=== PATIENT | male | born 1950 | race Caucasian/White ===

== ENCOUNTER → 2017-05-19 | Outpatient (CLI) | payer MEDICARE ==
[~2017-05-19] MED LIST: HYDR-3533 PO; METO50TA PO; TAMS0.4C4 PO; VIIB40TA PO
[2017-05-19 11:06] LABS: AUTOMATED NEUTROPHIL # 7.2 TH/MM3 (1.8-7.7); BASOPHIL # 0.1 TH/MM3 (0-0.2); BASOPHIL % 1.2 % (0.0-2.0); EOSINOPHIL # 0.1 TH/MM3 (0-0.4); EOSINOPHIL % 1.5 % (0.0-4.0); HEMATOCRIT 40.1 % (39.0-51.0); HEMO FLAGS DIFF FINAL; LYMPH % 8.4 % (9.0-44.0); LYMPHOCYTE # 0.8 TH/MM3 (1.0-4.8); MEAN CELL VOLUME 88.1 FL (80.0-100.0); MEAN CORPUSCULAR HEMOGLOBIN 28.8 PG (27.0-34.0); MEAN CORPUSCULAR HGB CONC 32.7 % (32.0-36.0); NEUT % 78.9 % (16.0-70.0); PLATELET COUNT 331 TH/MM3 (150-450); RED BLOOD COUNT 4.55 MIL/MM3 (4.50-5.90); RED CELL DISTRIBUTION WIDTH 15.9 % (11.6-17.2); WHITE BLOOD COUNT 9.1 TH/MM3 (4.0-11.0)
--- NOTE | 2017-05-19 11:16 | RADRPT ---
EXAM DATE/TIME: 05/19/2017 10:57 [place] COMPARISON: No previous studies available for comparison. INDICATIONS : Evaluate for peneumonia, pneumothorax, or communicable disease. Pre op for colectomy. MEDICAL HISTORY : None. SURGICAL HISTORY : None. ENCOUNTER: Initial ACUITY: 1 day PAIN SCORE: 0/10 LOCATION: chest FINDINGS: PA and lateral views of the chest demonstrate the lungs to be symmetrically aerated without evidence of mass, infiltrate or effusion. The cardiomediastinal contours are unremarkable. Osseous structure s demonstrate degenerative changes in thoracic spine but are otherwise intact. CONCLUSION: 1. No acute cardiopulmonary findings. Bao Lora MD on May 19, 2017 at 11:13 Board Certified Radiologist. This report was verified electronically.
[2017-05-19 11:21] LABS: APTT (PATIENT) 28.9 SEC (24.3-30.1); PROTHROMBIN TIME - PATIENT 11.2 SEC (9.8-11.6)
[2017-05-19 11:23] LABS: ANION GAP 6 MEQ/L (5-15); AST (GOT) 6 U/L (15-37); BICARBONATE 25.9 MEQ/L (21.0-32.0); BLOOD UREA NITROGEN 22 MG/DL (7-18); CHLORIDE 107 MEQ/L (98-107); GLOMERULAR FILTRATION RATE 88 ML/MIN (>89); GLUCOSE,FASTING 94 MG/DL (74-99); POTASSIUM 4.1 MEQ/L (3.5-5.1); SODIUM (NA) 139 MEQ/L (136-145)
[2017-05-19 11:24] LABS: ALT (GPT) 10 U/L (12-78)
[2017-05-19 11:26] LABS: ALKALINE PHOSPHATASE 106 U/L (45-117); TOTAL BILIRUBIN ADULT 0.3 MG/DL (0.2-1.0)
[2017-05-19 12:04] LABS: BLOOD, URINE NEG (NEG); COMMENT (UR) CULT NOT INDICATED; CULTURE IF INDICATED CULT NOT INDICATED; GLUCOSE,URINE NEG (NEG); HYALINE CAST, URINE 3 /lpf (RARE); KETONE, URINE NEG (NEG); MUCUS URINE MOD /lpf (OCC); NITRITE,URINE NEG (NEG); PH, URINE 5.5 (5.0-8.5); SQUAMOUS EPITHELIAL CELL URINE <1 /hpf (0-5); URINE COLOR YELLOW (YELLW/STRAW)
--- NOTE | 2017-05-19 20:10 | EKG ---
Date Performed: 05/19/2017 Time Performed: 10:23:30 PTAGE: 67 years EKG: Sinus rhythm INDETERMINATE AXIS POSSIBLE RIGHT VENTRICULAR CONDUCTION DELAY ABNORMAL ECG NO PREVIOUS TRACING DOCTOR: Harpreet Amos Interpretating Date/Time 05/19/2017 20:09:30
== END ==
LOC: CPRE 09:58
PROVIDERS: ATTEND Colon & Rectal Surgery
DX: Z01.812 Encounter for preprocedural laboratory examination (principal); Z01.810 Encounter for preprocedural cardiovascular examination; Z01.811 Encounter for preprocedural respiratory examination; C20 Malignant neoplasm of rectum; Z79.01 Long term (current) use of anticoagulants
CPT/HCPCS: 36415; 71020; 80053; 81001; 82378; 85025; 85610; 85730; 93005

== ENCOUNTER 2017-05-26 10:03 | Inpatient (IN) | payer MEDICARE ==
[~2017-05-26] VITALS: Ht 170.2 cm; Wt 60.0 kg
[~2017-05-26 10:03] MED LIST changes: -HYDR-3533 PO
--- NOTE | 2017-05-26 10:09 | MH ---
cc: MICHAEL MARTINEZ MD, AJAY K. M.D. RIVERA, MARI DR. TOLLAND, JOHN T. M.D. NAIR, SANTOSH DATE OF ADMISSION: 05/26/2017 CHIEF COMPLAINT: Rectal cancer. HISTORY OF PRESENT ILLNESS: This patient was first referred to me on January 25, 2017, the patient was a 66 year old male at that time, referred for a rectal cancer, they had just started radiation therapy and chemotherapy with Dr. Michael Martinez and Dr. Tobias Noel. His colonoscopy was done on December 03, 2016. Showing rectal adenocarcinoma. The patient completed his radiation therapy and chemotherapy on March 02, 2017. The patient has been very consciousness with his follow up with me. At his initial examination he had a bulky circumferential carcinoma of the rectum that went fairly low anteriorly. On my recent examination about six weeks ago I could still palpate the lesion, upper extent of my finger on digital examination it was circumferential, it was quite fixed posteriorly, anteriorly and laterally. It was still narrow and I could not put my finger through the lesion. It did feel as though the lesion was just above his prostate gland anteriorly which was small in size as well. Sigmoidoscopy was done, it was limited due to a lot of stool. As I mentioned the completion dates on his radiation therapy, chemotherapy was starting with January 12, 2017 and completed including the reduced field rectal boost on March 02, 2017. PAST MEDICAL HISTORY/FAMILY HISTORY/SOCIAL HISTORY/REVIEW OF SYSTEMS: All negative except that he smokes a pack per day for 40 years. MEDICATIONS: 1. Metoprolol 2. Tamsulosin 3. Vilazodone PHYSICAL EXAMINATION: IN GENERAL: A well-developed thin male, no acute distress. SKIN: The skin is warm and dry. HEAD, EARS, EYES, NOSE, AND THROAT: Extraocular muscles intact. NECK: The neck is supple. CHEST: The abdomen is flat, soft, nontender, no masses. RECTAL EXAMINATION: Revealed a circumferential rectal carcinoma with fixation, circumferentially, deletion is topically anterior above the prostate. EXTREMITIES: Range of motion are grossly normal. ASSESSMENT: Rectal carcinoma. PLAN: Recommend low anterior resection with possible colon anastomosis and diverting ileostomy. I told the patient I felt there was a 50% chance that this could be achieved, depending on the level of fixation and ability to resect the lesion. Otherwise I told him that a possible abdominal perineal resection with permanent colostomy could be possible. He understands all the risks, benefits and alternatives and wishes to proceed. MD ALAN Khan/breonna /9:27 AM /9:35 AM
[2017-05-26] MEDS ORDERED: MORPHINE SULFATE 4 MG/ML INJ IV ONE (12:00)
[2017-05-26] MEDS ORDERED: NORMOSOL R INJ 1,000 ML IV ONE (12:00)
[2017-05-26] MEDS ORDERED: LACTATED RINGER'S 1000 ML INJ 2,000 ML IV ONE (12:00)
[2017-05-26] MEDS ORDERED: DEXAMETHASONE SOD PHOS 4 MG/ML VIAL IV ONE (12:00)
[2017-05-26] MEDS ORDERED: DEXT 5%-NACL 0.9% 1000 ML INJ 1,000 ML IV SCH (12:00)
[2017-05-26] MEDS ORDERED: ONDANSETRON HCL 4 MG/2 ML VIAL IV PUSH ONE (12:00)
[2017-05-26] MEDS ORDERED: POVIDONE IODINE 5% (ANTISEPSIS KIT) 4 APPLICATIONS EACH NARE PRN (12:15)
[2017-05-26] MEDS ORDERED: CHLORHEXIDINE GLUCONATE 2 % 1 PACK (2 CLOTHS) TOPICAL PRN (12:15)
[2017-05-26] MEDS ORDERED: METOPROLOL TARTRATE 25 MG TAB PO PRN (12:15)
[2017-05-26] MEDS ORDERED: SODIUM CHLORID 0.9% 500 ML IV PRN (12:15)
[2017-05-26] MEDS ORDERED: METRONIDAZOLE 500 MG/100 ML ISONTONIC SOLN IV SCH (12:15)
[2017-05-26] MEDS ORDERED: LACTATED RINGER'S 1000 ML IV PRN (12:15)
[2017-05-26] MEDS ORDERED: INSULIN HUMAN REGULAR 1,000 UNITS/10 ML VIAL SQ PRN (12:15)
[2017-05-26] MEDS ORDERED: ALVIMOPAN 12 MG CAPSULE - On Call PO SCH (12:15)
[2017-05-26] MEDS ORDERED: ceFAZolin 1,000 MG/NS 100 ML IV SCH ×2 (12:15)
[2017-05-26] MEDS ORDERED: ACETAMINOPHEN 1000 MG/100 ML 100 ML IV ONE (13:07)
[2017-05-26] MEDS ORDERED: FAMOTIDINE 20 MG/2 ML VIAL ONE (13:07)
--- NOTE | 2017-05-26 13:12 | PD.HP.UP ---
H&P Update Note The Pre-Admit History and Physical Examination regarding the above named patient was reviewed (including, but not limited to, vital signs, heart, lungs, co-morbid conditions), and upon re-examination it is noted that: the patient's condition has not significantly changed since the last examination. Luca Geiger MD May 26, 2017 13:12
--- NOTE | 2017-05-26 14:20 | PD.OP ---
Operative Report Date of Surgery: May 26, 2017 Preoperative Diagnosis: Colon cancer Postoperative Diagnosis: Same Procedure: Cystoscopy with bilateral ureteral catheter placement Anesthesia: YUDY Surgeon: Augustine Pelayo Wafer Mounter(s): None Resident Surgeon: None Operation and Findings: 67-year-old male with findings of large colon mass consistent with colon cancer. Request for made for bilateral ureteral catheter placement preoperatively. Patient is brought to the operating room and identified by myself as Luca Lack[place]axen. His placement dorsal lithotomy position, prepped and draped in usual sterile fashion, received preprocedure antibiotics and general endotracheal tube anesthesia was administered. 22 Niuean cystoscope was inserted in the bladder and coaptation lobes the prostate were identified and some trabeculations were identified within the bladder. No other abnormalities were identified. Left ureteral orifice was cannulated with 5 Niuean open-ended catheter and a 0.35 sensor wire was used to assist its passage up into the left kidney. The right ureteral orifice was identified and a 5 Niuean catheter was inserted on the right side without any difficulty. 16 Niuean Han was inserted and the catheters were attached a Han. He tolerated the procedure well. Augustine Pelayo DO May 26, 2017 14:20
--- NOTE | 2017-05-26 15:43 | PD.OP ---
Operative Report Date of Surgery: May 26, 2017 Preoperative Diagnosis: Transected left ureter Postoperative Diagnosis: Same Procedure: Repair of left ureter with 3 anastomosis and left double-J stent insertion Surgeon: Augustine Pelayo Health Care Facilities Inspector(s): Dr. Collins and Dr. May Resident Surgeon: None Operation and Findings: 67-year-old male who was undergoing a left colon resection for a large sigmoid colon tumor which was abutting the left ureter. During the dissection the left ureter was inadvertently opened on its most medial aspect. The ureter was not entirely transected throughout. Urology was consult for placement of a left ureteral stent with repair and reanastomosis of the left ureter. The left ureter had been dissected out nicely by both Dr. Diana and Dr. May and the ureteral catheter was in place. This was removed in an antegrade fashion and then a 6 Georgian 22 cm left double-J stent was passed up to the proximal ureter over a wire and left in position. The wire was then removed and passed through the middle aspect of the stent through a small hole and then was fed down into the distal ureter. The wire was then removed leaving the stent in place. The defect was approximately 4 cm in length and both the proximal and distal end of the ureter was freed up to provide adequate length. 4-0 interrupted Chromic sutures were then used to close the ureter in an interrupted fashion. The closure appeared to be watertight. Adjacent mesenteric tissue was laid over the ureter and sewn down to reinforce the closure. The patient will maintain Han catheter for the next few days and then it indwelling left double-J stent warming in for 6 weeks. The patient will undergo a cystoscopy with left retrograde pullout study in 6 weeks. Augustine Pelayo DO May 26, 2017 15:43
[2017-05-26] MEDS ORDERED: SUGAMMADEX SODIUM 200 MG/2 ML VIAL IV PUSH ONE ×2 (16:26)
[2017-05-26] MEDS ORDERED: POTASSIUM CHLOR 20 MEQ PREMIX 100 ML IV PRN (17:00)
[2017-05-26] MEDS ORDERED: SODIUM CHLORIDE 0.9% FLUSH 10 ML FLUSH IV FLUSH PRN (17:00)
[2017-05-26] MEDS ORDERED: ENALAPRILAT 1.25 MG/ML VIAL IV PRN (17:00)
[2017-05-26] MEDS ORDERED: Post-op Orders (for Pharmacy) MISC XX ONE (17:00)
[2017-05-26] MEDS ORDERED: POTASSIUM CHLOR 40 MEQ PREMIX 100 ML IV PRN (17:00)
[2017-05-26] MEDS ORDERED: ONDANSETRON HCL 4 MG/2 ML VIAL IV PRN (17:00)
[2017-05-26] MEDS ORDERED: ZOLPIDEM TARTRATE 5 MG TAB PO PRN (17:00)
[2017-05-26] MEDS ORDERED: ACETAMINOPHEN/HYDROcodone 325 MG/5 MG TAB PO PRN (17:00)
[2017-05-26] MEDS ORDERED: NALOXONE HCL 0.4 MG/ML AMP IV PUSH PRN (17:00)
[2017-05-26] MEDS ORDERED: BENZOCAINE 6 MG/MENTHOL 10 MG LOZENGE BUCCAL PRN (17:00)
[2017-05-26] MEDS: D5-LR + KCL 20 MEQ INJ 1,000 ML IV SCH ×2 (17:24→21:12)
[2017-05-26] MEDS: MORPHINE SULFATE 30 MG/30 ML PCA IV SCH (17:24)
[2017-05-26] MEDS ORDERED: *morphine SULFATE 8 MG/ML PERIprocedure ONLY ONE ×2 (17:55→18:03)
[2017-05-26] MEDS: METOCLOPRAMIDE HCL 10 MG/2 ML VIAL IVS SCH ×2 (18:00→23:57)
[2017-05-26 18:21] LABS: AUTOMATED NEUTROPHIL # 11.3 TH/MM3 (1.8-7.7); BASOPHIL # 0.1 TH/MM3 (0-0.2); BASOPHIL % 0.7 % (0.0-2.0); EOSINOPHIL % 0.1 % (0.0-4.0); HEMATOCRIT 32.3 % (39.0-51.0); HEMO FLAGS DIFF FINAL; LYMPH % 2.2 % (9.0-44.0); LYMPHOCYTE # 0.3 TH/MM3 (1.0-4.8); MEAN CELL VOLUME 88.1 FL (80.0-100.0); MEAN CORPUSCULAR HEMOGLOBIN 29.8 PG (27.0-34.0); MEAN CORPUSCULAR HGB CONC 33.8 % (32.0-36.0); MONO % 3.9 % (0.0-8.0); NEUT % 93.1 % (16.0-70.0); PLATELET COUNT 278 TH/MM3 (150-450); RED BLOOD COUNT 3.67 MIL/MM3 (4.50-5.90); RED CELL DISTRIBUTION WIDTH 15.7 % (11.6-17.2); WHITE BLOOD COUNT 12.1 TH/MM3 (4.0-11.0)
[2017-05-26 18:46] LABS: BICARBONATE 24.1 MEQ/L (21.0-32.0); POTASSIUM 3.8 MEQ/L (3.5-5.1)
[2017-05-26 19:00] VITALS: BP 111/66; PULSE 81; PULSE 89; TEMP 97.5; O2SAT 95
[2017-05-26 19:02] LABS: CALCIUM-PROTEIN CORRECTED 8.2 MG/DL (8.5-10.1)
[2017-05-26] MEDS ORDERED: DO NOT ADM ANY ANTICOAGULANT DRUGS PRN (19:30)
[2017-05-26 20:00] VITALS: PULSE 88
[2017-05-26 21:00] VITALS: PULSE 80
[2017-05-26] MEDS ORDERED: [UNRECOGNIZED DRUG - OTHER] PO SCH (21:00)
[2017-05-26] MEDS ORDERED: NON-FORMULARY DRUG (Vilazodone (Viibryd) 40 MG) PO SCH (21:00)
[2017-05-26] MEDS: FUROSEMIDE 20 MG/2 ML VIAL IV SCH (21:13)
[2017-05-26] MEDS: TAMSULOSIN HCL 0.4 MG CAP PO SCH (21:13)
[2017-05-26] MEDS: METOPROLOL TARTRATE 50 MG TAB PO SCH (21:13)
[2017-05-26] MEDS: SODIUM CHLORIDE 0.9% FLUSH 10 ML FLUSH IV FLUSH SCH (21:13)
[2017-05-26] MEDS: metroNIDAZOLE 500 MG INJ 100 ML IV SCH (21:13)
[2017-05-26] MEDS: PCA - TOTAL MG MORPHINE DELIVERED PER SHIFT SCH (21:53)
[2017-05-26 22:00] VITALS: PULSE 74
[2017-05-26 23:00] VITALS: BP 103/56; PULSE 68; PULSE 74; TEMP 97.3; O2SAT 97
[2017-05-26] MEDS: [UNRECOGNIZED DRUG - OTHER] PO SCH (23:56)
[2017-05-27] VITALS (26 sets, daily range): BP systolic 99–126; BP diastolic 56–80; PULSE 56–92; RESP 16–18; TEMP 98.1–98.7; O2SAT 93–96
--- NOTE | 2017-05-27 00:09 | MP ---
cc: CORNELL LUQUE,KEREN CASH M.D., MD DATE OF SURGERY 05/26/2017 PREOPERATIVE DIAGNOSIS Rectal carcinoma. POSTOPERATIVE DIAGNOSIS 1. Rectal carcinoma. 2. hepatic metastasis. PROCEDURE 1. Rectosigmoidectomy with low anterior resection/coloanal anastomosis. 2. Resection and reanastomosis of the left ureter. 3. Wedge resection of hepatic metastasis. 4. Mobilization of the splenic flexure. 5. Diverting closed loop ileostomy. ANESTHESIA General endotracheal. SURGEON Dr. Geiger CARGO STATION WORKER Dr. Romero ESTIMATED BLOOD LOSS 500 cc. OPERATIVE FINDINGS This patient was initially seen with a diagnosis of a large rectal cancer and had preoperative radiation therapy and chemotherapy completed about 11 weeks ago. The patient initially had very small stools but then his stools started enlarging during the treatment but on preoperative examination by me in the office he still had a bulky fixed lesion posteriorly, laterally and anteriorly just above the prostate and the lumen was quite small. Initially, it was a long lesion, approximately 10 cm when the patient underwent endoscopy. Preoperative studies including PET scan and MRI and CT scan did not show any evidence of metastatic disease. At surgery exploration of the abdominal cavity revealed that the colon was palpably normal other than the rectal cancer and the small bowel was palpably normal as well. He did have a palpably normal gallbladder and just above the gallbladder really in the gallbladder fossa was a 1 cm hepatic metastasis. The fundus of the gallbladder was dissected free of the underside of the liver and a wedge resection of this hepatic metastasis was done. A full rectosigmoidectomy was done with a double stapled coloanal anastomosis and a fully diverting loop ileostomy was done. Dr. Augustine Pelayo placed bilateral ureteral catheters to start the case and then came back in and placed a double-J stent in the left ureter and reanastomosed the left ureter which was partially resected. OPERATIVE TECHNIQUE The patient was placed on the OR table in the supine position after adequate general endotracheal anesthesia. The legs were placed in the perineal lithotomy position. The abdomen and perineum were prepped and draped in usual manner. Midline incision was made from the pubis to the xiphoid taken down to the linea alba and the peritoneal cavity was entered with the above-mentioned findings. The lesion was in the midportion of the rectum. It was quite fixed to all the pelvic sidewall and posteriorly. Dr. Augustine Pelayo came in and placed bilateral ureteral catheters and had some difficulty placing the left one due to the lesion although there was no hydronephrosis. Once the catheters were placed we could palpate both ureters above the lesion but when we were dissecting down to the lesion we no longer could palpate the ureters or the stents. Our attention was turned to the sigmoid colon, the descending colon was mobilized along its peritoneal reflection and the splenic flexure was fully mobilized as well. Once this was done the superior hemorrhoidal vessels were doubly clamped, cut and doubly ligated with 0 Vicryl ligature and the inferior mesenteric vein was clamped, cut and ligated as well. The lateral pelvic peritoneum was incised bilaterally at the pelvic outlet and then the retrorectal space was entered with electrocautery and the dissection was taken down posteriorly in the avascular plane. The lesion was quite fixed with desmoplastic reaction posteriorly to the sacrum and laterally in the pelvis. We are able to slowly dissect down posteriorly and laterally mobilizing the lesion posteriorly. Laterally on the right side we are able to scythe along the right side of the pelvis palpating the ureteral catheter on the right side up to the tumor and then cutting through fibrotic, presumably desmoplastic tissue and dissecting the lesion off of the right ureter without any injury to the ureter. On the left side of we were again able to palpate the ureter and the ureteral catheter above the lesion and in entering the pelvis scything along the pelvis. We thought that we were able to get the lesion off of the ureter, in doing so the ureter was scythed on one wall and the stent was visible. It seemed to be tumor around this portion of the ureter and the dissection was carried out fully mobilizing the rectum down to the pelvic floor and a total mesenteric excision of the rectal mesentery was done. Once the posterior and lateral dissection was done the anterior dissection was taken and the right vas deferens was identified, after first dissecting anterior to the vas we could find the plane between the vas deferens and the rectum and the plane between the prostate and the rectum and was dissected with electrocautery to the pelvic floor. Once this was done the contour stapling device was used to staple close and divide the rectum just above the pelvic floor. The specimen was brought up out of the pelvis en bloc with a total mesenteric excision as mentioned. Next, Dr. Augustine Pelayo was called back into the room to inspect the ureter which had a portion of one wall excised and the proximal part of the ureter seemed to have tumor encasing it and the distal end of the proximal part was excised for about a centimeter. Also portion of the inferior portion of the ureter was excised up. The ureter was mobilized superiorly and inferiorly and then Dr. Augustine Pelayo placed a double-J stent up into the renal pelvis and then down into the bladder and then reanastomosed the ureter with interrupted 4-0 chromic sutures. He will dictate his portion of the procedure. Once this was completed, we went ahead and plan on the anastomosis using an Ethicon 29 EEA stapling device and the trocar was brought out through the central portion of the low rectal staple line and the anvil was placed in the sigmoid after the sigmoid mesentery was clamped, cut and ligated and the sigmoid was divided after placing a pursestring stapling device. Once that anvil was placed and the pursestring was tied the anvil was connected to the stapling instrument and the instrument was connected, closed and fired creating the circular anastomosis. There was no tension on the anastomosis. The blood supply was excellent. Dr. Romero then did proctosigmoidoscopy examination insufflating air into the rectum with saline solution in the pelvis and no air leaks were identified. Hemostasis was maintained throughout with electrocautery and ligature. A place for ileostomy was created in the right lower quadrant creating a stoma site in the lateral portion of the rectus muscle and the mesentery of the small bowel chosen for the stoma was cleared from the bowel for approximately 2 cm. Next, our attention was turned to the liver and the fundus of the gallbladder was dissected free of the superior liver bed and then the 1 cm liver metastases was excised in a wedge shape with electrocautery. The gallbladder was left intact and hemostasis was maintained with electrocautery once again. A piece of fibrillar was placed on the fundus of the gallbladder to stop the oozing. Next, a drain was placed through a separate stab wound in the left lower quadrant and placed on the retroactive space. The ileostomy was brought out through the stoma site and the abdominal cavity was irrigated thoroughly with approximately 3-4 liters of saline solution and aspirated dry. Hemostasis was again inspected and the bowels were replaced in abdominal cavity in an arrt technologist manner and then the abdominal cavity was closed in a single layer using a double-stranded #1 PDS in the midline. The subcutaneous tissue was irrigated with a liter and half of saline solution and the skin was closed with skin alethea. The ileostomy was matured with interrupted 3-0 Vicryl sutures creating an end loop ileostomy and the distal end was stapled closed with a TX 60 Green staple height stapler since it had been previously opened. A 57-mm appliance was placed. Sponge, needle and instrument counts were poor as correct. Dressings were applied. The patient tolerated the procedure well and left the operating room in good condition. MD ALAN Khan/PARAM /5:21 PM /11:32 PM
[2017-05-27] MEDS: D5-LR + KCL 20 MEQ INJ 1,000 ML IV SCH ×4 (03:00→15:56)
[2017-05-27] MEDS: metroNIDAZOLE 500 MG INJ 100 ML IV SCH ×2 (04:59→11:50)
[2017-05-27] MEDS: METOCLOPRAMIDE HCL 10 MG/2 ML VIAL IVS SCH ×3 (04:59→17:42)
[2017-05-27] MEDS: PCA - TOTAL MG MORPHINE DELIVERED PER SHIFT SCH ×3 (06:00→21:20)
[2017-05-27 06:25] LABS: AUTOMATED NEUTROPHIL # 13.2 TH/MM3 (1.8-7.7); BASOPHIL % 0.1 % (0.0-2.0); HEMATOCRIT 31.1 % (39.0-51.0); HEMO FLAGS DIFF FINAL; LYMPH % 1.9 % (9.0-44.0); LYMPHOCYTE # 0.3 TH/MM3 (1.0-4.8); MEAN CELL VOLUME 88.5 FL (80.0-100.0); MEAN CORPUSCULAR HEMOGLOBIN 28.6 PG (27.0-34.0); MEAN CORPUSCULAR HGB CONC 32.3 % (32.0-36.0); MONO % 6.6 % (0.0-8.0); NEUT % 91.4 % (16.0-70.0); PLATELET COUNT 289 TH/MM3 (150-450); RED BLOOD COUNT 3.51 MIL/MM3 (4.50-5.90); RED CELL DISTRIBUTION WIDTH 15.6 % (11.6-17.2); WHITE BLOOD COUNT 14.5 TH/MM3 (4.0-11.0)
[2017-05-27 06:50] LABS: POTASSIUM 4.7 MEQ/L (3.5-5.1)
[2017-05-27] MEDS: FUROSEMIDE 20 MG/2 ML VIAL IV SCH ×2 (08:51→21:00)
[2017-05-27] MEDS: METOPROLOL TARTRATE 50 MG TAB PO SCH ×2 (08:51→21:01)
[2017-05-27] MEDS: ALVIMOPAN 12 MG CAPSULE - Post-op dosing PO SCH ×2 (08:51→21:00)
[2017-05-27] MEDS: PANTOPRAZOLE SODIUM 40 MG VIAL IVP SCH (08:51)
[2017-05-27] MEDS: SODIUM CHLORIDE 0.9% FLUSH 10 ML FLUSH IV FLUSH SCH ×2 (08:52→21:00)
[2017-05-27] MEDS ORDERED: D5-LR + KCL 20 MEQ INJ 1,000 ML IV SCH (11:58)
--- NOTE | 2017-05-27 12:09 | HHI.PR ---
Subjective Patient symptoms today Pt seen and examined. Feels well. Urine blood tinged. Objective Vital Signs Vital Signs Date Time Temp Pulse Resp B/P (MAP) Pulse Ox O2 Delivery O2 Flow Rate FiO2 05/27/17 11:44 98.2 63 18 99/56 (70) 93 05/27/17 11:03 62 05/27/17 10:00 62 05/27/17 09:00 63 05/27/17 08:00 62 05/27/17 07:30 98.3 60 18 106/80 (89) 96 05/27/17 07:30 58 05/27/17 06:28 56 05/27/17 06:00 20 05/27/17 05:35 56 05/27/17 04:00 58 05/27/17 03:00 98.4 64 109/57 (74) 94 05/27/17 03:00 61 05/27/17 02:00 60 05/27/17 01:00 60 05/27/17 00:00 66 05/26/17 23:00 68 05/26/17 23:00 97.3 74 103/56 (72) 97 05/26/17 22:00 74 05/26/17 21:53 16 05/26/17 21:00 80 05/26/17 20:44 Nasal Cannula 3.00 05/26/17 20:00 88 05/26/17 19:00 97.5 81 111/66 (81) 95 05/26/17 19:00 89 05/26/17 18:30 97.6 87 22 118/57 (77) 94 Nasal Cannula 3 05/26/17 18:15 82 13 120/57 (78) 94 Nasal Cannula 3 05/26/17 18:00 78 15 124/58 (80) 96 Nasal Cannula 3 05/26/17 17:45 80 17 130/61 (84) 94 Nasal Cannula 3 05/26/17 17:30 80 15 128/60 (82) 97 Nasal Cannula 3 05/26/17 17:24 16 05/26/17 17:15 78 15 134/63 (86) 98 Nasal Cannula 3 05/26/17 17:00 81 18 122/63 (82) 98 Nasal Cannula 3 05/26/17 16:53 97.5 82 18 122/62 (82) 98 Nasal Cannula 3 Intake & Output 05/27/17 05/27/17 07:00 19:00 Intake Total 3840 ml Output Total 1280 ml Balance 2560 ml Intake Oral 240 ml IV Total 3600 ml Output Urine Total 1200 ml Drainage Total 80 ml Result Diagram: 05/27/1760705/27/17607 Objective Remarks Abd:soft,incisional tenderness Han: blood tinged urine. Medications and IVs Current Medications Medications (Trade) Dose Ordered Sig/[place] Route Start Time Stop Time Status Last Admin Lactated Ringer's 1,000 ml @ 30 mls/hr Q24H PRN IV 05/26/17 12:15 05/29/17 12:14 05/26/17 11:45 Sodium Chloride 500 ml @ 30 mls/hr [id number] PRN IV 05/26/17 12:15 05/29/17 12:14 (Lopressor) 25 mg FILLER SHREDDER MACHINE PRN PO 05/26/17 12:15 05/29/17 12:14 (Betadine 5% Antisepsis Kit) 1 applic FILLER SHREDDER MACHINE PRN EACH NARE 05/26/17 12:15 05/29/17 12:14 05/26/17 11:55 (Chlorhexidine 2% Cloth) 3 pack FILLER SHREDDER MACHINE PRN TOPICAL 05/26/17 12:15 05/29/17 12:14 05/26/17 11:25 (NovoLIN R INJ) See Protocol Table ... FILLER SHREDDER MACHINE PRN SQ 05/26/17 12:15 05/29/17 12:14 (Entereg) 12 mg FILLER SHREDDER MACHINE PO 05/26/17 12:15 05/29/17 12:14 05/26/17 12:13 (Entereg) 12 mg BID PO 05/27/17 09:00 06/02/17 21:01 05/27/17 08:51 Cefazolin Sodium 1000 mg/Sodium Chloride 100 ml @ 200 mls/hr FILLER SHREDDER MACHINE IV 05/26/17 12:15 05/29/17 12:14 05/26/17 12:23 Metronidazole 100 ml @ 100 mls/hr FILLER SHREDDER MACHINE IV 05/26/17 12:15 05/27/17 12:14 05/26/17 12:30 Potassium Cl/ Dextrose/Lact Ringer's 1,000 ml @ 0 mls/hr Q0M IV 05/26/17 16:59 05/27/17 08:51 (NS Flush) 2 ml UNSCH PRN IV FLUSH 05/26/17 17:00 (NS Flush) 2 ml BID IV FLUSH 05/26/17 21:00 05/27/17 08:52 Metronidazole 100 ml @ 200 mls/hr Q8H IV 05/26/17 20:00 05/27/17 12:29 05/27/17 11:50 ([place]ora 5-325 Mg) 1 tab Q4H PRN PO 05/26/17 17:00 ([place]ora 5-325 Mg) 2 tab Q4H PRN PO 05/26/17 17:00 (Protonix Inj) 40 mg DAILY IVP 05/27/17 09:00 05/27/17 08:51 (Reglan Inj) 10 mg Q6HR IVS 05/26/17 18:00 05/27/17 04:59 (Zofran Inj) 4 mg Q6H PRN IV 05/26/17 17:00 (Vasotec Inj) 1.25 mg Q4H PRN IV 05/26/17 17:00 (Ambien) 5 mg HS PRN PO 05/26/17 17:00 (Chloraseptic [place]ota) 1 lozenge UNSCH PRN BUCCAL 05/26/17 17:00 (Lasix Inj) 20 mg Q12HR IV 05/26/17 21:00 05/29/17 09:01 05/27/17 08:51 Potassium Chloride 100 ml @ 50 mls/hr UNSCH PRN IV 05/26/17 17:00 Potassium Chloride 100 ml @ 25 mls/hr UNSCH PRN IV 05/26/17 17:00 (Narcan Inj) 0.4 mg UNSCH PRN IV PUSH 05/26/17 17:00 (Morphine 1 Mg/ ml HEEL COVER SPLITTER) 30 mg UNSCH IV 05/26/17 17:00 05/26/17 17:24 HEEL COVER SPLITTER Dosage Infused (Pha) 1 Q8HR .XX 05/26/17 17:00 05/27/17 06:00 (Lopressor) 50 mg BID PO 05/26/17 21:00 05/27/17 08:51 (Flomax) 0.4 mg HS PO 05/26/17 21:00 05/26/17 21:13 Miscellaneous Information ALL NURSING DEPARTME... UNSCH PRN .XX 05/26/17 19:30 05/27/17 19:29 Patient Own Medication PT OWN MED: [id number]... HS PO 05/26/17 22:00 05/26/17 23:56 Assessment and Plan Assessment and Plan Stable s/p Ex-lap with colon resection and repair of right transected ureter Void trial in the next few days Will need cysto with left RPG and stent removal in 6 weeks. Augustine Pelayo DO May 27, 2017 12:09
--- NOTE | 2017-05-27 16:13 | PD.WCN.NOT ---
Wound Consult Description: New Ostomy Teaching for temporary ileostomy and supplies per Dr Geiger Communicated with: Patient Patient at bedside MARII Morton RN Recommendation: Observe staff open pouch, empty pouch, close pouch. Read information in ileostomy kit provided regarding diet, food, supplies, support groups, clothing and ostomy appliances available. Write down any questions you may have regarding ileostomy or supplies etc. Additional Information: Patient seen on [facility] for ostomy assessment and teaching. Ostomy Type: Ileostomy Surgeon: Luca Geiger MD Date of Surgery: May 26, 2017 Complete: Education materials Educated patient on: Observe staff open pouch, empty pouch, close pouch. Read information in ileostomy kit provided regarding diet, food, supplies, support groups, clothing and ostomy appliances available. Write down any questions you may have regarding ileostomy or supplies etc. Additional information Ileostomy noted to right abdomen is pale pink, moist, round, long protruding, lumen noted in center and towards 7 o'clock, functioning with mucus and sanguinous/clear liquid noted in pouch. Stoma was measured using stoma guide 1 /8" indicating the patient will need supplies ordered in size 1 3/4" with open ended pouch for emptying which will be ordered today from [facility]. Patients had a few questions that were answered regarding the binder and diet that were answered. Patient will be followed up on Tuesday05/30/17. Kerry Thomas [facility] May 27, 2017 16:13
[2017-05-27] MEDS ORDERED: ALVIMOPAN 12 MG CAPSULE PO SCH (21:00)
[2017-05-27] MEDS: TAMSULOSIN HCL 0.4 MG CAP PO SCH (21:00)
[2017-05-27] MEDS: MORPHINE SULFATE 30 MG/30 ML PCA IV SCH (21:01)
[2017-05-27] MEDS: [UNRECOGNIZED DRUG - OTHER] PO SCH (21:01)
--- NOTE | 2017-05-27 21:55 | HHI.PR ---
Subjective Remarks C/R Surg POD #1 afebrile, VSS UO good ROXANN serous Objective - Vital Signs Date Time Temp Pulse Resp B/P (MAP) Pulse Ox O2 Delivery O2 Flow Rate FiO2 05/27/17 21:20 18 05/27/17 18:00 75 05/27/17 15:02 98.1 112/63 (79) 94 05/26/17 20:44 Nasal Cannula 3.00 Result Diagram: 05/27/17 0608 05/27/17 0608 Other Results PE alert Abd - soft, min tympany, wound dry A/P Assessment and Plan Imp: stable post-op OOB decr IVF stoma teaching Delfino Jerome MD May 27, 2017 21:55
[2017-05-28] VITALS (12 sets, daily range): BP systolic 113–140; BP diastolic 60–75; PULSE 70–94; RESP 14–22; TEMP 96.7–99.2; O2SAT 90–96
[2017-05-28] MEDS: METOCLOPRAMIDE HCL 10 MG/2 ML VIAL IVS SCH ×5 (00:11→23:30)
[2017-05-28] MEDS: PCA - TOTAL MG MORPHINE DELIVERED PER SHIFT SCH ×3 (06:00→21:58)
[2017-05-28 06:07] LABS: AUTOMATED NEUTROPHIL # 11.6 TH/MM3 (1.8-7.7); BASOPHIL % 0.4 % (0.0-2.0); EOSINOPHIL % 0.2 % (0.0-4.0); HEMATOCRIT 32.1 % (39.0-51.0); HEMO FLAGS DIFF FINAL; LYMPH % 3.5 % (9.0-44.0); LYMPHOCYTE # 0.5 TH/MM3 (1.0-4.8); MEAN CELL VOLUME 88.3 FL (80.0-100.0); MEAN CORPUSCULAR HEMOGLOBIN 28.6 PG (27.0-34.0); MEAN CORPUSCULAR HGB CONC 32.4 % (32.0-36.0); MONO % 8.3 % (0.0-8.0); NEUT % 87.6 % (16.0-70.0); PLATELET COUNT 259 TH/MM3 (150-450); RED BLOOD COUNT 3.64 MIL/MM3 (4.50-5.90); RED CELL DISTRIBUTION WIDTH 15.6 % (11.6-17.2); WHITE BLOOD COUNT 13.3 TH/MM3 (4.0-11.0)
[2017-05-28 07:13] LABS: BICARBONATE 26.7 MEQ/L (21.0-32.0); POTASSIUM 4.1 MEQ/L (3.5-5.1)
[2017-05-28] MEDS: SODIUM CHLORIDE 0.9% FLUSH 10 ML FLUSH IV FLUSH SCH ×2 (09:00→21:00)
[2017-05-28] MEDS: ALVIMOPAN 12 MG CAPSULE - Post-op dosing PO SCH ×2 (11:03→21:58)
[2017-05-28] MEDS: FUROSEMIDE 20 MG/2 ML VIAL IV SCH ×2 (11:03→21:58)
[2017-05-28] MEDS: METOPROLOL TARTRATE 50 MG TAB PO SCH ×2 (11:03→21:58)
[2017-05-28] MEDS: PANTOPRAZOLE SODIUM 40 MG VIAL IVP SCH (11:04)
--- NOTE | 2017-05-28 11:49 | HHI.PR ---
Subjective Patient symptoms today Pt seen and examined. at bedside. No complaints. Mild incisional pain but controlled. Objective Vital Signs Vital Signs Date Time Temp Pulse Resp B/P (MAP) Pulse Ox O2 Delivery O2 Flow Rate FiO2 05/28/17 08:00 98.6 87 18 126/66 (86) 95 05/28/17 06:00 96.7 83 20 123/60 (81) 90 05/28/17 06:00 19 05/28/17 04:29 70 05/28/17 03:49 98.3 81 131/75 (93) 96 05/28/17 03:00 74 05/28/17 02:00 84 05/28/17 01:18 98.5 82 129/67 (87) 94 05/28/17 01:00 74 05/28/17 00:00 86 05/27/17 23:00 73 05/27/17 22:00 78 05/27/17 21:20 18 05/27/17 21:20 18 05/27/17 21:01 18 05/27/17 21:00 80 05/27/17 20:00 98.7 90 126/66 (86) 93 05/27/17 20:00 92 05/27/17 19:00 79 05/27/17 18:00 75 05/27/17 17:00 69 05/27/17 16:07 67 05/27/17 15:02 98.1 63 16 112/63 (79) 94 05/27/17 15:01 63 05/27/17 14:29 87 05/27/17 14:00 18 05/27/17 13:24 63 05/27/17 12:14 83 Intake & Output 05/28/17 05/28/17 07:00 19:00 Intake Total 240 ml Output Total 2180 ml Balance -1940 ml Intake Oral 240 ml Output Urine Total 2150 ml Drainage Total 30 ml Result Diagram: 05/28/1752405/28/17524 Objective Remarks Abd:soft,incisional tenderness Han: blood tinged urine. 05/28 Abd:soft,binder in place, incisional tenderness ROXANN with serous fluid Han: blood tinged urine Medications and IVs Current Medications Medications (Trade) Dose Ordered Sig/[place] Route Start Time Stop Time Status Last Admin (Entereg) 12 mg BID PO 05/27/17 09:00 06/02/17 21:01 05/28/17 11:03 (NS Flush) 2 ml UNSCH PRN IV FLUSH 05/26/17 17:00 (NS Flush) 2 ml BID IV FLUSH 05/26/17 21:00 05/27/17 08:52 ([place] 5-325 Mg) 1 tab Q4H PRN PO 05/26/17 17:00 ([place] 5-325 Mg) 2 tab Q4H PRN PO 05/26/17 17:00 (Protonix Inj) 40 mg DAILY IVP 05/27/17 09:00 05/28/17 11:04 (Reglan Inj) 10 mg Q6HR IVS 05/26/17 18:00 05/28/17 05:19 (Zofran Inj) 4 mg Q6H PRN IV 05/26/17 17:00 (Vasotec Inj) 1.25 mg Q4H PRN IV 05/26/17 17:00 (Ambien) 5 mg HS PRN PO 05/26/17 17:00 (Chloraseptic [place]) 1 lozenge UNSCH PRN BUCCAL 05/26/17 17:00 (Lasix Inj) 20 mg Q12HR IV 05/26/17 21:00 05/29/17 09:01 05/28/17 11:03 Potassium Chloride 100 ml @ 50 mls/hr UNSCH PRN IV 05/26/17 17:00 Potassium Chloride 100 ml @ 25 mls/hr UNSCH PRN IV 05/26/17 17:00 (Narcan Inj) 0.4 mg UNSCH PRN IV PUSH 05/26/17 17:00 (Morphine 1 Mg/ ml MARINE ELECTRICIAN APPRENTICE) 30 mg UNSCH IV 05/26/17 17:00 05/27/17 21:01 MARINE ELECTRICIAN APPRENTICE Dosage Infused (Pha) 1 Q8HR .XX 05/26/17 17:00 05/28/17 06:00 (Lopressor) 50 mg BID PO 05/26/17 21:00 05/28/17 11:03 (Flomax) 0.4 mg HS PO 05/26/17 21:00 05/27/17 21:00 Patient Own Medication PT OWN MED: VIIBRYD... HS PO 05/26/17 22:00 05/27/17 21:01 Potassium Cl/ Dextrose/Lact Ringer's 1,000 ml @ 83 mls/hr Q12H3M IV 05/28/17 16:59 Assessment and Plan Assessment and Plan Stable s/p Ex-lap with colon resection and repair of right transected ureter Void trial in the next few days Will need cysto with left RPG and stent removal in 6 weeks. 05/28 Stable s/p Ex-lap with colon resection and repair of right transected ureter Continue Han drainage for now and monitor ROXANN output Creatinine stable at 0.82. Augustine Pelayo DO May 28, 2017 11:49
[2017-05-28] MEDS ORDERED: D5-LR + KCL 20 MEQ INJ 1,000 ML IV SCH ×2 (16:59)
[2017-05-28] MEDS: D5-LR + KCL 20 MEQ INJ 1,000 ML IV SCH (17:03)
[2017-05-28] MEDS: TAMSULOSIN HCL 0.4 MG CAP PO SCH (21:58)
[2017-05-28] MEDS: MORPHINE SULFATE 30 MG/30 ML PCA IV SCH (23:26)
[2017-05-28] MEDS: [UNRECOGNIZED DRUG - OTHER] PO SCH (23:28)
[2017-05-29] VITALS (8 sets, daily range): BP systolic 100–130; BP diastolic 52–70; PULSE 79–88; RESP 14–22; TEMP 96.9–99.9; O2SAT 91–94
[2017-05-29] MEDS: D5-LR + KCL 20 MEQ INJ 1,000 ML IV SCH ×3 (05:13→17:35)
[2017-05-29] MEDS: PCA - TOTAL MG MORPHINE DELIVERED PER SHIFT SCH ×3 (05:14→22:00)
[2017-05-29] MEDS: METOCLOPRAMIDE HCL 10 MG/2 ML VIAL IVS SCH ×4 (05:16→23:48)
--- NOTE | 2017-05-29 08:19 | HHI.PR ---
Subjective Patient symptoms today Pt seen and examined. Feels well. Han with blood tinged urine. Objective Vital Signs Vital Signs Date Time Temp Pulse Resp B/P (MAP) Pulse Ox O2 Delivery O2 Flow Rate FiO2 05/29/17 05:19 Nasal Cannula 05/29/17 05:14 18 05/29/17 04:00 96.9 80 14 129/63 (85) 91 05/29/17 00:00 97.3 88 14 121/70 (87) 91 05/28/17 23:31 18 05/28/17 23:26 18 05/28/17 21:58 18 05/28/17 20:00 98.8 94 14 140/74 (96) 92 05/28/17 16:00 98.9 86 20 120/66 (84) 95 05/28/17 14:00 20 05/28/17 12:00 99.2 90 22 113/66 (82) 91 Intake & Output 05/29/17 05/29/17 07:00 19:00 Intake Total 2623 ml Output Total 1540 ml Balance 1083 ml Intake Oral 740 ml IV Total 1883 ml Output Urine Total 1400 ml Drainage Total 140 ml # Voids 1 # Bowel Movements 0 Result Diagram: 05/28/1752405/28/17524 Objective Remarks Abd:soft,incisional tenderness Han: blood tinged urine. 05/28 Abd:soft,binder in place, incisional tenderness ROXANN with serous fluid Han: blood tinged urine 05/29 Abd:soft,binder in place, incisional tenderness ROXANN with serous fluid: 130cc Han: blood tinged urine Medications and IVs Current Medications Medications (Trade) Dose Ordered Sig/[place] Route Start Time Stop Time Status Last Admin (Entereg) 12 mg BID PO 05/27/17 09:00 06/02/17 21:01 05/28/17 21:58 (NS Flush) 2 ml UNSCH PRN IV FLUSH 05/26/17 17:00 (NS Flush) 2 ml BID IV FLUSH 05/26/17 21:00 05/27/17 08:52 ([place] 5-325 Mg) 1 tab Q4H PRN PO 05/26/17 17:00 ([place] 5-325 Mg) 2 tab Q4H PRN PO 05/26/17 17:00 (Protonix Inj) 40 mg DAILY IVP 05/27/17 09:00 05/28/17 11:04 (Reglan Inj) 10 mg Q6HR IVS 05/26/17 18:00 05/29/17 05:16 (Zofran Inj) 4 mg Q6H PRN IV 05/26/17 17:00 (Vasotec Inj) 1.25 mg Q4H PRN IV 05/26/17 17:00 (Ambien) 5 mg HS PRN PO 05/26/17 17:00 (Chloraseptic [place]) 1 lozenge UNSCH PRN BUCCAL 05/26/17 17:00 (Lasix Inj) 20 mg Q12HR IV 05/26/17 21:00 05/29/17 09:01 05/28/17 21:58 Potassium Chloride 100 ml @ 50 mls/hr UNSCH PRN IV 05/26/17 17:00 Potassium Chloride 100 ml @ 25 mls/hr UNSCH PRN IV 05/26/17 17:00 (Narcan Inj) 0.4 mg UNSCH PRN IV PUSH 05/26/17 17:00 (Morphine 1 Mg/ ml BOOKMOBILE CLERK) 30 mg UNSCH IV 05/26/17 17:00 05/28/17 23:26 BOOKMOBILE CLERK Dosage Infused (Pha) 1 Q8HR .XX 05/26/17 17:00 05/29/17 05:14 (Lopressor) 50 mg BID PO 05/26/17 21:00 05/28/17 21:58 (Flomax) 0.4 mg HS PO 05/26/17 21:00 05/28/17 21:58 Patient Own Medication PT OWN MED: VIIBRYD... HS PO 05/26/17 22:00 05/28/17 23:28 Potassium Cl/ Dextrose/Lact Ringer's 1,000 ml @ 83 mls/hr Q12H3M IV 05/28/17 12:00 05/29/17 05:13 Assessment and Plan Assessment and Plan Stable s/p Ex-lap with colon resection and repair of right transected ureter Void trial in the next few days Will need cysto with left RPG and stent removal in 6 weeks. 05/28 Stable s/p Ex-lap with colon resection and repair of right transected ureter Continue Han drainage for now and monitor ROXANN output Creatinine stable at 0.82. 05/29 Stable s/p Ex-lap with colon resection and repair of right transected ureter Continue Han drainage for now and monitor ROXANN output Will send ROXANN for creatinine; if normal will plan for void trial in AM. Augustine Pelayo DO May 29, 2017 08:19
[2017-05-29] MEDS: ALVIMOPAN 12 MG CAPSULE - Post-op dosing PO SCH ×2 (08:59→20:41)
[2017-05-29] MEDS: FUROSEMIDE 20 MG/2 ML VIAL IV SCH (09:00)
[2017-05-29] MEDS: METOPROLOL TARTRATE 50 MG TAB PO SCH ×2 (09:00→20:41)
[2017-05-29] MEDS: PANTOPRAZOLE SODIUM 40 MG VIAL IVP SCH (09:01)
[2017-05-29] MEDS: SODIUM CHLORIDE 0.9% FLUSH 10 ML FLUSH IV FLUSH SCH ×2 (09:01→20:41)
[2017-05-29] MEDS: MORPHINE SULFATE 30 MG/30 ML PCA IV SCH (13:23)
[2017-05-29] MEDS: RESP: ALBUTEROL 2.5 MG/3 ML NEB (SCH) INH ×2 (16:02→19:17)
[2017-05-29] MEDS: TAMSULOSIN HCL 0.4 MG CAP PO SCH (20:40)
[2017-05-29] MEDS: [UNRECOGNIZED DRUG - OTHER] PO SCH (20:46)
[2017-05-30] VITALS (10 sets, daily range): BP systolic 109–128; BP diastolic 54–63; PULSE 73–94; RESP 16–18; TEMP 98.7–99.6; O2SAT 87–95
[2017-05-30] MEDS: METOCLOPRAMIDE HCL 10 MG/2 ML VIAL IVS SCH ×4 (05:22→22:15)
[2017-05-30] MEDS: D5-LR + KCL 20 MEQ INJ 1,000 ML IV SCH ×2 (05:22→16:33)
[2017-05-30] MEDS: PCA - TOTAL MG MORPHINE DELIVERED PER SHIFT SCH ×3 (06:00→22:00)
[2017-05-30] MEDS: RESP: ALBUTEROL 2.5 MG/3 ML NEB (SCH) INH ×4 (07:14→19:42)
--- NOTE | 2017-05-30 08:53 | HHI.PR ---
Subjective Patient symptoms today Pt feels better. Urine clearing. Han removed this AM. Objective Vital Signs Vital Signs Date Time Temp Pulse Resp B/P (MAP) Pulse Ox O2 Delivery O2 Flow Rate FiO2 05/30/17 07:17 93 Nasal Cannula 3.00 05/30/17 06:00 18 05/30/17 06:00 18 05/30/17 00:00 99.6 83 18 117/63 (81) 94 05/29/17 22:00 18 05/29/17 20:36 18 05/29/17 20:36 94 Nasal Cannula 2.00 05/29/17 20:00 99.9 82 18 117/59 (78) 94 05/29/17 19:18 91 Nasal Cannula 3.00 05/29/17 16:00 99.9 82 22 112/62 (79) 91 05/29/17 13:40 14 05/29/17 13:23 14 05/29/17 12:00 98.8 79 16 130/64 (86) 93 05/29/17 09:40 Nasal Cannula 2.50 Intake & Output 05/30/17 05/30/17 07:00 19:00 Intake Total 933 ml Output Total 1210 ml Balance -277 ml Intake Oral 240 ml IV Total 693 ml Output Urine Total 450 ml Stool Total 700 ml Drainage Total 60 ml Result Diagram: 05/28/1752405/28/17524 Objective Remarks Abd:soft,incisional tenderness Han: blood tinged urine. 05/28 Abd:soft,binder in place, incisional tenderness ROXANN with serous fluid Han: blood tinged urine 05/29 Abd:soft,binder in place, incisional tenderness ROXANN with serous fluid: 130cc Han: blood tinged urine 05/30 Abd:soft,nt,nd Han clearing; removed at bedside Medications and IVs Current Medications Medications (Trade) Dose Ordered Sig/[place] Route Start Time Stop Time Status Last Admin (Entereg) 12 mg BID PO 05/27/17 09:00 06/02/17 21:01 05/29/17 20:41 (NS Flush) 2 ml UNSCH PRN IV FLUSH 05/26/17 17:00 (NS Flush) 2 ml BID IV FLUSH 05/26/17 21:00 05/29/17 20:41 ([place] 5-325 Mg) 1 tab Q4H PRN PO 05/26/17 17:00 ([place] 5-325 Mg) 2 tab Q4H PRN PO 05/26/17 17:00 (Protonix Inj) 40 mg DAILY IVP 05/27/17 09:00 05/29/17 09:01 (Reglan Inj) 10 mg Q6HR IVS 05/26/17 18:00 05/30/17 05:22 (Zofran Inj) 4 mg Q6H PRN IV 05/26/17 17:00 (Vasotec Inj) 1.25 mg Q4H PRN IV 05/26/17 17:00 (Ambien) 5 mg HS PRN PO 05/26/17 17:00 (Chloraseptic [place]) 1 lozenge UNSCH PRN BUCCAL 05/26/17 17:00 Potassium Chloride 100 ml @ 50 mls/hr UNSCH PRN IV 05/26/17 17:00 Potassium Chloride 100 ml @ 25 mls/hr UNSCH PRN IV 05/26/17 17:00 (Narcan Inj) 0.4 mg UNSCH PRN IV PUSH 05/26/17 17:00 (Morphine 1 Mg/ ml MOTOR VEHICLE PARTS INTERPRETER) 30 mg UNSCH IV 05/26/17 17:00 05/29/17 13:23 MOTOR VEHICLE PARTS INTERPRETER Dosage Infused (Pha) 1 Q8HR .XX 05/26/17 17:00 05/30/17 06:00 (Lopressor) 50 mg BID PO 05/26/17 21:00 05/29/17 20:41 (Flomax) 0.4 mg HS PO 05/26/17 21:00 05/29/17 20:40 Patient Own Medication PT OWN MED: VIIBRYD... HS PO 05/26/17 22:00 05/29/17 20:46 Potassium Cl/ Dextrose/Lact Ringer's 1,000 ml @ 83 mls/hr Q12H3M IV 05/28/17 12:00 05/30/17 05:22 (Albuterol Neb) 2.5 mg QID NEB INH 05/29/17 13:00 05/30/17 07:14 Assessment and Plan Assessment and Plan Stable s/p Ex-lap with colon resection and repair of right transected ureter Void trial in the next few days Will need cysto with left RPG and stent removal in 6 weeks. 05/28 Stable s/p Ex-lap with colon resection and repair of right transected ureter Continue Han drainage for now and monitor ROXANN output Creatinine stable at 0.82. 05/29 Stable s/p Ex-lap with colon resection and repair of right transected ureter Continue Han drainage for now and monitor ROXANN output Will send ROXANN for creatinine; if normal will plan for void trial in AM. 05/30 Stable s/p Ex-lap with colon resection and repair of right transected ureter Han removed. ROXANN fluid creatinine 0.7 Void trial today Augustine Pelayo DO May 30, 2017 08:53
[2017-05-30] MEDS: SODIUM CHLORIDE 0.9% FLUSH 10 ML FLUSH IV FLUSH SCH ×2 (09:00→21:00)
[2017-05-30] MEDS: METOPROLOL TARTRATE 50 MG TAB PO SCH ×2 (09:00→22:14)
[2017-05-30] MEDS: PANTOPRAZOLE SODIUM 40 MG VIAL IVP SCH (10:08)
[2017-05-30] MEDS: ALVIMOPAN 12 MG CAPSULE - Post-op dosing PO SCH ×2 (10:09→22:15)
[2017-05-30] MEDS: PSYLLIUM FIBER SF/GF 6 GM POWD PKT PO SCH ×2 (13:27→18:00)
--- NOTE | 2017-05-30 13:56 | PD.WCN.NOT ---
Wound Consult Description: New Ostomy Teaching for temporary ileostomy and supplies per Dr Geiger Communicated with: Patient Patient Recommendation: Observe staff open pouch, empty pouch, close pouch. Read information in ileostomy kit provided regarding diet, food, supplies, support groups, clothing and ostomy appliances available. Practice attaching the barrier to the pouch, opening and closing the pouch, and removing the pouch from the barrier in the kit provided. Write down any questions you may have regarding ileostomy or supplies etc. Call insurance company to inform them of the ileostomy and obtain name of supplier for appliances prior to discharge. Additional Information: Patient seen on for ileostomy assessment. Ostomy Type: Ileostomy Surgeon: Luca Geiger MD Date of Surgery: May 26, 2017 Complete: Education materials, Rx (On chart ), Other (4 appliances at bedside in size 1 3/4" for patient to take home at discharge.) Educated patient on: Patient shown how to open and close pouch from bottom, and how to separate pouch from flange (low pressure adaptor) at top to release air from pouch. We discussed how to remove barrier from skin using adhesive removal wipes, how to cleanse the peristomal skin with water only, and how to thoroughly dry the skin and prepare the barrier for application to abdomen. Patient demonstrated how he can open pouch at bottom and close pouch as well as attach pouch to barrier. Plans made to change out appliance with patient and at bedside on Tuesday05/31/17. Additional information Stoma is noted to right lower abdomen measuring 1 1/8" round, pink, moist, lumen noted at 5 o'clock with long protrusion, functioning with dark green effluent (~350ml emptied), sutures noted to mucocutaneous junction other alves unremarkable. Barrier and pouch are intact without leaks noted. Pouch removed from barrier for full visualization and assessment of stoma and mucocutaneous junction today. [facility] May 30, 2017 13:56
[2017-05-30] MEDS: MORPHINE SULFATE 30 MG/30 ML PCA IV SCH (16:34)
[2017-05-30] MEDS: TAMSULOSIN HCL 0.4 MG CAP PO SCH (22:14)
[2017-05-30] MEDS: [UNRECOGNIZED DRUG - OTHER] PO SCH (22:15)
[2017-05-31] VITALS (7 sets, daily range): BP systolic 110–128; BP diastolic 56–84; PULSE 75–94; RESP 16–17; TEMP 97.8–99.3; O2SAT 92–94
[2017-05-31] MEDS: D5-LR + KCL 20 MEQ INJ 1,000 ML IV SCH ×2 (04:30→16:30)
[2017-05-31] MEDS: METOCLOPRAMIDE HCL 10 MG/2 ML VIAL IVS SCH ×3 (06:28→16:30)
[2017-05-31] MEDS: PCA - TOTAL MG MORPHINE DELIVERED PER SHIFT SCH (06:30)
[2017-05-31 06:51] LABS: AUTOMATED NEUTROPHIL # 6.6 TH/MM3 (1.8-7.7); BASOPHIL # 0.1 TH/MM3 (0-0.2); BASOPHIL % 0.7 % (0.0-2.0); EOSINOPHIL # 0.2 TH/MM3 (0-0.4); EOSINOPHIL % 2.9 % (0.0-4.0); HEMATOCRIT 29.1 % (39.0-51.0); HEMO FLAGS DIFF FINAL; LYMPH % 4.3 % (9.0-44.0); LYMPHOCYTE # 0.3 TH/MM3 (1.0-4.8); MEAN CELL VOLUME 87.2 FL (80.0-100.0); MEAN CORPUSCULAR HEMOGLOBIN 29.3 PG (27.0-34.0); MEAN CORPUSCULAR HGB CONC 33.6 % (32.0-36.0); MONO % 11.1 % (0.0-8.0); PLATELET COUNT 245 TH/MM3 (150-450); RED BLOOD COUNT 3.33 MIL/MM3 (4.50-5.90); RED CELL DISTRIBUTION WIDTH 15.7 % (11.6-17.2); WHITE BLOOD COUNT 8.1 TH/MM3 (4.0-11.0)
[2017-05-31 07:20] LABS: BICARBONATE 24.8 MEQ/L (21.0-32.0); POTASSIUM 4.3 MEQ/L (3.5-5.1)
[2017-05-31] MEDS: RESP: ALBUTEROL 2.5 MG/3 ML NEB (SCH) INH ×4 (08:27→19:58)
[2017-05-31] MEDS: SODIUM CHLORIDE 0.9% FLUSH 10 ML FLUSH IV FLUSH SCH ×2 (09:00→21:00)
[2017-05-31] MEDS: PSYLLIUM FIBER SF/GF 6 GM POWD PKT PO SCH ×3 (09:34→16:30)
[2017-05-31] MEDS: METOPROLOL TARTRATE 50 MG TAB PO SCH ×2 (09:34→21:00)
[2017-05-31] MEDS: PANTOPRAZOLE SODIUM 40 MG VIAL IVP SCH (09:34)
[2017-05-31] MEDS: ALVIMOPAN 12 MG CAPSULE - Post-op dosing PO SCH ×2 (09:34→21:51)
--- NOTE | 2017-05-31 13:05 | HHI.PR ---
Subjective Patient symptoms today Pt seen and examined. Han out and voiding. Pain controlled. Objective Vital Signs Vital Signs Date Time Temp Pulse Resp B/P (MAP) Pulse Ox O2 Delivery O2 Flow Rate FiO2 05/31/17 09:30 92 3.00 05/31/17 08:30 92 Nasal Cannula 3.00 05/31/17 08:00 97.8 78 16 128/84 (99) 92 05/31/17 06:30 16 05/31/17 00:40 98.4 76 16 116/59 (78) 92 05/31/17 00:00 Nasal Cannula 3.00 05/30/17 22:05 16 05/30/17 22:05 Nasal Cannula 3.00 05/30/17 22:00 16 05/30/17 20:00 98.8 94 16 126/60 (82) 92 05/30/17 20:00 Nasal Cannula 3.00 05/30/17 19:55 87 Room Air 3.00 05/30/17 16:34 18 05/30/17 16:15 92 Nasal Cannula 3.00 05/30/17 16:00 99.4 88 18 128/60 (82) 95 05/30/17 14:00 18 Intake & Output 05/31/17 05/31/17 07:00 19:00 Intake Total 993 ml Output Total 1000 ml 30 ml Balance -7 ml -30 ml IV Total 993 ml Output Urine Total 400 ml Stool Total 600 ml Drainage Total 30 ml Result Diagram: 05/31/1744705/31/17447 Objective Remarks Abd:soft,incisional tenderness Han: blood tinged urine. 05/28 Abd:soft,binder in place, incisional tenderness ROXANN with serous fluid Han: blood tinged urine 05/29 Abd:soft,binder in place, incisional tenderness ROXANN with serous fluid: 130cc Han: blood tinged urine 05/30 Abd:soft,nt,nd Han clearing; removed at bedside 05/31 Abd:soft,nt,nd ROXANN with 30cc Medications and IVs Current Medications Medications (Trade) Dose Ordered Sig/[place] Route Start Time Stop Time Status Last Admin (Entereg) 12 mg BID PO 05/27/17 09:00 06/02/17 21:01 05/31/17 09:34 (NS Flush) 2 ml UNSCH PRN IV FLUSH 05/26/17 17:00 (NS Flush) 2 ml BID IV FLUSH 05/26/17 21:00 05/29/17 20:41 ([place] 5-325 Mg) 1 tab Q4H PRN PO 05/26/17 17:00 ([place] 5-325 Mg) 2 tab Q4H PRN PO 05/26/17 17:00 (Protonix Inj) 40 mg DAILY IVP 05/27/17 09:00 05/31/17 09:34 (Reglan Inj) 10 mg Q6HR IVS 05/26/17 18:00 05/31/17 06:28 (Zofran Inj) 4 mg Q6H PRN IV 05/26/17 17:00 (Vasotec Inj) 1.25 mg Q4H PRN IV 05/26/17 17:00 (Ambien) 5 mg HS PRN PO 05/26/17 17:00 (Chloraseptic [place]) 1 lozenge UNSCH PRN BUCCAL 05/26/17 17:00 Potassium Chloride 100 ml @ 50 mls/hr UNSCH PRN IV 05/26/17 17:00 Potassium Chloride 100 ml @ 25 mls/hr UNSCH PRN IV 05/26/17 17:00 (Narcan Inj) 0.4 mg UNSCH PRN IV PUSH 05/26/17 17:00 (Morphine 1 Mg/ ml ENCODING MACHINE OPERATOR) 30 mg UNSCH IV 05/26/17 17:00 05/30/17 16:34 ENCODING MACHINE OPERATOR Dosage Infused (Pha) 1 Q8HR .XX 05/26/17 17:00 05/31/17 06:30 (Lopressor) 50 mg BID PO 05/26/17 21:00 05/31/17 09:34 (Flomax) 0.4 mg HS PO 05/26/17 21:00 05/30/17 22:14 Patient Own Medication PT OWN MED: VIIBRYD... HS PO 05/26/17 22:00 05/30/17 22:15 Potassium Cl/ Dextrose/Lact Ringer's 1,000 ml @ 83 mls/hr Q12H3M IV 05/28/17 12:00 05/31/17 04:30 (Albuterol Neb) 2.5 mg QID NEB INH 05/29/17 13:00 05/31/17 12:27 (Metamucil Smooth Texture Sf/ Gf Pkt) 1 pkt TID PO 05/30/17 13:00 05/31/17 09:34 Assessment and Plan Assessment and Plan Stable s/p Ex-lap with colon resection and repair of right transected ureter Void trial in the next few days Will need cysto with left RPG and stent removal in 6 weeks. 05/28 Stable s/p Ex-lap with colon resection and repair of right transected ureter Continue Han drainage for now and monitor ROXANN output Creatinine stable at 0.82. 05/29 Stable s/p Ex-lap with colon resection and repair of right transected ureter Continue Han drainage for now and monitor ROXANN output Will send ROXANN for creatinine; if normal will plan for void trial in AM. 05/30 Stable s/p Ex-lap with colon resection and repair of right transected ureter Han removed. ROXANN fluid creatinine 0.7 Void trial today 926 Stable s/p Ex-lap with colon resection and repair of right transected ureter Han removed yesterday and voiding well. Pt to f/u as outpt for cysto/stent removal with retrograde study in 6 weeks Augustine Pelayo DO May 31, 2017 13:05
--- NOTE | 2017-05-31 14:53 | PD.WCN.NOT ---
Wound Consult Description: New Ostomy Teaching for temporary ileostomy and supplies per Dr Geiger Communicated with: Patient Recommendation: Observe staff open pouch, empty pouch, close pouch. Participate in the emptying of the pouch of effluent. Ensure the pouch is closed after emptying. Additional Information: Patient seen earlier today for ostomy teaching, assessment of ostomy, and appliance change. Ostomy Type: Ileostomy Surgeon: Luca Geiger MD Date of Surgery: May 26, 2017 Complete: Education materials, Rx (On chart ), Other (4 appliances at bedside in size 1 3/4" for patient to take home at discharge.) Educated patient on: When to empty pouch of effluent. How to assess barrier for leaks. Knowing when to change barrier. Removing barrier with adhesive removal wipes. Inspecting barrier after removal for breakdown and possible leak areas. Cleanse peristomal skin with water and soft cloths. Measuring stoma for proper barrier selection. Warming barrier prior to application. How to apply the low pressure adaptor if needed. Applying pouch to the flange on the barrier. Closing the pouch. Additional information Patient was seen today from [id number] on [address] Patient was assisted in the removal and application of new barrier and pouch using appliance in size 1 3/4" . Stoma visualized is red, round, moist, has a long protrusion towards 10 o'clock , with lumen noted @ 4 o'clock and functioning with green soft effluent noted in pouch that was changed today 05/31/17. Kerry [facility] May 31, 2017 14:53
--- NOTE | 2017-05-31 17:28 | HHI.PR ---
Subjective Remarks No N or V. Stooling thru Ileostomy Objective Vital Signs Date Time Temp Pulse Resp B/P (MAP) Pulse Ox O2 Delivery O2 Flow Rate FiO2 05/31/17 16:00 99.3 94 17 119/58 (78) 92 05/31/17 12:00 99.1 75 16 126/62 (83) 94 05/31/17 09:30 92 3.00 05/31/17 08:30 92 Nasal Cannula 3.00 05/31/17 08:00 97.8 78 16 128/84 (99) 92 05/31/17 06:30 16 05/31/17 00:40 98.4 76 16 116/59 (78) 92 05/31/17 00:00 Nasal Cannula 3.00 05/30/17 22:05 16 05/30/17 22:05 Nasal Cannula 3.00 05/30/17 22:00 16 05/30/17 20:00 98.8 94 16 126/60 (82) 92 05/30/17 20:00 Nasal Cannula 3.00 05/30/17 19:55 87 Room Air 3.00 I/O 05/30/17 05/30/17 05/30/17 05/31/17 05/31/17 05/31/17 07:00 15:00 23:00 07:00 15:00 23:00 Intake Total 933 ml 1379 ml 993 ml 818 ml Output Total 1180 ml 590 ml 1000 ml 30 ml Balance -247 ml 789 ml -7 ml -30 ml 818 ml Intake Oral 240 ml 1200 ml IV Total 693 ml 179 ml 993 ml 818 ml Output Urine Total 450 ml 400 ml Stool Total 700 ml 500 ml 600 ml Drainage Total 30 ml 90 ml 30 ml # Voids 3 Result Diagram: 05/31/1744705/31/178 Objective Remarks VS-S Abd: flat,soft,stoma pink. Assessment and Plan Assessment and Plan Stable POD#5 Continue present tx. Luca Geiger MD May 31, 2017 17:28
[2017-05-31] MEDS: ACETAMINOPHEN/HYDROcodone 325 MG/5 MG TAB PO PRN (17:59)
[2017-05-31] MEDS: [UNRECOGNIZED DRUG - OTHER] PO SCH (21:00)
[2017-05-31] MEDS: TAMSULOSIN HCL 0.4 MG CAP PO SCH (21:51)
[2017-06-01] VITALS: BP 120/56; PULSE 70; RESP 22; TEMP 97.6; O2SAT 94
[2017-06-01] MEDS: ACETAMINOPHEN/HYDROcodone 325 MG/5 MG TAB PO PRN ×2 (00:41→09:08)
[2017-06-01] MEDS: METOCLOPRAMIDE HCL 10 MG/2 ML VIAL IVS SCH ×2 (05:25)
[2017-06-01 08:00] VITALS: BP 136/62; PULSE 83; RESP 17; TEMP 97.8; O2SAT 92
[2017-06-01] MEDS: RESP: ALBUTEROL 2.5 MG/3 ML NEB (SCH) INH (08:35)
[2017-06-01 08:46] VITALS: O2SAT 98
[2017-06-01] MEDS: SODIUM CHLORIDE 0.9% FLUSH 10 ML FLUSH IV FLUSH SCH (09:00)
[2017-06-01] MEDS: PANTOPRAZOLE SODIUM 40 MG VIAL IVP SCH (09:03)
[2017-06-01] MEDS: ALVIMOPAN 12 MG CAPSULE - Post-op dosing PO SCH (09:03)
[2017-06-01] MEDS: METOPROLOL TARTRATE 50 MG TAB PO SCH (09:03)
[2017-06-01] MEDS: PSYLLIUM FIBER SF/GF 6 GM POWD PKT PO SCH (09:09)
--- NOTE | 2017-06-01 10:47 | HHI.FF ---
Face to Face Verification Diagnosis: (1) Ileostomy in place (2) Cancer of rectum Home Health Nursing Order: Medical education Wound care and dressing changes Nursing assessment with vital signs Instructions: Ileostomy supplies and teaching I have seen patient Luca Armendariz on 06/01/17. My clinical findings support the need for the requested home health care services because: Ltd mobility - disease progression Deconditioned w/ increased weakness Limited ability to care for self Need for psychosocial assistance High risk of falls I certify that my clinical findings support that this patient is homebound because: Post-op weakness Hx COPD- exertion dyspnea/weakness Unsteady gait/balance Unsafe to leave home unassisted Luca Geiger MD Jun 01, 2017 10:47
[2017-06-01] MEDS ORDERED: HYDR-3533 PO (11:09)
== END 2017-06-01 11:47 | disposition home health service (06) | DRG 330 ==
LOC: HSDI 11:07 → EDUNIT# 13:30 → HCIN 18:40 → N07A 05-28 05:58
PROVIDERS: ADMIT Colon & Rectal Surgery; ATTEND Colon & Rectal Surgery
PROC: 0TQ70ZZ Repair Left Ureter, Open Approach (ICD-10-PCS; 2017-05-26)
PROC: 0TU Urinary System, Supplement (ICD-10-PCS; 2017-05-26)
PROC: 0FB00ZZ Excision of Liver, Open Approach (ICD-10-PCS; 2017-05-26)
PROC: 0DTP0ZZ Resection of Rectum, Open Approach (ICD-10-PCS; 2017-05-26)
PROC: 0T788DZ Dilation of Bilateral Ureters with Intraluminal Device, Via Natural or Artificial Opening Endoscopic (ICD-10-PCS; 2017-05-26)
PROC: 0TP98DZ Removal of Intraluminal Device from Ureter, Via Natural or Artificial Opening Endoscopic (ICD-10-PCS; 2017-05-26)
PROC: 0T9780Z Drainage of Left Ureter with Drainage Device, Via Natural or Artificial Opening Endoscopic (ICD-10-PCS; 2017-05-26)
PROC: 0DJD8ZZ Inspection of Lower Intestinal Tract, Via Natural or Artificial Opening Endoscopic (ICD-10-PCS; 2017-05-26)
PROC: 0DTN0ZZ Resection of Sigmoid Colon, Open Approach (ICD-10-PCS; principal; 2017-05-26 13:35)
PROC: 0D1B0Z4 Bypass Ileum to Cutaneous, Open Approach (ICD-10-PCS; 2017-05-26 13:35)
DX: C20 Malignant neoplasm of rectum (principal); N99.72 Accidental puncture and laceration of a genitourinary system organ or structure during other procedure; C78.7 Secondary malignant neoplasm of liver and intrahepatic bile duct; F17.210 Nicotine dependence, cigarettes, uncomplicated; Z92.3 Personal history of irradiation; Z92.21 Personal history of antineoplastic chemotherapy; Y83.3 Surgical operation with formation of external stoma as the cause of abnormal reaction of the patient, or of later complication, without mention of misadventure at the time of the procedure; Y92.234 Operating room of hospital as the place of occurrence of the external cause
CPT/HCPCS: 80048; 82570; 84155; 85025; 86850; 86900; 86901; 88305; 88307; 88309; 94640; 94664; C1769; C9113; J0131; J0690; J1100; J1940; J2270; J2405; J2765; J3010; J3480; J7120; J7613

== ENCOUNTER 2017-06-17 08:49 | Inpatient (IN) | payer MEDICARE ==
[~2017-06-17] VITALS: Ht 170.2 cm; Wt 51.4 kg
[~2017-06-17 08:49] MED LIST changes: +HYDR-3533 PO
[2017-06-17] MEDS ORDERED: DIATRIZOATE MEGLUM/DIATRIZOATE SOD 9 ML CUP PO ONE (10:30)
[2017-06-17 11:01] LABS: AUTOMATED NEUTROPHIL # 14.8 TH/MM3 (1.8-7.7); BASOPHIL % 0.3 % (0.0-2.0); HEMATOCRIT 41.7 % (39.0-51.0); LYMPH % 2.3 % (9.0-44.0); LYMPHOCYTE # 0.4 TH/MM3 (1.0-4.8); MEAN CELL VOLUME 82.7 FL (80.0-100.0); MEAN CORPUSCULAR HEMOGLOBIN 27.2 PG (27.0-34.0); MEAN CORPUSCULAR HGB CONC 32.9 % (32.0-36.0); MONO % 7.8 % (0.0-8.0); NEUT % 89.6 % (16.0-70.0); PLATELET COUNT 562 TH/MM3 (150-450); RED BLOOD COUNT 5.05 MIL/MM3 (4.50-5.90); RED CELL DISTRIBUTION WIDTH 15.6 % (11.6-17.2); WHITE BLOOD COUNT 16.5 TH/MM3 (4.0-11.0)
[2017-06-17 11:05] LABS: HEMO FLAGS AUTO DIFF
[2017-06-17 11:08] LABS: BICARBONATE 18.6 MEQ/L (21.0-32.0)
[2017-06-17 11:09] LABS: POTASSIUM 5.1 MEQ/L (3.5-5.1)
[2017-06-17 11:24] VITALS: BP 163/91; PULSE 107; RESP 18; TEMP 96.2; O2SAT 98
[2017-06-17 12:00] LABS: BANDS 8 % (0-6); METAMYELOCYTES 1 % (0-1); MYELOCYTES 1 % (0-0); NEUTROPHIL # MANUAL DIFF 14.7 TH/MM3 (1.8-7.7); POLYS (SEG NEUTROPHILS) 79 % (16-70); TOXIC GRANULATION 1+ (NORMAL); TOXIC VACUOLATION PRESENT (NONE SEEN); WBC DIFF SAMPLE 100
[2017-06-17] MEDS ORDERED: CIPROFLOXACIN/DEXT 400 MG/200 ML IV ONE (12:00)
[2017-06-17] MEDS: DEXTROSE 5%-LACTATED RING INJ 1,000 ML IV SCH ×3 (12:00→18:45)
[2017-06-17 12:01] LABS: PLATELET ESTIMATE SMEAR HIGH (NORMAL); PLATELET MORPHOLOGY ENLARGED (NORMAL); SCAN/DIFF FINAL DIFF MANUAL
[2017-06-17 13:06] LABS: BACTERIA, URINE FEW /hpf; BLOOD, URINE LARGE (NEG); COMMENT (UR) CULTURE INDICATED; CULTURE IF INDICATED CULTURE INDICATED; GLUCOSE,URINE NEG (NEG); HYALINE CAST, URINE 9 /lpf (RARE); KETONE, URINE NEG (NEG); MUCUS URINE FEW /lpf (OCC); NITRITE,URINE NEG (NEG); PH, URINE 5.5 (5.0-8.5); SQUAMOUS EPITHELIAL CELL URINE 3 /hpf (0-5)
[2017-06-17 13:10] LABS: URINE COLOR LIGHT-RED (YELLW/STRAW)
[2017-06-17] MEDS ORDERED: IOHEXOL 350 MG/ML 10 ML VIAL (for RAD DIAG) IVCONTRAST ONE (13:41)
[2017-06-17 14:27] VITALS: BP 147/72; PULSE 85; RESP 18; TEMP 96.7; O2SAT 98
--- NOTE | 2017-06-17 15:11 | RADRPT ---
EXAM DATE/TIME: 06/17/2017 13:35 [place] COMPARISON: No previous studies available for comparison. INDICATIONS : Abdominal pain 3 weeks status post low anterior resection, ureteral resection, left ureteral stent. IV CONTRAST: 90 cc Omnipaque 350 (iohexol) IV ORAL CONTRAST: No oral contrast ingested. RADIATION DOSE: 4.86 CTDIvol (mGy) MEDICAL HISTORY : Carcinoma, rectal. Hernia, inguinal. Hypertension. SURGICAL HISTORY : Appendectomy. LAR ENCOUNTER: Initial ACUITY: 3 weeks PAIN SCALE: 4/10 LOCATION: Bilateral lower quadrant TECHNIQUE: Volumetric scanning of the abdomen and pelvis was performed. Using automated exposure control and ad justment of the mA and/or kV according to patient size, radiation dose was kept as low as reasonably achievable to obtain optimal diagnostic quality images. DICOM format image data is available electro nically for review and comparison. FINDINGS: Minimal bibasilar parenchymal changes are evident. The liver, spleen and pancreas are unremarkable There is dilatation of the distal small bowel and compared to proximal. The distal small bowel is di lated to 3 cm. There is no ascites. There is no free air. Stent is present in the left ureter. Right kidney is unremarkable There is no hydronephrosis. Moderate vascular calcifications are evident. Colostomy is seen in the right lower quadrant. Pelvic contents show some mild induration consistent with the surgical history. CONCLUSION: Dilatation of distal small bowel when compared to proximal. Minimal colonic gas is e vident.. Zone of transition appears to be in the right lower quadrant. I can see the transition but not etiology for such. Alfredo Lora MD FACR on June 17, 2017 at 14:56 Board Certified Radiologist. This report was verified electronically.
[2017-06-17] MEDS ORDERED: LACTATED RINGER'S 1000 ML INJ 1,000 ML IV ONE (15:15)
--- NOTE | 2017-06-17 16:04 | MH ---
cc: CURRY JURADO M.D. DATE OF ADMISSION: 06/17/2017 CHIEF COMPLAINT: Weakness, abdominal pain, nausea HISTORY OF PRESENT ILLNESS: This patient is approximately 3 weeks status post low anterior resection with low colorectal anastomosis, diverting ileostomy and resection of a segment of the left ureter with ureteral anastomosis and double-J stent placement by Dr. Augustine Pelayo. The patient has done well postoperatively and about ten to twelve days postop I saw him in the office and removed his skin alethea. He was doing well at that time. He was trying to get his energy back, eating, moving his bowels and was not having any problems. He said over the last five or six days, he began feeling abdominal discomfort and more weak and he has been spending more time in bed. He says the pain medication that he took causes him to be tired so he does not move around as much. His appetite is decreased. He has not had high output from his ileostomy. He says that he has been eating less and drinking less however. 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 At the time of his surgery, it was a difficult dissection resecting this because of the pelvic sidewall adherence and the adherence to the left ureter. In dissecting it from the left ureter, a portion of the ureter was entered even with the ureteral stents present. We resected the ureter thinking that there could be some tumor associated with the ureter as well and a short segment and it was resected and then Dr. Augustine Pelayo re- anastomosed the ureter and placed left-sided double-J stent. Of note, he did have one small 1 cm hepatic metastasis in his liver that was excised as well. PHYSICAL EXAMINATION: GENERAL: Well-developed and well-nourished male in some distress with mild abdominal discomfort and weakness. SKIN: Warm and dry. HEAD, EYES, EARS, NOSE, THROAT: Extraocular muscles intact. NECK: The neck is supple. CHEST: Clear. ABDOMEN: Abdomen is flat, soft, essentially nontender. No masses. The ileostomy is functioning well. His wound is healing well. RECTAL EXAM: Inspection within normal limits. The digital exam is normal. I can feel the low coloanal anastomosis. Flexible sigmoidoscopy in the office was normal. EXTREMITIES: Range of motion within normal limits. NEUROLOGIC: Grossly normal. IMPRESSION: 1. Three weeks status post left colectomy with coloanal anastomosis and diverting ileostomy. 2. Wedge resection of the liver metastasis. 3. Partial resection of the left ureter with anastomosis and placement of double-J stent. 4. Probable urinary tract infection postop with mild dehydration. PLAN: I admitted the patient to the hospital for IV hydration. His BUN was slightly elevated at 40 and his creatinine was slightly elevated 1.2. A CT scan of the abdomen and pelvis was obtained and was basically normal other than the postop changes. He did have a mild ileus or obstructive pattern in the distal ileum; however, the patient is having ileostomy output. I have started him on Cipro empirically for probable urinary tract infection since he has a double-J stent present and an elevated white count of 16,000. I will follow him up but Dr. Romero will follow him over the weekend in the hospital avionics manager. MD ALAN Khan/DEMETRICE /3:32 PM /3:45 PM
[2017-06-17 17:00] LABS: AUTOMATED NEUTROPHIL # 11.6 TH/MM3 (1.8-7.7); BASOPHIL % 0.3 % (0.0-2.0); HEMO FLAGS DIFF FINAL; LYMPH % 2.5 % (9.0-44.0); LYMPHOCYTE # 0.3 TH/MM3 (1.0-4.8); MEAN CELL VOLUME 83.2 FL (80.0-100.0); MEAN CORPUSCULAR HEMOGLOBIN 27.2 PG (27.0-34.0); MEAN CORPUSCULAR HGB CONC 32.7 % (32.0-36.0); MONO % 9.6 % (0.0-8.0); NEUT % 87.6 % (16.0-70.0); PLATELET COUNT 495 TH/MM3 (150-450); RED BLOOD COUNT 4.57 MIL/MM3 (4.50-5.90); RED CELL DISTRIBUTION WIDTH 15.4 % (11.6-17.2); WHITE BLOOD COUNT 13.2 TH/MM3 (4.0-11.0)
[2017-06-17 17:05] LABS: APTT (PATIENT) 28.7 SEC (24.3-30.1); INTERNATIONAL NORMALIZED RATIO 1.1 RATIO; PROTHROMBIN TIME - PATIENT 12.3 SEC (9.8-11.6)
[2017-06-17 17:13] LABS: TOTAL BILIRUBIN ADULT 0.6 MG/DL (0.2-1.0)
[2017-06-17 18:43] LABS: LACTIC ACID GHOST NOT REPORTABLE
[2017-06-17 20:05] VITALS: BP 160/88; PULSE 100; RESP 18; TEMP 98.9; O2SAT 98
[2017-06-17] MEDS ORDERED: METOPROLOL TARTRATE 50 MG TAB PO ONE (22:00)
[2017-06-17] MEDS ORDERED: cloNIDine HCL 0.1 MG TAB PO PRN (22:00)
[2017-06-17] MEDS: ACETAMINOPHEN/HYDROcodone 325 MG/5 MG TAB PO PRN (22:02)
[2017-06-17] MEDS: ONDANSETRON HCL 4 MG/2 ML VIAL IV PUSH PRN (22:02)
[2017-06-18] VITALS (50 sets, daily range): BP systolic 75–158; BP diastolic 44–100; PULSE 104–146; RESP 18–42; TEMP 98.5–99.9; O2SAT 38–100
[2017-06-18] MEDS: DEXTROSE 5%-LACTATED RING INJ 1,000 ML IV SCH ×2 (03:17→09:57)
[2017-06-18] MEDS ORDERED: METOPROLOL TARTRATE 25 MG TAB PO SCH (03:45)
[2017-06-18] MEDS ORDERED: DILTIAZEM 125 MG/NS 100 ML IV PRN ×2 (03:45)
[2017-06-18] MEDS: METOPROLOL TARTRATE 5 MG/5 ML VIAL IV PUSH PRN ×2 (05:04→07:15)
[2017-06-18] MEDS ORDERED: CHLORHEXIDINE GLUCONATE 2 % 1 PACK (2 CLOTHS)(extra cloths) TOPICAL PRN (05:45)
[2017-06-18 06:24] LABS: AUTOMATED NEUTROPHIL # 12.4 TH/MM3 (1.8-7.7); BASOPHIL # 0.1 TH/MM3 (0-0.2); BASOPHIL % 0.4 % (0.0-2.0); HEMATOCRIT 39.6 % (39.0-51.0); LYMPH % 2.2 % (9.0-44.0); LYMPHOCYTE # 0.3 TH/MM3 (1.0-4.8); MEAN CELL VOLUME 83.2 FL (80.0-100.0); MEAN CORPUSCULAR HEMOGLOBIN 27.2 PG (27.0-34.0); MEAN CORPUSCULAR HGB CONC 32.7 % (32.0-36.0); MONO % 9.7 % (0.0-8.0); NEUT % 87.7 % (16.0-70.0); PLATELET COUNT 601 TH/MM3 (150-450); RED BLOOD COUNT 4.76 MIL/MM3 (4.50-5.90); RED CELL DISTRIBUTION WIDTH 15.5 % (11.6-17.2); WHITE BLOOD COUNT 14.1 TH/MM3 (4.0-11.0)
[2017-06-18 06:32] LABS: BICARBONATE 18.1 MEQ/L (21.0-32.0); HEMO FLAGS AUTO DIFF; POTASSIUM 4.3 MEQ/L (3.5-5.1)
[2017-06-18] MEDS ORDERED: METOPROLOL TARTRATE 50 MG TAB PO SCH (09:00)
--- NOTE | 2017-06-18 09:20 | PD.CONS ---
HPI Service [facility] Hospitalists Consult Requested By Dr. Geiger Reason for Consult Tachycardia, medical management Primary Care Physician Non-Staff Diagnoses: (1) Tachycardia (2) Hypertension (3) Leukocytosis (4) UTI (urinary tract infection) (5) Acute kidney injury (6) Cancer of rectum (7) Ileostomy in place (8) Sepsis History of Present Illness The patient is a 67-year-old male who is approximately 3 weeks status post low anterior resection with low colorectal anastomosis, diverting ileostomy, and resection of a segment of the left ureter with ureteral anastomosis and double- J stent placement. He is currently admitted to the ICU on the colorectal surgery service. Hospitalist consultation was requested for medical management and evaluation of tachycardia. The patient has been having increased weakness and poor oral intake. He had been improving postoperatively, but over the last 5 -6 days felt that he was not doing as well. He spent more time in bed due to weakness and fatigue. He has had nausea and vomiting. He reports cough productive of white phlegm. Denies fever, chills, night sweats. Review of Systems Constitutional: DENIES: Fever, Chills, Night Sweats Eyes: DENIES: Blurred vision, Vision loss Ears, nose, mouth, throat: DENIES: Hearing loss Respiratory: COMPLAINS OF: Cough, Sputum production, DENIES: Wheezing, Shortness of breath Cardiovascular: DENIES: Chest pain, Palpitations, Dyspnea on Exertion, Lower Extremity Edema Gastrointestinal: COMPLAINS OF: Abdominal pain, Nausea, Vomiting, DENIES: Constipation, Diarrhea Genitourinary: DENIES: Urinary frequency, Urinary incontinence, Urgency, Hematuria, Dysuria, Nocturia Musculoskeletal: DENIES: Joint pain, Muscle aches Integumentary: DENIES: Pruritus, Rash Hematologic/lymphatic: DENIES: Bruising Neurologic: DENIES: Headache Past Family Social History Allergies: Coded Allergies: codeine (Verified Adverse Reaction, Severe, Nausea/Vomiting, 05/26/17) Past Medical History Hypertension Colon cancer Past Surgical History Left knee surgery Left colectomy with coloanal anastomosis and diverting ileostomy Wedge resection of liver metastasis Partial resection of the left ureter with anastomosis and placement of double-J stent Reported Medications See list Family History Patient denies significant family history Social History Smokes one pack per day and has done so for 40 years. Denies alcohol or illicit drug use. Physical Exam Vital Signs Vital Signs Date Time Temp Pulse Resp B/P (MAP) Pulse Ox O2 Delivery O2 Flow Rate FiO2 06/18/17 08:00 98.5 129 28 111/76 (88) 99 06/18/17 07:00 126 06/18/17 04:46 98.5 138 28 140/82 (101) 99 06/18/17 04:05 99.9 145 18 141/80 (100) 97 06/18/17 03:45 146 06/18/17 03:30 142 06/18/17 00:05 99.5 110 18 151/80 (103) 98 06/17/17 20:05 98.9 100 18 160/88 (112) 98 06/17/17 14:27 96.7 85 18 147/72 (97) 98 06/17/17 11:24 96.2 107 18 163/91 (115) 98 Physical Exam GENERAL: Well-nourished, well-developed male in no acute distress. HEENT: Normocephalic, atraumatic. Pupils equal, round and reactive. Extraocular movements intact. No scleral icterus. No injection or drainage. Oropharynx is clear. Mucous membranes are somewhat dry. CARDIOVASCULAR: Tachycardic. RESPIRATORY: Clear to auscultation. No wheezes, rales, or rhonchi. Breathing is non-labored. GASTROINTESTINAL: Abdomen soft, mild diffuse tenderness to palpation, nondistended. Midline surgical wound healing well. Ileostomy present. EXTREMITIES: No lower extremity edema. No calf tenderness. PSYCH: Alert and oriented x 3. Laboratory Laboratory Tests Test 06/17/17 10:33 06/17/17 12:20 06/17/17 16:30 06/17/17 20:23 White Blood Count 16.5 13.2 Red Blood Count 5.05 4.57 Hemoglobin 13.7 12.5 Hematocrit 41.7 38.0 Mean Corpuscular Volume 82.7 83.2 Mean Corpuscular Hemoglobin 27.2 27.2 Mean Corpuscular Hemoglobin Concent 32.9 32.7 Red Cell Distribution Width 15.6 15.4 Platelet Count 562 495 Mean Platelet Volume 7.6 7.1 Neutrophils (%) (Auto) 89.6 87.6 Lymphocytes (%) (Auto) 2.3 2.5 Monocytes (%) (Auto) 7.8 9.6 Eosinophils (%) (Auto) 0.0 0.0 Basophils (%) (Auto) 0.3 0.3 Neutrophils # (Auto) 14.8 11.6 Lymphocytes # (Auto) 0.4 0.3 Monocytes # (Auto) 1.3 1.3 Eosinophils # (Auto) 0.0 0.0 Basophils # (Auto) 0.0 0.0 CBC Comment AUTO DIFF DIFF FINAL Differential Total Cells Counted 100 Neutrophils % (Manual) 79 Band Neutrophils % 8 Lymphocytes % 5 Monocytes % 6 Neutrophils # (Manual) 14.7 Metamyelocytes 1 Myelocytes 1 Differential Comment FINAL DIFF MANUAL Toxic Granulation 1+ Toxic Vacuolation PRESENT Platelet Estimate HIGH Platelet Morphology Comment ENLARGED Blood Urea Nitrogen 40 Creatinine 1.20 0.97 Random Glucose 146 Calcium Level 9.6 Sodium Level 130 Potassium Level 5.1 Chloride Level 99 Carbon Dioxide Level 18.6 Anion Gap 12 Estimat Glomerular Filtration Rate 60 77 Urine Color LIGHT-RED Urine Turbidity HAZY Urine pH 5.5 Urine Specific [place] 1.022 Urine Protein 30 Urine Glucose (UA) NEG Urine Ketones NEG Urine Occult Blood LARGE Urine Nitrite NEG Urine Bilirubin NEG Urine Urobilinogen LESS THAN 2.0 Urine Leukocyte Esterase MOD Urine RBC Urine WBC 24 Urine Squamous Epithelial Cells 3 Urine Bacteria FEW Urine Hyaline Casts 9 Urine Mucus FEW Microscopic Urinalysis Comment CULTURE INDICATED Prothrombin Time 12.3 Prothromb Time International Ratio 1.1 Activated Partial Thromboplast Time 28.7 Lactic Acid Level 2.6 2.6 Total Bilirubin 0.6 Test 06/18/17 04:50 06/18/17 05:37 White Blood Count 14.1 Red Blood Count 4.76 Hemoglobin 13.0 Hematocrit 39.6 Mean Corpuscular Volume 83.2 Mean Corpuscular Hemoglobin 27.2 Mean Corpuscular Hemoglobin Concent 32.7 Red Cell Distribution Width 15.5 Platelet Count 601 Mean Platelet Volume 7.7 Neutrophils (%) (Auto) 87.7 Lymphocytes (%) (Auto) 2.2 Monocytes (%) (Auto) 9.7 Eosinophils (%) (Auto) 0.0 Basophils (%) (Auto) 0.4 Neutrophils # (Auto) 12.4 Lymphocytes # (Auto) 0.3 Monocytes # (Auto) 1.4 Eosinophils # (Auto) 0.0 Basophils # (Auto) 0.1 CBC Comment AUTO DIFF Blood Urea Nitrogen 37 Creatinine 1.39 Random Glucose 193 Calcium Level 8.3 Sodium Level 132 Potassium Level 4.3 Chloride Level 100 Carbon Dioxide Level 18.1 Anion Gap 14 Estimat Glomerular Filtration Rate 51 Date/Time Source Procedure Growth Status 06/17/17 16:30 Blood Peripheral Aerobic Blood Culture Pending Received 06/17/17 16:30 Blood Peripheral Anaerobic Blood Culture Pending Received 06/17/17 12:20 Urine Random Urine Urine Culture Pending Received Result Diagram: 06/18/17 0537 06/18/17 0537 Imaging Last Impressions Abdomen/Pelvis CT 06/17/17 0000 Signed Impressions: Service Date/Time: Saturday, June 17, 2017 13:35 - CONCLUSION: Dilatation of distal small bowel when compared to proximal. Minimal colonic gas is evident.. Zone of transition appears to be in the right lower quadrant. I can see the transition but not etiology for such. Alfredo Lora MD FACR Assessment and Plan Assessment and Plan 1. Abdominal pain, nausea, vomiting: Status post colectomy and diverting ileostomy 3 weeks ago. Management per colorectal surgery. Continue antiemetics, pain control. Clear liquid diet. 2. UTI: Continue antibiotics. Urine culture is pending. 3. Tachycardia: Appears on telemetry monitoring to be sinus tachycardia. Responded briefly to metoprolol, but rate increased again. Patient denies history of arrhythmia. Cardizem drip ordered. 4. Acute kidney injury: Continue IV fluids. Monitor BUN and creatinine. 5. Sepsis: Source is UTI. Patient presented with leukocytosis, tachycardia. Serum lactic acid elevated. Continue antibiotics. Blood and urine cultures are pending. 6. Hypertension: Continue metoprolol. 7. DVT prophylaxis: Cora, OVIDIO galvez. Adrian Jay MD Jun 18, 2017 09:20
--- NOTE | 2017-06-18 09:26 | EKG ---
Date Performed: 06/18/2017 Time Performed: 03:49:14 PTAGE: 67 years EKG: Sinus tachycardia with PAC(s) Left axis deviation Septal ST-T changes are nonspecific Abnor mal ECG Compared to prior electrocardiogram, rate has increased PREVIOUS TRACING : 05/19/2017 10.23 DOCTOR: Esdras Candelaria Interpretating Date/Time 06/18/2017 09:24:55
[2017-06-18] MEDS: ONDANSETRON HCL 4 MG/2 ML VIAL IV PUSH PRN (09:45)
[2017-06-18 10:52] LABS: BANDS 44 % (0-6); DOHLE BODIES PRESENT (NONE SEEN); EOSINOPHILS 1 % (0-4); METAMYELOCYTES 10 % (0-1); NEUTROPHIL # MANUAL DIFF 12.1 TH/MM3 (1.8-7.7); PLATELET ESTIMATE SMEAR HIGH (NORMAL); POLYS (SEG NEUTROPHILS) 32 % (16-70); TOXIC GRANULATION 2+ (NORMAL); WBC DIFF SAMPLE 100
[2017-06-18 11:03] LABS: PLATELET MORPHOLOGY NORMAL (NORMAL)
[2017-06-18 11:04] LABS: SCAN/DIFF FINAL DIFF MANUAL
[2017-06-18] MEDS ORDERED: SODIUM CHLOR 0.9% 1000 ML INJ 1,000 ML IV ONE ×3 (13:00→13:30)
[2017-06-18] MEDS ORDERED: VANCOMYCIN INJ 1,000 MG in SODIUM CHLOR 0.9% 250 ML INJ 250 ML IV ONE (13:00)
[2017-06-18 13:18] LABS: BLOOD GAS BASE EXCESS -10.8 mmol/L (-2-2); BLOOD GAS CARBOXYHEMOGLOBIN 1.7 % (0-4); BLOOD GAS HCO3 12 mmol/L (22-26); BLOOD GAS O2 HGB SATURATION 94 % (90-100); BLOOD GAS PCO2 17 mmHg (38-42); BLOOD GAS PO2 84 mmHg (61-120); CRITICAL VALUE YES; DRAW SITE RT BRACHIAL; LITER FLOW 1 L/M; NUMBER OF ARTERIAL PUNCTURES 1; OXYGEN DEVICE NASAL CANNULA; STAT YES; TEMP CORR TO 98.6; ULNAR PULSE PRESENT
[2017-06-18] MEDS ORDERED: SODIUM BICARBONATE 8.4% INJ 50 ML ONE (13:39)
--- NOTE | 2017-06-18 14:00 | RADRPT ---
EXAM DATE/TIME: 06/18/2017 13:21 [place] COMPARISON: No previous studies available for comparison. INDICATIONS : Shortness of breath. MEDICAL HISTORY : Carcinoma, rectal. Hernia, inguinal. Hypertension. SURGICAL HISTORY : Colectomy. Appendectomy. ENCOUNTER: Initial ACUITY: 1 day PAIN SCORE: 4/10 LOCATION: Bilateral chest FINDINGS: The cardiac silhouette is normal in transverse diameter. The lungs are free of acute parenchymal opac ity. No effusions are identified. A nasogastric tube is in place with its tip in the stomach. CONCLUSION: 1. No acute cardiopulmonary disease. Eddie Saucedo MD on June 18, 2017 at 13:59 Board Certified Radiologist. This report was verified electronically.
[2017-06-18 14:04] LABS: LACTIC ACID GHOST NOT REPORTABLE
--- NOTE | 2017-06-18 14:10 | RADRPT ---
EXAM DATE/TIME: 06/18/2017 13:26 [facility] COMPARISON: No previous studies available for comparison. INDICATIONS : Abdominal pain. MEDICAL HISTORY : Carcinoma, rectal. Hernia, inguinal. Hypertension. SURGICAL HISTORY : Colectomy. Appendectomy. Ureteral stent. ENCOUNTER: Initial ACUITY: 1 day PAIN SCORE: 7/10 LOCATION: Bilateral abdomen. FINDINGS: Examination of the abdomen demonstrates gaseous distention of the small bowel with air fluid levels m ost consistent with ileus .There are no findings of small bowel obstruction. No free air is identifie d. No organomegaly is evident. A double-J stent is present on the left in the expected position. A n asogastric tube is in place with its tip in the stomach. An ostomy is present in the right lower quad rant. CONCLUSION: 1. Findings of small bowel ileus. Eddie Saucedo MD on June 18, 2017 at 14:07 Board Certified Radiologist. This report was verified electronically.
--- NOTE | 2017-06-18 14:30 | EKG ---
Date Performed: 06/18/2017 Time Performed: 13:46:57 PTAGE: 67 years EKG: SINUS TACHYCARDIA POSSIBLE RIGHT VENTRICULAR CONDUCTION DELAY ABNORMAL RHYTHM ECG No signif icant change from prior electrocardiogram. PREVIOUS TRACING : 06/18/2017 03.49 DOCTOR: Esdras Candelaria Interpretating Date/Time 06/18/2017 14:29:00
[2017-06-18] MEDS: SODIUM BICARBONATE 8.4% INJ 100 MEQ in DEXTROSE 5% IN WATE 1000ML INJ 1,000 ML IV SCH ×4 (14:40→21:35)
[2017-06-18] MEDS: PIPERACIL-TAZO 3.375 GM PREMIX 50 ML IV SCH ×2 (14:43→20:51)
--- NOTE | 2017-06-18 14:56 | PD.CONS ---
[facility] Service Critical Care Medicine Consult Requested By Dr. Jay Reason for Consult Septic shock Acute kidney injury Ileus Lactic acidemia UTI Primary Care Physician Non-Staff History of Present Illness The patient is a 67-year-old male with past medical history of hypertension, metastatic colon cancer, tobacco abuse, who, about 3 weeks ago underwent low anterior resection with low colorectal anastomosis, diverting ileostomy, and resection of a segment of the left ureter with ureteral anastomosis and double- J stent placement. He presented yesterday with 5 day history of abdominal discomfort and increasing weakness. No history of high output from ileostomy. He was admitted to the colorectal surgery for dehydration and probable UTI. He was placed on ciprofloxacin and IV hydration. According to Dr. Geiger's note it was difficult dissection/resection colon mass because of the pelvic sidewall adherence and the adherence to the left ureter. A portion of ureter was resected due to possibility of tumor infiltration, and Dr. Augustine Pelayo re- anastomosed the ureter and placed left-sided double-J stent. Also 1 cm hepatic metastasis in his liver that was excised. Hospitalist consultation was requested for medical management and evaluation of tachycardia today. He was seen by Dr. Jay and was placed on infusion of Cardizem for heart rate 140s. Patient became hypotensive with systolic blood pressure early 90s. Lab work showed WBC 14.5 with 44% bands, creat increase from 1.2 to 1.4 and severely increased lactate at 8 from admission lactate of 2.6. CT of the abdomen pelvis done yesterday showed probable small bowel ileus. I evaluated the patient in the ICU. He is tachycardic in 140s, hypotensive and systolic blood pressure in mid 80s. Clinically appears very dehydrated, an NG tube was placed with approximately 3 L of some coffee-ground output. ABG shows a base excess of -10 and bicarbonate 12. I have ordered 4 liter normal saline boluses start 1 amp of bicarbonate, discontinued the LR infusion, and started bicarb gtt. Discontinue ciprofloxacin, started Zosyn every 6 hours, vancomycin 1 g 1. His elevated lactic acid and bandemia most likely secondary to severe sepsis, ileus, and severe dehydration. Serial lactate is ordered Review of Systems ROS Limitations: Clinical Condition, Other (as per [facility]) Past Family Social History Allergies: Coded Allergies: codeine (Verified Adverse Reaction, Severe, Nausea/Vomiting, 05/26/17) Past Medical History Hypertension Metastatic colon cancer Tobacco abuse Past Surgical History About 3 weeks ago underwent: Left colectomy with coloanal anastomosis and diverting ileostomy Wedge resection of liver metastasis Partial resection of the left ureter with anastomosis and placement of double -J stent Left knee surgery Reported Medications Tamsulosin 0.4 mg daily Metoprolol 50 mg twice a day Lortab 5/325 by mouth every 4-6 hours when necessary Viibryd 40 mg daily at bedtime Active Ordered Medications Reviewed Family History Denies any history of colon cancer Social History [id number] history of smoking. Denies alcohol or drug abuse Physical Exam Vital Signs Vital Signs Date Time Temp Pulse Resp B/P (MAP) Pulse Ox O2 Delivery O2 Flow Rate FiO2 06/18/17 13:19 98 Nasal Cannula 1.00 06/18/17 11:00 98.5 134 28 91/45 (60) 99 06/18/17 10:19 131 104/64 06/18/17 08:00 98.5 129 28 111/76 (88) 99 06/18/17 07:00 126 06/18/17 04:46 98.5 138 28 140/82 (101) 99 06/18/17 04:05 99.9 145 18 141/80 (100) 97 06/18/17 03:45 146 06/18/17 03:30 142 06/18/17 00:05 99.5 110 18 151/80 (103) 98 06/17/17 20:05 98.9 100 18 160/88 (112) 98 Physical Exam GENERAL: Well-developed and well-nourished male in moderate distress, tachypneic SKIN: Warm and dry. HEENT: Extraocular muscles intact. NECK: The neck is supple. No JVD CHEST: Clear. Equal bilaterally ABDOMEN: Abdomen is flat, soft, diffuse mild tenderness. Incision appears healing well. Ileostomy is functioning well. EXTREMITIES: No pedal edema or cyanosis NEURO: Awake alert oriented. No focal deficits Laboratory Laboratory Tests Test 06/17/17 16:30 06/17/17 20:23 06/18/17 04:50 06/18/17 05:37 White Blood Count 13.2 14.1 Red Blood Count 4.57 4.76 Hemoglobin 12.5 13.0 Hematocrit 38.0 39.6 Mean Corpuscular Volume 83.2 83.2 Mean Corpuscular Hemoglobin 27.2 27.2 Mean Corpuscular Hemoglobin Concent 32.7 32.7 Red Cell Distribution Width 15.4 15.5 Platelet Count 495 601 Mean Platelet Volume 7.1 7.7 Neutrophils (%) (Auto) 87.6 87.7 Lymphocytes (%) (Auto) 2.5 2.2 Monocytes (%) (Auto) 9.6 9.7 Eosinophils (%) (Auto) 0.0 0.0 Basophils (%) (Auto) 0.3 0.4 Neutrophils # (Auto) 11.6 12.4 Lymphocytes # (Auto) 0.3 0.3 Monocytes # (Auto) 1.3 1.4 Eosinophils # (Auto) 0.0 0.0 Basophils # (Auto) 0.0 0.1 CBC Comment DIFF FINAL AUTO DIFF Differential Comment FINAL DIFF MANUAL Prothrombin Time 12.3 Prothromb Time International Ratio 1.1 Activated Partial Thromboplast Time 28.7 Creatinine 0.97 1.39 Estimat Glomerular Filtration Rate 77 51 Lactic Acid Level 2.6 2.6 Total Bilirubin 0.6 Nasal Screen MRSA (PCR) MRSA NOT DETECTED Differential Total Cells Counted 100 Neutrophils % (Manual) 32 Band Neutrophils % 44 Lymphocytes % 2 Monocytes % 11 Eosinophils % 1 Neutrophils # (Manual) 12.1 Metamyelocytes 10 Toxic Granulation 2+ Dohle Bodies PRESENT Platelet Estimate HIGH Platelet Morphology Comment NORMAL Blood Urea Nitrogen 37 Random Glucose 193 Calcium Level 8.3 Sodium Level 132 Potassium Level 4.3 Chloride Level 100 Carbon Dioxide Level 18.1 Anion Gap 14 Test 06/18/17 11:59 06/18/17 13:10 Lactic Acid Level 8.0 Blood Gas Puncture Site RT BRACHIAL Blood Gas Patient Temperature 98.6 Blood Gas HCO3 12 Blood Gas Base Excess -10.8 Blood Gas Oxygen Saturation 94 Arterial Blood pH 7.47 Arterial Blood Partial Pressure CO2 17 Arterial Blood Partial Pressure O2 84 Arterial Blood Oxygen Content 16.0 Arterial Blood Carboxyhemoglobin 1.7 Arterial Blood Methemoglobin 1.0 Blood Gas Hemoglobin 12.0 Oxygen Delivery Device NASAL CANNULA Blood Gas Liter Flow 1 Date/Time Source Procedure Growth Status 06/17/17 16:30 Blood Peripheral Aerobic Blood Culture - Preliminary NO GROWTH IN 1 DAY Resulted 06/17/17 16:30 Blood Peripheral Anaerobic Blood Culture - Preliminary NO GROWTH IN 1 DAY Resulted 06/17/17 12:20 Urine Random Urine Urine Culture - Final 50-100,000 CFU/ML MIXED ONAH... Complete Result Diagram: 06/18/1753606/18/[address] abdomen pelvis shows distal small bowel dilatation Chest x-ray no acute findings KUB shows ileus Septic Shock Reassessment Heart: Irregular (tachycardic) Lungs: Clear, Diminished Skin: Warm, Dry Peripheral Pulses: Weak Right Radial Weak Left Radial Capillary Refill: >2 seconds Assessment and Plan Assessment and Plan ASSESSMENT Septic shock Acute kidney injury Ileus Lactic acidemia UTI s/p Left colectomy with colorectal anastomosis, diverting ileostomy, wedge resection of liver metastasis s/p Partial resection of the left ureter with anastomosis and placement of double-J stent Hypertension Tobacco abuse PLAN: NEURO: - Use when necessary morphine for pain. Use minimal dose due to ileus RESP: - Nasal cannula oxygen. DuoNeb every 6 hours when necessary CV: - Normal saline IV fluids 4L bolus and D5 with bicarb at 150 ml per hour - Check CVP, central venous gas, trend tactic acid - Continue aggressive fluid resuscitation - Start vasopressin 0.04 units, add Levophed if needed to keep MAP>65 GI: - NPO, Protonix gtt - IV Reglan 5 mg q8hr - CT abdomen pelvis and KUB shows small bowel ileus : - Monitor renal function closely. Place Han catheter. - IVF resuscitation as above ID: - IV vancomycin and Zosyn. DC Cipro - F/u blood and urine culture HEME: - Monitor CBC, CMP ENDO: - Electrolyte replacement per protocol PROPH: -Bilateral lower extremity SCDs. Heparin 5000 units subcutaneous every 12 LINES: - Left IJ central line placed CC time 85 min discontinuously and excluding procedures Code Status Full Discussed Condition With Dr. Nick Dr, Shiva Gleason MD Jun 18, 2017 14:56
[2017-06-18] MEDS: VASOPRESSIN INJ 40 UNITS in DEXTROSE 5% IN WATER 100ML INJ 98 ML IV SCH ×2 (15:29)
[2017-06-18] MEDS ORDERED: VASOPRESSIN 20 UNITS/ML VIAL (IVTITR) ONE (15:35)
[2017-06-18] MEDS ORDERED: SODIUM BICARBONATE 8.4% INJ 50 MEQ/50 ML SYR ONE ×2 (15:56→15:57)
[2017-06-18 16:02] LABS: BLOOD, URINE LARGE (NEG); GLUCOSE,URINE TRACE mg/dL (NEG); GRANULAR CAST, URINE 6 /lpf; HYALINE CAST, URINE 13 /lpf (RARE); KETONE, URINE NEG (NEG); NITRITE,URINE NEG (NEG); PH, URINE 5.5 (5.0-8.5)
[2017-06-18 16:08] LABS: URINE COLOR LIGHT-RED (YELLW/STRAW)
[2017-06-18 16:09] LABS: COMMENT (UR) CATH-CULT NOT IND; CULTURE IF INDICATED CATH CULTURE NOT IND
--- NOTE | 2017-06-18 16:24 | PD.PROCEDR ---
Central Line Procedure REASON FOR PROCEDURE Central venous access PROCEDURE PERFORMED Central line placement: LIJ central line CONSENT Informed consent for procedure was obtained and time out performed. The risks and benefits of the procedure were discussed to include but limited to bleeding , clot formation, infection, and even . ANESTHESIA Local injection of 1% Lidocaine DESCRIPTION OF THE PROCEDURE The patient was placed in supine, mild Trendelenburg position. The area was exposed and cleansed with ChloraPrep, times two. Large sterile drape was used to cover the patient, with the site exposed, under sterile conditions including cap, face mask, sterile gown, and sterile gloves. On single attempt, the introducer needle was inserted with negative pressure in syringe and venous flash was obtained. The guide wire was then advanced without any restriction and the needle was removed. The dilator was used without any complications. Using Seldinger technique the 20 cm triple lumen 7F catheter was advanced over the guide wire to a depth of 18 centimeters. The guide wire was removed. All ports were aspirated with dark venous blood return and flushed easily with sterile saline. All ports were capped. Antibiotic disc was placed around central line at puncture site. The central line was secured to the skin with two interrupted 2.0 silk sutures. The area was bandaged with sterile see- through central line bandage. RADIOLOGICAL DATA Ultrasound guidance was used to locate LIJ. Doppler/color flow was used to confirm venous flow. COMPLICATIONS: No apparent complications ESTIMATED BLOOD LOSS: Less than 1 cc. Shiva Segovia MD Jun 18, 2017 16:24
--- NOTE | 2017-06-18 16:35 | RADRPT ---
EXAM DATE/TIME: 06/18/2017 16:15 [facility] COMPARISON: CHEST SINGLE AP, June 18, 2017, 13:21. INDICATIONS : Central line placement. MEDICAL HISTORY : Carcinoma, rectal. Hernia, inguinal. Hypertension. SURGICAL HISTORY : Colectomy. Appendectomy. ENCOUNTER: Initial ACUITY: 1 day PAIN SCORE: 3/10 LOCATION: Bilateral chest FINDINGS: The cardiac silhouette is normal in transverse diameter. A left sided internal jugular vein catheter is in place without pneumothorax with its tip in the superior vena cava. The lungs are free of acute parenchymal opacity. No effusions are identified. The lungs are hypoinflated. CONCLUSION: 1. Uncomplicated line placement. No evidence of pneumothorax. Eddie Saucedo MD on June 18, 2017 at 16:33 Board Certified Radiologist. This report was verified electronically.
[2017-06-18 16:47] LABS: BLOOD GAS VENOUS BASE EXCESS -1.2 mmol/L (-2-2); BLOOD GAS VENOUS HCO3 22 mmol/L (22-26); BLOOD GAS VENOUS O2 CONTENT 6.4 Vol % (9.0-17.0); BLOOD GAS VENOUS O2 HGB SAT 45 % (70-76); BLOOD GAS VENOUS PCO2 34 mmHg (44-48); BLOOD GAS VENOUS PO2 28 mmHg (35-40); BLOOD GAS VENOUS pH 7.44 (7.360-7.400); CRITICAL VALUE YES; DRAW SITE CENTRAL LINE; LITER FLOW 2 L/M; OXYGEN DEVICE NASAL CANNULA; STAT YES; TEMP CORR TO 98.6
[2017-06-18] MEDS: METOCLOPRAMIDE HCL 10 MG/2 ML VIAL IV PUSH SCH (17:00)
[2017-06-18 17:13] LABS: BICARBONATE 23.3 MEQ/L (21.0-32.0); CALCIUM-PROTEIN CORRECTED 8.1 MG/DL (8.5-10.1); POTASSIUM 3.8 MEQ/L (3.5-5.1); TOTAL BILIRUBIN ADULT 1.3 MG/DL (0.2-1.0)
[2017-06-18] MEDS ORDERED: TERBUTALINE INJ 1 MG/ML AMP SQ PRN (17:15)
[2017-06-18] MEDS ORDERED: Vancomycin Consult Pharmacy 1 EA OTHER SCH (17:15)
[2017-06-18] MEDS ORDERED: NOREPINEPHRINE INJ 4 MG in SODIUM CHLOR 0.9% 250 ML INJ 246 ML IV PRN (17:15)
[2017-06-18 17:51] LABS: BASOPHIL % 0.1 % (0.0-2.0); EOSINOPHIL % 0.1 % (0.0-4.0); HEMATOCRIT 23.9 % (39.0-51.0); LYMPH % 5.1 % (9.0-44.0); LYMPHOCYTE # 0.3 TH/MM3 (1.0-4.8); MEAN CELL VOLUME 82.4 FL (80.0-100.0); MEAN CORPUSCULAR HEMOGLOBIN 27.6 PG (27.0-34.0); MEAN CORPUSCULAR HGB CONC 33.4 % (32.0-36.0); MONO % 13.4 % (0.0-8.0); NEUT % 81.3 % (16.0-70.0); PLATELET COUNT 291 TH/MM3 (150-450); RED BLOOD COUNT 2.89 MIL/MM3 (4.50-5.90); RED CELL DISTRIBUTION WIDTH 15.4 % (11.6-17.2)
[2017-06-18 17:53] LABS: HEMO FLAGS AUTO DIFF
[2017-06-18 18:49] LABS: BANDS 59 % (0-6); METAMYELOCYTES 6 % (0-1); MYELOCYTES 3 % (0-0); NEUTROPHIL # MANUAL DIFF 4.8 TH/MM3 (1.8-7.7); POLYS (SEG NEUTROPHILS) 27 % (16-70); WBC DIFF SAMPLE 100
[2017-06-18 18:51] LABS: PLATELET ESTIMATE SMEAR NORMAL (NORMAL); PLATELET MORPHOLOGY NORMAL (NORMAL); TOXIC GRANULATION 2+ (NORMAL); TOXIC VACUOLATION PRESENT (NONE SEEN)
[2017-06-18 18:52] LABS: SCAN/DIFF FINAL DIFF MANUAL
[2017-06-18] MEDS ORDERED: CALCIUM CHLORIDE INJ 1 GM in SODIUM CHLORIDE 0.9% INJ 100 ML IV ONE (20:00)
[2017-06-18] MEDS: ALBUMIN 25% INJ 100 ML IV SCH (20:42)
[2017-06-18] MEDS: PANTOPRAZOLE 80 MG/100 ML NS IV SCH ×2 (21:35)
[2017-06-19] VITALS (38 sets, daily range): BP systolic 90–155; BP diastolic 45–84; PULSE 88–171; RESP 0–35; TEMP 98.5–99; O2SAT 87–100
[2017-06-19] MEDS: PANTOPRAZOLE 80 MG/100 ML NS IV SCH ×6 (02:00→22:45)
[2017-06-19] MEDS: PIPERACIL-TAZO 3.375 GM PREMIX 50 ML IV SCH ×4 (02:52→22:56)
[2017-06-19] MEDS: ACETAMINOPHEN/HYDROcodone 325 MG/5 MG TAB PO PRN (02:53)
[2017-06-19] MEDS: METOCLOPRAMIDE HCL 10 MG/2 ML VIAL IV PUSH SCH ×4 (02:54→23:49)
[2017-06-19] MEDS: CHLORHEXIDINE GLUCONATE 2 % 1 PACK (2 CLOTHS)(taper/protocol) TOPICAL SCH (04:00)
[2017-06-19] MEDS: SODIUM BICARBONATE 8.4% INJ 100 MEQ in DEXTROSE 5% IN WATE 1000ML INJ 1,000 ML IV SCH ×4 (04:57→13:17)
[2017-06-19] MEDS: ALBUMIN 25% INJ 100 ML IV SCH ×2 (05:32→18:42)
[2017-06-19 06:18] LABS: AUTOMATED NEUTROPHIL # 7.4 TH/MM3 (1.8-7.7); BASOPHIL % 0.2 % (0.0-2.0); EOSINOPHIL % 0.4 % (0.0-4.0); HEMATOCRIT 31.5 % (39.0-51.0); LYMPH % 3.9 % (9.0-44.0); LYMPHOCYTE # 0.3 TH/MM3 (1.0-4.8); MEAN CORPUSCULAR HGB CONC 34.2 % (32.0-36.0); MONO % 5.4 % (0.0-8.0); NEUT % 90.1 % (16.0-70.0); PLATELET COUNT 284 TH/MM3 (150-450); RED BLOOD COUNT 3.84 MIL/MM3 (4.50-5.90); RED CELL DISTRIBUTION WIDTH 15.5 % (11.6-17.2); WHITE BLOOD COUNT 8.2 TH/MM3 (4.0-11.0)
[2017-06-19 06:20] LABS: HEMO FLAGS AUTO DIFF
[2017-06-19 06:58] LABS: BICARBONATE 25.5 MEQ/L (21.0-32.0); CALCIUM-PROTEIN CORRECTED 8.6 MG/DL (8.5-10.1); MAGNESIUM 1.5 MG/DL (1.5-2.5); POTASSIUM 3.3 MEQ/L (3.5-5.1)
[2017-06-19 07:26] LABS: BANDS 38 % (0-6); EOSINOPHILS 1 % (0-4); NEUTROPHIL # MANUAL DIFF 7.5 TH/MM3 (1.8-7.7); POLYS (SEG NEUTROPHILS) 53 % (16-70); WBC DIFF SAMPLE 100
[2017-06-19 07:28] LABS: DOHLE BODIES PRESENT (NONE SEEN); PLATELET ESTIMATE SMEAR NORMAL (NORMAL); PLATELET MORPHOLOGY NORMAL (NORMAL); SCAN/DIFF FINAL DIFF MANUAL; TOXIC VACUOLATION PRESENT (NONE SEEN)
--- NOTE | 2017-06-19 07:32 | HHI.CCPN ---
Subjective Remarks/Hospital Course The patient is a 67-year-old male with past medical history of hypertension, metastatic colon cancer, tobacco abuse, who, about 3 weeks ago underwent low anterior resection with low colorectal anastomosis, diverting ileostomy, and resection of a segment of the left ureter with ureteral anastomosis and double- J stent placement. He presented yesterday with 5 day history of abdominal discomfort and increasing weakness. No history of high output from ileostomy. He was admitted to the colorectal surgery for dehydration and probable UTI. He was placed on ciprofloxacin and IV hydration. According to Dr. Geiger's note it was difficult dissection/resection colon mass because of the pelvic sidewall adherence and the adherence to the left ureter. A portion of ureter was resected due to possibility of tumor infiltration, and Dr. Augustine Pelayo re- anastomosed the ureter and placed left-sided double-J stent. Also 1 cm hepatic metastasis in his liver that was excised. Hospitalist consultation was requested for medical management and evaluation of tachycardia today. He was seen by Dr. Jay and was placed on infusion of Cardizem for heart rate 140s. Patient became hypotensive with systolic blood pressure early 90s. Lab work showed WBC 14.5 with 44% bands, creat increase from 1.2 to 1.4 and severely increased lactate at 8 from admission lactate of 2.6. CT of the abdomen pelvis done yesterday showed probable small bowel ileus. I evaluated the patient in the ICU. He is tachycardic in 140s, hypotensive and systolic blood pressure in mid 80s. Clinically appears very dehydrated, an NG tube was placed with approximately 3 L of some coffee-ground output. ABG shows a base excess of -10 and bicarbonate 12. I have ordered 4 liter normal saline boluses start 1 amp of bicarbonate, discontinued the LR infusion, and started bicarb gtt. Discontinue ciprofloxacin, started Zosyn every 6 hours, vancomycin 1 g 1. His elevated lactic acid and bandemia most likely secondary to severe sepsis, ileus, and severe dehydration. Serial lactate is ordered SUBJ 06/19: Lactic acid remains elevated at 6.6 despite getting 9 L of crystalloid boluses in last 24 hours. Tachycardia has improved heart rate in 110s. Remains on vasopressin at 0.04 units/min. Urine output almost 1200 mL overnight, OGT initial output was almost 3 L when placed yesterday a.m. Overnight had 550 mL of greenish brown fluid output. EGD pending today rule out gastric ischemia per Dr. Romero. Apparently Flex sig was negative post op in Dr. Geiger's office Objective Vital Signs Date Time Temp Pulse Resp B/P (MAP) Pulse Ox O2 Delivery O2 Flow Rate FiO2 06/19/17 06:00 102 06/19/17 04:00 98.8 18 104/58 (73) 95 06/18/17 22:00 Nasal Cannula 2.00 Intake and Output 06/19/17 06/19/17 06/20/17 08:00 16:00 00:00 Intake Total 4167 ml Output Total 2001 ml Balance 2166 ml Result Diagram: 06/19/17 0550 06/19/17 0550 Other Results Microbiology Date/Time Source Procedure Growth Status 06/17/17 12:20 Urine Random Urine Urine Culture - Final 50-100,000 CFU/ML MIXED NOAH... Complete Laboratory Tests Test 06/18/17 13:10 06/18/17 16:40 Blood Gas Puncture Site RT BRACHIAL CENTRAL LINE Blood Gas Patient Temperature 98.6 98.6 Blood Gas HCO3 12 mmol/L (22-26) Blood Gas Base Excess -10.8 mmol/L (-2-2) Blood Gas Oxygen Saturation 94 % (90-100) Arterial Blood pH 7.47 (7.380-7.420) Arterial Blood Partial Pressure CO2 17 mmHg (38-42) Arterial Blood Partial Pressure O2 84 mmHg (61-120) Arterial Blood Oxygen Content 16.0 Vol % (12.0-20.0) Arterial Blood Carboxyhemoglobin 1.7 % (0-4) Arterial Blood Methemoglobin 1.0 % (0-2) Blood Gas Hemoglobin 12.0 G/DL (12.0-16.0) Oxygen Delivery Device NASAL CANNULA NASAL CANNULA Blood Gas Liter Flow 1 L/M 2 L/M Venous Blood pH 7.44 (7.360-7.400) Venous Blood Partial Pressure CO2 34 mmHg (44-48) Venous Blood Partial Pressure O2 28 mmHg (35-40) Venous Blood HCO3 22 mmol/L (22-26) Venous Blood Oxygen Saturation 45 % (70-76) Venous Blood Oxygen Content 6.4 Vol % (9.0-17.0) Venous Blood Base Excess -1.2 mmol/L (-2-2) Imaging CT abdomen pelvis shows distal small bowel dilatation Chest x-ray no acute findings KUB shows ileus Objective Remarks GENERAL: Well-developed and well-nourished male in moderate distress, mildly tachypneic SKIN: Warm and dry. HEENT: Extraocular muscles intact. NECK: The neck is supple. CVP 6-8 CHEST:Few coarse rhonchi Equal bilaterally ABDOMEN: Abdomen is flat, soft, diffuse mild tenderness. Incision appears healing well. Ileostomy is functioning well. EXTREMITIES: No pedal edema or cyanosis NEURO: Awake alert oriented. No focal deficits A/P Assessment and Plan ASSESSMENT Septic shock Acute kidney injury Ileus Lactic acidemia UTI s/p Left colectomy with colorectal anastomosis, diverting ileostomy, wedge resection of liver metastasis s/p Partial resection of the left ureter with anastomosis and placement of double-J stent Hypertension Tobacco abuse PLAN: NEURO: - Use when necessary morphine for pain. Use minimal dose due to ileus RESP: - Nasal cannula oxygen. DuoNeb every 6 hours when necessary CV: - Normal saline IV fluids 8L boluses in last 24 hours and D5 with bicarb at 150 ml per hour-reduce to 100 ml per hour - CVP was 6 yesterday, central venous gas venous oxygen saturation was only 45, trend tactic acid - Check bedside echo and 2-D echo. May need inotropes - Continue fluid resuscitation - On vasopressin 0.04 units, attempt to wean GI: - NPO, Protonix gtt - Gastroenterology consulted for EGD today. Discussed multiple times with Dr. Clinton yesterday - IV Reglan 5 mg q8hr - CT abdomen pelvis and KUB shows small bowel ileus : - Monitor renal function closely. Han catheter. UO adequate - IVF resuscitation as above ID: - IV vancomycin and Zosyn started 06/18/17. DCd Cipro 06/18. - Start Diflucan 200 mg IV daily starting 06/19/17. ID consulted - F/u blood and urine culture HEME: - Monitor CBC, CMP ENDO: - Electrolyte replacement per protocol PROPH: -Bilateral lower extremity SCDs. Heparin 5000 units subcutaneous every 12 LINES: - Left IJ central line placed CC time 45 min discontinuously and excluding procedures Shiva Segovia MD Jun 19, 2017 07:31
--- NOTE | 2017-06-19 07:43 | RADRPT ---
EXAM DATE/TIME: 06/19/2017 07:17 [facility] COMPARISON: CHEST SINGLE AP, June 18, 2017, 16:15. INDICATIONS : Short of breath. MEDICAL HISTORY : Carcinoma, rectal. Hernia, inguinal. Hypertension. SURGICAL HISTORY : Colectomy. Appendectomy ENCOUNTER: Subsequent ACUITY: 2 days PAIN SCORE: 0/10 LOCATION: Bilateral chest FINDINGS: The left central line and NG tube remain in place. There is no pneumothorax. There continues to be pl atelike areas of atelectasis in both lower lungs. Otherwise, the rest of the lungs are grossly clear. No definite pleural effusions. Heart size is within normal limits and stable. The bony structures ar e stable. CONCLUSION: Bibasilar atelectasis. Otherwise, no significant changes. Krzysztof Cruz MD on June 19, 2017 at 7:40 Board Certified Radiologist. This report was verified electronically.
[2017-06-19] MEDS ORDERED: POTASSIUM CHLORIDE 25 MEQ EFFERVESCENT TAB PO PRN (07:45)
[2017-06-19] MEDS ORDERED: POTASSIUM PHOSPHATE INJ 30 MMOL in SODIUM CHLOR 0.9% 250 ML INJ 250 ML IV PRN (07:45)
[2017-06-19] MEDS ORDERED: MAGNESIUM SULFATE INJ 2 GM in SODIUM CHLORIDE 0.9% INJ 96 ML IV PRN (07:45)
[2017-06-19] MEDS ORDERED: POTASSIUM PHOSPHATE MONOBASIC 500 MG TAB PO/TUBE PRN (07:45)
[2017-06-19] MEDS ORDERED: POTASSIUM PHOSPHATE MONOBASIC 500 MG TAB PO PRN (07:45)
[2017-06-19] MEDS ORDERED: POTASSIUM CHLOR 40 MEQ PREMIX 100 ML IV PRN (07:45)
[2017-06-19] MEDS ORDERED: MAGNESIUM OXIDE 400 MG TAB PO PRN (07:45)
[2017-06-19] MEDS ORDERED: MAGNESIUM SULFATE INJ 4 GM in SODIUM CHLORIDE 0.9% INJ 92 ML IV PRN (07:45)
[2017-06-19] MEDS ORDERED: POTASSIUM CHLOR 20 MEQ PREMIX 100 ML IV PRN (07:45)
--- NOTE | 2017-06-19 07:45 | RADRPT ---
EXAM DATE/TIME: 06/19/2017 07:22 [facility] COMPARISON: ABDOMEN KUB ONLY, June 18, 2017, 13:26. INDICATIONS : Ileus. MEDICAL HISTORY : Carcinoma, rectal. Hernia, inguinal. Hypertension. SURGICAL HISTORY : Colectomy. Appendectomy. Ureteral stent. ENCOUNTER: Subsequent ACUITY: 2 days PAIN SCORE: 0/10 LOCATION: Bilateral chest FINDINGS: Supine view of the abdomen was performed. The abdominal bowel gas pattern again demonstrates multipl e dilated loops of small bowel. The dilatation appears to be mildly increased compared to the prior s tudy.. There does appear to be an NG tube in the stomach. There is a left sided double-J stent in harsh ce. The colon does not appear to be dilated. These findings continue to suggest a small bowel obstruc tion versus ileus. CONCLUSION: There continues to be multiple dilated loops of small bowel throughout the abdomen. The dilatation ap pears to be mildly increased compared to the prior examination. Finding suggest a distal small bowel obstruction versus ileus. Krzysztof Cruz MD on June 19, 2017 at 7:41 Board Certified Radiologist. This report was verified electronically.
[2017-06-19] MEDS: FLUCONAZOLE 200 MG PREMIX BAG 100 ML IV SCH (08:00)
[2017-06-19 08:05] LABS: BLOOD GAS VENOUS BASE EXCESS 3.1 mmol/L (-2-2); BLOOD GAS VENOUS HCO3 27 mmol/L (22-26); BLOOD GAS VENOUS O2 CONTENT 8.2 Vol % (9.0-17.0); BLOOD GAS VENOUS O2 HGB SAT 58 % (70-76); BLOOD GAS VENOUS PCO2 38 mmHg (44-48); BLOOD GAS VENOUS PO2 33 mmHg (35-40); BLOOD GAS VENOUS pH 7.46 (7.360-7.400); CRITICAL VALUE NO; LITER FLOW 1.5 L/M; OXYGEN DEVICE NASAL CANNULA; TEMP CORR TO 98.6
[2017-06-19 08:06] LABS: DRAW SITE CENTRAL LINE; STAT NO
[2017-06-19] MEDS: VASOPRESSIN INJ 40 UNITS in DEXTROSE 5% IN WATER 100ML INJ 98 ML IV SCH ×2 (08:09)
--- NOTE | 2017-06-19 08:37 | PD.CONS ---
HPI History of Present Illness This is a 67 year old with a history of metastatic colon cancer, who recently underwent low anterior resection with rectosigmoidectomy with lower anterior resection/coloanal anastomosis, resection and reanastomosis of the left ureter with ureteral anastomosis and double-J stent placement, wedge resection of hepatic metastasis, mobilization of the splenic flexure, and diverting closed loop ileostomy with Dr. Geiger and Dr. Pelayo on 05/26/17. The patients oncologist is Dr. Noel, but he has not been seen since his surgery. He presented to the emergency room with a five day history of abdominal pain and generalized weakness. The patient reports that he has been having mid abdominal pain that radiates throughout his entire abdomen, described as a severe cramping, x 5 days. He has associated nausea and vomiting with bilious material, no hematemesis. He reports that he has had a small amount of stool output from his ileostomy, but states that he has not been eating much by mouth. CT scan abdomen and pelvis with IV contrast (06/17/17)---> Dilatation of the distal small bowel when compared to proximal. Minimal colonic gas is evidence. Zone of transition appears to be in the right lower quadrant. I can see the transition but not etiology for such. KUB (06/19/17)---> There continues to be multiple dilated loops of small bowel throughout the abdomen. The dilatation appears to be mildly increased compared to the prior examination. Finding suggest a distal small bowel obstruction versus and ileus. He was admitted for septic shock, acute kidney injury, ileus, and UTI. The nurse reports that he has put out 5L of bilious material overnight. Dr. Romero is following and has ordered TPN. His lactic acid is elevated and there is some concern for bowel ischemia and therefore GI has been consulted for EGD/ Ileoscopy to r/o ischemia. (Tami Sadnerson) PFSH Past Medical History Hypertension Metastatic colon cancer Past Surgical History Left knee surgery Recent low anterior resection with rectosigmoidectomy with lower anterior resection/coloanal anastomosis, resection and reanastomosis of the left ureter with ureteral anastomosis and double-J stent placement, wedge resection of hepatic metastasis, mobilization of the splenic flexure, and diverting closed loop ileostomy with Dr. Geiger and Dr. Pelayo on 05/26/17 (Tami Sanderson) Coded Allergies: codeine (Verified Adverse Reaction, Severe, Nausea/Vomiting, 05/26/17) Medications Allergies Coded Allergies Type Severity Reaction Last Updated Verified codeine Adverse Reaction Severe Nausea/Vomiting 05/26/17 Yes Active Scripts Medications Dose Route/Sig Max Daily Dose Days Date Category Lortab (Hydrocodone-Acetaminophen) 5-325 Mg Tab 1 Tab PO Q4-6H PRN 06/01/17 Reported Viibryd (Vilazodone) 40 Mg Tab 40 Mg PO HS 05/19/17 Reported Tamsulosin (Tamsulosin HCl) 0.4 Mg Cap 0.4 Mg PO HS 05/19/17 Reported Metoprolol Tartrate 50 Mg Tab 50 Mg PO BID 05/19/17 Reported Family History No family hx of esophageal, gastric, colorectal cancer Social History 40 pack year smoking history No ETOH or illicit drug use (Tami Sanderson) Review of Systems Constitutional: COMPLAINS OF: Fatigue, Weight loss, Change in appetite, DENIES : Fever, Chills Respiratory: COMPLAINS OF: Shortness of breath, DENIES: Cough Cardiovascular: DENIES: Chest pain Gastrointestinal: COMPLAINS OF: Abdominal pain, Nausea, Vomiting, Swelling of Abdomen Integumentary: DENIES: Abnormal pigmentation Neurologic: DENIES: Headache Psychiatric: DENIES: Confusion (Tami Sanderson) GI Exam Vitals I&O Vital Signs Date Time Temp Pulse Resp B/P (MAP) Pulse Ox O2 Delivery O2 Flow Rate FiO2 06/19/17 07:00 Nasal Cannula 2.00 06/19/17 06:00 102 06/19/17 04:00 98.8 102 18 104/58 (73) 95 06/19/17 04:00 102 06/19/17 02:45 98.8 110 31 108/61 06/19/17 02:00 111 06/19/17 00:00 107 06/19/17 00:00 99.0 107 20 113/64 (80) 94 06/18/17 23:56 99.0 20 114/66 94 06/18/17 22:00 104 06/18/17 22:00 98 Nasal Cannula 2.00 06/18/17 20:26 96 Nasal Cannula 2.00 06/18/17 20:00 107 06/18/17 20:00 99.0 107 22 90/53 (65) 96 06/18/17 16:46 120 70/58 06/18/17 15:29 125 78/56 06/18/17 15:17 122 36 77/44 (55) 97 06/18/17 15:15 125 34 78/44 (55) 88 06/18/17 15:01 125 37 158/100 (119) 38 06/18/17 15:00 120 06/18/17 15:00 125 37 67 06/18/17 14:45 130 35 109/51 (70) 06/18/17 14:38 130 38 105/55 (72) 06/18/17 14:31 133 36 75/51 (59) 06/18/17 14:30 133 36 06/18/17 14:18 130 35 131/77 (95) 06/18/17 14:15 127 35 06/18/17 14:00 99.5 120 26 98 06/18/17 14:00 125 32 105/58 (74) 06/18/17 13:51 122 31 124/56 (78) 06/18/17 13:45 119 24 06/18/17 13:30 123 29 06/18/17 13:19 98 Nasal Cannula 1.00 06/18/17 13:15 127 33 55 06/18/17 13:00 129 40 83/51 (62) 98 06/18/17 12:45 134 31 85/51 (62) 99 06/18/17 12:40 137 42 80/55 (63) 95 06/18/17 12:35 129 40 75/48 (57) 98 06/18/17 12:30 130 40 78/49 (59) 97 06/18/17 12:00 135 35 83/60 (68) 96 06/18/17 12:00 135 06/18/17 11:45 130 06/18/17 11:45 130 39 95 06/18/17 11:30 133 06/18/17 11:30 133 38 81/57 (65) 94 06/18/17 11:15 132 06/18/17 11:15 132 41 95 06/18/17 11:00 98.5 134 28 91/45 (60) 99 06/18/17 11:00 134 36 94/61 (72) 97 06/18/17 11:00 134 10/14/17 10:45 130 06/18/17 10:45 130 37 96 06/18/17 10:30 131 38 101/61 (74) 93 06/18/17 10:30 131 06/18/17 10:19 131 104/64 06/18/17 10:15 127 06/18/17 10:15 127 38 96 06/18/17 10:12 126 28 104/64 (77) 100 06/18/17 10:12 126 06/18/17 10:00 125 06/18/17 10:00 125 30 98 06/18/17 09:45 124 06/18/17 09:45 124 34 99 06/18/17 09:30 126 22 125/71 (89) 98 06/18/17 09:30 126 06/18/17 09:15 126 32 100 06/18/17 09:15 126 06/18/17 09:00 126 32 122/82 (95) 96 06/18/17 09:00 126 06/18/17 08:45 132 39 100 06/18/17 08:45 132 06/18/17 08:30 128 25 98/73 (81) 100 06/18/17 08:30 128 I/O 06/18/17 06/18/17 06/18/17 06/19/17 06/19/17 06/19/17 07:00 15:00 23:00 07:00 15:00 23:00 Intake Total 310 ml 4360 ml 4267 ml Output Total 2001 ml Balance 310 ml 4360 ml 2266 ml IV Total 310 ml 4360 ml 3667 ml Packed Cells 400 ml Blood Product IV Normal Saline Flush 200 ml Output Urine Total 1450 ml Stool Total 1 ml Gastric Drainage Total 550 ml # Voids 1 # Bowel Movements 50 Imaging Last Impressions Chest X-Ray 06/18/17 0000 Signed Impressions: Service Date/Time: Sunday, June 18, 2017 16:15 - CONCLUSION: 1. Uncomplicated line placement. No evidence of pneumothorax. Eddie Saucedo MD Abdomen X-Ray 06/18/17 0000 Signed Impressions: Service Date/Time: Sunday, June 18, 2017 13:26 - CONCLUSION: 1. Findings of small bowel ileus. Eddie Saucedo MD Abdomen/Pelvis CT 06/17/17 0000 Signed Impressions: Service Date/Time: Saturday, June 17, 2017 13:35 - CONCLUSION: Dilatation of distal small bowel when compared to proximal. Minimal colonic gas is evident.. Zone of transition appears to be in the right lower quadrant. I can see the transition but not etiology for such. Alfredo Lora MD FACR Laboratory Test 06/18/17 11:59 06/18/17 13:10 06/18/17 13:15 06/18/17 16:20 Lactic Acid Level 8.0 mmol/L 6.6 mmol/L Blood Gas Puncture Site RT BRACHIAL Blood Gas Patient Temperature 98.6 Blood Gas HCO3 12 mmol/L Blood Gas Base Excess -10.8 mmol/L Blood Gas Oxygen Saturation 94 % Arterial Blood pH 7.47 Arterial Blood Partial Pressure CO2 17 mmHg Arterial Blood Partial Pressure O2 84 mmHg Arterial Blood Oxygen Content 16.0 Vol % Arterial Blood Carboxyhemoglobin 1.7 % Arterial Blood Methemoglobin 1.0 % Blood Gas Hemoglobin 12.0 G/DL Oxygen Delivery Device NASAL CANNULA Blood Gas Liter Flow 1 L/M Urine Color LIGHT-RED Urine Turbidity HAZY Urine pH 5.5 Urine Specific [place] 1.040 Urine Protein 30 mg/dL Urine Glucose (UA) TRACE mg/dL Urine Ketones NEG mg/dL Urine Occult Blood LARGE Urine Nitrite NEG Urine Bilirubin NEG Urine Urobilinogen LESS THAN 2.0 MG/DL Urine Leukocyte Esterase NEG Urine RBC /hpf Urine WBC 1 /hpf Urine Hyaline Casts 13 /lpf Urine Granular Casts 6 /lpf Microscopic Urinalysis Comment CATH-CULT NOT IND Blood Urea Nitrogen 39 MG/DL Creatinine 1.80 MG/DL Random Glucose 124 MG/DL Total Protein 3.8 GM/DL Albumin 1.1 GM/DL Calcium Level 6.4 MG/DL Alkaline Phosphatase 66 U/L Aspartate Amino Transf (AST/SGOT) 16 U/L Alanine Aminotransferase (ALT/SGPT) 13 U/L Total Bilirubin 1.3 MG/DL Sodium Level 142 MEQ/L Potassium Level 3.8 MEQ/L Chloride Level 106 MEQ/L Carbon Dioxide Level 23.3 MEQ/L Anion Gap 13 MEQ/L Estimat Glomerular Filtration Rate 38 ML/MIN Protein Corrected Calcium 8.1 MG/DL Random Cortisol 129.1 MCG/DL Test 06/18/17 16:40 06/18/17 17:15 06/19/17 05:50 06/19/17 07:55 Blood Gas Puncture Site CENTRAL LINE CENTRAL LINE Blood Gas Patient Temperature 98.6 98.6 Venous Blood pH 7.44 7.46 Venous Blood Partial Pressure CO2 34 mmHg 38 mmHg Venous Blood Partial Pressure O2 28 mmHg 33 mmHg Venous Blood HCO3 22 mmol/L 27 mmol/L Venous Blood Oxygen Saturation 45 % 58 % Venous Blood Oxygen Content 6.4 Vol % 8.2 Vol % Venous Blood Base Excess -1.2 mmol/L 3.1 mmol/L Oxygen Delivery Device NASAL CANNULA NASAL CANNULA Blood Gas Liter Flow 2 L/M 1.5 L/M White Blood Count 5.0 TH/MM3 8.2 TH/MM3 Red Blood Count 2.89 MIL/MM3 3.84 MIL/MM3 Hemoglobin 8.0 GM/DL 10.8 GM/DL Hematocrit 23.9 % 31.5 % Mean Corpuscular Volume 82.4 FL 82.0 FL Mean Corpuscular Hemoglobin 27.6 PG 28.0 PG Mean Corpuscular Hemoglobin Concent 33.4 % 34.2 % Red Cell Distribution Width 15.4 % 15.5 % Platelet Count 291 TH/MM3 284 TH/MM3 Mean Platelet Volume 7.7 FL 8.0 FL Neutrophils (%) (Auto) 81.3 % 90.1 % Lymphocytes (%) (Auto) 5.1 % 3.9 % Monocytes (%) (Auto) 13.4 % 5.4 % Eosinophils (%) (Auto) 0.1 % 0.4 % Basophils (%) (Auto) 0.1 % 0.2 % Neutrophils # (Auto) 4.0 TH/MM3 7.4 TH/MM3 Lymphocytes # (Auto) 0.3 TH/MM3 0.3 TH/MM3 Monocytes # (Auto) 0.7 TH/MM3 0.4 TH/MM3 Eosinophils # (Auto) 0.0 TH/MM3 0.0 TH/MM3 Basophils # (Auto) 0.0 TH/MM3 0.0 TH/MM3 CBC Comment AUTO DIFF AUTO DIFF Differential Total Cells Counted 100 100 Neutrophils % (Manual) 27 % 53 % Band Neutrophils % 59 % 38 % Lymphocytes % 4 % 3 % Monocytes % 1 % 5 % Neutrophils # (Manual) 4.8 TH/MM3 7.5 TH/MM3 Metamyelocytes 6 % Myelocytes 3 % Differential Comment FINAL DIFF MANUAL FINAL DIFF MANUAL Atypical Lymphocytes % Toxic Granulation 2+ Toxic Vacuolation PRESENT PRESENT Platelet Estimate NORMAL NORMAL Platelet Morphology Comment NORMAL NORMAL Red Cell Morphology Comment NORMAL NORMAL Eosinophils % 1 % Dohle Bodies PRESENT Blood Urea Nitrogen 37 MG/DL Creatinine 1.46 MG/DL Random Glucose 180 MG/DL Total Protein 4.4 GM/DL Albumin 1.6 GM/DL Calcium Level 7.1 MG/DL Magnesium Level 1.5 MG/DL Alkaline Phosphatase 60 U/L Aspartate Amino Transf (AST/SGOT) 26 U/L Alanine Aminotransferase (ALT/SGPT) 21 U/L Total Bilirubin 1.0 MG/DL Sodium Level 141 MEQ/L Potassium Level 3.3 MEQ/L Chloride Level 101 MEQ/L Carbon Dioxide Level 25.5 MEQ/L Anion Gap 15 MEQ/L Estimat Glomerular Filtration Rate 48 ML/MIN Lactic Acid Level 6.6 mmol/L Protein Corrected Calcium 8.6 MG/DL Date/Time Source Procedure Growth Status 06/17/17 16:30 Blood Peripheral Aerobic Blood Culture - Preliminary NO GROWTH IN 1 DAY Resulted 06/17/17 16:30 Blood Peripheral Anaerobic Blood Culture - Preliminary NO GROWTH IN 1 DAY Resulted 06/17/17 12:20 Urine Random Urine Urine Culture - Final 50-100,000 CFU/ML MIXED MARK... Complete Physical Examination HEENT: Normocephalic; atraumatic; no jaundice. CHEST: Resp. even/unlabored. Diminished throughout CARDIAC: ST ABDOMEN: Soft, mildly distended, mild diffuse tenderness; no hepatosplenomegaly ; bowel sounds Stool in ileostomy. NGT with large amount bilious material EXTREMITIES: No clubbing, cyanosis, or edema. SKIN: Normal; no rash; no jaundice. GUT DROPPER: No focal deficits; Lethargic and oriented times three. (Tami SandersonP) Assessment and Plan Plan ASSESSMENT: - Severe sepsis with lactic acidosis with concern for possible bowel ischemia. Pt presented to ER with abdominal pain, n/v, generalized weakness. CT scan abdomen and pelvis with IV contrast (06/17/17)---> Dilatation of the distal small bowel when compared to proximal. Minimal colonic gas is evidence. Zone of transition appears to be in the right lower quadrant. I can see the transition but not etiology for such. BCx no growth 1 day, Urine cx 50-100,000 CFU/mL mixed mark. GI consulted for egd/ileoscopy to evaluate for bowel ischemia. NPO. NGT to LIWS. ID consulted. Diflucan, Zosyn. Plan for EGD/Ileoscopy today. - PSBO. KUB (06/19/17)---> There continues to be multiple dilated loops of small bowel throughout the abdomen. The dilatation appears to be mildly increased compared to the prior examination. Finding suggest a distal small bowel obstruction versus and ileus. NGT to LIWS- 5L bilious material overnight. + stool in ileostomy bag. NPO. Keep NGT to LIWS. TPN ordered by Dr. Romero. - NEIL. Creat. 1.46. - Anemia. S/P 1 unit prbc. 31.5. - Metastatic colon cancer. S/P lower anterior resection/coloanal anastomosis, resection and reanastomosis of the left ureter with ureteral anastomosis and double-J stent placement, wedge resection of hepatic metastasis, mobilization of the splenic flexure, and diverting closed loop ileostomy with Dr. Geiger and Dr. Pelayo on 05/26/17. Dr. Noel is his oncologist, but he has not seen him since his surgery PLAN: - Plan for EGD/Ileoscopy today - Obtain consents - NPO - NGT to LIWS - TPN per Dr. Romero's orders - Abx per ID recommendations, Zosyn, Diflucan - Await blood cx - Cont. PPI for now - Monitor labs - Supportive care - Further recommendations to follow based on results of above - Pt seen and examined by Dr. Trevino and myself and this note is written on his behalf (Tami Sanderson) Physician Comments Seen and examined with AMMON, discussed with Drs. reynaga and Nick. EGD/Illeoscopy today. Further recs to follow. Thank you (Dwight Trevino MD) Tami Sanderson Jun 19, 2017 08:37 Dwight Trevino MD Jun 19, 2017 14:25
[2017-06-19] MEDS: FUROSEMIDE 20 MG/2 ML VIAL IV PUSH SCH ×2 (09:00→22:08)
--- NOTE | 2017-06-19 10:16 | ECHRPT ---
Indication: shortness of breath CONCLUSIONS BP: 104 / 58 HR: 73 Rhythm: Other MEASUREMENTS (Male / Female) Normal Values Technical Quality:Fair 2D ECHO LV Diastolic Diameter PLAX 2.7 cm 4.2 - 5.9 / 3.9 - 5.3 cm LV Systolic Diameter PLAX 2.0 cm IVS Diastolic Thickness 1.0 cm 0.6 - 1.0 / 0.6 - 0.9 cm LVPW Diastolic Thickness 1.0 cm 0.6 - 1.0 / 0.6 - 0.9 cm LV Relative Wall Thickness 0.8 RV Internal Dim ED PLAX 1.9 cm LVOT Diameter 1.9 cm LV Ejection Fraction MOD 4C 54.7 % LV Cardiac Index MOD 4C 2014.8 cm/minm LV Ejection Fraction 4C AL 55.1 % LV Cardiac Index 4C AL 2109.5 cm/minm M-MODE Aortic Root Diameter MM 3.5 cm LA Systolic Diameter MM 3.3 cm LA Ao Ratio MM 0.9 AV Cusp Separation MM 1.8 cm DOPPLER AV Peak Velocity 133.0 cm/s AV Peak Gradient 7.1 mmHg LVOT Peak Velocity 94.8 cm/s LVOT Peak Gradient 3.6 mmHg AV Area Cont Eq pk 2.0 cm MV Area PHT 3.8 cm Mitral E Point Velocity 92.8 cm/s Mitral A Point Velocity 91.8 cm/s Mitral E to A Ratio 1.0 LV E' Lateral Velocity 8.2 cm/s Mitral E to LV E' Lateral Ratio 11.3 LV E' Septal Velocity 6.2 cm/s Mitral E to LV E' Septal Ratio 14.9 PV Peak Velocity 71.9 cm/s PV Peak Gradient 2.1 mmHg FINDINGS LEFT VENTRICLE The left ventricular systolic function is low normal with an estimated ejection fraction in the rang e of 50- 55%. Normal left ventricular size. No regional wall motion abnormalities are present. Wall thickness is normal. RIGHT VENTRICLE The right ventricle was not well visualized. Normal right ventricular size and systolic function. LEFT ATRIUM The left atrial size is normal. RIGHT ATRIUM The right atrial size is normal. ATRIAL SEPTUM The interatrial septum not well visualized. AORTA The aortic root and proximal ascending aorta are normal in size on limited imaging. MITRAL VALVE The mitral valve is not well visualized. Mild thickening of the mitral valve leaflets. No mitral valve stenosis or regurgitation. AORTIC VALVE Trileaflet aortic valve. Aortic valve sclerosis is present. No aortic valve regurgitation. No aortic valve stenosis. TRICUSPID VALVE Structurally normal tricuspid valve. No tricuspid valve stenosis or regurgitation. Pulmonary arterial systolic pressure could not be estimated due to an insufficient tricuspid valve regurgitation doppler jet for measurement. . PULMONARY VALVE The pulmonary valve is not well visualized. VESSELS The inferior vena cava was not well visualized. PERICARDIUM No pericardial effusion. Esdras Candelaria MD (Electronically Signed) Final Date:19 June 2017 10:15
[2017-06-19] MEDS ORDERED: MIDAZOLAM HCL 2 MG/2 ML VIAL IV ONE (12:00)
[2017-06-19] MEDS ORDERED: LIDOCAINE HCL 1% PF 5 ML AMPULE OTHER ONE (12:00)
[2017-06-19] MEDS ORDERED: PROPOFOL 200 MG/20 ML AMP IV ONE (12:00)
[2017-06-19] MEDS: INSULIN ASPART SUPPLEMENTAL SCALE SQ SCH ×3 (12:00→20:00)
[2017-06-19] MEDS ORDERED: NORMOSOL R INJ 1,000 ML IV ONE (12:00)
[2017-06-19] MEDS ORDERED: ESMOLOL HCL 100 MG/10 ML VIAL IV ONE (12:00)
[2017-06-19] MEDS ORDERED: MAGNESIUM CITRATE SOLN 300 ML BTL PO SCH ×2 (12:00→18:00)
[2017-06-19] MEDS ORDERED: SUCCINYLCHOLINE CHLORIDE 100 MG/5 ML SYRINGE IV PUSH ONE (12:00)
[2017-06-19] MEDS ORDERED: KETAMINE HCL 500 MG/5 ML VIAL ONE (12:14)
[2017-06-19] MEDS ORDERED: SUGAMMADEX SODIUM 200 MG/2 ML VIAL IV PUSH ONE ×2 (12:14)
--- NOTE | 2017-06-19 13:06 | MB ---
cc: YANG CANTU MD DATE OF CONSULTATION: 06/19/2017. REASON FOR CONSULTATION: Severe sepsis. REQUESTING PHYSICIAN: Dr. Segovia. HISTORY OF PRESENT ILLNESS: This is a 67-year-old white male who was admitted to the hospital with weakness, abdominal pain and nausea. The patient is status post anterior resection of colon and rectal areas and anastomosis along with a diverting ileostomy and also resection of a segment of left ureter with ureteral anastomosis and double-J stent placement three weeks prior. He started feeling weak and was having abdominal pain and nausea and he was sent to the hospital for admission. The patient was noted to have an hepatic metastasis which was also excised. He was recently given Ciprofloxacin for probable urinary tract infection also. The patient has had tachycardia and also became hypotensive with systolic blood pressure in the 90s and his white blood cell count was elevated at 14.5 with 44% bands and also lactic acid elevations. A CT scan of the abdomen showed probable small bowel ileus. The patient was felt to probably be dehydrated as well. He was started on Zosyn and also given a Vancomycin dose. Blood cultures were taken on 06/17 and have no growth in two days. Urine culture came back with mixed mark. The urinalysis had revealed a large amount of occult blood and one white cell. The patient is currently awake and alert. He states that he feels dry. He has a nasogastric tube in place, which is connected to wall suction. His white blood cell count was elevated at 16.5 on 06/17 and today it is 8.2, but he continues to have bandemia. Abdominal x-ray today shows multiple dilated loops of small bowel which appear to be mildly increased. The patient feels that he has mild abdominal pain and has been feeling nauseated. PAST MEDICAL HISTORY: 1. Hypertension. 2. Left knee surgery. 3. Metastatic colon cancer status post resection and coloanal anastomosis and also resection and re-anastomosis of the left ureter with double-J stent placement. ALLERGIES: 1. CODEINE. MEDICATIONS: 1. Piperacillin / tazobactam. 2. Fluconazole. 3. Reglan. 4. Pantoprazole. 5. Vasopressin. 6. Milmine 5 PRN. 7. Zofran PRN. SOCIAL HISTORY: . Positive tobacco use. No alcohol. No illicit drug use. FAMILY HISTORY: Noncontributory. REVIEW OF SYSTEMS: Pertinents mentioned above in the history of present illness. PHYSICAL EXAMINATION: GENERAL: This is a slender male who is awake and alert. He is in no acute distress. He looks somewhat chronically ill. VITAL SIGNS: The vital signs include temperature 99 degrees, blood pressure 111/60, heart rate 95, respirations 20. HEAD, EYES, EARS, NOSE, THROAT: Extraocular movements grossly intact. Pupils reactive to light. No icterus. Oropharynx with dry mucosa. No visible lesions. NECK: The neck is supple without adenopathy. No jugular venous distention. LUNGS: Decreased clear breath sounds. HEART: Regular S1-S2 without murmurs, rubs or gallops. ABDOMEN: Diminished bowel sounds. Soft. Mild tenderness on palpation of the mid-abdomen. The patient has a colostomy tube in the right abdomen. GENITOURINARY: Normal genitalia. RECTAL: Not performed. EXTREMITIES: No clubbing or cyanosis or edema. The distal extremities are warm. SKIN: No rash. NEUROLOGIC: Nonfocal. PSYCHIATRIC: The patient is calm and cooperative. LABORATORY DATA WBCs 8.2, platelets 284,000, 90% neutrophils including 38% bands. Creatinine 1.46, BUN 37, estimated GFR 40, sodium 144, AST 26, ALT 21, total bilirubin 1.0. Lactic acid 6.6. IMPRESSION: 1. Bandemia in a patient with lactic acidosis. The patient is status post recent surgery for rectal cancer and recent ureteral resection and double J ureteral stent. Probable severe sepsis based on parameters including hypotension. 2. Probable ischemic bowel. 3. Decreased renal function probably secondary to dehydration. 4. Negative cultures to-date. RECOMMENDATIONS: 1. Continue Fluconazole. 2. Continue piperacillin / tazobactam. 3. Follow the blood cultures. 4. Agree with the investigation for possible ischemic bowel. 5. Monitor the white blood cell count and temperature. It is not clear that this presentation is purely due to sepsis. However, the patient's cultures will be monitored closely and medical status will be monitored as well from an infection standpoint. Thank you this consultation. His progress will be monitored and further recommendations will be given upon followup. Discussed the impression with the patient's and I have also discussed the impression with the RN. Yang F. Dontfraid, MD FD/DEMETRICE /11:52 AM /12:44 PM MTDD
--- NOTE | 2017-06-19 13:25 | GIPROC ---
[facility] [address] [facility]. [facility], [address] EGD PROCEDURE REPORT EXAM DATE: 06/19/2017 PATIENT NAME: Luca Armendariz MR #: [id number] BIRTHDATE: 1950 ATTENDING: Dwight Trevino MD ORDER #: [id number] CHILD LIFE THERAPIST: Cindi Bermudez and Irena Kinney STATUS: inpatient INDICATIONS: The patient is a 67 yr old male here for an EGD due to abdominal pain, bloating, and vomiting PROCEDURE PERFORMED: EGD w/ biopsy MEDICATIONS: None and Per Anesthesia. TOPICAL ANESTHETIC: CONSENT: The patient understands the risks and benefits of the procedure and understands that these risks include, but are not limited to: sedation, allergic reaction, infection, perforation and/or bleeding. Alternative means of evaluation and treatment include, among others: physical exam, x-rays, and/or surgical intervention. The patient elects to proceed with this endoscopic procedure. medical equipment was checked for proper function. Hand hygiene and appropriate measures for infection prevention was taken. After the risks, benefits and alternatives of the procedure were thoroughly explained, Informed consent was verified, confirmed and timeout was successfully executed by the treatment team. The patient was anesthetized with topical anesthesia and the Pentax EG-[id number] endoscope was introduced through the mouth and advanced to the second portion of the duodenum. Retroflexed views revealed no abnormalities The gastroscope was then slowly withdrawn and removed. ESOPHAGUS: There was LA Class B esophagitis noted. STOMACH: There was erythematous severe gastritis in the gastric body and gastric antrum. 2400cc of fluid suctioned from the stomach. ? gastric volvulous. ADVERSE EVENTS: There were no complications. IMPRESSIONS: 1. There was LA Class B esophagitis noted 2. There was erythematous gastritis in the gastric body and gastric antrum; 2400cc of fluid suctioned from the stomach. ? gastric volvulous 3. Retroflexed views revealed no abnormalities RECOMMENDATIONS: 1. Await biopsy results. Biopsy results will not be ready for 7-10 days. If you don't hear from us in two weeks, call our office for biopsy results. 2. Xray: UGI SERIES 3. Xray: Small bowel follow through PATIENT CONDITION: stable DISPOSITION: Inpatient REPEAT EXAM: Return as needed for EGD Dwight Trevino MD eSigned: Dwight Trevino MD 06/19/2017 1:25 PM cc: Eddie Romero M.D. PATIENT NAME: Luca Armendariz MR#: [id number]
--- NOTE | 2017-06-19 13:29 | GIPROC ---
[facility] [address] [facility]. [facility], [address] COLONOSCOPY PROCEDURE REPORT EXAM DATE: 06/19/2017 PATIENT NAME: Luca Armendariz MR #: [id number] BIRTHDATE: 1950 ENDOSCOPIST: Dwight Trevino MD ORDER #: [id number] TEENAGE PROGRAM DIRECTOR: Cindi Bermudez and Irena Kinney STATUS: inpatient INDICATIONS: The patient is a 67 yr old male here for a colonoscopy due to abdominal pain and vomiting PROCEDURE PERFORMED: Colonoscopy via stoma and biopsy MEDICATIONS: None and Per Anesthesia. PREP QUALITY: good ESTIMATED BLOOD LOSS: None CONSENT: The patient understands the risks and benefits of the procedure and understands that these risks include, but are not limited to: sedation, allergic reaction, infection, perforation and/or bleeding. Alternative means of evaluation and treatment include, among others: physical exam, x-rays, and/or surgical intervention. The patient elects to proceed with this endoscopic procedure. medical equipment was checked for proper function. Hand hygiene and appropriate measures for infection prevention was taken. After the risks, benefits and alternatives of the procedure were thoroughly explained, Informed consent was verified, confirmed and timeout was successfully executed by the treatment team. A digital exam The New ItemEG-[id number] (Std Gastro) endoscope was introduced through the anus and advanced to the cecum, which was identified by both the appendix and ileocecal valve. The instrument was then slowly withdrawn as the colon was fully examined. COLON FINDINGS: Abnormal small bowel mucosa to 15cm. Pseudomembranous illeitis. ? ischemia. The scope was then completely withdrawn from the patient and the procedure terminated. ADVERSE EVENTS: There were no complications. IMPRESSIONS: Abnormal small bowel mucosa to 15cm. Pseudomembranous illeitis. ? ischemia RECOMMENDATIONS: 1. Await biopsy results. Biopsy results will not be ready for 7-10 days. If you don't hear from us in two weeks, call our office for results. 2. Xray for Small bowel follow through RECALL: Colonoscopy as needed Dwight Trevino MD eSigned: Dwight Trevino MD 06/19/2017 1:28 PM cc: Eddie Romero M.D.
[2017-06-19] MEDS ORDERED: DO NOT ADM ANY ANTICOAGULANT DRUGS PRN (13:38)
[2017-06-19] MEDS ORDERED: *morphine SULFATE 8 MG/ML PERIprocedure ONLY ONE (13:43)
[2017-06-19] MEDS ORDERED: VANCOMYCIN 1,000 MG/NS 250 ML IV ONE ×2 (15:00)
[2017-06-19] MEDS ORDERED: DIATRIZOATE MEGLUM/DIATRIZOATE SOD 9 ML CUP PO ONE (15:00)
[2017-06-19] MEDS ORDERED: BISACODYL EC 5 MG TABEC PO SCH ×2 (18:00→21:00)
[2017-06-19] MEDS: VANCOMYCIN 500 MG VIAL (FOR ORAL USE ONLY) NG SCH ×2 (18:00→22:08)
[2017-06-19] MEDS ORDERED: MIDAZOLAM HCL 5 MG/ML VIAL (1 ML) ONE (19:02)
[2017-06-19] MEDS ORDERED: AMIODARONE INJ 900 MG in DEXTROSE 5% IN WATE 500 ML INJ 482 ML IV PRN ×2 (19:13)
[2017-06-19] MEDS: MAGNESIUM SULFATE 1 GM PREMIX 100 ML IV SCH ×3 (19:15→21:15)
[2017-06-19] MEDS ORDERED: TERBUTALINE INJ 1 MG/ML AMP SQ PRN (19:15)
[2017-06-19] MEDS: POTASSIUM CHLOR 40 MEQ PREMIX 100 ML IV SCH ×2 (19:15→23:28)
[2017-06-19] MEDS ORDERED: MIDAZOLAM HCL 2 MG/2 ML VIAL IV PUSH ONE (19:15)
--- NOTE | 2017-06-19 19:15 | PD.PROCEDR ---
Procedure Note Procedure DATE: 06/19/2017 Synchronized cardioversion INDICATION: Unstable A. fib with RVR CONSENT Informed consent for procedure was obtained from patient. DESCRIPTION OF THE PROCEDURE The patient was placed in supine position. Patient was given 2 mg Versed 1. Significant as cardioversion unsuccessful 100 200 J. Potassium is 3.3 and magnesium 1.5.. Started on amiodarone drip after 300 mg bolus and Giorgio- Synephrine for vasopressor support. ESTIMATED BLOOD LOSS: Minimal COMPLICATIONS: No apparent complications. Leroy Musa MD Jun 19, 2017 19:14
[2017-06-19] MEDS ORDERED: DIGOXIN 0.5 MG/2 ML VIAL IV PUSH ONE (19:30)
[2017-06-19] MEDS ORDERED: AMIODARONE INJ 150 MG in DEXTROSE 5% IN WATER 100ML INJ 100 ML IV ONE ×2 (19:42)
[2017-06-19] MEDS ORDERED: AMIODARONE INJ 300 MG in DEXTROSE 5% IN WATER 100ML INJ 94 ML IV ONE ×2 (19:45)
[2017-06-19] MEDS: PHENYLEPHRINE INJ 160 MG in DEXTROSE 5% IN WATE 500 ML INJ 484 ML IV PRN ×2 (19:46)
[2017-06-19] MEDS: AMIODARONE INJ 450 MG in D5W (EXCEL BAG) INJ 241 ML IV SCH (20:46)
[2017-06-19 21:12] LABS: C. DIFF EPI 027 PRESUMPTIVE NEGATIVE (NEGATIVE)
[2017-06-19] MEDS: SODIUM CHLORIDE IV-CENTRAL SCH ×10 (22:04)
[2017-06-19] MEDS: [UNRECOGNIZED DRUG - OTHER] IV-CENTRAL SCH ×10 (22:04)
[2017-06-19] MEDS: SODIUM ACETATE IV-CENTRAL SCH ×10 (22:04)
[2017-06-19] MEDS: FAT EMULSION 20% INJ 250 ML (@10 mls/hr) IV-CENTRAL SCH (22:06)
[2017-06-19] MEDS ORDERED: DILTIAZEM HCL 25 MG/5 ML VIAL IV ONE ×2 (22:45→23:15)
[2017-06-19] MEDS ORDERED: METOPROLOL TARTRATE 5 MG/5 ML VIAL IV PUSH ONE (23:15)
[2017-06-20] VITALS (17 sets, daily range): BP systolic 103–125; BP diastolic 51–82; PULSE 77–139; RESP 16–35; TEMP 99.1–102.1; O2SAT 99–100
[2017-06-20] MEDS: VASOPRESSIN INJ 40 UNITS in DEXTROSE 5% IN WATER 100ML INJ 98 ML IV SCH ×4 (00:49→16:04)
[2017-06-20] MEDS: PIPERACIL-TAZO 3.375 GM PREMIX 50 ML IV SCH ×4 (01:18→20:04)
[2017-06-20] MEDS ORDERED: DIATRIZOATE MEGLUM/DIATRIZOATE SOD 9 ML CUP PO SCH (03:15)
[2017-06-20] MEDS: CHLORHEXIDINE GLUCONATE 2 % 1 PACK (2 CLOTHS)(taper/protocol) TOPICAL SCH (04:00)
[2017-06-20] MEDS: INSULIN ASPART SUPPLEMENTAL SCALE SQ SCH ×6 (04:00→20:00)
[2017-06-20] MEDS ORDERED: ROCURONIUM INJ 100 MG/10 ML VIAL IV ONE (04:45)
[2017-06-20] MEDS ORDERED: SODIUM CHLOR 0.9% 1000 ML INJ 1,000 ML IV ONE (04:45)
[2017-06-20] MEDS ORDERED: METOPROLOL TARTRATE 5 MG/5 ML VIAL IV PUSH ONE (04:45)
[2017-06-20] MEDS ORDERED: ETOMIDATE 40 MG/20 ML VIAL IV PUSH ONE (04:45)
[2017-06-20] MEDS ORDERED: PROPOFOL 500 MG/50 ML INJ 50 ML ONE (04:48)
--- NOTE | 2017-06-20 04:59 | PD.PROCEDR ---
Procedure Note Procedure Procedure DATE: 06/20/2017 PROCEDURE: Orotracheal intubation INDICATION: Acute respiratory failure DETAILS OF PROCEDURE The patient was placed in optimal position and preoxygenated with 100% FiO2 via bag valve mask. At the start oxygen saturation was 100%. The patient was administered 20 mg etomidate IV and 50 mg etomidate IV. I entered the oropharynx with a size 4 GVL Glidescope blade and obtained a grade 2 view of the airway. On single attempt a size 8.0 cuffed endotracheal tube was passed through the vocal cords. Correct tube location was confirmed with end tidal CO2 detector and by auscultating over bilateral lung pacheco. The endotracheal tube was secured with adhesive tape at a depth of 24 cm at the lips. The patient was connected to the ventilator. The patient tolerated the procedure well without any apparent complications. Oxygen saturations were maintained greater than 95% all times. STAT chest x-ray pending at time of dictation. Leroy Musa MD Jun 20, 2017 04:59
[2017-06-20] MEDS: AMIODARONE INJ 450 MG in D5W (EXCEL BAG) INJ 241 ML IV SCH ×3 (05:15→22:43)
[2017-06-20] MEDS: SODIUM BICARBONATE 8.4% INJ 100 MEQ in DEXTROSE 5% IN WATE 1000ML INJ 1,000 ML IV SCH ×2 (05:15)
--- NOTE | 2017-06-20 05:40 | RADRPT ---
EXAM DATE/TIME: 06/20/2017 04:14 [facility] COMPARISON: CHEST SINGLE AP, June 19, 2017, 7:17. INDICATIONS : Shortness of breath, possible pulmonary disease. MEDICAL HISTORY : Carcinoma, rectal. Hypertension Inguinal hernia SURGICAL HISTORY : Colostomy. Appendectomy. Uretheral stent ENCOUNTER: Subsequent ACUITY: 3 days PAIN SCORE: Non-responsive. LOCATION: Bilateral chest FINDINGS: The cardiac silhouette is enlarged in transverse diameter. There are findings of congestive heart elijah lure with interstitial and alveolar opacity bilaterally. The findings have worsened when compared wit h the prior examination. Support lines and tubes are in satisfactory position. Moderate size bilatera l pleural effusions are identified. CONCLUSION: 1. Cardiomegaly and findings of congestive heart failure. The findings have worsened when compared wi th the prior examination. Eddie Saucedo MD on June 20, 2017 at 5:38 Board Certified Radiologist. This report was verified electronically.
--- NOTE | 2017-06-20 05:44 | RADRPT ---
EXAM DATE/TIME: 06/20/2017 05:05 [facility] COMPARISON: CHEST SINGLE AP, June 20, 2017, 4:14. INDICATIONS : ET tube placement. MEDICAL HISTORY : Carcinoma, rectal. Hypertension SURGICAL HISTORY : Colostomy. Appendectomy. ENCOUNTER: Subsequent ACUITY: 4 - 6 days PAIN SCORE: Non-responsive. LOCATION: Bilateral chest FINDINGS: The cardiac silhouette is normal in transverse diameter. There is patchy alveolar disease bilaterally compatible with edema or pneumonia. Moderate size bilateral pleural effusions are identified. Endotr acheal T-tube is below the antolin and can be retracted 3 cm. CONCLUSION: 1. Endotracheal tube below the antolin. It should be retracted 3 cm Eddie Saucedo MD on June 20, 2017 at 5:42 Board Certified Radiologist. This report was verified electronically.
[2017-06-20 05:57] LABS: BLOOD GAS BASE EXCESS 4.1 mmol/L (-2-2); BLOOD GAS CARBOXYHEMOGLOBIN 1.3 % (0-4); BLOOD GAS HCO3 28 mmol/L (22-26); BLOOD GAS METHEMOGLOBIN 1.1 % (0-2); BLOOD GAS O2 HGB SATURATION 97 % (90-100); BLOOD GAS OXYGEN CONTENT 14.7 Vol % (12.0-20.0); BLOOD GAS PCO2 41 mmHg (38-42); BLOOD GAS PO2 211 mmHg (61-120); BLOOD GAS TOTAL HGB 10.4 G/DL (12.0-16.0); CRITICAL VALUE NO; OXYGEN DEVICE VENTILATOR; TEMP CORR TO 98.6
[2017-06-20 05:58] LABS: DRAW SITE ALINE; FIO2 80 %; STAT NO
[2017-06-20] MEDS ORDERED: DIATRIZOATE MEGLUM/DIATRIZOATE SOD 9 ML CUP PO ONE (06:45)
[2017-06-20] MEDS: ALBUMIN 25% INJ 100 ML IV SCH (06:46)
[2017-06-20 07:18] LABS: BLOOD GAS BASE EXCESS 3.9 mmol/L (-2-2); BLOOD GAS CARBOXYHEMOGLOBIN 1.5 % (0-4); BLOOD GAS HCO3 27 mmol/L (22-26); BLOOD GAS METHEMOGLOBIN 1.2 % (0-2); BLOOD GAS O2 HGB SATURATION 89 % (90-100); BLOOD GAS OXYGEN CONTENT 13.2 Vol % (12.0-20.0); BLOOD GAS PCO2 37 mmHg (38-42); BLOOD GAS PO2 60 mmHg (61-120); BLOOD GAS TOTAL HGB 10.6 G/DL (12.0-16.0); TEMP CORR TO 98.6
[2017-06-20 07:19] LABS: CRITICAL VALUE YES; DRAW SITE ART LINE; FIO2 50 %; LITER FLOW 6 L/M; OXYGEN DEVICE VENTURI MASK; STAT YES
[2017-06-20] MEDS: CHLORHEXIDINE 0.12% (ORAL KIT) 15 ML CUP MT SCH ×2 (08:00→20:06)
[2017-06-20] MEDS: FLUCONAZOLE 200 MG PREMIX BAG 100 ML IV SCH (08:00)
[2017-06-20 08:01] LABS: AUTOMATED NEUTROPHIL # 7.4 TH/MM3 (1.8-7.7); BASOPHIL % 0.4 % (0.0-2.0); EOSINOPHIL # 0.3 TH/MM3 (0-0.4); EOSINOPHIL % 3.3 % (0.0-4.0); LYMPH % 4.7 % (9.0-44.0); LYMPHOCYTE # 0.4 TH/MM3 (1.0-4.8); MEAN CELL VOLUME 83.5 FL (80.0-100.0); MEAN CORPUSCULAR HEMOGLOBIN 27.9 PG (27.0-34.0); MEAN CORPUSCULAR HGB CONC 33.4 % (32.0-36.0); MONO % 3.3 % (0.0-8.0); NEUT % 88.3 % (16.0-70.0); PLATELET COUNT 226 TH/MM3 (150-450); RED BLOOD COUNT 3.72 MIL/MM3 (4.50-5.90); RED CELL DISTRIBUTION WIDTH 15.7 % (11.6-17.2); WHITE BLOOD COUNT 8.4 TH/MM3 (4.0-11.0)
--- NOTE | 2017-06-20 08:01 | RADRPT ---
EXAM DATE/TIME: 06/20/2017 07:42 [facility] COMPARISON: CT ABDOMEN & PELVIS W/O CONTRAST, June 20, 2017, 7:39. INDICATIONS : Ileus, evaluate for gastric vovulus. RADIATION DOSE: 5.1 CTDIvol (mGy) ; Combined studies - Thorax/Abdomen/Pelvis MEDICAL HISTORY : Hypertension. SURGICAL HISTORY : Non-responsive. ENCOUNTER: Subsequent ACUITY: 3 days PAIN SCALE: Non-responsive LOCATION: Bilateral chest TECHNIQUE: Volumetric scanning of the chest was performed. Using automated exposure control and adjustment of t he mA and/or kV according to patient size, radiation dose was kept as low as reasonably achievable to obtain optimal diagnostic quality images. DICOM format image data is available electronically for r eview and comparison. Follow-up recommendations for detected pulmonary nodules are based at a minimum on nodule size and pa tient risk factors according to Fleischner Society Guidelines. FINDINGS: The heart is normal in size. There is no significant pericardial effusion. There is atherosclerotic p laquing in the coronary arteries. No hilar or mediastinal adenopathy is seen. There is a central veno us catheter in satisfactory position. The examination demonstrates bilateral pleural effusions and consolidative changes in both lower lobe s. There is diffuse interstitial prominence suggesting interstitial edema. No suspicious mass lesions are seen within the pulmonary parenchyma. There are COPD changes. The limited portions of upper abdomen visualized are unremarkable. The visualized bony structures demonstrate degenerative changes but are otherwise intact. CONCLUSION: 1. Bilateral effusions and consolidative changes in both lung bases. Bao Lora MD on June 20, 2017 at 7:57 Board Certified Radiologist. This report was verified electronically.
--- NOTE | 2017-06-20 08:02 | RADRPT ---
EXAM DATE/TIME: 06/20/2017 07:39 [facility] COMPARISON: No previous studies available for comparison. INDICATIONS : Evaluate for gastric vovulus ORAL CONTRAST: Prescribed oral contrast ingested. RADIATION DOSE: 5.1 CTDIvol (mGy) ; Combined studies - Thorax/Abdomen/Pelvis MEDICAL HISTORY : Hypertension. SURGICAL HISTORY : None. ENCOUNTER: Initial ACUITY: 3 days PAIN SCALE: Non-responsive LOCATION: Bilateral abdomen. TECHNIQUE: Volumetric scanning of the abdomen and pelvis was performed. Using automated exposure control and ad justment of the mA and/or kV according to patient size, radiation dose was kept as low as reasonably achievable to obtain optimal diagnostic quality images. DICOM format image data is available electro nically for review and comparison. FINDINGS: LOWER LUNGS: Small bilateral pleural effusions. Bibasilar densities/consolidation LIVER: Homogeneous density without lesion. There is no dilation of the biliary tree. No calcified gallston es. SPLEEN: Normal size without lesion. PANCREAS: Within normal limits. KIDNEYS: Normal in size and shape. There is no mass, stone, or hydronephrosis. Left-sided nephroureteral sten t in good position. No hydronephrosis on the left. ADRENAL GLANDS: Within normal limits. VASCULAR: Extensive atherosclerotic changes. There is no aortic aneurysm. BOWEL/MESENTERY: Stomach is mildly dilated. No definite volvulus. Multiple dilated loops of small bowel. Minimal site he's adjacent to the liver and right paracolic gutter. Right-sided ostomy. There is no free intraper itoneal air. ABDOMINAL WALL: Within normal limits. RETROPERITONEUM: There is no lymphadenopathy. BLADDER: No wall thickening or mass. REPRODUCTIVE: Within normal limits. INGUINAL: There is no lymphadenopathy or hernia on the left. Fat containing right-sided inguinal hernia which a lso contains portion of the urinary bladder and some minimal fluid. MUSCULOSKELETAL: Within normal limits for patient age. CONCLUSION: 1. Dilated stomach and multiple dilated loops of small bowel, likely ileus. 2. No definite gastric volvulus. 3. Fat containing right inguinal hernia which also contains small portion of the urinary bladder and minimal fluid. 4. Left-sided nephroureteral stent in good position. 5. Bibasilar consolidation and small pleural effusions. Sarwat Suarez MD on June 20, 2017 at 7:55 Board Certified Radiologist. This report was verified electronically.
[2017-06-20 08:05] LABS: HEMO FLAGS AUTO DIFF
[2017-06-20 08:10] LABS: APTT (PATIENT) 52.3 SEC (24.3-30.1); INTERNATIONAL NORMALIZED RATIO 1.8 RATIO; PROTHROMBIN TIME - PATIENT 20.4 SEC (9.8-11.6)
[2017-06-20] MEDS ORDERED: HEPARIN-D5W 25,000 U/250 ML 250 ML IV PRN (08:45)
[2017-06-20 08:47] LABS: BICARBONATE 29.3 MEQ/L (21.0-32.0); CALCIUM-PROTEIN CORRECTED 8.5 MG/DL (8.5-10.1); DIGOXIN 0.7 NG/ML (0.8-2.0); TOTAL BILIRUBIN ADULT 0.6 MG/DL (0.2-1.0)
[2017-06-20 08:48] LABS: BANDS 16 % (0-6); EOSINOPHILS 3 % (0-4); METAMYELOCYTES 4 % (0-1); MYELOCYTES 4 % (0-0); POLYS (SEG NEUTROPHILS) 47 % (16-70); SCAN/DIFF FINAL DIFF MANUAL; TOXIC GRANULATION 2+ (NORMAL); TOXIC VACUOLATION PRESENT (NONE SEEN); WBC DIFF SAMPLE 100
[2017-06-20 08:55] LABS: POTASSIUM 2.9 MEQ/L (3.5-5.1)
[2017-06-20] MEDS ORDERED: RESP: ALBUTEROL 2.5 MG/IPRATROPIUM 0.5 MG NEB (PRN) NEB (09:15)
--- NOTE | 2017-06-20 09:19 | HHI.CCPN ---
Subjective Remarks/Hospital Course The patient is a 67-year-old male with past medical history of hypertension, metastatic colon cancer, tobacco abuse, who, about 3 weeks ago underwent low anterior resection with low colorectal anastomosis, diverting ileostomy, and resection of a segment of the left ureter with ureteral anastomosis and double- J stent placement. He presented yesterday with 5 day history of abdominal discomfort and increasing weakness. No history of high output from ileostomy. He was admitted to the colorectal surgery for dehydration and probable UTI. He was placed on ciprofloxacin and IV hydration. According to Dr. Geiger's note it was difficult dissection/resection colon mass because of the pelvic sidewall adherence and the adherence to the left ureter. A portion of ureter was resected due to possibility of tumor infiltration, and Dr. Augustine Pelayo re- anastomosed the ureter and placed left-sided double-J stent. Also 1 cm hepatic metastasis in his liver that was excised. Hospitalist consultation was requested for medical management and evaluation of tachycardia today. He was seen by Dr. Jay and was placed on infusion of Cardizem for heart rate 140s. Patient became hypotensive with systolic blood pressure early 90s. Lab work showed WBC 14.5 with 44% bands, creat increase from 1.2 to 1.4 and severely increased lactate at 8 from admission lactate of 2.6. CT of the abdomen pelvis done yesterday showed probable small bowel ileus. I evaluated the patient in the ICU. He is tachycardic in 140s, hypotensive and systolic blood pressure in mid 80s. Clinically appears very dehydrated, an NG tube was placed with approximately 3 L of some coffee-ground output. ABG shows a base excess of -10 and bicarbonate 12. I have ordered 4 liter normal saline boluses start 1 amp of bicarbonate, discontinued the LR infusion, and started bicarb gtt. Discontinue ciprofloxacin, started Zosyn every 6 hours, vancomycin 1 g 1. His elevated lactic acid and bandemia most likely secondary to severe sepsis, ileus, and severe dehydration. Serial lactate is ordered SUBJ 06/19: Lactic acid remains elevated at 6.6 despite getting 9 L of crystalloid boluses in last 24 hours. Tachycardia has improved heart rate in 110s. Remains on vasopressin at 0.04 units/min. Urine output almost 1200 mL overnight, OGT initial output was almost 3 L when placed yesterday a.m. Overnight had 550 mL of greenish brown fluid output. EGD pending today rule out gastric ischemia per Dr. Romero. Apparently Flex sig was negative post op in Dr. Geiger's office 06/20: Developed A. fib with RVR. Heart rate 200. Hemodynamically unstable, synchronized cardioversion attempted by Dr. Morales 100 200 J. Given 3 g mag sulfate and 80 mEq KCl 1, 0.5 digoxin 1 and started on amiodarone and Giorgio- Synephrine. Intubated due to hemodynamic instability. Currently remains sedated. Currently on Giorgio-Synephrine 80 mcg/m, and amiodarone. CT chest abdomen pelvis again confirms gastric and small bowel distention/ileus. UO 1800 ml in 24 hours Objective Vital Signs Date Time Temp Pulse Resp B/P (MAP) Pulse Ox O2 Delivery O2 Flow Rate FiO2 06/20/17 06:00 114 06/20/17 05:15 100/45 06/20/17 04:45 100 80 06/19/17 20:00 Nasal Cannula 4.00 06/19/17 16:00 98.5 18 Intake and Output 06/20/17 06/20/17 06/21/17 08:00 16:00 00:00 Intake Total 1400 ml Output Total 1325 ml Balance 75 ml Result Diagram: 06/20/17 0710 06/19/17 0550 Other Results Microbiology Date/Time Source Procedure Growth Status 06/17/17 12:20 Urine Random Urine Urine Culture - Final 50-100,000 CFU/ML MIXED NOAH... Complete Laboratory Tests Test 06/20/17 04:23 06/20/17 05:38 Blood Gas Puncture Site ART LINE JOSEMANUEL Blood Gas Patient Temperature 98.6 98.6 Blood Gas HCO3 27 mmol/L (22-26) 28 mmol/L (22-26) Blood Gas Base Excess 3.9 mmol/L (-2-2) 4.1 mmol/L (-2-2) Blood Gas Oxygen Saturation 89 % (90-100) 97 % (90-100) Arterial Blood pH 7.48 (7.380-7.420) 7.45 (7.380-7.420) Arterial Blood Partial Pressure CO2 37 mmHg (38-42) 41 mmHg (38-42) Arterial Blood Partial Pressure O2 60 mmHg (61-120) 211 mmHg (61-120) Arterial Blood Oxygen Content 13.2 Vol % (12.0-20.0) 14.7 Vol % (12.0-20.0) Arterial Blood Carboxyhemoglobin 1.5 % (0-4) 1.3 % (0-4) Arterial Blood Methemoglobin 1.2 % (0-2) 1.1 % (0-2) Blood Gas Hemoglobin 10.6 G/DL (12.0-16.0) 10.4 G/DL (12.0-16.0) Oxygen Delivery Device VENTURI MASK VENTILATOR Blood Gas Liter Flow 6 L/M Blood Gas Inspired Oxygen 50 % 80 % Blood Gas Ventilator Setting SEE COMMENT Imaging CT abdomen pelvis shows distal small bowel dilatation Chest x-ray no acute findings KUB shows ileus Objective Remarks Infusions: Amiodarone Giorgio-Synephrine IV heparin being started Propofol TPN GENERAL: Well-developed and well-nourished male intubated heavily sedated SKIN: Warm and dry. HEENT: Extraocular muscles intact. NECK: The neck is supple. LIJ central line in place CHEST:Few coarse rhonchi Equal bilaterally. Hypoxemic CVS: Tachycardic atrial fibrillation. Currently on Giorgio-Synephrine at 80 mcg/m. No murmurs ABDOMEN: Abdomen is flat, soft, diffuse mild tenderness. Incision appears healing well. Ileostomy is functioning well. EXTREMITIES: No pedal edema or cyanosis NEURO: Intubated heavily sedated. Moves all extremities A/P Assessment and Plan ASSESSMENT Septic shock Acute kidney injury Acute hypoxemic respiratory failure Ileus Lactic acidemia A. fib with RVR UTI s/p Left colectomy with colorectal anastomosis, diverting ileostomy, wedge resection of liver metastasis s/p Partial resection of the left ureter with anastomosis and placement of double-J stent Hypertension Tobacco abuse Hypokalemia, hypomagnesemia PLAN: NEURO: - Propofol for sedation and ventilator synchrony RESP: - ACV PEEP 5. FiO2 80%. Wean as tolerated - No weaning trials and that'll FiO2 less than 50% CV: - Giorgio-Synephrine to keep map above 65 - Cardioverted 2 without success and amiodarone started for A. fib with RVR with hemodynamic compromise - Start IV Heparin - s/p Normal saline IV fluids 8L boluses on 06/18/17 - CVP was 6 yesterday, trend lactic acid currently trending down - 2D Echo normal LV function - Continue fluid resuscitation GI: - NPO, Protonix gtt, TPN - Gastroenterology Dr. Saldana. EGD 06/19. Evidence of esophagitis, and erythematous gastritis in the gastric body and gastric antrum - Concern of gastric volvulous on EGD, but CT today did not show gastric volvulus. Positive gastric and SB dilatation/Ileus - D/W Dr. Tran - IV Reglan 5 mg q8hr - Prev CT abdomen pelvis and KUB shows small bowel ileus : - Monitor renal function closely. Han catheter. UO adequate - IVF resuscitation as above ID: - Continue IV Zosyn and Diflcuan until cultures are back. ID consulted Dr. Espinoza - PO Vancomycin started by CRS, I have added IV Flagyl and DCd vancomycin - F/u blood and urine culture HEME: - Monitor CBC, CMP ENDO: - Electrolyte replacement per protocol - Aggressive K and Mag replacement PROPH: -Bilateral lower extremity SCDs. IV Heparin, IV Protonix gtt LINES: - Left IJ central line placed CC time 78 min discontinuously and excluding procedures Critically ill and hemodynamically unstable currently on amiodarone for A. fib and Giorgio-Synephrine to maintain blood pressure. Remains hypoxemic. Discussed extensively with Dr. Tran. updated several times Shiva Segovia MD Jun 20, 2017 09:19
--- NOTE | 2017-06-20 09:27 | HHI.PR ---
Subjective Remarks Events of weekend D/W Dr Romero on Tuesday and Tuesday in my absence. Pt had CT and intubated this AM. Resting comfortably. CT reviewed. D/W Dr Segovia this AM Objective Vital Signs Date Time Temp Pulse Resp B/P (MAP) Pulse Ox O2 Delivery O2 Flow Rate FiO2 06/20/17 06:00 114 06/20/17 05:15 130 100/45 06/20/17 04:45 100 80 06/20/17 04:00 139 06/20/17 02:00 96 06/20/17 00:00 88 06/19/17 22:00 130 06/19/17 20:46 146 98/53 06/19/17 20:00 171 06/19/17 20:00 94 Nasal Cannula 4.00 06/19/17 19:52 154 88/53 06/19/17 19:46 170 88/51 06/19/17 18:00 102 06/19/17 16:00 102 06/19/17 16:00 98.5 88 18 102/45 (64) 94 06/19/17 15:30 102 9 102/58 (73) 92 93/45 (61) 06/19/17 15:15 106 22 102/47 (65) 93 06/19/17 15:00 107 24 105/57 (73) 91 91/46 (61) 06/19/17 14:45 101 23 110/49 (69) 93 06/19/17 14:30 105 24 92/58 (69) 93 06/19/17 14:25 107 27 108/60 (76) 06/19/17 14:15 92 24 112/59 (76) 95 Nasal Cannula 4 06/19/17 14:15 102 24 94 06/19/17 14:00 102 06/19/17 14:00 89 24 120/61 (80) 97 Nasal Cannula 4 06/19/17 14:00 100 25 112/60 (77) 95 06/19/17 13:50 98.0 100 24 99/48 (65) 91 Nasal Cannula 4 06/19/17 13:45 103 20 06/19/17 13:41 105 30 112/59 (76) 06/19/17 13:30 104 120/61 (80) 99 118/55 (76) 06/19/17 13:15 103 99/49 (66) 100 06/19/17 13:00 120 155/84 (107) 100 06/19/17 12:45 95 06/19/17 12:30 101 101/56 (71) 87 06/19/17 12:24 106 27 113/58 (76) 94 06/19/17 12:22 96 32 109/55 (73) 06/19/17 12:15 100 06/19/17 12:00 102 06/19/17 12:00 95 35 113/60 (77) 91 06/19/17 12:00 98 28 113/60 (77) 92 06/19/17 10:00 97 06/19/17 09:45 102 30 93 06/19/17 09:30 98 25 99/58 (72) 92 I/O 06/19/17 06/19/17 06/19/17 06/20/17 06/20/17 06/20/17 07:00 15:00 23:00 07:00 15:00 23:00 Intake Total 4267 ml 1100 ml 4712.5 ml 2456.1 ml 100 ml Output Total 2001 ml 4200 ml 841 ml 1325 ml Balance 2266 ml -3100 ml 3871.5 ml 1131.1 ml 100 ml IV Total 3667 ml 100 ml 4712.5 ml 2456.1 ml 100 ml Packed Cells 400 ml Blood Product IV Normal Saline Flush 200 ml Other 1000 ml Output Urine Total 1450 ml 840 ml 960 ml Stool Total 1 ml 200 ml 1 ml 15 ml Gastric Drainage Total 550 ml 3200 ml 350 ml Other 800 ml # Bowel Movements 50 Result Diagram: 06/20/17 0710 06/20/17 0710 Objective Remarks VS-S Rate now controlled. Abd: moderate distention, Ileostomy pink Labs; much improved. CT gastric distention. Assessment and Plan Assessment and Plan Stable at present but critical D/W . Will check KUB for N/G placement. Cannot see on CT Luca Geiger MD Jun 20, 2017 09:27
[2017-06-20] MEDS ORDERED: FUROSEMIDE 20 MG/2 ML VIAL IV PUSH ONE (10:00)
[2017-06-20] MEDS: VANCOMYCIN 500 MG VIAL (FOR ORAL USE ONLY) NG SCH ×4 (10:20→20:05)
[2017-06-20] MEDS: METOCLOPRAMIDE HCL 10 MG/2 ML VIAL IV PUSH SCH ×2 (10:21→17:04)
[2017-06-20] MEDS: POTASSIUM CHLOR 40 MEQ PREMIX 100 ML IV SCH ×2 (10:27→14:10)
[2017-06-20] MEDS: metroNIDAZOLE 500 MG INJ 100 ML IV SCH ×2 (10:28→17:05)
[2017-06-20] MEDS ORDERED: POTASSIUM CHLORIDE INJ 40 MEQ in SODIUM CHLORID 0.9% 500 ML INJ 500 ML IV-CENTRAL ONE (10:30)
[2017-06-20] MEDS: PROPOFOL 1000 MG/100 ML INJ 100 ML IV PRN ×2 (10:42→18:41)
[2017-06-20] MEDS: RESP: ALBUTEROL 2.5 MG/IPRATROPIUM 0.5 MG NEB (SCH) NEB ×4 (10:46→23:12)
--- NOTE | 2017-06-20 10:50 | RADRPT ---
EXAM DATE/TIME: 06/20/2017 10:46 [facility] COMPARISON: ABDOMEN KUB ONLY, June 20, 2017, 9:35. INDICATIONS : N/G tube placement. MEDICAL HISTORY : Carcinoma, rectal. Hypertension SURGICAL HISTORY : Colostomy. Appendectomy. ENCOUNTER: Subsequent ACUITY: 4 - 6 days PAIN SCORE: Non-responsive. LOCATION: Abdomen FINDINGS: Portable supine AP view of the abdomen demonstrates abnormally dilated small bowel, unchanged from th e earlier examination. Partially visualized left ureteral stent is present. Nasogastric tube is prese nt with distal tip in the gastric cardia region. However, sentinel hole is in the distal esophagus. N o organomegaly is present. There is a small left basilar pleural parenchymal opacity. CONCLUSION: 1. Nasogastric tube distal tip is in the gastric cardia region likely just beyond the GE junction. Ho wever, sentinel hole is in the distal esophagus. Suggest advancement. 2. Abnormally dilated small bowel, unchanged from the earlier study and suspicious for small bowel ob struction. Luca Torres MD on June 20, 2017 at 11:22 Board Certified Radiologist. This report was verified electronically.
[2017-06-20] MEDS: PANTOPRAZOLE 80 MG/100 ML NS IV SCH ×4 (12:24→20:06)
--- NOTE | 2017-06-20 13:01 | HHI.IDPN ---
Note Infectious Disease Note Patient on vent. intubated last night. Sedated. Large amount of bilious gastric suction. Afebrile. On Neosynephrine. C. dif positive. Discussed with RN. Admitted to the hospital with weakness, abdominal pain and nausea. The patient is status post anterior resection of colon and rectal areas and anastomosis along with a diverting ileostomy and also resection of a segment of left ureter with ureteral anastomosis and double-J stent placement three weeks prior. He was recently given Ciprofloxacin for probable urinary tract infection also. PAST MEDICAL HISTORY: 1. Hypertension. 2. Left knee surgery. 3. Metastatic colon cancer status post resection and coloanal anastomosis and also resection and re-anastomosis of the left ureter with double-J stent placement. ALLERGIES: 1. CODEINE. MEDICATIONS: 1. Piperacillin / tazobactam. 2. Fluconazole. 3. Metronidazole. 4. PO Vancomycin. SOCIAL HISTORY: . Positive tobacco use. No alcohol. No illicit drug use. OBJECTIVE: Vital Signs Date Time Temp Pulse Resp B/P (MAP) Pulse Ox O2 Delivery O2 Flow Rate FiO2 06/20/17 09:33 100 55 06/20/17 06:00 114 06/20/17 05:15 130 100/45 06/20/17 04:45 100 80 06/20/17 04:00 139 06/20/17 02:00 96 06/20/17 00:00 88 06/19/17 22:00 130 06/19/17 20:46 146 98/53 06/19/17 20:00 171 06/19/17 20:00 94 Nasal Cannula 4.00 06/19/17 19:52 154 88/53 06/19/17 19:46 170 88/51 06/19/17 18:00 102 06/19/17 16:00 102 06/19/17 16:00 98.5 88 18 102/45 (64) 94 06/19/17 15:30 102 9 102/58 (73) 92 93/45 (61) 06/19/17 15:15 106 22 102/47 (65) 93 06/19/17 15:00 107 24 105/57 (73) 91 91/46 (61) 06/19/17 14:45 101 23 110/49 (69) 93 06/19/17 14:30 105 24 92/58 (69) 93 06/19/17 14:25 107 27 108/60 (76) 06/19/17 14:15 92 24 112/59 (76) 95 Nasal Cannula 4 06/19/17 14:15 102 24 94 06/19/17 14:00 102 06/19/17 14:00 89 24 120/61 (80) 97 Nasal Cannula 4 06/19/17 14:00 100 25 112/60 (77) 95 06/19/17 13:50 98.0 100 24 99/48 (65) 91 Nasal Cannula 4 06/19/17 13:45 103 20 06/19/17 13:41 105 30 112/59 (76) 06/19/17 13:30 104 120/61 (80) 99 118/55 (76) 06/19/17 13:15 103 99/49 (66) 100 06/19/17 13:00 120 155/84 (107) 100 Laboratory Tests Test 06/19/17 18:18 06/19/17 20:55 06/20/17 01:21 06/20/17 04:23 Stool C. difficile Toxin (PCR) POSITIVE Stl C. difficile Toxin Epiderm 027 PRESUMPTIVE NEGATIVE Lactic Acid Level 5.4 mmol/L 4.7 mmol/L Phosphorus Level 2.6 MG/DL Troponin I 0.07 NG/ML Blood Gas Puncture Site ART LINE Blood Gas Patient Temperature 98.6 Blood Gas HCO3 27 mmol/L Blood Gas Base Excess 3.9 mmol/L Blood Gas Oxygen Saturation 89 % Arterial Blood pH 7.48 Arterial Blood Partial Pressure CO2 37 mmHg Arterial Blood Partial Pressure O2 60 mmHg Arterial Blood Oxygen Content 13.2 Vol % Arterial Blood Carboxyhemoglobin 1.5 % Arterial Blood Methemoglobin 1.2 % Blood Gas Hemoglobin 10.6 G/DL Oxygen Delivery Device VENTURI MASK Blood Gas Liter Flow 6 L/M Blood Gas Inspired Oxygen 50 % Test 06/20/17 05:38 06/20/17 07:10 06/20/17 08:40 Blood Gas Puncture Site JOSEMANUEL Blood Gas Patient Temperature 98.6 Blood Gas HCO3 28 mmol/L Blood Gas Base Excess 4.1 mmol/L Blood Gas Oxygen Saturation 97 % Arterial Blood pH 7.45 Arterial Blood Partial Pressure CO2 41 mmHg Arterial Blood Partial Pressure O2 211 mmHg Arterial Blood Oxygen Content 14.7 Vol % Arterial Blood Carboxyhemoglobin 1.3 % Arterial Blood Methemoglobin 1.1 % Blood Gas Hemoglobin 10.4 G/DL Oxygen Delivery Device VENTILATOR Blood Gas Ventilator Setting SEE COMMENT Blood Gas Inspired Oxygen 80 % White Blood Count 8.4 TH/MM3 Red Blood Count 3.72 MIL/MM3 Hemoglobin 10.4 GM/DL Hematocrit 31.0 % Mean Corpuscular Volume 83.5 FL Mean Corpuscular Hemoglobin 27.9 PG Mean Corpuscular Hemoglobin Concent 33.4 % Red Cell Distribution Width 15.7 % Platelet Count 226 TH/MM3 Mean Platelet Volume 8.2 FL Neutrophils (%) (Auto) 88.3 % Lymphocytes (%) (Auto) 4.7 % Monocytes (%) (Auto) 3.3 % Eosinophils (%) (Auto) 3.3 % Basophils (%) (Auto) 0.4 % Neutrophils # (Auto) 7.4 TH/MM3 Lymphocytes # (Auto) 0.4 TH/MM3 Monocytes # (Auto) 0.3 TH/MM3 Eosinophils # (Auto) 0.3 TH/MM3 Basophils # (Auto) 0.0 TH/MM3 CBC Comment AUTO DIFF Differential Total Cells Counted 100 Neutrophils % (Manual) 47 % Band Neutrophils % 16 % Lymphocytes % 11 % Monocytes % 15 % Eosinophils % 3 % Neutrophils # (Manual) 6.0 TH/MM3 Metamyelocytes 4 % Myelocytes 4 % Differential Comment FINAL DIFF MANUAL Toxic Granulation 2+ Toxic Vacuolation PRESENT Prothrombin Time 20.4 SEC Prothromb Time International Ratio 1.8 RATIO Activated Partial Thromboplast Time 52.3 SEC Blood Urea Nitrogen 27 MG/DL Creatinine 1.00 MG/DL Random Glucose 276 MG/DL Total Protein 5.0 GM/DL Albumin 2.6 GM/DL Calcium Level 7.3 MG/DL Alkaline Phosphatase 43 U/L Aspartate Amino Transf (AST/SGOT) 26 U/L Alanine Aminotransferase (ALT/SGPT) 21 U/L Total Bilirubin 0.6 MG/DL Sodium Level 134 MEQ/L Potassium Level 2.9 MEQ/L Chloride Level 95 MEQ/L Carbon Dioxide Level 29.3 MEQ/L Anion Gap 10 MEQ/L Estimat Glomerular Filtration Rate 74 ML/MIN Protein Corrected Calcium 8.5 MG/DL Digoxin Level 0.7 NG/ML Lactic Acid Level 2.9 mmol/L IMAGING: Abdomen X-Ray 06/20/17 1023 Signed Impressions: Service Date/Time: Tuesday, June 20, 2017 10:46 - CONCLUSION: 1. Nasogastric tube distal tip is in the gastric cardia region likely just beyond the GE junction. However, sentinel hole is in the distal esophagus. Suggest advancement. 2. Abnormally dilated small bowel, unchanged from the earlier study and suspicious for small bowel obstruction. Luca Torres MD Chest X-Ray 06/20/17 0600 Signed Impressions: Service Date/Time: Tuesday, June 20, 2017 04:14 - CONCLUSION: 1. Cardiomegaly and findings of congestive heart failure. The findings have worsened when compared with the prior examination. Eddie Saucedo MD Chest CT 06/20/17 0000 Signed Impressions: Service Date/Time: Tuesday, June 20, 2017 07:42 - CONCLUSION: 1. Bilateral effusions and consolidative changes in both lung bases. Bao Lora MD Abdomen/Pelvis CT 06/20/17 0000 Signed Impressions: Service Date/Time: Tuesday, June 20, 2017 07:39 - CONCLUSION: 1. Dilated stomach and multiple dilated loops of small bowel, likely ileus. 2. No definite gastric volvulus. 3. Fat containing right inguinal hernia which also contains small portion of the urinary bladder and minimal fluid. 4. Left-sided nephroureteral stent in good position. 5. Bibasilar consolidation and small pleural effusions. Sawrat Suarez MD PHYSICAL EXAMINATION: GENERAL: No acute distress. HEAD, EYES, EARS, NOSE, THROAT: No icterus. Oropharynx with dry mucosa. NECK: The neck is supple without adenopathy. No jugular venous distention. LUNGS: Decreased clear breath sounds. HEART: Regular S1-S2 without murmurs, rubs or gallops. ABDOMEN: Diminished bowel sounds. Soft. Mild distension. Colostomy tube in the right abdomen. GENITOURINARY: Normal genitalia. EXTREMITIES: No clubbing or cyanosis or edema. The distal extremities are warm. SKIN: No rash. NEUROLOGIC: Nonfocal. IMPRESSION: 1. Bandemia in a patient with lactic acidosis. The patient is status post recent surgery for rectal cancer and recent ureteral resection and double J ureteral stent. Probable severe sepsis based on parameters including hypotension. 2. Probable ischemic bowel. 3. hypotension probably secondary to dehydration. 4. C difficile colitis. 5. Acute respiratory failure. RECOMMENDATIONS: 1. Continue Fluconazole. 2. Continue piperacillin / tazobactam. 3. Continue Flagyl and Vancomycin. 4. Follow the blood cultures. 5. Monitor the white blood cell count and temperature. El Espinoza MD Jun 20, 2017 13:01
[2017-06-20 13:16] LABS: HEMATOCRIT 31.2 % (39.0-51.0); MEAN CELL VOLUME 81.6 FL (80.0-100.0); MEAN CORPUSCULAR HEMOGLOBIN 27.6 PG (27.0-34.0); MEAN CORPUSCULAR HGB CONC 33.8 % (32.0-36.0); PLATELET COUNT 190 TH/MM3 (150-450); RED BLOOD COUNT 3.82 MIL/MM3 (4.50-5.90); RED CELL DISTRIBUTION WIDTH 15.7 % (11.6-17.2); REVIEW FLAG FINAL; WHITE BLOOD COUNT 8.1 TH/MM3 (4.0-11.0)
[2017-06-20 15:02] LABS: APTT (PATIENT) 44.2 SEC (24.3-30.1)
[2017-06-20 15:32] LABS: MAGNESIUM 2.1 MG/DL (1.5-2.5); POTASSIUM 3.7 MEQ/L (3.5-5.1)
--- NOTE | 2017-06-20 15:41 | HHI.GIFU ---
Subjective Remarks Nurse reports that patient developed respiratory distress this am and required emergent intubation and mechanical ventilation. Sedated on vent. NGT to LIWS- large amount of bilious material. Abdomen distended, diffuse tenderness. Ileostomy bag with small amount of stool. (Tami Sanderson) Objective Vitals I&O Vital Signs Date Time Temp Pulse Resp B/P (MAP) Pulse Ox O2 Delivery O2 Flow Rate FiO2 06/20/17 14:00 96 06/20/17 12:00 100 45 06/20/17 12:00 99.7 107 27 125/59 (81) 100 06/20/17 12:00 107 06/20/17 10:00 110 06/20/17 09:33 100 55 06/20/17 08:00 99.1 100 16 124/82 (96) 100 06/20/17 08:00 100 06/20/17 07:10 100 100 06/20/17 07:00 100 Mechanical Ventilator 45 Nasal Cannula Simple Mask 06/20/17 06:00 114 06/20/17 05:15 130 100/45 06/20/17 04:45 100 80 06/20/17 04:00 139 06/20/17 02:00 96 06/20/17 00:00 88 06/19/17 22:00 130 06/19/17 20:46 146 98/53 06/19/17 20:00 171 06/19/17 20:00 94 Nasal Cannula 4.00 06/19/17 19:52 154 88/53 06/19/17 19:46 170 88/51 06/19/17 18:00 102 06/19/17 16:00 102 06/19/17 16:00 98.5 88 18 102/45 (64) 94 06/19/17 15:30 102 9 102/58 (73) 92 93/45 (61) I/O 06/19/17 06/19/17 06/19/17 06/20/17 06/20/17 06/20/17 07:00 15:00 23:00 07:00 15:00 23:00 Intake Total 4267 ml 1100 ml 4712.5 ml 2456.1 ml 795 ml Output Total 2001 ml 4200 ml 841 ml 1325 ml Balance 2266 ml -3100 ml 3871.5 ml 1131.1 ml 795 ml IV Total 3667 ml 100 ml 4712.5 ml 2456.1 ml 795 ml Packed Cells 400 ml Blood Product IV Normal Saline Flush 200 ml Other 1000 ml Output Urine Total 1450 ml 840 ml 960 ml Stool Total 1 ml 200 ml 1 ml 15 ml Gastric Drainage Total 550 ml 3200 ml 350 ml Other 800 ml # Bowel Movements 50 Laboratory Laboratory Tests Test 06/19/17 18:18 06/19/17 20:55 06/20/17 01:21 06/20/17 04:23 Stool C. difficile Toxin (PCR) POSITIVE Stl C. difficile Toxin Epiderm 027 PRESUMPTIVE NEGATIVE Lactic Acid Level 5.4 4.7 Phosphorus Level 2.6 Troponin I 0.07 Blood Gas Puncture Site ART LINE Blood Gas Patient Temperature 98.6 Blood Gas HCO3 27 Blood Gas Base Excess 3.9 Blood Gas Oxygen Saturation 89 Arterial Blood pH 7.48 Arterial Blood Partial Pressure CO2 37 Arterial Blood Partial Pressure O2 60 Arterial Blood Oxygen Content 13.2 Arterial Blood Carboxyhemoglobin 1.5 Arterial Blood Methemoglobin 1.2 Blood Gas Hemoglobin 10.6 Oxygen Delivery Device VENTURI MASK Blood Gas Liter Flow 6 Blood Gas Inspired Oxygen 50 Test 06/20/17 05:38 06/20/17 07:10 06/20/17 08:40 06/20/17 12:45 Blood Gas Puncture Site JOSEMANUEL Blood Gas Patient Temperature 98.6 Blood Gas HCO3 28 Blood Gas Base Excess 4.1 Blood Gas Oxygen Saturation 97 Arterial Blood pH 7.45 Arterial Blood Partial Pressure CO2 41 Arterial Blood Partial Pressure O2 211 Arterial Blood Oxygen Content 14.7 Arterial Blood Carboxyhemoglobin 1.3 Arterial Blood Methemoglobin 1.1 Blood Gas Hemoglobin 10.4 Oxygen Delivery Device VENTILATOR Blood Gas Ventilator Setting SEE COMMENT Blood Gas Inspired Oxygen 80 White Blood Count 8.4 8.1 Red Blood Count 3.72 3.82 Hemoglobin 10.4 10.5 Hematocrit 31.0 31.2 Mean Corpuscular Volume 83.5 81.6 Mean Corpuscular Hemoglobin 27.9 27.6 Mean Corpuscular Hemoglobin Concent 33.4 33.8 Red Cell Distribution Width 15.7 15.7 Platelet Count 226 190 Mean Platelet Volume 8.2 8.2 Neutrophils (%) (Auto) 88.3 Lymphocytes (%) (Auto) 4.7 Monocytes (%) (Auto) 3.3 Eosinophils (%) (Auto) 3.3 Basophils (%) (Auto) 0.4 Neutrophils # (Auto) 7.4 Lymphocytes # (Auto) 0.4 Monocytes # (Auto) 0.3 Eosinophils # (Auto) 0.3 Basophils # (Auto) 0.0 CBC Comment AUTO DIFF Differential Total Cells Counted 100 Neutrophils % (Manual) 47 Band Neutrophils % 16 Lymphocytes % 11 Monocytes % 15 Eosinophils % 3 Neutrophils # (Manual) 6.0 Metamyelocytes 4 Myelocytes 4 Differential Comment FINAL DIFF MANUAL Toxic Granulation 2+ Toxic Vacuolation PRESENT Prothrombin Time 20.4 Prothromb Time International Ratio 1.8 Activated Partial Thromboplast Time 52.3 Blood Urea Nitrogen 27 Creatinine 1.00 Random Glucose 276 Total Protein 5.0 Albumin 2.6 Calcium Level 7.3 Alkaline Phosphatase 43 Aspartate Amino Transf (AST/SGOT) 26 Alanine Aminotransferase (ALT/SGPT) 21 Total Bilirubin 0.6 Sodium Level 134 Potassium Level 2.9 Chloride Level 95 Carbon Dioxide Level 29.3 Anion Gap 10 Estimat Glomerular Filtration Rate 74 Protein Corrected Calcium 8.5 Digoxin Level 0.7 Lactic Acid Level 2.9 3.2 Magnesium Level 2.1 Test 06/20/17 14:15 Activated Partial Thromboplast Time 44.2 Lactic Acid Level 3.2 Date/Time Source Procedure Growth Status 06/17/17 16:30 Blood Peripheral Aerobic Blood Culture - Preliminary NO GROWTH IN 3 DAYS Resulted 06/17/17 16:30 Blood Peripheral Anaerobic Blood Culture - Preliminary NO GROWTH IN 3 DAYS Resulted 06/17/17 12:20 Urine Random Urine Urine Culture - Final 50-100,000 CFU/ML MIXED MARK... Complete Imaging Last Impressions Abdomen X-Ray 06/20/17 1023 Signed Impressions: Service Date/Time: Tuesday, June 20, 2017 10:46 - CONCLUSION: 1. Nasogastric tube distal tip is in the gastric cardia region likely just beyond the GE junction. However, sentinel hole is in the distal esophagus. Suggest advancement. 2. Abnormally dilated small bowel, unchanged from the earlier study and suspicious for small bowel obstruction. Luca Torres MD Chest X-Ray 06/20/17 0600 Signed Impressions: Service Date/Time: Tuesday, June 20, 2017 04:14 - CONCLUSION: 1. Cardiomegaly and findings of congestive heart failure. The findings have worsened when compared with the prior examination. Eddie Saucedo MD Chest CT 06/20/17 0000 Signed Impressions: Service Date/Time: Tuesday, June 20, 2017 07:42 - CONCLUSION: 1. Bilateral effusions and consolidative changes in both lung bases. Bao Lora MD Abdomen/Pelvis CT 06/20/17 0000 Signed Impressions: Service Date/Time: Tuesday, June 20, 2017 07:39 - CONCLUSION: 1. Dilated stomach and multiple dilated loops of small bowel, likely ileus. 2. No definite gastric volvulus. 3. Fat containing right inguinal hernia which also contains small portion of the urinary bladder and minimal fluid. 4. Left-sided nephroureteral stent in good position. 5. Bibasilar consolidation and small pleural effusions. Sarwat Suarez MD Physical Exam HEENT: Normocephalic; atraumatic; no jaundice. CHEST: OETT to vent. Course breath sounds. CARDIAC: ST ABDOMEN: Semifirm, distended, diffuse tenderness, ileostomy with small amount of stool. EXTREMITIES: No clubbing, cyanosis, or edema. SKIN: Normal; no rash; no jaundice. 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 Pt presented to ER with abdominal pain, n/v, generalized weakness. CT scan abdomen and pelvis with IV contrast (06/17/17)---> Dilatation of the distal small bowel when compared to proximal. Minimal colonic gas is evidence. Zone of transition appears to be in the right lower quadrant. I can see the transition but not etiology for such. BCx no growth 1 day, Urine cx 50-100,000 CFU/mL mixed mark. GI consulted for egd/ileoscopy to evaluate for bowel ischemia. S/P EGD/Colonoscopy (06/19/17)----> 1. There was LA Class B esophagitis noted 2. There was erythematous gastritis in the gastric body and gastric antrum; 2. 400cc of fluid suctioned from the stomach. ? gastric volvulus 3. Retroflexed views revealed no abnormalities Abnormal small bowel mucosa to 15cm. Pseudomembranous illeitis. ? ischemia. Pathology pending. CDiff PCR (+) Epid 027 (-). ID following. CT scan abdomen and pelvis without contrast (06/20/17)---> dilated stomach and multiple dilated loops of small bowel, likely ileus. No definite gastric volvulus. Fat containing right ingional hernia which also contains small portion of the urinary bladder and minimal fluid. Left sided nephroureteral stent in good position. bibasilar consolidation and small pleural effusions. KUB (06/20/17)--> Nasogastric tube distal tip is in the gastric cardia region likely just beyond the GE junction. However , sentinel hole is in the distal esophagus, suggest advancement. Abnormally dilated small bowel obstruction. ID consulted. Flagyl, Oral Vanco, Diflucan , Zosyn. - CDiff. Oral vanco/Flagyl. ID following - PSBO/?Gastric volvulus. ? Volvulus on egd. Upper gi series ordered, d/c'd by CRS. CT scan abdomen and pelvis without contrast (06/20/17)---> dilated stomach and multiple dilated loops of small bowel, likely ileus. No definite gastric volvulus. Fat containing right ingional hernia which also contains small portion of the urinary bladder and minimal fluid. Left sided nephroureteral stent in good position. bibasilar consolidation and small pleural effusions. KUB (06/20/17)--> Nasogastric tube distal tip is in the gastric cardia region likely just beyond the GE junction. However, sentinel hole is in the distal esophagus, suggest advancement. Abnormally dilated small bowel obstruction. NGT to LIWS. TPN - NEIL. Creat. 1.00 - Anemia. S/P 1 unit prbc. .2. - Metastatic colon cancer. S/P lower anterior resection/coloanal anastomosis, resection and reanastomosis of the left ureter with ureteral anastomosis and double-J stent placement, wedge resection of hepatic metastasis, mobilization of the splenic flexure, and diverting closed loop ileostomy with Dr. Geiger and Dr. Pelayo on 05/26/17. Dr. Noel is his oncologist, but he has not seen him since his surgery PLAN: - NPO - NGT to LIWS - Cont. TPN - Await pathology - Abx per ID recommendations, Zosyn, Diflucan, Oral Vanco, Flagyl - Cont. PPI - Monitor labs - Supportive care - Further recommendations to follow based on results of above - Pt seen and examined by Dr. Guaman and myself and this note is written on his behalf (Tami Sanderson) Physician Comments Patient seen and examined Agree with above Continue with current supportive care Monitor labs Not much to add from a GI perspective, we will sign off (Brijesh Guaman MD) Tami Sanderson Jun 20, 2017 15:41 Brijesh Guaman MD Jun 20, 2017 20:21
[2017-06-20] MEDS: ACETAMINOPHEN 650 MG/20.3 ML UDC PO PRN (17:04)
[2017-06-20] MEDS: SODIUM PHOSPHATE INJ 30 MMOL in SODIUM CHLOR 0.9% 250 ML INJ 240 ML IV PRN (17:06)
[2017-06-20] MEDS: FAT EMULSION 20% INJ 250 ML (@10 mls/hr) IV-CENTRAL SCH (20:05)
[2017-06-20 21:04] LABS: APTT (PATIENT) 77.9 SEC (24.3-30.1); INTERNATIONAL NORMALIZED RATIO 1.2 RATIO; PROTHROMBIN TIME - PATIENT 13.8 SEC (9.8-11.6)
[2017-06-20] MEDS: PHENYLEPHRINE INJ 160 MG in DEXTROSE 5% IN WATE 500 ML INJ 484 ML IV PRN ×2 (23:16)
[2017-06-21] VITALS (18 sets, daily range): BP systolic 93–129; BP diastolic 48–81; PULSE 72–121; RESP 16–33; TEMP 98.7–100.6; O2SAT 94–100
[2017-06-21] MEDS: metroNIDAZOLE 500 MG INJ 100 ML IV SCH ×3 (00:07→16:31)
[2017-06-21 00:08] LABS: APTT (PATIENT) 122.1 SEC (24.3-30.1)
[2017-06-21] MEDS: METOCLOPRAMIDE HCL 10 MG/2 ML VIAL IV PUSH SCH ×3 (00:08→16:32)
[2017-06-21] MEDS: PIPERACIL-TAZO 3.375 GM PREMIX 50 ML IV SCH ×4 (01:03→20:35)
[2017-06-21] MEDS: POTASSIUM CHLOR 40 MEQ PREMIX 100 ML IV PRN ×2 (01:03→03:31)
[2017-06-21] MEDS: AMIODARONE INJ 450 MG in D5W (EXCEL BAG) INJ 241 ML IV SCH ×3 (01:19→15:01)
[2017-06-21] MEDS: PROPOFOL 1000 MG/100 ML INJ 100 ML IV PRN ×3 (03:30→23:37)
[2017-06-21] MEDS: RESP: ALBUTEROL 2.5 MG/IPRATROPIUM 0.5 MG NEB (SCH) NEB ×4 (03:34→20:40)
[2017-06-21 03:59] LABS: APTT (PATIENT) 73.1 SEC (24.3-30.1)
[2017-06-21] MEDS: INSULIN ASPART SUPPLEMENTAL SCALE SQ SCH ×6 (04:00→20:34)
[2017-06-21] MEDS: CHLORHEXIDINE GLUCONATE 2 % 1 PACK (2 CLOTHS)(taper/protocol) TOPICAL SCH (04:00)
--- NOTE | 2017-06-21 06:07 | RADRPT ---
EXAM DATE/TIME: 06/21/2017 04:13 [facility] COMPARISON: CHEST SINGLE AP, June 20, 2017, 5:05. INDICATIONS : Short of breath. MEDICAL HISTORY : Hypertension. SURGICAL HISTORY : Appendectomy. ENCOUNTER: Subsequent ACUITY: 4 - 6 days PAIN SCORE: 0/10 LOCATION: Bilateral chest FINDINGS: The cardiac silhouette is normal in transverse diameter. There is left lower lobe atelectasis versus pneumonia. A small left sided effusion is present. Endotracheal tube is in good position above the ca maricano. There is prominence of the central pulmonary vasculature with indistinct vascular margins mere tible with vascular congestion but no evidence of overt failure. CONCLUSION: 1. Cardiomegaly and findings of vascular congestion without overt failure. 2. Left lower lobe atelectasis versus pneumonia. Small left effusion Eddie Saucedo MD on June 21, 2017 at 6:04 Board Certified Radiologist. This report was verified electronically.
[2017-06-21] MEDS ORDERED: BUMETANIDE INJ 1 MG/4 ML VIAL IV PUSH ONE ×2 (06:45→14:00)
[2017-06-21] MEDS ORDERED: POTASSIUM CHLOR 40 MEQ PREMIX 100 ML IV ONE (06:45)
[2017-06-21] MEDS: PANTOPRAZOLE 80 MG/100 ML NS IV SCH ×2 (06:45)
--- NOTE | 2017-06-21 06:53 | HHI.CCPN ---
Subjective Remarks/Hospital Course The patient is a 67-year-old male with past medical history of hypertension, metastatic colon cancer, tobacco abuse, who, about 3 weeks ago underwent low anterior resection with low colorectal anastomosis, diverting ileostomy, and resection of a segment of the left ureter with ureteral anastomosis and double- J stent placement. He presented yesterday with 5 day history of abdominal discomfort and increasing weakness. No history of high output from ileostomy. He was admitted to the colorectal surgery for dehydration and probable UTI. He was placed on ciprofloxacin and IV hydration. According to Dr. Geiger's note it was difficult dissection/resection colon mass because of the pelvic sidewall adherence and the adherence to the left ureter. A portion of ureter was resected due to possibility of tumor infiltration, and Dr. Augustine Pelayo re- anastomosed the ureter and placed left-sided double-J stent. Also 1 cm hepatic metastasis in his liver that was excised. Hospitalist consultation was requested for medical management and evaluation of tachycardia today. He was seen by Dr. Jya and was placed on infusion of Cardizem for heart rate 140s. Patient became hypotensive with systolic blood pressure early 90s. Lab work showed WBC 14.5 with 44% bands, creat increase from 1.2 to 1.4 and severely increased lactate at 8 from admission lactate of 2.6. CT of the abdomen pelvis done yesterday showed probable small bowel ileus. I evaluated the patient in the ICU. He is tachycardic in 140s, hypotensive and systolic blood pressure in mid 80s. Clinically appears very dehydrated, an NG tube was placed with approximately 3 L of some coffee-ground output. ABG shows a base excess of -10 and bicarbonate 12. I have ordered 4 liter normal saline boluses start 1 amp of bicarbonate, discontinued the LR infusion, and started bicarb gtt. Discontinue ciprofloxacin, started Zosyn every 6 hours, vancomycin 1 g 1. His elevated lactic acid and bandemia most likely secondary to severe sepsis, ileus, and severe dehydration. Serial lactate is ordered SUBJ 06/19: Lactic acid remains elevated at 6.6 despite getting 9 L of crystalloid boluses in last 24 hours. Tachycardia has improved heart rate in 110s. Remains on vasopressin at 0.04 units/min. Urine output almost 1200 mL overnight, OGT initial output was almost 3 L when placed yesterday a.m. Overnight had 550 mL of greenish brown fluid output. EGD pending today rule out gastric ischemia per Dr. Romero. Apparently Flex sig was negative post op in Dr. Geiger's office 06/20: Developed A. fib with RVR. Heart rate 200. Hemodynamically unstable, synchronized cardioversion attempted by Dr. Morales 100 200 J. Given 3 g mag sulfate and 80 mEq KCl 1, 0.5 digoxin 1 and started on amiodarone and Giorgio- Synephrine. Intubated due to hemodynamic instability. Currently remains sedated. Currently on Giorgio-Synephrine 80 mcg/m, and amiodarone. CT chest abdomen pelvis again confirms gastric and small bowel distention/ileus. UO 1800 ml in 24 hours 06/21: Remains critically ill, intubated sedated, on 100 mcg/min neosynpehrine. HR better controlled. NG output 1500, UO >1.4L. Am labs pending. Ileostomy sample positive for C Diff on PO vanc IV Flagyl. Objective Vital Signs Date Time Temp Pulse Resp B/P (MAP) Pulse Ox O2 Delivery O2 Flow Rate FiO2 06/21/17 06:00 92 06/21/17 04:28 100 45 06/21/17 04:00 98.9 22 115/59 (77) 93/52 (66) 06/20/17 20:00 Mechanical Ventilator Nasal Cannula Simple Mask 06/19/17 20:00 4.00 Intake and Output 06/21/17 06/21/17 06/22/17 08:00 16:00 00:00 Intake Total 578 ml Balance 578 ml Result Diagram: 06/20/17 1245 06/20/[address] abdomen pelvis shows distal small bowel dilatation Chest x-ray no acute findings KUB shows ileus Objective Remarks Infusions: Amiodarone Giorgio-Synephrine IV heparin Propofol TPN GENERAL: Well-developed and well-nourished male intubated heavily sedated SKIN: Warm and dry. HEENT: Extraocular muscles intact. NECK: The neck is supple. LIJ central line in place CHEST:Few coarse rhonchi Equal bilaterally. CVS: Afib rate controlled. Currently on Giorgio-Synephrine at 100 mcg/m. No murmurs ABDOMEN: Abdomen is flat, soft, diffuse mild tenderness. Incision appears healing well. Ileostomy is functioning well. NGT with 1500 biliary output EXTREMITIES: No pedal edema or cyanosis NEURO: Intubated heavily sedated. Moves all extremities, follows commands x4 A/P Assessment and Plan ASSESSMENT Septic shock C Diff small bowel enteritis Acute hypoxemic respiratory failure Acute kidney injury Ileus Lactic acidemia A. fib with RVR UTI s/p Left colectomy with colorectal anastomosis, diverting ileostomy, wedge resection of liver metastasis s/p Partial resection of the left ureter with anastomosis and placement of double-J stent Hypertension Tobacco abuse Hypokalemia, hypomagnesemia PLAN: NEURO: - Propofol for sedation and ventilator synchrony - Start Daily sedation vacation RESP: - ACV PEEP 5. FiO2 40%. - DuoNeb q6hr and PRN, vent bundle - Became tachypneic on attempted SBT CV: - Giorgio-Synephrine to keep map above 65 - Cardioverted 2 without success and amiodarone started for A. fib with RVR - IV Heparin - s/p Normal saline IV fluids 8L boluses on 06/18/17, No IVF now except TPN - Bumex 2 ng IV today in divided doses - Lactic acid currently trending down, 3.2 today - 2D Echo normal LV function GI: - NPO, Protonix gtt, TPN - Gastroenterology Dr. Saldana. EGD 06/19. Evidence of esophagitis, and erythematous gastritis in the gastric body and gastric antrum - C Diff positive from ileostomy sample- indicating C Diff enteritis. On PO vanc and IV Flagyl - D/W Dr. Tran - IV Reglan 5 mg q8hr - Prev CT abdomen pelvis and KUB shows small bowel ileus : - Monitor renal function closely. Han catheter. UO adequate - IV Bumex as above ID: - Continue IV Zosyn for possible UTI. DC if repeat cx negative. ID consulted Dr. Espinoza - PO Vancomycin and IV Flagyl for C diff enteritis - F/u blood and urine culture HEME: - Monitor CBC, CMP ENDO: - Electrolyte replacement per protocol - Aggressive K and Mag replacement PROPH: -Bilateral lower extremity SCDs. IV Heparin, IV Protonix 40 q12 LINES: - Left IJ central line placed CC time 40 min discontinuously and excluding procedures Critically ill and hemodynamically unstable currently on amiodarone for A. fib and Giorgio-Synephrine to maintain blood pressure. Discussed extensively with Dr. Tran. updated several times Shiva Segovia MD Jun 21, 2017 06:53
[2017-06-21 06:58] LABS: AUTOMATED NEUTROPHIL # 0.1 TH/MM3 (1.8-7.7); EOSINOPHIL # 1.1 TH/MM3 (0-0.4); EOSINOPHIL % 6.2 % (0.0-4.0); HEMATOCRIT 31.7 % (39.0-51.0); LYMPH % 4.4 % (9.0-44.0); LYMPHOCYTE # 0.7 TH/MM3 (1.0-4.8); MEAN CELL VOLUME 81.6 FL (80.0-100.0); MEAN CORPUSCULAR HEMOGLOBIN 27.2 PG (27.0-34.0); MEAN CORPUSCULAR HGB CONC 33.3 % (32.0-36.0); MONO % 88.9 % (0.0-8.0); NEUT % 0.5 % (16.0-70.0); PLATELET COUNT 121 TH/MM3 (150-450); RED BLOOD COUNT 3.89 MIL/MM3 (4.50-5.90); RED CELL DISTRIBUTION WIDTH 15.8 % (11.6-17.2)
[2017-06-21 07:37] LABS: ALT (GPT) 18 U/L (12-78); ANION GAP 9 MEQ/L (5-15); AST (GOT) 38 U/L (15-37); BICARBONATE 28.5 MEQ/L (21.0-32.0); BLOOD UREA NITROGEN 19 MG/DL (7-18); CHLORIDE 99 MEQ/L (98-107); GLOMERULAR FILTRATION RATE 79 ML/MIN (>89); POTASSIUM 4.1 MEQ/L (3.5-5.1); SODIUM (NA) 136 MEQ/L (136-145)
[2017-06-21 07:39] LABS: ALKALINE PHOSPHATASE 70 U/L (45-117); TOTAL BILIRUBIN ADULT 0.6 MG/DL (0.2-1.0)
[2017-06-21 07:51] LABS: HEMO FLAGS AUTO DIFF
[2017-06-21 07:52] LABS: BANDS 13 % (0-6); EOSINOPHILS 11 % (0-4); METAMYELOCYTES 4 % (0-1); MYELOCYTES 11 % (0-0); NEUTROPHIL # MANUAL DIFF 11.9 TH/MM3 (1.8-7.7); POLYS (SEG NEUTROPHILS) 34 % (16-70); PROMYELOCYTES 8 % (0-0); WBC DIFF SAMPLE 100
[2017-06-21 07:53] LABS: PLATELET ESTIMATE SMEAR LOW (NORMAL); PLATELET MORPHOLOGY NORMAL (NORMAL); SCAN/DIFF FINAL DIFF MANUAL
[2017-06-21] MEDS: CHLORHEXIDINE 0.12% (ORAL KIT) 15 ML CUP MT SCH ×2 (08:00→20:36)
[2017-06-21] MEDS: PANTOPRAZOLE SODIUM 40 MG VIAL IV PUSH SCH ×2 (08:21→17:37)
[2017-06-21] MEDS: VANCOMYCIN 500 MG VIAL (FOR ORAL USE ONLY) NG SCH ×4 (08:21→20:35)
[2017-06-21] MEDS: VASOPRESSIN INJ 40 UNITS in DEXTROSE 5% IN WATER 100ML INJ 98 ML IV SCH ×2 (08:25)
--- NOTE | 2017-06-21 09:37 | RADRPT ---
EXAM DATE/TIME: 06/21/2017 09:12 [facility] COMPARISON: ABDOMEN KUB ONLY, June 20, 2017, 10:46. INDICATIONS : Ileus MEDICAL HISTORY : Hypertension. SURGICAL HISTORY : None. ENCOUNTER: Subsequent ACUITY: 4 - 6 days PAIN SCORE: Non-responsive. LOCATION: Bilateral Abdomen FINDINGS: 2 portable frontal views of the abdomen in the supine position showed the tip of the nasogastric tube in the fundus of the stomach. Dilated gas-filled loops of small bowel are again observed. Maximum di mension is 5.5 cm. The degree of distention has progressed from the prior study. An ostomy overlies t he right lower quadrant. Double-J stent is seen on the left. No organomegaly observed. Colon is decom pressed. CONCLUSION: Worsening dilatation of the small bowel. Tip of the NG tube in the fundus of the stomach. Pierce Ospina Jr., MD on June 21, 2017 at 9:34 Board Certified Radiologist. This report was verified electronically.
[2017-06-21 10:47] LABS: APTT (PATIENT) 60.4 SEC (24.3-30.1)
[2017-06-21 11:42] LABS: HEMATOCRIT 33.5 % (39.0-51.0); MEAN CORPUSCULAR HEMOGLOBIN 26.9 PG (27.0-34.0); MEAN CORPUSCULAR HGB CONC 32.8 % (32.0-36.0); PLATELET COUNT 110 TH/MM3 (150-450); RED BLOOD COUNT 4.09 MIL/MM3 (4.50-5.90); RED CELL DISTRIBUTION WIDTH 15.5 % (11.6-17.2)
[2017-06-21 11:54] LABS: HEMO FLAGS AUTO DIFF
[2017-06-21 12:39] LABS: BANDS 23 % (0-6); BLASTS 1 % (0-0); CORRECTED NUCLEATED RBC 1 /100 WBC (0-0); EOSINOPHILS 3 % (0-4); METAMYELOCYTES 12 % (0-1); MYELOCYTES 14 % (0-0); NEUTROPHIL # MANUAL DIFF 15.2 TH/MM3 (1.8-7.7); PLATELET ESTIMATE SMEAR LOW (NORMAL); PLATELET MORPHOLOGY NORMAL (NORMAL); POLYS (SEG NEUTROPHILS) 26 % (16-70); PROMYELOCYTES 5 % (0-0); SCAN/DIFF FINAL DIFF MANUAL; WBC DIFF SAMPLE 100
--- NOTE | 2017-06-21 13:18 | HHI.IDPN ---
Note Infectious Disease Note Patient on vent. Sedated. awake and alert. Afebrile. temp of 102 last night. On Neosynephrine. C. dif positive. Blood cultures - no growth. Admitted to the hospital with weakness, abdominal pain and nausea. The patient is status post anterior resection of colon and rectal areas and anastomosis along with a diverting ileostomy and also resection of a segment of left ureter with ureteral anastomosis and double-J stent placement three weeks prior. He was recently given Ciprofloxacin for probable urinary tract infection also. PAST MEDICAL HISTORY: 1. Hypertension. 2. Left knee surgery. 3. Metastatic colon cancer status post resection and coloanal anastomosis and also resection and re-anastomosis of the left ureter with double-J stent placement. ALLERGIES: 1. CODEINE. MEDICATIONS: 1. Piperacillin / tazobactam. 2. Fluconazole. 3. Metronidazole. 4. PO Vancomycin. SOCIAL HISTORY: . Positive tobacco use. No alcohol. No illicit drug use. OBJECTIVE: Vital Signs Date Time Temp Pulse Resp B/P (MAP) Pulse Ox O2 Delivery O2 Flow Rate FiO2 06/21/17 11:41 100 40 06/21/17 10:00 106 06/21/17 08:10 40 06/21/17 08:07 100 40 06/21/17 08:00 85 06/21/17 08:00 100 40 06/21/17 08:00 98.7 85 24 108/62 (77) 100 105/51 (69) 06/21/17 07:00 100 Mechanical Ventilator 40 Nasal Cannula Simple Mask 06/21/17 06:00 92 06/21/17 04:28 100 45 06/21/17 04:00 79 06/21/17 04:00 98.9 79 22 115/59 (77) 100 93/52 (66) 06/21/17 02:00 74 06/21/17 01:19 91 108/50 06/21/17 01:15 99 45 06/21/17 00:00 72 06/21/17 00:00 99.1 72 33 106/55 (72) 100 96/48 (64) 06/20/17 23:16 80 105/54 06/20/17 22:43 75 101/52 06/20/17 22:12 100 45 06/20/17 22:00 77 06/20/17 20:00 99 45 06/20/17 20:00 100.1 96 35 111/66 (81) 99 108/54 (72) 06/20/17 20:00 99 06/20/17 20:00 99 Mechanical Ventilator 45 Nasal Cannula Simple Mask 06/20/17 20:00 96 06/20/17 18:00 93 06/20/17 16:00 97 06/20/17 16:00 102.1 97 103/58 (73) 100 110/51 (70) 06/20/17 15:51 100 45 06/20/17 14:00 96 Laboratory Tests Test 06/20/17 07:10 06/20/17 12:45 06/21/17 06:30 06/21/17 11:14 White Blood Count 8.4 TH/MM3 8.1 TH/MM3 17.0 TH/MM3 19.0 TH/MM3 Red Blood Count 3.72 MIL/MM3 3.82 MIL/MM3 3.89 MIL/MM3 4.09 MIL/MM3 Hemoglobin 10.4 GM/DL 10.5 GM/DL 10.6 GM/DL 11.0 GM/DL Hematocrit 31.0 % 31.2 % 31.7 % 33.5 % Mean Corpuscular Volume 83.5 FL 81.6 FL 81.6 FL 82.0 FL Mean Corpuscular Hemoglobin 27.9 PG 27.6 PG 27.2 PG 26.9 PG Mean Corpuscular Hemoglobin Concent 33.4 % 33.8 % 33.3 % 32.8 % Red Cell Distribution Width 15.7 % 15.7 % 15.8 % 15.5 % Platelet Count 226 TH/MM3 190 TH/MM3 121 TH/MM3 110 TH/MM3 Mean Platelet Volume 8.2 FL 8.2 FL 8.1 FL 8.1 FL Neutrophils (%) (Auto) 88.3 % 0.5 % Lymphocytes (%) (Auto) 4.7 % 4.4 % Monocytes (%) (Auto) 3.3 % 88.9 % Eosinophils (%) (Auto) 3.3 % 6.2 % Basophils (%) (Auto) 0.4 % 0.0 % Neutrophils # (Auto) 7.4 TH/MM3 0.1 TH/MM3 Lymphocytes # (Auto) 0.4 TH/MM3 0.7 TH/MM3 Monocytes # (Auto) 0.3 TH/MM3 15.1 TH/MM3 Eosinophils # (Auto) 0.3 TH/MM3 1.1 TH/MM3 Basophils # (Auto) 0.0 TH/MM3 0.0 TH/MM3 CBC Comment AUTO DIFF AUTO DIFF AUTO DIFF Differential Total Cells Counted 100 100 100 Neutrophils % (Manual) 47 % 34 % 26 % Band Neutrophils % 16 % 13 % 23 % Lymphocytes % 11 % 12 % 9 % Monocytes % 15 % 7 % 7 % Eosinophils % 3 % 11 % 3 % Neutrophils # (Manual) 6.0 TH/MM3 11.9 TH/MM3 15.2 TH/MM3 Metamyelocytes 4 % 4 % 12 % Myelocytes 4 % 11 % 14 % Differential Comment FINAL DIFF MANUAL FINAL DIFF MANUAL FINAL DIFF MANUAL Toxic Granulation 2+ Toxic Vacuolation PRESENT Promyelocytes 8 % 5 % Platelet Estimate LOW LOW Platelet Morphology Comment NORMAL NORMAL Nucleated Red Blood Cells 1 /100 WBC Blastocytes 1 % Laboratory Tests Test 06/19/17 20:55 06/20/17 01:21 06/20/17 07:10 06/20/17 08:40 Lactic Acid Level 5.4 mmol/L 4.7 mmol/L 2.9 mmol/L Phosphorus Level 2.6 MG/DL Troponin I 0.07 NG/ML Blood Urea Nitrogen 27 MG/DL Creatinine 1.00 MG/DL Random Glucose 276 MG/DL Total Protein 5.0 GM/DL Albumin 2.6 GM/DL Calcium Level 7.3 MG/DL Alkaline Phosphatase 43 U/L Aspartate Amino Transf (AST/SGOT) 26 U/L Alanine Aminotransferase (ALT/SGPT) 21 U/L Total Bilirubin 0.6 MG/DL Sodium Level 134 MEQ/L Potassium Level 2.9 MEQ/L Chloride Level 95 MEQ/L Carbon Dioxide Level 29.3 MEQ/L Anion Gap 10 MEQ/L Estimat Glomerular Filtration Rate 74 ML/MIN Protein Corrected Calcium 8.5 MG/DL Test 06/20/17 12:45 06/20/17 14:15 06/20/17 23:30 06/21/17 02:50 Lactic Acid Level 3.2 mmol/L 3.2 mmol/L mmol/L 3.2 mmol/L Magnesium Level 2.1 MG/DL 2.1 MG/DL Potassium Level 3.7 MEQ/L 3.1 MEQ/L Phosphorus Level 0.9 MG/DL Troponin I 0.11 NG/ML Thyroid Stimulating Hormone 3rd Gen 1.860 uIU/ML Test 06/21/17 06:30 Blood Urea Nitrogen 19 MG/DL Creatinine 0.95 MG/DL Random Glucose 118 MG/DL Total Protein 4.2 GM/DL Albumin 1.6 GM/DL Calcium Level 7.6 MG/DL Magnesium Level 2.0 MG/DL Alkaline Phosphatase 70 U/L Aspartate Amino Transf (AST/SGOT) 38 U/L Alanine Aminotransferase (ALT/SGPT) 18 U/L Total Bilirubin 0.6 MG/DL Sodium Level 136 MEQ/L Potassium Level 4.1 MEQ/L Chloride Level 99 MEQ/L Carbon Dioxide Level 28.5 MEQ/L Anion Gap 9 MEQ/L Estimat Glomerular Filtration Rate 79 ML/MIN Microbiology Date/Time Source Procedure Growth Status 06/20/17 17:11 Blood Peripheral Aerobic Blood Culture - Preliminary NO GROWTH IN 1 DAY Resulted 06/20/17 17:11 Blood Peripheral Anaerobic Blood Culture - Preliminary NO GROWTH IN 1 DAY Resulted 06/20/17 17:02 Blood Peripheral Aerobic Blood Culture - Preliminary NO GROWTH IN 1 DAY Resulted 06/20/17 17:02 Blood Peripheral Anaerobic Blood Culture - Preliminary NO GROWTH IN 1 DAY Resulted 06/20/17 15:50 Urine Catheterized Urine Urine Culture - Preliminary NO GROWTH IN 24 HOURS. Resulted IMAGING: Chest X-Ray 06/21/17 0600 Signed Impressions: Service Date/Time: Wednesday, June 21, 2017 04:13 - CONCLUSION: 1. Cardiomegaly and findings of vascular congestion without overt failure. 2. Left lower lobe atelectasis versus pneumonia. Small left effusion Eddie Saucedo MD Abdomen X-Ray 06/21/17 0000 Signed Impressions: Service Date/Time: Wednesday, June 21, 2017 09:12 - CONCLUSION: Worsening dilatation of the small bowel. Tip of the NG tube in the fundus of the stomach. Pierce Ospina Jr., MD Abdomen X-Ray 06/20/17 1023 Signed Impressions: Service Date/Time: Tuesday, June 20, 2017 10:46 - CONCLUSION: 1. Nasogastric tube distal tip is in the gastric cardia region likely just beyond the GE junction. However, sentinel hole is in the distal esophagus. Suggest advancement. 2. Abnormally dilated small bowel, unchanged from the earlier study and suspicious for small bowel obstruction. Luca Torres MD Chest X-Ray 06/20/17 0600 Signed Impressions: Service Date/Time: Tuesday, June 20, 2017 04:14 - CONCLUSION: 1. Cardiomegaly and findings of congestive heart failure. The findings have worsened when compared with the prior examination. Eddie Saucedo MD Chest X-Ray 06/20/17 0000 Signed Impressions: Service Date/Time: Tuesday, June 20, 2017 05:05 - CONCLUSION: 1. Endotracheal tube below the antolin. It should be retracted 3 cm Eddie Saucedo MD Chest CT 06/20/17 0000 Signed Impressions: Service Date/Time: Tuesday, June 20, 2017 07:42 - CONCLUSION: 1. Bilateral effusions and consolidative changes in both lung bases. Bao Lora MD Abdomen/Pelvis CT 06/20/17 0000 Signed Impressions: Service Date/Time: Tuesday, June 20, 2017 07:39 - CONCLUSION: 1. Dilated stomach and multiple dilated loops of small bowel, likely ileus. 2. No definite gastric volvulus. 3. Fat containing right inguinal hernia which also contains small portion of the urinary bladder and minimal fluid. 4. Left-sided nephroureteral stent in good position. 5. Bibasilar consolidation and small pleural effusions. Sarwat Suarez MD Chest X-Ray 06/19/17 0000 Signed Impressions: Service Date/Time: Monday, June 19, 2017 07:17 - CONCLUSION: Bibasilar atelectasis. Otherwise, no significant changes. Krzysztof Cruz MD Abdomen X-Ray 06/19/17 0000 Signed Impressions: Service Date/Time: Monday, June 19, 2017 07:22 - CONCLUSION: There continues to be multiple dilated loops of small bowel throughout the abdomen. The dilatation appears to be mildly increased compared to the prior examination. Finding suggest a distal small bowel obstruction versus ileus. Krzysztof Crzu MD PHYSICAL EXAMINATION: GENERAL: No acute distress. HEAD, EYES, EARS, NOSE, THROAT: No icterus. Oropharynx with dry mucosa. NECK: The neck is supple without adenopathy. No jugular venous distention. LUNGS: Slight rhonchi. HEART: Regular S1-S2 without murmurs, rubs or gallops. ABDOMEN: Diminished bowel sounds. Soft. Mild distension. Colostomy tube in the right abdomen. GENITOURINARY: Normal genitalia. EXTREMITIES: No clubbing or cyanosis or edema. The distal extremities are warm. SKIN: No rash. NEUROLOGIC: Nonfocal. IMPRESSION: 1. Bandemia in a patient with lactic acidosis. The patient is status post recent surgery for rectal cancer and recent ureteral resection and double J ureteral stent. Probable severe sepsis based on parameters including hypotension. 2. Probable ischemic bowel. 3. hypotension probably secondary to dehydration. 4. C difficile colitis. Pseudomembraneous enteritis. 5. Acute respiratory failure. RECOMMENDATIONS: 1. Continue Fluconazole. 2. Stop piperacillin / tazobactam. 3. Continue Flagyl and Vancomycin. 4. Follow the blood cultures. 5. Monitor the white blood cell count and temperature. El Espinoza MD Jun 21, 2017 13:18
--- NOTE | 2017-06-21 13:45 | HHI.PR ---
Subjective Remarks Spiked temp yesterday. Down since. WBC up today. Awake,alert,oriented this AM. Remains intubated but comfortable. C Diff enteritis. Good stool output. SB air distention,less fluid on AxR this AM. No free air on CxR or flat AxR. Objective Vital Signs Date Time Temp Pulse Resp B/P (MAP) Pulse Ox O2 Delivery O2 Flow Rate FiO2 06/21/17 11:41 100 40 06/21/17 10:00 106 06/21/17 08:10 40 06/21/17 08:07 100 40 06/21/17 08:00 85 06/21/17 08:00 100 40 06/21/17 08:00 98.7 85 24 108/62 (77) 100 105/51 (69) 06/21/17 07:00 100 Mechanical Ventilator 40 Nasal Cannula Simple Mask 06/21/17 06:00 92 06/21/17 04:28 100 45 06/21/17 04:00 79 06/21/17 04:00 98.9 79 22 115/59 (77) 100 93/52 (66) 06/21/17 02:00 74 06/21/17 01:19 91 108/50 06/21/17 01:15 99 45 06/21/17 00:00 72 06/21/17 00:00 99.1 72 33 106/55 (72) 100 96/48 (64) 06/20/17 23:16 80 105/54 06/20/17 22:43 75 101/52 06/20/17 22:12 100 45 06/20/17 22:00 77 06/20/17 20:00 99 45 06/20/17 20:00 100.1 96 35 111/66 (81) 99 108/54 (72) 06/20/17 20:00 99 06/20/17 20:00 99 Mechanical Ventilator 45 Nasal Cannula Simple Mask 06/20/17 20:00 96 06/20/17 18:00 93 06/20/17 16:00 97 06/20/17 16:00 102.1 97 103/58 (73) 100 110/51 (70) 06/20/17 15:51 100 45 06/20/17 14:00 96 I/O 06/20/17 06/20/17 06/20/17 06/21/17 06/21/17 10/17/17 07:00 15:00 23:00 07:00 15:00 23:00 Intake Total 2456.1 ml 1045 ml 1257 ml 2914 ml 250 ml Output Total 1325 ml 2775 ml 1900 ml Balance 1131.1 ml 1045 ml -1518 ml 1014 ml 250 ml IV Total 2456.1 ml 1045 ml 1207 ml 2914 ml 250 ml Tube Irrigant 50 ml Output Urine Total 960 ml 1475 ml 600 ml Stool Total 15 ml Gastric Drainage Total 350 ml 1300 ml 1300 ml Result Diagram: 06/21/17 1114 06/21/17 0630 Objective Remarks VS-S Rate controlled. Abd: Less distention, Stooling liquid stool. No blood Labs: WBC and Lactate up today, Better BUN/Cr I&Os: OK Assessment and Plan Assessment and Plan Stable at present,looks better. Alert D/W . Consider colonoscopy at bedside to look for C.Diff in colon. I will attempt in AM if stable. Luca Geiger MD Jun 21, 2017 13:45
[2017-06-21] MEDS: SODIUM ACETATE IV-CENTRAL SCH ×10 (16:31)
[2017-06-21] MEDS: SODIUM CHLORIDE IV-CENTRAL SCH ×10 (16:31)
[2017-06-21] MEDS: [UNRECOGNIZED DRUG - OTHER] IV-CENTRAL SCH ×10 (16:31)
[2017-06-21] MEDS: FAT EMULSION 20% INJ 250 ML (@10 mls/hr) IV-CENTRAL SCH (20:35)
[2017-06-21] MEDS: ACETAMINOPHEN/HYDROcodone 325 MG/5 MG TAB PO PRN (20:40)
[2017-06-21] MEDS: PHENYLEPHRINE INJ 160 MG in DEXTROSE 5% IN WATE 500 ML INJ 484 ML IV PRN ×2 (23:37)
[2017-06-22] VITALS (52 sets, daily range): BP systolic 73–142; BP diastolic 56–115; PULSE 81–144; RESP 13–49; TEMP 99.5–100.8; O2SAT 92–100
[2017-06-22] MEDS: metroNIDAZOLE 500 MG INJ 100 ML IV SCH ×3 (00:50→16:05)
[2017-06-22] MEDS: METOCLOPRAMIDE HCL 10 MG/2 ML VIAL IV PUSH SCH ×3 (00:50→17:21)
[2017-06-22] MEDS: PIPERACIL-TAZO 3.375 GM PREMIX 50 ML IV SCH ×2 (02:29→11:44)
[2017-06-22] MEDS: RESP: ALBUTEROL 2.5 MG/IPRATROPIUM 0.5 MG NEB (SCH) NEB ×4 (03:57→20:36)
[2017-06-22] MEDS: INSULIN ASPART SUPPLEMENTAL SCALE SQ SCH ×6 (04:00→20:00)
[2017-06-22] MEDS: CHLORHEXIDINE GLUCONATE 2 % 1 PACK (2 CLOTHS)(taper/protocol) TOPICAL SCH (04:00)
--- NOTE | 2017-06-22 05:25 | RADRPT ---
EXAM DATE/TIME: 06/22/2017 04:29 [facility] COMPARISON: CHEST SINGLE AP, June 21, 2017, 4:13. INDICATIONS : Shortness of breath. MEDICAL HISTORY : Hypertension. SURGICAL HISTORY : Appendectomy. ENCOUNTER: Subsequent ACUITY: 1 week PAIN SCORE: Non-responsive. LOCATION: Bilateral chest FINDINGS: The cardiac silhouette is enlarged in transverse diameter. Support lines and tubes are in satisfactor y position. There are findings of congestive heart failure with interstitial and alveolar opacity darren aterally. Moderate size bilateral pleural effusions are identified. CONCLUSION: 1. Cardiomegaly and findings of congestive heart failure. The findings have worsened when compared wi th the prior examination.8 Eddie Saucedo MD on June 22, 2017 at 5:23 Board Certified Radiologist. This report was verified electronically.
[2017-06-22 05:45] LABS: MEAN CELL VOLUME 82.5 FL (80.0-100.0); MEAN CORPUSCULAR HEMOGLOBIN 26.8 PG (27.0-34.0); MEAN CORPUSCULAR HGB CONC 32.5 % (32.0-36.0); PLATELET COUNT 79 TH/MM3 (150-450); RED CELL DISTRIBUTION WIDTH 15.8 % (11.6-17.2); WHITE BLOOD COUNT 17.6 TH/MM3 (4.0-11.0)
[2017-06-22 05:51] LABS: HEMO FLAGS AUTO DIFF
[2017-06-22 06:01] LABS: APTT (PATIENT) 112.6 SEC (24.3-30.1)
[2017-06-22 06:20] LABS: BICARBONATE 28.3 MEQ/L (21.0-32.0); CALCIUM-PROTEIN CORRECTED 8.5 MG/DL (8.5-10.1); MAGNESIUM 1.7 MG/DL (1.5-2.5); POTASSIUM 3.3 MEQ/L (3.5-5.1); TOTAL BILIRUBIN ADULT 0.6 MG/DL (0.2-1.0)
[2017-06-22] MEDS: PROPOFOL 1000 MG/100 ML INJ 100 ML IV PRN ×3 (06:54→22:58)
[2017-06-22] MEDS: AMIODARONE INJ 450 MG in D5W (EXCEL BAG) INJ 241 ML IV SCH ×4 (06:54→23:10)
[2017-06-22] MEDS: PANTOPRAZOLE SODIUM 40 MG VIAL IV PUSH SCH ×2 (06:54→18:17)
[2017-06-22 07:58] LABS: BANDS 11 % (0-6); BLASTS 1 % (0-0); CORRECTED NUCLEATED RBC 1 /100 WBC (0-0); EOSINOPHILS 7 % (0-4); METAMYELOCYTES 2 % (0-1); MYELOCYTES 15 % (0-0); NEUTROPHIL # MANUAL DIFF 9.2 TH/MM3 (1.8-7.7); PLATELET ESTIMATE SMEAR LOW (NORMAL); PLATELET MORPHOLOGY NORMAL (NORMAL); POLYS (SEG NEUTROPHILS) 22 % (16-70); PROMYELOCYTES 2 % (0-0); SCAN/DIFF FINAL DIFF MANUAL; WBC DIFF SAMPLE 100
[2017-06-22 07:59] LABS: TOXIC GRANULATION 2+ (NORMAL)
[2017-06-22] MEDS ORDERED: VANCOMYCIN INJ 500 MG in SODIUM CHLOR 0.9% 250 ML INJ 250 ML RECTAL ONE (09:15)
--- NOTE | 2017-06-22 09:41 | HHI.PR ---
Subjective Remarks Spiked temp yesterday. Down since. No free air on CxR Good diuresis with Bumex. Objective Vital Signs Date Time Temp Pulse Resp B/P (MAP) Pulse Ox O2 Delivery O2 Flow Rate FiO2 06/22/17 06:54 100 107/60 06/22/17 06:00 92 06/22/17 04:00 86 06/22/17 04:00 100.8 86 19 105/62 (76) 100 97/61 (73) 06/22/17 03:58 100 40 06/22/17 02:00 89 06/22/17 01:17 100 40 06/22/17 00:00 100.8 99 33 114/59 (77) 100 96/61 (73) 06/22/17 00:00 99 06/21/17 23:37 101 90/58 06/21/17 22:00 107 06/21/17 21:40 28 06/21/17 20:40 97 40 06/21/17 20:00 100.6 121 28 126/66 (86) 94 94/66 (75) 06/21/17 20:00 121 06/21/17 19:00 94 Mechanical Ventilator 40 Nasal Cannula Simple Mask 06/21/17 18:00 110 06/21/17 16:11 98 40 06/21/17 16:00 99.9 103 25 128/81 (97) 100 106/61 (76) 06/21/17 16:00 103 06/21/17 15:01 91 109/59 06/21/17 14:00 88 06/21/17 12:00 91 06/21/17 12:00 100.3 91 16 129/73 (91) 100 110/69 (83) 06/21/17 11:41 100 40 06/21/17 10:00 106 I/O 06/21/17 06/21/17 06/21/17 06/22/17 06/22/17 06/22/17 06:59 14:59 22:59 06:59 14:59 22:59 Intake Total 2914 ml 250 ml 1061 ml 2040 ml 50 ml Output Total 1900 ml 2800 ml 1100 ml Balance 1014 ml 250 ml -1739 ml 940 ml 50 ml IV Total 2914 ml 250 ml 1011 ml 2040 ml Tube Irrigant 50 ml Other 50 ml Output Urine Total 600 ml 2400 ml 600 ml Stool Total 400 ml Gastric Drainage Total 1300 ml 400 ml 100 ml Result Diagram: 06/22/1742406/22/17424 Objective Remarks VS-S Rate controlled. Abd: Less distention, Stooling liquid stool. No blood Labs: WBC remains up with left shift I&Os: OK Assessment and Plan Assessment and Plan Stable at present. Colonoscopy normal 500mg/250 cc of Vancomycin instilled. Ileoscopy to 40 cm with diffuse Pseudomembranous Ileitis D/W . Continue to diurese. No C. Diff in colon. Continue oral Vanco and Flagyl. Start Marianaeg Luca Geiger MD Jun 22, 2017 09:41
--- NOTE | 2017-06-22 10:41 | MR ---
cc: JASPER ZAPIEN,ASHLEY CANTU,YANG Hernandez MD DATE: 06/22/2017 PREOPERATIVE DIAGNOSIS Clostridium difficile enteritis. POSTOPERATIVE DIAGNOSIS Normal colonoscopy with ileal pseudomembranous colitis. PROCEDURE Total colonoscopy and ileoscopy. ANESTHESIA Monitored anesthesia care. SURGEON Dr. Geiger OPERATIVE FINDINGS This patient has had a normal postop course up until about 5 days ago. The patient underwent preoperative radiation therapy, chemotherapy for a large fixed rectal cancer about 12 weeks ago. Postoperatively the carcinoma shrunk some but he had a bulky fixed cancer in his pelvis and a small hepatic metastasis right above the gallbladder and the liver about a centimeter in diameter that was removed with wedge resection. The patient also had invasion into his left pelvic sidewall and his ureter and a segment of the ureter was removed with the specimen. The ureter was re-anastomosed and a double-J stent was placed in the ureter. Postoperatively I saw him in the office 10 days postop and he was doing quite well on a regular diet, ileostomy functioning well and was doing fine until I saw him about 5 days ago in the office 3 weeks postop and he said he was feeling weak, had some abdominal bloating and just did not feel well. He looked a little bit dehydrated and he was brought into the hospital. His creatinine was 1.2, his BUN was elevated to 40 and he was given intravenous fluids. Through the night he developed acute gastric dilatation and ended up having an NG tube placed the next morning with 3000 ccs of gastric contents. He then deteriorated and was transferred to the Intensive Care Unit and nothing has cultured positive except for Clostridium difficile pseudomembranous ileitis. He has had upper GI endoscopy with a large amount of fluid present in his stomach. He has had ileoscopy showing ileitis and today I am doing a colonoscopy since his colon is fully diverted and we are concerned about C. Difficile in the colon. At colonoscopy the colonoscopy was normal to the cecum. I could not enter the terminal ileum from the cecum. There was no evidence of pseudomembranes throughout the colon, no evidence of colitis and even his diversion colitis was minimal. The anastomosis in the very lower rectum was normal, both palpably and visually. OPERATIVE TECHNIQUE The patient was in the intensive care unit in supine position and ventilated and was on propofol drip. Anesthesia was standing by and the colonoscope was introduced through the anal canal to the rectum, sigmoid colon, descending colon, transverse colon, ascending colon to the cecum. The ileocecal valve was seen as was the base of the appendix. The terminal ileum was attempted to be intubated but I could not intubate it. The scope was sequentially withdrawn, circumferentially, look at the mucosa, getting good look at the mucosa, no evidence of pseudomembranes at all. There was small amount of liquid stool over in the ascending colon but his colon as mentioned is fully diverted and this was left over from surgery 3 weeks ago. The stool was aspirated and the patient had 250 ccs of 500 mg of vancomycin instilled throughout the colon while removing the scope. This was done empirically anticipating that there would be pseudomembranous colitis present, however, there was not as mentioned. Scope was eventually withdrawn. The patient tolerated the procedure well and the procedure was terminated and the patient was in stable condition. MD ALAN Khan/ASHVIN /9:32 AM /10:12 AM
[2017-06-22] MEDS: VANCOMYCIN 500 MG VIAL (FOR ORAL USE ONLY) NG SCH ×3 (11:46→21:03)
[2017-06-22] MEDS: ALVIMOPAN 12 MG CAPSULE NG SCH ×2 (12:00→21:03)
--- NOTE | 2017-06-22 13:10 | HHI.CCPN ---
Subjective Remarks/Hospital Course The patient is a 67-year-old male with past medical history of hypertension, metastatic colon cancer, tobacco abuse, who, about 3 weeks ago underwent low anterior resection with low colorectal anastomosis, diverting ileostomy, and resection of a segment of the left ureter with ureteral anastomosis and double- J stent placement. He presented yesterday with 5 day history of abdominal discomfort and increasing weakness. No history of high output from ileostomy. He was admitted to the colorectal surgery for dehydration and probable UTI. He was placed on ciprofloxacin and IV hydration. According to Dr. Geiger's note it was difficult dissection/resection colon mass because of the pelvic sidewall adherence and the adherence to the left ureter. A portion of ureter was resected due to possibility of tumor infiltration, and Dr. Augustine Pelayo re- anastomosed the ureter and placed left-sided double-J stent. Also 1 cm hepatic metastasis in his liver that was excised. Hospitalist consultation was requested for medical management and evaluation of tachycardia today. He was seen by Dr. Jay and was placed on infusion of Cardizem for heart rate 140s. Patient became hypotensive with systolic blood pressure early 90s. Lab work showed WBC 14.5 with 44% bands, creat increase from 1.2 to 1.4 and severely increased lactate at 8 from admission lactate of 2.6. CT of the abdomen pelvis done yesterday showed probable small bowel ileus. I evaluated the patient in the ICU. He is tachycardic in 140s, hypotensive and systolic blood pressure in mid 80s. Clinically appears very dehydrated, an NG tube was placed with approximately 3 L of some coffee-ground output. ABG shows a base excess of -10 and bicarbonate 12. I have ordered 4 liter normal saline boluses start 1 amp of bicarbonate, discontinued the LR infusion, and started bicarb gtt. Discontinue ciprofloxacin, started Zosyn every 6 hours, vancomycin 1 g 1. His elevated lactic acid and bandemia most likely secondary to severe sepsis, ileus, and severe dehydration. Serial lactate is ordered SUBJ 06/19: Lactic acid remains elevated at 6.6 despite getting 9 L of crystalloid boluses in last 24 hours. Tachycardia has improved heart rate in 110s. Remains on vasopressin at 0.04 units/min. Urine output almost 1200 mL overnight, OGT initial output was almost 3 L when placed yesterday a.m. Overnight had 550 mL of greenish brown fluid output. EGD pending today rule out gastric ischemia per Dr. Romero. Apparently Flex sig was negative post op in Dr. Geiger's office 06/20: Developed A. fib with RVR. Heart rate 200. Hemodynamically unstable, synchronized cardioversion attempted by Dr. Morales 100 200 J. Given 3 g mag sulfate and 80 mEq KCl 1, 0.5 digoxin 1 and started on amiodarone and Giorgio- Synephrine. Intubated due to hemodynamic instability. Currently remains sedated. Currently on Giorgio-Synephrine 80 mcg/m, and amiodarone. CT chest abdomen pelvis again confirms gastric and small bowel distention/ileus. UO 1800 ml in 24 hours 06/21: Remains critically ill, intubated sedated, on 100 mcg/min neosynpehrine. HR better controlled. NG output 1500, UO >1.4L. Am labs pending. Ileostomy sample positive for C Diff on PO vanc IV Flagyl. 06/22: Remains intubated sedated. Urine output 3000 mL with Bumex. NGT [address] Geiger did colonoscopy which was normal. Ileoscopy showed pseudomembranous colitis. Currently on 200 mcg/min of neosynephrine. Afib with RVR HR in 140's Objective Vital Signs Date Time Temp Pulse Resp B/P (MAP) Pulse Ox O2 Delivery O2 Flow Rate FiO2 06/22/17 12:16 100 40 06/22/17 06:54 100 107/60 06/22/17 04:00 100.8 19 06/21/17 19:00 Mechanical Ventilator Nasal Cannula Simple Mask 06/19/17 20:00 4.00 Intake and Output 06/22/17 06/22/17 06/22/17 07:59 15:59 23:59 Intake Total 1527 ml 50 ml Output Total 1100 ml Balance 427 ml 50 ml Result Diagram: 06/22/17 0425 06/22/17 0425 Other Results Microbiology Date/Time Source Procedure Growth Status 06/20/17 15:50 Urine Catheterized Urine Urine Culture - Final NO GROWTH IN [address] abdomen pelvis shows distal small bowel dilatation Chest x-ray no acute findings KUB shows ileus Objective Remarks Infusions: Amiodarone Giorgio-Synephrine IV heparin-hold Propofol TPN GENERAL: Well-developed and well-nourished male intubated sedated SKIN: Warm and dry. HEENT: Extraocular muscles intact. NECK: The neck is supple. LIJ central line in place CHEST:Few coarse rhonchi Equal bilaterally. CVS: Afib rate controlled. On Giorgio-Synephrine MAP>65. No murmurs ABDOMEN: Abdomen is flat, soft, diffuse mild tenderness. Incision appears healing well. Ileostomy is functioning well. NGT with 500 biliary output last 24 hours EXTREMITIES: No pedal edema or cyanosis NEURO: Intubated heavily sedated. Moves all extremities, follows commands x4 A/P Assessment and Plan ASSESSMENT Septic shock C Diff small bowel enteritis Acute hypoxemic respiratory failure Acute kidney injury Ileus Lactic acidemia A. fib with RVR UTI s/p Left colectomy with colorectal anastomosis, diverting ileostomy, wedge resection of liver metastasis s/p Partial resection of the left ureter with anastomosis and placement of double-J stent Hypertension Tobacco abuse Hypokalemia, hypomagnesemia PLAN: NEURO: - Propofol for sedation and ventilator synchrony - Start Daily sedation vacation RESP: - ACV PEEP 5. FiO2 40%. - DuoNeb q6hr and PRN, vent bundle - Daily SBT but failed yesterday CV: - Giorgio-Synephrine to keep map above 65, currently at 200 mcg/min - Cardioverted 2 without success and amiodarone started for A. fib with RVR - Currently in Afib with RVR. Give metoprolol 2.5 mg IVP. If not rate controlled will attempt DCCV - IV Heparin - s/p Normal saline IV fluids 8L boluses on 06/18/17, No IVF now except TPN - Bumex 1mg IV today and scheduled q12 - Lactic acid currently trending down, 3.0 yesterday evening - 2D Echo normal LV function GI: - NPO, Protonix gtt, TPN - Gastroenterology Dr. Saldana. EGD 06/19. Evidence of esophagitis, and erythematous gastritis in the gastric body and gastric antrum - C Diff positive from ileostomy sample- indicating C Diff enteritis. On PO vanc and IV Flagyl - D/W Dr. Tran 06/22. Colonoscopy normal. Ileoscopy severe pseudomembranous ileitis - IV Reglan 5 mg q8hr - Prev CT abdomen pelvis and KUB shows small bowel ileus : - Monitor renal function closely. Han catheter. UO adequate - IV Bumex as above ID: - DC IV Zosyn, repeat urine cx negative. ID Dr. Espinoza - PO Vancomycin and IV Flagyl for C diff enteritis - F/u blood and urine culture HEME: - Monitor CBC, CMP ENDO: - Electrolyte replacement per protocol - Aggressive K and Mag replacement PROPH: -Bilateral lower extremity SCDs. IV Heparin, IV Protonix 40 q12 LINES: - Left IJ central line placed CC time 32 min discontinuously and excluding procedures Critically ill and hemodynamically unstable currently on amiodarone for A. fib and Giorgio-Synephrine to maintain blood pressure. Discussed extensively with Dr. Tran. updated Shiva Segovia MD Jun 22, 2017 13:10
--- NOTE | 2017-06-22 13:21 | HHI.IDPN ---
Note Infectious Disease Note Patient on vent. Sedated. awake and alert. Low grade fever. On Neosynephrine. C. dif positive. Blood cultures - no growth. Admitted to the hospital with weakness, abdominal pain and nausea. The patient is status post anterior resection of colon and rectal areas and anastomosis along with a diverting ileostomy and also resection of a segment of left ureter with ureteral anastomosis and double-J stent placement three weeks prior. He was recently given Ciprofloxacin for probable urinary tract infection also. PAST MEDICAL HISTORY: 1. Hypertension. 2. Left knee surgery. 3. Metastatic colon cancer status post resection and coloanal anastomosis and also resection and re-anastomosis of the left ureter with double-J stent placement. ALLERGIES: 1. CODEINE. MEDICATIONS: 1. PO Vancomycin. 2. Fluconazole. 3. Metronidazole. SOCIAL HISTORY: . Positive tobacco use. No alcohol. No illicit drug use. OBJECTIVE: Vital Signs Date Time Temp Pulse Resp B/P (MAP) Pulse Ox O2 Delivery O2 Flow Rate FiO2 06/22/17 12:16 100 40 06/22/17 06:54 100 107/60 06/22/17 06:00 92 06/22/17 04:00 86 06/22/17 04:00 100.8 86 19 105/62 (76) 100 97/61 (73) 06/22/17 03:58 100 40 06/22/17 02:00 89 06/22/17 01:17 100 40 06/22/17 00:00 100.8 99 33 114/59 (77) 100 96/61 (73) 06/22/17 00:00 99 06/21/17 23:37 101 90/58 06/21/17 22:00 107 06/21/17 21:40 28 06/21/17 20:40 97 40 06/21/17 20:00 100.6 121 28 126/66 (86) 94 94/66 (75) 06/21/17 20:00 121 06/21/17 19:00 94 Mechanical Ventilator 40 Nasal Cannula Simple Mask 06/21/17 18:00 110 06/21/17 16:11 98 40 06/21/17 16:00 99.9 103 25 128/81 (97) 100 106/61 (76) 06/21/17 16:00 103 06/21/17 15:01 91 109/59 06/21/17 14:00 88 Laboratory Tests Test 06/21/17 06:30 06/21/17 11:14 06/22/17 04:25 White Blood Count 17.0 TH/MM3 19.0 TH/MM3 17.6 TH/MM3 Red Blood Count 3.89 MIL/MM3 4.09 MIL/MM3 4.00 MIL/MM3 Hemoglobin 10.6 GM/DL 11.0 GM/DL 10.7 GM/DL Hematocrit 31.7 % 33.5 % 33.0 % Mean Corpuscular Volume 81.6 FL 82.0 FL 82.5 FL Mean Corpuscular Hemoglobin 27.2 PG 26.9 PG 26.8 PG Mean Corpuscular Hemoglobin Concent 33.3 % 32.8 % 32.5 % Red Cell Distribution Width 15.8 % 15.5 % 15.8 % Platelet Count 121 TH/MM3 110 TH/MM3 79 TH/MM3 Mean Platelet Volume 8.1 FL 8.1 FL 8.0 FL Neutrophils (%) (Auto) 0.5 % Lymphocytes (%) (Auto) 4.4 % Monocytes (%) (Auto) 88.9 % Eosinophils (%) (Auto) 6.2 % Basophils (%) (Auto) 0.0 % Neutrophils # (Auto) 0.1 TH/MM3 Lymphocytes # (Auto) 0.7 TH/MM3 Monocytes # (Auto) 15.1 TH/MM3 Eosinophils # (Auto) 1.1 TH/MM3 Basophils # (Auto) 0.0 TH/MM3 CBC Comment AUTO DIFF AUTO DIFF AUTO DIFF Differential Total Cells Counted 100 100 100 Neutrophils % (Manual) 34 % 26 % 22 % Band Neutrophils % 13 % 23 % 11 % Lymphocytes % 12 % 9 % 9 % Monocytes % 7 % 7 % 31 % Eosinophils % 11 % 3 % 7 % Neutrophils # (Manual) 11.9 TH/MM3 15.2 TH/MM3 9.2 TH/MM3 Metamyelocytes 4 % 12 % 2 % Myelocytes 11 % 14 % 15 % Promyelocytes 8 % 5 % 2 % Differential Comment FINAL DIFF MANUAL FINAL DIFF MANUAL FINAL DIFF MANUAL Platelet Estimate LOW LOW LOW Platelet Morphology Comment NORMAL NORMAL NORMAL Nucleated Red Blood Cells 1 /100 WBC 1 /100 WBC Blastocytes 1 % 1 % Toxic Granulation 2+ Laboratory Tests Test 06/20/17 14:15 06/20/17 23:30 06/21/17 02:50 06/21/17 06:30 Potassium Level 3.7 MEQ/L 3.1 MEQ/L 4.1 MEQ/L Lactic Acid Level 3.2 mmol/L mmol/L 3.2 mmol/L Phosphorus Level 0.9 MG/DL Magnesium Level 2.1 MG/DL 2.0 MG/DL Troponin I 0.11 NG/ML Thyroid Stimulating Hormone 3rd Gen 1.860 uIU/ML Blood Urea Nitrogen 19 MG/DL Creatinine 0.95 MG/DL Random Glucose 118 MG/DL Total Protein 4.2 GM/DL Albumin 1.6 GM/DL Calcium Level 7.6 MG/DL Alkaline Phosphatase 70 U/L Aspartate Amino Transf (AST/SGOT) 38 U/L Alanine Aminotransferase (ALT/SGPT) 18 U/L Total Bilirubin 0.6 MG/DL Sodium Level 136 MEQ/L Chloride Level 99 MEQ/L Carbon Dioxide Level 28.5 MEQ/L Anion Gap 9 MEQ/L Estimat Glomerular Filtration Rate 79 ML/MIN Test 06/21/17 21:39 06/22/17 04:25 Lactic Acid Level 3.0 mmol/L Blood Urea Nitrogen 21 MG/DL Creatinine 1.10 MG/DL Random Glucose 104 MG/DL Total Protein 4.4 GM/DL Albumin 1.3 GM/DL Calcium Level 7.0 MG/DL Magnesium Level 1.7 MG/DL Alkaline Phosphatase 91 U/L Aspartate Amino Transf (AST/SGOT) 42 U/L Alanine Aminotransferase (ALT/SGPT) 19 U/L Total Bilirubin 0.6 MG/DL Sodium Level 134 MEQ/L Potassium Level 3.3 MEQ/L Chloride Level 97 MEQ/L Carbon Dioxide Level 28.3 MEQ/L Anion Gap 9 MEQ/L Estimat Glomerular Filtration Rate 67 ML/MIN Protein Corrected Calcium 8.5 MG/DL Microbiology Date/Time Source Procedure Growth Status 06/20/17 17:11 Blood Peripheral Aerobic Blood Culture - Preliminary NO GROWTH IN 2 DAYS Resulted 06/20/17 17:11 Blood Peripheral Anaerobic Blood Culture - Preliminary NO GROWTH IN 2 DAYS Resulted 06/20/17 17:02 Blood Peripheral Aerobic Blood Culture - Preliminary NO GROWTH IN 2 DAYS Resulted 06/20/17 17:02 Blood Peripheral Anaerobic Blood Culture - Preliminary NO GROWTH IN 2 DAYS Resulted 06/20/17 15:50 Urine Catheterized Urine Urine Culture - Final NO GROWTH IN 48 HOURS. Complete IMAGING: Chest X-Ray 06/22/17 0600 Signed Impressions: Service Date/Time: Thursday, June 22, 2017 04:29 - CONCLUSION: 1. Cardiomegaly and findings of congestive heart failure. The findings have worsened when compared with the prior examination.8 Eddie Saucedo MD Chest X-Ray 06/21/17 0600 Signed Impressions: Service Date/Time: Wednesday, June 21, 2017 04:13 - CONCLUSION: 1. Cardiomegaly and findings of vascular congestion without overt failure. 2. Left lower lobe atelectasis versus pneumonia. Small left effusion Eddie Saucedo MD Abdomen X-Ray 06/21/17 0000 Signed Impressions: Service Date/Time: Wednesday, June 21, 2017 09:12 - CONCLUSION: Worsening dilatation of the small bowel. Tip of the NG tube in the fundus of the stomach. Pierce Ospina Jr., MD Abdomen X-Ray 06/20/17 1023 Signed Impressions: Service Date/Time: Tuesday, June 20, 2017 10:46 - CONCLUSION: 1. Nasogastric tube distal tip is in the gastric cardia region likely just beyond the GE junction. However, sentinel hole is in the distal esophagus. Suggest advancement. 2. Abnormally dilated small bowel, unchanged from the earlier study and suspicious for small bowel obstruction. Luca Torres MD Chest X-Ray 06/20/17 0600 Signed Impressions: Service Date/Time: Tuesday, June 20, 2017 04:14 - CONCLUSION: 1. Cardiomegaly and findings of congestive heart failure. The findings have worsened when compared with the prior examination. Eddie Saucedo MD Chest X-Ray 06/20/17 0000 Signed Impressions: Service Date/Time: Tuesday, June 20, 2017 05:05 - CONCLUSION: 1. Endotracheal tube below the antolin. It should be retracted 3 cm Eddie Saucedo MD Chest CT 06/20/17 0000 Signed Impressions: Service Date/Time: Tuesday, June 20, 2017 07:42 - CONCLUSION: 1. Bilateral effusions and consolidative changes in both lung bases. Bao Lora MD Abdomen/Pelvis CT 06/20/17 0000 Signed Impressions: Service Date/Time: Tuesday, June 20, 2017 07:39 - CONCLUSION: 1. Dilated stomach and multiple dilated loops of small bowel, likely ileus. 2. No definite gastric volvulus. 3. Fat containing right inguinal hernia which also contains small portion of the urinary bladder and minimal fluid. 4. Left-sided nephroureteral stent in good position. 5. Bibasilar consolidation and small pleural effusions. Sarwat Suarez MD PHYSICAL EXAMINATION: GENERAL: No acute distress. HEENT: No icterus. Oropharynx mucosa moist. NECK: The neck is supple without adenopathy. No jugular venous distention. LUNGS: Slight rhonchi. HEART: Regular S1-S2 without murmurs, rubs or gallops. ABDOMEN: Diminished bowel sounds. Soft. Mild distension. Colostomy at the right abdomen. EXTREMITIES: No clubbing or cyanosis or edema. The distal extremities are warm. SKIN: No rash. NEUROLOGIC: Nonfocal. IMPRESSION: 1. Bandemia in a patient with lactic acidosis. The patient is status post recent surgery for rectal cancer and recent ureteral resection and double J ureteral stent. Probable severe sepsis based on parameters including hypotension. 2. Probable ischemic bowel. 3. hypotension probably secondary to dehydration. 4. C difficile colitis. Pseudomembraneous enteritis. 5. Acute respiratory failure. RECOMMENDATIONS: 1. Continue Fluconazole. 2. Continue piperacillin / tazobactam. 3. Continue Flagyl and Vancomycin. 4. Follow the blood cultures. 5. Monitor the white blood cell count and temperature. El Espnioza MD Jun 22, 2017 13:21
[2017-06-22] MEDS ORDERED: ALBUMIN 25% INJ 100 ML IV ONE (14:05)
[2017-06-22] MEDS: CHLORHEXIDINE 0.12% (ORAL KIT) 15 ML CUP MT SCH ×2 (14:18→21:04)
[2017-06-22] MEDS ORDERED: MAGNESIUM SULFATE 1 GM PREMIX 100 ML IV ONE (14:30)
[2017-06-22] MEDS ORDERED: BUMETANIDE INJ 1 MG/4 ML VIAL IV PUSH ONE (14:30)
[2017-06-22] MEDS ORDERED: METOPROLOL TARTRATE 5 MG/5 ML VIAL IV PUSH ONE (14:30)
[2017-06-22] MEDS: ALBUMIN 25% INJ 50 ML IV SCH (15:00)
[2017-06-22] MEDS: PHENYLEPHRINE INJ 160 MG in DEXTROSE 5% IN WATE 500 ML INJ 484 ML IV PRN ×2 (17:21)
[2017-06-22] MEDS: BUMETANIDE INJ 1 MG/4 ML VIAL IV PUSH SCH (17:22)
[2017-06-22] MEDS: POTASSIUM CHLOR 20 MEQ PREMIX 100 ML IV PRN (17:22)
[2017-06-22 18:24] LABS: APTT (PATIENT) 50.2 SEC (24.3-30.1)
[2017-06-22] MEDS: [UNRECOGNIZED DRUG - OTHER] IV-CENTRAL SCH ×10 (20:55)
[2017-06-22] MEDS: SODIUM CHLORIDE IV-CENTRAL SCH ×10 (20:55)
[2017-06-22] MEDS: SODIUM ACETATE IV-CENTRAL SCH ×10 (20:55)
[2017-06-22] MEDS: FAT EMULSION 20% INJ 250 ML (@10 mls/hr) IV-CENTRAL SCH (20:55)
[2017-06-22] MEDS ORDERED: VANCOMYCIN OTHER SCH (21:00)
[2017-06-22] MEDS ORDERED: IRR OTHER SCH (21:00)
[2017-06-22] MEDS ORDERED: SODIUM CHLORIDE 0.9% OTHER SCH (21:00)
[2017-06-22] MEDS: ACETAMINOPHEN 650 MG/20.3 ML UDC PO PRN (21:03)
[2017-06-23] VITALS (25 sets, daily range): BP systolic 75–153; BP diastolic 54–89; PULSE 109–159; RESP 19–65; TEMP 98.9–101.2; O2SAT 94–100
[2017-06-23] MEDS: metroNIDAZOLE 500 MG INJ 100 ML IV SCH ×3 (00:57→15:52)
[2017-06-23] MEDS: METOCLOPRAMIDE HCL 10 MG/2 ML VIAL IV PUSH SCH ×3 (00:58→15:51)
[2017-06-23] MEDS: INSULIN ASPART SUPPLEMENTAL SCALE SQ SCH ×6 (03:28→20:00)
[2017-06-23] MEDS: ALBUMIN 25% INJ 50 ML IV SCH ×2 (03:31→15:07)
[2017-06-23] MEDS: ACETAMINOPHEN 650 MG/20.3 ML UDC PO PRN (03:57)
[2017-06-23] MEDS: RESP: ALBUTEROL 2.5 MG/IPRATROPIUM 0.5 MG NEB (SCH) NEB ×4 (04:03→21:07)
[2017-06-23] MEDS: PANTOPRAZOLE SODIUM 40 MG VIAL IV PUSH SCH ×2 (05:23→17:38)
[2017-06-23] MEDS: PROPOFOL 1000 MG/100 ML INJ 100 ML IV PRN ×2 (06:05→12:57)
--- NOTE | 2017-06-23 07:25 | HHI.PR ---
Subjective Remarks Pt still critical. BP stable on Giorgio. Platelets decreased yesterday. Remains sedated. Urine increased diuresis. More liquid stool. Vanco irrigations of Ileum started yesterday. Decreased N/G output. Objective Vital Signs Date Time Temp Pulse Resp B/P (MAP) Pulse Ox O2 Delivery O2 Flow Rate FiO2 06/23/17 06:00 109 06/23/17 04:05 100 40 06/23/17 04:00 120 06/23/17 04:00 100.1 120 19 122/77 (92) 98 91/82 (85) 06/23/17 02:00 124 06/23/17 00:54 101.2 06/23/17 00:45 99 45 06/23/17 00:00 133 06/22/17 23:11 116 80/73 06/22/17 23:10 139 72/60 06/22/17 22:00 132 06/22/17 20:40 100 45 06/22/17 20:00 100.1 130 99/70 (80) 100 06/22/17 20:00 132 06/22/17 18:00 129 06/22/17 17:21 124 78/64 06/22/17 16:30 122 44 107/73 (84) 99 82/65 (71) 06/22/17 16:26 99 40 06/22/17 16:15 116 45 108/68 (81) 100 79/65 (70) 06/22/17 16:00 99.7 136 46 96/68 (77) 100 77/67 (70) 06/22/17 16:00 136 06/22/17 15:45 138 47 86/65 (72) 99 79/64 (69) 06/22/17 15:30 139 48 87/58 (68) 100 76/61 (66) 06/22/17 15:15 132 47 102/57 (72) 100 78/62 (67) 06/22/17 15:00 131 49 120/66 (84) 100 82/65 (71) 06/22/17 14:45 134 29 121/75 (90) 100 89/71 (77) 06/22/17 14:30 135 46 95/63 (74) 100 80/65 (70) 06/22/17 14:15 140 33 105/59 (74) 98 74/63 (67) 06/22/17 14:00 139 40 83/56 (65) 100 73/63 (66) 06/22/17 14:00 139 06/22/17 13:55 140 43 109/61 (77) 99 81/65 (70) 06/22/17 13:31 144 47 110/63 (79) 99 74/62 (66) 06/22/17 13:15 141 42 83/63 (70) 100 77/63 (68) 06/22/17 13:00 136 44 93/69 (77) 100 83/65 (71) 06/22/17 12:45 139 41 97/75 (82) 100 89/68 (75) 06/22/17 12:30 133 42 84/62 (69) 99 87/66 (73) 06/22/17 12:16 100 40 06/22/17 12:15 133 41 93/68 (76) 100 81/64 (70) 06/22/17 12:06 130 28 93/68 (76) 100 85/67 (73) 06/22/17 12:00 128 06/22/17 12:00 99.5 128 39 100/67 (78) 100 82/61 (68) 06/22/17 11:30 130 26 119/80 (93) 98 103/97 (99) 06/22/17 11:15 115 19 125/66 (85) 100 106/97 (100) 06/22/17 11:00 101 22 142/88 (106) 100 107/98 (101) 06/22/17 10:45 89 14 137/61 (86) 100 103/97 (99) 06/22/17 10:30 89 13 121/64 (83) 100 98/98 (98) 06/22/17 10:00 116 22 128/62 (84) 100 100/95 (97) 06/22/17 10:00 116 06/22/17 09:45 87 21 139/71 (93) 100 98/93 (95) 06/22/17 09:30 89 23 129/68 (88) 100 97/92 (94) 06/22/17 09:22 84 31 127/67 (87) 100 97/93 (94) 06/22/17 09:19 83 21 108/71 (83) 100 94/89 (91) 06/22/17 09:15 81 24 126/66 (86) 93 109/100 (103) 06/22/17 09:00 91 23 104/60 (75) 100 125/114 (118) 06/22/17 08:45 89 24 115/70 (85) 99 123/115 (118) 06/22/17 08:30 88 30 117/60 (79) 98 125/115 (118) 06/22/17 08:15 89 21 114/68 (83) 100 119/111 (114) 06/22/17 08:00 89 06/22/17 08:00 99.6 89 19 109/70 (83) 100 118/111 (113) 06/22/17 07:45 92 32 103/62 (76) 100 115/110 (112) 06/22/17 07:30 89 27 125/62 (83) 100 115/109 (111) I/O 06/22/17 06/22/17 06/22/17 06/23/17 06/23/17 06/23/17 07:00 15:00 23:00 07:00 15:00 23:00 Intake Total 2040 ml 500 ml 213 ml 1502 ml Output Total 1100 ml 1625 ml 2260 ml Balance 940 ml 500 ml -1412 ml -758 ml IV Total 2040 ml 450 ml 153 ml 1502 ml Tube Irrigant 60 ml Other 50 ml Output Urine Total 600 ml 1000 ml 1640 ml Stool Total 400 ml 525 ml 620 ml Gastric Drainage Total 100 ml 100 ml Result Diagram: 06/22/1742406/22/17424 Objective Remarks VS-S Rate controlled. Gen: Pt quite cold,room temp is cold. Abd: Softly distended. Wound healed. Ileostomy with clear greenish outputs. Ext: legs elevated. Arms edematous Labs: Lactic acid still in 3.5 range I&Os: Better U/O,better stool output, decreased N/G Assessment and Plan Assessment and Plan Stable at present. Colonoscopy normal 500mg/250 cc of Vancomycin instilled. Ileoscopy to 40 cm with diffuse Pseudomembranous Ileitis yesterday D/W . Continue to diurese. No C. Diff in colon. Continue oral Vanco and Flagyl. Started Entereg. Started Vancomycin 250mg/100cc irrigated TID thru Ileostomy. Recommend warming room some and remove restraints while Sedated. Await labs and platelet counts. Luca Geiger MD Jun 23, 2017 07:25
[2017-06-23] MEDS: PHENYLEPHRINE INJ 160 MG in DEXTROSE 5% IN WATE 500 ML INJ 484 ML IV PRN ×2 (07:49)
[2017-06-23] MEDS: AMIODARONE INJ 450 MG in D5W (EXCEL BAG) INJ 241 ML IV SCH ×2 (08:39→21:49)
[2017-06-23 08:40] LABS: HEMATOCRIT 38.4 % (39.0-51.0); MEAN CELL VOLUME 84.1 FL (80.0-100.0); MEAN CORPUSCULAR HEMOGLOBIN 27.6 PG (27.0-34.0); MEAN CORPUSCULAR HGB CONC 32.9 % (32.0-36.0); PLATELET COUNT 67 TH/MM3 (150-450); RED BLOOD COUNT 4.56 MIL/MM3 (4.50-5.90); WHITE BLOOD COUNT 16.4 TH/MM3 (4.0-11.0)
[2017-06-23] MEDS: CHLORHEXIDINE 0.12% (ORAL KIT) 15 ML CUP MT SCH ×2 (08:40→20:00)
[2017-06-23] MEDS: VANCOMYCIN 500 MG VIAL (FOR ORAL USE ONLY) NG SCH ×4 (08:41→20:21)
[2017-06-23] MEDS: ALVIMOPAN 12 MG CAPSULE NG SCH ×2 (08:41→20:22)
[2017-06-23] MEDS: BUMETANIDE INJ 1 MG/4 ML VIAL IV PUSH SCH (08:41)
[2017-06-23 09:14] LABS: REVIEW FLAG FINAL
--- NOTE | 2017-06-23 09:49 | RADRPT ---
EXAM DATE/TIME: 06/23/2017 08:08 [facility] COMPARISON: ABDOMEN KUB ONLY, June 21, 2017, 9:12. INDICATIONS : Confirm nasogastric tube placement. MEDICAL HISTORY : None. SURGICAL HISTORY : Appendectomy. ENCOUNTER: Initial ACUITY: 1 week PAIN SCORE: Non-responsive. LOCATION: Abdomen. FINDINGS: The NG tube is in the stomach and in good position. There continues to be some dilatation of multiple small bowel loops in the midabdomen. However, the dilatation appears to be improved compared to the prior examination. There is a double-J left ureteral stent in place. There is some atelectasis in the lung bases. CONCLUSION: Improving bowel gas pattern compared to the prior study. The NG tube is in good position in the stoma ch. Krzysztof Cruz MD on June 23, 2017 at 9:46 Board Certified Radiologist. This report was verified electronically.
--- NOTE | 2017-06-23 09:49 | RADRPT ---
EXAM DATE/TIME: 06/23/2017 08:47 [facility] COMPARISON: CHEST SINGLE AP, June 22, 2017, 4:29. INDICATIONS : Respiratory disease. MEDICAL HISTORY : None. SURGICAL HISTORY : Appendectomy. ENCOUNTER: Subsequent ACUITY: 1 week PAIN SCORE: Non-responsive. LOCATION: chest FINDINGS: Portable AP view of the chest demonstrates a normal-sized cardiac silhouette. Endotracheal tube tip i s at the aortic knob level measuring 4.4 cm from the antolin. Left IJ line distal tip is in the superi or vena cava and nasogastric tube distal tip is in the stomach. There is a left basilar pleural-paren chymal opacity, stable from the prior study and small right basilar opacity. No pneumothorax is visua lized. CONCLUSION: 1. Stable chest x-ray with moderate side left pleural effusion with associated volume loss and/or con solidation. 2. Stable right basilar opacity representing either atelectasis, consolidation, or small effusion. Luca Torres MD on June 23, 2017 at 9:46 Board Certified Radiologist. This report was verified electronically.
--- NOTE | 2017-06-23 12:18 | HHI.IDPN ---
Note Infectious Disease Note Patient on vent. Sedated. awakens. Low grade fever. remains on Neosynephrine. No significant sputum suctioned. Blood cultures - no growth. D/C with RN and . Admitted to the hospital with weakness, abdominal pain and nausea. The patient is status post anterior resection of colon and rectal areas and anastomosis along with a diverting ileostomy and also resection of a segment of left ureter with ureteral anastomosis and double-J stent placement three weeks prior. PAST MEDICAL HISTORY: 1. Hypertension. 2. Left knee surgery. 3. Metastatic colon cancer status post resection and coloanal anastomosis and also resection and re-anastomosis of the left ureter with double-J stent placement. ALLERGIES: 1. CODEINE. MEDICATIONS: 1. Metronidazole. 2. PO Vancomycin. SOCIAL HISTORY: . Positive tobacco use. No alcohol. No illicit drug use. OBJECTIVE: Vital Signs Date Time Temp Pulse Resp B/P (MAP) Pulse Ox O2 Delivery O2 Flow Rate FiO2 06/23/17 11:00 121 51 103/68 (80) 100 89/83 (85) 06/23/17 10:00 128 06/23/17 10:00 128 55 133/72 (92) 99 94/88 (90) 06/23/17 09:18 100 40 06/23/17 09:00 119 51 134/76 (95) 100 78/75 (76) 06/23/17 08:39 125 119/79 06/23/17 08:00 98.9 119 42 108/63 (78) 100 75/72 (73) 06/23/17 08:00 119 06/23/17 07:49 123 138/90 06/23/17 07:00 115 49 123/86 (98) 98 80/72 (75) 06/23/17 06:00 109 06/23/17 04:05 100 40 06/23/17 04:00 120 06/23/17 04:00 100.1 120 19 122/77 (92) 98 91/82 (85) 06/23/17 02:00 124 06/23/17 00:54 101.2 06/23/17 00:45 99 45 06/23/17 00:00 133 06/22/17 23:11 116 80/73 06/22/17 23:10 139 72/60 06/22/17 22:00 132 06/22/17 20:40 100 45 06/22/17 20:00 100.1 130 99/70 (80) 100 06/22/17 20:00 132 06/22/17 18:00 129 06/22/17 17:21 124 78/64 06/22/17 16:30 122 44 107/73 (84) 99 82/65 (71) 06/22/17 16:26 99 40 06/22/17 16:15 116 45 108/68 (81) 100 79/65 (70) 06/22/17 16:00 99.7 136 46 96/68 (77) 100 77/67 (70) 06/22/17 16:00 136 06/22/17 15:45 138 47 86/65 (72) 99 79/64 (69) 06/22/17 15:30 139 48 87/58 (68) 100 76/61 (66) 06/22/17 15:15 132 47 102/57 (72) 100 78/62 (67) 06/22/17 15:00 131 49 120/66 (84) 100 82/65 (71) 06/22/17 14:45 134 29 121/75 (90) 100 89/71 (77) 06/22/17 14:30 135 46 95/63 (74) 100 80/65 (70) 06/22/17 14:15 140 33 105/59 (74) 98 74/63 (67) 06/22/17 14:00 139 40 83/56 (65) 100 73/63 (66) 06/22/17 14:00 139 06/22/17 13:55 140 43 109/61 (77) 99 81/65 (70) 06/22/17 13:31 144 47 110/63 (79) 99 74/62 (66) 06/22/17 13:15 141 42 83/63 (70) 100 77/63 (68) 06/22/17 13:00 136 44 93/69 (77) 100 83/65 (71) 06/22/17 12:45 139 41 97/75 (82) 100 89/68 (75) 06/22/17 12:30 133 42 84/62 (69) 99 87/66 (73) 06/22/17 12:16 100 40 06/22/17 12:15 133 41 93/68 (76) 100 81/64 (70) Laboratory Tests Test 06/22/17 04:25 06/23/17 06:59 White Blood Count 17.6 TH/MM3 16.4 TH/MM3 Red Blood Count 4.00 MIL/MM3 4.56 MIL/MM3 Hemoglobin 10.7 GM/DL 12.6 GM/DL Hematocrit 33.0 % 38.4 % Mean Corpuscular Volume 82.5 FL 84.1 FL Mean Corpuscular Hemoglobin 26.8 PG 27.6 PG Mean Corpuscular Hemoglobin Concent 32.5 % 32.9 % Red Cell Distribution Width 15.8 % 16.0 % Platelet Count 79 TH/MM3 67 TH/MM3 Mean Platelet Volume 8.0 FL 9.1 FL CBC Comment AUTO DIFF Differential Total Cells Counted 100 Neutrophils % (Manual) 22 % Band Neutrophils % 11 % Lymphocytes % 9 % Monocytes % 31 % Eosinophils % 7 % Neutrophils # (Manual) 9.2 TH/MM3 Metamyelocytes 2 % Myelocytes 15 % Promyelocytes 2 % Nucleated Red Blood Cells 1 /100 WBC Differential Comment FINAL DIFF MANUAL Blastocytes 1 % Toxic Granulation 2+ Platelet Estimate LOW Platelet Morphology Comment NORMAL Laboratory Tests Test 06/21/17 21:39 06/22/17 04:25 06/22/17 17:55 Lactic Acid Level 3.0 mmol/L 3.4 mmol/L Blood Urea Nitrogen 21 MG/DL Creatinine 1.10 MG/DL Random Glucose 104 MG/DL Total Protein 4.4 GM/DL Albumin 1.3 GM/DL Calcium Level 7.0 MG/DL Magnesium Level 1.7 MG/DL Alkaline Phosphatase 91 U/L Aspartate Amino Transf (AST/SGOT) 42 U/L Alanine Aminotransferase (ALT/SGPT) 19 U/L Total Bilirubin 0.6 MG/DL Sodium Level 134 MEQ/L Potassium Level 3.3 MEQ/L Chloride Level 97 MEQ/L Carbon Dioxide Level 28.3 MEQ/L Anion Gap 9 MEQ/L Estimat Glomerular Filtration Rate 67 ML/MIN Protein Corrected Calcium 8.5 MG/DL Microbiology Date/Time Source Procedure Growth Status 06/20/17 17:11 Blood Peripheral Aerobic Blood Culture - Preliminary NO GROWTH IN 3 DAYS Resulted 06/20/17 17:11 Blood Peripheral Anaerobic Blood Culture - Preliminary NO GROWTH IN 3 DAYS Resulted 06/20/17 17:02 Blood Peripheral Aerobic Blood Culture - Preliminary NO GROWTH IN 3 DAYS Resulted 06/20/17 17:02 Blood Peripheral Anaerobic Blood Culture - Preliminary NO GROWTH IN 3 DAYS Resulted 06/20/17 15:50 Urine Catheterized Urine Urine Culture - Final NO GROWTH IN 48 HOURS. Complete IMAGING: Chest X-Ray 06/23/17 0000 Signed Impressions: Service Date/Time: June 08:47 - CONCLUSION: 1. Stable chest x-ray with moderate side left pleural effusion with associated volume loss and/or consolidation. 2. Stable right basilar opacity representing either atelectasis, consolidation, or small effusion. Luca Torres MD Abdomen X-Ray 06/23/17 0000 Signed Impressions: Service Date/Time: June 08:08 - CONCLUSION: Improving bowel gas pattern compared to the prior study. The NG tube is in good position in the stomach. Krzysztof Cruz MD Chest X-Ray 06/21/17 0600 Signed Impressions: Service Date/Time: Wednesday, June 21, 2017 04:13 - CONCLUSION: 1. Cardiomegaly and findings of vascular congestion without overt failure. 2. Left lower lobe atelectasis versus pneumonia. Small left effusion Eddie Saucedo MD Abdomen X-Ray 06/21/17 0000 Signed Impressions: Service Date/Time: Wednesday, June 21, 2017 09:12 - CONCLUSION: Worsening dilatation of the small bowel. Tip of the NG tube in the fundus of the stomach. Pierce Ospina Jr., MD Abdomen X-Ray 06/20/17 1023 Signed Impressions: Service Date/Time: Tuesday, June 20, 2017 10:46 - CONCLUSION: 1. Nasogastric tube distal tip is in the gastric cardia region likely just beyond the GE junction. However, sentinel hole is in the distal esophagus. Suggest advancement. 2. Abnormally dilated small bowel, unchanged from the earlier study and suspicious for small bowel obstruction. Luca Torres MD Chest X-Ray 06/20/17 0600 Signed Impressions: Service Date/Time: Tuesday, June 20, 2017 04:14 - CONCLUSION: 1. Cardiomegaly and findings of congestive heart failure. The findings have worsened when compared with the prior examination. Eddie Suacedo MD Chest X-Ray 06/20/17 0000 Signed Impressions: Service Date/Time: Tuesday, June 20, 2017 05:05 - CONCLUSION: 1. Endotracheal tube below the antolin. It should be retracted 3 cm Eddie Saucedo MD Chest CT 06/20/17 0000 Signed Impressions: Service Date/Time: Tuesday, June 20, 2017 07:42 - CONCLUSION: 1. Bilateral effusions and consolidative changes in both lung bases. Bao Lora MD Abdomen/Pelvis CT 06/20/17 0000 Signed Impressions: Service Date/Time: Tuesday, June 20, 2017 07:39 - CONCLUSION: 1. Dilated stomach and multiple dilated loops of small bowel, likely ileus. 2. No definite gastric volvulus. 3. Fat containing right inguinal hernia which also contains small portion of the urinary bladder and minimal fluid. 4. Left-sided nephroureteral stent in good position. 5. Bibasilar consolidation and small pleural effusions. Sarwat Suarez MD Chest X-Ray 06/19/17 0000 Signed Impressions: Service Date/Time: Monday, June 19, 2017 07:17 - CONCLUSION: Bibasilar atelectasis. Otherwise, no significant changes. Krzysztof Cruz MD Abdomen X-Ray 06/19/17 0000 Signed Impressions: Service Date/Time: Monday, June 19, 2017 07:22 - CONCLUSION: There continues to be multiple dilated loops of small bowel throughout the abdomen. The dilatation appears to be mildly increased compared to the prior examination. Finding suggest a distal small bowel obstruction versus ileus. Krzysztof Cruz MD PHYSICAL EXAMINATION: GENERAL: No acute distress. HEAD, EYES, EARS, NOSE, THROAT: No icterus. Oropharynx with dry mucosa. NECK: The neck is supple without adenopathy. No jugular venous distention. LUNGS: decreased BS. Slight rhonchi at the bases. HEART: Regular S1-S2 without murmurs, rubs or gallops. ABDOMEN: Diminished bowel sounds. Soft. Mild distension. Colostomy tube in the right abdomen. EXTREMITIES: No clubbing or cyanosis or edema. The distal extremities are warm. SKIN: No rash. NEUROLOGIC: Nonfocal. IMPRESSION: 1. Bandemia in a patient with lactic acidosis. The patient is status post recent surgery for rectal cancer and recent ureteral resection and double J ureteral stent. Probable severe sepsis based on parameters including hypotension. 2. C difficile colitis. Pseudomembraneous enteritis. 3. Acute respiratory failure. 4. Abnormal CXR - probable atelectasis. RECOMMENDATIONS: 1. Continue Flagyl. 2. Continue PO Vancomycin. 3. Follow the blood cultures. 4. Monitor the white blood cell count and temperature. Want to avoid unnecessary additional antibiotics if possible. El Espinoza MD Jun 23, 2017 12:18
[2017-06-23 13:10] LABS: ALKALINE PHOSPHATASE 130 U/L (45-117); ALT (GPT) 38 U/L (12-78); ANION GAP 8 MEQ/L (5-15); AST (GOT) 129 U/L (15-37); BICARBONATE 27.9 MEQ/L (21.0-32.0); BLOOD UREA NITROGEN 23 MG/DL (7-18); CHLORIDE 97 MEQ/L (98-107); GLOMERULAR FILTRATION RATE 61 ML/MIN (>89); POTASSIUM 3.6 MEQ/L (3.5-5.1); SODIUM (NA) 133 MEQ/L (136-145); TOTAL BILIRUBIN ADULT 0.9 MG/DL (0.2-1.0)
[2017-06-23] MEDS: IRR IRRIGATION SCH ×2 (13:29→17:38)
[2017-06-23] MEDS: VANCOMYCIN IRRIGATION SCH ×2 (13:29→17:38)
[2017-06-23] MEDS: SODIUM CHLORIDE 0.9% IRRIGATION SCH ×2 (13:29→17:38)
[2017-06-23 15:09] LABS: HEPARIN AB OD 0.504 O.D. (0.000-0.300); HEPARIN INDUCED PLATELET AB POSITIVE (NEGATIVE)
[2017-06-23] MEDS ORDERED: AMIODARONE 150 MG/D5W 97 ML BOLUS 10 MINUTES IV ONE ×2 (15:15)
--- NOTE | 2017-06-23 16:12 | HHI.CCPN ---
Subjective Remarks/Hospital Course The patient is a 67-year-old male with past medical history of hypertension, metastatic colon cancer, tobacco abuse, who, about 3 weeks ago underwent low anterior resection with low colorectal anastomosis, diverting ileostomy, and resection of a segment of the left ureter with ureteral anastomosis and double- J stent placement. He presented yesterday with 5 day history of abdominal discomfort and increasing weakness. No history of high output from ileostomy. He was admitted to the colorectal surgery for dehydration and probable UTI. He was placed on ciprofloxacin and IV hydration. According to Dr. Geiger's note it was difficult dissection/resection colon mass because of the pelvic sidewall adherence and the adherence to the left ureter. A portion of ureter was resected due to possibility of tumor infiltration, and Dr. Augustine Pelayo re- anastomosed the ureter and placed left-sided double-J stent. Also 1 cm hepatic metastasis in his liver that was excised. Hospitalist consultation was requested for medical management and evaluation of tachycardia today. He was seen by Dr. Jay and was placed on infusion of Cardizem for heart rate 140s. Patient became hypotensive with systolic blood pressure early 90s. Lab work showed WBC 14.5 with 44% bands, creat increase from 1.2 to 1.4 and severely increased lactate at 8 from admission lactate of 2.6. CT of the abdomen pelvis done yesterday showed probable small bowel ileus. I evaluated the patient in the ICU. He is tachycardic in 140s, hypotensive and systolic blood pressure in mid 80s. Clinically appears very dehydrated, an NG tube was placed with approximately 3 L of some coffee-ground output. ABG shows a base excess of -10 and bicarbonate 12. I have ordered 4 liter normal saline boluses start 1 amp of bicarbonate, discontinued the LR infusion, and started bicarb gtt. Discontinue ciprofloxacin, started Zosyn every 6 hours, vancomycin 1 g 1. His elevated lactic acid and bandemia most likely secondary to severe sepsis, ileus, and severe dehydration. Serial lactate is ordered SUBJ 06/19: Lactic acid remains elevated at 6.6 despite getting 9 L of crystalloid boluses in last 24 hours. Tachycardia has improved heart rate in 110s. Remains on vasopressin at 0.04 units/min. Urine output almost 1200 mL overnight, OGT initial output was almost 3 L when placed yesterday a.m. Overnight had 550 mL of greenish brown fluid output. EGD pending today rule out gastric ischemia per Dr. Romero. Apparently Flex sig was negative post op in Dr. Geiger's office 06/20: Developed A. fib with RVR. Heart rate 200. Hemodynamically unstable, synchronized cardioversion attempted by Dr. Morales 100 200 J. Given 3 g mag sulfate and 80 mEq KCl 1, 0.5 digoxin 1 and started on amiodarone and Giorgio- Synephrine. Intubated due to hemodynamic instability. Currently remains sedated. Currently on Giorgio-Synephrine 80 mcg/m, and amiodarone. CT chest abdomen pelvis again confirms gastric and small bowel distention/ileus. UO 1800 ml in 24 hours 06/21: Remains critically ill, intubated sedated, on 100 mcg/min neosynpehrine. HR better controlled. NG output 1500, UO >1.4L. Am labs pending. Ileostomy sample positive for C Diff on PO vanc IV Flagyl. 06/22: Remains intubated sedated. Urine output 3000 mL with Bumex. NGT [address] Geiger did colonoscopy which was normal. Ileoscopy showed pseudomembranous colitis. Currently on 200 mcg/min of neosynephrine. Afib with RVR HR in 140's 06/23: Remains intubated sedated, remains in atrial fibrillation with RVR. Still requiring high doses of Giorgio-Synephrine at 190 mcg/min. UO 2.5L. chest x- ray showed bilateral large effusions. KUB shows improving small bowel distention. WBC count is slightly improved Objective Vital Signs Date Time Temp Pulse Resp B/P (MAP) Pulse Ox O2 Delivery O2 Flow Rate FiO2 06/23/17 15:51 144 113/67 06/23/17 13:00 52 99 06/23/17 12:22 40 06/23/17 12:00 98.9 06/22/17 07:00 Mechanical Ventilator Nasal Cannula Simple Mask 06/19/17 20:00 4.00 Intake and Output 06/23/17 06/23/17 06/24/17 08:00 16:00 00:00 Intake Total 1567 ml 507 ml Output Total 2260 ml Balance -693 ml 507 ml Result Diagram: 06/23/17 0659 06/23/[address] abdomen pelvis shows distal small bowel dilatation Chest x-ray no acute findings KUB shows ileus Objective Remarks Infusions: Amiodarone Giorgio-Synephrine IV heparin-hold Propofol TPN GENERAL: Well-developed and well-nourished male intubated sedated SKIN: Warm and dry. HEENT: Extraocular muscles intact. NECK: The neck is supple. LIJ central line in place CHEST:Few coarse rhonchi Equal bilaterally. CVS: Afib RVR. On Giorgio-Synephrine MAP>65. No murmurs ABDOMEN: Abdomen is distended, soft, diffuse mild tenderness. Incision appears healing well. Ileostomy is functioning well. NGT output decreasing EXTREMITIES: No pedal edema or cyanosis NEURO: Intubated heavily sedated. Moves all extremities, not following commands today. Urinary Catheter: Yes Assessment to: Continue A/P Assessment and Plan ASSESSMENT Septic shock C Diff enteritis/ileitis Acute hypoxemic respiratory failure Atrial fibrillation with RVR Acute kidney injury Ileus Lactic acidemia Probable UTI s/p Left colectomy with colorectal anastomosis, diverting ileostomy, wedge resection of liver metastasis s/p Partial resection of the left ureter with anastomosis and placement of double-J stent Hypertension Tobacco abuse Hypokalemia, hypomagnesemia PLAN: NEURO: - Propofol for sedation and ventilator synchrony. Change to Versed due to hypotension - Start Daily sedation vacation RESP: - ACV PEEP 5. FiO2 40%. - DuoNeb q6hr and PRN, vent bundle - Not stable for SBT CV: - Giorgio-Synephrine to keep map above 65, currently at 200 mcg/min - Cardioverted 2 without success and amiodarone started for A. fib with RVR - Currently in Afib with RVR. Attempt DCCV again - IV Heparin held due to thrombocytopenia. Hit screen positive hematology consulted - s/p Normal saline IV fluids 8L boluses on 06/18/17, No IVF now except TPN - DC Bumex 1mg IV q12. Start Lasix infusion at 0.25 mg per hour 06/23/17 - 2D Echo normal LV function GI: - NPO, Protonix gtt, TPN - Gastroenterology Dr. Saldana. EGD 06/19. Evidence of esophagitis, and erythematous gastritis in the gastric body and gastric antrum - C Diff positive from ileostomy sample indicating C Diff enteritis. On PO vanc and IV Flagyl - D/W Dr. Tran 06/22. Colonoscopy normal. Ileoscopy severe pseudomembranous ileitis - IV Reglan [address] Prev CT abdomen pelvis and KUB shows small bowel ileus - Continue Entereg : - Monitor renal function closely. Han catheter. UO adequate - IV Bumex as above ID: - DCd IV Zosyn, repeat urine cx negative. ID Dr. 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 IV Heparin DCd, HIT screen positive, IV Protonix 40 q12 LINES: - Left IJ central line placed CC time 40 min discontinuously and excluding procedures Critically ill and hemodynamically unstable currently on amiodarone for A. fib and Giorgio-Synephrine to maintain blood pressure. Discussed with Dr. Tran. updated Shiva Segovia MD Jun 23, 2017 16:12
[2017-06-23] MEDS: MIDAZOLAM 100 MG/100 ML INJ 100 ML IV PRN (16:25)
[2017-06-23] MEDS ORDERED: METOPROLOL TARTRATE 5 MG/5 ML VIAL IV PUSH ONE (16:30)
[2017-06-23] MEDS ORDERED: MAGNESIUM SULFATE 1 GM PREMIX 100 ML IV ONE (16:30)
[2017-06-23] MEDS ORDERED: BUMETANIDE INJ 100 ML IV SCH (17:00)
[2017-06-23] MEDS ORDERED: POTASSIUM CHLOR 40 MEQ PREMIX 100 ML IV ONE (17:30)
--- NOTE | 2017-06-23 17:43 | RADRPT ---
EXAM DATE/TIME: 06/23/2017 16:19 [facility] COMPARISON: CHEST SINGLE AP, June 23, 2017, 8:47. INDICATIONS : Respiratory disease. MEDICAL HISTORY : None. SURGICAL HISTORY : Appendectomy. ENCOUNTER: Subsequent ACUITY: 1 day PAIN SCORE: Non-responsive. LOCATION: Bilateral chest FINDINGS: Portable AP view of the chest demonstrates a normal-sized cardiac silhouette. ETT, left IJ line, and nasogastric tube remain present. Multiple EKG lines overlie the patient. There is a small left basila r pleural-parenchymal opacity and there is linear atelectasis at the right base. No pneumothorax is v isualized. CONCLUSION: 1. Persistent left basilar opacity representing pleural effusion with associated volume loss and/or c onsolidation. The effusion is slightly smaller. 2. Persistent atelectasis at the right lung base. Luca Torres MD on June 23, 2017 at 17:35 Board Certified Radiologist. This report was verified electronically.
[2017-06-23] MEDS ORDERED: FONDAPARINUX SODIUM 2.5 MG/0.5 ML SYRINGE SQ SCH (20:00)
[2017-06-23] MEDS: FAT EMULSION 20% INJ 250 ML (@10 mls/hr) IV-CENTRAL SCH (20:22)
[2017-06-23] MEDS: [UNRECOGNIZED DRUG - OTHER] IV-CENTRAL SCH ×10 (20:40)
[2017-06-23] MEDS: SODIUM ACETATE IV-CENTRAL SCH ×10 (20:40)
[2017-06-23] MEDS: SODIUM CHLORIDE IV-CENTRAL SCH ×10 (20:40)
--- NOTE | 2017-06-23 20:49 | MB ---
cc: BURTON HALLMAN DATE OF CONSULTATION 06/23/2017. REASON FOR CONSULTATION Suspected heparin-induced thrombocytopenia. CHIEF COMPLAINT The patient is intubated, sedated. The entirety of this history has been obtained from the nursing staff at bedside and from the electronic health record. HISTORY OF PRESENT ILLNESS Mr. Armendariz is a 67-year-old male with a complicated recent past medical history. He presented to [facility] on 06/17/2017 with complaints of weakness, abdominal pain and nausea. He at that time was about 3 weeks post low anterior resection with a low colorectal anastomosis and diverting ileostomy. 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 The disease had metastasized to his liver. A wedge resection of the liver was also performed intraoperatively and pathologic findings confirmed the presence of metastatic disease within the liver. The patient has developed C diff colitis with pseudomembranous colitis. He was readmitted to the hospital for supportive care and antibiotic therapy. Over the course of the past few days, he became increasingly septic. He developed A. Fib with RVR requiring rate control as well as anticoagulation. He subsequently developed respiratory failure and was intubated. The patient is now frankly septic requiring multiple pressor support. He is on broad-spectrum antibiotic coverage as well; with vancomycin orally and is also on Metronidazole intravenously. Over the course of this hospitalization, this individual has had a significant drop in his platelet counts; from the date of admission on 06/17/2017 his platelet counts have dropped from 495 down to 67 today. He has been on heparin infusion for therapeutic anticoagulation for his history of atrial fibrillation. 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 PAST MEDICAL HISTORY 1. Recently diagnosed adenocarcinoma of the rectosigmoid colon. 2. Metastatic disease to the liver. 3. Hypertension. PAST SURGICAL HISTORY 1. Status post left colectomy with coloanal anastomosis and diverting ileostomy. 2. Wedge resection of liver metastasis. 3. Partial resection of left ureter with anastomosis and placement of double-J stent. 4. Colonoscopies and EGDs. FAMILY HISTORY No known oncologic diagnoses. SOCIAL HISTORY Tobaccoism with a 40 pack-year history of smoking. No history of alcoholism or illicit drug use. ALLERGIES CODEINE MEDICATIONS Current inpatient 1. TPN 2. Amiodarone infusion. 3. Bumetanide per protocol. 4. Magnesium replacement protocol. 5. Metronidazole 500 mg IV q.6 h 6. Midazolam infusion. 7. Phenylephrine infusion 8. Potassium replacement protocol. 9. Vancomycin 250 mg irrigation to be administered via the patient's ileostomy t.i.d. 10. Tylenol 650 mg as needed for fever. 11. DuoNebs q.2 h as needed for wheezing. 12. Entereg 12 mg by NG tube q.12 h. 13. Metoclopramide 5 mg IV q.8 h. 14. Zofran 4 mg IV q.4 h as needed for nausea and vomiting. 15. Pantoprazole 40 mg IV q.12 h. 16. Vancomycin 500 mg via NG tube q.i.d.. REVIEW OF SYSTEMS Could not obtain. PHYSICAL EXAMINATION VITAL SIGNS: Temperature 99.4 degrees Fahrenheit, heart rate ranging between 128 and 159 beats per minute. Blood pressure ranging between 89 systolic and 150 systolic and 81 diastolic and 89 diastolic. O2 sats 98% on FIO2 40%. GENERAL APPEARANCE: Mr. Armendariz is a middle-aged/elderly male. He is laying in bed. He is non-responsive. He is intubated, ventilated and sedated. An A-line is being placed in his right radial artery by respiratory therapist. HEENT: Head atraumatic, normocephalic. Conjunctivae are pale. Sclerae are anicteric, EOMI, PERRLA, oral exam no pharyngeal erythema. NECK: No palpable cervical or supraclavicular lymphadenopathy. RESPIRATORY: Good air movement bilaterally. No added breath sounds. He has prolonged expiratory phase. He is initiating multiple spontaneous breaths. CARDIOVASCULAR: Irregular, tachycardiac, S1 S2, no obvious murmurs, rubs or gallops. ABDOMEN: The belly is soft. An ileostomy bag is noted containing liquid stools. A well-healing laparotomy incision in the midline is appreciated. LOWER EXTREMITIES: No pretibial edema, no calf tenderness. MUSCULOSKELETAL: Adequate muscle mass, tone and strength. 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 LABORATORY FINDINGS Blood work dated 06/23/2017: WBC count 16.4, hemoglobin 12.6 gm/dl, hematocrit 38.4%, platelet count 67,000. Absolute neutrophil count is 9.2, myelocytes, metamyelocytes, and promyelocytes her elevated. Toxic granulation is appreciated. Chemistries: Sodium 133, potassium 3.6, chloride 97, bicarb 28, BUN 23, creatinine 1.2, EGFR 61, glucose 105, calcium 7.6, total bilirubin 0.9, AST 129, ALT 38, alkaline phosphatase 130, albumin 1.8. Coags: PTT is 50 seconds. Body fluid microbiology: C diff colitis toxin is positive. Immunology: Heparin/platelet factor for antibody jeramie is positive dated 06/22/2017. IMAGING STUDIES CT scan of the abdomen and pelvis dated 06/20/2017 indicates dilated stomach and multiple dilated loops of small bowel likely representing ileus. No definite gastric volvulus. Fat containing right inguinal hernia which also contains portions of small bowel and of the urinary bladder with minimal fluid. Left-sided Nephroureteral stent in good position. Bibasilar consolidation and small pleural effusions are also noted. ASSESSMENT Mr. Armendariz is a 67-year-old male who was recently diagnosed with metastatic adenocarcinoma of the rectosigmoid colon. He is status post primary surgical resection as well as wedge resection of a metastatic deposit to the liver. He was assessed to have T3 N0 M1b stage IV disease. He was discharged postop and had been recovering well. Approximately three weeks postoperative, he presented to the emergency department with abdominal pain, distension and nausea and vomiting. The patient was found to have C diff colitis. He underwent colonoscopy which revealed pseudomembranous colitis. He shortly thereafter developed sepsis. He developed A. Fib with RVR and respiratory failure. He was intubated. He is requiring pressor support and had been on IV Amiodarone as well as IV heparin for anticoagulation. Over the course of this hospitalization, his platelet counts have dropped down from a level of approximately 490,000 at the time of admission down to approximately 65,000 as of today. A heparin/platelet factor IV antibody was found to be positive. Confirmatory SMILEY has been ordered and is pending at this time. The hematology service has been asked to see this individual for additional management for suspected HIT. He has no known thromboses at this time. Additionally, he does have a diagnosis of metastatic adenocarcinoma of the colon. RECOMMENDATIONS 1. Thrombocytopenia: Given the context of the thrombocytopenia, i.e. severe sepsis with respiratory failure requiring multiple antibiotics, I would estimate the likelihood of him having a true HIT to be somewhere in the low to intermediate range. It would be reasonable, however, to continue anticoagulation at this point given his history of atrial fibrillation and given the high risk of venous thrombosis associated with sepsis. I would therefore recommend he be initiated on Arixtra, but I would dose him at a prophylactic dose as opposed to a therapeutic dose given his thrombocytopenia. The SMILEY study can take up to five to seven working days to be resulted. I would recommend continuation of Arixtra until then. 3. Metastatic adenocarcinoma of the colorectum: At this point, he needs to recover fully from his severe sepsis and organ failure. At some point, should he recover and regain his performance status he may be a candidate for palliative systemic therapy, but this can be addressed at a later time in the appropriate setting. The hematology service will follow along with you. MD SPARKLE Raymond/ /6:13 PM /8:20 PM AI
--- NOTE | 2017-06-23 20:59 | RADRPT ---
EXAM DATE/TIME: 06/23/2017 20:16 [facility] COMPARISON: No previous studies available for comparison. INDICATIONS : Bilateral leg swelling. MEDICAL HISTORY : Hypertension. Hypercholesterolemia. Carcinoma, unspecified. Chemotherapy. Radiation therapy. SURGICAL HISTORY : Abdominal surgery, unspecified. Left knee surgery. ENCOUNTER: Initial ACUITY: 1 day PAIN SCORE: Non-responsive LOCATION: Bilateral legs. TECHNIQUE: Venous ultrasound of the left and right leg was performed from the inguinal ligament to the proximal calf. Real-time, color Doppler and spectral tracing, compression and augmentation techniques were us ed. FINDINGS: RIGHT LEG: There is normal compressibility of the deep venous system from the inguinal region to the proximal ca lf. No echogenic clot is seen in the lumen of the common femoral, femoral, popliteal, and posterior tibial veins. There is a normal response of the venous system to proximal and distal augmentation an d respiration. Iliac vein patent LEFT LEG: There is normal compressibility of the deep venous system from the inguinal region to the proximal ca lf. No echogenic clot is seen in the lumen of the common femoral, femoral, popliteal, and posterior tibial veins. There is a normal response of the venous system to proximal and distal augmentation an d respiration. Iliac vein open patent CONCLUSION: Normal examination. No evidence DVT Trav Hsieh MD on June 23, 2017 at 20:57 Board Certified Radiologist. This report was verified electronically.
--- NOTE | 2017-06-23 21:19 | RADRPT ---
EXAM DATE/TIME: 06/23/2017 20:03 [facility] COMPARISON: No previous studies available for comparison. INDICATIONS : Bilateral arm swelling. MEDICAL HISTORY : Hypertension. Hypercholesterolemia. Carcinoma, unspecified. Chemotherapy. Radiation therapy. SURGICAL HISTORY : Abdominal surgery, unspecified. Left knee surgery. ENCOUNTER: Initial ACUITY: 1 day PAIN SCORE: Non-responsive LOCATION: Bilateral arms. FINDINGS: A right cephalic vein proximal to distal is noncompressible and left basilic vein is not compressible at the distal portion suggesting DVT. Remainder of the structures are open and patent occlusive of p atent jugular veins CONCLUSION: Noncompressibility right cephalic vein and left basilic vein consistent with venous thrombosis Trav Hsieh MD on June 23, 2017 at 21:15 Board Certified Radiologist. This report was verified electronically.
[2017-06-24] VITALS (39 sets, daily range): BP systolic 77–188; BP diastolic 53–104; PULSE 109–177; RESP 24–77; TEMP 98.8–100.8; O2SAT 95–100
[2017-06-24] MEDS: METOCLOPRAMIDE HCL 10 MG/2 ML VIAL IV PUSH SCH ×3 (00:32→16:25)
[2017-06-24] MEDS: metroNIDAZOLE 500 MG INJ 100 ML IV SCH ×3 (00:32→17:00)
[2017-06-24] MEDS: PHENYLEPHRINE INJ 160 MG in DEXTROSE 5% IN WATE 500 ML INJ 484 ML IV PRN ×2 (00:32)
[2017-06-24] MEDS: ALBUMIN 25% INJ 50 ML IV SCH ×2 (02:45→14:15)
[2017-06-24] MEDS: MAGNESIUM SULFATE 1 GM PREMIX 100 ML IV SCH ×2 (03:06→03:07)
[2017-06-24] MEDS: MIDAZOLAM 100 MG/100 ML INJ 100 ML IV PRN ×3 (03:20→23:12)
--- NOTE | 2017-06-24 03:57 | PD.PROCEDR ---
Procedure Note Procedure Procedure: Synchronized DC Cardioversion Diagnosis: Hemodynamically unstable Atrial fibrillation with rapid ventricular response Indications: Patient has he mechanically unstable atrial fibrillation with rapid ventricular response, not able to be controlled with conservative measures Consent: Written consent was obtained Sedation: Versed IV Pre-procedure Rhythm: Atrial fibrillation with rapid ventricular response Post-procedure Rhythm: Atrial fibrillation with rapid ventricular response Description of the Procedure: The patient was placed on telemetry. Zoll pads were connected to the patient. A time-out procedure was performed. The patient was sedated until they were unresponsive. Using 150, 200, 200 J of electricity, the patient underwent synchronized cardioversion. The cardioversion was not successful. At the conclusion of the third attempt, the procedure was aborted because of this point the risks of further cardioversion outweighs the benefits. There were no immediate complications noted. Michi Child MD Jun 24, 2017 03:57
[2017-06-24] MEDS: INSULIN ASPART SUPPLEMENTAL SCALE SQ SCH ×7 (04:00→23:39)
[2017-06-24] MEDS: RESP: ALBUTEROL 2.5 MG/IPRATROPIUM 0.5 MG NEB (SCH) NEB ×4 (04:00→20:38)
[2017-06-24 05:55] LABS: BLOOD GAS BASE EXCESS 0.6 mmol/L (-2-2); BLOOD GAS HCO3 24 mmol/L (22-26); BLOOD GAS METHEMOGLOBIN 1.1 % (0-2); BLOOD GAS O2 HGB SATURATION 98 % (90-100); BLOOD GAS OXYGEN CONTENT 17.6 Vol % (12.0-20.0); BLOOD GAS PCO2 33 mmHg (38-42); BLOOD GAS PO2 303 mmHg (61-120); BLOOD GAS TOTAL HGB 12.3 G/DL (12.0-16.0); CRITICAL VALUE NO; OXYGEN DEVICE VENTILATOR; TEMP CORR TO 98.6; VENT SETTINGS AC16/600/5PEEP
[2017-06-24 05:56] LABS: DRAW SITE ART LINE; FIO2 100 %; STAT NO
[2017-06-24] MEDS: PANTOPRAZOLE SODIUM 40 MG VIAL IV PUSH SCH ×2 (06:19→17:39)
[2017-06-24 07:39] LABS: AUTOMATED NEUTROPHIL # 11.4 TH/MM3 (1.8-7.7); BASOPHIL # 0.2 TH/MM3 (0-0.2); BASOPHIL % 1.1 % (0.0-2.0); EOSINOPHIL # 0.1 TH/MM3 (0-0.4); EOSINOPHIL % 0.5 % (0.0-4.0); HEMATOCRIT 37.4 % (39.0-51.0); LYMPH % 7.1 % (9.0-44.0); LYMPHOCYTE # 0.9 TH/MM3 (1.0-4.8); MEAN CELL VOLUME 83.1 FL (80.0-100.0); MEAN CORPUSCULAR HEMOGLOBIN 28.2 PG (27.0-34.0); MEAN CORPUSCULAR HGB CONC 33.9 % (32.0-36.0); MONO % 5.7 % (0.0-8.0); NEUT % 85.6 % (16.0-70.0); PLATELET COUNT 45 TH/MM3 (150-450); RED CELL DISTRIBUTION WIDTH 15.6 % (11.6-17.2); WHITE BLOOD COUNT 13.3 TH/MM3 (4.0-11.0)
[2017-06-24 07:44] LABS: HEMO FLAGS AUTO DIFF
[2017-06-24] MEDS: IRR IRRIGATION SCH ×3 (07:52→17:39)
[2017-06-24] MEDS: CHLORHEXIDINE 0.12% (ORAL KIT) 15 ML CUP MT SCH ×2 (07:52→20:53)
[2017-06-24] MEDS: VANCOMYCIN IRRIGATION SCH ×3 (07:52→17:39)
[2017-06-24] MEDS: SODIUM CHLORIDE 0.9% IRRIGATION SCH ×3 (07:52→17:39)
[2017-06-24] MEDS: ALVIMOPAN 12 MG CAPSULE NG SCH ×2 (07:53→20:53)
[2017-06-24] MEDS: VANCOMYCIN 500 MG VIAL (FOR ORAL USE ONLY) NG SCH ×4 (07:53→20:53)
[2017-06-24 08:20] LABS: BICARBONATE 26.4 MEQ/L (21.0-32.0); CALCIUM-PROTEIN CORRECTED 8.4 MG/DL (8.5-10.1); MAGNESIUM 2.4 MG/DL (1.5-2.5); POTASSIUM 3.7 MEQ/L (3.5-5.1); TOTAL BILIRUBIN ADULT 1.3 MG/DL (0.2-1.0)
[2017-06-24 08:39] LABS: BANDS 8 % (0-6); CORRECTED NUCLEATED RBC 2 /100 WBC (0-0); METAMYELOCYTES 8 % (0-1); MYELOCYTES 6 % (0-0); POLYS (SEG NEUTROPHILS) 58 % (16-70); PROMYELOCYTES 3 % (0-0); SCAN/DIFF FINAL DIFF MANUAL; WBC DIFF SAMPLE 100
[2017-06-24 08:40] LABS: PLATELET ESTIMATE SMEAR LOW (NORMAL); PLATELET MORPHOLOGY NORMAL (NORMAL); TOXIC GRANULATION 1+ (NORMAL); TOXIC VACUOLATION PRESENT (NONE SEEN)
--- NOTE | 2017-06-24 10:04 | PD.ONC.PN ---
Subjective Subjective Remarks Patient seen and examined this morning, he remains intubated and ventilated. Overnight he required cardioversion for A. fib with rapid ventricular response, his FiO2 delivery via ventilator was increased to 100%. He remains tachycardic with his heart rate ranging between 145 and 155 beats per minute minute as observed by myself at bedside during this encounter. Looking at the rhythm strip on the monitor worker at bedside it is difficult to determine with the current rate elevation whether he is in sinus or whether he remains in atrial fibrillation. I did speak with the glass presser, for the glass presser the patient is ventilated due to bilateral lateral pleural effusions which have resulted in respiratory failure. Therapeutic thoracentesis is planned for later today. His platelets have declined from 67,000 down to 45,000 over the past 24 hours. There is no sign of overt bleeding. Objective Data Date Time Temp Pulse Resp B/P (MAP) Pulse Ox O2 Delivery O2 Flow Rate FiO2 06/24/17 09:00 165 68 142/60 (87) 99 86/59 (68) 06/24/17 08:00 50 06/24/17 08:00 146 06/24/17 08:00 99.2 146 65 115/74 (88) 100 95/65 (75) 06/24/17 07:58 100 100 06/24/17 07:50 149 119/72 06/24/17 07:00 146 63 135/78 (97) 100 106/67 (80) 06/24/17 06:00 161 65 122/86 (98) 100 110/70 (83) 06/24/17 06:00 161 06/24/17 05:30 154 06/24/17 05:30 154 62 142/101 (115) 100 112/71 (85) 06/24/17 05:00 155 66 133/104 (114) 100 90/62 (71) 06/24/17 05:00 155 06/24/17 04:32 100 100 06/24/17 04:00 99.9 171 66 141/78 (99) 100 95/60 (72) 06/24/17 04:00 171 06/24/17 03:30 158 66 133/75 (94) 100 98/59 (72) 06/24/17 03:30 158 06/24/17 03:00 162 67 112/91 (98) 99 78/63 (68) 06/24/17 03:00 162 06/24/17 02:30 177 68 135/87 (103) 96 119/77 (91) 06/24/17 02:30 177 06/24/17 02:00 168 72 114/80 (91) 98 113/69 (84) 06/24/17 02:00 168 06/24/17 01:30 169 64 120/72 (88) 99 111/68 (82) 06/24/17 01:30 169 06/24/17 01:04 168 06/24/17 01:04 168 67 121/90 (100) 98 79/60 (66) 06/24/17 01:00 171 72 188/85 (119) 98 88/60 (69) 06/24/17 01:00 171 06/24/17 00:52 99 40 06/24/17 00:32 164 112/71 06/24/17 00:30 164 06/24/17 00:30 164 77 172/96 (121) 97 77/59 (65) 06/24/17 00:00 158 06/24/17 00:00 158 67 135/80 (98) 100 112/71 (85) 06/23/17 22:00 147 06/23/17 21:49 151 115/65 06/23/17 21:07 100 40 06/23/17 20:00 100.8 133 65 114/60 (78) 100 88/54 (65) 06/23/17 20:00 133 06/23/17 18:00 158 06/23/17 18:00 158 61 122/75 (91) 98 119/64 (82) 06/23/17 17:26 98 40 06/23/17 17:00 116 58 105/68 (80) 99 87/82 (84) 06/23/17 16:00 151 06/23/17 16:00 99.4 151 57 111/68 (82) 98 94/89 (91) 06/23/17 15:51 144 113/67 06/23/17 15:00 159 58 153/86 (108) 98 91/87 (88) 06/23/17 15:00 159 06/23/17 14:00 128 54 106/62 (77) 100 89/85 (86) 06/23/17 14:00 128 06/23/17 13:00 135 52 101/68 (79) 99 90/81 (84) 06/23/17 12:22 100 40 06/23/17 12:00 98.9 133 54 105/67 (80) 94 90/84 (86) 06/23/17 12:00 129 06/23/17 11:00 121 51 103/68 (80) 100 89/83 (85) 06/24/17 06/24/17 06/24/17 07:00 15:00 23:00 Intake Total 950 ml 176 ml Output Total 1250 ml Balance -300 ml 176 ml Result Diagram: 06/24/17 0618 06/24/1718 Laboratory Results Laboratory Tests Test 06/23/17 11:50 06/23/17 18:50 06/24/17 05:37 06/24/17 06:18 Blood Urea Nitrogen 23 MG/DL 29 MG/DL Creatinine 1.19 MG/DL 1.32 MG/DL Random Glucose 105 MG/DL 126 MG/DL Total Protein 5.1 GM/DL 5.1 GM/DL Albumin 1.8 GM/DL 1.9 GM/DL Calcium Level 7.6 MG/DL 7.3 MG/DL Alkaline Phosphatase 130 U/L 197 U/L Aspartate Amino Transf (AST/SGOT) 129 U/L 546 U/L Alanine Aminotransferase (ALT/SGPT) 38 U/L 158 U/L Total Bilirubin 0.9 MG/DL 1.3 MG/DL Sodium Level 133 MEQ/L 131 MEQ/L Potassium Level 3.6 MEQ/L 3.7 MEQ/L Chloride Level 97 MEQ/L 96 MEQ/L Carbon Dioxide Level 27.9 MEQ/L 26.4 MEQ/L Anion Gap 8 MEQ/L 9 MEQ/L Estimat Glomerular Filtration Rate 61 ML/MIN 54 ML/MIN Fibrinogen 514 mg/dL Blood Gas Puncture Site ART LINE Blood Gas Patient Temperature 98.6 Blood Gas HCO3 24 mmol/L Blood Gas Base Excess 0.6 mmol/L Blood Gas Oxygen Saturation 98 % Arterial Blood pH 7.47 Arterial Blood Partial Pressure CO2 33 mmHg Arterial Blood Partial Pressure O2 303 mmHg Arterial Blood Oxygen Content 17.6 Vol % Arterial Blood Carboxyhemoglobin 1.0 % Arterial Blood Methemoglobin 1.1 % Blood Gas Hemoglobin 12.3 G/DL Oxygen Delivery Device VENTILATOR Blood Gas Ventilator Setting AC16/600/5PEEP Blood Gas Inspired Oxygen 100 % White Blood Count 13.3 TH/MM3 Red Blood Count 4.50 MIL/MM3 Hemoglobin 12.7 GM/DL Hematocrit 37.4 % Mean Corpuscular Volume 83.1 FL Mean Corpuscular Hemoglobin 28.2 PG Mean Corpuscular Hemoglobin Concent 33.9 % Red Cell Distribution Width 15.6 % Platelet Count 45 TH/MM3 Mean Platelet Volume 9.4 FL Neutrophils (%) (Auto) 85.6 % Lymphocytes (%) (Auto) 7.1 % Monocytes (%) (Auto) 5.7 % Eosinophils (%) (Auto) 0.5 % Basophils (%) (Auto) 1.1 % Neutrophils # (Auto) 11.4 TH/MM3 Lymphocytes # (Auto) 0.9 TH/MM3 Monocytes # (Auto) 0.8 TH/MM3 Eosinophils # (Auto) 0.1 TH/MM3 Basophils # (Auto) 0.2 TH/MM3 CBC Comment AUTO DIFF Differential Total Cells Counted 100 Neutrophils % (Manual) 58 % Band Neutrophils % 8 % Lymphocytes % 15 % Monocytes % 2 % Neutrophils # (Manual) 11.0 TH/MM3 Metamyelocytes 8 % Myelocytes 6 % Promyelocytes 3 % Nucleated Red Blood Cells 2 /100 WBC Differential Comment FINAL DIFF MANUAL Toxic Granulation 1+ Toxic Vacuolation PRESENT Platelet Estimate LOW Platelet Morphology Comment NORMAL Magnesium Level 2.4 MG/DL Protein Corrected Calcium 8.4 MG/DL Administered Medications Medications (Trade) Dose Ordered Sig/[place] Route PRN Reason Start Time Stop Time Status Last Admin Dose Admin Acetaminophen/ Hydrocodone Bitart ([place] 5-325 Mg) 1 tab Q4H PRN PO PAIN SCALE 1 TO 5 06/17/17 22:00 06/17/17 22:02 Acetaminophen/ Hydrocodone Bitart ([place] 5-325 Mg) 2 tab Q4H PRN PO PAIN SCALE 6 TO 10 06/17/17 22:00 06/21/17 20:40 Ondansetron HCl (Zofran Inj) 4 mg Q4H PRN IV PUSH NAUSEA/VOMITING 06/17/17 22:00 06/18/17 09:45 Miscellaneous Information Patient in critical care unit? Ass... [id number] 06/18/17 05:45 06/18/17 05:45 Vasopressin 40 units/Dextrose 100 ml @ 6 mls/hr [id number] IV 06/18/17 15:29 06/19/17 08:09 Metoclopramide HCl (Reglan Inj) 5 mg Q8H IV PUSH 06/18/17 17:00 06/24/17 07:53 Potassium Chloride 100 ml @ 50 mls/hr Q2H PRN IV For Potassium 2.8 - 3.2 mEq/L 06/19/17 07:45 06/21/17 03:31 Potassium Chloride 100 ml @ 50 mls/hr Q2H PRN IV For Potassium 3.3 - 3.5 mEq/L 06/19/17 07:45 06/22/17 17:22 Sodium Phosphate 30 mmol/Sodium Chloride 250 ml @ 42 mls/hr UNSCH PRN IV For Phosphorus < 2.5 mg/dL 06/19/17 07:45 06/20/17 17:06 Fat Emulsion Intravenous 250 ml @ 10 mls/hr Q24H IV-CENTRAL 06/19/17 20:00 06/23/17 20:22 Insulin Aspart (NovoLOG SUPPLEMENTAL SCALE) 1 Q4HR SQ 06/19/17 12:00 06/21/17 20:34 Sodium Chloride 40 meq/Sodium Acetate 59 meq/ Potassium Chloride 40 meq/ Sodium Phosphate 40 meq/Magnesium Chloride 10 meq/ Calcium Chloride 9 meq/ Multivitamins 10 ml/Folic Acid 1 mg/Insulin Human Regular 40 units/ Amino Acids/ Dextrose 2,091.7937 ml @ 50 mls/hr Q24H IV-CENTRAL 06/19/17 20:00 06/23/17 20:40 Vancomycin HCl (VANCOMYCIN for oral use only) 500 mg QID NG 06/19/17 18:00 06/24/17 07:53 Phenylephrine HCl 160 mg/Dextrose 500 ml @ 7.5 mls/hr TITRATE PRN IV Blood pressure management 06/19/17 19:15 06/24/17 00:32 Amiodarone HCl 450 mg/Dextrose 250 ml @ 33.33 mls/ hr Q7H31M IV 06/19/17 19:15 06/23/17 21:49 Chlorhexidine Gluconate (Peridex 0.12% Liq) 15 ml BID@08,20 MT 06/20/17 08:00 06/24/17 07:52 Metronidazole 100 ml @ 100 mls/hr Q8H IV 06/20/17 09:00 06/24/17 07:52 Acetaminophen (Tylenol 650 Mg/ 20 ml Liq) 650 mg Q6H PRN PO fever>100.5 06/20/17 16:30 06/23/17 03:57 Albuterol/ Ipratropium (Duoneb Neb) 1 ampule Q6HR NEB NEB 06/21/17 10:00 06/23/17 09:17 Pantoprazole Sodium (Protonix Inj) 40 mg Q12H IV PUSH 06/21/17 07:00 06/24/17 06:19 Alvimopan (Entereg) 12 mg Q12HR NG 06/22/17 12:00 06/24/17 07:53 Albumin Human 50 ml @ 60 mls/hr Q12H IV 06/22/17 15:00 06/24/17 02:45 Vancomycin HCl 250 mg/Sodium Chloride 102.5 ml @ 0 mls/hr TID IRRIGATION 06/23/17 13:00 06/24/17 07:52 Bumetanide 100 ml @ 1 mls/hr Q24H IV 06/23/17 17:00 06/23/17 16:39 Midazolam HCl 100 ml @ 2 mls/hr TITRATE PRN IV SEDATION 06/23/17 16:15 06/24/17 03:20 Fondaparinux (Arixtra Inj) 2.5 mg Q24H SQ 06/23/17 20:00 06/23/17 20:21 Objective Remarks GENERAL APPEARANCE: Mr. Armendariz is a middle-aged/elderly male. He is laying in bed. He is non-responsive. He is intubated, ventilated and sedated. An A-line is being placed in his right radial artery by respiratory therapist. HEENT: Head atraumatic, normocephalic. Conjunctivae are pale. Sclerae are anicteric, EOMI, PERRLA, oral exam no pharyngeal erythema. NECK: No palpable cervical or supraclavicular lymphadenopathy. RESPIRATORY: Good air movement bilaterally. No added breath sounds. He has prolonged expiratory phase. He is initiating multiple spontaneous breaths. CARDIOVASCULAR: Irregular, tachycardiac, S1 S2, no obvious murmurs, rubs or gallops. ABDOMEN: The belly is soft. An ileostomy bag is noted containing liquid stools. A well-healing laparotomy incision in the midline is appreciated. LOWER EXTREMITIES: No pretibial edema, no calf tenderness. MUSCULOSKELETAL: Adequate muscle mass, tone and strength. 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 Assessment/Plan Assessment Mr. Armendariz is a 67-year-old male who was recently diagnosed with metastatic adenocarcinoma of the rectosigmoid colon. He is status post primary surgical resection as well as wedge resection of a metastatic deposit to the liver. He was assessed to have T3 N0 M1b stage IV disease. He was discharged postop and had been recovering well. Approximately three weeks postoperative, he presented to the emergency department with abdominal pain, distension and nausea and vomiting. The patient was found to have C diff colitis. He underwent colonoscopy which revealed pseudomembranous colitis. He shortly thereafter developed sepsis. He developed A. Fib with RVR and respiratory failure. He was intubated. He is requiring pressor support and had been on IV Amiodarone as well as IV heparin for anticoagulation. Over the course of this hospitalization, his platelet counts have dropped down from a level of approximately 490,000 at the time of admission down to approximately 65,000 as of 06/23/2017. A heparin-platelet factor 4 antibody was found to be positive. Confirmatory SMILEY has been ordered and is pending and was ordered On 06/23/2017. The hematology service has been asked to see this individual for additional management for suspected HIT. He has no known thromboses at this time. Additionally, he does have a diagnosis of metastatic adenocarcinoma of the colon. Plan 1. Thrombosis identified in the cephalic and brachial veins in the upper extremity: There is no doubt he is hypercoagulable, this may be related solely to his underlying malignancy and his sepsis, it is not yet known whether he has heparin-induced thrombocytopenia. The diagnosis of heparin-induced thrombocytopenia is confirmed on SMILEY, he would then by definition have heparin- induced thrombocytopenia with thrombosis (MEMO). At this point I would recommend transitioning him from prophylactic anticoagulation with Arixtra 2.5 mg daily subcutaneous to therapeutic anticoagulation with Argatroban. This is been ordered. Await SMILEY results. 2. Thrombocytopenia: Continue monitoring, in the event of overt bleeding or precipitous drop in his hemoglobin and hematocrit please transfuse 1 unit platelets. 3. Metastatic adenocarcinoma of the colorectum: Status post resection of the primary tumor and wedge resection of a metastatic deposit involving the liver. Await recovery from acute sepsis and multiorgan failure before initiation of any cancer directed therapy. 4. Respiratory failure: Thoracentesis is planned for later today to help drain pleural fluid. Faraz Ryan MD Jun 24, 2017 10:04
[2017-06-24] MEDS ORDERED: MISCELLANEOUS PHARMACY INFORMATION OTHER ONE (11:00)
[2017-06-24] MEDS ORDERED: ARGATROBAN INJ 250 MG in SODIUM CHLOR 0.9% 250 ML INJ 250 ML IV PRN (12:00)
[2017-06-24 12:08] LABS: APTT (PATIENT) 56.2 SEC (24.3-30.1)
--- NOTE | 2017-06-24 13:52 | HHI.CCPN ---
Subjective Remarks/Hospital Course The patient is a 67-year-old male with past medical history of hypertension, metastatic colon cancer, tobacco abuse, who, about 3 weeks ago underwent low anterior resection with low colorectal anastomosis, diverting ileostomy, and resection of a segment of the left ureter with ureteral anastomosis and double- J stent placement. He presented yesterday with 5 day history of abdominal discomfort and increasing weakness. No history of high output from ileostomy. He was admitted to the colorectal surgery for dehydration and probable UTI. He was placed on ciprofloxacin and IV hydration. According to Dr. Geiger's note it was difficult dissection/resection colon mass because of the pelvic sidewall adherence and the adherence to the left ureter. A portion of ureter was resected due to possibility of tumor infiltration, and Dr. Augustine Pelayo re- anastomosed the ureter and placed left-sided double-J stent. Also 1 cm hepatic metastasis in his liver that was excised. Hospitalist consultation was requested for medical management and evaluation of tachycardia today. He was seen by Dr. Jay and was placed on infusion of Cardizem for heart rate 140s. Patient became hypotensive with systolic blood pressure early 90s. Lab work showed WBC 14.5 with 44% bands, creat increase from 1.2 to 1.4 and severely increased lactate at 8 from admission lactate of 2.6. CT of the abdomen pelvis done yesterday showed probable small bowel ileus. I evaluated the patient in the ICU. He is tachycardic in 140s, hypotensive and systolic blood pressure in mid 80s. Clinically appears very dehydrated, an NG tube was placed with approximately 3 L of some coffee-ground output. ABG shows a base excess of -10 and bicarbonate 12. I have ordered 4 liter normal saline boluses start 1 amp of bicarbonate, discontinued the LR infusion, and started bicarb gtt. Discontinue ciprofloxacin, started Zosyn every 6 hours, vancomycin 1 g 1. His elevated lactic acid and bandemia most likely secondary to severe sepsis, ileus, and severe dehydration. Serial lactate is ordered SUBJ 06/19: Lactic acid remains elevated at 6.6 despite getting 9 L of crystalloid boluses in last 24 hours. Tachycardia has improved heart rate in 110s. Remains on vasopressin at 0.04 units/min. Urine output almost 1200 mL overnight, OGT initial output was almost 3 L when placed yesterday a.m. Overnight had 550 mL of greenish brown fluid output. EGD pending today rule out gastric ischemia per Dr. Romero. Apparently Flex sig was negative post op in Dr. Geiger's office 06/20: Developed A. fib with RVR. Heart rate 200. Hemodynamically unstable, synchronized cardioversion attempted by Dr. Morales 100 200 J. Given 3 g mag sulfate and 80 mEq KCl 1, 0.5 digoxin 1 and started on amiodarone and Giorgio- Synephrine. Intubated due to hemodynamic instability. Currently remains sedated. Currently on Giorgio-Synephrine 80 mcg/m, and amiodarone. CT chest abdomen pelvis again confirms gastric and small bowel distention/ileus. UO 1800 ml in 24 hours 06/21: Remains critically ill, intubated sedated, on 100 mcg/min neosynpehrine. HR better controlled. NG output 1500, UO >1.4L. Am labs pending. Ileostomy sample positive for C Diff on PO vanc IV Flagyl. 06/22: Remains intubated sedated. Urine output 3000 mL with Bumex. NGT [address] Geiger did colonoscopy which was normal. Ileoscopy showed pseudomembranous colitis. Currently on 200 mcg/min of neosynephrine. Afib with RVR HR in 140's 06/23: Remains intubated sedated, remains in atrial fibrillation with RVR. Still requiring high doses of Giorgio-Synephrine at 190 mcg/min. UO 2.5L. chest x- ray showed bilateral large effusions. KUB shows improving small bowel distention. WBC count is slightly improved 06/24: Unable to control HR. Repeat shock x3 today. remains in atrial fibrillation with RVR rates 160-170 intermittently. Remains on amiodarone but will discontinued due to elevation of liver enzymes AST 546 ALT 158. (GI notified). Start Cardizem infusion and also give Surjit 0.5 mg 1. Platelet count continues to drop from 67 to today 45. Hematology following will start of Argatroban today. Creatinine has slightly increased to 1.3 to will DC Bumex infusion Objective Vital Signs Date Time Temp Pulse Resp B/P (MAP) Pulse Ox O2 Delivery O2 Flow Rate FiO2 06/24/17 13:00 169 70 104/75 (85) 99 87/56 (66) 06/24/17 12:03 60 06/24/17 12:00 98.8 06/22/17 07:00 Mechanical Ventilator Nasal Cannula Simple Mask Intake and Output 06/24/17 06/24/17 06/25/17 08:00 16:00 00:00 Intake Total 1126 ml 176 ml Output Total 1250 ml Balance -124 ml 176 ml Result Diagram: 06/24/17 0618 06/24/17 0618 Other Results Laboratory Tests Test 06/24/17 05:37 Blood Gas Puncture Site ART LINE Blood Gas Patient Temperature 98.6 Blood Gas HCO3 24 mmol/L (22-26) Blood Gas Base Excess 0.6 mmol/L (-2-2) Blood Gas Oxygen Saturation 98 % (90-100) Arterial Blood pH 7.47 (7.380-7.420) Arterial Blood Partial Pressure CO2 33 mmHg (38-42) Arterial Blood Partial Pressure O2 303 mmHg (61-120) Arterial Blood Oxygen Content 17.6 Vol % (12.0-20.0) Arterial Blood Carboxyhemoglobin 1.0 % (0-4) Arterial Blood Methemoglobin 1.1 % (0-2) Blood Gas Hemoglobin 12.3 G/DL (12.0-16.0) Oxygen Delivery Device VENTILATOR Blood Gas Ventilator Setting AC16/600/5PEEP Blood Gas Inspired Oxygen 100 % Imaging CT abdomen pelvis shows distal small bowel dilatation Chest x-ray no acute findings KUB shows ileus Objective Remarks Infusions: Amiodarone Giorgio-Synephrine IV heparin-DCd Starting Argatroban today Propofol TPN GENERAL: Well-developed and well-nourished male intubated sedated SKIN: Warm and dry. HEENT: Extraocular muscles intact. NECK: The neck is supple. LIJ central line in place CHEST:Few coarse rhonchi Equal bilaterally. CVS: Afib RVR. HR 140-160. No murmurs ABDOMEN: Abdomen is distended, soft. Incision appears healing well. Ileostomy is functioning well. NGT output decreasing EXTREMITIES: No pedal edema or cyanosis NEURO: Intubated heavily sedated. Moves all extremities, not following commands today. A/P Assessment and Plan ASSESSMENT Septic shock C Diff enteritis/ileitis Acute hypoxemic respiratory failure Atrial fibrillation with RVR Acute kidney injury Transaminitis Ileus Lactic acidemia Probable UTI s/p Left colectomy with colorectal anastomosis, diverting ileostomy, wedge resection of liver metastasis s/p Partial resection of the left ureter with anastomosis and placement of double-J stent Hypertension Tobacco abuse Hypokalemia, hypomagnesemia PLAN: NEURO: - Versed for sedation and vent synchrony - No sedation vacation due to hemodynamic instability RESP: - ACV PEEP 5. FiO2 40%. - DuoNeb q6hr and PRN, vent bundle - Not stable for SBT CV: - Giorgio-Synephrine to keep map above 65, currently turned off - Cardioverted 2 without success and amiodarone started for A. fib with RVR - Cardioversion attempted again times 3 on 06/23/17 without success - Discontinue amiodarone secondary to transaminitis, Cardizem infusion started. Digoxin 0.5 mg IV 1 - IV Heparin held due to thrombocytopenia. Hit screen positive hematology consulted. Starting of Ativan today - s/p Normal saline IV fluids 8L boluses on 06/18/17, No IVF now except TPN - Bumex infusion at 0.25 mg per hour 06/23/17-DC due to increase in creat - 2D Echo normal LV function GI: - NPO, Protonix gtt, TPN - Transaminitis today most likely secondary to amiodarone and TPN - Gastroenterology Dr. Saldana. EGD 06/19. Evidence of esophagitis, and erythematous gastritis in the gastric body and gastric antrum - C Diff positive from ileostomy sample indicating C Diff enteritis. On PO vanc and IV Flagyl - D/W Dr. Tran 06/22. Colonoscopy normal. Ileoscopy severe pseudomembranous ileitis - IV Reglan [address] Prev CT abdomen pelvis and KUB shows small bowel ileus., KUB 06/23 improving ileus - Continue Entereg : - Monitor renal function closely. Han catheter. UO adequate - IV Bumex discontinued due to creatinine elevation ID: - DCd IV Zosyn, repeat urine cx negative. ID Dr. Espinoza - PO Vancomycin and IV Flagyl for C diff enteritis - F/u blood and urine culture HEME: Thrombocytopenia, hit screen positive - Monitor CBC, CMP - HIT positive- consulted hematology - Started Ativan today ENDO: - Electrolyte replacement per protocol - Aggressive K and Mag replacement PROPH: -Bilateral lower extremity SCDs. IV Argatroban, IV Protonix 40 q12 LINES: - Left IJ central line placed CC time 40 min discontinuously and excluding procedures Critically ill and hemodynamically unstable currently on amiodarone for A. fib and Giorgio-Synephrine to maintain blood pressure. updated Shiva Segovia MD Jun 24, 2017 13:52
[2017-06-24] MEDS ORDERED: DIGOXIN 0.5 MG/2 ML VIAL IV PUSH ONE (14:00)
[2017-06-24] MEDS ORDERED: DILTIAZEM HCL 25 MG/5 ML VIAL IV PUSH ONE (14:00)
--- NOTE | 2017-06-24 14:22 | HHI.GIFU ---
Subjective Remarks Reconsulted for elevated liver enzymes. Pt is sedated on ventilator. He is NPO receiving TPN (started 06/19), started on amiodarone (started 06/19). LFTs were normal on 06/19. The AST went to 42 on 06/22 and 129 on 06/23. Today, these spiked T. Bili 1.3, AST 546, ALT 158, Alk Phosph 197. Of note he has atrial fibrillation with RVR, HR 160's. Not on vasopressors. No significant hypotensive episodes. (Tami Sanderson) Objective Vitals I&O Vital Signs Date Time Temp Pulse Resp B/P (MAP) Pulse Ox O2 Delivery O2 Flow Rate FiO2 06/24/17 13:00 169 70 104/75 (85) 99 87/56 (66) 06/24/17 12:03 98 60 06/24/17 12:00 50 06/24/17 12:00 154 06/24/17 12:00 98.8 154 69 111/72 (85) 100 86/56 (66) 06/24/17 11:00 170 65 115/57 (76) 99 86/56 (66) 06/24/17 10:00 166 06/24/17 10:00 166 44 114/66 (82) 100 102/66 (78) 06/24/17 09:00 165 68 142/60 (87) 99 86/59 (68) 06/24/17 08:00 50 06/24/17 08:00 146 06/24/17 08:00 99.2 146 65 115/74 (88) 100 95/65 (75) 06/24/17 07:58 100 100 06/24/17 07:50 149 119/72 06/24/17 07:00 146 63 135/78 (97) 100 106/67 (80) 06/24/17 06:00 161 65 122/86 (98) 100 110/70 (83) 06/24/17 06:00 161 06/24/17 05:30 154 06/24/17 05:30 154 62 142/101 (115) 100 112/71 (85) 06/24/17 05:00 155 66 133/104 (114) 100 90/62 (71) 06/24/17 05:00 155 06/24/17 04:32 100 100 06/24/17 04:00 99.9 171 66 141/78 (99) 100 95/60 (72) 06/24/17 04:00 171 06/24/17 03:30 158 66 133/75 (94) 100 98/59 (72) 06/24/17 03:30 158 06/24/17 03:00 162 67 112/91 (98) 99 78/63 (68) 06/24/17 03:00 162 06/24/17 02:30 177 68 135/87 (103) 96 119/77 (91) 06/24/17 02:30 177 06/24/17 02:00 168 72 114/80 (91) 98 113/69 (84) 06/24/17 02:00 168 06/24/17 01:30 169 64 120/72 (88) 99 111/68 (82) 06/24/17 01:30 169 06/24/17 01:04 168 06/24/17 01:04 168 67 121/90 (100) 98 79/60 (66) 06/24/17 01:00 171 72 188/85 (119) 98 88/60 (69) 06/24/17 01:00 171 06/24/17 00:52 99 40 06/24/17 00:32 164 112/71 06/24/17 00:30 164 06/24/17 00:30 164 77 172/96 (121) 97 77/59 (65) 06/24/17 00:00 158 06/24/17 00:00 158 67 135/80 (98) 100 112/71 (85) 06/23/17 22:00 147 06/23/17 21:49 151 115/65 06/23/17 21:07 100 40 06/23/17 20:00 100.8 133 65 114/60 (78) 100 88/54 (65) 06/23/17 20:00 133 06/23/17 18:00 158 06/23/17 18:00 158 61 122/75 (91) 98 119/64 (82) 06/23/17 17:26 98 40 06/23/17 17:00 116 58 105/68 (80) 99 87/82 (84) 06/23/17 16:00 151 06/23/17 16:00 99.4 151 57 111/68 (82) 98 94/89 (91) 06/23/17 15:51 144 113/67 06/23/17 15:00 159 58 153/86 (108) 98 91/87 (88) 06/23/17 15:00 159 I/O 06/23/17 06/23/17 06/23/17 06/24/17 06/24/17 06/24/17 07:00 15:00 23:00 07:00 15:00 23:00 Intake Total 1502 ml 572 ml 2088 ml 950 ml 352 ml Output Total 2260 ml 1800 ml 1250 ml Balance -758 ml 572 ml 288 ml -300 ml 352 ml IV Total 1502 ml 572 ml 1354 ml 950 ml 352 ml TPN/PPN 612 ml Lipid 122 ml Output Urine Total 1640 ml 1000 ml 1250 ml Stool Total 620 ml 800 ml Laboratory Laboratory Tests Test 06/23/17 18:50 06/24/17 05:37 06/24/17 06:18 06/24/17 10:15 Fibrinogen 514 Blood Gas Puncture Site ART LINE Blood Gas Patient Temperature 98.6 Blood Gas HCO3 24 Blood Gas Base Excess 0.6 Blood Gas Oxygen Saturation 98 Arterial Blood pH 7.47 Arterial Blood Partial Pressure CO2 33 Arterial Blood Partial Pressure O2 303 Arterial Blood Oxygen Content 17.6 Arterial Blood Carboxyhemoglobin 1.0 Arterial Blood Methemoglobin 1.1 Blood Gas Hemoglobin 12.3 Oxygen Delivery Device VENTILATOR Blood Gas Ventilator Setting AC16/600/5PEEP Blood Gas Inspired Oxygen 100 White Blood Count 13.3 Red Blood Count 4.50 Hemoglobin 12.7 Hematocrit 37.4 Mean Corpuscular Volume 83.1 Mean Corpuscular Hemoglobin 28.2 Mean Corpuscular Hemoglobin Concent 33.9 Red Cell Distribution Width 15.6 Platelet Count 45 Mean Platelet Volume 9.4 Neutrophils (%) (Auto) 85.6 Lymphocytes (%) (Auto) 7.1 Monocytes (%) (Auto) 5.7 Eosinophils (%) (Auto) 0.5 Basophils (%) (Auto) 1.1 Neutrophils # (Auto) 11.4 Lymphocytes # (Auto) 0.9 Monocytes # (Auto) 0.8 Eosinophils # (Auto) 0.1 Basophils # (Auto) 0.2 CBC Comment AUTO DIFF Differential Total Cells Counted 100 Neutrophils % (Manual) 58 Band Neutrophils % 8 Lymphocytes % 15 Monocytes % 2 Neutrophils # (Manual) 11.0 Metamyelocytes 8 Myelocytes 6 Promyelocytes 3 Nucleated Red Blood Cells 2 Differential Comment FINAL DIFF MANUAL Toxic Granulation 1+ Toxic Vacuolation PRESENT Platelet Estimate LOW Platelet Morphology Comment NORMAL Blood Urea Nitrogen 29 Creatinine 1.32 Random Glucose 126 Total Protein 5.1 Albumin 1.9 Calcium Level 7.3 Magnesium Level 2.4 Alkaline Phosphatase 197 Aspartate Amino Transf (AST/SGOT) 546 Alanine Aminotransferase (ALT/SGPT) 158 Total Bilirubin 1.3 Sodium Level 131 Potassium Level 3.7 Chloride Level 96 Carbon Dioxide Level 26.4 Anion Gap 9 Estimat Glomerular Filtration Rate 54 Protein Corrected Calcium 8.4 Activated Partial Thromboplast Time 56.2 Date/Time Source Procedure Growth Status 06/20/17 17:11 Blood Peripheral Aerobic Blood Culture - Preliminary NO GROWTH IN 4 DAYS Resulted 06/20/17 17:11 Blood Peripheral Anaerobic Blood Culture - Preliminary NO GROWTH IN 4 DAYS Resulted 06/20/17 15:50 Urine Catheterized Urine Urine Culture - Final NO GROWTH IN 48 HOURS. Complete Imaging Last Impressions Upper Extremity Ultrasound 06/23/17 Signed Impressions: Service Date/Time: June 20:03 - CONCLUSION: Noncompressibility right cephalic vein and left basilic vein consistent with venous thrombosis Trav Hsieh MD Lower Extremity Ultrasound 06/23/17 Signed Impressions: Service Date/Time: June 20:16 - CONCLUSION: Normal examination. No evidence DVT Trav Hsieh MD Chest X-Ray 06/23/17 Signed Impressions: Service Date/Time: June 16:19 - CONCLUSION: 1. Persistent left basilar opacity representing pleural effusion with associated volume loss and/or consolidation. The effusion is slightly smaller. 2. Persistent atelectasis at the right lung base. Luca Torres MD Abdomen X-Ray 06/23/17 Signed Impressions: Service Date/Time: June 08:08 - CONCLUSION: Improving bowel gas pattern compared to the prior study. The NG tube is in good position in the stomach. Krzysztof Cruz MD Chest CT 06/20/17 Signed Impressions: Service Date/Time: Tuesday, June 20, 2017 07:42 - CONCLUSION: 1. Bilateral effusions and consolidative changes in both lung bases. Bao Lora MD Abdomen/Pelvis CT 06/20/17 0000 Signed Impressions: Service Date/Time: Tuesday, June 20, 2017 07:39 - CONCLUSION: 1. Dilated stomach and multiple dilated loops of small bowel, likely ileus. 2. No definite gastric volvulus. 3. Fat containing right inguinal hernia which also contains small portion of the urinary bladder and minimal fluid. 4. Left-sided nephroureteral stent in good position. 5. Bibasilar consolidation and small pleural effusions. Sarwat Suarez MD Physical Exam HEENT: Normocephalic; atraumatic; no jaundice. CHEST: OETT to vent. Course breath sounds. CARDIAC: Irregular, HR 160's. Afib on monitor. B/P stable. ABDOMEN: Soft, distended, ileostomy with small liquid in ostomy bag EXTREMITIES: No clubbing, cyanosis, or edema. SKIN: Normal; no rash; no jaundice. 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 Receiving TPN (started 06/19), started on amiodarone (started 06/19). LFTs were normal on 06/19. The AST went to 42 on 06/22 and 129 on 06/23. Today, these spiked T. Bili 1.3, AST 546, ALT 158, Alk Phosph 197. Of note he has atrial fibrillation with RVR, HR 160's. Not on vasopressors. No significant hypotensive episodes. Will get RUQ US and liver workup, but most likely, his LFT derangement is secondary to medications (suspect possibly combination of tpn and amiodarone), sepsis, and perhaps some congestive hepatopathy related to Afib with RVR. Amiodarone is being discontinued. Agree with this and monitoring LFTs to see if they improve. Recommend enteral feedings when able to from CRS standpoint. - Severe sepsis with lactic acidosis with concern for possible bowel ischemia, CDifficile. Pt presented to ER with abdominal pain, n/v, generalized weakness. CT scan abdomen and pelvis with IV contrast (06/17/17)---> Dilatation of the distal small bowel when compared to proximal. Minimal colonic gas is evidence. Zone of transition appears to be in the right lower quadrant. I can see the transition but not etiology for such. BCx no growth 1 day, Urine cx 50-100,000 CFU/mL mixed mark. GI consulted for egd/ileoscopy to evaluate for bowel ischemia. S/P EGD/Colonoscopy (06/19/17)----> 1. There was LA Class B esophagitis noted 2. There was erythematous gastritis in the gastric body and gastric antrum; 2. 400cc of fluid suctioned from the stomach. ? gastric volvulus 3. Retroflexed views revealed no abnormalities Abnormal small bowel mucosa to 15cm. Pseudomembranous illeitis. ? ischemia. Pathology duodenal mucosa without significant histologic abnormality. moderate chronic gastritis and associated reactive epithelial changes. Negaive for helicobacter pylori, acute enteritis with features of ulceration. CDiff PCR (+) Epid 027 (-). ID following. CT scan abdomen and pelvis without contrast (06/20/17)---> dilated stomach and multiple dilated loops of small bowel, likely ileus. No definite gastric volvulus. Fat containing right ingional hernia which also contains small portion of the urinary bladder and minimal fluid. Left sided nephroureteral stent in good position. bibasilar consolidation and small pleural effusions. S/P Colonoscopy and ileoscopy (06/22/17)----> normal colonoscopy with ileal pseudomembranous colitis. ID is following. Flagyl, Oral Vanco, Vanco enemas via ileostomy. - CDiff. Vanco enemas via ileostomy/Oral vanco/Flagyl. ID following - PSBO/?Gastric volvulus. ? Volvulus on egd. Upper gi series ordered, d/c'd by CRS. CT scan abdomen and pelvis without contrast (06/20/17)---> dilated stomach and multiple dilated loops of small bowel, likely ileus. No definite gastric volvulus. Fat containing right ingional hernia which also contains small portion of the urinary bladder and minimal fluid. Left sided nephroureteral stent in good position. bibasilar consolidation and small pleural effusions. KUB (06/20/17)--> Nasogastric tube distal tip is in the gastric cardia region likely just beyond the GE junction. However, sentinel hole is in the distal esophagus, suggest advancement. Abnormally dilated small bowel obstruction. NGT to LIWS. TPN - Respiratory failure. Vent per CCM - NEIL. Creat. 1.32 - Anemia. S/P 1 unit prbc. 12.7/37.4 - Atrial fibrillation with RVR. Was started on amiodarone, but this is being changed to cardizem because his heart rate remains in 160 and he has elevated LFTs. - Metastatic colon cancer. S/P lower anterior resection/coloanal anastomosis, resection and reanastomosis of the left ureter with ureteral anastomosis and double-J stent placement, wedge resection of hepatic metastasis, mobilization of the splenic flexure, and diverting closed loop ileostomy with Dr. Geiger and Dr. Pelayo on 05/26/17. Dr. Noel is his oncologist, but he has not seen him since his surgery PLAN: - NPO - NGT to LIWS - Cont. TPN for now - RUQ US - Liver workup - Abx per ID recommendations, Vanco enemas, Oral Vanco, Flagyl - Cont. PPI - Monitor labs - Supportive care - Avoid hepatotoxins - His elevated LFTs are likely secondary to medications (suspect possibly combination of tpn and amiodarone), sepsis, and perhaps some congestive hepatopathy related to Afib with RVR. Amiodarone is being discontinued. Agree with this and monitoring LFTs to see if they improve. - Further recommendations to follow based on results of above - Pt seen and examined by Dr. Guaman and myself and this note is written on his behalf (Tami Sanderson) Physician Comments Patient seen and examined Agree with above Continue with current supportive care Monitor labs (Brijesh Guaman MD) Tami Sanderson Jun 24, 2017 14:22 Brijesh Guaman MD Jun 24, 2017 20:37
[2017-06-24] MEDS: DILTIAZEM INJ 125 MG in SODIUM CHLORIDE 0.9% INJ 100 ML IV PRN ×2 (14:37→23:12)
--- NOTE | 2017-06-24 14:41 | HHI.IDPN ---
Note Infectious Disease Note Patient on vent. 50%FIO2. Sedated. Low grade fever. Off Neosynephrine. No significant sputum suctioned. Afib. D/C with RN and . Admitted to the hospital with weakness, abdominal pain and nausea. The patient is status post anterior resection of colon and rectal areas and anastomosis along with a diverting ileostomy and also resection of a segment of left ureter with ureteral anastomosis and double-J stent placement three weeks prior. PAST MEDICAL HISTORY: 1. Hypertension. 2. Left knee surgery. 3. Metastatic colon cancer status post resection and coloanal anastomosis and also resection and re-anastomosis of the left ureter with double-J stent placement. ALLERGIES: 1. CODEINE. MEDICATIONS: 1. Metronidazole. 2. PO Vancomycin. SOCIAL HISTORY: . Positive tobacco use. No alcohol. No illicit drug use. OBJECTIVE: Vital Signs Date Time Temp Pulse Resp B/P (MAP) Pulse Ox O2 Delivery O2 Flow Rate FiO2 06/24/17 13:00 169 70 104/75 (85) 99 87/56 (66) 06/24/17 12:03 98 60 06/24/17 12:00 50 06/24/17 12:00 154 06/24/17 12:00 98.8 154 69 111/72 (85) 100 86/56 (66) 06/24/17 11:00 170 65 115/57 (76) 99 86/56 (66) 06/24/17 10:00 166 06/24/17 10:00 166 44 114/66 (82) 100 102/66 (78) 06/24/17 09:00 165 68 142/60 (87) 99 86/59 (68) 06/24/17 08:00 50 06/24/17 08:00 146 06/24/17 08:00 99.2 146 65 115/74 (88) 100 95/65 (75) 06/24/17 07:58 100 100 06/24/17 07:50 149 119/72 06/24/17 07:00 146 63 135/78 (97) 100 106/67 (80) 06/24/17 06:00 161 65 122/86 (98) 100 110/70 (83) 06/24/17 06:00 161 06/24/17 05:30 154 06/24/17 05:30 154 62 142/101 (115) 100 112/71 (85) 06/24/17 05:00 155 66 133/104 (114) 100 90/62 (71) 06/24/17 05:00 155 06/24/17 04:32 100 100 06/24/17 04:00 99.9 171 66 141/78 (99) 100 95/60 (72) 06/24/17 04:00 171 06/24/17 03:30 158 66 133/75 (94) 100 98/59 (72) 06/24/17 03:30 158 06/24/17 03:00 162 67 112/91 (98) 99 78/63 (68) 06/24/17 03:00 162 06/24/17 02:30 177 68 135/87 (103) 96 119/77 (91) 06/24/17 02:30 177 06/24/17 02:00 168 72 114/80 (91) 98 113/69 (84) 06/24/17 02:00 168 06/24/17 01:30 169 64 120/72 (88) 99 111/68 (82) 06/24/17 01:30 169 06/24/17 01:04 168 06/24/17 01:04 168 67 121/90 (100) 98 79/60 (66) 06/24/17 01:00 171 72 188/85 (119) 98 88/60 (69) 06/24/17 01:00 171 06/24/17 00:52 99 40 06/24/17 00:32 164 112/71 06/24/17 00:30 164 06/24/17 00:30 164 77 172/96 (121) 97 77/59 (65) 06/24/17 00:00 158 06/24/17 00:00 158 67 135/80 (98) 100 112/71 (85) 06/23/17 22:00 147 06/23/17 21:49 151 115/65 06/23/17 21:07 100 40 06/23/17 20:00 100.8 133 65 114/60 (78) 100 88/54 (65) 06/23/17 20:00 133 06/23/17 18:00 158 06/23/17 18:00 158 61 122/75 (91) 98 119/64 (82) 06/23/17 17:26 98 40 06/23/17 17:00 116 58 105/68 (80) 99 87/82 (84) 06/23/17 16:00 151 06/23/17 16:00 99.4 151 57 111/68 (82) 98 94/89 (91) 06/23/17 15:51 144 113/67 06/23/17 15:00 159 58 153/86 (108) 98 91/87 (88) 06/23/17 15:00 159 Laboratory Tests Test 06/23/17 06:59 06/24/17 06:18 White Blood Count 16.4 TH/MM3 13.3 TH/MM3 Red Blood Count 4.56 MIL/MM3 4.50 MIL/MM3 Hemoglobin 12.6 GM/DL 12.7 GM/DL Hematocrit 38.4 % 37.4 % Mean Corpuscular Volume 84.1 FL 83.1 FL Mean Corpuscular Hemoglobin 27.6 PG 28.2 PG Mean Corpuscular Hemoglobin Concent 32.9 % 33.9 % Red Cell Distribution Width 16.0 % 15.6 % Platelet Count 67 TH/MM3 45 TH/MM3 Mean Platelet Volume 9.1 FL 9.4 FL Neutrophils (%) (Auto) 85.6 % Lymphocytes (%) (Auto) 7.1 % Monocytes (%) (Auto) 5.7 % Eosinophils (%) (Auto) 0.5 % Basophils (%) (Auto) 1.1 % Neutrophils # (Auto) 11.4 TH/MM3 Lymphocytes # (Auto) 0.9 TH/MM3 Monocytes # (Auto) 0.8 TH/MM3 Eosinophils # (Auto) 0.1 TH/MM3 Basophils # (Auto) 0.2 TH/MM3 CBC Comment AUTO DIFF Differential Total Cells Counted 100 Neutrophils % (Manual) 58 % Band Neutrophils % 8 % Lymphocytes % 15 % Monocytes % 2 % Neutrophils # (Manual) 11.0 TH/MM3 Metamyelocytes 8 % Myelocytes 6 % Promyelocytes 3 % Nucleated Red Blood Cells 2 /100 WBC Differential Comment FINAL DIFF MANUAL Toxic Granulation 1+ Toxic Vacuolation PRESENT Platelet Estimate LOW Platelet Morphology Comment NORMAL Microbiology Date/Time Source Procedure Growth Status 06/20/17 17:11 Blood Peripheral Aerobic Blood Culture - Preliminary NO GROWTH IN 3 DAYS Resulted 06/20/17 17:11 Blood Peripheral Anaerobic Blood Culture - Preliminary NO GROWTH IN 3 DAYS Resulted 06/20/17 17:02 Blood Peripheral Aerobic Blood Culture - Preliminary NO GROWTH IN 3 DAYS Resulted 06/20/17 17:02 Blood Peripheral Anaerobic Blood Culture - Preliminary NO GROWTH IN 3 DAYS Resulted 06/20/17 15:50 Urine Catheterized Urine Urine Culture - Final NO GROWTH IN 48 HOURS. Complete IMAGING: Upper Extremity Ultrasound 06/23/17 0000 Signed Impressions: Service Date/Time: June 20:03 - CONCLUSION: Noncompressibility right cephalic vein and left basilic vein consistent with venous thrombosis Trav Hsieh MD Lower Extremity Ultrasound 06/23/17 0000 Signed Impressions: Service Date/Time: June 20:16 - CONCLUSION: Normal examination. No evidence DVT Trav Hsieh MD Chest X-Ray 06/23/17 0000 Signed Impressions: Service Date/Time: June 16:19 - CONCLUSION: 1. Persistent left basilar opacity representing pleural effusion with associated volume loss and/or consolidation. The effusion is slightly smaller. 2. Persistent atelectasis at the right lung base. Luca Torres MD Chest X-Ray 06/23/17 0000 Signed Impressions: Service Date/Time: June 08:47 - CONCLUSION: 1. Stable chest x-ray with moderate side left pleural effusion with associated volume loss and/or consolidation. 2. Stable right basilar opacity representing either atelectasis, consolidation, or small effusion. Luca Torres MD Abdomen X-Ray 06/23/17 0000 Signed Impressions: Service Date/Time: June 08:08 - CONCLUSION: Improving bowel gas pattern compared to the prior study. The NG tube is in good position in the stomach. Krzysztof Cruz MD Chest X-Ray 06/21/17 0600 Signed Impressions: Service Date/Time: Wednesday, June 21, 2017 04:13 - CONCLUSION: 1. Cardiomegaly and findings of vascular congestion without overt failure. 2. Left lower lobe atelectasis versus pneumonia. Small left effusion Eddie Saucedo MD Abdomen X-Ray 06/21/17 0000 Signed Impressions: Service Date/Time: Wednesday, June 21, 2017 09:12 - CONCLUSION: Worsening dilatation of the small bowel. Tip of the NG tube in the fundus of the stomach. Pierce Ospina Jr., MD Abdomen X-Ray 06/20/17 1023 Signed Impressions: Service Date/Time: Tuesday, June 20, 2017 10:46 - CONCLUSION: 1. Nasogastric tube distal tip is in the gastric cardia region likely just beyond the GE junction. However, sentinel hole is in the distal esophagus. Suggest advancement. 2. Abnormally dilated small bowel, unchanged from the earlier study and suspicious for small bowel obstruction. Luca Torres MD Chest X-Ray 06/20/17 0600 Signed Impressions: Service Date/Time: Tuesday, June 20, 2017 04:14 - CONCLUSION: 1. Cardiomegaly and findings of congestive heart failure. The findings have worsened when compared with the prior examination. Eddie Saucedo MD Chest X-Ray 06/20/17 0000 Signed Impressions: Service Date/Time: Tuesday, June 20, 2017 05:05 - CONCLUSION: 1. Endotracheal tube below the antolin. It should be retracted 3 cm Eddie Saucedo MD Chest CT 06/20/17 0000 Signed Impressions: Service Date/Time: Tuesday, June 20, 2017 07:42 - CONCLUSION: 1. Bilateral effusions and consolidative changes in both lung bases. Bao Lora MD Abdomen/Pelvis CT 06/20/17 0000 Signed Impressions: Service Date/Time: Tuesday, June 20, 2017 07:39 - CONCLUSION: 1. Dilated stomach and multiple dilated loops of small bowel, likely ileus. 2. No definite gastric volvulus. 3. Fat containing right inguinal hernia which also contains small portion of the urinary bladder and minimal fluid. 4. Left-sided nephroureteral stent in good position. 5. Bibasilar consolidation and small pleural effusions. Sarwat Suarez MD Chest X-Ray 06/19/17 0000 Signed Impressions: Service Date/Time: Monday, June 19, 2017 07:17 - CONCLUSION: Bibasilar atelectasis. Otherwise, no significant changes. Krzysztof Cruz MD Abdomen X-Ray 06/19/17 0000 Signed Impressions: Service Date/Time: Monday, June 19, 2017 07:22 - CONCLUSION: There continues to be multiple dilated loops of small bowel throughout the abdomen. The dilatation appears to be mildly increased compared to the prior examination. Finding suggest a distal small bowel obstruction versus ileus. Krzysztof Cruz MD PHYSICAL EXAMINATION: GENERAL: No acute distress. On the vent. HEAD, EYES, EARS, NOSE, THROAT: No icterus. Oropharynx with dry mucosa. NECK: The neck is supple. LUNGS: Decreased breath sounds. HEART: Regular S1-S2 without murmurs, rubs or gallops. ABDOMEN: Diminished bowel sounds. Soft. Colostomy tube in the right abdomen. EXTREMITIES: No clubbing or cyanosis or edema. The distal extremities are warm. SKIN: No rash. NEUROLOGIC: Nonfocal. IMPRESSION: 1. Bandemia in a patient with lactic acidosis. The patient is status post recent surgery for rectal cancer and recent ureteral resection and double J ureteral stent. Probable severe sepsis based on parameters including hypotension. 2. C difficile colitis. Pseudomembraneous enteritis. 3. Acute respiratory failure. 4. Abnormal CXR - probable atelectasis. 5. Leukocytosis better. RECOMMENDATIONS: 1. Continue Flagyl. 2. Continue PO Vancomycin. 3. Follow the blood cultures. 4. Monitor the white blood cell count and temperature. Want to avoid unnecessary additional antibiotics if possible. El Espinoza MD Jun 24, 2017 14:41
[2017-06-24 15:48] LABS: APTT (PATIENT) 76.9 SEC (24.3-30.1)
--- NOTE | 2017-06-24 15:50 | PD.CONS ---
HPI Consult Requested By Primary Care Physician Non-Staff History of Present Illness 67-year-old male with past medical history of hypertension, metastatic colon cancer, tobacco abuse, s/p complicated GI surgery admitted with 5 day history of abdominal discomfort and increasing weakness. During the course of the hospitalization he has been having sepsis, dehydration, small bowel distension, thrombocytopenia and new onset atrial fibrillation which has been very difficult to control with various attempted cardioversions due to hemodynamic compromise. Cardiology consulted for Afib evaluation. On amiodarone but this needed to be discontinue due to elevation of liver enzymes. Review of Systems ROS Limitations: Intubated Past Family Social History Allergies: Coded Allergies: codeine (Verified Adverse Reaction, Severe, Nausea/Vomiting, 05/26/17) Past Medical History Hypertension Colon cancer Past Surgical History Left knee surgery Left colectomy with coloanal anastomosis and diverting ileostomy Wedge resection of liver metastasis Partial resection of the left ureter with anastomosis and placement of double-J stent Reported Medications Reported Meds & Active Scripts Active Reported Lortab (Hydrocodone-Acetaminophen) 5-325 Mg Tab 1 Tab PO Q4-6H PRN Viibryd (Vilazodone) 40 Mg Tab 40 Mg PO HS Tamsulosin (Tamsulosin HCl) 0.4 Mg Cap 0.4 Mg PO HS Metoprolol Tartrate 50 Mg Tab 50 Mg PO BID Active Ordered Medications Current Medications Medications (Trade) Dose Ordered Sig/[place] Route Start Time Stop Time Status Last Admin (Capulin 5-325 Mg) 1 tab Q4H PRN PO 06/17/17 22:00 06/17/17 22:02 (Capulin 5-325 Mg) 2 tab Q4H PRN PO 06/17/17 22:00 06/21/17 20:40 (Zofran Inj) 4 mg Q4H PRN IV PUSH 06/17/17 22:00 06/18/17 09:45 Miscellaneous Information Patient in critical care unit? Ass... [id number] .XX 06/18/17 05:45 06/18/17 05:45 Vasopressin 40 units/Dextrose 100 ml @ 6 mls/hr [id number] IV 06/18/17 15:29 06/19/17 08:09 (Reglan Inj) 5 mg Q8H IV PUSH 06/18/17 17:00 06/24/17 07:53 (Brethine Inj) 1 mg UNSCH PRN SQ 06/18/17 17:15 Potassium Chloride 100 ml @ 50 mls/hr Q2H PRN IV 06/19/17 07:45 06/21/17 03:31 Potassium Chloride 100 ml @ 50 mls/hr Q2H PRN IV 06/19/17 07:45 (K-Lyte Cl Eff) 50 meq UNSCH PRN PO 06/19/17 07:45 Potassium Chloride 100 ml @ 25 mls/hr UNSCH PRN IV 06/19/17 07:45 Potassium Chloride 100 ml @ 50 mls/hr Q2H PRN IV 06/19/17 07:45 06/22/17 17:22 Magnesium Sulfate 4 gm/Sodium Chloride 100 ml @ 50 mls/hr UNSCH PRN IV 06/19/17 07:45 (Mag-Ox) 800 mg UNSCH PRN PO 06/19/17 07:45 Magnesium Sulfate 2 gm/Sodium Chloride 100 ml @ 50 mls/hr UNSCH PRN IV 06/19/17 07:45 (K-Phos) 2,000 mg Q4H PRN PO 06/19/17 07:45 Sodium Phosphate 30 mmol/Sodium Chloride 250 ml @ 42 mls/hr UNSCH PRN IV 06/19/17 07:45 06/20/17 17:06 (K-Phos) 2,000 mg UNSCH PRN PO/TUBE 06/19/17 07:45 Potassium Phosphate 30 mmol/ Sodium Chloride 260 ml @ 42 mls/hr UNSCH PRN IV 06/19/17 07:45 Fat Emulsion Intravenous 250 ml @ 10 mls/hr Q24H IV-CENTRAL 06/19/17 20:00 06/23/17 20:22 (NovoLOG SUPPLEMENTAL SCALE) 1 Q4HR SQ 06/19/17 12:00 06/21/17 20:34 Sodium Chloride 40 meq/Sodium Acetate 59 meq/ Potassium Chloride 40 meq/ Sodium Phosphate 40 meq/Magnesium Chloride 10 meq/ Calcium Chloride 9 meq/ Multivitamins 10 ml/Folic Acid 1 mg/Insulin Human Regular 40 units/ Amino Acids/ Dextrose 2,091.7937 ml @ 50 mls/hr Q24H IV-CENTRAL 06/19/17 20:00 06/23/17 20:40 (VANCOMYCIN for oral use only) 500 mg QID NG 06/19/17 18:00 06/24/17 12:42 Phenylephrine HCl 160 mg/Dextrose 500 ml @ 7.5 mls/hr TITRATE PRN IV 06/19/17 19:15 06/24/17 00:32 (Brethine Inj) 1 mg UNSCH PRN SQ 06/19/17 19:15 Amiodarone HCl 450 mg/Dextrose 250 ml @ 33.33 mls/ hr Q7H31M IV 06/19/17 19:15 06/23/17 21:49 (Peridex 0.12% Liq) 15 ml BID@08,20 MT 06/20/17 08:00 06/24/17 07:52 Metronidazole 100 ml @ 100 mls/hr Q8H IV 06/20/17 09:00 06/24/17 07:52 (Duoneb Neb) 1 ampule Q2HR NEB PRN NEB 06/20/17 09:15 (Tylenol 650 Mg/ 20 ml Liq) 650 mg Q6H PRN PO 06/20/17 16:30 06/23/17 03:57 (Protonix Inj) 40 mg Q12H IV PUSH 06/21/17 07:00 06/24/17 06:19 (Entereg) 12 mg Q12HR NG 06/22/17 12:00 06/24/17 07:53 Albumin Human 50 ml @ 60 mls/hr Q12H IV 06/22/17 15:00 06/24/17 14:15 Vancomycin HCl 250 mg/Sodium Chloride 102.5 ml @ 0 mls/hr TID IRRIGATION 06/23/17 13:00 06/24/17 12:42 Midazolam HCl 100 ml @ 2 mls/hr TITRATE PRN IV 06/23/17 16:15 06/24/17 03:20 Argatroban 250 mg/ Sodium Chloride 252.5 ml @ 7.72 mls/hr TITRATE PRN IV 06/24/17 12:00 06/24/17 12:43 Diltiazem HCl 125 mg/Sodium Chloride 125 ml @ 5 mls/hr TITRATE PRN IV 06/24/17 15:00 06/24/17 14:37 (Duoneb Neb) 1 ampule Q6HR NEB NEB 06/24/17 16:00 Family History No significant family history of CAD Social History Smokes one pack per day and has done so for 40 years. No alcohol or illicit drug use. Physical Exam Vital Signs Vital Signs Date Time Temp Pulse Resp B/P (MAP) Pulse Ox O2 Delivery O2 Flow Rate FiO2 06/24/17 15:00 128 06/24/17 14:37 146 125/67 06/24/17 14:00 160 06/24/17 13:00 169 70 104/75 (85) 99 87/56 (66) 06/24/17 12:03 98 60 06/24/17 12:00 50 06/24/17 12:00 154 06/24/17 12:00 98.8 154 69 111/72 (85) 100 86/56 (66) 06/24/17 11:00 170 65 115/57 (76) 99 86/56 (66) 06/24/17 10:00 166 06/24/17 10:00 166 44 114/66 (82) 100 102/66 (78) 06/24/17 09:00 165 68 142/60 (87) 99 86/59 (68) 06/24/17 08:00 50 06/24/17 08:00 146 06/24/17 08:00 99.2 146 65 115/74 (88) 100 95/65 (75) 06/24/17 07:58 100 100 06/24/17 07:50 149 119/72 06/24/17 07:00 146 63 135/78 (97) 100 106/67 (80) 06/24/17 06:00 161 65 122/86 (98) 100 110/70 (83) 06/24/17 06:00 161 06/24/17 05:30 154 06/24/17 05:30 154 62 142/101 (115) 100 112/71 (85) 06/24/17 05:00 155 66 133/104 (114) 100 90/62 (71) 06/24/17 05:00 155 06/24/17 04:32 100 100 06/24/17 04:00 99.9 171 66 141/78 (99) 100 95/60 (72) 06/24/17 04:00 171 06/24/17 03:30 158 66 133/75 (94) 100 98/59 (72) 06/24/17 03:30 158 06/24/17 03:00 162 67 112/91 (98) 99 78/63 (68) 06/24/17 03:00 162 06/24/17 02:30 177 68 135/87 (103) 96 119/77 (91) 06/24/17 02:30 177 06/24/17 02:00 168 72 114/80 (91) 98 113/69 (84) 06/24/17 02:00 168 06/24/17 01:30 169 64 120/72 (88) 99 111/68 (82) 06/24/17 01:30 169 06/24/17 01:04 168 06/24/17 01:04 168 67 121/90 (100) 98 79/60 (66) 06/24/17 01:00 171 72 188/85 (119) 98 88/60 (69) 06/24/17 01:00 171 06/24/17 00:52 99 40 06/24/17 00:32 164 112/71 06/24/17 00:30 164 06/24/17 00:30 164 77 172/96 (121) 97 77/59 (65) 06/24/17 00:00 158 06/24/17 00:00 158 67 135/80 (98) 100 112/71 (85) 06/23/17 22:00 147 06/23/17 21:49 151 115/65 06/23/17 21:07 100 40 06/23/17 20:00 100.8 133 65 114/60 (78) 100 88/54 (65) 06/23/17 20:00 133 06/23/17 18:00 158 06/23/17 18:00 158 61 122/75 (91) 98 119/64 (82) 06/23/17 17:26 98 40 06/23/17 17:00 116 58 105/68 (80) 99 87/82 (84) 06/23/17 16:00 151 06/23/17 16:00 99.4 151 57 111/68 (82) 98 94/89 (91) 06/23/17 15:51 144 113/67 Physical Exam GENERAL: Sedated, intubated, critically ill SKIN: Warm and dry. HEAD: Normocephalic. EYES: No scleral icterus. No injection or drainage. NECK: Supple, trachea midline. No JVD or lymphadenopathy. CARDIOVASCULAR: Tachycardic without murmurs, gallops, or rubs. RESPIRATORY: Vented. GASTROINTESTINAL: Abdomen soft, nondistended EXTREMITIES: No cyanosis, + edema. Laboratory Laboratory Tests Test 06/23/17 18:50 06/24/17 05:37 06/24/17 06:18 06/24/17 10:15 Fibrinogen 514 Blood Gas Puncture Site ART LINE Blood Gas Patient Temperature 98.6 Blood Gas HCO3 24 Blood Gas Base Excess 0.6 Blood Gas Oxygen Saturation 98 Arterial Blood pH 7.47 Arterial Blood Partial Pressure CO2 33 Arterial Blood Partial Pressure O2 303 Arterial Blood Oxygen Content 17.6 Arterial Blood Carboxyhemoglobin 1.0 Arterial Blood Methemoglobin 1.1 Blood Gas Hemoglobin 12.3 Oxygen Delivery Device VENTILATOR Blood Gas Ventilator Setting AC16/600/5PEEP Blood Gas Inspired Oxygen 100 White Blood Count 13.3 Red Blood Count 4.50 Hemoglobin 12.7 Hematocrit 37.4 Mean Corpuscular Volume 83.1 Mean Corpuscular Hemoglobin 28.2 Mean Corpuscular Hemoglobin Concent 33.9 Red Cell Distribution Width 15.6 Platelet Count 45 Mean Platelet Volume 9.4 Neutrophils (%) (Auto) 85.6 Lymphocytes (%) (Auto) 7.1 Monocytes (%) (Auto) 5.7 Eosinophils (%) (Auto) 0.5 Basophils (%) (Auto) 1.1 Neutrophils # (Auto) 11.4 Lymphocytes # (Auto) 0.9 Monocytes # (Auto) 0.8 Eosinophils # (Auto) 0.1 Basophils # (Auto) 0.2 CBC Comment AUTO DIFF Differential Total Cells Counted 100 Neutrophils % (Manual) 58 Band Neutrophils % 8 Lymphocytes % 15 Monocytes % 2 Neutrophils # (Manual) 11.0 Metamyelocytes 8 Myelocytes 6 Promyelocytes 3 Nucleated Red Blood Cells 2 Differential Comment FINAL DIFF MANUAL Toxic Granulation 1+ Toxic Vacuolation PRESENT Platelet Estimate LOW Platelet Morphology Comment NORMAL Blood Urea Nitrogen 29 Creatinine 1.32 Random Glucose 126 Total Protein 5.1 Albumin 1.9 Calcium Level 7.3 Magnesium Level 2.4 Alkaline Phosphatase 197 Aspartate Amino Transf (AST/SGOT) 546 Alanine Aminotransferase (ALT/SGPT) 158 Total Bilirubin 1.3 Sodium Level 131 Potassium Level 3.7 Chloride Level 96 Carbon Dioxide Level 26.4 Anion Gap 9 Estimat Glomerular Filtration Rate 54 Protein Corrected Calcium 8.4 Activated Partial Thromboplast Time 56.2 Test 06/24/17 15:00 Date/Time Source Procedure Growth Status 06/20/17 17:11 Blood Peripheral Aerobic Blood Culture - Preliminary NO GROWTH IN 4 DAYS Resulted 06/20/17 17:11 Blood Peripheral Anaerobic Blood Culture - Preliminary NO GROWTH IN 4 DAYS Resulted 06/20/17 15:50 Urine Catheterized Urine Urine Culture - Final NO GROWTH IN 48 HOURS. Complete Result Diagram: 06/24/17 0618 06/24/17 0618 Imaging Last Impressions Upper Extremity Ultrasound 06/23/17 0000 Signed Impressions: Service Date/Time: June 20:03 - CONCLUSION: Noncompressibility right cephalic vein and left basilic vein consistent with venous thrombosis Trav Hsieh MD Lower Extremity Ultrasound 06/23/17 0000 Signed Impressions: Service Date/Time: June 20:16 - CONCLUSION: Normal examination. No evidence DVT Trav Hsieh MD Chest X-Ray 06/23/17 0000 Signed Impressions: Service Date/Time: June 16:19 - CONCLUSION: 1. Persistent left basilar opacity representing pleural effusion with associated volume loss and/or consolidation. The effusion is slightly smaller. 2. Persistent atelectasis at the right lung base. Luca Torres MD Abdomen X-Ray 06/23/17 0000 Signed Impressions: Service Date/Time: June 08:08 - CONCLUSION: Improving bowel gas pattern compared to the prior study. The NG tube is in good position in the stomach. rKzysztof Cruz MD Chest CT 06/20/17 0000 Signed Impressions: Service Date/Time: Tuesday, June 20, 2017 07:42 - CONCLUSION: 1. Bilateral effusions and consolidative changes in both lung bases. Bao Lora MD Abdomen/Pelvis CT 06/20/17 0000 Signed Impressions: Service Date/Time: Tuesday, June 20, 2017 07:39 - CONCLUSION: 1. Dilated stomach and multiple dilated loops of small bowel, likely ileus. 2. No definite gastric volvulus. 3. Fat containing right inguinal hernia which also contains small portion of the urinary bladder and minimal fluid. 4. Left-sided nephroureteral stent in good position. 5. Bibasilar consolidation and small pleural effusions. Sarwat F. Tocci, MD Assessment and Plan Problem List: (1) Atrial fibrillation ICD Codes: I48.91 - Unspecified atrial fibrillation Plan: New onset of atrial fibrillation in the setting of sepsis, C. Diff colitis and CA with mets. Difficult to control despite several cardioversion, meaning the infection likely in driving the afib. Agree with Cardizem drip. Amio off given elevated LFT's. Echo- Normal left ventricular systolic function with an estimated ejection fraction in the range of 50-55%, no wall motion abnormalities. Recommendations: 1. Continue supportive management for sepsis Will be available on a PRN basis for any questions or concerns. (2) Leukocytosis ICD Codes: D72.829 - Elevated white blood cell count, unspecified (3) Tachycardia ICD Codes: R00.0 - Tachycardia, unspecified (4) UTI (urinary tract infection) ICD Codes: N39.0 - Urinary tract infection, site not specified (5) Hypertension ICD Codes: I10 - Essential (primary) hypertension (6) Acute kidney injury ICD Codes: N17.9 - Acute kidney failure, unspecified (7) Sepsis ICD Codes: A41.9 - Sepsis, unspecified organism (8) Cancer of rectum ICD Codes: C20 - Malignant neoplasm of rectum (9) 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 Codes: Z93.2 - Ileostomy status Problem Qualifiers (1) Atrial fibrillation: Qualified Codes: I48.1 - Persistent atrial fibrillation Ángel Kwon MD Jun 24, 2017 15:50
--- NOTE | 2017-06-24 16:28 | HHI.PR ---
Subjective Remarks Pt still critical. BP stable off of Giorgio. Platelets decreased more today. Started Agriban.Remains sedated. Urine increased diuresis. More liquid stool. Vanco irrigations of Ileum started yesterday. Decreased N/G output. Almost 24 hrs of rapid A-fib but hemodynamically stable. Cardioversion and Amiodarone unsuccessful. Just started Digoxin and Cardizem drip. Objective Vital Signs Date Time Temp Pulse Resp B/P (MAP) Pulse Ox O2 Delivery O2 Flow Rate FiO2 06/24/17 15:58 97 50 06/24/17 15:00 128 06/24/17 14:37 146 125/67 06/24/17 14:22 147 71 115/71 (86) 99 102/62 (75) 06/24/17 14:07 156 69 115/71 (86) 99 96/59 (71) 06/24/17 14:00 160 06/24/17 13:52 168 67 105/66 (79) 100 89/58 (68) 06/24/17 13:00 169 70 104/75 (85) 99 87/56 (66) 06/24/17 12:03 98 60 06/24/17 12:00 50 06/24/17 12:00 154 06/24/17 12:00 98.8 154 69 111/72 (85) 100 86/56 (66) 06/24/17 11:00 170 65 115/57 (76) 99 86/56 (66) 06/24/17 10:00 166 06/24/17 10:00 166 44 114/66 (82) 100 102/66 (78) 06/24/17 09:00 165 68 142/60 (87) 99 86/59 (68) 06/24/17 08:00 50 06/24/17 08:00 146 06/24/17 08:00 99.2 146 65 115/74 (88) 100 95/65 (75) 06/24/17 07:58 100 100 06/24/17 07:50 149 119/72 06/24/17 07:00 146 63 135/78 (97) 100 106/67 (80) 06/24/17 06:00 161 65 122/86 (98) 100 110/70 (83) 06/24/17 06:00 161 06/24/17 05:30 154 06/24/17 05:30 154 62 142/101 (115) 100 112/71 (85) 06/24/17 05:00 155 66 133/104 (114) 100 90/62 (71) 06/24/17 05:00 155 06/24/17 04:32 100 100 06/24/17 04:00 99.9 171 66 141/78 (99) 100 95/60 (72) 06/24/17 04:00 171 06/24/17 03:30 158 66 133/75 (94) 100 98/59 (72) 06/24/17 03:30 158 06/24/17 03:00 162 67 112/91 (98) 99 78/63 (68) 06/24/17 03:00 162 06/24/17 02:30 177 68 135/87 (103) 96 119/77 (91) 06/24/17 02:30 177 06/24/17 02:00 168 72 114/80 (91) 98 113/69 (84) 06/24/17 02:00 168 06/24/17 01:30 169 64 120/72 (88) 99 111/68 (82) 06/24/17 01:30 169 06/24/17 01:04 168 06/24/17 01:04 168 67 121/90 (100) 98 79/60 (66) 06/24/17 01:00 171 72 188/85 (119) 98 88/60 (69) 06/24/17 01:00 171 06/24/17 00:52 99 40 06/24/17 00:32 164 112/71 06/24/17 00:30 164 06/24/17 00:30 164 77 172/96 (121) 97 77/59 (65) 06/24/17 00:00 158 06/24/17 00:00 158 67 135/80 (98) 100 112/71 (85) 06/23/17 22:00 147 06/23/17 21:49 151 115/65 06/23/17 21:07 100 40 06/23/17 20:00 100.8 133 65 114/60 (78) 100 88/54 (65) 06/23/17 20:00 133 06/23/17 18:00 158 06/23/17 18:00 158 61 122/75 (91) 98 119/64 (82) 06/23/17 17:26 98 40 06/23/17 17:00 116 58 105/68 (80) 99 87/82 (84) I/O 06/23/17 06/23/17 06/23/17 06/24/17 06/24/17 06/24/17 07:00 15:00 23:00 07:00 15:00 23:00 Intake Total 1502 ml 572 ml 2088 ml 950 ml 719 ml Output Total 2260 ml 1800 ml 1250 ml Balance -758 ml 572 ml 288 ml -300 ml 719 ml IV Total 1502 ml 572 ml 1354 ml 950 ml 719 ml TPN/PPN 612 ml Lipid 122 ml Output Urine Total 1640 ml 1000 ml 1250 ml Stool Total 620 ml 800 ml Result Diagram: 06/24/1761706/24/17617 Objective Remarks VS- Rapid A-fib. Gen: Pt quite warm,room temp is warm. Abd: Soft. Little to no distention. Wound healed. Ileostomy with clear outputs. Ext: legs elevated, Labs: Lactic acid still in 3.5 range I&Os: Better U/O,better stool output, decreased N/G Assessment and Plan Assessment and Plan Stable at present. Abdomen much softer,Ileostomy working. Resolving Ileus Remains critical. D/W . Continue oral Vanco and Flagyl. Starteded Entereg. Started Vancomycin 250mg/100cc irrigated TID thru Ileostomy. Seems somewhat better other than A-fib. May be able to start tube feeds soon. Luca Geiger MD Jun 24, 2017 16:28
[2017-06-24] MEDS ORDERED: DILTIAZEM HCL 25 MG/5 ML VIAL IV ONE (16:30)
[2017-06-24 16:47] LABS: FERRITIN 5508 NG/ML (26-388); TRANSFERRIN IRON PROFILE 47 MG/DL (200-360)
--- NOTE | 2017-06-24 17:16 | RADRPT ---
EXAM DATE/TIME: 06/24/2017 16:38 [facility] COMPARISON: No previous studies available for comparison. INDICATIONS : Elevated lab values. MEDICAL HISTORY : Hypertension. Hypercholesterolemia. Carcinoma, unspecified. Chemotherapy. Radiation therapy. CDI FF. SURGICAL HISTORY : Left knee surgery. Abdominal surgery, unspecified. ENCOUNTER: Initial ACUITY: 1 day PAIN SCORE: Nonresponsive. LOCATION: Bilateral upper quadrant MEASUREMENTS: LIVER: 15.9 cm length COMMON DUCT: 3 mm RIGHT KIDNEY: 10.0 x 4.4 x 4.7 cm SPLEEN: 9.0 cm length FINDINGS: LIVER: Normal echotexture without focal lesion or ductal dilatation. Hepatopedal flow. COMMON DUCT: No intraluminal mass or stone visualized. GALLBLADDER: The gallbladder is poorly distended. This artifactually elevates the wall thickness. No stones or slu dge observed. PANCREAS: The pancreas is largely obscured by bowel gas. A small portion of the pancreatic body is observed and normal. RIGHT KIDNEY: No hydronephrosis, stone or mass. SPLEEN: No focal lesion. A tiny right pleural effusion and small volume ascites noted. CONCLUSION: 1. Small volume ascites. 2. Small right effusion. Pierce Ospina Jr., MD on June 24, 2017 at 17:11 Board Certified Radiologist. This report was verified electronically.
[2017-06-24] MEDS: FAT EMULSION 20% INJ 250 ML (@10 mls/hr) IV-CENTRAL SCH (20:53)
[2017-06-24] MEDS: SODIUM CHLORIDE IV-CENTRAL SCH ×10 (20:53)
[2017-06-24] MEDS: [UNRECOGNIZED DRUG - OTHER] IV-CENTRAL SCH ×10 (20:53)
[2017-06-24] MEDS: SODIUM ACETATE IV-CENTRAL SCH ×10 (20:53)
[2017-06-24] MEDS: VASOPRESSIN INJ 40 UNITS in DEXTROSE 5% IN WATER 100ML INJ 98 ML IV SCH ×2 (21:29)
[2017-06-24 21:49] LABS: APTT (PATIENT) 86.7 SEC (24.3-30.1)
[2017-06-25] VITALS (19 sets, daily range): BP systolic 85–128; BP diastolic 48–60; PULSE 72–104; RESP 20–69; TEMP 98.5–99.3; O2SAT 97–99
[2017-06-25] MEDS: metroNIDAZOLE 500 MG INJ 100 ML IV SCH ×3 (01:01→18:07)
[2017-06-25] MEDS: METOCLOPRAMIDE HCL 10 MG/2 ML VIAL IV PUSH SCH ×3 (01:02→18:08)
[2017-06-25] MEDS: ALBUMIN 25% INJ 50 ML IV SCH ×2 (03:00→15:07)
[2017-06-25 03:36] LABS: APTT (PATIENT) 123.5 SEC (24.3-30.1)
[2017-06-25] MEDS: RESP: ALBUTEROL 2.5 MG/IPRATROPIUM 0.5 MG NEB (SCH) NEB ×5 (04:00→20:54)
[2017-06-25] MEDS: INSULIN ASPART SUPPLEMENTAL SCALE SQ SCH ×6 (04:00→23:43)
[2017-06-25 04:41] LABS: AUTOMATED NEUTROPHIL # 11.3 TH/MM3 (1.8-7.7); BASOPHIL # 0.1 TH/MM3 (0-0.2); BASOPHIL % 0.6 % (0.0-2.0); EOSINOPHIL # 0.1 TH/MM3 (0-0.4); HEMATOCRIT 34.4 % (39.0-51.0); LYMPH % 6.4 % (9.0-44.0); LYMPHOCYTE # 0.8 TH/MM3 (1.0-4.8); MEAN CELL VOLUME 83.3 FL (80.0-100.0); MEAN CORPUSCULAR HEMOGLOBIN 29.3 PG (27.0-34.0); MEAN CORPUSCULAR HGB CONC 35.1 % (32.0-36.0); MONO % 6.9 % (0.0-8.0); NEUT % 85.1 % (16.0-70.0); PLATELET COUNT 35 TH/MM3 (150-450); RED BLOOD COUNT 4.13 MIL/MM3 (4.50-5.90); WHITE BLOOD COUNT 13.2 TH/MM3 (4.0-11.0)
[2017-06-25 04:46] LABS: HEMO FLAGS AUTO DIFF
[2017-06-25] MEDS: PANTOPRAZOLE SODIUM 40 MG VIAL IV PUSH SCH ×2 (05:55→18:08)
--- NOTE | 2017-06-25 05:55 | RADRPT ---
EXAM DATE/TIME: 06/25/2017 04:30 [facility] COMPARISON: CHEST SINGLE AP, June 23, 2017, 16:19. INDICATIONS : Shortness of breath, possible pulmonary disease. MEDICAL HISTORY : Hypertension. Hypercholesterolemia. SURGICAL HISTORY : Appendectomy. ENCOUNTER: Subsequent ACUITY: 1 week PAIN SCORE: Non-responsive. LOCATION: Bilateral chest FINDINGS: A single AP semierect view of the chest was obtained and again demonstrates the endotracheal tube wit h the tip 4 cm from the antolin. A nasogastric tube is seen coursing through the esophagus into the st omach. Hazy opacity is noted in the lung bases left greater than right. The heart size remains within normal limits. There are multiple overlying electrocardiogram leads. There is a left internal jugula r central venous line in place. The bony thorax is intact. CONCLUSION: 1. Hazy opacity remains the lung bases left greater than right. 2. The patient remains intubated. Norman Mitchell MD on June 25, 2017 at 5:52 Board Certified Radiologist. This report was verified electronically.
[2017-06-25 06:45] LABS: BANDS 8 % (0-6); CORRECTED NUCLEATED RBC 2 /100 WBC (0-0); METAMYELOCYTES 6 % (0-1); MYELOCYTES 5 % (0-0); NEUTROPHIL # MANUAL DIFF 11.7 TH/MM3 (1.8-7.7); POLYS (SEG NEUTROPHILS) 70 % (16-70); WBC DIFF SAMPLE 100
[2017-06-25 06:46] LABS: PLATELET ESTIMATE SMEAR LOW (NORMAL); PLATELET MORPHOLOGY NORMAL (NORMAL); SCAN/DIFF FINAL DIFF MANUAL
[2017-06-25 06:56] LABS: BICARBONATE 23.6 MEQ/L (21.0-32.0); CALCIUM-PROTEIN CORRECTED 8.6 MG/DL (8.5-10.1); MAGNESIUM 2.2 MG/DL (1.5-2.5); POTASSIUM 4.1 MEQ/L (3.5-5.1); TOTAL BILIRUBIN ADULT 1.7 MG/DL (0.2-1.0)
[2017-06-25 08:11] LABS: APTT (PATIENT) 109.5 SEC (24.3-30.1)
--- NOTE | 2017-06-25 08:35 | HHI.GIFU ---
Subjective Remarks Resting in room. Sedated on vent. Pt on cardizem gtt, hr now controlled. He became hypotensive overnight, but b/p is now 98/55 without vasopressors. (Tami Sanderson) Objective Vitals I&O Vital Signs Date Time Temp Pulse Resp B/P (MAP) Pulse Ox O2 Delivery O2 Flow Rate FiO2 06/25/17 08:05 99 40 06/25/17 08:02 40 06/25/17 06:00 96 06/25/17 04:33 99 40 06/25/17 04:00 96 06/25/17 04:00 40 06/25/17 04:00 99.3 96 24 128/60 (82) 98 96/58 (71) 06/25/17 02:22 104 66 91/58 (69) 98 06/25/17 02:00 94 06/25/17 00:41 98 40 06/25/17 00:00 99.2 101 23 112/57 (75) 97 85/58 (67) 06/25/17 00:00 101 06/25/17 00:00 40 06/24/17 23:12 104 85/57 06/24/17 22:22 109 69 87/58 (68) 97 06/24/17 22:00 115 06/24/17 20:38 97 40 06/24/17 20:00 121 06/24/17 20:00 40 06/24/17 20:00 100.8 121 24 107/58 (74) 96 84/56 (65) 06/24/17 18:22 125 65 100/60 (73) 97 85/55 (65) 06/24/17 18:00 127 06/24/17 18:00 127 70 100/60 (73) 95 82/54 (63) 06/24/17 18:00 127 06/24/17 17:00 137 70 113/70 (84) 95 80/53 (62) 06/24/17 16:00 166 06/24/17 16:00 40 06/24/17 16:00 100.0 166 71 99/63 (75) 97 85/58 (67) 06/24/17 15:58 97 50 06/24/17 15:00 128 06/24/17 15:00 128 69 143/63 (89) 98 90/55 (67) 06/24/17 14:37 146 125/67 06/24/17 14:22 147 71 115/71 (86) 99 102/62 (75) 06/24/17 14:07 156 69 115/71 (86) 99 96/59 (71) 06/24/17 14:00 160 72 115/71 (86) 99 94/59 (71) 06/24/17 14:00 160 06/24/17 13:52 168 67 105/66 (79) 100 89/58 (68) 06/24/17 13:00 169 70 104/75 (85) 99 87/56 (66) 06/24/17 12:03 98 60 06/24/17 12:00 50 06/24/17 12:00 154 06/24/17 12:00 98.8 154 69 111/72 (85) 100 86/56 (66) 06/24/17 11:00 170 65 115/57 (76) 99 86/56 (66) 06/24/17 10:00 166 06/24/17 10:00 166 44 114/66 (82) 100 102/66 (78) 06/24/17 09:00 165 68 142/60 (87) 99 86/59 (68) I/O 06/24/17 06/24/17 06/24/17 06/25/17 06/25/17 06/25/17 07:00 15:00 23:00 07:00 15:00 23:00 Intake Total 950 ml 719 ml 1596 ml 958 ml Output Total 1250 ml 1400 ml 350 ml Balance -300 ml 719 ml 196 ml 608 ml IV Total 950 ml 719 ml 1596 ml 958 ml Output Urine Total 1250 ml 850 ml 350 ml Stool Total 550 ml Laboratory Laboratory Tests Test 06/24/17 10:15 06/24/17 15:00 06/24/17 19:00 06/25/17 02:00 Activated Partial Thromboplast Time 56.2 76.9 86.7 123.5 Iron Level 76 Total Iron Binding Capacity 66 Percent Iron Saturation Ferritin 5508 Tumor Marker Alpha Fetoprotein 3.3 Test 06/25/17 03:45 06/25/17 07:00 White Blood Count 13.2 Red Blood Count 4.13 Hemoglobin 12.1 Hematocrit 34.4 Mean Corpuscular Volume 83.3 Mean Corpuscular Hemoglobin 29.3 Mean Corpuscular Hemoglobin Concent 35.1 Red Cell Distribution Width 16.0 Platelet Count 35 Mean Platelet Volume 8.8 Neutrophils (%) (Auto) 85.1 Lymphocytes (%) (Auto) 6.4 Monocytes (%) (Auto) 6.9 Eosinophils (%) (Auto) 1.0 Basophils (%) (Auto) 0.6 Neutrophils # (Auto) 11.3 Lymphocytes # (Auto) 0.8 Monocytes # (Auto) 0.9 Eosinophils # (Auto) 0.1 Basophils # (Auto) 0.1 CBC Comment AUTO DIFF Differential Total Cells Counted 100 Neutrophils % (Manual) 70 Band Neutrophils % 8 Lymphocytes % 9 Monocytes % 2 Neutrophils # (Manual) 11.7 Metamyelocytes 6 Myelocytes 5 Nucleated Red Blood Cells 2 Differential Comment FINAL DIFF MANUAL Platelet Estimate LOW Platelet Morphology Comment NORMAL Blood Urea Nitrogen 44 Creatinine 1.73 Random Glucose 135 Total Protein 4.9 Albumin 1.7 Calcium Level 7.4 Magnesium Level 2.2 Alkaline Phosphatase 239 Aspartate Amino Transf (AST/SGOT) 1300 Alanine Aminotransferase (ALT/SGPT) 386 Total Bilirubin 1.7 Sodium Level 134 Potassium Level 4.1 Chloride Level 100 Carbon Dioxide Level 23.6 Anion Gap 10 Estimat Glomerular Filtration Rate 39 Protein Corrected Calcium 8.6 Activated Partial Thromboplast Time 109.5 Date/Time Source Procedure Growth Status 06/20/17 17:11 Blood Peripheral Aerobic Blood Culture - Preliminary NO GROWTH IN 4 DAYS Resulted 06/20/17 17:11 Blood Peripheral Anaerobic Blood Culture - Preliminary NO GROWTH IN 4 DAYS Resulted 06/20/17 15:50 Urine Catheterized Urine Urine Culture - Final NO GROWTH IN 48 HOURS. Complete Imaging Last Impressions Chest X-Ray 06/25/17 0600 Signed Impressions: Service Date/Time: Sunday, June 25, 2017 04:30 - CONCLUSION: 1. Hazy opacity remains the lung bases left greater than right. 2. The patient remains intubated. Norman Mitchell MD Liver Ultrasound 06/24/17 0000 Signed Impressions: Service Date/Time: Saturday, June 24, 2017 16:38 - CONCLUSION: 1. Small volume ascites. 2. Small right effusion. Pierce Ospina Jr., MD Upper Extremity Ultrasound 06/23/17 0000 Signed Impressions: Service Date/Time: June 20:03 - CONCLUSION: Noncompressibility right cephalic vein and left basilic vein consistent with venous thrombosis Trav Hsieh MD Lower Extremity Ultrasound 06/23/17 0000 Signed Impressions: Service Date/Time: June 20:16 - CONCLUSION: Normal examination. No evidence DVT Trav Hsieh MD Abdomen X-Ray 06/23/17 0000 Signed Impressions: Service Date/Time: June 08:08 - CONCLUSION: Improving bowel gas pattern compared to the prior study. The NG tube is in good position in the stomach. Krzysztof Cruz MD Chest CT 06/20/17 0000 Signed Impressions: Service Date/Time: Tuesday, June 20, 2017 07:42 - CONCLUSION: 1. Bilateral effusions and consolidative changes in both lung bases. Bao Lora MD Abdomen/Pelvis CT 06/20/17 0000 Signed Impressions: Service Date/Time: Tuesday, June 20, 2017 07:39 - CONCLUSION: 1. Dilated stomach and multiple dilated loops of small bowel, likely ileus. 2. No definite gastric volvulus. 3. Fat containing right inguinal hernia which also contains small portion of the urinary bladder and minimal fluid. 4. Left-sided nephroureteral stent in good position. 5. Bibasilar consolidation and small pleural effusions. Sarwat Suarez MD Physical Exam HEENT: Normocephalic; atraumatic; no jaundice. CHEST: OETT to vent. Course breath sounds. CARDIAC: Irregular, HR 90. Afib on monitor. B/P 98/55. ABDOMEN: Soft, distended, ileostomy with small liquid in ostomy bag. OGT to LIWS EXTREMITIES: BUE edema. SKIN: Normal; no rash; no jaundice. FILAMENT TESTER: Sedated on vent (Tami Sanderson) Assessment and Plan Plan ASSESSMENT: - Elevated LFTs. Receiving TPN (started 06/19), started on amiodarone (started 06/19- off 06/24). LFTs were normal on 06/19. The AST went to 42 on 06/22 and 129 on 06/23. These spiked T. Bili 1.3, AST 546, ALT 158, Alk Phosph 197 on 06/24. Of note he has atrial fibrillation with RVR, HR 160's. His amiodarone was changed to Cardizem and his hr is now controlled, but he did have some hypotensive episodes overnight. This morning, his b/p is 98/55 without vasopressors. Most likely, his LFT derangement is secondary to medications (suspect possibly combination of tpn and amiodarone), sepsis, possible congestive hepatopathy related to Afib with RVR. Today's increase (T. Bili 1.7, AST 1300, ALT 386, ALK Phosph 239). Likely related to shocked liver from hypotensive episodes over night. LIver US (06/24/17)---> Small volume ascites. Small right effusion. Hepatitis panel pending., [place], AMA, ASMA, Ceruloplasmin, ALpha 1 ANtitrypsin pending. AFP 3.3, Ferritin 5508. Iron saturation > 100%. He received one unit of blood on 06/18. Hfe gene. Recommend avoiding hepatotoxins, hypotensive episodes, and starting enteral feedings when able to from CRS standpoint. - Severe sepsis with lactic acidosis with concern for possible bowel ischemia, CDifficile. Pt presented to ER with abdominal pain, n/v, generalized weakness. CT scan abdomen and pelvis with IV contrast (06/17/17)---> Dilatation of the distal small bowel when compared to proximal. Minimal colonic gas is evidence. Zone of transition appears to be in the right lower quadrant. I can see the transition but not etiology for such. BCx no growth 1 day, Urine cx 50-100,000 CFU/mL mixed mark. GI consulted for egd/ileoscopy to evaluate for bowel ischemia. S/P EGD/Colonoscopy (06/19/17)----> 1. There was LA Class B esophagitis noted 2. There was erythematous gastritis in the gastric body and gastric antrum; 2. 400cc of fluid suctioned from the stomach. ? gastric volvulus 3. Retroflexed views revealed no abnormalities Abnormal small bowel mucosa to 15cm. Pseudomembranous illeitis. ? ischemia. Pathology duodenal mucosa without significant histologic abnormality. moderate chronic gastritis and associated reactive epithelial changes. Negaive for helicobacter pylori, acute enteritis with features of ulceration. CDiff PCR (+) Epid 027 (-). ID following. CT scan abdomen and pelvis without contrast (06/20/17)---> dilated stomach and multiple dilated loops of small bowel, likely ileus. No definite gastric volvulus. Fat containing right ingional hernia which also contains small portion of the urinary bladder and minimal fluid. Left sided nephroureteral stent in good position. bibasilar consolidation and small pleural effusions. S/P Colonoscopy and ileoscopy (06/22/17)----> normal colonoscopy with ileal pseudomembranous colitis. ID is following. Flagyl, Oral Vanco, Vanco enemas via ileostomy. - CDiff. Vanco enemas via ileostomy/Oral vanco/Flagyl. ID following - PSBO/?Gastric volvulus. ? Volvulus on egd. Upper gi series ordered, d/c'd by CRS. CT scan abdomen and pelvis without contrast (06/20/17)---> dilated stomach and multiple dilated loops of small bowel, likely ileus. No definite gastric volvulus. Fat containing right ingional hernia which also contains small portion of the urinary bladder and minimal fluid. Left sided nephroureteral stent in good position. bibasilar consolidation and small pleural effusions. KUB (06/20/17)--> Nasogastric tube distal tip is in the gastric cardia region likely just beyond the GE junction. However, sentinel hole is in the distal esophagus, suggest advancement. Abnormally dilated small bowel obstruction. NGT to LI. TPN - Respiratory failure, small pleural effusion. Vent per CCM - NEIL. Creat. 1.73 - Anemia. S/P 1 unit prbc. 12.1/34.4. - Atrial fibrillation with RVR. Was started on amiodarone, but this is being changed to cardizem because his heart rate remains in 160 and he has elevated LFTs. - Thrombocytopenia. 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 On argatroban. - Metastatic colon cancer. S/P lower anterior resection/coloanal anastomosis, resection and reanastomosis of the left ureter with ureteral anastomosis and double-J stent placement, wedge resection of hepatic metastasis, mobilization of the splenic flexure, and diverting closed loop ileostomy with Dr. Geiger and Dr. Pelayo on 05/26/17. Dr. Noel is his oncologist, but he has not seen him since his surgery PLAN: - NPO - NGT to LIWS - Cont. TPN for now - Cont. PPI - Await hepatitis profile, [place], ama, asma, ceruloplasmin, alpha 1 antitrypsin, Hfe gene - Abx per ID recommendations, Vanco enemas, Oral Vanco, Flagyl - Monitor labs - Supportive care - Avoid hepatotoxins - Avoid hypotensive episodes - Further recommendations to follow based on results of above - Pt seen and examined by Dr. Guaman and myself and this note is written on his behalf (Tami Sanderson) Physician Comments Patient seen and examined Agree with above Continue with current supportive care Monitor labs LFTs improving (Brijesh Guaman MD) Tami Sanderson Jun 25, 2017 08:35 Brijesh Guaman MD Jun 25, 2017 18:33
[2017-06-25] MEDS: CHLORHEXIDINE 0.12% (ORAL KIT) 15 ML CUP MT SCH ×2 (08:39→20:46)
[2017-06-25] MEDS: VANCOMYCIN 500 MG VIAL (FOR ORAL USE ONLY) NG SCH ×4 (08:40→20:45)
[2017-06-25] MEDS: ALVIMOPAN 12 MG CAPSULE NG SCH ×2 (08:40→20:45)
[2017-06-25] MEDS: DILTIAZEM INJ 125 MG in SODIUM CHLORIDE 0.9% INJ 100 ML IV PRN ×2 (09:01→21:55)
--- NOTE | 2017-06-25 09:11 | RADRPT ---
EXAM DATE/TIME: 06/25/2017 08:39 [facility] COMPARISON: CT ABDOMEN & PELVIS W/O CONTRAST, June 20, 2017, 7:39. ABDOMEN KUB ONLY, June 23, 2017, 8:08. INDICATIONS : Evaluate for ileus. MEDICAL HISTORY : None. SURGICAL HISTORY : None. ENCOUNTER: Initial ACUITY: 1 day PAIN SCORE: Non-responsive. LOCATION: Abdomen FINDINGS: Supine view of the abdomen was performed. There continues to be a left ureteral stent in place. There is nonspecific mildly distended small bowel in the right mid abdomen. There is an ileostomy site in the right lower quadrant. Free air is not clearly seen. Vascular calcifications are seen. CONCLUSION: 1. Left ureteral stent. 2. Mildly dilated small bowel in the right midabdomen. 3. Ileostomy site in the right lower quadrant. Luca Rivera MD on June 25, 2017 at 9:07 Board Certified Radiologist. This report was verified electronically.
[2017-06-25] MEDS: MIDAZOLAM 100 MG/100 ML INJ 100 ML IV PRN ×2 (09:17→21:56)
[2017-06-25] MEDS: VANCOMYCIN IRRIGATION SCH ×3 (09:56→18:07)
[2017-06-25] MEDS: SODIUM CHLORIDE 0.9% IRRIGATION SCH ×3 (09:56→18:07)
[2017-06-25] MEDS: IRR IRRIGATION SCH ×3 (09:56→18:07)
[2017-06-25 10:57] LABS: INTERNATIONAL NORMALIZED RATIO 2.1 RATIO; PROTHROMBIN TIME - PATIENT 23.9 SEC (9.8-11.6)
--- NOTE | 2017-06-25 12:09 | HHI.PR ---
Subjective Remarks BP stable off of Giorgio. Platelets decreased more today to 35K.Remains sedated. Urine ok. More liquid stool. Vanco irrigations of Ileum continue. Decreased N/G output. A-Fib controlled weight on Cardizem and Digoxin.Cardioversion and Amiodarone unsuccessful. Digoxin and Cardizem drip controlling rate. Objective Vital Signs Date Time Temp Pulse Resp B/P (MAP) Pulse Ox O2 Delivery O2 Flow Rate FiO2 06/25/17 09:01 85 93/50 06/25/17 08:05 99 40 06/25/17 08:02 40 06/25/17 08:00 85 06/25/17 08:00 50 06/25/17 08:00 99.0 85 22 97/56 (70) 98 103/49 (67) 06/25/17 06:00 96 06/25/17 04:33 99 40 06/25/17 04:00 96 06/25/17 04:00 40 06/25/17 04:00 99.3 96 24 128/60 (82) 98 96/58 (71) 06/25/17 02:22 104 66 91/58 (69) 98 06/25/17 02:00 94 06/25/17 00:41 98 40 06/25/17 00:00 99.2 101 23 112/57 (75) 97 85/58 (67) 06/25/17 00:00 101 06/25/17 00:00 40 06/24/17 23:12 104 85/57 06/24/17 22:22 109 69 87/58 (68) 97 06/24/17 22:00 115 06/24/17 20:38 97 40 06/24/17 20:00 121 06/24/17 20:00 40 06/24/17 20:00 100.8 121 24 107/58 (74) 96 84/56 (65) 06/24/17 18:22 125 65 100/60 (73) 97 85/55 (65) 06/24/17 18:00 127 06/24/17 18:00 127 70 100/60 (73) 95 82/54 (63) 06/24/17 18:00 127 06/24/17 17:00 137 70 113/70 (84) 95 80/53 (62) 06/24/17 16:00 166 06/24/17 16:00 40 06/24/17 16:00 100.0 166 71 99/63 (75) 97 85/58 (67) 06/24/17 15:58 97 50 06/24/17 15:00 128 06/24/17 15:00 128 69 143/63 (89) 98 90/55 (67) 06/24/17 14:37 146 125/67 06/24/17 14:22 147 71 115/71 (86) 99 102/62 (75) 06/24/17 14:07 156 69 115/71 (86) 99 96/59 (71) 06/24/17 14:00 160 72 115/71 (86) 99 94/59 (71) 06/24/17 14:00 160 06/24/17 13:52 168 67 105/66 (79) 100 89/58 (68) 06/24/17 13:00 169 70 104/75 (85) 99 87/56 (66) 06/24/17 12:03 98 60 06/24/17 12:00 50 06/24/17 12:00 154 06/24/17 12:00 98.8 154 69 111/72 (85) 100 86/56 (66) I/O 06/24/17 06/24/17 06/24/17 06/25/17 06/25/17 06/25/17 07:00 15:00 23:00 07:00 15:00 23:00 Intake Total 950 ml 719 ml 1596 ml 958 ml Output Total 1250 ml 1400 ml 350 ml Balance -300 ml 719 ml 196 ml 608 ml IV Total 950 ml 719 ml 1596 ml 958 ml Output Urine Total 1250 ml 850 ml 350 ml Stool Total 550 ml Result Diagram: 06/25/17 0345 06/25/17 0345 Objective Remarks VS- A-fib. Rate now controlled Gen: Pt quite warm,room temp is warm. Abd: Soft. Little to no distention. Wound healed. Ileostomy with clear outputs. Ext: legs elevated Labs: Platelets down more to 35K. BUN/CR sl elevated I&Os: OK Assessment and Plan Assessment and Plan Stable at present. Abdomen much softer,Ileostomy working. Resolving Ileus D/W . Continue oral Vanco and Flagyl. Started Vancomycin 250mg/100cc irrigating TID thru Ileostomy. Seems somewhat better. May be able to start tube feeds soon. Per [facility] Luca Geiger MD Jun 25, 2017 12:09
--- NOTE | 2017-06-25 12:37 | PD.ONC.PN ---
Subjective Subjective Remarks Tmax 99.3 overnight Pt remains intubated, sedated Per RN they have had a more difficult time weaning the vent Objective Data Date Time Temp Pulse Resp B/P (MAP) Pulse Ox O2 Delivery O2 Flow Rate FiO2 06/25/17 10:00 83 06/25/17 09:01 85 93/50 06/25/17 08:05 99 40 06/25/17 08:02 40 06/25/17 08:00 85 06/25/17 08:00 50 06/25/17 08:00 99.0 85 22 97/56 (70) 98 103/49 (67) 06/25/17 06:00 96 06/25/17 04:33 99 40 06/25/17 04:00 96 06/25/17 04:00 40 06/25/17 04:00 99.3 96 24 128/60 (82) 98 96/58 (71) 06/25/17 02:22 104 66 91/58 (69) 98 06/25/17 02:00 94 06/25/17 00:41 98 40 06/25/17 00:00 99.2 101 23 112/57 (75) 97 85/58 (67) 06/25/17 00:00 101 06/25/17 00:00 40 06/24/17 23:12 104 85/57 06/24/17 22:22 109 69 87/58 (68) 97 06/24/17 22:00 115 06/24/17 20:38 97 40 06/24/17 20:00 121 06/24/17 20:00 40 06/24/17 20:00 100.8 121 24 107/58 (74) 96 84/56 (65) 06/24/17 18:22 125 65 100/60 (73) 97 85/55 (65) 06/24/17 18:00 127 06/24/17 18:00 127 70 100/60 (73) 95 82/54 (63) 06/24/17 18:00 127 06/24/17 17:00 137 70 113/70 (84) 95 80/53 (62) 06/24/17 16:00 166 06/24/17 16:00 40 06/24/17 16:00 100.0 166 71 99/63 (75) 97 85/58 (67) 06/24/17 15:58 97 50 06/24/17 15:00 128 06/24/17 15:00 128 69 143/63 (89) 98 90/55 (67) 06/24/17 14:37 146 125/67 06/24/17 14:22 147 71 115/71 (86) 99 102/62 (75) 06/24/17 14:07 156 69 115/71 (86) 99 96/59 (71) 06/24/17 14:00 160 72 115/71 (86) 99 94/59 (71) 06/24/17 14:00 160 06/24/17 13:52 168 67 105/66 (79) 100 89/58 (68) 06/24/17 13:00 169 70 104/75 (85) 99 87/56 (66) 06/25/17 06/25/17 06/25/17 07:00 15:00 23:00 Intake Total 958 ml Output Total 350 ml Balance 608 ml Result Diagram: 06/25/17 0345 06/25/17 0345 Laboratory Results Laboratory Tests Test 06/24/17 15:00 06/24/17 19:00 06/25/17 02:00 06/25/17 03:45 Activated Partial Thromboplast Time 76.9 SEC 86.7 SEC 123.5 SEC Iron Level 76 MCG/DL Total Iron Binding Capacity 66 MCG/DL Percent Iron Saturation % Ferritin 5508 NG/ML Tumor Marker Alpha Fetoprotein 3.3 NG/ML White Blood Count 13.2 TH/MM3 Red Blood Count 4.13 MIL/MM3 Hemoglobin 12.1 GM/DL Hematocrit 34.4 % Mean Corpuscular Volume 83.3 FL Mean Corpuscular Hemoglobin 29.3 PG Mean Corpuscular Hemoglobin Concent 35.1 % Red Cell Distribution Width 16.0 % Platelet Count 35 TH/MM3 Mean Platelet Volume 8.8 FL Neutrophils (%) (Auto) 85.1 % Lymphocytes (%) (Auto) 6.4 % Monocytes (%) (Auto) 6.9 % Eosinophils (%) (Auto) 1.0 % Basophils (%) (Auto) 0.6 % Neutrophils # (Auto) 11.3 TH/MM3 Lymphocytes # (Auto) 0.8 TH/MM3 Monocytes # (Auto) 0.9 TH/MM3 Eosinophils # (Auto) 0.1 TH/MM3 Basophils # (Auto) 0.1 TH/MM3 CBC Comment AUTO DIFF Differential Total Cells Counted 100 Neutrophils % (Manual) 70 % Band Neutrophils % 8 % Lymphocytes % 9 % Monocytes % 2 % Neutrophils # (Manual) 11.7 TH/MM3 Metamyelocytes 6 % Myelocytes 5 % Nucleated Red Blood Cells 2 /100 WBC Differential Comment FINAL DIFF MANUAL Platelet Estimate LOW Platelet Morphology Comment NORMAL Blood Urea Nitrogen 44 MG/DL Creatinine 1.73 MG/DL Random Glucose 135 MG/DL Total Protein 4.9 GM/DL Albumin 1.7 GM/DL Calcium Level 7.4 MG/DL Magnesium Level 2.2 MG/DL Alkaline Phosphatase 239 U/L Aspartate Amino Transf (AST/SGOT) 1300 U/L Alanine Aminotransferase (ALT/SGPT) 386 U/L Total Bilirubin 1.7 MG/DL Sodium Level 134 MEQ/L Potassium Level 4.1 MEQ/L Chloride Level 100 MEQ/L Carbon Dioxide Level 23.6 MEQ/L Anion Gap 10 MEQ/L Estimat Glomerular Filtration Rate 39 ML/MIN Protein Corrected Calcium 8.6 MG/DL Test 06/25/17 07:00 06/25/17 09:49 Activated Partial Thromboplast Time 109.5 SEC Prothrombin Time 23.9 SEC Prothromb Time International Ratio 2.1 RATIO Imaging Studies Last 24 hours Impressions Chest X-Ray 06/25/17 0600 Signed Impressions: Service Date/Time: Sunday, June 25, 2017 04:30 - CONCLUSION: 1. Hazy opacity remains the lung bases left greater than right. 2. The patient remains intubated. Norman Mitchell MD Abdomen X-Ray 06/25/17 0000 Signed Impressions: Service Date/Time: Sunday, June 25, 2017 08:39 - CONCLUSION: 1. Left ureteral stent. 2. Mildly dilated small bowel in the right midabdomen. 3. Ileostomy site in the right lower quadrant. Luca Rivera MD Administered Medications Medications (Trade) Dose Ordered Sig/[place] Route PRN Reason Start Time Stop Time Status Last Admin Dose Admin Acetaminophen/ Hydrocodone Bitart ([place] 5-325 Mg) 1 tab Q4H PRN PO PAIN SCALE 1 TO 5 06/17/17 22:00 06/17/17 22:02 Acetaminophen/ Hydrocodone Bitart (Red[place]ite 5-325 Mg) 2 tab Q4H PRN PO PAIN SCALE 6 TO 10 06/17/17 22:00 06/21/17 20:40 Ondansetron HCl (Zofran Inj) 4 mg Q4H PRN IV PUSH NAUSEA/VOMITING 06/17/17 22:00 06/18/17 09:45 Miscellaneous Information Patient in critical care unit? Ass... [id number] .XX 06/18/17 05:45 06/18/17 05:45 Vasopressin 40 units/Dextrose 100 ml @ 6 mls/hr [id number] IV 06/18/17 15:29 06/19/17 08:09 Metoclopramide HCl (Reglan Inj) 5 mg Q8H IV PUSH 06/18/17 17:00 06/25/17 08:40 Potassium Chloride 100 ml @ 50 mls/hr Q2H PRN IV For Potassium 2.8 - 3.2 mEq/L 06/19/17 07:45 06/21/17 03:31 Potassium Chloride 100 ml @ 50 mls/hr Q2H PRN IV For Potassium 3.3 - 3.5 mEq/L 06/19/17 07:45 06/22/17 17:22 Sodium Phosphate 30 mmol/Sodium Chloride 250 ml @ 42 mls/hr UNSCH PRN IV For Phosphorus < 2.5 mg/dL 06/19/17 07:45 06/20/17 17:06 Fat Emulsion Intravenous 250 ml @ 10 mls/hr Q24H IV-CENTRAL 06/19/17 20:00 06/24/17 20:53 Insulin Aspart (NovoLOG SUPPLEMENTAL SCALE) 1 Q4HR SQ 06/19/17 12:00 06/21/17 20:34 Sodium Chloride 40 meq/Sodium Acetate 59 meq/ Potassium Chloride 40 meq/ Sodium Phosphate 40 meq/Magnesium Chloride 10 meq/ Calcium Chloride 9 meq/ Multivitamins 10 ml/Folic Acid 1 mg/Insulin Human Regular 40 units/ Amino Acids/ Dextrose 2,091.7937 ml @ 50 mls/hr Q24H IV-CENTRAL 06/19/17 20:00 06/24/17 20:53 Vancomycin HCl (VANCOMYCIN for oral use only) 500 mg QID NG 06/19/17 18:00 06/25/17 08:40 Phenylephrine HCl 160 mg/Dextrose 500 ml @ 7.5 mls/hr TITRATE PRN IV Blood pressure management 06/19/17 19:15 06/24/17 00:32 Chlorhexidine Gluconate (Peridex 0.12% Liq) 15 ml BID@08,20 MT 06/20/17 08:00 06/25/17 08:39 Metronidazole 100 ml @ 100 mls/hr Q8H IV 06/20/17 09:00 06/25/17 08:52 Acetaminophen (Tylenol 650 Mg/ 20 ml Liq) 650 mg Q6H PRN PO fever>100.5 06/20/17 16:30 06/23/17 03:57 Pantoprazole Sodium (Protonix Inj) 40 mg Q12H IV PUSH 06/21/17 07:00 06/25/17 05:55 Alvimopan (Entereg) 12 mg Q12HR NG 06/22/17 12:00 06/25/17 08:40 Albumin Human 50 ml @ 60 mls/hr Q12H IV 06/22/17 15:00 06/25/17 03:00 Vancomycin HCl 250 mg/Sodium Chloride 102.5 ml @ 0 mls/hr TID IRRIGATION 06/23/17 13:00 06/25/17 09:56 Midazolam HCl 100 ml @ 2 mls/hr TITRATE PRN IV SEDATION 06/23/17 16:15 06/25/17 09:17 Argatroban 250 mg/ Sodium Chloride 252.5 ml @ 7.72 mls/hr TITRATE PRN IV aPTT < 50 06/24/17 12:00 06/24/17 12:43 Diltiazem HCl 125 mg/Sodium Chloride 125 ml @ 5 mls/hr TITRATE PRN IV Tachycardia 06/24/17 15:00 06/25/17 09:01 Albuterol/ Ipratropium (Duoneb Neb) 1 ampule Q6HR NEB NEB 06/24/17 16:00 06/25/17 08:05 Objective Remarks GENERAL: Elderly male, resting in bed in no acute distress. SKIN: Warm and dry. HEAD: Normocephalic. EYES: No injection or drainage. NECK: Supple, trachea midline. CARDIOVASCULAR: Irregular rhythm RESPIRATORY: Mechanically ventilated. Coarse lung sounds GASTROINTESTINAL: Hypoactive BS. Ileostomy bag with davison liquid noted. EXTREMITIES: No cyanosis, or edema. NEUROLOGICAL: Sedated. Assessment/Plan Assessment Mr. Armendariz is a 67-year-old male who was recently diagnosed with metastatic adenocarcinoma of the rectosigmoid colon and had resection of a metastatic deposit to the liver. He is status post primary surgical resection as well as wedge resection of a metastatic deposit to the liver and now has C difficile colitis. 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 Plan 1. It is noted that his APTT on Argatroban is elevated at 123 overnight. This is due to liver dysfunction. The plan is to HOLD the argatroban until his APTT is less than 70. Once it is less then 70, will resume the argatroban at a dose of .05mcg/kg/min = .2 cc/hour which is half of the current dose.. This was discussed with the ICU nurse. We will get daily CMP's. 2. He has a left shift with increased numbers of promyelocytes, metamyelocytes, and nucleated RBC's. This is likely due to the C difficile infection and not an underlying bone marrow process. 3. In regards to the thrombocytopenia, it is likely that it is due to the HIT. Await SMILEY results. Will also check a fibrinogen tomorrow to rule out coagulopathy and consumption due to sepsis from the Cdiff. Deb Posada Jun 25, 2017 12:37 Harpreet Hurley MD Jun 25, 2017 13:01
[2017-06-25] MEDS: SODIUM CHLOR 0.9% 1000 ML INJ 1,000 ML IV SCH (13:30)
--- NOTE | 2017-06-25 13:34 | HHI.CCPN ---
Subjective Remarks/Hospital Course The patient is a 67-year-old male with past medical history of hypertension, metastatic colon cancer, tobacco abuse, who, about 3 weeks ago underwent low anterior resection with low colorectal anastomosis, diverting ileostomy, and resection of a segment of the left ureter with ureteral anastomosis and double- J stent placement. He presented yesterday with 5 day history of abdominal discomfort and increasing weakness. No history of high output from ileostomy. He was admitted to the colorectal surgery for dehydration and probable UTI. He was placed on ciprofloxacin and IV hydration. According to Dr. Geiger's note it was difficult dissection/resection colon mass because of the pelvic sidewall adherence and the adherence to the left ureter. A portion of ureter was resected due to possibility of tumor infiltration, and Dr. Augustine Pelayo re- anastomosed the ureter and placed left-sided double-J stent. Also 1 cm hepatic metastasis in his liver that was excised. Hospitalist consultation was requested for medical management and evaluation of tachycardia today. He was seen by Dr. Jay and was placed on infusion of Cardizem for heart rate 140s. Patient became hypotensive with systolic blood pressure early 90s. Lab work showed WBC 14.5 with 44% bands, creat increase from 1.2 to 1.4 and severely increased lactate at 8 from admission lactate of 2.6. CT of the abdomen pelvis done yesterday showed probable small bowel ileus. I evaluated the patient in the ICU. He is tachycardic in 140s, hypotensive and systolic blood pressure in mid 80s. Clinically appears very dehydrated, an NG tube was placed with approximately 3 L of some coffee-ground output. ABG shows a base excess of -10 and bicarbonate 12. I have ordered 4 liter normal saline boluses start 1 amp of bicarbonate, discontinued the LR infusion, and started bicarb gtt. Discontinue ciprofloxacin, started Zosyn every 6 hours, vancomycin 1 g 1. His elevated lactic acid and bandemia most likely secondary to severe sepsis, ileus, and severe dehydration. Serial lactate is ordered SUBJ 06/19: Lactic acid remains elevated at 6.6 despite getting 9 L of crystalloid boluses in last 24 hours. Tachycardia has improved heart rate in 110s. Remains on vasopressin at 0.04 units/min. Urine output almost 1200 mL overnight, OGT initial output was almost 3 L when placed yesterday a.m. Overnight had 550 mL of greenish brown fluid output. EGD pending today rule out gastric ischemia per Dr. Romero. Apparently Flex sig was negative post op in Dr. Geiger's office 06/20: Developed A. fib with RVR. Heart rate 200. Hemodynamically unstable, synchronized cardioversion attempted by Dr. Morales 100 200 J. Given 3 g mag sulfate and 80 mEq KCl 1, 0.5 digoxin 1 and started on amiodarone and Giorgio- Synephrine. Intubated due to hemodynamic instability. Currently remains sedated. Currently on Giorgio-Synephrine 80 mcg/m, and amiodarone. CT chest abdomen pelvis again confirms gastric and small bowel distention/ileus. UO 1800 ml in 24 hours 06/21: Remains critically ill, intubated sedated, on 100 mcg/min neosynpehrine. HR better controlled. NG output 1500, UO >1.4L. Am labs pending. Ileostomy sample positive for C Diff on PO vanc IV Flagyl. 06/22: Remains intubated sedated. Urine output 3000 mL with Bumex. NGT [address] Geiger did colonoscopy which was normal. Ileoscopy showed pseudomembranous colitis. Currently on 200 mcg/min of neosynephrine. Afib with RVR HR in 140's 06/23: Remains intubated sedated, remains in atrial fibrillation with RVR. Still requiring high doses of Giorgio-Synephrine at 190 mcg/min. UO 2.5L. chest x- ray showed bilateral large effusions. KUB shows improving small bowel distention. WBC count is slightly improved 06/24: Unable to control HR. Repeat shock x3 today. remains in atrial fibrillation with RVR rates 160-170 intermittently. Remains on amiodarone but will discontinued due to elevation of liver enzymes AST 546 ALT 158. (GI notified). Start Cardizem infusion and also give Surjit 0.5 mg 1. Platelet count continues to drop from 67 to today 45. Hematology following will start of Argatroban today. Creatinine has slightly increased to 1.3 to will DC Bumex infusion 06/25: Patient remains intubated sedated critically ill. Heart rate controlled for the first time since atrial fibrillation started. Heart rate remains 80- 90. Urine output 1200 mL in 24 hours but BUN/creatinine increasing 44/1.7. I will hydrate with 50 mL/hr normal saline for 24 hours. Transaminitis increasing AST 1300 ALT 386. Ultrasound of the liver unremarkable GI following Objective Vital Signs Date Time Temp Pulse Resp B/P (MAP) Pulse Ox O2 Delivery O2 Flow Rate FiO2 06/25/17 13:13 97 40 06/25/17 10:00 83 06/25/17 09:01 93/50 06/25/17 08:00 99.0 22 06/22/17 07:00 Mechanical Ventilator Nasal Cannula Simple Mask Intake and Output 06/25/17 06/25/17 06/26/17 08:00 16:00 00:00 Intake Total 864 ml Output Total 350 ml Balance 514 ml Result Diagram: 06/25/1734406/25/[address] abdomen pelvis shows distal small bowel dilatation Chest x-ray no acute findings KUB shows ileus Objective Remarks Infusions: Cardizem Giorgio-Synephrine -OFF Argatroban Versed TPN GENERAL: Well-developed and well-nourished male intubated sedated SKIN: Warm and dry. HEENT: Extraocular muscles intact. NECK: The neck is supple. LIJ central line in place CHEST:Few coarse rhonchi Equal bilaterally. Becomes tachypneic and attended CPAP CVS: Afib RVR. HR 80-90. No murmurs ABDOMEN: Abdomen is distended, soft. Incision appears healing well. Ileostomy is functioning well. NGT output decreasing EXTREMITIES: No pedal edema or cyanosis NEURO: Intubated heavily sedated. Moves all extremities, not following commands today. A/P Assessment and Plan ASSESSMENT Septic shock C Diff enteritis/ileitis Acute hypoxemic respiratory failure Atrial fibrillation with RVR Acute kidney injury Transaminitis Ileus Lactic acidemia Probable UTI s/p Left colectomy with colorectal anastomosis, diverting ileostomy, wedge resection of liver metastasis s/p Partial resection of the left ureter with anastomosis and placement of double-J stent Hypertension Tobacco abuse Hypokalemia, hypomagnesemia PLAN: NEURO: - Versed for sedation and vent synchrony - No sedation vacation due to hemodynamic instability RESP: - ACV PEEP 5. FiO2 40%. - DuoNeb q6hr and PRN, vent bundle - Attempt daily SBT CV: - Giorgio-Synephrine to keep map above 65, currently off - Cardioverted several times without success and amiodarone started for A. fib with RVR - Amio DCd 06/24 due to Liver enzyme elevation. Now finally is controlled on Cardizem infusion and Digoxin - IV Heparin discontinued due to Hit screen positive hematology consulted. Currently on Argatroban - s/p Normal saline IV fluids 8L boluses on 06/18/17, No IVF now except TPN - Bumex DCd 06/24 due to increasing creatinine. NS 50 ml per hour for 24 hours starting 06/25 - 2D Echo normal LV function GI: - NPO, Protonix gtt, TPN - Transaminitis most likely secondary to amiodarone and TPN and hypotension, interval worsening AST 1300, ALT 386 - Gastroenterology Dr. Saldana. EGD 06/19. Evidence of esophagitis, and erythematous gastritis in the gastric body and gastric antrum - C Diff positive from ileostomy sample indicating C Diff enteritis. On PO vanc and IV Flagyl - D/W Dr. Tran 06/22. Colonoscopy normal. Ileoscopy severe pseudomembranous ileitis - IV Reglan [address] abdomen pelvis and KUB shows small bowel ileus., KUB 06/23 improving ileus - Continue Entereg : - Monitor renal function closely. Han catheter. UO adequate - IV NS for 24 hours ID: - ID Dr. Espinoza - PO Vancomycin and IV Flagyl for C diff enteritis - F/u blood and urine culture -negative to date HEME: Thrombocytopenia, hit screen positive - Monitor CBC, CMP - HIT screen positive- consulted hematology SMILEY pending - Argatroban started 06/24/17 ENDO: - Electrolyte replacement per protocol - Aggressive K and Mag replacement PROPH: -Bilateral lower extremity SCDs. IV Argatroban, IV Protonix 40 q12 LINES: - Left IJ central line, radial art line CC time 40 min discontinuously and excluding procedures Critically ill and hemodynamically unstable currently on amiodarone for A. fib and Giorgio-Synephrine to maintain blood pressure. updated daily Shiva Segovia MD Jun 25, 2017 13:34
[2017-06-25] MEDS: VASOPRESSIN INJ 40 UNITS in DEXTROSE 5% IN WATER 100ML INJ 98 ML IV SCH ×2 (14:09)
[2017-06-25] MEDS: DIGOXIN 0.5 MG/2 ML VIAL IV PUSH SCH (15:07)
[2017-06-25 15:54] LABS: AUTOMATED NEUTROPHIL # 8.6 TH/MM3 (1.8-7.7); BASOPHIL # 0.1 TH/MM3 (0-0.2); BASOPHIL % 0.6 % (0.0-2.0); EOSINOPHIL # 0.1 TH/MM3 (0-0.4); EOSINOPHIL % 0.5 % (0.0-4.0); HEMATOCRIT 30.6 % (39.0-51.0); LYMPH % 6.2 % (9.0-44.0); LYMPHOCYTE # 0.6 TH/MM3 (1.0-4.8); MEAN CELL VOLUME 82.6 FL (80.0-100.0); MEAN CORPUSCULAR HEMOGLOBIN 28.9 PG (27.0-34.0); MEAN CORPUSCULAR HGB CONC 34.9 % (32.0-36.0); MONO % 6.3 % (0.0-8.0); NEUT % 86.4 % (16.0-70.0); PLATELET COUNT 37 TH/MM3 (150-450); RED CELL DISTRIBUTION WIDTH 15.7 % (11.6-17.2); WHITE BLOOD COUNT 9.9 TH/MM3 (4.0-11.0)
--- NOTE | 2017-06-25 16:05 | HHI.IDPN ---
Note Infectious Disease Note ID COVERAGE Admitted to the hospital with weakness, abdominal pain and nausea. The patient is status post anterior resection of colon and rectal areas and anastomosis along with a diverting ileostomy and also resection of a segment of left ureter with ureteral anastomosis and double-J stent placement three weeks prior. Notes reviewed Sedated. On the vent Low grade fever. Off pressors Afib. Getting vancomycin to the ileostomy, oral vancomycin and Flagyl PAST HISTORY: 1. Hypertension. 2. Left knee surgery. 3. Metastatic colon cancer status post resection and coloanal anastomosis and also resection and re-anastomosis of the left ureter with double-J stent placement. ALLERGIES: 1. CODEINE. MEDICATIONS: I attest that I obtained, updated or reviewed the home and current medications. Vanco po IV Flagyl Vanco irrigation to ileostomy Current Medications Medications (Trade) Dose Ordered Sig/[place] Route Start Time Stop Time Status Last Admin (Mena 5-325 Mg) 1 tab Q4H PRN PO 06/17/17 22:00 06/17/17 22:02 (Mena 5-325 Mg) 2 tab Q4H PRN PO 06/17/17 22:00 06/21/17 20:40 (Zofran Inj) 4 mg Q4H PRN IV PUSH 06/17/17 22:00 06/18/17 09:45 Miscellaneous Information Patient in critical care unit? Ass... [id number] .XX 06/18/17 05:45 06/18/17 05:45 Vasopressin 40 units/Dextrose 100 ml @ 6 mls/hr [id number] IV 06/18/17 15:29 06/19/17 08:09 (Reglan Inj) 5 mg Q8H IV PUSH 06/18/17 17:00 06/25/17 08:40 (Brethine Inj) 1 mg UNSCH PRN SQ 06/18/17 17:15 Potassium Chloride 100 ml @ 50 mls/hr Q2H PRN IV 06/19/17 07:45 06/21/17 03:31 Potassium Chloride 100 ml @ 50 mls/hr Q2H PRN IV 06/19/17 07:45 (K-Lyte Cl Eff) 50 meq UNSCH PRN PO 06/19/17 07:45 Potassium Chloride 100 ml @ 25 mls/hr UNSCH PRN IV 06/19/17 07:45 Potassium Chloride 100 ml @ 50 mls/hr Q2H PRN IV 06/19/17 07:45 06/22/17 17:22 Magnesium Sulfate 4 gm/Sodium Chloride 100 ml @ 50 mls/hr UNSCH PRN IV 06/19/17 07:45 (Mag-Ox) 800 mg UNSCH PRN PO 06/19/17 07:45 Magnesium Sulfate 2 gm/Sodium Chloride 100 ml @ 50 mls/hr UNSCH PRN IV 06/19/17 07:45 (K-Phos) 2,000 mg Q4H PRN PO 06/19/17 07:45 Sodium Phosphate 30 mmol/Sodium Chloride 250 ml @ 42 mls/hr UNSCH PRN IV 06/19/17 07:45 06/20/17 17:06 (K-Phos) 2,000 mg UNSCH PRN PO/TUBE 06/19/17 07:45 Potassium Phosphate 30 mmol/ Sodium Chloride 260 ml @ 42 mls/hr UNSCH PRN IV 06/19/17 07:45 Fat Emulsion Intravenous 250 ml @ 10 mls/hr Q24H IV-CENTRAL 06/19/17 20:00 06/24/17 20:53 (NovoLOG SUPPLEMENTAL SCALE) 1 Q4HR SQ 06/19/17 12:00 06/21/17 20:34 Sodium Chloride 40 meq/Sodium Acetate 59 meq/ Potassium Chloride 40 meq/ Sodium Phosphate 40 meq/Magnesium Chloride 10 meq/ Calcium Chloride 9 meq/ Multivitamins 10 ml/Folic Acid 1 mg/Insulin Human Regular 40 units/ Amino Acids/ Dextrose 2,091.7937 ml @ 50 mls/hr Q24H IV-CENTRAL 06/19/17 20:00 06/24/17 20:53 (VANCOMYCIN for oral use only) 500 mg QID NG 06/19/17 18:00 06/25/17 13:49 Phenylephrine HCl 160 mg/Dextrose 500 ml @ 7.5 mls/hr TITRATE PRN IV 06/19/17 19:15 06/24/17 00:32 (Brethine Inj) 1 mg UNSCH PRN SQ 06/19/17 19:15 (Peridex 0.12% Liq) 15 ml BID@08,20 MT 06/20/17 08:00 06/25/17 08:39 Metronidazole 100 ml @ 100 mls/hr Q8H IV 06/20/17 09:00 06/25/17 08:52 (Duoneb Neb) 1 ampule Q2HR NEB PRN NEB 06/20/17 09:15 (Tylenol 650 Mg/ 20 ml Liq) 650 mg Q6H PRN PO 06/20/17 16:30 06/23/17 03:57 (Protonix Inj) 40 mg Q12H IV PUSH 06/21/17 07:00 06/25/17 05:55 (Entereg) 12 mg Q12HR NG 06/22/17 12:00 06/25/17 08:40 Albumin Human 50 ml @ 60 mls/hr Q12H IV 06/22/17 15:00 06/25/17 15:07 Vancomycin HCl 250 mg/Sodium Chloride 102.5 ml @ 0 mls/hr TID IRRIGATION 06/23/17 13:00 06/25/17 13:50 Midazolam HCl 100 ml @ 2 mls/hr TITRATE PRN IV 06/23/17 16:15 06/25/17 09:17 Argatroban 250 mg/ Sodium Chloride 252.5 ml @ 7.72 mls/hr TITRATE PRN IV 06/24/17 12:00 Future Hold 06/24/17 12:43 Diltiazem HCl 125 mg/Sodium Chloride 125 ml @ 5 mls/hr TITRATE PRN IV 06/24/17 15:00 06/25/17 09:01 (Duoneb Neb) 1 ampule Q6HR NEB NEB 06/24/17 16:00 06/25/17 15:51 (Lanoxin Inj) 0.125 mg DAILY IV PUSH 06/25/17 13:30 06/25/17 15:07 Sodium Chloride 1,000 ml @ 50 mls/hr Q20H IV 06/25/17 13:30 06/26/17 13:29 06/25/17 13:30 OBJECTIVE: Vital Signs Date Time Temp Pulse Resp B/P (MAP) Pulse Ox O2 Delivery O2 Flow Rate FiO2 06/25/17 15:51 98 40 06/25/17 13:13 97 40 06/25/17 12:00 99.0 72 20 102/51 (68) 98 116/48 (70) 06/25/17 12:00 50 06/25/17 12:00 72 06/25/17 10:00 83 06/25/17 09:01 85 93/50 06/25/17 08:05 99 40 06/25/17 08:02 40 06/25/17 08:00 85 06/25/17 08:00 50 06/25/17 08:00 99.0 85 22 97/56 (70) 98 103/49 (67) 06/25/17 06:00 96 06/25/17 04:33 99 40 06/25/17 04:00 96 06/25/17 04:00 40 06/25/17 04:00 99.3 96 24 128/60 (82) 98 96/58 (71) 06/25/17 02:22 104 66 91/58 (69) 98 06/25/17 02:00 94 06/25/17 00:41 98 40 06/25/17 00:00 99.2 101 23 112/57 (75) 97 85/58 (67) 06/25/17 00:00 101 06/25/17 00:00 40 06/24/17 23:12 104 85/57 06/24/17 22:22 109 69 87/58 (68) 97 06/24/17 22:00 115 06/24/17 20:38 97 40 06/24/17 20:00 121 06/24/17 20:00 40 06/24/17 20:00 100.8 121 24 107/58 (74) 96 84/56 (65) 06/24/17 18:22 125 65 100/60 (73) 97 85/55 (65) 06/24/17 18:00 127 06/24/17 18:00 127 70 100/60 (73) 95 82/54 (63) 06/24/17 18:00 127 06/24/17 17:00 137 70 113/70 (84) 95 80/53 (62) Vital Signs Date Time Temp Pulse Resp B/P (MAP) Pulse Ox O2 Delivery O2 Flow Rate FiO2 06/24/17 13:00 169 70 104/75 (85) 99 87/56 (66) 06/24/17 12:03 98 60 06/24/17 12:00 50 06/24/17 12:00 154 06/24/17 12:00 98.8 154 69 111/72 (85) 100 86/56 (66) 06/24/17 11:00 170 65 115/57 (76) 99 86/56 (66) 06/24/17 10:00 166 06/24/17 10:00 166 44 114/66 (82) 100 102/66 (78) 06/24/17 09:00 165 68 142/60 (87) 99 86/59 (68) 06/24/17 08:00 50 06/24/17 08:00 146 06/24/17 08:00 99.2 146 65 115/74 (88) 100 95/65 (75) 06/24/17 07:58 100 100 06/24/17 07:50 149 119/72 06/24/17 07:00 146 63 135/78 (97) 100 106/67 (80) 06/24/17 06:00 161 65 122/86 (98) 100 110/70 (83) 06/24/17 06:00 161 06/24/17 05:30 154 06/24/17 05:30 154 62 142/101 (115) 100 112/71 (85) 06/24/17 05:00 155 66 133/104 (114) 100 90/62 (71) 06/24/17 05:00 155 06/24/17 04:32 100 100 06/24/17 04:00 99.9 171 66 141/78 (99) 100 95/60 (72) 06/24/17 04:00 171 06/24/17 03:30 158 66 133/75 (94) 100 98/59 (72) 06/24/17 03:30 158 06/24/17 03:00 162 67 112/91 (98) 99 78/63 (68) 06/24/17 03:00 162 06/24/17 02:30 177 68 135/87 (103) 96 119/77 (91) 06/24/17 02:30 177 06/24/17 02:00 168 72 114/80 (91) 98 113/69 (84) 06/24/17 02:00 168 06/24/17 01:30 169 64 120/72 (88) 99 111/68 (82) 06/24/17 01:30 169 06/24/17 01:04 168 06/24/17 01:04 168 67 121/90 (100) 98 79/60 (66) 06/24/17 01:00 171 72 188/85 (119) 98 88/60 (69) 06/24/17 01:00 171 06/24/17 00:52 99 40 06/24/17 00:32 164 112/71 06/24/17 00:30 164 06/24/17 00:30 164 77 172/96 (121) 97 77/59 (65) 06/24/17 00:00 158 06/24/17 00:00 158 67 135/80 (98) 100 112/71 (85) 06/23/17 22:00 147 06/23/17 21:49 151 115/65 06/23/17 21:07 100 40 06/23/17 20:00 100.8 133 65 114/60 (78) 100 88/54 (65) 06/23/17 20:00 133 06/23/17 18:00 158 06/23/17 18:00 158 61 122/75 (91) 98 119/64 (82) 06/23/17 17:26 98 40 06/23/17 17:00 116 58 105/68 (80) 99 87/82 (84) 06/23/17 16:00 151 06/23/17 16:00 99.4 151 57 111/68 (82) 98 94/89 (91) 06/23/17 15:51 144 113/67 06/23/17 15:00 159 58 153/86 (108) 98 91/87 (88) 06/23/17 15:00 159 Laboratory Tests Test 06/24/17 06:18 06/25/17 03:45 06/25/17 15:30 White Blood Count 13.3 TH/MM3 13.2 TH/MM3 Red Blood Count 4.50 MIL/MM3 4.13 MIL/MM3 Hemoglobin 12.7 GM/DL 12.1 GM/DL Hematocrit 37.4 % 34.4 % Mean Corpuscular Volume 83.1 FL 83.3 FL Mean Corpuscular Hemoglobin 28.2 PG 29.3 PG Mean Corpuscular Hemoglobin Concent 33.9 % 35.1 % Red Cell Distribution Width 15.6 % 16.0 % Platelet Count 45 TH/MM3 35 TH/MM3 Mean Platelet Volume 9.4 FL 8.8 FL Neutrophils (%) (Auto) 85.6 % 85.1 % Lymphocytes (%) (Auto) 7.1 % 6.4 % Monocytes (%) (Auto) 5.7 % 6.9 % Eosinophils (%) (Auto) 0.5 % 1.0 % Basophils (%) (Auto) 1.1 % 0.6 % Neutrophils # (Auto) 11.4 TH/MM3 11.3 TH/MM3 Lymphocytes # (Auto) 0.9 TH/MM3 0.8 TH/MM3 Monocytes # (Auto) 0.8 TH/MM3 0.9 TH/MM3 Eosinophils # (Auto) 0.1 TH/MM3 0.1 TH/MM3 Basophils # (Auto) 0.2 TH/MM3 0.1 TH/MM3 CBC Comment AUTO DIFF AUTO DIFF Differential Total Cells Counted 100 100 Neutrophils % (Manual) 58 % 70 % Band Neutrophils % 8 % 8 % Lymphocytes % 15 % 9 % Monocytes % 2 % 2 % Neutrophils # (Manual) 11.0 TH/MM3 11.7 TH/MM3 Metamyelocytes 8 % 6 % Myelocytes 6 % 5 % Promyelocytes 3 % Nucleated Red Blood Cells 2 /100 WBC 2 /100 WBC Differential Comment FINAL DIFF MANUAL FINAL DIFF MANUAL Toxic Granulation 1+ Toxic Vacuolation PRESENT Platelet Estimate LOW LOW Platelet Morphology Comment NORMAL NORMAL Laboratory Tests Test 06/23/17 18:50 06/24/17 06:18 06/24/17 15:00 06/25/17 03:45 Blood Urea Nitrogen 29 MG/DL 44 MG/DL Creatinine 1.32 MG/DL 1.73 MG/DL Random Glucose 126 MG/DL 135 MG/DL Total Protein 5.1 GM/DL 4.9 GM/DL Albumin 1.9 GM/DL 1.7 GM/DL Calcium Level 7.3 MG/DL 7.4 MG/DL Magnesium Level 2.4 MG/DL 2.2 MG/DL Alkaline Phosphatase 197 U/L 239 U/L Aspartate Amino Transf (AST/SGOT) 546 U/L 1300 U/L Alanine Aminotransferase (ALT/SGPT) 158 U/L 386 U/L Total Bilirubin 1.3 MG/DL 1.7 MG/DL Sodium Level 131 MEQ/L 134 MEQ/L Potassium Level 3.7 MEQ/L 4.1 MEQ/L Chloride Level 96 MEQ/L 100 MEQ/L Carbon Dioxide Level 26.4 MEQ/L 23.6 MEQ/L Anion Gap 9 MEQ/L 10 MEQ/L Estimat Glomerular Filtration Rate 54 ML/MIN 39 ML/MIN Protein Corrected Calcium 8.4 MG/DL 8.6 MG/DL Iron Level 76 MCG/DL Total Iron Binding Capacity 66 MCG/DL Percent Iron Saturation % Ferritin 5508 NG/ML [id number] 221 mg/dL Tumor Marker Alpha Fetoprotein 3.3 NG/ML Test 06/25/17 15:30 Laboratory Tests Test 06/23/17 06:59 06/24/17 06:18 White Blood Count 16.4 TH/MM3 13.3 TH/MM3 Red Blood Count 4.56 MIL/MM3 4.50 MIL/MM3 Hemoglobin 12.6 GM/DL 12.7 GM/DL Hematocrit 38.4 % 37.4 % Mean Corpuscular Volume 84.1 FL 83.1 FL Mean Corpuscular Hemoglobin 27.6 PG 28.2 PG Mean Corpuscular Hemoglobin Concent 32.9 % 33.9 % Red Cell Distribution Width 16.0 % 15.6 % Platelet Count 67 TH/MM3 45 TH/MM3 Mean Platelet Volume 9.1 FL 9.4 FL Neutrophils (%) (Auto) 85.6 % Lymphocytes (%) (Auto) 7.1 % Monocytes (%) (Auto) 5.7 % Eosinophils (%) (Auto) 0.5 % Basophils (%) (Auto) 1.1 % Neutrophils # (Auto) 11.4 TH/MM3 Lymphocytes # (Auto) 0.9 TH/MM3 Monocytes # (Auto) 0.8 TH/MM3 Eosinophils # (Auto) 0.1 TH/MM3 Basophils # (Auto) 0.2 TH/MM3 CBC Comment AUTO DIFF Differential Total Cells Counted 100 Neutrophils % (Manual) 58 % Band Neutrophils % 8 % Lymphocytes % 15 % Monocytes % 2 % Neutrophils # (Manual) 11.0 TH/MM3 Metamyelocytes 8 % Myelocytes 6 % Promyelocytes 3 % Nucleated Red Blood Cells 2 /100 WBC Differential Comment FINAL DIFF MANUAL Toxic Granulation 1+ Toxic Vacuolation PRESENT Platelet Estimate LOW Platelet Morphology Comment NORMAL Microbiology Date/Time Source Procedure Growth Status 06/20/17 17:11 Blood Peripheral Aerobic Blood Culture - Preliminary NO GROWTH IN 3 DAYS Resulted 06/20/17 17:11 Blood Peripheral Anaerobic Blood Culture - Preliminary NO GROWTH IN 3 DAYS Resulted 06/20/17 17:02 Blood Peripheral Aerobic Blood Culture - Preliminary NO GROWTH IN 3 DAYS Resulted 06/20/17 17:02 Blood Peripheral Anaerobic Blood Culture - Preliminary NO GROWTH IN 3 DAYS Resulted 06/20/17 15:50 Urine Catheterized Urine Urine Culture - Final NO GROWTH IN 48 HOURS. Complete IMAGING: Chest X-Ray 06/25/17 0600 Signed Impressions: Service Date/Time: Sunday, June 25, 2017 04:30 - CONCLUSION: 1. Hazy opacity remains the lung bases left greater than right. 2. The patient remains intubated. Norman Mitchell MD Abdomen X-Ray 06/25/17 0000 Signed Impressions: Service Date/Time: Sunday, June 25, 2017 08:39 - CONCLUSION: 1. Left ureteral stent. 2. Mildly dilated small bowel in the right midabdomen. 3. Ileostomy site in the right lower quadrant. Luca Rivera MD Liver Ultrasound 06/24/17 0000 Signed Impressions: Service Date/Time: Saturday, June 24, 2017 16:38 - CONCLUSION: 1. Small volume ascites. 2. Small right effusion. Pierce Ospina Jr., MD Upper Extremity Ultrasound 06/23/17 0000 Signed Impressions: Service Date/Time: June 20:03 - CONCLUSION: Noncompressibility right cephalic vein and left basilic vein consistent with venous thrombosis Trav Hsieh MD Lower Extremity Ultrasound 06/23/17 0000 Signed Impressions: Service Date/Time: June 20:16 - CONCLUSION: Normal examination. No evidence DVT Trav Hsieh MD Chest X-Ray 06/23/17 0000 Signed Impressions: Service Date/Time: June 16:19 - CONCLUSION: 1. Persistent left basilar opacity representing pleural effusion with associated volume loss and/or consolidation. The effusion is slightly smaller. 2. Persistent atelectasis at the right lung base. Luca Torres MD Chest X-Ray 06/23/17 0000 Signed Impressions: Service Date/Time: June 08:47 - CONCLUSION: 1. Stable chest x-ray with moderate side left pleural effusion with associated volume loss and/or consolidation. 2. Stable right basilar opacity representing either atelectasis, consolidation, or small effusion. Luca Torres MD Abdomen X-Ray 06/23/17 0000 Signed Impressions: Service Date/Time: June 08:08 - CONCLUSION: Improving bowel gas pattern compared to the prior study. The NG tube is in good position in the stomach. Krzysztof Cruz MD PHYSICAL EXAMINATION: GENERAL: Sedated. No acute distress. On the vent. HEAD, EYES, EARS, NOSE, THROAT: No icterus. No nasal drainage. He is orally intubated. NECK: The neck is supple. LUNGS: Decreased breath sounds at the bases HEART: Regular S1-S2 without murmurs, rubs or gallops. ABDOMEN: Diminished bowel sounds. Soft. Ileostomy stoma is pink. No guarding EXTREMITIES: No clubbing or cyanosis or edema. The distal extremities are warm. SKIN: No rash. NEUROLOGIC: Nonfocal. IMPRESSION: Ileitis, S/P surgery for rectal cancer, has diverting ileostomy - stool (+) C diff toxin - biopsy with ulcerations Sepsis, due to C diff infection Acute respiratory failure. Abnormal CXR - probable atelectasis. Leukocytosis better. Low grade temps RECOMMENDATIONS: Continue Flagyl. Continue PO Vancomycin. ALso getting Vanco irrigation to his ileostomy Follow the blood cultures. Monitor temps Monitor the white blood cell count and temperature. Want to avoid unnecessary additional antibiotics if possible. D/W RN Spoke with BarbiMakayla MD Jun 25, 2017 16:05
[2017-06-25 16:07] LABS: HEMO FLAGS AUTO DIFF
[2017-06-25 16:19] LABS: APTT (PATIENT) 124.9 SEC (24.3-30.1)
[2017-06-25 16:38] LABS: BICARBONATE 26.1 MEQ/L (21.0-32.0); CALCIUM-PROTEIN CORRECTED 8.2 MG/DL (8.5-10.1); POTASSIUM 3.6 MEQ/L (3.5-5.1); TOTAL BILIRUBIN ADULT 1.6 MG/DL (0.2-1.0)
[2017-06-25 16:39] LABS: BANDS 7 % (0-6); CORRECTED NUCLEATED RBC 5 /100 WBC (0-0); METAMYELOCYTES 9 % (0-1); MYELOCYTES 2 % (0-0); NEUTROPHIL # MANUAL DIFF 9.2 TH/MM3 (1.8-7.7); PLATELET MORPHOLOGY ENLARGED (NORMAL); POLYS (SEG NEUTROPHILS) 75 % (16-70); SCAN/DIFF FINAL DIFF MANUAL; WBC DIFF SAMPLE 100
[2017-06-25] MEDS: [UNRECOGNIZED DRUG - OTHER] IV-CENTRAL SCH ×10 (20:46)
[2017-06-25] MEDS: SODIUM ACETATE IV-CENTRAL SCH ×10 (20:46)
[2017-06-25] MEDS: FAT EMULSION 20% INJ 250 ML (@10 mls/hr) IV-CENTRAL SCH (20:46)
[2017-06-25] MEDS: SODIUM CHLORIDE IV-CENTRAL SCH ×10 (20:46)
[2017-06-25 22:01] LABS: APTT (PATIENT) 102.8 SEC (24.3-30.1)
[2017-06-26] VITALS (18 sets, daily range): BP systolic 80–124; BP diastolic 52–59; PULSE 75–103; RESP 19–28; TEMP 97.8–99.4; O2SAT 96–100
[2017-06-26] MEDS: metroNIDAZOLE 500 MG INJ 100 ML IV SCH ×3 (00:50→15:54)
[2017-06-26] MEDS: METOCLOPRAMIDE HCL 10 MG/2 ML VIAL IV PUSH SCH ×3 (00:50→15:54)
[2017-06-26] MEDS: VASOPRESSIN INJ 40 UNITS in DEXTROSE 5% IN WATER 100ML INJ 98 ML IV SCH ×4 (02:58→23:29)
[2017-06-26] MEDS: RESP: ALBUTEROL 2.5 MG/IPRATROPIUM 0.5 MG NEB (SCH) NEB ×4 (03:33→19:52)
[2017-06-26] MEDS: INSULIN ASPART SUPPLEMENTAL SCALE SQ SCH ×5 (03:46→20:00)
[2017-06-26] MEDS: ALBUMIN 25% INJ 50 ML IV SCH ×2 (03:46→15:55)
[2017-06-26 05:13] LABS: AUTOMATED NEUTROPHIL # 7.6 TH/MM3 (1.8-7.7); BASOPHIL # 0.1 TH/MM3 (0-0.2); BASOPHIL % 0.6 % (0.0-2.0); EOSINOPHIL # 0.1 TH/MM3 (0-0.4); EOSINOPHIL % 0.7 % (0.0-4.0); HEMATOCRIT 31.5 % (39.0-51.0); LYMPHOCYTE # 0.4 TH/MM3 (1.0-4.8); MEAN CELL VOLUME 83.6 FL (80.0-100.0); MEAN CORPUSCULAR HEMOGLOBIN 27.9 PG (27.0-34.0); MEAN CORPUSCULAR HGB CONC 33.3 % (32.0-36.0); MONO % 6.9 % (0.0-8.0); NEUT % 86.8 % (16.0-70.0); PLATELET COUNT 21 TH/MM3 (150-450); RED BLOOD COUNT 3.76 MIL/MM3 (4.50-5.90); RED CELL DISTRIBUTION WIDTH 15.5 % (11.6-17.2); WHITE BLOOD COUNT 8.7 TH/MM3 (4.0-11.0)
[2017-06-26 05:34] LABS: APTT (PATIENT) 84.3 SEC (24.3-30.1); INTERNATIONAL NORMALIZED RATIO 1.3 RATIO; PROTHROMBIN TIME - PATIENT 14.9 SEC (9.8-11.6)
[2017-06-26 05:35] LABS: BICARBONATE 27.2 MEQ/L (21.0-32.0); POTASSIUM 3.6 MEQ/L (3.5-5.1)
--- NOTE | 2017-06-26 05:54 | RADRPT ---
EXAM DATE/TIME: 06/26/2017 05:05 [facility] COMPARISON: CHEST SINGLE AP, June 25, 2017, 4:30. INDICATIONS : Shortness of breath, possible pulmonary disease. MEDICAL HISTORY : Hypertension. Hypercholesterolemia. SURGICAL HISTORY : Appendectomy. ENCOUNTER: Subsequent ACUITY: 1 week PAIN SCORE: Non-responsive. LOCATION: Bilateral chest FINDINGS: A single AP semierect view of the chest was obtained and again demonstrates endotracheal tube in plac e with the tip 3 cm above the antolin. The nasogastric tube and left internal jugular central venous l ine remain in place. The study is more Midinspiratory with crowding of the lung vasculature and hazy opacity remaining at the lung bases without significant change. Both costophrenic angles appear mildl y blunted. The heart size is at the upper limits of normal. Overlying electrocardiogram leads and oxy gen tubing are present CONCLUSION: 1. The study is more Midinspiratory with no significant change in the hazy opacity of both lung bases . 2. Apparent small pleural effusions. Norman Mitchell MD on June 26, 2017 at 5:52 Board Certified Radiologist. This report was verified electronically.
[2017-06-26] MEDS: PANTOPRAZOLE SODIUM 40 MG VIAL IV PUSH SCH ×2 (06:00→18:35)
[2017-06-26 06:01] LABS: DIGOXIN 1.4 NG/ML (0.8-2.0); TOTAL BILIRUBIN ADULT 1.7 MG/DL (0.2-1.0)
[2017-06-26 06:03] LABS: CALCIUM-PROTEIN CORRECTED 8.6 MG/DL (8.5-10.1)
[2017-06-26 06:29] LABS: HEMO FLAGS AUTO DIFF
[2017-06-26 06:32] LABS: BANDS 6 % (0-6); CORRECTED NUCLEATED RBC 3 /100 WBC (0-0); MYELOCYTES 4 % (0-0); NEUTROPHIL # MANUAL DIFF 8.1 TH/MM3 (1.8-7.7); PLATELET ESTIMATE SMEAR LOW (NORMAL); PLATELET MORPHOLOGY NORMAL (NORMAL); POLYS (SEG NEUTROPHILS) 83 % (16-70); SCAN/DIFF FINAL DIFF MANUAL; TARGET CELLS 1+ (NORMAL); TEARDROP RBCS 1+ (NORMAL); WBC DIFF SAMPLE 100
[2017-06-26] MEDS: SODIUM CHLORIDE 0.9% IRRIGATION SCH ×3 (07:54→18:12)
[2017-06-26] MEDS: VANCOMYCIN IRRIGATION SCH ×3 (07:54→18:12)
[2017-06-26] MEDS: IRR IRRIGATION SCH ×3 (07:54→18:12)
[2017-06-26] MEDS: VANCOMYCIN 500 MG VIAL (FOR ORAL USE ONLY) NG SCH ×4 (07:54→20:43)
[2017-06-26] MEDS: DIGOXIN 0.5 MG/2 ML VIAL IV PUSH SCH (07:55)
[2017-06-26] MEDS: ALVIMOPAN 12 MG CAPSULE NG SCH ×2 (07:56→20:43)
[2017-06-26] MEDS: CHLORHEXIDINE 0.12% (ORAL KIT) 15 ML CUP MT SCH ×2 (07:57→20:49)
[2017-06-26] MEDS: SODIUM CHLOR 0.9% 1000 ML INJ 1,000 ML IV SCH (07:57)
[2017-06-26] MEDS: DILTIAZEM INJ 125 MG in SODIUM CHLORIDE 0.9% INJ 100 ML IV PRN ×2 (09:09→22:26)
--- NOTE | 2017-06-26 09:09 | HHI.GIFU ---
Subjective Remarks Resting in bed, in no apparent distress. Sedated on vent. (Negrita Acosta) Objective Vitals I&O Vital Signs Date Time Temp Pulse Resp B/P (MAP) Pulse Ox O2 Delivery O2 Flow Rate FiO2 06/26/17 06:00 86 06/26/17 04:19 99 40 06/26/17 04:00 98.4 91 26 107/59 (75) 99 106/56 (73) 06/26/17 04:00 40 06/26/17 04:00 91 06/26/17 02:58 101 101/57 06/26/17 02:00 100 06/26/17 00:16 100 40 06/26/17 00:00 40 06/26/17 00:00 85 06/26/17 00:00 98.3 85 21 97/58 (71) 100 100/53 (69) 06/25/17 22:00 82 06/25/17 21:55 79 99/51 06/25/17 20:54 99 40 06/25/17 20:00 40 06/25/17 20:00 98.5 86 22 117/52 (73) 99 97/51 (66) 06/25/17 20:00 86 06/25/17 18:00 88 06/25/17 16:00 40 06/25/17 16:00 74 06/25/17 16:00 98.7 94 22 102/58 (73) 97 98/50 (66) 06/25/17 15:51 98 40 06/25/17 14:00 74 06/25/17 13:13 97 40 06/25/17 12:00 99.0 72 20 102/51 (68) 98 116/48 (70) 06/25/17 12:00 50 06/25/17 12:00 72 06/25/17 10:00 83 06/25/17 09:01 85 93/50 I/O 06/25/17 06/25/17 06/25/17 06/26/17 06/26/17 06/26/17 07:00 15:00 23:00 07:00 15:00 23:00 Intake Total 958 ml 2049.5 ml 1609.5 ml Output Total 350 ml 1400 ml 950 ml Balance 608 ml 649.5 ml 659.5 ml IV Total 958 ml 1413.5 ml 1609.5 ml TPN/PPN 530 ml Lipid 106 ml Output Urine Total 350 ml 800 ml 600 ml Stool Total 600 ml 350 ml Laboratory Laboratory Tests Test 06/25/17 09:49 06/25/17 15:30 06/25/17 20:00 06/26/17 04:45 Prothrombin Time 23.9 14.9 Prothromb Time International Ratio 2.1 1.3 White Blood Count 9.9 8.7 Red Blood Count 3.70 3.76 Hemoglobin 10.7 10.5 Hematocrit 30.6 31.5 Mean Corpuscular Volume 82.6 83.6 Mean Corpuscular Hemoglobin 28.9 27.9 Mean Corpuscular Hemoglobin Concent 34.9 33.3 Red Cell Distribution Width 15.7 15.5 Platelet Count 37 21 Mean Platelet Volume 10.2 8.5 Neutrophils (%) (Auto) 86.4 86.8 Lymphocytes (%) (Auto) 6.2 5.0 Monocytes (%) (Auto) 6.3 6.9 Eosinophils (%) (Auto) 0.5 0.7 Basophils (%) (Auto) 0.6 0.6 Neutrophils # (Auto) 8.6 7.6 Lymphocytes # (Auto) 0.6 0.4 Monocytes # (Auto) 0.6 0.6 Eosinophils # (Auto) 0.1 0.1 Basophils # (Auto) 0.1 0.1 CBC Comment AUTO DIFF AUTO DIFF Differential Total Cells Counted 100 100 Neutrophils % (Manual) 75 83 Band Neutrophils % 7 6 Lymphocytes % 6 1 Monocytes % 1 6 Neutrophils # (Manual) 9.2 8.1 Metamyelocytes 9 Myelocytes 2 4 Nucleated Red Blood Cells 5 3 Differential Comment FINAL DIFF MANUAL FINAL DIFF MANUAL Platelet Morphology Comment ENLARGED NORMAL Activated Partial Thromboplast Time 124.9 102.8 84.3 Blood Urea Nitrogen 45 44 Creatinine 1.52 1.25 Random Glucose 143 140 Total Protein 4.6 4.8 Albumin 1.9 2.0 Calcium Level 6.9 7.3 Alkaline Phosphatase 210 220 Aspartate Amino Transf (AST/SGOT) 856 686 Alanine Aminotransferase (ALT/SGPT) 304 276 Total Bilirubin 1.6 1.7 Sodium Level 137 137 Potassium Level 3.6 3.6 Chloride Level 102 103 Carbon Dioxide Level 26.1 27.2 Anion Gap 9 7 Estimat Glomerular Filtration Rate 46 57 Protein Corrected Calcium 8.2 8.6 Platelet Estimate LOW Target Cells 1+ Tear Drop Cells 1+ Fibrinogen 449 Magnesium Level 2.0 Digoxin Level 1.4 Date/Time Source Procedure Growth Status 06/20/17 17:11 Blood Peripheral Aerobic Blood Culture - Final NO GROWTH IN 5 DAYS Complete 06/20/17 17:11 Blood Peripheral Anaerobic Blood Culture - Final NO GROWTH IN 5 DAYS Complete 06/20/17 15:50 Urine Catheterized Urine Urine Culture - Final NO GROWTH IN 48 HOURS. Complete Imaging Last Impressions Chest X-Ray 06/26/17 0600 Signed Impressions: Service Date/Time: Monday, June 26, 2017 05:05 - CONCLUSION: 1. The study is more Midinspiratory with no significant change in the hazy opacity of both lung bases. 2. Apparent small pleural effusions. Norman Mitchell MD Abdomen X-Ray 06/25/17 0000 Signed Impressions: Service Date/Time: Sunday, June 25, 2017 08:39 - CONCLUSION: 1. Left ureteral stent. 2. Mildly dilated small bowel in the right midabdomen. 3. Ileostomy site in the right lower quadrant. Luca Rivera MD Liver Ultrasound 06/24/17 0000 Signed Impressions: Service Date/Time: Saturday, June 24, 2017 16:38 - CONCLUSION: 1. Small volume ascites. 2. Small right effusion. Pierce Ospina Jr., MD Upper Extremity Ultrasound 06/23/17 0000 Signed Impressions: Service Date/Time: June 20:03 - CONCLUSION: Noncompressibility right cephalic vein and left basilic vein consistent with venous thrombosis Trav Hsieh MD Lower Extremity Ultrasound 06/23/17 0000 Signed Impressions: Service Date/Time: June 20:16 - CONCLUSION: Normal examination. No evidence DVT Trav Hsieh MD Chest CT 06/20/17 0000 Signed Impressions: Service Date/Time: Tuesday, June 20, 2017 07:42 - CONCLUSION: 1. Bilateral effusions and consolidative changes in both lung bases. Bao Lora MD Abdomen/Pelvis CT 06/20/17 0000 Signed Impressions: Service Date/Time: Tuesday, June 20, 2017 07:39 - CONCLUSION: 1. Dilated stomach and multiple dilated loops of small bowel, likely ileus. 2. No definite gastric volvulus. 3. Fat containing right inguinal hernia which also contains small portion of the urinary bladder and minimal fluid. 4. Left-sided nephroureteral stent in good position. 5. Bibasilar consolidation and small pleural effusions. Sarwat Suarez MD Physical Exam HEENT: Normocephalic; atraumatic; no jaundice. CHEST: OETT to vent. Course breath sounds. CARDIAC: Irregular, HR 86. Afib on monitor. B/P 106/56 ABDOMEN: Soft, distended, ileostomy with small liquid in ostomy bag. OGT to LIWS EXTREMITIES: BUE edema. SKIN: Normal; no rash; no jaundice. 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 Receiving TPN (started 06/19), started on amiodarone (started 06/19- off 06/24). LFTs were normal on 06/19. The AST went to 42 on 06/22 and 129 on 06/23. These spiked T. Bili 1.3, AST 546, ALT 158, Alk Phosph 197 on 06/24. Of note he had atrial fibrillation with RVR, HR 160's. His amiodarone was changed to Cardizem and his hr is now controlled, but he did have some hypotensive episodes overnight. This morning, his b/p is 106/56. Most likely, his LFT derangement is secondary to medications (suspect possibly combination of tpn and amiodarone), sepsis, possible congestive hepatopathyrelated to Afib with RVR. 06/25-- (T. Bili 1.7, AST 1300, ALT 386, ALK Phosph 239) . Likely related to shocked liver from hypotensive episodes over night. 06/26 labs improving--(T. Bili 1.7, AST 686, ALT 276, ALK Phosph 220) Liver US (06/24/17)---> Small volume ascites. Small right effusion. ASMA negative. HIPA Joanne positive, HIPA Patient OD 0.504. Alpha 1 Antitrypsin 221. Hepatitis panel pending., [place], AMA, Ceruloplasmin pending. AFP 3.3, Ferritin 5508. Iron saturation > 100%. He received one unit of blood on 06/18. Hfe gene. Recommend avoiding hepatotoxins, hypotensive episodes, and starting enteral feedings when able to from CRS standpoint. - Severe sepsis with lactic acidosis with concern for possible bowel ischemia, CDifficile. Pt presented to ER with abdominal pain, n/v, generalized weakness. CT scan abdomen and pelvis with IV contrast (06/17/17)---> Dilatation of the distal small bowel when compared to proximal. Minimal colonic gas is evidence. Zone of transition appears to be in the right lower quadrant. I can see the transition but not etiology for such. BCx no growth 1 day, Urine cx 50-100,000 CFU/mL mixed mark. GI consulted for egd/ileoscopy to evaluate for bowel ischemia. S/P EGD/Colonoscopy (06/19/17)----> 1. There was LA Class B esophagitis noted 2. There was erythematous gastritis in the gastric body and gastric antrum; 2. 400cc of fluid suctioned from the stomach. ? gastric volvulus 3. Retroflexed views revealed no abnormalities Abnormal small bowel mucosa to 15cm. Pseudomembranous illeitis. ? ischemia. Pathology duodenal mucosa without significant histologic abnormality. moderate chronic gastritis and associated reactive epithelial changes. Negaive for helicobacter pylori, acute enteritis with features of ulceration. CDiff PCR (+) Epid 027 (-). ID following. CT scan abdomen and pelvis without contrast (06/20/17)---> dilated stomach and multiple dilated loops of small bowel, likely ileus. No definite gastric volvulus. Fat containing right ingional hernia which also contains small portion of the urinary bladder and minimal fluid. Left sided nephroureteral stent in good position. bibasilar consolidation and small pleural effusions. S/P Colonoscopy and ileoscopy (06/22/17)----> normal colonoscopy with ileal pseudomembranous colitis. ID is following. Flagyl, Oral Vanco, Vanco enemas via ileostomy. - CDiff. Vanco enemas via ileostomy/Oral vanco/Flagyl. ID following - PSBO/?Gastric volvulus. ? Volvulus on egd. Upper gi series ordered, d/c'd by CRS. CT scan abdomen and pelvis without contrast (06/20/17)---> dilated stomach and multiple dilated loops of small bowel, likely ileus. No definite gastric volvulus. Fat containing right ingional hernia which also contains small portion of the urinary bladder and minimal fluid. Left sided nephroureteral stent in good position. bibasilar consolidation and small pleural effusions. KUB (06/20/17)--> Nasogastric tube distal tip is in the gastric cardia region likely just beyond the GE junction. However, sentinel hole is in the distal esophagus, suggest advancement. Abnormally dilated small bowel obstruction. NGT to LIWS. TPN - Respiratory failure, small pleural effusion. Vent per CCM - NEIL. Creat. 1.25 - Anemia. S/P 1 unit prbc. .5 - Atrial fibrillation with RVR. Was started on amiodarone, but this is being changed to cardizem because his heart rate remained in 160 and he has elevated LFTs. 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 - Metastatic colon cancer. S/P lower anterior resection/coloanal anastomosis, resection and reanastomosis of the left ureter with ureteral anastomosis and double-J stent placement, wedge resection of hepatic metastasis, mobilization of the splenic flexure, and diverting closed loop ileostomy with Dr. Geiger and Dr. Pelayo on 05/26/17. Dr. Noel is his oncologist, but he has not seen him since his surgery PLAN: - NPO - NGT to LIWS - Cont. TPN for now - Cont. PPI - Await hepatitis profile, [place], ama, ceruloplasmin, Hfe gene - Abx per ID recommendations, Vanco enemas, Oral Vanco, Flagyl - Monitor labs - Supportive care - Avoid hepatotoxins - Avoid hypotensive episodes - Further recommendations to follow based on results of above Patient seen and examined by Dr. Guaman and myself and this note is written on his behalf (Negrita Acosta) Physician Comments Patient seen and examined Agree with above Continue with current supportive care Monitor labs (Brijesh Guaman MD) Negrita Acosta Jun 26, 2017 09:09 Brijesh Guaman MD Jun 26, 2017 13:33
[2017-06-26] MEDS: MIDAZOLAM 100 MG/100 ML INJ 100 ML IV PRN ×2 (09:10→20:49)
--- NOTE | 2017-06-26 12:27 | PD.ONC.PN ---
Subjective Subjective Remarks sedated and at bedside Objective Data Date Time Temp Pulse Resp B/P (MAP) Pulse Ox O2 Delivery O2 Flow Rate FiO2 06/26/17 11:59 99 40 06/26/17 10:00 96 06/26/17 09:16 96 40 06/26/17 09:09 92 100/53 06/26/17 08:00 75 06/26/17 08:00 40 06/26/17 08:00 98.3 88 24 124/57 (79) 99 108/52 (70) 06/26/17 06:00 86 06/26/17 04:19 99 40 06/26/17 04:00 98.4 91 26 107/59 (75) 99 106/56 (73) 06/26/17 04:00 40 06/26/17 04:00 91 06/26/17 02:58 101 101/57 06/26/17 02:00 100 06/26/17 00:16 100 40 06/26/17 00:00 40 06/26/17 00:00 85 06/26/17 00:00 98.3 85 21 97/58 (71) 100 100/53 (69) 06/25/17 22:00 82 06/25/17 21:55 79 99/51 06/25/17 20:54 99 40 06/25/17 20:00 40 06/25/17 20:00 98.5 86 22 117/52 (73) 99 97/51 (66) 06/25/17 20:00 86 06/25/17 18:00 88 06/25/17 16:00 40 06/25/17 16:00 74 06/25/17 16:00 98.7 94 22 102/58 (73) 97 98/50 (66) 06/25/17 15:51 98 40 06/25/17 14:00 74 06/25/17 13:13 97 40 06/26/17 06/26/17 06/26/17 07:00 15:00 23:00 Intake Total 1609.5 ml Output Total 950 ml Balance 659.5 ml Result Diagram: 06/26/17 0445 06/26/17 0445 Laboratory Results Laboratory Tests Test 06/25/17 15:30 06/25/17 20:00 06/26/17 04:45 White Blood Count 9.9 TH/MM3 8.7 TH/MM3 Red Blood Count 3.70 MIL/MM3 3.76 MIL/MM3 Hemoglobin 10.7 GM/DL 10.5 GM/DL Hematocrit 30.6 % 31.5 % Mean Corpuscular Volume 82.6 FL 83.6 FL Mean Corpuscular Hemoglobin 28.9 PG 27.9 PG Mean Corpuscular Hemoglobin Concent 34.9 % 33.3 % Red Cell Distribution Width 15.7 % 15.5 % Platelet Count 37 TH/MM3 21 TH/MM3 Mean Platelet Volume 10.2 FL 8.5 FL Neutrophils (%) (Auto) 86.4 % 86.8 % Lymphocytes (%) (Auto) 6.2 % 5.0 % Monocytes (%) (Auto) 6.3 % 6.9 % Eosinophils (%) (Auto) 0.5 % 0.7 % Basophils (%) (Auto) 0.6 % 0.6 % Neutrophils # (Auto) 8.6 TH/MM3 7.6 TH/MM3 Lymphocytes # (Auto) 0.6 TH/MM3 0.4 TH/MM3 Monocytes # (Auto) 0.6 TH/MM3 0.6 TH/MM3 Eosinophils # (Auto) 0.1 TH/MM3 0.1 TH/MM3 Basophils # (Auto) 0.1 TH/MM3 0.1 TH/MM3 CBC Comment AUTO DIFF AUTO DIFF Differential Total Cells Counted 100 100 Neutrophils % (Manual) 75 % 83 % Band Neutrophils % 7 % 6 % Lymphocytes % 6 % 1 % Monocytes % 1 % 6 % Neutrophils # (Manual) 9.2 TH/MM3 8.1 TH/MM3 Metamyelocytes 9 % Myelocytes 2 % 4 % Nucleated Red Blood Cells 5 /100 WBC 3 /100 WBC Differential Comment FINAL DIFF MANUAL FINAL DIFF MANUAL Platelet Morphology Comment ENLARGED NORMAL Activated Partial Thromboplast Time 124.9 SEC 102.8 SEC 84.3 SEC Blood Urea Nitrogen 45 MG/DL 44 MG/DL Creatinine 1.52 MG/DL 1.25 MG/DL Random Glucose 143 MG/DL 140 MG/DL Total Protein 4.6 GM/DL 4.8 GM/DL Albumin 1.9 GM/DL 2.0 GM/DL Calcium Level 6.9 MG/DL 7.3 MG/DL Alkaline Phosphatase 210 U/L 220 U/L Aspartate Amino Transf (AST/SGOT) 856 U/L 686 U/L Alanine Aminotransferase (ALT/SGPT) 304 U/L 276 U/L Total Bilirubin 1.6 MG/DL 1.7 MG/DL Sodium Level 137 MEQ/L 137 MEQ/L Potassium Level 3.6 MEQ/L 3.6 MEQ/L Chloride Level 102 MEQ/L 103 MEQ/L Carbon Dioxide Level 26.1 MEQ/L 27.2 MEQ/L Anion Gap 9 MEQ/L 7 MEQ/L Estimat Glomerular Filtration Rate 46 ML/MIN 57 ML/MIN Protein Corrected Calcium 8.2 MG/DL 8.6 MG/DL Platelet Estimate LOW Target Cells 1+ Tear Drop Cells 1+ Prothrombin Time 14.9 SEC Prothromb Time International Ratio 1.3 RATIO Fibrinogen 449 mg/dL Magnesium Level 2.0 MG/DL Digoxin Level 1.4 NG/ML Imaging Studies Last 24 hours Impressions Chest X-Ray 06/26/17 0600 Signed Impressions: Service Date/Time: Monday, June 26, 2017 05:05 - CONCLUSION: 1. The study is more Midinspiratory with no significant change in the hazy opacity of both lung bases. 2. Apparent small pleural effusions. Norman Mitchell MD Administered Medications Medications (Trade) Dose Ordered Sig/[place] Route PRN Reason Start Time Stop Time Status Last Admin Dose Admin Acetaminophen/ Hydrocodone Bitart (Elba 5-325 Mg) 1 tab Q4H PRN PO PAIN SCALE 1 TO 5 06/17/17 22:00 06/17/17 22:02 Acetaminophen/ Hydrocodone Bitart (Elba 5-325 Mg) 2 tab Q4H PRN PO PAIN SCALE 6 TO 10 06/17/17 22:00 06/21/17 20:40 Ondansetron HCl (Zofran Inj) 4 mg Q4H PRN IV PUSH NAUSEA/VOMITING 06/17/17 22:00 06/18/17 09:45 Miscellaneous Information Patient in critical care unit? Ass... [id number] .XX 06/18/17 05:45 06/18/17 05:45 Vasopressin 40 units/Dextrose 100 ml @ 6 mls/hr [id number] IV 06/18/17 15:29 06/19/17 08:09 Metoclopramide HCl (Reglan Inj) 5 mg Q8H IV PUSH 06/18/17 17:00 06/26/17 07:55 Potassium Chloride 100 ml @ 50 mls/hr Q2H PRN IV For Potassium 2.8 - 3.2 mEq/L 06/19/17 07:45 06/21/17 03:31 Potassium Chloride 100 ml @ 50 mls/hr Q2H PRN IV For Potassium 3.3 - 3.5 mEq/L 06/19/17 07:45 06/22/17 17:22 Sodium Phosphate 30 mmol/Sodium Chloride 250 ml @ 42 mls/hr UNSCH PRN IV For Phosphorus < 2.5 mg/dL 06/19/17 07:45 06/20/17 17:06 Fat Emulsion Intravenous 250 ml @ 10 mls/hr Q24H IV-CENTRAL 06/19/17 20:00 06/25/17 20:46 Insulin Aspart (NovoLOG SUPPLEMENTAL SCALE) 1 Q4HR SQ 06/19/17 12:00 06/21/17 20:34 Sodium Chloride 40 meq/Sodium Acetate 59 meq/ Potassium Chloride 40 meq/ Sodium Phosphate 40 meq/Magnesium Chloride 10 meq/ Calcium Chloride 9 meq/ Multivitamins 10 ml/Folic Acid 1 mg/Insulin Human Regular 40 units/ Amino Acids/ Dextrose 2,091.7937 ml @ 50 mls/hr Q24H IV-CENTRAL 06/19/17 20:00 06/25/17 20:46 Vancomycin HCl (VANCOMYCIN for oral use only) 500 mg QID NG 06/19/17 18:00 06/26/17 07:54 Phenylephrine HCl 160 mg/Dextrose 500 ml @ 7.5 mls/hr TITRATE PRN IV Blood pressure management 06/19/17 19:15 06/24/17 00:32 Chlorhexidine Gluconate (Peridex 0.12% Liq) 15 ml BID@08,20 MT 06/20/17 08:00 06/26/17 07:57 Metronidazole 100 ml @ 100 mls/hr Q8H IV 06/20/17 09:00 06/26/17 07:54 Acetaminophen (Tylenol 650 Mg/ 20 ml Liq) 650 mg Q6H PRN PO fever>100.5 06/20/17 16:30 06/23/17 03:57 Pantoprazole Sodium (Protonix Inj) 40 mg Q12H IV PUSH 06/21/17 07:00 06/26/17 06:00 Alvimopan (Entereg) 12 mg Q12HR NG 06/22/17 12:00 06/26/17 07:56 Albumin Human 50 ml @ 60 mls/hr Q12H IV 06/22/17 15:00 06/26/17 03:46 Vancomycin HCl 250 mg/Sodium Chloride 102.5 ml @ 0 mls/hr TID IRRIGATION 06/23/17 13:00 06/26/17 07:54 Midazolam HCl 100 ml @ 2 mls/hr TITRATE PRN IV SEDATION 06/23/17 16:15 06/26/17 09:10 Argatroban 250 mg/ Sodium Chloride 252.5 ml @ 7.72 mls/hr TITRATE PRN IV aPTT < 50 06/24/17 12:00 Future Hold 06/24/17 12:43 Diltiazem HCl 125 mg/Sodium Chloride 125 ml @ 5 mls/hr TITRATE PRN IV Tachycardia 06/24/17 15:00 06/26/17 09:09 Albuterol/ Ipratropium (Duoneb Neb) 1 ampule Q6HR NEB NEB 06/24/17 16:00 06/26/17 09:24 Digoxin (Lanoxin Inj) 0.125 mg DAILY IV PUSH 06/25/17 13:30 06/26/17 07:55 Sodium Chloride 1,000 ml @ 50 mls/hr Q20H IV 06/25/17 13:30 06/26/17 13:29 06/26/17 07:57 Objective Remarks GENERAL: intubated SKIN: Warm and dry. HEAD: Normocephalic. EYES: No scleral icterus. No injection or drainage. NECK: Supple, trachea midline. No JVD or lymphadenopathy. LYMPHATIC: No adenopathy. CARDIOVASCULAR: Regular rate and rhythm without murmurs. RESPIRATORY: Breath sounds equal bilaterally. No accessory muscle use. GASTROINTESTINAL: Abdomen soft, non-tender, nondistended. EXTREMITIES: trace edema MUSCULOSKELETAL: muscle wasting . NEUROLOGICAL: No obvious focal deficit. Awake, alert, and oriented x3. PSYCHIATRIC: sedated Assessment/Plan Assessment Mr. Armendariz is a 67-year-old male who was recently diagnosed with metastatic adenocarcinoma of the rectosigmoid colon and had resection of a metastatic deposit to the liver. He is status post primary surgical resection as well as wedge resection of a metastatic deposit to the liver and now has C difficile colitis. 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 Plan 1: patient has persistent elevation in PTT and would be considered anticoagulated. This is a result of the prolonged half life from the argatroban as a result of hepatic failure and is finally beginning to improve and should continue to do so. I am reluctant to resume argatroban given recent events which resulted in prolonged anticoagulation at levels which are not desirable. Presently I see no further thrombosis and PTT of 84 is therapeutic. Attending Statement 1: discontinue argatroban 2: follow cbc plat and look for evidence of thrombosis 3: if anticoagulation resumed would consider resuming arixtra as not metabolized by liver but excreted by kidneys and renal function okay 4: continue vanco/flagyl to tx C DIF. 5> discussed with . Harpreet Hurley MD Jun 26, 2017 12:27
--- NOTE | 2017-06-26 13:13 | HHI.PR ---
Subjective Remarks BP stable off of Giorgio. Platelets decreased more today to .Remains sedated. Urine ok. More liquid stool. Vanco irrigations of Ileum continue. Decreased N/G output. NSR on Cardizem and Digoxin. WBC down. Sepsis appears to be controlled. Objective Vital Signs Date Time Temp Pulse Resp B/P (MAP) Pulse Ox O2 Delivery O2 Flow Rate FiO2 06/26/17 11:59 99 40 06/26/17 10:00 96 06/26/17 09:16 96 40 06/26/17 09:09 92 100/53 06/26/17 08:00 75 06/26/17 08:00 40 06/26/17 08:00 98.3 88 24 124/57 (79) 99 108/52 (70) 06/26/17 06:00 86 06/26/17 04:19 99 40 06/26/17 04:00 98.4 91 26 107/59 (75) 99 106/56 (73) 06/26/17 04:00 40 06/26/17 04:00 91 06/26/17 02:58 101 101/57 06/26/17 02:00 100 06/26/17 00:16 100 40 06/26/17 00:00 40 06/26/17 00:00 85 06/26/17 00:00 98.3 85 21 97/58 (71) 100 100/53 (69) 06/25/17 22:00 82 06/25/17 21:55 79 99/51 06/25/17 20:54 99 40 06/25/17 20:00 40 06/25/17 20:00 98.5 86 22 117/52 (73) 99 97/51 (66) 06/25/17 20:00 86 06/25/17 18:00 88 06/25/17 16:00 40 06/25/17 16:00 74 06/25/17 16:00 98.7 94 22 102/58 (73) 97 98/50 (66) 06/25/17 15:51 98 40 06/25/17 14:00 74 06/25/17 13:13 97 40 I/O 06/25/17 06/25/17 06/25/17 06/26/17 06/26/17 06/26/17 07:00 15:00 23:00 07:00 15:00 23:00 Intake Total 958 ml 2049.5 ml 1609.5 ml Output Total 350 ml 1400 ml 950 ml Balance 608 ml 649.5 ml 659.5 ml IV Total 958 ml 1413.5 ml 1609.5 ml TPN/PPN 530 ml Lipid 106 ml Output Urine Total 350 ml 800 ml 600 ml Stool Total 600 ml 350 ml Result Diagram: 06/26/1744406/26/17444 Objective Remarks VS-S NSR Gen: Pt comfortable Abd: Soft. Mild distention. Wound healed. Ileostomy with clear outputs. Ext: No edema Labs: Platelets down more to 21K. I&Os: OK Assessment and Plan Assessment and Plan Stable at present. Appears to be improving D/W . Continue oral Vanco and Flagyl. Started Vancomycin 250mg/100cc irrigating TID thru Ileostomy. Seems somewhat better. Tube feeds to obviate need for TPN and to recolinize. Per [facility] Luca Geiger MD Jun 26, 2017 13:13
--- NOTE | 2017-06-26 13:28 | HHI.CCPN ---
Subjective Remarks/Hospital Course The patient is a 67-year-old male with past medical history of hypertension, metastatic colon cancer, tobacco abuse, who, about 3 weeks ago underwent low anterior resection with low colorectal anastomosis, diverting ileostomy, and resection of a segment of the left ureter with ureteral anastomosis and double- J stent placement. He presented yesterday with 5 day history of abdominal discomfort and increasing weakness. No history of high output from ileostomy. He was admitted to the colorectal surgery for dehydration and probable UTI. He was placed on ciprofloxacin and IV hydration. According to Dr. Geiger's note it was difficult dissection/resection colon mass because of the pelvic sidewall adherence and the adherence to the left ureter. A portion of ureter was resected due to possibility of tumor infiltration, and Dr. Augustine Pelayo re- anastomosed the ureter and placed left-sided double-J stent. Also 1 cm hepatic metastasis in his liver that was excised. Hospitalist consultation was requested for medical management and evaluation of tachycardia today. He was seen by Dr. Jay and was placed on infusion of Cardizem for heart rate 140s. Patient became hypotensive with systolic blood pressure early 90s. Lab work showed WBC 14.5 with 44% bands, creat increase from 1.2 to 1.4 and severely increased lactate at 8 from admission lactate of 2.6. CT of the abdomen pelvis done yesterday showed probable small bowel ileus. I evaluated the patient in the ICU. He is tachycardic in 140s, hypotensive and systolic blood pressure in mid 80s. Clinically appears very dehydrated, an NG tube was placed with approximately 3 L of some coffee-ground output. ABG shows a base excess of -10 and bicarbonate 12. I have ordered 4 liter normal saline boluses start 1 amp of bicarbonate, discontinued the LR infusion, and started bicarb gtt. Discontinue ciprofloxacin, started Zosyn every 6 hours, vancomycin 1 g 1. His elevated lactic acid and bandemia most likely secondary to severe sepsis, ileus, and severe dehydration. Serial lactate is ordered SUBJ 06/19: Lactic acid remains elevated at 6.6 despite getting 9 L of crystalloid boluses in last 24 hours. Tachycardia has improved heart rate in 110s. Remains on vasopressin at 0.04 units/min. Urine output almost 1200 mL overnight, OGT initial output was almost 3 L when placed yesterday a.m. Overnight had 550 mL of greenish brown fluid output. EGD pending today rule out gastric ischemia per Dr. Romero. Apparently Flex sig was negative post op in Dr. Geiger's office 06/20: Developed A. fib with RVR. Heart rate 200. Hemodynamically unstable, synchronized cardioversion attempted by Dr. Morales 100 200 J. Given 3 g mag sulfate and 80 mEq KCl 1, 0.5 digoxin 1 and started on amiodarone and Giorgio- Synephrine. Intubated due to hemodynamic instability. Currently remains sedated. Currently on Giorgio-Synephrine 80 mcg/m, and amiodarone. CT chest abdomen pelvis again confirms gastric and small bowel distention/ileus. UO 1800 ml in 24 hours 06/21: Remains critically ill, intubated sedated, on 100 mcg/min neosynpehrine. HR better controlled. NG output 1500, UO >1.4L. Am labs pending. Ileostomy sample positive for C Diff on PO vanc IV Flagyl. 06/22: Remains intubated sedated. Urine output 3000 mL with Bumex. NGT [address] Geiger did colonoscopy which was normal. Ileoscopy showed pseudomembranous colitis. Currently on 200 mcg/min of neosynephrine. Afib with RVR HR in 140's 06/23: Remains intubated sedated, remains in atrial fibrillation with RVR. Still requiring high doses of Giorgio-Synephrine at 190 mcg/min. UO 2.5L. chest x- ray showed bilateral large effusions. KUB shows improving small bowel distention. WBC count is slightly improved 06/24: Unable to control HR. Repeat shock x3 today. remains in atrial fibrillation with RVR rates 160-170 intermittently. Remains on amiodarone but will discontinued due to elevation of liver enzymes AST 546 ALT 158. (GI notified). Start Cardizem infusion and also give Surjit 0.5 mg 1. Platelet count continues to drop from 67 to today 45. Hematology following will start of Argatroban today. Creatinine has slightly increased to 1.3 to will DC Bumex infusion 06/25: Patient remains intubated sedated critically ill. Heart rate controlled for the first time since atrial fibrillation started. Heart rate remains 80- 90. Urine output 1200 mL in 24 hours but BUN/creatinine increasing 44/1.7. I will hydrate with 50 mL/hr normal saline for 24 hours. Transaminitis increasing AST 1300 ALT 386. Ultrasound of the liver unremarkable GI following 06/26: PTT elevated due to Argatorban/Liver failure. Dr. Hurley has DCd argatroban. SMILEY pending. Pl count is 21. Currently in sinus rhythm on Cardizem infusion. Not on any pressors. Creatinine improved to 1.2. Urine output adequate. Becomes very tachypneic on attempted CPAP. Discussed with Dr. Geiger Will Start Trickle Tube Feeds Objective Vital Signs Date Time Temp Pulse Resp B/P (MAP) Pulse Ox O2 Delivery O2 Flow Rate FiO2 06/26/17 11:59 99 40 06/26/17 10:00 96 06/26/17 09:09 100/53 06/26/17 08:00 98.3 24 06/22/17 07:00 Mechanical Ventilator Nasal Cannula Simple Mask Intake and Output 06/26/17 06/26/17 06/27/17 08:00 16:00 00:00 Intake Total 1609.5 ml Output Total 950 ml Balance 659.5 ml Result Diagram: 06/26/17 0445 06/26/[address] abdomen pelvis shows distal small bowel dilatation Chest x-ray no acute findings KUB shows ileus Objective Remarks Infusions: Cardizem Giorgio-Synephrine -OFF Argatroban OFF Versed TPN GENERAL: Well-developed and well-nourished male intubated sedated SKIN: Warm and dry. HEENT: Extraocular muscles intact. NECK: The neck is supple. LIJ central line in place CHEST:Few coarse rhonchi Equal bilaterally. Becomes tachypneic on CPAP CVS: Afib now NSR. HR 80-90. No murmurs ABDOMEN: Abdomen is slightly distended, soft. Incision appears healing well. Ileostomy is functioning well. NGT output decreasing EXTREMITIES: No pedal edema or cyanosis NEURO: Intubated heavily sedated. Moves all extremities, not following commands A/P Assessment and Plan ASSESSMENT Severe sepsis C Diff enteritis/ileitis Acute hypoxemic respiratory failure Atrial fibrillation with RVR, now NSR Acute kidney injury Transaminitis Ileus Lactic acidemia Thrombocytopenia/probable HIT Probable UTI s/p Left colectomy with colorectal anastomosis, diverting ileostomy, wedge resection of liver metastasis s/p Partial resection of the left ureter with anastomosis and placement of double-J stent Hypertension Tobacco abuse Hypokalemia, hypomagnesemia PLAN: NEURO: - Versed for sedation and vent synchrony - Attempt daily sedation vacation RESP: - ACV PEEP 5. FiO2 40%. - DuoNeb q6hr and PRN, vent bundle - Attempt daily SBT, continues to fail due to severe tachypnea on pressure support - Bilateral small pleural effusion on chest x-ray CV: - Cardioverted several times without success and amiodarone started for A. fib with RVR - Amio DCd 06/24 due to Liver enzyme elevation. Now NSR on Cardizem infusion and Digoxin - IV Heparin discontinued due to Hit screen positive hematology consulted. Argatroban DCd today by Dr. Hurley - s/p Normal saline IV fluids 8L boluses on 06/18/17, No IVF now except TPN - Bumex DCd 06/24 due to increasing creatinine. NS 50 ml per hour for 24 hours 06/25-06/26. Creatinine improved to 1.2 - 2D Echo normal LV function GI: - NPO, Protonix gtt, TPN. D/W Dr. Geiger, start Trickle feeds today - Transaminitis most likely secondary to amiodarone and TPN and hypotension, interval worsening AST 1300, ALT 386, today improved to 686/276 - Gastroenterology Dr. Saldana. EGD 06/19. Evidence of esophagitis, and erythematous gastritis in the gastric body and gastric antrum - C Diff positive from ileostomy sample indicating C Diff enteritis. On PO vanc and IV Flagyl - Dr. Tran 06/22. Colonoscopy normal. Ileoscopy severe pseudomembranous ileitis - IV Reglan [address] Prev CT abdomen pelvis and KUB shows small bowel ileus., KUB 06/23 improving ileus - Continue Entereg : - Monitor renal function closely. Han catheter. UO adequate - IV NS for 24 hours, stop today. Creat has improved ID: - ID Dr. Espinoza - PO Vancomycin and IV Flagyl for C diff enteritis - F/u blood and urine culture -negative to date HEME: Thrombocytopenia, hit screen positive - Monitor CBC, CMP - HIT screen positive- consulted hematology SMILEY pending - Argatroban started 06/24/17, DCd 06/26/[address] Hurley - According to Dr. Hurley elevated PTT secondary to decreased liver clearance of argatroban - Once PTT normal, use Arixtra. Check in am 06/27/17 ENDO: - Electrolyte replacement per protocol - Aggressive K and Mag replacement PROPH: -Bilateral lower extremity SCDs. No anticoagulation until PT/PTT checked 06/27 , IV Protonix 40 q12 LINES: - Left IJ central line, radial art line CC time 40 min discontinuously and excluding procedures Critically ill stable. Multi organ involvement makes diagnosis still guarded. D/ W Dr. Geiger and Dr. Guaman. Updated patient's LucaShiva MD Jun 26, 2017 13:28
--- NOTE | 2017-06-26 13:33 | HHI.IDPN ---
Note Infectious Disease Note ID COVERAGE Admitted to the hospital with weakness, abdominal pain and nausea. The patient is status post anterior resection of colon and rectal areas and anastomosis along with a diverting ileostomy and also resection of a segment of left ureter with ureteral anastomosis and double-J stent placement three weeks prior. Notes reviewed Sedated. On the vent Temps better Has a lot of liquid stool recorded, but he is getting VAnco irrigation to his ileostomy Getting vancomycin to the ileostomy, oral vancomycin and Flagyl PAST HISTORY: 1. Hypertension. 2. Left knee surgery. 3. Metastatic colon cancer status post resection and coloanal anastomosis and also resection and re-anastomosis of the left ureter with double-J stent placement. ALLERGIES: 1. CODEINE. MEDICATIONS: I attest that I obtained, updated or reviewed the home and current medications. Vanco po IV Flagyl Vanco irrigation to ileostomy Current Medications Medications (Trade) Dose Ordered Sig/[place] Route Start Time Stop Time Status Last Admin (Padroni 5-325 Mg) 1 tab Q4H PRN PO 06/17/17 22:00 06/17/17 22:02 (Padroni 5-325 Mg) 2 tab Q4H PRN PO 06/17/17 22:00 06/21/17 20:40 (Zofran Inj) 4 mg Q4H PRN IV PUSH 06/17/17 22:00 06/18/17 09:45 Miscellaneous Information Patient in critical care unit? Ass... [id number] .XX 06/18/17 05:45 06/18/17 05:45 Vasopressin 40 units/Dextrose 100 ml @ 6 mls/hr [id number] IV 06/18/17 15:29 06/19/17 08:09 (Reglan Inj) 5 mg Q8H IV PUSH 06/18/17 17:00 06/26/17 07:55 (Brethine Inj) 1 mg UNSCH PRN SQ 06/18/17 17:15 Potassium Chloride 100 ml @ 50 mls/hr Q2H PRN IV 06/19/17 07:45 06/21/17 03:31 Potassium Chloride 100 ml @ 50 mls/hr Q2H PRN IV 06/19/17 07:45 (K-Lyte Cl Eff) 50 meq UNSCH PRN PO 06/19/17 07:45 Potassium Chloride 100 ml @ 25 mls/hr UNSCH PRN IV 06/19/17 07:45 Potassium Chloride 100 ml @ 50 mls/hr Q2H PRN IV 06/19/17 07:45 06/22/17 17:22 Magnesium Sulfate 4 gm/Sodium Chloride 100 ml @ 50 mls/hr UNSCH PRN IV 06/19/17 07:45 (Mag-Ox) 800 mg UNSCH PRN PO 06/19/17 07:45 Magnesium Sulfate 2 gm/Sodium Chloride 100 ml @ 50 mls/hr UNSCH PRN IV 06/19/17 07:45 (K-Phos) 2,000 mg Q4H PRN PO 06/19/17 07:45 Sodium Phosphate 30 mmol/Sodium Chloride 250 ml @ 42 mls/hr UNSCH PRN IV 06/19/17 07:45 06/20/17 17:06 (K-Phos) 2,000 mg UNSCH PRN PO/TUBE 06/19/17 07:45 Potassium Phosphate 30 mmol/ Sodium Chloride 260 ml @ 42 mls/hr UNSCH PRN IV 06/19/17 07:45 Fat Emulsion Intravenous 250 ml @ 10 mls/hr Q24H IV-CENTRAL 06/19/17 20:00 06/25/17 20:46 (NovoLOG SUPPLEMENTAL SCALE) 1 Q4HR SQ 06/19/17 12:00 06/21/17 20:34 Sodium Chloride 40 meq/Sodium Acetate 59 meq/ Potassium Chloride 40 meq/ Sodium Phosphate 40 meq/Magnesium Chloride 10 meq/ Calcium Chloride 9 meq/ Multivitamins 10 ml/Folic Acid 1 mg/Insulin Human Regular 40 units/ Amino Acids/ Dextrose 2,091.7937 ml @ 50 mls/hr Q24H IV-CENTRAL 06/19/17 20:00 06/25/17 20:46 (VANCOMYCIN for oral use only) 500 mg QID NG 06/19/17 18:00 06/26/17 13:00 Phenylephrine HCl 160 mg/Dextrose 500 ml @ 7.5 mls/hr TITRATE PRN IV 06/19/17 19:15 06/24/17 00:32 (Brethine Inj) 1 mg UNSCH PRN SQ 06/19/17 19:15 (Peridex 0.12% Liq) 15 ml BID@08,20 MT 06/20/17 08:00 06/26/17 07:57 Metronidazole 100 ml @ 100 mls/hr Q8H IV 06/20/17 09:00 06/26/17 07:54 (Duoneb Neb) 1 ampule Q2HR NEB PRN NEB 06/20/17 09:15 (Tylenol 650 Mg/ 20 ml Liq) 650 mg Q6H PRN PO 06/20/17 16:30 06/23/17 03:57 (Protonix Inj) 40 mg Q12H IV PUSH 06/21/17 07:00 06/26/17 06:00 (Entereg) 12 mg Q12HR NG 06/22/17 12:00 06/26/17 07:56 Albumin Human 50 ml @ 60 mls/hr Q12H IV 06/22/17 15:00 06/26/17 03:46 Vancomycin HCl 250 mg/Sodium Chloride 102.5 ml @ 0 mls/hr TID IRRIGATION 06/23/17 13:00 06/26/17 13:04 Midazolam HCl 100 ml @ 2 mls/hr TITRATE PRN IV 06/23/17 16:15 06/26/17 09:10 Diltiazem HCl 125 mg/Sodium Chloride 125 ml @ 5 mls/hr TITRATE PRN IV 06/24/17 15:00 06/26/17 09:09 (Duoneb Neb) 1 ampule Q6HR NEB NEB 06/24/17 16:00 06/26/17 09:24 (Lanoxin Inj) 0.125 mg DAILY IV PUSH 06/25/17 13:30 06/26/17 07:55 OBJECTIVE: Vital Signs Date Time Temp Pulse Resp B/P (MAP) Pulse Ox O2 Delivery O2 Flow Rate FiO2 06/26/17 11:59 99 40 06/26/17 10:00 96 06/26/17 09:16 96 40 06/26/17 09:09 92 100/53 06/26/17 08:00 75 06/26/17 08:00 40 06/26/17 08:00 98.3 88 24 124/57 (79) 99 108/52 (70) 06/26/17 06:00 86 06/26/17 04:19 99 40 06/26/17 04:00 98.4 91 26 107/59 (75) 99 106/56 (73) 06/26/17 04:00 40 06/26/17 04:00 91 06/26/17 02:58 101 101/57 06/26/17 02:00 100 06/26/17 00:16 100 40 06/26/17 00:00 40 06/26/17 00:00 85 06/26/17 00:00 98.3 85 21 97/58 (71) 100 100/53 (69) 06/25/17 22:00 82 06/25/17 21:55 79 99/51 06/25/17 20:54 99 40 06/25/17 20:00 40 06/25/17 20:00 98.5 86 22 117/52 (73) 99 97/51 (66) 06/25/17 20:00 86 06/25/17 18:00 88 06/25/17 16:00 40 06/25/17 16:00 74 06/25/17 16:00 98.7 94 22 102/58 (73) 97 98/50 (66) 06/25/17 15:51 98 40 06/25/17 14:00 74 Vital Signs Date Time Temp Pulse Resp B/P (MAP) Pulse Ox O2 Delivery O2 Flow Rate FiO2 06/25/17 15:51 98 40 06/25/17 13:13 97 40 06/25/17 12:00 99.0 72 20 102/51 (68) 98 116/48 (70) 06/25/17 12:00 50 06/25/17 12:00 72 06/25/17 10:00 83 06/25/17 09:01 85 93/50 06/25/17 08:05 99 40 06/25/17 08:02 40 06/25/17 08:00 85 06/25/17 08:00 50 06/25/17 08:00 99.0 85 22 97/56 (70) 98 103/49 (67) 06/25/17 06:00 96 06/25/17 04:33 99 40 06/25/17 04:00 96 06/25/17 04:00 40 06/25/17 04:00 99.3 96 24 128/60 (82) 98 96/58 (71) 06/25/17 02:22 104 66 91/58 (69) 98 06/25/17 02:00 94 06/25/17 00:41 98 40 06/25/17 00:00 99.2 101 23 112/57 (75) 97 85/58 (67) 06/25/17 00:00 101 06/25/17 00:00 40 06/24/17 23:12 104 85/57 06/24/17 22:22 109 69 87/58 (68) 97 06/24/17 22:00 115 06/24/17 20:38 97 40 06/24/17 20:00 121 06/24/17 20:00 40 06/24/17 20:00 100.8 121 24 107/58 (74) 96 84/56 (65) 06/24/17 18:22 125 65 100/60 (73) 97 85/55 (65) 06/24/17 18:00 127 06/24/17 18:00 127 70 100/60 (73) 95 82/54 (63) 06/24/17 18:00 127 06/24/17 17:00 137 70 113/70 (84) 95 80/53 (62) Laboratory Tests Test 06/25/17 03:45 06/25/17 15:30 06/26/17 04:45 White Blood Count 13.2 TH/MM3 9.9 TH/MM3 8.7 TH/MM3 Red Blood Count 4.13 MIL/MM3 3.70 MIL/MM3 3.76 MIL/MM3 Hemoglobin 12.1 GM/DL 10.7 GM/DL 10.5 GM/DL Hematocrit 34.4 % 30.6 % 31.5 % Mean Corpuscular Volume 83.3 FL 82.6 FL 83.6 FL Mean Corpuscular Hemoglobin 29.3 PG 28.9 PG 27.9 PG Mean Corpuscular Hemoglobin Concent 35.1 % 34.9 % 33.3 % Red Cell Distribution Width 16.0 % 15.7 % 15.5 % Platelet Count 35 TH/MM3 37 TH/MM3 21 TH/MM3 Mean Platelet Volume 8.8 FL 10.2 FL 8.5 FL Neutrophils (%) (Auto) 85.1 % 86.4 % 86.8 % Lymphocytes (%) (Auto) 6.4 % 6.2 % 5.0 % Monocytes (%) (Auto) 6.9 % 6.3 % 6.9 % Eosinophils (%) (Auto) 1.0 % 0.5 % 0.7 % Basophils (%) (Auto) 0.6 % 0.6 % 0.6 % Neutrophils # (Auto) 11.3 TH/MM3 8.6 TH/MM3 7.6 TH/MM3 Lymphocytes # (Auto) 0.8 TH/MM3 0.6 TH/MM3 0.4 TH/MM3 Monocytes # (Auto) 0.9 TH/MM3 0.6 TH/MM3 0.6 TH/MM3 Eosinophils # (Auto) 0.1 TH/MM3 0.1 TH/MM3 0.1 TH/MM3 Basophils # (Auto) 0.1 TH/MM3 0.1 TH/MM3 0.1 TH/MM3 CBC Comment AUTO DIFF AUTO DIFF AUTO DIFF Differential Total Cells Counted 100 100 100 Neutrophils % (Manual) 70 % 75 % 83 % Band Neutrophils % 8 % 7 % 6 % Lymphocytes % 9 % 6 % 1 % Monocytes % 2 % 1 % 6 % Neutrophils # (Manual) 11.7 TH/MM3 9.2 TH/MM3 8.1 TH/MM3 Metamyelocytes 6 % 9 % Myelocytes 5 % 2 % 4 % Nucleated Red Blood Cells 2 /100 WBC 5 /100 WBC 3 /100 WBC Differential Comment FINAL DIFF MANUAL FINAL DIFF MANUAL FINAL DIFF MANUAL Platelet Estimate LOW LOW Platelet Morphology Comment NORMAL ENLARGED NORMAL Target Cells 1+ Tear Drop Cells 1+ Laboratory Tests Test 06/24/17 15:00 06/25/17 03:45 06/25/17 15:30 06/26/17 04:45 Iron Level 76 MCG/DL Total Iron Binding Capacity 66 MCG/DL Percent Iron Saturation % Ferritin 5508 NG/ML [id number] 221 mg/dL Tumor Marker Alpha Fetoprotein 3.3 NG/ML Blood Urea Nitrogen 44 MG/DL 45 MG/DL 44 MG/DL Creatinine 1.73 MG/DL 1.52 MG/DL 1.25 MG/DL Random Glucose 135 MG/DL 143 MG/DL 140 MG/DL Total Protein 4.9 GM/DL 4.6 GM/DL 4.8 GM/DL Albumin 1.7 GM/DL 1.9 GM/DL 2.0 GM/DL Calcium Level 7.4 MG/DL 6.9 MG/DL 7.3 MG/DL Magnesium Level 2.2 MG/DL 2.0 MG/DL Alkaline Phosphatase 239 U/L 210 U/L 220 U/L Aspartate Amino Transf (AST/SGOT) 1300 U/L 856 U/L 686 U/L Alanine Aminotransferase (ALT/SGPT) 386 U/L 304 U/L 276 U/L Total Bilirubin 1.7 MG/DL 1.6 MG/DL 1.7 MG/DL Sodium Level 134 MEQ/L 137 MEQ/L 137 MEQ/L Potassium Level 4.1 MEQ/L 3.6 MEQ/L 3.6 MEQ/L Chloride Level 100 MEQ/L 102 MEQ/L 103 MEQ/L Carbon Dioxide Level 23.6 MEQ/L 26.1 MEQ/L 27.2 MEQ/L Anion Gap 10 MEQ/L 9 MEQ/L 7 MEQ/L Estimat Glomerular Filtration Rate 39 ML/MIN 46 ML/MIN 57 ML/MIN Protein Corrected Calcium 8.6 MG/DL 8.2 MG/DL 8.6 MG/DL Microbiology Date/Time Source Procedure Growth Status 06/20/17 17:11 Blood Peripheral Aerobic Blood Culture - Preliminary NO GROWTH IN 3 DAYS Resulted 06/20/17 17:11 Blood Peripheral Anaerobic Blood Culture - Preliminary NO GROWTH IN 3 DAYS Resulted 06/20/17 17:02 Blood Peripheral Aerobic Blood Culture - Preliminary NO GROWTH IN 3 DAYS Resulted 06/20/17 17:02 Blood Peripheral Anaerobic Blood Culture - Preliminary NO GROWTH IN 3 DAYS Resulted 06/20/17 15:50 Urine Catheterized Urine Urine Culture - Final NO GROWTH IN 48 HOURS. Complete IMAGING: Chest X-Ray 06/25/17 0600 Signed Impressions: Service Date/Time: Sunday, June 25, 2017 04:30 - CONCLUSION: 1. Hazy opacity remains the lung bases left greater than right. 2. The patient remains intubated. Norman Mitchell MD Abdomen X-Ray 06/25/17 0000 Signed Impressions: Service Date/Time: Sunday, June 25, 2017 08:39 - CONCLUSION: 1. Left ureteral stent. 2. Mildly dilated small bowel in the right midabdomen. 3. Ileostomy site in the right lower quadrant. Luca Rivera MD Liver Ultrasound 06/24/17 0000 Signed Impressions: Service Date/Time: Saturday, June 24, 2017 16:38 - CONCLUSION: 1. Small volume ascites. 2. Small right effusion. Pierce Ospina Jr., MD Upper Extremity Ultrasound 06/23/17 0000 Signed Impressions: Service Date/Time: June 20:03 - CONCLUSION: Noncompressibility right cephalic vein and left basilic vein consistent with venous thrombosis Trav Hsieh MD Lower Extremity Ultrasound 06/23/17 Signed Impressions: Service Date/Time: June 20:16 - CONCLUSION: Normal examination. No evidence DVT Trav Hsieh MD Chest X-Ray 06/23/17 Signed Impressions: Service Date/Time: June 16:19 - CONCLUSION: 1. Persistent left basilar opacity representing pleural effusion with associated volume loss and/or consolidation. The effusion is slightly smaller. 2. Persistent atelectasis at the right lung base. Luca Torers MD Chest X-Ray 06/23/17 Signed Impressions: Service Date/Time: June 08:47 - CONCLUSION: 1. Stable chest x-ray with moderate side left pleural effusion with associated volume loss and/or consolidation. 2. Stable right basilar opacity representing either atelectasis, consolidation, or small effusion. Luca Torres MD Abdomen X-Ray 06/23/17 Signed Impressions: Service Date/Time: June 08:08 - CONCLUSION: Improving bowel gas pattern compared to the prior study. The NG tube is in good position in the stomach. Krzysztof Cruz MD PHYSICAL EXAMINATION: GENERAL: Sedated. No acute distress. On the vent. HEAD, EYES, EARS, NOSE, THROAT: No icterus. No nasal drainage. He is orally intubated. NECK: The neck is supple. LUNGS: Decreased breath sounds at the bases HEART: Regular S1-S2 without murmurs, rubs or gallops. ABDOMEN: Diminished bowel sounds. Soft. Ileostomy stoma is pink. No guarding EXTREMITIES: No clubbing or cyanosis or edema. The distal extremities are warm. SKIN: No rash. NEUROLOGIC: Nonfocal. IMPRESSION: Ileitis, S/P surgery for rectal cancer, has diverting ileostomy - stool (+) C diff toxin - biopsy with ulcerations Sepsis, due to C diff infection Acute respiratory failure. Abnormal CXR - probable atelectasis. Leukocytosis better. Low grade temps, better RECOMMENDATIONS: Continue Flagyl. Continue PO Vancomycin. Continue Vanco irrigation to his ileostomy Follow the blood cultures. Monitor temps Monitor the white blood cell count and temperature. Monitor progress Try to avoid any other systemic Abx Makayla Landon MD Jun 26, 2017 13:33
[2017-06-26] MEDS: FAT EMULSION 20% INJ 250 ML (@10 mls/hr) IV-CENTRAL SCH (20:44)
[2017-06-26] MEDS: SODIUM ACETATE IV-CENTRAL SCH ×10 (20:45)
[2017-06-26] MEDS: SODIUM CHLORIDE IV-CENTRAL SCH ×10 (20:45)
[2017-06-26] MEDS: [UNRECOGNIZED DRUG - OTHER] IV-CENTRAL SCH ×10 (20:45)
[2017-06-27] VITALS (25 sets, daily range): BP systolic 102–176; BP diastolic 52–176; PULSE 92–118; RESP 22–61; TEMP 98.1–99.5; O2SAT 94–100
[2017-06-27] MEDS: metroNIDAZOLE 500 MG INJ 100 ML IV SCH ×3 (01:28→16:43)
[2017-06-27] MEDS: METOCLOPRAMIDE HCL 10 MG/2 ML VIAL IV PUSH SCH ×3 (01:29→16:43)
[2017-06-27] MEDS: RESP: ALBUTEROL 2.5 MG/IPRATROPIUM 0.5 MG NEB (SCH) NEB ×4 (03:32→20:08)
[2017-06-27] MEDS: ALBUMIN 25% INJ 50 ML IV SCH ×2 (03:50→15:16)
[2017-06-27] MEDS: INSULIN ASPART SUPPLEMENTAL SCALE SQ SCH ×7 (04:00→23:35)
[2017-06-27] MEDS: PANTOPRAZOLE SODIUM 40 MG VIAL IV PUSH SCH ×2 (05:29→18:03)
[2017-06-27] MEDS: MIDAZOLAM 100 MG/100 ML INJ 100 ML IV PRN ×2 (05:29→16:44)
[2017-06-27 05:47] LABS: AUTOMATED NEUTROPHIL # 8.6 TH/MM3 (1.8-7.7); BASOPHIL # 0.1 TH/MM3 (0-0.2); BASOPHIL % 1.2 % (0.0-2.0); EOSINOPHIL % 0.5 % (0.0-4.0); HEMATOCRIT 29.6 % (39.0-51.0); LYMPH % 4.6 % (9.0-44.0); LYMPHOCYTE # 0.5 TH/MM3 (1.0-4.8); MEAN CELL VOLUME 84.2 FL (80.0-100.0); MEAN CORPUSCULAR HGB CONC 33.2 % (32.0-36.0); MONO % 8.3 % (0.0-8.0); NEUT % 85.4 % (16.0-70.0); RED BLOOD COUNT 3.52 MIL/MM3 (4.50-5.90); RED CELL DISTRIBUTION WIDTH 15.7 % (11.6-17.2); WHITE BLOOD COUNT 10.1 TH/MM3 (4.0-11.0)
[2017-06-27 05:52] LABS: APTT (PATIENT) 52.3 SEC (24.3-30.1); INTERNATIONAL NORMALIZED RATIO 1.1 RATIO; PROTHROMBIN TIME - PATIENT 11.9 SEC (9.8-11.6)
[2017-06-27 05:57] LABS: HEMO FLAGS AUTO DIFF
[2017-06-27 05:58] LABS: PLATELET COUNT 18 TH/MM3 (150-450)
[2017-06-27 06:13] LABS: ANION GAP 10 MEQ/L (5-15); AST (GOT) 460 U/L (15-37); BICARBONATE 24.5 MEQ/L (21.0-32.0); BLOOD UREA NITROGEN 39 MG/DL (7-18); CHLORIDE 105 MEQ/L (98-107); GLOMERULAR FILTRATION RATE 81 ML/MIN (>89); MAGNESIUM 2.1 MG/DL (1.5-2.5); POTASSIUM 3.6 MEQ/L (3.5-5.1); SODIUM (NA) 139 MEQ/L (136-145)
[2017-06-27 06:14] LABS: ALT (GPT) 217 U/L (12-78)
[2017-06-27 06:16] LABS: ALKALINE PHOSPHATASE 268 U/L (45-117)
--- NOTE | 2017-06-27 06:19 | RADRPT ---
EXAM DATE/TIME: 06/27/2017 04:23 [facility] COMPARISON: CHEST SINGLE AP, June 26, 2017, 5:05. INDICATIONS : Shortness of breath, possible pulmonary disease. MEDICAL HISTORY : Hypertension. Hypercholesterolemia. SURGICAL HISTORY : Appendectomy. ENCOUNTER: Subsequent ACUITY: 1 week PAIN SCORE: Non-responsive. LOCATION: Bilateral chest FINDINGS: A single view of the chest demonstrates unchanged bilateral patchy opacities and probable small effus ions. Endotracheal tube, nasogastric tube and left jugular central line are stable in position. The c ardiomediastinal contours are unremarkable. Osseous structures are intact. CONCLUSION: 1. Stable chest. 2. Bilateral patchy opacities and probable small pleural effusions. Sarwat Suarez MD on June 27, 2017 at 6:16 Board Certified Radiologist. This report was verified electronically.
--- NOTE | 2017-06-27 06:20 | RADRPT ---
EXAM DATE/TIME: 06/27/2017 04:29 [facility] COMPARISON: ABDOMEN KUB ONLY, June 25, 2017, 8:39. INDICATIONS : Abdominal distention. MEDICAL HISTORY : Hypertension. Hypercholesterolemia. SURGICAL HISTORY : Appendectomy. ENCOUNTER: Subsequent ACUITY: 1 week PAIN SCORE: Non-responsive. LOCATION: Bilateral abdomen FINDINGS: Supine view of the abdomen was performed. Gaseous distention of multiple bowel loops. Left-sided nep hroureteral stent in good position and unchanged. Ostomy right lower quadrant. No abnormal masses, ca lcifications, or organomegaly is seen. The osseous structures are unremarkable. CONCLUSION: Stable abdomen. Sarwat Suarez MD on June 27, 2017 at 6:18 Board Certified Radiologist. This report was verified electronically.
[2017-06-27 08:00] LABS: BANDS 6 % (0-6); CORRECTED NUCLEATED RBC 8 /100 WBC (0-0); METAMYELOCYTES 4 % (0-1); MYELOCYTES 1 % (0-0); NEUTROPHIL # MANUAL DIFF 8.8 TH/MM3 (1.8-7.7); PLATELET ESTIMATE SMEAR RARE (NORMAL); PLATELET MORPHOLOGY ENLARGED (NORMAL); POLYS (SEG NEUTROPHILS) 75 % (16-70); PROMYELOCYTES 1 % (0-0); SCAN/DIFF FINAL DIFF MANUAL; WBC DIFF SAMPLE 100
[2017-06-27] MEDS: CHLORHEXIDINE 0.12% (ORAL KIT) 15 ML CUP MT SCH ×2 (08:40→20:00)
[2017-06-27] MEDS: IRR IRRIGATION SCH ×3 (08:41→18:35)
[2017-06-27] MEDS: SODIUM CHLORIDE 0.9% IRRIGATION SCH ×3 (08:41→18:35)
[2017-06-27] MEDS: VANCOMYCIN IRRIGATION SCH ×3 (08:41→18:35)
[2017-06-27] MEDS: VANCOMYCIN 500 MG VIAL (FOR ORAL USE ONLY) NG SCH ×4 (08:42→20:44)
[2017-06-27] MEDS: ALVIMOPAN 12 MG CAPSULE NG SCH ×2 (08:42→20:45)
[2017-06-27] MEDS: DIGOXIN 0.5 MG/2 ML VIAL IV PUSH SCH (08:42)
--- NOTE | 2017-06-27 09:10 | PD.ONC.PN ---
Subjective Subjective Remarks Patient remains intubated and sedated. Over the weekend, his aPTT levels were supra-therapeutic and his LFTs deteriorated. Anticoagulation was d/eliezer, his PLT counts declined to the 20,000 range. Overt bleeding has not been appreciated. Objective Data Date Time Temp Pulse Resp B/P (MAP) Pulse Ox O2 Delivery O2 Flow Rate FiO2 06/27/17 08:55 96 40 06/27/17 06:00 97 06/27/17 04:55 98 40 06/27/17 04:00 98.5 92 39 129/59 (82) 98 122/57 (78) 06/27/17 04:00 92 06/27/17 04:00 40 06/27/17 02:00 97 06/27/17 01:18 95 40 06/27/17 00:00 40 06/27/17 00:00 105 06/27/17 00:00 99.5 105 22 122/73 (89) 95 122/58 (79) 06/26/17 23:29 99 125/58 06/26/17 22:26 101 116/52 06/26/17 22:00 99 06/26/17 21:40 97 40 06/26/17 20:00 99.4 89 19 94/59 (71) 97 111/53 (72) 06/26/17 20:00 40 06/26/17 20:00 89 06/26/17 18:00 92 06/26/17 16:10 96 40 06/26/17 16:00 100 06/26/17 16:00 40 06/26/17 16:00 97.8 97 26 116/55 (75) 99 122/59 (80) 06/26/17 14:00 103 06/26/17 12:00 40 06/26/17 12:00 98.0 92 28 80/53 (62) 99 107/54 (71) 06/26/17 12:00 92 06/26/17 11:59 99 40 06/26/17 10:00 96 06/26/17 09:16 96 40 06/26/17 09:09 92 100/53 06/27/17 06/27/17 06/27/17 07:00 15:00 23:00 Intake Total 917 ml Output Total 825 ml Balance 92 ml Result Diagram: 06/27/17 0422 06/27/17 0422 Laboratory Results Laboratory Tests Test 06/27/17 04:22 White Blood Count 10.1 TH/MM3 Red Blood Count 3.52 MIL/MM3 Hemoglobin 9.8 GM/DL Hematocrit 29.6 % Mean Corpuscular Volume 84.2 FL Mean Corpuscular Hemoglobin 28.0 PG Mean Corpuscular Hemoglobin Concent 33.2 % Red Cell Distribution Width 15.7 % Platelet Count 18 TH/MM3 Mean Platelet Volume 9.3 FL Neutrophils (%) (Auto) 85.4 % Lymphocytes (%) (Auto) 4.6 % Monocytes (%) (Auto) 8.3 % Eosinophils (%) (Auto) 0.5 % Basophils (%) (Auto) 1.2 % Neutrophils # (Auto) 8.6 TH/MM3 Lymphocytes # (Auto) 0.5 TH/MM3 Monocytes # (Auto) 0.8 TH/MM3 Eosinophils # (Auto) 0.0 TH/MM3 Basophils # (Auto) 0.1 TH/MM3 CBC Comment AUTO DIFF Differential Total Cells Counted 100 Neutrophils % (Manual) 75 % Band Neutrophils % 6 % Lymphocytes % 8 % Monocytes % 5 % Neutrophils # (Manual) 8.8 TH/MM3 Metamyelocytes 4 % Myelocytes 1 % Promyelocytes 1 % Nucleated Red Blood Cells 8 /100 WBC Differential Comment FINAL DIFF MANUAL Platelet Estimate RARE Platelet Morphology Comment ENLARGED Prothrombin Time 11.9 SEC Prothromb Time International Ratio 1.1 RATIO Activated Partial Thromboplast Time 52.3 SEC Blood Urea Nitrogen 39 MG/DL Creatinine 0.93 MG/DL Random Glucose 129 MG/DL Total Protein 5.0 GM/DL Albumin 2.0 GM/DL Calcium Level 7.8 MG/DL Magnesium Level 2.1 MG/DL Alkaline Phosphatase 268 U/L Aspartate Amino Transf (AST/SGOT) 460 U/L Alanine Aminotransferase (ALT/SGPT) 217 U/L Total Bilirubin 2.0 MG/DL Sodium Level 139 MEQ/L Potassium Level 3.6 MEQ/L Chloride Level 105 MEQ/L Carbon Dioxide Level 24.5 MEQ/L Anion Gap 10 MEQ/L Estimat Glomerular Filtration Rate 81 ML/MIN Imaging Studies Last 24 hours Impressions Chest X-Ray 06/27/17 0600 Signed Impressions: Service Date/Time: Tuesday, June 27, 2017 04:23 - CONCLUSION: 1. Stable chest. 2. Bilateral patchy opacities and probable small pleural effusions. Sarwat F. Tocci, MD Abdomen X-Ray 06/27/17 0600 Signed Impressions: Service Date/Time: Tuesday, June 27, 2017 04:29 - CONCLUSION: Stable abdomen. Sarwat Suarez MD Administered Medications Medications (Trade) Dose Ordered Sig/[place] Route PRN Reason Start Time Stop Time Status Last Admin Dose Admin Acetaminophen/ Hydrocodone Bitart ([place] 5-325 Mg) 1 tab Q4H PRN PO PAIN SCALE 1 TO 5 06/17/17 22:00 06/17/17 22:02 Acetaminophen/ Hydrocodone Bitart ([place] 5-325 Mg) 2 tab Q4H PRN PO PAIN SCALE 6 TO 10 06/17/17 22:00 06/21/17 20:40 Ondansetron HCl (Zofran Inj) 4 mg Q4H PRN IV PUSH NAUSEA/VOMITING 06/17/17 22:00 06/18/17 09:45 Miscellaneous Information Patient in critical care unit? Ass... [id number] .XX 06/18/17 05:45 06/18/17 05:45 Vasopressin 40 units/Dextrose 100 ml @ 6 mls/hr [id number] IV 06/18/17 15:29 06/19/17 08:09 Metoclopramide HCl (Reglan Inj) 5 mg Q8H IV PUSH 06/18/17 17:00 06/27/17 08:42 Potassium Chloride 100 ml @ 50 mls/hr Q2H PRN IV For Potassium 2.8 - 3.2 mEq/L 06/19/17 07:45 06/21/17 03:31 Potassium Chloride 100 ml @ 50 mls/hr Q2H PRN IV For Potassium 3.3 - 3.5 mEq/L 06/19/17 07:45 06/22/17 17:22 Sodium Phosphate 30 mmol/Sodium Chloride 250 ml @ 42 mls/hr UNSCH PRN IV For Phosphorus < 2.5 mg/dL 06/19/17 07:45 06/20/17 17:06 Fat Emulsion Intravenous 250 ml @ 10 mls/hr Q24H IV-CENTRAL 06/19/17 20:00 06/26/17 20:44 Insulin Aspart (NovoLOG SUPPLEMENTAL SCALE) 1 Q4HR SQ 06/19/17 12:00 06/21/17 20:34 Sodium Chloride 40 meq/Sodium Acetate 59 meq/ Potassium Chloride 40 meq/ Sodium Phosphate 40 meq/Magnesium Chloride 10 meq/ Calcium Chloride 9 meq/ Multivitamins 10 ml/Folic Acid 1 mg/Insulin Human Regular 40 units/ Amino Acids/ Dextrose 2,091.7937 ml @ 50 mls/hr Q24H IV-CENTRAL 06/19/17 20:00 06/26/17 20:45 Vancomycin HCl (VANCOMYCIN for oral use only) 500 mg QID NG 06/19/17 18:00 06/27/17 08:42 Phenylephrine HCl 160 mg/Dextrose 500 ml @ 7.5 mls/hr TITRATE PRN IV Blood pressure management 06/19/17 19:15 06/24/17 00:32 Chlorhexidine Gluconate (Peridex 0.12% Liq) 15 ml BID@08,20 MT 06/20/17 08:00 06/27/17 08:40 Metronidazole 100 ml @ 100 mls/hr Q8H IV 06/20/17 09:00 06/27/17 08:42 Albuterol/ Ipratropium (Duoneb Neb) 1 ampule Q2HR NEB PRN NEB SHORTNESS OF BREATH 06/20/17 09:15 06/27/17 05:56 Acetaminophen (Tylenol 650 Mg/ 20 ml Liq) 650 mg Q6H PRN PO fever>100.5 06/20/17 16:30 06/23/17 03:57 Pantoprazole Sodium (Protonix Inj) 40 mg Q12H IV PUSH 06/21/17 07:00 06/27/17 05:29 Alvimopan (Entereg) 12 mg Q12HR NG 06/22/17 12:00 06/27/17 08:42 Albumin Human 50 ml @ 60 mls/hr Q12H IV 06/22/17 15:00 06/27/17 03:50 Vancomycin HCl 250 mg/Sodium Chloride 102.5 ml @ 0 mls/hr TID IRRIGATION 06/23/17 13:00 06/27/17 08:41 Midazolam HCl 100 ml @ 2 mls/hr TITRATE PRN IV SEDATION 06/23/17 16:15 06/27/17 05:29 Diltiazem HCl 125 mg/Sodium Chloride 125 ml @ 5 mls/hr TITRATE PRN IV Tachycardia 06/24/17 15:00 06/26/17 22:26 Albuterol/ Ipratropium (Duoneb Neb) 1 ampule Q6HR NEB NEB 06/24/17 16:00 06/27/17 08:46 Digoxin (Lanoxin Inj) 0.125 mg DAILY IV PUSH 06/25/17 13:30 06/27/17 08:42 Objective Remarks GENERAL APPEARANCE: Mr. Armendariz is a middle-aged/elderly male. He is laying in bed. He is non-responsive. He is intubated, ventilated and sedated. An A-line is being placed in his right radial artery by respiratory therapist. HEENT: Head atraumatic, normocephalic. Conjunctivae are pale. Sclerae are anicteric, EOMI, PERRLA, oral exam no pharyngeal erythema. NECK: No palpable cervical or supraclavicular lymphadenopathy. RESPIRATORY: Good air movement bilaterally. No added breath sounds. He has prolonged expiratory phase. He is initiating multiple spontaneous breaths. CARDIOVASCULAR: Irregular, tachycardiac, S1 S2, no obvious murmurs, rubs or gallops. ABDOMEN: The belly is soft. An ileostomy bag is noted containing liquid stools. A well-healing laparotomy incision in the midline is appreciated. LOWER EXTREMITIES: No pretibial edema, no calf tenderness. MUSCULOSKELETAL: Adequate muscle mass, tone and strength. 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 Assessment/Plan Assessment Mr. Armendariz is a 67-year-old male who was recently diagnosed with metastatic adenocarcinoma of the rectosigmoid colon and had resection of a metastatic deposit to the liver. He is status post primary surgical resection as well as wedge resection of a metastatic deposit to the liver and now has C difficile colitis. 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 Plan 1: Thrombocytopenia with positive Heparin/PLT factor 4 Joanne antibody: Await SMILEY. He has an an upper extremity thrombosis. Not on anticoagulation at this time, his PTT is prolonged, but this is likely due to decreased hepatic synthetic function due to liver dysfunction (he appears to have had a shock liver). Continue monitoring and treat supportively. Transfusion PLTs if he has overt bleeding. 2. Metastatic colon carcinoma: Await recovery before addressing this. 3. It may be reasonable to involve palliative care given the multi organ failure and his underlying diagnosis of metastatic colon carcinoma. His overall prognosis is poor. Shelby,Faraz MD Jun 27, 2017 09:10
[2017-06-27] MEDS: DILTIAZEM INJ 125 MG in SODIUM CHLORIDE 0.9% INJ 100 ML IV PRN ×2 (10:12→20:45)
--- NOTE | 2017-06-27 10:26 | HHI.GIFU ---
Subjective Remarks Sedated on the ventilator. Trickle feeds were started. Pt is tachypneic on ventilator. T. 99.5. Objective Vitals I&O Vital Signs Date Time Temp Pulse Resp B/P (MAP) Pulse Ox O2 Delivery O2 Flow Rate FiO2 06/27/17 08:55 96 40 06/27/17 06:00 97 06/27/17 04:55 98 40 06/27/17 04:00 98.5 92 39 129/59 (82) 98 122/57 (78) 06/27/17 04:00 92 06/27/17 04:00 40 06/27/17 02:00 97 06/27/17 01:18 95 40 06/27/17 00:00 40 06/27/17 00:00 105 06/27/17 00:00 99.5 105 22 122/73 (89) 95 122/58 (79) 06/26/17 23:29 99 125/58 06/26/17 22:26 101 116/52 06/26/17 22:00 99 06/26/17 21:40 97 40 06/26/17 20:00 99.4 89 19 94/59 (71) 97 111/53 (72) 06/26/17 20:00 40 06/26/17 20:00 89 06/26/17 18:00 92 06/26/17 16:10 96 40 06/26/17 16:00 100 06/26/17 16:00 40 06/26/17 16:00 97.8 97 26 116/55 (75) 99 122/59 (80) 06/26/17 14:00 103 06/26/17 12:00 40 06/26/17 12:00 98.0 92 28 80/53 (62) 99 107/54 (71) 06/26/17 12:00 92 06/26/17 11:59 99 40 I/O 06/26/17 06/26/17 06/26/17 06/27/17 06/27/17 06/27/17 07:00 15:00 23:00 07:00 15:00 23:00 Intake Total 1609.5 ml 2397 ml 917 ml Output Total 950 ml 750 ml 825 ml Balance 659.5 ml 1647 ml 92 ml IV Total 1609.5 ml 1789 ml Tube Feeding 82 ml TPN/PPN 507 ml 696 ml Lipid 101 ml 139 ml Output Urine Total 600 ml 450 ml 625 ml Stool Total 350 ml 300 ml 200 ml Laboratory Laboratory Tests Test 06/27/17 04:22 White Blood Count 10.1 Red Blood Count 3.52 Hemoglobin 9.8 Hematocrit 29.6 Mean Corpuscular Volume 84.2 Mean Corpuscular Hemoglobin 28.0 Mean Corpuscular Hemoglobin Concent 33.2 Red Cell Distribution Width 15.7 Platelet Count 18 Mean Platelet Volume 9.3 Neutrophils (%) (Auto) 85.4 Lymphocytes (%) (Auto) 4.6 Monocytes (%) (Auto) 8.3 Eosinophils (%) (Auto) 0.5 Basophils (%) (Auto) 1.2 Neutrophils # (Auto) 8.6 Lymphocytes # (Auto) 0.5 Monocytes # (Auto) 0.8 Eosinophils # (Auto) 0.0 Basophils # (Auto) 0.1 CBC Comment AUTO DIFF Differential Total Cells Counted 100 Neutrophils % (Manual) 75 Band Neutrophils % 6 Lymphocytes % 8 Monocytes % 5 Neutrophils # (Manual) 8.8 Metamyelocytes 4 Myelocytes 1 Promyelocytes 1 Nucleated Red Blood Cells 8 Differential Comment FINAL DIFF MANUAL Platelet Estimate RARE Platelet Morphology Comment ENLARGED Prothrombin Time 11.9 Prothromb Time International Ratio 1.1 Activated Partial Thromboplast Time 52.3 Blood Urea Nitrogen 39 Creatinine 0.93 Random Glucose 129 Total Protein 5.0 Albumin 2.0 Calcium Level 7.8 Magnesium Level 2.1 Alkaline Phosphatase 268 Aspartate Amino Transf (AST/SGOT) 460 Alanine Aminotransferase (ALT/SGPT) 217 Total Bilirubin 2.0 Sodium Level 139 Potassium Level 3.6 Chloride Level 105 Carbon Dioxide Level 24.5 Anion Gap 10 Estimat Glomerular Filtration Rate 81 Date/Time Source Procedure Growth Status 06/20/17 17:11 Blood Peripheral Aerobic Blood Culture - Final NO GROWTH IN 5 DAYS Complete 06/20/17 17:11 Blood Peripheral Anaerobic Blood Culture - Final NO GROWTH IN 5 DAYS Complete 06/20/17 15:50 Urine Catheterized Urine Urine Culture - Final NO GROWTH IN 48 HOURS. Complete Imaging Last Impressions Chest X-Ray 06/27/17 0600 Signed Impressions: Service Date/Time: Tuesday, June 27, 2017 04:23 - CONCLUSION: 1. Stable chest. 2. Bilateral patchy opacities and probable small pleural effusions. Sarwat Suarez MD Abdomen X-Ray 06/27/17 0600 Signed Impressions: Service Date/Time: Tuesday, June 27, 2017 04:29 - CONCLUSION: Stable abdomen. Sarwat Suarez MD Liver Ultrasound 06/24/17 0000 Signed Impressions: Service Date/Time: Saturday, June 24, 2017 16:38 - CONCLUSION: 1. Small volume ascites. 2. Small right effusion. Pierce Ospina Jr., MD Upper Extremity Ultrasound 06/23/17 0000 Signed Impressions: Service Date/Time: June 20:03 - CONCLUSION: Noncompressibility right cephalic vein and left basilic vein consistent with venous thrombosis Trav Hsieh MD Lower Extremity Ultrasound 06/23/17 0000 Signed Impressions: Service Date/Time: June 20:16 - CONCLUSION: Normal examination. No evidence DVT Trav Hsieh MD Chest CT 06/20/17 0000 Signed Impressions: Service Date/Time: Tuesday, June 20, 2017 07:42 - CONCLUSION: 1. Bilateral effusions and consolidative changes in both lung bases. Bao Lora MD Abdomen/Pelvis CT 06/20/17 0000 Signed Impressions: Service Date/Time: Tuesday, June 20, 2017 07:39 - CONCLUSION: 1. Dilated stomach and multiple dilated loops of small bowel, likely ileus. 2. No definite gastric volvulus. 3. Fat containing right inguinal hernia which also contains small portion of the urinary bladder and minimal fluid. 4. Left-sided nephroureteral stent in good position. 5. Bibasilar consolidation and small pleural effusions. Sarwat Suarez MD Physical Exam HEENT: Normocephalic; atraumatic; no jaundice. CHEST: OETT to vent. Tachypneic. Course breath sounds. CARDIAC: Irregular, HR 130's. Afib on monitor. ABDOMEN: Soft, distended, ileostomy with small liquid in ostomy bag. OGT with trickle feeds EXTREMITIES: BUE edema. SKIN: Normal; no rash; no jaundice. 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 Receiving TPN (started 06/19), started on amiodarone (started 06/19- off 06/24). LFTs were normal on 06/19. The AST went to 42 on 06/22 and 129 on 06/23. These spiked T. Bili 1.3, AST 546, ALT 158, Alk Phosph 197 on 06/24. Of note he had atrial fibrillation with RVR, HR 160's. His amiodarone was changed to Cardizem and his hr is now controlled, but he did have some hypotensive episodes overnight. This morning, his b/p is 106/56. Most likely, his LFT derangement is secondary to medications (suspect possibly combination of tpn and amiodarone), sepsis, possible congestive hepatopathyrelated to Afib with RVR. 06/25 had increase- (T. Bili 1.7, AST 1300, ALT 386, ALK Phosph 239) . Likely related to shocked liver from hypotensive episodes over night. Liver US (06/24/17)---> Small volume ascites. Small right effusion. ASMA negative. Alpha 1 Antitrypsin 221. Hepatitis panel pending., [place], AMA, Ceruloplasmin pending. AFP 3.3, Ferritin 5508. Iron saturation > 100%. He received one unit of blood on 06/18. Hfe gene. Recommend avoiding hepatotoxins, hypotensive episodes, and starting enteral feedings when able to from CRS standpoint. LFTs are improving/trending down. T. Bili 2.0, AST 460, ALT 217, Alk Phosph 268. - Severe sepsis with lactic acidosis with concern for possible bowel ischemia, CDifficile. Pt presented to ER with abdominal pain, n/v, generalized weakness. CT scan abdomen and pelvis with IV contrast (06/17/17)---> Dilatation of the distal small bowel when compared to proximal. Minimal colonic gas is evidence. Zone of transition appears to be in the right lower quadrant. I can see the transition but not etiology for such. BCx no growth 1 day, Urine cx 50-100,000 CFU/mL mixed mark. GI consulted for egd/ileoscopy to evaluate for bowel ischemia. S/P EGD/Colonoscopy (06/19/17)----> 1. There was LA Class B esophagitis noted 2. There was erythematous gastritis in the gastric body and gastric antrum; 2. 400cc of fluid suctioned from the stomach. ? gastric volvulus 3. Retroflexed views revealed no abnormalities Abnormal small bowel mucosa to 15cm. Pseudomembranous illeitis. ? ischemia. Pathology duodenal mucosa without significant histologic abnormality. moderate chronic gastritis and associated reactive epithelial changes. Negaive for helicobacter pylori, acute enteritis with features of ulceration. CDiff PCR (+) Epid 027 (-). ID following. CT scan abdomen and pelvis without contrast (06/20/17)---> dilated stomach and multiple dilated loops of small bowel, likely ileus. No definite gastric volvulus. Fat containing right ingional hernia which also contains small portion of the urinary bladder and minimal fluid. Left sided nephroureteral stent in good position. bibasilar consolidation and small pleural effusions. S/P Colonoscopy and ileoscopy (06/22/17)----> normal colonoscopy with ileal pseudomembranous colitis. ID is following. Flagyl, Oral Vanco, Vanco enemas via ileostomy. - CDiff. Vanco enemas via ileostomy/Oral vanco/Flagyl. ID following - PSBO/?Gastric volvulus. ? Volvulus on egd. Upper gi series ordered, d/c'd by CRS. CT scan abdomen and pelvis without contrast (06/20/17)---> dilated stomach and multiple dilated loops of small bowel, likely ileus. No definite gastric volvulus. Fat containing right ingional hernia which also contains small portion of the urinary bladder and minimal fluid. Left sided nephroureteral stent in good position. bibasilar consolidation and small pleural effusions. KUB (06/20/17)--> Nasogastric tube distal tip is in the gastric cardia region likely just beyond the GE junction. However, sentinel hole is in the distal esophagus, suggest advancement. Abnormally dilated small bowel obstruction. NGT to LIWS. TPN - Respiratory failure, small pleural effusion. Vent per CCM - NEIL. Creat. 0.93 - Anemia. S/P 1 unit prbc. 9.8/29.6 - Atrial fibrillation with RVR. Was started on amiodarone, but this is being changed to cardizem because his heart rate remained in 160 and he has elevated LFTs. - Thrombocytopenia. HIT (+), SMILEY pending. Plt 18,000. On argatroban. - Metastatic colon cancer. S/P lower anterior resection/coloanal anastomosis, resection and reanastomosis of the left ureter with ureteral anastomosis and double-J stent placement, wedge resection of hepatic metastasis, mobilization of the splenic flexure, and diverting closed loop ileostomy with Dr. Geiger and Dr. Pelayo on 05/26/17. Dr. Noel is his oncologist, but he has not seen him since his surgery PLAN: - Trickle feeds started, will defer to CRS - Cont. TPN for now - Cont. PPI - Await hepatitis profile, [place], ama, ceruloplasmin, Hfe gene - Abx per ID recommendations, Vanco enemas, Oral Vanco, Flagyl - Monitor labs - Supportive care - Avoid hepatotoxins - Avoid hypotensive episodes - Further recommendations to follow based on results of above Tami Sanderson Jun 27, 2017 10:25
--- NOTE | 2017-06-27 11:05 | HHI.PR ---
Subjective Remarks BP stable off of Giorgio. Platelets decreased more today to .Remains sedated. Urine ok. More liquid stool. Vanco irrigations of Ileum continue. TF started at 10cc/ hr. Pt breathing over vent this AM. Objective Vital Signs Date Time Temp Pulse Resp B/P (MAP) Pulse Ox O2 Delivery O2 Flow Rate FiO2 06/27/17 10:12 107 131/56 06/27/17 08:55 96 40 06/27/17 06:00 97 06/27/17 04:55 98 40 06/27/17 04:00 98.5 92 39 129/59 (82) 98 122/57 (78) 06/27/17 04:00 92 06/27/17 04:00 40 06/27/17 02:00 97 06/27/17 01:18 95 40 06/27/17 00:00 40 06/27/17 00:00 105 06/27/17 00:00 99.5 105 22 122/73 (89) 95 122/58 (79) 06/26/17 23:29 99 125/58 06/26/17 22:26 101 116/52 06/26/17 22:00 99 06/26/17 21:40 97 40 06/26/17 20:00 99.4 89 19 94/59 (71) 97 111/53 (72) 06/26/17 20:00 40 06/26/17 20:00 89 06/26/17 18:00 92 06/26/17 16:10 96 40 06/26/17 16:00 100 06/26/17 16:00 40 06/26/17 16:00 97.8 97 26 116/55 (75) 99 122/59 (80) 06/26/17 14:00 103 06/26/17 12:00 40 06/26/17 12:00 98.0 92 28 80/53 (62) 99 107/54 (71) 06/26/17 12:00 92 06/26/17 11:59 99 40 I/O 06/26/17 06/26/17 06/26/17 06/27/17 06/27/17 06/27/17 07:00 15:00 23:00 07:00 15:00 23:00 Intake Total 1609.5 ml 2397 ml 917 ml 139 ml Output Total 950 ml 750 ml 825 ml Balance 659.5 ml 1647 ml 92 ml 139 ml IV Total 1609.5 ml 1789 ml 139 ml Tube Feeding 82 ml TPN/PPN 507 ml 696 ml Lipid 101 ml 139 ml Output Urine Total 600 ml 450 ml 625 ml Stool Total 350 ml 300 ml 200 ml Result Diagram: 06/27/1742106/27/17421 Objective Remarks VS-S NSR Gen: Pt comfortable Abd: Soft. Mild distention. Wound healed. Ext: Mild edema Labs: Platelets down more to 18K. I&Os: OK Assessment and Plan Assessment and Plan Stable at present. LFTs improving. Hopefully platelet will improve as C. Diff sepsis improves. D/W . Continue oral Vanco and Flagyl. Started Vancomycin 250mg/100cc irrigating TID thru Ileostomy. Tube feeds to obviate need for TPN and to recolinize. Continue to support. Per [facility] Luca Geiger MD Jun 27, 2017 11:05
[2017-06-27 14:49] LABS: ANA SCREEN NEG (NEG)
[2017-06-27] MEDS: VASOPRESSIN INJ 40 UNITS in DEXTROSE 5% IN WATER 100ML INJ 98 ML IV SCH ×2 (16:09)
--- NOTE | 2017-06-27 16:46 | HHI.IDPN ---
Note Infectious Disease Note Patient on vent. Sedated. No meaningful response. Afib. D/C with RN. Admitted to the hospital with weakness, abdominal pain and nausea. The patient is status post anterior resection of colon and rectal areas and anastomosis along with a diverting ileostomy and also resection of a segment of left ureter with ureteral anastomosis and double-J stent placement three weeks prior. PAST MEDICAL HISTORY: 1. Hypertension. 2. Left knee surgery. 3. Metastatic colon cancer status post resection and coloanal anastomosis and also resection and re-anastomosis of the left ureter with double-J stent placement. ALLERGIES: 1. CODEINE. MEDICATIONS: 1. Metronidazole. 2. PO Vancomycin. 3. Vanco irrigation. SOCIAL HISTORY: . Positive tobacco use. No alcohol. No illicit drug use. OBJECTIVE: Vital Signs Date Time Temp Pulse Resp B/P (MAP) Pulse Ox O2 Delivery O2 Flow Rate FiO2 06/27/17 16:00 98.1 98 56 109/59 (76) 97 115/57 (76) 06/27/17 16:00 98 06/27/17 16:00 40 06/27/17 15:09 97 40 06/27/17 15:00 96 61 118/62 (80) 97 110/57 (74) 06/27/17 14:00 99 06/27/17 14:00 99 29 122/63 (82) 96 110/58 (75) 06/27/17 13:00 108 48 124/68 (86) 95 116/59 (78) 06/27/17 12:00 40 06/27/17 12:00 99.0 107 43 151/65 (93) 95 123/59 (80) 06/27/17 12:00 107 06/27/17 11:59 95 40 06/27/17 11:00 107 53 141/64 (89) 95 125/57 (79) 06/27/17 10:12 107 131/56 06/27/17 10:00 106 06/27/17 10:00 106 38 134/64 (87) 95 126/57 (80) 06/27/17 10:00 40 06/27/17 09:00 97 61 123/61 (81) 96 176/176 (176) 06/27/17 08:55 96 40 06/27/17 08:00 99 06/27/17 08:00 98.8 99 36 127/61 (83) 96 117/54 (75) 06/27/17 08:00 40 06/27/17 07:00 100 35 102/57 (72) 94 111/52 (71) 06/27/17 06:00 97 06/27/17 04:55 98 40 06/27/17 04:00 98.5 92 39 129/59 (82) 98 122/57 (78) 06/27/17 04:00 92 06/27/17 04:00 40 06/27/17 02:00 97 06/27/17 01:18 95 40 06/27/17 00:00 40 06/27/17 00:00 105 06/27/17 00:00 99.5 105 22 122/73 (89) 95 122/58 (79) 06/26/17 23:29 99 125/58 06/26/17 22:26 101 116/52 06/26/17 22:00 99 06/26/17 21:40 97 40 06/26/17 20:00 99.4 89 19 94/59 (71) 97 111/53 (72) 06/26/17 20:00 40 06/26/17 20:00 89 06/26/17 18:00 92 Laboratory Tests Test 06/26/17 04:45 06/27/17 04:22 White Blood Count 8.7 TH/MM3 10.1 TH/MM3 Red Blood Count 3.76 MIL/MM3 3.52 MIL/MM3 Hemoglobin 10.5 GM/DL 9.8 GM/DL Hematocrit 31.5 % 29.6 % Mean Corpuscular Volume 83.6 FL 84.2 FL Mean Corpuscular Hemoglobin 27.9 PG 28.0 PG Mean Corpuscular Hemoglobin Concent 33.3 % 33.2 % Red Cell Distribution Width 15.5 % 15.7 % Platelet Count 21 TH/MM3 18 TH/MM3 Mean Platelet Volume 8.5 FL 9.3 FL Neutrophils (%) (Auto) 86.8 % 85.4 % Lymphocytes (%) (Auto) 5.0 % 4.6 % Monocytes (%) (Auto) 6.9 % 8.3 % Eosinophils (%) (Auto) 0.7 % 0.5 % Basophils (%) (Auto) 0.6 % 1.2 % Neutrophils # (Auto) 7.6 TH/MM3 8.6 TH/MM3 Lymphocytes # (Auto) 0.4 TH/MM3 0.5 TH/MM3 Monocytes # (Auto) 0.6 TH/MM3 0.8 TH/MM3 Eosinophils # (Auto) 0.1 TH/MM3 0.0 TH/MM3 Basophils # (Auto) 0.1 TH/MM3 0.1 TH/MM3 CBC Comment AUTO DIFF AUTO DIFF Differential Total Cells Counted 100 100 Neutrophils % (Manual) 83 % 75 % Band Neutrophils % 6 % 6 % Lymphocytes % 1 % 8 % Monocytes % 6 % 5 % Neutrophils # (Manual) 8.1 TH/MM3 8.8 TH/MM3 Myelocytes 4 % 1 % Nucleated Red Blood Cells 3 /100 WBC 8 /100 WBC Differential Comment FINAL DIFF MANUAL FINAL DIFF MANUAL Platelet Estimate LOW RARE Platelet Morphology Comment NORMAL ENLARGED Target Cells 1+ Tear Drop Cells 1+ Metamyelocytes 4 % Promyelocytes 1 % Laboratory Tests Test 06/26/17 04:45 06/27/17 04:22 Blood Urea Nitrogen 44 MG/DL 39 MG/DL Creatinine 1.25 MG/DL 0.93 MG/DL Random Glucose 140 MG/DL 129 MG/DL Total Protein 4.8 GM/DL 5.0 GM/DL Albumin 2.0 GM/DL 2.0 GM/DL Calcium Level 7.3 MG/DL 7.8 MG/DL Magnesium Level 2.0 MG/DL 2.1 MG/DL Alkaline Phosphatase 220 U/L 268 U/L Aspartate Amino Transf (AST/SGOT) 686 U/L 460 U/L Alanine Aminotransferase (ALT/SGPT) 276 U/L 217 U/L Total Bilirubin 1.7 MG/DL 2.0 MG/DL Sodium Level 137 MEQ/L 139 MEQ/L Potassium Level 3.6 MEQ/L 3.6 MEQ/L Chloride Level 103 MEQ/L 105 MEQ/L Carbon Dioxide Level 27.2 MEQ/L 24.5 MEQ/L Anion Gap 7 MEQ/L 10 MEQ/L Estimat Glomerular Filtration Rate 57 ML/MIN 81 ML/MIN Protein Corrected Calcium 8.6 MG/DL IMAGING: Chest X-Ray 06/27/17 0600 Signed Impressions: Service Date/Time: Tuesday, June 27, 2017 04:23 - CONCLUSION: 1. Stable chest. 2. Bilateral patchy opacities and probable small pleural effusions. Sarwat Suarez MD Abdomen X-Ray 06/27/17 0600 Signed Impressions: Service Date/Time: Tuesday, June 27, 2017 04:29 - CONCLUSION: Stable abdomen. Sarwat Suarez MD Liver Ultrasound 06/24/17 Signed Impressions: Service Date/Time: Saturday, June 24, 2017 16:38 - CONCLUSION: 1. Small volume ascites. 2. Small right effusion. Pierce Ospina Jr., MD Upper Extremity Ultrasound 06/23/17 Signed Impressions: Service Date/Time: June 20:03 - CONCLUSION: Noncompressibility right cephalic vein and left basilic vein consistent with venous thrombosis Trav Hsieh MD Lower Extremity Ultrasound 06/23/17 Signed Impressions: Service Date/Time: June 20:16 - CONCLUSION: Normal examination. No evidence DVT Trav Hsieh MD Chest CT 06/20/17 Signed Impressions: Service Date/Time: Tuesday, June 20, 2017 07:42 - CONCLUSION: 1. Bilateral effusions and consolidative changes in both lung bases. Bao Lora MD Abdomen/Pelvis CT 06/20/17 Signed Impressions: Service Date/Time: Tuesday, June 20, 2017 07:39 - CONCLUSION: 1. Dilated stomach and multiple dilated loops of small bowel, likely ileus. 2. No definite gastric volvulus. 3. Fat containing right inguinal hernia which also contains small portion of the urinary bladder and minimal fluid. 4. Left-sided nephroureteral stent in good position. 5. Bibasilar consolidation and small pleural effusions. Sarwat Suarez MD PHYSICAL EXAMINATION: GENERAL: No acute distress. On the vent. HEAD, EYES, EARS, NOSE, THROAT: No icterus. Oropharynx with dry mucosa. NECK: The neck is supple. LUNGS: Decreased clear breath sounds. HEART: Regular S1-S2 without murmurs, rubs or gallops. ABDOMEN: Diminished bowel sounds. Soft. Colostomy in the right abdomen. EXTREMITIES: No clubbing or cyanosis or edema. SKIN: No rash. NEUROLOGIC: Nonfocal. IMPRESSION: 1. Bandemia in a patient with lactic acidosis. The patient is status post recent surgery for rectal cancer and recent ureteral resection and double J ureteral stent. Severe sepsis based on parameters including hypotension. 2. C difficile colitis. Pseudomembraneous enteritis/sepsis. 3. Acute respiratory failure. 4. Abnormal CXR - probable atelectasis. 5. Leukocytosis. 6. Elevated LFT's. RECOMMENDATIONS: 1. Continue Flagyl IV. 2. Continue PO Vancomycin. El Espinoza MD Jun 27, 2017 16:46
--- NOTE | 2017-06-27 20:41 | HHI.CCPN ---
Subjective Remarks/Hospital Course The patient is a 67-year-old male with past medical history of hypertension, metastatic colon cancer, tobacco abuse, who, about 3 weeks ago underwent low anterior resection with low colorectal anastomosis, diverting ileostomy, and resection of a segment of the left ureter with ureteral anastomosis and double- J stent placement. He presented yesterday with 5 day history of abdominal discomfort and increasing weakness. No history of high output from ileostomy. He was admitted to the colorectal surgery for dehydration and probable UTI. He was placed on ciprofloxacin and IV hydration. According to Dr. Geiger's note it was difficult dissection/resection colon mass because of the pelvic sidewall adherence and the adherence to the left ureter. A portion of ureter was resected due to possibility of tumor infiltration, and Dr. Augustine Pelayo re- anastomosed the ureter and placed left-sided double-J stent. Also 1 cm hepatic metastasis in his liver that was excised. Hospitalist consultation was requested for medical management and evaluation of tachycardia today. He was seen by Dr. Jay and was placed on infusion of Cardizem for heart rate 140s. Patient became hypotensive with systolic blood pressure early 90s. Lab work showed WBC 14.5 with 44% bands, creat increase from 1.2 to 1.4 and severely increased lactate at 8 from admission lactate of 2.6. CT of the abdomen pelvis done yesterday showed probable small bowel ileus. I evaluated the patient in the ICU. He is tachycardic in 140s, hypotensive and systolic blood pressure in mid 80s. Clinically appears very dehydrated, an NG tube was placed with approximately 3 L of some coffee-ground output. ABG shows a base excess of -10 and bicarbonate 12. I have ordered 4 liter normal saline boluses start 1 amp of bicarbonate, discontinued the LR infusion, and started bicarb gtt. Discontinue ciprofloxacin, started Zosyn every 6 hours, vancomycin 1 g 1. His elevated lactic acid and bandemia most likely secondary to severe sepsis, ileus, and severe dehydration. Serial lactate is ordered SUBJ 06/19: Lactic acid remains elevated at 6.6 despite getting 9 L of crystalloid boluses in last 24 hours. Tachycardia has improved heart rate in 110s. Remains on vasopressin at 0.04 units/min. Urine output almost 1200 mL overnight, OGT initial output was almost 3 L when placed yesterday a.m. Overnight had 550 mL of greenish brown fluid output. EGD pending today rule out gastric ischemia per Dr. Romero. Apparently Flex sig was negative post op in Dr. Geiger's office 06/20: Developed A. fib with RVR. Heart rate 200. Hemodynamically unstable, synchronized cardioversion attempted by Dr. Morales 100 200 J. Given 3 g mag sulfate and 80 mEq KCl 1, 0.5 digoxin 1 and started on amiodarone and Giorgio- Synephrine. Intubated due to hemodynamic instability. Currently remains sedated. Currently on Giorgio-Synephrine 80 mcg/m, and amiodarone. CT chest abdomen pelvis again confirms gastric and small bowel distention/ileus. UO 1800 ml in 24 hours 06/21: Remains critically ill, intubated sedated, on 100 mcg/min neosynpehrine. HR better controlled. NG output 1500, UO >1.4L. Am labs pending. Ileostomy sample positive for C Diff on PO vanc IV Flagyl. 06/22: Remains intubated sedated. Urine output 3000 mL with Bumex. NGT [address] Geiger did colonoscopy which was normal. Ileoscopy showed pseudomembranous colitis. Currently on 200 mcg/min of neosynephrine. Afib with RVR HR in 140's 06/23: Remains intubated sedated, remains in atrial fibrillation with RVR. Still requiring high doses of Giorgio-Synephrine at 190 mcg/min. UO 2.5L. chest x- ray showed bilateral large effusions. KUB shows improving small bowel distention. WBC count is slightly improved 06/24: Unable to control HR. Repeat shock x3 today. remains in atrial fibrillation with RVR rates 160-170 intermittently. Remains on amiodarone but will discontinued due to elevation of liver enzymes AST 546 ALT 158. (GI notified). Start Cardizem infusion and also give Surjit 0.5 mg 1. Platelet count continues to drop from 67 to today 45. Hematology following will start of Argatroban today. Creatinine has slightly increased to 1.3 to will DC Bumex infusion 06/25: Patient remains intubated sedated critically ill. Heart rate controlled for the first time since atrial fibrillation started. Heart rate remains 80- 90. Urine output 1200 mL in 24 hours but BUN/creatinine increasing 44/1.7. I will hydrate with 50 mL/hr normal saline for 24 hours. Transaminitis increasing AST 1300 ALT 386. Ultrasound of the liver unremarkable GI following 06/26: PTT elevated due to Argatorban/Liver failure. Dr. Hurley has DCd argatroban. SMILEY pending. Pl count is 21. Currently in sinus rhythm on Cardizem infusion. Not on any pressors. Creatinine improved to 1.2. Urine output adequate. Becomes very tachypneic on attempted CPAP. Discussed with Dr. Geiger Will Start Trickle Tube Feeds 06/27: no improvements. off pathway. thrombocytopenia persists. unable to wean from mechanical ventilation. neuro exam poor. will likely need trach. Objective Vital Signs Date Time Temp Pulse Resp B/P (MAP) Pulse Ox O2 Delivery O2 Flow Rate FiO2 06/27/17 20:00 118 06/27/17 20:00 98.3 58 129/69 (89) 96 135/72 (93) 06/27/17 20:00 40 Intake and Output 06/27/17 06/27/17 06/28/17 08:00 16:00 00:00 Intake Total 917 ml 139 ml 1066 ml Output Total 825.0 ml 800 ml Balance 92.0 ml 139 ml 266 ml Result Diagram: 06/27/1742106/27/[address] abdomen pelvis shows distal small bowel dilatation Chest x-ray no acute findings KUB shows ileus Objective Remarks Infusions: Cardizem Giorgio-Synephrine -OFF Argatroban OFF Versed TPN GENERAL: middle-aged male intubated sedated critically ill. SKIN: Warm and dry. HEENT: Extraocular muscles intact. NECK: The neck is supple. LIJ central line in place CHEST:Few coarse rhonchi Equal bilaterally. Becomes tachypneic on CPAP CVS: Afib with HR in 110s, irregularly irregular. ABDOMEN: Abdomen is slightly distended, soft. Incision appears healing well. Ileostomy is functioning well. NGT output decreasing EXTREMITIES: No pedal edema or cyanosis NEURO: Intubated heavily sedated. Moves all extremities, not following commands A/P Assessment and Plan ASSESSMENT Severe sepsis- resolving. C Diff enteritis/ileitis Acute hypoxemic respiratory failure - persistent. Atrial fibrillation with RVR - persistent. Acute kidney injury Transaminitis Ileus Lactic acidemia Thrombocytopenia/probable HIT Probable UTI s/p Left colectomy with colorectal anastomosis, diverting ileostomy, wedge resection of liver metastasis s/p Partial resection of the left ureter with anastomosis and placement of double-J stent Hypertension Tobacco abuse Hypokalemia, hypomagnesemia PLAN: NEURO: - Versed for sedation and vent synchrony - Attempt daily sedation vacation, poor neuro exam. RESP: - ACV PEEP 5. FiO2 40%. - DuoNeb q6hr and PRN, vent bundle - Attempt daily SBT, continues to fail due to severe tachypnea on pressure support - Bilateral small pleural effusion on chest x-ray CV: - Cardioverted several times without success and amiodarone started for A. fib with RVR - Amio DCd 06/24 due to Liver enzyme elevation.remains on Cardizem infusion and Digoxin. still back in afib with variable rate. very resistant afib and difficult to control. - IV Heparin discontinued due to Hit screen positive hematology consulted. Argatroban DCd today by Dr. Hurley - s/p Normal saline IV fluids 8L boluses on 06/18/17, No IVF now except TPN - Bumex DCd 06/24 due to increasing creatinine. NS 50 ml per hour for 24 hours 06/25-06/26. Creatinine improved to 1.2 - 2D Echo normal LV function GI: - NPO, Protonix gtt, TPN. D/W Dr. Geiger, Trickle feeds - Transaminitis most likely secondary to amiodarone and TPN and hypotension, interval worsening AST 1300, ALT 386, today improved to 686/276 - Gastroenterology Dr. Saldana. EGD 06/19. Evidence of esophagitis, and erythematous gastritis in the gastric body and gastric antrum - C Diff positive from ileostomy sample indicating C Diff enteritis. On PO vanc and IV Flagyl - Dr. Tran 06/22. Colonoscopy normal. Ileoscopy severe pseudomembranous ileitis - IV Reglan [address] Prev CT abdomen pelvis and KUB shows small bowel ileus., KUB 06/23 improving ileus - Continue Entereg : - Monitor renal function closely. Han catheter. UO adequate - IV NS for 24 hours, stop today. Creat has improved ID: - ID Dr. Dontfraid - PO Vancomycin and IV Flagyl for C diff enteritis - F/u blood and urine culture -negative to date HEME: Thrombocytopenia, hit screen positive - Monitor CBC, CMP - HIT screen positive- consulted hematology SMILEY pending - Argatroban started 06/24/17, DCd 06/26/[address] Hurley - According to Dr. Hurley elevated PTT secondary to decreased liver clearance of argatroban - Once PTT normal, use Arixtra. ENDO: - Electrolyte replacement per protocol - Aggressive K and Mag replacement PROPH: -Bilateral lower extremity SCDs. No anticoagulation until PT/PTT checked 06/27 , IV Protonix 40 q12 LINES: - Left IJ central line, radial art line Critically ill stable. Multi organ involvement makes diagnosis still guarded. D/ W Dr. Geiger and Dr. Guaman. Updated patient's MateuszMichi Turpin MD Jun 27, 2017 20:41
[2017-06-27] MEDS: [UNRECOGNIZED DRUG - OTHER] IV-CENTRAL SCH ×10 (20:44)
[2017-06-27] MEDS: SODIUM CHLORIDE IV-CENTRAL SCH ×10 (20:44)
[2017-06-27] MEDS: SODIUM ACETATE IV-CENTRAL SCH ×10 (20:44)
[2017-06-27] MEDS: FAT EMULSION 20% INJ 250 ML (@10 mls/hr) IV-CENTRAL SCH (20:44)
[2017-06-28] VITALS (19 sets, daily range): BP systolic 116–153; BP diastolic 63–89; PULSE 106–116; RESP 26–59; TEMP 98–99.9; O2SAT 95–100
[2017-06-28] MEDS: METOCLOPRAMIDE HCL 10 MG/2 ML VIAL IV PUSH SCH ×3 (01:01→17:32)
[2017-06-28] MEDS: metroNIDAZOLE 500 MG INJ 100 ML IV SCH ×3 (01:01→17:31)
[2017-06-28] MEDS: ALBUMIN 25% INJ 50 ML IV SCH ×2 (03:00→14:11)
[2017-06-28] MEDS: RESP: ALBUTEROL 2.5 MG/IPRATROPIUM 0.5 MG NEB (SCH) NEB ×2 (03:54→07:50)
[2017-06-28] MEDS: INSULIN ASPART SUPPLEMENTAL SCALE SQ SCH ×6 (03:55→23:57)
[2017-06-28] MEDS: PANTOPRAZOLE SODIUM 40 MG VIAL IV PUSH SCH ×2 (05:09→17:32)
[2017-06-28] MEDS: DILTIAZEM INJ 125 MG in SODIUM CHLORIDE 0.9% INJ 100 ML IV PRN (05:13)
[2017-06-28] MEDS: MIDAZOLAM 100 MG/100 ML INJ 100 ML IV PRN (05:13)
[2017-06-28 05:50] LABS: BLOOD GAS BASE EXCESS -0.8 mmol/L (-2-2); BLOOD GAS CARBOXYHEMOGLOBIN 1.1 % (0-4); BLOOD GAS HCO3 23 mmol/L (22-26); BLOOD GAS METHEMOGLOBIN 1.3 % (0-2); BLOOD GAS O2 HGB SATURATION 96 % (90-100); BLOOD GAS OXYGEN CONTENT 14.4 Vol % (12.0-20.0); BLOOD GAS PCO2 33 mmHg (38-42); BLOOD GAS PO2 106 mmHg (61-120); BLOOD GAS TOTAL HGB 10.6 G/DL (12.0-16.0); CRITICAL VALUE NO; OXYGEN DEVICE VENTILATOR; TEMP CORR TO 98.6
[2017-06-28 05:51] LABS: DRAW SITE ART LINE; FIO2 40 %; STAT NO; VENT SETTINGS PRVC/AC
[2017-06-28 07:54] LABS: ALT (GPT) 189 U/L (12-78); ANION GAP 8 MEQ/L (5-15); AST (GOT) 333 U/L (15-37); BICARBONATE 23.8 MEQ/L (21.0-32.0); BLOOD UREA NITROGEN 39 MG/DL (7-18); CHLORIDE 108 MEQ/L (98-107); GLOMERULAR FILTRATION RATE 82 ML/MIN (>89); POTASSIUM 4.1 MEQ/L (3.5-5.1); SODIUM (NA) 140 MEQ/L (136-145)
[2017-06-28 07:55] LABS: HEMATOCRIT 31.4 % (39.0-51.0); MEAN CELL VOLUME 84.3 FL (80.0-100.0); MEAN CORPUSCULAR HEMOGLOBIN 27.9 PG (27.0-34.0); MEAN CORPUSCULAR HGB CONC 33.1 % (32.0-36.0); RED BLOOD COUNT 3.72 MIL/MM3 (4.50-5.90)
[2017-06-28 07:57] LABS: ALKALINE PHOSPHATASE 392 U/L (45-117); REVIEW FLAG FINAL; TOTAL BILIRUBIN ADULT 2.3 MG/DL (0.2-1.0)
[2017-06-28 08:00] LABS: PLATELET COUNT 15 TH/MM3 (150-450)
[2017-06-28] MEDS: SODIUM CHLORIDE 0.9% IRRIGATION SCH ×3 (08:11→17:32)
[2017-06-28] MEDS: IRR IRRIGATION SCH ×3 (08:11→17:32)
[2017-06-28] MEDS: VANCOMYCIN IRRIGATION SCH ×3 (08:11→17:32)
[2017-06-28] MEDS: DIGOXIN 0.5 MG/2 ML VIAL IV PUSH SCH (08:12)
[2017-06-28] MEDS: ALVIMOPAN 12 MG CAPSULE NG SCH ×2 (08:12→20:47)
[2017-06-28] MEDS: VANCOMYCIN 500 MG VIAL (FOR ORAL USE ONLY) NG SCH ×4 (08:12→20:47)
--- NOTE | 2017-06-28 08:13 | PD.ONC.PN ---
Subjective Subjective Remarks Patient seen and examined, vital signs, labs and medications reviewed. Events over the past 24 hours are also noted. The patient remains intubated and sedated. Per nursing staff his neuro examination remains abnormal despite periods of sedation weaning. There were no acute cardiopulmonary events over the past 24 hours. There has been no overt bleeding. He continues to have watery diarrhea via the ostomy. His platelet count is down from 18,000 on 06/27/2017 to 15,000 today. Objective Data Date Time Temp Pulse Resp B/P (MAP) Pulse Ox O2 Delivery O2 Flow Rate FiO2 06/28/17 07:45 99 40 06/28/17 07:44 40 06/28/17 06:00 109 06/28/17 05:13 109 137/78 06/28/17 04:18 99 40 06/28/17 04:00 40 06/28/17 04:00 98.0 108 26 119/69 (86) 99 126/74 (91) 06/28/17 04:00 108 06/28/17 02:00 106 06/28/17 00:00 98.0 112 59 127/70 (89) 100 122/67 (85) 06/28/17 00:00 112 06/28/17 00:00 40 06/27/17 23:39 100 40 06/27/17 22:00 101 06/27/17 20:45 103 118/66 06/27/17 20:05 97 40 06/27/17 20:00 118 06/27/17 20:00 98.3 118 58 129/69 (89) 96 135/72 (93) 06/27/17 20:00 40 06/27/17 18:00 107 06/27/17 18:00 107 55 124/65 (84) 98 123/60 (81) 06/27/17 17:00 105 58 124/66 (85) 97 128/60 (82) 06/27/17 16:00 98.1 98 56 109/59 (76) 97 115/57 (76) 06/27/17 16:00 98 06/27/17 16:00 40 06/27/17 15:09 97 40 06/27/17 15:00 96 61 118/62 (80) 97 110/57 (74) 06/27/17 14:00 99 06/27/17 14:00 99 29 122/63 (82) 96 110/58 (75) 06/27/17 13:00 108 48 124/68 (86) 95 116/59 (78) 06/27/17 12:00 40 06/27/17 12:00 99.0 107 43 151/65 (93) 95 123/59 (80) 06/27/17 12:00 107 06/27/17 11:59 95 40 06/27/17 11:00 107 53 141/64 (89) 95 125/57 (79) 06/27/17 10:12 107 131/56 06/27/17 10:00 106 06/27/17 10:00 106 38 134/64 (87) 95 126/57 (80) 06/27/17 10:00 40 06/27/17 09:00 97 61 123/61 (81) 96 176/176 (176) 06/27/17 08:55 96 40 06/28/17 06/28/17 06/28/17 07:00 15:00 23:00 Intake Total 616 ml Output Total 800 ml Balance -184 ml Result Diagram: 06/28/17 0652 06/28/17 0652 Laboratory Results Laboratory Tests Test 06/28/17 05:28 06/28/17 06:52 Blood Gas Puncture Site ART LINE Blood Gas Patient Temperature 98.6 Blood Gas HCO3 23 mmol/L Blood Gas Base Excess -0.8 mmol/L Blood Gas Oxygen Saturation 96 % Arterial Blood pH 7.45 Arterial Blood Partial Pressure CO2 33 mmHg Arterial Blood Partial Pressure O2 106 mmHg Arterial Blood Oxygen Content 14.4 Vol % Arterial Blood Carboxyhemoglobin 1.1 % Arterial Blood Methemoglobin 1.3 % Blood Gas Hemoglobin 10.6 G/DL Oxygen Delivery Device VENTILATOR Blood Gas Ventilator Setting PRVC/AC Blood Gas Inspired Oxygen 40 % White Blood Count 14.0 TH/MM3 Red Blood Count 3.72 MIL/MM3 Hemoglobin 10.4 GM/DL Hematocrit 31.4 % Mean Corpuscular Volume 84.3 FL Mean Corpuscular Hemoglobin 27.9 PG Mean Corpuscular Hemoglobin Concent 33.1 % Red Cell Distribution Width 16.0 % Platelet Count 15 TH/MM3 Mean Platelet Volume 10.2 FL Blood Urea Nitrogen 39 MG/DL Creatinine 0.92 MG/DL Random Glucose 144 MG/DL Total Protein 5.4 GM/DL Albumin 2.0 GM/DL Calcium Level 7.6 MG/DL Alkaline Phosphatase 392 U/L Aspartate Amino Transf (AST/SGOT) 333 U/L Alanine Aminotransferase (ALT/SGPT) 189 U/L Total Bilirubin 2.3 MG/DL Sodium Level 140 MEQ/L Potassium Level 4.1 MEQ/L Chloride Level 108 MEQ/L Carbon Dioxide Level 23.8 MEQ/L Anion Gap 8 MEQ/L Estimat Glomerular Filtration Rate 82 ML/MIN Administered Medications Medications (Trade) Dose Ordered Sig/[place] Route PRN Reason Start Time Stop Time Status Last Admin Dose Admin Acetaminophen/ Hydrocodone Bitart ([place] 5-325 Mg) 1 tab Q4H PRN PO PAIN SCALE 1 TO 5 06/17/17 22:00 06/17/17 22:02 Acetaminophen/ Hydrocodone Bitart ([place] 5-325 Mg) 2 tab Q4H PRN PO PAIN SCALE 6 TO 10 06/17/17 22:00 06/21/17 20:40 Ondansetron HCl (Zofran Inj) 4 mg Q4H PRN IV PUSH NAUSEA/VOMITING 06/17/17 22:00 06/18/17 09:45 Miscellaneous Information Patient in critical care unit? Ass... [id number] 06/18/17 05:45 06/18/17 05:45 Vasopressin 40 units/Dextrose 100 ml @ 6 mls/hr [id number] IV 06/18/17 15:29 06/19/17 08:09 Metoclopramide HCl (Reglan Inj) 5 mg Q8H IV PUSH 06/18/17 17:00 06/28/17 01:01 Potassium Chloride 100 ml @ 50 mls/hr Q2H PRN IV For Potassium 2.8 - 3.2 mEq/L 06/19/17 07:45 06/21/17 03:31 Potassium Chloride 100 ml @ 50 mls/hr Q2H PRN IV For Potassium 3.3 - 3.5 mEq/L 06/19/17 07:45 06/22/17 17:22 Sodium Phosphate 30 mmol/Sodium Chloride 250 ml @ 42 mls/hr UNSCH PRN IV For Phosphorus < 2.5 mg/dL 06/19/17 07:45 06/20/17 17:06 Fat Emulsion Intravenous 250 ml @ 10 mls/hr Q24H IV-CENTRAL 06/19/17 20:00 06/27/17 20:44 Insulin Aspart (NovoLOG SUPPLEMENTAL SCALE) 1 Q4HR SQ 06/19/17 12:00 06/21/17 20:34 Sodium Chloride 40 meq/Sodium Acetate 59 meq/ Potassium Chloride 40 meq/ Sodium Phosphate 40 meq/Magnesium Chloride 10 meq/ Calcium Chloride 9 meq/ Multivitamins 10 ml/Folic Acid 1 mg/Insulin Human Regular 40 units/ Amino Acids/ Dextrose 2,091.7937 ml @ 50 mls/hr Q24H IV-CENTRAL 06/19/17 20:00 06/27/17 20:44 Vancomycin HCl (VANCOMYCIN for oral use only) 500 mg QID NG 06/19/17 18:00 06/27/17 20:44 Phenylephrine HCl 160 mg/Dextrose 500 ml @ 7.5 mls/hr TITRATE PRN IV Blood pressure management 06/19/17 19:15 06/24/17 00:32 Chlorhexidine Gluconate (Peridex 0.12% Liq) 15 ml BID@08,20 MT 06/20/17 08:00 06/27/17 20:00 Metronidazole 100 ml @ 100 mls/hr Q8H IV 06/20/17 09:00 06/28/17 01:01 Albuterol/ Ipratropium (Duoneb Neb) 1 ampule Q2HR NEB PRN NEB SHORTNESS OF BREATH 06/20/17 09:15 06/27/17 05:56 Acetaminophen (Tylenol 650 Mg/ 20 ml Liq) 650 mg Q6H PRN PO fever>100.5 06/20/17 16:30 06/23/17 03:57 Pantoprazole Sodium (Protonix Inj) 40 mg Q12H IV PUSH 06/21/17 07:00 06/28/17 05:09 Alvimopan (Entereg) 12 mg Q12HR NG 06/22/17 12:00 06/27/17 20:45 Albumin Human 50 ml @ 60 mls/hr Q12H IV 06/22/17 15:00 06/28/17 03:00 Vancomycin HCl 250 mg/Sodium Chloride 102.5 ml @ 0 mls/hr TID IRRIGATION 06/23/17 13:00 06/27/17 18:35 Midazolam HCl 100 ml @ 2 mls/hr TITRATE PRN IV SEDATION 06/23/17 16:15 06/28/17 05:13 Diltiazem HCl 125 mg/Sodium Chloride 125 ml @ 5 mls/hr TITRATE PRN IV Tachycardia 06/24/17 15:00 06/28/17 05:13 Albuterol/ Ipratropium (Duoneb Neb) 1 ampule Q6HR NEB NEB 06/24/17 16:00 06/28/17 07:50 Digoxin (Lanoxin Inj) 0.125 mg DAILY IV PUSH 06/25/17 13:30 06/27/17 08:42 Objective Remarks GENERAL APPEARANCE: Mr. Armendariz is a middle-aged/elderly male. He is laying in bed. He is non-responsive. He is intubated, ventilated and sedated. HEENT: Head atraumatic, normocephalic. Conjunctivae are pale. Sclerae are anicteric, EOMI, PERRLA, oral exam no pharyngeal erythema. NECK: No palpable cervical or supraclavicular lymphadenopathy. RESPIRATORY: Good air movement bilaterally. No added breath sounds. He has prolonged expiratory phase. He is initiating multiple spontaneous breaths. CARDIOVASCULAR: Irregular, tachycardiac, S1 S2, no obvious murmurs, rubs or gallops. ABDOMEN: The belly is soft. An ileostomy bag is noted containing liquid stools. A well-healing laparotomy incision in the midline is appreciated. The abdomen does not appear to be distended, there appears to be no significant increase in tympany on percussion. There are no signs of acute abdomen. LOWER EXTREMITIES: No pretibial edema, no calf tenderness. Upper extremities: Right upper extremity with edema. MUSCULOSKELETAL: There appears to be muscle atrophy. 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 Assessment/Plan Assessment Mr. Armendariz is a 67-year-old male who was recently diagnosed with metastatic adenocarcinoma of the rectosigmoid colon and had resection of a metastatic deposit to the liver. He is status post primary surgical resection as well as wedge resection of a metastatic deposit to the liver and now has C difficile colitis. 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 Plan 1: Thrombocytopenia with positive Heparin/PLT factor 4 Joanne antibody: Await SMILEY (pending as of the morning of 06/28/2017). He has an an upper extremity thrombosis. Not on anticoagulation at this time, his PTT is prolonged, but this is likely due to decreased hepatic synthetic function due to liver dysfunction (he appears to have had a shock liver). Continue monitoring and treat supportively. One unit platelet transfusion has been ordered for today. If his hepatic synthetic function remains poor and if his coags remained prolonged he may require FFP transfusion for replacement of coagulation factors as well as naturally occurring anticoagulants such as protein C and protein S. 2. Metastatic colon carcinoma: Await recovery before addressing this. 3. It may be reasonable to involve palliative care given the multi organ failure and his underlying diagnosis of metastatic colon carcinoma. His overall prognosis is poor. Faraz Ryan MD Jun 28, 2017 08:13
[2017-06-28] MEDS ORDERED: diphenhydrAMINE HCL 25 MG CAP PO PRN (08:15)
[2017-06-28] MEDS ORDERED: SODIUM CHLOR 0.9% 250 ML INJ 250 ML IV ONE (08:15)
[2017-06-28] MEDS ORDERED: ACETAMINOPHEN 325 MG TAB PO PRN (08:15)
[2017-06-28] MEDS: CHLORHEXIDINE 0.12% (ORAL KIT) 15 ML CUP MT SCH ×2 (08:22→20:48)
[2017-06-28] MEDS: VASOPRESSIN INJ 40 UNITS in DEXTROSE 5% IN WATER 100ML INJ 98 ML IV SCH ×4 (08:49→23:57)
--- NOTE | 2017-06-28 09:34 | HHI.CCPN ---
Subjective Remarks/Hospital Course The patient is a 67-year-old male with past medical history of hypertension, metastatic colon cancer, tobacco abuse, who, about 3 weeks ago underwent low anterior resection with low colorectal anastomosis, diverting ileostomy, and resection of a segment of the left ureter with ureteral anastomosis and double- J stent placement. He presented yesterday with 5 day history of abdominal discomfort and increasing weakness. No history of high output from ileostomy. He was admitted to the colorectal surgery for dehydration and probable UTI. He was placed on ciprofloxacin and IV hydration. According to Dr. Geiger's note it was difficult dissection/resection colon mass because of the pelvic sidewall adherence and the adherence to the left ureter. A portion of ureter was resected due to possibility of tumor infiltration, and Dr. Augustine Pelayo re- anastomosed the ureter and placed left-sided double-J stent. Also 1 cm hepatic metastasis in his liver that was excised. Hospitalist consultation was requested for medical management and evaluation of tachycardia today. He was seen by Dr. Jay and was placed on infusion of Cardizem for heart rate 140s. Patient became hypotensive with systolic blood pressure early 90s. Lab work showed WBC 14.5 with 44% bands, creat increase from 1.2 to 1.4 and severely increased lactate at 8 from admission lactate of 2.6. CT of the abdomen pelvis done yesterday showed probable small bowel ileus. I evaluated the patient in the ICU. He is tachycardic in 140s, hypotensive and systolic blood pressure in mid 80s. Clinically appears very dehydrated, an NG tube was placed with approximately 3 L of some coffee-ground output. ABG shows a base excess of -10 and bicarbonate 12. I have ordered 4 liter normal saline boluses start 1 amp of bicarbonate, discontinued the LR infusion, and started bicarb gtt. Discontinue ciprofloxacin, started Zosyn every 6 hours, vancomycin 1 g 1. His elevated lactic acid and bandemia most likely secondary to severe sepsis, ileus, and severe dehydration. Serial lactate is ordered SUBJ 06/19: Lactic acid remains elevated at 6.6 despite getting 9 L of crystalloid boluses in last 24 hours. Tachycardia has improved heart rate in 110s. Remains on vasopressin at 0.04 units/min. Urine output almost 1200 mL overnight, OGT initial output was almost 3 L when placed yesterday a.m. Overnight had 550 mL of greenish brown fluid output. EGD pending today rule out gastric ischemia per Dr. Romero. Apparently Flex sig was negative post op in Dr. Geiger's office 06/20: Developed A. fib with RVR. Heart rate 200. Hemodynamically unstable, synchronized cardioversion attempted by Dr. Morales 100 200 J. Given 3 g mag sulfate and 80 mEq KCl 1, 0.5 digoxin 1 and started on amiodarone and Giorgio- Synephrine. Intubated due to hemodynamic instability. Currently remains sedated. Currently on Giorgio-Synephrine 80 mcg/m, and amiodarone. CT chest abdomen pelvis again confirms gastric and small bowel distention/ileus. UO 1800 ml in 24 hours 06/21: Remains critically ill, intubated sedated, on 100 mcg/min neosynpehrine. HR better controlled. NG output 1500, UO >1.4L. Am labs pending. Ileostomy sample positive for C Diff on PO vanc IV Flagyl. 06/22: Remains intubated sedated. Urine output 3000 mL with Bumex. NGT [address] Geiger did colonoscopy which was normal. Ileoscopy showed pseudomembranous colitis. Currently on 200 mcg/min of neosynephrine. Afib with RVR HR in 140's 06/23: Remains intubated sedated, remains in atrial fibrillation with RVR. Still requiring high doses of Giorgio-Synephrine at 190 mcg/min. UO 2.5L. chest x- ray showed bilateral large effusions. KUB shows improving small bowel distention. WBC count is slightly improved 06/24: Unable to control HR. Repeat shock x3 today. remains in atrial fibrillation with RVR rates 160-170 intermittently. Remains on amiodarone but will discontinued due to elevation of liver enzymes AST 546 ALT 158. (GI notified). Start Cardizem infusion and also give Surjit 0.5 mg 1. Platelet count continues to drop from 67 to today 45. Hematology following will start of Argatroban today. Creatinine has slightly increased to 1.3 to will DC Bumex infusion 06/25: Patient remains intubated sedated critically ill. Heart rate controlled for the first time since atrial fibrillation started. Heart rate remains 80- 90. Urine output 1200 mL in 24 hours but BUN/creatinine increasing 44/1.7. I will hydrate with 50 mL/hr normal saline for 24 hours. Transaminitis increasing AST 1300 ALT 386. Ultrasound of the liver unremarkable GI following 06/26: PTT elevated due to Argatorban/Liver failure. Dr. Hurley has DCd argatroban. SMILEY pending. Pl count is 21. Currently in sinus rhythm on Cardizem infusion. Not on any pressors. Creatinine improved to 1.2. Urine output adequate. Becomes very tachypneic on attempted CPAP. Discussed with Dr. Geiger Will Start Trickle Tube Feeds 06/27: no improvements. off pathway. thrombocytopenia persists. unable to wean from mechanical ventilation. neuro exam poor. will likely need trach. 06/28: platelets worse today. SMILEY not resulted yet. failing SBT and mental status poor. poor prognosis. will need trach and LTAC placement. Objective Vital Signs Date Time Temp Pulse Resp B/P (MAP) Pulse Ox O2 Delivery O2 Flow Rate FiO2 06/28/17 07:45 99 40 06/28/17 06:00 109 06/28/17 05:13 137/78 06/28/17 04:00 98.0 26 Intake and Output 06/28/17 06/28/17 06/29/17 08:00 16:00 00:00 Intake Total 616 ml Output Total 800 ml Balance -184 ml Result Diagram: 06/28/17 0652 06/28/17 0652 Other Results Laboratory Tests Test 06/28/17 05:28 Blood Gas Puncture Site ART LINE Blood Gas Patient Temperature 98.6 Blood Gas HCO3 23 mmol/L (22-26) Blood Gas Base Excess -0.8 mmol/L (-2-2) Blood Gas Oxygen Saturation 96 % (90-100) Arterial Blood pH 7.45 (7.380-7.420) Arterial Blood Partial Pressure CO2 33 mmHg (38-42) Arterial Blood Partial Pressure O2 106 mmHg (61-120) Arterial Blood Oxygen Content 14.4 Vol % (12.0-20.0) Arterial Blood Carboxyhemoglobin 1.1 % (0-4) Arterial Blood Methemoglobin 1.3 % (0-2) Blood Gas Hemoglobin 10.6 G/DL (12.0-16.0) Oxygen Delivery Device VENTILATOR Blood Gas Ventilator Setting PRVC/AC Blood Gas Inspired Oxygen 40 % Imaging CT abdomen pelvis shows distal small bowel dilatation Chest x-ray no acute findings KUB shows ileus Objective Remarks GENERAL: middle-aged male intubated sedated critically ill. SKIN: Warm and dry. HEENT: Extraocular muscles intact. NECK: The neck is supple. LIJ central line in place CHEST:Few coarse rhonchi Equal bilaterally. Becomes tachypneic on CPAP CVS: Afib with HR in 110s, irregularly irregular. ABDOMEN: Abdomen is slightly distended, soft. Incision appears healing well. Ileostomy is functioning well. NGT output decreasing EXTREMITIES: No pedal edema or cyanosis NEURO: Intubated heavily sedated. Moves all extremities, not following commands A/P Assessment and Plan ASSESSMENT Severe sepsis- resolving. C Diff enteritis/ileitis Acute hypoxemic respiratory failure - persistent. Atrial fibrillation with RVR - persistent. Acute kidney injury Transaminitis Ileus Lactic acidemia Thrombocytopenia/probable HIT Probable UTI s/p Left colectomy with colorectal anastomosis, diverting ileostomy, wedge resection of liver metastasis s/p Partial resection of the left ureter with anastomosis and placement of double-J stent Hypertension Tobacco abuse Hypokalemia, hypomagnesemia PLAN: NEURO: - Versed for sedation and vent synchrony - Attempt daily sedation vacation, poor neuro exam. RESP: - ACV PEEP 5. FiO2 40%. - DuoNeb q6hr and PRN, vent bundle - Attempt daily SBT, continues to fail due to severe tachypnea on pressure support - Bilateral small pleural effusion on chest x-ray CV: - Cardioverted several times without success and amiodarone started for A. fib with RVR - Amio DCd 06/24 due to Liver enzyme elevation.remains on Cardizem infusion and Digoxin. still back in afib with variable rate. very resistant afib and difficult to control. - IV Heparin discontinued due to Hit screen positive hematology consulted. Argatroban DCd today by Dr. Hurley - s/p Normal saline IV fluids 8L boluses on 06/18/17, No IVF now except TPN - Bumex DCd 06/24 due to increasing creatinine. NS 50 ml per hour for 24 hours 06/25-06/26. Creatinine improved to 1.2 - 2D Echo normal LV function GI: - NPO, Protonix gtt, TPN. D/W Dr. Geiger, Trickle feeds - Transaminitis most likely secondary to amiodarone and TPN and hypotension, interval worsening AST 1300, ALT 386, today improved to 686/276 - Gastroenterology Dr. Saldana. EGD 06/19. Evidence of esophagitis, and erythematous gastritis in the gastric body and gastric antrum - C Diff positive from ileostomy sample indicating C Diff enteritis. On PO vanc and IV Flagyl - Dr. Tran 06/22. Colonoscopy normal. Ileoscopy severe pseudomembranous ileitis - IV Reglan [address] Prev [address] abdomen pelvis and KUB shows small bowel ileus., KUB 06/23 improving ileus - Continue Entereg : - Monitor renal function closely. Han catheter. UO adequate - IV NS for 24 hours, stop today. Creat has improved ID: - ID Dr. Espinoza - PO Vancomycin and IV Flagyl for C diff enteritis - F/u blood and urine culture -negative to date HEME: Thrombocytopenia, hit screen positive - Monitor CBC, CMP - HIT screen positive- consulted hematology SMILEY pending - Argatroban started 06/24/17, DCd 06/26/[address] Hurley - According to Dr. Hurley elevated PTT secondary to decreased liver clearance of argatroban - Once PTT normal, use Arixtra. ENDO: - Electrolyte replacement per protocol - Aggressive K and Mag replacement PROPH: -Bilateral lower extremity SCDs. No anticoagulation until PT/PTT checked 06/27 , IV Protonix 40 q12 LINES: - Left IJ central line, radial art line Critically ill stable. Multi organ involvement makes diagnosis still guarded. Needs placement and long-term vent wean. Michi Child MD Jun 28, 2017 09:34
--- NOTE | 2017-06-28 11:38 | HHI.IDPN ---
Note Infectious Disease Note Patient on vent. 40% D/C with RN. Failed CPAP. Sedated. No meaningful response. Now in sinus rhythm. Afebrile. Has bloody urine and bleeding via stoma. Admitted to the hospital with weakness, abdominal pain and nausea. The patient is status post anterior resection of colon and rectal areas and anastomosis along with a diverting ileostomy and also resection of a segment of left ureter with ureteral anastomosis and double-J stent placement three weeks prior. PAST MEDICAL HISTORY: 1. Hypertension. 2. Left knee surgery. 3. Metastatic colon cancer status post resection and coloanal anastomosis and also resection and re-anastomosis of the left ureter with double-J stent placement. ALLERGIES: 1. CODEINE. MEDICATIONS: 1. Metronidazole. 2. PO Vancomycin. 3. Vanco irrigation. SOCIAL HISTORY: . Positive tobacco use. No alcohol. No illicit drug use. OBJECTIVE: Vital Signs Date Time Temp Pulse Resp B/P (MAP) Pulse Ox O2 Delivery O2 Flow Rate FiO2 06/28/17 11:31 95 40 06/28/17 10:00 111 06/28/17 08:15 40 06/28/17 08:00 40 06/28/17 08:00 99.3 108 55 136/64 (88) 98 119/89 (99) 06/28/17 08:00 108 06/28/17 07:45 40 06/28/17 07:45 99 40 06/28/17 07:44 40 06/28/17 06:00 109 06/28/17 05:13 109 137/78 06/28/17 04:18 99 40 06/28/17 04:00 40 06/28/17 04:00 98.0 108 26 119/69 (86) 99 126/74 (91) 06/28/17 04:00 108 06/28/17 02:00 106 06/28/17 00:00 98.0 112 59 127/70 (89) 100 122/67 (85) 06/28/17 00:00 112 06/28/17 00:00 40 06/27/17 23:39 100 40 06/27/17 22:00 101 06/27/17 20:45 103 118/66 06/27/17 20:05 97 40 06/27/17 20:00 118 06/27/17 20:00 98.3 118 58 129/69 (89) 96 135/72 (93) 06/27/17 20:00 40 06/27/17 18:00 107 06/27/17 18:00 107 55 124/65 (84) 98 123/60 (81) 06/27/17 17:00 105 58 124/66 (85) 97 128/60 (82) 06/27/17 16:00 98.1 98 56 109/59 (76) 97 115/57 (76) 06/27/17 16:00 98 06/27/17 16:00 40 06/27/17 15:09 97 40 06/27/17 15:00 96 61 118/62 (80) 97 110/57 (74) 06/27/17 14:00 99 06/27/17 14:00 99 29 122/63 (82) 96 110/58 (75) 06/27/17 13:00 108 48 124/68 (86) 95 116/59 (78) 06/27/17 12:00 40 06/27/17 12:00 99.0 107 43 151/65 (93) 95 123/59 (80) 06/27/17 12:00 107 06/27/17 11:59 95 40 Laboratory Tests Test 06/27/17 04:22 06/28/17 06:52 White Blood Count 10.1 TH/MM3 14.0 TH/MM3 Red Blood Count 3.52 MIL/MM3 3.72 MIL/MM3 Hemoglobin 9.8 GM/DL 10.4 GM/DL Hematocrit 29.6 % 31.4 % Mean Corpuscular Volume 84.2 FL 84.3 FL Mean Corpuscular Hemoglobin 28.0 PG 27.9 PG Mean Corpuscular Hemoglobin Concent 33.2 % 33.1 % Red Cell Distribution Width 15.7 % 16.0 % Platelet Count 18 TH/MM3 15 TH/MM3 Mean Platelet Volume 9.3 FL 10.2 FL Neutrophils (%) (Auto) 85.4 % Lymphocytes (%) (Auto) 4.6 % Monocytes (%) (Auto) 8.3 % Eosinophils (%) (Auto) 0.5 % Basophils (%) (Auto) 1.2 % Neutrophils # (Auto) 8.6 TH/MM3 Lymphocytes # (Auto) 0.5 TH/MM3 Monocytes # (Auto) 0.8 TH/MM3 Eosinophils # (Auto) 0.0 TH/MM3 Basophils # (Auto) 0.1 TH/MM3 CBC Comment AUTO DIFF Differential Total Cells Counted 100 Neutrophils % (Manual) 75 % Band Neutrophils % 6 % Lymphocytes % 8 % Monocytes % 5 % Neutrophils # (Manual) 8.8 TH/MM3 Metamyelocytes 4 % Myelocytes 1 % Promyelocytes 1 % Nucleated Red Blood Cells 8 /100 WBC Differential Comment FINAL DIFF MANUAL Platelet Estimate RARE Platelet Morphology Comment ENLARGED Laboratory Tests Test 06/27/17 04:22 06/28/17 06:52 Blood Urea Nitrogen 39 MG/DL 39 MG/DL Creatinine 0.93 MG/DL 0.92 MG/DL Random Glucose 129 MG/DL 144 MG/DL Total Protein 5.0 GM/DL 5.4 GM/DL Albumin 2.0 GM/DL 2.0 GM/DL Calcium Level 7.8 MG/DL 7.6 MG/DL Magnesium Level 2.1 MG/DL Alkaline Phosphatase 268 U/L 392 U/L Aspartate Amino Transf (AST/SGOT) 460 U/L 333 U/L Alanine Aminotransferase (ALT/SGPT) 217 U/L 189 U/L Total Bilirubin 2.0 MG/DL 2.3 MG/DL Sodium Level 139 MEQ/L 140 MEQ/L Potassium Level 3.6 MEQ/L 4.1 MEQ/L Chloride Level 105 MEQ/L 108 MEQ/L Carbon Dioxide Level 24.5 MEQ/L 23.8 MEQ/L Anion Gap 10 MEQ/L 8 MEQ/L Estimat Glomerular Filtration Rate 81 ML/MIN 82 ML/MIN IMAGING: Chest X-Ray 06/27/17599 Signed Impressions: Service Date/Time: Tuesday, June 27, 2017 04:23 - CONCLUSION: 1. Stable chest. 2. Bilateral patchy opacities and probable small pleural effusions. Sarwat Suarez MD Abdomen X-Ray 06/27/17 06 Signed Impressions: Service Date/Time: Tuesday, June 27, 2017 04:29 - CONCLUSION: Stable abdomen. Sarwat Suarez MD Liver Ultrasound 06/24/17 0000 Signed Impressions: Service Date/Time: Saturday, June 24, 2017 16:38 - CONCLUSION: 1. Small volume ascites. 2. Small right effusion. Pierce Ospina Jr., MD Upper Extremity Ultrasound 06/23/17 0000 Signed Impressions: Service Date/Time: June 20:03 - CONCLUSION: Noncompressibility right cephalic vein and left basilic vein consistent with venous thrombosis Trav Hsieh MD Lower Extremity Ultrasound 06/23/17 0000 Signed Impressions: Service Date/Time: June 20:16 - CONCLUSION: Normal examination. No evidence DVT Trav Hsieh MD Chest CT 06/20/17 0000 Signed Impressions: Service Date/Time: Tuesday, June 20, 2017 07:42 - CONCLUSION: 1. Bilateral effusions and consolidative changes in both lung bases. Bao Lora MD Abdomen/Pelvis CT 06/20/17 Signed Impressions: Service Date/Time: Tuesday, June 20, 2017 07:39 - CONCLUSION: 1. Dilated stomach and multiple dilated loops of small bowel, likely ileus. 2. No definite gastric volvulus. 3. Fat containing right inguinal hernia which also contains small portion of the urinary bladder and minimal fluid. 4. Left-sided nephroureteral stent in good position. 5. Bibasilar consolidation and small pleural effusions. Sarwat Suarez MD PHYSICAL EXAMINATION: GENERAL: No acute distress. On the vent. labored respirations. HEAD, EYES, EARS, NOSE, THROAT: No icterus. Oropharynx with dry mucosa. NECK: The neck is supple. LUNGS: Decreased breath sounds. HEART: Regular S1-S2 without murmurs, rubs or gallops. ABDOMEN: Diminished bowel sounds. Soft. EXTREMITIES: No clubbing or cyanosis or edema. SKIN: No rash. NEUROLOGIC: Nonfocal. IMPRESSION: 1. Bandemia in a patient with lactic acidosis. The patient is status post recent surgery for rectal cancer and recent ureteral resection and double J ureteral stent. Severe sepsis based on parameters including hypotension. 2. C difficile colitis. Pseudomembranous enteritis/sepsis. 3. Acute respiratory failure. 4. Abnormal CXR - probable atelectasis. 5. Leukocytosis. 6. Elevated LFT's. RECOMMENDATIONS: 1. Continue Flagyl IV. 2. Continue PO Vancomycin. El Espinoza MD Jun 28, 2017 11:38
--- NOTE | 2017-06-28 13:54 | HHI.PR ---
Subjective Remarks Pt remains on vent. Remains heavily sedated. Objective Vital Signs Date Time Temp Pulse Resp B/P (MAP) Pulse Ox O2 Delivery O2 Flow Rate FiO2 06/28/17 12:20 98.0 112 28 116/72 97 06/28/17 12:00 98.3 116 29 141/72 (95) 96 129/79 (96) 06/28/17 12:00 116 06/28/17 12:00 40 06/28/17 11:55 98.6 116 29 118/76 96 06/28/17 11:31 95 40 06/28/17 10:00 111 06/28/17 08:15 40 06/28/17 08:00 40 06/28/17 08:00 99.3 108 55 136/64 (88) 98 119/89 (99) 06/28/17 08:00 108 06/28/17 07:45 40 06/28/17 07:45 99 40 06/28/17 07:44 40 06/28/17 06:00 109 06/28/17 05:13 109 137/78 06/28/17 04:18 99 40 06/28/17 04:00 40 06/28/17 04:00 98.0 108 26 119/69 (86) 99 126/74 (91) 06/28/17 04:00 108 06/28/17 02:00 106 06/28/17 00:00 98.0 112 59 127/70 (89) 100 122/67 (85) 06/28/17 00:00 112 06/28/17 00:00 40 06/27/17 23:39 100 40 06/27/17 22:00 101 06/27/17 20:45 103 118/66 06/27/17 20:05 97 40 06/27/17 20:00 118 06/27/17 20:00 98.3 118 58 129/69 (89) 96 135/72 (93) 06/27/17 20:00 40 06/27/17 18:00 107 06/27/17 18:00 107 55 124/65 (84) 98 123/60 (81) 06/27/17 17:00 105 58 124/66 (85) 97 128/60 (82) 06/27/17 16:00 98.1 98 56 109/59 (76) 97 115/57 (76) 06/27/17 16:00 98 06/27/17 16:00 40 06/27/17 15:09 97 40 06/27/17 15:00 96 61 118/62 (80) 97 110/57 (74) 06/27/17 14:00 99 06/27/17 14:00 99 29 122/63 (82) 96 110/58 (75) I/O 06/27/17 06/27/17 06/27/17 06/28/17 06/28/17 06/28/17 07:00 15:00 23:00 07:00 15:00 23:00 Intake Total 917 ml 139 ml 1066 ml 616 ml 310 ml Output Total 825 ml 0 ml 800 ml 800 ml 0 ml Balance 92 ml 139 ml 266 ml -184 ml 310 ml IV Total 139 ml 952 ml 450 ml Tube Feeding 82 ml 114 ml 166 ml TPN/PPN 696 ml Lipid 139 ml Platelets 290 ml Blood Product IV Normal Saline Flush 20 ml Output Urine Total 625 ml 550 ml 500 ml Stool Total 200 ml 250 ml 300 ml Tube Feeding Residual Discard 0 ml 0 ml Result Diagram: 06/28/1752 06/28/1752 Objective Remarks VS-S Rate controlled Gen: Pt comfortable Abd: Soft. Mild distention. Wound healed. Stoma with clear fluid D/C Ext: Mild edema Labs: Platelets down more to 15K. I&Os: OK Assessment and Plan Assessment and Plan Stable at present. LFTs improving. Hopefully platelet will improve as C. Diff sepsis improves. Continue oral Vanco and Flagyl. Started Vancomycin 250mg/100cc irrigating TID thru Ileostomy. Tube feeds to eventually wean TPN to improve LFTs and Bili.. Continue to support. Per [facility] Luca Geiger MD Jun 28, 2017 13:54
--- NOTE | 2017-06-28 16:29 | HHI.GIFU ---
Subjective Remarks Pt continues to be critically ill. Platelet count is continuing to drop due to heparin induced platelet abs. He has C diff under treatment. He has metastatic colon cancer. No ct of abdomen for about one week. He has an ileostomy and vanco is getting infused there as well as via NG tube. He may need trach and PEG tube soon. Objective Vitals I&O Vital Signs Date Time Temp Pulse Resp B/P (MAP) Pulse Ox O2 Delivery O2 Flow Rate FiO2 06/28/17 14:00 109 06/28/17 12:20 98.0 112 28 116/72 97 06/28/17 12:00 98.3 116 29 141/72 (95) 96 129/79 (96) 06/28/17 12:00 116 06/28/17 12:00 40 06/28/17 11:55 98.6 116 29 118/76 96 06/28/17 11:31 95 40 06/28/17 10:00 111 06/28/17 08:15 40 06/28/17 08:00 40 06/28/17 08:00 99.3 108 55 136/64 (88) 98 119/89 (99) 06/28/17 08:00 108 06/28/17 07:45 40 06/28/17 07:45 99 40 06/28/17 07:44 40 06/28/17 06:00 109 06/28/17 05:13 109 137/78 06/28/17 04:18 99 40 06/28/17 04:00 40 06/28/17 04:00 98.0 108 26 119/69 (86) 99 126/74 (91) 06/28/17 04:00 108 06/28/17 02:00 106 06/28/17 00:00 98.0 112 59 127/70 (89) 100 122/67 (85) 06/28/17 00:00 112 06/28/17 00:00 40 06/27/17 23:39 100 40 06/27/17 22:00 101 06/27/17 20:45 103 118/66 06/27/17 20:05 97 40 06/27/17 20:00 118 06/27/17 20:00 98.3 118 58 129/69 (89) 96 135/72 (93) 06/27/17 20:00 40 06/27/17 18:00 107 06/27/17 18:00 107 55 124/65 (84) 98 123/60 (81) 06/27/17 17:00 105 58 124/66 (85) 97 128/60 (82) I/O 06/27/17 06/27/17 06/27/17 06/28/17 06/28/17 06/28/17 07:00 15:00 23:00 07:00 15:00 23:00 Intake Total 917 ml 139 ml 1066 ml 616 ml 310 ml 293 ml Output Total 825 ml 0 ml 800 ml 800 ml 0 ml Balance 92 ml 139 ml 266 ml -184 ml 310 ml 293 ml IV Total 139 ml 952 ml 450 ml 293 ml Tube Feeding 82 ml 114 ml 166 ml TPN/PPN 696 ml Lipid 139 ml Platelets 290 ml Blood Product IV Normal Saline Flush 20 ml Output Urine Total 625 ml 550 ml 500 ml Stool Total 200 ml 250 ml 300 ml Tube Feeding Residual Discard 0 ml 0 ml Laboratory Laboratory Tests Test 06/28/17 05:28 06/28/17 06:52 Blood Gas Puncture Site ART LINE Blood Gas Patient Temperature 98.6 Blood Gas HCO3 23 Blood Gas Base Excess -0.8 Blood Gas Oxygen Saturation 96 Arterial Blood pH 7.45 Arterial Blood Partial Pressure CO2 33 Arterial Blood Partial Pressure O2 106 Arterial Blood Oxygen Content 14.4 Arterial Blood Carboxyhemoglobin 1.1 Arterial Blood Methemoglobin 1.3 Blood Gas Hemoglobin 10.6 Oxygen Delivery Device VENTILATOR Blood Gas Ventilator Setting PRVC/AC Blood Gas Inspired Oxygen 40 White Blood Count 14.0 Red Blood Count 3.72 Hemoglobin 10.4 Hematocrit 31.4 Mean Corpuscular Volume 84.3 Mean Corpuscular Hemoglobin 27.9 Mean Corpuscular Hemoglobin Concent 33.1 Red Cell Distribution Width 16.0 Platelet Count 15 Mean Platelet Volume 10.2 Blood Urea Nitrogen 39 Creatinine 0.92 Random Glucose 144 Total Protein 5.4 Albumin 2.0 Calcium Level 7.6 Alkaline Phosphatase 392 Aspartate Amino Transf (AST/SGOT) 333 Alanine Aminotransferase (ALT/SGPT) 189 Total Bilirubin 2.3 Sodium Level 140 Potassium Level 4.1 Chloride Level 108 Carbon Dioxide Level 23.8 Anion Gap 8 Estimat Glomerular Filtration Rate 82 Date/Time Source Procedure Growth Status 06/20/17 17:11 Blood Peripheral Aerobic Blood Culture - Final NO GROWTH IN 5 DAYS Complete 10/16/17 17:11 Blood Peripheral Anaerobic Blood Culture - Final NO GROWTH IN 5 DAYS Complete 06/20/17 15:50 Urine Catheterized Urine Urine Culture - Final NO GROWTH IN 48 HOURS. Complete Physical Exam HEENT: Normocephalic; atraumatic; no jaundice. CHEST: OETT to vent. Tachypneic. Course breath sounds. CARDIAC: Irregular, HR 130's. Afib on monitor. ABDOMEN: Soft, distended, ileostomy with small liquid in ostomy bag. OGT with trickle feeds EXTREMITIES: BUE edema. SKIN: Normal; no rash; no jaundice. 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 Receiving TPN (started 06/19), started on amiodarone (started 06/19- off 06/24). LFTs were normal on 06/19. The AST went to 42 on 06/22 and 129 on 06/23. These spiked T. Bili 1.3, AST 546, ALT 158, Alk Phosph 197 on 06/24. Of note he had atrial fibrillation with RVR, HR 160's. His amiodarone was changed to Cardizem and his hr is now controlled, but he did have some hypotensive episodes overnight. This morning, his b/p is 106/56. Most likely, his LFT derangement is secondary to medications (suspect possibly combination of tpn and amiodarone), sepsis, possible congestive hepatopathyrelated to Afib with RVR. 06/25 had increase- (T. Bili 1.7, AST 1300, ALT 386, ALK Phosph 239) . Likely related to shocked liver from hypotensive episodes over night. Liver US (06/24/17)---> Small volume ascites. Small right effusion. ASMA negative. Alpha 1 Antitrypsin 221. Hepatitis panel pending., [place], AMA, Ceruloplasmin pending. AFP 3.3, Ferritin 5508. Iron saturation > 100%. He received one unit of blood on 06/18. Hfe gene. Recommend avoiding hepatotoxins, hypotensive episodes, and starting enteral feedings when able to from CRS standpoint. LFTs are improving/trending down. T. Bili 2.0, AST 460, ALT 217, Alk Phosph 268. - Severe sepsis with lactic acidosis with concern for possible bowel ischemia, CDifficile. Pt presented to ER with abdominal pain, n/v, generalized weakness. CT scan abdomen and pelvis with IV contrast (06/17/17)---> Dilatation of the distal small bowel when compared to proximal. Minimal colonic gas is evidence. Zone of transition appears to be in the right lower quadrant. I can see the transition but not etiology for such. BCx no growth 1 day, Urine cx 50-100,000 CFU/mL mixed mark. GI consulted for egd/ileoscopy to evaluate for bowel ischemia. S/P EGD/Colonoscopy (06/19/17)----> 1. There was LA Class B esophagitis noted 2. There was erythematous gastritis in the gastric body and gastric antrum; 2. 400cc of fluid suctioned from the stomach. ? gastric volvulus 3. Retroflexed views revealed no abnormalities Abnormal small bowel mucosa to 15cm. Pseudomembranous illeitis. ? ischemia. Pathology duodenal mucosa without significant histologic abnormality. moderate chronic gastritis and associated reactive epithelial changes. Negaive for helicobacter pylori, acute enteritis with features of ulceration. CDiff PCR (+) Epid 027 (-). ID following. CT scan abdomen and pelvis without contrast (06/20/17)---> dilated stomach and multiple dilated loops of small bowel, likely ileus. No definite gastric volvulus. Fat containing right ingional hernia which also contains small portion of the urinary bladder and minimal fluid. Left sided nephroureteral stent in good position. bibasilar consolidation and small pleural effusions. S/P Colonoscopy and ileoscopy (06/22/17)----> normal colonoscopy with ileal pseudomembranous colitis. ID is following. Flagyl, Oral Vanco, Vanco enemas via ileostomy. - CDiff. Vanco enemas via ileostomy/Oral vanco/Flagyl. ID following - PSBO/?Gastric volvulus. ? Volvulus on egd. Upper gi series ordered, d/c'd by CRS. CT scan abdomen and pelvis without contrast (06/20/17)---> dilated stomach and multiple dilated loops of small bowel, likely ileus. No definite gastric volvulus. Fat containing right ingional hernia which also contains small portion of the urinary bladder and minimal fluid. Left sided nephroureteral stent in good position. bibasilar consolidation and small pleural effusions. KUB (06/20/17)--> Nasogastric tube distal tip is in the gastric cardia region likely just beyond the GE junction. However, sentinel hole is in the distal esophagus, suggest advancement. Abnormally dilated small bowel obstruction. NGT to LIWS. TPN - Respiratory failure, small pleural effusion. Vent per CCM - NEIL. Creat. 0.93 - Anemia. S/P 1 unit prbc. 9.8/29.6 - Atrial fibrillation with RVR. Was started on amiodarone, but this is being changed to cardizem because his heart rate remained in 160 and he has elevated LFTs. - Thrombocytopenia. HIT (+), SMILEY pending. Plt 18,000. On argatroban. - Metastatic colon cancer. S/P lower anterior resection/coloanal anastomosis, resection and reanastomosis of the left ureter with ureteral anastomosis and double-J stent placement, wedge resection of hepatic metastasis, mobilization of the splenic flexure, and diverting closed loop ileostomy with Dr. Geiger and Dr. Pelayo on 05/26/17. Dr. Noel is his oncologist, but he has not seen him since his surgery PLAN: - Trickle feeds started, will defer to CRS - Cont. TPN for now - Cont. PPI - Await hepatitis profile, [place], ama, ceruloplasmin, Hfe gene - Abx per ID recommendations, Vanco enemas, Oral Vanco, Flagyl - Monitor labs - Supportive care - Avoid hepatotoxins - Avoid hypotensive episodes - Further recommendations to follow based on results of above Ronnie Chang MD Jun 28, 2017 16:29
[2017-06-28] MEDS: FAT EMULSION 20% INJ 250 ML (@10 mls/hr) IV-CENTRAL SCH (20:47)
[2017-06-28] MEDS: [UNRECOGNIZED DRUG - OTHER] IV-CENTRAL SCH ×10 (20:48)
[2017-06-28] MEDS: SODIUM ACETATE IV-CENTRAL SCH ×10 (20:48)
[2017-06-28] MEDS: SODIUM CHLORIDE IV-CENTRAL SCH ×10 (20:48)
[2017-06-28 23:53] LABS: UFH SEROTONIN RELEASE RESULT NEGATIVE (NEGATIVE)
[2017-06-29] VITALS (25 sets, daily range): BP systolic 97–161; BP diastolic 50–90; PULSE 94–145; RESP 20–54; TEMP 98.6–101; O2SAT 96–100
[2017-06-29] MEDS: METOCLOPRAMIDE HCL 10 MG/2 ML VIAL IV PUSH SCH ×3 (01:14→17:46)
[2017-06-29] MEDS: metroNIDAZOLE 500 MG INJ 100 ML IV SCH ×3 (01:15→17:46)
[2017-06-29] MEDS: DILTIAZEM INJ 125 MG in SODIUM CHLORIDE 0.9% INJ 100 ML IV PRN ×2 (02:26→16:28)
[2017-06-29] MEDS: ALBUMIN 25% INJ 50 ML IV SCH ×2 (02:27→14:25)
[2017-06-29] MEDS: INSULIN ASPART SUPPLEMENTAL SCALE SQ SCH ×5 (04:00→19:46)
[2017-06-29 04:33] LABS: HEMATOCRIT 28.3 % (39.0-51.0); MEAN CELL VOLUME 86.3 FL (80.0-100.0); MEAN CORPUSCULAR HGB CONC 32.4 % (32.0-36.0); PLATELET COUNT 51 TH/MM3 (150-450); RED BLOOD COUNT 3.27 MIL/MM3 (4.50-5.90); WHITE BLOOD COUNT 13.6 TH/MM3 (4.0-11.0)
[2017-06-29 04:54] LABS: REVIEW FLAG FINAL
[2017-06-29 05:17] LABS: BICARBONATE 26.7 MEQ/L (21.0-32.0); POTASSIUM 4.2 MEQ/L (3.5-5.1)
[2017-06-29 05:38] LABS: CALCIUM-PROTEIN CORRECTED 8.1 MG/DL (8.5-10.1)
[2017-06-29] MEDS: PANTOPRAZOLE SODIUM 40 MG VIAL IV PUSH SCH ×2 (05:57→17:47)
--- NOTE | 2017-06-29 07:48 | PD.ONC.PN ---
Subjective Subjective Remarks Patient seen and examined, vital signs, labs, medications and senior science consultant notes reviewed. There have been no acute cardiopulmonary events over the past 24 hours. Patient currently is off sedation, spontaneous movements of the head and fingers were noted. He blinked on command it appeared as if he was able to understand verbal commands. Objective Data Date Time Temp Pulse Resp B/P (MAP) Pulse Ox O2 Delivery O2 Flow Rate FiO2 06/29/17 06:00 103 06/29/17 05:59 102 122/59 06/29/17 04:10 99 40 06/29/17 04:00 104 06/29/17 04:00 99.0 104 24 161/67 (98) 99 154/68 (96) 06/29/17 04:00 40 06/29/17 02:26 105 157/72 06/29/17 02:00 103 06/29/17 00:19 97 40 06/29/17 00:00 40 06/29/17 00:00 112 06/29/17 00:00 101.0 112 27 148/75 (99) 99 154/78 (103) 06/28/17 23:55 113 158/80 06/28/17 22:00 114 06/28/17 20:45 111 143/69 06/28/17 20:11 99 40 06/28/17 20:00 40 06/28/17 20:00 110 06/28/17 20:00 99.9 110 27 145/68 (93) 99 141/68 (92) 06/28/17 18:00 109 06/28/17 17:44 95 40 06/28/17 16:00 98.8 106 28 153/63 (93) 99 123/64 (83) 06/28/17 16:00 106 06/28/17 16:00 40 06/28/17 14:00 109 06/28/17 12:20 98.0 112 28 116/72 97 06/28/17 12:00 98.3 116 29 141/72 (95) 96 129/79 (96) 06/28/17 12:00 116 06/28/17 12:00 40 06/28/17 11:55 98.6 116 29 118/76 96 06/28/17 11:31 95 40 06/28/17 10:00 111 06/28/17 08:15 40 06/28/17 08:00 40 06/28/17 08:00 99.3 108 55 136/64 (88) 98 119/89 (99) 06/28/17 08:00 108 06/29/17 06/29/17 06/29/17 07:00 15:00 23:00 Intake Total 1021.5 ml Output Total 990 ml Balance 31.5 ml Result Diagram: 06/29/17 0400 06/29/17 0400 Laboratory Results Laboratory Tests Test 06/28/17 17:28 06/29/17 04:00 Lactic Acid Level 1.3 mmol/L White Blood Count 13.6 TH/MM3 Red Blood Count 3.27 MIL/MM3 Hemoglobin 9.2 GM/DL Hematocrit 28.3 % Mean Corpuscular Volume 86.3 FL Mean Corpuscular Hemoglobin 28.0 PG Mean Corpuscular Hemoglobin Concent 32.4 % Red Cell Distribution Width 16.0 % Platelet Count 51 TH/MM3 Mean Platelet Volume 10.6 FL Blood Urea Nitrogen 38 MG/DL Creatinine 1.00 MG/DL Random Glucose 134 MG/DL Total Protein 5.8 GM/DL Calcium Level 7.4 MG/DL Sodium Level 141 MEQ/L Potassium Level 4.2 MEQ/L Chloride Level 109 MEQ/L Carbon Dioxide Level 26.7 MEQ/L Anion Gap 5 MEQ/L Estimat Glomerular Filtration Rate 74 ML/MIN Protein Corrected Calcium 8.1 MG/DL Administered Medications Medications (Trade) Dose Ordered Sig/[place] Route PRN Reason Start Time Stop Time Status Last Admin Dose Admin Acetaminophen/ Hydrocodone Bitart ([place] 5-325 Mg) 1 tab Q4H PRN PO PAIN SCALE 1 TO 5 06/17/17 22:00 06/17/17 22:02 Acetaminophen/ Hydrocodone Bitart ([place] 5-325 Mg) 2 tab Q4H PRN PO PAIN SCALE 6 TO 10 06/17/17 22:00 06/21/17 20:40 Ondansetron HCl (Zofran Inj) 4 mg Q4H PRN IV PUSH NAUSEA/VOMITING 06/17/17 22:00 06/18/17 09:45 Miscellaneous Information Patient in critical care unit? Ass... [id number] .XX 06/18/17 05:45 06/18/17 05:45 Vasopressin 40 units/Dextrose 100 ml @ 6 mls/hr [id number] IV 06/18/17 15:29 06/19/17 08:09 Metoclopramide HCl (Reglan Inj) 5 mg Q8H IV PUSH 06/18/17 17:00 06/29/17 01:14 Potassium Chloride 100 ml @ 50 mls/hr Q2H PRN IV For Potassium 2.8 - 3.2 mEq/L 06/19/17 07:45 06/21/17 03:31 Potassium Chloride 100 ml @ 50 mls/hr Q2H PRN IV For Potassium 3.3 - 3.5 mEq/L 06/19/17 07:45 06/22/17 17:22 Sodium Phosphate 30 mmol/Sodium Chloride 250 ml @ 42 mls/hr UNSCH PRN IV For Phosphorus < 2.5 mg/dL 06/19/17 07:45 06/20/17 17:06 Fat Emulsion Intravenous 250 ml @ 10 mls/hr Q24H IV-CENTRAL 06/19/17 20:00 06/28/17 20:47 Insulin Aspart (NovoLOG SUPPLEMENTAL SCALE) 1 Q4HR SQ 06/19/17 12:00 06/21/17 20:34 Sodium Chloride 40 meq/Sodium Acetate 59 meq/ Potassium Chloride 40 meq/ Sodium Phosphate 40 meq/Magnesium Chloride 10 meq/ Calcium Chloride 9 meq/ Multivitamins 10 ml/Folic Acid 1 mg/Insulin Human Regular 40 units/ Amino Acids/ Dextrose 2,091.7937 ml @ 50 mls/hr Q24H IV-CENTRAL 06/19/17 20:00 06/28/17 20:48 Vancomycin HCl (VANCOMYCIN for oral use only) 500 mg QID NG 06/19/17 18:00 06/28/17 20:47 Phenylephrine HCl 160 mg/Dextrose 500 ml @ 7.5 mls/hr TITRATE PRN IV Blood pressure management 06/19/17 19:15 06/24/17 00:32 Chlorhexidine Gluconate (Peridex 0.12% Liq) 15 ml BID@08,20 MT 06/20/17 08:00 06/28/17 20:48 Metronidazole 100 ml @ 100 mls/hr Q8H IV 06/20/17 09:00 06/29/17 01:15 Albuterol/ Ipratropium (Duoneb Neb) 1 ampule Q2HR NEB PRN NEB SHORTNESS OF BREATH 06/20/17 09:15 06/27/17 05:56 Acetaminophen (Tylenol 650 Mg/ 20 ml Liq) 650 mg Q6H PRN PO fever>100.5 06/20/17 16:30 06/23/17 03:57 Pantoprazole Sodium (Protonix Inj) 40 mg Q12H IV PUSH 06/21/17 07:00 06/29/17 05:57 Alvimopan (Entereg) 12 mg Q12HR NG 06/22/17 12:00 06/28/17 20:47 Albumin Human 50 ml @ 60 mls/hr Q12H IV 06/22/17 15:00 06/29/17 02:27 Vancomycin HCl 250 mg/Sodium Chloride 102.5 ml @ 0 mls/hr TID IRRIGATION 06/23/17 13:00 06/28/17 17:32 Midazolam HCl 100 ml @ 2 mls/hr TITRATE PRN IV SEDATION 06/23/17 16:15 06/28/17 05:13 Diltiazem HCl 125 mg/Sodium Chloride 125 ml @ 5 mls/hr TITRATE PRN IV Tachycardia 06/24/17 15:00 06/29/17 02:26 Digoxin (Lanoxin Inj) 0.125 mg DAILY IV PUSH 06/25/17 13:30 06/28/17 08:12 Acetaminophen (Tylenol) 650 mg Q4H PRN PO SEE LABEL COMMENTS 06/28/17 08:15 06/28/17 11:42 Diphenhydramine HCl (Benadryl) 25 mg Q4H PRN PO SEE LABEL COMMENTS 06/28/17 08:15 06/28/17 11:42 Objective Remarks GENERAL APPEARANCE: Mr. Armendariz is a middle-aged/elderly male. He is laying in bed. He is non-responsive. He is intubated, ventilated and sedated. HEENT: Head atraumatic, normocephalic. Conjunctivae are pale. Sclerae are anicteric, EOMI, PERRLA, oral exam no pharyngeal erythema. NECK: No palpable cervical or supraclavicular lymphadenopathy. RESPIRATORY: Good air movement bilaterally. No added breath sounds. He has prolonged expiratory phase. He is initiating multiple spontaneous breaths. CARDIOVASCULAR: Irregular, tachycardiac, S1 S2, no obvious murmurs, rubs or gallops. ABDOMEN: The belly is soft. An ileostomy bag is noted containing liquid stools. A well-healing laparotomy incision in the midline is appreciated. The abdomen does not appear to be distended, there appears to be no significant increase in tympany on percussion. There are no signs of acute abdomen. LOWER EXTREMITIES: No pretibial edema, no calf tenderness. Upper extremities: Right upper extremity with edema. MUSCULOSKELETAL: There appears to be muscle atrophy. REGULATORY LEADER: No spontaneous movement of the limbs. Assessment/Plan Assessment Mr. Armendariz is a 67-year-old male who was recently diagnosed with metastatic adenocarcinoma of the rectosigmoid colon and had resection of a metastatic deposit to the liver. He is status post primary surgical resection as well as wedge resection of a metastatic deposit to the liver and now has C difficile colitis. 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 Plan 1: Thrombocytopenia with positive Heparin/PLT factor 4 Joanne antibody was a false positive, serotonin release assay was negative. The patient may be initiated on Lovenox 40 mg subcutaneous daily today. The thrombocytopenia was most likely secondary to sepsis and a consumptive coagulopathy due to his C. difficile associated severe sepsis. Platelet counts are noted to be 51,000 today, this is largely due to the platelet transfusion he received yesterday. 2. Metastatic colon carcinoma: Await recovery before addressing this. 3. Continue monitoring and supportive care. Faraz Ryan MD Jun 29, 2017 07:48
[2017-06-29] MEDS: CHLORHEXIDINE 0.12% (ORAL KIT) 15 ML CUP MT SCH ×2 (08:21→19:47)
[2017-06-29] MEDS: ENOXAPARIN SODIUM 40 MG/0.4 ML SYRINGE SQ SCH (08:21)
[2017-06-29] MEDS: ALVIMOPAN 12 MG CAPSULE NG SCH ×2 (08:22→19:46)
[2017-06-29] MEDS: SODIUM CHLORIDE 0.9% IRRIGATION SCH ×3 (08:22→17:46)
[2017-06-29] MEDS: DIGOXIN 0.5 MG/2 ML VIAL IV PUSH SCH (08:22)
[2017-06-29] MEDS: IRR IRRIGATION SCH ×3 (08:22→17:46)
[2017-06-29] MEDS: VANCOMYCIN IRRIGATION SCH ×3 (08:22→17:46)
--- NOTE | 2017-06-29 08:22 | HHI.PR ---
Subjective Remarks Pt remains on vent. Versed off. Slightly more awake Objective Vital Signs Date Time Temp Pulse Resp B/P (MAP) Pulse Ox O2 Delivery O2 Flow Rate FiO2 06/29/17 08:04 99 40 06/29/17 06:00 103 06/29/17 05:59 102 122/59 06/29/17 04:10 99 40 06/29/17 04:00 104 06/29/17 04:00 99.0 104 24 161/67 (98) 99 154/68 (96) 06/29/17 04:00 40 06/29/17 02:26 105 157/72 06/29/17 02:00 103 06/29/17 00:19 97 40 06/29/17 00:00 40 06/29/17 00:00 112 06/29/17 00:00 101.0 112 27 148/75 (99) 99 154/78 (103) 06/28/17 23:55 113 158/80 06/28/17 22:00 114 06/28/17 20:45 111 143/69 06/28/17 20:11 99 40 06/28/17 20:00 40 06/28/17 20:00 110 06/28/17 20:00 99.9 110 27 145/68 (93) 99 141/68 (92) 06/28/17 18:00 109 06/28/17 17:44 95 40 06/28/17 16:00 98.8 106 28 153/63 (93) 99 123/64 (83) 06/28/17 16:00 106 06/28/17 16:00 40 06/28/17 14:00 109 06/28/17 12:20 98.0 112 28 116/72 97 06/28/17 12:00 98.3 116 29 141/72 (95) 96 129/79 (96) 06/28/17 12:00 116 06/28/17 12:00 40 06/28/17 11:55 98.6 116 29 118/76 96 06/28/17 11:31 95 40 06/28/17 10:00 111 I/O 06/28/17 06/28/17 06/28/17 06/29/17 06/29/17 06/29/17 07:00 15:00 23:00 07:00 15:00 23:00 Intake Total 616 ml 310 ml 2715.5 ml 1021.5 ml Output Total 800 ml 0 ml 1350 ml 990 ml Balance -184 ml 310 ml 1365.5 ml 31.5 ml IV Total 450 ml 2312.5 ml 849.5 ml Tube Feeding 166 ml 203 ml 172 ml Platelets 290 ml Blood Product IV Normal Saline Flush 20 ml Other 200 ml Output Urine Total 500 ml 575 ml 590 ml Stool Total 300 ml 775 ml 400 ml Tube Feeding Residual Discard 0 ml Result Diagram: 06/29/1739906/29/17399 Objective Remarks VS-S Rate controlled Gen: Pt comfortable Abd: Soft. Mild distention. Wound healed. Stoma with clear fluid D/C Ext: Mild edema Labs: Platelets up after transfused. Lactic acid 1.3 I&Os: OK Assessment and Plan Assessment and Plan Stable at present. Seems improved.. Continue oral Vanco and Flagyl. Started Vancomycin 250mg/100cc irrigating TID thru Ileostomy. Tube feeds to eventually wean TPN to improve LFTs and Bili.. Continue to support. Per CCM Will try to speak with today Luca Geiger MD Jun 29, 2017 08:22
[2017-06-29] MEDS: VANCOMYCIN 500 MG VIAL (FOR ORAL USE ONLY) NG SCH ×4 (08:23→19:46)
--- NOTE | 2017-06-29 13:24 | HHI.GIFU ---
Subjective Remarks Pt is on trial of cpap and he is tachypneic. HR is up to 130-150 Otherwise about the same. LFTs are trending down. Ferritin is over 5000. HFE gene test pending. Objective Vitals I&O Vital Signs Date Time Temp Pulse Resp B/P (MAP) Pulse Ox O2 Delivery O2 Flow Rate FiO2 06/29/17 12:07 98 40 06/29/17 10:00 105 06/29/17 09:39 40 06/29/17 09:39 99 40 06/29/17 09:38 40 06/29/17 09:30 40 06/29/17 09:00 104 53 154/71 (98) 98 154/63 (93) 06/29/17 08:04 99 40 06/29/17 08:00 106 06/29/17 08:00 99.6 106 51 127/75 (92) 99 147/65 (92) 06/29/17 08:00 40 06/29/17 07:00 106 48 124/90 (101) 99 154/67 (96) 06/29/17 06:00 103 06/29/17 05:59 102 122/59 06/29/17 04:10 99 40 06/29/17 04:00 104 06/29/17 04:00 99.0 104 24 161/67 (98) 99 154/68 (96) 06/29/17 04:00 40 06/29/17 02:26 105 157/72 06/29/17 02:00 103 06/29/17 00:19 97 40 06/29/17 00:00 40 06/29/17 00:00 112 06/29/17 00:00 101.0 112 27 148/75 (99) 99 154/78 (103) 06/28/17 23:55 113 158/80 06/28/17 22:00 114 06/28/17 20:45 111 143/69 06/28/17 20:11 99 40 06/28/17 20:00 40 06/28/17 20:00 110 06/28/17 20:00 99.9 110 27 145/68 (93) 99 141/68 (92) 06/28/17 18:00 109 06/28/17 17:44 95 40 06/28/17 16:00 98.8 106 28 153/63 (93) 99 123/64 (83) 06/28/17 16:00 106 06/28/17 16:00 40 06/28/17 14:00 109 I/O 06/28/17 06/28/17 06/28/17 06/29/17 06/29/17 06/29/17 07:00 15:00 23:00 07:00 15:00 23:00 Intake Total 616 ml 310 ml 2715.5 ml 1021.5 ml Output Total 800 ml 0 ml 1350 ml 990 ml 0 ml Balance -184 ml 310 ml 1365.5 ml 31.5 ml 0 ml IV Total 450 ml 2312.5 ml 849.5 ml Tube Feeding 166 ml 203 ml 172 ml Platelets 290 ml Blood Product IV Normal Saline Flush 20 ml Other 200 ml Output Urine Total 500 ml 575 ml 590 ml Stool Total 300 ml 775 ml 400 ml Tube Feeding Residual Discard 0 ml 0 ml Laboratory Laboratory Tests Test 06/28/17 17:28 06/29/17 04:00 Lactic Acid Level 1.3 White Blood Count 13.6 Red Blood Count 3.27 Hemoglobin 9.2 Hematocrit 28.3 Mean Corpuscular Volume 86.3 Mean Corpuscular Hemoglobin 28.0 Mean Corpuscular Hemoglobin Concent 32.4 Red Cell Distribution Width 16.0 Platelet Count 51 Mean Platelet Volume 10.6 Blood Urea Nitrogen 38 Creatinine 1.00 Random Glucose 134 Total Protein 5.8 Calcium Level 7.4 Sodium Level 141 Potassium Level 4.2 Chloride Level 109 Carbon Dioxide Level 26.7 Anion Gap 5 Estimat Glomerular Filtration Rate 74 Protein Corrected Calcium 8.1 Date/Time Source Procedure Growth Status 06/20/17 17:11 Blood Peripheral Aerobic Blood Culture - Final NO GROWTH IN 5 DAYS Complete 06/20/17 17:11 Blood Peripheral Anaerobic Blood Culture - Final NO GROWTH IN 5 DAYS Complete 06/20/17 15:50 Urine Catheterized Urine Urine Culture - Final NO GROWTH IN 48 HOURS. Complete Physical Exam HEENT: Normocephalic; atraumatic; no jaundice. CHEST: OETT to vent. Tachypneic. Course breath sounds. CARDIAC: Irregular, HR 130's. Afib on monitor. ABDOMEN: Soft, distended, ileostomy with small liquid in ostomy bag. OGT with trickle feeds EXTREMITIES: BUE edema. SKIN: Normal; no rash; no jaundice. 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 Receiving TPN (started 06/19), started on amiodarone (started 06/19- off 06/24). LFTs were normal on 06/19. The AST went to 42 on 06/22 and 129 on 06/23. These spiked T. Bili 1.3, AST 546, ALT 158, Alk Phosph 197 on 06/24. Of note he had atrial fibrillation with RVR, HR 160's. His amiodarone was changed to Cardizem and his hr is now controlled, but he did have some hypotensive episodes overnight. This morning, his b/p is 106/56. Most likely, his LFT derangement is secondary to medications (suspect possibly combination of tpn and amiodarone), sepsis, possible congestive hepatopathyrelated to Afib with RVR. 06/25 had increase- (T. Bili 1.7, AST 1300, ALT 386, ALK Phosph 239) . Likely related to shocked liver from hypotensive episodes over night. Liver US (06/24/17)---> Small volume ascites. Small right effusion. ASMA negative. Alpha 1 Antitrypsin 221. Hepatitis panel pending., [place], AMA, Ceruloplasmin pending. AFP 3.3, Ferritin 5508. Iron saturation > 100%. He received one unit of blood on 06/18. Hfe gene. Recommend avoiding hepatotoxins, hypotensive episodes, and starting enteral feedings when able to from CRS standpoint. LFTs are improving/trending down. T. Bili 2.0, AST 460, ALT 217, Alk Phosph 268. - Severe sepsis with lactic acidosis with concern for possible bowel ischemia, CDifficile. Pt presented to ER with abdominal pain, n/v, generalized weakness. CT scan abdomen and pelvis with IV contrast (06/17/17)---> Dilatation of the distal small bowel when compared to proximal. Minimal colonic gas is evidence. Zone of transition appears to be in the right lower quadrant. I can see the transition but not etiology for such. BCx no growth 1 day, Urine cx 50-100,000 CFU/mL mixed mark. GI consulted for egd/ileoscopy to evaluate for bowel ischemia. S/P EGD/Colonoscopy (06/19/17)----> 1. There was [place] Class B esophagitis noted 2. There was erythematous gastritis in the gastric body and gastric antrum; 2. 400cc of fluid suctioned from the stomach. ? gastric volvulus 3. Retroflexed views revealed no abnormalities Abnormal small bowel mucosa to 15cm. Pseudomembranous illeitis. ? ischemia. Pathology duodenal mucosa without significant histologic abnormality. moderate chronic gastritis and associated reactive epithelial changes. Negaive for helicobacter pylori, acute enteritis with features of ulceration. CDiff PCR (+) Epid 027 (-). ID following. CT scan abdomen and pelvis without contrast (06/20/17)---> dilated stomach and multiple dilated loops of small bowel, likely ileus. No definite gastric volvulus. Fat containing right ingional hernia which also contains small portion of the urinary bladder and minimal fluid. Left sided nephroureteral stent in good position. bibasilar consolidation and small pleural effusions. S/P Colonoscopy and ileoscopy (06/22/17)----> normal colonoscopy with ileal pseudomembranous colitis. ID is following. Flagyl, Oral Vanco, Vanco enemas via ileostomy. - CDiff. Vanco enemas via ileostomy/Oral vanco/Flagyl. ID following - PSBO/?Gastric volvulus. ? Volvulus on egd. Upper gi series ordered, d/c'd by CRS. CT scan abdomen and pelvis without contrast (06/20/17)---> dilated stomach and multiple dilated loops of small bowel, likely ileus. No definite gastric volvulus. Fat containing right ingional hernia which also contains small portion of the urinary bladder and minimal fluid. Left sided nephroureteral stent in good position. bibasilar consolidation and small pleural effusions. KUB (06/20/17)--> Nasogastric tube distal tip is in the gastric cardia region likely just beyond the GE junction. However, sentinel hole is in the distal esophagus, suggest advancement. Abnormally dilated small bowel obstruction. NGT to LIWS. TPN - Respiratory failure, small pleural effusion. Vent per CCM - NEIL. Creat. 0.93 - Anemia. S/P 1 unit prbc. 9.8/29.6 - Atrial fibrillation with RVR. Was started on amiodarone, but this is being changed to cardizem because his heart rate remained in 160 and he has elevated LFTs. - Thrombocytopenia. HIT (+), SMILEY pending. Plt 18,000. On argatroban. - Metastatic colon cancer. S/P lower anterior resection/coloanal anastomosis, resection and reanastomosis of the left ureter with ureteral anastomosis and double-J stent placement, wedge resection of hepatic metastasis, mobilization of the splenic flexure, and diverting closed loop ileostomy with Dr. Geiger and Dr. Pelayo on 05/26/17. Dr. Noel is his oncologist, but he has not seen him since his surgery PLAN: - Trickle feeds started, will defer to CRS - Cont. TPN for now - Cont. PPI - Await hepatitis profile, [place], ama, ceruloplasmin, Hfe gene - Abx per ID recommendations, Vanco enemas, Oral Vanco, Flagyl - Monitor labs - Supportive care - Avoid hepatotoxins - Avoid hypotensive episodes - Further recommendations to follow based on results of above - Consider repeat CT abdomen and pelvis. Ronnie Chang MD Jun 29, 2017 13:24
--- NOTE | 2017-06-29 14:25 | HHI.CCPN ---
Subjective Remarks/Hospital Course The patient is a 67-year-old male with past medical history of hypertension, metastatic colon cancer, tobacco abuse, who, about 3 weeks ago underwent low anterior resection with low colorectal anastomosis, diverting ileostomy, and resection of a segment of the left ureter with ureteral anastomosis and double- J stent placement. He presented yesterday with 5 day history of abdominal discomfort and increasing weakness. No history of high output from ileostomy. He was admitted to the colorectal surgery for dehydration and probable UTI. He was placed on ciprofloxacin and IV hydration. According to Dr. Geiger's note it was difficult dissection/resection colon mass because of the pelvic sidewall adherence and the adherence to the left ureter. A portion of ureter was resected due to possibility of tumor infiltration, and Dr. Augustine Pelayo re- anastomosed the ureter and placed left-sided double-J stent. Also 1 cm hepatic metastasis in his liver that was excised. Hospitalist consultation was requested for medical management and evaluation of tachycardia today. He was seen by Dr. Jay and was placed on infusion of Cardizem for heart rate 140s. Patient became hypotensive with systolic blood pressure early 90s. Lab work showed WBC 14.5 with 44% bands, creat increase from 1.2 to 1.4 and severely increased lactate at 8 from admission lactate of 2.6. CT of the abdomen pelvis done yesterday showed probable small bowel ileus. I evaluated the patient in the ICU. He is tachycardic in 140s, hypotensive and systolic blood pressure in mid 80s. Clinically appears very dehydrated, an NG tube was placed with approximately 3 L of some coffee-ground output. ABG shows a base excess of -10 and bicarbonate 12. I have ordered 4 liter normal saline boluses start 1 amp of bicarbonate, discontinued the LR infusion, and started bicarb gtt. Discontinue ciprofloxacin, started Zosyn every 6 hours, vancomycin 1 g 1. His elevated lactic acid and bandemia most likely secondary to severe sepsis, ileus, and severe dehydration. Serial lactate is ordered SUBJ 06/19: Lactic acid remains elevated at 6.6 despite getting 9 L of crystalloid boluses in last 24 hours. Tachycardia has improved heart rate in 110s. Remains on vasopressin at 0.04 units/min. Urine output almost 1200 mL overnight, OGT initial output was almost 3 L when placed yesterday a.m. Overnight had 550 mL of greenish brown fluid output. EGD pending today rule out gastric ischemia per Dr. Romero. Apparently Flex sig was negative post op in Dr. Geiger's office 06/20: Developed A. fib with RVR. Heart rate 200. Hemodynamically unstable, synchronized cardioversion attempted by Dr. Morales 100 200 J. Given 3 g mag sulfate and 80 mEq KCl 1, 0.5 digoxin 1 and started on amiodarone and Giorgio- Synephrine. Intubated due to hemodynamic instability. Currently remains sedated. Currently on Giorgio-Synephrine 80 mcg/m, and amiodarone. CT chest abdomen pelvis again confirms gastric and small bowel distention/ileus. UO 1800 ml in 24 hours 06/21: Remains critically ill, intubated sedated, on 100 mcg/min neosynpehrine. HR better controlled. NG output 1500, UO >1.4L. Am labs pending. Ileostomy sample positive for C Diff on PO vanc IV Flagyl. 06/22: Remains intubated sedated. Urine output 3000 mL with Bumex. NGT [address] Geiger did colonoscopy which was normal. Ileoscopy showed pseudomembranous colitis. Currently on 200 mcg/min of neosynephrine. Afib with RVR HR in 140's 06/23: Remains intubated sedated, remains in atrial fibrillation with RVR. Still requiring high doses of Giorgio-Synephrine at 190 mcg/min. UO 2.5L. chest x- ray showed bilateral large effusions. KUB shows improving small bowel distention. WBC count is slightly improved 06/24: Unable to control HR. Repeat shock x3 today. remains in atrial fibrillation with RVR rates 160-170 intermittently. Remains on amiodarone but will discontinued due to elevation of liver enzymes AST 546 ALT 158. (GI notified). Start Cardizem infusion and also give Surjit 0.5 mg 1. Platelet count continues to drop from 67 to today 45. Hematology following will start of Argatroban today. Creatinine has slightly increased to 1.3 to will DC Bumex infusion 06/25: Patient remains intubated sedated critically ill. Heart rate controlled for the first time since atrial fibrillation started. Heart rate remains 80- 90. Urine output 1200 mL in 24 hours but BUN/creatinine increasing 44/1.7. I will hydrate with 50 mL/hr normal saline for 24 hours. Transaminitis increasing AST 1300 ALT 386. Ultrasound of the liver unremarkable GI following 06/26: PTT elevated due to Argatorban/Liver failure. Dr. Hurley has DCd argatroban. SMILEY pending. Pl count is 21. Currently in sinus rhythm on Cardizem infusion. Not on any pressors. Creatinine improved to 1.2. Urine output adequate. Becomes very tachypneic on attempted CPAP. Discussed with Dr. Geiger Will Start Trickle Tube Feeds 06/27: no improvements. off pathway. thrombocytopenia persists. unable to wean from mechanical ventilation. neuro exam poor. will likely need trach. 06/28: platelets worse today. SMILEY not resulted yet. failing SBT and mental status poor. poor prognosis. will need trach and LTAC placement. Subjective 06/29: Tmax 101. Currently 99.6. Tolerating trickle tube feeds. Continues to fail spontaneous breathing trials. Objective Vital Signs Date Time Temp Pulse Resp B/P (MAP) Pulse Ox O2 Delivery O2 Flow Rate FiO2 06/29/17 12:07 98 40 06/29/17 10:00 105 06/29/17 09:00 53 154/71 (98) 154/63 (93) 06/29/17 08:00 99.6 Intake and Output 06/29/17 06/29/17 06/30/17 08:00 16:00 00:00 Intake Total 1021.5 ml Output Total 990.0 ml Balance 31.5 ml Result Diagram: 06/29/17 0400 06/29/17 0400 Other Results Microbiology Date/Time Source Procedure Growth Status 06/20/17 17:11 Blood Peripheral Aerobic Blood Culture - Final NO GROWTH IN 5 DAYS Complete 06/20/17 17:11 Blood Peripheral Anaerobic Blood Culture - Final NO GROWTH IN 5 DAYS Complete 06/20/17 15:50 Urine Catheterized Urine Urine Culture - Final NO GROWTH IN 48 HOURS. Complete Imaging Last Impressions Chest X-Ray 06/27/17599 Signed Impressions: Service Date/Time: Tuesday, June 27, 2017 04:23 - CONCLUSION: 1. Stable chest. 2. Bilateral patchy opacities and probable small pleural effusions. Sarwat Suarez MD Abdomen X-Ray 06/27/17599 Signed Impressions: Service Date/Time: Tuesday, June 27, 2017 04:29 - CONCLUSION: Stable abdomen. Sarwat Suarez MD Liver Ultrasound 06/24/17 Signed Impressions: Service Date/Time: Saturday, June 24, 2017 16:38 - CONCLUSION: 1. Small volume ascites. 2. Small right effusion. Pierce Ospina Jr., MD Upper Extremity Ultrasound 06/23/17 Signed Impressions: Service Date/Time: June 20:03 - CONCLUSION: Noncompressibility right cephalic vein and left basilic vein consistent with venous thrombosis Trav Hiseh MD Lower Extremity Ultrasound 06/23/17 Signed Impressions: Service Date/Time: June 20:16 - CONCLUSION: Normal examination. No evidence DVT Trav Hsieh MD Chest CT 06/20/17 Signed Impressions: Service Date/Time: Tuesday, June 20, 2017 07:42 - CONCLUSION: 1. Bilateral effusions and consolidative changes in both lung bases. Bao Lora MD Abdomen/Pelvis CT 06/20/17 Signed Impressions: Service Date/Time: Tuesday, June 20, 2017 07:39 - CONCLUSION: 1. Dilated stomach and multiple dilated loops of small bowel, likely ileus. 2. No definite gastric volvulus. 3. Fat containing right inguinal hernia which also contains small portion of the urinary bladder and minimal fluid. 4. Left-sided nephroureteral stent in good position. 5. Bibasilar consolidation and small pleural effusions. Sarwat Suarez MD Objective Remarks GENERAL: 67-year-old male intubated sedated critically ill. SKIN: Warm and dry. HEENT: Extraocular muscles intact. NECK: The neck is supple. LIJ central line in place CHEST:Few coarse rhonchi Equal bilaterally. Becomes tachypneic on CPAP CVS: Tachycardia, IR. S1, S2 no S4. ABDOMEN: Abdomen is slightly distended, soft. Incision appears healing well. Ileostomy is functioning well. NGT in place EXTREMITIES: No pedal edema or cyanosis NEURO: Intubated heavily sedated. Moves all extremities, not following commands Urinary Catheter: Yes Assessment to: Continue Han insert reason: Prolonged Immobilization Vascular Central Line Catheter: Yes Assessment to: Continue Date of Insertion: Jun 18, 2017 Side: Left Location: Internal A/P Assessment and Plan PLAN: NEURO: - Midazolam early 2 mg an hour for sedation and vent synchrony - Attempt daily sedation vacation, poor neuro exam. RESP: Acute hypoxemic respiratory failure - persistent. - ACV PEEP 5. FiO2 40%. -Albuterol/ipratropium every 6 hours with albuterol aerosols every 2 hours. Dyspnea -Ventilator bundle - Attempt daily SBT, continues to fail due to severe tachypnea on pressure support is lasted 1.5 hours today. - Bilateral small pleural effusion on chest x-ray CV: Atrial fibrillation with RVR - persistent. - Cardioverted several times without success and amiodarone started for A. fib with RVR - Amio DCd 06/24 due to Liver enzyme elevation.remains on Cardizem infusion and Digoxin. still back in afib with variable rate. very resistant afib and difficult to control. - IV Heparin discontinued due to Hit screen positive hematology consulted. Argatroban DCd 06/[address] Hurley SMILEY negative. - s/p Normal saline IV fluids 8L boluses on 06/18/17, No IVF now except TPN -Bumetanide DCd 06/24 due to increasing creatinine. NS 50 ml per hour for 24 hours 06/25-06/26. Creatinine improved to 1.2 - 2D Echo normal LV function GI: s/p Left colectomy with colorectal anastomosis, diverting ileostomy, wedge resection of liver metastasis C Diff enteritis/ileitis Transaminitis -Trickle feeds, TPN at 50 cc an hour with lipids daily. - Pantoprazole 40 mg IV twice a day - Transaminitis most likely secondary to amiodarone and TPN and hypotension, interval worsening AST 1300, ALT 386, today improved to 686/276 recheck in a.m. - Gastroenterology Dr. Saldana. EGD 06/19. Evidence of esophagitis, and erythematous gastritis in the gastric body and gastric antrum - C Diff positive from ileostomy sample indicating C Diff enteritis. On PO vanc and IV Flagyl - Dr. Tran 06/22. Colonoscopy normal. Ileoscopy severe pseudomembranous ileitis - IV metoclopramide [address] abdomen pelvis and KUB shows small bowel ileus., KUB 06/23 improving ileus - Continue Alvimopan 12 mg every 12 hours for ileus : s/p Partial resection of the left ureter with anastomosis and placement of double-J stent - Monitor renal function closely. Han catheter. UO adequate ID: - ID Dr. Espinoza - PO Vancomycin and IV metronidazole for C diff enteritis - F/u blood and urine culture -negative to date HEME: Thrombocytopenia, hit screen positive SMILEY negative Normocytic anemia - Monitor CBC, CMP - HIT screen positive- consulted hematology - Argatroban started 06/24/17, DCd 06/26/[address] Hurley - According to Dr. Hurley elevated PTT secondary to decreased liver clearance of argatroban - Once PTT normal, use Arixtra. ENDO: - Electrolyte replacement per protocol -Sliding-scale insulin to maintain euglycemia PROPH: -Bilateral lower extremity SCDs. No anticoagulation until PT/PTT checked 06/27 , IV pantoprazole 40 q12 LINES: - Left IJ central line, radial art line Critically ill stable. Multi organ involvement makes diagnosis still guarded. Needs placement and long-term vent wean. Level II follow-up Discussion with . Brought up possibility tracheostomy. She stated "why wasn't this brought up before". Very angry. She asked me about the history about why the patient was intubated. I was the physician who intubated the patient on 06/20 for altered mental status and hemodynamic instability at 5 AM. She believed the patient was intubated electively for A. fib. She will ask questions regarding tracheostomy. I stated patient's platelets are too low for this procedure at this time. I usually bring up tracheostomy discussion with family by day 7 it this is a possibility. Leroy Musa MD Jun 29, 2017 14:25
--- NOTE | 2017-06-29 15:02 | HHI.IDPN ---
Note Infectious Disease Note Patient on vent. 40% On the vent. Sedated but looks more awake. No meaningful response. Afebrile. had one temp elevation early am. Admitted to the hospital with weakness, abdominal pain and nausea. The patient is status post anterior resection of colon and rectal areas and anastomosis along with a diverting ileostomy and also resection of a segment of left ureter with ureteral anastomosis and double-J stent placement three weeks prior. PAST MEDICAL HISTORY: 1. Hypertension. 2. Left knee surgery. 3. Metastatic colon cancer status post resection and coloanal anastomosis and also resection and re-anastomosis of the left ureter with double-J stent placement. ALLERGIES: 1. CODEINE. MEDICATIONS: 1. Metronidazole. 2. PO Vancomycin. 3. Vanco irrigation. SOCIAL HISTORY: . Positive tobacco use. No alcohol. No illicit drug use. OBJECTIVE: Vital Signs Date Time Temp Pulse Resp B/P (MAP) Pulse Ox O2 Delivery O2 Flow Rate FiO2 06/29/17 12:07 98 40 06/29/17 10:00 105 06/29/17 09:39 40 06/29/17 09:39 99 40 06/29/17 09:38 40 06/29/17 09:30 40 06/29/17 09:00 104 53 154/71 (98) 98 154/63 (93) 06/29/17 08:04 99 40 06/29/17 08:00 106 06/29/17 08:00 99.6 106 51 127/75 (92) 99 147/65 (92) 06/29/17 08:00 40 06/29/17 07:00 106 48 124/90 (101) 99 154/67 (96) 06/29/17 06:00 103 06/29/17 05:59 102 122/59 06/29/17 04:10 99 40 06/29/17 04:00 104 06/29/17 04:00 99.0 104 24 161/67 (98) 99 154/68 (96) 06/29/17 04:00 40 06/29/17 02:26 105 157/72 06/29/17 02:00 103 06/29/17 00:19 97 40 06/29/17 00:00 40 06/29/17 00:00 112 06/29/17 00:00 101.0 112 27 148/75 (99) 99 154/78 (103) 06/28/17 23:55 113 158/80 06/28/17 22:00 114 06/28/17 20:45 111 143/69 06/28/17 20:11 99 40 06/28/17 20:00 40 06/28/17 20:00 110 06/28/17 20:00 99.9 110 27 145/68 (93) 99 141/68 (92) 06/28/17 18:00 109 06/28/17 17:44 95 40 06/28/17 16:00 98.8 106 28 153/63 (93) 99 123/64 (83) 06/28/17 16:00 106 06/28/17 16:00 40 Laboratory Tests Test 06/28/17 06:52 06/29/17 04:00 White Blood Count 14.0 TH/MM3 13.6 TH/MM3 Red Blood Count 3.72 MIL/MM3 3.27 MIL/MM3 Hemoglobin 10.4 GM/DL 9.2 GM/DL Hematocrit 31.4 % 28.3 % Mean Corpuscular Volume 84.3 FL 86.3 FL Mean Corpuscular Hemoglobin 27.9 PG 28.0 PG Mean Corpuscular Hemoglobin Concent 33.1 % 32.4 % Red Cell Distribution Width 16.0 % 16.0 % Platelet Count 15 TH/MM3 51 TH/MM3 Mean Platelet Volume 10.2 FL 10.6 FL Laboratory Tests Test 06/28/17 06:52 06/28/17 17:28 06/29/17 04:00 Blood Urea Nitrogen 39 MG/DL 38 MG/DL Creatinine 0.92 MG/DL 1.00 MG/DL Random Glucose 144 MG/DL 134 MG/DL Total Protein 5.4 GM/DL 5.8 GM/DL Albumin 2.0 GM/DL Calcium Level 7.6 MG/DL 7.4 MG/DL Alkaline Phosphatase 392 U/L Aspartate Amino Transf (AST/SGOT) 333 U/L Alanine Aminotransferase (ALT/SGPT) 189 U/L Total Bilirubin 2.3 MG/DL Sodium Level 140 MEQ/L 141 MEQ/L Potassium Level 4.1 MEQ/L 4.2 MEQ/L Chloride Level 108 MEQ/L 109 MEQ/L Carbon Dioxide Level 23.8 MEQ/L 26.7 MEQ/L Anion Gap 8 MEQ/L 5 MEQ/L Estimat Glomerular Filtration Rate 82 ML/MIN 74 ML/MIN Lactic Acid Level 1.3 mmol/L Protein Corrected Calcium 8.1 MG/DL IMAGING: Chest X-Ray 06/27/17599 Signed Impressions: Service Date/Time: Tuesday, June 27, 2017 04:23 - CONCLUSION: 1. Stable chest. 2. Bilateral patchy opacities and probable small pleural effusions. Sarwat Suarez MD Abdomen X-Ray 06/27/17599 Signed Impressions: Service Date/Time: Tuesday, June 27, 2017 04:29 - CONCLUSION: Stable abdomen. Sarwat Suarez MD Liver Ultrasound 06/24/17 Signed Impressions: Service Date/Time: Saturday, June 24, 2017 16:38 - CONCLUSION: 1. Small volume ascites. 2. Small right effusion. Pierce Ospina Jr., MD Upper Extremity Ultrasound 06/23/17 Signed Impressions: Service Date/Time: June 20:03 - CONCLUSION: Noncompressibility right cephalic vein and left basilic vein consistent with venous thrombosis Trav Hsieh MD Lower Extremity Ultrasound 06/23/17 Signed Impressions: Service Date/Time: June 20:16 - CONCLUSION: Normal examination. No evidence DVT Trav Hsieh MD Chest CT 06/20/17 Signed Impressions: Service Date/Time: Tuesday, June 20, 2017 07:42 - CONCLUSION: 1. Bilateral effusions and consolidative changes in both lung bases. Bao Lora MD Abdomen/Pelvis CT 06/20/17 Signed Impressions: Service Date/Time: Tuesday, June 20, 2017 07:39 - CONCLUSION: 1. Dilated stomach and multiple dilated loops of small bowel, likely ileus. 2. No definite gastric volvulus. 3. Fat containing right inguinal hernia which also contains small portion of the urinary bladder and minimal fluid. 4. Left-sided nephroureteral stent in good position. 5. Bibasilar consolidation and small pleural effusions. Sarwat Suarez MD PHYSICAL EXAMINATION: GENERAL: No acute distress. On the vent. HEAD, EYES, EARS, NOSE, THROAT: No icterus. Oropharynx with dry mucosa. NECK: The neck is supple. LUNGS: Decreased breath sounds. HEART: Regular S1-S2 without murmurs, rubs or gallops. ABDOMEN: Positive bowel sounds. Soft. Not tender. EXTREMITIES: No clubbing or cyanosis or edema. SKIN: No rash. NEUROLOGIC: Nonfocal. IMPRESSION: 1. Bandemia in a patient with lactic acidosis. The patient is status post recent surgery for rectal cancer and recent ureteral resection and double J ureteral stent. Severe sepsis based on parameters including hypotension. 2. C difficile colitis. Pseudomembranous enteritis/sepsis. 3. Acute respiratory failure. 4. Abnormal CXR - probable atelectasis. 5. Leukocytosis. 6. Elevated LFT's. Improving. RECOMMENDATIONS: 1. Continue Flagyl IV. 2. Continue PO Vancomycin. 3. Monitor temp and clinical status. El Espinoza MD Jun 29, 2017 15:02
--- NOTE | 2017-06-29 15:21 | PD.WCN.NOT ---
Wound Consult Description: Received consult for wound management of coccyx from Doctor Musa Communicated with: MARII Casey [facility] and Doctor Musa Recommendation: 1.Please cleanse sacral, buttock and coccyx areas with soap and water gently and pat dry. Apply thick layer of Calazime barrier cream BID and leave open to air. 2. Turn and reposition patient every 2 hours and PRN for comfort and to offload pressure from sacral area. 3. Please obtain [place] airapy bed or if not available obtain k-4 bed from [facility]. Additional Information: Patient seen on 5th floor [facility] for wound management of coccyx. Patient assessed with the assistance of Kerry GILMORE and travel writer. Patient was then turned to R side with maximum assistance to reveal unstageable pressure injury. Wound measures 6.2cm x 8cm x eschar. Wound bed presents with ~20% red non granulation tissue and ~80% brown/ black eschar. Periwound presents with denuded, erythematous skin that is moist and blanchable. Wound is not actively draining and has no foul odor at this time.Kerry GILMORE applied thick layer of barrier cream. Patient positioned off sacrum with pillow for support toward the R side. Head of bed elevated to 30 degrees before resuming tube feeding.Due to periwound condition, will leave wound open to air and continue the Calazime barrier cream BID. In patient wound care will follow until discharged Yasmine Aragon Jun 29, 2017 15:21
[2017-06-29] MEDS: MIDAZOLAM 100 MG/100 ML INJ 100 ML IV PRN (16:28)
[2017-06-29] MEDS: [UNRECOGNIZED DRUG - OTHER] IV-CENTRAL SCH ×10 (19:47)
[2017-06-29] MEDS: SODIUM ACETATE IV-CENTRAL SCH ×10 (19:47)
[2017-06-29] MEDS: FAT EMULSION 20% INJ 250 ML (@10 mls/hr) IV-CENTRAL SCH (19:47)
[2017-06-29] MEDS: SODIUM CHLORIDE IV-CENTRAL SCH ×10 (19:47)
[2017-06-29] MEDS: RESP: ALBUTEROL 2.5 MG/IPRATROPIUM 0.5 MG NEB (SCH) NEB (20:58)
[2017-06-30] VITALS (24 sets, daily range): BP systolic 90–147; BP diastolic 40–80; PULSE 90–128; RESP 15–33; TEMP 98.5–99.3; O2SAT 97–100
[2017-06-30] MEDS: metroNIDAZOLE 500 MG INJ 100 ML IV SCH ×4 (00:24→23:28)
[2017-06-30] MEDS: METOCLOPRAMIDE HCL 10 MG/2 ML VIAL IV PUSH SCH ×4 (00:25→23:28)
[2017-06-30] MEDS: RESP: ALBUTEROL 2.5 MG/IPRATROPIUM 0.5 MG NEB (SCH) NEB ×4 (03:19→20:17)
[2017-06-30] MEDS: INSULIN ASPART SUPPLEMENTAL SCALE SQ SCH ×7 (04:00→23:28)
--- NOTE | 2017-06-30 04:01 | RADRPT ---
EXAM DATE/TIME: 06/30/2017 03:02 [place] COMPARISON: CHEST SINGLE AP, June 27, 2017, 4:23. INDICATIONS : Shortness of breath, possible pulmonary disease. MEDICAL HISTORY : Hypertension. Hypercholesterolemia. SURGICAL HISTORY : Appendectomy. ENCOUNTER: Subsequent ACUITY: 2 weeks PAIN SCORE: Non-responsive. LOCATION: Bilateral chest FINDINGS: A single view of the chest demonstrates improving bibasilar densities. Endotracheal tube, nasogastric tube and left jugular central line in stable position.. The cardiomediastinal contours are unremark able. Osseous structures are intact. CONCLUSION: 1. Improving bibasilar densities. Sarwat Suarez MD on June 30, 2017 at 3:58 Board Certified Radiologist. This report was verified electronically.
[2017-06-30 04:33] LABS: HEMATOCRIT 25.8 % (39.0-51.0); MEAN CELL VOLUME 87.7 FL (80.0-100.0); MEAN CORPUSCULAR HEMOGLOBIN 28.8 PG (27.0-34.0); MEAN CORPUSCULAR HGB CONC 32.8 % (32.0-36.0); PLATELET COUNT 37 TH/MM3 (150-450); RED BLOOD COUNT 2.94 MIL/MM3 (4.50-5.90); RED CELL DISTRIBUTION WIDTH 16.6 % (11.6-17.2); WHITE BLOOD COUNT 12.9 TH/MM3 (4.0-11.0)
[2017-06-30 04:35] LABS: REVIEW FLAG FINAL
[2017-06-30 04:39] LABS: APTT (PATIENT) 35.6 SEC (24.3-30.1); PROTHROMBIN TIME - PATIENT 11.3 SEC (9.8-11.6)
[2017-06-30 04:49] LABS: BICARBONATE 27.6 MEQ/L (21.0-32.0); MAGNESIUM 2.4 MG/DL (1.5-2.5); POTASSIUM 3.7 MEQ/L (3.5-5.1)
[2017-06-30] MEDS: DILTIAZEM INJ 125 MG in SODIUM CHLORIDE 0.9% INJ 100 ML IV PRN (06:15)
[2017-06-30] MEDS: PANTOPRAZOLE SODIUM 40 MG VIAL IV PUSH SCH ×2 (06:25→21:10)
[2017-06-30] MEDS ORDERED: POTASSIUM PHOSPHATE INJ 30 MMOL in SODIUM CHLOR 0.9% 250 ML INJ 250 ML IV ONE (07:30)
--- NOTE | 2017-06-30 08:07 | PD.ONC.PN ---
Subjective Subjective Remarks Patient seen and examined, bile signs, labs, medications, microbiology and overnight events reviewed. The patient is more awake and alert today, per nursing staff his sedation has been decreased and he is being prepared to begin a CPAP trial this morning. Today the patient opens his eyes, responds and follows commands. He indicates understanding when spoken to. There has been no overt bleeding over the past several days however his hemoglobin has dropped down from 12.5 g/dL last week to 8.5 g/dL today. Objective Data Date Time Temp Pulse Resp B/P (MAP) Pulse Ox O2 Delivery O2 Flow Rate FiO2 06/30/17 06:15 95 105/44 06/30/17 06:00 97 06/30/17 04:00 99.3 96 33 122/53 (76) 99 94/40 (58) 06/30/17 04:00 120 06/30/17 04:00 40 06/30/17 03:20 99 40 06/30/17 02:00 102 06/30/17 00:44 100 40 06/30/17 00:00 40 06/30/17 00:00 128 06/30/17 00:00 98.5 115 25 139/62 (87) 99 110/47 (68) 06/29/17 22:00 106 06/29/17 20:58 100 40 06/29/17 20:00 94 06/29/17 20:00 40 06/29/17 20:00 98.6 94 22 109/66 (80) 100 123/54 (77) 06/29/17 18:00 103 20 118/56 (76) 100 129/56 (80) 06/29/17 18:00 103 06/29/17 17:00 98 24 112/57 (75) 100 109/50 (69) 06/29/17 16:28 111 116/54 06/29/17 16:00 107 06/29/17 16:00 40 06/29/17 16:00 100.3 107 26 117/67 (84) 100 126/57 (80) 06/29/17 15:18 100 40 06/29/17 15:00 110 28 115/56 (75) 99 113/53 (73) 06/29/17 14:00 109 06/29/17 14:00 109 26 112/59 (76) 99 115/59 (77) 06/29/17 13:00 124 41 151/65 (93) 98 147/69 (95) 06/29/17 12:07 98 40 06/29/17 12:00 40 06/29/17 12:00 145 06/29/17 12:00 99.7 145 54 97/54 (68) 96 142/71 (94) 06/29/17 11:00 134 48 161/69 (99) 98 142/69 (93) 06/29/17 10:00 105 53 144/67 (92) 99 139/60 (86) 06/29/17 10:00 105 06/29/17 09:39 40 06/29/17 09:39 99 40 06/29/17 09:38 40 06/29/17 09:30 40 06/29/17 09:00 104 53 154/71 (98) 98 154/63 (93) 06/29/17 08:04 99 40 06/30/17 06/30/17 06/30/17 07:00 15:00 23:00 Intake Total 116 ml Output Total 875 ml Balance -759 ml Result Diagram: 06/30/17 0400 06/30/17 0400 Laboratory Results Laboratory Tests Test 06/30/17 04:00 White Blood Count 12.9 TH/MM3 Red Blood Count 2.94 MIL/MM3 Hemoglobin 8.5 GM/DL Hematocrit 25.8 % Mean Corpuscular Volume 87.7 FL Mean Corpuscular Hemoglobin 28.8 PG Mean Corpuscular Hemoglobin Concent 32.8 % Red Cell Distribution Width 16.6 % Platelet Count 37 TH/MM3 Mean Platelet Volume 10.9 FL Prothrombin Time 11.3 SEC Prothromb Time International Ratio 1.0 RATIO Activated Partial Thromboplast Time 35.6 SEC Blood Urea Nitrogen 34 MG/DL Creatinine 0.90 MG/DL Random Glucose 174 MG/DL Calcium Level 7.7 MG/DL Phosphorus Level 1.7 MG/DL Magnesium Level 2.4 MG/DL Sodium Level 143 MEQ/L Potassium Level 3.7 MEQ/L Chloride Level 109 MEQ/L Carbon Dioxide Level 27.6 MEQ/L Anion Gap 6 MEQ/L Estimat Glomerular Filtration Rate 84 ML/MIN Imaging Studies Last 24 hours Impressions Chest X-Ray 06/30/17 0600 Signed Impressions: Service Date/Time: June 03:02 - CONCLUSION: 1. Improving bibasilar densities. Sarwat Suarez MD Administered Medications Medications (Trade) Dose Ordered Sig/[place] Route PRN Reason Start Time Stop Time Status Last Admin Dose Admin Acetaminophen/ Hydrocodone Bitart ([place] 5-325 Mg) 1 tab Q4H PRN PO PAIN SCALE 1 TO 5 06/17/17 22:00 06/17/17 22:02 Acetaminophen/ Hydrocodone Bitart ([place] 5-325 Mg) 2 tab Q4H PRN PO PAIN SCALE 6 TO 10 06/17/17 22:00 06/21/17 20:40 Ondansetron HCl (Zofran Inj) 4 mg Q4H PRN IV PUSH NAUSEA/VOMITING 06/17/17 22:00 06/18/17 09:45 Miscellaneous Information Patient in critical care unit? Ass... [id number] .XX 06/18/17 05:45 06/18/17 05:45 Metoclopramide HCl (Reglan Inj) 5 mg Q8H IV PUSH 06/18/17 17:00 06/30/17 00:25 Potassium Chloride 100 ml @ 50 mls/hr Q2H PRN IV For Potassium 2.8 - 3.2 mEq/L 06/19/17 07:45 06/21/17 03:31 Potassium Chloride 100 ml @ 50 mls/hr Q2H PRN IV For Potassium 3.3 - 3.5 mEq/L 06/19/17 07:45 06/22/17 17:22 Sodium Phosphate 30 mmol/Sodium Chloride 250 ml @ 42 mls/hr UNSCH PRN IV For Phosphorus < 2.5 mg/dL 06/19/17 07:45 06/20/17 17:06 Fat Emulsion Intravenous 250 ml @ 10 mls/hr Q24H IV-CENTRAL 06/19/17 20:00 06/29/17 19:47 Insulin Aspart (NovoLOG SUPPLEMENTAL SCALE) 1 Q4HR SQ 06/19/17 12:00 06/21/17 20:34 Sodium Chloride 40 meq/Sodium Acetate 59 meq/ Potassium Chloride 40 meq/ Sodium Phosphate 40 meq/Magnesium Chloride 10 meq/ Calcium Chloride 9 meq/ Multivitamins 10 ml/Folic Acid 1 mg/Insulin Human Regular 40 units/ Amino Acids/ Dextrose 2,091.7937 ml @ 50 mls/hr Q24H IV-CENTRAL 06/19/17 20:00 06/29/17 19:47 Vancomycin HCl (VANCOMYCIN for oral use only) 500 mg QID NG 06/19/17 18:00 06/29/17 19:46 Chlorhexidine Gluconate (Peridex 0.12% Liq) 15 ml BID@08,20 MT 06/20/17 08:00 06/29/17 19:47 Metronidazole 100 ml @ 100 mls/hr Q8H IV 06/20/17 09:00 06/30/17 00:24 Acetaminophen (Tylenol 650 Mg/ 20 ml Liq) 650 mg Q6H PRN PO fever>100.5 06/20/17 16:30 06/23/17 03:57 Pantoprazole Sodium (Protonix Inj) 40 mg Q12H IV PUSH 06/21/17 07:00 06/30/17 06:25 Alvimopan (Entereg) 12 mg Q12HR NG 06/22/17 12:00 06/29/17 19:46 Vancomycin HCl 250 mg/Sodium Chloride 102.5 ml @ 0 mls/hr TID IRRIGATION 06/23/17 13:00 06/29/17 17:46 Midazolam HCl 100 ml @ 2 mls/hr TITRATE PRN IV SEDATION 06/23/17 16:15 06/29/17 16:28 Diltiazem HCl 125 mg/Sodium Chloride 125 ml @ 5 mls/hr TITRATE PRN IV Tachycardia 06/24/17 15:00 06/30/17 06:15 Digoxin (Lanoxin Inj) 0.125 mg DAILY IV PUSH 06/25/17 13:30 06/29/17 08:22 Acetaminophen (Tylenol) 650 mg Q4H PRN PO SEE LABEL COMMENTS 06/28/17 08:15 06/28/17 11:42 Diphenhydramine HCl (Benadryl) 25 mg Q4H PRN PO SEE LABEL COMMENTS 06/28/17 08:15 06/28/17 11:42 Enoxaparin Sodium (Lovenox Inj) 40 mg Q24H SQ 06/29/17 08:00 06/29/17 08:21 Albuterol/ Ipratropium (Duoneb Neb) 1 ampule Q6HR NEB NEB 06/29/17 16:00 06/30/17 08:00 Objective Remarks GENERAL APPEARANCE: Mr. Armendariz is a middle-aged/elderly male. He is laying in bed. He is responsive. He is intubated, ventilated and he is responsive and seems alert. HEENT: Head atraumatic, normocephalic. Conjunctivae are pale. Sclerae are anicteric, EOMI, PERRLA, oral exam no pharyngeal erythema. NECK: No palpable cervical or supraclavicular lymphadenopathy. RESPIRATORY: Good air movement bilaterally. No added breath sounds. He has prolonged expiratory phase. He is initiating multiple spontaneous breaths. CARDIOVASCULAR: Irregular, tachycardiac, S1 S2, no obvious murmurs, rubs or gallops. ABDOMEN: The belly is soft. An ileostomy bag is noted containing liquid stools. A well-healing laparotomy incision in the midline is appreciated. The abdomen does not appear to be distended, there appears to be no significant increase in tympany on percussion. There are no signs of acute abdomen. LOWER EXTREMITIES: No pretibial edema, no calf tenderness. Upper extremities: Right upper extremity with edema. MUSCULOSKELETAL: There appears to be muscle atrophy. DIRECTOR TRADE: No spontaneous movement of the limbs. Assessment/Plan Assessment Mr. Armendariz is a 67-year-old male who was recently diagnosed with metastatic adenocarcinoma of the rectosigmoid colon and had resection of a metastatic deposit to the liver. He is status post primary surgical resection as well as wedge resection of a metastatic deposit to the liver and now has C difficile colitis. 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 Plan 1: Thrombocytopenia with positive Heparin/PLT factor 4 Joanne antibody was a false positive, serotonin release assay was negative. Continue Lovenox 40 mg subcutaneous daily. The thrombocytopenia was most likely secondary to sepsis and a consumptive coagulopathy due to his C. difficile associated severe sepsis. Platelet counts are noted to be 37,000 today (down from 51,000 on 06/29/2017). 2. Progressive anemia: Likely secondary to critical illness, sepsis, blood draws and possible bleeding though no overt bleeding has been appreciated to the ostomy site. He seems to have minimal hematuria from the Han catheter. 3. Metastatic colon carcinoma: Await recovery before addressing this. Disposition: Overall the patient appears to be recovering well. I'm encouraged by him being more awake and alert today and initiation of CPAP trials. For management of his anemia I would recommend transfusing to maintain hemoglobin over 8 g/dL. His platelet counts are declining, he may require additional platelet transfusion. Continue prophylactic anticoagulation with Lovenox for the time being. As his condition improves and his platelet counts and hemoglobin stabilized I will gradually titrate up the dosing of Lovenox for anticoagulation for management of his upper extremity venous thrombosis. Faraz Ryan MD Jun 30, 2017 08:07
[2017-06-30] MEDS: CHLORHEXIDINE 0.12% (ORAL KIT) 15 ML CUP MT SCH ×2 (08:33→21:11)
[2017-06-30] MEDS: SODIUM PHOSPHATE INJ 30 MMOL in SODIUM CHLOR 0.9% 250 ML INJ 240 ML IV PRN (08:33)
[2017-06-30] MEDS: SODIUM CHLORIDE 0.9% IRRIGATION SCH ×3 (08:34→17:53)
[2017-06-30] MEDS: VANCOMYCIN IRRIGATION SCH ×3 (08:34→17:53)
[2017-06-30] MEDS: IRR IRRIGATION SCH ×3 (08:34→17:53)
[2017-06-30] MEDS: ENOXAPARIN SODIUM 40 MG/0.4 ML SYRINGE SQ SCH (08:34)
[2017-06-30] MEDS: ALVIMOPAN 12 MG CAPSULE NG SCH (08:35)
[2017-06-30] MEDS: VANCOMYCIN 500 MG VIAL (FOR ORAL USE ONLY) NG SCH ×4 (08:36→21:16)
[2017-06-30] MEDS: DIGOXIN 0.5 MG/2 ML VIAL IV PUSH SCH (08:37)
--- NOTE | 2017-06-30 14:27 | HHI.IDPN ---
Note Infectious Disease Note Patient on CPAP. over 2 hours. Awake. No meaningful response. Afebrile. Reportedly has sacral eschar. seen by wound care yesterday. Admitted to the hospital with weakness, abdominal pain and nausea. The patient is status post anterior resection of colon and rectal areas and anastomosis along with a diverting ileostomy and also resection of a segment of left ureter with ureteral anastomosis and double-J stent placement three weeks prior. PAST MEDICAL HISTORY: 1. Hypertension. 2. Left knee surgery. 3. Metastatic colon cancer status post resection and coloanal anastomosis and also resection and re-anastomosis of the left ureter with double-J stent placement. ALLERGIES: 1. CODEINE. MEDICATIONS: 1. Metronidazole. 2. PO Vancomycin. 3. Vanco irrigation. SOCIAL HISTORY: . Positive tobacco use. No alcohol. No illicit drug use. OBJECTIVE: Vital Signs Date Time Temp Pulse Resp B/P (MAP) Pulse Ox O2 Delivery O2 Flow Rate FiO2 06/30/17 11:45 100 40 06/30/17 11:44 40 06/30/17 08:53 98 40 06/30/17 08:50 40 06/30/17 08:15 40 06/30/17 08:06 40 06/30/17 08:06 100 40 06/30/17 08:00 99 18 126/60 (82) 97 142/55 (84) 06/30/17 08:00 40 06/30/17 08:00 99 06/30/17 06:15 95 105/44 06/30/17 06:00 97 06/30/17 04:00 99.3 96 33 122/53 (76) 99 94/40 (58) 06/30/17 04:00 120 06/30/17 04:00 40 06/30/17 03:20 99 40 06/30/17 02:00 102 06/30/17 00:44 100 40 06/30/17 00:00 40 06/30/17 00:00 128 06/30/17 00:00 98.5 115 25 139/62 (87) 99 110/47 (68) 06/29/17 22:00 106 06/29/17 20:58 100 40 06/29/17 20:00 94 06/29/17 20:00 40 06/29/17 20:00 98.6 94 22 109/66 (80) 100 123/54 (77) 06/29/17 18:00 103 20 118/56 (76) 100 129/56 (80) 06/29/17 18:00 103 06/29/17 17:00 98 24 112/57 (75) 100 109/50 (69) 06/29/17 16:28 111 116/54 06/29/17 16:00 107 06/29/17 16:00 40 06/29/17 16:00 100.3 107 26 117/67 (84) 100 126/57 (80) 06/29/17 15:18 100 40 06/29/17 15:00 110 28 115/56 (75) 99 113/53 (73) Laboratory Tests Test 06/29/17 04:00 06/30/17 04:00 White Blood Count 13.6 TH/MM3 12.9 TH/MM3 Red Blood Count 3.27 MIL/MM3 2.94 MIL/MM3 Hemoglobin 9.2 GM/DL 8.5 GM/DL Hematocrit 28.3 % 25.8 % Mean Corpuscular Volume 86.3 FL 87.7 FL Mean Corpuscular Hemoglobin 28.0 PG 28.8 PG Mean Corpuscular Hemoglobin Concent 32.4 % 32.8 % Red Cell Distribution Width 16.0 % 16.6 % Platelet Count 51 TH/MM3 37 TH/MM3 Mean Platelet Volume 10.6 FL 10.9 FL Laboratory Tests Test 06/28/17 17:28 06/29/17 04:00 06/30/17 04:00 Lactic Acid Level 1.3 mmol/L Blood Urea Nitrogen 38 MG/DL 34 MG/DL Creatinine 1.00 MG/DL 0.90 MG/DL Random Glucose 134 MG/DL 174 MG/DL Total Protein 5.8 GM/DL Calcium Level 7.4 MG/DL 7.7 MG/DL Sodium Level 141 MEQ/L 143 MEQ/L Potassium Level 4.2 MEQ/L 3.7 MEQ/L Chloride Level 109 MEQ/L 109 MEQ/L Carbon Dioxide Level 26.7 MEQ/L 27.6 MEQ/L Anion Gap 5 MEQ/L 6 MEQ/L Estimat Glomerular Filtration Rate 74 ML/MIN 84 ML/MIN Protein Corrected Calcium 8.1 MG/DL Phosphorus Level 1.7 MG/DL Magnesium Level 2.4 MG/DL IMAGING: Chest X-Ray 06/30/17 0600 Signed Impressions: Service Date/Time: June 03:02 - CONCLUSION: 1. Improving bibasilar densities. Sarwat Suarez MD Chest X-Ray [id number] Signed Impressions: Service Date/Time: Tuesday, June 27, 2017 04:23 - CONCLUSION: 1. Stable chest. 2. Bilateral patchy opacities and probable small pleural effusions. Sarwat Suarez MD Abdomen X-Ray [id number] Signed Impressions: Service Date/Time: Tuesday, June 27, 2017 04:29 - CONCLUSION: Stable abdomen. Sarwat Suarez MD Liver Ultrasound 06/24/17 Signed Impressions: Service Date/Time: Saturday, June 24, 2017 16:38 - CONCLUSION: 1. Small volume ascites. 2. Small right effusion. Pierce Ospina Jr., MD Upper Extremity Ultrasound 06/23/17 Signed Impressions: Service Date/Time: June 20:03 - CONCLUSION: Noncompressibility right cephalic vein and left basilic vein consistent with venous thrombosis Trav Hsieh MD Lower Extremity Ultrasound 06/23/17 Signed Impressions: Service Date/Time: June 20:16 - CONCLUSION: Normal examination. No evidence DVT Trav Hsieh MD Chest CT 06/20/17 Signed Impressions: Service Date/Time: Tuesday, June 20, 2017 07:42 - CONCLUSION: 1. Bilateral effusions and consolidative changes in both lung bases. Bao Lora MD Abdomen/Pelvis CT 06/20/17 Signed Impressions: Service Date/Time: Tuesday, June 20, 2017 07:39 - CONCLUSION: 1. Dilated stomach and multiple dilated loops of small bowel, likely ileus. 2. No definite gastric volvulus. 3. Fat containing right inguinal hernia which also contains small portion of the urinary bladder and minimal fluid. 4. Left-sided nephroureteral stent in good position. 5. Bibasilar consolidation and small pleural effusions. Sarwat Suarez MD PHYSICAL EXAMINATION: GENERAL: No acute distress. HEAD, EYES, EARS, NOSE, THROAT: No icterus. Oropharynx with dry mucosa. NECK: Supple. LUNGS: Decreased breath sounds. HEART: Regular S1-S2 without murmurs, rubs or gallops. ABDOMEN: Positive bowel sounds. Soft. Not tender. EXTREMITIES: No clubbing or cyanosis or edema. SKIN: No rash. NEUROLOGIC: Nonfocal. IMPRESSION: 1. Severe sepsis/ Bandemia in a patient with lactic acidosis. The patient is status post recent surgery for rectal cancer and recent ureteral resection and double J ureteral stent. 2. C difficile colitis. Pseudomembranous enteritis/sepsis. 3. Acute respiratory failure. 4. Abnormal CXR - probable atelectasis. Improving. 5. Leukocytosis. 6. Elevated LFT's. RECOMMENDATIONS: 1. Continue Flagyl IV. 2. Continue PO Vancomycin. 3. Monitor temp. 4. Monitor clinical status. El Espinoza MD Jun 30, 2017 14:27
--- NOTE | 2017-06-30 14:49 | HHI.CCPN ---
Subjective Remarks/Hospital Course The patient is a 67-year-old male with past medical history of hypertension, metastatic colon cancer, tobacco abuse, who, about 3 weeks ago underwent low anterior resection with low colorectal anastomosis, diverting ileostomy, and resection of a segment of the left ureter with ureteral anastomosis and double- J stent placement. He presented yesterday with 5 day history of abdominal discomfort and increasing weakness. No history of high output from ileostomy. He was admitted to the colorectal surgery for dehydration and probable UTI. He was placed on ciprofloxacin and IV hydration. According to Dr. Geiger's note it was difficult dissection/resection colon mass because of the pelvic sidewall adherence and the adherence to the left ureter. A portion of ureter was resected due to possibility of tumor infiltration, and Dr. Augustine Pelayo re- anastomosed the ureter and placed left-sided double-J stent. Also 1 cm hepatic metastasis in his liver that was excised. Hospitalist consultation was requested for medical management and evaluation of tachycardia today. He was seen by Dr. Jay and was placed on infusion of Cardizem for heart rate 140s. Patient became hypotensive with systolic blood pressure early 90s. Lab work showed WBC 14.5 with 44% bands, creat increase from 1.2 to 1.4 and severely increased lactate at 8 from admission lactate of 2.6. CT of the abdomen pelvis done yesterday showed probable small bowel ileus. I evaluated the patient in the ICU. He is tachycardic in 140s, hypotensive and systolic blood pressure in mid 80s. Clinically appears very dehydrated, an NG tube was placed with approximately 3 L of some coffee-ground output. ABG shows a base excess of -10 and bicarbonate 12. I have ordered 4 liter normal saline boluses start 1 amp of bicarbonate, discontinued the LR infusion, and started bicarb gtt. Discontinue ciprofloxacin, started Zosyn every 6 hours, vancomycin 1 g 1. His elevated lactic acid and bandemia most likely secondary to severe sepsis, ileus, and severe dehydration. Serial lactate is ordered SUBJ 06/19: Lactic acid remains elevated at 6.6 despite getting 9 L of crystalloid boluses in last 24 hours. Tachycardia has improved heart rate in 110s. Remains on vasopressin at 0.04 units/min. Urine output almost 1200 mL overnight, OGT initial output was almost 3 L when placed yesterday a.m. Overnight had 550 mL of greenish brown fluid output. EGD pending today rule out gastric ischemia per Dr. Romero. Apparently Flex sig was negative post op in Dr. Geiger's office 06/20: Developed A. fib with RVR. Heart rate 200. Hemodynamically unstable, synchronized cardioversion attempted by Dr. Morales 100 200 J. Given 3 g mag sulfate and 80 mEq KCl 1, 0.5 digoxin 1 and started on amiodarone and Giorgio- Synephrine. Intubated due to hemodynamic instability. Currently remains sedated. Currently on Giorgio-Synephrine 80 mcg/m, and amiodarone. CT chest abdomen pelvis again confirms gastric and small bowel distention/ileus. UO 1800 ml in 24 hours 06/21: Remains critically ill, intubated sedated, on 100 mcg/min neosynpehrine. HR better controlled. NG output 1500, UO >1.4L. Am labs pending. Ileostomy sample positive for C Diff on PO vanc IV Flagyl. 06/22: Remains intubated sedated. Urine output 3000 mL with Bumex. NGT [address] Geiger did colonoscopy which was normal. Ileoscopy showed pseudomembranous colitis. Currently on 200 mcg/min of neosynephrine. Afib with RVR HR in 140's 06/23: Remains intubated sedated, remains in atrial fibrillation with RVR. Still requiring high doses of Giorgio-Synephrine at 190 mcg/min. UO 2.5L. chest x- ray showed bilateral large effusions. KUB shows improving small bowel distention. WBC count is slightly improved 06/24: Unable to control HR. Repeat shock x3 today. remains in atrial fibrillation with RVR rates 160-170 intermittently. Remains on amiodarone but will discontinued due to elevation of liver enzymes AST 546 ALT 158. (GI notified). Start Cardizem infusion and also give Surjit 0.5 mg 1. Platelet count continues to drop from 67 to today 45. Hematology following will start of Argatroban today. Creatinine has slightly increased to 1.3 to will DC Bumex infusion 06/25: Patient remains intubated sedated critically ill. Heart rate controlled for the first time since atrial fibrillation started. Heart rate remains 80- 90. Urine output 1200 mL in 24 hours but BUN/creatinine increasing 44/1.7. I will hydrate with 50 mL/hr normal saline for 24 hours. Transaminitis increasing AST 1300 ALT 386. Ultrasound of the liver unremarkable GI following 06/26: PTT elevated due to Argatorban/Liver failure. Dr. Hurley has DCd argatroban. SMILEY pending. Pl count is 21. Currently in sinus rhythm on Cardizem infusion. Not on any pressors. Creatinine improved to 1.2. Urine output adequate. Becomes very tachypneic on attempted CPAP. Discussed with Dr. Geiger Will Start Trickle Tube Feeds 06/27: no improvements. off pathway. thrombocytopenia persists. unable to wean from mechanical ventilation. neuro exam poor. will likely need trach. 06/28: platelets worse today. SMILEY not resulted yet. failing SBT and mental status poor. poor prognosis. will need trach and LTAC placement. 06/29: Tmax 101. Currently 99.6. Tolerating trickle tube feeds. Continues to fail spontaneous breathing trials. Subjective 06/30: Lasted 1 hour spontaneous breathing trial this AM. 2.5 hours this afternoon. Currently afebrile. Hemoglobin remained stable. Objective Vital Signs Date Time Temp Pulse Resp B/P (MAP) Pulse Ox O2 Delivery O2 Flow Rate FiO2 06/30/17 11:45 100 40 06/30/17 08:00 99 18 126/60 (82) 142/55 (84) 06/30/17 04:00 99.3 Intake and Output 06/30/17 06/30/17 07/01/17 08:00 16:00 00:00 Intake Total 116 ml Output Total 875 ml Balance -759 ml Result Diagram: 06/30/17 0400 06/30/17 0400 Other Results Microbiology Date/Time Source Procedure Growth Status 06/20/17 17:11 Blood Peripheral Aerobic Blood Culture - Final NO GROWTH IN 5 DAYS Complete 06/20/17 17:11 Blood Peripheral Anaerobic Blood Culture - Final NO GROWTH IN 5 DAYS Complete 06/20/17 15:50 Urine Catheterized Urine Urine Culture - Final NO GROWTH IN 48 HOURS. Complete Imaging Last Impressions Chest X-Ray 06/30/17 0600 Signed Impressions: Service Date/Time: June 03:02 - CONCLUSION: 1. Improving bibasilar densities. Sarwat Suarez MD Abdomen X-Ray 06/27/17 0600 Signed Impressions: Service Date/Time: Tuesday, June 27, 2017 04:29 - CONCLUSION: Stable abdomen. Sarwat Suarez MD Liver Ultrasound 06/24/17 Signed Impressions: Service Date/Time: Saturday, June 24, 2017 16:38 - CONCLUSION: 1. Small volume ascites. 2. Small right effusion. Pierce Ospina Jr., MD Upper Extremity Ultrasound 06/23/17 Signed Impressions: Service Date/Time: June 20:03 - CONCLUSION: Noncompressibility right cephalic vein and left basilic vein consistent with venous thrombosis Trav Hsieh MD Lower Extremity Ultrasound 06/23/17 Signed Impressions: Service Date/Time: June 20:16 - CONCLUSION: Normal examination. No evidence DVT Trav Hsieh MD Chest CT 06/20/17 Signed Impressions: Service Date/Time: Tuesday, June 20, 2017 07:42 - CONCLUSION: 1. Bilateral effusions and consolidative changes in both lung bases. Bao Lora MD Abdomen/Pelvis CT 06/20/17 Signed Impressions: Service Date/Time: Tuesday, June 20, 2017 07:39 - CONCLUSION: 1. Dilated stomach and multiple dilated loops of small bowel, likely ileus. 2. No definite gastric volvulus. 3. Fat containing right inguinal hernia which also contains small portion of the urinary bladder and minimal fluid. 4. Left-sided nephroureteral stent in good position. 5. Bibasilar consolidation and small pleural effusions. Sarwat Suarez MD Objective Remarks GENERAL: 67-year-old male intubated sedated critically ill. SKIN: Warm and dry. HEENT: Extraocular muscles intact. NECK: The neck is supple. LIJ central line in place CHEST:Few coarse rhonchi Equal bilaterally. Becomes tachypneic on CPAP CVS: Tachycardia, IR. S1, S2 no S4. ABDOMEN: Abdomen is slightly distended, soft. Incision appears healing well. Ileostomy is functioning well. NGT in place EXTREMITIES: No pedal edema or cyanosis NEURO: Intubated heavily sedated. Moves all extremities, not following commands Date of Insertion: Jun 18, 2017 Side: Left Location: Internal A/P Assessment and Plan PLAN: NEURO: - Midazolam 2 mg an hour for sedation and vent synchrony - Goal of RASS -0 - Daily sedation vacation RESP: Acute hypoxemic respiratory failure - persistent. - ACV PEEP 5. FiO2 40%. -Albuterol/ipratropium every 6 hours with albuterol aerosols every 2 hours. Dyspnea -Ventilator bundle - Attempt daily SBT, continues to fail due to severe tachypnea on pressure support is lasted 1.5 hours today. - Bilateral small pleural effusion on chest x-ray CV: Atrial fibrillation with RVR - persistent. - Cardioverted several times without success and amiodarone started for A. fib with RVR - Amio DCd 06/24 due to Liver enzyme elevation.remains on Cardizem infusion and Digoxin. still back in afib with variable rate. very resistant afib and difficult to control. - IV Heparin discontinued due to Hit screen positive hematology consulted. Argatroban DCd 06/[address] Hurley SMILEY negative. - s/p Normal saline IV fluids 8L boluses on 06/18/17, No IVF now except TPN -Bumetanide DCd 06/24 due to increasing creatinine. NS 50 ml per hour for 24 hours 06/25-06/26. Creatinine improved to 1.2 - 2D Echo normal LV function GI: s/p Left colectomy with colorectal anastomosis, diverting ileostomy, wedge resection of liver metastasis C Diff enteritis/ileitis Transaminitis -Trickle feeds, TPN at 50 cc an hour with lipids daily. - Pantoprazole 40 mg IV twice a day - Transaminitis most likely secondary to amiodarone and TPN and hypotension, interval worsening AST 1300, ALT 386, today improved to 686/276 recheck in a.m. - Gastroenterology Dr. Saldana. EGD 06/19. Evidence of esophagitis, and erythematous gastritis in the gastric body and gastric antrum - C Diff positive from ileostomy sample indicating C Diff enteritis. On PO vanc and IV Flagyl - Dr. Geiger 06/22. Colonoscopy normal. Ileoscopy severe pseudomembranous ileitis - IV metoclopramide [address] abdomen pelvis and KUB shows small bowel ileus., KUB 06/23 improving ileus - Continue Alvimopan 12 mg every 12 hours for ileus : s/p Partial resection of the left ureter with anastomosis and placement of double-J stent - Monitor renal function closely. Han catheter. UO adequate ID: - ID Dr. Espinoza - PO Vancomycin and IV metronidazole for C diff enteritis - F/u blood and urine culture -negative to date HEME: Thrombocytopenia likely consumptive secondary to sepsis, hit screen positive SMILEY negative Normocytic anemia - Monitor CBC, CMP - HIT screen positive- consulted hematology - Argatroban started 06/24/17, DCd 06/26/[address] Hurley - According to Dr. Hurley elevated PTT secondary to decreased liver clearance of argatroban - Once PTT normal, use Arixtra. ENDO: Hypophosphatemia - Electrolyte replacement per protocol -Sliding-scale insulin to maintain euglycemia 30 mmol K-Phos IV. No PROPH: -Bilateral lower extremity SCDs. Currently on enoxaparin DVT dose, IV pantoprazole 40 q12 LINES: - Left IJ central line, radial art line Critically ill stable. Multi organ involvement makes diagnosis still guarded. Needs placement and long-term vent wean. Level II follow-up Leroy Musa MD Jun 30, 2017 14:49
--- NOTE | 2017-06-30 16:59 | HHI.GIFU ---
Subjective Remarks Resting in bed on CPAP. reports that he has been on CPAP since 12 noon. He is lethargic, but awake and following commands. TF going at 15cc/hr. + BM in ileostomy bag. Objective Vitals I&O Vital Signs Date Time Temp Pulse Resp B/P (MAP) Pulse Ox O2 Delivery O2 Flow Rate FiO2 06/30/17 16:03 100 40 06/30/17 11:45 100 40 06/30/17 11:44 40 06/30/17 08:53 98 40 06/30/17 08:50 40 06/30/17 08:15 40 06/30/17 08:06 40 06/30/17 08:06 100 40 06/30/17 08:00 99 18 126/60 (82) 97 142/55 (84) 06/30/17 08:00 40 06/30/17 08:00 99 06/30/17 06:15 95 105/44 06/30/17 06:00 97 06/30/17 04:00 99.3 96 33 122/53 (76) 99 94/40 (58) 06/30/17 04:00 120 06/30/17 04:00 40 06/30/17 03:20 99 40 06/30/17 02:00 102 06/30/17 00:44 100 40 06/30/17 00:00 40 06/30/17 00:00 128 06/30/17 00:00 98.5 115 25 139/62 (87) 99 110/47 (68) 06/29/17 22:00 106 06/29/17 20:58 100 40 06/29/17 20:00 94 06/29/17 20:00 40 06/29/17 20:00 98.6 94 22 109/66 (80) 100 123/54 (77) 06/29/17 18:00 103 20 118/56 (76) 100 129/56 (80) 06/29/17 18:00 103 06/29/17 17:00 98 24 112/57 (75) 100 109/50 (69) I/O 06/29/17 06/29/17 06/29/17 06/30/17 06/30/17 06/30/17 07:00 15:00 23:00 07:00 15:00 23:00 Intake Total 1021.5 ml 150 ml 1228 ml 116 ml Output Total 990 ml 0 ml 1725 ml 875 ml Balance 31.5 ml 150 ml -497 ml -759 ml IV Total 849.5 ml 150 ml 853 ml Tube Feeding 172 ml 175 ml 116 ml Other 200 ml Output Urine Total 590 ml 650 ml 425 ml Stool Total 400 ml 1075 ml 450 ml Tube Feeding Residual Discard 0 ml Laboratory Laboratory Tests Test 06/30/17 04:00 White Blood Count 12.9 Red Blood Count 2.94 Hemoglobin 8.5 Hematocrit 25.8 Mean Corpuscular Volume 87.7 Mean Corpuscular Hemoglobin 28.8 Mean Corpuscular Hemoglobin Concent 32.8 Red Cell Distribution Width 16.6 Platelet Count 37 Mean Platelet Volume 10.9 Prothrombin Time 11.3 Prothromb Time International Ratio 1.0 Activated Partial Thromboplast Time 35.6 Blood Urea Nitrogen 34 Creatinine 0.90 Random Glucose 174 Calcium Level 7.7 Phosphorus Level 1.7 Magnesium Level 2.4 Sodium Level 143 Potassium Level 3.7 Chloride Level 109 Carbon Dioxide Level 27.6 Anion Gap 6 Estimat Glomerular Filtration Rate 84 Date/Time Source Procedure Growth Status 06/20/17 17:11 Blood Peripheral Aerobic Blood Culture - Final NO GROWTH IN 5 DAYS Complete 06/20/17 17:11 Blood Peripheral Anaerobic Blood Culture - Final NO GROWTH IN 5 DAYS Complete 06/20/17 15:50 Urine Catheterized Urine Urine Culture - Final NO GROWTH IN 48 HOURS. Complete Imaging Last Impressions Chest X-Ray 06/30/17 0600 Signed Impressions: Service Date/Time: June 03:02 - CONCLUSION: 1. Improving bibasilar densities. Sarwat Suarez MD Abdomen X-Ray 06/27/17 0600 Signed Impressions: Service Date/Time: Tuesday, June 27, 2017 04:29 - CONCLUSION: Stable abdomen. Sarwat Suarez MD Liver Ultrasound 06/24/17 0000 Signed Impressions: Service Date/Time: Saturday, June 24, 2017 16:38 - CONCLUSION: 1. Small volume ascites. 2. Small right effusion. Pierce Ospina Jr., MD Upper Extremity Ultrasound 06/23/17 0000 Signed Impressions: Service Date/Time: June 20:03 - CONCLUSION: Noncompressibility right cephalic vein and left basilic vein consistent with venous thrombosis Trav Stone, MD Lower Extremity Ultrasound 06/23/17 0000 Signed Impressions: Service Date/Time: June 20:16 - CONCLUSION: Normal examination. No evidence DVT Trav Hsieh MD Chest CT 06/20/17 0000 Signed Impressions: Service Date/Time: Tuesday, June 20, 2017 07:42 - CONCLUSION: 1. Bilateral effusions and consolidative changes in both lung bases. Bao Lora MD Abdomen/Pelvis CT 06/20/17 0000 Signed Impressions: Service Date/Time: Tuesday, June 20, 2017 07:39 - CONCLUSION: 1. Dilated stomach and multiple dilated loops of small bowel, likely ileus. 2. No definite gastric volvulus. 3. Fat containing right inguinal hernia which also contains small portion of the urinary bladder and minimal fluid. 4. Left-sided nephroureteral stent in good position. 5. Bibasilar consolidation and small pleural effusions. Sarwat Suarez MD Physical Exam HEENT: Normocephalic; atraumatic; no jaundice. CHEST: OETT to CPAP. Course breath sounds. CARDIAC: RRR- rate 98 ABDOMEN: Soft, distended, ileostomy with small liquid in ostomy bag. OGT with TF at 15cc/hr EXTREMITIES: BUE edema. SKIN: Normal; no rash; no jaundice. 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 Assessment and Plan Plan ASSESSMENT: - Elevated LFTs. Receiving TPN (started 06/19), started on amiodarone (started 06/19- off 06/24). LFTs were normal on 06/19. The AST went to 42 on 06/22 and 129 on 06/23. These spiked T. Bili 1.3, AST 546, ALT 158, Alk Phosph 197 on 06/24. Of note he had atrial fibrillation with RVR, HR 160's. His amiodarone was changed to Cardizem and his hr is now controlled, but he did have some hypotensive episodes overnight. This morning, his b/p is 106/56. Most likely, his LFT derangement is secondary to medications (suspect possibly combination of tpn and amiodarone), sepsis, possible congestive hepatopathyrelated to Afib with RVR. 06/25 had increase- (T. Bili 1.7, AST 1300, ALT 386, ALK Phosph 239) . Likely related to shocked liver from hypotensive episodes over night. Liver US (06/24/17)---> Small volume ascites. Small right effusion. ASMA negative. Alpha 1 Antitrypsin 221. Hepatitis panel pending., LOIS neg, AMA pending, Ceruloplasmin 74. AFP 3.3, Ferritin 5508. Iron saturation > 100%. He received one unit of blood on 06/18. Hfe gene pending. Recommend avoiding hepatotoxins, hypotensive episodes, and starting enteral feedings when able to from CRS standpoint. LFTs have been improving, but has not been checked since 06/28. Will check in am. - Severe sepsis with lactic acidosis with concern for possible bowel ischemia, CDifficile. Pt presented to ER with abdominal pain, n/v, generalized weakness. CT scan abdomen and pelvis with IV contrast (06/17/17)---> Dilatation of the distal small bowel when compared to proximal. Minimal colonic gas is evidence. Zone of transition appears to be in the right lower quadrant. I can see the transition but not etiology for such. BCx no growth 1 day, Urine cx 50-100,000 CFU/mL mixed mark. GI consulted for egd/ileoscopy to evaluate for bowel ischemia. S/P EGD/Colonoscopy (06/19/17)----> 1. There was LA Class B esophagitis noted 2. There was erythematous gastritis in the gastric body and gastric antrum; 2. 400cc of fluid suctioned from the stomach. ? gastric volvulus 3. Retroflexed views revealed no abnormalities Abnormal small bowel mucosa to 15cm. Pseudomembranous illeitis. ? ischemia. Pathology duodenal mucosa without significant histologic abnormality. moderate chronic gastritis and associated reactive epithelial changes. Negaive for helicobacter pylori, acute enteritis with features of ulceration. CDiff PCR (+) Epid 027 (-). ID following. CT scan abdomen and pelvis without contrast (06/20/17)---> dilated stomach and multiple dilated loops of small bowel, likely ileus. No definite gastric volvulus. Fat containing right ingional hernia which also contains small portion of the urinary bladder and minimal fluid. Left sided nephroureteral stent in good position. bibasilar consolidation and small pleural effusions. S/P Colonoscopy and ileoscopy (06/22/17)----> normal colonoscopy with ileal pseudomembranous colitis. ID is following. Flagyl, Oral Vanco, Vanco enemas via ileostomy. - CDiff. Vanco enemas via ileostomy/Oral vanco/Flagyl. ID following - PSBO/?Gastric volvulus. ? Volvulus on egd. Upper gi series ordered, d/c'd by CRS. CT scan abdomen and pelvis without contrast (06/20/17)---> dilated stomach and multiple dilated loops of small bowel, likely ileus. No definite gastric volvulus. Fat containing right ingional hernia which also contains small portion of the urinary bladder and minimal fluid. Left sided nephroureteral stent in good position. bibasilar consolidation and small pleural effusions. KUB (06/20/17)--> Nasogastric tube distal tip is in the gastric cardia region likely just beyond the GE junction. However, sentinel hole is in the distal esophagus, suggest advancement. Abnormally dilated small bowel obstruction. TPN. TF going at 15cc/hr, slowly - Respiratory failure, small pleural effusion. Vent per CCM - NEIL. Improved - Anemia. S/P 1 unit prbc. 8.5/25.8 - Atrial fibrillation with RVR. Improved,now sr, rate 98. - Thrombocytopenia. S/P 1 unit platelet Plt 37 - Metastatic colon cancer. S/P lower anterior resection/coloanal anastomosis, resection and reanastomosis of the left ureter with ureteral anastomosis and double-J stent placement, wedge resection of hepatic metastasis, mobilization of the splenic flexure, and diverting closed loop ileostomy with Dr. Geiger and Dr. Pelayo on 05/26/17. Dr. Noel is his oncologist, but he has not seen him since his surgery PLAN: - Trickle feeds, will defer advancing to CRS - Cont. TPN for now - Cont. PPI - Await ama, Hfe gene - Abx per ID recommendations, Vanco enemas, Oral Vanco, Flagyl - Monitor labs - Supportive care - Avoid hepatotoxins - Avoid hypotensive episodes - Further recommendations to follow based on results of above - Pt seen and examined by Dr. Guaman and myself and this note is written on his behalf Tami Sanderson Jun 30, 2017 16:59
[2017-06-30 17:20] LABS: HEREDITARY HEMOCHROM SPECIMEN WB Whole Blood
--- NOTE | 2017-06-30 17:27 | HHI.PR ---
Subjective Remarks Pt remains intubated but tolerating CPAP for a long while today. Awake and responsive. Objective Vital Signs Date Time Temp Pulse Resp B/P (MAP) Pulse Ox O2 Delivery O2 Flow Rate FiO2 06/30/17 16:03 100 40 06/30/17 11:45 100 40 06/30/17 11:44 40 06/30/17 08:53 98 40 06/30/17 08:50 40 06/30/17 08:15 40 06/30/17 08:06 40 06/30/17 08:06 100 40 06/30/17 08:00 99 18 126/60 (82) 97 142/55 (84) 06/30/17 08:00 40 06/30/17 08:00 99 06/30/17 06:15 95 105/44 06/30/17 06:00 97 06/30/17 04:00 99.3 96 33 122/53 (76) 99 94/40 (58) 06/30/17 04:00 120 06/30/17 04:00 40 06/30/17 03:20 99 40 06/30/17 02:00 102 06/30/17 00:44 100 40 06/30/17 00:00 40 06/30/17 00:00 128 06/30/17 00:00 98.5 115 25 139/62 (87) 99 110/47 (68) 06/29/17 22:00 106 06/29/17 20:58 100 40 06/29/17 20:00 94 06/29/17 20:00 40 06/29/17 20:00 98.6 94 22 109/66 (80) 100 123/54 (77) 06/29/17 18:00 103 20 118/56 (76) 100 129/56 (80) 06/29/17 18:00 103 I/O 06/29/17 06/29/17 06/29/17 06/30/17 06/30/17 06/30/17 07:00 15:00 23:00 07:00 15:00 23:00 Intake Total 1021.5 ml 150 ml 1228 ml 116 ml Output Total 990 ml 0 ml 1725 ml 875 ml Balance 31.5 ml 150 ml -497 ml -759 ml IV Total 849.5 ml 150 ml 853 ml Tube Feeding 172 ml 175 ml 116 ml Other 200 ml Output Urine Total 590 ml 650 ml 425 ml Stool Total 400 ml 1075 ml 450 ml Tube Feeding Residual Discard 0 ml Result Diagram: 06/30/1739906/30/17399 Objective Remarks VS-S Rate controlled Gen: Pt comfortable Abd: Soft. Mild distention. Wound healed. Stoma now with appropriate bilious outputs Ext: Mild edema Labs: Mostly improving I&Os: OK Assessment and Plan Assessment and Plan Stable at present. Improved. On CPAP Wean per CCM. Stop Entereg with larger Ileostomy outputs. Luca Geiger MD Jun 30, 2017 17:27
[2017-06-30] MEDS: FAT EMULSION 20% INJ 250 ML (@10 mls/hr) IV-CENTRAL SCH (21:09)
[2017-06-30] MEDS: SODIUM ACETATE IV-CENTRAL SCH ×10 (21:10)
[2017-06-30] MEDS: [UNRECOGNIZED DRUG - OTHER] IV-CENTRAL SCH ×10 (21:10)
[2017-06-30] MEDS: SODIUM CHLORIDE IV-CENTRAL SCH ×10 (21:10)
[2017-07-01] VITALS (16 sets, daily range): BP systolic 89–126; BP diastolic 41–60; PULSE 92–137; RESP 7–24; TEMP 97.8–100; O2SAT 87–100
[2017-07-01] MEDS: DILTIAZEM INJ 125 MG in SODIUM CHLORIDE 0.9% INJ 100 ML IV PRN ×2 (00:35→20:54)
[2017-07-01] MEDS: RESP: ALBUTEROL 2.5 MG/IPRATROPIUM 0.5 MG NEB (SCH) NEB ×4 (03:49→20:14)
[2017-07-01 03:51] LABS: MITOCHONDRIAL ABS LESS THAN 20.0 U (<=20.0)
[2017-07-01] MEDS: INSULIN ASPART SUPPLEMENTAL SCALE SQ SCH ×5 (04:00→20:00)
[2017-07-01] MEDS: MIDAZOLAM 100 MG/100 ML INJ 100 ML IV PRN (04:30)
[2017-07-01 04:36] LABS: MEAN CELL VOLUME 87.8 FL (80.0-100.0); MEAN CORPUSCULAR HEMOGLOBIN 27.7 PG (27.0-34.0); MEAN CORPUSCULAR HGB CONC 31.5 % (32.0-36.0); PLATELET COUNT 22 TH/MM3 (150-450); RED BLOOD COUNT 2.74 MIL/MM3 (4.50-5.90); RED CELL DISTRIBUTION WIDTH 16.4 % (11.6-17.2); WHITE BLOOD COUNT 10.5 TH/MM3 (4.0-11.0)
[2017-07-01 04:51] LABS: MAGNESIUM 2.2 MG/DL (1.5-2.5)
[2017-07-01 05:05] LABS: DIGOXIN 0.8 NG/ML (0.8-2.0); INDIRECT BILIRUBIN 0.6 MG/DL (0.0-0.8); TOTAL BILIRUBIN ADULT 2.7 MG/DL (0.2-1.0)
--- NOTE | 2017-07-01 05:12 | RADRPT ---
EXAM DATE/TIME: 07/01/2017 04:04 [facility] COMPARISON: CHEST SINGLE AP, June 30, 2017, 3:02. INDICATIONS : Evaluate for respiratory failure. MEDICAL HISTORY : Hypertension. Hypercholesterolemia. SURGICAL HISTORY : Appendectomy. ENCOUNTER: Subsequent ACUITY: 2 weeks PAIN SCORE: Non-responsive. LOCATION: chest FINDINGS: Bibasilar consolidation with small right and smaller moderate left pleural effusions are noted, both sides worse in the interim. No pneumothorax. Heart size stable, within normal limits. Endotracheal tube tip is approximately 2.1 cm above the antolin. There is a nasogastric tube coursing into the stomach. Left internal jugular central venous catheter again noted, tip in the superior vena cava. CONCLUSION: Worsening basilar consolidation and pleural effusions, left more so than right. Lines and tubes as ab ove. Luca Rollins MD on July 01, 2017 at 5:09 Board Certified Radiologist. This report was verified electronically.
[2017-07-01] MEDS: SODIUM PHOSPHATE INJ 30 MMOL in SODIUM CHLOR 0.9% 250 ML INJ 240 ML IV PRN (06:24)
[2017-07-01] MEDS: PANTOPRAZOLE SODIUM 40 MG VIAL IV PUSH SCH ×2 (06:24→18:01)
[2017-07-01 06:54] LABS: REVIEW FLAG FINAL
[2017-07-01] MEDS: DIGOXIN 0.5 MG/2 ML VIAL IV PUSH SCH (08:35)
[2017-07-01] MEDS: METOCLOPRAMIDE HCL 10 MG/2 ML VIAL IV PUSH SCH ×2 (08:35→16:04)
[2017-07-01] MEDS: VANCOMYCIN 500 MG VIAL (FOR ORAL USE ONLY) NG SCH ×4 (08:36→20:53)
[2017-07-01] MEDS: VANCOMYCIN IRRIGATION SCH ×3 (08:37→18:02)
[2017-07-01] MEDS: IRR IRRIGATION SCH ×3 (08:37→18:02)
[2017-07-01] MEDS: SODIUM CHLORIDE 0.9% IRRIGATION SCH ×3 (08:37→18:02)
[2017-07-01] MEDS: metroNIDAZOLE 500 MG INJ 100 ML IV SCH ×2 (08:37→16:04)
[2017-07-01] MEDS: CHLORHEXIDINE 0.12% (ORAL KIT) 15 ML CUP MT SCH ×2 (08:38→20:52)
[2017-07-01] MEDS: ENOXAPARIN SODIUM 40 MG/0.4 ML SYRINGE SQ SCH (08:38)
--- NOTE | 2017-07-01 13:15 | HHI.IDPN ---
Note Infectious Disease Note Patient on CPAP. Awake. Alert. Noted to be following commands. Spoke to at bedside. Afebrile. Admitted to the hospital with weakness, abdominal pain and nausea. The patient is status post anterior resection of colon and rectal areas and anastomosis along with a diverting ileostomy and also resection of a segment of left ureter with ureteral anastomosis and double-J stent placement three weeks prior. PAST MEDICAL HISTORY: 1. Hypertension. 2. Left knee surgery. 3. Metastatic colon cancer status post resection and coloanal anastomosis and also resection and re-anastomosis of the left ureter with double-J stent placement. ALLERGIES: 1. CODEINE. MEDICATIONS: 1. Metronidazole. 2. PO Vancomycin. 3. Vanco irrigation. SOCIAL HISTORY: . Positive tobacco use. No alcohol. No illicit drug use. OBJECTIVE: Vital Signs Date Time Temp Pulse Resp B/P (MAP) Pulse Ox O2 Delivery O2 Flow Rate FiO2 07/01/17 12:00 99.6 103 21 95/54 (68) 87 121/53 (75) 07/01/17 12:00 40 07/01/17 12:00 103 07/01/17 10:00 92 07/01/17 08:17 40 07/01/17 08:17 100 40 07/01/17 08:00 40 07/01/17 08:00 98 07/01/17 08:00 98.6 98 7 112/53 (72) 100 126/50 (75) 07/01/17 06:00 101 07/01/17 04:00 95 07/01/17 04:00 97.8 95 19 112/53 (72) 100 108/47 (67) 07/01/17 04:00 40 07/01/17 03:49 100 40 07/01/17 02:00 98 07/01/17 00:35 100 115/50 07/01/17 00:00 94 07/01/17 00:00 100.0 94 20 89/54 (66) 100 102/41 (61) 07/01/17 00:00 40 06/30/17 22:45 100 40 06/30/17 22:00 99 06/30/17 20:17 99 40 06/30/17 20:00 40 06/30/17 20:00 99.3 100 25 109/57 (74) 99 119/49 (72) 06/30/17 20:00 100 06/30/17 18:00 102 06/30/17 16:03 100 40 06/30/17 16:00 40 06/30/17 16:00 94 06/30/17 16:00 98.8 94 15 96/52 (67) 99 109/45 (66) 06/30/17 15:00 97 22 90/52 (65) 100 121/50 (73) 06/30/17 14:00 96 06/30/17 14:00 96 24 99/54 (69) 100 112/41 (64) Laboratory Tests Test 06/30/17 04:00 07/01/17 04:00 White Blood Count 12.9 TH/MM3 10.5 TH/MM3 Red Blood Count 2.94 MIL/MM3 2.74 MIL/MM3 Hemoglobin 8.5 GM/DL 7.6 GM/DL Hematocrit 25.8 % 24.0 % Mean Corpuscular Volume 87.7 FL 87.8 FL Mean Corpuscular Hemoglobin 28.8 PG 27.7 PG Mean Corpuscular Hemoglobin Concent 32.8 % 31.5 % Red Cell Distribution Width 16.6 % 16.4 % Platelet Count 37 TH/MM3 22 TH/MM3 Mean Platelet Volume 10.9 FL 11.3 FL Laboratory Tests Test 06/30/17 04:00 07/01/17 04:00 Blood Urea Nitrogen 34 MG/DL Creatinine 0.90 MG/DL Random Glucose 174 MG/DL Calcium Level 7.7 MG/DL Phosphorus Level 1.7 MG/DL 1.7 MG/DL Magnesium Level 2.4 MG/DL 2.2 MG/DL Sodium Level 143 MEQ/L Potassium Level 3.7 MEQ/L Chloride Level 109 MEQ/L Carbon Dioxide Level 27.6 MEQ/L Anion Gap 6 MEQ/L Estimat Glomerular Filtration Rate 84 ML/MIN Total Bilirubin 2.7 MG/DL Direct Bilirubin 2.1 MG/DL Indirect Bilirubin 0.6 MG/DL Aspartate Amino Transf (AST/SGOT) 120 U/L Alanine Aminotransferase (ALT/SGPT) 89 U/L Alkaline Phosphatase 558 U/L Ammonia LESS THAN 10 MCMOL/L Total Protein 5.0 GM/DL Albumin 1.6 GM/DL Amylase Level 112 U/L Lipase 608 U/L IMAGING: Chest X-Ray 07/01/17 0600 Signed Impressions: Service Date/Time: Saturday, July 01, 2017 04:04 - CONCLUSION: Worsening basilar consolidation and pleural effusions, left more so than right. Lines and tubes as above. Luca Rollins MD Chest X-Ray 06/30/17599 Signed Impressions: Service Date/Time: June 03:02 - CONCLUSION: 1. Improving bibasilar densities. Sarwat Suarez MD Chest X-Ray 06/27/17599 Signed Impressions: Service Date/Time: Tuesday, June 27, 2017 04:23 - CONCLUSION: 1. Stable chest. 2. Bilateral patchy opacities and probable small pleural effusions. Sarwat Suarez MD Abdomen X-Ray 06/27/17599 Signed Impressions: Service Date/Time: Tuesday, June 27, 2017 04:29 - CONCLUSION: Stable abdomen. Sarwat Suarez MD Liver Ultrasound 06/24/17 Signed Impressions: Service Date/Time: Saturday, June 24, 2017 16:38 - CONCLUSION: 1. Small volume ascites. 2. Small right effusion. Pierce Ospina Jr., MD Upper Extremity Ultrasound 06/23/17 Signed Impressions: Service Date/Time: June 20:03 - CONCLUSION: Noncompressibility right cephalic vein and left basilic vein consistent with venous thrombosis Trav Hsieh MD Lower Extremity Ultrasound 06/23/17 Signed Impressions: Service Date/Time: June 20:16 - CONCLUSION: Normal examination. No evidence DVT Trav Hsieh MD Chest CT 06/20/17 Signed Impressions: Service Date/Time: Tuesday, June 20, 2017 07:42 - CONCLUSION: 1. Bilateral effusions and consolidative changes in both lung bases. Bao Lora MD Abdomen/Pelvis CT 06/20/17 Signed Impressions: Service Date/Time: Tuesday, June 20, 2017 07:39 - CONCLUSION: 1. Dilated stomach and multiple dilated loops of small bowel, likely ileus. 2. No definite gastric volvulus. 3. Fat containing right inguinal hernia which also contains small portion of the urinary bladder and minimal fluid. 4. Left-sided nephroureteral stent in good position. 5. Bibasilar consolidation and small pleural effusions. Sarwat Suarez MD PHYSICAL EXAMINATION: GENERAL: No acute distress. HEAD, EYES, EARS, NOSE, THROAT: No icterus. Oropharynx with dry mucosa. NECK: Supple. LUNGS: Decreased breath sounds. HEART: Regular S1-S2 without murmurs, rubs or gallops. ABDOMEN: Positive bowel sounds. Soft. Not tender. EXTREMITIES: No clubbing or cyanosis or edema. SKIN: No rash. NEUROLOGIC: Nonfocal. IMPRESSION: 1. Severe sepsis/ Bandemia.Status post recent surgery for rectal cancer and recent ureteral resection and double J ureteral stent. 2. C difficile colitis. Pseudomembranous enteritis/sepsis. 3. Acute respiratory failure. 4. Abnormal CXR - probable atelectasis. 5. Leukocytosis. Improved. 6. Elevated LFT's. improving. RECOMMENDATIONS: 1. Continue Flagyl IV. 2. Continue PO Vancomycin. 3. Monitor temp and clinical status. El Espinoza MD Jul 01, 2017 13:15
--- NOTE | 2017-07-01 16:02 | HHI.PR ---
Subjective Remarks Pt remains intubated but tolerating CPAP all day today. Awake and responsive. Obviously improving Objective Vital Signs Date Time Temp Pulse Resp B/P (MAP) Pulse Ox O2 Delivery O2 Flow Rate FiO2 07/01/17 14:00 104 07/01/17 12:00 99.6 103 21 95/54 (68) 87 121/53 (75) 07/01/17 12:00 40 07/01/17 12:00 103 07/01/17 10:00 92 07/01/17 08:17 40 07/01/17 08:17 100 40 07/01/17 08:00 40 07/01/17 08:00 98 07/01/17 08:00 98.6 98 7 112/53 (72) 100 126/50 (75) 07/01/17 06:00 101 07/01/17 04:00 95 07/01/17 04:00 97.8 95 19 112/53 (72) 100 108/47 (67) 07/01/17 04:00 40 07/01/17 03:49 100 40 07/01/17 02:00 98 07/01/17 00:35 100 115/50 07/01/17 00:00 94 07/01/17 00:00 100.0 94 20 89/54 (66) 100 102/41 (61) 07/01/17 00:00 40 06/30/17 22:45 100 40 06/30/17 22:00 99 06/30/17 20:17 99 40 06/30/17 20:00 40 06/30/17 20:00 99.3 100 25 109/57 (74) 99 119/49 (72) 06/30/17 20:00 100 06/30/17 18:00 102 06/30/17 16:03 100 40 06/30/17 16:00 40 06/30/17 16:00 94 06/30/17 16:00 98.8 94 15 96/52 (67) 99 109/45 (66) I/O 06/30/17 06/30/17 06/30/17 07/01/17 07/01/17 07/01/17 07:00 15:00 23:00 07:00 15:00 23:00 Intake Total 116 ml 1883 ml 450 ml 350 ml Output Total 875 ml 850 ml 1700 ml Balance -759 ml 1033 ml -1250 ml 350 ml IV Total 1135 ml 325 ml 350 ml Tube Feeding 116 ml 133 ml 125 ml TPN/PPN 542 ml Lipid 73 ml Output Urine Total 425 ml 450 ml 700 ml Stool Total 450 ml 400 ml 1000 ml Result Diagram: 07/01/1739906/30/17399 Objective Remarks VS-S Rate controlled Gen: Pt comfortable Abd: Soft. Mild distention. Wound healed. Stoma now with appropriate bilious outputs. Apparently has decubitus with drainage and eschar Labs: Mostly improving. Alk Phos up and platelets down I&Os: OK Assessment and Plan Assessment and Plan Decubitus On CPAP all day Wean per CCM. Extubate soon Better wound care and positioning No antibiotics for decubitus. May need debridement Luca Geiger MD Jul 01, 2017 16:01
--- NOTE | 2017-07-01 18:01 | HHI.CCPN ---
Subjective Remarks/Hospital Course The patient is a 67-year-old male with past medical history of hypertension, metastatic colon cancer, tobacco abuse, who, about 3 weeks ago underwent low anterior resection with low colorectal anastomosis, diverting ileostomy, and resection of a segment of the left ureter with ureteral anastomosis and double- J stent placement. He presented yesterday with 5 day history of abdominal discomfort and increasing weakness. No history of high output from ileostomy. He was admitted to the colorectal surgery for dehydration and probable UTI. He was placed on ciprofloxacin and IV hydration. According to Dr. Geiger's note it was difficult dissection/resection colon mass because of the pelvic sidewall adherence and the adherence to the left ureter. A portion of ureter was resected due to possibility of tumor infiltration, and Dr. Augustine Pelayo re- anastomosed the ureter and placed left-sided double-J stent. Also 1 cm hepatic metastasis in his liver that was excised. Hospitalist consultation was requested for medical management and evaluation of tachycardia today. He was seen by Dr. Jay and was placed on infusion of Cardizem for heart rate 140s. Patient became hypotensive with systolic blood pressure early 90s. Lab work showed WBC 14.5 with 44% bands, creat increase from 1.2 to 1.4 and severely increased lactate at 8 from admission lactate of 2.6. CT of the abdomen pelvis done yesterday showed probable small bowel ileus. I evaluated the patient in the ICU. He is tachycardic in 140s, hypotensive and systolic blood pressure in mid 80s. Clinically appears very dehydrated, an NG tube was placed with approximately 3 L of some coffee-ground output. ABG shows a base excess of -10 and bicarbonate 12. I have ordered 4 liter normal saline boluses start 1 amp of bicarbonate, discontinued the LR infusion, and started bicarb gtt. Discontinue ciprofloxacin, started Zosyn every 6 hours, vancomycin 1 g 1. His elevated lactic acid and bandemia most likely secondary to severe sepsis, ileus, and severe dehydration. Serial lactate is ordered SUBJ 06/19: Lactic acid remains elevated at 6.6 despite getting 9 L of crystalloid boluses in last 24 hours. Tachycardia has improved heart rate in 110s. Remains on vasopressin at 0.04 units/min. Urine output almost 1200 mL overnight, OGT initial output was almost 3 L when placed yesterday a.m. Overnight had 550 mL of greenish brown fluid output. EGD pending today rule out gastric ischemia per Dr. Romero. Apparently Flex sig was negative post op in Dr. Geiger's office 06/20: Developed A. fib with RVR. Heart rate 200. Hemodynamically unstable, synchronized cardioversion attempted by Dr. Morales 100 200 J. Given 3 g mag sulfate and 80 mEq KCl 1, 0.5 digoxin 1 and started on amiodarone and Giorgio- Synephrine. Intubated due to hemodynamic instability. Currently remains sedated. Currently on Giorgio-Synephrine 80 mcg/m, and amiodarone. CT chest abdomen pelvis again confirms gastric and small bowel distention/ileus. UO 1800 ml in 24 hours 06/21: Remains critically ill, intubated sedated, on 100 mcg/min neosynpehrine. HR better controlled. NG output 1500, UO >1.4L. Am labs pending. Ileostomy sample positive for C Diff on PO vanc IV Flagyl. 06/22: Remains intubated sedated. Urine output 3000 mL with Bumex. NGT [address] Geiger did colonoscopy which was normal. Ileoscopy showed pseudomembranous colitis. Currently on 200 mcg/min of neosynephrine. Afib with RVR HR in 140's 06/23: Remains intubated sedated, remains in atrial fibrillation with RVR. Still requiring high doses of Giorgio-Synephrine at 190 mcg/min. UO 2.5L. chest x- ray showed bilateral large effusions. KUB shows improving small bowel distention. WBC count is slightly improved 06/24: Unable to control HR. Repeat shock x3 today. remains in atrial fibrillation with RVR rates 160-170 intermittently. Remains on amiodarone but will discontinued due to elevation of liver enzymes AST 546 ALT 158. (GI notified). Start Cardizem infusion and also give Surjit 0.5 mg 1. Platelet count continues to drop from 67 to today 45. Hematology following will start of Argatroban today. Creatinine has slightly increased to 1.3 to will DC Bumex infusion 06/25: Patient remains intubated sedated critically ill. Heart rate controlled for the first time since atrial fibrillation started. Heart rate remains 80- 90. Urine output 1200 mL in 24 hours but BUN/creatinine increasing 44/1.7. I will hydrate with 50 mL/hr normal saline for 24 hours. Transaminitis increasing AST 1300 ALT 386. Ultrasound of the liver unremarkable GI following 06/26: PTT elevated due to Argatorban/Liver failure. Dr. Hurley has DCd argatroban. SMILEY pending. Pl count is 21. Currently in sinus rhythm on Cardizem infusion. Not on any pressors. Creatinine improved to 1.2. Urine output adequate. Becomes very tachypneic on attempted CPAP. Discussed with Dr. Geiger Will Start Trickle Tube Feeds 06/27: no improvements. off pathway. thrombocytopenia persists. unable to wean from mechanical ventilation. neuro exam poor. will likely need trach. 06/28: platelets worse today. SMILEY not resulted yet. failing SBT and mental status poor. poor prognosis. will need trach and LTAC placement. 06/29: Tmax 101. Currently 99.6. Tolerating trickle tube feeds. Continues to fail spontaneous breathing trials. 06/30: Lasted 1 hour spontaneous breathing trial this AM. 2.5 hours this afternoon. Currently afebrile. Hemoglobin remained stable. Subjective 07/01: lasted 4 hours on SBT, except 15 of pressure support, so not ready clinically for extubation, and even after only 4 hours, tired out and became hypoxic and tachypneic. more awake today and following commands. will likely need tracheostomy. Objective Vital Signs Date Time Temp Pulse Resp B/P (MAP) Pulse Ox O2 Delivery O2 Flow Rate FiO2 07/01/17 16:46 98 40 07/01/17 16:00 116 07/01/17 16:00 100.0 24 103/60 (74) 110/54 (72) Intake and Output 07/01/17 07/01/17 07/02/17 08:00 16:00 00:00 Intake Total 350 ml 350 ml Output Total 1700 ml Balance -1350 ml 350 ml Result Diagram: 07/01/1739906/30/17399 Imaging Last Impressions Chest X-Ray 06/30/17599 Signed Impressions: Service Date/Time: June 03:02 - CONCLUSION: 1. Improving bibasilar densities. Sarwat Suarez MD Abdomen X-Ray 06/27/17599 Signed Impressions: Service Date/Time: Tuesday, June 27, 2017 04:29 - CONCLUSION: Stable abdomen. Sarwat Suarez MD Liver Ultrasound 06/24/17 Signed Impressions: Service Date/Time: Saturday, June 24, 2017 16:38 - CONCLUSION: 1. Small volume ascites. 2. Small right effusion. Pierce Ospina Jr., MD Upper Extremity Ultrasound 06/23/17 Signed Impressions: Service Date/Time: June 20:03 - CONCLUSION: Noncompressibility right cephalic vein and left basilic vein consistent with venous thrombosis Trav Hsieh MD Lower Extremity Ultrasound 06/23/17 Signed Impressions: Service Date/Time: , June 23, 2017 20:16 - CONCLUSION: Normal examination. No evidence DVT Trav Hsieh MD Chest CT 06/20/17 Signed Impressions: Service Date/Time: Tuesday, June 20, 2017 07:42 - CONCLUSION: 1. Bilateral effusions and consolidative changes in both lung bases. Bao Lora MD Abdomen/Pelvis CT 06/20/17 Signed Impressions: Service Date/Time: Tuesday, June 20, 2017 07:39 - CONCLUSION: 1. Dilated stomach and multiple dilated loops of small bowel, likely ileus. 2. No definite gastric volvulus. 3. Fat containing right inguinal hernia which also contains small portion of the urinary bladder and minimal fluid. 4. Left-sided nephroureteral stent in good position. 5. Bibasilar consolidation and small pleural effusions. Sarwat Suarez MD Objective Remarks GENERAL: 67-year-old male intubated sedated critically ill. SKIN: Warm and dry. HEENT: Extraocular muscles intact. NECK: The neck is supple. LIJ central line in place CHEST:Few coarse rhonchi Equal bilaterally. Becomes tachypneic on CPAP CVS: Tachycardia, IR. ABDOMEN: Abdomen is slightly distended, soft. Incision appears healing well. Ileostomy is functioning well. NGT in place EXTREMITIES: No pedal edema or cyanosis NEURO: Intubated. more awake, RASS -2/-3. Moves all extremities, following commands today. Date of Insertion: Jun 18, 2017 Side: Left Location: Internal A/P Assessment and Plan PLAN: NEURO: - Midazolam 2 mg an hour for sedation and vent synchrony - Goal of RASS -0 - Daily sedation vacation RESP: Acute hypoxemic respiratory failure - persistent. -Albuterol/ipratropium every 6 hours with albuterol aerosols every 2 hours. Dyspnea -Ventilator bundle - Attempt daily SBT, continues to fail due to severe tachypnea on pressure support is lasted 4 hours today, but on significant support. - Bilateral small pleural effusion on chest x-ray - will likely need tracheostomy. will discuss with tomorrow. CV: Atrial fibrillation with RVR - persistent. - Cardioverted several times without success and amiodarone started for A. fib with RVR - Amio DCd 06/24 due to Liver enzyme elevation.remains on Cardizem infusion and Digoxin. still back in afib with variable rate. very resistant afib and difficult to control. - IV Heparin discontinued due to Hit screen positive hematology consulted. Argatroban DCd 06/[address] Hurley SMILEY negative. - s/p Normal saline IV fluids 8L boluses on 06/18/17, No IVF now except TPN -Bumetanide DCd 06/24 due to increasing creatinine. NS 50 ml per hour for 24 hours 06/25-06/26. Creatinine improved to 1.2 - 2D Echo normal LV function GI: s/p Left colectomy with colorectal anastomosis, diverting ileostomy, wedge resection of liver metastasis C Diff enteritis/ileitis Transaminitis -Trickle feeds, TPN at 50 cc an hour with lipids daily. - Pantoprazole 40 mg IV twice a day - Transaminitis most likely secondary to amiodarone and TPN and hypotension, interval worsening AST 1300, ALT 386, today improved to 686/276 recheck in a.m. - Gastroenterology Dr. Saldana. EGD 06/19. Evidence of esophagitis, and erythematous gastritis in the gastric body and gastric antrum - C Diff positive from ileostomy sample indicating C Diff enteritis. On PO vanc and IV Flagyl - Dr. Geiger 06/22. Colonoscopy normal. Ileoscopy severe pseudomembranous ileitis - IV metoclopramide [address] abdomen pelvis and KUB shows small bowel ileus., KUB 06/23 improving ileus - Continue Alvimopan 12 mg every 12 hours for ileus : s/p Partial resection of the left ureter with anastomosis and placement of double-J stent - Monitor renal function closely. Han catheter. UO adequate ID: - ID Dr. Espinoza - PO Vancomycin and IV metronidazole for C diff enteritis - F/u blood and urine culture -negative to date HEME: Thrombocytopenia likely consumptive secondary to sepsis, hit screen positive SMILEY negative Normocytic anemia - Monitor CBC, CMP - HIT screen positive- consulted hematology - Argatroban started 06/24/17, DCd 06/26/[address] Hurley - According to Dr. Hurley elevated PTT secondary to decreased liver clearance of argatroban - back on Lovenox. ENDO: Hypophosphatemia - Electrolyte replacement per protocol -Sliding-scale insulin to maintain euglycemia 30 mmol K-Phos IV. No PROPH: -Bilateral lower extremity SCDs. Currently on enoxaparin DVT dose, IV pantoprazole 40 q12 LINES: - Left IJ central line, radial art line Critically ill stable. Multi organ involvement makes diagnosis still guarded. Needs placement and long-term vent wean. will need trach. Level II follow-up Michi Child MD Jul 01, 2017 18:01
[2017-07-01] MEDS: FAT EMULSION 20% INJ 250 ML (@10 mls/hr) IV-CENTRAL SCH (20:52)
[2017-07-01] MEDS: [UNRECOGNIZED DRUG - OTHER] IV-CENTRAL SCH ×10 (20:52)
[2017-07-01] MEDS: SODIUM CHLORIDE IV-CENTRAL SCH ×10 (20:52)
[2017-07-01] MEDS: SODIUM ACETATE IV-CENTRAL SCH ×10 (20:52)
[2017-07-02] VITALS (19 sets, daily range): BP systolic 102–158; BP diastolic 44–75; PULSE 94–123; RESP 18–28; TEMP 98.2–102.1; O2SAT 98–100
[2017-07-02] MEDS: metroNIDAZOLE 500 MG INJ 100 ML IV SCH ×3 (00:17→15:47)
[2017-07-02] MEDS: METOCLOPRAMIDE HCL 10 MG/2 ML VIAL IV PUSH SCH ×3 (00:17→15:48)
[2017-07-02] MEDS: ACETAMINOPHEN 650 MG/20.3 ML UDC PO PRN ×2 (00:17→11:49)
[2017-07-02] MEDS: INSULIN ASPART SUPPLEMENTAL SCALE SQ SCH ×6 (04:00→20:00)
[2017-07-02 05:38] LABS: HEMATOCRIT 24.1 % (39.0-51.0); MEAN CELL VOLUME 89.4 FL (80.0-100.0); MEAN CORPUSCULAR HEMOGLOBIN 28.2 PG (27.0-34.0); MEAN CORPUSCULAR HGB CONC 31.5 % (32.0-36.0); RED CELL DISTRIBUTION WIDTH 16.8 % (11.6-17.2); WHITE BLOOD COUNT 8.4 TH/MM3 (4.0-11.0)
[2017-07-02] MEDS: PANTOPRAZOLE SODIUM 40 MG VIAL IV PUSH SCH ×2 (05:55→17:53)
[2017-07-02 06:02] LABS: BICARBONATE 27.6 MEQ/L (21.0-32.0)
[2017-07-02 06:04] LABS: POTASSIUM 2.9 MEQ/L (3.5-5.1)
[2017-07-02 06:13] LABS: PLATELET COUNT 19 TH/MM3 (150-450); REVIEW FLAG AUTO DIFF
[2017-07-02 06:22] LABS: CALCIUM-PROTEIN CORRECTED 8.5 MG/DL (8.5-10.1)
[2017-07-02] MEDS: POTASSIUM CHLOR 40 MEQ PREMIX 100 ML IV PRN ×2 (06:40→09:47)
[2017-07-02] MEDS: ENOXAPARIN SODIUM 40 MG/0.4 ML SYRINGE SQ SCH (08:02)
[2017-07-02] MEDS: VANCOMYCIN 500 MG VIAL (FOR ORAL USE ONLY) NG SCH ×4 (08:03→20:51)
[2017-07-02] MEDS: DIGOXIN 0.5 MG/2 ML VIAL IV PUSH SCH (08:04)
[2017-07-02] MEDS: CHLORHEXIDINE 0.12% (ORAL KIT) 15 ML CUP MT SCH ×2 (08:05→20:52)
[2017-07-02] MEDS: IRR IRRIGATION SCH ×3 (08:33→17:53)
[2017-07-02] MEDS: VANCOMYCIN IRRIGATION SCH ×3 (08:33→17:53)
[2017-07-02] MEDS: SODIUM CHLORIDE 0.9% IRRIGATION SCH ×3 (08:33→17:53)
[2017-07-02] MEDS: RESP: ALBUTEROL 2.5 MG/IPRATROPIUM 0.5 MG NEB (SCH) NEB ×3 (10:00→19:56)
--- NOTE | 2017-07-02 10:52 | PD.ONC.PN ---
Subjective Subjective Remarks Tmax 102.1 overnight. Intubated patient. No bleeding events per nurse. Objective Data Date Time Temp Pulse Resp B/P (MAP) Pulse Ox O2 Delivery O2 Flow Rate FiO2 07/02/17 10:42 100 40 07/02/17 10:41 40 07/02/17 08:00 40 07/02/17 08:00 100 07/02/17 08:00 99.6 105 28 121/71 (88) 100 158/75 (102) 07/02/17 06:00 97 07/02/17 04:34 98 40 07/02/17 04:00 99.0 94 24 103/57 (72) 100 102/44 (63) 07/02/17 04:00 40 07/02/17 04:00 94 07/02/17 02:00 101 07/02/17 00:36 99 40 07/02/17 00:00 107 07/02/17 00:00 40 07/02/17 00:00 102.1 107 28 105/52 (69) 99 116/52 (73) 07/01/17 22:00 137 07/01/17 20:54 106 113/55 07/01/17 20:15 98 40 07/01/17 20:00 106 07/01/17 20:00 100.0 106 22 113/55 (74) 99 96/43 (60) 07/01/17 20:00 40 07/01/17 18:14 115 110/56 07/01/17 18:00 116 07/01/17 16:46 98 40 07/01/17 16:00 40 07/01/17 16:00 116 07/01/17 16:00 100.0 110 24 103/60 (74) 100 110/54 (72) 07/01/17 14:00 104 07/01/17 12:00 99.6 103 21 95/54 (68) 87 121/53 (75) 07/01/17 12:00 40 07/01/17 12:00 103 07/02/17 07/02/17 07/02/17 07:00 15:00 23:00 Intake Total 227 ml Output Total 1300 ml Balance -1073 ml Result Diagram: 07/02/17 0500 07/02/17 0500 Laboratory Results Laboratory Tests Test 07/02/17 05:00 White Blood Count 8.4 TH/MM3 Red Blood Count 2.70 MIL/MM3 Hemoglobin 7.6 GM/DL Hematocrit 24.1 % Mean Corpuscular Volume 89.4 FL Mean Corpuscular Hemoglobin 28.2 PG Mean Corpuscular Hemoglobin Concent 31.5 % Red Cell Distribution Width 16.8 % Platelet Count 19 TH/MM3 Mean Platelet Volume 10.1 FL Blood Urea Nitrogen 23 MG/DL Creatinine 0.85 MG/DL Random Glucose 109 MG/DL Total Protein 5.0 GM/DL Calcium Level 7.3 MG/DL Sodium Level 148 MEQ/L Potassium Level 2.9 MEQ/L Chloride Level 113 MEQ/L Carbon Dioxide Level 27.6 MEQ/L Anion Gap 7 MEQ/L Estimat Glomerular Filtration Rate 90 ML/MIN Protein Corrected Calcium 8.5 MG/DL Administered Medications Medications (Trade) Dose Ordered Sig/[place] Route PRN Reason Start Time Stop Time Status Last Admin Dose Admin Acetaminophen/ Hydrocodone Bitart ([place] 5-325 Mg) 1 tab Q4H PRN PO PAIN SCALE 1 TO 5 06/17/17 22:00 06/17/17 22:02 Acetaminophen/ Hydrocodone Bitart ([place] 5-325 Mg) 2 tab Q4H PRN PO PAIN SCALE 6 TO 10 06/17/17 22:00 06/21/17 20:40 Ondansetron HCl (Zofran Inj) 4 mg Q4H PRN IV PUSH NAUSEA/VOMITING 06/17/17 22:00 06/18/17 09:45 Miscellaneous Information Patient in critical care unit? Ass... [id number] .XX 06/18/17 05:45 06/18/17 05:45 Metoclopramide HCl (Reglan Inj) 5 mg Q8H IV PUSH 06/18/17 17:00 07/02/17 08:05 Potassium Chloride 100 ml @ 50 mls/hr Q2H PRN IV For Potassium 2.8 - 3.2 mEq/L 06/19/17 07:45 07/02/17 09:47 Potassium Chloride 100 ml @ 50 mls/hr Q2H PRN IV For Potassium 3.3 - 3.5 mEq/L 06/19/17 07:45 06/22/17 17:22 Sodium Phosphate 30 mmol/Sodium Chloride 250 ml @ 42 mls/hr UNSCH PRN IV For Phosphorus < 2.5 mg/dL 06/19/17 07:45 07/01/17 06:24 Fat Emulsion Intravenous 250 ml @ 10 mls/hr Q24H IV-CENTRAL 06/19/17 20:00 07/01/17 20:52 Insulin Aspart (NovoLOG SUPPLEMENTAL SCALE) 1 Q4HR SQ 06/19/17 12:00 06/21/17 20:34 Sodium Chloride 40 meq/Sodium Acetate 59 meq/ Potassium Chloride 40 meq/ Sodium Phosphate 40 meq/Magnesium Chloride 10 meq/ Calcium Chloride 9 meq/ Multivitamins 10 ml/Folic Acid 1 mg/Insulin Human Regular 40 units/ Amino Acids/ Dextrose 2,091.7937 ml @ 50 mls/hr Q24H IV-CENTRAL 06/19/17 20:00 07/01/17 20:52 Vancomycin HCl (VANCOMYCIN for oral use only) 500 mg QID NG 06/19/17 18:00 07/02/17 08:03 Chlorhexidine Gluconate (Peridex 0.12% Liq) 15 ml BID@08,20 MT 06/20/17 08:00 07/02/17 08:05 Metronidazole 100 ml @ 100 mls/hr Q8H IV 06/20/17 09:00 07/02/17 08:03 Acetaminophen (Tylenol 650 Mg/ 20 ml Liq) 650 mg Q6H PRN PO fever>100.5 06/20/17 16:30 07/02/17 00:17 Pantoprazole Sodium (Protonix Inj) 40 mg Q12H IV PUSH 06/21/17 07:00 07/02/17 05:55 Vancomycin HCl 250 mg/Sodium Chloride 102.5 ml @ 0 mls/hr TID IRRIGATION 06/23/17 13:00 07/02/17 08:33 Midazolam HCl 100 ml @ 2 mls/hr TITRATE PRN IV SEDATION 06/23/17 16:15 07/01/17 04:30 Diltiazem HCl 125 mg/Sodium Chloride 125 ml @ 5 mls/hr TITRATE PRN IV Tachycardia 06/24/17 15:00 07/01/17 20:54 Digoxin (Lanoxin Inj) 0.125 mg DAILY IV PUSH 06/25/17 13:30 07/01/17 08:35 Acetaminophen (Tylenol) 650 mg Q4H PRN PO SEE LABEL COMMENTS 06/28/17 08:15 06/28/17 11:42 Diphenhydramine HCl (Benadryl) 25 mg Q4H PRN PO SEE LABEL COMMENTS 06/28/17 08:15 06/28/17 11:42 Enoxaparin Sodium (Lovenox Inj) 40 mg Q24H SQ 06/29/17 08:00 07/02/17 08:02 Albuterol/ Ipratropium (Duoneb Neb) 1 ampule Q6HR NEB NEB 06/29/17 16:00 07/02/17 10:00 Objective Remarks GENERAL: Intubated male supine in bed. SKIN: Warm and dry. no bleeding from lines. HEAD: Normocephalic. EYES: No scleral icterus. No injection or drainage. NECK: Supple, trachea midline. CARDIOVASCULAR: +S1/S2 RESPIRATORY: anterior pacheco clear. on mechanical ventilation. GASTROINTESTINAL: Abdomen soft, nondistended. EXTREMITIES: No cyanosis NEUROLOGICAL: intubated Assessment/Plan Assessment Mr. Armendariz is a 67-year-old male who was recently diagnosed with metastatic adenocarcinoma of the rectosigmoid colon and had resection of a metastatic deposit to the liver. He is status post primary surgical resection (3-4 weeks ago) as well as wedge resection of a metastatic deposit to the liver and now has C difficile colitis. He has thrombocytopenia with thrombosis to the cephalic and brachial veins. Admitted to colorectal surgery service initially for weakness/abdominal pain. Then 06/18 became tachy and hypotensive. had elevated lactic acid and bandemia. sepsis suspected. Tube Turner was consulted. on 06/20 was intubated d /t hemodynamic instability. platelets also started falling on 06/20. 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 Continue Lovenox 40 mg subcutaneous daily. The thrombocytopenia most likely secondary to sepsis and a consumptive coagulopathy due to his C. difficile associated severe sepsis. 07/02: platelets 19K today. monitor. no transfusion. 2. Progressive anemia: Likely secondary to critical illness, sepsis, blood draws and possible bleeding though no overt bleeding has been appreciated to the ostomy site. He seems to have minimal hematuria from the Han catheter. 07/02: no bleeding. hgb 7.6 today. will check LDH/haptoglobin, bilirubin, but doubt hemolysis. will order 1 unit pRBC today. 3. Metastatic colon carcinoma: Await recovery before addressing this. Disposition: Overall the patient appears to be recovering well. I'm encouraged by him being more awake and alert today and initiation of CPAP trials. For management of his anemia I would recommend transfusing to maintain hemoglobin over 8 g/dL. His platelet counts are declining, he may require additional platelet transfusion. Continue prophylactic anticoagulation with Lovenox for the time being. As his condition improves and his platelet counts and hemoglobin stabilized I will gradually titrate up the dosing of Lovenox for anticoagulation for management of his upper extremity venous thrombosis. Attending Statement The exam, history, and the medical decision-making described in the above note were completed with the assistance of the mid-level provider. I reviewed and agree with the findings presented. I attest that I had a [id number] encounter with the patient on the same day, and personally performed and documented my assessment and findings in the medical record. On vent. No evidence of bleeding. Platelet down to 19K. Check DIC panel again. Transfuse PRBC 1 U. Hemolysis w/u pending. Continue supportive care. Kait Blackmon Jul 02, 2017 10:52 Owen Brooke MD Jul 02, 2017 14:36
[2017-07-02] MEDS ORDERED: SODIUM CHLOR 0.9% 250 ML INJ 250 ML IV ONE (11:00)
[2017-07-02 12:17] LABS: INDIRECT BILIRUBIN 0.6 MG/DL (0.0-0.8); TOTAL BILIRUBIN ADULT 2.9 MG/DL (0.2-1.0)
--- NOTE | 2017-07-02 13:19 | HHI.PR ---
Subjective Remarks C diff enteritis intubated, seems comfortable Objective Vital Signs Date Time Temp Pulse Resp B/P (MAP) Pulse Ox O2 Delivery O2 Flow Rate FiO2 07/02/17 10:42 100 40 07/02/17 10:41 40 07/02/17 10:00 122 07/02/17 08:00 40 07/02/17 08:00 100 07/02/17 08:00 99.6 105 28 121/71 (88) 100 158/75 (102) 07/02/17 06:00 97 07/02/17 04:34 98 40 07/02/17 04:00 99.0 94 24 103/57 (72) 100 102/44 (63) 07/02/17 04:00 40 07/02/17 04:00 94 07/02/17 02:00 101 07/02/17 00:36 99 40 07/02/17 00:00 107 07/02/17 00:00 40 07/02/17 00:00 102.1 107 28 105/52 (69) 99 116/52 (73) 07/01/17 22:00 137 07/01/17 20:54 106 113/55 07/01/17 20:15 98 40 07/01/17 20:00 106 07/01/17 20:00 100.0 106 22 113/55 (74) 99 96/43 (60) 07/01/17 20:00 40 07/01/17 18:14 115 110/56 07/01/17 18:00 116 07/01/17 16:46 98 40 07/01/17 16:00 40 07/01/17 16:00 116 07/01/17 16:00 100.0 110 24 103/60 (74) 100 110/54 (72) 07/01/17 14:00 104 I/O 07/01/17 07/01/17 07/01/17 07/02/17 07/02/17 07/02/17 07:00 15:00 23:00 07:00 15:00 23:00 Intake Total 450 ml 350 ml 2595.5 ml 227 ml Output Total 1700 ml 1525 ml 1300 ml Balance -1250 ml 350 ml 1070.5 ml -1073 ml IV Total 325 ml 350 ml 2025.5 ml 100 ml Tube Feeding 125 ml 127 ml Tube Irrigant 450 ml Other 120 ml Output Urine Total 700 ml 600 ml 600 ml Stool Total 1000 ml 925 ml 700 ml Result Diagram: 07/02/17 0500 07/02/17 0500 Objective Remarks Abdomen soft, nondistended wound healed Stoma pink, prolapsed, output thin Assessment and Plan Assessment and Plan ileo output less than 1000 doing well on breathing trials, but still tires out HR up, on cardizem Karin Umana MD Jul 02, 2017 13:19
--- NOTE | 2017-07-02 13:35 | HHI.IDPN ---
Note Infectious Disease Note Patient on CPAP. Temp spike to 102. Admitted to the hospital with weakness, abdominal pain and nausea. The patient is status post anterior resection of colon and rectal areas and anastomosis along with a diverting ileostomy and also resection of a segment of left ureter with ureteral anastomosis and double-J stent placement three weeks prior. PAST MEDICAL HISTORY: 1. Hypertension. 2. Left knee surgery. 3. Metastatic colon cancer status post resection and coloanal anastomosis and also resection and re-anastomosis of the left ureter with double-J stent placement. ALLERGIES: 1. CODEINE. MEDICATIONS: 1. Metronidazole. 2. PO Vancomycin. 3. Vanco irrigation. SOCIAL HISTORY: . Positive tobacco use. No alcohol. No illicit drug use. OBJECTIVE: Vital Signs Date Time Temp Pulse Resp B/P (MAP) Pulse Ox O2 Delivery O2 Flow Rate FiO2 07/02/17 10:42 100 40 07/02/17 10:41 40 07/02/17 10:00 122 07/02/17 08:00 40 07/02/17 08:00 100 07/02/17 08:00 99.6 105 28 121/71 (88) 100 158/75 (102) 07/02/17 06:00 97 07/02/17 04:34 98 40 07/02/17 04:00 99.0 94 24 103/57 (72) 100 102/44 (63) 07/02/17 04:00 40 07/02/17 04:00 94 07/02/17 02:00 101 07/02/17 00:36 99 40 07/02/17 00:00 107 07/02/17 00:00 40 07/02/17 00:00 102.1 107 28 105/52 (69) 99 116/52 (73) 07/01/17 22:00 137 07/01/17 20:54 106 113/55 07/01/17 20:15 98 40 07/01/17 20:00 106 07/01/17 20:00 100.0 106 22 113/55 (74) 99 96/43 (60) 07/01/17 20:00 40 07/01/17 18:14 115 110/56 07/01/17 18:00 116 07/01/17 16:46 98 40 07/01/17 16:00 40 07/01/17 16:00 116 07/01/17 16:00 100.0 110 24 103/60 (74) 100 110/54 (72) 07/01/17 14:00 104 Laboratory Tests Test 07/01/17 04:00 07/02/17 05:00 07/02/17 11:44 White Blood Count 10.5 TH/MM3 8.4 TH/MM3 Red Blood Count 2.74 MIL/MM3 2.70 MIL/MM3 Hemoglobin 7.6 GM/DL 7.6 GM/DL Hematocrit 24.0 % 24.1 % Mean Corpuscular Volume 87.8 FL 89.4 FL Mean Corpuscular Hemoglobin 27.7 PG 28.2 PG Mean Corpuscular Hemoglobin Concent 31.5 % 31.5 % Red Cell Distribution Width 16.4 % 16.8 % Platelet Count 22 TH/MM3 19 TH/MM3 Mean Platelet Volume 11.3 FL 10.1 FL Haptoglobin 190 MG/DL Laboratory Tests Test 07/01/17 04:00 07/02/17 05:00 07/02/17 11:44 Phosphorus Level 1.7 MG/DL Magnesium Level 2.2 MG/DL Total Bilirubin 2.7 MG/DL 2.9 MG/DL Direct Bilirubin 2.1 MG/DL 2.3 MG/DL Indirect Bilirubin 0.6 MG/DL 0.6 MG/DL Aspartate Amino Transf (AST/SGOT) 120 U/L Alanine Aminotransferase (ALT/SGPT) 89 U/L Alkaline Phosphatase 558 U/L Ammonia LESS THAN 10 MCMOL/L Total Protein 5.0 GM/DL 5.0 GM/DL Albumin 1.6 GM/DL Amylase Level 112 U/L Lipase 608 U/L Blood Urea Nitrogen 23 MG/DL Creatinine 0.85 MG/DL Random Glucose 109 MG/DL Calcium Level 7.3 MG/DL Sodium Level 148 MEQ/L Potassium Level 2.9 MEQ/L Chloride Level 113 MEQ/L Carbon Dioxide Level 27.6 MEQ/L Anion Gap 7 MEQ/L Estimat Glomerular Filtration Rate 90 ML/MIN Protein Corrected Calcium 8.5 MG/DL Lactate Dehydrogenase 457 U/L IMAGING: Chest X-Ray 07/01/17 0600 Signed Impressions: Service Date/Time: Saturday, July 01, 2017 04:04 - CONCLUSION: Worsening basilar consolidation and pleural effusions, left more so than right. Lines and tubes as above. Luca Rollins MD Chest X-Ray 06/30/17599 Signed Impressions: Service Date/Time: June 03:02 - CONCLUSION: 1. Improving bibasilar densities. Sarwat Suarez MD Chest X-Ray 06/27/17599 Signed Impressions: Service Date/Time: Tuesday, June 27, 2017 04:23 - CONCLUSION: 1. Stable chest. 2. Bilateral patchy opacities and probable small pleural effusions. Sarwat Suarez MD Abdomen X-Ray 06/27/17599 Signed Impressions: Service Date/Time: Tuesday, June 27, 2017 04:29 - CONCLUSION: Stable abdomen. Sarwat Suarez MD Liver Ultrasound 06/24/17 Signed Impressions: Service Date/Time: Saturday, June 24, 2017 16:38 - CONCLUSION: 1. Small volume ascites. 2. Small right effusion. Pierce Ospina Jr., MD Upper Extremity Ultrasound 06/23/17 Signed Impressions: Service Date/Time: June 20:03 - CONCLUSION: Noncompressibility right cephalic vein and left basilic vein consistent with venous thrombosis Trav Hsieh MD Lower Extremity Ultrasound 06/23/17 Signed Impressions: Service Date/Time: June 20:16 - CONCLUSION: Normal examination. No evidence DVT Trav Hsieh MD Chest CT 06/20/17 Signed Impressions: Service Date/Time: Tuesday, June 20, 2017 07:42 - CONCLUSION: 1. Bilateral effusions and consolidative changes in both lung bases. Bao Lora MD Abdomen/Pelvis CT 06/20/17 Signed Impressions: Service Date/Time: Tuesday, June 20, 2017 07:39 - CONCLUSION: 1. Dilated stomach and multiple dilated loops of small bowel, likely ileus. 2. No definite gastric volvulus. 3. Fat containing right inguinal hernia which also contains small portion of the urinary bladder and minimal fluid. 4. Left-sided nephroureteral stent in good position. 5. Bibasilar consolidation and small pleural effusions. Sarwat Suarez MD PHYSICAL EXAMINATION: GENERAL: No acute distress. HEAD, EYES, EARS, NOSE, THROAT: No icterus. Oropharynx with dry mucosa. NECK: Supple. LUNGS: coarse breath sounds. HEART: Regular S1-S2 without murmurs, rubs or gallops. ABDOMEN: Positive bowel sounds. Soft. Not tender. EXTREMITIES: No clubbing or cyanosis or edema. SKIN: No rash. NEUROLOGIC: Nonfocal. IMPRESSION: 1. Severe sepsis/ Bandemia.Status post recent surgery for rectal cancer and recent ureteral resection and double J ureteral stent. 2. C difficile colitis. Pseudomembranous enteritis/sepsis. 3. Acute respiratory failure. 4. Abnormal CXR - probable atelectasis. 5. Leukocytosis. Improved. 6. Elevated LFT's. improving. 7. fever. ? etiology. RECOMMENDATIONS: 1. Continue Flagyl IV. 2. Continue PO Vancomycin. 3. Blood and urine and sputum culture. 4. Monitor the temps. El Espinoza MD Jul 02, 2017 13:35
[2017-07-02] MEDS ORDERED: MIDAZOLAM HCL 5 MG/ML VIAL (1 ML) ONE (14:13)
[2017-07-02] MEDS: DILTIAZEM INJ 125 MG in SODIUM CHLORIDE 0.9% INJ 100 ML IV PRN (15:57)
--- NOTE | 2017-07-02 16:57 | HHI.CCPN ---
Subjective Remarks/Hospital Course The patient is a 67-year-old male with past medical history of hypertension, metastatic colon cancer, tobacco abuse, who, about 3 weeks ago underwent low anterior resection with low colorectal anastomosis, diverting ileostomy, and resection of a segment of the left ureter with ureteral anastomosis and double- J stent placement. He presented yesterday with 5 day history of abdominal discomfort and increasing weakness. No history of high output from ileostomy. He was admitted to the colorectal surgery for dehydration and probable UTI. He was placed on ciprofloxacin and IV hydration. According to Dr. Geiger's note it was difficult dissection/resection colon mass because of the pelvic sidewall adherence and the adherence to the left ureter. A portion of ureter was resected due to possibility of tumor infiltration, and Dr. Augustine Pelayo re- anastomosed the ureter and placed left-sided double-J stent. Also 1 cm hepatic metastasis in his liver that was excised. Hospitalist consultation was requested for medical management and evaluation of tachycardia today. He was seen by Dr. Jay and was placed on infusion of Cardizem for heart rate 140s. Patient became hypotensive with systolic blood pressure early 90s. Lab work showed WBC 14.5 with 44% bands, creat increase from 1.2 to 1.4 and severely increased lactate at 8 from admission lactate of 2.6. CT of the abdomen pelvis done yesterday showed probable small bowel ileus. I evaluated the patient in the ICU. He is tachycardic in 140s, hypotensive and systolic blood pressure in mid 80s. Clinically appears very dehydrated, an NG tube was placed with approximately 3 L of some coffee-ground output. ABG shows a base excess of -10 and bicarbonate 12. I have ordered 4 liter normal saline boluses start 1 amp of bicarbonate, discontinued the LR infusion, and started bicarb gtt. Discontinue ciprofloxacin, started Zosyn every 6 hours, vancomycin 1 g 1. His elevated lactic acid and bandemia most likely secondary to severe sepsis, ileus, and severe dehydration. Serial lactate is ordered SUBJ 06/19: Lactic acid remains elevated at 6.6 despite getting 9 L of crystalloid boluses in last 24 hours. Tachycardia has improved heart rate in 110s. Remains on vasopressin at 0.04 units/min. Urine output almost 1200 mL overnight, OGT initial output was almost 3 L when placed yesterday a.m. Overnight had 550 mL of greenish brown fluid output. EGD pending today rule out gastric ischemia per Dr. Romero. Apparently Flex sig was negative post op in Dr. Geiger's office 06/20: Developed A. fib with RVR. Heart rate 200. Hemodynamically unstable, synchronized cardioversion attempted by Dr. Morales 100 200 J. Given 3 g mag sulfate and 80 mEq KCl 1, 0.5 digoxin 1 and started on amiodarone and Giorgio- Synephrine. Intubated due to hemodynamic instability. Currently remains sedated. Currently on Giorgio-Synephrine 80 mcg/m, and amiodarone. CT chest abdomen pelvis again confirms gastric and small bowel distention/ileus. UO 1800 ml in 24 hours 06/21: Remains critically ill, intubated sedated, on 100 mcg/min neosynpehrine. HR better controlled. NG output 1500, UO >1.4L. Am labs pending. Ileostomy sample positive for C Diff on PO vanc IV Flagyl. 06/22: Remains intubated sedated. Urine output 3000 mL with Bumex. NGT [address] Geiger did colonoscopy which was normal. Ileoscopy showed pseudomembranous colitis. Currently on 200 mcg/min of neosynephrine. Afib with RVR HR in 140's 06/23: Remains intubated sedated, remains in atrial fibrillation with RVR. Still requiring high doses of Giorgio-Synephrine at 190 mcg/min. UO 2.5L. chest x- ray showed bilateral large effusions. KUB shows improving small bowel distention. WBC count is slightly improved 06/24: Unable to control HR. Repeat shock x3 today. remains in atrial fibrillation with RVR rates 160-170 intermittently. Remains on amiodarone but will discontinued due to elevation of liver enzymes AST 546 ALT 158. (GI notified). Start Cardizem infusion and also give Surjit 0.5 mg 1. Platelet count continues to drop from 67 to today 45. Hematology following will start of Argatroban today. Creatinine has slightly increased to 1.3 to will DC Bumex infusion 06/25: Patient remains intubated sedated critically ill. Heart rate controlled for the first time since atrial fibrillation started. Heart rate remains 80- 90. Urine output 1200 mL in 24 hours but BUN/creatinine increasing 44/1.7. I will hydrate with 50 mL/hr normal saline for 24 hours. Transaminitis increasing AST 1300 ALT 386. Ultrasound of the liver unremarkable GI following 06/26: PTT elevated due to Argatorban/Liver failure. Dr. Hurley has DCd argatroban. SMILEY pending. Pl count is 21. Currently in sinus rhythm on Cardizem infusion. Not on any pressors. Creatinine improved to 1.2. Urine output adequate. Becomes very tachypneic on attempted CPAP. Discussed with Dr. Geiger Will Start Trickle Tube Feeds 06/27: no improvements. off pathway. thrombocytopenia persists. unable to wean from mechanical ventilation. neuro exam poor. will likely need trach. 06/28: platelets worse today. SMILEY not resulted yet. failing SBT and mental status poor. poor prognosis. will need trach and LTAC placement. 06/29: Tmax 101. Currently 99.6. Tolerating trickle tube feeds. Continues to fail spontaneous breathing trials. 06/30: Lasted 1 hour spontaneous breathing trial this AM. 2.5 hours this afternoon. Currently afebrile. Hemoglobin remained stable. 07/01: lasted 4 hours on SBT, except 15 of pressure support, so not ready clinically for extubation, and even after only 4 hours, tired out and became hypoxic and tachypneic. more awake today and following commands. will likely need tracheostomy. Subjective 07/02: new fever today, but wbc normal. per ID, will culture and observe, continue flagyl/PO vanc. otherwise no changes. no improvements. Objective Vital Signs Date Time Temp Pulse Resp B/P (MAP) Pulse Ox O2 Delivery O2 Flow Rate FiO2 07/02/17 16:15 99 40 07/02/17 16:00 100.7 104 18 108/58 (75) 107/58 (74) Intake and Output 07/02/17 07/02/17 07/03/17 08:00 16:00 00:00 Intake Total 227 ml 210 ml Output Total 1300 ml Balance -1073 ml 210 ml Result Diagram: 07/02/17 0500 07/02/17 0500 Imaging Last Impressions Chest X-Ray 06/30/17 0600 Signed Impressions: Service Date/Time: June 03:02 - CONCLUSION: 1. Improving bibasilar densities. Sarwat Suarez MD Abdomen X-Ray 06/27/17 0600 Signed Impressions: Service Date/Time: Tuesday, June 27, 2017 04:29 - CONCLUSION: Stable abdomen. Sarwat Suarez MD Liver Ultrasound 06/24/17 0000 Signed Impressions: Service Date/Time: Saturday, June 24, 2017 16:38 - CONCLUSION: 1. Small volume ascites. 2. Small right effusion. Pierce Ospina Jr., MD Upper Extremity Ultrasound 06/23/17 0000 Signed Impressions: Service Date/Time: June 20:03 - CONCLUSION: Noncompressibility right cephalic vein and left basilic vein consistent with venous thrombosis Trav Hsieh MD Lower Extremity Ultrasound 06/23/17 0000 Signed Impressions: Service Date/Time: June 20:16 - CONCLUSION: Normal examination. No evidence DVT Trav Hsieh MD Chest CT 06/20/17 Signed Impressions: Service Date/Time: Tuesday, June 20, 2017 07:42 - CONCLUSION: 1. Bilateral effusions and consolidative changes in both lung bases. Bao Lora MD Abdomen/Pelvis CT 06/20/17 Signed Impressions: Service Date/Time: Tuesday, June 20, 2017 07:39 - CONCLUSION: 1. Dilated stomach and multiple dilated loops of small bowel, likely ileus. 2. No definite gastric volvulus. 3. Fat containing right inguinal hernia which also contains small portion of the urinary bladder and minimal fluid. 4. Left-sided nephroureteral stent in good position. 5. Bibasilar consolidation and small pleural effusions. Sarwat Suarez MD Objective Remarks GENERAL: 67-year-old male intubated sedated critically ill. SKIN: Warm and dry. HEENT: Extraocular muscles intact. NECK: The neck is supple. LIJ central line in place CHEST:Few coarse rhonchi Equal bilaterally. Becomes tachypneic on CPAP CVS: Tachycardia, IR. ABDOMEN: Abdomen is slightly distended, soft. Incision appears healing well. Ileostomy is functioning well. NGT in place EXTREMITIES: No pedal edema or cyanosis NEURO: Intubated. more awake, RASS -2/-3. Moves all extremities, following commands today. Date of Insertion: Jun 18, 2017 Side: Left Location: Internal A/P Assessment and Plan PLAN: NEURO: - Midazolam 2 mg an hour for sedation and vent synchrony - Goal of RASS -0 - Daily sedation vacation RESP: Acute hypoxemic respiratory failure - persistent. -Albuterol/ipratropium every 6 hours with albuterol aerosols every 2 hours. Dyspnea -Ventilator bundle - Attempt daily SBT, continues to fail due to severe tachypnea on pressure support is lasted 4 hours today, but on significant support. - Bilateral small pleural effusion on chest x-ray - will likely need tracheostomy. will consult general surgery. CV: Atrial fibrillation with RVR - persistent. - Cardioverted several times without success and amiodarone started for A. fib with RVR - Amio DCd 06/24 due to Liver enzyme elevation.remains on Cardizem infusion and Digoxin. still back in afib with variable rate. very resistant afib and difficult to control. - IV Heparin discontinued due to Hit screen positive hematology consulted. Argatroban DCd 06/[address] Hurley SMILEY negative. - s/p Normal saline IV fluids 8L boluses on 06/18/17, No IVF now except TPN -Bumetanide DCd 06/24 due to increasing creatinine. NS 50 ml per hour for 24 hours 06/25-06/26. Creatinine improved to 1.2 - 2D Echo normal LV function GI: s/p Left colectomy with colorectal anastomosis, diverting ileostomy, wedge resection of liver metastasis C Diff enteritis/ileitis Transaminitis -Trickle feeds, TPN at 50 cc an hour with lipids daily. - Pantoprazole 40 mg IV twice a day - Transaminitis most likely secondary to amiodarone and TPN and hypotension, interval worsening AST 1300, ALT 386, today improved to 686/276 recheck in a.m. - Gastroenterology Dr. Saldana. EGD 06/19. Evidence of esophagitis, and erythematous gastritis in the gastric body and gastric antrum - C Diff positive from ileostomy sample indicating C Diff enteritis. On PO vanc and IV Flagyl - Dr. Geiger 06/22. Colonoscopy normal. Ileoscopy severe pseudomembranous ileitis - IV metoclopramide [address] abdomen pelvis and KUB shows small bowel ileus., KUB 06/23 improving ileus - Continue Alvimopan 12 mg every 12 hours for ileus : s/p Partial resection of the left ureter with anastomosis and placement of double-J stent - Monitor renal function closely. Han catheter. UO adequate ID: - ID Dr. Espinoza - PO Vancomycin and IV metronidazole for C diff enteritis - F/u blood and urine culture -negative to date HEME: Thrombocytopenia likely consumptive secondary to sepsis, hit screen positive SMILEY negative Normocytic anemia - Monitor CBC, CMP - HIT screen positive- consulted hematology - Argatroban started 06/24/17, DCd 06/26/[address] Hurley - According to Dr. Hurley elevated PTT secondary to decreased liver clearance of argatroban - back on Lovenox. ENDO: Hypophosphatemia - Electrolyte replacement per protocol -Sliding-scale insulin to maintain euglycemia 30 mmol K-Phos IV. No PROPH: -Bilateral lower extremity SCDs. Currently on enoxaparin DVT dose, IV pantoprazole 40 q12 LINES: - Left IJ central line, radial art line Critically ill stable. Multi organ involvement makes diagnosis still guarded. Needs placement and long-term vent wean. will need trach. Level II follow-up Michi Child MD Jul 02, 2017 16:57
[2017-07-02 17:10] LABS: APTT (PATIENT) 39.7 SEC (24.3-30.1); INTERNATIONAL NORMALIZED RATIO 1.2 RATIO; PROTHROMBIN TIME - PATIENT 13.6 SEC (9.8-11.6)
[2017-07-02 17:13] LABS: BACTERIA, URINE RARE /hpf; BLOOD, URINE LARGE (NEG); GLUCOSE,URINE TRACE mg/dL (NEG); KETONE, URINE NEG (NEG); MUCUS URINE FEW /lpf (OCC); NITRITE,URINE POS (NEG); PH, URINE 5.5 (5.0-8.5); SQUAMOUS EPITHELIAL CELL URINE <1 /hpf (0-5)
[2017-07-02 17:15] LABS: COMMENT (UR) CATH-CULTURE IND; CULTURE IF INDICATED CATH CULTURE IND; URINE COLOR DARK-YELLOW (YELLW/STRAW)
[2017-07-02] MEDS: MIDAZOLAM 100 MG/100 ML INJ 100 ML IV PRN (20:50)
[2017-07-02] MEDS: [UNRECOGNIZED DRUG - OTHER] IV-CENTRAL SCH ×10 (20:51)
[2017-07-02] MEDS: SODIUM ACETATE IV-CENTRAL SCH ×10 (20:51)
[2017-07-02] MEDS: SODIUM CHLORIDE IV-CENTRAL SCH ×10 (20:51)
[2017-07-02] MEDS: FAT EMULSION 20% INJ 250 ML (@10 mls/hr) IV-CENTRAL SCH (20:51)
--- NOTE | 2017-07-02 22:28 | PD.CAR.PN ---
CVT Progress Note Subjective/Hospital Course: Consult received For tracheostomy Tuesday Thanks J Objective: Vital Signs Date Time Temp Pulse Resp B/P (MAP) Pulse Ox O2 Delivery O2 Flow Rate FiO2 07/02/17 22:00 100 07/02/17 20:00 100 07/02/17 20:00 40 07/02/17 20:00 98.2 100 20 113/59 (77) 98 127/64 (85) 07/02/17 19:51 98 40 07/02/17 18:00 109 07/02/17 16:15 99 40 07/02/17 16:00 100.7 104 18 108/58 (75) 98 107/58 (74) 07/02/17 16:00 40 07/02/17 16:00 104 07/02/17 15:57 106 113/58 07/02/17 14:10 100.6 120 25 119/60 98 07/02/17 14:00 119 07/02/17 13:53 101.5 122 24 123/64 98 07/02/17 12:00 40 07/02/17 12:00 121 07/02/17 12:00 101.5 123 18 128/61 (83) 99 133/71 (91) 07/02/17 10:42 100 40 07/02/17 10:41 40 07/02/17 10:00 122 07/02/17 08:00 40 07/02/17 08:00 100 07/02/17 08:00 99.6 105 28 121/71 (88) 100 158/75 (102) 07/02/17 06:00 97 07/02/17 04:34 98 40 07/02/17 04:00 99.0 94 24 103/57 (72) 100 102/44 (63) 07/02/17 04:00 40 07/02/17 04:00 94 07/02/17 02:00 101 07/02/17 00:36 99 40 07/02/17 00:00 107 07/02/17 00:00 40 07/02/17 00:00 102.1 107 28 105/52 (69) 99 116/52 (73) Labs: Laboratory Tests Test 07/02/17 11:44 07/02/17 15:45 Haptoglobin 190 MG/DL (30-200) Total Bilirubin 2.9 MG/DL (0.2-1.0) Direct Bilirubin 2.3 MG/DL (0.0-0.2) Indirect Bilirubin 0.6 MG/DL (0.0-0.8) Lactate Dehydrogenase 457 U/L (87-241) Prothrombin Time 13.6 SEC (9.8-11.6) Prothromb Time International Ratio 1.2 RATIO Activated Partial Thromboplast Time 39.7 SEC (24.3-30.1) Fibrinogen 402 mg/dL (227-377) Urine Color DARK-YELLOW (YELLW/STRAW) Urine Turbidity HAZY (CLEAR) Urine pH 5.5 (5.0-8.5) Urine Specific [place] 1.022 (1.002-1.035) Urine Protein 100 mg/dL (NEG-TRACE) Urine Glucose (UA) TRACE mg/dL (NEG) Urine Ketones NEG mg/dL (NEG) Urine Occult Blood LARGE (NEG) Urine Nitrite POS (NEG) Urine Bilirubin MOD (NEG) Urine Urobilinogen LESS THAN 2.0 MG/DL (LESS Urine Leukocyte Esterase LARGE (NEG) Urine RBC 71 /hpf (0-3) Urine WBC 181 /hpf (0-5) Urine WBC Clumps MANY (NONE) Urine Squamous Epithelial Cells <1 /hpf (0-5) Urine Bacteria RARE /hpf (NONE) Urine Mucus FEW /lpf (OCC) Microscopic Urinalysis Comment CATH-CULTURE IND Result Diagram: 07/02/17 0500 07/02/17 0500 (1) Atrial fibrillation Plan: New onset of atrial fibrillation in the setting of sepsis, C. Diff colitis and CA with mets. Difficult to control despite several cardioversion, meaning the infection likely in driving the afib. Agree with Cardizem ip. Amio off given elevated LFT's. Echo- Normal left ventricular systolic function with an estimated ejection fraction in the range of 50-55%, no wall motion abnormalities. Recommendations: 1. Continue supportive management for sepsis Will be available on a PRN basis for any questions or concerns. (2) Leukocytosis (3) Tachycardia (4) UTI (urinary tract infection) (5) Hypertension (6) Acute kidney injury (7) Sepsis (8) Cancer of rectum (9) Ileostomy in place Problem Qualifiers (1) Atrial fibrillation: Qualified Codes: I48.1 - Persistent atrial fibrillation Christiane Buchanan MD Jul 02, 2017 22:28
[2017-07-03] VITALS (18 sets, daily range): BP systolic 97–130; BP diastolic 55–66; PULSE 85–104; RESP 16–25; TEMP 98–100.9; O2SAT 96–100
[2017-07-03] MEDS: METOCLOPRAMIDE HCL 10 MG/2 ML VIAL IV PUSH SCH ×3 (00:32→18:17)
[2017-07-03] MEDS: INSULIN ASPART SUPPLEMENTAL SCALE SQ SCH ×6 (00:32→20:00)
[2017-07-03] MEDS: metroNIDAZOLE 500 MG INJ 100 ML IV SCH ×3 (00:32→18:17)
[2017-07-03] MEDS: RESP: ALBUTEROL 2.5 MG/IPRATROPIUM 0.5 MG NEB (SCH) NEB ×3 (04:18→15:33)
[2017-07-03] MEDS: MIDAZOLAM 100 MG/100 ML INJ 100 ML IV PRN (04:50)
[2017-07-03 04:53] LABS: BICARBONATE 27.9 MEQ/L (21.0-32.0); POTASSIUM 3.7 MEQ/L (3.5-5.1)
[2017-07-03] MEDS: DILTIAZEM INJ 125 MG in SODIUM CHLORIDE 0.9% INJ 100 ML IV PRN (05:19)
[2017-07-03] MEDS: PANTOPRAZOLE SODIUM 40 MG VIAL IV PUSH SCH ×2 (05:19→18:18)
[2017-07-03] MEDS: [UNRECOGNIZED DRUG - OTHER] IV-CENTRAL SCH ×20 (05:19→20:09)
[2017-07-03] MEDS: SODIUM ACETATE IV-CENTRAL SCH ×20 (05:19→20:09)
[2017-07-03] MEDS: SODIUM CHLORIDE IV-CENTRAL SCH ×20 (05:19→20:09)
[2017-07-03 05:52] LABS: CALCIUM-PROTEIN CORRECTED 8.2 MG/DL (8.5-10.1)
[2017-07-03 06:51] LABS: AUTOMATED NEUTROPHIL # 6.4 TH/MM3 (1.8-7.7); BASOPHIL # 0.2 TH/MM3 (0-0.2); BASOPHIL % 2.3 % (0.0-2.0); EOSINOPHIL # 0.1 TH/MM3 (0-0.4); HEMATOCRIT 28.7 % (39.0-51.0); LYMPH % 7.5 % (9.0-44.0); LYMPHOCYTE # 0.6 TH/MM3 (1.0-4.8); MEAN CELL VOLUME 90.2 FL (80.0-100.0); MEAN CORPUSCULAR HEMOGLOBIN 29.5 PG (27.0-34.0); MEAN CORPUSCULAR HGB CONC 32.7 % (32.0-36.0); MONO % 12.1 % (0.0-8.0); NEUT % 77.1 % (16.0-70.0); RED BLOOD COUNT 3.18 MIL/MM3 (4.50-5.90); RED CELL DISTRIBUTION WIDTH 16.5 % (11.6-17.2); WHITE BLOOD COUNT 8.3 TH/MM3 (4.0-11.0)
[2017-07-03] MEDS ORDERED: ALTEPLASE RECOMBINANT 2 MG VIAL IV FLUSH ONE (07:00)
[2017-07-03 07:10] LABS: HEMO FLAGS AUTO DIFF; PLATELET COUNT 16 TH/MM3 (150-450)
[2017-07-03 07:20] LABS: APTT (PATIENT) 34.8 SEC (24.3-30.1); INTERNATIONAL NORMALIZED RATIO 1.1 RATIO; PROTHROMBIN TIME - PATIENT 12.6 SEC (9.8-11.6)
[2017-07-03] MEDS: ENOXAPARIN SODIUM 40 MG/0.4 ML SYRINGE SQ SCH (08:00)
[2017-07-03] MEDS: VANCOMYCIN 500 MG VIAL (FOR ORAL USE ONLY) NG SCH ×4 (09:00→20:05)
[2017-07-03] MEDS: VANCOMYCIN IRRIGATION SCH ×3 (09:11→18:18)
[2017-07-03] MEDS: IRR IRRIGATION SCH ×3 (09:11→18:18)
[2017-07-03] MEDS: SODIUM CHLORIDE 0.9% IRRIGATION SCH ×3 (09:11→18:18)
[2017-07-03] MEDS: DIGOXIN 0.5 MG/2 ML VIAL IV PUSH SCH (09:12)
[2017-07-03] MEDS: CHLORHEXIDINE 0.12% (ORAL KIT) 15 ML CUP MT SCH ×2 (09:14→20:05)
[2017-07-03] MEDS: fentaNYL 2,500 MCG/NS 250 ML IV PRN (09:15)
[2017-07-03 09:47] LABS: BANDS 12 % (0-6); BASOPHILS 2 % (0-2); CORRECTED NUCLEATED RBC 20 /100 WBC (0-0); METAMYELOCYTES 3 % (0-1); NEUTROPHIL # MANUAL DIFF 7.2 TH/MM3 (1.8-7.7); PLATELET ESTIMATE SMEAR RARE (NORMAL); PLATELET MORPHOLOGY ENLARGED (NORMAL); POLYS (SEG NEUTROPHILS) 72 % (16-70); SCAN/DIFF FINAL DIFF MANUAL; TOXIC VACUOLATION PRESENT (NONE SEEN); WBC DIFF SAMPLE 100
--- NOTE | 2017-07-03 10:41 | HHI.IDPN ---
Note Infectious Disease Note Patient on CPAP. Temp elevated. Sputum culture has gram neg sabrina. Urine culture pending. Admitted to the hospital with weakness, abdominal pain and nausea. The patient is status post anterior resection of colon and rectal areas and anastomosis along with a diverting ileostomy and also resection of a segment of left ureter with ureteral anastomosis and double-J stent placement three weeks prior. PAST MEDICAL HISTORY: 1. Hypertension. 2. Left knee surgery. 3. Metastatic colon cancer status post resection and coloanal anastomosis and also resection and re-anastomosis of the left ureter with double-J stent placement. ALLERGIES: 1. CODEINE. MEDICATIONS: 1. Metronidazole. 2. PO Vancomycin. 3. Vanco irrigation. SOCIAL HISTORY: . Positive tobacco use. No alcohol. No illicit drug use. OBJECTIVE: Vital Signs Date Time Temp Pulse Resp B/P (MAP) Pulse Ox O2 Delivery O2 Flow Rate FiO2 07/03/17 07:55 40 07/03/17 07:55 99 40 07/03/17 06:00 95 07/03/17 05:19 93 117/63 07/03/17 04:18 100 40 07/03/17 04:00 40 07/03/17 04:00 98.1 85 17 118/56 (76) 100 120/61 (80) 07/03/17 04:00 85 07/03/17 02:00 87 07/03/17 00:13 99 40 07/03/17 00:00 40 07/03/17 00:00 98.0 91 16 107/56 (73) 99 109/55 (73) 07/03/17 00:00 91 07/02/17 22:00 100 07/02/17 20:00 100 07/02/17 20:00 40 07/02/17 20:00 98.2 100 20 113/59 (77) 98 127/64 (85) 07/02/17 19:51 98 40 07/02/17 18:00 109 07/02/17 16:15 99 40 07/02/17 16:00 100.7 104 18 108/58 (75) 98 107/58 (74) 07/02/17 16:00 40 07/02/17 16:00 104 07/02/17 15:57 106 113/58 07/02/17 14:10 100.6 120 25 119/60 98 07/02/17 14:00 119 07/02/17 13:53 101.5 122 24 123/64 98 07/02/17 12:00 40 07/02/17 12:00 121 07/02/17 12:00 101.5 123 18 128/61 (83) 99 133/71 (91) 07/02/17 10:42 100 40 07/02/17 10:41 40 Laboratory Tests Test 07/02/17 05:00 07/02/17 11:44 07/03/17 06:00 White Blood Count 8.4 TH/MM3 8.3 TH/MM3 Red Blood Count 2.70 MIL/MM3 3.18 MIL/MM3 Hemoglobin 7.6 GM/DL 9.4 GM/DL Hematocrit 24.1 % 28.7 % Mean Corpuscular Volume 89.4 FL 90.2 FL Mean Corpuscular Hemoglobin 28.2 PG 29.5 PG Mean Corpuscular Hemoglobin Concent 31.5 % 32.7 % Red Cell Distribution Width 16.8 % 16.5 % Platelet Count 19 TH/MM3 16 TH/MM3 Mean Platelet Volume 10.1 FL 10.2 FL Haptoglobin 190 MG/DL Neutrophils (%) (Auto) 77.1 % Lymphocytes (%) (Auto) 7.5 % Monocytes (%) (Auto) 12.1 % Eosinophils (%) (Auto) 1.0 % Basophils (%) (Auto) 2.3 % Neutrophils # (Auto) 6.4 TH/MM3 Lymphocytes # (Auto) 0.6 TH/MM3 Monocytes # (Auto) 1.0 TH/MM3 Eosinophils # (Auto) 0.1 TH/MM3 Basophils # (Auto) 0.2 TH/MM3 CBC Comment AUTO DIFF Differential Total Cells Counted 100 Neutrophils % (Manual) 72 % Band Neutrophils % 12 % Lymphocytes % 1 % Monocytes % 10 % Basophils % 2 % Neutrophils # (Manual) 7.2 TH/MM3 Metamyelocytes 3 % Nucleated Red Blood Cells 20 /100 WBC Differential Comment FINAL DIFF MANUAL Toxic Vacuolation PRESENT Platelet Estimate RARE Platelet Morphology Comment ENLARGED Polychromasia 2.0 % Laboratory Tests Test 07/02/17 05:00 07/02/17 11:44 07/03/17 04:00 Blood Urea Nitrogen 23 MG/DL 23 MG/DL Creatinine 0.85 MG/DL 0.79 MG/DL Random Glucose 109 MG/DL 149 MG/DL Total Protein 5.0 GM/DL 5.2 GM/DL Calcium Level 7.3 MG/DL 7.2 MG/DL Sodium Level 148 MEQ/L 148 MEQ/L Potassium Level 2.9 MEQ/L 3.7 MEQ/L Chloride Level 113 MEQ/L 115 MEQ/L Carbon Dioxide Level 27.6 MEQ/L 27.9 MEQ/L Anion Gap 7 MEQ/L 5 MEQ/L Estimat Glomerular Filtration Rate 90 ML/MIN 98 ML/MIN Protein Corrected Calcium 8.5 MG/DL 8.2 MG/DL Total Bilirubin 2.9 MG/DL Direct Bilirubin 2.3 MG/DL Indirect Bilirubin 0.6 MG/DL Lactate Dehydrogenase 457 U/L 411 U/L Microbiology Date/Time Source Procedure Growth Status 07/02/17 18:54 Blood Peripheral Aerobic Blood Culture Pending Received 07/02/17 18:54 Blood Peripheral Anaerobic Blood Culture Pending Received 07/02/17 18:49 Blood Peripheral Aerobic Blood Culture Pending Received 07/02/17 18:49 Blood Peripheral Anaerobic Blood Culture Pending Received 07/02/17 17:00 Sputum Endotracheal Gram Stain - Final Resulted 07/02/17 17:00 Sputum Endotracheal Sputum Culture Pending Resulted 07/02/17 15:45 Urine Clean Catch Urine Culture Pending Received IMAGING: Chest X-Ray 07/01/17 06 Signed Impressions: Service Date/Time: Saturday, July 01, 2017 04:04 - CONCLUSION: Worsening basilar consolidation and pleural effusions, left more so than right. Lines and tubes as above. Luca Rollins MD Chest X-Ray 06/30/17 06 Signed Impressions: Service Date/Time: June 03:02 - CONCLUSION: 1. Improving bibasilar densities. Sarwat Suarez MD Chest X-Ray 06/27/17 06 Signed Impressions: Service Date/Time: Tuesday, June 27, 2017 04:23 - CONCLUSION: 1. Stable chest. 2. Bilateral patchy opacities and probable small pleural effusions. Sarwat Suarez MD Abdomen X-Ray 06/27/17 06 Signed Impressions: Service Date/Time: Tuesday, June 27, 2017 04:29 - CONCLUSION: Stable abdomen. Sarwat Suarez MD Liver Ultrasound 06/24/17 0000 Signed Impressions: Service Date/Time: Saturday, June 24, 2017 16:38 - CONCLUSION: 1. Small volume ascites. 2. Small right effusion. Pierce Ospina Jr., MD Upper Extremity Ultrasound 06/23/17 Signed Impressions: Service Date/Time: June 20:03 - CONCLUSION: Noncompressibility right cephalic vein and left basilic vein consistent with venous thrombosis Trav Hsieh MD Lower Extremity Ultrasound 06/23/17 Signed Impressions: Service Date/Time: June 20:16 - CONCLUSION: Normal examination. No evidence DVT Trav Hsieh MD Chest CT 06/20/17 Signed Impressions: Service Date/Time: Tuesday, June 20, 2017 07:42 - CONCLUSION: 1. Bilateral effusions and consolidative changes in both lung bases. Bao Lora MD Abdomen/Pelvis CT 06/20/17 Signed Impressions: Service Date/Time: Tuesday, June 20, 2017 07:39 - CONCLUSION: 1. Dilated stomach and multiple dilated loops of small bowel, likely ileus. 2. No definite gastric volvulus. 3. Fat containing right inguinal hernia which also contains small portion of the urinary bladder and minimal fluid. 4. Left-sided nephroureteral stent in good position. 5. Bibasilar consolidation and small pleural effusions. Sarwat Suarez MD PHYSICAL EXAMINATION: GENERAL: No acute distress. HEAD, EYES, EARS, NOSE, THROAT: No icterus. Oropharynx with dry mucosa. NECK: Supple. LUNGS: Coarse breath sounds. HEART: Regular S1-S2 without murmurs, rubs or gallops. ABDOMEN: Positive bowel sounds. Soft. Not tender. EXTREMITIES: No clubbing or cyanosis or edema. SKIN: No rash. NEUROLOGIC: Nonfocal. IMPRESSION: 1. Severe sepsis/ Bandemia.Status post recent surgery for rectal cancer and recent ureteral resection and double J ureteral stent. 2. C difficile colitis. Pseudomembranous enteritis/sepsis. 3. Acute respiratory failure. 4. Abnormal CXR - probable atelectasis. 5. Leukocytosis. Improved. 6. Elevated LFT's. improving. 7. fever. ? etiology. PNA vs UTI. RECOMMENDATIONS: 1. Continue Flagyl IV. 2. Continue PO Vancomycin. 3. Add Cefepime. 4 Follow Blood and urine and sputum culture. 5. Monitor the temps. Dontfraid,El F MD Jul 03, 2017 10:40
[2017-07-03] MEDS: CEFEPIME INJ 1,000 MG in SODIUM CHLORIDE 0.9% INJ 100 ML IV SCH ×2 (12:23→18:18)
--- NOTE | 2017-07-03 12:32 | HHI.PR ---
Subjective Remarks C diff enteritis intubated, sedated this am Objective Vital Signs Date Time Temp Pulse Resp B/P (MAP) Pulse Ox O2 Delivery O2 Flow Rate FiO2 07/03/17 12:00 99.7 99 22 107/58 (74) 98 101/57 (72) 07/03/17 11:53 96 40 07/03/17 10:00 96 07/03/17 08:00 40 07/03/17 08:00 98.6 95 22 122/59 (80) 100 130/66 (87) 07/03/17 08:00 95 07/03/17 07:55 40 07/03/17 07:55 99 40 07/03/17 06:00 95 07/03/17 05:19 93 117/63 07/03/17 04:18 100 40 07/03/17 04:00 40 07/03/17 04:00 98.1 85 17 118/56 (76) 100 120/61 (80) 07/03/17 04:00 85 07/03/17 02:00 87 07/03/17 00:13 99 40 07/03/17 00:00 40 07/03/17 00:00 98.0 91 16 107/56 (73) 99 109/55 (73) 07/03/17 00:00 91 07/02/17 22:00 100 07/02/17 20:00 100 07/02/17 20:00 40 07/02/17 20:00 98.2 100 20 113/59 (77) 98 127/64 (85) 07/02/17 19:51 98 40 07/02/17 18:00 109 07/02/17 16:15 99 40 07/02/17 16:00 100.7 104 18 108/58 (75) 98 107/58 (74) 07/02/17 16:00 40 07/02/17 16:00 104 07/02/17 15:57 106 113/58 07/02/17 14:10 100.6 120 25 119/60 98 07/02/17 14:00 119 07/02/17 13:53 101.5 122 24 123/64 98 I/O 07/02/17 07/02/17 07/02/17 07/03/17 07/03/17 07/03/17 07:00 15:00 23:00 07:00 15:00 23:00 Intake Total 227 ml 210 ml 2722.7 ml 471 ml 145 ml Output Total 1300 ml 1500 ml 1250 ml Balance -1073 ml 210 ml 1222.7 ml -779 ml 145 ml IV Total 100 ml 200 ml 1715.7 ml 100 ml 145 ml Tube Feeding 127 ml 172 ml 171 ml Packed Cells 400 ml Blood Product IV Normal Saline Flush 10 ml 375 ml Other 60 ml 200 ml Output Urine Total 600 ml 600 ml 650 ml Stool Total 700 ml 900 ml 600 ml Result Diagram: 07/03/17 0600 07/03/17 0400 Objective Remarks Abdomen soft, nondistended wound healed Stoma pink, prolapsed, output thin Assessment and Plan Assessment and Plan ileo output reasonable required large amount of sedation overnight, weaning from Versed to Fentanyl now Increased coughing, 2 temp spikes - check CXR Karin Adams MD Jul 03, 2017 12:32
--- NOTE | 2017-07-03 13:35 | RADRPT ---
EXAM DATE/TIME: 07/03/2017 12:15 [place] COMPARISON: CHEST SINGLE AP, July 01, 2017, 4:04. INDICATIONS : Fever. MEDICAL HISTORY : Hypertension. Hypercholesterolemia. SURGICAL HISTORY : None. ENCOUNTER: Subsequent ACUITY: 2 weeks PAIN SCORE: Non-responsive. LOCATION: Bilateral chest FINDINGS: A single AP semierect view of the chest was obtained and again demonstrates endotracheal tube with th e tip approximately 3-4 cm above the antolin. The nasogastric tube remains in place and is seen coursi ng through the esophagus into the stomach. A left internal jugular central venous line remains in harsh ce. Hazy opacity remains in the perihilar regions and both lung bases with blunting of the costophren ic angles. The heart size remains within normal limits. There are multiple overlying electrocardiogra m leads and oxygen tubing. CONCLUSION: No significant change. Norman Mitchell MD on July 03, 2017 at 13:32 Board Certified Radiologist. This report was verified electronically.
[2017-07-03] MEDS: ACETAMINOPHEN 650 MG/20.3 ML UDC PO PRN (16:30)
--- NOTE | 2017-07-03 16:44 | HHI.CCPN ---
Subjective Remarks/Hospital Course The patient is a 67-year-old male with past medical history of hypertension, metastatic colon cancer, tobacco abuse, who, about 3 weeks ago underwent low anterior resection with low colorectal anastomosis, diverting ileostomy, and resection of a segment of the left ureter with ureteral anastomosis and double- J stent placement. He presented yesterday with 5 day history of abdominal discomfort and increasing weakness. No history of high output from ileostomy. He was admitted to the colorectal surgery for dehydration and probable UTI. He was placed on ciprofloxacin and IV hydration. According to Dr. Geiger's note it was difficult dissection/resection colon mass because of the pelvic sidewall adherence and the adherence to the left ureter. A portion of ureter was resected due to possibility of tumor infiltration, and Dr. Augustine Pelayo re- anastomosed the ureter and placed left-sided double-J stent. Also 1 cm hepatic metastasis in his liver that was excised. Hospitalist consultation was requested for medical management and evaluation of tachycardia today. He was seen by Dr. Jay and was placed on infusion of Cardizem for heart rate 140s. Patient became hypotensive with systolic blood pressure early 90s. Lab work showed WBC 14.5 with 44% bands, creat increase from 1.2 to 1.4 and severely increased lactate at 8 from admission lactate of 2.6. CT of the abdomen pelvis done yesterday showed probable small bowel ileus. I evaluated the patient in the ICU. He is tachycardic in 140s, hypotensive and systolic blood pressure in mid 80s. Clinically appears very dehydrated, an NG tube was placed with approximately 3 L of some coffee-ground output. ABG shows a base excess of -10 and bicarbonate 12. I have ordered 4 liter normal saline boluses start 1 amp of bicarbonate, discontinued the LR infusion, and started bicarb gtt. Discontinue ciprofloxacin, started Zosyn every 6 hours, vancomycin 1 g 1. His elevated lactic acid and bandemia most likely secondary to severe sepsis, ileus, and severe dehydration. Serial lactate is ordered SUBJ 06/19: Lactic acid remains elevated at 6.6 despite getting 9 L of crystalloid boluses in last 24 hours. Tachycardia has improved heart rate in 110s. Remains on vasopressin at 0.04 units/min. Urine output almost 1200 mL overnight, OGT initial output was almost 3 L when placed yesterday a.m. Overnight had 550 mL of greenish brown fluid output. EGD pending today rule out gastric ischemia per Dr. Romero. Apparently Flex sig was negative post op in Dr. Geiger's office 06/20: Developed A. fib with RVR. Heart rate 200. Hemodynamically unstable, synchronized cardioversion attempted by Dr. Morales 100 200 J. Given 3 g mag sulfate and 80 mEq KCl 1, 0.5 digoxin 1 and started on amiodarone and Giorgio- Synephrine. Intubated due to hemodynamic instability. Currently remains sedated. Currently on Giorgio-Synephrine 80 mcg/m, and amiodarone. CT chest abdomen pelvis again confirms gastric and small bowel distention/ileus. UO 1800 ml in 24 hours 06/21: Remains critically ill, intubated sedated, on 100 mcg/min neosynpehrine. HR better controlled. NG output 1500, UO >1.4L. Am labs pending. Ileostomy sample positive for C Diff on PO vanc IV Flagyl. 06/22: Remains intubated sedated. Urine output 3000 mL with Bumex. NGT [address] Geiger did colonoscopy which was normal. Ileoscopy showed pseudomembranous colitis. Currently on 200 mcg/min of neosynephrine. Afib with RVR HR in 140's 06/23: Remains intubated sedated, remains in atrial fibrillation with RVR. Still requiring high doses of Giorgio-Synephrine at 190 mcg/min. UO 2.5L. chest x- ray showed bilateral large effusions. KUB shows improving small bowel distention. WBC count is slightly improved 06/24: Unable to control HR. Repeat shock x3 today. remains in atrial fibrillation with RVR rates 160-170 intermittently. Remains on amiodarone but will discontinued due to elevation of liver enzymes AST 546 ALT 158. (GI notified). Start Cardizem infusion and also give Surjit 0.5 mg 1. Platelet count continues to drop from 67 to today 45. Hematology following will start of Argatroban today. Creatinine has slightly increased to 1.3 to will DC Bumex infusion 06/25: Patient remains intubated sedated critically ill. Heart rate controlled for the first time since atrial fibrillation started. Heart rate remains 80- 90. Urine output 1200 mL in 24 hours but BUN/creatinine increasing 44/1.7. I will hydrate with 50 mL/hr normal saline for 24 hours. Transaminitis increasing AST 1300 ALT 386. Ultrasound of the liver unremarkable GI following 06/26: PTT elevated due to Argatorban/Liver failure. Dr. Hurley has DCd argatroban. SMILEY pending. Pl count is 21. Currently in sinus rhythm on Cardizem infusion. Not on any pressors. Creatinine improved to 1.2. Urine output adequate. Becomes very tachypneic on attempted CPAP. Discussed with Dr. Geiger Will Start Trickle Tube Feeds 06/27: no improvements. off pathway. thrombocytopenia persists. unable to wean from mechanical ventilation. neuro exam poor. will likely need trach. 06/28: platelets worse today. SMILEY not resulted yet. failing SBT and mental status poor. poor prognosis. will need trach and LTAC placement. 06/29: Tmax 101. Currently 99.6. Tolerating trickle tube feeds. Continues to fail spontaneous breathing trials. 06/30: Lasted 1 hour spontaneous breathing trial this AM. 2.5 hours this afternoon. Currently afebrile. Hemoglobin remained stable. 07/01: lasted 4 hours on SBT, except 15 of pressure support, so not ready clinically for extubation, and even after only 4 hours, tired out and became hypoxic and tachypneic. more awake today and following commands. will likely need tracheostomy. 07/02: new fever today, but wbc normal. per ID, will culture and observe, continue flagyl/PO vanc. otherwise no changes. no improvements. Subjective 07/03: pseudomonas in sputum and urine. increase in cough and secretions. ID following and added cefepime. still weak and failing SBTs for hypoxia and tachypnea. needs tracheostomy. will need long-term rehab and likely LTAC. Objective Vital Signs Date Time Temp Pulse Resp B/P (MAP) Pulse Ox O2 Delivery O2 Flow Rate FiO2 07/03/17 16:00 104 07/03/17 16:00 100.9 25 104/55 (71) 98 109/58 (75) 07/03/17 15:34 40 Intake and Output 07/03/17 07/03/17 07/04/17 08:00 16:00 00:00 Intake Total 471 ml 145 ml Output Total 1250 ml Balance -779 ml 145 ml Result Diagram: 07/03/17 0607/03/17 0400 Imaging Last Impressions Chest X-Ray 06/30/17599 Signed Impressions: Service Date/Time: June 03:02 - CONCLUSION: 1. Improving bibasilar densities. Sarwat Suarez MD Abdomen X-Ray 06/27/17599 Signed Impressions: Service Date/Time: Tuesday, June 27, 2017 04:29 - CONCLUSION: Stable abdomen. Sarwat Suarez MD Liver Ultrasound 06/24/17 Signed Impressions: Service Date/Time: Saturday, June 24, 2017 16:38 - CONCLUSION: 1. Small volume ascites. 2. Small right effusion. Pierce Ospina Jr., MD Upper Extremity Ultrasound 06/23/17 Signed Impressions: Service Date/Time: June 20:03 - CONCLUSION: Noncompressibility right cephalic vein and left basilic vein consistent with venous thrombosis Trav Hsieh MD Lower Extremity Ultrasound 06/23/17 Signed Impressions: Service Date/Time: June 20:16 - CONCLUSION: Normal examination. No evidence DVT Trav Hsieh MD Chest CT 06/20/17 Signed Impressions: Service Date/Time: Tuesday, June 20, 2017 07:42 - CONCLUSION: 1. Bilateral effusions and consolidative changes in both lung bases. Bao Lora MD Abdomen/Pelvis CT 06/20/17 Signed Impressions: Service Date/Time: Tuesday, June 20, 2017 07:39 - CONCLUSION: 1. Dilated stomach and multiple dilated loops of small bowel, likely ileus. 2. No definite gastric volvulus. 3. Fat containing right inguinal hernia which also contains small portion of the urinary bladder and minimal fluid. 4. Left-sided nephroureteral stent in good position. 5. Bibasilar consolidation and small pleural effusions. Sarwat Suarez MD Objective Remarks GENERAL: 67-year-old male intubated sedated critically ill. SKIN: Warm and dry. HEENT: Extraocular muscles intact. NECK: The neck is supple. LIJ central line in place CHEST:Few coarse rhonchi Equal bilaterally. Becomes tachypneic on CPAP CVS: Tachycardia, IR. ABDOMEN: Abdomen is slightly distended, soft. Incision appears healing well. Ileostomy is functioning well. NGT in place EXTREMITIES: No pedal edema or cyanosis NEURO: Intubated. more awake, RASS -2/-3. Moves all extremities, following commands today. Date of Insertion: Jun 18, 2017 Side: Left Location: Internal A/P Assessment and Plan PLAN: NEURO: - Midazolam for sedation and vent synchrony - Goal of RASS -0 - Daily sedation vacation RESP: Acute hypoxemic respiratory failure - persistent. HCAP Pseudomonas Pneumonia -Albuterol/ipratropium every 6 hours with albuterol aerosols every 2 hours. Dyspnea -Ventilator bundle - Attempt daily SBT, continues to fail due to severe tachypnea on pressure support is lasted 4 hours today, but on significant support. - Bilateral small pleural effusion on chest x-ray - will likely need tracheostomy. general surgery consulted, plan for Tuesday. CV: Atrial fibrillation with RVR - persistent. - Cardioverted several times without success and amiodarone started for A. fib with RVR - Amio DCd 06/24 due to Liver enzyme elevation.remains on Cardizem infusion and Digoxin. still back in afib with variable rate. very resistant afib and difficult to control. - IV Heparin discontinued due to Hit screen positive hematology consulted. Argatroban DCd 06/[address] Hurley SMILEY negative. - s/p Normal saline IV fluids 8L boluses on 06/18/17, No IVF now except TPN -Bumetanide DCd 06/24 due to increasing creatinine. NS 50 ml per hour for 24 hours 06/25-06/26. Creatinine improved to 1.2 - 2D Echo normal LV function GI: s/p Left colectomy with colorectal anastomosis, diverting ileostomy, wedge resection of liver metastasis C Diff enteritis/ileitis Transaminitis Hypernatremia -Trickle feeds, TPN at 50 cc an hour with lipids daily. will add low-dose free water iv for hypernatremia. - Pantoprazole 40 mg IV twice a day - Transaminitis most likely secondary to amiodarone and TPN and hypotension, interval worsening AST 1300, ALT 386, today improved to 686/276 recheck in a.m. - Gastroenterology Dr. Saldana. EGD 06/19. Evidence of esophagitis, and erythematous gastritis in the gastric body and gastric antrum - C Diff positive from ileostomy sample indicating C Diff enteritis. On PO vanc and IV Flagyl - Dr. Geiger 06/22. Colonoscopy normal. Ileoscopy severe pseudomembranous ileitis - IV metoclopramide [address] abdomen pelvis and KUB shows small bowel ileus., KUB 06/23 improving ileus - Continue Alvimopan 12 mg every 12 hours for ileus : s/p Partial resection of the left ureter with anastomosis and placement of double-J stent - Monitor renal function closely. Han catheter. UO adequate ID: - ID Dr. Espinoza - PO Vancomycin and IV metronidazole for C diff enteritis - F/u blood and urine culture -negative to date HEME: Thrombocytopenia likely consumptive secondary to sepsis, hit screen positive SMILEY negative Normocytic anemia - Monitor CBC, CMP - HIT screen positive- consulted hematology - Argatroban started 06/24/17, DCd 06/26/[address] Hurley - According to Dr. Hurley elevated PTT secondary to decreased liver clearance of argatroban - back on Lovenox. ENDO: Hypophosphatemia - Electrolyte replacement per protocol -Sliding-scale insulin to maintain euglycemia 30 mmol K-Phos IV. No PROPH: -Bilateral lower extremity SCDs. Currently on enoxaparin DVT dose, IV pantoprazole 40 q12 LINES: - Left IJ central line, radial art line Critically ill stable. Multi organ involvement makes diagnosis still guarded. Needs placement and long-term vent wean. will need trach. Michi Child MD Jul 03, 2017 16:44
[2017-07-03] MEDS ORDERED: DEXTROSE 5% IN WATE 1000ML INJ 1,000 ML IV SCH (17:00)
[2017-07-03] MEDS: FAT EMULSION 20% INJ 250 ML (@10 mls/hr) IV-CENTRAL SCH (20:05)
[2017-07-04] VITALS (17 sets, daily range): BP systolic 97–128; BP diastolic 50–70; PULSE 72–108; RESP 22–27; TEMP 97.9–99.8; O2SAT 97–100
[2017-07-04] MEDS: METOCLOPRAMIDE HCL 10 MG/2 ML VIAL IV PUSH SCH ×3 (00:59→16:27)
[2017-07-04] MEDS: metroNIDAZOLE 500 MG INJ 100 ML IV SCH ×3 (00:59→16:27)
[2017-07-04] MEDS: CEFEPIME INJ 1,000 MG in SODIUM CHLORIDE 0.9% INJ 100 ML IV SCH ×3 (03:46→18:01)
[2017-07-04] MEDS: MIDAZOLAM 100 MG/100 ML INJ 100 ML IV PRN (03:46)
[2017-07-04] MEDS: INSULIN ASPART SUPPLEMENTAL SCALE SQ SCH ×6 (03:47→20:00)
[2017-07-04] MEDS: DILTIAZEM INJ 125 MG in SODIUM CHLORIDE 0.9% INJ 100 ML IV PRN (05:03)
[2017-07-04] MEDS: PANTOPRAZOLE SODIUM 40 MG VIAL IV PUSH SCH ×2 (05:04→18:01)
[2017-07-04 06:05] LABS: AUTOMATED NEUTROPHIL # 5.9 TH/MM3 (1.8-7.7); BASOPHIL # 0.3 TH/MM3 (0-0.2); BASOPHIL % 3.8 % (0.0-2.0); EOSINOPHIL # 0.1 TH/MM3 (0-0.4); EOSINOPHIL % 1.7 % (0.0-4.0); HEMATOCRIT 29.6 % (39.0-51.0); LYMPH % 7.5 % (9.0-44.0); LYMPHOCYTE # 0.6 TH/MM3 (1.0-4.8); MEAN CELL VOLUME 91.3 FL (80.0-100.0); MEAN CORPUSCULAR HEMOGLOBIN 29.6 PG (27.0-34.0); MEAN CORPUSCULAR HGB CONC 32.5 % (32.0-36.0); MONO % 11.9 % (0.0-8.0); NEUT % 75.1 % (16.0-70.0); RED BLOOD COUNT 3.24 MIL/MM3 (4.50-5.90); RED CELL DISTRIBUTION WIDTH 16.7 % (11.6-17.2); WHITE BLOOD COUNT 7.9 TH/MM3 (4.0-11.0)
[2017-07-04 06:06] LABS: APTT (PATIENT) 34.1 SEC (24.3-30.1); INTERNATIONAL NORMALIZED RATIO 1.1 RATIO; PROTHROMBIN TIME - PATIENT 12.5 SEC (9.8-11.6)
[2017-07-04 06:19] LABS: BICARBONATE 25.1 MEQ/L (21.0-32.0); POTASSIUM 4.1 MEQ/L (3.5-5.1)
[2017-07-04 06:20] LABS: HEMO FLAGS AUTO DIFF
[2017-07-04 06:21] LABS: PLATELET COUNT 16 TH/MM3 (150-450)
[2017-07-04 06:31] LABS: CALCIUM-PROTEIN CORRECTED 8.1 MG/DL (8.5-10.1)
[2017-07-04] MEDS ORDERED: BUMETANIDE INJ 1 MG/4 ML VIAL IV PUSH ONE ×2 (08:00)
--- NOTE | 2017-07-04 08:07 | HHI.CCPN ---
Subjective Remarks/Hospital Course The patient is a 67-year-old male with past medical history of hypertension, metastatic colon cancer, tobacco abuse, who, about 3 weeks ago underwent low anterior resection with low colorectal anastomosis, diverting ileostomy, and resection of a segment of the left ureter with ureteral anastomosis and double- J stent placement. He presented yesterday with 5 day history of abdominal discomfort and increasing weakness. No history of high output from ileostomy. He was admitted to the colorectal surgery for dehydration and probable UTI. He was placed on ciprofloxacin and IV hydration. According to Dr. Geiger's note it was difficult dissection/resection colon mass because of the pelvic sidewall adherence and the adherence to the left ureter. A portion of ureter was resected due to possibility of tumor infiltration, and Dr. Augustine Pelayo re- anastomosed the ureter and placed left-sided double-J stent. Also 1 cm hepatic metastasis in his liver that was excised. Hospitalist consultation was requested for medical management and evaluation of tachycardia today. He was seen by Dr. Jay and was placed on infusion of Cardizem for heart rate 140s. Patient became hypotensive with systolic blood pressure early 90s. Lab work showed WBC 14.5 with 44% bands, creat increase from 1.2 to 1.4 and severely increased lactate at 8 from admission lactate of 2.6. CT of the abdomen pelvis done yesterday showed probable small bowel ileus. I evaluated the patient in the ICU. He is tachycardic in 140s, hypotensive and systolic blood pressure in mid 80s. Clinically appears very dehydrated, an NG tube was placed with approximately 3 L of some coffee-ground output. ABG shows a base excess of -10 and bicarbonate 12. I have ordered 4 liter normal saline boluses start 1 amp of bicarbonate, discontinued the LR infusion, and started bicarb gtt. Discontinue ciprofloxacin, started Zosyn every 6 hours, vancomycin 1 g 1. His elevated lactic acid and bandemia most likely secondary to severe sepsis, ileus, and severe dehydration. Serial lactate is ordered SUBJ 06/19: Lactic acid remains elevated at 6.6 despite getting 9 L of crystalloid boluses in last 24 hours. Tachycardia has improved heart rate in 110s. Remains on vasopressin at 0.04 units/min. Urine output almost 1200 mL overnight, OGT initial output was almost 3 L when placed yesterday a.m. Overnight had 550 mL of greenish brown fluid output. EGD pending today rule out gastric ischemia per Dr. Romero. Apparently Flex sig was negative post op in Dr. Geiger's office 06/20: Developed A. fib with RVR. Heart rate 200. Hemodynamically unstable, synchronized cardioversion attempted by Dr. Morales 100 200 J. Given 3 g mag sulfate and 80 mEq KCl 1, 0.5 digoxin 1 and started on amiodarone and Giorgio- Synephrine. Intubated due to hemodynamic instability. Currently remains sedated. Currently on Giorgio-Synephrine 80 mcg/m, and amiodarone. CT chest abdomen pelvis again confirms gastric and small bowel distention/ileus. UO 1800 ml in 24 hours 06/21: Remains critically ill, intubated sedated, on 100 mcg/min neosynpehrine. HR better controlled. NG output 1500, UO >1.4L. Am labs pending. Ileostomy sample positive for C Diff on PO vanc IV Flagyl. 06/22: Remains intubated sedated. Urine output 3000 mL with Bumex. NGT [address] Geiger did colonoscopy which was normal. Ileoscopy showed pseudomembranous colitis. Currently on 200 mcg/min of neosynephrine. Afib with RVR HR in 140's 06/23: Remains intubated sedated, remains in atrial fibrillation with RVR. Still requiring high doses of Giorgio-Synephrine at 190 mcg/min. UO 2.5L. chest x- ray showed bilateral large effusions. KUB shows improving small bowel distention. WBC count is slightly improved 06/24: Unable to control HR. Repeat shock x3 today. remains in atrial fibrillation with RVR rates 160-170 intermittently. Remains on amiodarone but will discontinued due to elevation of liver enzymes AST 546 ALT 158. (GI notified). Start Cardizem infusion and also give Surjit 0.5 mg 1. Platelet count continues to drop from 67 to today 45. Hematology following will start of Argatroban today. Creatinine has slightly increased to 1.3 to will DC Bumex infusion 06/25: Patient remains intubated sedated critically ill. Heart rate controlled for the first time since atrial fibrillation started. Heart rate remains 80- 90. Urine output 1200 mL in 24 hours but BUN/creatinine increasing 44/1.7. I will hydrate with 50 mL/hr normal saline for 24 hours. Transaminitis increasing AST 1300 ALT 386. Ultrasound of the liver unremarkable GI following 06/26: PTT elevated due to Argatorban/Liver failure. Dr. Hurley has DCd argatroban. SMILEY pending. Pl count is 21. Currently in sinus rhythm on Cardizem infusion. Not on any pressors. Creatinine improved to 1.2. Urine output adequate. Becomes very tachypneic on attempted CPAP. Discussed with Dr. Geiger Will Start Trickle Tube Feeds 06/27: no improvements. off pathway. thrombocytopenia persists. unable to wean from mechanical ventilation. neuro exam poor. will likely need trach. 06/28: platelets worse today. SMILEY not resulted yet. failing SBT and mental status poor. poor prognosis. will need trach and LTAC placement. 06/29: Tmax 101. Currently 99.6. Tolerating trickle tube feeds. Continues to fail spontaneous breathing trials. 06/30: Lasted 1 hour spontaneous breathing trial this AM. 2.5 hours this afternoon. Currently afebrile. Hemoglobin remained stable. 07/01: lasted 4 hours on SBT, except 15 of pressure support, so not ready clinically for extubation, and even after only 4 hours, tired out and became hypoxic and tachypneic. more awake today and following commands. will likely need tracheostomy. 07/02: new fever today, but wbc normal. per ID, will culture and observe, continue flagyl/PO vanc. otherwise no changes. no improvements. Subjective 07/03: pseudomonas in sputum and urine. increase in cough and secretions. ID following and added cefepime. still weak and failing SBTs for hypoxia and tachypnea. needs tracheostomy. will need long-term rehab and likely LTAC. 07/04: Wakes up easily, follows commands. On 5 mg/hr versed. CXR pending. UO adequate. Resume SBT. Significant weight gain. approx 15 kg up. Give Bumex 2 mg IV x1 Objective Vital Signs Date Time Temp Pulse Resp B/P (MAP) Pulse Ox O2 Delivery O2 Flow Rate FiO2 07/04/17 06:00 91 07/04/17 05:03 126/64 07/04/17 04:14 100 40 07/04/17 04:00 97.9 22 Intake and Output 10/30/17 10/30/17 10/31/17 08:00 16:00 00:00 Intake Total 266 ml Output Total 950 ml Balance -684 ml Result Diagram: 07/04/17 0515 07/04/17 0515 Imaging Last Impressions Chest X-Ray 06/30/17599 Signed Impressions: Service Date/Time: June 03:02 - CONCLUSION: 1. Improving bibasilar densities. Sarwat Suarez MD Abdomen X-Ray 06/27/17599 Signed Impressions: Service Date/Time: Tuesday, June 27, 2017 04:29 - CONCLUSION: Stable abdomen. Sarwat Suarez MD Liver Ultrasound 06/24/17 Signed Impressions: Service Date/Time: Saturday, June 24, 2017 16:38 - CONCLUSION: 1. Small volume ascites. 2. Small right effusion. Pierce Ospina Jr., MD Upper Extremity Ultrasound 06/23/17 Signed Impressions: Service Date/Time: June 20:03 - CONCLUSION: Noncompressibility right cephalic vein and left basilic vein consistent with venous thrombosis Trav Hsieh MD Lower Extremity Ultrasound 06/23/17 Signed Impressions: Service Date/Time: June 20:16 - CONCLUSION: Normal examination. No evidence DVT Trav Hsieh MD Chest CT 06/20/17 Signed Impressions: Service Date/Time: Tuesday, June 20, 2017 07:42 - CONCLUSION: 1. Bilateral effusions and consolidative changes in both lung bases. Bao Lora MD Abdomen/Pelvis CT 06/20/17 0000 Signed Impressions: Service Date/Time: Tuesday, June 20, 2017 07:39 - CONCLUSION: 1. Dilated stomach and multiple dilated loops of small bowel, likely ileus. 2. No definite gastric volvulus. 3. Fat containing right inguinal hernia which also contains small portion of the urinary bladder and minimal fluid. 4. Left-sided nephroureteral stent in good position. 5. Bibasilar consolidation and small pleural effusions. Sarwat Suarez MD Objective Remarks GENERAL: 67-year-old male intubated sedated critically ill. SKIN: Warm and dry. HEENT: Extraocular muscles intact. NECK: The neck is supple. LIJ central line in place CHEST:Few coarse rhonchi Equal bilaterally. Diminished at bases CVS: Tachycardia, IR. ABDOMEN: Abdomen is slightly distended, soft. Incision appears healing well. Ileostomy is functioning well. NGT in place EXTREMITIES: No pedal edema or cyanosis NEURO: Intubated. more awake, RASS -2. Moves all extremities, following commands today. Date of Insertion: Jun 18, 2017 Side: Left Location: Internal A/P Assessment and Plan PLAN: NEURO: - Midazolam, Fentanyl for sedation and vent synchrony - Goal of RASS -0 - Daily sedation vacation RESP: Acute hypoxemic respiratory failure HCAP Pseudomonas Pneumonia Probable COPD with exacerbation - Albuterol/ipratropium every 6 hours with albuterol aerosols every 2 hours. Dyspnea - Ventilator bundle - Daily SBT, continues to fail due to severe tachypnea on pressure support is lasted 4 hours 07/03, currently tolerating 12/5 - Bilateral small pleural effusion on chest x-ray, repeat CXR today - May need tracheostomy, but will give another day or to see whether extubation possible - Start IV solumedrol and Budesonide INH 07/04/17 CV: Atrial fibrillation with RVR - now rate controlled - Cardioverted several times without success and amiodarone started for A. fib with RVR - Amio DCd 06/24 due to Liver enzyme elevation.remains on Cardizem infusion and Digoxin. still back in afib with variable rate. very resistant afib and difficult to control. - IV Heparin discontinued due to Hit screen positive hematology consulted. Argatroban DCd 06/[address] Hurley SMILEY negative. On Lovenox - s/p Normal saline IV fluids 8L boluses on 06/18/17. - Bumetanide DCd 06/24 due to increasing creatinine. D5W started 07/03 for hypernatremia, DC today. Bumex 2 MG IV x1 07/04 - 2D Echo normal LV function GI: s/p Left colectomy with colorectal anastomosis, diverting ileostomy, wedge resection of liver metastasis C Diff enteritis/ileitis Transaminitis Hypernatremia - Trickle feeds, TPN at 50 cc an hour with lipids daily. - Pantoprazole 40 mg IV twice a day - Transaminitis most likely secondary to amiodarone and TPN and hypotension, interval worsening AST 1300, ALT 386, now improved - Gastroenterology Dr. Saldana. EGD 06/19. Evidence of esophagitis, and erythematous gastritis in the gastric body and gastric antrum - C Diff positive from ileostomy sample indicating C Diff enteritis. On PO vanc and IV Flagyl - Dr. Geiger 06/22. Colonoscopy normal. Ileoscopy severe pseudomembranous ileitis - IV metoclopramide [address] abdomen pelvis and KUB shows small bowel ileus., KUB 06/23 improving ileus - Continue Alvimopan 12 mg every 12 hours for ileus : s/p Partial resection of the left ureter with anastomosis and placement of double-J stent - Monitor renal function closely. Han catheter. UO adequate - IV Bumex 2 mg x1 ID: - ID Dr. Espinoza - PO Vancomycin and IV metronidazole for C diff enteritis - F/u blood and urine culture -negative to date - Cefepime started 07/03 for PSAE in sputum HEME: Thrombocytopenia likely consumptive secondary to sepsis, hit screen positive SMILEY negative Normocytic anemia - Monitor CBC, CMP/ Plt remain low, ? medication induced - HIT screen positive- consulted hematology - Argatroban started 06/24/17, DCd 06/26/[address] Hurley - According to Dr. Hurley elevated PTT secondary to decreased liver clearance of argatroban - back on Lovenox. ENDO: Hypophosphatemia - Electrolyte replacement per protocol -Sliding-scale insulin to maintain euglycemia PROPH: -Bilateral lower extremity SCDs. Currently on enoxaparin DVT dose, IV pantoprazole 40 q12 LINES: - Left IJ central line, radial art line Critically ill stable. Multi organ involvement makes diagnosis still guarded. Needs placement and long-term vent wean. Most likely need trach. Attempt trial extubation after optimizing fluid status Shiva Segovia MD Jul 04, 2017 08:07
[2017-07-04] MEDS: RESP: BUDESONIDE 0.5 MG/2 ML NEB NEB SCH ×3 (08:15→21:35)
[2017-07-04] MEDS: ENOXAPARIN SODIUM 40 MG/0.4 ML SYRINGE SQ SCH (08:24)
[2017-07-04] MEDS: methylPREDNISolone SOD SUCC 125 MG/2 ML VIAL IV PUSH SCH ×2 (08:27→20:21)
--- NOTE | 2017-07-04 08:33 | PD.ONC.PN ---
Subjective Subjective Remarks Patient seen and examined, vitals, labs, medications, microbiology and sap pp consultant notes reviewed. Presently, he is undergoing ventilator weaning; CPAP trials are on going. He was initiated on Cefepime IV yesterday. He remains on IV metronidazole and vancomycin via his ostomy. He remains thrombocytopenic. THere has been no overt bleeding. Objective Data Date Time Temp Pulse Resp B/P (MAP) Pulse Ox O2 Delivery O2 Flow Rate FiO2 07/04/17 08:19 35 07/04/17 08:19 99 35 07/04/17 06:00 91 07/04/17 05:03 100 126/64 07/04/17 04:14 100 40 07/04/17 04:00 87 07/04/17 04:00 40 07/04/17 04:00 97.9 87 22 111/55 (73) 100 105/58 (74) 07/04/17 02:00 93 07/04/17 00:10 99 40 07/04/17 00:00 40 07/04/17 00:00 93 07/04/17 00:00 98.3 93 25 108/55 (72) 99 97/56 (70) 07/03/17 22:00 93 07/03/17 20:53 100 40 07/03/17 20:00 98.0 98 23 110/57 (74) 99 97/56 (70) 07/03/17 20:00 40 07/03/17 20:00 98 07/03/17 18:00 104 07/03/17 16:00 104 07/03/17 16:00 40 07/03/17 16:00 100.9 100 25 104/55 (71) 98 109/58 (75) 07/03/17 15:34 98 40 07/03/17 14:00 99 07/03/17 12:00 99 07/03/17 12:00 40 07/03/17 12:00 99.7 99 22 107/58 (74) 98 101/57 (72) 07/03/17 11:53 96 40 07/03/17 10:00 96 07/04/17 07/04/17 07/04/17 07:00 15:00 23:00 Intake Total 266 ml Output Total 950 ml Balance -684 ml Result Diagram: 10/30/17 0515 10/30/17 0515 Laboratory Results Laboratory Tests Test 07/04/17 05:15 White Blood Count 7.9 TH/MM3 Red Blood Count 3.24 MIL/MM3 Hemoglobin 9.6 GM/DL Hematocrit 29.6 % Mean Corpuscular Volume 91.3 FL Mean Corpuscular Hemoglobin 29.6 PG Mean Corpuscular Hemoglobin Concent 32.5 % Red Cell Distribution Width 16.7 % Platelet Count 16 TH/MM3 Mean Platelet Volume 9.7 FL Neutrophils (%) (Auto) 75.1 % Lymphocytes (%) (Auto) 7.5 % Monocytes (%) (Auto) 11.9 % Eosinophils (%) (Auto) 1.7 % Basophils (%) (Auto) 3.8 % Neutrophils # (Auto) 5.9 TH/MM3 Lymphocytes # (Auto) 0.6 TH/MM3 Monocytes # (Auto) 0.9 TH/MM3 Eosinophils # (Auto) 0.1 TH/MM3 Basophils # (Auto) 0.3 TH/MM3 CBC Comment AUTO DIFF Prothrombin Time 12.5 SEC Prothromb Time International Ratio 1.1 RATIO Activated Partial Thromboplast Time 34.1 SEC Fibrinogen 413 mg/dL Blood Urea Nitrogen 25 MG/DL Creatinine 0.86 MG/DL Random Glucose 112 MG/DL Total Protein 5.4 GM/DL Calcium Level 7.2 MG/DL Sodium Level 145 MEQ/L Potassium Level 4.1 MEQ/L Chloride Level 114 MEQ/L Carbon Dioxide Level 25.1 MEQ/L Anion Gap 6 MEQ/L Estimat Glomerular Filtration Rate 88 ML/MIN Protein Corrected Calcium 8.1 MG/DL Culture Results Microbiology Date/Time Source Procedure Growth Status 07/02/17 18:54 Blood Peripheral Aerobic Blood Culture - Preliminary NO GROWTH IN 1 DAY Resulted 07/02/17 18:54 Blood Peripheral Anaerobic Blood Culture - Preliminary NO GROWTH IN 1 DAY Resulted 07/02/17 18:49 Blood Peripheral Aerobic Blood Culture - Preliminary NO GROWTH IN 1 DAY Resulted 07/02/17 18:49 Blood Peripheral Anaerobic Blood Culture - Preliminary NO GROWTH IN 1 DAY Resulted 07/02/17 17:00 Sputum Endotracheal Gram Stain - Final Resulted 07/02/17 17:00 Sputum Culture - Preliminary Pseudomonas Aeruginosa Resulted 07/02/17 15:45 Urine Clean Catch Urine Culture - Preliminary Pseudomonas Species Resulted Administered Medications Medications (Trade) Dose Ordered Sig/[place] Route PRN Reason Start Time Stop Time Status Last Admin Dose Admin Acetaminophen/ Hydrocodone Bitart ([place] 5-325 Mg) 1 tab Q4H PRN PO PAIN SCALE 1 TO 5 06/17/17 22:00 06/17/17 22:02 Acetaminophen/ Hydrocodone Bitart ([place] 5-325 Mg) 2 tab Q4H PRN PO PAIN SCALE 6 TO 10 06/17/17 22:00 06/21/17 20:40 Ondansetron HCl (Zofran Inj) 4 mg Q4H PRN IV PUSH NAUSEA/VOMITING 06/17/17 22:00 06/18/17 09:45 Miscellaneous Information Patient in critical care unit? Ass... [id number] .XX 06/18/17 05:45 06/18/17 05:45 Metoclopramide HCl (Reglan Inj) 5 mg Q8H IV PUSH 06/18/17 17:00 07/04/17 00:59 Potassium Chloride 100 ml @ 50 mls/hr Q2H PRN IV For Potassium 2.8 - 3.2 mEq/L 06/19/17 07:45 07/02/17 09:47 Potassium Chloride 100 ml @ 50 mls/hr Q2H PRN IV For Potassium 3.3 - 3.5 mEq/L 06/19/17 07:45 06/22/17 17:22 Sodium Phosphate 30 mmol/Sodium Chloride 250 ml @ 42 mls/hr UNSCH PRN IV For Phosphorus < 2.5 mg/dL 06/19/17 07:45 07/01/17 06:24 Fat Emulsion Intravenous 250 ml @ 10 mls/hr Q24H IV-CENTRAL 06/19/17 20:00 07/03/17 20:05 Insulin Aspart (NovoLOG SUPPLEMENTAL SCALE) 1 Q4HR SQ 06/19/17 12:00 06/21/17 20:34 Sodium Chloride 40 meq/Sodium Acetate 59 meq/ Potassium Chloride 40 meq/ Sodium Phosphate 40 meq/Magnesium Chloride 10 meq/ Calcium Chloride 9 meq/ Multivitamins 10 ml/Folic Acid 1 mg/Insulin Human Regular 40 units/ Amino Acids/ Dextrose 2,091.7937 ml @ 50 mls/hr Q24H IV-CENTRAL 06/19/17 20:00 07/03/17 20:09 Vancomycin HCl (VANCOMYCIN for oral use only) 500 mg QID NG 06/19/17 18:00 07/03/17 20:05 Chlorhexidine Gluconate (Peridex 0.12% Liq) 15 ml BID@08,20 MT 06/20/17 08:00 07/03/17 20:05 Metronidazole 100 ml @ 100 mls/hr Q8H IV 06/20/17 09:00 07/04/17 00:59 Acetaminophen (Tylenol 650 Mg/ 20 ml Liq) 650 mg Q6H PRN PO fever>100.5 06/20/17 16:30 07/03/17 16:30 Pantoprazole Sodium (Protonix Inj) 40 mg Q12H IV PUSH 06/21/17 07:00 07/04/17 05:04 Vancomycin HCl 250 mg/Sodium Chloride 102.5 ml @ 0 mls/hr TID IRRIGATION 06/23/17 13:00 07/03/17 18:18 Diltiazem HCl 125 mg/Sodium Chloride 125 ml @ 5 mls/hr TITRATE PRN IV Tachycardia 06/24/17 15:00 07/04/17 05:03 Digoxin (Lanoxin Inj) 0.125 mg DAILY IV PUSH 06/25/17 13:30 07/03/17 09:12 Acetaminophen (Tylenol) 650 mg Q4H PRN PO SEE LABEL COMMENTS 06/28/17 08:15 06/28/17 11:42 Diphenhydramine HCl (Benadryl) 25 mg Q4H PRN PO SEE LABEL COMMENTS 06/28/17 08:15 06/28/17 11:42 Enoxaparin Sodium (Lovenox Inj) 40 mg Q24H SQ 06/29/17 08:00 07/02/17 08:02 Fentanyl Citrate 250 ml @ 5 mls/hr TITRATE PRN IV Sedation 07/03/17 09:15 07/03/17 09:15 Cefepime HCl 1000 mg/Sodium Chloride 100 ml @ 200 mls/hr Q8H IV 07/03/17 11:00 07/04/17 03:46 Objective Remarks GENERAL APPEARANCE: Mr. Armendariz is a middle-aged/elderly male. He is laying in bed. He is responsive. He is intubated, ventilated and he is responsive and seems alert. He is moving all 4 limbs spontaneously. HEENT: Head atraumatic, normocephalic. Conjunctivae are pale. Sclerae are anicteric, EOMI, PERRLA, oral exam no pharyngeal erythema. NECK: No palpable cervical or supraclavicular lymphadenopathy. RESPIRATORY: Good air movement bilaterally. No added breath sounds. He has prolonged expiratory phase. He is initiating multiple spontaneous breaths. CARDIOVASCULAR: Irregular, tachycardiac, S1 S2, no obvious murmurs, rubs or gallops. ABDOMEN: The belly is soft. An ileostomy bag is noted containing liquid stools. A well-healing laparotomy incision in the midline is appreciated. The abdomen does not appear to be distended, there appears to be no significant increase in tympany on percussion. There are no signs of acute abdomen. LOWER EXTREMITIES: No pretibial edema, no calf tenderness. Upper extremities: Right upper extremity with edema. MUSCULOSKELETAL: There appears to be muscle atrophy. 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 Assessment/Plan Assessment Mr. Armendariz is a 67-year-old male who was recently diagnosed with metastatic adenocarcinoma of the rectosigmoid colon and had resection of a metastatic deposit to the liver. He is status post primary surgical resection (3-4 weeks ago) as well as wedge resection of a metastatic deposit to the liver and now has C difficile colitis. He has thrombocytopenia with thrombosis to the cephalic and brachial veins. Admitted to colorectal surgery service initially for weakness/abdominal pain. Then 06/18 became tachy and hypotensive. had elevated lactic acid and bandemia. sepsis suspected. Protection Manager was consulted. on 06/20 was intubated d /t hemodynamic instability. platelets also started falling on 06/20. Plan 1: Thrombocytopenia: PLT count is 16K today. The thrombocytopenia is likely multifactoral; he continues to have a peripheral consumptive coagulopathy (DIC) as evidenced by the persistently abnormal coags and elevated Fibrinogen level, he continues to have fevers. Some of the medications he is on may also be associated with thrombocytopenia. Additionally, it appears he has in the past been the recipient of external beam Radiation therapy to the pelvic area, which may decrease the marrow's synthetic function. SMILEY negative. Monitor PLT counts. 2. Progressive anemia: Likely secondary to critical illness, sepsis, blood draws and possible bleeding though no overt bleeding has been appreciated to the ostomy site 3. Metastatic colon carcinoma: Await recovery before addressing this. 4. Upper extremity DVT: Continue lovenox 40mg sq daily. Faraz Ryan MD Jul 04, 2017 08:33
--- NOTE | 2017-07-04 08:34 | RADRPT ---
EXAM DATE/TIME: 07/04/2017 07:15 [facility] COMPARISON: CHEST SINGLE AP, July 03, 2017, 12:15. INDICATIONS : Respiratory Disease. MEDICAL HISTORY : Hypertension. Hypercholesterolemia. SURGICAL HISTORY : None. ENCOUNTER: Subsequent ACUITY: 2 weeks PAIN SCORE: Non-responsive. LOCATION: Bilateral chest FINDINGS: An endotracheal tube has its tip approximately 3 cm above the antolin. A nasogastric tube has its tip below the diaphragm. A left internal jugular central line has its tip in the superior vena cava. T here is no pneumothorax. Bibasilar patchiness is noted consistent with atelectasis and/or infiltrate s. Small bilateral pleural effusions are noted. The heart is stable. CONCLUSION: 1. Bibasilar patchiness consistent with atelectasis and/or infiltrates. 2. Small bilateral pleural effusions. 3. Multiple tubes and lines are stable. Yefri Israel MD on July 04, 2017 at 8:26 Board Certified Radiologist. This report was verified electronically.
[2017-07-04] MEDS: DIGOXIN 0.5 MG/2 ML VIAL IV PUSH SCH (08:40)
[2017-07-04] MEDS: VANCOMYCIN 500 MG VIAL (FOR ORAL USE ONLY) NG SCH ×4 (08:49→20:22)
[2017-07-04] MEDS: SODIUM CHLORIDE 0.9% IRRIGATION SCH ×3 (08:55→17:58)
[2017-07-04] MEDS: IRR IRRIGATION SCH ×3 (08:55→17:58)
[2017-07-04] MEDS: VANCOMYCIN IRRIGATION SCH ×3 (08:55→17:58)
[2017-07-04] MEDS: CHLORHEXIDINE 0.12% (ORAL KIT) 15 ML CUP MT SCH ×2 (08:56→20:20)
[2017-07-04 09:22] LABS: BANDS 5 % (0-6); BLASTS 1 % (0-0); CORRECTED NUCLEATED RBC 9 /100 WBC (0-0); EOSINOPHILS 4 % (0-4); NEUTROPHIL # MANUAL DIFF 7.2 TH/MM3 (1.8-7.7); POLYS (SEG NEUTROPHILS) 86 % (16-70); WBC DIFF SAMPLE 100
[2017-07-04 09:23] LABS: PLATELET ESTIMATE SMEAR RARE (NORMAL); PLATELET MORPHOLOGY ENLARGED (NORMAL); SCAN/DIFF FINAL DIFF MANUAL
--- NOTE | 2017-07-04 10:19 | HHI.PR ---
Subjective Remarks Pt remains intubated but more awake. says that Versed makes hin anxious and he's been off his antidepressant. Objective Vital Signs Date Time Temp Pulse Resp B/P (MAP) Pulse Ox O2 Delivery O2 Flow Rate FiO2 07/04/17 08:19 35 07/04/17 08:19 99 35 07/04/17 06:00 91 07/04/17 05:03 100 126/64 07/04/17 04:14 100 40 07/04/17 04:00 87 07/04/17 04:00 40 07/04/17 04:00 97.9 87 22 111/55 (73) 100 105/58 (74) 07/04/17 02:00 93 07/04/17 00:10 99 40 07/04/17 00:00 40 07/04/17 00:00 93 07/04/17 00:00 98.3 93 25 108/55 (72) 99 97/56 (70) 07/03/17 22:00 93 07/03/17 20:53 100 40 07/03/17 20:00 98.0 98 23 110/57 (74) 99 97/56 (70) 07/03/17 20:00 40 07/03/17 20:00 98 07/03/17 18:00 104 07/03/17 16:00 104 07/03/17 16:00 40 07/03/17 16:00 100.9 100 25 104/55 (71) 98 109/58 (75) 07/03/17 15:34 98 40 07/03/17 14:00 99 07/03/17 12:00 99 07/03/17 12:00 40 07/03/17 12:00 99.7 99 22 107/58 (74) 98 101/57 (72) 07/03/17 11:53 96 40 I/O 07/03/17 07/03/17 07/03/17 07/04/17 07/04/17 07/04/17 07:00 15:00 23:00 07:00 15:00 23:00 Intake Total 471 ml 145 ml 1333 ml 266 ml Output Total 1250 ml 1050 ml 950 ml Balance -779 ml 145 ml 283 ml -684 ml IV Total 100 ml 145 ml 1036 ml Tube Feeding 171 ml 177 ml 146 ml Other 200 ml 120 ml 120 ml Output Urine Total 650 ml 550 ml 450 ml Stool Total 600 ml 500 ml 500 ml Result Diagram: 07/04/1751407/04/17514 Objective Remarks VS-S Rate controlled Gen: Pt comfortable Abd: Soft. Flat. Wound healed. Stoma now with appropriate bilious outputs. Rectum: sacral decubitus reviewed. Right side superficial. Left of coccyx black with probable collection I&Os: OK Assessment and Plan Assessment and Plan Decubitus- May be partial source of fever. Respiratory- May still need Trach Decubitus may need debridement. Can be done during Tracheostomy if needed. May tolerate increase in TF's D/W Dr Segovia and pt . Discussed possible Trach in next couple days. Luca Geiger MD Jul 04, 2017 10:19
--- NOTE | 2017-07-04 11:07 | HHI.IDPN ---
Note Infectious Disease Note Patient on vent. Awake. Indicates he is uncomfortable. Temp lower. Sputum culture has pseudomonas. Urine culture has pseudomonas. Blood culture pending. Admitted to the hospital with weakness, abdominal pain and nausea. The patient is status post anterior resection of colon and rectal areas and anastomosis along with a diverting ileostomy and also resection of a segment of left ureter with ureteral anastomosis and double-J stent placement three weeks prior. PAST MEDICAL HISTORY: 1. Hypertension. 2. Left knee surgery. 3. Metastatic colon cancer status post resection and coloanal anastomosis and also resection and re-anastomosis of the left ureter with double-J stent placement. ALLERGIES: 1. CODEINE. MEDICATIONS: 1. Metronidazole. 2. PO Vancomycin. 3. Vanco irrigation. 4. Cefepime. SOCIAL HISTORY: . Positive tobacco use. No alcohol. No illicit drug use. OBJECTIVE: Vital Signs Date Time Temp Pulse Resp B/P (MAP) Pulse Ox O2 Delivery O2 Flow Rate FiO2 07/04/17 10:00 108 07/04/17 08:19 35 07/04/17 08:19 99 35 07/04/17 08:00 99 07/04/17 08:00 35 07/04/17 08:00 99.8 99 27 120/57 (78) 100 128/62 (84) 07/04/17 06:00 91 07/04/17 05:03 100 126/64 07/04/17 04:14 100 40 07/04/17 04:00 87 07/04/17 04:00 40 07/04/17 04:00 97.9 87 22 111/55 (73) 100 105/58 (74) 07/04/17 02:00 93 07/04/17 00:10 99 40 07/04/17 00:00 40 07/04/17 00:00 93 07/04/17 00:00 98.3 93 25 108/55 (72) 99 97/56 (70) 07/03/17 22:00 93 07/03/17 20:53 100 40 07/03/17 20:00 98.0 98 23 110/57 (74) 99 97/56 (70) 07/03/17 20:00 40 07/03/17 20:00 98 07/03/17 18:00 104 07/03/17 16:00 104 07/03/17 16:00 40 07/03/17 16:00 100.9 100 25 104/55 (71) 98 109/58 (75) 07/03/17 15:34 98 40 07/03/17 14:00 99 07/03/17 12:00 99 07/03/17 12:00 40 07/03/17 12:00 99.7 99 22 107/58 (74) 98 101/57 (72) 07/03/17 11:53 96 40 Laboratory Tests Test 07/02/17 11:44 07/03/17 06:00 07/04/17 05:15 Haptoglobin 190 MG/DL White Blood Count 8.3 TH/MM3 7.9 TH/MM3 Red Blood Count 3.18 MIL/MM3 3.24 MIL/MM3 Hemoglobin 9.4 GM/DL 9.6 GM/DL Hematocrit 28.7 % 29.6 % Mean Corpuscular Volume 90.2 FL 91.3 FL Mean Corpuscular Hemoglobin 29.5 PG 29.6 PG Mean Corpuscular Hemoglobin Concent 32.7 % 32.5 % Red Cell Distribution Width 16.5 % 16.7 % Platelet Count 16 TH/MM3 16 TH/MM3 Mean Platelet Volume 10.2 FL 9.7 FL Neutrophils (%) (Auto) 77.1 % 75.1 % Lymphocytes (%) (Auto) 7.5 % 7.5 % Monocytes (%) (Auto) 12.1 % 11.9 % Eosinophils (%) (Auto) 1.0 % 1.7 % Basophils (%) (Auto) 2.3 % 3.8 % Neutrophils # (Auto) 6.4 TH/MM3 5.9 TH/MM3 Lymphocytes # (Auto) 0.6 TH/MM3 0.6 TH/MM3 Monocytes # (Auto) 1.0 TH/MM3 0.9 TH/MM3 Eosinophils # (Auto) 0.1 TH/MM3 0.1 TH/MM3 Basophils # (Auto) 0.2 TH/MM3 0.3 TH/MM3 CBC Comment AUTO DIFF AUTO DIFF Differential Total Cells Counted 100 100 Neutrophils % (Manual) 72 % 86 % Band Neutrophils % 12 % 5 % Lymphocytes % 1 % 1 % Monocytes % 10 % 3 % Basophils % 2 % Neutrophils # (Manual) 7.2 TH/MM3 7.2 TH/MM3 Metamyelocytes 3 % Nucleated Red Blood Cells 20 /100 WBC 9 /100 WBC Differential Comment FINAL DIFF MANUAL FINAL DIFF MANUAL Toxic Vacuolation PRESENT Platelet Estimate RARE RARE Platelet Morphology Comment ENLARGED ENLARGED Polychromasia 2.0 % Eosinophils % 4 % Blastocytes 1 % Laboratory Tests Test 07/02/17 11:44 07/03/17 04:00 07/04/17 05:15 Total Bilirubin 2.9 MG/DL Direct Bilirubin 2.3 MG/DL Indirect Bilirubin 0.6 MG/DL Lactate Dehydrogenase 457 U/L 411 U/L Blood Urea Nitrogen 23 MG/DL 25 MG/DL Creatinine 0.79 MG/DL 0.86 MG/DL Random Glucose 149 MG/DL 112 MG/DL Total Protein 5.2 GM/DL 5.4 GM/DL Calcium Level 7.2 MG/DL 7.2 MG/DL Sodium Level 148 MEQ/L 145 MEQ/L Potassium Level 3.7 MEQ/L 4.1 MEQ/L Chloride Level 115 MEQ/L 114 MEQ/L Carbon Dioxide Level 27.9 MEQ/L 25.1 MEQ/L Anion Gap 5 MEQ/L 6 MEQ/L Estimat Glomerular Filtration Rate 98 ML/MIN 88 ML/MIN Protein Corrected Calcium 8.2 MG/DL 8.1 MG/DL Microbiology Date/Time Source Procedure Growth Status 07/02/17 18:54 Blood Peripheral Aerobic Blood Culture - Preliminary NO GROWTH IN 1 DAY Resulted 07/02/17 18:54 Blood Peripheral Anaerobic Blood Culture - Preliminary NO GROWTH IN 1 DAY Resulted 07/02/17 18:49 Blood Peripheral Aerobic Blood Culture - Preliminary NO GROWTH IN 1 DAY Resulted 07/02/17 18:49 Blood Peripheral Anaerobic Blood Culture - Preliminary NO GROWTH IN 1 DAY Resulted 07/02/17 17:00 Sputum Endotracheal Gram Stain - Final Resulted 07/02/17 17:00 Sputum Culture - Preliminary Pseudomonas Aeruginosa Resulted 07/02/17 15:45 Urine Clean Catch Urine Culture - Final Pseudomonas Aeruginosa Complete IMAGING: Chest X-Ray 07/04/17 0000 Signed Impressions: Service Date/Time: Tuesday, July 04, 2017 07:15 - CONCLUSION: 1. Bibasilar patchiness consistent with atelectasis and/or infiltrates. 2. Small bilateral pleural effusions. 3. Multiple tubes and lines are stable. Yefri Israel MD Chest X-Ray 07/03/17 0000 Signed Impressions: Service Date/Time: Monday, July 03, 2017 12:15 - CONCLUSION: No significant change. Norman Mitchell MD Chest X-Ray 07/01/17599 Signed Impressions: Service Date/Time: Saturday, July 01, 2017 04:04 - CONCLUSION: Worsening basilar consolidation and pleural effusions, left more so than right. Lines and tubes as above. Luac Rollins MD Chest X-Ray 06/30/17599 Signed Impressions: Service Date/Time: June 03:02 - CONCLUSION: 1. Improving bibasilar densities. Sarwat Suarez MD Chest X-Ray 06/27/17599 Signed Impressions: Service Date/Time: Tuesday, June 27, 2017 04:23 - CONCLUSION: 1. Stable chest. 2. Bilateral patchy opacities and probable small pleural effusions. Sarwat Suarez MD Abdomen X-Ray 06/27/17599 Signed Impressions: Service Date/Time: Tuesday, June 27, 2017 04:29 - CONCLUSION: Stable abdomen. Sarwat Suarez MD Liver Ultrasound 06/24/17 Signed Impressions: Service Date/Time: Saturday, June 24, 2017 16:38 - CONCLUSION: 1. Small volume ascites. 2. Small right effusion. Pierce Ospina Jr., MD Upper Extremity Ultrasound 06/23/17 Signed Impressions: Service Date/Time: June 20:03 - CONCLUSION: Noncompressibility right cephalic vein and left basilic vein consistent with venous thrombosis Trav Hsieh MD Lower Extremity Ultrasound 06/23/17 Signed Impressions: Service Date/Time: June 20:16 - CONCLUSION: Normal examination. No evidence DVT Trav Hsieh MD Chest CT 06/20/17 Signed Impressions: Service Date/Time: Tuesday, June 20, 2017 07:42 - CONCLUSION: 1. Bilateral effusions and consolidative changes in both lung bases. Bao Lora MD Abdomen/Pelvis CT 06/20/17 Signed Impressions: Service Date/Time: Tuesday, June 20, 2017 07:39 - CONCLUSION: 1. Dilated stomach and multiple dilated loops of small bowel, likely ileus. 2. No definite gastric volvulus. 3. Fat containing right inguinal hernia which also contains small portion of the urinary bladder and minimal fluid. 4. Left-sided nephroureteral stent in good position. 5. Bibasilar consolidation and small pleural effusions. Sarwat Suarez MD PHYSICAL EXAMINATION: GENERAL: No acute distress. HEAD, EYES, EARS, NOSE, THROAT: No icterus. Oropharynx with dry mucosa. NECK: Supple. LUNGS: Coarse breath sounds. HEART: Regular S1-S2 without murmurs, rubs or gallops. ABDOMEN: Positive bowel sounds. Soft. Not tender. EXTREMITIES: No clubbing or cyanosis, edema at upper extremities. SKIN: No rash. NEUROLOGIC: Nonfocal. IMPRESSION: 1. Severe sepsis/ Bandemia.Status post recent surgery for rectal cancer and recent ureteral resection and double J ureteral stent. 2. C difficile colitis. Pseudomembranous enteritis/sepsis. 3. Acute respiratory failure. 4. Abnormal CXR - probable atelectasis. 5. Leukocytosis. Improved. 6. Elevated LFT's. improving. 7. Pseudomonas pneumonia and UTI. RECOMMENDATIONS: 1. Continue Flagyl IV. 2. Continue PO Vancomycin. 3. Continue Cefepime. 4. Follow Blood culture. Consider change of central ilne if temp persist. 5. Monitor the temps. El Espinoza MD Jul 04, 2017 11:07
[2017-07-04] MEDS: ACETAMINOPHEN 650 MG/20.3 ML UDC PO PRN (12:23)
--- NOTE | 2017-07-04 12:52 | PD.CAR.PN ---
CVT Progress Note Subjective/Hospital Course: Consult received For tracheostomy Tuesday Thanks J 07/04/17 Patient with multiple medical problems and respiratory failure For tracheostomy and debridement of sacral decubitus tomorrow Objective: Vital Signs Date Time Temp Pulse Resp B/P (MAP) Pulse Ox O2 Delivery O2 Flow Rate FiO2 07/04/17 12:00 105 07/04/17 12:00 99.8 105 26 118/70 (86) 98 111/59 (76) 07/04/17 10:00 108 07/04/17 08:19 35 07/04/17 08:19 99 35 07/04/17 08:00 99 07/04/17 08:00 35 07/04/17 08:00 99.8 99 27 120/57 (78) 100 128/62 (84) 07/04/17 06:00 91 07/04/17 05:03 100 126/64 07/04/17 04:14 100 40 07/04/17 04:00 87 07/04/17 04:00 40 07/04/17 04:00 97.9 87 22 111/55 (73) 100 105/58 (74) 07/04/17 02:00 93 07/04/17 00:10 99 40 07/04/17 00:00 40 07/04/17 00:00 93 07/04/17 00:00 98.3 93 25 108/55 (72) 99 97/56 (70) 07/03/17 22:00 93 07/03/17 20:53 100 40 07/03/17 20:00 98.0 98 23 110/57 (74) 99 97/56 (70) 07/03/17 20:00 40 07/03/17 20:00 98 07/03/17 18:00 104 07/03/17 16:00 104 07/03/17 16:00 40 07/03/17 16:00 100.9 100 25 104/55 (71) 98 109/58 (75) 07/03/17 15:34 98 40 07/03/17 14:00 99 Labs: Laboratory Tests Test 07/04/17 05:15 White Blood Count 7.9 TH/MM3 (4.0-11.0) Red Blood Count 3.24 MIL/MM3 (4.50-5.90) Hemoglobin 9.6 GM/DL (13.0-17.0) Hematocrit 29.6 % (39.0-51.0) Mean Corpuscular Volume 91.3 FL (80.0-100.0) Mean Corpuscular Hemoglobin 29.6 PG (27.0-34.0) Mean Corpuscular Hemoglobin Concent 32.5 % (32.0-36.0) Red Cell Distribution Width 16.7 % (11.6-17.2) Platelet Count 16 TH/MM3 (150-450) Mean Platelet Volume 9.7 FL (7.0-11.0) Neutrophils (%) (Auto) 75.1 % (16.0-70.0) Lymphocytes (%) (Auto) 7.5 % (9.0-44.0) Monocytes (%) (Auto) 11.9 % (0.0-8.0) Eosinophils (%) (Auto) 1.7 % (0.0-4.0) Basophils (%) (Auto) 3.8 % (0.0-2.0) Neutrophils # (Auto) 5.9 TH/MM3 (1.8-7.7) Lymphocytes # (Auto) 0.6 TH/MM3 (1.0-4.8) Monocytes # (Auto) 0.9 TH/MM3 (0-0.9) Eosinophils # (Auto) 0.1 TH/MM3 (0-0.4) Basophils # (Auto) 0.3 TH/MM3 (0-0.2) CBC Comment AUTO DIFF Differential Total Cells Counted 100 Neutrophils % (Manual) 86 % (16-70) Band Neutrophils % 5 % (0-6) Lymphocytes % 1 % (9-44) Monocytes % 3 % (0-8) Eosinophils % 4 % (0-4) Neutrophils # (Manual) 7.2 TH/MM3 (1.8-7.7) Nucleated Red Blood Cells 9 /100 WBC (0-0) Differential Comment FINAL DIFF MANUAL Blastocytes 1 % (0-0) Platelet Estimate RARE (NORMAL) Platelet Morphology Comment ENLARGED (NORMAL) Prothrombin Time 12.5 SEC (9.8-11.6) Prothromb Time International Ratio 1.1 RATIO Activated Partial Thromboplast Time 34.1 SEC (24.3-30.1) Fibrinogen 413 mg/dL (227-377) Blood Urea Nitrogen 25 MG/DL (7-18) Creatinine 0.86 MG/DL (0.60-1.30) Random Glucose 112 MG/DL (74-106) Total Protein 5.4 GM/DL (6.4-8.2) Calcium Level 7.2 MG/DL (8.5-10.1) Sodium Level 145 MEQ/L (136-145) Potassium Level 4.1 MEQ/L (3.5-5.1) Chloride Level 114 MEQ/L (98-107) Carbon Dioxide Level 25.1 MEQ/L (21.0-32.0) Anion Gap 6 MEQ/L (5-15) Estimat Glomerular Filtration Rate 88 ML/MIN (>89) Protein Corrected Calcium 8.1 MG/DL (8.5-10.1) Result Diagram: 07/04/1751407/04/17514 (1) Atrial fibrillation Plan: New onset of atrial fibrillation in the setting of sepsis, C. Diff colitis and CA with mets. Difficult to control despite several cardioversion, meaning the infection likely in driving the afib. Agree with Cardizem drip. Amio off given elevated LFT's. Echo- Normal left ventricular systolic function with an estimated ejection fraction in the range of 50-55%, no wall motion abnormalities. Recommendations: 1. Continue supportive management for sepsis Will be available on a PRN basis for any questions or concerns. (2) Leukocytosis (3) Tachycardia (4) UTI (urinary tract infection) (5) Hypertension (6) Acute kidney injury (7) Sepsis (8) Cancer of rectum (9) Ileostomy in place Problem Qualifiers (1) Atrial fibrillation: Qualified Codes: I48.1 - Persistent atrial fibrillation Christiane Buchanan MD Jul 04, 2017 12:52
[2017-07-04] MEDS: FAT EMULSION 20% INJ 250 ML (@10 mls/hr) IV-CENTRAL SCH (20:18)
[2017-07-04] MEDS: SODIUM ACETATE IV-CENTRAL SCH ×10 (20:20)
[2017-07-04] MEDS: [UNRECOGNIZED DRUG - OTHER] IV-CENTRAL SCH ×10 (20:20)
[2017-07-04] MEDS: SODIUM CHLORIDE IV-CENTRAL SCH ×10 (20:20)
[2017-07-05] VITALS (23 sets, daily range): BP systolic 114–134; BP diastolic 51–62; PULSE 65–102; RESP 16–24; TEMP 97.8–98.9; O2SAT 95–100
[2017-07-05] MEDS: metroNIDAZOLE 500 MG INJ 100 ML IV SCH ×3 (01:00→17:13)
[2017-07-05] MEDS: METOCLOPRAMIDE HCL 10 MG/2 ML VIAL IV PUSH SCH ×3 (01:00→17:13)
[2017-07-05] MEDS: CEFEPIME INJ 1,000 MG in SODIUM CHLORIDE 0.9% INJ 100 ML IV SCH ×3 (03:00→18:39)
[2017-07-05] MEDS: DILTIAZEM INJ 125 MG in SODIUM CHLORIDE 0.9% INJ 100 ML IV PRN (03:32)
[2017-07-05] MEDS: INSULIN ASPART SUPPLEMENTAL SCALE SQ SCH ×6 (04:00→20:00)
--- NOTE | 2017-07-05 05:27 | RADRPT ---
EXAM DATE/TIME: 07/05/2017 03:52 [facility] COMPARISON: CHEST SINGLE AP, July 04, 2017, 7:15. INDICATIONS : Short of breath. MEDICAL HISTORY : Hypertension. Hypercholesterolemia. SURGICAL HISTORY : None. ENCOUNTER: Subsequent ACUITY: 1 week PAIN SCORE: 0/10 LOCATION: Bilateral chest FINDINGS: Endotracheal tube tip is present 3-4 cm above the antolin. Left neck central line descends to the SVC. Nasogastric tube coils in the stomach. There is persistent hazy bibasilar pleuroparenchymal opacity. Cardiac contours are grossly unchanged. CONCLUSION: Stable chest appearance Luca Trinidad MD on July 05, 2017 at 5:24 Board Certified Radiologist. This report was verified electronically.
[2017-07-05] MEDS: PANTOPRAZOLE SODIUM 40 MG VIAL IV PUSH SCH ×2 (05:39→18:39)
[2017-07-05 07:01] LABS: AUTOMATED NEUTROPHIL # 5.7 TH/MM3 (1.8-7.7); BASOPHIL % 0.3 % (0.0-2.0); EOSINOPHIL % 0.1 % (0.0-4.0); HEMATOCRIT 27.7 % (39.0-51.0); LYMPH % 4.6 % (9.0-44.0); LYMPHOCYTE # 0.3 TH/MM3 (1.0-4.8); MEAN CELL VOLUME 89.5 FL (80.0-100.0); MEAN CORPUSCULAR HEMOGLOBIN 29.2 PG (27.0-34.0); MEAN CORPUSCULAR HGB CONC 32.6 % (32.0-36.0); MONO % 5.3 % (0.0-8.0); NEUT % 89.7 % (16.0-70.0); RED BLOOD COUNT 3.09 MIL/MM3 (4.50-5.90); RED CELL DISTRIBUTION WIDTH 16.7 % (11.6-17.2); WHITE BLOOD COUNT 6.3 TH/MM3 (4.0-11.0)
[2017-07-05 07:11] LABS: HEMO FLAGS AUTO DIFF
[2017-07-05 07:12] LABS: PLATELET COUNT 11 TH/MM3 (150-450)
[2017-07-05 07:14] LABS: APTT (PATIENT) 33.6 SEC (24.3-30.1); INTERNATIONAL NORMALIZED RATIO 1.1 RATIO
[2017-07-05 07:19] LABS: ALT (GPT) 52 U/L (12-78); ANION GAP 9 MEQ/L (5-15); AST (GOT) 52 U/L (15-37); BICARBONATE 24.4 MEQ/L (21.0-32.0); CHLORIDE 111 MEQ/L (98-107); GLOMERULAR FILTRATION RATE 91 ML/MIN (>89); MAGNESIUM 2.1 MG/DL (1.5-2.5); POTASSIUM 3.6 MEQ/L (3.5-5.1); SODIUM (NA) 144 MEQ/L (136-145)
[2017-07-05 07:25] LABS: ALKALINE PHOSPHATASE 391 U/L (45-117); BLOOD UREA NITROGEN 33 MG/DL (7-18); TOTAL BILIRUBIN ADULT 2.4 MG/DL (0.2-1.0)
[2017-07-05] MEDS: VANCOMYCIN IRRIGATION SCH ×3 (08:26→17:13)
[2017-07-05] MEDS: IRR IRRIGATION SCH ×3 (08:26→17:13)
[2017-07-05] MEDS: SODIUM CHLORIDE 0.9% IRRIGATION SCH ×3 (08:26→17:13)
[2017-07-05] MEDS: methylPREDNISolone SOD SUCC 125 MG/2 ML VIAL IV PUSH SCH ×2 (08:26→21:04)
[2017-07-05] MEDS: DIGOXIN 0.5 MG/2 ML VIAL IV PUSH SCH (08:27)
[2017-07-05] MEDS: VANCOMYCIN 500 MG VIAL (FOR ORAL USE ONLY) NG SCH ×4 (08:28→21:00)
--- NOTE | 2017-07-05 08:32 | PD.ONC.PN ---
Subjective Subjective Remarks Patient seen and examined, VS, labs, microbiology and medications reviewed. Sputum and urine cultures are positive for pseudomonas; pt was started on Cefepime on 07/03. He remains intubated and on the ventilated, per the nursing staff a tracheostomy has been recommended; the pt's declines consent. PLT count decreased to 11K today. No overt bleeding noted. Objective Data Date Time Temp Pulse Resp B/P (MAP) Pulse Ox O2 Delivery O2 Flow Rate FiO2 07/05/17 06:00 90 07/05/17 04:10 98 Ventilator 07/05/17 04:06 97 35 07/05/17 04:00 65 07/05/17 04:00 35 07/05/17 04:00 97.8 65 18 120/54 (76) 97 07/05/17 03:32 91 129/61 07/05/17 02:00 74 07/05/17 00:08 100 Ventilator 07/05/17 00:01 100 35 07/05/17 00:00 35 07/05/17 00:00 98.5 76 24 126/51 (76) 98 07/05/17 00:00 76 07/04/17 22:00 75 07/04/17 21:35 97 35 07/04/17 20:00 35 07/04/17 20:00 98.0 83 24 111/50 (70) 97 07/04/17 20:00 83 07/04/17 18:00 72 07/04/17 16:00 87 07/04/17 16:00 98.1 87 24 119/54 (75) 99 108/54 (72) 07/04/17 16:00 35 07/04/17 14:00 103 07/04/17 12:48 99 35 07/04/17 12:00 105 07/04/17 12:00 35 07/04/17 12:00 99.8 105 26 118/70 (86) 98 111/59 (76) 07/04/17 10:20 35 07/04/17 10:00 108 07/04/17 09:15 35 07/04/17 08:45 35 07/05/17 07/05/17 07/05/17 07:00 15:00 23:00 Intake Total 213 ml Output Total 900 ml Balance -687 ml Result Diagram: 07/05/17 0520 07/05/17 0520 Laboratory Results Laboratory Tests Test 07/05/17 05:20 White Blood Count 6.3 TH/MM3 Red Blood Count 3.09 MIL/MM3 Hemoglobin 9.0 GM/DL Hematocrit 27.7 % Mean Corpuscular Volume 89.5 FL Mean Corpuscular Hemoglobin 29.2 PG Mean Corpuscular Hemoglobin Concent 32.6 % Red Cell Distribution Width 16.7 % Platelet Count 11 TH/MM3 Mean Platelet Volume 10.9 FL Neutrophils (%) (Auto) 89.7 % Lymphocytes (%) (Auto) 4.6 % Monocytes (%) (Auto) 5.3 % Eosinophils (%) (Auto) 0.1 % Basophils (%) (Auto) 0.3 % Neutrophils # (Auto) 5.7 TH/MM3 Lymphocytes # (Auto) 0.3 TH/MM3 Monocytes # (Auto) 0.3 TH/MM3 Eosinophils # (Auto) 0.0 TH/MM3 Basophils # (Auto) 0.0 TH/MM3 CBC Comment AUTO DIFF Prothrombin Time 12.0 SEC Prothromb Time International Ratio 1.1 RATIO Activated Partial Thromboplast Time 33.6 SEC Fibrinogen 424 mg/dL Blood Urea Nitrogen 33 MG/DL Creatinine 0.84 MG/DL Random Glucose 192 MG/DL Total Protein 5.5 GM/DL Albumin 1.5 GM/DL Calcium Level 7.5 MG/DL Magnesium Level 2.1 MG/DL Alkaline Phosphatase 391 U/L Aspartate Amino Transf (AST/SGOT) 52 U/L Alanine Aminotransferase (ALT/SGPT) 52 U/L Total Bilirubin 2.4 MG/DL Sodium Level 144 MEQ/L Potassium Level 3.6 MEQ/L Chloride Level 111 MEQ/L Carbon Dioxide Level 24.4 MEQ/L Anion Gap 9 MEQ/L Estimat Glomerular Filtration Rate 91 ML/MIN Culture Results Microbiology Date/Time Source Procedure Growth Status 07/02/17 18:54 Blood Peripheral Aerobic Blood Culture - Preliminary NO GROWTH IN 2 DAYS Resulted 07/02/17 18:54 Blood Peripheral Anaerobic Blood Culture - Preliminary NO GROWTH IN 2 DAYS Resulted 07/02/17 18:49 Blood Peripheral Aerobic Blood Culture - Preliminary NO GROWTH IN 2 DAYS Resulted 07/02/17 18:49 Blood Peripheral Anaerobic Blood Culture - Preliminary NO GROWTH IN 2 DAYS Resulted 07/02/17 17:00 Sputum Endotracheal Gram Stain - Final Complete 07/02/17 17:00 Sputum Culture - Final Pseudomonas Aeruginosa Complete 07/02/17 15:45 Urine Clean Catch Urine Culture - Final Pseudomonas Aeruginosa Complete Imaging Studies Last 24 hours Impressions Chest X-Ray 07/05/17 0600 Signed Impressions: Service Date/Time: Wednesday, July 05, 2017 03:52 - CONCLUSION: Stable chest appearance Luca Trinidad MD Administered Medications Medications (Trade) Dose Ordered Sig/[place] Route PRN Reason Start Time Stop Time Status Last Admin Dose Admin Acetaminophen/ Hydrocodone Bitart ([place] 5-325 Mg) 1 tab Q4H PRN PO PAIN SCALE 1 TO 5 06/17/17 22:00 06/17/17 22:02 Acetaminophen/ Hydrocodone Bitart ([place] 5-325 Mg) 2 tab Q4H PRN PO PAIN SCALE 6 TO 10 06/17/17 22:00 06/21/17 20:40 Ondansetron HCl (Zofran Inj) 4 mg Q4H PRN IV PUSH NAUSEA/VOMITING 06/17/17 22:00 06/18/17 09:45 Miscellaneous Information Patient in critical care unit? Ass... [id number] .[id number] 06/18/17 05:45 06/18/17 05:45 Metoclopramide HCl (Reglan Inj) 5 mg Q8H IV PUSH 06/18/17 17:00 07/05/17 01:00 Potassium Chloride 100 ml @ 50 mls/hr Q2H PRN IV For Potassium 2.8 - 3.2 mEq/L 06/19/17 07:45 07/02/17 09:47 Potassium Chloride 100 ml @ 50 mls/hr Q2H PRN IV For Potassium 3.3 - 3.5 mEq/L 06/19/17 07:45 06/22/17 17:22 Sodium Phosphate 30 mmol/Sodium Chloride 250 ml @ 42 mls/hr UNSCH PRN IV For Phosphorus < 2.5 mg/dL 06/19/17 07:45 07/01/17 06:24 Fat Emulsion Intravenous 250 ml @ 10 mls/hr Q24H IV-CENTRAL 06/19/17 20:00 07/04/17 20:18 Insulin Aspart (NovoLOG SUPPLEMENTAL SCALE) 1 Q4HR SQ 06/19/17 12:00 07/04/17 20:00 Sodium Chloride 40 meq/Sodium Acetate 59 meq/ Potassium Chloride 40 meq/ Sodium Phosphate 40 meq/Magnesium Chloride 10 meq/ Calcium Chloride 9 meq/ Multivitamins 10 ml/Folic Acid 1 mg/Insulin Human Regular 40 units/ Amino Acids/ Dextrose 2,091.7937 ml @ 50 mls/hr Q24H IV-CENTRAL 06/19/17 20:00 07/04/17 20:20 Vancomycin HCl (VANCOMYCIN for oral use only) 500 mg QID NG 06/19/17 18:00 07/04/17 20:22 Chlorhexidine Gluconate (Peridex 0.12% Liq) 15 ml BID@08,20 MT 06/20/17 08:00 07/04/17 20:20 Metronidazole 100 ml @ 100 mls/hr Q8H IV 06/20/17 09:00 07/05/17 01:00 Acetaminophen (Tylenol 650 Mg/ 20 ml Liq) 650 mg Q6H PRN PO fever>100.5 06/20/17 16:30 07/04/17 12:23 Pantoprazole Sodium (Protonix Inj) 40 mg Q12H IV PUSH 06/21/17 07:00 07/05/17 05:39 Vancomycin HCl 250 mg/Sodium Chloride 102.5 ml @ 0 mls/hr TID IRRIGATION 06/23/17 13:00 07/04/17 17:58 Diltiazem HCl 125 mg/Sodium Chloride 125 ml @ 5 mls/hr TITRATE PRN IV Tachycardia 06/24/17 15:00 07/05/17 03:32 Digoxin (Lanoxin Inj) 0.125 mg DAILY IV PUSH 06/25/17 13:30 07/04/17 08:40 Acetaminophen (Tylenol) 650 mg Q4H PRN PO SEE LABEL COMMENTS 06/28/17 08:15 06/28/17 11:42 Diphenhydramine HCl (Benadryl) 25 mg Q4H PRN PO SEE LABEL COMMENTS 06/28/17 08:15 06/28/17 11:42 Enoxaparin Sodium (Lovenox Inj) 40 mg Q24H SQ 06/29/17 08:00 07/04/17 08:24 Fentanyl Citrate 250 ml @ 5 mls/hr TITRATE PRN IV Sedation 07/03/17 09:15 07/03/17 09:15 Cefepime HCl 1000 mg/Sodium Chloride 100 ml @ 200 mls/hr Q8H IV 07/03/17 11:00 07/05/17 03:00 Methylprednisolone Sodium Succinate (SoluMEDROL INJ) 40 mg Q12HR IV PUSH 07/04/17 08:30 07/04/17 20:21 Budesonide (Pulmicort Respule Neb) 0.5 mg Q12HR NEB NEB 07/04/17 08:15 07/04/17 21:35 Objective Remarks GENERAL APPEARANCE: Mr. Armendariz is a middle-aged/elderly male. He is laying in bed. He is responsive. He is intubated, ventilated and he is responsive and seems alert. He is moving all 4 limbs spontaneously. HEENT: Head atraumatic, normocephalic. Conjunctivae are pale. Sclerae are anicteric, EOMI, PERRLA, oral exam no pharyngeal erythema. NECK: No palpable cervical or supraclavicular lymphadenopathy. RESPIRATORY: Good air movement bilaterally. No added breath sounds. He has prolonged expiratory phase. He is initiating multiple spontaneous breaths. CARDIOVASCULAR: Irregular, tachycardiac, S1 S2, no obvious murmurs, rubs or gallops. ABDOMEN: The belly is soft. An ileostomy bag is noted containing liquid stools. A well-healing laparotomy incision in the midline is appreciated. The abdomen does not appear to be distended, there appears to be no significant increase in tympany on percussion. There are no signs of acute abdomen. LOWER EXTREMITIES: No pretibial edema, no calf tenderness. Upper extremities: Right upper extremity with edema. MUSCULOSKELETAL: There appears to be muscle atrophy. ACID DUMPER: No spontaneous movement of the limbs. Assessment/Plan Assessment Mr. Armendariz is a 67-year-old male who was recently diagnosed with metastatic adenocarcinoma of the rectosigmoid colon and had resection of a metastatic deposit to the liver. He is status post primary surgical resection (3-4 weeks ago) as well as wedge resection of a metastatic deposit to the liver and now has C difficile colitis. He has thrombocytopenia with thrombosis to the cephalic and brachial veins. Admitted to colorectal surgery service initially for weakness/abdominal pain. Then 06/18 became tachy and hypotensive. had elevated lactic acid and bandemia. sepsis suspected. [employer] Feeder was consulted. on 06/20 was intubated d /t hemodynamic instability. platelets also started falling on 06/20. Plan 1: Thrombocytopenia: PLT count is 11K today. 1 unit PLT transfusion ordered. The thrombocytopenia is likely multifactoral; he continues to have a peripheral consumptive coagulopathy (DIC) as evidenced by the persistently abnormal coags and elevated Fibrinogen level, now with pseudomonas growing in sputum and urine cultures, he is recovering from his C.diff sepsis. Some of the medications he is on may also be associated with thrombocytopenia. Additionally, it appears he has in the past been the recipient of external beam Radiation therapy to the pelvic area, which may decrease the marrow's synthetic function. SMILEY negative; ruling out HIT. 2. Progressive anemia: Likely secondary to critical illness, sepsis, blood draws and possible bleeding though no overt bleeding has been appreciated to the ostomy site 3. Metastatic colon carcinoma: Await recovery before addressing this. 4. Upper extremity DVT: anticoagulation put on hold. Faraz Ryan MD Jul 05, 2017 08:32
[2017-07-05] MEDS: CHLORHEXIDINE 0.12% (ORAL KIT) 15 ML CUP MT SCH ×2 (08:33→21:06)
[2017-07-05] MEDS: RESP: ALBUTEROL 2.5 MG/3 ML NEB (PRN) NEB (08:44)
[2017-07-05] MEDS ORDERED: SODIUM CHLOR 0.9% 250 ML INJ 250 ML IV ONE (09:00)
[2017-07-05] MEDS ORDERED: diphenhydrAMINE HCL 25 MG CAP PO PRN (09:00)
[2017-07-05] MEDS ORDERED: ACETAMINOPHEN 325 MG TAB PO PRN (09:00)
[2017-07-05 10:28] LABS: BANDS 7 % (0-6); MYELOCYTES 3 % (0-0); NEUTROPHIL # MANUAL DIFF 5.9 TH/MM3 (1.8-7.7); POLYS (SEG NEUTROPHILS) 83 % (16-70); WBC DIFF SAMPLE 100
[2017-07-05 10:29] LABS: PLATELET ESTIMATE SMEAR LOW (NORMAL); PLATELET MORPHOLOGY NORMAL (NORMAL); SCAN/DIFF FINAL DIFF MANUAL
[2017-07-05] MEDS: POTASSIUM CHLORIDE 25 MEQ EFFERVESCENT TAB PO SCH (12:10)
[2017-07-05] MEDS: BUMETANIDE INJ 1 MG/4 ML VIAL IV PUSH SCH (12:10)
--- NOTE | 2017-07-05 12:12 | HHI.CCPN ---
Subjective Remarks/Hospital Course The patient is a 67-year-old male with past medical history of hypertension, metastatic colon cancer, tobacco abuse, who, about 3 weeks ago underwent low anterior resection with low colorectal anastomosis, diverting ileostomy, and resection of a segment of the left ureter with ureteral anastomosis and double- J stent placement. He presented yesterday with 5 day history of abdominal discomfort and increasing weakness. No history of high output from ileostomy. He was admitted to the colorectal surgery for dehydration and probable UTI. He was placed on ciprofloxacin and IV hydration. According to Dr. Geiger's note it was difficult dissection/resection colon mass because of the pelvic sidewall adherence and the adherence to the left ureter. A portion of ureter was resected due to possibility of tumor infiltration, and Dr. Augustine Pelayo re- anastomosed the ureter and placed left-sided double-J stent. Also 1 cm hepatic metastasis in his liver that was excised. Hospitalist consultation was requested for medical management and evaluation of tachycardia today. He was seen by Dr. Jay and was placed on infusion of Cardizem for heart rate 140s. Patient became hypotensive with systolic blood pressure early 90s. Lab work showed WBC 14.5 with 44% bands, creat increase from 1.2 to 1.4 and severely increased lactate at 8 from admission lactate of 2.6. CT of the abdomen pelvis done yesterday showed probable small bowel ileus. I evaluated the patient in the ICU. He is tachycardic in 140s, hypotensive and systolic blood pressure in mid 80s. Clinically appears very dehydrated, an NG tube was placed with approximately 3 L of some coffee-ground output. ABG shows a base excess of -10 and bicarbonate 12. I have ordered 4 liter normal saline boluses start 1 amp of bicarbonate, discontinued the LR infusion, and started bicarb gtt. Discontinue ciprofloxacin, started Zosyn every 6 hours, vancomycin 1 g 1. His elevated lactic acid and bandemia most likely secondary to severe sepsis, ileus, and severe dehydration. Serial lactate is ordered SUBJ 06/19: Lactic acid remains elevated at 6.6 despite getting 9 L of crystalloid boluses in last 24 hours. Tachycardia has improved heart rate in 110s. Remains on vasopressin at 0.04 units/min. Urine output almost 1200 mL overnight, OGT initial output was almost 3 L when placed yesterday a.m. Overnight had 550 mL of greenish brown fluid output. EGD pending today rule out gastric ischemia per Dr. Romero. Apparently Flex sig was negative post op in Dr. Geiger's office 06/20: Developed A. fib with RVR. Heart rate 200. Hemodynamically unstable, synchronized cardioversion attempted by Dr. Morales 100 200 J. Given 3 g mag sulfate and 80 mEq KCl 1, 0.5 digoxin 1 and started on amiodarone and Giorgio- Synephrine. Intubated due to hemodynamic instability. Currently remains sedated. Currently on Giorgio-Synephrine 80 mcg/m, and amiodarone. CT chest abdomen pelvis again confirms gastric and small bowel distention/ileus. UO 1800 ml in 24 hours 06/21: Remains critically ill, intubated sedated, on 100 mcg/min neosynpehrine. HR better controlled. NG output 1500, UO >1.4L. Am labs pending. Ileostomy sample positive for C Diff on PO vanc IV Flagyl. 06/22: Remains intubated sedated. Urine output 3000 mL with Bumex. NGT [address] Geiger did colonoscopy which was normal. Ileoscopy showed pseudomembranous colitis. Currently on 200 mcg/min of neosynephrine. Afib with RVR HR in 140's 06/23: Remains intubated sedated, remains in atrial fibrillation with RVR. Still requiring high doses of Giorgio-Synephrine at 190 mcg/min. UO 2.5L. chest x- ray showed bilateral large effusions. KUB shows improving small bowel distention. WBC count is slightly improved 06/24: Unable to control HR. Repeat shock x3 today. remains in atrial fibrillation with RVR rates 160-170 intermittently. Remains on amiodarone but will discontinued due to elevation of liver enzymes AST 546 ALT 158. (GI notified). Start Cardizem infusion and also give Surjit 0.5 mg 1. Platelet count continues to drop from 67 to today 45. Hematology following will start of Argatroban today. Creatinine has slightly increased to 1.3 to will DC Bumex infusion 06/25: Patient remains intubated sedated critically ill. Heart rate controlled for the first time since atrial fibrillation started. Heart rate remains 80- 90. Urine output 1200 mL in 24 hours but BUN/creatinine increasing 44/1.7. I will hydrate with 50 mL/hr normal saline for 24 hours. Transaminitis increasing AST 1300 ALT 386. Ultrasound of the liver unremarkable GI following 06/26: PTT elevated due to Argatorban/Liver failure. Dr. Hurley has DCd argatroban. SMILEY pending. Pl count is 21. Currently in sinus rhythm on Cardizem infusion. Not on any pressors. Creatinine improved to 1.2. Urine output adequate. Becomes very tachypneic on attempted CPAP. Discussed with Dr. Geiger Will Start Trickle Tube Feeds 06/27: no improvements. off pathway. thrombocytopenia persists. unable to wean from mechanical ventilation. neuro exam poor. will likely need trach. 06/28: platelets worse today. SMILEY not resulted yet. failing SBT and mental status poor. poor prognosis. will need trach and LTAC placement. 06/29: Tmax 101. Currently 99.6. Tolerating trickle tube feeds. Continues to fail spontaneous breathing trials. 06/30: Lasted 1 hour spontaneous breathing trial this AM. 2.5 hours this afternoon. Currently afebrile. Hemoglobin remained stable. 07/01: lasted 4 hours on SBT, except 15 of pressure support, so not ready clinically for extubation, and even after only 4 hours, tired out and became hypoxic and tachypneic. more awake today and following commands. will likely need tracheostomy. 07/02: new fever today, but wbc normal. per ID, will culture and observe, continue flagyl/PO vanc. otherwise no changes. no improvements. 07/03: pseudomonas in sputum and urine. increase in cough and secretions. ID following and added cefepime. still weak and failing SBTs for hypoxia and tachypnea. needs tracheostomy. will need long-term rehab and likely LTAC. 07/04: Wakes up easily, follows commands. On 5 mg/hr versed. CXR pending. UO adequate. Resume SBT. Significant weight gain. approx 15 kg up. Give Bumex 2 mg IV x1 Subjective 07/05: Patient is intubated sedated with 50 g per hour of fentanyl. Urine output 3 L in [address] on scheduled Bumex. Tolerating CPAP at 15/5. bring in Viibryd, which apparently patient had been on for long time. I have resumed it. Objective Vital Signs Date Time Temp Pulse Resp B/P (MAP) Pulse Ox O2 Delivery O2 Flow Rate FiO2 07/05/17 11:12 18 07/05/17 10:53 98.9 75 114/58 96 07/05/17 08:52 35 07/05/17 04:10 Ventilator Intake and Output 07/05/17 07/05/17 07/06/17 08:00 16:00 00:00 Intake Total 213 ml 25 ml Output Total 900 ml Balance -687 ml 25 ml Result Diagram: 07/05/17 0520 07/05/17 05 Other Results Microbiology Date/Time Source Procedure Growth Status 07/02/17 17:00 Sputum Endotracheal Gram Stain - Final Complete 07/02/17 17:00 Sputum Culture - Final Pseudomonas Aeruginosa Complete 07/02/17 15:45 Urine Clean Catch Urine Culture - Final Pseudomonas Aeruginosa Complete Imaging Last Impressions Chest X-Ray 06/30/17 0600 Signed Impressions: Service Date/Time: June 03:02 - CONCLUSION: 1. Improving bibasilar densities. Sarwat Suarez MD Abdomen X-Ray 06/27/17 0600 Signed Impressions: Service Date/Time: Tuesday, June 27, 2017 04:29 - CONCLUSION: Stable abdomen. Sarwat Suarez MD Liver Ultrasound 06/24/17 0000 Signed Impressions: Service Date/Time: Saturday, June 24, 2017 16:38 - CONCLUSION: 1. Small volume ascites. 2. Small right effusion. Pierce Ospina Jr., MD Upper Extremity Ultrasound 06/23/17 0000 Signed Impressions: Service Date/Time: June 20:03 - CONCLUSION: Noncompressibility right cephalic vein and left basilic vein consistent with venous thrombosis Trav Hsieh MD Lower Extremity Ultrasound 06/23/17 0000 Signed Impressions: Service Date/Time: June 20:16 - CONCLUSION: Normal examination. No evidence DVT Trav Hsieh MD Chest CT 06/20/17 0000 Signed Impressions: Service Date/Time: Tuesday, June 20, 2017 07:42 - CONCLUSION: 1. Bilateral effusions and consolidative changes in both lung bases. Bao Lora MD Abdomen/Pelvis CT 06/20/17 0000 Signed Impressions: Service Date/Time: Tuesday, June 20, 2017 07:39 - CONCLUSION: 1. Dilated stomach and multiple dilated loops of small bowel, likely ileus. 2. No definite gastric volvulus. 3. Fat containing right inguinal hernia which also contains small portion of the urinary bladder and minimal fluid. 4. Left-sided nephroureteral stent in good position. 5. Bibasilar consolidation and small pleural effusions. Sarwat Suarez MD Objective Remarks GENERAL: 67-year-old male intubated sedated critically ill, wakes up follows commands SKIN: Warm and dry. HEENT: Extraocular muscles intact. NECK: The neck is supple. LIJ central line in place CHEST:Few coarse rhonchi Equal bilaterally. Diminished at bases CVS: Tachycardia, IR. ABDOMEN: Abdomen is slightly distended, soft. Incision appears healing well. Ileostomy is functioning well. NGT in place EXTREMITIES: No pedal edema or cyanosis NEURO: Intubated. more awake, RASS -1. Moves all extremities, following commands. No focal deficits. Urinary Catheter: Yes Assessment to: Continue Vascular Central Line Catheter: Yes Assessment to: Continue Date of Insertion: Jun 18, 2017 Side: Left Location: Internal A/P Assessment and Plan PLAN: NEURO: - On, Fentanyl for sedation and vent synchrony. Use PRN Ativan - Resume Viibryd home med - Goal of RASS -0 to 1 - Daily sedation vacation RESP: Acute hypoxemic respiratory failure HCAP Pseudomonas Pneumonia COPD with exacerbation - Albuterol/ipratropium every 4 hours with albuterol aerosols every 2 hours. Dyspnea - Ventilator bundle. - Daily SBT, continues to fail when pressure-support is reduced - Bilateral small pleural effusion on chest x-ray, repeat CXR today - May need tracheostomy, but will give another day or two to see whether extubation possible - Started IV solumedrol and Budesonide INH 07/04/17 CV: Atrial fibrillation with RVR - now rate controlled Fluid overload - Cardioverted several times without success and amiodarone started for A. fib with RVR - Amio DCd 06/24 due to Liver enzyme elevation.remains on Cardizem infusion and Digoxin. still back in afib with variable rate. very resistant afib and difficult to control. - Start PO Cardizem 60 q6 and start weaning Cardizem infusion 07/05 - IV Heparin discontinued due to Hit screen positive hematology consulted. Argatroban DCd 06/[address] Hurley SMILEY negative. On Lovenox now - s/p Normal saline IV fluids 8L boluses on 06/18/17. - Bumetanide DCd 06/24 due to increasing creatinine. D5W started 07/03 for hypernatremia, DCd 07/04. Bumex 2 MG IV x1 07/04, - Scheduled Bumex 1 mg IV daily from 07/05/17 - 2D Echo normal LV function GI: s/p Left colectomy with colorectal anastomosis, diverting ileostomy, wedge resection of liver metastasis C Diff enteritis/ileitis Transaminitis Hypernatremia - Trickle feeds, TPN at 50 cc an hour with lipids daily. - Pantoprazole 40 mg IV twice a day - Transaminitis most likely secondary to amiodarone and TPN and hypotension, interval worsening AST 1300, ALT 386, now improved, near normal - Gastroenterology Dr. Saldana. EGD 06/19. Evidence of esophagitis, and erythematous gastritis in the gastric body and gastric antrum - C Diff positive from ileostomy sample indicating C Diff enteritis. On PO vanc and IV Flagyl - Dr. Geiger 06/22. Colonoscopy normal. Ileoscopy severe pseudomembranous ileitis - IV metoclopramide [address] abdomen pelvis and KUB shows small bowel ileus., KUB 06/23 improving ileus - Continue Alvimopan 12 mg every 12 hours for ileus : s/p Partial resection of the left ureter with anastomosis and placement of double-J stent - Monitor renal function closely. Han catheter. UO adequate - IV Bumex 2 mg x1 07/04 - Started on scheduled Bumex ID: - ID Dr. Espinoza - PO Vancomycin and IV metronidazole for C diff enteritis - F/u blood and urine culture -negative to date - Cefepime started 07/03 for PSAE in sputum HEME: Thrombocytopenia likely consumptive secondary to sepsis, hit screen positive SMILEY negative Normocytic anemia - Monitor CBC, CMP/ Plt remain low, multifactorial from severe sepsis, medication, and previous pelvic irradiation - HIT ruled out. - 1U platelet per hematology - Argatroban started 06/24/17, DCd 06/26/[address] Hurley - According to Dr. Hurley elevated PTT secondary to decreased liver clearance of argatroban - Back on Lovenox. ENDO: Hypophosphatemia - Electrolyte replacement per protocol - Sliding-scale insulin to maintain euglycemia PROPH: -Bilateral lower extremity SCDs. Currently on enoxaparin DVT dose, IV pantoprazole 40 q12 LINES: - Left IJ central line, radial art line Critically ill stable. Multi organ involvement makes diagnosis still guarded. Needs placement and long-term vent wean. Most likely need trach. Attempt trial extubation after optimizing fluid status Shiva Segovia MD Jul 05, 2017 12:12
[2017-07-05] MEDS ORDERED: BUMETANIDE INJ 1 MG/4 ML VIAL IV PUSH ONE (13:00)
--- NOTE | 2017-07-05 13:31 | HHI.IDPN ---
Note Infectious Disease Note Patient on CPAP. Awake and alert. Responsive. Afebrile. No significant secretions. Admitted to the hospital with weakness, abdominal pain and nausea. The patient is status post anterior resection of colon and rectal areas and anastomosis along with a diverting ileostomy and also resection of a segment of left ureter with ureteral anastomosis and double-J stent placement three weeks prior. PAST MEDICAL HISTORY: 1. Hypertension. 2. Left knee surgery. 3. Metastatic colon cancer status post resection and coloanal anastomosis and also resection and re-anastomosis of the left ureter with double-J stent placement. ALLERGIES: 1. CODEINE. MEDICATIONS: 1. Metronidazole. 2. PO Vancomycin. 3. Cefepime. SOCIAL HISTORY: . Positive tobacco use. No alcohol. No illicit drug use. OBJECTIVE: Vital Signs Date Time Temp Pulse Resp B/P (MAP) Pulse Ox O2 Delivery O2 Flow Rate FiO2 07/05/17 12:00 35 07/05/17 12:00 80 07/05/17 12:00 97.9 80 22 125/54 (77) 95 07/05/17 11:55 96 35 07/05/17 11:12 18 07/05/17 10:53 98.9 75 16 114/58 96 07/05/17 10:00 86 07/05/17 08:52 35 07/05/17 08:45 98 35 07/05/17 08:00 35 07/05/17 08:00 98.9 82 22 134/62 (86) 97 07/05/17 08:00 82 07/05/17 06:00 90 07/05/17 04:10 98 Ventilator 07/05/17 04:06 97 35 07/05/17 04:00 65 07/05/17 04:00 35 07/05/17 04:00 97.8 65 18 120/54 (76) 97 07/05/17 03:32 91 129/61 07/05/17 02:00 74 07/05/17 00:08 100 Ventilator 07/05/17 00:01 100 35 07/05/17 00:00 35 07/05/17 00:00 98.5 76 24 126/51 (76) 98 07/05/17 00:00 76 07/04/17 22:00 75 07/04/17 21:35 97 35 07/04/17 20:00 35 07/04/17 20:00 98.0 83 24 111/50 (70) 97 07/04/17 20:00 83 07/04/17 18:00 72 07/04/17 16:00 87 07/04/17 16:00 98.1 87 24 119/54 (75) 99 108/54 (72) 07/04/17 16:00 35 07/04/17 14:00 103 Laboratory Tests Test 07/04/17 05:15 07/05/17 05:20 White Blood Count 7.9 TH/MM3 6.3 TH/MM3 Red Blood Count 3.24 MIL/MM3 3.09 MIL/MM3 Hemoglobin 9.6 GM/DL 9.0 GM/DL Hematocrit 29.6 % 27.7 % Mean Corpuscular Volume 91.3 FL 89.5 FL Mean Corpuscular Hemoglobin 29.6 PG 29.2 PG Mean Corpuscular Hemoglobin Concent 32.5 % 32.6 % Red Cell Distribution Width 16.7 % 16.7 % Platelet Count 16 TH/MM3 11 TH/MM3 Mean Platelet Volume 9.7 FL 10.9 FL Neutrophils (%) (Auto) 75.1 % 89.7 % Lymphocytes (%) (Auto) 7.5 % 4.6 % Monocytes (%) (Auto) 11.9 % 5.3 % Eosinophils (%) (Auto) 1.7 % 0.1 % Basophils (%) (Auto) 3.8 % 0.3 % Neutrophils # (Auto) 5.9 TH/MM3 5.7 TH/MM3 Lymphocytes # (Auto) 0.6 TH/MM3 0.3 TH/MM3 Monocytes # (Auto) 0.9 TH/MM3 0.3 TH/MM3 Eosinophils # (Auto) 0.1 TH/MM3 0.0 TH/MM3 Basophils # (Auto) 0.3 TH/MM3 0.0 TH/MM3 CBC Comment AUTO DIFF AUTO DIFF Differential Total Cells Counted 100 100 Neutrophils % (Manual) 86 % 83 % Band Neutrophils % 5 % 7 % Lymphocytes % 1 % 4 % Monocytes % 3 % 3 % Eosinophils % 4 % Neutrophils # (Manual) 7.2 TH/MM3 5.9 TH/MM3 Nucleated Red Blood Cells 9 /100 WBC Differential Comment FINAL DIFF MANUAL FINAL DIFF MANUAL Blastocytes 1 % Platelet Estimate RARE LOW Platelet Morphology Comment ENLARGED NORMAL Myelocytes 3 % Basophilic Stippling MOD Laboratory Tests Test 07/04/17 05:15 07/05/17 05:20 Blood Urea Nitrogen 25 MG/DL 33 MG/DL Creatinine 0.86 MG/DL 0.84 MG/DL Random Glucose 112 MG/DL 192 MG/DL Total Protein 5.4 GM/DL 5.5 GM/DL Calcium Level 7.2 MG/DL 7.5 MG/DL Sodium Level 145 MEQ/L 144 MEQ/L Potassium Level 4.1 MEQ/L 3.6 MEQ/L Chloride Level 114 MEQ/L 111 MEQ/L Carbon Dioxide Level 25.1 MEQ/L 24.4 MEQ/L Anion Gap 6 MEQ/L 9 MEQ/L Estimat Glomerular Filtration Rate 88 ML/MIN 91 ML/MIN Protein Corrected Calcium 8.1 MG/DL Albumin 1.5 GM/DL Magnesium Level 2.1 MG/DL Alkaline Phosphatase 391 U/L Aspartate Amino Transf (AST/SGOT) 52 U/L Alanine Aminotransferase (ALT/SGPT) 52 U/L Total Bilirubin 2.4 MG/DL Microbiology Date/Time Source Procedure Growth Status 07/02/17 18:54 Blood Peripheral Aerobic Blood Culture - Preliminary NO GROWTH IN 3 DAYS Resulted 07/02/17 18:54 Blood Peripheral Anaerobic Blood Culture - Preliminary NO GROWTH IN 3 DAYS Resulted 07/02/17 18:49 Blood Peripheral Aerobic Blood Culture - Preliminary NO GROWTH IN 3 DAYS Resulted 07/02/17 18:49 Blood Peripheral Anaerobic Blood Culture - Preliminary NO GROWTH IN 3 DAYS Resulted 07/02/17 17:00 Sputum Endotracheal Gram Stain - Final Complete 07/02/17 17:00 Sputum Culture - Final Pseudomonas Aeruginosa Complete 07/02/17 15:45 Urine Clean Catch Urine Culture - Final Pseudomonas Aeruginosa Complete IMAGING: Chest X-Ray 07/05/17 0600 Signed Impressions: Service Date/Time: Wednesday, July 05, 2017 03:52 - CONCLUSION: Stable chest appearance Luca Trinidad MD Chest X-Ray 07/04/17 0000 Signed Impressions: Service Date/Time: Tuesday, July 04, 2017 07:15 - CONCLUSION: 1. Bibasilar patchiness consistent with atelectasis and/or infiltrates. 2. Small bilateral pleural effusions. 3. Multiple tubes and lines are stable. Yefri Israel MD Chest X-Ray 07/03/17 0000 Signed Impressions: Service Date/Time: Monday, July 03, 2017 12:15 - CONCLUSION: No significant change. Norman Mitchell MD PHYSICAL EXAMINATION: GENERAL: No acute distress. HEENT: No icterus. Oropharynx with dry mucosa. NECK: Supple. LUNGS: Coarse breath sounds. HEART: Regular S1-S2 without murmurs, rubs or gallops. ABDOMEN: Positive bowel sounds. Soft. EXTREMITIES: No clubbing or cyanosis, edema at upper extremities. SKIN: No rash. NEUROLOGIC: Nonfocal. IMPRESSION: 1. Severe sepsis/ Bandemia. Status post recent surgery for rectal cancer and recent ureteral resection and double J ureteral stent. 2. C difficile colitis. Pseudomembranous enteritis/sepsis. 3. Acute respiratory failure. 4. Abnormal CXR - probable atelectasis. 5. Leukocytosis. Improved. 6. Elevated LFT's. improving. 7. Pseudomonas pneumonia and UTI. RECOMMENDATIONS: 1. Continue Flagyl IV. 2. Continue PO Vancomycin. 3. Continue Cefepime. 4. Monitor the temps. El Espinoza MD Jul 05, 2017 13:31
[2017-07-05] MEDS: DILTIAZEM HCL 60 MG TAB PO SCH ×2 (14:04→17:13)
[2017-07-05] MEDS: LORazepam 2 MG/ML VIAL IV PUSH PRN ×2 (14:06→21:05)
--- NOTE | 2017-07-05 15:29 | PD.CAR.PN ---
CVT Progress Note Subjective/Hospital Course: Consult received For tracheostomy Tuesday Thanks Gretchen 07/04/17 Patient with multiple medical problems and respiratory failure For tracheostomy and debridement of sacral decubitus tomorrow 07/05/17 Patient was scheduled today for tracheostomy and debridement of the decubiti however refused for patient to have surgery Patient's has completely unrealistic expectations and is in complete denial as far as the patient's prognosis is concerned and the chance of recovery If the family changes their mind I'll be available Objective: Vital Signs Date Time Temp Pulse Resp B/P (MAP) Pulse Ox O2 Delivery O2 Flow Rate FiO2 07/05/17 12:00 35 07/05/17 12:00 80 07/05/17 12:00 97.9 80 22 125/54 (77) 95 07/05/17 11:55 96 35 07/05/17 11:12 18 07/05/17 10:53 98.9 75 16 114/58 96 07/05/17 10:00 86 07/05/17 08:52 35 07/05/17 08:45 98 35 07/05/17 08:00 35 07/05/17 08:00 98.9 82 22 134/62 (86) 97 07/05/17 08:00 82 07/05/17 07:00 83 125/57 07/05/17 06:00 90 07/05/17 04:10 98 Ventilator 07/05/17 04:06 97 35 07/05/17 04:00 65 07/05/17 04:00 35 07/05/17 04:00 97.8 65 18 120/54 (76) 97 07/05/17 03:32 91 129/61 07/05/17 02:00 74 07/05/17 00:08 100 Ventilator 07/05/17 00:01 100 35 07/05/17 00:00 35 07/05/17 00:00 98.5 76 24 126/51 (76) 98 07/05/17 00:00 76 07/04/17 22:00 75 07/04/17 21:35 97 35 07/04/17 20:00 35 07/04/17 20:00 98.0 83 24 111/50 (70) 97 07/04/17 20:00 83 07/04/17 18:00 72 07/04/17 16:00 87 07/04/17 16:00 98.1 87 24 119/54 (75) 99 108/54 (72) 07/04/17 16:00 35 Labs: Laboratory Tests Test 07/05/17 05:20 White Blood Count 6.3 TH/MM3 (4.0-11.0) Red Blood Count 3.09 MIL/MM3 (4.50-5.90) Hemoglobin 9.0 GM/DL (13.0-17.0) Hematocrit 27.7 % (39.0-51.0) Mean Corpuscular Volume 89.5 FL (80.0-100.0) Mean Corpuscular Hemoglobin 29.2 PG (27.0-34.0) Mean Corpuscular Hemoglobin Concent 32.6 % (32.0-36.0) Red Cell Distribution Width 16.7 % (11.6-17.2) Platelet Count 11 TH/MM3 (150-450) Mean Platelet Volume 10.9 FL (7.0-11.0) Neutrophils (%) (Auto) 89.7 % (16.0-70.0) Lymphocytes (%) (Auto) 4.6 % (9.0-44.0) Monocytes (%) (Auto) 5.3 % (0.0-8.0) Eosinophils (%) (Auto) 0.1 % (0.0-4.0) Basophils (%) (Auto) 0.3 % (0.0-2.0) Neutrophils # (Auto) 5.7 TH/MM3 (1.8-7.7) Lymphocytes # (Auto) 0.3 TH/MM3 (1.0-4.8) Monocytes # (Auto) 0.3 TH/MM3 (0-0.9) Eosinophils # (Auto) 0.0 TH/MM3 (0-0.4) Basophils # (Auto) 0.0 TH/MM3 (0-0.2) CBC Comment AUTO DIFF Differential Total Cells Counted 100 Neutrophils % (Manual) 83 % (16-70) Band Neutrophils % 7 % (0-6) Lymphocytes % 4 % (9-44) Monocytes % 3 % (0-8) Neutrophils # (Manual) 5.9 TH/MM3 (1.8-7.7) Myelocytes 3 % (0-0) Differential Comment FINAL DIFF MANUAL Platelet Estimate LOW (NORMAL) Platelet Morphology Comment NORMAL (NORMAL) Basophilic Stippling MOD (NORMAL) Prothrombin Time 12.0 SEC (9.8-11.6) Prothromb Time International Ratio 1.1 RATIO Activated Partial Thromboplast Time 33.6 SEC (24.3-30.1) Fibrinogen 424 mg/dL (227-377) Blood Urea Nitrogen 33 MG/DL (7-18) Creatinine 0.84 MG/DL (0.60-1.30) Random Glucose 192 MG/DL (74-106) Total Protein 5.5 GM/DL (6.4-8.2) Albumin 1.5 GM/DL (3.4-5.0) Calcium Level 7.5 MG/DL (8.5-10.1) Magnesium Level 2.1 MG/DL (1.5-2.5) Alkaline Phosphatase 391 U/L (45-117) Aspartate Amino Transf (AST/SGOT) 52 U/L (15-37) Alanine Aminotransferase (ALT/SGPT) 52 U/L (12-78) Total Bilirubin 2.4 MG/DL (0.2-1.0) Sodium Level 144 MEQ/L (136-145) Potassium Level 3.6 MEQ/L (3.5-5.1) Chloride Level 111 MEQ/L (98-107) Carbon Dioxide Level 24.4 MEQ/L (21.0-32.0) Anion Gap 9 MEQ/L (5-15) Estimat Glomerular Filtration Rate 91 ML/MIN (>89) Result Diagram: 07/05/1751907/05/17519 (1) Atrial fibrillation Plan: New onset of atrial fibrillation in the setting of sepsis, C. Diff colitis and CA with mets. Difficult to control despite several cardioversion, meaning the infection likely in driving the afib. Agree with Cardizem drip. Amio off given elevated LFT's. Echo- Normal left ventricular systolic function with an estimated ejection fraction in the range of 50-55%, no wall motion abnormalities. Recommendations: 1. Continue supportive management for sepsis Will be available on a PRN basis for any questions or concerns. (2) Leukocytosis (3) Tachycardia (4) UTI (urinary tract infection) (5) Hypertension (6) Acute kidney injury (7) Sepsis (8) Cancer of rectum (9) Ileostomy in place Problem Qualifiers (1) Atrial fibrillation: Qualified Codes: I48.1 - Persistent atrial fibrillation Christiane Buchanan MD Jul 05, 2017 15:29
[2017-07-05] MEDS: RESP: ALBUTEROL 2.5 MG/IPRATROPIUM 0.5 MG NEB (SCH) NEB ×3 (15:51→23:29)
--- NOTE | 2017-07-05 16:32 | HHI.PR ---
Subjective Remarks Pt remains intubated but looks comfortable on CPAP Objective Vital Signs Date Time Temp Pulse Resp B/P (MAP) Pulse Ox O2 Delivery O2 Flow Rate FiO2 07/05/17 15:52 95 35 07/05/17 14:00 102 07/05/17 12:00 35 07/05/17 12:00 80 07/05/17 12:00 97.9 80 22 125/54 (77) 95 07/05/17 11:55 96 35 07/05/17 11:12 18 07/05/17 10:53 98.9 75 16 114/58 96 07/05/17 10:00 86 07/05/17 08:52 35 07/05/17 08:45 98 35 07/05/17 08:00 35 07/05/17 08:00 98.9 82 22 134/62 (86) 97 07/05/17 08:00 82 07/05/17 07:00 83 125/57 07/05/17 06:00 90 07/05/17 04:10 98 Ventilator 07/05/17 04:06 97 35 07/05/17 04:00 65 07/05/17 04:00 35 07/05/17 04:00 97.8 65 18 120/54 (76) 97 07/05/17 03:32 91 129/61 07/05/17 02:00 74 07/05/17 00:08 100 Ventilator 07/05/17 00:01 100 35 07/05/17 00:00 35 07/05/17 00:00 98.5 76 24 126/51 (76) 98 07/05/17 00:00 76 07/04/17 22:00 75 07/04/17 21:35 97 35 07/04/17 20:00 35 07/04/17 20:00 98.0 83 24 111/50 (70) 97 07/04/17 20:00 83 07/04/17 18:00 72 I/O 07/04/17 07/04/17 07/04/17 07/05/17 07/05/17 07/05/17 07:00 15:00 23:00 07:00 15:00 23:00 Intake Total 266 ml 224 ml 1107 ml 213 ml 608 ml Output Total 950 ml 1900 ml 480 ml 900 ml Balance -684 ml -1676 ml 627 ml -687 ml 608 ml IV Total 224 ml 832 ml 200 ml Tube Feeding 146 ml 175 ml 93 ml Platelets 368 ml Blood Product IV Normal Saline Flush 40 ml Other 120 ml 100 ml 120 ml Output Urine Total 450 ml 1900 ml 450 ml 750 ml Stool Total 500 ml 30 ml 150 ml Result Diagram: 07/05/1751907/05/17519 Objective Remarks VS-S Rate controlled Gen: Pt comfortable Abd: Soft. Flat. Wound healed. Stoma now with appropriate bilious outputs. I&Os: OK Platelet 11K Assessment and Plan Assessment and Plan Decubitus- May be partial source of fever. Respiratory- May still need Trach Decubitus may need debridement. Can be done during Tracheostomy if needed. TF's to 20/hr Luca Geiger MD Jul 05, 2017 16:32
[2017-07-05] MEDS ORDERED: DILTIAZEM INJ 125 MG in SODIUM CHLORIDE 0.9% INJ 100 ML IV PRN (18:45)
[2017-07-05] MEDS: [UNRECOGNIZED DRUG - REMARK] PO SCH (21:00)
[2017-07-05] MEDS: fentaNYL 2,500 MCG/NS 250 ML IV PRN (21:04)
[2017-07-05] MEDS: FAT EMULSION 20% INJ 250 ML (@10 mls/hr) IV-CENTRAL SCH (21:05)
[2017-07-05] MEDS: [UNRECOGNIZED DRUG - OTHER] IV-CENTRAL SCH ×10 (21:06)
[2017-07-05] MEDS: SODIUM CHLORIDE IV-CENTRAL SCH ×10 (21:06)
[2017-07-05] MEDS: SODIUM ACETATE IV-CENTRAL SCH ×10 (21:06)
[2017-07-06] VITALS (19 sets, daily range): BP systolic 104–143; BP diastolic 63–87; PULSE 76–104; RESP 22–31; TEMP 97.9–98.6; O2SAT 92–100
[2017-07-06] MEDS: DILTIAZEM HCL 60 MG TAB PO SCH ×5 (00:03→23:45)
[2017-07-06] MEDS: METOCLOPRAMIDE HCL 10 MG/2 ML VIAL IV PUSH SCH ×4 (00:03→23:46)
[2017-07-06] MEDS: metroNIDAZOLE 500 MG INJ 100 ML IV SCH ×4 (00:03→23:45)
[2017-07-06] MEDS: RESP: ALBUTEROL 2.5 MG/IPRATROPIUM 0.5 MG NEB (SCH) NEB ×5 (03:40→20:21)
[2017-07-06] MEDS: INSULIN ASPART SUPPLEMENTAL SCALE SQ SCH ×7 (04:00→23:29)
[2017-07-06 04:36] LABS: AUTOMATED NEUTROPHIL # 7.6 TH/MM3 (1.8-7.7); BASOPHIL % 0.1 % (0.0-2.0); HEMATOCRIT 27.3 % (39.0-51.0); LYMPH % 4.7 % (9.0-44.0); LYMPHOCYTE # 0.4 TH/MM3 (1.0-4.8); MEAN CELL VOLUME 90.3 FL (80.0-100.0); MEAN CORPUSCULAR HEMOGLOBIN 29.3 PG (27.0-34.0); MEAN CORPUSCULAR HGB CONC 32.4 % (32.0-36.0); MONO % 6.9 % (0.0-8.0); NEUT % 88.3 % (16.0-70.0); PLATELET COUNT 31 TH/MM3 (150-450); RED BLOOD COUNT 3.02 MIL/MM3 (4.50-5.90); RED CELL DISTRIBUTION WIDTH 16.9 % (11.6-17.2); WHITE BLOOD COUNT 8.6 TH/MM3 (4.0-11.0)
[2017-07-06 04:40] LABS: HEMO FLAGS AUTO DIFF
[2017-07-06 04:55] LABS: ALT (GPT) 54 U/L (12-78); ANION GAP 7 MEQ/L (5-15); AST (GOT) 51 U/L (15-37); BICARBONATE 26.1 MEQ/L (21.0-32.0); BLOOD UREA NITROGEN 34 MG/DL (7-18); CHLORIDE 111 MEQ/L (98-107); GLOMERULAR FILTRATION RATE 109 ML/MIN (>89); POTASSIUM 3.7 MEQ/L (3.5-5.1); SODIUM (NA) 144 MEQ/L (136-145)
[2017-07-06 04:58] LABS: ALKALINE PHOSPHATASE 474 U/L (45-117); TOTAL BILIRUBIN ADULT 2.4 MG/DL (0.2-1.0)
[2017-07-06 05:39] LABS: BANDS 18 % (0-6); CORRECTED NUCLEATED RBC 4 /100 WBC (0-0); POLYS (SEG NEUTROPHILS) 75 % (16-70); SCAN/DIFF FINAL DIFF MANUAL; WBC DIFF SAMPLE 77
[2017-07-06 05:40] LABS: HOWELL-JOLLY BODIES PRESENT (NONE SEEN); PLATELET ESTIMATE SMEAR LOW (NORMAL)
[2017-07-06 05:42] LABS: PLATELET MORPHOLOGY ENLARGED (NORMAL)
--- NOTE | 2017-07-06 06:07 | RADRPT ---
EXAM DATE/TIME: 07/06/2017 03:52 [facility] COMPARISON: CHEST SINGLE AP, July 05, 2017, 3:52. INDICATIONS : Short of breath. MEDICAL HISTORY : Hypertension. Hypercholesterolemia. SURGICAL HISTORY : None. ENCOUNTER: Subsequent ACUITY: 1 week PAIN SCORE: 0/10 LOCATION: Bilateral chest FINDINGS: Endotracheal tube is present with tip 3 cm above the antolin. Nasogastric tube descends in the stomach . Left neck central line is stable in good position. Hazy bilateral lower lung zone pleuroparenchymal opacities are grossly unchanged. Cardiac contours are stable. CONCLUSION: No significant interval change Luca Trinidad MD on July 06, 2017 at 6:05 Board Certified Radiologist. This report was verified electronically.
[2017-07-06] MEDS: LORazepam 2 MG/ML VIAL IV PUSH PRN ×2 (06:19→23:46)
[2017-07-06] MEDS: PANTOPRAZOLE SODIUM 40 MG VIAL IV PUSH SCH ×2 (06:19→17:54)
[2017-07-06] MEDS: CEFEPIME INJ 1,000 MG in SODIUM CHLORIDE 0.9% INJ 100 ML IV SCH ×3 (06:21→17:59)
[2017-07-06] MEDS: RESP: BUDESONIDE 0.5 MG/2 ML NEB NEB SCH ×2 (08:00→20:21)
[2017-07-06] MEDS: VANCOMYCIN IRRIGATION SCH ×3 (08:11→17:53)
[2017-07-06] MEDS: IRR IRRIGATION SCH ×3 (08:11→17:53)
[2017-07-06] MEDS: SODIUM CHLORIDE 0.9% IRRIGATION SCH ×3 (08:11→17:53)
[2017-07-06] MEDS: BUMETANIDE INJ 1 MG/4 ML VIAL IV PUSH SCH ×2 (08:12→19:53)
[2017-07-06] MEDS: DIGOXIN 0.5 MG/2 ML VIAL IV PUSH SCH (08:13)
[2017-07-06] MEDS: methylPREDNISolone SOD SUCC 125 MG/2 ML VIAL IV PUSH SCH ×2 (08:13→19:53)
[2017-07-06] MEDS: VANCOMYCIN 500 MG VIAL (FOR ORAL USE ONLY) NG SCH ×4 (08:14→19:52)
[2017-07-06] MEDS: POTASSIUM CHLORIDE 25 MEQ EFFERVESCENT TAB PO SCH (08:15)
[2017-07-06] MEDS: CHLORHEXIDINE 0.12% (ORAL KIT) 15 ML CUP MT SCH ×2 (08:16→19:37)
--- NOTE | 2017-07-06 10:55 | HHI.CCPN ---
Subjective Remarks/Hospital Course The patient is a 67-year-old male with past medical history of hypertension, metastatic colon cancer, tobacco abuse, who, about 3 weeks ago underwent low anterior resection with low colorectal anastomosis, diverting ileostomy, and resection of a segment of the left ureter with ureteral anastomosis and double- J stent placement. He presented yesterday with 5 day history of abdominal discomfort and increasing weakness. No history of high output from ileostomy. He was admitted to the colorectal surgery for dehydration and probable UTI. He was placed on ciprofloxacin and IV hydration. According to Dr. Geiger's note it was difficult dissection/resection colon mass because of the pelvic sidewall adherence and the adherence to the left ureter. A portion of ureter was resected due to possibility of tumor infiltration, and Dr. Augustine Pelayo re- anastomosed the ureter and placed left-sided double-J stent. Also 1 cm hepatic metastasis in his liver that was excised. Hospitalist consultation was requested for medical management and evaluation of tachycardia today. He was seen by Dr. Jay and was placed on infusion of Cardizem for heart rate 140s. Patient became hypotensive with systolic blood pressure early 90s. Lab work showed WBC 14.5 with 44% bands, creat increase from 1.2 to 1.4 and severely increased lactate at 8 from admission lactate of 2.6. CT of the abdomen pelvis done yesterday showed probable small bowel ileus. I evaluated the patient in the ICU. He is tachycardic in 140s, hypotensive and systolic blood pressure in mid 80s. Clinically appears very dehydrated, an NG tube was placed with approximately 3 L of some coffee-ground output. ABG shows a base excess of -10 and bicarbonate 12. I have ordered 4 liter normal saline boluses start 1 amp of bicarbonate, discontinued the LR infusion, and started bicarb gtt. Discontinue ciprofloxacin, started Zosyn every 6 hours, vancomycin 1 g 1. His elevated lactic acid and bandemia most likely secondary to severe sepsis, ileus, and severe dehydration. Serial lactate is ordered SUBJ 06/19: Lactic acid remains elevated at 6.6 despite getting 9 L of crystalloid boluses in last 24 hours. Tachycardia has improved heart rate in 110s. Remains on vasopressin at 0.04 units/min. Urine output almost 1200 mL overnight, OGT initial output was almost 3 L when placed yesterday a.m. Overnight had 550 mL of greenish brown fluid output. EGD pending today rule out gastric ischemia per Dr. Romero. Apparently Flex sig was negative post op in Dr. Geiger's office 06/20: Developed A. fib with RVR. Heart rate 200. Hemodynamically unstable, synchronized cardioversion attempted by Dr. Morales 100 200 J. Given 3 g mag sulfate and 80 mEq KCl 1, 0.5 digoxin 1 and started on amiodarone and Giorgio- Synephrine. Intubated due to hemodynamic instability. Currently remains sedated. Currently on Giorgio-Synephrine 80 mcg/m, and amiodarone. CT chest abdomen pelvis again confirms gastric and small bowel distention/ileus. UO 1800 ml in 24 hours 06/21: Remains critically ill, intubated sedated, on 100 mcg/min neosynpehrine. HR better controlled. NG output 1500, UO >1.4L. Am labs pending. Ileostomy sample positive for C Diff on PO vanc IV Flagyl. 06/22: Remains intubated sedated. Urine output 3000 mL with Bumex. NGT [address] Geiger did colonoscopy which was normal. Ileoscopy showed pseudomembranous colitis. Currently on 200 mcg/min of neosynephrine. Afib with RVR HR in 140's 06/23: Remains intubated sedated, remains in atrial fibrillation with RVR. Still requiring high doses of Giorgio-Synephrine at 190 mcg/min. UO 2.5L. chest x- ray showed bilateral large effusions. KUB shows improving small bowel distention. WBC count is slightly improved 06/24: Unable to control HR. Repeat shock x3 today. remains in atrial fibrillation with RVR rates 160-170 intermittently. Remains on amiodarone but will discontinued due to elevation of liver enzymes AST 546 ALT 158. (GI notified). Start Cardizem infusion and also give Surjit 0.5 mg 1. Platelet count continues to drop from 67 to today 45. Hematology following will start of Argatroban today. Creatinine has slightly increased to 1.3 to will DC Bumex infusion 06/25: Patient remains intubated sedated critically ill. Heart rate controlled for the first time since atrial fibrillation started. Heart rate remains 80- 90. Urine output 1200 mL in 24 hours but BUN/creatinine increasing 44/1.7. I will hydrate with 50 mL/hr normal saline for 24 hours. Transaminitis increasing AST 1300 ALT 386. Ultrasound of the liver unremarkable GI following 06/26: PTT elevated due to Argatorban/Liver failure. Dr. Hurley has DCd argatroban. SMILEY pending. Pl count is 21. Currently in sinus rhythm on Cardizem infusion. Not on any pressors. Creatinine improved to 1.2. Urine output adequate. Becomes very tachypneic on attempted CPAP. Discussed with Dr. Geiger Will Start Trickle Tube Feeds 06/27: no improvements. off pathway. thrombocytopenia persists. unable to wean from mechanical ventilation. neuro exam poor. will likely need trach. 06/28: platelets worse today. SMILEY not resulted yet. failing SBT and mental status poor. poor prognosis. will need trach and LTAC placement. 06/29: Tmax 101. Currently 99.6. Tolerating trickle tube feeds. Continues to fail spontaneous breathing trials. 06/30: Lasted 1 hour spontaneous breathing trial this AM. 2.5 hours this afternoon. Currently afebrile. Hemoglobin remained stable. 07/01: lasted 4 hours on SBT, except 15 of pressure support, so not ready clinically for extubation, and even after only 4 hours, tired out and became hypoxic and tachypneic. more awake today and following commands. will likely need tracheostomy. 07/02: new fever today, but wbc normal. per ID, will culture and observe, continue flagyl/PO vanc. otherwise no changes. no improvements. 07/03: pseudomonas in sputum and urine. increase in cough and secretions. ID following and added cefepime. still weak and failing SBTs for hypoxia and tachypnea. needs tracheostomy. will need long-term rehab and likely LTAC. 07/04: Wakes up easily, follows commands. On 5 mg/hr versed. CXR pending. UO adequate. Resume SBT. Significant weight gain. approx 15 kg up. Give Bumex 2 mg IV x1 Subjective 07/05: Patient is intubated sedated with 50 g per hour of fentanyl. Urine output 3 L in [address] Will [address] on scheduled Bumex. Tolerating CPAP at 15/5. bring in Viibryd, which apparently patient had been on for long time. I have resumed it. 07/06: Tolerating CPAP 10/5 better today, Wakes up and following commands. Good UO with Bumex. Chest x-ray basilar opacities essentially unchanged. Increase IV Bumex to 1 mg every 12 Objective Vital Signs Date Time Temp Pulse Resp B/P (MAP) Pulse Ox O2 Delivery O2 Flow Rate FiO2 07/06/17 08:57 96 35 07/06/17 06:00 93 07/06/17 03:46 Ventilator 07/05/17 16:00 98.1 22 119/56 (77) Intake and Output 07/06/17 07/06/17 07/07/17 08:00 16:00 00:00 Intake Total 539 ml Output Total 900 ml Balance -361 ml Result Diagram: 07/06/17 03407/06/17 034 Imaging Last Impressions Chest X-Ray 06/30/17 0600 Signed Impressions: Service Date/Time: June 03:02 - CONCLUSION: 1. Improving bibasilar densities. Sarwat Suarez MD Abdomen X-Ray 06/27/17 0600 Signed Impressions: Service Date/Time: Tuesday, June 27, 2017 04:29 - CONCLUSION: Stable abdomen. Sarwat Suarez MD Liver Ultrasound 06/24/17 0000 Signed Impressions: Service Date/Time: Saturday, June 24, 2017 16:38 - CONCLUSION: 1. Small volume ascites. 2. Small right effusion. Pierce Ospina Jr., MD Upper Extremity Ultrasound 06/23/17 0000 Signed Impressions: Service Date/Time: June 20:03 - CONCLUSION: Noncompressibility right cephalic vein and left basilic vein consistent with venous thrombosis Trav Hsieh MD Lower Extremity Ultrasound 06/23/17 0000 Signed Impressions: Service Date/Time: June 20:16 - CONCLUSION: Normal examination. No evidence DVT Trav Hsieh MD Chest CT 06/20/17 0000 Signed Impressions: Service Date/Time: Tuesday, June 20, 2017 07:42 - CONCLUSION: 1. Bilateral effusions and consolidative changes in both lung bases. Bao Lora MD Abdomen/Pelvis CT 06/20/17 0000 Signed Impressions: Service Date/Time: Tuesday, June 20, 2017 07:39 - CONCLUSION: 1. Dilated stomach and multiple dilated loops of small bowel, likely ileus. 2. No definite gastric volvulus. 3. Fat containing right inguinal hernia which also contains small portion of the urinary bladder and minimal fluid. 4. Left-sided nephroureteral stent in good position. 5. Bibasilar consolidation and small pleural effusions. Sarwat Suarez MD Objective Remarks GENERAL: 67-year-old male intubated sedated critically ill, wakes up follows commands SKIN: Warm and dry. HEENT: Extraocular muscles intact. Orotracheally intubated NECK: The neck is supple. LIJ central line in place CHEST: Few coarse rhonchi Equal bilaterally. Diminished at bases CVS: Tachycardia, IR. ABDOMEN: Abdomen is slightly distended, soft. Incision appears healing well. Ileostomy is functioning well. NGT in place EXTREMITIES: No pedal edema or cyanosis NEURO: Intubated. more awake, RASS -0. Moves all extremities, following commands. No focal deficits. Urinary Catheter: Yes Assessment to: Continue Date of Insertion: Jun 18, 2017 Side: Left Location: Internal A/P Assessment and Plan PLAN: NEURO: - On, Fentanyl for sedation and vent synchrony. Use PRN Ativan - Resumed Viibryd home med - Goal of RASS -0 to 1 - Daily sedation vacation RESP: Acute hypoxemic respiratory failure HCAP Pseudomonas Pneumonia COPD with exacerbation - Albuterol/ipratropium every 4 hours with albuterol aerosols every 2 hours. Dyspnea - Ventilator bundle. - Tolerating better after starting IV steroids - Bilateral small pleural effusion on chest x-ray, repeat CXR stable - May need tracheostomy, but will proceed with extubation trial in 1-2 days prior to trach - Started IV solumedrol and Budesonide INH 07/04/17 CV: Atrial fibrillation with RVR - now rate controlled Fluid overload - Cardioverted several times without success and amiodarone started for A. fib with RVR - Amio DCd 06/24 due to Liver enzyme elevation.remains on Cardizem infusion and Digoxin. still back in afib with variable rate. very resistant afib and difficult to control. - Started PO Cardizem 60 q6 and weaning Cardizem infusion 07/05 - IV Heparin discontinued due to Hit screen positive hematology consulted. Argatroban DCd 06/[address] Hurley SMILEY negative. On Lovenox now - s/p Normal saline IV fluids 8L boluses on 06/18/17. - Scheduled Bumex 1 mg IV daily from 07/05/17, increase to BID 07/06 - 2D Echo normal LV function GI: s/p Left colectomy with colorectal anastomosis, diverting ileostomy, wedge resection of liver metastasis C Diff enteritis/ileitis Transaminitis Hypernatremia - Trickle feeds, TPN at 50 cc an hour with lipids daily. - Pantoprazole 40 mg IV twice a day - Transaminitis most likely secondary to amiodarone and TPN and hypotension, interval worsening AST 1300, ALT 386, now improved, near normal - Gastroenterology Dr. Saldana. EGD 06/19. Evidence of esophagitis, and erythematous gastritis in the gastric body and gastric antrum - C Diff positive from ileostomy sample indicating C Diff enteritis. On PO vanc and IV Flagyl - Dr. Geiger 06/22. Colonoscopy normal. Ileoscopy severe pseudomembranous ileitis - IV metoclopramide [address] abdomen pelvis and KUB shows small bowel ileus., KUB 06/23 improving ileus - Continue Alvimopan 12 mg every 12 hours for ileus : s/p Partial resection of the left ureter with anastomosis and placement of double-J stent - Monitor renal function closely. Han catheter. UO adequate - IV Bumex 2 mg x1 07/04 - Started on scheduled Bumex, increase to 1 mg IV q12 ID: - ID Dr. Espinoza - PO Vancomycin and IV metronidazole for C diff enteritis - F/u blood and urine culture -negative to date - Cefepime started 07/03 for PSAE in sputum HEME: Thrombocytopenia likely consumptive secondary to sepsis, hit screen positive SMILEY negative Normocytic anemia - Monitor CBC, CMP/ Plt remain low, multifactorial from severe sepsis, medication, and previous pelvic irradiation - HIT ruled out. - 1U platelet per hematology - Argatroban started 06/24/17, DCd 06/26/[address] Hurley - According to Dr. Hurley elevated PTT secondary to decreased liver clearance of argatroban - Back on Lovenox. ENDO: Hypophosphatemia - Electrolyte replacement per protocol - Sliding-scale insulin to maintain euglycemia PROPH: -Bilateral lower extremity SCDs. Currently on enoxaparin DVT dose, IV pantoprazole 40 q12 LINES: - Left IJ central line, radial art line Critically ill stable. Multi organ involvement makes diagnosis still guarded, but overall improving with IV steroids for COPD exacerbation and diuresis. May need trach. Attempt trial extubation after optimizing fluid status Level 3 Shiva Segovia MD Jul 06, 2017 10:55
[2017-07-06 12:03] LABS: BLOOD GAS BASE EXCESS 0.9 mmol/L (-2-2); BLOOD GAS CARBOXYHEMOGLOBIN 1.3 % (0-4); BLOOD GAS HCO3 24 mmol/L (22-26); BLOOD GAS METHEMOGLOBIN 1.2 % (0-2); BLOOD GAS O2 HGB SATURATION 94 % (90-100); BLOOD GAS OXYGEN CONTENT 12.3 Vol % (12.0-20.0); BLOOD GAS PCO2 34 mmHg (38-42); BLOOD GAS PO2 83 mmHg (61-120); BLOOD GAS TOTAL HGB 9.2 G/DL (12.0-16.0); TEMP CORR TO 98.6
[2017-07-06 12:04] LABS: CRITICAL VALUE NO; DRAW SITE ART LINE; FIO2 35 %; OXYGEN DEVICE VENTILATOR; STAT NO; VENT SETTINGS CPAP IPAP7EPAP5
[2017-07-06] MEDS ORDERED: BUMETANIDE INJ 1 MG/4 ML VIAL ONE (12:14)
[2017-07-06] MEDS ORDERED: ALBUMIN 25% INJ 50 ML IV ONE (12:30)
[2017-07-06] MEDS ORDERED: BUMETANIDE INJ 1 MG/4 ML VIAL IV PUSH ONE (12:30)
--- NOTE | 2017-07-06 12:50 | HHI.PR ---
Subjective Remarks Pt remains intubated but looks comfortable Objective Vital Signs Date Time Temp Pulse Resp B/P (MAP) Pulse Ox O2 Delivery O2 Flow Rate FiO2 07/06/17 12:29 98 Nasal Cannula 4 07/06/17 12:29 98 Nasal Cannula 4.00 07/06/17 10:00 79 07/06/17 10:00 76 07/06/17 09:00 82 07/06/17 08:57 96 35 07/06/17 08:57 35 07/06/17 08:00 35 07/06/17 08:00 97.9 76 22 143/66 (91) 98 07/06/17 08:00 76 07/06/17 06:00 93 07/06/17 04:00 88 07/06/17 04:00 35 07/06/17 03:46 100 Ventilator 07/06/17 03:42 100 35 07/06/17 02:00 80 07/06/17 00:00 104 07/06/17 00:00 35 07/05/17 23:31 96 35 07/05/17 22:00 91 07/05/17 21:46 97 Ventilator 07/05/17 20:39 96 35 07/05/17 20:00 35 07/05/17 20:00 77 07/05/17 18:00 73 07/05/17 16:00 98.1 86 22 119/56 (77) 96 07/05/17 16:00 35 07/05/17 16:00 86 07/05/17 15:52 95 35 07/05/17 14:00 102 I/O 07/05/17 07/05/17 07/05/17 07/06/17 07/06/17 07/06/17 07:00 15:00 23:00 07:00 15:00 23:00 Intake Total 213 ml 608 ml 1860 ml 539 ml Output Total 900 ml 1500 ml 900 ml Balance -687 ml 608 ml 360 ml -361 ml IV Total 200 ml 200 ml 100 ml Tube Feeding 93 ml 66 ml 319 ml TPN/PPN 1161 ml Lipid 233 ml Platelets 368 ml Blood Product IV Normal Saline Flush 40 ml Other 120 ml 200 ml 120 ml Output Urine Total 750 ml 1400 ml 750 ml Stool Total 150 ml 100 ml 150 ml Result Diagram: 07/06/1733907/06/17 034 Objective Remarks VS-S Rate controlled Gen: Pt comfortable Abd: Soft. Flat. Wound healed. Stoma working. I&Os: OK Platelet 31k Assessment and Plan Assessment and Plan Decubitus Respiratory- May still need Trach Decubitus may need debridement. Can be done during Tracheostomy if needed. TF's to 25/hr Luca Geiger MD Jul 06, 2017 12:50
--- NOTE | 2017-07-06 14:12 | HHI.IDPN ---
Note Infectious Disease Note Patient extubated. Now on nasal canula. Awake and alert. Responsive. Afebrile. Admitted to the hospital with weakness, abdominal pain and nausea. The patient is status post anterior resection of colon and rectal areas and anastomosis along with a diverting ileostomy and also resection of a segment of left ureter with ureteral anastomosis and double-J stent placement three weeks prior. PAST MEDICAL HISTORY: 1. Hypertension. 2. Left knee surgery. 3. Metastatic colon cancer status post resection and coloanal anastomosis and also resection and re-anastomosis of the left ureter with double-J stent placement. ALLERGIES: 1. CODEINE. MEDICATIONS: 1. Metronidazole. 2. PO Vancomycin. 3. Cefepime. SOCIAL HISTORY: . Positive tobacco use. No alcohol. No illicit drug use. OBJECTIVE: Vital Signs Date Time Temp Pulse Resp B/P (MAP) Pulse Ox O2 Delivery O2 Flow Rate FiO2 07/06/17 12:29 98 Nasal Cannula 4 07/06/17 12:29 98 Nasal Cannula 4.00 07/06/17 12:00 98.0 82 24 131/63 (85) 97 07/06/17 12:00 86 07/06/17 12:00 35 07/06/17 10:00 79 07/06/17 10:00 76 07/06/17 09:00 82 07/06/17 08:57 96 35 07/06/17 08:57 35 07/06/17 08:00 35 07/06/17 08:00 97.9 76 22 143/66 (91) 98 07/06/17 08:00 76 07/06/17 06:00 93 07/06/17 04:00 88 07/06/17 04:00 35 07/06/17 03:46 100 Ventilator 07/06/17 03:42 100 35 07/06/17 02:00 80 07/06/17 00:00 104 07/06/17 00:00 35 07/05/17 23:31 96 35 07/05/17 22:00 91 07/05/17 21:46 97 Ventilator 07/05/17 20:39 96 35 07/05/17 20:00 35 07/05/17 20:00 77 07/05/17 18:00 73 07/05/17 16:00 98.1 86 22 119/56 (77) 96 07/05/17 16:00 35 07/05/17 16:00 86 07/05/17 15:52 95 35 Laboratory Tests Test 07/05/17 05:20 07/06/17 03:40 White Blood Count 6.3 TH/MM3 8.6 TH/MM3 Red Blood Count 3.09 MIL/MM3 3.02 MIL/MM3 Hemoglobin 9.0 GM/DL 8.8 GM/DL Hematocrit 27.7 % 27.3 % Mean Corpuscular Volume 89.5 FL 90.3 FL Mean Corpuscular Hemoglobin 29.2 PG 29.3 PG Mean Corpuscular Hemoglobin Concent 32.6 % 32.4 % Red Cell Distribution Width 16.7 % 16.9 % Platelet Count 11 TH/MM3 31 TH/MM3 Mean Platelet Volume 10.9 FL 10.6 FL Neutrophils (%) (Auto) 89.7 % 88.3 % Lymphocytes (%) (Auto) 4.6 % 4.7 % Monocytes (%) (Auto) 5.3 % 6.9 % Eosinophils (%) (Auto) 0.1 % 0.0 % Basophils (%) (Auto) 0.3 % 0.1 % Neutrophils # (Auto) 5.7 TH/MM3 7.6 TH/MM3 Lymphocytes # (Auto) 0.3 TH/MM3 0.4 TH/MM3 Monocytes # (Auto) 0.3 TH/MM3 0.6 TH/MM3 Eosinophils # (Auto) 0.0 TH/MM3 0.0 TH/MM3 Basophils # (Auto) 0.0 TH/MM3 0.0 TH/MM3 CBC Comment AUTO DIFF AUTO DIFF Differential Total Cells Counted 100 77 Neutrophils % (Manual) 83 % 75 % Band Neutrophils % 7 % 18 % Lymphocytes % 4 % 3 % Monocytes % 3 % 4 % Neutrophils # (Manual) 5.9 TH/MM3 8.0 TH/MM3 Myelocytes 3 % Differential Comment FINAL DIFF MANUAL FINAL DIFF MANUAL Platelet Estimate LOW LOW Platelet Morphology Comment NORMAL ENLARGED Basophilic Stippling MOD Nucleated Red Blood Cells 4 /100 WBC [place] Bodies PRESENT Laboratory Tests Test 07/05/17 05:20 07/06/17 03:40 Blood Urea Nitrogen 33 MG/DL 34 MG/DL Creatinine 0.84 MG/DL 0.72 MG/DL Random Glucose 192 MG/DL 161 MG/DL Total Protein 5.5 GM/DL 5.6 GM/DL Albumin 1.5 GM/DL 1.6 GM/DL Calcium Level 7.5 MG/DL 7.6 MG/DL Magnesium Level 2.1 MG/DL Alkaline Phosphatase 391 U/L 474 U/L Aspartate Amino Transf (AST/SGOT) 52 U/L 51 U/L Alanine Aminotransferase (ALT/SGPT) 52 U/L 54 U/L Total Bilirubin 2.4 MG/DL 2.4 MG/DL Sodium Level 144 MEQ/L 144 MEQ/L Potassium Level 3.6 MEQ/L 3.7 MEQ/L Chloride Level 111 MEQ/L 111 MEQ/L Carbon Dioxide Level 24.4 MEQ/L 26.1 MEQ/L Anion Gap 9 MEQ/L 7 MEQ/L Estimat Glomerular Filtration Rate 91 ML/MIN 109 ML/MIN Microbiology Date/Time Source Procedure Growth Status 07/02/17 18:54 Blood Peripheral Aerobic Blood Culture - Preliminary NO GROWTH IN 3 DAYS Resulted 07/02/17 18:54 Blood Peripheral Anaerobic Blood Culture - Preliminary NO GROWTH IN 3 DAYS Resulted 07/02/17 18:49 Blood Peripheral Aerobic Blood Culture - Preliminary NO GROWTH IN 3 DAYS Resulted 07/02/17 18:49 Blood Peripheral Anaerobic Blood Culture - Preliminary NO GROWTH IN 3 DAYS Resulted 07/02/17 17:00 Sputum Endotracheal Gram Stain - Final Complete 07/02/17 17:00 Sputum Culture - Final Pseudomonas Aeruginosa Complete 07/02/17 15:45 Urine Clean Catch Urine Culture - Final Pseudomonas Aeruginosa Complete IMAGING: Chest X-Ray 07/06/17 0600 Signed Impressions: Service Date/Time: Thursday, July 06, 2017 03:52 - CONCLUSION: No significant interval change Luca Trinidad MD Chest X-Ray 07/05/17 0600 Signed Impressions: Service Date/Time: Wednesday, July 05, 2017 03:52 - CONCLUSION: Stable chest appearance Lcua Trinidad MD Chest X-Ray 07/04/17 0000 Signed Impressions: Service Date/Time: Tuesday, July 04, 2017 07:15 - CONCLUSION: 1. Bibasilar patchiness consistent with atelectasis and/or infiltrates. 2. Small bilateral pleural effusions. 3. Multiple tubes and lines are stable. Yefri Israel MD Chest X-Ray 07/03/17 0000 Signed Impressions: Service Date/Time: Monday, July 03, 2017 12:15 - CONCLUSION: No significant change. Norman Mitchell MD PHYSICAL EXAMINATION: GENERAL: No acute distress. HEENT: No icterus. Oropharynx with dry mucosa. NECK: Supple. LUNGS: Coarse breath sounds. Good air movement. HEART: Regular S1-S2 without murmurs, rubs or gallops. ABDOMEN: Positive bowel sounds. Soft. EXTREMITIES: No clubbing or cyanosis, edema. SKIN: No rash. NEUROLOGIC: Nonfocal. IMPRESSION: 1. Severe sepsis/ Bandemia. Status post recent surgery for rectal cancer and recent ureteral resection and double J ureteral stent. 2. C difficile colitis. Pseudomembranous enteritis/sepsis. 3. Acute respiratory failure. 4. Abnormal CXR - probable atelectasis. 5. Leukocytosis. Improved. 6. Elevated LFT's. improving. 7. Pseudomonas pneumonia and UTI. RECOMMENDATIONS: 1. Continue Flagyl IV. 2. Continue PO Vancomycin. 3. Continue Cefepime. 4. Monitor temps. El Espinoza MD Jul 06, 2017 14:11
--- NOTE | 2017-07-06 14:50 | RADRPT ---
EXAM DATE/TIME: 07/06/2017 13:44 [facility] COMPARISON: ABDOMEN KUB ONLY, June 27, 2017, 4:29. INDICATIONS : Ileus. MEDICAL HISTORY : None. SURGICAL HISTORY : Appendectomy. ENCOUNTER: Initial ACUITY: 2 weeks PAIN SCORE: Non-responsive. LOCATION: Bilateral abdomen FINDINGS: Supine view of the abdomen was performed. Mildly dilated small bowel loops. Colostomy right lower annika drant. Left-sided nephroureteral stent in good position. The abdominal bowel gas pattern is normal. No abnormal masses, calcifications, or organomegaly is seen. The osseous structures are unremarkable . CONCLUSION: 1. Gaseous distention of multiple bowel loops. This has slightly improved. 2. Left-sided nephroureteral stent in good position. Sarwat Suarez MD on July 06, 2017 at 14:48 Board Certified Radiologist. This report was verified electronically.
--- NOTE | 2017-07-06 15:33 | PD.WCN.NOT ---
Wound Consult Description: Received consult for OSTOMY MANAGEMENT Pt has Ileostomy. Communicated with: MARII Sun Dr Recommendation: When stable please reposition patient Q2H from left to right sides only, limiting time on back due to unstageable pressure injury. Cleanse sacral pressure injury daily with NORMAL SALINE ONLY. Apply Santyl ( nickel thickness) to gauze and apply to wound bed. Secure with dry cover/tape. Obtain wafer and pouch in size 1 3/4" for right sided abdomen ileostomy. Ostomy appliance is moldable, no need to cut. Change every 3-5 days and PRN for leaking. Additional Information: Patient seen at the request of Dr Geiger. Pathology Laboratory Aide communicated with MARII Sun regarding patient ileostomy and at her request, she would assist in turning patient for assessment of sacral injury as well. MARII Sun stated that she would be in to assist in turning patient when someone was available to watch her other patient. Patient is noted on a specialty surface with a pillow underneath his right lower back and buttock area. Right sided ileostomy was visualized and measured to be able to obtain a proper fitting appliance, the wafer currently in use was previously cut larger than stoma size. Moldable appliance in size 1 3/4" should be used for current stoma size of 1" oval. After speaking with patient regarding turning him to observe his wound on his sacrum, the patient assisted proposal writer in turning to his left side. Wound on sacrum was cleansed with NS and gauze. Wound measures 7cm x 4.5cm x island of adherent yellow/brown slough. Wound is opening at the wound margins to partial thickness skin loss presenting with pink tissue. Periwound is discolored yet blanching. There is skin protectant residue noted to periwound as well. Patient is noted with a hatch catheter and an ileostomy indicating no obvious moisture issues. Patient was resting comfortably on his left side and a pillow was placed back underneath his right back and buttock regions with a pillow placed in between his knees for comfort. MARII Sun entered room asking if assistance was needed, however assessment had been completed. MARII Sun and proposal writer pulled patient up in bed and covered patient up. Dr Segovia came into room and stated that the patient could not be turned on his side at this time due to recently being extubated. At that time MARII Sun began repositioning patient and proposal writer left the room. Orders obtained from Dr Segovia for Santyl daily to sacrum unstageable pressure injury. It was recommended that patient be positioned to his left and right sides when cleared by physician to do so. Ostomy Type: Ileostomy Complete: Other (supplies ordered in size 1 3/4" moldable for appliance change ) Kerry Thomas [facility] Jul 06, 2017 15:33
--- NOTE | 2017-07-06 16:56 | PD.ONC.PN ---
Subjective Subjective Remarks Afebrile Pt was extubated this am Asking for water Objective Data Date Time Temp Pulse Resp B/P (MAP) Pulse Ox O2 Delivery O2 Flow Rate FiO2 07/06/17 12:29 98 Nasal Cannula 4 07/06/17 12:29 98 Nasal Cannula 4.00 07/06/17 12:00 98.0 82 24 131/63 (85) 97 07/06/17 12:00 86 07/06/17 12:00 35 07/06/17 10:00 79 07/06/17 10:00 76 07/06/17 09:00 82 07/06/17 08:57 96 35 07/06/17 08:57 35 07/06/17 08:00 35 07/06/17 08:00 97.9 76 22 143/66 (91) 98 07/06/17 08:00 76 07/06/17 06:00 93 07/06/17 04:00 88 07/06/17 04:00 35 07/06/17 03:46 100 Ventilator 07/06/17 03:42 100 35 07/06/17 02:00 80 07/06/17 00:00 104 07/06/17 00:00 35 07/05/17 23:31 96 35 07/05/17 22:00 91 07/05/17 21:46 97 Ventilator 07/05/17 20:39 96 35 07/05/17 20:00 35 07/05/17 20:00 77 07/05/17 18:00 73 07/06/17 07/06/17 07/06/17 07:00 15:00 23:00 Intake Total 539 ml 250 ml Output Total 900 ml Balance -361 ml 250 ml Result Diagram: 07/06/17 0340 07/06/17 0340 Laboratory Results Laboratory Tests Test 07/06/17 03:40 07/06/17 11:45 White Blood Count 8.6 TH/MM3 Red Blood Count 3.02 MIL/MM3 Hemoglobin 8.8 GM/DL Hematocrit 27.3 % Mean Corpuscular Volume 90.3 FL Mean Corpuscular Hemoglobin 29.3 PG Mean Corpuscular Hemoglobin Concent 32.4 % Red Cell Distribution Width 16.9 % Platelet Count 31 TH/MM3 Mean Platelet Volume 10.6 FL Neutrophils (%) (Auto) 88.3 % Lymphocytes (%) (Auto) 4.7 % Monocytes (%) (Auto) 6.9 % Eosinophils (%) (Auto) 0.0 % Basophils (%) (Auto) 0.1 % Neutrophils # (Auto) 7.6 TH/MM3 Lymphocytes # (Auto) 0.4 TH/MM3 Monocytes # (Auto) 0.6 TH/MM3 Eosinophils # (Auto) 0.0 TH/MM3 Basophils # (Auto) 0.0 TH/MM3 CBC Comment AUTO DIFF Differential Total Cells Counted 77 Neutrophils % (Manual) 75 % Band Neutrophils % 18 % Lymphocytes % 3 % Monocytes % 4 % Neutrophils # (Manual) 8.0 TH/MM3 Nucleated Red Blood Cells 4 /100 WBC Differential Comment FINAL DIFF MANUAL Platelet Estimate LOW Platelet Morphology Comment ENLARGED [place] Bodies PRESENT Blood Urea Nitrogen 34 MG/DL Creatinine 0.72 MG/DL Random Glucose 161 MG/DL Total Protein 5.6 GM/DL Albumin 1.6 GM/DL Calcium Level 7.6 MG/DL Alkaline Phosphatase 474 U/L Aspartate Amino Transf (AST/SGOT) 51 U/L Alanine Aminotransferase (ALT/SGPT) 54 U/L Total Bilirubin 2.4 MG/DL Sodium Level 144 MEQ/L Potassium Level 3.7 MEQ/L Chloride Level 111 MEQ/L Carbon Dioxide Level 26.1 MEQ/L Anion Gap 7 MEQ/L Estimat Glomerular Filtration Rate 109 ML/MIN Blood Gas Puncture Site ART LINE Blood Gas Patient Temperature 98.6 Blood Gas HCO3 24 mmol/L Blood Gas Base Excess 0.9 mmol/L Blood Gas Oxygen Saturation 94 % Arterial Blood pH 7.46 Arterial Blood Partial Pressure CO2 34 mmHg Arterial Blood Partial Pressure O2 83 mmHg Arterial Blood Oxygen Content 12.3 Vol % Arterial Blood Carboxyhemoglobin 1.3 % Arterial Blood Methemoglobin 1.2 % Blood Gas Hemoglobin 9.2 G/DL Oxygen Delivery Device VENTILATOR Blood Gas Ventilator Setting CPAP [id number] Blood Gas Inspired Oxygen 35 % Imaging Studies Last 24 hours Impressions Chest X-Ray 07/06/17 0600 Signed Impressions: Service Date/Time: Thursday, July 06, 2017 03:52 - CONCLUSION: No significant interval change Luca Trinidad MD Administered Medications Medications (Trade) Dose Ordered Sig/[place] Route PRN Reason Start Time Stop Time Status Last Admin Dose Admin Acetaminophen/ Hydrocodone Bitart ([place] 5-325 Mg) 1 tab Q4H PRN PO PAIN SCALE 1 TO 5 10/13/17 22:00 06/17/17 22:02 Acetaminophen/ Hydrocodone Bitart ([place] 5-325 Mg) 2 tab Q4H PRN PO PAIN SCALE 6 TO 10 06/17/17 22:00 06/21/17 20:40 Ondansetron HCl (Zofran Inj) 4 mg Q4H PRN IV PUSH NAUSEA/VOMITING 06/17/17 22:00 06/18/17 09:45 Miscellaneous Information Patient in critical care unit? Ass... [id number] .XX 06/18/17 05:45 06/18/17 05:45 Metoclopramide HCl (Reglan Inj) 5 mg Q8H IV PUSH 06/18/17 17:00 07/06/17 08:14 Potassium Chloride 100 ml @ 50 mls/hr Q2H PRN IV For Potassium 2.8 - 3.2 mEq/L 06/19/17 07:45 07/02/17 09:47 Potassium Chloride 100 ml @ 50 mls/hr Q2H PRN IV For Potassium 3.3 - 3.5 mEq/L 06/19/17 07:45 06/22/17 17:22 Sodium Phosphate 30 mmol/Sodium Chloride 250 ml @ 42 mls/hr UNSCH PRN IV For Phosphorus < 2.5 mg/dL 06/19/17 07:45 07/01/17 06:24 Fat Emulsion Intravenous 250 ml @ 10 mls/hr Q24H IV-CENTRAL 06/19/17 20:00 07/05/17 21:05 Insulin Aspart (NovoLOG SUPPLEMENTAL SCALE) 1 Q4HR SQ 06/19/17 12:00 07/06/17 08:28 Sodium Chloride 40 meq/Sodium Acetate 59 meq/ Potassium Chloride 40 meq/ Sodium Phosphate 40 meq/Magnesium Chloride 10 meq/ Calcium Chloride 9 meq/ Multivitamins 10 ml/Folic Acid 1 mg/Insulin Human Regular 40 units/ Amino Acids/ Dextrose 2,091.7937 ml @ 50 mls/hr Q24H IV-CENTRAL 06/19/17 20:00 07/05/17 21:06 Vancomycin HCl (VANCOMYCIN for oral use only) 500 mg QID NG 06/19/17 18:00 07/06/17 12:17 Chlorhexidine Gluconate (Peridex 0.12% Liq) 15 ml BID@08,20 MT 06/20/17 08:00 07/06/17 08:16 Metronidazole 100 ml @ 100 mls/hr Q8H IV 06/20/17 09:00 07/06/17 08:15 Acetaminophen (Tylenol 650 Mg/ 20 ml Liq) 650 mg Q6H PRN PO fever>100.5 06/20/17 16:30 07/04/17 12:23 Pantoprazole Sodium (Protonix Inj) 40 mg Q12H IV PUSH 06/21/17 07:00 07/06/17 06:19 Vancomycin HCl 250 mg/Sodium Chloride 102.5 ml @ 0 mls/hr TID IRRIGATION 06/23/17 13:00 07/07/17 12:59 07/06/17 12:18 Digoxin (Lanoxin Inj) 0.125 mg DAILY IV PUSH 06/25/17 13:30 07/06/17 08:13 Albuterol Sulfate (Albuterol Neb) 2.5 mg Q2HR NEB PRN NEB DYSPNEA 06/29/17 14:30 07/05/17 08:44 Fentanyl Citrate 250 ml @ 5 mls/hr TITRATE PRN IV Sedation 07/03/17 09:15 07/05/17 21:04 Cefepime HCl 1000 mg/Sodium Chloride 100 ml @ 200 mls/hr Q8H IV 07/03/17 11:00 07/06/17 12:19 Methylprednisolone Sodium Succinate (SoluMEDROL INJ) 40 mg Q12HR IV PUSH 07/04/17 08:30 07/06/17 08:13 Budesonide (Pulmicort Respule Neb) 0.5 mg Q12HR NEB NEB 07/04/17 08:15 07/06/17 08:00 Potassium Bicarb/ Potassium Chloride (K-Lyte Cl Eff) 25 meq DAILY PO 07/05/17 12:00 07/06/17 08:15 Non-Formulary Medication 40 mg HS PO 07/05/17 21:00 07/05/17 21:00 Diltiazem HCl (Cardizem) 60 mg Q6HR PO 07/05/17 12:45 07/06/17 12:18 Albuterol/ Ipratropium (Duoneb Neb) 1 ampule Q4HR NEB NEB 07/05/17 16:00 07/06/17 16:19 Lorazepam (Ativan Inj) 1 mg Q4H PRN IV PUSH anxiety 07/05/17 13:00 07/06/17 06:19 Objective Remarks GENERAL: Older male, resting in bed in no acute distress. SKIN: Warm and dry. no bleeding from lines. HEAD: Normocephalic. EYES: No scleral icterus. No injection or drainage. NECK: Supple, trachea midline. CARDIOVASCULAR: +S1/S2 RESPIRATORY: Clear anteriorly. On 4L NC and recently extubated. GASTROINTESTINAL: Abdomen soft, nondistended. Ileostomy bag to R abdomen with brown liquid stool. EXTREMITIES: No cyanosis NEUROLOGICAL: Awake. Moving all extremities. Following commands. Assessment/Plan Assessment Mr. Armendariz is a 67-year-old male who was recently diagnosed with metastatic adenocarcinoma of the rectosigmoid colon and had resection of a metastatic deposit to the liver. He is status post primary surgical resection (3-4 weeks ago) as well as wedge resection of a metastatic deposit to the liver and now has C difficile colitis. He has thrombocytopenia with thrombosis to the cephalic and brachial veins. Admitted to colorectal surgery service initially for weakness/abdominal pain. Then 06/18 became tachy and hypotensive. had elevated lactic acid and bandemia. sepsis suspected. Drupal Programmer was consulted. on 06/20 was intubated d /t hemodynamic instability. platelets also started falling on 06/20. Plan 1. Platelet count is 31K after getting transfusion yesterday. He is also on steroids for COPD which no doubt is helping with his thrombocytopenia. 2. Hold off on anticoagulation until platelets recovered greater than 60K 3. Will discuss treatment for his metastatic colon cancer after he recovers from his acute illness 4. Monitor CBC, monitor for bleeding. Deb Posada Jul 06, 2017 16:56
[2017-07-06] MEDS: FAT EMULSION 20% INJ 250 ML (@10 mls/hr) IV-CENTRAL SCH (19:52)
[2017-07-06] MEDS: [UNRECOGNIZED DRUG - OTHER] IV-CENTRAL SCH ×10 (19:52)
[2017-07-06] MEDS: SODIUM CHLORIDE IV-CENTRAL SCH ×10 (19:52)
[2017-07-06] MEDS: SODIUM ACETATE IV-CENTRAL SCH ×10 (19:52)
[2017-07-06] MEDS: [UNRECOGNIZED DRUG - REMARK] PO SCH (19:53)
[2017-07-06] MEDS: ACETAMINOPHEN/HYDROcodone 325 MG/5 MG TAB PO PRN ×2 (19:54→23:45)
[2017-07-06] MEDS: ALBUMIN 25% INJ 50 ML IV SCH (23:45)
[2017-07-07] VITALS (14 sets, daily range): BP systolic 131–147; BP diastolic 63–96; PULSE 89–111; RESP 25–31; TEMP 98–98.5; O2SAT 88–100
[2017-07-07] MEDS: RESP: ALBUTEROL 2.5 MG/IPRATROPIUM 0.5 MG NEB (SCH) NEB ×7 (00:49→23:51)
[2017-07-07] MEDS: CEFEPIME INJ 1,000 MG in SODIUM CHLORIDE 0.9% INJ 100 ML IV SCH ×3 (02:10→17:58)
[2017-07-07] MEDS: INSULIN ASPART SUPPLEMENTAL SCALE SQ SCH ×6 (04:00→23:35)
[2017-07-07] MEDS: DILTIAZEM HCL 60 MG TAB PO SCH ×4 (04:57→23:35)
[2017-07-07] MEDS: PANTOPRAZOLE SODIUM 40 MG VIAL IV PUSH SCH ×2 (04:57→17:58)
[2017-07-07] MEDS: LORazepam 2 MG/ML VIAL IV PUSH PRN ×2 (04:57→20:48)
[2017-07-07 06:03] LABS: AUTOMATED NEUTROPHIL # 10.3 TH/MM3 (1.8-7.7); BASOPHIL % 0.2 % (0.0-2.0); LYMPH % 1.1 % (9.0-44.0); LYMPHOCYTE # 0.1 TH/MM3 (1.0-4.8); MEAN CORPUSCULAR HEMOGLOBIN 28.4 PG (27.0-34.0); MEAN CORPUSCULAR HGB CONC 31.9 % (32.0-36.0); MONO % 9.8 % (0.0-8.0); NEUT % 88.9 % (16.0-70.0); PLATELET COUNT 34 TH/MM3 (150-450); RED BLOOD COUNT 3.37 MIL/MM3 (4.50-5.90); RED CELL DISTRIBUTION WIDTH 16.8 % (11.6-17.2); WHITE BLOOD COUNT 11.5 TH/MM3 (4.0-11.0)
[2017-07-07 06:13] LABS: HEMO FLAGS AUTO DIFF
[2017-07-07 06:32] LABS: ALT (GPT) 67 U/L (12-78); ANION GAP 11 MEQ/L (5-15); AST (GOT) 62 U/L (15-37); BICARBONATE 24.8 MEQ/L (21.0-32.0); BLOOD UREA NITROGEN 32 MG/DL (7-18); CHLORIDE 108 MEQ/L (98-107); GLOMERULAR FILTRATION RATE 86 ML/MIN (>89); POTASSIUM 3.3 MEQ/L (3.5-5.1); SODIUM (NA) 144 MEQ/L (136-145)
[2017-07-07 06:34] LABS: ALKALINE PHOSPHATASE 553 U/L (45-117); TOTAL BILIRUBIN ADULT 3.3 MG/DL (0.2-1.0)
--- NOTE | 2017-07-07 06:49 | RADRPT ---
EXAM DATE/TIME: 07/07/2017 06:30 [place] COMPARISON: CHEST SINGLE AP, July 06, 2017, 3:52. INDICATIONS : Respiratory distress. MEDICAL HISTORY : Hypertension. Hypercholesterolemia. SURGICAL HISTORY : None. ENCOUNTER: Subsequent ACUITY: 1 week PAIN SCORE: Non-responsive. LOCATION: Bilateral chest FINDINGS: There has been interval extubation. Nasogastric tube remains in place. Left neck central line is stab le. Hazy bilateral primarily basilar pleuroparenchymal opacities persist, grossly unchanged. Cardiac contours are stable. CONCLUSION: Interval extubation. Otherwise stable chest. Luca Trinidad MD on July 07, 2017 at 6:47 Board Certified Radiologist. This report was verified electronically.
[2017-07-07] MEDS: POTASSIUM CHLOR 40 MEQ PREMIX 100 ML IV PRN (07:53)
[2017-07-07] MEDS ORDERED: fentaNYL CITRATE 250 MCG/5 ML AMP IV PUSH PRN (08:00)
[2017-07-07 08:25] LABS: BANDS 7 % (0-6); CORRECTED NUCLEATED RBC 5 /100 WBC (0-0); METAMYELOCYTES 1 % (0-1); MYELOCYTES 3 % (0-0); NEUTROPHIL # MANUAL DIFF 10.6 TH/MM3 (1.8-7.7); POLYS (SEG NEUTROPHILS) 81 % (16-70); WBC DIFF SAMPLE 100
[2017-07-07 08:26] LABS: HOWELL-JOLLY BODIES PRESENT (NONE SEEN); PLATELET ESTIMATE SMEAR LOW (NORMAL); PLATELET MORPHOLOGY ENLARGED (NORMAL)
[2017-07-07 08:28] LABS: SCAN/DIFF FINAL DIFF MANUAL
[2017-07-07] MEDS: COLLAGENASE OINT 30 GM TUBE TOPICAL SCH (09:00)
[2017-07-07] MEDS: POTASSIUM CHLORIDE 25 MEQ EFFERVESCENT TAB PO SCH (09:00)
[2017-07-07] MEDS: BUDESONIDE-FORMOTEROL 160/4.5 MCG INHALER INH SCH ×2 (09:00→21:00)
[2017-07-07] MEDS: methylPREDNISolone SOD SUCC 40 MG/1 ML VIAL IV PUSH SCH ×2 (09:23→20:48)
[2017-07-07] MEDS: BUMETANIDE INJ 1 MG/4 ML VIAL IV PUSH SCH ×3 (09:24→23:35)
[2017-07-07] MEDS: VANCOMYCIN 500 MG VIAL (FOR ORAL USE ONLY) NG SCH ×4 (09:24→20:49)
[2017-07-07] MEDS: METOCLOPRAMIDE HCL 10 MG/2 ML VIAL IV PUSH SCH ×3 (09:25→23:36)
[2017-07-07] MEDS: DIGOXIN 0.5 MG/2 ML VIAL IV PUSH SCH (09:25)
[2017-07-07] MEDS: metroNIDAZOLE 500 MG INJ 100 ML IV SCH ×3 (09:28→23:35)
[2017-07-07] MEDS ORDERED: BUMETANIDE INJ 1 MG/4 ML VIAL IV PUSH ONE (10:00)
[2017-07-07] MEDS: VANCOMYCIN IRRIGATION SCH (10:17)
[2017-07-07] MEDS: SODIUM CHLORIDE 0.9% IRRIGATION SCH (10:17)
[2017-07-07] MEDS: IRR IRRIGATION SCH (10:17)
[2017-07-07] MEDS: ALBUMIN 25% INJ 50 ML IV SCH ×2 (12:00→23:35)
--- NOTE | 2017-07-07 15:42 | HHI.CCPN ---
Subjective Remarks/Hospital Course The patient is a 67-year-old male with past medical history of hypertension, metastatic colon cancer, tobacco abuse, who, about 3 weeks ago underwent low anterior resection with low colorectal anastomosis, diverting ileostomy, and resection of a segment of the left ureter with ureteral anastomosis and double- J stent placement. He presented yesterday with 5 day history of abdominal discomfort and increasing weakness. No history of high output from ileostomy. He was admitted to the colorectal surgery for dehydration and probable UTI. He was placed on ciprofloxacin and IV hydration. According to Dr. Geiger's note it was difficult dissection/resection colon mass because of the pelvic sidewall adherence and the adherence to the left ureter. A portion of ureter was resected due to possibility of tumor infiltration, and Dr. Augustine Pelayo re- anastomosed the ureter and placed left-sided double-J stent. Also 1 cm hepatic metastasis in his liver that was excised. Hospitalist consultation was requested for medical management and evaluation of tachycardia today. He was seen by Dr. Jay and was placed on infusion of Cardizem for heart rate 140s. Patient became hypotensive with systolic blood pressure early 90s. Lab work showed WBC 14.5 with 44% bands, creat increase from 1.2 to 1.4 and severely increased lactate at 8 from admission lactate of 2.6. CT of the abdomen pelvis done yesterday showed probable small bowel ileus. I evaluated the patient in the ICU. He is tachycardic in 140s, hypotensive and systolic blood pressure in mid 80s. Clinically appears very dehydrated, an NG tube was placed with approximately 3 L of some coffee-ground output. ABG shows a base excess of -10 and bicarbonate 12. I have ordered 4 liter normal saline boluses start 1 amp of bicarbonate, discontinued the LR infusion, and started bicarb gtt. Discontinue ciprofloxacin, started Zosyn every 6 hours, vancomycin 1 g 1. His elevated lactic acid and bandemia most likely secondary to severe sepsis, ileus, and severe dehydration. Serial lactate is ordered SUBJ 06/19: Lactic acid remains elevated at 6.6 despite getting 9 L of crystalloid boluses in last 24 hours. Tachycardia has improved heart rate in 110s. Remains on vasopressin at 0.04 units/min. Urine output almost 1200 mL overnight, OGT initial output was almost 3 L when placed yesterday a.m. Overnight had 550 mL of greenish brown fluid output. EGD pending today rule out gastric ischemia per Dr. Romero. Apparently Flex sig was negative post op in Dr. Geiger's office 06/20: Developed A. fib with RVR. Heart rate 200. Hemodynamically unstable, synchronized cardioversion attempted by Dr. Morales 100 200 J. Given 3 g mag sulfate and 80 mEq KCl 1, 0.5 digoxin 1 and started on amiodarone and Giorgio- Synephrine. Intubated due to hemodynamic instability. Currently remains sedated. Currently on Giorgio-Synephrine 80 mcg/m, and amiodarone. CT chest abdomen pelvis again confirms gastric and small bowel distention/ileus. UO 1800 ml in 24 hours 06/21: Remains critically ill, intubated sedated, on 100 mcg/min neosynpehrine. HR better controlled. NG output 1500, UO >1.4L. Am labs pending. Ileostomy sample positive for C Diff on PO vanc IV Flagyl. 06/22: Remains intubated sedated. Urine output 3000 mL with Bumex. NGT [address] Geiger did colonoscopy which was normal. Ileoscopy showed pseudomembranous colitis. Currently on 200 mcg/min of neosynephrine. Afib with RVR HR in 140's 06/23: Remains intubated sedated, remains in atrial fibrillation with RVR. Still requiring high doses of Giorgio-Synephrine at 190 mcg/min. UO 2.5L. chest x- ray showed bilateral large effusions. KUB shows improving small bowel distention. WBC count is slightly improved 06/24: Unable to control HR. Repeat shock x3 today. remains in atrial fibrillation with RVR rates 160-170 intermittently. Remains on amiodarone but will discontinued due to elevation of liver enzymes AST 546 ALT 158. (GI notified). Start Cardizem infusion and also give Surjit 0.5 mg 1. Platelet count continues to drop from 67 to today 45. Hematology following will start of Argatroban today. Creatinine has slightly increased to 1.3 to will DC Bumex infusion 06/25: Patient remains intubated sedated critically ill. Heart rate controlled for the first time since atrial fibrillation started. Heart rate remains 80- 90. Urine output 1200 mL in 24 hours but BUN/creatinine increasing 44/1.7. I will hydrate with 50 mL/hr normal saline for 24 hours. Transaminitis increasing AST 1300 ALT 386. Ultrasound of the liver unremarkable GI following 06/26: PTT elevated due to Argatorban/Liver failure. Dr. Hulrey has DCd argatroban. SMILEY pending. Pl count is 21. Currently in sinus rhythm on Cardizem infusion. Not on any pressors. Creatinine improved to 1.2. Urine output adequate. Becomes very tachypneic on attempted CPAP. Discussed with Dr. Geiger Will Start Trickle Tube Feeds 06/27: no improvements. off pathway. thrombocytopenia persists. unable to wean from mechanical ventilation. neuro exam poor. will likely need trach. 06/28: platelets worse today. SMILEY not resulted yet. failing SBT and mental status poor. poor prognosis. will need trach and LTAC placement. 06/29: Tmax 101. Currently 99.6. Tolerating trickle tube feeds. Continues to fail spontaneous breathing trials. 06/30: Lasted 1 hour spontaneous breathing trial this AM. 2.5 hours this afternoon. Currently afebrile. Hemoglobin remained stable. 07/01: lasted 4 hours on SBT, except 15 of pressure support, so not ready clinically for extubation, and even after only 4 hours, tired out and became hypoxic and tachypneic. more awake today and following commands. will likely need tracheostomy. 07/02: new fever today, but wbc normal. per ID, will culture and observe, continue flagyl/PO vanc. otherwise no changes. no improvements. 07/03: pseudomonas in sputum and urine. increase in cough and secretions. ID following and added cefepime. still weak and failing SBTs for hypoxia and tachypnea. needs tracheostomy. will need long-term rehab and likely LTAC. 07/04: Wakes up easily, follows commands. On 5 mg/hr versed. CXR pending. UO adequate. Resume SBT. Significant weight gain. approx 15 kg up. Give Bumex 2 mg IV x1 Subjective 07/05: Patient is intubated sedated with 50 g per hour of fentanyl. Urine output 3 L in [address] on scheduled Bumex. Tolerating CPAP at 15/5. bring in Viibryd, which apparently patient had been on for long time. I have resumed it. 07/06: Tolerating CPAP 10/5 better today, Wakes up and following commands. Good UO with Bumex. Chest x-ray basilar opacities essentially unchanged. Increase IV Bumex to 1 mg every 12 07/07: Extubated yesterday tolerating well. Slightly tachypneic but maintain oxygen saturation and no subjective shortness of breath. Urine output remains excellent on Bumex, 2.9L in 24 hours Objective Vital Signs Date Time Temp Pulse Resp B/P (MAP) Pulse Ox O2 Delivery O2 Flow Rate FiO2 07/07/17 06:00 90 07/07/17 04:00 98.3 31 131/72 (91) 92 07/06/17 20:19 Nasal Cannula 4.50 07/06/17 12:00 35 Intake and Output 07/07/17 07/07/17 07/08/17 08:00 16:00 00:00 Intake Total 150 ml Output Total 950 ml Balance -800 ml Result Diagram: 07/07/1751407/07/17 05 Imaging Last Impressions Chest X-Ray 06/30/17 06 Signed Impressions: Service Date/Time: June 03:02 - CONCLUSION: 1. Improving bibasilar densities. Sarwat Suarez MD Abdomen X-Ray 06/27/17 06 Signed Impressions: Service Date/Time: Tuesday, June 27, 2017 04:29 - CONCLUSION: Stable abdomen. Sarwat Suarez MD Liver Ultrasound 06/24/17 0000 Signed Impressions: Service Date/Time: Saturday, June 24, 2017 16:38 - CONCLUSION: 1. Small volume ascites. 2. Small right effusion. Pierce Ospina Jr., MD Upper Extremity Ultrasound 06/23/17 0000 Signed Impressions: Service Date/Time: June 20:03 - CONCLUSION: Noncompressibility right cephalic vein and left basilic vein consistent with venous thrombosis Trav Hsieh MD Lower Extremity Ultrasound 06/23/17 0000 Signed Impressions: Service Date/Time: June 20:16 - CONCLUSION: Normal examination. No evidence DVT Trav Hsieh MD Chest CT 06/20/17 0000 Signed Impressions: Service Date/Time: Tuesday, June 20, 2017 07:42 - CONCLUSION: 1. Bilateral effusions and consolidative changes in both lung bases. Bao Lora MD Abdomen/Pelvis CT 06/20/17 0000 Signed Impressions: Service Date/Time: Tuesday, June 20, 2017 07:39 - CONCLUSION: 1. Dilated stomach and multiple dilated loops of small bowel, likely ileus. 2. No definite gastric volvulus. 3. Fat containing right inguinal hernia which also contains small portion of the urinary bladder and minimal fluid. 4. Left-sided nephroureteral stent in good position. 5. Bibasilar consolidation and small pleural effusions. Sarwat Suarez MD Objective Remarks GENERAL: 67-year-old male ill appearing, on NC SKIN: Warm and dry. HEENT: Extraocular muscles intact. NECK: The neck is supple. LIJ central line in place CHEST: Few coarse rhonchi Equal bilaterally. Diminished at bases CVS: Tachycardia, IR. ABDOMEN: Abdomen is slightly distended, soft. Incision appears healing well. Ileostomy is functioning well. NGT in place EXTREMITIES: No pedal edema or cyanosis NEURO: Alert awake. Moves all extremities, following commands. No focal deficits. Date of Insertion: Jun 18, 2017 Side: Left Location: Internal A/P Assessment and Plan PLAN: NEURO: - PRN fentanyl for pain and anxiety. Use PRN Ativan - Resumed Viibryd home med - Goal of RASS -0 to 1 - Daily sedation vacation RESP: Acute hypoxemic respiratory failure HCAP Pseudomonas Pneumonia COPD with exacerbation - Extubated 07/06/17. Tolerating well - Albuterol/ipratropium every 4 hours with albuterol aerosols every 2 hours PRN. EzPAP Acapella, IS - Symbicort Spirva-07/07/17 - Started IV solumedrol 40 q12 on 07/04/17-reduce to 20 q12 CV: Atrial fibrillation with RVR - now rate controlled Fluid overload - Cardioverted several times without success and amiodarone started for A. fib with RVR - Amio DCd 06/24 due to Liver enzyme elevation. Placed on on Cardizem infusion and Digoxin. still back in afib with variable rate. very resistant afib and difficult to control. - On PO Cardizem 60 q6 and weaned off gtt - IV Heparin discontinued due to HIT screen positive hematology consulted. Argatroban DCd 06/[address] Hurley SMILEY negative. On Lovenox now - s/p Normal saline IV fluids 8L boluses on 06/18/17. Now off maintenance fluid - Scheduled Bumex 1 mg IV q8h - 2D Echo normal LV function GI: s/p Left colectomy with colorectal anastomosis, diverting ileostomy, wedge resection of liver metastasis C Diff enteritis/ileitis Transaminitis Hypernatremia - TPN at 50 cc an hour with lipids daily. Start PO diet per speech recommendation - Pantoprazole 40 mg IV twice a day - Transaminitis most likely secondary to amiodarone and TPN and hypotension, interval worsening AST 1300, ALT 386, now improved, near normal - Elevated bilirubin and alkaline phosphatase most likely from Cholestasis secondary to TPN - Gastroenterology Dr. Saldana. EGD 06/19. Evidence of esophagitis, and erythematous gastritis in the gastric body and gastric antrum - C Diff positive from ileostomy sample indicating C Diff enteritis. On PO vanc and IV Flagyl - Dr. Geiger 06/22. Colonoscopy normal. Ileoscopy severe pseudomembranous ileitis - IV metoclopramide [address] abdomen pelvis and KUB shows small bowel ileus., KUB 06/23 improving ileus - Continue Alvimopan 12 mg every 12 hours for ileus : s/p Partial resection of the left ureter with anastomosis and placement of double-J stent - Monitor renal function closely. Han catheter. UO adequate - Bumex, 1 mg IV q8 ID: - ID Dr. Espinoza. PO Vancomycin and IV metronidazole for C diff enteritis - F/u blood and urine culture -negative to date - Cefepime started 07/03 for PSAE in sputum HEME: Thrombocytopenia likely consumptive secondary to sepsis, hit screen positive SMILEY negative Normocytic anemia - Monitor CBC, CMP/ Plt remain low, multifactorial from severe sepsis, medication, and previous pelvic irradiation - HIT ruled out. Slowly improving plt after starting steroid for COPD - Argatroban started 06/24/17, DCd 06/26/[address] Hurley. According to Dr. Hurley elevated PTT secondary to decreased liver clearance of argatroban. Back on Lovenox. ENDO: Hypophosphatemia - Electrolyte replacement per protocol - Sliding-scale insulin to maintain euglycemia PROPH: -Bilateral lower extremity SCDs. Currently on enoxaparin DVT dose, IV pantoprazole 40 q12 LINES: - Left IJ central line, radial art line Critically ill stable. Multi organ involvement makes diagnosis still guarded, but overall improving with IV steroids for COPD exacerbation and diuresis. Extubated 07/06 Level 3 Shiva Segovia MD Jul 07, 2017 15:42
--- NOTE | 2017-07-07 16:03 | PD.ONC.PN ---
Subjective Subjective Remarks Pt seen and examined, he was extubated and is doing well on Nasal canula. There have been no acute cardiopulmonary events, his PLT counts are improving. He verbalizes no complaints. Objective Data Date Time Temp Pulse Resp B/P (MAP) Pulse Ox O2 Delivery O2 Flow Rate FiO2 07/07/17 08:00 102 07/07/17 06:00 90 07/07/17 04:00 98.3 94 31 131/72 (91) 92 07/07/17 04:00 94 07/07/17 02:00 98 07/07/17 00:00 98.3 99 25 133/63 (86) 91 07/07/17 00:00 99 07/06/17 22:00 88 07/06/17 20:19 94 Nasal Cannula 4.50 07/06/17 20:00 98.6 84 25 122/63 (82) 92 07/06/17 20:00 84 07/06/17 18:00 90 07/06/17 17:54 92 07/07/17 07/07/17 07/07/17 07:00 15:00 23:00 Intake Total 150 ml Output Total 950 ml Balance -800 ml Result Diagram: 07/07/17 0515 07/07/17 0515 Laboratory Results Laboratory Tests Test 07/07/17 05:15 White Blood Count 11.5 TH/MM3 Red Blood Count 3.37 MIL/MM3 Hemoglobin 9.6 GM/DL Hematocrit 30.0 % Mean Corpuscular Volume 89.0 FL Mean Corpuscular Hemoglobin 28.4 PG Mean Corpuscular Hemoglobin Concent 31.9 % Red Cell Distribution Width 16.8 % Platelet Count 34 TH/MM3 Mean Platelet Volume 10.9 FL Neutrophils (%) (Auto) 88.9 % Lymphocytes (%) (Auto) 1.1 % Monocytes (%) (Auto) 9.8 % Eosinophils (%) (Auto) 0.0 % Basophils (%) (Auto) 0.2 % Neutrophils # (Auto) 10.3 TH/MM3 Lymphocytes # (Auto) 0.1 TH/MM3 Monocytes # (Auto) 1.1 TH/MM3 Eosinophils # (Auto) 0.0 TH/MM3 Basophils # (Auto) 0.0 TH/MM3 CBC Comment AUTO DIFF Differential Total Cells Counted 100 Neutrophils % (Manual) 81 % Band Neutrophils % 7 % Lymphocytes % 2 % Monocytes % 6 % Neutrophils # (Manual) 10.6 TH/MM3 Metamyelocytes 1 % Myelocytes 3 % Nucleated Red Blood Cells 5 /100 WBC Differential Comment FINAL DIFF MANUAL Platelet Estimate LOW Platelet Morphology Comment ENLARGED [place] Bodies PRESENT Blood Urea Nitrogen 32 MG/DL Creatinine 0.88 MG/DL Random Glucose 130 MG/DL Total Protein 6.3 GM/DL Albumin 1.9 GM/DL Calcium Level 7.7 MG/DL Magnesium Level 2.0 MG/DL Alkaline Phosphatase 553 U/L Aspartate Amino Transf (AST/SGOT) 62 U/L Alanine Aminotransferase (ALT/SGPT) 67 U/L Total Bilirubin 3.3 MG/DL Sodium Level 144 MEQ/L Potassium Level 3.3 MEQ/L Chloride Level 108 MEQ/L Carbon Dioxide Level 24.8 MEQ/L Anion Gap 11 MEQ/L Estimat Glomerular Filtration Rate 86 ML/MIN Imaging Studies Last 24 hours Impressions Chest X-Ray 07/07/17 0000 Signed Impressions: Service Date/Time: July 06:30 - CONCLUSION: Interval extubation. Otherwise stable chest. Luca Trinidad MD Administered Medications Medications (Trade) Dose Ordered Sig/[place] Route PRN Reason Start Time Stop Time Status Last Admin Dose Admin Acetaminophen/ Hydrocodone Bitart ([place] 5-325 Mg) 1 tab Q4H PRN PO PAIN SCALE 1 TO 5 06/17/17 22:00 06/17/17 22:02 Acetaminophen/ Hydrocodone Bitart ([place] 5-325 Mg) 2 tab Q4H PRN PO PAIN SCALE 6 TO 10 06/17/17 22:00 07/06/17 23:45 Ondansetron HCl (Zofran Inj) 4 mg Q4H PRN IV PUSH NAUSEA/VOMITING 06/17/17 22:00 06/18/17 09:45 Miscellaneous Information Patient in critical care unit? Ass... [id number] .XX 06/18/17 05:45 06/18/17 05:45 Metoclopramide HCl (Reglan Inj) 5 mg Q8H IV PUSH 06/18/17 17:00 07/07/17 09:25 Potassium Chloride 100 ml @ 50 mls/hr Q2H PRN IV For Potassium 2.8 - 3.2 mEq/L 06/19/17 07:45 07/07/17 07:53 Potassium Chloride 100 ml @ 50 mls/hr Q2H PRN IV For Potassium 3.3 - 3.5 mEq/L 06/19/17 07:45 06/22/17 17:22 Sodium Phosphate 30 mmol/Sodium Chloride 250 ml @ 42 mls/hr UNSCH PRN IV For Phosphorus < 2.5 mg/dL 06/19/17 07:45 07/01/17 06:24 Fat Emulsion Intravenous 250 ml @ 10 mls/hr Q24H IV-CENTRAL 06/19/17 20:00 07/06/17 19:52 Insulin Aspart (NovoLOG SUPPLEMENTAL SCALE) 1 Q4HR SQ 06/19/17 12:00 07/06/17 08:28 Sodium Chloride 40 meq/Sodium Acetate 59 meq/ Potassium Chloride 40 meq/ Sodium Phosphate 40 meq/Magnesium Chloride 10 meq/ Calcium Chloride 9 meq/ Multivitamins 10 ml/Folic Acid 1 mg/Insulin Human Regular 40 units/ Amino Acids/ Dextrose 2,091.7937 ml @ 50 mls/hr Q24H IV-CENTRAL 06/19/17 20:00 07/06/17 19:52 Vancomycin HCl (VANCOMYCIN for oral use only) 500 mg QID NG 06/19/17 18:00 07/07/17 14:35 Chlorhexidine Gluconate (Peridex 0.12% Liq) 15 ml BID@08,20 MT 06/20/17 08:00 07/06/17 08:16 Metronidazole 100 ml @ 100 mls/hr Q8H IV 06/20/17 09:00 07/07/17 09:28 Acetaminophen (Tylenol 650 Mg/ 20 ml Liq) 650 mg Q6H PRN PO fever>100.5 06/20/17 16:30 07/04/17 12:23 Pantoprazole Sodium (Protonix Inj) 40 mg Q12H IV PUSH 06/21/17 07:00 07/07/17 04:57 Digoxin (Lanoxin Inj) 0.125 mg DAILY IV PUSH 06/25/17 13:30 07/07/17 09:25 Albuterol Sulfate (Albuterol Neb) 2.5 mg Q2HR NEB PRN NEB DYSPNEA 06/29/17 14:30 07/05/17 08:44 Cefepime HCl 1000 mg/Sodium Chloride 100 ml @ 200 mls/hr Q8H IV 07/03/17 11:00 07/07/17 02:10 Potassium Bicarb/ Potassium Chloride (K-Lyte Cl Eff) 25 meq DAILY PO 07/05/17 12:00 07/06/17 08:15 Non-Formulary Medication 40 mg HS PO 07/05/17 21:00 07/06/17 19:53 Diltiazem HCl (Cardizem) 60 mg Q6HR PO 07/05/17 12:45 07/07/17 14:35 Albuterol/ Ipratropium (Duoneb Neb) 1 ampule Q4HR NEB NEB 07/05/17 16:00 07/07/17 15:45 Lorazepam (Ativan Inj) 1 mg Q4H PRN IV PUSH anxiety 07/05/17 13:00 07/07/17 04:57 Albumin Human 50 ml @ 60 mls/hr Q12H IV 07/07/17 00:00 07/08/17 11:14 07/06/17 23:45 Collagenase (Santyl Oint) 1 applic DAILY TOPICAL 07/07/17 09:00 07/07/17 09:00 Methylprednisolone Sodium Succinate (SoluMEDROL INJ) 20 mg Q12HR IV PUSH 07/07/17 09:00 07/07/17 09:23 Objective Remarks GENERAL APPEARANCE: Mr. Armendariz is a middle-aged/elderly male. He is laying in bed. He is responsive. He is intubated, ventilated and he is responsive and seems alert. He is moving all 4 limbs spontaneously. HEENT: Head atraumatic, normocephalic. Conjunctivae are pale. Sclerae are anicteric, EOMI, PERRLA, oral exam no pharyngeal erythema. NECK: No palpable cervical or supraclavicular lymphadenopathy. RESPIRATORY: Good air movement bilaterally. No added breath sounds. He has prolonged expiratory phase. He is initiating multiple spontaneous breaths. CARDIOVASCULAR: Irregular, tachycardiac, S1 S2, no obvious murmurs, rubs or gallops. ABDOMEN: The belly is soft. An ileostomy bag is noted containing liquid stools. A well-healing laparotomy incision in the midline is appreciated. The abdomen does not appear to be distended, there appears to be no significant increase in tympany on percussion. There are no signs of acute abdomen. LOWER EXTREMITIES: No pretibial edema, no calf tenderness. Upper extremities: Right upper extremity with edema. MUSCULOSKELETAL: There appears to be muscle atrophy. RAT CULTURIST: No spontaneous movement of the limbs. Assessment/Plan Assessment Mr. Armendariz is a 67-year-old male who was recently diagnosed with metastatic adenocarcinoma of the rectosigmoid colon and had resection of a metastatic deposit to the liver. He is status post primary surgical resection (3-4 weeks ago) as well as wedge resection of a metastatic deposit to the liver and now has C difficile colitis. He has thrombocytopenia with thrombosis to the cephalic and brachial veins. Admitted to colorectal surgery service initially for weakness/abdominal pain. Then 06/18 became tachy and hypotensive. had elevated lactic acid and bandemia. sepsis suspected. Training Program Manager was consulted. on 06/20 was intubated d /t hemodynamic instability. platelets also started falling on 06/20. Plan 1. Platelet count is up to 34K today. 2. Anticoagulation on hold for now. 3. Will discuss treatment for his metastatic colon cancer after he recovers from his acute illness. 4. Monitor CBC, monitor for bleeding. Faraz Ryan MD Jul 07, 2017 16:03
--- NOTE | 2017-07-07 16:11 | HHI.PR ---
Subjective Remarks Pt extubated yesterday. Doing well. Objective Vital Signs Date Time Temp Pulse Resp B/P (MAP) Pulse Ox O2 Delivery O2 Flow Rate FiO2 07/07/17 08:00 102 07/07/17 06:00 90 07/07/17 04:00 98.3 94 31 131/72 (91) 92 07/07/17 04:00 94 07/07/17 02:00 98 07/07/17 00:00 98.3 99 25 133/63 (86) 91 07/07/17 00:00 99 07/06/17 22:00 88 07/06/17 20:19 94 Nasal Cannula 4.50 07/06/17 20:00 98.6 84 25 122/63 (82) 92 07/06/17 20:00 84 07/06/17 18:00 90 07/06/17 17:54 92 I/O 07/06/17 07/06/17 07/06/17 07/07/17 07/07/17 07/07/17 07:00 15:00 23:00 07:00 15:00 23:00 Intake Total 539 ml 316 ml 1743 ml 150 ml Output Total 900 ml 2150 ml 950 ml Balance -361 ml 316 ml -407 ml -800 ml IV Total 100 ml 316 ml 450 ml 150 ml Tube Feeding 319 ml 364 ml TPN/PPN 607 ml Lipid 122 ml Other 120 ml 200 ml Output Urine Total 750 ml 2000 ml 900 ml Stool Total 150 ml 150 ml 50 ml Result Diagram: 07/07/17 0515 07/07/1715 Objective Remarks VS-S Rate controlled Gen: Pt comfortable Abd: Soft. Flat. Wound healed. Stoma working. I&Os: OK Assessment and Plan Assessment and Plan Decubitus Extubated-comfortable Decubitus may need debridement D/C N/G. Pureed foods Luca Geiger MD Jul 07, 2017 16:11
[2017-07-07] MEDS: FAT EMULSION 20% INJ 250 ML (@10 mls/hr) IV-CENTRAL SCH ×2 (17:55→20:47)
[2017-07-07] MEDS: CHLORHEXIDINE 0.12% (ORAL KIT) 15 ML CUP MT SCH (19:42)
[2017-07-07] MEDS: SODIUM CHLORIDE IV-CENTRAL SCH ×10 (20:47)
[2017-07-07] MEDS: SODIUM ACETATE IV-CENTRAL SCH ×10 (20:47)
[2017-07-07] MEDS: [UNRECOGNIZED DRUG - OTHER] IV-CENTRAL SCH ×10 (20:47)
[2017-07-07] MEDS: ACETAMINOPHEN/HYDROcodone 325 MG/5 MG TAB PO PRN (20:48)
[2017-07-07] MEDS: [UNRECOGNIZED DRUG - REMARK] PO SCH (20:49)
[2017-07-08] VITALS (14 sets, daily range): BP systolic 135–166; BP diastolic 73–84; PULSE 96–109; RESP 25–36; TEMP 98–98.4; O2SAT 91–100
[2017-07-08] MEDS: ACETAMINOPHEN/HYDROcodone 325 MG/5 MG TAB PO PRN ×2 (01:05→19:51)
[2017-07-08] MEDS: LORazepam 2 MG/ML VIAL IV PUSH PRN ×2 (01:06→19:52)
[2017-07-08] MEDS: CEFEPIME INJ 1,000 MG in SODIUM CHLORIDE 0.9% INJ 100 ML IV SCH ×3 (02:27→18:57)
[2017-07-08] MEDS: RESP: ALBUTEROL 2.5 MG/IPRATROPIUM 0.5 MG NEB (SCH) NEB ×6 (02:52→23:59)
[2017-07-08] MEDS: INSULIN ASPART SUPPLEMENTAL SCALE SQ SCH ×4 (04:00→23:15)
[2017-07-08] MEDS: DILTIAZEM HCL 60 MG TAB PO SCH ×3 (05:02→18:57)
[2017-07-08] MEDS: PANTOPRAZOLE SODIUM 40 MG VIAL IV PUSH SCH ×2 (05:02→18:56)
[2017-07-08 06:45] LABS: HEMATOCRIT 29.6 % (39.0-51.0); MEAN CELL VOLUME 89.4 FL (80.0-100.0); MEAN CORPUSCULAR HEMOGLOBIN 28.6 PG (27.0-34.0); PLATELET COUNT 41 TH/MM3 (150-450); RED BLOOD COUNT 3.31 MIL/MM3 (4.50-5.90); RED CELL DISTRIBUTION WIDTH 16.7 % (11.6-17.2); REVIEW FLAG FINAL; WHITE BLOOD COUNT 11.4 TH/MM3 (4.0-11.0)
[2017-07-08] MEDS: CHLORHEXIDINE 0.12% (ORAL KIT) 15 ML CUP MT SCH ×2 (08:00→19:18)
[2017-07-08] MEDS: COLLAGENASE OINT 30 GM TUBE TOPICAL SCH (08:32)
[2017-07-08] MEDS: methylPREDNISolone SOD SUCC 40 MG/1 ML VIAL IV PUSH SCH ×2 (08:33→19:52)
[2017-07-08] MEDS: VANCOMYCIN 500 MG VIAL (FOR ORAL USE ONLY) NG SCH ×4 (08:33→19:52)
[2017-07-08] MEDS: POTASSIUM CHLORIDE 25 MEQ EFFERVESCENT TAB PO SCH (08:35)
[2017-07-08] MEDS: METOCLOPRAMIDE HCL 10 MG/2 ML VIAL IV PUSH SCH ×2 (08:35→18:56)
[2017-07-08] MEDS: BUMETANIDE INJ 1 MG/4 ML VIAL IV PUSH SCH ×2 (08:36→18:54)
[2017-07-08] MEDS: DIGOXIN 0.5 MG/2 ML VIAL IV PUSH SCH (08:37)
[2017-07-08] MEDS: metroNIDAZOLE 500 MG INJ 100 ML IV SCH (08:44)
--- NOTE | 2017-07-08 10:10 | HHI.IDPN ---
Note Infectious Disease Note Patient is awake and alert. On nasal canula. Responsive. Afebrile. No complaints. Admitted to the hospital with weakness, abdominal pain and nausea. The patient is status post anterior resection of colon and rectal areas and anastomosis along with a diverting ileostomy and also resection of a segment of left ureter with ureteral anastomosis and double-J stent placement three weeks prior. PAST MEDICAL HISTORY: 1. Hypertension. 2. Left knee surgery. 3. Metastatic colon cancer status post resection and coloanal anastomosis and also resection and re-anastomosis of the left ureter with double-J stent placement. ALLERGIES: 1. CODEINE. MEDICATIONS: 1. Metronidazole. 2. PO Vancomycin. 3. Cefepime. SOCIAL HISTORY: . Positive tobacco use. No alcohol. No illicit drug use. OBJECTIVE: Vital Signs Date Time Temp Pulse Resp B/P (MAP) Pulse Ox O2 Delivery O2 Flow Rate FiO2 07/08/17 06:00 99 07/08/17 04:00 98.0 106 25 150/80 (103) 95 07/08/17 04:00 106 07/08/17 02:00 100 07/08/17 00:00 103 07/08/17 00:00 98.3 103 35 135/77 (96) 98 07/07/17 23:52 99 Nasal Cannula 2.00 07/07/17 22:00 104 07/07/17 20:30 97 Nasal Cannula 6.00 07/07/17 20:00 97 07/07/17 20:00 98.0 97 28 133/73 (93) 100 07/07/17 18:00 98 07/07/17 16:00 98.2 101 28 134/88 (103) 07/07/17 16:00 98 07/07/17 14:00 104 07/07/17 12:00 98.5 103 31 144/96 (112) 88 07/07/17 12:00 102 Laboratory Tests Test 07/07/17 05:15 07/08/17 05:00 White Blood Count 11.5 TH/MM3 11.4 TH/MM3 Red Blood Count 3.37 MIL/MM3 3.31 MIL/MM3 Hemoglobin 9.6 GM/DL 9.5 GM/DL Hematocrit 30.0 % 29.6 % Mean Corpuscular Volume 89.0 FL 89.4 FL Mean Corpuscular Hemoglobin 28.4 PG 28.6 PG Mean Corpuscular Hemoglobin Concent 31.9 % 32.0 % Red Cell Distribution Width 16.8 % 16.7 % Platelet Count 34 TH/MM3 41 TH/MM3 Mean Platelet Volume 10.9 FL 11.2 FL Neutrophils (%) (Auto) 88.9 % Lymphocytes (%) (Auto) 1.1 % Monocytes (%) (Auto) 9.8 % Eosinophils (%) (Auto) 0.0 % Basophils (%) (Auto) 0.2 % Neutrophils # (Auto) 10.3 TH/MM3 Lymphocytes # (Auto) 0.1 TH/MM3 Monocytes # (Auto) 1.1 TH/MM3 Eosinophils # (Auto) 0.0 TH/MM3 Basophils # (Auto) 0.0 TH/MM3 CBC Comment AUTO DIFF Differential Total Cells Counted 100 Neutrophils % (Manual) 81 % Band Neutrophils % 7 % Lymphocytes % 2 % Monocytes % 6 % Neutrophils # (Manual) 10.6 TH/MM3 Metamyelocytes 1 % Myelocytes 3 % Nucleated Red Blood Cells 5 /100 WBC Differential Comment FINAL DIFF MANUAL Platelet Estimate LOW Platelet Morphology Comment ENLARGED [place] Bodies PRESENT Laboratory Tests Test 07/07/17 05:15 Blood Urea Nitrogen 32 MG/DL Creatinine 0.88 MG/DL Random Glucose 130 MG/DL Total Protein 6.3 GM/DL Albumin 1.9 GM/DL Calcium Level 7.7 MG/DL Magnesium Level 2.0 MG/DL Alkaline Phosphatase 553 U/L Aspartate Amino Transf (AST/SGOT) 62 U/L Alanine Aminotransferase (ALT/SGPT) 67 U/L Total Bilirubin 3.3 MG/DL Sodium Level 144 MEQ/L Potassium Level 3.3 MEQ/L Chloride Level 108 MEQ/L Carbon Dioxide Level 24.8 MEQ/L Anion Gap 11 MEQ/L Estimat Glomerular Filtration Rate 86 ML/MIN Microbiology Date/Time Source Procedure Growth Status 07/02/17 18:54 Blood Peripheral Aerobic Blood Culture - Preliminary NO GROWTH IN 3 DAYS Resulted 07/02/17 18:54 Blood Peripheral Anaerobic Blood Culture - Preliminary NO GROWTH IN 3 DAYS Resulted 07/02/17 18:49 Blood Peripheral Aerobic Blood Culture - Preliminary NO GROWTH IN 3 DAYS Resulted 07/02/17 18:49 Blood Peripheral Anaerobic Blood Culture - Preliminary NO GROWTH IN 3 DAYS Resulted 07/02/17 17:00 Sputum Endotracheal Gram Stain - Final Complete 07/02/17 17:00 Sputum Culture - Final Pseudomonas Aeruginosa Complete 07/02/17 15:45 Urine Clean Catch Urine Culture - Final Pseudomonas Aeruginosa Complete IMAGING: Chest X-Ray 07/07/17 0000 Signed Impressions: Service Date/Time: July 06:30 - CONCLUSION: Interval extubation. Otherwise stable chest. Luca Trinidad MD Chest X-Ray 07/05/17 0600 Signed Impressions: Service Date/Time: Wednesday, July 05, 2017 03:52 - CONCLUSION: Stable chest appearance Luca Trinidad MD Chest X-Ray 07/04/17 0000 Signed Impressions: Service Date/Time: Tuesday, July 04, 2017 07:15 - CONCLUSION: 1. Bibasilar patchiness consistent with atelectasis and/or infiltrates. 2. Small bilateral pleural effusions. 3. Multiple tubes and lines are stable. Yefri Israel MD Chest X-Ray 07/03/17 0000 Signed Impressions: Service Date/Time: Monday, July 03, 2017 12:15 - CONCLUSION: No significant change. Norman Mitchell MD PHYSICAL EXAMINATION: GENERAL: No acute distress. HEENT: No icterus. Oropharynx with dry mucosa. NECK: Supple. LUNGS: Basilar rhonchi. Good air movement. HEART: Regular S1-S2 without murmurs, rubs or gallops. ABDOMEN: Positive bowel sounds. Soft. EXTREMITIES: No clubbing or cyanosis, edema. SKIN: No rash. NEUROLOGIC: Nonfocal. IMPRESSION: 1. Severe sepsis/ Bandemia. Status post recent surgery for rectal cancer and recent ureteral resection and double J ureteral stent. 2. C difficile colitis. Pseudomembranous enteritis/sepsis. 3. Acute respiratory failure. 4. Pseudomonas pneumonia and UTI. 5. Leukocytosis. Improved. 6. Elevated LFT's. Appears stable. RECOMMENDATIONS: 1. Stop Flagyl IV. 2. Continue PO Vancomycin. 3. Continue Cefepime. 4. Monitor temps. El Espinoza MD Jul 08, 2017 10:10
--- NOTE | 2017-07-08 10:39 | HHI.PR ---
Subjective Remarks Pt extubated yesterday. Doing well. Comfortable. Tolerating PO Objective Vital Signs Date Time Temp Pulse Resp B/P (MAP) Pulse Ox O2 Delivery O2 Flow Rate FiO2 07/08/17 06:00 99 07/08/17 04:00 98.0 106 25 150/80 (103) 95 07/08/17 04:00 106 07/08/17 02:00 100 07/08/17 00:00 103 07/08/17 00:00 98.3 103 35 135/77 (96) 98 07/07/17 23:52 99 Nasal Cannula 2.00 07/07/17 22:00 104 07/07/17 20:30 97 Nasal Cannula 6.00 07/07/17 20:00 97 07/07/17 20:00 98.0 97 28 133/73 (93) 100 07/07/17 18:00 98 07/07/17 16:00 98.2 101 28 134/88 (103) 07/07/17 16:00 98 07/07/17 14:00 104 07/07/17 12:00 98.5 103 31 144/96 (112) 88 07/07/17 12:00 102 I/O 07/07/17 07/07/17 07/07/17 07/08/17 07/08/17 07/08/17 07:00 15:00 23:00 07:00 15:00 23:00 Intake Total 150 ml 3180 ml 250 ml Output Total 950 ml 4300 ml 2200 ml Balance -800 ml -1120 ml -1950 ml Intake Oral 480 ml IV Total 150 ml 2700 ml 250 ml Output Urine Total 900 ml 3700 ml 2100 ml Stool Total 50 ml 600 ml 100 ml Result Diagram: 07/08/17 0500 07/07/17 0515 Objective Remarks VS-S Rate controlled Gen: Pt comfortable Abd: Soft. Flat. Wound healed. Stoma working. I&Os: OK Assessment and Plan Assessment and Plan Decubitus Extubated-comfortable Decubitus may need debridement Pureed foods OOB when able Will need inpatient rehab Luca Geiger MD Jul 08, 2017 10:39
[2017-07-08 10:45] LABS: ANION GAP 7 MEQ/L (5-15); AST (GOT) 64 U/L (15-37); BICARBONATE 28.8 MEQ/L (21.0-32.0); BLOOD UREA NITROGEN 29 MG/DL (7-18); CHLORIDE 109 MEQ/L (98-107); GLOMERULAR FILTRATION RATE 100 ML/MIN (>89); POTASSIUM 3.3 MEQ/L (3.5-5.1); SODIUM (NA) 145 MEQ/L (136-145)
[2017-07-08 10:48] LABS: ALKALINE PHOSPHATASE 552 U/L (45-117); ALT (GPT) 67 U/L (12-78); TOTAL BILIRUBIN ADULT 3.8 MG/DL (0.2-1.0)
--- NOTE | 2017-07-08 12:13 | HHI.CCPN ---
Subjective Remarks/Hospital Course The patient is a 67-year-old male with past medical history of hypertension, metastatic colon cancer, tobacco abuse, who, about 3 weeks ago underwent low anterior resection with low colorectal anastomosis, diverting ileostomy, and resection of a segment of the left ureter with ureteral anastomosis and double- J stent placement. He presented yesterday with 5 day history of abdominal discomfort and increasing weakness. No history of high output from ileostomy. He was admitted to the colorectal surgery for dehydration and probable UTI. He was placed on ciprofloxacin and IV hydration. According to Dr. Geiger's note it was difficult dissection/resection colon mass because of the pelvic sidewall adherence and the adherence to the left ureter. A portion of ureter was resected due to possibility of tumor infiltration, and Dr. Augustine Pelayo re- anastomosed the ureter and placed left-sided double-J stent. Also 1 cm hepatic metastasis in his liver that was excised. Hospitalist consultation was requested for medical management and evaluation of tachycardia today. He was seen by Dr. Jay and was placed on infusion of Cardizem for heart rate 140s. Patient became hypotensive with systolic blood pressure early 90s. Lab work showed WBC 14.5 with 44% bands, creat increase from 1.2 to 1.4 and severely increased lactate at 8 from admission lactate of 2.6. CT of the abdomen pelvis done yesterday showed probable small bowel ileus. I evaluated the patient in the ICU. He is tachycardic in 140s, hypotensive and systolic blood pressure in mid 80s. Clinically appears very dehydrated, an NG tube was placed with approximately 3 L of some coffee-ground output. ABG shows a base excess of -10 and bicarbonate 12. I have ordered 4 liter normal saline boluses start 1 amp of bicarbonate, discontinued the LR infusion, and started bicarb gtt. Discontinue ciprofloxacin, started Zosyn every 6 hours, vancomycin 1 g 1. His elevated lactic acid and bandemia most likely secondary to severe sepsis, ileus, and severe dehydration. Serial lactate is ordered SUBJ 06/19: Lactic acid remains elevated at 6.6 despite getting 9 L of crystalloid boluses in last 24 hours. Tachycardia has improved heart rate in 110s. Remains on vasopressin at 0.04 units/min. Urine output almost 1200 mL overnight, OGT initial output was almost 3 L when placed yesterday a.m. Overnight had 550 mL of greenish brown fluid output. EGD pending today rule out gastric ischemia per Dr. Romero. Apparently Flex sig was negative post op in Dr. Geiger's office 06/20: Developed A. fib with RVR. Heart rate 200. Hemodynamically unstable, synchronized cardioversion attempted by Dr. Morales 100 200 J. Given 3 g mag sulfate and 80 mEq KCl 1, 0.5 digoxin 1 and started on amiodarone and Giorgio- Synephrine. Intubated due to hemodynamic instability. Currently remains sedated. Currently on Giorgio-Synephrine 80 mcg/m, and amiodarone. CT chest abdomen pelvis again confirms gastric and small bowel distention/ileus. UO 1800 ml in 24 hours 06/21: Remains critically ill, intubated sedated, on 100 mcg/min neosynpehrine. HR better controlled. NG output 1500, UO >1.4L. Am labs pending. Ileostomy sample positive for C Diff on PO vanc IV Flagyl. 06/22: Remains intubated sedated. Urine output 3000 mL with Bumex. NGT [address] Geiger did colonoscopy which was normal. Ileoscopy showed pseudomembranous colitis. Currently on 200 mcg/min of neosynephrine. Afib with RVR HR in 140's 06/23: Remains intubated sedated, remains in atrial fibrillation with RVR. Still requiring high doses of Giorgio-Synephrine at 190 mcg/min. UO 2.5L. chest x- ray showed bilateral large effusions. KUB shows improving small bowel distention. WBC count is slightly improved 06/24: Unable to control HR. Repeat shock x3 today. remains in atrial fibrillation with RVR rates 160-170 intermittently. Remains on amiodarone but will discontinued due to elevation of liver enzymes AST 546 ALT 158. (GI notified). Start Cardizem infusion and also give Surjit 0.5 mg 1. Platelet count continues to drop from 67 to today 45. Hematology following will start of Argatroban today. Creatinine has slightly increased to 1.3 to will DC Bumex infusion 06/25: Patient remains intubated sedated critically ill. Heart rate controlled for the first time since atrial fibrillation started. Heart rate remains 80- 90. Urine output 1200 mL in 24 hours but BUN/creatinine increasing 44/1.7. I will hydrate with 50 mL/hr normal saline for 24 hours. Transaminitis increasing AST 1300 ALT 386. Ultrasound of the liver unremarkable GI following 06/26: PTT elevated due to Argatorban/Liver failure. Dr. Hurley has DCd argatroban. SMILEY pending. Pl count is 21. Currently in sinus rhythm on Cardizem infusion. Not on any pressors. Creatinine improved to 1.2. Urine output adequate. Becomes very tachypneic on attempted CPAP. Discussed with Dr. Geiger Will Start Trickle Tube Feeds 06/27: no improvements. off pathway. thrombocytopenia persists. unable to wean from mechanical ventilation. neuro exam poor. will likely need trach. 06/28: platelets worse today. SMILEY not resulted yet. failing SBT and mental status poor. poor prognosis. will need trach and LTAC placement. 06/29: Tmax 101. Currently 99.6. Tolerating trickle tube feeds. Continues to fail spontaneous breathing trials. 06/30: Lasted 1 hour spontaneous breathing trial this AM. 2.5 hours this afternoon. Currently afebrile. Hemoglobin remained stable. 07/01: lasted 4 hours on SBT, except 15 of pressure support, so not ready clinically for extubation, and even after only 4 hours, tired out and became hypoxic and tachypneic. more awake today and following commands. will likely need tracheostomy. 07/02: new fever today, but wbc normal. per ID, will culture and observe, continue flagyl/PO vanc. otherwise no changes. no improvements. 07/03: pseudomonas in sputum and urine. increase in cough and secretions. ID following and added cefepime. still weak and failing SBTs for hypoxia and tachypnea. needs tracheostomy. will need long-term rehab and likely LTAC. 07/04: Wakes up easily, follows commands. On 5 mg/hr versed. CXR pending. UO adequate. Resume SBT. Significant weight gain. approx 15 kg up. Give Bumex 2 mg IV x1 Subjective 07/05: Patient is intubated sedated with 50 g per hour of fentanyl. Urine output 3 L in [address] on scheduled Bumex. Tolerating CPAP at 15/5. bring in Viibryd, which apparently patient had been on for long time. I have resumed it. 07/06: Tolerating CPAP 10/5 better today, Wakes up and following commands. Good UO with Bumex. Chest x-ray basilar opacities essentially unchanged. Increase IV Bumex to 1 mg every 12 07/07: Extubated yesterday tolerating well. Slightly tachypneic but maintain oxygen saturation and no subjective shortness of breath. Urine output remains excellent on Bumex, 2.9L in 24 hours 07/08: Lying on bed breathing comfortably urine output excellent with increased Bumex dose. 5.8 L in 24 hours. WBC count stable. Increase activity up to stretcher chair today Objective Vital Signs Date Time Temp Pulse Resp B/P (MAP) Pulse Ox O2 Delivery O2 Flow Rate FiO2 07/08/17 10:00 104 07/08/17 08:00 98.3 36 166/79 (108) 97 07/07/17 23:52 Nasal Cannula 2.00 07/06/17 12:00 35 Intake and Output 07/08/17 07/08/17 07/09/17 08:00 16:00 00:00 Intake Total 250 ml Output Total 2200 ml Balance -1950 ml Result Diagram: 07/08/17 0500 07/08/17 1000 Imaging Last Impressions Chest X-Ray 06/30/17 0600 Signed Impressions: Service Date/Time: June 03:02 - CONCLUSION: 1. Improving bibasilar densities. Sarwat Suarez MD Abdomen X-Ray 06/27/17 0600 Signed Impressions: Service Date/Time: Tuesday, June 27, 2017 04:29 - CONCLUSION: Stable abdomen. Sarwat Suarez MD Liver Ultrasound 06/24/17 0000 Signed Impressions: Service Date/Time: Saturday, June 24, 2017 16:38 - CONCLUSION: 1. Small volume ascites. 2. Small right effusion. Pierce Ospina Jr., MD Upper Extremity Ultrasound 06/23/17 0000 Signed Impressions: Service Date/Time: June 20:03 - CONCLUSION: Noncompressibility right cephalic vein and left basilic vein consistent with venous thrombosis Trav Hsieh MD Lower Extremity Ultrasound 06/23/17 0000 Signed Impressions: Service Date/Time: June 20:16 - CONCLUSION: Normal examination. No evidence DVT Trav Hsieh MD Chest CT 06/20/17 0000 Signed Impressions: Service Date/Time: Tuesday, June 20, 2017 07:42 - CONCLUSION: 1. Bilateral effusions and consolidative changes in both lung bases. Bao Lora MD Abdomen/Pelvis CT 06/20/17 0000 Signed Impressions: Service Date/Time: Tuesday, June 20, 2017 07:39 - CONCLUSION: 1. Dilated stomach and multiple dilated loops of small bowel, likely ileus. 2. No definite gastric volvulus. 3. Fat containing right inguinal hernia which also contains small portion of the urinary bladder and minimal fluid. 4. Left-sided nephroureteral stent in good position. 5. Bibasilar consolidation and small pleural effusions. Sarwat Suarez MD Objective Remarks GENERAL: 67-year-old male ill appearing, on NC SKIN: Warm and dry. HEENT: Extraocular muscles intact. NECK: The neck is supple. LIJ central line in place CHEST: Few coarse rhonchi Equal bilaterally. Diminished at bases CVS: S1S2 normal no murmurs. ABDOMEN: Abdomen is slightly distended, soft. Incision appears healing well. Ileostomy is functioning well. EXTREMITIES: No pedal edema or cyanosis NEURO: Alert awake. Moves all extremities, following commands. No focal deficits. Date of Insertion: Jun 18, 2017 Side: Left Location: Internal A/P Assessment and Plan PLAN: NEURO: - PRN fentanyl for pain and anxiety. Use PRN Ativan for anxiety - Resumed Viibryd home med RESP: Acute hypoxemic respiratory failure-resolved HCAP Pseudomonas Pneumonia COPD with exacerbation - Extubated 07/06/17. Tolerating well - Albuterol/ipratropium every 4 hours with albuterol aerosols every 2 hours PRN. EzPAP Acapella, IS - Symbicort Spirva-07/07/17 -IV solumedrol 20 q12 CV: Atrial fibrillation with RVR - now rate controlled Fluid overload - Cardioverted several times without success and amiodarone started for A. fib with RVR - Amio DCd 06/24 due to Liver enzyme elevation. Placed on on Cardizem infusion and Digoxin. still back in afib with variable rate. very resistant afib and difficult to control. - On PO Cardizem 60 q6 and weaned off gtt - IV Heparin discontinued due to HIT screen positive hematology consulted. Argatroban DCd 06/[address] Hurley SMILEY negative. On Lovenox now - s/p Normal saline IV fluids 8L boluses on 06/18/17. Now off maintenance fluid - Scheduled Bumex 1 mg IV q8h - 2D Echo normal LV function GI: s/p Left colectomy with colorectal anastomosis, diverting ileostomy, wedge resection of liver metastasis C Diff enteritis/ileitis Transaminitis Hypernatremia - TPN at 50 cc an hour with lipids daily. Tolerating PO diet. Start weaning TPN - Pantoprazole 40 mg IV twice a day - Transaminitis most likely secondary to amiodarone and TPN and hypotension, interval worsening AST 1300, ALT 386, now improved, near normal - Elevated bilirubin and alkaline phosphatase most likely from Cholestasis secondary to TPN - Gastroenterology Dr. Saldana. EGD 06/19. Evidence of esophagitis, and erythematous gastritis in the gastric body and gastric antrum - C Diff positive from ileostomy sample indicating C Diff enteritis. On PO vanc and IV Flagyl - Dr. Geiger 06/22. Colonoscopy normal. Ileoscopy severe pseudomembranous ileitis - IV metoclopramide [address] Pre[address] abdomen pelvis and KUB shows small bowel ileus., KUB 06/23 improving ileus - Continue Alvimopan 12 mg every 12 hours for ileus : s/p Partial resection of the left ureter with anastomosis and placement of double-J stent - Monitor renal function closely. Han catheter. UO adequate - Bumex, 1 mg IV q8 ID: - ID Dr. Espinoza. PO Vancomycin and IV metronidazole for C diff enteritis - F/u blood and urine culture -negative to date - Cefepime started 07/03 for PSAE in sputum complete 8 day course HEME: Thrombocytopenia likely consumptive secondary to sepsis, hit screen positive SMILEY negative Normocytic anemia - Monitor CBC, CMP/ Plt remain low, multifactorial from severe sepsis, medication, and previous pelvic irradiation - HIT ruled out. Slowly improving plt after starting steroid for COPD - Argatroban started 06/24/17, DCd 06/26/[address] Hurley. According to Dr. Hurley elevated PTT secondary to decreased liver clearance of argatroban. Back on Lovenox. ENDO: Hypophosphatemia - Electrolyte replacement per protocol - Sliding-scale insulin to maintain euglycemia PROPH: -Bilateral lower extremity SCDs. Currently on enoxaparin DVT dose, IV pantoprazole 40 q12 LINES: - Left IJ central line, radial art line Critically ill stable. Multi organ involvement makes diagnosis still guarded, but overall improving with IV steroids for COPD exacerbation and diuresis. Extubated 07/06 Level 3 Shiva Segovia MD Jul 08, 2017 12:13
[2017-07-08] MEDS: [UNRECOGNIZED DRUG - REMARK] PO SCH (19:52)
[2017-07-08] MEDS: BUDESONIDE-FORMOTEROL 160/4.5 MCG INHALER INH SCH (20:03)
--- NOTE | 2017-07-08 20:09 | PD.ONC.PN ---
Subjective Subjective Remarks Pt seen and examined, VS, labs, meds and microbiology reviewed. His PLT counts are up to 41K, no overt bleeding. H&H stable. Over the past 24hrs he has maintained his O2 sats >90% on Nasal canula. His NGT was d/eliezer but he is not eating any significant amount. He remains on TPN. Objective Data Date Time Temp Pulse Resp B/P (MAP) Pulse Ox O2 Delivery O2 Flow Rate FiO2 07/08/17 16:00 98.4 96 30 154/78 (103) 97 07/08/17 16:00 104 07/08/17 14:15 98 Nasal Cannula 4.00 07/08/17 14:00 104 07/08/17 12:00 104 07/08/17 12:00 98.0 100 33 155/84 (107) 100 07/08/17 10:00 104 07/08/17 08:00 104 07/08/17 08:00 98.3 100 36 166/79 (108) 97 07/08/17 06:00 99 07/08/17 04:00 98.0 106 25 150/80 (103) 95 07/08/17 04:00 106 07/08/17 02:00 100 07/08/17 00:00 103 07/08/17 00:00 98.3 103 35 135/77 (96) 98 07/07/17 23:52 99 Nasal Cannula 2.00 07/07/17 22:00 104 07/07/17 20:30 97 Nasal Cannula 6.00 07/08/17 07/08/17 07/08/17 07:00 15:00 23:00 Intake Total 250 ml 200 ml Output Total 2200 ml Balance -1950 ml 200 ml Result Diagram: 07/08/17 0500 07/08/17 1000 Laboratory Results Laboratory Tests Test 07/08/17 05:00 07/08/17 10:00 White Blood Count 11.4 TH/MM3 Red Blood Count 3.31 MIL/MM3 Hemoglobin 9.5 GM/DL Hematocrit 29.6 % Mean Corpuscular Volume 89.4 FL Mean Corpuscular Hemoglobin 28.6 PG Mean Corpuscular Hemoglobin Concent 32.0 % Red Cell Distribution Width 16.7 % Platelet Count 41 TH/MM3 Mean Platelet Volume 11.2 FL Blood Urea Nitrogen 29 MG/DL Creatinine 0.77 MG/DL Random Glucose 113 MG/DL Total Protein 6.2 GM/DL Albumin 1.9 GM/DL Calcium Level 7.8 MG/DL Alkaline Phosphatase 552 U/L Aspartate Amino Transf (AST/SGOT) 64 U/L Alanine Aminotransferase (ALT/SGPT) 67 U/L Total Bilirubin 3.8 MG/DL Sodium Level 145 MEQ/L Potassium Level 3.3 MEQ/L Chloride Level 109 MEQ/L Carbon Dioxide Level 28.8 MEQ/L Anion Gap 7 MEQ/L Estimat Glomerular Filtration Rate 100 ML/MIN Administered Medications Medications (Trade) Dose Ordered Sig/[place] Route PRN Reason Start Time Stop Time Status Last Admin Dose Admin Acetaminophen/ Hydrocodone Bitart ([place] 5-325 Mg) 1 tab Q4H PRN PO PAIN SCALE 1 TO 5 06/17/17 22:00 06/17/17 22:02 Acetaminophen/ Hydrocodone Bitart ([place] 5-325 Mg) 2 tab Q4H PRN PO PAIN SCALE 6 TO 10 06/17/17 22:00 07/08/17 19:51 Ondansetron HCl (Zofran Inj) 4 mg Q4H PRN IV PUSH NAUSEA/VOMITING 06/17/17 22:00 06/18/17 09:45 Miscellaneous Information Patient in critical care unit? Ass... [id number] .XX 06/18/17 05:45 06/18/17 05:45 Metoclopramide HCl (Reglan Inj) 5 mg Q8H IV PUSH 06/18/17 17:00 07/08/17 18:56 Potassium Chloride 100 ml @ 50 mls/hr Q2H PRN IV For Potassium 2.8 - 3.2 mEq/L 06/19/17 07:45 07/07/17 07:53 Potassium Chloride 100 ml @ 50 mls/hr Q2H PRN IV For Potassium 3.3 - 3.5 mEq/L 06/19/17 07:45 06/22/17 17:22 Sodium Phosphate 30 mmol/Sodium Chloride 250 ml @ 42 mls/hr UNSCH PRN IV For Phosphorus < 2.5 mg/dL 06/19/17 07:45 07/01/17 06:24 Fat Emulsion Intravenous 250 ml @ 10 mls/hr Q24H IV-CENTRAL 06/19/17 20:00 07/07/17 20:47 Insulin Aspart (NovoLOG SUPPLEMENTAL SCALE) 1 Q4HR SQ 06/19/17 12:00 07/06/17 08:28 Sodium Chloride 40 meq/Sodium Acetate 59 meq/ Potassium Chloride 40 meq/ Sodium Phosphate 40 meq/Magnesium Chloride 10 meq/ Calcium Chloride 9 meq/ Multivitamins 10 ml/Folic Acid 1 mg/Insulin Human Regular 40 units/ Amino Acids/ Dextrose 2,091.7937 ml @ 50 mls/hr Q24H IV-CENTRAL 06/19/17 20:00 07/07/17 20:47 Vancomycin HCl (VANCOMYCIN for oral use only) 500 mg QID NG 06/19/17 18:00 07/08/17 19:52 Chlorhexidine Gluconate (Peridex 0.12% Liq) 15 ml BID@08,20 MT 06/20/17 08:00 07/06/17 08:16 Acetaminophen (Tylenol 650 Mg/ 20 ml Liq) 650 mg Q6H PRN PO fever>100.5 06/20/17 16:30 07/04/17 12:23 Pantoprazole Sodium (Protonix Inj) 40 mg Q12H IV PUSH 06/21/17 07:00 07/08/17 18:56 Digoxin (Lanoxin Inj) 0.125 mg DAILY IV PUSH 06/25/17 13:30 07/08/17 08:37 Albuterol Sulfate (Albuterol Neb) 2.5 mg Q2HR NEB PRN NEB DYSPNEA 06/29/17 14:30 07/05/17 08:44 Cefepime HCl 1000 mg/Sodium Chloride 100 ml @ 200 mls/hr Q8H IV 07/03/17 11:00 07/08/17 18:57 Potassium Bicarb/ Potassium Chloride (K-Lyte Cl Eff) 25 meq DAILY PO 07/05/17 12:00 07/08/17 08:35 Non-Formulary Medication 40 mg HS PO 07/05/17 21:00 07/08/17 19:52 Diltiazem HCl (Cardizem) 60 mg Q6HR PO 07/05/17 12:45 07/08/17 18:57 Albuterol/ Ipratropium (Duoneb Neb) 1 ampule Q4HR NEB NEB 07/05/17 16:00 07/08/17 14:11 Lorazepam (Ativan Inj) 1 mg Q4H PRN IV PUSH anxiety 07/05/17 13:00 07/08/17 19:52 Collagenase (Santyl Oint) 1 applic DAILY TOPICAL 07/07/17 09:00 07/08/17 08:32 Methylprednisolone Sodium Succinate (SoluMEDROL INJ) 20 mg Q12HR IV PUSH 07/07/17 09:00 07/08/17 19:52 Budesonide/ Formoterol Fumarate (Symbicort 160-4.5 Inh) 1 puff Q12HR INH 07/07/17 09:00 07/07/17 21:00 Bumetanide (Bumex Inj) 1 mg Q8H IV PUSH 07/07/17 17:00 07/08/17 18:54 Objective Remarks GENERAL APPEARANCE: Mr. Armendariz is a middle-aged/elderly male. He is laying in bed. He is responsive. He speaks with a hoarse voice. HEENT: Head atraumatic, normocephalic. Conjunctivae are pale. Sclerae are anicteric, EOMI, PERRLA, oral exam no pharyngeal erythema. NECK: No palpable cervical or supraclavicular lymphadenopathy. RESPIRATORY: Good air movement bilaterally. Coarse conducted breath sounds. He has prolonged expiratory phase. He is initiating multiple spontaneous breaths. CARDIOVASCULAR: Irregular, tachycardiac, S1 S2, no obvious murmurs, rubs or gallops. ABDOMEN: The belly is soft. An ileostomy bag is noted containing liquid stools. A well-healing laparotomy incision in the midline is appreciated. The abdomen does not appear to be distended, there appears to be no significant increase in tympany on percussion. There are no signs of acute abdomen. LOWER EXTREMITIES: No pretibial edema, no calf tenderness. Upper extremities: Right upper extremity with edema. MUSCULOSKELETAL: There appears to be muscle atrophy. PRODUCER DIRECTOR: No spontaneous movement of the limbs. Assessment/Plan Assessment Mr. Armendariz is a 67-year-old male who was recently diagnosed with metastatic adenocarcinoma of the rectosigmoid colon and had resection of a metastatic deposit to the liver. He is status post primary surgical resection (3-4 weeks ago) as well as wedge resection of a metastatic deposit to the liver and now has C difficile colitis. He has thrombocytopenia with thrombosis to the cephalic and brachial veins. Admitted to colorectal surgery service initially for weakness/abdominal pain. Then 06/18 became tachy and hypotensive. had elevated lactic acid and bandemia. sepsis suspected. Electrician Front was consulted. on 06/20 was intubated d /t hemodynamic instability. platelets also started falling on 06/20. Plan 1. Platelet count is up to 41K today. Resume Lovenox at 40mg sq daily; ordered to start on 07/09. Thrombocytopenia was likely consumptive due to his severe sepsis and resultant DIC. 2. Will discuss treatment for his metastatic colon cancer after he recovers from his acute illness. 3. Left upper extremity thrombosis involving the cephalic and basilic veins on the L side, noted, asymptomatic, will repeat an US doppler if his extremity is more swollen or symptomatic. He continues to recover from his severe C.Diff sepsis. Faraz Ryan MD Jul 08, 2017 20:09
[2017-07-08] MEDS: SODIUM CHLORIDE IV-CENTRAL SCH ×10 (20:25)
[2017-07-08] MEDS: [UNRECOGNIZED DRUG - OTHER] IV-CENTRAL SCH ×10 (20:25)
[2017-07-08] MEDS: SODIUM ACETATE IV-CENTRAL SCH ×10 (20:25)
[2017-07-09] VITALS (14 sets, daily range): BP systolic 140–150; BP diastolic 70–86; PULSE 92–111; RESP 21–36; TEMP 98–98.7; O2SAT 93–98
[2017-07-09] MEDS: BUMETANIDE INJ 1 MG/4 ML VIAL IV PUSH SCH ×3 (00:19→18:31)
[2017-07-09] MEDS: DILTIAZEM HCL 60 MG TAB PO SCH ×4 (00:19→18:28)
[2017-07-09] MEDS: ACETAMINOPHEN/HYDROcodone 325 MG/5 MG TAB PO PRN ×2 (00:20→04:19)
[2017-07-09] MEDS: METOCLOPRAMIDE HCL 10 MG/2 ML VIAL IV PUSH SCH ×2 (00:20→08:56)
[2017-07-09] MEDS: CEFEPIME INJ 1,000 MG in SODIUM CHLORIDE 0.9% INJ 100 ML IV SCH ×3 (02:02→18:28)
[2017-07-09] MEDS: INSULIN ASPART SUPPLEMENTAL SCALE SQ SCH ×5 (03:07→20:00)
--- NOTE | 2017-07-09 03:14 | RADRPT ---
EXAM DATE/TIME: 07/09/2017 02:21 [facility] COMPARISON: CHEST SINGLE AP, July 07, 2017, 6:30. INDICATIONS : Shortness of breath, possible pulmonary disease. MEDICAL HISTORY : Hypertension. Hypercholesterolemia. SURGICAL HISTORY : None. ENCOUNTER: Subsequent ACUITY: 2 weeks PAIN SCORE: 0/10 LOCATION: Bilateral chest FINDINGS: Single AP view of the chest. Left IJ central venous catheter remains in place. Nasogastric tube no lo nger seen. Bilateral pulmonary parenchymal opacity and pleural effusions unchanged. Cardiomediastinal silhouette within normal limits. CONCLUSION: No significant interval change with persistent bilateral pulmonary opacity and pleural effusions. Luis Armando Michel MD on July 09, 2017 at 3:12 Board Certified Radiologist. This report was verified electronically.
[2017-07-09] MEDS: RESP: ALBUTEROL 2.5 MG/IPRATROPIUM 0.5 MG NEB (SCH) NEB ×3 (04:00→13:10)
[2017-07-09] MEDS: LORazepam 2 MG/ML VIAL IV PUSH PRN (04:19)
[2017-07-09] MEDS: PANTOPRAZOLE SODIUM 40 MG VIAL IV PUSH SCH ×2 (04:19→08:54)
[2017-07-09 07:59] LABS: AUTOMATED NEUTROPHIL # 9.1 TH/MM3 (1.8-7.7); BASOPHIL % 0.3 % (0.0-2.0); HEMATOCRIT 29.5 % (39.0-51.0); LYMPH % 6.8 % (9.0-44.0); LYMPHOCYTE # 0.7 TH/MM3 (1.0-4.8); MEAN CELL VOLUME 89.3 FL (80.0-100.0); MEAN CORPUSCULAR HGB CONC 31.3 % (32.0-36.0); MONO % 9.4 % (0.0-8.0); NEUT % 83.5 % (16.0-70.0); PLATELET COUNT 49 TH/MM3 (150-450); RED CELL DISTRIBUTION WIDTH 17.1 % (11.6-17.2); WHITE BLOOD COUNT 10.9 TH/MM3 (4.0-11.0)
[2017-07-09 08:00] LABS: ALKALINE PHOSPHATASE 491 U/L (45-117); ALT (GPT) 62 U/L (12-78); ANION GAP 10 MEQ/L (5-15); AST (GOT) 51 U/L (15-37); BICARBONATE 26.5 MEQ/L (21.0-32.0); BLOOD UREA NITROGEN 28 MG/DL (7-18); CHLORIDE 107 MEQ/L (98-107); GLOMERULAR FILTRATION RATE 104 ML/MIN (>89); SODIUM (NA) 143 MEQ/L (136-145)
[2017-07-09 08:04] LABS: HEMO FLAGS AUTO DIFF
[2017-07-09 08:16] LABS: POTASSIUM 2.9 MEQ/L (3.5-5.1)
[2017-07-09] MEDS ORDERED: POTASSIUM CHLOR 40 MEQ PREMIX 100 ML IV ONE (08:30)
[2017-07-09] MEDS: ENOXAPARIN SODIUM 40 MG/0.4 ML SYRINGE SQ SCH (08:53)
[2017-07-09] MEDS: POTASSIUM CHLORIDE 25 MEQ EFFERVESCENT TAB PO SCH (08:55)
[2017-07-09] MEDS: VANCOMYCIN 500 MG VIAL (FOR ORAL USE ONLY) NG SCH ×4 (08:55→22:42)
[2017-07-09] MEDS: methylPREDNISolone SOD SUCC 40 MG/1 ML VIAL IV PUSH SCH ×2 (08:56→22:43)
[2017-07-09] MEDS: BUDESONIDE-FORMOTEROL 160/4.5 MCG INHALER INH SCH ×2 (09:00→22:43)
[2017-07-09] MEDS: DIGOXIN 0.5 MG/2 ML VIAL IV PUSH SCH (09:00)
[2017-07-09] MEDS: COLLAGENASE OINT 30 GM TUBE TOPICAL SCH (09:00)
[2017-07-09] MEDS: CHLORHEXIDINE 0.12% (ORAL KIT) 15 ML CUP MT SCH ×2 (09:03→20:00)
--- NOTE | 2017-07-09 09:54 | HHI.CCPN ---
Subjective Remarks/Hospital Course The patient is a 67-year-old male with past medical history of hypertension, metastatic colon cancer, tobacco abuse, who, about 3 weeks ago underwent low anterior resection with low colorectal anastomosis, diverting ileostomy, and resection of a segment of the left ureter with ureteral anastomosis and double- J stent placement. He presented yesterday with 5 day history of abdominal discomfort and increasing weakness. No history of high output from ileostomy. He was admitted to the colorectal surgery for dehydration and probable UTI. He was placed on ciprofloxacin and IV hydration. According to Dr. Geiger's note it was difficult dissection/resection colon mass because of the pelvic sidewall adherence and the adherence to the left ureter. A portion of ureter was resected due to possibility of tumor infiltration, and Dr. Augustine Pelayo re- anastomosed the ureter and placed left-sided double-J stent. Also 1 cm hepatic metastasis in his liver that was excised. Hospitalist consultation was requested for medical management and evaluation of tachycardia today. He was seen by Dr. Jay and was placed on infusion of Cardizem for heart rate 140s. Patient became hypotensive with systolic blood pressure early 90s. Lab work showed WBC 14.5 with 44% bands, creat increase from 1.2 to 1.4 and severely increased lactate at 8 from admission lactate of 2.6. CT of the abdomen pelvis done yesterday showed probable small bowel ileus. I evaluated the patient in the ICU. He is tachycardic in 140s, hypotensive and systolic blood pressure in mid 80s. Clinically appears very dehydrated, an NG tube was placed with approximately 3 L of some coffee-ground output. ABG shows a base excess of -10 and bicarbonate 12. I have ordered 4 liter normal saline boluses start 1 amp of bicarbonate, discontinued the LR infusion, and started bicarb gtt. Discontinue ciprofloxacin, started Zosyn every 6 hours, vancomycin 1 g 1. His elevated lactic acid and bandemia most likely secondary to severe sepsis, ileus, and severe dehydration. Serial lactate is ordered SUBJ 06/19: Lactic acid remains elevated at 6.6 despite getting 9 L of crystalloid boluses in last 24 hours. Tachycardia has improved heart rate in 110s. Remains on vasopressin at 0.04 units/min. Urine output almost 1200 mL overnight, OGT initial output was almost 3 L when placed yesterday a.m. Overnight had 550 mL of greenish brown fluid output. EGD pending today rule out gastric ischemia per Dr. Romero. Apparently Flex sig was negative post op in Dr. Geiger's office 06/20: Developed A. fib with RVR. Heart rate 200. Hemodynamically unstable, synchronized cardioversion attempted by Dr. Morales 100 200 J. Given 3 g mag sulfate and 80 mEq KCl 1, 0.5 digoxin 1 and started on amiodarone and Giorgio- Synephrine. Intubated due to hemodynamic instability. Currently remains sedated. Currently on Giorgio-Synephrine 80 mcg/m, and amiodarone. CT chest abdomen pelvis again confirms gastric and small bowel distention/ileus. UO 1800 ml in 24 hours 06/21: Remains critically ill, intubated sedated, on 100 mcg/min neosynpehrine. HR better controlled. NG output 1500, UO >1.4L. Am labs pending. Ileostomy sample positive for C Diff on PO vanc IV Flagyl. 06/22: Remains intubated sedated. Urine output 3000 mL with Bumex. NGT [address] Geiger did colonoscopy which was normal. Ileoscopy showed pseudomembranous colitis. Currently on 200 mcg/min of neosynephrine. Afib with RVR HR in 140's 06/23: Remains intubated sedated, remains in atrial fibrillation with RVR. Still requiring high doses of Giorgio-Synephrine at 190 mcg/min. UO 2.5L. chest x- ray showed bilateral large effusions. KUB shows improving small bowel distention. WBC count is slightly improved 06/24: Unable to control HR. Repeat shock x3 today. remains in atrial fibrillation with RVR rates 160-170 intermittently. Remains on amiodarone but will discontinued due to elevation of liver enzymes AST 546 ALT 158. (GI notified). Start Cardizem infusion and also give Surjit 0.5 mg 1. Platelet count continues to drop from 67 to today 45. Hematology following will start of Argatroban today. Creatinine has slightly increased to 1.3 to will DC Bumex infusion 06/25: Patient remains intubated sedated critically ill. Heart rate controlled for the first time since atrial fibrillation started. Heart rate remains 80- 90. Urine output 1200 mL in 24 hours but BUN/creatinine increasing 44/1.7. I will hydrate with 50 mL/hr normal saline for 24 hours. Transaminitis increasing AST 1300 ALT 386. Ultrasound of the liver unremarkable GI following 06/26: PTT elevated due to Argatorban/Liver failure. Dr. Hurley has DCd argatroban. SMILEY pending. Pl count is 21. Currently in sinus rhythm on Cardizem infusion. Not on any pressors. Creatinine improved to 1.2. Urine output adequate. Becomes very tachypneic on attempted CPAP. Discussed with Dr. Geiger Will Start Trickle Tube Feeds 06/27: no improvements. off pathway. thrombocytopenia persists. unable to wean from mechanical ventilation. neuro exam poor. will likely need trach. 06/28: platelets worse today. SMILEY not resulted yet. failing SBT and mental status poor. poor prognosis. will need trach and LTAC placement. 06/29: Tmax 101. Currently 99.6. Tolerating trickle tube feeds. Continues to fail spontaneous breathing trials. 06/30: Lasted 1 hour spontaneous breathing trial this AM. 2.5 hours this afternoon. Currently afebrile. Hemoglobin remained stable. 07/01: lasted 4 hours on SBT, except 15 of pressure support, so not ready clinically for extubation, and even after only 4 hours, tired out and became hypoxic and tachypneic. more awake today and following commands. will likely need tracheostomy. 07/02: new fever today, but wbc normal. per ID, will culture and observe, continue flagyl/PO vanc. otherwise no changes. no improvements. 07/03: pseudomonas in sputum and urine. increase in cough and secretions. ID following and added cefepime. still weak and failing SBTs for hypoxia and tachypnea. needs tracheostomy. will need long-term rehab and likely LTAC. 07/04: Wakes up easily, follows commands. On 5 mg/hr versed. CXR pending. UO adequate. Resume SBT. Significant weight gain. approx 15 kg up. Give Bumex 2 mg IV x1 Subjective 07/05: Patient is intubated sedated with 50 g per hour of fentanyl. Urine output 3 L in [address] on scheduled Bumex. Tolerating CPAP at 15/5. bring in Viibryd, which apparently patient had been on for long time. I have resumed it. 07/06: Tolerating CPAP 10/5 better today, Wakes up and following commands. Good UO with Bumex. Chest x-ray basilar opacities essentially unchanged. Increase IV Bumex to 1 mg every 12 07/07: Extubated yesterday tolerating well. Slightly tachypneic but maintain oxygen saturation and no subjective shortness of breath. Urine output remains excellent on Bumex, 2.9L in 24 hours 07/08: Lying on bed breathing comfortably urine output excellent with increased Bumex dose. 5.8 L in 24 hours. WBC count stable. Increase activity up to stretcher chair today 07/09: Tolerating by mouth diet. Eating atleast 50%. TPN reduced by half yesterday. UO remains excellent with diuresis. Attempt TPN wean off today. Breathing comfortably except intermittent tachypnea. Objective Vital Signs Date Time Temp Pulse Resp B/P (MAP) Pulse Ox O2 Delivery O2 Flow Rate FiO2 07/09/17 08:15 97 Nasal Cannula 3.00 07/09/17 06:00 100 07/09/17 04:00 98.1 34 148/86 (106) 07/06/17 12:00 35 Intake and Output 07/09/17 07/09/17 07/10/17 08:00 16:00 00:00 Intake Total 350 ml Output Total 2200 ml Balance -1850 ml Result Diagram: 07/09/17 0500 07/09/17 0500 Imaging Last Impressions Chest X-Ray 06/30/17 0600 Signed Impressions: Service Date/Time: June 03:02 - CONCLUSION: 1. Improving bibasilar densities. Sarwat Suarez MD Abdomen X-Ray 06/27/17 0600 Signed Impressions: Service Date/Time: Tuesday, June 27, 2017 04:29 - CONCLUSION: Stable abdomen. Sarwat Suarez MD Liver Ultrasound 06/24/17 0000 Signed Impressions: Service Date/Time: Saturday, June 24, 2017 16:38 - CONCLUSION: 1. Small volume ascites. 2. Small right effusion. Pierce Ospina Jr., MD Upper Extremity Ultrasound 06/23/17 0000 Signed Impressions: Service Date/Time: June 20:03 - CONCLUSION: Noncompressibility right cephalic vein and left basilic vein consistent with venous thrombosis Trav Hsieh MD Lower Extremity Ultrasound 06/23/17 0000 Signed Impressions: Service Date/Time: June 20:16 - CONCLUSION: Normal examination. No evidence DVT Trav Hsieh MD Chest CT 06/20/17 0000 Signed Impressions: Service Date/Time: Tuesday, June 20, 2017 07:42 - CONCLUSION: 1. Bilateral effusions and consolidative changes in both lung bases. Bao Lora MD Abdomen/Pelvis CT 06/20/17 0000 Signed Impressions: Service Date/Time: Tuesday, June 20, 2017 07:39 - CONCLUSION: 1. Dilated stomach and multiple dilated loops of small bowel, likely ileus. 2. No definite gastric volvulus. 3. Fat containing right inguinal hernia which also contains small portion of the urinary bladder and minimal fluid. 4. Left-sided nephroureteral stent in good position. 5. Bibasilar consolidation and small pleural effusions. Sarwat Suarez MD Objective Remarks GENERAL: 67-year-old male lying on bed, on NC SKIN: Warm and dry. HEENT: Extraocular muscles intact. NECK: The neck is supple. LIJ central line in place CHEST: Few coarse rhonchi Equal bilaterally. Diminished at bases CVS: S1S2 normal no murmurs. ABDOMEN: Abdomen is slightly distended, soft. Incision appears healing well. Ileostomy is functioning well. EXTREMITIES: No pedal edema or cyanosis NEURO: Alert awake. Moves all extremities, following commands. No focal deficits. Urinary Catheter: Yes Assessment to: Remove Vascular Central Line Catheter: Yes Assessment to: Remove Date of Insertion: Jun 18, 2017 Side: Left Location: Internal A/P Assessment and Plan PLAN: NEURO: - PRN fentanyl for pain and anxiety. Use PRN Ativan for anxiety - Continue Viibryd home med RESP: Acute hypoxemic respiratory failure-resolved HCAP Pseudomonas Pneumonia COPD with exacerbation - Extubated 07/06/17. Tolerating well - Albuterol/ipratropium every 4 hours with albuterol aerosols every 2 hours PRN. EzPAP Acapella, IS - Symbicort Spirva-07/07/17 - IV solumedrol 20 q12 -change to QD from 07/10 CV: Atrial fibrillation with RVR - now rate controlled Fluid overload - Cardioverted several times without success and amiodarone started for A. fib with RVR - Amio DCd 06/24 due to Liver enzyme elevation. Placed on on Cardizem infusion and Digoxin. very resistant afib and difficult to control. - On PO Cardizem 60 q6 and weaned off gtt. - IV Heparin discontinued due to HIT screen positive hematology consulted. Argatroban DCd 06/[address] Hurley SMILEY negative. On Lovenox now - s/p Normal saline IV fluids 8L boluses on 06/18/17. Now off maintenance fluid - Scheduled Bumex 1 mg IV q8h, with excellent diuresis - 2D Echo normal LV function GI: s/p Left colectomy with colorectal anastomosis, diverting ileostomy, wedge resection of liver metastasis C Diff enteritis/ileitis Transaminitis Hypernatremia - TPN at 25 cc an hour with lipids daily. Tolerating PO diet. Wean to DC TPN slowly - Pantoprazole 40 mg IV twice a day - Transaminitis most likely secondary to amiodarone and TPN and hypotension, interval worsening AST 1300, ALT 386, now improved, near normal - Elevated bilirubin and alkaline phosphatase most likely from Cholestasis secondary to TPN - Gastroenterology Dr. Saldana. EGD 06/19. Evidence of esophagitis, and erythematous gastritis in the gastric body and gastric antrum - C Diff positive from ileostomy sample indicating C Diff enteritis. On PO vanc and IV Flagyl - Dr. Geiger 06/22. Colonoscopy normal. Ileoscopy severe pseudomembranous ileitis - IV metoclopramide [address] abdomen pelvis and KUB shows small bowel ileus., KUB 06/23 improving ileus - Continue Alvimopan 12 mg every 12 hours for ileus : s/p Partial resection of the left ureter with anastomosis and placement of double-J stent - Monitor renal function closely. Han catheter. UO excellent - Bumex, 1 mg IV q8 ID: - ID Dr. Espinoza. PO Vancomycin and IV metronidazole for C diff enteritis - F/u blood and urine culture -negative to date - Cefepime started 07/03 for PSAE in sputum complete 8 day course HEME: Thrombocytopenia likely consumptive secondary to sepsis, hit screen positive SMILEY negative Normocytic anemia - Monitor CBC, CMP/ Plt remain low, multifactorial from severe sepsis, medication, and previous pelvic irradiation - HIT ruled out. Slowly improving plt after starting steroid for COPD, today 49 - Argatroban started 06/24/17, DCd 06/26/[address] Hurley. According to Dr. Hurley elevated PTT secondary to decreased liver clearance of argatroban. Back on Lovenox. ENDO: Hypophosphatemia Hypokalemia - Electrolyte replacement per protocol - Sliding-scale insulin to maintain euglycemia PROPH: -Bilateral lower extremity SCDs. Currently on enoxaparin DVT dose, IV pantoprazole 40 q12 LINES: - Left IJ central line, radial art line Critically ill stable. Multi organ involvement overall improving. Extubated 07/06. Will need rehab for generalized weakness and debility Level 2 Shiva Segovia MD Jul 09, 2017 09:53
[2017-07-09 09:56] LABS: BANDS 1 % (0-6); CORRECTED NUCLEATED RBC 6 /100 WBC (0-0); HOWELL-JOLLY BODIES PRESENT (NONE SEEN); METAMYELOCYTES 1 % (0-1); MYELOCYTES 3 % (0-0); NEUTROPHIL # MANUAL DIFF 10.2 TH/MM3 (1.8-7.7); PLATELET ESTIMATE SMEAR LOW (NORMAL); PLATELET MORPHOLOGY ENLARGED (NORMAL); POLYS (SEG NEUTROPHILS) 89 % (16-70); WBC DIFF SAMPLE 100
[2017-07-09 10:01] LABS: SCAN/DIFF FINAL DIFF MANUAL
--- NOTE | 2017-07-09 11:23 | PD.ONC.PN ---
Subjective Subjective Remarks Afebrile overnight. Patient resting in bed. No overnight events reported. Objective Data Date Time Temp Pulse Resp B/P (MAP) Pulse Ox O2 Delivery O2 Flow Rate FiO2 07/09/17 08:15 97 Nasal Cannula 3.00 07/09/17 06:00 100 07/09/17 04:00 108 07/09/17 04:00 98.1 108 34 148/86 (106) 93 07/09/17 02:00 111 07/09/17 00:00 102 07/09/17 00:00 98.3 102 36 150/70 (96) 07/08/17 22:00 109 07/08/17 20:36 98 Nasal Cannula 3.00 07/08/17 20:00 98.0 103 25 156/73 (100) 91 07/08/17 20:00 103 07/08/17 18:00 104 07/08/17 16:00 98.4 96 30 154/78 (103) 97 07/08/17 16:00 104 07/08/17 14:15 98 Nasal Cannula 4.00 07/08/17 14:00 104 07/08/17 12:00 104 07/08/17 12:00 98.0 100 33 155/84 (107) 100 07/09/17 07/09/17 07/09/17 07:00 15:00 23:00 Intake Total 350 ml Output Total 2200 ml Balance -1850 ml Result Diagram: 07/09/17 0500 07/09/17 0500 Laboratory Results Laboratory Tests Test 07/09/17 05:00 White Blood Count 10.9 TH/MM3 Red Blood Count 3.30 MIL/MM3 Hemoglobin 9.2 GM/DL Hematocrit 29.5 % Mean Corpuscular Volume 89.3 FL Mean Corpuscular Hemoglobin 28.0 PG Mean Corpuscular Hemoglobin Concent 31.3 % Red Cell Distribution Width 17.1 % Platelet Count 49 TH/MM3 Mean Platelet Volume 11.0 FL Neutrophils (%) (Auto) 83.5 % Lymphocytes (%) (Auto) 6.8 % Monocytes (%) (Auto) 9.4 % Eosinophils (%) (Auto) 0.0 % Basophils (%) (Auto) 0.3 % Neutrophils # (Auto) 9.1 TH/MM3 Lymphocytes # (Auto) 0.7 TH/MM3 Monocytes # (Auto) 1.0 TH/MM3 Eosinophils # (Auto) 0.0 TH/MM3 Basophils # (Auto) 0.0 TH/MM3 CBC Comment AUTO DIFF Differential Total Cells Counted 100 Neutrophils % (Manual) 89 % Band Neutrophils % 1 % Lymphocytes % 1 % Monocytes % 5 % Neutrophils # (Manual) 10.2 TH/MM3 Metamyelocytes 1 % Myelocytes 3 % Nucleated Red Blood Cells 6 /100 WBC Differential Comment FINAL DIFF MANUAL Platelet Estimate LOW Platelet Morphology Comment ENLARGED [facility] Bodies PRESENT Blood Urea Nitrogen 28 MG/DL Creatinine 0.75 MG/DL Random Glucose 141 MG/DL Total Protein 5.8 GM/DL Albumin 1.7 GM/DL Calcium Level 7.8 MG/DL Magnesium Level 2.0 MG/DL Alkaline Phosphatase 491 U/L Aspartate Amino Transf (AST/SGOT) 51 U/L Alanine Aminotransferase (ALT/SGPT) 62 U/L Total Bilirubin 4.0 MG/DL Sodium Level 143 MEQ/L Potassium Level 2.9 MEQ/L Chloride Level 107 MEQ/L Carbon Dioxide Level 26.5 MEQ/L Anion Gap 10 MEQ/L Estimat Glomerular Filtration Rate 104 ML/MIN Imaging Studies Last 24 hours Impressions Chest X-Ray 07/09/17 0600 Signed Impressions: Service Date/Time: Sunday, July 09, 2017 02:21 - CONCLUSION: No significant interval change with persistent bilateral pulmonary opacity and pleural effusions. Luis Armando Michel MD Administered Medications Medications (Trade) Dose Ordered Sig/[place] Route PRN Reason Start Time Stop Time Status Last Admin Dose Admin Acetaminophen/ Hydrocodone Bitart ([place] 5-325 Mg) 1 tab Q4H PRN PO PAIN SCALE 1 TO 5 06/17/17 22:00 07/09/17 04:19 Acetaminophen/ Hydrocodone Bitart ([place] 5-325 Mg) 2 tab Q4H PRN PO PAIN SCALE 6 TO 10 06/17/17 22:00 07/09/17 00:20 Ondansetron HCl (Zofran Inj) 4 mg Q4H PRN IV PUSH NAUSEA/VOMITING 06/17/17 22:00 06/18/17 09:45 Miscellaneous Information Patient in critical care unit? Ass... [id number] .XX 06/18/17 05:45 06/18/17 05:45 Metoclopramide HCl (Reglan Inj) 5 mg Q8H IV PUSH 06/18/17 17:00 07/09/17 08:56 Potassium Chloride 100 ml @ 50 mls/hr Q2H PRN IV For Potassium 2.8 - 3.2 mEq/L 06/19/17 07:45 07/07/17 07:53 Potassium Chloride 100 ml @ 50 mls/hr Q2H PRN IV For Potassium 3.3 - 3.5 mEq/L 06/19/17 07:45 06/22/17 17:22 Sodium Phosphate 30 mmol/Sodium Chloride 250 ml @ 42 mls/hr UNSCH PRN IV For Phosphorus < 2.5 mg/dL 06/19/17 07:45 07/01/17 06:24 Fat Emulsion Intravenous 250 ml @ 10 mls/hr Q24H IV-CENTRAL 06/19/17 20:00 07/07/17 20:47 Insulin Aspart (NovoLOG SUPPLEMENTAL SCALE) 1 Q4HR SQ 06/19/17 12:00 07/06/17 08:28 Sodium Chloride 40 meq/Sodium Acetate 59 meq/ Potassium Chloride 40 meq/ Sodium Phosphate 40 meq/Magnesium Chloride 10 meq/ Calcium Chloride 9 meq/ Multivitamins 10 ml/Folic Acid 1 mg/Insulin Human Regular 40 units/ Amino Acids/ Dextrose 2,091.7937 ml @ 50 mls/hr Q24H IV-CENTRAL 06/19/17 20:00 07/08/17 20:25 Vancomycin HCl (VANCOMYCIN for oral use only) 500 mg QID NG 06/19/17 18:00 07/09/17 08:55 Chlorhexidine Gluconate (Peridex 0.12% Liq) 15 ml BID@08,20 MT 06/20/17 08:00 07/09/17 09:03 Acetaminophen (Tylenol 650 Mg/ 20 ml Liq) 650 mg Q6H PRN PO fever>100.5 06/20/17 16:30 07/04/17 12:23 Digoxin (Lanoxin Inj) 0.125 mg DAILY IV PUSH 06/25/17 13:30 07/08/17 08:37 Albuterol Sulfate (Albuterol Neb) 2.5 mg Q2HR NEB PRN NEB DYSPNEA 06/29/17 14:30 07/05/17 08:44 Cefepime HCl 1000 mg/Sodium Chloride 100 ml @ 200 mls/hr Q8H IV 07/03/17 11:00 11/4/17 02:02 Potassium Bicarb/ Potassium Chloride (K-Lyte Cl Eff) 25 meq DAILY PO 07/05/17 12:00 07/09/17 08:55 Non-Formulary Medication 40 mg HS PO 07/05/17 21:00 07/08/17 19:52 Diltiazem HCl (Cardizem) 60 mg Q6HR PO 07/05/17 12:45 07/09/17 04:19 Albuterol/ Ipratropium (Duoneb Neb) 1 ampule Q4HR NEB NEB 07/05/17 16:00 07/09/17 08:14 Lorazepam (Ativan Inj) 1 mg Q4H PRN IV PUSH anxiety 07/05/17 13:00 07/09/17 04:19 Collagenase (Santyl Oint) 1 applic DAILY TOPICAL 07/07/17 09:00 07/08/17 08:32 Methylprednisolone Sodium Succinate (SoluMEDROL INJ) 20 mg Q12HR IV PUSH 07/07/17 09:00 07/09/17 08:56 Budesonide/ Formoterol Fumarate (Symbicort 160-4.5 Inh) 1 puff Q12HR INH 07/07/17 09:00 07/07/17 21:00 Bumetanide (Bumex Inj) 1 mg Q8H IV PUSH 07/07/17 17:00 07/09/17 08:56 Enoxaparin Sodium (Lovenox Inj) 40 mg Q24H SQ 07/09/17 09:00 07/09/17 08:53 Pantoprazole Sodium (Protonix Inj) 40 mg DAILY IV PUSH 07/09/17 09:00 07/09/17 08:54 Potassium Chloride 100 ml @ 25 mls/hr BOLUS ONCE IV 07/09/17 08:30 07/09/17 12:29 07/09/17 09:06 Objective Remarks GENERAL: Middle aged male, chronically ill appearing, sitting up in bed. SKIN: Warm and dry. HEAD: Normocephalic. EYES: No injection or drainage. NECK: Supple, trachea midline. CARDIOVASCULAR: Regular rate and rhythm RESPIRATORY: Breath sounds equal bilaterally. No accessory muscle use. GASTROINTESTINAL: Abdomen soft, non-tender, nondistended. EXTREMITIES: No cyanosis NEUROLOGICAL: awake and alert, normal speech. Assessment/Plan Assessment Mr. Sedalia is a 67-year-old male who was recently diagnosed with metastatic adenocarcinoma of the rectosigmoid colon and had resection of a metastatic deposit to the liver. He is status post primary surgical resection (3-4 weeks ago) as well as wedge resection of a metastatic deposit to the liver and now has C difficile colitis. He has thrombocytopenia with thrombosis to the cephalic and brachial veins. Admitted to colorectal surgery service initially for weakness/abdominal pain. Then 06/18 became tachy and hypotensive. had elevated lactic acid and bandemia. sepsis suspected. Hand Tile Maker was consulted. on 06/20 was intubated d /t hemodynamic instability. platelets also started falling on 06/20. Plan 1. Thrombocytopenia: likely d/t sepsis/DIC, now improved to 49K. ok to proceed with starting Lovenox at 40mg SQ qd. 2. metastatic colon cancer: will discuss after current issues resolve. 3. Left upper extremity thrombosis involving the cephalic and basilic veins on the L side, noted, asymptomatic, will repeat an US doppler if his extremity is more swollen or symptomatic. Attending Statement The exam, history, and the medical decision-making described in the above note were completed with the assistance of the mid-level provider. I reviewed and agree with the findings presented. I attest that I had a [id number] encounter with the patient on the same day, and personally performed and documented my assessment and findings in the medical record. 67 yoM with mestatic colon cancer s/p colectomy and wedge resection of liver metastasis admitted with sepsis hospital course complicated by atrial fibrillation, respiratory failure, Cdiff, consumptive thrombocytopenia, left arm cephalic and basilic vein thrombosis on subq lovenox. Talked with at bedside. She is very upset that he has yet to start chemotherapy post operatively. Discussed that given critical illness and severe infection any chemotherapy that he would receive at this point would cause harm. Once he recovers and is discharged he will follow up in clinic with his primary oncologist for further care. Plt count improving. Continue to monitor counts. Kait Blackmon Jul 09, 2017 11:23 Jeny Flower MD Jul 09, 2017 17:21
--- NOTE | 2017-07-09 11:36 | HHI.PR ---
Subjective Remarks C/R Surg POD afebrile, VSS UO good hussain PO feeds stoma funct Objective - Vital Signs Date Time Temp Pulse Resp B/P (MAP) Pulse Ox O2 Delivery O2 Flow Rate FiO2 07/09/17 08:15 97 Nasal Cannula 3.00 07/09/17 06:00 100 07/09/17 04:00 98.1 34 148/86 (106) 07/06/17 12:00 35 Result Diagram: 07/09/17 0500 07/09/17 0500 Objective Remarks PE alert Abd - soft, wound dry, stoma funct A/P Assessment and Plan Imp: salt poor albumin cont PO diet PT decr IVF Delfino Jerome MD Jul 09, 2017 11:36
[2017-07-09] MEDS: POTASSIUM CHLOR 40 MEQ PREMIX 100 ML IV PRN (14:03)
[2017-07-09] MEDS ORDERED: METOCLOPRAMIDE HCL 10 MG/2 ML VIAL IV PUSH PRN (17:00)
[2017-07-09 22:11] LABS: POTASSIUM 3.8 MEQ/L (3.5-5.1)
[2017-07-09] MEDS: [UNRECOGNIZED DRUG - REMARK] PO SCH (22:42)
[2017-07-10] VITALS (20 sets, daily range): BP systolic 119–152; BP diastolic 68–80; PULSE 79–98; RESP 21–32; TEMP 98–98.7; O2SAT 93–100
[2017-07-10] MEDS: DILTIAZEM HCL 60 MG TAB PO SCH ×4 (01:07→17:41)
[2017-07-10] MEDS: BUMETANIDE INJ 1 MG/4 ML VIAL IV PUSH SCH ×3 (01:07→21:00)
[2017-07-10] MEDS: CEFEPIME INJ 1,000 MG in SODIUM CHLORIDE 0.9% INJ 100 ML IV SCH ×3 (03:00→19:06)
[2017-07-10] MEDS: INSULIN ASPART SUPPLEMENTAL SCALE SQ SCH ×6 (04:00→20:00)
--- NOTE | 2017-07-10 04:09 | RADRPT ---
EXAM DATE/TIME: 07/10/2017 04:39 [facility] COMPARISON: CHEST SINGLE AP, July 09, 2017, 2:21. INDICATIONS : Shortness of breath, possible pulmonary disease. MEDICAL HISTORY : Hypertension. Hypercholesterolemia. SURGICAL HISTORY : None. ENCOUNTER: Subsequent ACUITY: 2 weeks PAIN SCORE: 0/10 LOCATION: Bilateral chest FINDINGS: Single AP view of the chest. Left IJ central venous catheter remains in place. No change in bilateral pulmonary opacity. No change in bilateral pleural effusions. Cardiomediastinal silhouette within nor mal limits. No evidence of pneumothorax. CONCLUSION: No significant change with persistent bilateral pulmonary parenchymal opacity with lower lung zone pr edominance likely worsening pulmonary edema and bilateral pleural effusions. Luis Armando Michel MD on July 10, 2017 at 4:06 Board Certified Radiologist. This report was verified electronically.
[2017-07-10 06:19] LABS: AUTOMATED NEUTROPHIL # 8.5 TH/MM3 (1.8-7.7); BASOPHIL # 0.1 TH/MM3 (0-0.2); BASOPHIL % 0.6 % (0.0-2.0); HEMATOCRIT 29.7 % (39.0-51.0); LYMPH % 10.7 % (9.0-44.0); LYMPHOCYTE # 1.1 TH/MM3 (1.0-4.8); MEAN CORPUSCULAR HEMOGLOBIN 28.1 PG (27.0-34.0); MEAN CORPUSCULAR HGB CONC 31.6 % (32.0-36.0); MONO % 7.7 % (0.0-8.0); PLATELET COUNT 46 TH/MM3 (150-450); RED BLOOD COUNT 3.33 MIL/MM3 (4.50-5.90); RED CELL DISTRIBUTION WIDTH 17.4 % (11.6-17.2); WHITE BLOOD COUNT 10.4 TH/MM3 (4.0-11.0)
[2017-07-10 06:22] LABS: HEMO FLAGS AUTO DIFF
[2017-07-10 06:43] LABS: ALT (GPT) 66 U/L (12-78); ANION GAP 9 MEQ/L (5-15); AST (GOT) 58 U/L (15-37); BLOOD UREA NITROGEN 30 MG/DL (7-18); CHLORIDE 104 MEQ/L (98-107); GLOMERULAR FILTRATION RATE 98 ML/MIN (>89); MAGNESIUM 1.9 MG/DL (1.5-2.5); POTASSIUM 3.4 MEQ/L (3.5-5.1); SODIUM (NA) 140 MEQ/L (136-145)
[2017-07-10 06:45] LABS: ALKALINE PHOSPHATASE 739 U/L (45-117)
[2017-07-10] MEDS: CHLORHEXIDINE 0.12% (ORAL KIT) 15 ML CUP MT SCH (08:00)
[2017-07-10] MEDS: VANCOMYCIN 500 MG VIAL (FOR ORAL USE ONLY) NG SCH ×4 (08:13→21:00)
[2017-07-10] MEDS: POTASSIUM CHLORIDE 25 MEQ EFFERVESCENT TAB PO SCH (08:16)
[2017-07-10] MEDS: PANTOPRAZOLE SODIUM 40 MG VIAL IV PUSH SCH (08:17)
[2017-07-10] MEDS: methylPREDNISolone SOD SUCC 40 MG/1 ML VIAL IV PUSH SCH ×2 (08:17→21:00)
[2017-07-10] MEDS: COLLAGENASE OINT 30 GM TUBE TOPICAL SCH (08:20)
[2017-07-10] MEDS: ENOXAPARIN SODIUM 40 MG/0.4 ML SYRINGE SQ SCH (08:34)
[2017-07-10] MEDS: BUDESONIDE-FORMOTEROL 160/4.5 MCG INHALER INH SCH ×2 (08:37→21:00)
[2017-07-10] MEDS: DIGOXIN 0.5 MG/2 ML VIAL IV PUSH SCH (08:37)
[2017-07-10] MEDS ORDERED: DIPHENOXYLATE/ATROPINE 2.5 MG/0.025 MG TAB PO PRN (11:00)
[2017-07-10] MEDS ORDERED: DIGOXIN 0.125 MG TAB PO SCH (12:45)
--- NOTE | 2017-07-10 12:46 | HHI.CCPN ---
Subjective Remarks/Hospital Course The patient is a 67-year-old male with past medical history of hypertension, metastatic colon cancer, tobacco abuse, who, about 3 weeks ago underwent low anterior resection with low colorectal anastomosis, diverting ileostomy, and resection of a segment of the left ureter with ureteral anastomosis and double- J stent placement. He presented yesterday with 5 day history of abdominal discomfort and increasing weakness. No history of high output from ileostomy. He was admitted to the colorectal surgery for dehydration and probable UTI. He was placed on ciprofloxacin and IV hydration. According to Dr. Geiger's note it was difficult dissection/resection colon mass because of the pelvic sidewall adherence and the adherence to the left ureter. A portion of ureter was resected due to possibility of tumor infiltration, and Dr. Augustine Pelayo re- anastomosed the ureter and placed left-sided double-J stent. Also 1 cm hepatic metastasis in his liver that was excised. Hospitalist consultation was requested for medical management and evaluation of tachycardia today. He was seen by Dr. Jay and was placed on infusion of Cardizem for heart rate 140s. Patient became hypotensive with systolic blood pressure early 90s. Lab work showed WBC 14.5 with 44% bands, creat increase from 1.2 to 1.4 and severely increased lactate at 8 from admission lactate of 2.6. CT of the abdomen pelvis done yesterday showed probable small bowel ileus. I evaluated the patient in the ICU. He is tachycardic in 140s, hypotensive and systolic blood pressure in mid 80s. Clinically appears very dehydrated, an NG tube was placed with approximately 3 L of some coffee-ground output. ABG shows a base excess of -10 and bicarbonate 12. I have ordered 4 liter normal saline boluses start 1 amp of bicarbonate, discontinued the LR infusion, and started bicarb gtt. Discontinue ciprofloxacin, started Zosyn every 6 hours, vancomycin 1 g 1. His elevated lactic acid and bandemia most likely secondary to severe sepsis, ileus, and severe dehydration. Serial lactate is ordered SUBJ 06/19: Lactic acid remains elevated at 6.6 despite getting 9 L of crystalloid boluses in last 24 hours. Tachycardia has improved heart rate in 110s. Remains on vasopressin at 0.04 units/min. Urine output almost 1200 mL overnight, OGT initial output was almost 3 L when placed yesterday a.m. Overnight had 550 mL of greenish brown fluid output. EGD pending today rule out gastric ischemia per Dr. Romero. Apparently Flex sig was negative post op in Dr. Geiger's office 06/20: Developed A. fib with RVR. Heart rate 200. Hemodynamically unstable, synchronized cardioversion attempted by Dr. Morales 100 200 J. Given 3 g mag sulfate and 80 mEq KCl 1, 0.5 digoxin 1 and started on amiodarone and Giorgio- Synephrine. Intubated due to hemodynamic instability. Currently remains sedated. Currently on Giorgio-Synephrine 80 mcg/m, and amiodarone. CT chest abdomen pelvis again confirms gastric and small bowel distention/ileus. UO 1800 ml in 24 hours 06/21: Remains critically ill, intubated sedated, on 100 mcg/min neosynpehrine. HR better controlled. NG output 1500, UO >1.4L. Am labs pending. Ileostomy sample positive for C Diff on PO vanc IV Flagyl. 06/22: Remains intubated sedated. Urine output 3000 mL with Bumex. NGT [address] Geiger did colonoscopy which was normal. Ileoscopy showed pseudomembranous colitis. Currently on 200 mcg/min of neosynephrine. Afib with RVR HR in 140's 06/23: Remains intubated sedated, remains in atrial fibrillation with RVR. Still requiring high doses of Giorgio-Synephrine at 190 mcg/min. UO 2.5L. chest x- ray showed bilateral large effusions. KUB shows improving small bowel distention. WBC count is slightly improved 06/24: Unable to control HR. Repeat shock x3 today. remains in atrial fibrillation with RVR rates 160-170 intermittently. Remains on amiodarone but will discontinued due to elevation of liver enzymes AST 546 ALT 158. (GI notified). Start Cardizem infusion and also give Surjit 0.5 mg 1. Platelet count continues to drop from 67 to today 45. Hematology following will start of Argatroban today. Creatinine has slightly increased to 1.3 to will DC Bumex infusion 06/25: Patient remains intubated sedated critically ill. Heart rate controlled for the first time since atrial fibrillation started. Heart rate remains 80- 90. Urine output 1200 mL in 24 hours but BUN/creatinine increasing 44/1.7. I will hydrate with 50 mL/hr normal saline for 24 hours. Transaminitis increasing AST 1300 ALT 386. Ultrasound of the liver unremarkable GI following 06/26: PTT elevated due to Argatorban/Liver failure. Dr. Hurley has DCd argatroban. SMILEY pending. Pl count is 21. Currently in sinus rhythm on Cardizem infusion. Not on any pressors. Creatinine improved to 1.2. Urine output adequate. Becomes very tachypneic on attempted CPAP. Discussed with Dr. Geiger Will Start Trickle Tube Feeds 06/27: no improvements. off pathway. thrombocytopenia persists. unable to wean from mechanical ventilation. neuro exam poor. will likely need trach. 06/28: platelets worse today. SMILEY not resulted yet. failing SBT and mental status poor. poor prognosis. will need trach and LTAC placement. 06/29: Tmax 101. Currently 99.6. Tolerating trickle tube feeds. Continues to fail spontaneous breathing trials. 06/30: Lasted 1 hour spontaneous breathing trial this AM. 2.5 hours this afternoon. Currently afebrile. Hemoglobin remained stable. 07/01: lasted 4 hours on SBT, except 15 of pressure support, so not ready clinically for extubation, and even after only 4 hours, tired out and became hypoxic and tachypneic. more awake today and following commands. will likely need tracheostomy. 07/02: new fever today, but wbc normal. per ID, will culture and observe, continue flagyl/PO vanc. otherwise no changes. no improvements. 07/03: pseudomonas in sputum and urine. increase in cough and secretions. ID following and added cefepime. still weak and failing SBTs for hypoxia and tachypnea. needs tracheostomy. will need long-term rehab and likely LTAC. 07/04: Wakes up easily, follows commands. On 5 mg/hr versed. CXR pending. UO adequate. Resume SBT. Significant weight gain. approx 15 kg up. Give Bumex 2 mg IV x1 Subjective 07/05: Patient is intubated sedated with 50 g per hour of fentanyl. Urine output 3 L in [address] on scheduled Bumex. Tolerating CPAP at 15/5. bring in Viibryd, which apparently patient had been on for long time. I have resumed it. 07/06: Tolerating CPAP 06/09 better today, Wakes up and following commands. Good UO with Bumex. Chest x-ray basilar opacities essentially unchanged. Increase IV Bumex to 1 mg every 12 07/07: Extubated yesterday tolerating well. Slightly tachypneic but maintain oxygen saturation and no subjective shortness of breath. Urine output remains excellent on Bumex, 2.9L in 24 hours 07/08: Lying on bed breathing comfortably urine output excellent with increased Bumex dose. 5.8 L in 24 hours. WBC count stable. Increase activity up to stretcher chair today 07/09: Tolerating by mouth diet. Eating atleast 50%. TPN reduced by half yesterday. UO remains excellent with diuresis. Attempt TPN wean off today. Breathing comfortably except intermittent tachypnea. 07/10: Appetite better, breathing more comfortably. Off TPN. UO remains excellent. Platelet count slightly dropped to 46 from 49. I will continue steroids at Solu-Medrol 20 mg IV every 12, taper only very slowly Objective Vital Signs Date Time Temp Pulse Resp B/P (MAP) Pulse Ox O2 Delivery O2 Flow Rate FiO2 07/10/17 11:00 82 07/10/17 08:00 98.1 28 137/75 (95) 96 07/09/17 20:26 Nasal Cannula 2.00 07/06/17 12:00 35 Intake and Output 07/10/17 07/10/17 07/11/17 08:00 16:00 00:00 Intake Total 720 ml Output Total 3200 ml Balance -2480 ml Result Diagram: 07/10/175 07/10/17 0405 Imaging Last Impressions Chest X-Ray 06/30/17 06 Signed Impressions: Service Date/Time: June 03:02 - CONCLUSION: 1. Improving bibasilar densities. Sarwat Suarez MD Abdomen X-Ray 06/27/17 06 Signed Impressions: Service Date/Time: Tuesday, June 27, 2017 04:29 - CONCLUSION: Stable abdomen. Sarwat Suarez MD Liver Ultrasound 06/24/17 0000 Signed Impressions: Service Date/Time: Saturday, June 24, 2017 16:38 - CONCLUSION: 1. Small volume ascites. 2. Small right effusion. Pierce Ospina Jr., MD Upper Extremity Ultrasound 06/23/17 Signed Impressions: Service Date/Time: June 20:03 - CONCLUSION: Noncompressibility right cephalic vein and left basilic vein consistent with venous thrombosis Trav Hsieh MD Lower Extremity Ultrasound 06/23/17 0000 Signed Impressions: Service Date/Time: June 20:16 - CONCLUSION: Normal examination. No evidence DVT Trav Hsieh MD Chest CT 06/20/17 Signed Impressions: Service Date/Time: Tuesday, June 20, 2017 07:42 - CONCLUSION: 1. Bilateral effusions and consolidative changes in both lung bases. Bao Lora MD Abdomen/Pelvis CT 06/20/17 Signed Impressions: Service Date/Time: Tuesday, June 20, 2017 07:39 - CONCLUSION: 1. Dilated stomach and multiple dilated loops of small bowel, likely ileus. 2. No definite gastric volvulus. 3. Fat containing right inguinal hernia which also contains small portion of the urinary bladder and minimal fluid. 4. Left-sided nephroureteral stent in good position. 5. Bibasilar consolidation and small pleural effusions. Sarwat Suarez MD Objective Remarks GENERAL: 67-year-old male lying on bed, on NC SKIN: Warm and dry. HEENT: Extraocular muscles intact. NECK: The neck is supple. LIJ central line in place CHEST: Few coarse rhonchi Equal bilaterally. Diminished at bases CVS: S1S2 normal no murmurs. ABDOMEN: Abdomen is soft. Incision appears healing well. Ileostomy is functioning well. EXTREMITIES: No pedal edema or cyanosis NEURO: Alert awake. Moves all extremities, following commands. No focal deficits. Able to move limbs against gravity Date of Insertion: Jun 18, 2017 Side: Left Location: Internal A/P Assessment and Plan PLAN: NEURO: - PRN fentanyl for pain and anxiety. Use PRN Ativan for anxiety - Continue Viibryd home med RESP: Acute hypoxemic respiratory failure-resolved HCAP Pseudomonas Pneumonia COPD with exacerbation - Extubated 07/06/17. Tolerating well - Albuterol/ipratropium every 6 hours with albuterol aerosols every 2 hours PRN. EzPAP Acapella, IS - Symbicort Spirva-07/07/17 - IV solumedrol 20 q12 -change to QD from 07/11 if platelet count not dropping CV: Atrial fibrillation with RVR - now rate controlled Fluid overload - Cardioverted several times without success and amiodarone started for A. fib with RVR - Amio DCd 06/24 due to Liver enzyme elevation. Placed on on Cardizem infusion and Digoxin. very resistant afib and difficult to control. - On PO Cardizem 60 q6 and change digoxin to PO - IV Heparin discontinued due to HIT screen positive hematology consulted. Argatroban DCd 06/[address] Hurley SMILEY negative. On Lovenox now - s/p Normal saline IV fluids 8L boluses on 06/18/17. Now off maintenance fluid - Scheduled Bumex 1 mg IV q8h, with excellent diuresis, reduce to 1 mg IV q12 - 2D Echo normal LV function GI: s/p Left colectomy with colorectal anastomosis, diverting ileostomy, wedge resection of liver metastasis C Diff enteritis/ileitis Transaminitis Hypernatremia/hyperbilirubinemia secondary to cholestasis - TPN weaned off 07/09/17. PO diet tolerating well - Pantoprazole 40 mg IV daily-changed to PO - Transaminitis most likely secondary to amiodarone and TPN and hypotension, interval worsening AST 1300, ALT 386, now improved, near normal - Elevated bilirubin and alkaline phosphatase most likely from Cholestasis secondary to TPN. off now, if not improving c rpt lier US 07/11 - Gastroenterology Dr. Saldana. EGD 06/19. Evidence of esophagitis, and erythematous gastritis in the gastric body and gastric antrum - C Diff positive from ileostomy sample indicating C Diff enteritis. On PO vanc and IV Flagyl - Dr. Geiger 06/22. Colonoscopy normal. Ileoscopy severe pseudomembranous ileitis - IV metoclopramide [address] abdomen pelvis and KUB shows small bowel ileus., KUB 06/23 improving ileus - Continue Alvimopan 12 mg every 12 hours for ileus : s/p Partial resection of the left ureter with anastomosis and placement of double-J stent - Monitor renal function closely. Han catheter. UO excellent - Bumex, 1 mg IV q8-changed to IV q12 today ID: - ID Dr. Espinoza. PO Vancomycin and IV metronidazole for C diff enteritis - F/u blood and urine culture -negative to date - Cefepime started 07/03 for PSAE in sputum complete 8-10 day course-STOP if ok with ID. HEME: Thrombocytopenia likely consumptive secondary to sepsis, hit screen positive SMILEY negative Normocytic anemia - Monitor CBC, CMP/ Plt remain low, multifactorial from severe sepsis, medication, and previous pelvic irradiation - HIT ruled out. Slowly improving plt after starting steroid for COPD, today 46 - Argatroban started 06/24/17, DCd 06/26/[address] Hurley. According to Dr. Hurley elevated PTT secondary to decreased liver clearance of argatroban. Back on Lovenox. ENDO: Hypophosphatemia Hypokalemia - Electrolyte replacement per protocol - Sliding-scale insulin to maintain euglycemia PROPH: -Bilateral lower extremity SCDs. Currently on enoxaparin DVT dose, IV pantoprazole 40 q12 LINES: - Left IJ central line, radial art line Critically ill stable. Multi organ involvement overall improving. Extubated 07/06. Will need rehab for generalized weakness and debility Level 2 Increase mobility, PT/OT Shiva Segovia MD Jul 10, 2017 12:46
[2017-07-10] MEDS: RESP: ALBUTEROL 2.5 MG/IPRATROPIUM 0.5 MG NEB (SCH) NEB ×3 (13:28→22:17)
[2017-07-10 14:49] LABS: BANDS 6 % (0-6); BLASTS 1 % (0-0); CORRECTED NUCLEATED RBC 6 /100 WBC (0-0); METAMYELOCYTES 1 % (0-1); MYELOCYTES 2 % (0-0); NEUTROPHIL # MANUAL DIFF 9.6 TH/MM3 (1.8-7.7); POLYS (SEG NEUTROPHILS) 83 % (16-70); WBC DIFF SAMPLE 100
[2017-07-10 14:50] LABS: PLATELET ESTIMATE SMEAR LOW (NORMAL); PLATELET MORPHOLOGY ENLARGED (NORMAL); SCAN/DIFF FINAL DIFF MANUAL; TARGET CELLS 1+ (NORMAL)
[2017-07-10 14:51] LABS: HOWELL-JOLLY BODIES PRESENT (NONE SEEN)
[2017-07-10] MEDS ORDERED: methylPREDNISolone SOD SUCC 40 MG/1 ML VIAL IV PUSH SCH (21:00)
[2017-07-10] MEDS: [UNRECOGNIZED DRUG - REMARK] PO SCH (21:00)
--- NOTE | 2017-07-10 21:35 | HHI.PR ---
Subjective Remarks C/R Surg POD afebrile, VSS UO great hussain PO feeds stoma funct, liq stool Objective - Vital Signs Date Time Temp Pulse Resp B/P (MAP) Pulse Ox O2 Delivery O2 Flow Rate FiO2 07/10/17 18:00 83 07/10/17 16:00 98.3 32 119/69 (86) 98 07/10/17 08:43 Nasal Cannula 3.00 07/06/17 12:00 35 Result Diagram: 07/10/1740407/10/17404 Objective Remarks PE alert Abd - soft, wound dry, stoma funct A/P Assessment and Plan Imp: salt poor albumin cont PO diet PT decr IVF Delfino Johnson MD Jul 10, 2017 21:35
[2017-07-11] VITALS (20 sets, daily range): BP systolic 104–143; BP diastolic 57–83; PULSE 75–90; RESP 20–31; TEMP 97.4–98.5; O2SAT 96–100
[2017-07-11] MEDS: DILTIAZEM HCL 60 MG TAB PO SCH ×5 (01:06→23:53)
[2017-07-11] MEDS: CEFEPIME INJ 1,000 MG in SODIUM CHLORIDE 0.9% INJ 100 ML IV SCH ×3 (03:40→18:05)
[2017-07-11] MEDS: RESP: ALBUTEROL 2.5 MG/IPRATROPIUM 0.5 MG NEB (SCH) NEB ×4 (04:00→21:50)
[2017-07-11] MEDS: INSULIN ASPART SUPPLEMENTAL SCALE SQ SCH ×6 (04:00→21:00)
[2017-07-11] MEDS: BUDESONIDE-FORMOTEROL 160/4.5 MCG INHALER INH SCH ×2 (09:00→21:00)
--- NOTE | 2017-07-11 09:10 | PD.ONC.PN ---
Subjective Subjective Remarks Patient seen and examined, Vitals, labs and medications reviewed. Subjectively, the patient reports not being able to eat much, he is limited to a liquid diet. He is breathing comfortably, he does have a cough producing scant phlegm. He denies pain. There were no acute cardio-pulmonary events over the weekend. There has been no documented overt bleeding. Objective Data Date Time Temp Pulse Resp B/P (MAP) Pulse Ox O2 Delivery O2 Flow Rate FiO2 07/11/17 06:00 80 07/11/17 04:00 98.5 81 27 129/72 (91) 100 07/11/17 04:00 81 07/11/17 02:00 79 07/11/17 00:00 98.3 80 31 127/69 (88) 100 07/11/17 00:00 80 07/10/17 22:18 100 Nasal Cannula 3.00 07/10/17 22:00 81 07/10/17 20:00 98.1 85 26 152/73 (99) 99 07/10/17 20:00 85 07/10/17 18:00 83 07/10/17 17:00 81 07/10/17 16:00 98.3 84 32 119/69 (86) 98 07/10/17 16:00 84 07/10/17 15:00 84 07/10/17 14:00 86 07/10/17 13:00 81 07/10/17 12:00 80 07/10/17 12:00 98.0 80 32 128/68 (88) 100 Arterial Line 07/10/17 11:00 82 07/10/17 10:00 85 07/11/17 07/11/17 07/11/17 07:00 15:00 23:00 Intake Total 960 ml Output Total 1050 ml Balance -90 ml Result Diagram: 07/10/175 07/10/175 Administered Medications Medications (Trade) Dose Ordered Sig/[place] Route PRN Reason Start Time Stop Time Status Last Admin Dose Admin Acetaminophen/ Hydrocodone Bitart ([place] 5-325 Mg) 1 tab Q4H PRN PO PAIN SCALE 1 TO 5 06/17/17 22:00 07/09/17 04:19 Acetaminophen/ Hydrocodone Bitart ([place] 5-325 Mg) 2 tab Q4H PRN PO PAIN SCALE 6 TO 10 06/17/17 22:00 11/4/17 00:20 Ondansetron HCl (Zofran Inj) 4 mg Q4H PRN IV PUSH NAUSEA/VOMITING 06/17/17 22:00 06/18/17 09:45 Miscellaneous Information Patient in critical care unit? Ass... [id number] .XX 06/18/17 05:45 06/18/17 05:45 Potassium Chloride 100 ml @ 50 mls/hr Q2H PRN IV For Potassium 2.8 - 3.2 mEq/L 06/19/17 07:45 07/09/17 14:03 Potassium Bicarb/ Potassium Chloride (K-Lyte Cl Eff) 50 meq UNSCH PRN PO For Potassium 3.3 - 3.5 mEq/L 06/19/17 07:45 07/10/17 08:33 Potassium Chloride 100 ml @ 50 mls/hr Q2H PRN IV For Potassium 3.3 - 3.5 mEq/L 06/19/17 07:45 06/22/17 17:22 Sodium Phosphate 30 mmol/Sodium Chloride 250 ml @ 42 mls/hr UNSCH PRN IV For Phosphorus < 2.5 mg/dL 06/19/17 07:45 07/01/17 06:24 Insulin Aspart (NovoLOG SUPPLEMENTAL SCALE) 1 Q4HR SQ 06/19/17 12:00 07/06/17 08:28 Vancomycin HCl (VANCOMYCIN for oral use only) 500 mg QID NG 06/19/17 18:00 07/10/17 21:00 Albuterol Sulfate (Albuterol Neb) 2.5 mg Q2HR NEB PRN NEB DYSPNEA 06/29/17 14:30 07/05/17 08:44 Cefepime HCl 1000 mg/Sodium Chloride 100 ml @ 200 mls/hr Q8H IV 07/03/17 11:00 07/11/17 03:40 Potassium Bicarb/ Potassium Chloride (K-Lyte Cl Eff) 25 meq DAILY PO 07/05/17 12:00 07/10/17 08:16 Non-Formulary Medication 40 mg HS PO 07/05/17 21:00 07/10/17 21:00 Diltiazem HCl (Cardizem) 60 mg Q6HR PO 07/05/17 12:45 07/11/17 06:35 Collagenase (Santyl Oint) 1 applic DAILY TOPICAL 07/07/17 09:00 07/10/17 08:20 Budesonide/ Formoterol Fumarate (Symbicort 160-4.5 Inh) 1 puff Q12HR INH 07/07/17 09:00 07/10/17 21:00 Enoxaparin Sodium (Lovenox Inj) 40 mg Q24H SQ 07/09/17 09:00 07/10/17 08:34 Bumetanide (Bumex Inj) 1 mg Q12HR IV PUSH 07/10/17 21:00 07/10/17 21:00 Methylprednisolone Sodium Succinate (SoluMEDROL INJ) 20 mg Q12HR IV PUSH 07/10/17 21:00 07/10/17 21:00 Albuterol/ Ipratropium (Duoneb Neb) 1 ampule Q6HR NEB NEB 07/10/17 12:45 07/10/17 22:17 Objective Remarks GENERAL APPEARANCE: Mr. Armendariz is a middle-aged/elderly male. He is laying in bed. He is awake and alert responsive. He speaks with a hoarse voice. HEENT: Head atraumatic, normocephalic. Conjunctivae are pale. Sclerae are anicteric, EOMI, PERRLA, oral exam no pharyngeal erythema. NECK: No palpable cervical or supraclavicular lymphadenopathy. RESPIRATORY: Good air movement bilaterally. Coarse conducted breath sounds. He has prolonged expiratory phase. He is initiating multiple spontaneous breaths. CARDIOVASCULAR: Irregular, tachycardiac, S1 S2, no obvious murmurs, rubs or gallops. ABDOMEN: The belly is soft. An ileostomy bag is noted containing liquid stools. A well-healing laparotomy incision in the midline is appreciated. The abdomen does not appear to be distended, there appears to be no significant increase in tympany on percussion. There are no signs of acute abdomen. LOWER EXTREMITIES: No pretibial edema, no calf tenderness. Upper extremities: Right upper extremity with edema. MUSCULOSKELETAL: There appears to be muscle atrophy. 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 Assessment/Plan Assessment Mr. Armendariz is a 67-year-old male who was recently diagnosed with metastatic adenocarcinoma of the rectosigmoid colon and had resection of a metastatic deposit to the liver. He is status post primary surgical resection (3-4 weeks ago) as well as wedge resection of a metastatic deposit to the liver and now has C difficile colitis. He has thrombocytopenia with thrombosis to the cephalic and brachial veins. Admitted to colorectal surgery service initially for weakness/abdominal pain. Then 06/18 became tachy and hypotensive. had elevated lactic acid and bandemia. sepsis suspected. Isobutylene Operator Chief was consulted. on 06/20 was intubated d /t hemodynamic instability. platelets also started falling on 06/20. Plan 1. Thrombocytopenia: likely d/t sepsis/DIC, PLT count appears stable at about 40K. No overt bleeding. 2. Metastatic colon cancer: will discuss after current issues resolve. 3. Left upper extremity thrombosis involving the cephalic and basilic veins on the L side, noted, asymptomatic, will repeat an US doppler if his extremity is more swollen or symptomatic. He is on prophylactic dose anticoagulation with lovenox. Continue on going care. Clinically he is gradually improving. Faraz Ryan MD Jul 11, 2017 09:10
[2017-07-11] MEDS: DIGOXIN 0.125 MG TAB PO SCH (09:42)
[2017-07-11] MEDS: PANTOPRAZOLE SOD 40 MG DELAYED RELEASE TAB PO SCH (09:42)
[2017-07-11] MEDS: ENOXAPARIN SODIUM 40 MG/0.4 ML SYRINGE SQ SCH (09:42)
[2017-07-11] MEDS: POTASSIUM CHLORIDE 25 MEQ EFFERVESCENT TAB PO SCH (09:42)
[2017-07-11] MEDS: BUMETANIDE INJ 1 MG/4 ML VIAL IV PUSH SCH ×2 (09:43→21:31)
[2017-07-11] MEDS: VANCOMYCIN 500 MG VIAL (FOR ORAL USE ONLY) NG SCH ×4 (09:43→21:31)
[2017-07-11] MEDS: methylPREDNISolone SOD SUCC 40 MG/1 ML VIAL IV PUSH SCH ×2 (09:43→21:31)
--- NOTE | 2017-07-11 11:39 | HHI.PR ---
Subjective Remarks Pt doing amazingly well. Continue to diurese aggressively. Pt says that he is eating well and tolerating solids fine. Says that his decubitus is painful. Needs wound care and PT and eventually rehab placement. Possibly [facility]. Objective Vital Signs Date Time Temp Pulse Resp B/P (MAP) Pulse Ox O2 Delivery O2 Flow Rate FiO2 07/11/17 09:27 97 Nasal Cannula 3.00 07/11/17 06:00 80 07/11/17 04:00 98.5 81 27 129/72 (91) 100 07/11/17 04:00 81 07/11/17 02:00 79 07/11/17 00:00 98.3 80 31 127/69 (88) 100 07/11/17 00:00 80 07/10/17 22:18 100 Nasal Cannula 3.00 07/10/17 22:00 81 07/10/17 20:00 98.1 85 26 152/73 (99) 99 07/10/17 20:00 85 07/10/17 18:00 83 07/10/17 17:00 81 07/10/17 16:00 98.3 84 32 119/69 (86) 98 07/10/17 16:00 84 07/10/17 15:00 84 07/10/17 14:00 86 07/10/17 13:00 81 07/10/17 12:00 80 07/10/17 12:00 98.0 80 32 128/68 (88) 100 Arterial Line I/O 07/10/17 07/10/17 07/10/17 07/11/17 07/11/17 07/11/17 07:00 15:00 23:00 07:00 15:00 23:00 Intake Total 720 ml 100 ml 1150 ml 960 ml Output Total 3200 ml 1500 ml 1050 ml Balance -2480 ml 100 ml -350 ml -90 ml Intake Oral 720 ml 1050 ml 960 ml IV Total 100 ml 100 ml Output Urine Total 3050 ml 1100 ml 1000 ml Stool Total 150 ml 400 ml 50 ml Result Diagram: 07/10/1740407/10/17404 Objective Remarks VS-S Rate controlled Gen: Pt comfortable Abd: Soft. Flat. Wound healed. Stoma working. I&Os: OK Assessment and Plan Assessment and Plan Decubitus Deconditioned Decubitus may need debridement Pureed foods OOB Will need inpatient rehab Luca Geiger MD Jul 11, 2017 11:39
[2017-07-11] MEDS: COLLAGENASE OINT 30 GM TUBE TOPICAL SCH (12:25)
--- NOTE | 2017-07-11 14:31 | HHI.CCPN ---
Subjective Remarks/Hospital Course The patient is a 67-year-old male with past medical history of hypertension, metastatic colon cancer, tobacco abuse, who, about 3 weeks ago underwent low anterior resection with low colorectal anastomosis, diverting ileostomy, and resection of a segment of the left ureter with ureteral anastomosis and double- J stent placement. He presented yesterday with 5 day history of abdominal discomfort and increasing weakness. No history of high output from ileostomy. He was admitted to the colorectal surgery for dehydration and probable UTI. He was placed on ciprofloxacin and IV hydration. According to Dr. Geiger's note it was difficult dissection/resection colon mass because of the pelvic sidewall adherence and the adherence to the left ureter. A portion of ureter was resected due to possibility of tumor infiltration, and Dr. Augustine Pelayo re- anastomosed the ureter and placed left-sided double-J stent. Also 1 cm hepatic metastasis in his liver that was excised. Hospitalist consultation was requested for medical management and evaluation of tachycardia today. He was seen by Dr. Jay and was placed on infusion of Cardizem for heart rate 140s. Patient became hypotensive with systolic blood pressure early 90s. Lab work showed WBC 14.5 with 44% bands, creat increase from 1.2 to 1.4 and severely increased lactate at 8 from admission lactate of 2.6. CT of the abdomen pelvis done yesterday showed probable small bowel ileus. I evaluated the patient in the ICU. He is tachycardic in 140s, hypotensive and systolic blood pressure in mid 80s. Clinically appears very dehydrated, an NG tube was placed with approximately 3 L of some coffee-ground output. ABG shows a base excess of -10 and bicarbonate 12. I have ordered 4 liter normal saline boluses start 1 amp of bicarbonate, discontinued the LR infusion, and started bicarb gtt. Discontinue ciprofloxacin, started Zosyn every 6 hours, vancomycin 1 g 1. His elevated lactic acid and bandemia most likely secondary to severe sepsis, ileus, and severe dehydration. Serial lactate is ordered SUBJ 06/19: Lactic acid remains elevated at 6.6 despite getting 9 L of crystalloid boluses in last 24 hours. Tachycardia has improved heart rate in 110s. Remains on vasopressin at 0.04 units/min. Urine output almost 1200 mL overnight, OGT initial output was almost 3 L when placed yesterday a.m. Overnight had 550 mL of greenish brown fluid output. EGD pending today rule out gastric ischemia per Dr. Romero. Apparently Flex sig was negative post op in Dr. Geiger's office 06/20: Developed A. fib with RVR. Heart rate 200. Hemodynamically unstable, synchronized cardioversion attempted by Dr. Morales 100 200 J. Given 3 g mag sulfate and 80 mEq KCl 1, 0.5 digoxin 1 and started on amiodarone and Giorgio- Synephrine. Intubated due to hemodynamic instability. Currently remains sedated. Currently on Giorgio-Synephrine 80 mcg/m, and amiodarone. CT chest abdomen pelvis again confirms gastric and small bowel distention/ileus. UO 1800 ml in 24 hours 06/21: Remains critically ill, intubated sedated, on 100 mcg/min neosynpehrine. HR better controlled. NG output 1500, UO >1.4L. Am labs pending. Ileostomy sample positive for C Diff on PO vanc IV Flagyl. 06/22: Remains intubated sedated. Urine output 3000 mL with Bumex. NGT [address] Geiger did colonoscopy which was normal. Ileoscopy showed pseudomembranous colitis. Currently on 200 mcg/min of neosynephrine. Afib with RVR HR in 140's 06/23: Remains intubated sedated, remains in atrial fibrillation with RVR. Still requiring high doses of Giorgio-Synephrine at 190 mcg/min. UO 2.5L. chest x- ray showed bilateral large effusions. KUB shows improving small bowel distention. WBC count is slightly improved 06/24: Unable to control HR. Repeat shock x3 today. remains in atrial fibrillation with RVR rates 160-170 intermittently. Remains on amiodarone but will discontinued due to elevation of liver enzymes AST 546 ALT 158. (GI notified). Start Cardizem infusion and also give Surjit 0.5 mg 1. Platelet count continues to drop from 67 to today 45. Hematology following will start of Argatroban today. Creatinine has slightly increased to 1.3 to will DC Bumex infusion 06/25: Patient remains intubated sedated critically ill. Heart rate controlled for the first time since atrial fibrillation started. Heart rate remains 80- 90. Urine output 1200 mL in 24 hours but BUN/creatinine increasing 44/1.7. I will hydrate with 50 mL/hr normal saline for 24 hours. Transaminitis increasing AST 1300 ALT 386. Ultrasound of the liver unremarkable GI following 06/26: PTT elevated due to Argatorban/Liver failure. Dr. Hurley has DCd argatroban. SMILEY pending. Pl count is 21. Currently in sinus rhythm on Cardizem infusion. Not on any pressors. Creatinine improved to 1.2. Urine output adequate. Becomes very tachypneic on attempted CPAP. Discussed with Dr. Geiger Will Start Trickle Tube Feeds 06/27: no improvements. off pathway. thrombocytopenia persists. unable to wean from mechanical ventilation. neuro exam poor. will likely need trach. 06/28: platelets worse today. SMILEY not resulted yet. failing SBT and mental status poor. poor prognosis. will need trach and LTAC placement. 06/29: Tmax 101. Currently 99.6. Tolerating trickle tube feeds. Continues to fail spontaneous breathing trials. 06/30: Lasted 1 hour spontaneous breathing trial this AM. 2.5 hours this afternoon. Currently afebrile. Hemoglobin remained stable. 07/01: lasted 4 hours on SBT, except 15 of pressure support, so not ready clinically for extubation, and even after only 4 hours, tired out and became hypoxic and tachypneic. more awake today and following commands. will likely need tracheostomy. 07/02: new fever today, but wbc normal. per ID, will culture and observe, continue flagyl/PO vanc. otherwise no changes. no improvements. 07/03: pseudomonas in sputum and urine. increase in cough and secretions. ID following and added cefepime. still weak and failing SBTs for hypoxia and tachypnea. needs tracheostomy. will need long-term rehab and likely LTAC. 07/04: Wakes up easily, follows commands. On 5 mg/hr versed. CXR pending. UO adequate. Resume SBT. Significant weight gain. approx 15 kg up. Give Bumex 2 mg IV x1 07/05: Patient is intubated sedated with 50 g per hour of fentanyl. Urine output 3 L in [address] on scheduled Bumex. Tolerating CPAP at 15/5. bring in Viibryd, which apparently patient had been on for long time. I have resumed it. 07/06: Tolerating CPAP /5 better today, Wakes up and following commands. Good UO with Bumex. Chest x-ray basilar opacities essentially unchanged. Increase IV Bumex to 1 mg every 12 07/07: Extubated yesterday tolerating well. Slightly tachypneic but maintain oxygen saturation and no subjective shortness of breath. Urine output remains excellent on Bumex, 2.9L in 24 hours 07/08: Lying on bed breathing comfortably urine output excellent with increased Bumex dose. 5.8 L in 24 hours. WBC count stable. Increase activity up to stretcher chair today 07/09: Tolerating by mouth diet. Eating atleast 50%. TPN reduced by half yesterday. UO remains excellent with diuresis. Attempt TPN wean off today. Breathing comfortably except intermittent tachypnea. 07/10: Appetite better, breathing more comfortably. Off TPN. UO remains excellent. Platelet count slightly dropped to 46 from 49. I will continue steroids at Solu-Medrol 20 mg IV every 12, taper only very slowly Subjective 07/11: Afebrile. Resting comfortably in bed. On nasal cannula. Reviewed vascular note does not want sacral decubitus debridement/ Objective Vital Signs Date Time Temp Pulse Resp B/P (MAP) Pulse Ox O2 Delivery O2 Flow Rate FiO2 07/11/17 13:00 86 29 115/57 (76) 97 07/11/17 12:01 97.7 07/11/17 09:27 Nasal Cannula 3.00 Intake and Output 07/11/17 07/11/17 07/12/17 08:00 16:00 00:00 Intake Total 960 ml Output Total 1050 ml Balance -90 ml Result Diagram: 07/10/17 0405 07/10/17 0405 Other Results Microbiology Date/Time Source Procedure Growth Status 07/02/17 18:54 Blood Peripheral Aerobic Blood Culture - Final NO GROWTH IN 5 DAYS Complete 07/02/17 18:54 Blood Peripheral Anaerobic Blood Culture - Final NO GROWTH IN 5 DAYS Complete 07/02/17 17:00 Sputum Endotracheal Gram Stain - Final Complete 07/02/17 17:00 Sputum Culture - Final Pseudomonas Aeruginosa Complete 07/02/17 15:45 Urine Clean Catch Urine Culture - Final Pseudomonas Aeruginosa Complete Imaging Last Impressions Chest X-Ray 07/10/17 0600 Signed Impressions: Service Date/Time: Monday, July 10, 2017 04:39 - CONCLUSION: No significant change with persistent bilateral pulmonary parenchymal opacity with lower lung zone predominance likely worsening pulmonary edema and bilateral pleural effusions. Luis Armando Michel MD Abdomen X-Ray 07/06/17 0000 Signed Impressions: Service Date/Time: Thursday, July 06, 2017 13:44 - CONCLUSION: 1. Gaseous distention of multiple bowel loops. This has slightly improved. 2. Left-sided nephroureteral stent in good position. Sarwat Suarez MD Liver Ultrasound 06/24/17 0000 Signed Impressions: Service Date/Time: Saturday, June 24, 2017 16:38 - CONCLUSION: 1. Small volume ascites. 2. Small right effusion. Pierce Ospina Jr., MD Upper Extremity Ultrasound 06/23/17 0000 Signed Impressions: Service Date/Time: June 20:03 - CONCLUSION: Noncompressibility right cephalic vein and left basilic vein consistent with venous thrombosis Trav Hsieh MD Lower Extremity Ultrasound 06/23/17 0000 Signed Impressions: Service Date/Time: June 20:16 - CONCLUSION: Normal examination. No evidence DVT Trav Hsieh MD Chest CT 06/20/17 0000 Signed Impressions: Service Date/Time: Tuesday, June 20, 2017 07:42 - CONCLUSION: 1. Bilateral effusions and consolidative changes in both lung bases. Bao Lora MD Abdomen/Pelvis CT 06/20/17 0000 Signed Impressions: Service Date/Time: Tuesday, June 20, 2017 07:39 - CONCLUSION: 1. Dilated stomach and multiple dilated loops of small bowel, likely ileus. 2. No definite gastric volvulus. 3. Fat containing right inguinal hernia which also contains small portion of the urinary bladder and minimal fluid. 4. Left-sided nephroureteral stent in good position. 5. Bibasilar consolidation and small pleural effusions. Sarwat Suarez MD Objective Remarks GENERAL: 67-year-old male lying on bed, on NC SKIN: Warm and dry. HEENT: Extraocular muscles intact. NECK: The neck is supple. LIJ central line has been removed CHEST: Few coarse rhonchi Equal bilaterally. Diminished at bases CVS: S1S2 normal no murmurs. ABDOMEN: Abdomen is soft. Incision appears healing well. Ileostomy is functioning well. EXTREMITIES: No pedal edema or cyanosis. Positive sacral decubitus ulcer NEURO: Alert awake. Moves all extremities, following commands. No focal deficits. Able to move limbs against gravity Date of Insertion: Jun 18, 2017 Side: Left Location: Internal A/P Assessment and Plan PLAN: NEURO: - PRN fentanyl for pain and anxiety. Use PRN Ativan for anxiety - Continue vilazodone 40 mg daily for depression/home med RESP: Acute hypoxemic respiratory failure-resolved HCAP Pseudomonas Pneumonia COPD with exacerbation - Extubated 07/06/17. Tolerating well - Albuterol/ipratropium every 6 hours with albuterol aerosols every 2 hours PRN. EzPAP Acapella, IS - Symbicort 160/4.5 one inhalation twice a day-07/07/17 - IV methylprednisolone 20 q12 CV: Atrial fibrillation with RVR - now rate controlled Fluid overload - Cardioverted several times without success and amiodarone started for A. fib with RVR - Amio DCd 06/24 due to Liver enzyme elevation. Placed on on Cardizem infusion and Digoxin. very resistant afib and difficult to control. - On PO Cardizem 60 q6 and change digoxin to 125 mg to PO - IV Heparin discontinued due to HIT screen positive hematology consulted. Argatroban DCd 06/[address] Hurley SMILEY negative. On enoxaparin now - s/p Normal saline IV fluids 8L boluses on 06/18/17. Now off maintenance fluid - Scheduled Bumetanide 1 mg IV q12 - 2D Echo normal LV function GI: s/p Left colectomy with colorectal anastomosis, diverting ileostomy, wedge resection of liver metastasis C Diff enteritis/ileitis Transaminitis Hypernatremia/hyperbilirubinemia secondary to cholestasis - TPN weaned off 07/09/17. PO diet tolerating well - Pantoprazole 40 mg IV daily-changed to PO - Transaminitis most likely secondary to amiodarone and TPN and hypotension, interval worsening AST 1300, ALT 386, now improved, near normal - Elevated bilirubin and alkaline phosphatase most likely from Cholestasis secondary to TPN. off now, if not improving c rpt lier US 07/11 - Gastroenterology Dr. Saldana. EGD 06/19. Evidence of esophagitis, and erythematous gastritis in the gastric body and gastric antrum - C Diff positive from ileostomy sample indicating C Diff enteritis. On PO vancomycin - Dr. Geiger 06/22. Colonoscopy normal. Ileoscopy severe pseudomembranous ileitis - IV metoclopramide 5 mg q8hr. has been discontinued Prev CT abdomen pelvis and KUB shows small bowel ileus., KUB 06/23 improving ileus -Currently off Alvimopan 12 mg every 12 hours for ileus : s/p Partial resection of the left ureter with anastomosis and placement of double-J stent - Monitor renal function closely. Han catheter. UO excellent - Bumetadine IV q12 today ID: - ID Dr. Espinoza. PO Vancomycin for C diff enteritis - F/u blood and urine culture -negative to date - Cefepime started 07/03 for PSAE in sputum complete 8-10 day discontinue id HEME: Thrombocytopenia likely consumptive secondary to sepsis, hit screen positive SMILEY negative Normocytic anemia - Monitor CBC, CMP/ Plt remain low, multifactorial from severe sepsis, medication, and previous pelvic irradiation - HIT ruled out. Slowly improving plt after starting steroid for COPD, today 46 - Argatroban started 06/24/17, DCd 06/26/[address] Hurley. According to Dr. Hurley elevated PTT secondary to decreased liver clearance of argatroban. Back on enoxaparin ENDO: Hypophosphatemia Hypokalemia - Electrolyte replacement per protocol - Sliding-scale insulin to maintain euglycemia On schedule KCl 25 mEq daily PROPH: -Bilateral lower extremity SCDs. Currently on enoxaparin DVT dose, oral Protonix 40 mg daily LINES: - Left IJ central line, radial art line all discontinued it peripheral IVs Critically ill stable. Multi organ involvement overall improving. Extubated 07/06. Will need rehab for generalized weakness and debility Level 2 We'll assign care to hospitalist in a.m. 07/12. Leroy Musa MD Jul 11, 2017 14:31
--- NOTE | 2017-07-11 14:51 | HHI.IDPN ---
Note Infectious Disease Note Patient is wake and alert. No complaints. Afebrile. Admitted to the hospital with weakness, abdominal pain and nausea. The patient is status post anterior resection of colon and rectal areas and anastomosis along with a diverting ileostomy and also resection of a segment of left ureter with ureteral anastomosis and double-J stent placement three weeks prior. PAST MEDICAL HISTORY: 1. Hypertension. 2. Left knee surgery. 3. Metastatic colon cancer status post resection and coloanal anastomosis and also resection and re-anastomosis of the left ureter with double-J stent placement. ALLERGIES: CODEINE. Current Medications Medications (Trade) Dose Ordered Sig/[place] Route PRN Reason Start Time Stop Time Status Last Admin Dose Admin Acetaminophen/ Hydrocodone Bitart ([place] 5-325 Mg) 1 tab Q4H PRN PO PAIN SCALE 1 TO 5 06/17/17 22:00 07/09/17 04:19 Acetaminophen/ Hydrocodone Bitart ([place] 5-325 Mg) 2 tab Q4H PRN PO PAIN SCALE 6 TO 10 06/17/17 22:00 07/09/17 00:20 Ondansetron HCl (Zofran Inj) 4 mg Q4H PRN IV PUSH NAUSEA/VOMITING 06/17/17 22:00 06/18/17 09:45 Miscellaneous Information Patient in critical care unit? Ass... Q361D .XX 06/18/17 05:45 06/18/17 05:45 Potassium Chloride 100 ml @ 50 mls/hr Q2H PRN IV For Potassium 2.8 - 3.2 mEq/L 06/19/17 07:45 07/09/17 14:03 Potassium Chloride 100 ml @ 50 mls/hr Q2H PRN IV For Potassium 2.8 - 3.2 mEq/L 06/19/17 07:45 Potassium Bicarb/ Potassium Chloride (K-Lyte Cl Eff) 50 meq UNSCH PRN PO For Potassium 3.3 - 3.5 mEq/L 06/19/17 07:45 07/10/17 08:33 Potassium Chloride 100 ml @ 25 mls/hr UNSCH PRN IV For Potassium 3.3 - 3.5 mEq/L 06/19/17 07:45 Potassium Chloride 100 ml @ 50 mls/hr Q2H PRN IV For Potassium 3.3 - 3.5 mEq/L 06/19/17 07:45 06/22/17 17:22 Magnesium Sulfate 4 gm/Sodium Chloride 100 ml @ 50 mls/hr UNSCH PRN IV For Magnesium 0.9 - 1.1 mg/dL 06/19/17 07:45 Magnesium Sulfate 2 gm/Sodium Chloride 100 ml @ 50 mls/hr UNSCH PRN IV For Magnesium 1.2 - 1.6 mg/dL 06/19/17 07:45 Potassium Phosphate (K-Phos) 2,000 mg Q4H PRN PO For Phosphorus < 2.5 mg/dL 06/19/17 07:45 Sodium Phosphate 30 mmol/Sodium Chloride 250 ml @ 42 mls/hr UNSCH PRN IV For Phosphorus < 2.5 mg/dL 06/19/17 07:45 07/01/17 06:24 Potassium Phosphate (K-Phos) 2,000 mg UNSCH PRN PO/TUBE SEE LABEL COMMENTS 06/19/17 07:45 Potassium Phosphate 30 mmol/ Sodium Chloride 260 ml @ 42 mls/hr UNSCH PRN IV SEE LABEL COMMENTS 06/19/17 07:45 Vancomycin HCl (VANCOMYCIN for oral use only) 500 mg QID NG 06/19/17 18:00 07/11/17 12:23 Albuterol Sulfate (Albuterol Neb) 2.5 mg Q2HR NEB PRN NEB DYSPNEA 06/29/17 14:30 07/05/17 08:44 Cefepime HCl 1000 mg/Sodium Chloride 100 ml @ 200 mls/hr Q8H IV 07/03/17 11:00 07/11/17 11:00 Potassium Bicarb/ Potassium Chloride (K-Lyte Cl Eff) 25 meq DAILY PO 07/05/17 12:00 07/11/17 09:42 Non-Formulary Medication 40 mg HS PO 07/05/17 21:00 07/10/17 21:00 Diltiazem HCl (Cardizem) 60 mg Q6HR PO 07/05/17 12:45 07/11/17 12:23 Collagenase (Santyl Oint) 1 applic DAILY TOPICAL 07/07/17 09:00 07/11/17 12:25 Budesonide/ Formoterol Fumarate (Symbicort 160-4.5 Inh) 1 puff Q12HR INH 07/07/17 09:00 07/10/17 21:00 Enoxaparin Sodium (Lovenox Inj) 40 mg Q24H SQ 07/09/17 09:00 07/11/17 09:42 Bumetanide (Bumex Inj) 1 mg Q12HR IV PUSH 07/10/17 21:00 07/11/17 09:43 Diphenoxylate HCl/ Atropine (Lomotil Tab) 1 tab Q6H PRN PO loose stool 07/10/17 11:00 Methylprednisolone Sodium Succinate (SoluMEDROL INJ) 20 mg Q12HR IV PUSH 07/10/17 21:00 07/11/17 09:43 Pantoprazole Sodium (Protonix) 40 mg DAILY PO 07/11/17 09:00 07/11/17 09:42 Albuterol/ Ipratropium (Duoneb Neb) 1 ampule Q6HR NEB NEB 07/10/17 12:45 07/11/17 09:27 Digoxin (Lanoxin) 0.125 mg DAILY PO 07/11/17 09:00 07/11/17 09:42 Insulin Aspart (NovoLOG SUPPLEMENTAL SCALE) 1 ACHS SQ 07/11/17 17:00 UNV SOCIAL HISTORY: . Positive tobacco use. No alcohol. No illicit drug use. OBJECTIVE: Vital Signs Date Time Temp Pulse Resp B/P (MAP) Pulse Ox O2 Delivery O2 Flow Rate FiO2 07/11/17 13:00 86 29 115/57 (76) 97 07/11/17 12:01 97.7 89 28 128/65 (86) 99 07/11/17 12:00 86 20 99 07/11/17 11:00 85 29 104/61 (75) 100 07/11/17 10:00 89 28 110/63 (79) 99 07/11/17 09:27 97 Nasal Cannula 3.00 07/11/17 09:00 75 25 130/71 (90) 96 07/11/17 08:00 98.0 85 26 129/70 (89) 97 07/11/17 07:00 80 27 143/80 (101) 99 07/11/17 06:00 80 07/11/17 04:00 98.5 81 27 129/72 (91) 100 07/11/17 04:00 81 07/11/17 02:00 79 07/11/17 00:00 98.3 80 31 127/69 (88) 100 07/11/17 00:00 80 07/10/17 22:18 100 Nasal Cannula 3.00 07/10/17 22:00 81 07/10/17 20:00 98.1 85 26 152/73 (99) 99 07/10/17 20:00 85 07/10/17 18:00 83 07/10/17 17:00 81 07/10/17 16:00 98.3 84 32 119/69 (86) 98 07/10/17 16:00 84 07/10/17 15:00 84 Laboratory Tests Test 07/10/17 04:05 White Blood Count 10.4 TH/MM3 Red Blood Count 3.33 MIL/MM3 Hemoglobin 9.4 GM/DL Hematocrit 29.7 % Mean Corpuscular Volume 89.0 FL Mean Corpuscular Hemoglobin 28.1 PG Mean Corpuscular Hemoglobin Concent 31.6 % Red Cell Distribution Width 17.4 % Platelet Count 46 TH/MM3 Mean Platelet Volume 11.8 FL Neutrophils (%) (Auto) 81.0 % Lymphocytes (%) (Auto) 10.7 % Monocytes (%) (Auto) 7.7 % Eosinophils (%) (Auto) 0.0 % Basophils (%) (Auto) 0.6 % Neutrophils # (Auto) 8.5 TH/MM3 Lymphocytes # (Auto) 1.1 TH/MM3 Monocytes # (Auto) 0.8 TH/MM3 Eosinophils # (Auto) 0.0 TH/MM3 Basophils # (Auto) 0.1 TH/MM3 CBC Comment AUTO DIFF Differential Total Cells Counted 100 Neutrophils % (Manual) 83 % Band Neutrophils % 6 % Lymphocytes % 3 % Monocytes % 4 % Neutrophils # (Manual) 9.6 TH/MM3 Metamyelocytes 1 % Myelocytes 2 % Nucleated Red Blood Cells 6 /100 WBC Differential Comment FINAL DIFF MANUAL Blastocytes 1 % Platelet Estimate LOW Platelet Morphology Comment ENLARGED Target Cells 1+ [place] Bodies PRESENT Laboratory Tests Test 07/09/17 20:15 07/10/17 04:05 Potassium Level 3.8 MEQ/L 3.4 MEQ/L Phosphorus Level 2.0 MG/DL 2.6 MG/DL Blood Urea Nitrogen 30 MG/DL Creatinine 0.79 MG/DL Random Glucose 113 MG/DL Total Protein 6.0 GM/DL Albumin 1.7 GM/DL Calcium Level 7.5 MG/DL Magnesium Level 1.9 MG/DL Alkaline Phosphatase 739 U/L Aspartate Amino Transf (AST/SGOT) 58 U/L Alanine Aminotransferase (ALT/SGPT) 66 U/L Total Bilirubin 6.0 MG/DL Sodium Level 140 MEQ/L Chloride Level 104 MEQ/L Carbon Dioxide Level 27.0 MEQ/L Anion Gap 9 MEQ/L Estimat Glomerular Filtration Rate 98 ML/MIN Microbiology Date/Time Source Procedure Growth Status 07/02/17 18:54 Blood Peripheral Aerobic Blood Culture - Preliminary NO GROWTH IN 3 DAYS Resulted 07/02/17 18:54 Blood Peripheral Anaerobic Blood Culture - Preliminary NO GROWTH IN 3 DAYS Resulted 07/02/17 18:49 Blood Peripheral Aerobic Blood Culture - Preliminary NO GROWTH IN 3 DAYS Resulted 07/02/17 18:49 Blood Peripheral Anaerobic Blood Culture - Preliminary NO GROWTH IN 3 DAYS Resulted 07/02/17 17:00 Sputum Endotracheal Gram Stain - Final Complete 07/02/17 17:00 Sputum Culture - Final Pseudomonas Aeruginosa Complete 07/02/17 15:45 Urine Clean Catch Urine Culture - Final Pseudomonas Aeruginosa Complete IMAGING: Chest X-Ray 07/10/17599 Signed Impressions: Service Date/Time: Monday, July 10, 2017 04:39 - CONCLUSION: No significant change with persistent bilateral pulmonary parenchymal opacity with lower lung zone predominance likely worsening pulmonary edema and bilateral pleural effusions. Luis Armando Michel MD Chest X-Ray 07/06/17599 Signed Impressions: Service Date/Time: Thursday, July 06, 2017 03:52 - CONCLUSION: No significant interval change Luca Trinidad MD PHYSICAL EXAMINATION: GENERAL: No acute distress. HEENT: No icterus. Oropharynx with dry mucosa. NECK: Supple. LUNGS: Good air movement. Slight decreased breath sounds. HEART: Regular S1-S2 without murmurs, rubs or gallops. ABDOMEN: Positive bowel sounds. Soft. EXTREMITIES: No clubbing or cyanosis, edema. SKIN: No rash. NEUROLOGIC: Nonfocal. IMPRESSION: 1. Severe sepsis/ Bandemia. Status post recent surgery for rectal cancer and recent ureteral resection and double J ureteral stent. 2. C difficile colitis. Pseudomembranous enteritis/sepsis. 3. Acute respiratory failure. 4. Abnormal CXR - probable atelectasis. 5. Leukocytosis. Improved. WBC now normal. 6. Elevated LFT's. improving. 7. Pseudomonas pneumonia and UTI. Clinically stable. RECOMMENDATIONS: 1. Continue PO Vancomycin. 2. Continue Cefepime anoter couple of days. 3. Monitor temps. El Espinoza MD Jul 11, 2017 14:51
[2017-07-11] MEDS ORDERED: DEXTROSE 50% IN WATER 50 ML VIAL(D50) IV PUSH PRN (15:00)
[2017-07-11] MEDS ORDERED: GLUCAGON 1 MG/ML VIAL OTHER PRN (15:00)
[2017-07-11 17:55] LABS: AUTOMATED NEUTROPHIL # 8.1 TH/MM3 (1.8-7.7); BASOPHIL % 0.1 % (0.0-2.0); HEMATOCRIT 32.8 % (39.0-51.0); LYMPH % 4.1 % (9.0-44.0); LYMPHOCYTE # 0.4 TH/MM3 (1.0-4.8); MEAN CELL VOLUME 91.2 FL (80.0-100.0); MEAN CORPUSCULAR HEMOGLOBIN 28.9 PG (27.0-34.0); MEAN CORPUSCULAR HGB CONC 31.7 % (32.0-36.0); MONO % 7.4 % (0.0-8.0); NEUT % 88.4 % (16.0-70.0); PLATELET COUNT 60 TH/MM3 (150-450); RED CELL DISTRIBUTION WIDTH 19.2 % (11.6-17.2); WHITE BLOOD COUNT 9.1 TH/MM3 (4.0-11.0)
[2017-07-11 17:56] LABS: HEMO FLAGS AUTO DIFF
[2017-07-11 17:59] LABS: BICARBONATE 24.5 MEQ/L (21.0-32.0); POTASSIUM 3.3 MEQ/L (3.5-5.1)
[2017-07-11 19:03] LABS: BANDS 1 % (0-6); CORRECTED NUCLEATED RBC 5 /100 WBC (0-0); METAMYELOCYTES 2 % (0-1); NEUTROPHIL # MANUAL DIFF 8.6 TH/MM3 (1.8-7.7); POLYS (SEG NEUTROPHILS) 91 % (16-70); WBC DIFF SAMPLE 100
[2017-07-11 19:04] LABS: PLATELET ESTIMATE SMEAR LOW (NORMAL); PLATELET MORPHOLOGY NORMAL (NORMAL); SCAN/DIFF FINAL DIFF MANUAL
[2017-07-11 19:11] LABS: HOWELL-JOLLY BODIES PRESENT (NONE SEEN)
[2017-07-11 19:12] LABS: TARGET CELLS 1+ (NORMAL)
[2017-07-11] MEDS: [UNRECOGNIZED DRUG - REMARK] PO SCH (21:00)
[2017-07-11] MEDS: POTASSIUM CHLOR 20 MEQ PREMIX 100 ML IV PRN (22:45)
[2017-07-11] MEDS: ACETAMINOPHEN/HYDROcodone 325 MG/5 MG TAB PO PRN (23:34)
[2017-07-12] VITALS (18 sets, daily range): BP systolic 112–142; BP diastolic 58–93; PULSE 71–113; RESP 17–28; TEMP 97.3–98.2; O2SAT 71–100
[2017-07-12] MEDS: POTASSIUM CHLOR 20 MEQ PREMIX 100 ML IV PRN (00:59)
[2017-07-12] MEDS: CEFEPIME INJ 1,000 MG in SODIUM CHLORIDE 0.9% INJ 100 ML IV SCH ×3 (03:15→18:43)
[2017-07-12] MEDS: RESP: ALBUTEROL 2.5 MG/IPRATROPIUM 0.5 MG NEB (SCH) NEB ×4 (03:34→21:59)
[2017-07-12 04:23] LABS: AUTOMATED NEUTROPHIL # 8.3 TH/MM3 (1.8-7.7); BASOPHIL % 0.1 % (0.0-2.0); HEMATOCRIT 29.3 % (39.0-51.0); LYMPH % 9.5 % (9.0-44.0); LYMPHOCYTE # 0.9 TH/MM3 (1.0-4.8); MEAN CELL VOLUME 89.1 FL (80.0-100.0); MEAN CORPUSCULAR HEMOGLOBIN 28.2 PG (27.0-34.0); MEAN CORPUSCULAR HGB CONC 31.6 % (32.0-36.0); MONO % 6.9 % (0.0-8.0); NEUT % 83.5 % (16.0-70.0); PLATELET COUNT 61 TH/MM3 (150-450); RED BLOOD COUNT 3.29 MIL/MM3 (4.50-5.90); RED CELL DISTRIBUTION WIDTH 18.5 % (11.6-17.2)
[2017-07-12 04:30] LABS: HEMO FLAGS AUTO DIFF
[2017-07-12 05:03] LABS: BICARBONATE 23.3 MEQ/L (21.0-32.0); CALCIUM-PROTEIN CORRECTED 8.2 MG/DL (8.5-10.1); MAGNESIUM 2.1 MG/DL (1.5-2.5); TOTAL BILIRUBIN ADULT 6.4 MG/DL (0.2-1.0)
[2017-07-12] MEDS: DILTIAZEM HCL 60 MG TAB PO SCH ×3 (05:14→18:43)
[2017-07-12 05:25] LABS: BANDS 2 % (0-6); CORRECTED NUCLEATED RBC 2 /100 WBC (0-0); EOSINOPHILS 1 % (0-4); METAMYELOCYTES 2 % (0-1); MYELOCYTES 2 % (0-0); POLYS (SEG NEUTROPHILS) 84 % (16-70); WBC DIFF SAMPLE 100
[2017-07-12 05:26] LABS: HOWELL-JOLLY BODIES PRESENT (NONE SEEN); TARGET CELLS 1+ (NORMAL)
[2017-07-12 05:28] LABS: PLATELET MORPHOLOGY ENLARGED (NORMAL)
[2017-07-12 05:32] LABS: PLATELET ESTIMATE SMEAR LOW (NORMAL)
[2017-07-12 05:33] LABS: SCAN/DIFF FINAL DIFF MANUAL
--- NOTE | 2017-07-12 07:46 | PD.ONC.PN ---
Subjective Subjective Remarks Pt was seen and examined, VS, labs and meds were reviewed. He reports he wants to get up out of bed. He tells me his PO intake is minimal. He did work with PT yesterday in bed. There were no acute cardio-pulmonary events overnight. His PLT count is up to 60K; there is no evidence of overt bleeding. Objective Data Date Time Temp Pulse Resp B/P (MAP) Pulse Ox O2 Delivery O2 Flow Rate FiO2 07/12/17 06:00 76 07/12/17 04:00 75 07/12/17 04:00 97.3 75 21 125/70 (88) 99 07/12/17 02:00 75 07/12/17 00:00 97.4 84 17 136/83 (100) 71 07/12/17 00:00 84 07/11/17 22:00 90 07/11/17 21:50 100 Nasal Cannula 3.00 07/11/17 20:00 90 07/11/17 20:00 97.4 90 26 131/83 (99) 96 07/11/17 18:00 85 07/11/17 16:00 98.0 83 26 120/61 (80) 96 07/11/17 16:00 83 07/11/17 15:00 78 27 119/63 (81) 96 07/11/17 14:00 79 07/11/17 14:00 79 28 114/61 (78) 98 07/11/17 13:00 86 29 115/57 (76) 97 07/11/17 12:01 97.7 89 28 128/65 (86) 99 07/11/17 12:00 86 20 99 07/11/17 12:00 86 07/11/17 11:00 85 29 104/61 (75) 100 07/11/17 10:00 89 07/11/17 10:00 89 28 110/63 (79) 99 07/11/17 09:27 97 Nasal Cannula 3.00 07/11/17 09:00 75 25 130/71 (90) 96 07/11/17 08:00 85 07/11/17 08:00 98.0 85 26 129/70 (89) 97 07/12/17 07/12/17 07/12/17 07:00 15:00 23:00 Intake Total 440 ml Output Total 1240 ml Balance -800 ml Result Diagram: 07/12/17 0342 07/12/17 0342 Laboratory Results Laboratory Tests Test 07/11/17 17:07 07/12/17 03:42 White Blood Count 9.1 TH/MM3 10.0 TH/MM3 Red Blood Count 3.60 MIL/MM3 3.29 MIL/MM3 Hemoglobin 10.4 GM/DL 9.3 GM/DL Hematocrit 32.8 % 29.3 % Mean Corpuscular Volume 91.2 FL 89.1 FL Mean Corpuscular Hemoglobin 28.9 PG 28.2 PG Mean Corpuscular Hemoglobin Concent 31.7 % 31.6 % Red Cell Distribution Width 19.2 % 18.5 % Platelet Count 60 TH/MM3 61 TH/MM3 Mean Platelet Volume 11.7 FL 11.8 FL Neutrophils (%) (Auto) 88.4 % 83.5 % Lymphocytes (%) (Auto) 4.1 % 9.5 % Monocytes (%) (Auto) 7.4 % 6.9 % Eosinophils (%) (Auto) 0.0 % 0.0 % Basophils (%) (Auto) 0.1 % 0.1 % Neutrophils # (Auto) 8.1 TH/MM3 8.3 TH/MM3 Lymphocytes # (Auto) 0.4 TH/MM3 0.9 TH/MM3 Monocytes # (Auto) 0.7 TH/MM3 0.7 TH/MM3 Eosinophils # (Auto) 0.0 TH/MM3 0.0 TH/MM3 Basophils # (Auto) 0.0 TH/MM3 0.0 TH/MM3 CBC Comment AUTO DIFF AUTO DIFF Differential Total Cells Counted 100 100 Neutrophils % (Manual) 91 % 84 % Band Neutrophils % 1 % 2 % Lymphocytes % 1 % 4 % Monocytes % 5 % 5 % Neutrophils # (Manual) 8.6 TH/MM3 9.0 TH/MM3 Metamyelocytes 2 % 2 % Nucleated Red Blood Cells 5 /100 WBC 2 /100 WBC Differential Comment FINAL DIFF MANUAL FINAL DIFF MANUAL Platelet Estimate LOW LOW Platelet Morphology Comment NORMAL ENLARGED Target Cells 1+ 1+ Tear Drop Cells [place] Bodies PRESENT PRESENT Blood Urea Nitrogen 39 MG/DL 37 MG/DL Creatinine 0.98 MG/DL 0.92 MG/DL Random Glucose 118 MG/DL 109 MG/DL Calcium Level 7.6 MG/DL 7.4 MG/DL Sodium Level 137 MEQ/L 139 MEQ/L Potassium Level 3.3 MEQ/L 4.0 MEQ/L Chloride Level 103 MEQ/L 106 MEQ/L Carbon Dioxide Level 24.5 MEQ/L 23.3 MEQ/L Anion Gap 10 MEQ/L 10 MEQ/L Estimat Glomerular Filtration Rate 76 ML/MIN 82 ML/MIN Eosinophils % 1 % Myelocytes 2 % Total Protein 5.7 GM/DL Albumin 1.6 GM/DL Phosphorus Level 2.7 MG/DL Magnesium Level 2.1 MG/DL Alkaline Phosphatase 655 U/L Aspartate Amino Transf (AST/SGOT) 41 U/L Alanine Aminotransferase (ALT/SGPT) 56 U/L Total Bilirubin 6.4 MG/DL Protein Corrected Calcium 8.2 MG/DL Administered Medications Medications (Trade) Dose Ordered Sig/[place] Route PRN Reason Start Time Stop Time Status Last Admin Dose Admin Acetaminophen/ Hydrocodone Bitart ([place] 5-325 Mg) 1 tab Q4H PRN PO PAIN SCALE 1 TO 5 06/17/17 22:00 07/09/17 04:19 Acetaminophen/ Hydrocodone Bitart ([place] 5-325 Mg) 2 tab Q4H PRN PO PAIN SCALE 6 TO 10 06/17/17 22:00 07/11/17 23:34 Ondansetron HCl (Zofran Inj) 4 mg Q4H PRN IV PUSH NAUSEA/VOMITING 06/17/17 22:00 06/18/17 09:45 Miscellaneous Information Patient in critical care unit? Ass... Q361D .XX 06/18/17 05:45 06/18/17 05:45 Potassium Chloride 100 ml @ 50 mls/hr Q2H PRN IV For Potassium 2.8 - 3.2 mEq/L 06/19/17 07:45 07/09/17 14:03 Potassium Bicarb/ Potassium Chloride (K-Lyte Cl Eff) 50 meq UNSCH PRN PO For Potassium 3.3 - 3.5 mEq/L 06/19/17 07:45 07/10/17 08:33 Potassium Chloride 100 ml @ 50 mls/hr Q2H PRN IV For Potassium 3.3 - 3.5 mEq/L 06/19/17 07:45 07/12/17 00:59 Sodium Phosphate 30 mmol/Sodium Chloride 250 ml @ 42 mls/hr UNSCH PRN IV For Phosphorus < 2.5 mg/dL 06/19/17 07:45 10/27/17 06:24 Vancomycin HCl (VANCOMYCIN for oral use only) 500 mg QID NG 06/19/17 18:00 07/11/17 21:31 Albuterol Sulfate (Albuterol Neb) 2.5 mg Q2HR NEB PRN NEB DYSPNEA 06/29/17 14:30 07/05/17 08:44 Cefepime HCl 1000 mg/Sodium Chloride 100 ml @ 200 mls/hr Q8H IV 07/03/17 11:00 07/12/17 03:15 Potassium Bicarb/ Potassium Chloride (K-Lyte Cl Eff) 25 meq DAILY PO 07/05/17 12:00 07/11/17 09:42 Non-Formulary Medication 40 mg HS PO 07/05/17 21:00 07/10/17 21:00 Diltiazem HCl (Cardizem) 60 mg Q6HR PO 07/05/17 12:45 07/12/17 05:14 Collagenase (Santyl Oint) 1 applic DAILY TOPICAL 07/07/17 09:00 07/11/17 12:25 Budesonide/ Formoterol Fumarate (Symbicort 160-4.5 Inh) 1 puff Q12HR INH 07/07/17 09:00 07/11/17 21:00 Enoxaparin Sodium (Lovenox Inj) 40 mg Q24H SQ 07/09/17 09:00 07/11/17 09:42 Bumetanide (Bumex Inj) 1 mg Q12HR IV PUSH 07/10/17 21:00 07/11/17 21:31 Methylprednisolone Sodium Succinate (SoluMEDROL INJ) 20 mg Q12HR IV PUSH 07/10/17 21:00 07/11/17 21:31 Pantoprazole Sodium (Protonix) 40 mg DAILY PO 07/11/17 09:00 07/11/17 09:42 Albuterol/ Ipratropium (Duoneb Neb) 1 ampule Q6HR NEB NEB 07/10/17 12:45 07/11/17 21:50 Digoxin (Lanoxin) 0.125 mg DAILY PO 07/11/17 09:00 07/11/17 09:42 Insulin Aspart (NovoLOG SUPPLEMENTAL SCALE) 1 ACHS SQ 07/11/17 17:00 07/11/17 21:00 Objective Remarks GENERAL APPEARANCE: Mr. Armendariz is a middle-aged/elderly male. He is laying in bed. He is awake and alert responsive. He speaks with a hoarse voice. HEENT: Head atraumatic, normocephalic. Conjunctivae are pale. Sclerae are anicteric, EOMI, PERRLA, oral exam no pharyngeal erythema. NECK: No palpable cervical or supraclavicular lymphadenopathy. RESPIRATORY: Good air movement bilaterally. Coarse conducted breath sounds. He has prolonged expiratory phase. He is initiating multiple spontaneous breaths. CARDIOVASCULAR: Irregular, tachycardiac, S1 S2, no obvious murmurs, rubs or gallops. ABDOMEN: The belly is soft. An ileostomy bag is noted containing liquid stools. A well-healing laparotomy incision in the midline is appreciated. The abdomen does not appear to be distended, there appears to be no significant increase in tympany on percussion. There are no signs of acute abdomen. LOWER EXTREMITIES: No pretibial edema, no calf tenderness. Upper extremities: Right upper extremity with edema. MUSCULOSKELETAL: There appears to be muscle atrophy. MUFFLE WORKER: No spontaneous movement of the limbs. Assessment/Plan Assessment Mr. Armendariz is a 67-year-old male who was recently diagnosed with metastatic adenocarcinoma of the rectosigmoid colon and had resection of a metastatic deposit to the liver. He is status post primary surgical resection (3-4 weeks ago) as well as wedge resection of a metastatic deposit to the liver and now has C difficile colitis. He has thrombocytopenia with thrombosis to the cephalic and brachial veins. Admitted to colorectal surgery service initially for weakness/abdominal pain. Then 06/18 became tachy and hypotensive. had elevated lactic acid and bandemia. sepsis suspected. Primer Inspector was consulted. on 06/20 was intubated d /t hemodynamic instability. platelets also started falling on 06/20. Plan 1. Thrombocytopenia: likely d/t sepsis/DIC, PLT count is improving gradually and is now up to 60 K. No overt bleeding. 2. Metastatic colon cancer: will discuss after current issues resolve. 3. Left upper extremity thrombosis involving the cephalic and basilic veins on the L side, noted, asymptomatic, will repeat an US doppler if his extremity is more swollen or symptomatic. He is on prophylactic dose anticoagulation with lovenox. Continue on going care. Encouraged PO intake. He will need extensive rehab. Likely will require in patient rehab. Faraz Ryan MD Jul 12, 2017 07:46
[2017-07-12] MEDS: INSULIN ASPART SUPPLEMENTAL SCALE SQ SCH ×4 (08:00→21:00)
[2017-07-12] MEDS: PANTOPRAZOLE SOD 40 MG DELAYED RELEASE TAB PO SCH (08:19)
[2017-07-12] MEDS: ENOXAPARIN SODIUM 40 MG/0.4 ML SYRINGE SQ SCH (08:19)
[2017-07-12] MEDS: VANCOMYCIN 500 MG VIAL (FOR ORAL USE ONLY) NG SCH ×4 (08:19→21:44)
[2017-07-12] MEDS: DIGOXIN 0.125 MG TAB PO SCH (08:19)
[2017-07-12] MEDS: BUMETANIDE INJ 1 MG/4 ML VIAL IV PUSH SCH ×2 (08:20→21:44)
[2017-07-12] MEDS: POTASSIUM CHLORIDE 25 MEQ EFFERVESCENT TAB PO SCH (08:20)
[2017-07-12] MEDS: methylPREDNISolone SOD SUCC 40 MG/1 ML VIAL IV PUSH SCH ×2 (08:20→21:44)
[2017-07-12] MEDS: COLLAGENASE OINT 30 GM TUBE TOPICAL SCH (08:23)
[2017-07-12] MEDS: BUDESONIDE-FORMOTEROL 160/4.5 MCG INHALER INH SCH ×2 (08:36→21:00)
--- NOTE | 2017-07-12 13:52 | HHI.PR ---
Subjective Remarks Pt doing amazingly well. Continue to diurese aggressively. Pt says that he is eating well and tolerating solids Objective Vital Signs Date Time Temp Pulse Resp B/P (MAP) Pulse Ox O2 Delivery O2 Flow Rate FiO2 07/12/17 13:00 82 25 117/68 (84) 98 07/12/17 12:00 97.8 82 25 112/61 (78) 97 07/12/17 12:00 82 07/12/17 11:00 81 27 112/59 (76) 99 07/12/17 10:25 98 Nasal Cannula 2.00 07/12/17 10:00 76 07/12/17 10:00 76 24 118/58 (78) 80 07/12/17 09:01 83 28 134/75 (94) 97 07/12/17 08:00 97.9 113 20 133/93 (106) 100 07/12/17 08:00 84 07/12/17 07:00 83 20 142/70 (94) 100 07/12/17 06:00 76 07/12/17 04:00 75 07/12/17 04:00 97.3 75 21 125/70 (88) 99 07/12/17 02:00 75 07/12/17 00:00 97.4 84 17 136/83 (100) 71 07/12/17 00:00 84 07/11/17 22:00 90 07/11/17 21:50 100 Nasal Cannula 3.00 07/11/17 20:00 90 07/11/17 20:00 97.4 90 26 131/83 (99) 96 07/11/17 18:00 85 07/11/17 16:00 98.0 83 26 120/61 (80) 96 07/11/17 16:00 83 07/11/17 15:00 78 27 119/63 (81) 96 07/11/17 14:00 79 07/11/17 14:00 79 28 114/61 (78) 98 I/O 07/11/17 07/11/17 07/11/17 07/12/17 07/12/17 07/12/17 07:00 15:00 23:00 07:00 15:00 23:00 Intake Total 960 ml 100 ml 340 ml 440 ml 100 ml Output Total 1050 ml 750 ml 1240 ml Balance -90 ml 100 ml -410 ml -800 ml 100 ml Intake Oral 960 ml 240 ml 140 ml IV Total 100 ml 100 ml 300 ml 100 ml Output Urine Total 1000 ml 700 ml 1200 ml Stool Total 50 ml 50 ml 40 ml # Voids 5 Result Diagram: 07/12/1734107/12/17341 Objective Remarks VS-S Rate controlled Gen: Pt comfortable Abd: Soft. Flat. Wound healed. Stoma working.Stools thick I&Os: OK Labs: Bilirubin and Alk phos continues to rise despite stopping TPN Assessment and Plan Assessment and Plan Decubitus Deconditioned Decubitus may need debridement-Will ask Gen Surgery to assess Pureed foods OOB Will need inpatient rehab Will ask GI to eval Bilirubin and Alk phos Luca Geiger MD Jul 12, 2017 13:52
--- NOTE | 2017-07-12 15:24 | HHI.PR ---
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 He presented yesterday with 5 day history of abdominal discomfort and increasing weakness. No history of high output from ileostomy. He was admitted to the colorectal surgery for dehydration and probable UTI. He was placed on ciprofloxacin and IV hydration. According to Dr. Geiger's note it was difficult dissection/resection colon mass because of the pelvic sidewall adherence and the adherence to the left ureter. A portion of ureter was resected due to possibility of tumor infiltration, and Dr. Augustine Pelayo re- anastomosed the ureter and placed left-sided double-J stent. Also 1 cm hepatic metastasis in his liver that was excised. Hospitalist consultation was requested for medical management and evaluation of tachycardia today. He was seen by Dr. Jay and was placed on infusion of Cardizem for heart rate 140s. Patient became hypotensive with systolic blood pressure early 90s. Lab work showed WBC 14.5 with 44% bands, creat increase from 1.2 to 1.4 and severely increased lactate at 8 from admission lactate of 2.6. CT of the abdomen pelvis done yesterday showed probable small bowel ileus. I evaluated the patient in the ICU. He is tachycardic in 140s, hypotensive and systolic blood pressure in mid 80s. Clinically appears very dehydrated, an NG tube was placed with approximately 3 L of some coffee-ground output. ABG shows a base excess of -10 and bicarbonate 12. I have ordered 4 liter normal saline boluses start 1 amp of bicarbonate, discontinued the LR infusion, and started bicarb gtt. Discontinue ciprofloxacin, started Zosyn every 6 hours, vancomycin 1 g 1. His elevated lactic acid and bandemia most likely secondary to severe sepsis, ileus, and severe dehydration. Serial lactate is ordered SUBJ 06/19: Lactic acid remains elevated at 6.6 despite getting 9 L of crystalloid boluses in last 24 hours. Tachycardia has improved heart rate in 110s. Remains on vasopressin at 0.04 units/min. Urine output almost 1200 mL overnight, OGT initial output was almost 3 L when placed yesterday a.m. Overnight had 550 mL of greenish brown fluid output. EGD pending today rule out gastric ischemia per Dr. Romero. Apparently Flex sig was negative post op in Dr. Geiger's office 06/20: Developed A. fib with RVR. Heart rate 200. Hemodynamically unstable, synchronized cardioversion attempted by Dr. Morales 100 200 J. Given 3 g mag sulfate and 80 mEq KCl 1, 0.5 digoxin 1 and started on amiodarone and Giorgio- Synephrine. Intubated due to hemodynamic instability. Currently remains sedated. Currently on Giorgio-Synephrine 80 mcg/m, and amiodarone. CT chest abdomen pelvis again confirms gastric and small bowel distention/ileus. UO 1800 ml in 24 hours 06/21: Remains critically ill, intubated sedated, on 100 mcg/min neosynpehrine. HR better controlled. NG output 1500, UO >1.4L. Am labs pending. Ileostomy sample positive for C Diff on PO vanc IV Flagyl. 06/22: Remains intubated sedated. Urine output 3000 mL with Bumex. NGT [address] Geiger did colonoscopy which was normal. Ileoscopy showed pseudomembranous colitis. Currently on 200 mcg/min of neosynephrine. Afib with RVR HR in 140's 06/23: Remains intubated sedated, remains in atrial fibrillation with RVR. Still requiring high doses of Giorgio-Synephrine at 190 mcg/min. UO 2.5L. chest x- ray showed bilateral large effusions. KUB shows improving small bowel distention. WBC count is slightly improved 06/24: Unable to control HR. Repeat shock x3 today. remains in atrial fibrillation with RVR rates 160-170 intermittently. Remains on amiodarone but will discontinued due to elevation of liver enzymes AST 546 ALT 158. (GI notified). Start Cardizem infusion and also give Surjit 0.5 mg 1. Platelet count continues to drop from 67 to today 45. Hematology following will start of Argatroban today. Creatinine has slightly increased to 1.3 to will DC Bumex infusion 06/25: Patient remains intubated sedated critically ill. Heart rate controlled for the first time since atrial fibrillation started. Heart rate remains 80- 90. Urine output 1200 mL in 24 hours but BUN/creatinine increasing 44/1.7. I will hydrate with 50 mL/hr normal saline for 24 hours. Transaminitis increasing AST 1300 ALT 386. Ultrasound of the liver unremarkable GI following 06/26: PTT elevated due to Argatorban/Liver failure. Dr. Hurley has DCd argatroban. SMILEY pending. Pl count is 21. Currently in sinus rhythm on Cardizem infusion. Not on any pressors. Creatinine improved to 1.2. Urine output adequate. Becomes very tachypneic on attempted CPAP. Discussed with Dr. Geiger Will Start Trickle Tube Feeds 06/27: no improvements. off pathway. thrombocytopenia persists. unable to wean from mechanical ventilation. neuro exam poor. will likely need trach. 06/28: platelets worse today. SMILEY not resulted yet. failing SBT and mental status poor. poor prognosis. will need trach and LTAC placement. 06/29: Tmax 101. Currently 99.6. Tolerating trickle tube feeds. Continues to fail spontaneous breathing trials. 06/30: Lasted 1 hour spontaneous breathing trial this AM. 2.5 hours this afternoon. Currently afebrile. Hemoglobin remained stable. 07/01: lasted 4 hours on SBT, except 15 of pressure support, so not ready clinically for extubation, and even after only 4 hours, tired out and became hypoxic and tachypneic. more awake today and following commands. will likely need tracheostomy. 07/02: new fever today, but wbc normal. per ID, will culture and observe, continue flagyl/PO vanc. otherwise no changes. no improvements. 07/03: pseudomonas in sputum and urine. increase in cough and secretions. ID following and added cefepime. still weak and failing SBTs for hypoxia and tachypnea. needs tracheostomy. will need long-term rehab and likely LTAC. 07/04: Wakes up easily, follows commands. On 5 mg/hr versed. CXR pending. UO adequate. Resume SBT. Significant weight gain. approx 15 kg up. Give Bumex 2 mg IV x1 07/05: Patient is intubated sedated with 50 g per hour of fentanyl. Urine output 3 L in [address] on scheduled Bumex. Tolerating CPAP at 15/5. bring in Viibryd, which apparently patient had been on for long time. I have resumed it. 07/06: Tolerating CPAP /5 better today, Wakes up and following commands. Good UO with Bumex. Chest x-ray basilar opacities essentially unchanged. Increase IV Bumex to 1 mg every 12 07/07: Extubated yesterday tolerating well. Slightly tachypneic but maintain oxygen saturation and no subjective shortness of breath. Urine output remains excellent on Bumex, 2.9L in 24 hours 07/08: Lying on bed breathing comfortably urine output excellent with increased Bumex dose. 5.8 L in 24 hours. WBC count stable. Increase activity up to stretcher chair today 07/09: Tolerating by mouth diet. Eating atleast 50%. TPN reduced by half yesterday. UO remains excellent with diuresis. Attempt TPN wean off today. Breathing comfortably except intermittent tachypnea. 07/10: Appetite better, breathing more comfortably. Off TPN. UO remains excellent. Platelet count slightly dropped to 46 from 49. I will continue steroids at Solu-Medrol 20 mg IV every 12, taper only very slowly 07/11: Afebrile. Resting comfortably in bed. On nasal cannula. Reviewed vascular note does not want sacral decubitus debridement Hospitalist Notes: 07/12: Seen in his bedroom discussed with nurse recommended to transfer to Medical Floor, he has Diagnosis of Severe Sepsis with Bandemia, status post rectal surgery secondary to rectal cancer and recent ureteral resection and double J ureteral stent, C Diff with Pseudomembranous Enteritis/sepsis, acute respiratory failure, Pseudomonas Pneumonia and UTI, ID specialist recommended PO Vancomycin and Cefepime, No nausea, vomit or diarrhea. Objective Vital Signs Date Time Temp Pulse Resp B/P (MAP) Pulse Ox O2 Delivery O2 Flow Rate FiO2 07/12/17 14:00 79 07/12/17 13:00 82 25 117/68 (84) 98 07/12/17 12:00 97.8 82 25 112/61 (78) 97 07/12/17 12:00 82 07/12/17 11:00 81 27 112/59 (76) 99 07/12/17 10:25 98 Nasal Cannula 2.00 07/12/17 10:00 76 07/12/17 10:00 76 24 118/58 (78) 80 07/12/17 09:01 83 28 134/75 (94) 97 07/12/17 08:00 97.9 113 20 133/93 (106) 100 07/12/17 08:00 84 07/12/17 07:00 83 20 142/70 (94) 100 07/12/17 06:00 76 07/12/17 04:00 75 07/12/17 04:00 97.3 75 21 125/70 (88) 99 07/12/17 02:00 75 07/12/17 00:00 97.4 84 17 136/83 (100) 71 07/12/17 00:00 84 07/11/17 22:00 90 07/11/17 21:50 100 Nasal Cannula 3.00 07/11/17 20:00 90 07/11/17 20:00 97.4 90 26 131/83 (99) 96 07/11/17 18:00 85 07/11/17 16:00 98.0 83 26 120/61 (80) 96 07/11/17 16:00 83 I/O 07/11/17 07/11/17 07/11/17 07/12/17 07/12/17 07/12/17 07:00 15:00 23:00 07:00 15:00 23:00 Intake Total 960 ml 100 ml 340 ml 440 ml 100 ml Output Total 1050 ml 750 ml 1240 ml Balance -90 ml 100 ml -410 ml -800 ml 100 ml Intake Oral 960 ml 240 ml 140 ml IV Total 100 ml 100 ml 300 ml 100 ml Output Urine Total 1000 ml 700 ml 1200 ml Stool Total 50 ml 50 ml 40 ml # Voids 5 Result Diagram: 07/12/17 0342 07/12/17 0342 Imaging Last Impressions Chest X-Ray 07/10/17 0600 Signed Impressions: Service Date/Time: Monday, July 10, 2017 04:39 - CONCLUSION: No significant change with persistent bilateral pulmonary parenchymal opacity with lower lung zone predominance likely worsening pulmonary edema and bilateral pleural effusions. Luis Armando Michel MD Abdomen X-Ray 07/06/17 0000 Signed Impressions: Service Date/Time: Thursday, July 06, 2017 13:44 - CONCLUSION: 1. Gaseous distention of multiple bowel loops. This has slightly improved. 2. Left-sided nephroureteral stent in good position. Sarwat Suarez MD Liver Ultrasound 06/24/17 0000 Signed Impressions: Service Date/Time: Saturday, June 24, 2017 16:38 - CONCLUSION: 1. Small volume ascites. 2. Small right effusion. Pierce Ospina Jr., MD Upper Extremity Ultrasound 06/23/17 0000 Signed Impressions: Service Date/Time: June 20:03 - CONCLUSION: Noncompressibility right cephalic vein and left basilic vein consistent with venous thrombosis Trav Hsieh MD Lower Extremity Ultrasound 06/23/17 0000 Signed Impressions: Service Date/Time: June 20:16 - CONCLUSION: Normal examination. No evidence DVT Trav Hsieh MD Chest CT 06/20/17 0000 Signed Impressions: Service Date/Time: Tuesday, June 20, 2017 07:42 - CONCLUSION: 1. Bilateral effusions and consolidative changes in both lung bases. Bao Lora MD Abdomen/Pelvis CT 06/20/17 0000 Signed Impressions: Service Date/Time: Tuesday, June 20, 2017 07:39 - CONCLUSION: 1. Dilated stomach and multiple dilated loops of small bowel, likely ileus. 2. No definite gastric volvulus. 3. Fat containing right inguinal hernia which also contains small portion of the urinary bladder and minimal fluid. 4. Left-sided nephroureteral stent in good position. 5. Bibasilar consolidation and small pleural effusions. Sarwat Suarez MD Other Results Laboratory Tests Test 06/18/17 04:50 06/18/17 13:15 06/18/17 16:20 06/18/17 17:15 Nasal Screen MRSA (PCR) MRSA NOT DETECTED Urine Hyaline Casts 13 /lpf Urine Granular Casts 6 /lpf Random Cortisol 129.1 MCG/DL Atypical Lymphocytes % Test 06/19/17 05:50 06/19/17 07:55 06/19/17 08:30 06/19/17 18:18 Dohle Bodies PRESENT Red Cell Morphology Comment NORMAL Venous Blood pH 7.46 Venous Blood Partial Pressure CO2 38 mmHg Venous Blood Partial Pressure O2 33 mmHg Venous Blood HCO3 27 mmol/L Venous Blood Oxygen Saturation 58 % Venous Blood Oxygen Content 8.2 Vol % Venous Blood Base Excess 3.1 mmol/L Total Creatine Kinase 93 U/L Stool C. difficile Toxin (PCR) POSITIVE Stl C. difficile Toxin Epiderm 027 PRESUMPTIVE NEGATIVE Test 06/20/17 04:23 06/20/17 14:15 06/22/17 17:55 06/23/17 18:50 Blood Gas Liter Flow 6 L/M Troponin I 0.11 NG/ML Thyroid Stimulating Hormone 3rd Gen 1.860 uIU/ML Random Vancomycin Level 7.2 COMMENT Heparin-Induced Platelet Ab (Joanne) POSITIVE HIPA Patient Optical Density 0.504 O.D. Serotonin Release Assay NEGATIVE SMILEY UF Heparin Low Dose 0.1 IU/mL 8 SMILEY UF Heparin Low Dose 0.5 IU/mL 4 SMILEY UF Heparin High Dose 100 IU/mL 4 Test 06/24/17 06:18 06/24/17 15:00 06/27/17 04:22 06/28/17 17:28 Toxic Granulation 1+ Iron Level 76 MCG/DL Total Iron Binding Capacity 66 MCG/DL Percent Iron Saturation % Ferritin 5508 NG/ML [id number] 221 mg/dL Ceruloplasmin 74 mg/dL Tumor Marker Alpha Fetoprotein 3.3 NG/ML Anti-Nuclear Antibody Screen NEG Mitochondria M2 Antibody LESS THAN 20.0 U Anti-Smooth Muscle Antibody Negative Hepatitis A IgM Antibody NEGATIVE Hepatitis B Surface Antigen NEGATIVE Hepatitis B Core IgM Antibody NEGATIVE Hepatitis C Antibody NEGATIVE Promyelocytes 1 % Hemochromatosis Source Hemochromatosis Specimen WB Whole Blood Hemochromatosis Method . Hereditary Hemochromatosis SEE BELOW Hemochromatosis Results . Hemochromatosis Interpretation . Hemochromatosis Reviewed By SEE BELOW Lactic Acid Level 1.3 mmol/L Test 07/01/17 04:00 07/02/17 11:44 07/02/17 15:45 07/03/17 04:00 Ammonia LESS THAN 10 MCMOL/L Amylase Level 112 U/L Lipase 608 U/L Digoxin Level 0.8 NG/ML Haptoglobin 190 MG/DL Direct Bilirubin 2.3 MG/DL Indirect Bilirubin 0.6 MG/DL Urine Color DARK-YELLOW Urine Turbidity HAZY Urine pH 5.5 Urine Specific [place] 1.022 Urine Protein 100 mg/dL Urine Glucose (UA) TRACE mg/dL Urine Ketones NEG mg/dL Urine Occult Blood LARGE Urine Nitrite POS Urine Bilirubin MOD Urine Urobilinogen LESS THAN 2.0 MG/DL Urine Leukocyte Esterase LARGE Urine RBC 71 /hpf Urine WBC 181 /hpf Urine WBC Clumps MANY Urine Squamous Epithelial Cells <1 /hpf Urine Bacteria RARE /hpf Urine Mucus FEW /lpf Microscopic Urinalysis Comment CATH-CULTURE IND Blood Urea Nitrogen 23 MG/DL Creatinine 0.79 MG/DL Random Glucose 149 MG/DL Total Protein 5.2 GM/DL Calcium Level 7.2 MG/DL Lactate Dehydrogenase 411 U/L Sodium Level 148 MEQ/L Potassium Level 3.7 MEQ/L Chloride Level 115 MEQ/L Carbon Dioxide Level 27.9 MEQ/L Test 07/03/17 06:00 07/05/17 05:20 07/06/17 11:45 07/10/17 04:05 Basophils % 2 % Toxic Vacuolation PRESENT Polychromasia 2.0 % Basophilic Stippling MOD Prothrombin Time 12.0 SEC Prothromb Time International Ratio 1.1 RATIO Activated Partial Thromboplast Time 33.6 SEC Fibrinogen 424 mg/dL Blood Gas Puncture Site ART LINE Blood Gas Patient Temperature 98.6 Blood Gas HCO3 24 mmol/L Blood Gas Base Excess 0.9 mmol/L Blood Gas Oxygen Saturation 94 % Arterial Blood pH 7.46 Arterial Blood Partial Pressure CO2 34 mmHg Arterial Blood Partial Pressure O2 83 mmHg Arterial Blood Oxygen Content 12.3 Vol % Arterial Blood Carboxyhemoglobin 1.3 % Arterial Blood Methemoglobin 1.2 % Blood Gas Hemoglobin 9.2 G/DL Oxygen Delivery Device VENTILATOR Blood Gas Ventilator Setting CPAP [id number] Blood Gas Inspired Oxygen 35 % Blastocytes 1 % Test 07/11/17 17:07 07/12/17 03:42 Tear Drop Cells White Blood Count 10.0 TH/MM3 Red Blood Count 3.29 MIL/MM3 Hemoglobin 9.3 GM/DL Hematocrit 29.3 % Mean Corpuscular Volume 89.1 FL Mean Corpuscular Hemoglobin 28.2 PG Mean Corpuscular Hemoglobin Concent 31.6 % Red Cell Distribution Width 18.5 % Platelet Count 61 TH/MM3 Mean Platelet Volume 11.8 FL Neutrophils (%) (Auto) 83.5 % Lymphocytes (%) (Auto) 9.5 % Monocytes (%) (Auto) 6.9 % Eosinophils (%) (Auto) 0.0 % Basophils (%) (Auto) 0.1 % Neutrophils # (Auto) 8.3 TH/MM3 Lymphocytes # (Auto) 0.9 TH/MM3 Monocytes # (Auto) 0.7 TH/MM3 Eosinophils # (Auto) 0.0 TH/MM3 Basophils # (Auto) 0.0 TH/MM3 CBC Comment AUTO DIFF Differential Total Cells Counted 100 Neutrophils % (Manual) 84 % Band Neutrophils % 2 % Lymphocytes % 4 % Monocytes % 5 % Eosinophils % 1 % Neutrophils # (Manual) 9.0 TH/MM3 Metamyelocytes 2 % Myelocytes 2 % Nucleated Red Blood Cells 2 /100 WBC Differential Comment FINAL DIFF MANUAL Platelet Estimate LOW Platelet Morphology Comment ENLARGED Target Cells 1+ [place] Bodies PRESENT Blood Urea Nitrogen 37 MG/DL Creatinine 0.92 MG/DL Random Glucose 109 MG/DL Total Protein 5.7 GM/DL Albumin 1.6 GM/DL Calcium Level 7.4 MG/DL Phosphorus Level 2.7 MG/DL Magnesium Level 2.1 MG/DL Alkaline Phosphatase 655 U/L Aspartate Amino Transf (AST/SGOT) 41 U/L Alanine Aminotransferase (ALT/SGPT) 56 U/L Total Bilirubin 6.4 MG/DL Sodium Level 139 MEQ/L Potassium Level 4.0 MEQ/L Chloride Level 106 MEQ/L Carbon Dioxide Level 23.3 MEQ/L Anion Gap 10 MEQ/L Estimat Glomerular Filtration Rate 82 ML/MIN Protein Corrected Calcium 8.2 MG/DL Objective Remarks GENERAL: SKIN: Warm and dry. HEENT: Extraocular muscles intact. NECK: The neck is supple. LIJ central line has been removed CHEST: Few coarse rhonchi Equal bilaterally. Diminished at bases CVS: S1S2 normal no murmurs. ABDOMEN: Abdomen is soft. Incision appears healing well. Ileostomy is functioning well. EXTREMITIES: No pedal edema or cyanosis. Positive sacral decubitus ulcer NEURO: Alert awake. Moves all extremities, following commands. No focal deficits. Able to move limbs against gravity Medications and IVs Current Medications Medications (Trade) Dose Ordered Sig/[place] Route Start Time Stop Time Status Last Admin (Wood 5-325 Mg) 1 tab Q4H PRN PO 06/17/17 22:00 07/09/17 04:19 (Wood 5-325 Mg) 2 tab Q4H PRN PO 06/17/17 22:00 07/11/17 23:34 (Zofran Inj) 4 mg Q4H PRN IV PUSH 06/17/17 22:00 06/18/17 09:45 Miscellaneous Information Patient in critical care unit? Ass... [id number] .XX 06/18/17 05:45 06/18/17 05:45 Potassium Chloride 100 ml @ 50 mls/hr Q2H PRN IV 06/19/17 07:45 07/09/17 14:03 Potassium Chloride 100 ml @ 50 mls/hr Q2H PRN IV 06/19/17 07:45 (K-Lyte Cl Eff) 50 meq UNSCH PRN PO 06/19/17 07:45 07/10/17 08:33 Potassium Chloride 100 ml @ 25 mls/hr UNSCH PRN IV 06/19/17 07:45 Potassium Chloride 100 ml @ 50 mls/hr Q2H PRN IV 06/19/17 07:45 07/12/17 00:59 Magnesium Sulfate 4 gm/Sodium Chloride 100 ml @ 50 mls/hr UNSCH PRN IV 06/19/17 07:45 Magnesium Sulfate 2 gm/Sodium Chloride 100 ml @ 50 mls/hr UNSCH PRN IV 06/19/17 07:45 (K-Phos) 2,000 mg Q4H PRN PO 06/19/17 07:45 Sodium Phosphate 30 mmol/Sodium Chloride 250 ml @ 42 mls/hr UNSCH PRN IV 06/19/17 07:45 07/01/17 06:24 (K-Phos) 2,000 mg UNSCH PRN PO/TUBE 06/19/17 07:45 Potassium Phosphate 30 mmol/ Sodium Chloride 260 ml @ 42 mls/hr UNSCH PRN IV 06/19/17 07:45 (VANCOMYCIN for oral use only) 500 mg QID NG 06/19/17 18:00 07/12/17 12:47 (Albuterol Neb) 2.5 mg Q2HR NEB PRN NEB 06/29/17 14:30 07/05/17 08:44 Cefepime HCl 1000 mg/Sodium Chloride 100 ml @ 200 mls/hr Q8H IV 07/03/17 11:00 07/12/17 11:25 (K-Lyte Cl Eff) 25 meq DAILY PO 07/05/17 12:00 07/12/17 08:20 Non-Formulary Medication 40 mg HS PO 07/05/17 21:00 07/10/17 21:00 (Cardizem) 60 mg Q6HR PO 07/05/17 12:45 07/12/17 11:25 (Santyl Oint) 1 applic DAILY TOPICAL 07/07/17 09:00 07/12/17 08:23 (Symbicort 160-4.5 Inh) 1 puff Q12HR INH 07/07/17 09:00 07/12/17 08:36 (Lovenox Inj) 40 mg Q24H SQ 07/09/17 09:00 07/12/17 08:19 (Bumex Inj) 1 mg Q12HR IV PUSH 07/10/17 21:00 07/12/17 08:20 (Lomotil Tab) 1 tab Q6H PRN PO 07/10/17 11:00 (SoluMEDROL INJ) 20 mg Q12HR IV PUSH 07/10/17 21:00 07/12/17 08:20 (Protonix) 40 mg DAILY PO 07/11/17 09:00 07/12/17 08:19 (Duoneb Neb) 1 ampule Q6HR NEB NEB 07/10/17 12:45 07/12/17 10:25 (Lanoxin) 0.125 mg DAILY PO 07/11/17 09:00 07/12/17 08:19 (NovoLOG SUPPLEMENTAL SCALE) 1 ACHS SQ 07/11/17 17:00 07/11/17 21:00 (D50w (Vial) Inj) 50 ml UNSCH PRN IV PUSH 07/11/17 15:00 (Glucagon Inj) 1 mg UNSCH PRN OTHER 07/11/17 15:00 A/P Assessment and Plan 1. Acute Hypoxemic Respiratory Failure resolved/HCAP pseudomonal Aeruginosa Pneumonia/COPD with Exacerbation Extubated 07/06/17, continue Bronchodilator, Mucolytic, incentive spirometry. Steroids. 2. Atrial Fibrillation with RVR/Fluid Overload, - Cardioverted several times without success and amiodarone started for A. fib with RVR - Amio DCd 06/24 due to Liver enzyme elevation. Placed on on Cardizem infusion and Digoxin. very resistant afib and difficult to control. - On PO Cardizem 60 q6 and change digoxin to 125 mg to PO - IV Heparin discontinued due to HIT screen positive hematology consulted. Argatroban DCd 06/[address] Hurley SMILEY negative. On enoxaparin now - s/p Normal saline IV fluids 8L boluses on 06/18/17. Now off maintenance fluid - Scheduled Bumetanide 1 mg IV q12 - 2D Echo normal LV function 3. Status post Left Colectomy with Colorectal Anastomosis/Diverting Ileostomy/ Wedge resection of liver metastasis C Diff Enteritis/ileitis/transaminitis/Cholestasis Tolerating PO diet was on TPN off 07/09/17, PPIs by mouth, had Transaminitis , EGD 06/19. Evidence of esophagitis, and erythematous gastritis in the gastric body and gastric antrum, continue PO Vancomycin for C Diff, Dr. Geiger 06/22. Colonoscopy normal. Ileoscopy severe pseudomembranous ileitis, continue Alvimopam 12mg BID for Ileus. 4. Status post partial Resection of the left ureter with anastomosis and placement of double J stent, on Han cath and diuretics 5. Thrombocytopenia HIT ruled out, Argatroban started 06/24/17, DCd 06/26/[address] Hurley. According to Dr. Hurley elevated PTT secondary to decreased liver clearance of argatroban. Back on enoxaparin 6. Sepsis and Bandemia recommended by ID to continue Cefepime 7. C Diff colitis on PO Vancomycin. 8. sacral ulcer Colon and rectal operations specialists following. PROPH: -Bilateral lower extremity SCDs. Currently on enoxaparin DVT dose, oral Protonix 40 mg daily Discharge Planning Once cleared by specialists. Romeo Chowdhury MD Jul 12, 2017 3:23 pm
[2017-07-12] MEDS: [UNRECOGNIZED DRUG - REMARK] PO SCH (21:44)
[2017-07-13] VITALS (20 sets, daily range): BP systolic 108–140; BP diastolic 55–68; PULSE 71–94; RESP 13–37; TEMP 97.5–98.7; O2SAT 71–98
[2017-07-13] MEDS: DILTIAZEM HCL 60 MG TAB PO SCH ×5 (00:43→22:16)
[2017-07-13] MEDS: CEFEPIME INJ 1,000 MG in SODIUM CHLORIDE 0.9% INJ 100 ML IV SCH ×2 (00:43→10:04)
[2017-07-13] MEDS: RESP: ALBUTEROL 2.5 MG/IPRATROPIUM 0.5 MG NEB (SCH) NEB ×4 (03:39→20:39)
[2017-07-13 05:47] LABS: HEMATOCRIT 32.2 % (39.0-51.0); MEAN CELL VOLUME 91.7 FL (80.0-100.0); MEAN CORPUSCULAR HEMOGLOBIN 29.2 PG (27.0-34.0); MEAN CORPUSCULAR HGB CONC 31.8 % (32.0-36.0); PLATELET COUNT 65 TH/MM3 (150-450); RED BLOOD COUNT 3.51 MIL/MM3 (4.50-5.90); RED CELL DISTRIBUTION WIDTH 19.5 % (11.6-17.2); WHITE BLOOD COUNT 9.1 TH/MM3 (4.0-11.0)
[2017-07-13 05:53] LABS: HEMO FLAGS AUTO DIFF
[2017-07-13] MEDS: ACETAMINOPHEN/HYDROcodone 325 MG/5 MG TAB PO PRN ×2 (06:57→11:48)
[2017-07-13 07:05] LABS: BANDS 1 % (0-6); CORRECTED NUCLEATED RBC 1 /100 WBC (0-0); NEUTROPHIL # MANUAL DIFF 8.8 TH/MM3 (1.8-7.7); POLYS (SEG NEUTROPHILS) 96 % (16-70); WBC DIFF SAMPLE 100
[2017-07-13 07:06] LABS: PLATELET ESTIMATE SMEAR LOW (NORMAL); PLATELET MORPHOLOGY ENLARGED (NORMAL); SCAN/DIFF FINAL DIFF MANUAL
[2017-07-13] MEDS: INSULIN ASPART SUPPLEMENTAL SCALE SQ SCH ×4 (08:00→21:00)
[2017-07-13] MEDS: BUDESONIDE-FORMOTEROL 160/4.5 MCG INHALER INH SCH ×2 (10:02→22:17)
[2017-07-13] MEDS: PANTOPRAZOLE SOD 40 MG DELAYED RELEASE TAB PO SCH (10:02)
[2017-07-13] MEDS: methylPREDNISolone SOD SUCC 40 MG/1 ML VIAL IV PUSH SCH ×2 (10:03→22:16)
[2017-07-13] MEDS: POTASSIUM CHLORIDE 25 MEQ EFFERVESCENT TAB PO SCH (10:03)
[2017-07-13] MEDS: BUMETANIDE INJ 1 MG/4 ML VIAL IV PUSH SCH ×2 (10:03→22:16)
[2017-07-13] MEDS: VANCOMYCIN 500 MG VIAL (FOR ORAL USE ONLY) NG SCH ×2 (10:03→11:47)
[2017-07-13] MEDS: DIGOXIN 0.125 MG TAB PO SCH (10:04)
[2017-07-13] MEDS: ENOXAPARIN SODIUM 40 MG/0.4 ML SYRINGE SQ SCH (10:04)
[2017-07-13] MEDS: COLLAGENASE OINT 30 GM TUBE TOPICAL SCH (10:05)
--- NOTE | 2017-07-13 13:43 | HHI.IDPN ---
Note Infectious Disease Note Patient is wake and alert. No complaints. Afebrile. Admitted to the hospital with weakness, abdominal pain and nausea. The patient is status post anterior resection of colon and rectal areas and anastomosis along with a diverting ileostomy and also resection of a segment of left ureter with ureteral anastomosis and double-J stent placement three weeks prior. PAST MEDICAL HISTORY: 1. Hypertension. 2. Left knee surgery. 3. Metastatic colon cancer status post resection and coloanal anastomosis and also resection and re-anastomosis of the left ureter with double-J stent placement. ALLERGIES: CODEINE. ABX: Vancomycin PO. Cefepime. SOCIAL HISTORY: . Positive tobacco use. No alcohol. No illicit drug use. OBJECTIVE: Vital Signs Date Time Temp Pulse Resp B/P (MAP) Pulse Ox O2 Delivery O2 Flow Rate FiO2 07/13/17 08:01 95 21 07/13/17 06:00 79 07/13/17 04:00 78 07/13/17 04:00 97.5 78 37 132/65 (87) 96 07/13/17 02:00 76 07/13/17 00:00 71 07/13/17 00:00 98.7 71 13 119/59 (79) 98 07/12/17 22:00 97 Nasal Cannula 2.00 07/12/17 22:00 71 07/12/17 20:00 96 07/12/17 20:00 97.7 96 20 127/69 (88) 98 07/12/17 18:00 83 07/12/17 16:00 98.2 79 22 129/64 (85) 100 07/12/17 16:00 79 07/12/17 15:00 93 23 127/65 (85) 07/12/17 14:00 79 07/12/17 14:00 79 23 119/62 (81) Laboratory Tests Test 07/11/17 17:07 07/12/17 03:42 07/13/17 05:08 White Blood Count 9.1 TH/MM3 10.0 TH/MM3 9.1 TH/MM3 Red Blood Count 3.60 MIL/MM3 3.29 MIL/MM3 3.51 MIL/MM3 Hemoglobin 10.4 GM/DL 9.3 GM/DL 10.2 GM/DL Hematocrit 32.8 % 29.3 % 32.2 % Mean Corpuscular Volume 91.2 FL 89.1 FL 91.7 FL Mean Corpuscular Hemoglobin 28.9 PG 28.2 PG 29.2 PG Mean Corpuscular Hemoglobin Concent 31.7 % 31.6 % 31.8 % Red Cell Distribution Width 19.2 % 18.5 % 19.5 % Platelet Count 60 TH/MM3 61 TH/MM3 65 TH/MM3 Mean Platelet Volume 11.7 FL 11.8 FL 11.9 FL Neutrophils (%) (Auto) 88.4 % 83.5 % Lymphocytes (%) (Auto) 4.1 % 9.5 % Monocytes (%) (Auto) 7.4 % 6.9 % Eosinophils (%) (Auto) 0.0 % 0.0 % Basophils (%) (Auto) 0.1 % 0.1 % Neutrophils # (Auto) 8.1 TH/MM3 8.3 TH/MM3 Lymphocytes # (Auto) 0.4 TH/MM3 0.9 TH/MM3 Monocytes # (Auto) 0.7 TH/MM3 0.7 TH/MM3 Eosinophils # (Auto) 0.0 TH/MM3 0.0 TH/MM3 Basophils # (Auto) 0.0 TH/MM3 0.0 TH/MM3 CBC Comment AUTO DIFF AUTO DIFF AUTO DIFF Differential Total Cells Counted 100 100 100 Neutrophils % (Manual) 91 % 84 % 96 % Band Neutrophils % 1 % 2 % 1 % Lymphocytes % 1 % 4 % Monocytes % 5 % 5 % 3 % Neutrophils # (Manual) 8.6 TH/MM3 9.0 TH/MM3 8.8 TH/MM3 Metamyelocytes 2 % 2 % Nucleated Red Blood Cells 5 /100 WBC 2 /100 WBC 1 /100 WBC Differential Comment FINAL DIFF MANUAL FINAL DIFF MANUAL FINAL DIFF MANUAL Platelet Estimate LOW LOW LOW Platelet Morphology Comment NORMAL ENLARGED ENLARGED Target Cells 1+ 1+ Tear Drop Cells [place]-Barron Bodies PRESENT PRESENT Eosinophils % 1 % Myelocytes 2 % Laboratory Tests Test 07/11/17 17:07 07/12/17 03:42 Blood Urea Nitrogen 39 MG/DL 37 MG/DL Creatinine 0.98 MG/DL 0.92 MG/DL Random Glucose 118 MG/DL 109 MG/DL Calcium Level 7.6 MG/DL 7.4 MG/DL Sodium Level 137 MEQ/L 139 MEQ/L Potassium Level 3.3 MEQ/L 4.0 MEQ/L Chloride Level 103 MEQ/L 106 MEQ/L Carbon Dioxide Level 24.5 MEQ/L 23.3 MEQ/L Anion Gap 10 MEQ/L 10 MEQ/L Estimat Glomerular Filtration Rate 76 ML/MIN 82 ML/MIN Total Protein 5.7 GM/DL Albumin 1.6 GM/DL Phosphorus Level 2.7 MG/DL Magnesium Level 2.1 MG/DL Alkaline Phosphatase 655 U/L Aspartate Amino Transf (AST/SGOT) 41 U/L Alanine Aminotransferase (ALT/SGPT) 56 U/L Total Bilirubin 6.4 MG/DL Protein Corrected Calcium 8.2 MG/DL Microbiology Date/Time Source Procedure Growth Status 07/02/17 18:54 Blood Peripheral Aerobic Blood Culture - Preliminary NO GROWTH IN 3 DAYS Resulted 07/02/17 18:54 Blood Peripheral Anaerobic Blood Culture - Preliminary NO GROWTH IN 3 DAYS Resulted 07/02/17 18:49 Blood Peripheral Aerobic Blood Culture - Preliminary NO GROWTH IN 3 DAYS Resulted 07/02/17 18:49 Blood Peripheral Anaerobic Blood Culture - Preliminary NO GROWTH IN 3 DAYS Resulted 07/02/17 17:00 Sputum Endotracheal Gram Stain - Final Complete 07/02/17 17:00 Sputum Culture - Final Pseudomonas Aeruginosa Complete 07/02/17 15:45 Urine Clean Catch Urine Culture - Final Pseudomonas Aeruginosa Complete IMAGING: Chest X-Ray 07/10/17 0600 Signed Impressions: Service Date/Time: Monday, July 10, 2017 04:39 - CONCLUSION: No significant change with persistent bilateral pulmonary parenchymal opacity with lower lung zone predominance likely worsening pulmonary edema and bilateral pleural effusions. Luis Armando Michel MD Chest X-Ray 07/06/17 0600 Signed Impressions: Service Date/Time: Thursday, July 06, 2017 03:52 - CONCLUSION: No significant interval change Luca Trinidad MD PHYSICAL EXAMINATION: GENERAL: No acute distress. HEENT: No icterus. Oropharynx with dry mucosa. NECK: Supple. LUNGS: Clear breath sounds. HEART: Regular S1-S2 without murmurs, rubs or gallops. ABDOMEN: Positive bowel sounds. Soft. EXTREMITIES: No clubbing or cyanosis, edema. SKIN: No rash. NEUROLOGIC: Nonfocal. IMPRESSION: 1. Severe sepsis/ Bandemia. Status post recent surgery for rectal cancer and recent ureteral resection and double J ureteral stent. 2. C difficile colitis. Pseudomembranous enteritis/sepsis. 3. Acute respiratory failure. 4. Pseudomonas pneumonia and UTI. Improved. 5. Leukocytosis. Improved. WBC now normal. Clinically stable. RECOMMENDATIONS: 1. Continue PO Vancomycin at 250 mg qid another 7 days. 2. Stop Cefepime. El Espinoza MD Jul 13, 2017 13:43
--- NOTE | 2017-07-13 14:39 | HHI.PR ---
Subjective Remarks Pt seen at 9 AM today. He is becoming impatient to transfer to rehab. O/W doing well. Objective Vital Signs Date Time Temp Pulse Resp B/P (MAP) Pulse Ox O2 Delivery O2 Flow Rate FiO2 07/13/17 08:01 95 21 07/13/17 06:00 79 07/13/17 04:00 78 07/13/17 04:00 97.5 78 37 132/65 (87) 96 07/13/17 02:00 76 07/13/17 00:00 71 07/13/17 00:00 98.7 71 13 119/59 (79) 98 07/12/17 22:00 97 Nasal Cannula 2.00 07/12/17 22:00 71 07/12/17 20:00 96 07/12/17 20:00 97.7 96 20 127/69 (88) 98 07/12/17 18:00 83 07/12/17 16:00 98.2 79 22 129/64 (85) 100 07/12/17 16:00 79 07/12/17 15:00 93 23 127/65 (85) I/O 07/12/17 07/12/17 07/12/17 07/13/17 07/13/17 07/13/17 07:00 15:00 23:00 07:00 15:00 23:00 Intake Total 440 ml 100 ml 200 ml 440 ml Output Total 1240 ml 900 ml 1000 ml Balance -800 ml 100 ml -700 ml -560 ml Intake Oral 140 ml 240 ml IV Total 300 ml 100 ml 200 ml 200 ml Output Urine Total 1200 ml 900 ml 850 ml Stool Total 40 ml 0 ml 150 ml # Voids 5 5 Result Diagram: 07/13/17 0508 07/12/17 0342 Objective Remarks VS-S Gen: Pt comfortable Abd: Soft. Flat. Wound healed. Stoma working.Stools thick Rectal: Open decubitus with some drained necrotic tissue. I&Os: OK Labs: Bilirubin and Alk phos continues to rise despite stopping TPN Assessment and Plan Assessment and Plan Decubitus Deconditioned Decubitus may benefit from some debridement sherin local just to remove tissue-Will ask Gen Surgery to assess Pureed foods OOB Will need inpatient rehab Will ask GI to eval Bilirubin and Alk phos Luca Geiger MD Jul 13, 2017 14:39
--- NOTE | 2017-07-13 16:51 | HHI.PR ---
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 He presented yesterday with 5 day history of abdominal discomfort and increasing weakness. No history of high output from ileostomy. He was admitted to the colorectal surgery for dehydration and probable UTI. He was placed on ciprofloxacin and IV hydration. According to Dr. Geiger's note it was difficult dissection/resection colon mass because of the pelvic sidewall adherence and the adherence to the left ureter. A portion of ureter was resected due to possibility of tumor infiltration, and Dr. Augustine Pelayo re- anastomosed the ureter and placed left-sided double-J stent. Also 1 cm hepatic metastasis in his liver that was excised. Hospitalist consultation was requested for medical management and evaluation of tachycardia today. He was seen by Dr. Jay and was placed on infusion of Cardizem for heart rate 140s. Patient became hypotensive with systolic blood pressure early 90s. Lab work showed WBC 14.5 with 44% bands, creat increase from 1.2 to 1.4 and severely increased lactate at 8 from admission lactate of 2.6. CT of the abdomen pelvis done yesterday showed probable small bowel ileus. I evaluated the patient in the ICU. He is tachycardic in 140s, hypotensive and systolic blood pressure in mid 80s. Clinically appears very dehydrated, an NG tube was placed with approximately 3 L of some coffee-ground output. ABG shows a base excess of -10 and bicarbonate 12. I have ordered 4 liter normal saline boluses start 1 amp of bicarbonate, discontinued the LR infusion, and started bicarb gtt. Discontinue ciprofloxacin, started Zosyn every 6 hours, vancomycin 1 g 1. His elevated lactic acid and bandemia most likely secondary to severe sepsis, ileus, and severe dehydration. Serial lactate is ordered SUBJ 06/19: Lactic acid remains elevated at 6.6 despite getting 9 L of crystalloid boluses in last 24 hours. Tachycardia has improved heart rate in 110s. Remains on vasopressin at 0.04 units/min. Urine output almost 1200 mL overnight, OGT initial output was almost 3 L when placed yesterday a.m. Overnight had 550 mL of greenish brown fluid output. EGD pending today rule out gastric ischemia per Dr. Romero. Apparently Flex sig was negative post op in Dr. Geiger's office 06/20: Developed A. fib with RVR. Heart rate 200. Hemodynamically unstable, synchronized cardioversion attempted by Dr. Morales 100 200 J. Given 3 g mag sulfate and 80 mEq KCl 1, 0.5 digoxin 1 and started on amiodarone and Giorgio- Synephrine. Intubated due to hemodynamic instability. Currently remains sedated. Currently on Giorgio-Synephrine 80 mcg/m, and amiodarone. CT chest abdomen pelvis again confirms gastric and small bowel distention/ileus. UO 1800 ml in 24 hours 06/21: Remains critically ill, intubated sedated, on 100 mcg/min neosynpehrine. HR better controlled. NG output 1500, UO >1.4L. Am labs pending. Ileostomy sample positive for C Diff on PO vanc IV Flagyl. 06/22: Remains intubated sedated. Urine output 3000 mL with Bumex. NGT [address] Geiger did colonoscopy which was normal. Ileoscopy showed pseudomembranous colitis. Currently on 200 mcg/min of neosynephrine. Afib with RVR HR in 140's 06/23: Remains intubated sedated, remains in atrial fibrillation with RVR. Still requiring high doses of Giorgio-Synephrine at 190 mcg/min. UO 2.5L. chest x- ray showed bilateral large effusions. KUB shows improving small bowel distention. WBC count is slightly improved 06/24: Unable to control HR. Repeat shock x3 today. remains in atrial fibrillation with RVR rates 160-170 intermittently. Remains on amiodarone but will discontinued due to elevation of liver enzymes AST 546 ALT 158. (GI notified). Start Cardizem infusion and also give Surjit 0.5 mg 1. Platelet count continues to drop from 67 to today 45. Hematology following will start of Argatroban today. Creatinine has slightly increased to 1.3 to will DC Bumex infusion 06/25: Patient remains intubated sedated critically ill. Heart rate controlled for the first time since atrial fibrillation started. Heart rate remains 80- 90. Urine output 1200 mL in 24 hours but BUN/creatinine increasing 44/1.7. I will hydrate with 50 mL/hr normal saline for 24 hours. Transaminitis increasing AST 1300 ALT 386. Ultrasound of the liver unremarkable GI following 06/26: PTT elevated due to Argatorban/Liver failure. Dr. Hurley has DCd argatroban. SMILEY pending. Pl count is 21. Currently in sinus rhythm on Cardizem infusion. Not on any pressors. Creatinine improved to 1.2. Urine output adequate. Becomes very tachypneic on attempted CPAP. Discussed with Dr. Geiger Will Start Trickle Tube Feeds 06/27: no improvements. off pathway. thrombocytopenia persists. unable to wean from mechanical ventilation. neuro exam poor. will likely need trach. 06/28: platelets worse today. SMILEY not resulted yet. failing SBT and mental status poor. poor prognosis. will need trach and LTAC placement. 06/29: Tmax 101. Currently 99.6. Tolerating trickle tube feeds. Continues to fail spontaneous breathing trials. 06/30: Lasted 1 hour spontaneous breathing trial this AM. 2.5 hours this afternoon. Currently afebrile. Hemoglobin remained stable. 07/01: lasted 4 hours on SBT, except 15 of pressure support, so not ready clinically for extubation, and even after only 4 hours, tired out and became hypoxic and tachypneic. more awake today and following commands. will likely need tracheostomy. 07/02: new fever today, but wbc normal. per ID, will culture and observe, continue flagyl/PO vanc. otherwise no changes. no improvements. 07/03: pseudomonas in sputum and urine. increase in cough and secretions. ID following and added cefepime. still weak and failing SBTs for hypoxia and tachypnea. needs tracheostomy. will need long-term rehab and likely LTAC. 07/04: Wakes up easily, follows commands. On 5 mg/hr versed. CXR pending. UO adequate. Resume SBT. Significant weight gain. approx 15 kg up. Give Bumex 2 mg IV x1 07/05: Patient is intubated sedated with 50 g per hour of fentanyl. Urine output 3 L in [address] on scheduled Bumex. Tolerating CPAP at 15/5. bring in Viibryd, which apparently patient had been on for long time. I have resumed it. 07/06: Tolerating CPAP 10/5 better today, Wakes up and following commands. Good UO with Bumex. Chest x-ray basilar opacities essentially unchanged. Increase IV Bumex to 1 mg every 12 07/07: Extubated yesterday tolerating well. Slightly tachypneic but maintain oxygen saturation and no subjective shortness of breath. Urine output remains excellent on Bumex, 2.9L in 24 hours 07/08: Lying on bed breathing comfortably urine output excellent with increased Bumex dose. 5.8 L in 24 hours. WBC count stable. Increase activity up to stretcher chair today 07/09: Tolerating by mouth diet. Eating atleast 50%. TPN reduced by half yesterday. UO remains excellent with diuresis. Attempt TPN wean off today. Breathing comfortably except intermittent tachypnea. 07/10: Appetite better, breathing more comfortably. Off TPN. UO remains excellent. Platelet count slightly dropped to 46 from 49. I will continue steroids at Solu-Medrol 20 mg IV every 12, taper only very slowly 07/11: Afebrile. Resting comfortably in bed. On nasal cannula. Reviewed vascular note does not want sacral decubitus debridement Hospitalist Notes: 07/12: Seen in his bedroom discussed with nurse recommended to transfer to Medical Floor, he has Diagnosis of Severe Sepsis with Bandemia, status post rectal surgery secondary to rectal cancer and recent ureteral resection and double J ureteral stent, C Diff with Pseudomembranous Enteritis/sepsis, acute respiratory failure, Pseudomonas Pneumonia and UTI, ID specialist recommended PO Vancomycin and Cefepime, No nausea, vomit or diarrhea. 07/13: Seen in his bedroom in the presence of his Mrs. Beauchamp, he has Diagnosis of Metastatic Adenocarcinoma of the rectosigmoid Colon, developed Sacral Ulcer his was talking to me and wants to get a bed that her is able to control better this issue was discussed with Nurse Miss Kinney This is a special bed and there is no another way to handle that the control at the rail on each side of the bed, he wants a control different than the one on the rails has thrombocytopenia, has Left Upper extremity thrombosis, to continue Lovenox. awaiting for rehab admission. Objective Vital Signs Date Time Temp Pulse Resp B/P (MAP) Pulse Ox O2 Delivery O2 Flow Rate FiO2 07/13/17 08:01 95 21 07/13/17 06:00 79 07/13/17 04:00 78 07/13/17 04:00 97.5 78 37 132/65 (87) 96 07/13/17 02:00 76 07/13/17 00:00 71 07/13/17 00:00 98.7 71 13 119/59 (79) 98 07/12/17 22:00 97 Nasal Cannula 2.00 07/12/17 22:00 71 07/12/17 20:00 96 07/12/17 20:00 97.7 96 20 127/69 (88) 98 07/12/17 18:00 83 I/O 07/12/17 07/12/17 07/12/17 07/13/17 07/13/17 07/13/17 07:00 15:00 23:00 07:00 15:00 23:00 Intake Total 440 ml 100 ml 200 ml 440 ml Output Total 1240 ml 900 ml 1000 ml Balance -800 ml 100 ml -700 ml -560 ml Intake Oral 140 ml 240 ml IV Total 300 ml 100 ml 200 ml 200 ml Output Urine Total 1200 ml 900 ml 850 ml Stool Total 40 ml 0 ml 150 ml # Voids 5 5 Result Diagram: 07/13/17 0508 07/12/17 0342 Imaging Last Impressions Chest X-Ray 07/10/17 0600 Signed Impressions: Service Date/Time: Monday, July 10, 2017 04:39 - CONCLUSION: No significant change with persistent bilateral pulmonary parenchymal opacity with lower lung zone predominance likely worsening pulmonary edema and bilateral pleural effusions. Luis Armando Michel MD Abdomen X-Ray 07/06/17 0000 Signed Impressions: Service Date/Time: Thursday, July 06, 2017 13:44 - CONCLUSION: 1. Gaseous distention of multiple bowel loops. This has slightly improved. 2. Left-sided nephroureteral stent in good position. Sarwat Suarez MD Liver Ultrasound 06/24/17 0000 Signed Impressions: Service Date/Time: Saturday, June 24, 2017 16:38 - CONCLUSION: 1. Small volume ascites. 2. Small right effusion. Pierce Ospina Jr., MD Upper Extremity Ultrasound 06/23/17 0000 Signed Impressions: Service Date/Time: June 20:03 - CONCLUSION: Noncompressibility right cephalic vein and left basilic vein consistent with venous thrombosis Trav Hsieh MD Lower Extremity Ultrasound 06/23/17 0000 Signed Impressions: Service Date/Time: June 20:16 - CONCLUSION: Normal examination. No evidence DVT Trav Hsieh MD Chest CT 06/20/17 0000 Signed Impressions: Service Date/Time: Tuesday, June 20, 2017 07:42 - CONCLUSION: 1. Bilateral effusions and consolidative changes in both lung bases. Bao Lora MD Abdomen/Pelvis CT 06/20/17 0000 Signed Impressions: Service Date/Time: Tuesday, June 20, 2017 07:39 - CONCLUSION: 1. Dilated stomach and multiple dilated loops of small bowel, likely ileus. 2. No definite gastric volvulus. 3. Fat containing right inguinal hernia which also contains small portion of the urinary bladder and minimal fluid. 4. Left-sided nephroureteral stent in good position. 5. Bibasilar consolidation and small pleural effusions. Sarwat Suarez MD Other Results Laboratory Tests Test 06/18/17 04:50 06/18/17 13:15 06/18/17 16:20 06/18/17 17:15 Nasal Screen MRSA (PCR) MRSA NOT DETECTED Urine Hyaline Casts 13 /lpf Urine Granular Casts 6 /lpf Random Cortisol 129.1 MCG/DL Atypical Lymphocytes % Test 06/19/17 05:50 06/19/17 07:55 06/19/17 08:30 06/19/17 18:18 Dohle Bodies PRESENT Red Cell Morphology Comment NORMAL Venous Blood pH 7.46 Venous Blood Partial Pressure CO2 38 mmHg Venous Blood Partial Pressure O2 33 mmHg Venous Blood HCO3 27 mmol/L Venous Blood Oxygen Saturation 58 % Venous Blood Oxygen Content 8.2 Vol % Venous Blood Base Excess 3.1 mmol/L Total Creatine Kinase 93 U/L Stool C. difficile Toxin (PCR) POSITIVE Stl C. difficile Toxin Epiderm 027 PRESUMPTIVE NEGATIVE Test 06/20/17 04:23 06/20/17 14:15 06/22/17 17:55 06/23/17 18:50 Blood Gas Liter Flow 6 L/M Troponin I 0.11 NG/ML Thyroid Stimulating Hormone 3rd Gen 1.860 uIU/ML Random Vancomycin Level 7.2 COMMENT Heparin-Induced Platelet Ab (Joanne) POSITIVE HIPA Patient Optical Density 0.504 O.D. Serotonin Release Assay NEGATIVE SMILEY UF Heparin Low Dose 0.1 IU/mL 8 SMILEY UF Heparin Low Dose 0.5 IU/mL 4 SMILEY UF Heparin High Dose 100 IU/mL 4 Test 06/24/17 06:18 06/24/17 15:00 06/27/17 04:22 06/28/17 17:28 Toxic Granulation 1+ Iron Level 76 MCG/DL Total Iron Binding Capacity 66 MCG/DL Percent Iron Saturation % Ferritin 5508 NG/ML [id number] 221 mg/dL Ceruloplasmin 74 mg/dL Tumor Marker Alpha Fetoprotein 3.3 NG/ML Anti-Nuclear Antibody Screen NEG Mitochondria M2 Antibody LESS THAN 20.0 U Anti-Smooth Muscle Antibody Negative Hepatitis A IgM Antibody NEGATIVE Hepatitis B Surface Antigen NEGATIVE Hepatitis B Core IgM Antibody NEGATIVE Hepatitis C Antibody NEGATIVE Promyelocytes 1 % Hemochromatosis Source Hemochromatosis Specimen WB Whole Blood Hemochromatosis Method . Hereditary Hemochromatosis SEE BELOW Hemochromatosis Results . Hemochromatosis Interpretation . Hemochromatosis Reviewed By SEE BELOW Lactic Acid Level 1.3 mmol/L Test 07/01/17 04:00 07/02/17 11:44 07/02/17 15:45 07/03/17 04:00 Ammonia LESS THAN 10 MCMOL/L Amylase Level 112 U/L Lipase 608 U/L Digoxin Level 0.8 NG/ML Haptoglobin 190 MG/DL Direct Bilirubin 2.3 MG/DL Indirect Bilirubin 0.6 MG/DL Urine Color DARK-YELLOW Urine Turbidity HAZY Urine pH 5.5 Urine Specific [place] 1.022 Urine Protein 100 mg/dL Urine Glucose (UA) TRACE mg/dL Urine Ketones NEG mg/dL Urine Occult Blood LARGE Urine Nitrite POS Urine Bilirubin MOD Urine Urobilinogen LESS THAN 2.0 MG/DL Urine Leukocyte Esterase LARGE Urine RBC 71 /hpf Urine WBC 181 /hpf Urine WBC Clumps MANY Urine Squamous Epithelial Cells <1 /hpf Urine Bacteria RARE /hpf Urine Mucus FEW /lpf Microscopic Urinalysis Comment CATH-CULTURE IND Blood Urea Nitrogen 23 MG/DL Creatinine 0.79 MG/DL Random Glucose 149 MG/DL Total Protein 5.2 GM/DL Calcium Level 7.2 MG/DL Lactate Dehydrogenase 411 U/L Sodium Level 148 MEQ/L Potassium Level 3.7 MEQ/L Chloride Level 115 MEQ/L Carbon Dioxide Level 27.9 MEQ/L Test 07/03/17 06:00 07/05/17 05:20 07/06/17 11:45 07/10/17 04:05 Basophils % 2 % Toxic Vacuolation PRESENT Polychromasia 2.0 % Basophilic Stippling MOD Prothrombin Time 12.0 SEC Prothromb Time International Ratio 1.1 RATIO Activated Partial Thromboplast Time 33.6 SEC Fibrinogen 424 mg/dL Blood Gas Puncture Site ART LINE Blood Gas Patient Temperature 98.6 Blood Gas HCO3 24 mmol/L Blood Gas Base Excess 0.9 mmol/L Blood Gas Oxygen Saturation 94 % Arterial Blood pH 7.46 Arterial Blood Partial Pressure CO2 34 mmHg Arterial Blood Partial Pressure O2 83 mmHg Arterial Blood Oxygen Content 12.3 Vol % Arterial Blood Carboxyhemoglobin 1.3 % Arterial Blood Methemoglobin 1.2 % Blood Gas Hemoglobin 9.2 G/DL Oxygen Delivery Device VENTILATOR Blood Gas Ventilator Setting CPAP [id number] Blood Gas Inspired Oxygen 35 % Blastocytes 1 % Test 07/11/17 17:07 07/12/17 03:42 07/13/17 05:08 Tear Drop Cells Neutrophils (%) (Auto) 83.5 % Lymphocytes (%) (Auto) 9.5 % Monocytes (%) (Auto) 6.9 % Eosinophils (%) (Auto) 0.0 % Basophils (%) (Auto) 0.1 % Neutrophils # (Auto) 8.3 TH/MM3 Lymphocytes # (Auto) 0.9 TH/MM3 Monocytes # (Auto) 0.7 TH/MM3 Eosinophils # (Auto) 0.0 TH/MM3 Basophils # (Auto) 0.0 TH/MM3 Lymphocytes % 4 % Eosinophils % 1 % Metamyelocytes 2 % Myelocytes 2 % Target Cells 1+ [place] Bodies PRESENT Blood Urea Nitrogen 37 MG/DL Creatinine 0.92 MG/DL Random Glucose 109 MG/DL Total Protein 5.7 GM/DL Albumin 1.6 GM/DL Calcium Level 7.4 MG/DL Phosphorus Level 2.7 MG/DL Magnesium Level 2.1 MG/DL Alkaline Phosphatase 655 U/L Aspartate Amino Transf (AST/SGOT) 41 U/L Alanine Aminotransferase (ALT/SGPT) 56 U/L Total Bilirubin 6.4 MG/DL Sodium Level 139 MEQ/L Potassium Level 4.0 MEQ/L Chloride Level 106 MEQ/L Carbon Dioxide Level 23.3 MEQ/L Anion Gap 10 MEQ/L Estimat Glomerular Filtration Rate 82 ML/MIN Protein Corrected Calcium 8.2 MG/DL White Blood Count 9.1 TH/MM3 Red Blood Count 3.51 MIL/MM3 Hemoglobin 10.2 GM/DL Hematocrit 32.2 % Mean Corpuscular Volume 91.7 FL Mean Corpuscular Hemoglobin 29.2 PG Mean Corpuscular Hemoglobin Concent 31.8 % Red Cell Distribution Width 19.5 % Platelet Count 65 TH/MM3 Mean Platelet Volume 11.9 FL CBC Comment AUTO DIFF Differential Total Cells Counted 100 Neutrophils % (Manual) 96 % Band Neutrophils % 1 % Monocytes % 3 % Neutrophils # (Manual) 8.8 TH/MM3 Nucleated Red Blood Cells 1 /100 WBC Differential Comment FINAL DIFF MANUAL Platelet Estimate LOW Platelet Morphology Comment ENLARGED Objective Remarks GENERAL: SKIN: Warm and dry. HEENT: Extraocular muscles intact. NECK: The neck is supple. LIJ central line has been removed CHEST: Few coarse rhonchi Equal bilaterally. Diminished at bases CVS: S1S2 normal no murmurs. ABDOMEN: Abdomen is soft. Incision appears healing well. Ileostomy is functioning well. EXTREMITIES: No pedal edema or cyanosis. Positive sacral decubitus ulcer NEURO: Alert awake. Moves all extremities, following commands. No focal deficits. Able to move limbs against gravity Medications and IVs Current Medications Medications (Trade) Dose Ordered Sig/[place] Route Start Time Stop Time Status Last Admin (Fajardo 5-325 Mg) 1 tab Q4H PRN PO 06/17/17 22:00 07/09/17 04:19 (Fajardo 5-325 Mg) 2 tab Q4H PRN PO 06/17/17 22:00 07/13/17 11:48 (Zofran Inj) 4 mg Q4H PRN IV PUSH 06/17/17 22:00 06/18/17 09:45 Miscellaneous Information Patient in critical care unit? Ass... [id number] .XX 06/18/17 05:45 06/18/17 05:45 Potassium Chloride 100 ml @ 50 mls/hr Q2H PRN IV 06/19/17 07:45 07/09/17 14:03 Potassium Chloride 100 ml @ 50 mls/hr Q2H PRN IV 06/19/17 07:45 (K-Lyte Cl Eff) 50 meq UNSCH PRN PO 06/19/17 07:45 07/10/17 08:33 Potassium Chloride 100 ml @ 25 mls/hr UNSCH PRN IV 06/19/17 07:45 Potassium Chloride 100 ml @ 50 mls/hr Q2H PRN IV 06/19/17 07:45 07/12/17 00:59 Magnesium Sulfate 4 gm/Sodium Chloride 100 ml @ 50 mls/hr UNSCH PRN IV 06/19/17 07:45 Magnesium Sulfate 2 gm/Sodium Chloride 100 ml @ 50 mls/hr UNSCH PRN IV 06/19/17 07:45 (K-Phos) 2,000 mg Q4H PRN PO 06/19/17 07:45 Sodium Phosphate 30 mmol/Sodium Chloride 250 ml @ 42 mls/hr UNSCH PRN IV 06/19/17 07:45 07/01/17 06:24 (K-Phos) 2,000 mg UNSCH PRN PO/TUBE 06/19/17 07:45 Potassium Phosphate 30 mmol/ Sodium Chloride 260 ml @ 42 mls/hr UNSCH PRN IV 06/19/17 07:45 (Albuterol Neb) 2.5 mg Q2HR NEB PRN NEB 06/29/17 14:30 07/05/17 08:44 (K-Lyte Cl Eff) 25 meq DAILY PO 07/05/17 12:00 07/13/17 10:03 Non-Formulary Medication 40 mg HS PO 07/05/17 21:00 07/12/17 21:44 (Cardizem) 60 mg Q6HR PO 07/05/17 12:45 07/13/17 11:47 (Santyl Oint) 1 applic DAILY TOPICAL 07/07/17 09:00 07/13/17 10:05 (Symbicort 160-4.5 Inh) 1 puff Q12HR INH 07/07/17 09:00 07/13/17 10:02 (Lovenox Inj) 40 mg Q24H SQ 07/09/17 09:00 07/13/17 10:04 (Bumex Inj) 1 mg Q12HR IV PUSH 07/10/17 21:00 07/13/17 10:03 (Lomotil Tab) 1 tab Q6H PRN PO 07/10/17 11:00 (SoluMEDROL INJ) 20 mg Q12HR IV PUSH 07/10/17 21:00 07/13/17 10:03 (Protonix) 40 mg DAILY PO 07/11/17 09:00 07/13/17 10:02 (Duoneb Neb) 1 ampule Q6HR NEB NEB 07/10/17 12:45 07/13/17 15:55 (Lanoxin) 0.125 mg DAILY PO 07/11/17 09:00 07/13/17 10:04 (NovoLOG SUPPLEMENTAL SCALE) 1 ACHS SQ 07/11/17 17:00 07/11/17 21:00 (D50w (Vial) Inj) 50 ml UNSCH PRN IV PUSH 07/11/17 15:00 (Glucagon Inj) 1 mg UNSCH PRN OTHER 07/11/17 15:00 (VANCOMYCIN for oral use only) 250 mg QID PO 07/13/17 18:00 07/20/17 18:00 A/P Assessment and Plan 1. Acute Hypoxemic Respiratory Failure resolved/HCAP pseudomonal Aeruginosa Pneumonia/COPD with Exacerbation Extubated 07/06/17, continue Bronchodilator, Mucolytic, incentive spirometry. Steroids. 2. Atrial Fibrillation with RVR/Fluid Overload, - Cardioverted several times without success and amiodarone started for A. fib with RVR - Amio DCd 06/24 due to Liver enzyme elevation. Placed on on Cardizem infusion and Digoxin. very resistant afib and difficult to control. - On PO Cardizem 60 q6 and change digoxin to 125 mg to PO - IV Heparin discontinued due to HIT screen positive hematology consulted. Argatroban DCd 06/[address] Hurley SMILEY negative. On enoxaparin now - s/p Normal saline IV fluids 8L boluses on 06/18/17. Now off maintenance fluid - Scheduled Bumetanide 1 mg IV q12 - 2D Echo normal LV function 3. Status post Left Colectomy with Colorectal Anastomosis/Diverting Ileostomy/ Wedge resection of liver metastasis C Diff Enteritis/ileitis/transaminitis/Cholestasis, patient has Diagnosis of Metastatic Adenocarcinoma of the rectosigmoid Colon. Tolerating PO diet was on TPN off 07/09/17, PPIs by mouth, had Transaminitis , EGD 06/19. Evidence of esophagitis, and erythematous gastritis in the gastric body and gastric antrum, continue PO Vancomycin for C Diff, Dr. Geiger 06/22. Colonoscopy normal. Ileoscopy severe pseudomembranous ileitis, continue Alvimopam 12mg BID for Ileus. 4. Status post partial Resection of the left ureter with anastomosis and placement of double J stent, on Han cath and diuretics 5. Thrombocytopenia HIT ruled out, Argatroban started 06/24/17, DCd 06/26/[address] Hurley. According to Dr. Hurley elevated PTT secondary to decreased liver clearance of argatroban. Back on enoxaparin 6. Sepsis and Bandemia recommended by ID to continue Cefepime 7. C Diff colitis on PO Vancomycin. 8. sacral ulcer Colon and rectal petroleum supply specialist following. consulted wound care, as per Doctor Juanjo he will get General Surgery for probable I and D of the sacral wound. 9. Left Upper extremity thrombosis, to continue Lovenox. PROPH: -Bilateral lower extremity SCDs. Currently on enoxaparin DVT dose, oral Protonix 40 mg daily Discharge Planning Once cleared by specialists. Romeo Chowdhury MD Jul 13, 2017 4:51 pm
--- NOTE | 2017-07-13 18:08 | PD.WCN.NOT ---
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 Communicated with: MARII Kinney, and Doctor Renee Recommendation: Please reposition patient Q2H from left to right sides only, limiting time on back due to stage 4 pressure injury. Cleanse sacral pressure injury daily with NORMAL SALINE ONLY. Apply Santyl ( nickel thickness) to slightly moistened fluffed gauze and loosely packed into wound bed. Secure with dry cover/tape. Additional Information: Patient seen on 5th floor [facility] for follow up of unstageable pressure injury. Removed pillow under patient's R side. Patient turned with minimal assist to L side for wound assessment with the assistance of [facility] and report writer. 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 Wound bed presents with ~85% yellow loosely adherent slough, ~5% pale red tissue, and ~10% bone is visible . Wound measures 5.9cm x 4.3cm x ~1.1cm slough. Undermining is assessed from 11 to 4 o'clock, deepest at 12 o'clock 2.1cm. Cleansed wound with normal saline before applying Santyl ointment ann thickness to moistened fluffed 4x4 gauze and loosely packing into wound bed. Applied skin prep to periwound before covering wound with ABD pad and securing with paper tape. Patient then repositioned to L side with pillow in place for support. Spoke with MARII Kinney regarding patient adherence to plan of care. RN informed report writer that patient removes pillow and lays on back multiple times a day. Patient was to have debridement of sacral wound by Doctor Godinez, Per RN, is refusing debridement. Spoke with patient regarding refusal of debridement of wound. Surgical debridement would be faster than enzymatic and would be beneficial for quicker removal of necrotic tissue so that wound may heal faster. Patient verbalizes understanding.Also spoke with patient on the importance of offloading pressure to sacral area by turning from side to side, to prevent wound from worsening, patient verbalizes understanding. Ostomy Type: Ileostomy Complete: Other (supplies ordered in size 1 3/4" moldable for appliance change ) Yasmine Aragon [facility] Jul 13, 2017 18:08
[2017-07-13] MEDS: VANCOMYCIN 500 MG VIAL (FOR ORAL USE ONLY) PO SCH ×2 (18:46→22:16)
[2017-07-13] MEDS: [UNRECOGNIZED DRUG - REMARK] PO SCH (22:15)
[2017-07-14] VITALS (10 sets, daily range): BP systolic 114–127; BP diastolic 55–68; PULSE 74–88; RESP 15–23; TEMP 97.7–98.2; O2SAT 93–98
[2017-07-14] MEDS: RESP: ALBUTEROL 2.5 MG/IPRATROPIUM 0.5 MG NEB (SCH) NEB ×2 (03:54→08:14)
[2017-07-14] MEDS: DILTIAZEM HCL 60 MG TAB PO SCH ×3 (05:41→18:00)
[2017-07-14 06:01] LABS: AUTOMATED NEUTROPHIL # 8.5 TH/MM3 (1.8-7.7); BASOPHIL # 0.1 TH/MM3 (0-0.2); BASOPHIL % 1.2 % (0.0-2.0); HEMATOCRIT 31.6 % (39.0-51.0); LYMPH % 9.7 % (9.0-44.0); MEAN CELL VOLUME 91.1 FL (80.0-100.0); MEAN CORPUSCULAR HEMOGLOBIN 28.6 PG (27.0-34.0); MEAN CORPUSCULAR HGB CONC 31.4 % (32.0-36.0); MONO % 6.6 % (0.0-8.0); NEUT % 82.5 % (16.0-70.0); PLATELET COUNT 77 TH/MM3 (150-450); RED BLOOD COUNT 3.47 MIL/MM3 (4.50-5.90); WHITE BLOOD COUNT 10.3 TH/MM3 (4.0-11.0)
[2017-07-14 06:05] LABS: HEMO FLAGS AUTO DIFF
[2017-07-14 06:26] LABS: ALT (GPT) 82 U/L (12-78); ANION GAP 9 MEQ/L (5-15); AST (GOT) 53 U/L (15-37); BICARBONATE 25.8 MEQ/L (21.0-32.0); BLOOD UREA NITROGEN 31 MG/DL (7-18); CHLORIDE 102 MEQ/L (98-107); GLOMERULAR FILTRATION RATE 80 ML/MIN (>89); MAGNESIUM 2.1 MG/DL (1.5-2.5); POTASSIUM 3.6 MEQ/L (3.5-5.1); SODIUM (NA) 137 MEQ/L (136-145)
[2017-07-14 06:28] LABS: ALKALINE PHOSPHATASE 829 U/L (45-117); TOTAL BILIRUBIN ADULT 6.9 MG/DL (0.2-1.0)
[2017-07-14] MEDS: INSULIN ASPART SUPPLEMENTAL SCALE SQ SCH ×4 (08:00→20:49)
[2017-07-14 08:05] LABS: MYELOCYTES 1 % (0-0); NEUTROPHIL # MANUAL DIFF 9.4 TH/MM3 (1.8-7.7); POLYS (SEG NEUTROPHILS) 90 % (16-70); WBC DIFF SAMPLE 100
[2017-07-14 08:06] LABS: PLATELET ESTIMATE SMEAR LOW (NORMAL); PLATELET MORPHOLOGY ENLARGED (NORMAL); SCAN/DIFF FINAL DIFF MANUAL; TARGET CELLS 1+ (NORMAL)
--- NOTE | 2017-07-14 09:17 | HHI.GIFU ---
Subjective Remarks Reconsulted for elevated LFTs. Pt alert and oriented. He denies any nausea and vomiting. He did not eat much of breakfast today, but states that his appetite has been good and that he has been eating most of his meals. He does not have any RUQ tenderness on exam. VSS. (Tami Sanderson) Objective Vitals I&O Vital Signs Date Time Temp Pulse Resp B/P (MAP) Pulse Ox O2 Delivery O2 Flow Rate FiO2 07/14/17 06:00 85 07/14/17 04:00 97.9 80 20 114/61 (78) 95 07/14/17 04:00 80 07/14/17 02:00 74 07/14/17 00:00 78 07/14/17 00:00 98.2 78 20 127/65 (85) 95 07/13/17 22:00 72 07/13/17 20:39 95 21 07/13/17 20:00 97.9 83 24 108/55 (72) 84 07/13/17 20:00 83 07/13/17 18:00 77 18 133/63 (86) 94 07/13/17 18:00 77 07/13/17 17:00 94 30 116/59 (78) 88 07/13/17 16:00 79 07/13/17 16:00 98.3 79 19 118/62 (80) 96 07/13/17 15:00 82 20 128/67 (87) 07/13/17 14:00 88 23 113/59 (77) 07/13/17 14:00 88 07/13/17 13:00 90 23 140/65 (90) 71 07/13/17 12:00 98.0 79 24 126/65 (85) 07/13/17 12:00 79 07/13/17 11:00 81 23 115/60 (78) 98 07/13/17 10:00 87 23 114/68 (83) 07/13/17 10:00 87 I/O 07/13/17 07/13/17 07/13/17 07/14/17 07/14/17 07/14/17 07:00 15:00 23:00 07:00 15:00 23:00 Intake Total 440 ml 100 ml 480 ml 240 ml Output Total 1000 ml 650 ml 800 ml Balance -560 ml 100 ml -170 ml -560 ml Intake Oral 240 ml 480 ml 240 ml IV Total 200 ml 100 ml Output Urine Total 850 ml 650 ml 800 ml Stool Total 150 ml Laboratory Laboratory Tests Test 07/14/17 04:08 White Blood Count 10.3 Red Blood Count 3.47 Hemoglobin 9.9 Hematocrit 31.6 Mean Corpuscular Volume 91.1 Mean Corpuscular Hemoglobin 28.6 Mean Corpuscular Hemoglobin Concent 31.4 Red Cell Distribution Width 21.0 Platelet Count 77 Mean Platelet Volume 12.2 Neutrophils (%) (Auto) 82.5 Lymphocytes (%) (Auto) 9.7 Monocytes (%) (Auto) 6.6 Eosinophils (%) (Auto) 0.0 Basophils (%) (Auto) 1.2 Neutrophils # (Auto) 8.5 Lymphocytes # (Auto) 1.0 Monocytes # (Auto) 0.7 Eosinophils # (Auto) 0.0 Basophils # (Auto) 0.1 CBC Comment AUTO DIFF Differential Total Cells Counted 100 Neutrophils % (Manual) 90 Lymphocytes % 5 Monocytes % 4 Neutrophils # (Manual) 9.4 Myelocytes 1 Differential Comment FINAL DIFF MANUAL Platelet Estimate LOW Platelet Morphology Comment ENLARGED Target Cells 1+ Blood Urea Nitrogen 31 Creatinine 0.94 Random Glucose 128 Total Protein 6.2 Albumin 1.9 Calcium Level 7.8 Phosphorus Level 2.6 Magnesium Level 2.1 Alkaline Phosphatase 829 Aspartate Amino Transf (AST/SGOT) 53 Alanine Aminotransferase (ALT/SGPT) 82 Total Bilirubin 6.9 Sodium Level 137 Potassium Level 3.6 Chloride Level 102 Carbon Dioxide Level 25.8 Anion Gap 9 Estimat Glomerular Filtration Rate 80 Date/Time Source Procedure Growth Status 07/02/17 18:54 Blood Peripheral Aerobic Blood Culture - Final NO GROWTH IN 5 DAYS Complete 07/02/17 18:54 Blood Peripheral Anaerobic Blood Culture - Final NO GROWTH IN 5 DAYS Complete 07/02/17 17:00 Sputum Endotracheal Gram Stain - Final Complete 07/02/17 17:00 Sputum Culture - Final Pseudomonas Aeruginosa Complete 07/02/17 15:45 Urine Clean Catch Urine Culture - Final Pseudomonas Aeruginosa Complete Imaging Last Impressions Chest X-Ray 07/10/17 0600 Signed Impressions: Service Date/Time: Monday, July 10, 2017 04:39 - CONCLUSION: No significant change with persistent bilateral pulmonary parenchymal opacity with lower lung zone predominance likely worsening pulmonary edema and bilateral pleural effusions. Luis Armando Michel MD Abdomen X-Ray 07/06/17 0000 Signed Impressions: Service Date/Time: Thursday, July 06, 2017 13:44 - CONCLUSION: 1. Gaseous distention of multiple bowel loops. This has slightly improved. 2. Left-sided nephroureteral stent in good position. Sarwat Suarez MD Liver Ultrasound 06/24/17 0000 Signed Impressions: Service Date/Time: Saturday, June 24, 2017 16:38 - CONCLUSION: 1. Small volume ascites. 2. Small right effusion. Pierce Ospina Jr., MD Upper Extremity Ultrasound 06/23/17 0000 Signed Impressions: Service Date/Time: , June 23, 2017 20:03 - CONCLUSION: Noncompressibility right cephalic vein and left basilic vein consistent with venous thrombosis Trav Hsieh MD Lower Extremity Ultrasound 06/23/17 0000 Signed Impressions: Service Date/Time: June 20:16 - CONCLUSION: Normal examination. No evidence DVT Trav Hsieh MD Chest CT 06/20/17 0000 Signed Impressions: Service Date/Time: Tuesday, June 20, 2017 07:42 - CONCLUSION: 1. Bilateral effusions and consolidative changes in both lung bases. Bao Lora MD Abdomen/Pelvis CT 06/20/17 0000 Signed Impressions: Service Date/Time: Tuesday, June 20, 2017 07:39 - CONCLUSION: 1. Dilated stomach and multiple dilated loops of small bowel, likely ileus. 2. No definite gastric volvulus. 3. Fat containing right inguinal hernia which also contains small portion of the urinary bladder and minimal fluid. 4. Left-sided nephroureteral stent in good position. 5. Bibasilar consolidation and small pleural effusions. Sarwat Suarez MD Physical Exam HEENT: Normocephalic; atraumatic; no jaundice. CHEST: Resp. even/unlabored, diminished CARDIAC: Regular, sr on monitor ABDOMEN: Soft, mildly distended, NONTENDER on exam. ileostomy with small liquid in ostomy bag. EXTREMITIES: BUE edema. STRIP WINDER: Alert and oriented, generalized weakness (Tami Sanderson [employer]) Assessment and Plan Plan ASSESSMENT: - Reconsulted for Elevated LFTs. We have evaluated him in the past for elevated LFTs. (Peak on 06/25- T. Bili 1.7, AST 1300, ALT 386, ALK Phosph 239) . Likely related to shocked liver from hypotensive episodes over night. The AST/ALT have improved, but his total bilirubin has been slowly rising. T. Bili 6.9, AST 53, ALT 82, Alk PHosph 829. Previous workup- Liver US (06/24/17)---> Small volume ascites. Small right effusion. ASMA negative. Alpha 1 Antitrypsin 221. Hepatitis panel negative, LOIS neg, AMA < 20.0, Ceruloplasmin 74. AFP 3.3, Ferritin 5508. Iron saturation > 100%. He received one unit of blood on 06/18. Hfe gene negative C282Y, H63D undetected. It was thought that his previous elevation was multifactorial- related to infection, TPN, abx, and hypotension. Now, it seems to be more the bilirubin that is increasing. We will fractionate bilirubin, get US, and recommend stopping steroids- as these may be contributing to her cholestasis. Spoke with Dr. Renee and this is okay from his standpoint. Avoid hepatotoxins. - Severe sepsis with lactic acidosis with concern for possible bowel ischemia, CDifficile. Improved. Oral Vanco. - CDiff. Oral vanco. - Respiratory failure, small pleural effusion. Vent per [facility]. Improved - Anemia. S/P 1 unit prbc. ..6. - Atrial fibrillation with RVR. Now sinus rhythm - Thrombocytopenia. S/P 1 unit platelet Plt 77 - Metastatic colon cancer. S/P lower anterior resection/coloanal anastomosis, resection and reanastomosis of the left ureter with ureteral anastomosis and double-J stent placement, wedge resection of hepatic metastasis, mobilization of the splenic flexure, and diverting closed loop ileostomy with Dr. Geiger and Dr. Pelayo on 05/26/17. Dr. Noel is his oncologist, but he has not seen him since his surgery PLAN: - LYLE - D/C Solumedrol- d/w attending - US GB - Fractionate bilirubin - LFT in am - Supportive care - Avoid hepatotoxins - Avoid hypotensive episodes - Further recommendations to follow based on results of above - Pt seen and examined by Dr. Guerra and myself and this note is written on his behalf (Sanderson,Tami Erin [employer]) Physician Comments Same and examined, plan as above. Will check US results and GGTP Follow LFT's daily. Further recommendations to follow. (Hedy Guerra MD) Tami Sanderson Jul 14, 2017 09:17 Hedy Guerra MD Jul 14, 2017 10:53
[2017-07-14] MEDS: ENOXAPARIN SODIUM 40 MG/0.4 ML SYRINGE SQ SCH (10:10)
[2017-07-14] MEDS: BUDESONIDE-FORMOTEROL 160/4.5 MCG INHALER INH SCH ×2 (10:11→20:51)
[2017-07-14] MEDS: VANCOMYCIN 500 MG VIAL (FOR ORAL USE ONLY) PO SCH ×4 (10:11→20:49)
[2017-07-14] MEDS: DIGOXIN 0.125 MG TAB PO SCH (10:11)
[2017-07-14] MEDS: PANTOPRAZOLE SOD 40 MG DELAYED RELEASE TAB PO SCH (10:11)
[2017-07-14] MEDS: BUMETANIDE INJ 1 MG/4 ML VIAL IV PUSH SCH ×2 (10:12→20:49)
[2017-07-14] MEDS: POTASSIUM CHLORIDE 25 MEQ EFFERVESCENT TAB PO SCH (10:12)
[2017-07-14] MEDS: COLLAGENASE OINT 30 GM TUBE TOPICAL SCH (10:13)
[2017-07-14 10:38] LABS: INDIRECT BILIRUBIN 1.4 MG/DL (0.0-0.8); TOTAL BILIRUBIN ADULT 6.9 MG/DL (0.2-1.0)
--- NOTE | 2017-07-14 11:33 | HHI.PR ---
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 He presented yesterday with 5 day history of abdominal discomfort and increasing weakness. No history of high output from ileostomy. He was admitted to the colorectal surgery for dehydration and probable UTI. He was placed on ciprofloxacin and IV hydration. According to Dr. Geiger's note it was difficult dissection/resection colon mass because of the pelvic sidewall adherence and the adherence to the left ureter. A portion of ureter was resected due to possibility of tumor infiltration, and Dr. Augustine Pelayo re- anastomosed the ureter and placed left-sided double-J stent. Also 1 cm hepatic metastasis in his liver that was excised. Hospitalist consultation was requested for medical management and evaluation of tachycardia today. He was seen by Dr. Jay and was placed on infusion of Cardizem for heart rate 140s. Patient became hypotensive with systolic blood pressure early 90s. Lab work showed WBC 14.5 with 44% bands, creat increase from 1.2 to 1.4 and severely increased lactate at 8 from admission lactate of 2.6. CT of the abdomen pelvis done yesterday showed probable small bowel ileus. I evaluated the patient in the ICU. He is tachycardic in 140s, hypotensive and systolic blood pressure in mid 80s. Clinically appears very dehydrated, an NG tube was placed with approximately 3 L of some coffee-ground output. ABG shows a base excess of -10 and bicarbonate 12. I have ordered 4 liter normal saline boluses start 1 amp of bicarbonate, discontinued the LR infusion, and started bicarb gtt. Discontinue ciprofloxacin, started Zosyn every 6 hours, vancomycin 1 g 1. His elevated lactic acid and bandemia most likely secondary to severe sepsis, ileus, and severe dehydration. Serial lactate is ordered SUBJ 06/19: Lactic acid remains elevated at 6.6 despite getting 9 L of crystalloid boluses in last 24 hours. Tachycardia has improved heart rate in 110s. Remains on vasopressin at 0.04 units/min. Urine output almost 1200 mL overnight, OGT initial output was almost 3 L when placed yesterday a.m. Overnight had 550 mL of greenish brown fluid output. EGD pending today rule out gastric ischemia per Dr. Romero. Apparently Flex sig was negative post op in Dr. Geiger's office 06/20: Developed A. fib with RVR. Heart rate 200. Hemodynamically unstable, synchronized cardioversion attempted by Dr. Morales 100 200 J. Given 3 g mag sulfate and 80 mEq KCl 1, 0.5 digoxin 1 and started on amiodarone and Giorgio- Synephrine. Intubated due to hemodynamic instability. Currently remains sedated. Currently on Giorgio-Synephrine 80 mcg/m, and amiodarone. CT chest abdomen pelvis again confirms gastric and small bowel distention/ileus. UO 1800 ml in 24 hours 06/21: Remains critically ill, intubated sedated, on 100 mcg/min neosynpehrine. HR better controlled. NG output 1500, UO >1.4L. Am labs pending. Ileostomy sample positive for C Diff on PO vanc IV Flagyl. 06/22: Remains intubated sedated. Urine output 3000 mL with Bumex. NGT [address] Geiger did colonoscopy which was normal. Ileoscopy showed pseudomembranous colitis. Currently on 200 mcg/min of neosynephrine. Afib with RVR HR in 140's 06/23: Remains intubated sedated, remains in atrial fibrillation with RVR. Still requiring high doses of Giorgio-Synephrine at 190 mcg/min. UO 2.5L. chest x- ray showed bilateral large effusions. KUB shows improving small bowel distention. WBC count is slightly improved 06/24: Unable to control HR. Repeat shock x3 today. remains in atrial fibrillation with RVR rates 160-170 intermittently. Remains on amiodarone but will discontinued due to elevation of liver enzymes AST 546 ALT 158. (GI notified). Start Cardizem infusion and also give Surjit 0.5 mg 1. Platelet count continues to drop from 67 to today 45. Hematology following will start of Argatroban today. Creatinine has slightly increased to 1.3 to will DC Bumex infusion 06/25: Patient remains intubated sedated critically ill. Heart rate controlled for the first time since atrial fibrillation started. Heart rate remains 80- 90. Urine output 1200 mL in 24 hours but BUN/creatinine increasing 44/1.7. I will hydrate with 50 mL/hr normal saline for 24 hours. Transaminitis increasing AST 1300 ALT 386. Ultrasound of the liver unremarkable GI following 06/26: PTT elevated due to Argatorban/Liver failure. Dr. Hurley has DCd argatroban. SMILEY pending. Pl count is 21. Currently in sinus rhythm on Cardizem infusion. Not on any pressors. Creatinine improved to 1.2. Urine output adequate. Becomes very tachypneic on attempted CPAP. Discussed with Dr. Geiger Will Start Trickle Tube Feeds 06/27: no improvements. off pathway. thrombocytopenia persists. unable to wean from mechanical ventilation. neuro exam poor. will likely need trach. 06/28: platelets worse today. SMILEY not resulted yet. failing SBT and mental status poor. poor prognosis. will need trach and LTAC placement. 06/29: Tmax 101. Currently 99.6. Tolerating trickle tube feeds. Continues to fail spontaneous breathing trials. 06/30: Lasted 1 hour spontaneous breathing trial this AM. 2.5 hours this afternoon. Currently afebrile. Hemoglobin remained stable. 07/01: lasted 4 hours on SBT, except 15 of pressure support, so not ready clinically for extubation, and even after only 4 hours, tired out and became hypoxic and tachypneic. more awake today and following commands. will likely need tracheostomy. 07/02: new fever today, but wbc normal. per ID, will culture and observe, continue flagyl/PO vanc. otherwise no changes. no improvements. 07/03: pseudomonas in sputum and urine. increase in cough and secretions. ID following and added cefepime. still weak and failing SBTs for hypoxia and tachypnea. needs tracheostomy. will need long-term rehab and likely LTAC. 07/04: Wakes up easily, follows commands. On 5 mg/hr versed. CXR pending. UO adequate. Resume SBT. Significant weight gain. approx 15 kg up. Give Bumex 2 mg IV x1 07/05: Patient is intubated sedated with 50 g per hour of fentanyl. Urine output 3 L in [address] on scheduled Bumex. Tolerating CPAP at 15/5. bring in Viibryd, which apparently patient had been on for long time. I have resumed it. 07/06: Tolerating CPAP 10/5 better today, Wakes up and following commands. Good UO with Bumex. Chest x-ray basilar opacities essentially unchanged. Increase IV Bumex to 1 mg every 12 07/07: Extubated yesterday tolerating well. Slightly tachypneic but maintain oxygen saturation and no subjective shortness of breath. Urine output remains excellent on Bumex, 2.9L in 24 hours 07/08: Lying on bed breathing comfortably urine output excellent with increased Bumex dose. 5.8 L in 24 hours. WBC count stable. Increase activity up to stretcher chair today 07/09: Tolerating by mouth diet. Eating atleast 50%. TPN reduced by half yesterday. UO remains excellent with diuresis. Attempt TPN wean off today. Breathing comfortably except intermittent tachypnea. 07/10: Appetite better, breathing more comfortably. Off TPN. UO remains excellent. Platelet count slightly dropped to 46 from 49. I will continue steroids at Solu-Medrol 20 mg IV every 12, taper only very slowly 07/11: Afebrile. Resting comfortably in bed. On nasal cannula. Reviewed vascular note does not want sacral decubitus debridement Hospitalist Notes: 07/12: Seen in his bedroom discussed with nurse recommended to transfer to Medical Floor, he has Diagnosis of Severe Sepsis with Bandemia, status post rectal surgery secondary to rectal cancer and recent ureteral resection and double J ureteral stent, C Diff with Pseudomembranous Enteritis/sepsis, acute respiratory failure, Pseudomonas Pneumonia and UTI, ID specialist recommended PO Vancomycin and Cefepime, No nausea, vomit or diarrhea. 07/13: Seen in his bedroom in the presence of his Mrs. Beauchamp, he has Diagnosis of Metastatic Adenocarcinoma of the rectosigmoid Colon, developed Sacral Ulcer his was talking to me and wants to get a bed that her is able to control better this issue was discussed with Nurse Miss Farahhanie This is a special bed and there is no another way to handle that the control at the rail on each side of the bed, he wants a control different than the one on the rails has thrombocytopenia, has Left Upper extremity thrombosis, to continue Lovenox. awaiting for rehab admission. 07/14: Seen in his bedroom stable his by his side, discussed with nurse Miss Bartlett no new complaint, Doctor Juanjo asked for Plastic Surgery Evaluation not yet performed. no nausea, vomit or diarrhea. Objective Vital Signs Date Time Temp Pulse Resp B/P (MAP) Pulse Ox O2 Delivery O2 Flow Rate FiO2 07/14/17 06:00 85 07/14/17 04:00 97.9 80 20 114/61 (78) 95 07/14/17 04:00 80 07/14/17 02:00 74 07/14/17 00:00 78 07/14/17 00:00 98.2 78 20 127/65 (85) 95 07/13/17 22:00 72 07/13/17 20:39 95 21 07/13/17 20:00 97.9 83 24 108/55 (72) 84 07/13/17 20:00 83 07/13/17 18:00 77 18 133/63 (86) 94 07/13/17 18:00 77 07/13/17 17:00 94 30 116/59 (78) 88 07/13/17 16:00 79 07/13/17 16:00 98.3 79 19 118/62 (80) 96 07/13/17 15:00 82 20 128/67 (87) 07/13/17 14:00 88 23 113/59 (77) 07/13/17 14:00 88 07/13/17 13:00 90 23 140/65 (90) 71 07/13/17 12:00 98.0 79 24 126/65 (85) 07/13/17 12:00 79 I/O 07/13/17 07/13/17 07/13/17 07/14/17 07/14/17 07/14/17 07:00 15:00 23:00 07:00 15:00 23:00 Intake Total 440 ml 100 ml 480 ml 240 ml Output Total 1000 ml 650 ml 800 ml Balance -560 ml 100 ml -170 ml -560 ml Intake Oral 240 ml 480 ml 240 ml IV Total 200 ml 100 ml Output Urine Total 850 ml 650 ml 800 ml Stool Total 150 ml Result Diagram: 07/14/1740707/14/17407 Imaging Last Impressions Chest X-Ray 07/10/17 06 Signed Impressions: Service Date/Time: Monday, July 10, 2017 04:39 - CONCLUSION: No significant change with persistent bilateral pulmonary parenchymal opacity with lower lung zone predominance likely worsening pulmonary edema and bilateral pleural effusions. Luis Armando Michel MD Abdomen X-Ray 07/06/17 0000 Signed Impressions: Service Date/Time: Thursday, July 06, 2017 13:44 - CONCLUSION: 1. Gaseous distention of multiple bowel loops. This has slightly improved. 2. Left-sided nephroureteral stent in good position. Sarwat Suarez MD Liver Ultrasound 06/24/17 0000 Signed Impressions: Service Date/Time: Saturday, June 24, 2017 16:38 - CONCLUSION: 1. Small volume ascites. 2. Small right effusion. Pierce Ospina Jr., MD Upper Extremity Ultrasound 06/23/17 0000 Signed Impressions: Service Date/Time: June 20:03 - CONCLUSION: Noncompressibility right cephalic vein and left basilic vein consistent with venous thrombosis Trav Hsieh MD Lower Extremity Ultrasound 06/23/17 Signed Impressions: Service Date/Time: June 20:16 - CONCLUSION: Normal examination. No evidence DVT Trav Hsieh MD Chest CT 06/20/17 0000 Signed Impressions: Service Date/Time: Tuesday, June 20, 2017 07:42 - CONCLUSION: 1. Bilateral effusions and consolidative changes in both lung bases. Bao Lora MD Abdomen/Pelvis CT 06/20/17 0000 Signed Impressions: Service Date/Time: Tuesday, June 20, 2017 07:39 - CONCLUSION: 1. Dilated stomach and multiple dilated loops of small bowel, likely ileus. 2. No definite gastric volvulus. 3. Fat containing right inguinal hernia which also contains small portion of the urinary bladder and minimal fluid. 4. Left-sided nephroureteral stent in good position. 5. Bibasilar consolidation and small pleural effusions. Sarwat Suarez MD Other Results Laboratory Tests Test 06/18/17 04:50 06/18/17 13:15 06/18/17 16:20 06/18/17 17:15 Nasal Screen MRSA (PCR) MRSA NOT DETECTED Urine Hyaline Casts 13 /lpf Urine Granular Casts 6 /lpf Random Cortisol 129.1 MCG/DL Atypical Lymphocytes % Test 06/19/17 05:50 06/19/17 07:55 06/19/17 08:30 06/19/17 18:18 Dohle Bodies PRESENT Red Cell Morphology Comment NORMAL Venous Blood pH 7.46 Venous Blood Partial Pressure CO2 38 mmHg Venous Blood Partial Pressure O2 33 mmHg Venous Blood HCO3 27 mmol/L Venous Blood Oxygen Saturation 58 % Venous Blood Oxygen Content 8.2 Vol % Venous Blood Base Excess 3.1 mmol/L Total Creatine Kinase 93 U/L Stool C. difficile Toxin (PCR) POSITIVE Stl C. difficile Toxin Epiderm 027 PRESUMPTIVE NEGATIVE Test 06/20/17 04:23 06/20/17 14:15 06/22/17 17:55 06/23/17 18:50 Blood Gas Liter Flow 6 L/M Troponin I 0.11 NG/ML Thyroid Stimulating Hormone 3rd Gen 1.860 uIU/ML Random Vancomycin Level 7.2 COMMENT Heparin-Induced Platelet Ab (Joanne) POSITIVE HIPA Patient Optical Density 0.504 O.D. Serotonin Release Assay NEGATIVE SMILEY UF Heparin Low Dose 0.1 IU/mL 8 SMILEY UF Heparin Low Dose 0.5 IU/mL 4 SMILEY UF Heparin High Dose 100 IU/mL 4 Test 06/24/17 06:18 06/24/17 15:00 06/27/17 04:22 06/28/17 17:28 Toxic Granulation 1+ Iron Level 76 MCG/DL Total Iron Binding Capacity 66 MCG/DL Percent Iron Saturation % Ferritin 5508 NG/ML [id number] 221 mg/dL Ceruloplasmin 74 mg/dL Tumor Marker Alpha Fetoprotein 3.3 NG/ML Anti-Nuclear Antibody Screen NEG Mitochondria M2 Antibody LESS THAN 20.0 U Anti-Smooth Muscle Antibody Negative Hepatitis A IgM Antibody NEGATIVE Hepatitis B Surface Antigen NEGATIVE Hepatitis B Core IgM Antibody NEGATIVE Hepatitis C Antibody NEGATIVE Promyelocytes 1 % Hemochromatosis Source Hemochromatosis Specimen WB Whole Blood Hemochromatosis Method . Hereditary Hemochromatosis SEE BELOW Hemochromatosis Results . Hemochromatosis Interpretation . Hemochromatosis Reviewed By SEE BELOW Lactic Acid Level 1.3 mmol/L Test 07/01/17 04:00 07/02/17 11:44 07/02/17 15:45 07/03/17 04:00 Ammonia LESS THAN 10 MCMOL/L Amylase Level 112 U/L Lipase 608 U/L Digoxin Level 0.8 NG/ML Haptoglobin 190 MG/DL Urine Color DARK-YELLOW Urine Turbidity HAZY Urine pH 5.5 Urine Specific [place] 1.022 Urine Protein 100 mg/dL Urine Glucose (UA) TRACE mg/dL Urine Ketones NEG mg/dL Urine Occult Blood LARGE Urine Nitrite POS Urine Bilirubin MOD Urine Urobilinogen LESS THAN 2.0 MG/DL Urine Leukocyte Esterase LARGE Urine RBC 71 /hpf Urine WBC 181 /hpf Urine WBC Clumps MANY Urine Squamous Epithelial Cells <1 /hpf Urine Bacteria RARE /hpf Urine Mucus FEW /lpf Microscopic Urinalysis Comment CATH-CULTURE IND Blood Urea Nitrogen 23 MG/DL Creatinine 0.79 MG/DL Random Glucose 149 MG/DL Total Protein 5.2 GM/DL Calcium Level 7.2 MG/DL Lactate Dehydrogenase 411 U/L Sodium Level 148 MEQ/L Potassium Level 3.7 MEQ/L Chloride Level 115 MEQ/L Carbon Dioxide Level 27.9 MEQ/L Test 07/03/17 06:00 07/05/17 05:20 07/06/17 11:45 07/10/17 04:05 Basophils % 2 % Toxic Vacuolation PRESENT Polychromasia 2.0 % Basophilic Stippling MOD Prothrombin Time 12.0 SEC Prothromb Time International Ratio 1.1 RATIO Activated Partial Thromboplast Time 33.6 SEC Fibrinogen 424 mg/dL Blood Gas Puncture Site ART LINE Blood Gas Patient Temperature 98.6 Blood Gas HCO3 24 mmol/L Blood Gas Base Excess 0.9 mmol/L Blood Gas Oxygen Saturation 94 % Arterial Blood pH 7.46 Arterial Blood Partial Pressure CO2 34 mmHg Arterial Blood Partial Pressure O2 83 mmHg Arterial Blood Oxygen Content 12.3 Vol % Arterial Blood Carboxyhemoglobin 1.3 % Arterial Blood Methemoglobin 1.2 % Blood Gas Hemoglobin 9.2 G/DL Oxygen Delivery Device VENTILATOR Blood Gas Ventilator Setting CPAP [id number] Blood Gas Inspired Oxygen 35 % Blastocytes 1 % Test 07/11/17 17:07 07/12/17 03:42 07/13/17 05:08 07/14/17 04:08 Tear Drop Cells Eosinophils % 1 % Metamyelocytes 2 % [place] Bodies PRESENT Protein Corrected Calcium 8.2 MG/DL Band Neutrophils % 1 % Nucleated Red Blood Cells 1 /100 WBC White Blood Count 10.3 TH/MM3 Red Blood Count 3.47 MIL/MM3 Hemoglobin 9.9 GM/DL Hematocrit 31.6 % Mean Corpuscular Volume 91.1 FL Mean Corpuscular Hemoglobin 28.6 PG Mean Corpuscular Hemoglobin Concent 31.4 % Red Cell Distribution Width 21.0 % Platelet Count 77 TH/MM3 Mean Platelet Volume 12.2 FL Neutrophils (%) (Auto) 82.5 % Lymphocytes (%) (Auto) 9.7 % Monocytes (%) (Auto) 6.6 % Eosinophils (%) (Auto) 0.0 % Basophils (%) (Auto) 1.2 % Neutrophils # (Auto) 8.5 TH/MM3 Lymphocytes # (Auto) 1.0 TH/MM3 Monocytes # (Auto) 0.7 TH/MM3 Eosinophils # (Auto) 0.0 TH/MM3 Basophils # (Auto) 0.1 TH/MM3 CBC Comment AUTO DIFF Differential Total Cells Counted 100 Neutrophils % (Manual) 90 % Lymphocytes % 5 % Monocytes % 4 % Neutrophils # (Manual) 9.4 TH/MM3 Myelocytes 1 % Differential Comment FINAL DIFF MANUAL Platelet Estimate LOW Platelet Morphology Comment ENLARGED Target Cells 1+ Blood Urea Nitrogen 31 MG/DL Creatinine 0.94 MG/DL Random Glucose 128 MG/DL Total Protein 6.2 GM/DL Albumin 1.9 GM/DL Calcium Level 7.8 MG/DL Phosphorus Level 2.6 MG/DL Magnesium Level 2.1 MG/DL Alkaline Phosphatase 829 U/L Aspartate Amino Transf (AST/SGOT) 53 U/L Alanine Aminotransferase (ALT/SGPT) 82 U/L Total Bilirubin 6.9 MG/DL Sodium Level 137 MEQ/L Potassium Level 3.6 MEQ/L Chloride Level 102 MEQ/L Carbon Dioxide Level 25.8 MEQ/L Anion Gap 9 MEQ/L Estimat Glomerular Filtration Rate 80 ML/MIN Direct Bilirubin 5.5 MG/DL Indirect Bilirubin 1.4 MG/DL Objective Remarks GENERAL: No acute distress. SKIN: Warm and dry. HEENT: Extraocular muscles intact. NECK: The neck is supple. LIJ central line has been removed CHEST: Few coarse rhonchi Equal bilaterally. Diminished at bases CVS: S1S2 normal no murmurs. ABDOMEN: Abdomen is soft. Incision appears healing well. Ileostomy is functioning well. EXTREMITIES: No pedal edema or cyanosis. Positive sacral decubitus ulcer NEURO: Alert awake. Moves all extremities, following commands. No focal deficits. Able to move limbs against gravity Medications and IVs Current Medications Medications (Trade) Dose Ordered Sig/[place] Route Start Time Stop Time Status Last Admin ([place]ling 5-325 Mg) 1 tab Q4H PRN PO 06/17/17 22:00 07/09/17 04:19 ([place]ling 5-325 Mg) 2 tab Q4H PRN PO 06/17/17 22:00 07/13/17 11:48 (Zofran Inj) 4 mg Q4H PRN IV PUSH 06/17/17 22:00 06/18/17 09:45 Miscellaneous Information Patient in critical care unit? Ass... [id number] .XX 06/18/17 05:45 06/18/17 05:45 Potassium Chloride 100 ml @ 50 mls/hr Q2H PRN IV 06/19/17 07:45 07/09/17 14:03 Potassium Chloride 100 ml @ 50 mls/hr Q2H PRN IV 06/19/17 07:45 (K-Lyte Cl Eff) 50 meq UNSCH PRN PO 06/19/17 07:45 07/10/17 08:33 Potassium Chloride 100 ml @ 25 mls/hr UNSCH PRN IV 06/19/17 07:45 Potassium Chloride 100 ml @ 50 mls/hr Q2H PRN IV 06/19/17 07:45 07/12/17 00:59 Magnesium Sulfate 4 gm/Sodium Chloride 100 ml @ 50 mls/hr UNSCH PRN IV 06/19/17 07:45 Magnesium Sulfate 2 gm/Sodium Chloride 100 ml @ 50 mls/hr UNSCH PRN IV 06/19/17 07:45 (K-Phos) 2,000 mg Q4H PRN PO 06/19/17 07:45 Sodium Phosphate 30 mmol/Sodium Chloride 250 ml @ 42 mls/hr UNSCH PRN IV 06/19/17 07:45 07/01/17 06:24 (K-Phos) 2,000 mg UNSCH PRN PO/TUBE 06/19/17 07:45 Potassium Phosphate 30 mmol/ Sodium Chloride 260 ml @ 42 mls/hr UNSCH PRN IV 06/19/17 07:45 (Albuterol Neb) 2.5 mg Q2HR NEB PRN NEB 06/29/17 14:30 07/05/17 08:44 (K-Lyte Cl Eff) 25 meq DAILY PO 07/05/17 12:00 07/14/17 10:12 Non-Formulary Medication 40 mg HS PO 07/05/17 21:00 07/13/17 22:15 (Cardizem) 60 mg Q6HR PO 07/05/17 12:45 07/14/17 05:41 (Santyl Oint) 1 applic DAILY TOPICAL 07/07/17 09:00 07/14/17 10:13 (Symbicort 160-4.5 Inh) 1 puff Q12HR INH 07/07/17 09:00 07/14/17 10:11 (Lovenox Inj) 40 mg Q24H SQ 07/09/17 09:00 07/14/17 10:10 (Bumex Inj) 1 mg Q12HR IV PUSH 07/10/17 21:00 07/14/17 10:12 (Lomotil Tab) 1 tab Q6H PRN PO 07/10/17 11:00 (Protonix) 40 mg DAILY PO 07/11/17 09:00 07/14/17 10:11 (Duoneb Neb) 1 ampule Q6HR NEB NEB 07/10/17 12:45 07/14/17 08:14 (Lanoxin) 0.125 mg DAILY PO 07/11/17 09:00 07/14/17 10:11 (NovoLOG SUPPLEMENTAL SCALE) 1 ACHS SQ 07/11/17 17:00 07/11/17 21:00 (D50w (Vial) Inj) 50 ml UNSCH PRN IV PUSH 07/11/17 15:00 (Glucagon Inj) 1 mg UNSCH PRN OTHER 07/11/17 15:00 (VANCOMYCIN for oral use only) 250 mg QID PO 07/13/17 18:00 07/20/17 18:00 07/14/17 10:11 A/P Assessment and Plan 1. Acute Hypoxemic Respiratory Failure resolved/HCAP pseudomonal Aeruginosa Pneumonia/COPD with Exacerbation Extubated 07/06/17, continue Bronchodilator, Mucolytic, incentive spirometry. Steroids. 2. Atrial Fibrillation with RVR/Fluid Overload, - Cardioverted several times without success and amiodarone started for A. fib with RVR - Amio DCd 06/24 due to Liver enzyme elevation. Placed on on Cardizem infusion and Digoxin. very resistant afib and difficult to control. - On PO Cardizem 60 q6 and change digoxin to 125 mg to PO - IV Heparin discontinued due to HIT screen positive hematology consulted. Argatroban DCd 06/[address] Hurley SMILEY negative. On enoxaparin now - s/p Normal saline IV fluids 8L boluses on 06/18/17. Now off maintenance fluid - Scheduled Bumetanide 1 mg IV q12 - 2D Echo normal LV function 3. Status post Left Colectomy with Colorectal Anastomosis/Diverting Ileostomy/ Wedge resection of liver metastasis C Diff Enteritis/ileitis/transaminitis/Cholestasis, patient has Diagnosis of Metastatic Adenocarcinoma of the rectosigmoid Colon. Tolerating PO diet was on TPN off 07/09/17, PPIs by mouth, had Transaminitis , EGD 06/19. Evidence of esophagitis, and erythematous gastritis in the gastric body and gastric antrum, continue PO Vancomycin for C Diff, Dr. Geiger 06/22. Colonoscopy normal. Ileoscopy severe pseudomembranous ileitis, continue Alvimopam 12mg BID for Ileus. 4. Status post partial Resection of the left ureter with anastomosis and placement of double J stent, on Han cath and diuretics 5. Thrombocytopenia HIT ruled out, Argatroban started 06/24/17, DCd 06/26/[address] Hurley. According to Dr. Hurley elevated PTT secondary to decreased liver clearance of argatroban. Back on enoxaparin 6. Sepsis and Bandemia recommended by ID to Stop Cefepime 7. C Diff colitis on PO Vancomycin. 8. sacral ulcer Colon and rectal manpower development specialist manager following. consulted wound care, as per Doctor Geiger he will get Plastic Surgery for probable I and D of the sacral wound. 9. Left Upper extremity thrombosis, to continue Lovenox. PROPH: -Bilateral lower extremity SCDs. Currently on enoxaparin DVT dose, oral Protonix 40 mg daily Discharge Planning Once cleared by specialists. Romeo Chowdhury MD Jul 14, 2017 11:33
--- NOTE | 2017-07-14 16:22 | HHI.PR ---
Subjective Remarks Pt apparently seen by Gen Surgery for Decubitus. Plastic surgery consulted. Pt denied Rehab until decubitus is dealt with. Maybe can be skin grafted to expedite. Objective Vital Signs Date Time Temp Pulse Resp B/P (MAP) Pulse Ox O2 Delivery O2 Flow Rate FiO2 07/14/17 12:00 97.9 88 23 115/55 (75) 98 07/14/17 08:00 97.7 77 15 122/64 (83) 97 07/14/17 08:00 77 07/14/17 06:00 85 07/14/17 04:00 97.9 80 20 114/61 (78) 95 07/14/17 04:00 80 07/14/17 02:00 74 07/14/17 00:00 78 07/14/17 00:00 98.2 78 20 127/65 (85) 95 07/13/17 22:00 72 07/13/17 20:39 95 21 07/13/17 20:00 97.9 83 24 108/55 (72) 84 07/13/17 20:00 83 07/13/17 18:00 77 18 133/63 (86) 94 07/13/17 18:00 77 07/13/17 17:00 94 30 116/59 (78) 88 I/O 07/13/17 07/13/17 07/13/17 07/14/17 07/14/17 07/14/17 07:00 15:00 23:00 07:00 15:00 23:00 Intake Total 440 ml 100 ml 480 ml 240 ml Output Total 1000 ml 650 ml 800 ml Balance -560 ml 100 ml -170 ml -560 ml Intake Oral 240 ml 480 ml 240 ml IV Total 200 ml 100 ml Output Urine Total 850 ml 650 ml 800 ml Stool Total 150 ml Result Diagram: 07/14/1740707/14/17407 Objective Remarks VS-S Gen: Pt comfortable Abd: Soft. Flat. Wound healed. Stoma working.Stools thick Rectal: Open decubitus with some drained necrotic tissue. I&Os: OK Labs: Bilirubin and Alk phos continues to rise despite stopping TPN Assessment and Plan Assessment and Plan Decubitus-Plastics consulted Deconditioned-Not really a candidate for NHP. Needs Rehab. Cannot even get OOB at this time. Decubitus may benefit from some debridement and skin grafting Pureed foods OOB Will need inpatient rehab Will ask GI to bigg Mckeon and Alk Luca Flood MD Jul 14, 2017 16:22
--- NOTE | 2017-07-14 18:59 | RADRPT ---
EXAM DATE/TIME: 07/14/2017 16:45 [facility] COMPARISON: US ABDOMEN - LIVER, June 24, 2017, 16:38. INDICATIONS : Increased lab values. MEDICAL HISTORY : Hypercholesterolemia. Hypertension. Carcinoma, rectal. Sputum production. Dyspnea. Abdominal pain. Na usea/vomiting. C-diff. SURGICAL HISTORY : Left knee surgery. Gastrointestinal ostomy. Low anterior resection with low colorectal anastomosis. D iverting ileostomy. Resection of a segment of the left ureter with ureteral anastomosis. Double-J lidia nt placement. Chemotherapy. Radiation therapy. ENCOUNTER: Subsequent ACUITY: 1 day PAIN SCORE: 0/10 LOCATION: Bilateral upper quadrant MEASUREMENTS: LIVER: 13.4 cm length COMMON DUCT: 5 mm RIGHT KIDNEY: 10.0 x 4.9 x 5.1 cm SPLEEN: 9.3 cm length FINDINGS: LIVER: Normal echotexture without focal lesion or ductal dilatation. Small volume ascites. Hepatopedal flow. COMMON DUCT: No intraluminal mass or stone visualized. GALLBLADDER: Layering echogenic non-shadowing material within the gallbladder consistent with sludge. The gallblad indira wall is at the upper range of normal in terms of thickness measuring 3 mm. The gallbladder is not distended. PANCREAS: The visualized portions are within normal limits. RIGHT KIDNEY: No hydronephrosis, stone or mass. SPLEEN: No focal lesion. Bilateral pleural effusions. CONCLUSION: 1. Small volume ascites. 2. Bilateral pleural effusions. 3. Sludge within the gallbladder with a top normal thickness of the gallbladder wall. No sonographic evidence to suggest acute cholecystitis. Pierce Ospina Jr., MD on July 14, 2017 at 18:54 Board Certified Radiologist. This report was verified electronically.
[2017-07-14] MEDS: [UNRECOGNIZED DRUG - REMARK] PO SCH (21:12)
[2017-07-14] MEDS: ACETAMINOPHEN/HYDROcodone 325 MG/5 MG TAB PO PRN (21:54)
[2017-07-15] VITALS (7 sets, daily range): BP systolic 105–144; BP diastolic 57–81; PULSE 75–92; RESP 18–20; TEMP 95.2–99.4; O2SAT 94–97
[2017-07-15] MEDS: DILTIAZEM HCL 60 MG TAB PO SCH ×5 (00:29→22:26)
[2017-07-15 06:13] LABS: INDIRECT BILIRUBIN 1.4 MG/DL (0.0-0.8); TOTAL BILIRUBIN ADULT 6.8 MG/DL (0.2-1.0)
[2017-07-15] MEDS: INSULIN ASPART SUPPLEMENTAL SCALE SQ SCH ×4 (08:00→21:00)
[2017-07-15] MEDS: POTASSIUM CHLORIDE 25 MEQ EFFERVESCENT TAB PO SCH (09:31)
[2017-07-15] MEDS: DIGOXIN 0.125 MG TAB PO SCH (09:32)
[2017-07-15] MEDS: PANTOPRAZOLE SOD 40 MG DELAYED RELEASE TAB PO SCH (09:32)
[2017-07-15] MEDS: VANCOMYCIN 500 MG VIAL (FOR ORAL USE ONLY) PO SCH ×4 (09:32→22:01)
[2017-07-15] MEDS: ENOXAPARIN SODIUM 40 MG/0.4 ML SYRINGE SQ SCH (09:33)
[2017-07-15] MEDS: BUDESONIDE-FORMOTEROL 160/4.5 MCG INHALER INH SCH ×2 (09:34→22:23)
[2017-07-15] MEDS: COLLAGENASE OINT 30 GM TUBE TOPICAL SCH (09:34)
[2017-07-15] MEDS: BUMETANIDE INJ 1 MG/4 ML VIAL IV PUSH SCH ×2 (09:39→22:00)
--- NOTE | 2017-07-15 10:48 | HHI.GIFU ---
Subjective Remarks Pt is resting in bed. Has not had breakfast yet, but states he is about to order breakfast. Reports good appetite. Moderate amount of liquid stool in the ileostomy bag. Denies abdominal pain, nausea, vomiting. Exam revealed mild RUQ tenderness. (Laine Edmonds) Objective Vitals I&O Vital Signs Date Time Temp Pulse Resp B/P (MAP) Pulse Ox O2 Delivery O2 Flow Rate FiO2 07/15/17 08:00 95.2 75 18 118/70 (86) 96 07/15/17 04:00 79 07/15/17 04:00 98.0 79 18 113/60 (77) 97 07/15/17 00:00 81 07/15/17 00:00 98.1 81 18 105/81 (89) 95 07/14/17 22:00 80 07/14/17 20:06 96 07/14/17 20:00 85 07/14/17 20:00 98.1 85 19 115/68 (84) 94 07/14/17 16:00 77 07/14/17 16:00 97.9 85 19 119/68 (85) 93 07/14/17 12:00 97.9 88 23 115/55 (75) 98 07/14/17 12:00 77 I/O 07/14/17 07/14/17 07/14/17 07/15/17 07/15/17 07/15/17 07:00 15:00 23:00 07:00 15:00 23:00 Intake Total 240 ml Output Total 800 ml 900 ml Balance -560 ml -900 ml Intake Oral 240 ml Output Urine Total 800 ml 800 ml Stool Total 100 ml Laboratory Laboratory Tests Test 07/15/17 05:11 Total Bilirubin 6.8 Direct Bilirubin 5.4 Indirect Bilirubin 1.4 Aspartate Amino Transf (AST/SGOT) 61 Alanine Aminotransferase (ALT/SGPT) 103 Alkaline Phosphatase 844 Total Protein 6.2 Albumin 1.9 Date/Time Source Procedure Growth Status 07/02/17 18:54 Blood Peripheral Aerobic Blood Culture - Final NO GROWTH IN 5 DAYS Complete 07/02/17 18:54 Blood Peripheral Anaerobic Blood Culture - Final NO GROWTH IN 5 DAYS Complete 07/02/17 17:00 Sputum Endotracheal Gram Stain - Final Complete 07/02/17 17:00 Sputum Culture - Final Pseudomonas Aeruginosa Complete 07/02/17 15:45 Urine Clean Catch Urine Culture - Final Pseudomonas Aeruginosa Complete Imaging Last Impressions Liver Ultrasound 07/14/17 0000 Signed Impressions: Service Date/Time: July 16:45 - CONCLUSION: 1. Small volume ascites. 2. Bilateral pleural effusions. 3. Sludge within the gallbladder with a top normal thickness of the gallbladder wall. No sonographic evidence to suggest acute cholecystitis. Pierce Ospina Jr., MD Chest X-Ray 07/10/17 0600 Signed Impressions: Service Date/Time: Monday, July 10, 2017 04:39 - CONCLUSION: No significant change with persistent bilateral pulmonary parenchymal opacity with lower lung zone predominance likely worsening pulmonary edema and bilateral pleural effusions. Luis Armando Michel MD Abdomen X-Ray 07/06/17 0000 Signed Impressions: Service Date/Time: Thursday, July 06, 2017 13:44 - CONCLUSION: 1. Gaseous distention of multiple bowel loops. This has slightly improved. 2. Left-sided nephroureteral stent in good position. Sarwat Suarez MD Upper Extremity Ultrasound 06/23/17 0000 Signed Impressions: Service Date/Time: June 20:03 - CONCLUSION: Noncompressibility right cephalic vein and left basilic vein consistent with venous thrombosis Trav Hsieh MD Lower Extremity Ultrasound 06/23/17 0000 Signed Impressions: Service Date/Time: June 20:16 - CONCLUSION: Normal examination. No evidence DVT Trav Hsieh MD Chest CT 06/20/17 0000 Signed Impressions: Service Date/Time: Tuesday, June 20, 2017 07:42 - CONCLUSION: 1. Bilateral effusions and consolidative changes in both lung bases. Bao Lora MD Abdomen/Pelvis CT 06/20/17 0000 Signed Impressions: Service Date/Time: Tuesday, June 20, 2017 07:39 - CONCLUSION: 1. Dilated stomach and multiple dilated loops of small bowel, likely ileus. 2. No definite gastric volvulus. 3. Fat containing right inguinal hernia which also contains small portion of the urinary bladder and minimal fluid. 4. Left-sided nephroureteral stent in good position. 5. Bibasilar consolidation and small pleural effusions. Sarwat Suarez MD Physical Exam HEENT: Normocephalic; atraumatic; no jaundice. CHEST: Resp. even/unlabored, diminished CARDIAC: RRR ABDOMEN: Soft, mildly distended, mild RUQ tenderness on exam. ileostomy with moderate amount of liquid in ostomy bag. EXTREMITIES: BUE edema. PLASTER WHITTLER: Alert and oriented, generalized weakness (Laine Edmonds) Assessment and Plan Plan ASSESSMENT: - Reconsulted for Elevated LFTs. We have evaluated him in the past for elevated LFTs. (Peak on 06/25- T. Bili 1.7, AST 1300, ALT 386, ALK Phosph 239) . Likely related to shocked liver from hypotensive episodes over night. The AST/ALT have improved, but his total bilirubin has been slowly rising. T. Bili 6.9, AST 53, ALT 82, Alk PHosph 829. Previous workup- Liver US (06/24/17)---> Small volume ascites. Small right effusion. ASMA negative. Alpha 1 Antitrypsin 221. Hepatitis panel negative, LOIS neg, AMA < 20.0, Ceruloplasmin 74. AFP 3.3, Ferritin 5508. Iron saturation > 100%. He received one unit of blood on 06/18. Hfe gene negative C282Y, H63D undetected. It was thought that his previous elevation was multifactorial- related to infection, TPN, abx, and hypotension. Now, it seems to be more the bilirubin that is increasing. - Severe sepsis with lactic acidosis with concern for possible bowel ischemia, CDifficile. Improved. Oral Vanco. - CDiff. Oral vanco. - Respiratory failure, small pleural effusion. Currently on RA - NEIL. Improved - Anemia. S/P 1 unit prbc. labs from (06/13/17) 9.9/31.6. No CBC from this morning - Atrial fibrillation with RVR. Now sinus rhythm. Pt on Diltiazem. - Thrombocytopenia. S/P 1 unit platelet labs from (06/13/17) Plt 77. No CBC from this morning - Metastatic colon cancer. S/P lower anterior resection/coloanal anastomosis, resection and reanastomosis of the left ureter with ureteral anastomosis and double-J stent placement, wedge resection of hepatic metastasis, mobilization of the splenic flexure, and diverting closed loop ileostomy with Dr. Geiger and Dr. Pelayo on 05/26/17. Dr. Noel is his oncologist, but he has not seen him since his surgery 07/15/17 - LFTs are worsening, probably obstructive manner. Fractionated bilirubin revealed T bili 6.8, direct bilirubin 5.4, indirect bilirubin 1.4. Steroids discontinued yesterday due to possible cholestasis. No improvement noted in liver function this morning. AST-61 ALT-103 Alk phos-844. Liver US (06/13/17) ---> 1. small volume ascites 2. bilateral pleural effusions 3. sludge within the gallbladder with a top normal thickness of the gallbladder wall. No sonographic evidence to suggest acute cholecystitis. Would recommend MRCP at this time. Avoid hepatotoxins. PLAN: - LYLE - Continue to monitor LFT in the am - Will plan for MRCP today - Supportive care - Avoid hepatotoxins - Avoid hypotensive episodes - Further recommendations to follow based on results of above - Pt seen and examined by Dr. Guerra and myself and this note is written on his behalf (Laine Edmonds) Physician Comments Agree with the plan as above. Will check MRCP results. Further recommendations to follow. (Hedy Guerra MD) Laine Edmonds Jul 15, 2017 10:48 Hedy Guerra MD Jul 15, 2017 14:00
--- NOTE | 2017-07-15 11:44 | HHI.PR ---
Subjective Remarks Follow-up severe sepsis/bandemia/C. difficile colitis 07/15/17-patient seen and examined, afebrile, rectal tube in place with liquid stool. Only complains of right upper quadrant pain. Tolerating breakfast. Objective Vitals Vital Signs Date Time Temp Pulse Resp B/P (MAP) Pulse Ox O2 Delivery O2 Flow Rate FiO2 07/15/17 08:00 95.2 75 18 118/70 (86) 96 07/15/17 04:00 79 07/15/17 04:00 98.0 79 18 113/60 (77) 97 07/15/17 00:00 81 07/15/17 00:00 98.1 81 18 105/81 (89) 95 07/14/17 22:00 80 07/14/17 20:06 96 07/14/17 20:00 85 07/14/17 20:00 98.1 85 19 115/68 (84) 94 07/14/17 16:00 77 07/14/17 16:00 97.9 85 19 119/68 (85) 93 07/14/17 12:00 97.9 88 23 115/55 (75) 98 07/14/17 12:00 77 I/O 07/14/17 07/14/17 07/14/17 07/15/17 07/15/17 07/15/17 07:00 15:00 23:00 07:00 15:00 23:00 Intake Total 240 ml Output Total 800 ml 900 ml Balance -560 ml -900 ml Intake Oral 240 ml Output Urine Total 800 ml 800 ml Stool Total 100 ml Result Diagram: 07/14/17 0408 07/14/17 0408 Imaging Last Impressions Liver Ultrasound 07/14/17 0000 Signed Impressions: Service Date/Time: July 16:45 - CONCLUSION: 1. Small volume ascites. 2. Bilateral pleural effusions. 3. Sludge within the gallbladder with a top normal thickness of the gallbladder wall. No sonographic evidence to suggest acute cholecystitis. Pierce Ospina Jr., MD Chest X-Ray 07/10/17 0600 Signed Impressions: Service Date/Time: Monday, July 10, 2017 04:39 - CONCLUSION: No significant change with persistent bilateral pulmonary parenchymal opacity with lower lung zone predominance likely worsening pulmonary edema and bilateral pleural effusions. Luis Armando Michel MD Abdomen X-Ray 07/06/17 Signed Impressions: Service Date/Time: Thursday, July 06, 2017 13:44 - CONCLUSION: 1. Gaseous distention of multiple bowel loops. This has slightly improved. 2. Left-sided nephroureteral stent in good position. Sarwat Suarez MD Upper Extremity Ultrasound 06/23/17 Signed Impressions: Service Date/Time: June 20:03 - CONCLUSION: Noncompressibility right cephalic vein and left basilic vein consistent with venous thrombosis Trav Hsieh MD Lower Extremity Ultrasound 06/23/17 Signed Impressions: Service Date/Time: , June 23, 2017 20:16 - CONCLUSION: Normal examination. No evidence DVT Trav Hsieh MD Chest CT 06/20/17 Signed Impressions: Service Date/Time: Tuesday, June 20, 2017 07:42 - CONCLUSION: 1. Bilateral effusions and consolidative changes in both lung bases. Bao Lora MD Abdomen/Pelvis CT 06/20/17 Signed Impressions: Service Date/Time: Tuesday, June 20, 2017 07:39 - CONCLUSION: 1. Dilated stomach and multiple dilated loops of small bowel, likely ileus. 2. No definite gastric volvulus. 3. Fat containing right inguinal hernia which also contains small portion of the urinary bladder and minimal fluid. 4. Left-sided nephroureteral stent in good position. 5. Bibasilar consolidation and small pleural effusions. Sarwat Suarez MD Objective Remarks GENERAL: NAD SKIN: Warm and dry. Dressing over left buttock HEAD: Normocephalic. EYES: No scleral icterus. No injection or drainage. NECK: Supple, trachea midline. No JVD or lymphadenopathy. CARDIOVASCULAR: Regular rate and rhythm without murmurs, gallops, or rubs. RESPIRATORY: Breath sounds equal bilaterally. No accessory muscle use. GASTROINTESTINAL: Abdomen soft, non-tender, nondistended. MUSCULOSKELETAL: No cyanosis, or edema. BACK: Nontender without obvious deformity. No CVA tenderness. Date of Insertion: Jun 18, 2017 Side: Left Location: Internal A/P Problem List: (1) Tachycardia ICD Code: R00.0 - Tachycardia, unspecified (2) Hypertension ICD Code: I10 - Essential (primary) hypertension (3) Leukocytosis ICD Code: D72.829 - Elevated white blood cell count, unspecified (4) UTI (urinary tract infection) ICD Code: N39.0 - Urinary tract infection, site not specified (5) Acute kidney injury ICD Code: N17.9 - Acute kidney failure, unspecified (6) Cancer of rectum ICD Code: C20 - Malignant neoplasm of rectum (7) 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 Code: Z93.2 - Ileostomy status (8) Sepsis ICD Code: A41.9 - Sepsis, unspecified organism Assessment and Plan 67 year-old man with 1. Acute Hypoxemic Respiratory Failure resolved/HCAP pseudomonal Aeruginosa Pneumonia/COPD with Exacerbation Extubated 07/06/17, continue Bronchodilator, Mucolytic, incentive spirometry. Steroids. 2. Atrial Fibrillation with RVR/Fluid Overload, - Cardioverted several times without success and amiodarone started for A. fib with RVR - Amio DCd 06/24 due to Liver enzyme elevation. - On PO Cardizem 60 q6 and digoxin 125 mg to PO - IV Heparin discontinued due to HIT screen positive hematology consulted. Argatroban DCd 06/[address] Hurley SMILEY negative. Currently on enoxaparin - Scheduled Bumetanide 1 mg IV q12 - 2D Echo normal LV function 3. Status post Left Colectomy with Colorectal Anastomosis/Diverting Ileostomy/ Wedge resection of liver metastasis C Diff Enteritis/ileitis/transaminitis/Cholestasis, patient has Diagnosis of Metastatic Adenocarcinoma of the rectosigmoid Colon. continue PO Vancomycin for C Diff (end date 07/19/17), continue Alvimopam 12mg BID for Ileus. Also appreciate input from gastroenterology 4. Status post partial Resection of the left ureter with anastomosis and placement of double J stent, on Han cath and diuretics 5. Thrombocytopenia HIT ruled out, Argatroban started 06/24/17, DCd 06/26/[address] Hurley. According to Dr. Hurley elevated PTT secondary to decreased liver clearance of argatroban. Currently on enoxaparin 6. Sepsis and Bandemia Resolved Completed cefepime IV 07/13/17 7. C Diff colitis on PO Vancomycin until 07/19/17. 8. sacral ulcer Colon and rectal director of surgery following. Appreciate input from wound care, Dr Geiger Plastic Surgery consultation pending for for probable I and D of the sacral wound. 9. Left Upper extremity thrombosis: Lovenox. PROPH: Sarwat Quintanilla MD Jul 15, 2017 11:44
[2017-07-15] MEDS: ACETAMINOPHEN/HYDROcodone 325 MG/5 MG TAB PO PRN ×2 (11:48→18:03)
--- NOTE | 2017-07-15 16:24 | RADRPT ---
EXAM DATE/TIME: 07/15/2017 15:02 [facility] COMPARISON: ABDOMEN KUB ONLY, July 06, 2017, 13:44. INDICATIONS : Abdominal pain. MEDICAL HISTORY : Hypertension. rectal/colon cancer SURGICAL HISTORY : Appendectomy. Colon resection. kidney surgery ENCOUNTER: Subsequent ACUITY: 1 month PAIN SCORE: 3/10 LOCATION: abdomen TECHNIQUE: Multiplanar, multisequence magnetic resonance imaging of the abdomen was performed. High-resolution 3D dataset was utilized to reconstruct maximum-intensity projection (MIP) images. FINDINGS: INTRAHEPATIC BILE DUCTS: Within normal limits. No significant anatomical variant is present. EXTRAHEPATIC BILE DUCTS: The common bile duct measures 6 mm .No stone or filling defect is identified. GALLBLADDER: Is small and contracted, scarred by ascites without definite stone. LIVER: Small with moderate ascites. PANCREAS: Partially obscured by motion OTHER: Left renal stent. Small bilateral pleural effusions. CONCLUSION: 1. Ascites with small bilateral pleural effusions. 2. Small contracted gallbladder without definite stones 3. No definite common duct stone. 4. Pancreas obscured by motion. Alfredo Lora MD FACR on July 15, 2017 at 16:19 Board Certified Radiologist. This report was verified electronically.
--- NOTE | 2017-07-15 16:28 | MB ---
cc: EDY ESCALANTE M.D. DATE OF CONSULTATION: 07/15/2017 REASON FOR CONSULTATION: Decubitus ulcer and possible skin graft. REQUESTING PHYSICIAN: The patient is being seen at the request of Dr. Dong. HISTORY OF PRESENT ILLNESS: The patient is a 67-year-old male who was admitted on 06/17/2017. His problems on this admission include acute hypoxemic respiratory failure and atrial fibrillation. Patient has had a left colectomy, colorectal anastomosis, partial resection of the left urinary anastomosis. He has a history of sepsis, history of C. difficile colitis. The patient is also noted to have a sacral ulcer. He has had rectal surgery. Also had a left extremity thrombosis. It has been noted that the patient has a small decubitus ulcer. Consultation has been requested regarding evaluation and treatment of that ulcer and wound care has been following the patient. The question from Dr. Geiger is whether or not the patient is ready for a skin graft. PHYSICAL EXAMINATION: GENERAL: On examination, the patient is lying in bed. VITAL SIGNS: His temperature is 98, pulse 82, respirations 18, blood pressure 129/57 with a mean of 81 and his pulse oximetry is 96. NECK: Supple without masses. BACK: Examination of his sacral area reveals the wound is 5.9 cm x 4.3 cm by approximately 1.1 cm. There is no evidence of surrounding cellulitis. There is some slough in the base. There is no odor. IMPRESSION: The wound would benefit from a sacral debridement and placement of a wound VAC. This would certainly help healing and allow it to close faster. After reviewing the chart, it is noted that the patient was to have debridement of the wound by Dr. Buchanan but the patient's is refusing debridement. RECOMMENDATIONS: My recommendation would be to debride it surgically and place a wound VAC. MD NIALL Funez/DEMETRICE /4:11 PM /4:19 PM [facility]OSPITALJesse
--- NOTE | 2017-07-15 18:21 | HHI.PR ---
Subjective Remarks Pt apparently seen by Gen Surgery for Decubitus. Plastic surgery consulted. General surgery or plastics to debride and place wound vac for decub Objective Vital Signs Date Time Temp Pulse Resp B/P (MAP) Pulse Ox O2 Delivery O2 Flow Rate FiO2 07/15/17 16:00 99.4 92 18 144/66 (92) 94 07/15/17 12:00 98.0 82 18 129/57 (81) 96 07/15/17 08:00 95.2 75 18 118/70 (86) 96 07/15/17 04:00 79 07/15/17 04:00 98.0 79 18 113/60 (77) 97 07/15/17 00:00 81 07/15/17 00:00 98.1 81 18 105/81 (89) 95 07/14/17 22:00 80 07/14/17 20:06 96 07/14/17 20:00 85 07/14/17 20:00 98.1 85 19 115/68 (84) 94 I/O 07/14/17 07/14/17 07/14/17 07/15/17 07/15/17 07/15/17 07:00 15:00 23:00 07:00 15:00 23:00 Intake Total 240 ml 0 ml Output Total 800 ml 900 ml 1300 ml Balance -560 ml -900 ml -1300 ml Intake Oral 240 ml 0 ml Output Urine Total 800 ml 800 ml 1300 ml Stool Total 100 ml # Bowel Movements 0 Result Diagram: 07/14/1740707/14/17407 Objective Remarks VS-S Gen: Pt comfortable Abd: Soft. Flat. Wound healed. Stoma working.Stools thick . I&Os: OK Labs: Bilirubin and Alk phos. MRCP appears OK Assessment and Plan Assessment and Plan Decubitus-Plastics consulted Deconditioned-Not really a candidate for NHP. Needs Rehab. Cannot even get OOB at this time. Decubitus for debridement and wound vac by Gen surg or Plastics OOB Will need inpatient rehab Luca Geiger MD Jul 15, 2017 18:21
[2017-07-15] MEDS: VIIBRYD 40 MG PO SCH (22:14)
[2017-07-16] VITALS (8 sets, daily range): BP systolic 101–122; BP diastolic 55–67; PULSE 83–101; RESP 19–20; TEMP 97.4–99.4; O2SAT 95–98
[2017-07-16] MEDS: DILTIAZEM HCL 60 MG TAB PO SCH ×3 (06:57→17:56)
[2017-07-16] MEDS: INSULIN ASPART SUPPLEMENTAL SCALE SQ SCH ×4 (08:00→21:00)
[2017-07-16 08:16] LABS: INDIRECT BILIRUBIN 1.6 MG/DL (0.0-0.8)
[2017-07-16] MEDS: BUDESONIDE-FORMOTEROL 160/4.5 MCG INHALER INH SCH ×2 (09:00→21:00)
[2017-07-16] MEDS: COLLAGENASE OINT 30 GM TUBE TOPICAL SCH (09:00)
--- NOTE | 2017-07-16 09:17 | HHI.PR ---
Subjective Remarks Pt cannot order food himself. He needs assist to order and to eat. Will D/W staff... Also discussed decubitus care with and patient. He needs to be off back at all times. His does not object to any Surgeon to debride and place wound vac. Dr Godinez or Dr Dong or Plastic surgery. Objective Vital Signs Date Time Temp Pulse Resp B/P (MAP) Pulse Ox O2 Delivery O2 Flow Rate FiO2 07/16/17 08:24 98.3 96 19 112/62 (79) 95 07/16/17 04:00 99.4 86 20 107/56 (73) 95 07/16/17 00:05 98.3 83 20 101/63 (76) 96 07/15/17 20:00 98.4 78 20 116/67 (83) 95 07/15/17 19:45 76 07/15/17 16:00 99.4 92 18 144/66 (92) 94 07/15/17 12:00 98.0 82 18 129/57 (81) 96 I/O 07/15/17 07/15/17 07/15/17 07/16/17 07/16/17 07/16/17 07:00 15:00 23:00 07:00 15:00 23:00 Intake Total 0 ml 1440 ml Output Total 1300 ml 1125 ml Balance -1300 ml 315 ml Intake Oral 0 ml 1440 ml Output Urine Total 1300 ml 800 ml Stool Total 325 ml # Voids 1 # Bowel Movements 0 Result Diagram: 07/14/1740707/14/17407 Objective Remarks VS-S Gen: Pt comfortable, except tailbone pain from decubitus. Abd: Soft. Flat. Wound healed. Stoma working.Stools thick . I&Os: OK Labs: MRCP appears OK Assessment and Plan Assessment and Plan Decubitus-For debridement and wound vac Deconditioned-Not really a candidate for NHP. Needs Rehab. Cannot even get OOB at this time. Decubitus for debridement and wound vac by Gen surg or Plastics OOB. Must stay off Decubitus Will need inpatient rehab Needs assist in ordering food and eating Luca Geiger MD Jul 16, 2017 09:17
[2017-07-16] MEDS: PANTOPRAZOLE SOD 40 MG DELAYED RELEASE TAB PO SCH (10:52)
[2017-07-16] MEDS: BUMETANIDE INJ 1 MG/4 ML VIAL IV PUSH SCH ×2 (10:52→21:03)
[2017-07-16] MEDS: POTASSIUM CHLORIDE 25 MEQ EFFERVESCENT TAB PO SCH (10:52)
[2017-07-16] MEDS: DIGOXIN 0.125 MG TAB PO SCH (10:52)
[2017-07-16] MEDS: VANCOMYCIN 500 MG VIAL (FOR ORAL USE ONLY) PO SCH ×3 (10:54→21:00)
[2017-07-16] MEDS: ENOXAPARIN SODIUM 40 MG/0.4 ML SYRINGE SQ SCH (10:55)
--- NOTE | 2017-07-16 13:29 | HHI.GIFU ---
Subjective Remarks Patient is awake and resting in bed in no apparent distress. Tolerating diet. Moderate amount of liquid stool noted in ileostomy bad. Denies abdominal pain. No nausea or vomiting. (Negrita Acosta) Objective Vitals I&O Vital Signs Date Time Temp Pulse Resp B/P (MAP) Pulse Ox O2 Delivery O2 Flow Rate FiO2 07/16/17 12:12 97.4 93 19 106/55 (72) 96 07/16/17 08:24 98.3 96 19 112/62 (79) 95 07/16/17 04:00 99.4 86 20 107/56 (73) 95 07/16/17 00:05 98.3 83 20 101/63 (76) 96 07/15/17 20:00 98.4 78 20 116/67 (83) 95 07/15/17 19:45 76 07/15/17 16:00 99.4 92 18 144/66 (92) 94 I/O 07/15/17 07/15/17 07/15/17 07/16/17 07/16/17 07/16/17 07:00 15:00 23:00 07:00 15:00 23:00 Intake Total 0 ml 1440 ml Output Total 1300 ml 1125 ml Balance -1300 ml 315 ml Intake Oral 0 ml 1440 ml Output Urine Total 1300 ml 800 ml Stool Total 325 ml # Voids 1 # Bowel Movements 0 Laboratory Laboratory Tests Test 07/16/17 07:22 Total Bilirubin 7.0 Direct Bilirubin 5.4 Indirect Bilirubin 1.6 Aspartate Amino Transf (AST/SGOT) 47 Alanine Aminotransferase (ALT/SGPT) 87 Alkaline Phosphatase 769 Total Protein 5.9 Albumin 1.8 Date/Time Source Procedure Growth Status 07/02/17 18:54 Blood Peripheral Aerobic Blood Culture - Final NO GROWTH IN 5 DAYS Complete 07/02/17 18:54 Blood Peripheral Anaerobic Blood Culture - Final NO GROWTH IN 5 DAYS Complete 07/02/17 17:00 Sputum Endotracheal Gram Stain - Final Complete 07/02/17 17:00 Sputum Culture - Final Pseudomonas Aeruginosa Complete 07/02/17 15:45 Urine Clean Catch Urine Culture - Final Pseudomonas Aeruginosa Complete Imaging Last Impressions Cholangiopancreatography MRI 07/15/17 0000 Signed Impressions: Service Date/Time: Saturday, July 15, 2017 15:02 - CONCLUSION: 1. Ascites with small bilateral pleural effusions. 2. Small contracted gallbladder without definite stones 3. No definite common duct stone. 4. Pancreas obscured by motion. Alfredo Lora MD FACR Liver Ultrasound 07/14/17 Signed Impressions: Service Date/Time: July 16:45 - CONCLUSION: 1. Small volume ascites. 2. Bilateral pleural effusions. 3. Sludge within the gallbladder with a top normal thickness of the gallbladder wall. No sonographic evidence to suggest acute cholecystitis. Pierce Ospina Jr., MD Chest X-Ray 07/10/17 0600 Signed Impressions: Service Date/Time: Monday, July 10, 2017 04:39 - CONCLUSION: No significant change with persistent bilateral pulmonary parenchymal opacity with lower lung zone predominance likely worsening pulmonary edema and bilateral pleural effusions. Luis Armando Michel MD Abdomen X-Ray 07/06/17 Signed Impressions: Service Date/Time: Thursday, July 06, 2017 13:44 - CONCLUSION: 1. Gaseous distention of multiple bowel loops. This has slightly improved. 2. Left-sided nephroureteral stent in good position. Sarwat Suarez MD Upper Extremity Ultrasound 06/23/17 Signed Impressions: Service Date/Time: June 20:03 - CONCLUSION: Noncompressibility right cephalic vein and left basilic vein consistent with venous thrombosis Trav Hsieh MD Lower Extremity Ultrasound 06/23/17 Signed Impressions: Service Date/Time: June 20:16 - CONCLUSION: Normal examination. No evidence DVT Trav Hsieh MD Chest CT 06/20/17 Signed Impressions: Service Date/Time: Tuesday, June 20, 2017 07:42 - CONCLUSION: 1. Bilateral effusions and consolidative changes in both lung bases. Bao Lora MD Abdomen/Pelvis CT 06/20/17 Signed Impressions: Service Date/Time: Tuesday, June 20, 2017 07:39 - CONCLUSION: 1. Dilated stomach and multiple dilated loops of small bowel, likely ileus. 2. No definite gastric volvulus. 3. Fat containing right inguinal hernia which also contains small portion of the urinary bladder and minimal fluid. 4. Left-sided nephroureteral stent in good position. 5. Bibasilar consolidation and small pleural effusions. Sarwat Suarez MD Physical Exam HEENT: Normocephalic; atraumatic; no jaundice. CHEST: Resp. even/unlabored, diminished CARDIAC: RRR ABDOMEN: Soft, non distended, nontender. ileostomy with moderate amount of liquid in ostomy bag. 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 We have evaluated him in the past for elevated LFTs. (Peak on 06/25- T. Bili 1.7, AST 1300, ALT 386, ALK Phosph 239) . Likely related to shocked liver from hypotensive episodes over night. The AST/ALT have improved, but his total bilirubin has been slowly rising. T. Bili 6.9, AST 53, ALT 82, Alk PHosph 829 (07/14) Previous workup- Liver US (06/24/17)---> Small volume ascites. Small right effusion. ASMA negative. Alpha 1 Antitrypsin 221. Hepatitis panel negative, LOIS neg, AMA < 20.0, Ceruloplasmin 74. AFP 3.3, Ferritin 5508. Iron saturation > 100%. He received one unit of blood on 06/18. Hfe gene negative C282Y, H63D undetected. It was thought that his previous elevation was multifactorial- related to infection, TPN, abx, and hypotension. Bilirubin slowing trending up. LFTs are improving today, AST 47, ALT 87, ALK PHOS 769. Fractionated bilirubin revealed T bili 7, direct bilirubin 5.4 , indirect bilirubin 1.6. Steroids discontinued on 06/13 due to possible cholestasis. Liver US (06/13/17) --->1. small volume ascites 2. bilateral pleural effusions 3. sludge within the gallbladder with a top normal thickness of the gallbladder wall. No sonographic evidence to suggest acute cholecystitis. MRCP 07/15/17-- 1. Ascites with small bilateral pleural effusions. 2. Small contracted gallbladder without definite stones 3. No definite common duct stone. 4. Pancreas obscured by motion. Patient denies abdominal pain. - Severe sepsis with lactic acidosis with concern for possible bowel ischemia, CDifficile. Improved. Oral Vanco. - CDiff. Oral vanco. - Respiratory failure, small pleural effusion. Currently on RA - NEIL. Improved - Anemia. S/P 1 unit prbc. labs from (07/14/17) 9.9/31.6. - Atrial fibrillation with RVR. Now sinus rhythm. Pt on Diltiazem. - Thrombocytopenia. S/P 1 unit platelet labs from (07/14/17) Plt 77. No CBC from this morning - Metastatic colon cancer. S/P lower anterior resection/coloanal anastomosis, resection and reanastomosis of the left ureter with ureteral anastomosis and double-J stent placement, wedge resection of hepatic metastasis, mobilization of the splenic flexure, and diverting closed loop ileostomy with Dr. Geiger and Dr. Pelayo on 05/26/17. Dr. Noel is his oncologist, but he has not seen him since his surgery PLAN: - LYLE - Monitor LFTs - Supportive care - Avoid hepatotoxins - Avoid hypotensive episodes - Further recommendations to follow based on results of above Patient seen and examined by Dr. Guerra and myself and this note is written on his behalf (Negrita Acosta) Physician Comments Agree with the plan as above. Will follow up with you. (Hedy Guerra MD) Negrita Acosta Jul 16, 2017 13:29 Hedy Guerra MD Jul 16, 2017 23:03
--- NOTE | 2017-07-16 15:02 | PD.PLAS.PN ---
Subjective Remarks Patient has no new complaints. Vital Signs Date Time Temp Pulse Resp B/P (MAP) Pulse Ox O2 Delivery O2 Flow Rate FiO2 07/16/17 12:12 97.4 93 19 106/55 (72) 96 07/16/17 08:24 98.3 96 19 112/62 (79) 95 07/16/17 04:00 99.4 86 20 107/56 (73) 95 07/16/17 00:05 98.3 83 20 101/63 (76) 96 07/15/17 20:00 98.4 78 20 116/67 (83) 95 07/15/17 19:45 76 07/15/17 16:00 99.4 92 18 144/66 (92) 94 I/O 07/15/17 07/15/17 07/15/17 07/16/17 07/16/17 07/16/17 07:00 15:00 23:00 07:00 15:00 23:00 Intake Total 0 ml 1440 ml Output Total 1300 ml 1125 ml Balance -1300 ml 315 ml Intake Oral 0 ml 1440 ml Output Urine Total 1300 ml 800 ml Stool Total 325 ml # Voids 1 # Bowel Movements 0 Laboratory Tests Test 07/16/17 07:22 Total Bilirubin 7.0 Direct Bilirubin 5.4 Indirect Bilirubin 1.6 Aspartate Amino Transf (AST/SGOT) 47 Alanine Aminotransferase (ALT/SGPT) 87 Alkaline Phosphatase 769 Total Protein 5.9 Albumin 1.8 Date/Time Source Procedure Growth Status 07/02/17 18:54 Blood Peripheral Aerobic Blood Culture - Final NO GROWTH IN 5 DAYS Complete 07/02/17 18:54 Blood Peripheral Anaerobic Blood Culture - Final NO GROWTH IN 5 DAYS Complete 07/02/17 17:00 Sputum Endotracheal Gram Stain - Final Complete 07/02/17 17:00 Sputum Culture - Final Pseudomonas Aeruginosa Complete 07/02/17 15:45 Urine Clean Catch Urine Culture - Final Pseudomonas Aeruginosa Complete Result Diagram: 07/14/1740707/14/17407 Exam Findings The sacral wound is again examined. There is significant necrotic material. There is no evidence of surrounding infection. Plan Impression: The patient has a sacral decubitus ulcer. Plan: After spending approximately 30 minutes discussing the patient's situation and my plan with the patient and his , we have decided to go ahead with the debridement of the sacral wound and placement of a wound VAC. They understand and accept the risks and complications of the surgery as well as the possible benefits to his recovery. Surgery is scheduled for July in the morning. Supriya Oleary MD Jul 16, 2017 15:02
--- NOTE | 2017-07-16 17:09 | HHI.PR ---
Subjective Remarks Decreasing diarrhea. No fevers overnight. Patient has no acute complaints. Bilirubin has slight upper trend. LFTs have a downward trend. Objective Vital Signs Date Time Temp Pulse Resp B/P (MAP) Pulse Ox O2 Delivery O2 Flow Rate FiO2 07/16/17 16:19 99.0 101 20 117/67 (84) 95 07/16/17 12:12 97.4 93 19 106/55 (72) 96 07/16/17 08:24 98.3 96 19 112/62 (79) 95 07/16/17 08:00 96 07/16/17 04:00 99.4 86 20 107/56 (73) 95 07/16/17 00:05 98.3 83 20 101/63 (76) 96 07/15/17 20:00 98.4 78 20 116/67 (83) 95 07/15/17 19:45 76 I/O 07/15/17 07/15/17 07/15/17 07/16/17 07/16/17 07/16/17 07:00 15:00 23:00 07:00 15:00 23:00 Intake Total 0 ml 1440 ml Output Total 1300 ml 1125 ml Balance -1300 ml 315 ml Intake Oral 0 ml 1440 ml Output Urine Total 1300 ml 800 ml Stool Total 325 ml # Voids 1 # Bowel Movements 0 Result Diagram: 07/14/1740707/14/17407 Objective Remarks GENERAL: NAD, A&Ox3 HEAD: Normocephalic. NECK: Supple, trachea midline. No lymphadenopathy. EYES: No scleral icterus. No injection or drainage. CARDIOVASCULAR: Regular rate and rhythm without murmurs, gallops, or rubs. RESPIRATORY: Breath sounds equal bilaterally. No accessory muscle use. GASTROINTESTINAL: Abdomen soft, non-tender, nondistended. MUSCULOSKELETAL: No cyanosis, or edema. Sacral ulcer is bandaged SKIN: Warm and dry. NEURO: No focal neurological deficitis. A/P Problem List: (1) Sacral ulcer ICD Code: L98.429 - Non-pressure chronic ulcer of back with unspecified severity (2) 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 Code: Z93.2 - Ileostomy status (3) Cancer of rectum ICD Code: C20 - Malignant neoplasm of rectum Assessment and Plan Assessment and Plan 67 year-old male admitted with respiratory failure secondary to pneumonia and COPD exacerbation. Prolonged time on vent, patient now has decubitus ulcer. Labs reviewed. Continue to monitor bilirubin levels and LFTs. Labs ordered. Acute respiratory failure Pseudomonal pneumonia COPD with exacerbation Improved Patient extubated 07/06/17 Continue bronchodilators Continue inhaled steroids Continue to mucolytic's Continue incentive spirometry Off systemic steroids A. fib with RVR Improved Follow on telemetry Continue by mouth Cardizem Continue by mouth digoxin Continue Lovenox Continue diuresis Status post left colectomy Colorectal cancer Diverting ileostomy Wedge resection of liver metastases Status post resection of the left ureter Transaminitis Ileus continue Alvimopam 12mg BID for Ileus Continue Han catheter Continue diuretics C. difficile enteritis Continue by mouth vancomycin Follow for clinical improvement Sacral ulcer Colon rectal surgery following Plastic surgery consulted Continue wound care Left upper extremity thrombosis DVT prophylaxis Lovenox Bao Stafford MD Jul 16, 2017 17:09
[2017-07-16] MEDS: ACETAMINOPHEN/HYDROcodone 325 MG/5 MG TAB PO PRN (21:00)
[2017-07-16] MEDS: VIIBRYD 40 MG PO SCH (21:21)
[2017-07-17] VITALS (7 sets, daily range): BP systolic 90–115; BP diastolic 53–66; PULSE 76–93; RESP 18–20; TEMP 97.5–99; O2SAT 95–100
[2017-07-17] MEDS: DILTIAZEM HCL 60 MG TAB PO SCH ×4 (00:55→18:36)
[2017-07-17] MEDS ORDERED: CHLORHEXIDINE GLUCONATE 2 % 1 PACK (2 CLOTHS) TOPICAL PRN (04:00)
[2017-07-17] MEDS ORDERED: POVIDONE IODINE 5% (ANTISEPSIS KIT) 4 APPLICATIONS EACH NARE PRN (04:00)
[2017-07-17] MEDS ORDERED: SODIUM CHLORID 0.9% 500 ML IV PRN (04:00)
[2017-07-17] MEDS ORDERED: LACTATED RINGER'S 1000 ML IV PRN (04:00)
[2017-07-17] MEDS: INSULIN ASPART SUPPLEMENTAL SCALE SQ SCH ×4 (08:00→20:17)
[2017-07-17 08:08] LABS: AUTOMATED NEUTROPHIL # 12.5 TH/MM3 (1.8-7.7); BASOPHIL # 0.1 TH/MM3 (0-0.2); EOSINOPHIL % 0.2 % (0.0-4.0); HEMATOCRIT 33.8 % (39.0-51.0); LYMPH % 4.4 % (9.0-44.0); LYMPHOCYTE # 0.6 TH/MM3 (1.0-4.8); MEAN CELL VOLUME 92.8 FL (80.0-100.0); MEAN CORPUSCULAR HEMOGLOBIN 28.9 PG (27.0-34.0); MEAN CORPUSCULAR HGB CONC 31.1 % (32.0-36.0); MONO % 8.7 % (0.0-8.0); NEUT % 85.7 % (16.0-70.0); PLATELET COUNT 80 TH/MM3 (150-450); RED BLOOD COUNT 3.64 MIL/MM3 (4.50-5.90); RED CELL DISTRIBUTION WIDTH 21.4 % (11.6-17.2); WHITE BLOOD COUNT 14.6 TH/MM3 (4.0-11.0)
[2017-07-17 08:10] LABS: HEMO FLAGS AUTO DIFF
[2017-07-17 08:38] LABS: ALT (GPT) 85 U/L (12-78); ANION GAP 10 MEQ/L (5-15); AST (GOT) 48 U/L (15-37); BICARBONATE 26.3 MEQ/L (21.0-32.0); BLOOD UREA NITROGEN 26 MG/DL (7-18); CHLORIDE 102 MEQ/L (98-107); GLOMERULAR FILTRATION RATE 100 ML/MIN (>89); SODIUM (NA) 138 MEQ/L (136-145)
[2017-07-17 08:40] LABS: ALKALINE PHOSPHATASE 845 U/L (45-117); TOTAL BILIRUBIN ADULT 6.4 MG/DL (0.2-1.0)
[2017-07-17 08:58] LABS: BANDS 5 % (0-6); HYPERSEGMENTED POLYS 1+ (NORMAL); METAMYELOCYTES 1 % (0-1); MYELOCYTES 1 % (0-0); POLYS (SEG NEUTROPHILS) 82 % (16-70); WBC DIFF SAMPLE 100
[2017-07-17 08:59] LABS: PLATELET ESTIMATE SMEAR LOW (NORMAL); PLATELET MORPHOLOGY NORMAL (NORMAL); SCAN/DIFF FINAL DIFF MANUAL; TARGET CELLS 1+ (NORMAL)
[2017-07-17] MEDS: ENOXAPARIN SODIUM 40 MG/0.4 ML SYRINGE SQ SCH (09:00)
[2017-07-17] MEDS: VANCOMYCIN 500 MG VIAL (FOR ORAL USE ONLY) PO SCH ×4 (09:00→20:16)
[2017-07-17] MEDS: BUDESONIDE-FORMOTEROL 160/4.5 MCG INHALER INH SCH ×2 (09:00→20:17)
[2017-07-17] MEDS: COLLAGENASE OINT 30 GM TUBE TOPICAL SCH (09:00)
--- NOTE | 2017-07-17 11:13 | HHI.PR ---
Immediate Post Op Note Procedure Date: Jul 17, 2017 Pre Op Diagnosis: (1) Sacral ulcer Post Op Diagnosis: (1) Sacral ulcer Surgeon: Supriya Oleary Plastic Surgery Technician(s): None. Procedure: Excisional debridement of sacral wound with insertion of wound Vac. Estimated blood loss: 50 ml Anesthesia: General Drains: Other (Wound Vac) Patient to: PACU Patient Condition: Good Date/Time of Procedure: SEE SURGICAL CARE RECORD Supriya Oleary MD Jul 17, 2017 11:13
[2017-07-17] MEDS ORDERED: *morphine SULFATE 8 MG/ML PERIprocedure ONLY ONE (11:45)
[2017-07-17] MEDS ORDERED: ONDANSETRON HCL 4 MG/2 ML VIAL IV PUSH ONE (12:00)
[2017-07-17] MEDS ORDERED: PROPOFOL 200 MG/20 ML AMP IV ONE (12:00)
[2017-07-17] MEDS ORDERED: ROCURONIUM INJ 50 MG/5 ML SYRINGE IV PUSH ONE (12:00)
[2017-07-17] MEDS ORDERED: DO NOT ADM ANY ANTICOAGULANT DRUGS PRN (12:00)
[2017-07-17] MEDS ORDERED: LIDOCAINE HCL 1% PF 5 ML AMPULE OTHER ONE (12:00)
[2017-07-17] MEDS ORDERED: GLYCOPYRROLATE 1 MG/5 ML SYRINGE IV PUSH ONE (12:00)
[2017-07-17] MEDS ORDERED: NEOSTIGMINE 3 MG/3 ML SYR IV ONE (12:00)
[2017-07-17] MEDS ORDERED: PHENYLEPH/NS 1000 MCG/10 ML SYR IV ONE (12:00)
--- NOTE | 2017-07-17 12:50 | MP ---
cc: EDY ESCALANTE M.D. DATE OF SURGERY: 07/17/2017 PREOPERATIVE DIAGNOSIS: Sacral decubitus ulcer. POSTOPERATIVE DIAGNOSIS Sacral decubitus ulcer. PROCEDURE 1. Excision sacral decubitus ulcer including skin, subcutaneous tissue, bone and muscle. 2. Placement of wound Vac ANESTHESIA General SURGEON Edy Escalante MD INDICATIONS 67-year-old male with a decubitus ulcer with necrotic material. FINDINGS At the completion of the procedure the necrotic material had been removed. The prominent portion of the sacrum debrided. A small wound Vac was placed to the lateral bridge. Operative time was approximately 34 minutes DESCRIPTION OF PROCEDURE: The patient was seen preoperatively. He was taken to the operating room, placed in a prone position. The sacral area was prepped with Betadine and draped in usual sterile fashion. Some of the necrotic material was removed sharply with a scissor. The wound itself measured approximately 6 cm in diameter. There was some tunneling superiorly for approximately 1-2 cm. Versajet was used at #5 setting to debride the skin and subcutaneous tissue, muscle and rongeur was used to debris the bone. Once all the visual necrotic material had been removed, the vessels were cauterized with bipolar cautery. The wound was copiously irrigated with saline. Once there is no evidence of any active bleeding, the area was cleansed of Betadine and blood. Mastisol was applied and the small wound Vac was placed into the wound after shaping the black foam. A bridge was created for lateral placement. It was covered in plastic and the port was applied and there was excellent suction and no evidence of any leak. The patient was then placed back into a supine position and taken from the operating room to the recovery room in satisfactory condition having tolerated the procedure well. Postoperative instructions include changing the Vac three times a day. Edy Escalante MD [facility] /11:24 AM /12:47 PM
--- NOTE | 2017-07-17 14:09 | HHI.PR ---
Subjective Remarks Seen status post surgical placement of wound VAC. Patient doing well postop. Lethargy is present. Objective Vital Signs Date Time Temp Pulse Resp B/P (MAP) Pulse Ox O2 Delivery O2 Flow Rate FiO2 07/17/17 12:30 97.8 83 19 94/55 (68) 99 07/17/17 12:00 78 16 109/60 (76) 100 Nasal Cannula 2 07/17/17 11:45 78 16 121/68 (85) 100 Nasal Cannula 2 07/17/17 11:30 80 16 114/69 (84) 100 Nasal Cannula 2 07/17/17 11:15 98.5 94 16 102/61 (75) 97 Nasal Cannula 2 07/17/17 08:06 99.0 87 20 115/66 (82) 97 07/17/17 04:00 97.6 86 19 103/58 (73) 98 07/17/17 00:00 98.1 93 20 110/58 (75) 95 07/16/17 22:03 18 07/16/17 20:06 91 07/16/17 20:00 98.4 88 19 122/66 (84) 98 07/16/17 16:19 99.0 101 20 117/67 (84) 95 I/O 07/16/17 07/16/17 07/16/17 07/17/17 07/17/17 07/17/17 07:00 15:00 23:00 07:00 15:00 23:00 Intake Total 1440 ml 600 ml 480 ml 500 ml Output Total 1125 ml 800 ml 990 ml 20 ml Balance 315 ml -200 ml -510 ml 480 ml Intake Oral 1440 ml 600 ml 480 ml Other 500 ml Output Urine Total 800 ml 800 ml 850 ml Stool Total 325 ml 140 ml Estimated Blood Loss 20 ml # Voids 1 # Bowel Movements 0 Result Diagram: 07/17/1765707/17/1758 Objective Remarks GENERAL: NAD, A&Ox3 HEAD: Normocephalic. NECK: Supple, trachea midline. No lymphadenopathy. EYES: No scleral icterus. No injection or drainage. CARDIOVASCULAR: Regular rate and rhythm without murmurs, gallops, or rubs. RESPIRATORY: Breath sounds equal bilaterally. No accessory muscle use. GASTROINTESTINAL: Abdomen soft, non-tender, nondistended. MUSCULOSKELETAL: No cyanosis, or edema. Sacral ulcer has wound VAC in place. SKIN: Warm and dry. NEURO: No focal neurological deficitis. A/P Problem List: (1) Sacral ulcer ICD Code: L98.429 - Non-pressure chronic ulcer of back with unspecified severity (2) 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 Code: Z93.2 - Ileostomy status (3) Cancer of rectum ICD Code: C20 - Malignant neoplasm of rectum Assessment and Plan Assessment and Plan 67 year-old male admitted with respiratory failure secondary to pneumonia and COPD exacerbation. Prolonged time on vent, patient now has decubitus ulcer. Status post wound VAC placement today. Doing well postop. Plan to increase physical therapy and seek rehabilitation placement. Labs reviewed. Continue to monitor bilirubin levels and LFTs. Labs ordered for further monitoring. Acute respiratory failure Pseudomonal pneumonia COPD with exacerbation Improved Patient extubated 07/06/17 Continue bronchodilators Continue inhaled steroids Continue to mucolytic's Continue incentive spirometry Off systemic steroids A. fib with RVR Improved Follow on telemetry Continue by mouth Cardizem Continue by mouth digoxin Continue Lovenox Continue diuresis Status post left colectomy Colorectal cancer Diverting ileostomy Wedge resection of liver metastases Status post resection of the left ureter Transaminitis Ileus continue Alvimopam 12mg BID for Ileus Continue Han catheter Continue diuretics C. difficile enteritis Continue by mouth vancomycin Follow for clinical improvement Sacral ulcer Colon rectal surgery following Plastic surgery consulted Continue wound care Left upper extremity thrombosis DVT prophylaxis Bao Newell MD Jul 17, 2017 14:09
[2017-07-17] MEDS: POTASSIUM CHLORIDE 25 MEQ EFFERVESCENT TAB PO SCH (14:13)
[2017-07-17] MEDS: PANTOPRAZOLE SOD 40 MG DELAYED RELEASE TAB PO SCH (14:14)
[2017-07-17] MEDS: DIGOXIN 0.125 MG TAB PO SCH (14:14)
--- NOTE | 2017-07-17 14:18 | HHI.PR ---
Subjective Remarks Pt s/p debridement and wound vac placement this AM Objective Vital Signs Date Time Temp Pulse Resp B/P (MAP) Pulse Ox O2 Delivery O2 Flow Rate FiO2 07/17/17 12:30 97.8 83 19 94/55 (68) 99 07/17/17 12:00 78 16 109/60 (76) 100 Nasal Cannula 2 07/17/17 11:45 78 16 121/68 (85) 100 Nasal Cannula 2 07/17/17 11:30 80 16 114/69 (84) 100 Nasal Cannula 2 07/17/17 11:15 98.5 94 16 102/61 (75) 97 Nasal Cannula 2 07/17/17 08:06 99.0 87 20 115/66 (82) 97 07/17/17 04:00 97.6 86 19 103/58 (73) 98 07/17/17 00:00 98.1 93 20 110/58 (75) 95 07/16/17 22:03 18 07/16/17 20:06 91 07/16/17 20:00 98.4 88 19 122/66 (84) 98 07/16/17 16:19 99.0 101 20 117/67 (84) 95 I/O 07/16/17 07/16/17 07/16/17 07/17/17 07/17/17 07/17/17 07:00 15:00 23:00 07:00 15:00 23:00 Intake Total 1440 ml 600 ml 480 ml 500 ml Output Total 1125 ml 800 ml 990 ml 20 ml Balance 315 ml -200 ml -510 ml 480 ml Intake Oral 1440 ml 600 ml 480 ml Other 500 ml Output Urine Total 800 ml 800 ml 850 ml Stool Total 325 ml 140 ml Estimated Blood Loss 20 ml # Voids 1 # Bowel Movements 0 Result Diagram: 07/17/1765707/17/1758 Objective Remarks VS-S Abd: Soft. Flat. Wound healed. Stoma working.Stools thick . I&Os: OK Labs: Bili down some. Alk Phos high Assessment and Plan Assessment and Plan Decubitus-Debridement and wound vac placed today Deconditioned-Not really a candidate for NHP. Needs Rehab. Cannot even get OOB at this time. OOB. Will need inpatient rehab Needs assist in ordering food and eating when not present To Rehab anytime when OK with all consultants Luca Geiger MD Jul 17, 2017 14:18
[2017-07-17] MEDS: ACETAMINOPHEN/HYDROcodone 325 MG/5 MG TAB PO PRN (14:22)
[2017-07-17] MEDS: VIIBRYD 40 MG PO SCH (20:17)
[2017-07-18] VITALS: BP 106/55; PULSE 90; RESP 18; TEMP 99.5; O2SAT 100
[2017-07-18] MEDS: DILTIAZEM HCL 60 MG TAB PO SCH ×5 (00:15→23:59)
[2017-07-18 04:00] VITALS: BP 96/51; PULSE 114; RESP 20; TEMP 100.7; O2SAT 99
[2017-07-18] MEDS: ACETAMINOPHEN/HYDROcodone 325 MG/5 MG TAB PO PRN ×2 (05:07→10:34)
[2017-07-18 08:00] VITALS: BP 95/51; PULSE 90; RESP 18; TEMP 99.4; O2SAT 97
[2017-07-18] MEDS ORDERED: POTASSIUM CHLORIDE 20 MEQ PWD PACKET PO ONE (08:00)
[2017-07-18] MEDS: INSULIN ASPART SUPPLEMENTAL SCALE SQ SCH ×4 (08:00→20:15)
[2017-07-18 08:13] LABS: AUTOMATED NEUTROPHIL # 39.8 TH/MM3 (1.8-7.7); BASOPHIL # 0.2 TH/MM3 (0-0.2); BASOPHIL % 0.4 % (0.0-2.0); HEMATOCRIT 28.1 % (39.0-51.0); LYMPH % 0.5 % (9.0-44.0); LYMPHOCYTE # 0.2 TH/MM3 (1.0-4.8); MEAN CELL VOLUME 94.4 FL (80.0-100.0); MEAN CORPUSCULAR HEMOGLOBIN 29.7 PG (27.0-34.0); MEAN CORPUSCULAR HGB CONC 31.4 % (32.0-36.0); NEUT % 94.1 % (16.0-70.0); PLATELET COUNT 74 TH/MM3 (150-450); RED BLOOD COUNT 2.98 MIL/MM3 (4.50-5.90); RED CELL DISTRIBUTION WIDTH 21.8 % (11.6-17.2); WHITE BLOOD COUNT 42.3 TH/MM3 (4.0-11.0)
[2017-07-18 08:36] LABS: BICARBONATE 23.4 MEQ/L (21.0-32.0); CALCIUM-PROTEIN CORRECTED 8.4 MG/DL (8.5-10.1); POTASSIUM 3.2 MEQ/L (3.5-5.1); TOTAL BILIRUBIN ADULT 6.4 MG/DL (0.2-1.0)
[2017-07-18 08:40] LABS: HEMO FLAGS AUTO DIFF
[2017-07-18] MEDS: COLLAGENASE OINT 30 GM TUBE TOPICAL SCH (09:00)
[2017-07-18 10:29] LABS: NEUTROPHIL # MANUAL DIFF 38.9 TH/MM3 (1.8-7.7); PLATELET ESTIMATE SMEAR LOW (NORMAL); POLYS (SEG NEUTROPHILS) 92 % (16-70); SCAN/DIFF FINAL DIFF MANUAL; WBC DIFF SAMPLE 100
[2017-07-18] MEDS: VANCOMYCIN 500 MG VIAL (FOR ORAL USE ONLY) PO SCH ×4 (10:29→20:02)
[2017-07-18] MEDS: ENOXAPARIN SODIUM 40 MG/0.4 ML SYRINGE SQ SCH (10:29)
[2017-07-18 10:30] LABS: PLATELET MORPHOLOGY ENLARGED (NORMAL)
[2017-07-18] MEDS: POTASSIUM CHLORIDE 25 MEQ EFFERVESCENT TAB PO SCH (10:32)
[2017-07-18] MEDS: PANTOPRAZOLE SOD 40 MG DELAYED RELEASE TAB PO SCH (10:33)
[2017-07-18] MEDS: DIGOXIN 0.125 MG TAB PO SCH (10:33)
[2017-07-18] MEDS: BUDESONIDE-FORMOTEROL 160/4.5 MCG INHALER INH SCH ×2 (10:37→20:03)
--- NOTE | 2017-07-18 11:33 | HHI.GIFU ---
Subjective Remarks Resting in bed. Feels weak. No n/v. Tolerating diet. Stool with more consistency. (Tami Sanderson) Objective Vitals I&O Vital Signs Date Time Temp Pulse Resp B/P (MAP) Pulse Ox O2 Delivery O2 Flow Rate FiO2 07/18/17 08:00 99.4 90 18 95/51 (66) 97 07/18/17 06:12 18 07/18/17 04:00 100.7 114 20 96/51 (66) 99 07/18/17 00:00 99.5 90 18 106/55 (72) 100 07/18/17 00:00 100 Nasal Cannula 2.00 07/17/17 20:01 76 07/17/17 20:00 97.5 78 18 95/53 (67) 100 07/17/17 16:06 97.7 84 19 90/54 (66) 99 07/17/17 15:22 18 07/17/17 12:30 97.8 83 19 94/55 (68) 99 07/17/17 12:00 78 16 109/60 (76) 100 Nasal Cannula 2 07/17/17 11:45 78 16 121/68 (85) 100 Nasal Cannula 2 07/17/17 11:30 80 16 114/69 (84) 100 Nasal Cannula 2 I/O 07/17/17 07/17/17 07/17/17 07/18/17 07/18/17 07/18/17 07:00 15:00 23:00 07:00 15:00 23:00 Intake Total 480 ml 500 ml 360 ml 360 ml Output Total 990 ml 20 ml 130 ml 650 ml Balance -510 ml 480 ml 230 ml -290 ml Intake Oral 480 ml 360 ml 360 ml Other 500 ml Output Urine Total 850 ml 100 ml 350 ml Stool Total 140 ml 30 ml 300 ml Estimated Blood Loss 20 ml # Voids 0 # Bowel Movements 1 0 Laboratory Laboratory Tests Test 07/18/17 06:25 White Blood Count 42.3 Red Blood Count 2.98 Hemoglobin 8.8 Hematocrit 28.1 Mean Corpuscular Volume 94.4 Mean Corpuscular Hemoglobin 29.7 Mean Corpuscular Hemoglobin Concent 31.4 Red Cell Distribution Width 21.8 Platelet Count 74 Mean Platelet Volume 11.3 Neutrophils (%) (Auto) 94.1 Lymphocytes (%) (Auto) 0.5 Monocytes (%) (Auto) 5.0 Eosinophils (%) (Auto) 0.0 Basophils (%) (Auto) 0.4 Neutrophils # (Auto) 39.8 Lymphocytes # (Auto) 0.2 Monocytes # (Auto) 2.1 Eosinophils # (Auto) 0.0 Basophils # (Auto) 0.2 CBC Comment AUTO DIFF Differential Total Cells Counted 100 Neutrophils % (Manual) 92 Lymphocytes % 2 Monocytes % 6 Neutrophils # (Manual) 38.9 Differential Comment FINAL DIFF MANUAL Platelet Estimate LOW Platelet Morphology Comment ENLARGED Blood Urea Nitrogen 29 Creatinine 1.19 Random Glucose 153 Total Protein 5.3 Albumin 1.6 Calcium Level 7.4 Alkaline Phosphatase 621 Aspartate Amino Transf (AST/SGOT) 32 Alanine Aminotransferase (ALT/SGPT) 61 Total Bilirubin 6.4 Sodium Level 137 Potassium Level 3.2 Chloride Level 102 Carbon Dioxide Level 23.4 Anion Gap 12 Estimat Glomerular Filtration Rate 61 Protein Corrected Calcium 8.4 Date/Time Source Procedure Growth Status 07/02/17 18:54 Blood Peripheral Aerobic Blood Culture - Final NO GROWTH IN 5 DAYS Complete 07/02/17 18:54 Blood Peripheral Anaerobic Blood Culture - Final NO GROWTH IN 5 DAYS Complete 07/02/17 17:00 Sputum Endotracheal Gram Stain - Final Complete 07/02/17 17:00 Sputum Culture - Final Pseudomonas Aeruginosa Complete 07/02/17 15:45 Urine Clean Catch Urine Culture - Final Pseudomonas Aeruginosa Complete Imaging Last Impressions Cholangiopancreatography MRI 07/15/17 0000 Signed Impressions: Service Date/Time: Saturday, July 15, 2017 15:02 - CONCLUSION: 1. Ascites with small bilateral pleural effusions. 2. Small contracted gallbladder without definite stones 3. No definite common duct stone. 4. Pancreas obscured by motion. Alfredo Lora MD FACR Liver Ultrasound 07/14/17 0000 Signed Impressions: Service Date/Time: July 16:45 - CONCLUSION: 1. Small volume ascites. 2. Bilateral pleural effusions. 3. Sludge within the gallbladder with a top normal thickness of the gallbladder wall. No sonographic evidence to suggest acute cholecystitis. Pierce Ospina Jr., MD Chest X-Ray 07/10/17 0600 Signed Impressions: Service Date/Time: Monday, July 10, 2017 04:39 - CONCLUSION: No significant change with persistent bilateral pulmonary parenchymal opacity with lower lung zone predominance likely worsening pulmonary edema and bilateral pleural effusions. Luis Armando Michel MD Abdomen X-Ray 07/06/17 0000 Signed Impressions: Service Date/Time: Thursday, July 06, 2017 13:44 - CONCLUSION: 1. Gaseous distention of multiple bowel loops. This has slightly improved. 2. Left-sided nephroureteral stent in good position. Sarwat Suarez MD Upper Extremity Ultrasound 06/23/17 0000 Signed Impressions: Service Date/Time: June 20:03 - CONCLUSION: Noncompressibility right cephalic vein and left basilic vein consistent with venous thrombosis Trav Hsieh MD Lower Extremity Ultrasound 06/23/17 0000 Signed Impressions: Service Date/Time: June 20:16 - CONCLUSION: Normal examination. No evidence DVT Trav Hsieh MD Chest CT 06/20/17 0000 Signed Impressions: Service Date/Time: Tuesday, June 20, 2017 07:42 - CONCLUSION: 1. Bilateral effusions and consolidative changes in both lung bases. Bao Lora MD Abdomen/Pelvis CT 06/20/17 0000 Signed Impressions: Service Date/Time: Tuesday, June 20, 2017 07:39 - CONCLUSION: 1. Dilated stomach and multiple dilated loops of small bowel, likely ileus. 2. No definite gastric volvulus. 3. Fat containing right inguinal hernia which also contains small portion of the urinary bladder and minimal fluid. 4. Left-sided nephroureteral stent in good position. 5. Bibasilar consolidation and small pleural effusions. Sarwat Suarez MD Physical Exam HEENT: Normocephalic; atraumatic; no jaundice. CHEST: Resp. even/unlabored, diminished CARDIAC: RRR ABDOMEN: Soft, nondistended, nontender. ileostomy with small amount of liquid in ostomy bag. EXTREMITIES: No edema MAP DRAFTER: Alert and oriented, generalized weakness (Tami Sanderson) Assessment and Plan Plan ASSESSMENT: - Reconsulted for Elevated LFTs. We have evaluated him in the past for elevated LFTs. (Peak on 06/25- T. Bili 1.7, AST 1300, ALT 386, ALK Phosph 239) Previous workup- Liver US (06/24/17)---> Small volume ascites. Small right effusion. ASMA negative. Alpha 1 Antitrypsin 221. Hepatitis panel negative, LOIS neg, AMA < 20.0, Ceruloplasmin 74. AFP 3.3, Ferritin 5508. Iron saturation > 100%. He received one unit of blood on 06/18. Hfe gene negative C282Y, H63D undetected. It was thought that his previous elevation was multifactorial- related to infection, TPN, abx, and hypotension. We were consulted for worsening hyperbilirubinemia. Steroids discontinued on 06/13 due to possible cholestasis. Liver US (06/13/17) --->1. small volume ascites 2. bilateral pleural effusions 3. sludge within the gallbladder with a top normal thickness of the gallbladder wall. No sonographic evidence to suggest acute cholecystitis. MRCP 07/15/17-- 1. Ascites with small bilateral pleural effusions. 2. Small contracted gallbladder without definite stones 3. No definite common duct stone. 4. Pancreas obscured by motion. Patient denies abdominal pain. LFTs are improving. T. Bilirubin 6.4, AST 32, ALT 61, Alk Phosph 621. - Severe sepsis, CDifficile. WBC went up to 42.3 overnight. T. Max 100.7. S/P debridement of sacral decubitus ulcer. ID to see today. Oral Vanco. - CDiff. Oral vanco. - Respiratory failure, small pleural effusion. Currently on RA - NEIL. Improved - Anemia. S/P 1 unit prbc. labs from (07/14/17) 9.9/31.6. - Atrial fibrillation with RVR. Now sinus rhythm. Pt on Diltiazem. - Thrombocytopenia. S/P 1 unit platelet labs from (07/14/17) Plt 77. No CBC from this morning - Metastatic colon cancer. S/P lower anterior resection/coloanal anastomosis, resection and reanastomosis of the left ureter with ureteral anastomosis and double-J stent placement, wedge resection of hepatic metastasis, mobilization of the splenic flexure, and diverting closed loop ileostomy with Dr. Geiger and Dr. Pelayo on 05/26/17. Dr. Noel is his oncologist, but he has not seen him since his surgery - Sacral decubitus ulcer. S/P Excision sacral decubitus ulcer including skin, sq tissues, bone and muscle, placement of wound vac. (07/17/17) PLAN: - LYLE - Monitor LFTs - Supportive care - Avoid hepatotoxins - Avoid hypotensive episodes - Further recommendations to follow based on results of above - Patient seen and examined by Dr. Guaman and myself and this note is written on his behalf (Tami Sanderson) Physician Comments Patient seen and examined Agree with above Continue with current supportive care Monitor labs We will check for the alkaline phosphatase isoenzymes at this point Most likely cause for elevation of LFTs has been his underlying infection and sepsis and for the most part it seems to be resolving slowly but surely Not much to add otherwise (Brijesh Guaman MD) Tami Sanderson Jul 18, 2017 11:33 Brijesh Guaman MD Jul 18, 2017 19:34
[2017-07-18] MEDS ORDERED: CEFEPIME INJ 1,000 MG in SODIUM CHLORIDE 0.9% INJ 100 ML IV ONE (11:45)
--- NOTE | 2017-07-18 11:48 | HHI.PR ---
Subjective Remarks Pt s/p debridement and wound vac placement. Probable bacteremia with 42K WBC this AM. D/W who is quite concerned. Pt feels fine. Objective Vital Signs Date Time Temp Pulse Resp B/P (MAP) Pulse Ox O2 Delivery O2 Flow Rate FiO2 07/18/17 08:00 99.4 90 18 95/51 (66) 97 07/18/17 06:12 18 07/18/17 04:00 100.7 114 20 96/51 (66) 99 07/18/17 00:00 99.5 90 18 106/55 (72) 100 07/18/17 00:00 100 Nasal Cannula 2.00 07/17/17 20:01 76 07/17/17 20:00 97.5 78 18 95/53 (67) 100 07/17/17 16:06 97.7 84 19 90/54 (66) 99 07/17/17 15:22 18 07/17/17 12:30 97.8 83 19 94/55 (68) 99 07/17/17 12:00 78 16 109/60 (76) 100 Nasal Cannula 2 I/O 07/17/17 07/17/17 07/17/17 07/18/17 07/18/17 07/18/17 07:00 15:00 23:00 07:00 15:00 23:00 Intake Total 480 ml 500 ml 360 ml 360 ml Output Total 990 ml 20 ml 130 ml 650 ml Balance -510 ml 480 ml 230 ml -290 ml Intake Oral 480 ml 360 ml 360 ml Other 500 ml Output Urine Total 850 ml 100 ml 350 ml Stool Total 140 ml 30 ml 300 ml Estimated Blood Loss 20 ml # Voids 0 # Bowel Movements 1 0 Result Diagram: 07/18/1762407/18/17624 Objective Remarks VS-S Abd: Soft. Flat. Wound healed. Stoma working.Stools thick . I&Os: OK Labs: WBC 42K Assessment and Plan Assessment and Plan Decubitus-Debridement and wound vac placed Deconditioned-Not really a candidate for NHP. Needs Rehab. Cannot even get OOB at this time. OOB. Will need inpatient rehab Needs assist in ordering food and eating when not present To Rehab anytime when OK with all consultants D/W GI and ID Luca Geiger MD Jul 18, 2017 11:48
[2017-07-18 12:00] VITALS: BP 99/51; PULSE 93; RESP 18; TEMP 99.2; O2SAT 100
[2017-07-18] MEDS ORDERED: oxyCODONE/ACETAMINOPHEN 5 MG/325 MG TAB PO PRN (12:15)
--- NOTE | 2017-07-18 13:06 | HHI.IDPN ---
Note Infectious Disease Note Patient is awake and alert. Post debridement if sacral ulcer and wound vac. Noted pain from the vac area. WBC elevated. Marked increase. Afebrile. Admitted to the hospital with weakness, abdominal pain and nausea. The patient is status post anterior resection of colon and rectal areas and anastomosis along with a diverting ileostomy and also resection of a segment of left ureter with ureteral anastomosis and double-J stent placement three weeks prior. PAST MEDICAL HISTORY: 1. Hypertension. 2. Left knee surgery. 3. Metastatic colon cancer status post resection and coloanal anastomosis and also resection and re-anastomosis of the left ureter with double-J stent placement. ALLERGIES: CODEINE. ABX: Vancomycin PO. SOCIAL HISTORY: . Positive tobacco use. No alcohol. No illicit drug use. OBJECTIVE: Vital Signs Date Time Temp Pulse Resp B/P (MAP) Pulse Ox O2 Delivery O2 Flow Rate FiO2 07/18/17 08:00 99.4 90 18 95/51 (66) 97 07/18/17 06:12 18 07/18/17 04:00 100.7 114 20 96/51 (66) 99 07/18/17 00:00 99.5 90 18 106/55 (72) 100 07/18/17 00:00 100 Nasal Cannula 2.00 07/17/17 20:01 76 07/17/17 20:00 97.5 78 18 95/53 (67) 100 07/17/17 16:06 97.7 84 19 90/54 (66) 99 07/17/17 15:22 18 Laboratory Tests Test 07/17/17 06:58 07/18/17 06:25 White Blood Count 14.6 TH/MM3 42.3 TH/MM3 Red Blood Count 3.64 MIL/MM3 2.98 MIL/MM3 Hemoglobin 10.5 GM/DL 8.8 GM/DL Hematocrit 33.8 % 28.1 % Mean Corpuscular Volume 92.8 FL 94.4 FL Mean Corpuscular Hemoglobin 28.9 PG 29.7 PG Mean Corpuscular Hemoglobin Concent 31.1 % 31.4 % Red Cell Distribution Width 21.4 % 21.8 % Platelet Count 80 TH/MM3 74 TH/MM3 Mean Platelet Volume 11.3 FL 11.3 FL Neutrophils (%) (Auto) 85.7 % 94.1 % Lymphocytes (%) (Auto) 4.4 % 0.5 % Monocytes (%) (Auto) 8.7 % 5.0 % Eosinophils (%) (Auto) 0.2 % 0.0 % Basophils (%) (Auto) 1.0 % 0.4 % Neutrophils # (Auto) 12.5 TH/MM3 39.8 TH/MM3 Lymphocytes # (Auto) 0.6 TH/MM3 0.2 TH/MM3 Monocytes # (Auto) 1.3 TH/MM3 2.1 TH/MM3 Eosinophils # (Auto) 0.0 TH/MM3 0.0 TH/MM3 Basophils # (Auto) 0.1 TH/MM3 0.2 TH/MM3 CBC Comment AUTO DIFF AUTO DIFF Differential Total Cells Counted 100 100 Neutrophils % (Manual) 82 % 92 % Band Neutrophils % 5 % Lymphocytes % 4 % 2 % Monocytes % 7 % 6 % Neutrophils # (Manual) 13.0 TH/MM3 38.9 TH/MM3 Metamyelocytes 1 % Myelocytes 1 % Differential Comment FINAL DIFF MANUAL FINAL DIFF MANUAL Hypersegmented Polys 1+ Platelet Estimate LOW LOW Platelet Morphology Comment NORMAL ENLARGED Target Cells 1+ Laboratory Tests Test 07/17/17 06:58 07/18/17 06:25 Blood Urea Nitrogen 26 MG/DL 29 MG/DL Creatinine 0.77 MG/DL 1.19 MG/DL Random Glucose 89 MG/DL 153 MG/DL Total Protein 6.3 GM/DL 5.3 GM/DL Albumin 2.0 GM/DL 1.6 GM/DL Calcium Level 8.0 MG/DL 7.4 MG/DL Alkaline Phosphatase 845 U/L 621 U/L Aspartate Amino Transf (AST/SGOT) 48 U/L 32 U/L Alanine Aminotransferase (ALT/SGPT) 85 U/L 61 U/L Total Bilirubin 6.4 MG/DL 6.4 MG/DL Sodium Level 138 MEQ/L 137 MEQ/L Potassium Level 3.0 MEQ/L 3.2 MEQ/L Chloride Level 102 MEQ/L 102 MEQ/L Carbon Dioxide Level 26.3 MEQ/L 23.4 MEQ/L Anion Gap 10 MEQ/L 12 MEQ/L Estimat Glomerular Filtration Rate 100 ML/MIN 61 ML/MIN Protein Corrected Calcium 8.4 MG/DL Microbiology Date/Time Source Procedure Growth Status 07/02/17 18:54 Blood Peripheral Aerobic Blood Culture - Preliminary NO GROWTH IN 3 DAYS Resulted 07/02/17 18:54 Blood Peripheral Anaerobic Blood Culture - Preliminary NO GROWTH IN 3 DAYS Resulted 07/02/17 18:49 Blood Peripheral Aerobic Blood Culture - Preliminary NO GROWTH IN 3 DAYS Resulted 07/02/17 18:49 Blood Peripheral Anaerobic Blood Culture - Preliminary NO GROWTH IN 3 DAYS Resulted 07/02/17 17:00 Sputum Endotracheal Gram Stain - Final Complete 07/02/17 17:00 Sputum Culture - Final Pseudomonas Aeruginosa Complete 07/02/17 15:45 Urine Clean Catch Urine Culture - Final Pseudomonas Aeruginosa Complete IMAGING: Chest X-Ray 07/10/17599 Signed Impressions: Service Date/Time: Monday, July 10, 2017 04:39 - CONCLUSION: No significant change with persistent bilateral pulmonary parenchymal opacity with lower lung zone predominance likely worsening pulmonary edema and bilateral pleural effusions. Luis Armando Michel MD Chest X-Ray 07/06/17599 Signed Impressions: Service Date/Time: Thursday, July 06, 2017 03:52 - CONCLUSION: No significant interval change Luca Trinidad MD PHYSICAL EXAMINATION: GENERAL: No acute distress. HEENT: No icterus. Oropharynx with dry mucosa. NECK: Supple. LUNGS: Clear breath sounds. HEART: Regular S1-S2 without murmurs, rubs or gallops. ABDOMEN: Positive bowel sounds. Soft. Not tender. EXTREMITIES: No clubbing or cyanosis, edema. SKIN: No rash. NEUROLOGIC: Nonfocal. IMPRESSION: 1. Post treatment for Severe sepsis/ Bandemia. Status post recent surgery for rectal cancer and recent ureteral resection and double J ureteral stent. 2. C difficile colitis. Pseudomembranous enteritis/sepsis. 3. Acute respiratory failure. Extubated. 4. Pseudomonas pneumonia and UTI. Treated and improved. 5. Leukocytosis. Improved to normal. Now elevated. - ? post op acute stress. Looks clinically stable. Not toxic appearing. RECOMMENDATIONS: 1. Continue PO Vancomycin at 250 mg. 2. Monitor follow up WBC tomorrow. El Espinoza MD Jul 18, 2017 13:06
--- NOTE | 2017-07-18 14:07 | HHI.PR ---
Subjective Remarks Patient reports lack of pain control today. She had a fever 100.7 F overnight. White blood cell count has increased, this may be reactive versus infectious. Etiology of infection is unlikely to be related to surgery due to proximity. Objective Vital Signs Date Time Temp Pulse Resp B/P (MAP) Pulse Ox O2 Delivery O2 Flow Rate FiO2 07/18/17 12:00 99.2 93 18 99/51 (67) 100 07/18/17 08:00 99.4 90 18 95/51 (66) 97 07/18/17 06:12 18 07/18/17 04:00 100.7 114 20 96/51 (66) 99 07/18/17 00:00 99.5 90 18 106/55 (72) 100 07/18/17 00:00 100 Nasal Cannula 2.00 07/17/17 20:01 76 07/17/17 20:00 97.5 78 18 95/53 (67) 100 07/17/17 16:06 97.7 84 19 90/54 (66) 99 07/17/17 15:22 18 I/O 07/17/17 07/17/17 07/17/17 07/18/17 07/18/17 07/18/17 07:00 15:00 23:00 07:00 15:00 23:00 Intake Total 480 ml 500 ml 360 ml 360 ml Output Total 990 ml 20 ml 130 ml 650 ml 200 ml Balance -510 ml 480 ml 230 ml -290 ml -200 ml Intake Oral 480 ml 360 ml 360 ml Other 500 ml Output Urine Total 850 ml 100 ml 350 ml 200 ml Stool Total 140 ml 30 ml 300 ml Estimated Blood Loss 20 ml # Voids 0 # Bowel Movements 1 0 Result Diagram: 07/18/1762407/18/17624 Objective Remarks GENERAL: NAD, A&Ox3 HEAD: Normocephalic. NECK: Supple, trachea midline. No lymphadenopathy. EYES: No scleral icterus. No injection or drainage. CARDIOVASCULAR: Regular rate and rhythm without murmurs, gallops, or rubs. RESPIRATORY: Breath sounds equal bilaterally. No accessory muscle use. GASTROINTESTINAL: Abdomen soft, non-tender, nondistended. MUSCULOSKELETAL: No cyanosis, or edema. Sacral ulcer has wound VAC in place. SKIN: Warm and dry. NEURO: No focal neurological deficitis. A/P Problem List: (1) Sacral ulcer ICD Code: L98.429 - Non-pressure chronic ulcer of back with unspecified severity (2) 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 Code: Z93.2 - Ileostomy status (3) Cancer of rectum ICD Code: C20 - Malignant neoplasm of rectum Assessment and Plan Assessment and Plan 67 year-old male admitted with respiratory failure secondary to pneumonia and COPD exacerbation. Prolonged time on vent, patient now has decubitus ulcer. Status post wound VAC placement. Leukocytosis and fever present last 24 hours. Labs reviewed. Continue to monitor CBC. Next CBC will be obtained this afternoon to help decide if antibiotics should be initiated should this be infectious rather than reactive. Acute respiratory failure Pseudomonal pneumonia COPD with exacerbation Improved Patient extubated 07/06/17 Continue bronchodilators Continue inhaled steroids Continue to mucolytic's Continue incentive spirometry Off systemic steroids A. fib with RVR Improved Follow on telemetry Continue by mouth Cardizem Continue by mouth digoxin Continue Lovenox Continue diuresis Status post left colectomy Colorectal cancer Diverting ileostomy Wedge resection of liver metastases Status post resection of the left ureter Transaminitis Ileus continue Alvimopam 12mg BID for Ileus Continue Han catheter Continue diuretics C. difficile enteritis Continue by mouth vancomycin Follow for clinical improvement Sacral ulcer Colon rectal surgery following Plastic surgery consulted Continue wound care Left upper extremity thrombosis DVT prophylaxis Lovenox Bao Stafford MD Jul 18, 2017 14:07
--- NOTE | 2017-07-18 15:45 | HHI.PR ---
Subjective . Discussed placement with D/C party planner and pt and Objective . VS-S Abd: Benign,stoma working Assessment/Plan . Leukocytosis most likely from aggressive debridement of Decubitus consisting of necrotic tissue and debridement of vascular sacrum. Plan: Cefepime given x 1. Will give a few doses until WBC rechecked and re- evaluated in AM. Luca Geiger MD Jul 18, 2017 15:45
[2017-07-18 16:00] VITALS: BP 100/57; PULSE 94; RESP 18; TEMP 100.3; O2SAT 93
--- NOTE | 2017-07-18 16:49 | RADRPT ---
EXAM DATE/TIME: 07/18/2017 16:30 [facility] COMPARISON: CHEST SINGLE AP, July 10, 2017, 4:39. INDICATIONS : Fever, posterior chest pain MEDICAL HISTORY : Hypertension. Hypercholesterolemia. SURGICAL HISTORY : ENCOUNTER: Subsequent ACUITY: 1 month PAIN SCORE: 0/10 LOCATION: chest FINDINGS: There is improvement with less bibasilar consolidative changes. Minimal consolidation remains in the right base. The heart and pulmonary vascularity are normal. The portion of the bony skeleton visuali zed is unremarkable. CONCLUSION: Improvement Minimal consolidation remain right base. Alfredo Lora MD FACR on July 18, 2017 at 16:47 Board Certified Radiologist. This report was verified electronically.
[2017-07-18] MEDS: metroNIDAZOLE 500 MG TAB PO SCH ×2 (17:16→23:59)
[2017-07-18] MEDS: oxyCODONE/ACETAMINOPHEN 10 MG/325 MG TAB PO PRN (18:12)
[2017-07-18 19:17] LABS: AUTOMATED NEUTROPHIL # 39.4 TH/MM3 (1.8-7.7); BASOPHIL % 0.1 % (0.0-2.0); HEMATOCRIT 25.6 % (39.0-51.0); LYMPH % 1.1 % (9.0-44.0); LYMPHOCYTE # 0.5 TH/MM3 (1.0-4.8); MEAN CELL VOLUME 94.9 FL (80.0-100.0); MEAN CORPUSCULAR HGB CONC 31.7 % (32.0-36.0); MONO % 4.6 % (0.0-8.0); NEUT % 94.2 % (16.0-70.0); PLATELET COUNT 64 TH/MM3 (150-450); WHITE BLOOD COUNT 41.9 TH/MM3 (4.0-11.0)
[2017-07-18 19:23] LABS: HEMO FLAGS AUTO DIFF
[2017-07-18] MEDS: CEFEPIME INJ 2,000 MG in SODIUM CHLORIDE 0.9% INJ 100 ML IV SCH (19:55)
[2017-07-18 20:00] VITALS: BP 92/51; PULSE 88; PULSE 91; RESP 18; TEMP 98.5; O2SAT 96
[2017-07-18] MEDS: VIIBRYD 40 MG PO SCH (20:01)
[2017-07-18 20:06] LABS: BANDS 6 % (0-6); NEUTROPHIL # MANUAL DIFF 39.4 TH/MM3 (1.8-7.7); POLYS (SEG NEUTROPHILS) 88 % (16-70); SCAN/DIFF FINAL DIFF MANUAL; WBC DIFF SAMPLE 100
[2017-07-18 20:07] LABS: PLATELET ESTIMATE SMEAR LOW (NORMAL); PLATELET MORPHOLOGY ENLARGED (NORMAL); TARGET CELLS 1+ (NORMAL)
[2017-07-18 20:30] LABS: BACTERIA, URINE MANY /hpf; BLOOD, URINE SMALL (NEG); COMMENT (UR) CULTURE INDICATED; CULTURE IF INDICATED CULTURE INDICATED; GLUCOSE,URINE NEG (NEG); KETONE, URINE NEG (NEG); MUCUS URINE MANY /lpf (OCC); NITRITE,URINE POS (NEG); SQUAMOUS EPITHELIAL CELL URINE <1 /hpf (0-5); URINE COLOR DARK-YELLOW (YELLW/STRAW)
[2017-07-19] VITALS (8 sets, daily range): BP systolic 97–107; BP diastolic 50–63; PULSE 65–90; RESP 16–18; TEMP 98–98.9; O2SAT 96–98
[2017-07-19] MEDS: oxyCODONE/ACETAMINOPHEN 10 MG/325 MG TAB PO PRN ×3 (00:03→18:05)
[2017-07-19] MEDS: DILTIAZEM HCL 60 MG TAB PO SCH ×3 (05:45→17:13)
[2017-07-19 07:12] LABS: AUTOMATED NEUTROPHIL # 32.2 TH/MM3 (1.8-7.7); BASOPHIL # 0.1 TH/MM3 (0-0.2); BASOPHIL % 0.2 % (0.0-2.0); HEMATOCRIT 27.5 % (39.0-51.0); LYMPHOCYTE # 0.4 TH/MM3 (1.0-4.8); MEAN CELL VOLUME 92.9 FL (80.0-100.0); MEAN CORPUSCULAR HEMOGLOBIN 29.2 PG (27.0-34.0); MEAN CORPUSCULAR HGB CONC 31.4 % (32.0-36.0); MONO % 4.7 % (0.0-8.0); NEUT % 94.1 % (16.0-70.0); PLATELET COUNT 58 TH/MM3 (150-450); RED BLOOD COUNT 2.97 MIL/MM3 (4.50-5.90); RED CELL DISTRIBUTION WIDTH 22.5 % (11.6-17.2); WHITE BLOOD COUNT 34.3 TH/MM3 (4.0-11.0)
[2017-07-19 07:15] LABS: HEMO FLAGS AUTO DIFF
[2017-07-19 07:41] LABS: ANION GAP 9 MEQ/L (5-15); AST (GOT) 21 U/L (15-37); BLOOD UREA NITROGEN 30 MG/DL (7-18); CHLORIDE 103 MEQ/L (98-107); GLOMERULAR FILTRATION RATE 81 ML/MIN (>89); POTASSIUM 3.7 MEQ/L (3.5-5.1); SODIUM (NA) 137 MEQ/L (136-145)
[2017-07-19 07:45] LABS: ALKALINE PHOSPHATASE 491 U/L (45-117); ALT (GPT) 52 U/L (12-78); TOTAL BILIRUBIN ADULT 5.3 MG/DL (0.2-1.0)
[2017-07-19] MEDS: INSULIN ASPART SUPPLEMENTAL SCALE SQ SCH ×4 (08:00→20:33)
--- NOTE | 2017-07-19 08:24 | PD.ONC.PN ---
Subjective Subjective Remarks Pt seen and examined, vital signs, medications, labs and events of the past several days were reviewed. The patient has been transferred to the [facility] unit, he no longer requires ICU level care. He tells me he has a bed sore on his sacrum and because of that he is unable to lay flat, laying on his side is painful. He tells me all in all he is eating more than he was several days ago, he is able to move more and has been working more with physical therapy. He is frustrated however by the slow rate of progress. Labs reviewed and it appears his thrombocytopenia has worsened over the past 48 hours after having improved over the past 1 week. There has been no overt bleeding. Objective Data Date Time Temp Pulse Resp B/P (MAP) Pulse Ox O2 Delivery O2 Flow Rate FiO2 07/19/17 04:00 98.0 83 18 102/57 (72) 97 07/19/17 01:17 18 07/19/17 00:00 98.2 78 16 102/50 (67) 96 07/18/17 20:00 91 07/18/17 20:00 98.5 88 18 92/51 (65) 96 07/18/17 19:16 Nasal Cannula 2.00 07/18/17 17:26 Nasal Cannula 2.00 21 07/18/17 16:00 100.3 94 18 100/57 (71) 93 07/18/17 12:00 99.2 93 18 99/51 (67) 100 07/19/17 07/19/17 07/19/17 07:00 15:00 23:00 Intake Total 360 ml Output Total 700 ml Balance -340 ml Result Diagram: 07/19/17 0616 07/19/17 0616 Laboratory Results Laboratory Tests Test 07/18/17 18:40 07/18/17 20:00 07/19/17 06:16 White Blood Count 41.9 TH/MM3 34.3 TH/MM3 Red Blood Count 2.70 MIL/MM3 2.97 MIL/MM3 Hemoglobin 8.1 GM/DL 8.6 GM/DL Hematocrit 25.6 % 27.5 % Mean Corpuscular Volume 94.9 FL 92.9 FL Mean Corpuscular Hemoglobin 30.0 PG 29.2 PG Mean Corpuscular Hemoglobin Concent 31.7 % 31.4 % Red Cell Distribution Width 22.0 % 22.5 % Platelet Count 64 TH/MM3 58 TH/MM3 Mean Platelet Volume 11.3 FL 11.3 FL Neutrophils (%) (Auto) 94.2 % 94.1 % Lymphocytes (%) (Auto) 1.1 % 1.0 % Monocytes (%) (Auto) 4.6 % 4.7 % Eosinophils (%) (Auto) 0.0 % 0.0 % Basophils (%) (Auto) 0.1 % 0.2 % Neutrophils # (Auto) 39.4 TH/MM3 32.2 TH/MM3 Lymphocytes # (Auto) 0.5 TH/MM3 0.4 TH/MM3 Monocytes # (Auto) 1.9 TH/MM3 1.6 TH/MM3 Eosinophils # (Auto) 0.0 TH/MM3 0.0 TH/MM3 Basophils # (Auto) 0.0 TH/MM3 0.1 TH/MM3 CBC Comment AUTO DIFF AUTO DIFF Differential Total Cells Counted 100 Neutrophils % (Manual) 88 % Band Neutrophils % 6 % Lymphocytes % 3 % Monocytes % 3 % Neutrophils # (Manual) 39.4 TH/MM3 Differential Comment FINAL DIFF MANUAL Platelet Estimate LOW Platelet Morphology Comment ENLARGED Target Cells 1+ Urine Color DARK-YELLOW Urine Turbidity HAZY Urine pH 6.0 Urine Specific [place] 1.012 Urine Protein 30 mg/dL Urine Glucose (UA) NEG mg/dL Urine Ketones NEG mg/dL Urine Occult Blood SMALL Urine Nitrite POS Urine Bilirubin SMALL Urine Urobilinogen LESS THAN 2.0 MG/DL Urine Leukocyte Esterase LARGE Urine RBC 5 /hpf Urine WBC 123 /hpf Urine Squamous Epithelial Cells <1 /hpf Urine Amorphous Sediment RARE Urine Bacteria MANY /hpf Urine Mucus MANY /lpf Microscopic Urinalysis Comment CULTURE INDICATED Blood Urea Nitrogen 30 MG/DL Creatinine 0.93 MG/DL Random Glucose 102 MG/DL Total Protein 5.2 GM/DL Albumin 1.5 GM/DL Calcium Level 7.8 MG/DL Alkaline Phosphatase 491 U/L Aspartate Amino Transf (AST/SGOT) 21 U/L Alanine Aminotransferase (ALT/SGPT) 52 U/L Total Bilirubin 5.3 MG/DL Sodium Level 137 MEQ/L Potassium Level 3.7 MEQ/L Chloride Level 103 MEQ/L Carbon Dioxide Level 25.0 MEQ/L Anion Gap 9 MEQ/L Estimat Glomerular Filtration Rate 81 ML/MIN Culture Results Microbiology Date/Time Source Procedure Growth Status 07/18/17 20:00 Urine Clean Catch Urine Culture Pending Received Administered Medications Medications (Trade) Dose Ordered Sig/[place] Route PRN Reason Start Time Stop Time Status Last Admin Dose Admin Ondansetron HCl (Zofran Inj) 4 mg Q4H PRN IV PUSH NAUSEA/VOMITING 06/17/17 22:00 06/18/17 09:45 Miscellaneous Information Patient in critical care unit? Ass... [id number] .XX 06/18/17 05:45 06/18/17 05:45 Albuterol Sulfate (Albuterol Neb) 2.5 mg Q2HR NEB PRN NEB DYSPNEA 06/29/17 14:30 07/05/17 08:44 Potassium Bicarb/ Potassium Chloride (K-Lyte Cl Eff) 25 meq DAILY PO 07/05/17 12:00 07/18/17 10:32 Diltiazem HCl (Cardizem) 60 mg Q6HR PO 07/05/17 12:45 07/19/17 05:45 Collagenase (Santyl Oint) 1 applic DAILY TOPICAL 07/07/17 09:00 07/16/17 09:00 Budesonide/ Formoterol Fumarate (Symbicort 160-4.5 Inh) 1 puff Q12HR INH 07/07/17 09:00 07/18/17 20:03 Enoxaparin Sodium (Lovenox Inj) 40 mg Q24H SQ 07/09/17 09:00 07/18/17 10:29 Pantoprazole Sodium (Protonix) 40 mg DAILY PO 07/11/17 09:00 07/18/17 10:33 Digoxin (Lanoxin) 0.125 mg DAILY PO 07/11/17 09:00 07/18/17 10:33 Insulin Aspart (NovoLOG SUPPLEMENTAL SCALE) 1 ACHS SQ 07/11/17 17:00 07/18/17 17:00 Vancomycin HCl (VANCOMYCIN for oral use only) 250 mg QID PO 07/13/17 18:00 07/20/17 18:00 07/18/17 20:02 Patient Own Medication PT OWN MED: VIIB... HS PO 07/15/17 21:00 07/18/17 20:01 Oxycodone/ Acetaminophen (Percocet 10-325 Mg) 1 tab Q4H PRN PO Pain 7 to 10 07/18/17 12:15 07/19/17 00:03 Cefepime HCl 2000 mg/Sodium Chloride 100 ml @ 200 mls/hr Q12H IV 07/18/17 20:00 07/18/17 19:55 Metronidazole (Flagyl) 500 mg Q8H PO 07/18/17 16:00 07/18/17 23:59 Objective Remarks GENERAL APPEARANCE: Mr. Armendariz is a middle-aged/elderly male. He is laying in bed. He is awake and alert responsive. He is able to speak in full sentences. HEENT: Head atraumatic, normocephalic. Conjunctivae are pale. Sclerae are anicteric, EOMI, PERRLA, oral exam no pharyngeal erythema. NECK: No palpable cervical or supraclavicular lymphadenopathy. RESPIRATORY: Good air movement bilaterally. Coarse conducted breath sounds. He has prolonged expiratory phase. He is initiating multiple spontaneous breaths. CARDIOVASCULAR: Irregular, tachycardiac, S1 S2, no obvious murmurs, rubs or gallops. ABDOMEN: The belly is soft. An ileostomy bag is noted containing liquid stools. A well-healing laparotomy incision in the midline is appreciated. The abdomen does not appear to be distended, there appears to be no significant increase in tympany on percussion. There are no signs of acute abdomen. LOWER EXTREMITIES: No pretibial edema, no calf tenderness. Upper extremities: Right upper extremity with edema. MUSCULOSKELETAL: Generalized muscle atrophy and generalized weakness without focal deficits. 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 Assessment/Plan Assessment Mr. Armendariz is a 67-year-old male who was recently diagnosed with metastatic adenocarcinoma of the rectosigmoid colon and had resection of a metastatic deposit to the liver. He is status post primary surgical resection (3-4 weeks ago) as well as wedge resection of a metastatic deposit to the liver and now has C difficile colitis. He has thrombocytopenia with thrombosis to the cephalic and brachial veins. Admitted to colorectal surgery service initially for weakness/abdominal pain. Then 06/18 became tachy and hypotensive. had elevated lactic acid and bandemia. sepsis suspected. Railroad Crossing Protection Maintainer was consulted. on 06/20 was intubated d /t hemodynamic instability. platelets also started falling on 06/20. Plan 1. Thrombocytopenia: likely d/t sepsis/DIC there may have been an element of ITP as well given the improvement while he was on corticosteroids. There seems to be a relationship with discontinuation of prednisone and worsening of his thrombocytopenia. I believe the prednisone was discontinued due to progressive neutrophilia secondary to the margination of neutrophils. 2. Metastatic colon cancer: will discuss after current issues resolve because he is presently not a candidate for palliative therapy given his acute medical issues and overall physical debility. 3. Left upper extremity thrombosis involving the cephalic and basilic veins on the L side, noted, asymptomatic, will repeat an US doppler if his extremity is more swollen or symptomatic. He is on prophylactic dose anticoagulation with lovenox. Continue on going care. Encouraged PO intake. Likely will require in patient rehab. Faraz Ryan MD Jul 19, 2017 08:24
[2017-07-19] MEDS: VANCOMYCIN 500 MG VIAL (FOR ORAL USE ONLY) PO SCH ×4 (08:30→20:33)
[2017-07-19] MEDS: metroNIDAZOLE 500 MG TAB PO SCH ×2 (08:30→17:13)
[2017-07-19] MEDS: PANTOPRAZOLE SOD 40 MG DELAYED RELEASE TAB PO SCH (08:31)
[2017-07-19] MEDS: DIGOXIN 0.125 MG TAB PO SCH (08:31)
[2017-07-19] MEDS: POTASSIUM CHLORIDE 25 MEQ EFFERVESCENT TAB PO SCH (08:31)
[2017-07-19] MEDS: ENOXAPARIN SODIUM 40 MG/0.4 ML SYRINGE SQ SCH (08:31)
[2017-07-19] MEDS: BUDESONIDE-FORMOTEROL 160/4.5 MCG INHALER INH SCH ×2 (08:32→20:21)
[2017-07-19] MEDS: CEFEPIME INJ 2,000 MG in SODIUM CHLORIDE 0.9% INJ 100 ML IV SCH ×2 (08:40→20:33)
[2017-07-19] MEDS: COLLAGENASE OINT 30 GM TUBE TOPICAL SCH (08:44)
[2017-07-19 09:08] LABS: BANDS 3 % (0-6); PLATELET ESTIMATE SMEAR LOW (NORMAL); POLYS (SEG NEUTROPHILS) 96 % (16-70); SCAN/DIFF FINAL DIFF MANUAL; WBC DIFF SAMPLE 100
[2017-07-19 09:09] LABS: PLATELET MORPHOLOGY ENLARGED (NORMAL); TOXIC VACUOLATION PRESENT (NONE SEEN)
[2017-07-19 09:10] LABS: DOHLE BODIES PRESENT (NONE SEEN)
[2017-07-19 09:12] LABS: HYPERSEGMENTED POLYS 1+ (NORMAL); TARGET CELLS 1+ (NORMAL)
[2017-07-19] MEDS ORDERED: VANCOMYCIN INJ 1,000 MG in SODIUM CHLOR 0.9% 250 ML INJ 250 ML IV SCH (10:45)
[2017-07-19] MEDS ORDERED: Vancomycin Consult Pharmacy 1 EA OTHER SCH (11:00)
--- NOTE | 2017-07-19 12:40 | HHI.IDPN ---
Note Infectious Disease Note Patient is awake and alert. No distress. Notes pain in the sacrum. WBC remain elevated. Low grade temp yesterday evening. Admitted to the hospital with weakness, abdominal pain and nausea. The patient is status post anterior resection of colon and rectal areas and anastomosis along with a diverting ileostomy and also resection of a segment of left ureter with ureteral anastomosis and double-J stent placement three weeks prior. PAST MEDICAL HISTORY: 1. Hypertension. 2. Left knee surgery. 3. Metastatic colon cancer status post resection and coloanal anastomosis and also resection and re-anastomosis of the left ureter with double-J stent placement. ALLERGIES: CODEINE. ABX: Vancomycin PO. SOCIAL HISTORY: . Positive tobacco use. No alcohol. No illicit drug use. OBJECTIVE: Vital Signs Date Time Temp Pulse Resp B/P (MAP) Pulse Ox O2 Delivery O2 Flow Rate FiO2 07/19/17 12:00 98.9 65 18 107/63 (78) 98 07/19/17 08:00 98.5 84 18 98/56 (70) 98 07/19/17 04:00 98.0 83 18 102/57 (72) 97 07/19/17 01:17 18 07/19/17 00:00 98.2 78 16 102/50 (67) 96 07/18/17 20:00 91 07/18/17 20:00 98.5 88 18 92/51 (65) 96 07/18/17 19:16 Nasal Cannula 2.00 07/18/17 17:26 Nasal Cannula 2.00 21 07/18/17 16:00 100.3 94 18 100/57 (71) 93 Laboratory Tests Test 07/18/17 06:25 07/18/17 18:40 07/19/17 06:16 White Blood Count 42.3 TH/MM3 41.9 TH/MM3 34.3 TH/MM3 Red Blood Count 2.98 MIL/MM3 2.70 MIL/MM3 2.97 MIL/MM3 Hemoglobin 8.8 GM/DL 8.1 GM/DL 8.6 GM/DL Hematocrit 28.1 % 25.6 % 27.5 % Mean Corpuscular Volume 94.4 FL 94.9 FL 92.9 FL Mean Corpuscular Hemoglobin 29.7 PG 30.0 PG 29.2 PG Mean Corpuscular Hemoglobin Concent 31.4 % 31.7 % 31.4 % Red Cell Distribution Width 21.8 % 22.0 % 22.5 % Platelet Count 74 TH/MM3 64 TH/MM3 58 TH/MM3 Mean Platelet Volume 11.3 FL 11.3 FL 11.3 FL Neutrophils (%) (Auto) 94.1 % 94.2 % 94.1 % Lymphocytes (%) (Auto) 0.5 % 1.1 % 1.0 % Monocytes (%) (Auto) 5.0 % 4.6 % 4.7 % Eosinophils (%) (Auto) 0.0 % 0.0 % 0.0 % Basophils (%) (Auto) 0.4 % 0.1 % 0.2 % Neutrophils # (Auto) 39.8 TH/MM3 39.4 TH/MM3 32.2 TH/MM3 Lymphocytes # (Auto) 0.2 TH/MM3 0.5 TH/MM3 0.4 TH/MM3 Monocytes # (Auto) 2.1 TH/MM3 1.9 TH/MM3 1.6 TH/MM3 Eosinophils # (Auto) 0.0 TH/MM3 0.0 TH/MM3 0.0 TH/MM3 Basophils # (Auto) 0.2 TH/MM3 0.0 TH/MM3 0.1 TH/MM3 CBC Comment AUTO DIFF AUTO DIFF AUTO DIFF Differential Total Cells Counted 100 100 100 Neutrophils % (Manual) 92 % 88 % 96 % Lymphocytes % 2 % 3 % Monocytes % 6 % 3 % 1 % Neutrophils # (Manual) 38.9 TH/MM3 39.4 TH/MM3 34.0 TH/MM3 Differential Comment FINAL DIFF MANUAL FINAL DIFF MANUAL FINAL DIFF MANUAL Platelet Estimate LOW LOW LOW Platelet Morphology Comment ENLARGED ENLARGED ENLARGED Band Neutrophils % 6 % 3 % Target Cells 1+ 1+ Hypersegmented Polys 1+ Toxic Vacuolation PRESENT Dohle Bodies PRESENT Laboratory Tests Test 07/18/17 06:25 07/19/17 06:16 Blood Urea Nitrogen 29 MG/DL 30 MG/DL Creatinine 1.19 MG/DL 0.93 MG/DL Random Glucose 153 MG/DL 102 MG/DL Total Protein 5.3 GM/DL 5.2 GM/DL Albumin 1.6 GM/DL 1.5 GM/DL Calcium Level 7.4 MG/DL 7.8 MG/DL Alkaline Phosphatase 621 U/L 491 U/L Aspartate Amino Transf (AST/SGOT) 32 U/L 21 U/L Alanine Aminotransferase (ALT/SGPT) 61 U/L 52 U/L Total Bilirubin 6.4 MG/DL 5.3 MG/DL Sodium Level 137 MEQ/L 137 MEQ/L Potassium Level 3.2 MEQ/L 3.7 MEQ/L Chloride Level 102 MEQ/L 103 MEQ/L Carbon Dioxide Level 23.4 MEQ/L 25.0 MEQ/L Anion Gap 12 MEQ/L 9 MEQ/L Estimat Glomerular Filtration Rate 61 ML/MIN 81 ML/MIN Protein Corrected Calcium 8.4 MG/DL Microbiology Date/Time Source Procedure Growth Status 07/18/17 20:00 Urine Clean Catch Urine Culture Pending Received Microbiology Date/Time Source Procedure Growth Status 07/02/17 18:54 Blood Peripheral Aerobic Blood Culture - Preliminary NO GROWTH IN 3 DAYS Resulted 07/02/17 18:54 Blood Peripheral Anaerobic Blood Culture - Preliminary NO GROWTH IN 3 DAYS Resulted 07/02/17 18:49 Blood Peripheral Aerobic Blood Culture - Preliminary NO GROWTH IN 3 DAYS Resulted 07/02/17 18:49 Blood Peripheral Anaerobic Blood Culture - Preliminary NO GROWTH IN 3 DAYS Resulted 07/02/17 17:00 Sputum Endotracheal Gram Stain - Final Complete 07/02/17 17:00 Sputum Culture - Final Pseudomonas Aeruginosa Complete 07/02/17 15:45 Urine Clean Catch Urine Culture - Final Pseudomonas Aeruginosa Complete IMAGING: Chest X-Ray 07/18/17 0000 Signed Impressions: Service Date/Time: Tuesday, July 18, 2017 16:30 - CONCLUSION: Improvement Minimal consolidation remain right base. Alfredo Lora MD FACR Chest X-Ray 07/10/17 0600 Signed Impressions: Service Date/Time: Monday, July 10, 2017 04:39 - CONCLUSION: No significant change with persistent bilateral pulmonary parenchymal opacity with lower lung zone predominance likely worsening pulmonary edema and bilateral pleural effusions. Luis Armando Michel MD Chest X-Ray 07/06/17 0600 Signed Impressions: Service Date/Time: Thursday, July 06, 2017 03:52 - CONCLUSION: No significant interval change Luca Trinidad MD PHYSICAL EXAMINATION: GENERAL: No acute distress. HEENT: No icterus. Oropharynx with dry mucosa. NECK: Supple. LUNGS: Decreased breath sounds. HEART: Regular S1-S2 without murmurs, rubs or gallops. ABDOMEN: Positive bowel sounds. Soft. Not tender. EXTREMITIES: No clubbing or cyanosis, edema. SKIN: No rash. NEUROLOGIC: Nonfocal. IMPRESSION: 1. Post treatment for Severe sepsis/ Bandemia. Status post recent surgery for rectal cancer and recent ureteral resection and double J ureteral stent. 2. C difficile colitis. Pseudomembranous enteritis/sepsis. 3. Acute respiratory failure. Extubated. 4. Pseudomonas pneumonia and UTI. Treated and improved. 5. Leukocytosis. Improved to normal then elevated again. - abnormal UA ? UTI. RECOMMENDATIONS: 1. Continue PO Vancomycin at 250 mg. 2. Continue other antibiotics ( cefepime,Flagyl,Vancomycin IV) 3. Follow cultures. 4. Monitor WBC. El Espinoza MD Jul 19, 2017 12:40
--- NOTE | 2017-07-19 14:15 | HHI.PR ---
Subjective Remarks Persisting elevated white blood cell count. No further fevers. Slight increase in neutrophil percent, which is ready elevated. This is suggestive of infection rather than reactivity. Is expecting and reactive situation that resolution would occur much quicker. Objective Vital Signs Date Time Temp Pulse Resp B/P (MAP) Pulse Ox O2 Delivery O2 Flow Rate FiO2 07/19/17 12:00 98.9 65 18 107/63 (78) 98 07/19/17 08:00 98.5 84 18 98/56 (70) 98 07/19/17 04:00 98.0 83 18 102/57 (72) 97 07/19/17 01:17 18 07/19/17 00:00 98.2 78 16 102/50 (67) 96 07/18/17 20:00 91 07/18/17 20:00 98.5 88 18 92/51 (65) 96 07/18/17 19:16 Nasal Cannula 2.00 07/18/17 17:26 Nasal Cannula 2.00 21 07/18/17 16:00 100.3 94 18 100/57 (71) 93 I/O 07/18/17 07/18/17 07/18/17 07/19/17 07/19/17 07/19/17 07:00 15:00 23:00 07:00 15:00 23:00 Intake Total 360 ml 1260 ml 360 ml Output Total 650 ml 200 ml 800 ml 700 ml Balance -290 ml -200 ml 460 ml -340 ml Intake Oral 360 ml 960 ml 360 ml IV Total 300 ml Output Urine Total 350 ml 200 ml 800 ml 500 ml Stool Total 300 ml 200 ml # Bowel Movements 0 Result Diagram: 07/19/1761507/19/1716 Objective Remarks GENERAL: NAD, A&Ox3 HEAD: Normocephalic. NECK: Supple, trachea midline. No lymphadenopathy. EYES: No scleral icterus. No injection or drainage. CARDIOVASCULAR: Regular rate and rhythm without murmurs, gallops, or rubs. RESPIRATORY: Breath sounds equal bilaterally. No accessory muscle use. GASTROINTESTINAL: Abdomen soft, non-tender, nondistended. MUSCULOSKELETAL: No cyanosis, or edema. Sacral ulcer has wound VAC in place. SKIN: Warm and dry. NEURO: No focal neurological deficitis. A/P Problem List: (1) Sacral ulcer ICD Code: L98.429 - Non-pressure chronic ulcer of back with unspecified severity (2) 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 Code: Z93.2 - Ileostomy status (3) Cancer of rectum ICD Code: C20 - Malignant neoplasm of rectum Assessment and Plan Assessment and Plan 67 year-old male admitted with respiratory failure secondary to pneumonia and COPD exacerbation. Prolonged time on vent, patient now has decubitus ulcer. Status post wound VAC placement. Leukocytosis and fever present last 24 hours. Labs reviewed. No significant improvement in elevated white blood cell count. Vancomycin started. Blood cultures obtained. Monitor CBC. Acute respiratory failure Pseudomonal pneumonia COPD with exacerbation Improved Patient extubated 07/06/17 Continue bronchodilators Continue inhaled steroids Continue to mucolytic's Continue incentive spirometry Off systemic steroids A. fib with RVR Improved Follow on telemetry Continue by mouth Cardizem Continue by mouth digoxin Continue Lovenox Continue diuresis Status post left colectomy Colorectal cancer Diverting ileostomy Wedge resection of liver metastases Status post resection of the left ureter Transaminitis Ileus continue Alvimopam 12mg BID for Ileus Continue Han catheter Continue diuretics C. difficile enteritis Continue by mouth vancomycin Follow for clinical improvement Sacral ulcer Colon rectal surgery following Plastic surgery consulted Continue wound care Left upper extremity thrombosis DVT prophylaxis Lovenox Bao Stafford MD Jul 19, 2017 14:15
[2017-07-19] MEDS: VANCOMYCIN INJ 750 MG in SODIUM CHLOR 0.9% 250 ML INJ 250 ML IV SCH (14:56)
--- NOTE | 2017-07-19 16:41 | HHI.GIFU ---
Subjective Remarks Pt resting in bed. No GI complaints. c/o pain at sacrum, has wound vac. (Laine Edmonds) Objective Vitals I&O Vital Signs Date Time Temp Pulse Resp B/P (MAP) Pulse Ox O2 Delivery O2 Flow Rate FiO2 07/19/17 16:00 98.9 86 18 97/56 (70) 97 07/19/17 14:25 Nasal Cannula 2.00 21 07/19/17 12:00 98.9 65 18 107/63 (78) 98 07/19/17 08:00 98.5 84 18 98/56 (70) 98 07/19/17 04:00 98.0 83 18 102/57 (72) 97 07/19/17 01:17 18 07/19/17 00:00 98.2 78 16 102/50 (67) 96 07/18/17 20:00 91 07/18/17 20:00 98.5 88 18 92/51 (65) 96 07/18/17 19:16 Nasal Cannula 2.00 07/18/17 17:26 Nasal Cannula 2.00 21 I/O 07/18/17 07/18/17 07/18/17 07/19/17 07/19/17 07/19/17 07:00 15:00 23:00 07:00 15:00 23:00 Intake Total 360 ml 1260 ml 360 ml Output Total 650 ml 200 ml 800 ml 700 ml Balance -290 ml -200 ml 460 ml -340 ml Intake Oral 360 ml 960 ml 360 ml IV Total 300 ml Output Urine Total 350 ml 200 ml 800 ml 500 ml Stool Total 300 ml 200 ml # Bowel Movements 0 Laboratory Laboratory Tests Test 07/18/17 18:40 07/18/17 20:00 07/19/17 06:16 White Blood Count 41.9 34.3 Red Blood Count 2.70 2.97 Hemoglobin 8.1 8.6 Hematocrit 25.6 27.5 Mean Corpuscular Volume 94.9 92.9 Mean Corpuscular Hemoglobin 30.0 29.2 Mean Corpuscular Hemoglobin Concent 31.7 31.4 Red Cell Distribution Width 22.0 22.5 Platelet Count 64 58 Mean Platelet Volume 11.3 11.3 Neutrophils (%) (Auto) 94.2 94.1 Lymphocytes (%) (Auto) 1.1 1.0 Monocytes (%) (Auto) 4.6 4.7 Eosinophils (%) (Auto) 0.0 0.0 Basophils (%) (Auto) 0.1 0.2 Neutrophils # (Auto) 39.4 32.2 Lymphocytes # (Auto) 0.5 0.4 Monocytes # (Auto) 1.9 1.6 Eosinophils # (Auto) 0.0 0.0 Basophils # (Auto) 0.0 0.1 CBC Comment AUTO DIFF AUTO DIFF Differential Total Cells Counted 100 100 Neutrophils % (Manual) 88 96 Band Neutrophils % 6 3 Lymphocytes % 3 Monocytes % 3 1 Neutrophils # (Manual) 39.4 34.0 Differential Comment FINAL DIFF MANUAL FINAL DIFF MANUAL Platelet Estimate LOW LOW Platelet Morphology Comment ENLARGED ENLARGED Target Cells 1+ 1+ Urine Color DARK-YELLOW Urine Turbidity HAZY Urine pH 6.0 Urine Specific [place] 1.012 Urine Protein 30 Urine Glucose (UA) NEG Urine Ketones NEG Urine Occult Blood SMALL Urine Nitrite POS Urine Bilirubin SMALL Urine Urobilinogen LESS THAN 2.0 Urine Leukocyte Esterase LARGE Urine RBC 5 Urine WBC 123 Urine Squamous Epithelial Cells <1 Urine Amorphous Sediment RARE Urine Bacteria MANY Urine Mucus MANY Microscopic Urinalysis Comment CULTURE INDICATED Hypersegmented Polys 1+ Toxic Vacuolation PRESENT Dohle Bodies PRESENT Blood Urea Nitrogen 30 Creatinine 0.93 Random Glucose 102 Total Protein 5.2 Albumin 1.5 Calcium Level 7.8 Alkaline Phosphatase 491 Aspartate Amino Transf (AST/SGOT) 21 Alanine Aminotransferase (ALT/SGPT) 52 Total Bilirubin 5.3 Sodium Level 137 Potassium Level 3.7 Chloride Level 103 Carbon Dioxide Level 25.0 Anion Gap 9 Estimat Glomerular Filtration Rate 81 Date/Time Source Procedure Growth Status 07/02/17 18:54 Blood Peripheral Aerobic Blood Culture - Final NO GROWTH IN 5 DAYS Complete 07/02/17 18:54 Blood Peripheral Anaerobic Blood Culture - Final NO GROWTH IN 5 DAYS Complete 07/02/17 17:00 Sputum Endotracheal Gram Stain - Final Complete 07/02/17 17:00 Sputum Culture - Final Pseudomonas Aeruginosa Complete 07/18/17 20:00 Urine Clean Catch Urine Culture - Preliminary Pseudomonas Species Resulted Physical Exam HEENT: Normocephalic; atraumatic; no jaundice. CHEST: Resp. even/unlabored, diminished CARDIAC: RRR ABDOMEN: Soft, nondistended, nontender. ileostomy with small amount of liquid in ostomy bag. 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 We have evaluated him in the past for elevated LFTs. (Peak on 06/25- T. Bili 1.7, AST 1300, ALT 386, ALK Phosph 239) Previous workup- Liver US (06/24/17)---> Small volume ascites. Small right effusion. ASMA negative. Alpha 1 Antitrypsin 221. Hepatitis panel negative, LOIS neg, AMA < 20.0, Ceruloplasmin 74. AFP 3.3, Ferritin 5508. Iron saturation > 100%. He received one unit of blood on 06/18. Hfe gene negative C282Y, H63D undetected. It was thought that his previous elevation was multifactorial- related to infection, TPN, abx, and hypotension. We were consulted for worsening hyperbilirubinemia. Steroids discontinued on 06/13 due to possible cholestasis. Liver US (06/13/17) --->1. small volume ascites 2. bilateral pleural effusions 3. sludge within the gallbladder with a top normal thickness of the gallbladder wall. No sonographic evidence to suggest acute cholecystitis. MRCP 07/15/17-- 1. Ascites with small bilateral pleural effusions. 2. Small contracted gallbladder without definite stones 3. No definite common duct stone. 4. Pancreas obscured by motion. Patient denies abdominal pain. LFTs are improving. T. Bilirubin 6.4, AST 32, ALT 61, Alk Phosph 621. - Severe sepsis, CDifficile. WBC went up to 42.3 overnight. T. Max 100.7. S/P debridement of sacral decubitus ulcer. ID to see today. Oral Vanco. - CDiff. Oral vanco. - Respiratory failure, small pleural effusion. Currently on RA - NEIL. Improved - Anemia. S/P 1 unit prbc. labs from (07/14/17) 9.9/31.6. - Atrial fibrillation with RVR. Now sinus rhythm. Pt on Diltiazem. - Thrombocytopenia. S/P 1 unit platelet labs from (07/14/17) Plt 77. No CBC from this morning - Metastatic colon cancer. S/P lower anterior resection/coloanal anastomosis, resection and reanastomosis of the left ureter with ureteral anastomosis and double-J stent placement, wedge resection of hepatic metastasis, mobilization of the splenic flexure, and diverting closed loop ileostomy with Dr. Geiger and Dr. Pelayo on 05/26/17. Dr. Noel is his oncologist, but he has not seen him since his surgery - Sacral decubitus ulcer. S/P Excision sacral decubitus ulcer including skin, sq tissues, bone and muscle, placement of wound vac. (07/17/17) 07/19/17 - WBC down today. LFTs trending down. ALP iso-enzymes pending. PLAN: - await iso-enzymes - abx per ID - LYLE - Monitor LFTs - Supportive care - Avoid hepatotoxins - Avoid hypotensive episodes - Further recommendations to follow based on results of above - Patient seen and examined by Dr. Guaman and myself and this note is written on his behalf (Laine Edmonds) Physician Comments Patient seen and examined Agree with above Continue with current supportive care Monitor labs Await lab tests (Brijesh Guaman MD) Laine Edmonds Jul 19, 2017 16:41 Brijesh Guaman MD Jul 19, 2017 23:24
--- NOTE | 2017-07-19 17:47 | HHI.PR ---
Subjective Remarks Pseudomonas UTI. On Cefepime. WBC down some. Pt looks and feels well. Wound vac. ? change tomorrow Objective Vital Signs Date Time Temp Pulse Resp B/P (MAP) Pulse Ox O2 Delivery O2 Flow Rate FiO2 07/19/17 16:00 98.9 86 18 97/56 (70) 97 07/19/17 14:25 Nasal Cannula 2.00 21 07/19/17 12:00 98.9 65 18 107/63 (78) 98 07/19/17 08:00 98.5 84 18 98/56 (70) 98 07/19/17 04:00 98.0 83 18 102/57 (72) 97 07/19/17 01:17 18 07/19/17 00:00 98.2 78 16 102/50 (67) 96 07/18/17 20:00 91 07/18/17 20:00 98.5 88 18 92/51 (65) 96 07/18/17 19:16 Nasal Cannula 2.00 I/O 07/18/17 07/18/17 07/18/17 07/19/17 07/19/17 07/19/17 07:00 15:00 23:00 07:00 15:00 23:00 Intake Total 360 ml 1260 ml 360 ml Output Total 650 ml 200 ml 800 ml 700 ml Balance -290 ml -200 ml 460 ml -340 ml Intake Oral 360 ml 960 ml 360 ml IV Total 300 ml Output Urine Total 350 ml 200 ml 800 ml 500 ml Stool Total 300 ml 200 ml # Bowel Movements 0 Result Diagram: 07/19/1761507/19/1716 Objective Remarks VS-S Abd: Soft. Flat. Wound healed. Stoma working.Stools thick . I&Os: OK Labs: WBC down to 34K Assessment and Plan Assessment and Plan Decubitus-Debridement and wound vac placed Deconditioned-Not really a candidate for NHP. Needs Rehab. Cannot even get OOB at this time. OOB. Will need inpatient rehab Needs assist in ordering food and eating when not present To Rehab anytime when OK with all consultants UTI on Cefepime. Luca Geiger MD Jul 19, 2017 17:47
[2017-07-19] MEDS: VIIBRYD 40 MG PO SCH (20:33)
[2017-07-20] VITALS (7 sets, daily range): BP systolic 104–119; BP diastolic 53–60; PULSE 77–102; RESP 16–18; TEMP 97.9–98.3; O2SAT 95–98
[2017-07-20] MEDS: DILTIAZEM HCL 60 MG TAB PO SCH ×5 (00:01→23:23)
[2017-07-20] MEDS: metroNIDAZOLE 500 MG TAB PO SCH ×4 (00:01→23:23)
[2017-07-20] MEDS: oxyCODONE/ACETAMINOPHEN 10 MG/325 MG TAB PO PRN ×4 (00:02→23:23)
[2017-07-20] MEDS: VANCOMYCIN INJ 750 MG in SODIUM CHLOR 0.9% 250 ML INJ 250 ML IV SCH ×2 (02:55→14:18)
[2017-07-20] MEDS: INSULIN ASPART SUPPLEMENTAL SCALE SQ SCH ×4 (08:00→21:00)
[2017-07-20] MEDS: DIGOXIN 0.125 MG TAB PO SCH (08:17)
[2017-07-20] MEDS: PANTOPRAZOLE SOD 40 MG DELAYED RELEASE TAB PO SCH (08:17)
[2017-07-20] MEDS: BUDESONIDE-FORMOTEROL 160/4.5 MCG INHALER INH SCH ×2 (09:00→21:00)
[2017-07-20] MEDS: CEFEPIME INJ 2,000 MG in SODIUM CHLORIDE 0.9% INJ 100 ML IV SCH ×2 (09:30→21:47)
[2017-07-20] MEDS: ENOXAPARIN SODIUM 40 MG/0.4 ML SYRINGE SQ SCH (09:30)
[2017-07-20] MEDS: POTASSIUM CHLORIDE 25 MEQ EFFERVESCENT TAB PO SCH (09:31)
[2017-07-20] MEDS: VANCOMYCIN 500 MG VIAL (FOR ORAL USE ONLY) PO SCH ×4 (09:31→21:47)
--- NOTE | 2017-07-20 09:58 | HHI.PR ---
Subjective Remarks Pseudomonas UTI. On Cefepime. WBC down some. Pt looks and feels well. Wound vac. ? change today Objective Vital Signs Date Time Temp Pulse Resp B/P (MAP) Pulse Ox O2 Delivery O2 Flow Rate FiO2 07/20/17 09:34 97 Nasal Cannula 2.00 07/20/17 08:00 98.0 77 17 109/57 (74) 98 07/20/17 04:00 98.1 77 16 104/53 (70) 97 07/20/17 00:00 98.3 79 18 110/57 (74) 98 07/19/17 20:49 Nasal Cannula 2.00 07/19/17 20:06 82 07/19/17 20:00 98.6 90 16 104/51 (68) 97 07/19/17 17:46 97 Nasal Cannula 2.00 07/19/17 16:00 98.9 86 18 97/56 (70) 97 07/19/17 14:25 Nasal Cannula 2.00 21 07/19/17 12:00 98.9 65 18 107/63 (78) 98 I/O 07/19/17 07/19/17 07/19/17 07/20/17 07/20/17 07/20/17 07:00 15:00 23:00 07:00 15:00 23:00 Intake Total 360 ml 1060 ml 257.5 ml Output Total 700 ml 500 ml 800 ml Balance -340 ml 560 ml -542.5 ml Intake Oral 360 ml 960 ml IV Total 100 ml 257.5 ml Output Urine Total 500 ml 500 ml 800 ml Stool Total 200 ml # Bowel Movements 0 Result Diagram: 07/19/1716 07/19/17 0616 Objective Remarks VS-S Abd: Soft. Flat. Wound healed. Stoma working.Stools thick . I&Os: OK Labs: WBC pending Assessment and Plan Assessment and Plan Decubitus-Debridement and wound vac placed Deconditioned-Not really a candidate for NHP. Needs Rehab. Cannot even get OOB at this time. OOB. Will need inpatient rehab Needs assist in ordering food and eating when not present To Rehab anytime when OK with all consultants UTI on Cefepime Ask Plastic Surgery to change wound vac and reeval wound Luca Geiger MD Jul 20, 2017 09:58
[2017-07-20 10:47] LABS: BASOPHIL # 0.1 TH/MM3 (0-0.2); BASOPHIL % 0.6 % (0.0-2.0); EOSINOPHIL # 0.1 TH/MM3 (0-0.4); EOSINOPHIL % 0.4 % (0.0-4.0); HEMATOCRIT 25.9 % (39.0-51.0); LYMPH % 4.3 % (9.0-44.0); LYMPHOCYTE # 0.9 TH/MM3 (1.0-4.8); MEAN CELL VOLUME 93.6 FL (80.0-100.0); MEAN CORPUSCULAR HEMOGLOBIN 29.6 PG (27.0-34.0); MEAN CORPUSCULAR HGB CONC 31.6 % (32.0-36.0); MONO % 5.8 % (0.0-8.0); NEUT % 88.9 % (16.0-70.0); PLATELET COUNT 48 TH/MM3 (150-450); RED BLOOD COUNT 2.77 MIL/MM3 (4.50-5.90); WHITE BLOOD COUNT 20.3 TH/MM3 (4.0-11.0)
[2017-07-20 10:49] LABS: HEMO FLAGS AUTO DIFF
[2017-07-20 11:16] LABS: ALT (GPT) 37 U/L (12-78); ANION GAP 7 MEQ/L (5-15); AST (GOT) 18 U/L (15-37); BICARBONATE 24.7 MEQ/L (21.0-32.0); BLOOD UREA NITROGEN 29 MG/DL (7-18); CHLORIDE 104 MEQ/L (98-107); GLOMERULAR FILTRATION RATE 82 ML/MIN (>89); POTASSIUM 4.1 MEQ/L (3.5-5.1); SODIUM (NA) 136 MEQ/L (136-145)
[2017-07-20 11:18] LABS: ALKALINE PHOSPHATASE 393 U/L (45-117); TOTAL BILIRUBIN ADULT 4.7 MG/DL (0.2-1.0)
--- NOTE | 2017-07-20 12:05 | PD.WCN.NOT ---
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 2. Please soak wound for 10 minutes with 0.125% dakins solution with VAC dressing changes. 3. continue to change wound VAC dressing Tuesday, Tuesday and Tuesday with settings at 125 mm/hg continuous low suction. Additional Information: Patient seen for assistance with VAC dressing change. Removed VAC dressing in place to reveal full thickness wound to sacrum with ~40% adherent yellow slough , ~10% bone, ~20% facia, and ~30% muscle tissue. Wound is s/p debridement with wound VAC application is OR.Cleansed wound with normal saline. and applied temporary wet to dry dressing. Spoke with Doctor Oleary regarding presence of ~ 40% yellow adherent slough and wound VAC contraindications. Doctor Oleary still wants wound VAC applied. Doctor Oleary gave telephone order for Dakin's 0.125% soaks to be applied with VAC dressing changes.Will apply VAC dressing after 10 minute Dakin soak to wound on sacrum. Ostomy Type: Ileostomy Complete: Other (supplies ordered in size 1 3/4" moldable for appliance change ) Yasmine Aragon [facility] Jul 20, 2017 12:05
[2017-07-20 12:19] LABS: BANDS 1 % (0-6); BASOPHILS 1 % (0-2); EOSINOPHILS 1 % (0-4); NEUTROPHIL # MANUAL DIFF 18.9 TH/MM3 (1.8-7.7); PLATELET ESTIMATE SMEAR LOW (NORMAL); PLATELET MORPHOLOGY NORMAL (NORMAL); POLYS (SEG NEUTROPHILS) 92 % (16-70); SCAN/DIFF FINAL DIFF MANUAL; TOXIC VACUOLATION PRESENT (NONE SEEN); WBC DIFF SAMPLE 100
[2017-07-20 12:21] LABS: HYPERSEGMENTED POLYS 1+ (NORMAL)
[2017-07-20] MEDS ORDERED: HYDROmorphone HCL PF 1 MG/ML VIAL IV PUSH ONE (12:30)
[2017-07-20] MEDS: SODIUM HYPOCHLORITE 0.125% 500 ML BTL TOPICAL SCH (13:00)
--- NOTE | 2017-07-20 15:09 | HHI.IDPN ---
Note Infectious Disease Note Patient is awake and alert. Distressed by pain. Complains of pain in the sacrum. WBC lower. Temp lower. Urine culture has gram negative sabrina. Admitted to the hospital with weakness, abdominal pain and nausea. The patient is status post anterior resection of colon and rectal areas and anastomosis along with a diverting ileostomy and also resection of a segment of left ureter with ureteral anastomosis and double-J stent placement three weeks prior. PAST MEDICAL HISTORY: 1. Hypertension. 2. Left knee surgery. 3. Metastatic colon cancer status post resection and colo-anal anastomosis and also resection and re-anastomosis of the left ureter with double-J stent placement. ALLERGIES: CODEINE. ABX: Vancomycin PO. Cefepime. Vancomyicn IV. SOCIAL HISTORY: . Positive tobacco use. No alcohol. No illicit drug use. OBJECTIVE: Vital Signs Date Time Temp Pulse Resp B/P (MAP) Pulse Ox O2 Delivery O2 Flow Rate FiO2 07/19/17 12:00 98.9 65 18 107/63 (78) 98 07/19/17 08:00 98.5 84 18 98/56 (70) 98 07/19/17 04:00 98.0 83 18 102/57 (72) 97 07/19/17 01:17 18 07/19/17 00:00 98.2 78 16 102/50 (67) 96 07/18/17 20:00 91 07/18/17 20:00 98.5 88 18 92/51 (65) 96 07/18/17 19:16 Nasal Cannula 2.00 07/18/17 17:26 Nasal Cannula 2.00 21 07/18/17 16:00 100.3 94 18 100/57 (71) 93 Laboratory Tests Test 07/18/17 18:40 07/19/17 06:16 07/20/17 10:14 White Blood Count 41.9 TH/MM3 34.3 TH/MM3 20.3 TH/MM3 Red Blood Count 2.70 MIL/MM3 2.97 MIL/MM3 2.77 MIL/MM3 Hemoglobin 8.1 GM/DL 8.6 GM/DL 8.2 GM/DL Hematocrit 25.6 % 27.5 % 25.9 % Mean Corpuscular Volume 94.9 FL 92.9 FL 93.6 FL Mean Corpuscular Hemoglobin 30.0 PG 29.2 PG 29.6 PG Mean Corpuscular Hemoglobin Concent 31.7 % 31.4 % 31.6 % Red Cell Distribution Width 22.0 % 22.5 % 23.0 % Platelet Count 64 TH/MM3 58 TH/MM3 48 TH/MM3 Mean Platelet Volume 11.3 FL 11.3 FL 11.2 FL Neutrophils (%) (Auto) 94.2 % 94.1 % 88.9 % Lymphocytes (%) (Auto) 1.1 % 1.0 % 4.3 % Monocytes (%) (Auto) 4.6 % 4.7 % 5.8 % Eosinophils (%) (Auto) 0.0 % 0.0 % 0.4 % Basophils (%) (Auto) 0.1 % 0.2 % 0.6 % Neutrophils # (Auto) 39.4 TH/MM3 32.2 TH/MM3 18.0 TH/MM3 Lymphocytes # (Auto) 0.5 TH/MM3 0.4 TH/MM3 0.9 TH/MM3 Monocytes # (Auto) 1.9 TH/MM3 1.6 TH/MM3 1.2 TH/MM3 Eosinophils # (Auto) 0.0 TH/MM3 0.0 TH/MM3 0.1 TH/MM3 Basophils # (Auto) 0.0 TH/MM3 0.1 TH/MM3 0.1 TH/MM3 CBC Comment AUTO DIFF AUTO DIFF AUTO DIFF Differential Total Cells Counted 100 100 100 Neutrophils % (Manual) 88 % 96 % 92 % Band Neutrophils % 6 % 3 % 1 % Lymphocytes % 3 % 1 % Monocytes % 3 % 1 % 4 % Neutrophils # (Manual) 39.4 TH/MM3 34.0 TH/MM3 18.9 TH/MM3 Differential Comment FINAL DIFF MANUAL FINAL DIFF MANUAL FINAL DIFF MANUAL Platelet Estimate LOW LOW LOW Platelet Morphology Comment ENLARGED ENLARGED NORMAL Target Cells 1+ 1+ Hypersegmented Polys 1+ 1+ Toxic Vacuolation PRESENT PRESENT Dohle Bodies PRESENT Eosinophils % 1 % Basophils % 1 % Laboratory Tests Test 07/19/17 06:16 07/20/17 10:14 Blood Urea Nitrogen 30 MG/DL 29 MG/DL Creatinine 0.93 MG/DL 0.92 MG/DL Random Glucose 102 MG/DL 141 MG/DL Total Protein 5.2 GM/DL 5.0 GM/DL Albumin 1.5 GM/DL 1.4 GM/DL Calcium Level 7.8 MG/DL 7.5 MG/DL Alkaline Phosphatase 491 U/L 393 U/L Aspartate Amino Transf (AST/SGOT) 21 U/L 18 U/L Alanine Aminotransferase (ALT/SGPT) 52 U/L 37 U/L Total Bilirubin 5.3 MG/DL 4.7 MG/DL Sodium Level 137 MEQ/L 136 MEQ/L Potassium Level 3.7 MEQ/L 4.1 MEQ/L Chloride Level 103 MEQ/L 104 MEQ/L Carbon Dioxide Level 25.0 MEQ/L 24.7 MEQ/L Anion Gap 9 MEQ/L 7 MEQ/L Estimat Glomerular Filtration Rate 81 ML/MIN 82 ML/MIN Microbiology Date/Time Source Procedure Growth Status 07/19/17 19:10 Blood Peripheral Aerobic Blood Culture - Preliminary NO GROWTH IN 1 DAY Resulted 07/19/17 19:10 Blood Peripheral Anaerobic Blood Culture - Preliminary NO GROWTH IN 1 DAY Resulted 07/18/17 20:00 Urine Clean Catch Urine Culture - Preliminary Pseudomonas Species Resulted Microbiology Date/Time Source Procedure Growth Status 07/02/17 18:54 Blood Peripheral Aerobic Blood Culture - Preliminary NO GROWTH IN 3 DAYS Resulted 07/02/17 18:54 Blood Peripheral Anaerobic Blood Culture - Preliminary NO GROWTH IN 3 DAYS Resulted 07/02/17 18:49 Blood Peripheral Aerobic Blood Culture - Preliminary NO GROWTH IN 3 DAYS Resulted 07/02/17 18:49 Blood Peripheral Anaerobic Blood Culture - Preliminary NO GROWTH IN 3 DAYS Resulted 07/02/17 17:00 Sputum Endotracheal Gram Stain - Final Complete 07/02/17 17:00 Sputum Culture - Final Pseudomonas Aeruginosa Complete 07/02/17 15:45 Urine Clean Catch Urine Culture - Final Pseudomonas Aeruginosa Complete IMAGING: Chest X-Ray 07/18/17 0000 Signed Impressions: Service Date/Time: Tuesday, July 18, 2017 16:30 - CONCLUSION: Improvement Minimal consolidation remain right base. Alfredo Lora MD FACR Chest X-Ray 07/10/17 0600 Signed Impressions: Service Date/Time: Monday, July 10, 2017 04:39 - CONCLUSION: No significant change with persistent bilateral pulmonary parenchymal opacity with lower lung zone predominance likely worsening pulmonary edema and bilateral pleural effusions. Luis Armando Michel MD Chest X-Ray 07/06/17 0600 Signed Impressions: Service Date/Time: Thursday, July 06, 2017 03:52 - CONCLUSION: No significant interval change Luca Trinidad MD PHYSICAL EXAMINATION: GENERAL: No acute distress. HEENT: No icterus. Oropharynx with dry mucosa. NECK: Supple. LUNGS: Decreased breath sounds. HEART: Regular S1-S2 without murmurs, rubs or gallops. ABDOMEN: Positive bowel sounds. Soft. Not tender. Sacrum decubitus wound clean. EXTREMITIES: No clubbing or cyanosis, edema. SKIN: No rash. NEUROLOGIC: Nonfocal. IMPRESSION: 1. Post treatment for Severe sepsis/ Bandemia. Status post recent surgery for rectal cancer and recent ureteral resection and double J ureteral stent. 2. C difficile colitis. Pseudomembranous enteritis/sepsis. 3. Acute respiratory failure. Extubated. 4. Pseudomonas pneumonia and UTI. Treated and improved. 5. Leukocytosis. Improved to normal then elevated again. WBC Decreasing. 6. UTI - Pseudomonas. RECOMMENDATIONS: 1. Continue PO Vancomycin at 250 mg. 2. Continue Cefepime, Flagyl, Vancomycin. 3. Follow cultures. 4. Monitor WBC. El Espinoza MD Jul 20, 2017 15:08
--- NOTE | 2017-07-20 15:40 | PD.WCN.NOT ---
Wound Consult Description: Wound VAC dressing change. Communicated with: MELITON alvarez Recommendation: 1.Please reposition patient Q2H from left to right sides only, limiting time on back due to stage 4 pressure injury. 2. Please soak wound for 10 minutes with 0.125% dakins solution with VAC dressing changes. 3. continue to change wound VAC dressing Tuesday, Tuesday and Tuesday with settings at 125 mm/hg continuous low suction. Neg Pressure Wound Therapy Wound Location Wound Location: Sacrum Wound Description Length: 6cm Width: 3cm Depth: 1.8cm Underminin to 3 o'clock. Deepest at 12 o'clock measuring 2.4cm Wound bed appearance: Full thickness wound to sacrum with ~40% adherent yellow slough, ~10% bone, ~20 % facia, and ~30% muscle tissue. Wound has minimal sero-sanguinous drainage that is active and is without odor Periwound appearance: Other (Slight blanchable erythema) Settings Suction: 125 mmHg, Continuous Intensity: Low Other Information: Bridged, Windowpaned, Mushroomed Foam type: Black Number of pieces: 1 Additonal Information Patient seen for assistance with VAC dressing change. Removed dakin's soaked gauze from wound bed after Meliton Aleman Soaked sacral wound for 10 minutes. Skin prep was applied to periwound before window paning wound with VAC drape and bridging VAC drape to to L anterior thigh.Black VAC granufoam was then cut in to long strip and coiled in to wound bed to reach undermined areas in a cinnamon roll fashion. Bridged one long strip of granufoam from wound bed to L anterior thigh. Stoma paste was applied to gluteal cleft to seal VAC dressing. Applied Sensi trac pad with attached mushroom cap of black granufoam over bridged granufoam.Covered all exposed VAC granufoam with VAC drape. Wound Vac suctioning at 125 mm/hg continuous low suction with low leak rate. Patient is comfortable positioned to R side. Lowered bed to a safe height before leaving room. Next VAC dressing change is due on Tuesday07/22/2017 Yasmine Aragon [facility] Jul 20, 2017 15:40
--- NOTE | 2017-07-20 19:28 | HHI.PR ---
Subjective Remarks Pseudomonas is present and urine. Possible colonization. Awaiting sensitivities. Patient's white blood cell count has decreased to time. No further fevers. Objective Vital Signs Date Time Temp Pulse Resp B/P (MAP) Pulse Ox O2 Delivery O2 Flow Rate FiO2 07/20/17 16:00 97.9 98 17 119/58 (78) 95 07/20/17 12:00 98.0 90 17 111/60 (77) 96 07/20/17 09:34 97 Nasal Cannula 2.00 07/20/17 08:00 98.0 77 17 109/57 (74) 98 07/20/17 08:00 102 07/20/17 08:00 96 Nasal Cannula 2.00 21 07/20/17 04:00 98.1 77 16 104/53 (70) 97 07/20/17 00:00 98.3 79 18 110/57 (74) 98 07/19/17 20:49 Nasal Cannula 2.00 07/19/17 20:06 82 07/19/17 20:00 98.6 90 16 104/51 (68) 97 I/O 07/19/17 07/19/17 07/19/17 07/20/17 07/20/17 07/20/17 07:00 15:00 23:00 07:00 15:00 23:00 Intake Total 360 ml 1060 ml 257.5 ml 480 ml Output Total 700 ml 500 ml 800 ml 800 ml Balance -340 ml 560 ml -542.5 ml -320 ml Intake Oral 360 ml 960 ml 480 ml IV Total 100 ml 257.5 ml Output Urine Total 500 ml 500 ml 800 ml 400 ml Stool Total 200 ml 400 ml # Bowel Movements 0 Result Diagram: 07/20/17 1014 07/20/17 1014 Objective Remarks GENERAL: NAD, A&Ox3 HEAD: Normocephalic. NECK: Supple, trachea midline. No lymphadenopathy. EYES: No scleral icterus. No injection or drainage. CARDIOVASCULAR: Regular rate and rhythm without murmurs, gallops, or rubs. RESPIRATORY: Breath sounds equal bilaterally. No accessory muscle use. GASTROINTESTINAL: Abdomen soft, non-tender, nondistended. MUSCULOSKELETAL: No cyanosis, or edema. Sacral ulcer has wound VAC in place. SKIN: Warm and dry. NEURO: No focal neurological deficitis. A/P Problem List: (1) Sacral ulcer ICD Code: L98.429 - Non-pressure chronic ulcer of back with unspecified severity (2) 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 Code: Z93.2 - Ileostomy status (3) Cancer of rectum ICD Code: C20 - Malignant neoplasm of rectum Assessment and Plan Assessment and Plan 67 year-old male admitted with respiratory failure secondary to pneumonia and COPD exacerbation. Prolonged time on vent, patient now has decubitus ulcer. Status post wound VAC placement. Leukocytosis and fever present last 24 hours. Labs reviewed. White blood cell count is improving. Positive urinalysis with Pseudomonas. Continue to monitor cultures for sensitivities. Acute respiratory failure Pseudomonal pneumonia COPD with exacerbation Improved Patient extubated 07/06/17 Continue bronchodilators Continue inhaled steroids Continue to mucolytic's Continue incentive spirometry Off systemic steroids A. fib with RVR Improved Follow on telemetry Continue by mouth Cardizem Continue by mouth digoxin Continue Lovenox Continue diuresis Status post left colectomy Colorectal cancer Diverting ileostomy Wedge resection of liver metastases Status post resection of the left ureter Transaminitis Ileus continue Alvimopam 12mg BID for Ileus Continue Han catheter Continue diuretics C. difficile enteritis Continue by mouth vancomycin Follow for clinical improvement Sacral ulcer Colon rectal surgery following Plastic surgery consulted Continue wound care Left upper extremity thrombosis DVT prophylaxis Lovenox Bao Stafford MD Jul 20, 2017 19:28
[2017-07-20] MEDS: VIIBRYD 40 MG PO SCH (21:48)
[2017-07-21] VITALS: BP 114/56; PULSE 100; RESP 20; TEMP 98.3; O2SAT 94
[2017-07-21] MEDS ORDERED: PHARMACY ORDERED LAB ONE (01:45)
[2017-07-21] MEDS: VANCOMYCIN INJ 750 MG in SODIUM CHLOR 0.9% 250 ML INJ 250 ML IV SCH (03:19)
[2017-07-21 04:00] VITALS: BP 116/56; PULSE 76; RESP 18; TEMP 98.1; O2SAT 95
[2017-07-21] MEDS: DILTIAZEM HCL 60 MG TAB PO SCH ×4 (06:12→23:14)
[2017-07-21 08:00] VITALS: BP 113/55; PULSE 80; RESP 18; TEMP 98.2; O2SAT 95
[2017-07-21] MEDS: INSULIN ASPART SUPPLEMENTAL SCALE SQ SCH ×4 (08:00→20:19)
--- NOTE | 2017-07-21 08:46 | PD.ONC.PN ---
Subjective Subjective Remarks Patient seen and examined, vital signs, medications, labs and systems management consultant notes reviewed. The patient's is at bedside and she is quite irate and frustrated at various aspects of the care being rendered. She tells me the patient has not been eating because he is unable to handle the utensils or the tray if he is unable to feed himself. The trays are going back on touched and she wants to know why nursing staff or nursing assistance cannot help feed him when she's not around. Additionally she is frustrated at the lack of progress with reference to the sacral decubitus ulcer, she is frustrated at not having been able to communicate her meet with the wound care surgeon who debrided the sacral decubitus ulcer and also frustrated at the lack of communication between the wound care nurse and the wound care surgeon. Additionally she is concerned about her 's pain control. In this frustrated with the overall lack of progress. Subjectively the patient endorses sacral pain, he reports generalized weakness and tells me that he is in fact hungry and wants seed but is just unable to feed himself. He tells me when he needs help ease unable to locate the call button to call for help. Objective Data Date Time Temp Pulse Resp B/P (MAP) Pulse Ox O2 Delivery O2 Flow Rate FiO2 07/21/17 04:00 98.1 76 18 116/56 (76) 95 07/21/17 00:00 98.3 100 20 114/56 (75) 94 07/20/17 21:40 96 Room Air 07/20/17 20:00 98.0 92 18 107/59 (75) 96 07/20/17 20:00 89 07/20/17 16:00 97.9 98 17 119/58 (78) 95 07/20/17 12:00 98.0 90 17 111/60 (77) 96 07/20/17 09:34 97 Nasal Cannula 2.00 07/21/17 07/21/17 07/21/17 07:00 15:00 23:00 Intake Total 240 ml Output Total 420 ml Balance -180 ml Result Diagram: 07/20/17 1014 07/20/17 1014 Laboratory Results Laboratory Tests Test 07/20/17 10:14 07/21/17 03:10 White Blood Count 20.3 TH/MM3 Red Blood Count 2.77 MIL/MM3 Hemoglobin 8.2 GM/DL Hematocrit 25.9 % Mean Corpuscular Volume 93.6 FL Mean Corpuscular Hemoglobin 29.6 PG Mean Corpuscular Hemoglobin Concent 31.6 % Red Cell Distribution Width 23.0 % Platelet Count 48 TH/MM3 Mean Platelet Volume 11.2 FL Neutrophils (%) (Auto) 88.9 % Lymphocytes (%) (Auto) 4.3 % Monocytes (%) (Auto) 5.8 % Eosinophils (%) (Auto) 0.4 % Basophils (%) (Auto) 0.6 % Neutrophils # (Auto) 18.0 TH/MM3 Lymphocytes # (Auto) 0.9 TH/MM3 Monocytes # (Auto) 1.2 TH/MM3 Eosinophils # (Auto) 0.1 TH/MM3 Basophils # (Auto) 0.1 TH/MM3 CBC Comment AUTO DIFF Differential Total Cells Counted 100 Neutrophils % (Manual) 92 % Band Neutrophils % 1 % Lymphocytes % 1 % Monocytes % 4 % Eosinophils % 1 % Basophils % 1 % Neutrophils # (Manual) 18.9 TH/MM3 Differential Comment FINAL DIFF MANUAL Hypersegmented Polys 1+ Toxic Vacuolation PRESENT Platelet Estimate LOW Platelet Morphology Comment NORMAL Blood Urea Nitrogen 29 MG/DL Creatinine 0.92 MG/DL Random Glucose 141 MG/DL Total Protein 5.0 GM/DL Albumin 1.4 GM/DL Calcium Level 7.5 MG/DL Alkaline Phosphatase 393 U/L Aspartate Amino Transf (AST/SGOT) 18 U/L Alanine Aminotransferase (ALT/SGPT) 37 U/L Total Bilirubin 4.7 MG/DL Sodium Level 136 MEQ/L Potassium Level 4.1 MEQ/L Chloride Level 104 MEQ/L Carbon Dioxide Level 24.7 MEQ/L Anion Gap 7 MEQ/L Estimat Glomerular Filtration Rate 82 ML/MIN Vancomycin Level Trough 22.5 MCG/ML Culture Results Microbiology Date/Time Source Procedure Growth Status 07/19/17 19:10 Blood Peripheral Aerobic Blood Culture - Preliminary NO GROWTH IN 1 DAY Resulted 07/19/17 19:10 Blood Peripheral Anaerobic Blood Culture - Preliminary NO GROWTH IN 1 DAY Resulted 07/18/17 20:00 Urine Clean Catch Urine Culture - Preliminary Pseudomonas Species Resulted Administered Medications Medications (Trade) Dose Ordered Sig/[place] Route PRN Reason Start Time Stop Time Status Last Admin Dose Admin Ondansetron HCl (Zofran Inj) 4 mg Q4H PRN IV PUSH NAUSEA/VOMITING 06/17/17 22:00 06/18/17 09:45 Miscellaneous Information Patient in critical care unit? Ass... Q361D .XX 06/18/17 05:45 06/18/17 05:45 Albuterol Sulfate (Albuterol Neb) 2.5 mg Q2HR NEB PRN NEB DYSPNEA 06/29/17 14:30 07/05/17 08:44 Potassium Bicarb/ Potassium Chloride (K-Lyte Cl Eff) 25 meq DAILY PO 07/05/17 12:00 07/20/17 09:31 Diltiazem HCl (Cardizem) 60 mg Q6HR PO 07/05/17 12:45 07/21/17 06:12 Collagenase (Santyl Oint) 1 applic DAILY TOPICAL 07/07/17 09:00 07/16/17 09:00 Budesonide/ Formoterol Fumarate (Symbicort 160-4.5 Inh) 1 puff Q12HR INH 07/07/17 09:00 07/20/17 09:00 Enoxaparin Sodium (Lovenox Inj) 40 mg Q24H SQ 07/09/17 09:00 07/20/17 09:30 Pantoprazole Sodium (Protonix) 40 mg DAILY PO 07/11/17 09:00 07/20/17 08:17 Digoxin (Lanoxin) 0.125 mg DAILY PO 07/11/17 09:00 07/20/17 08:17 Insulin Aspart (NovoLOG SUPPLEMENTAL SCALE) 1 ACHS SQ 07/11/17 17:00 07/19/17 20:33 Vancomycin HCl (VANCOMYCIN for oral use only) 250 mg QID PO 07/13/17 18:00 08/04/17 18:00 07/20/17 21:47 Patient Own Medication PT OWN MED: VIIB... HS PO 07/15/17 21:00 07/20/17 21:48 Cefepime HCl 2000 mg/Sodium Chloride 100 ml @ 200 mls/hr Q12H IV 07/18/17 20:00 07/20/17 21:47 Metronidazole (Flagyl) 500 mg Q8H PO 07/18/17 16:00 07/20/17 23:23 Vancomycin HCl 750 mg/Sodium Chloride 257.5 ml @ 250 mls/hr Q12H IV 07/19/17 14:00 07/21/17 03:19 Oxycodone/ Acetaminophen (Percocet 10-325 Mg) 1 tab Q6H PRN PO Pain 7 to 10 07/19/17 14:15 07/20/17 23:23 Sodium Hypochlorite (Dakin'S 0.125% Soln) 500 ml MoWeFr TOPICAL 07/20/17 13:00 07/20/17 13:00 Objective Remarks GENERAL APPEARANCE: Mr. Armendariz is a middle-aged/elderly male. He is laying in bed. He is awake and alert responsive. He is able to speak in full sentences. HEENT: Head atraumatic, normocephalic. Conjunctivae are pale. Sclerae are anicteric, EOMI, PERRLA, oral exam no pharyngeal erythema. NECK: No palpable cervical or supraclavicular lymphadenopathy. RESPIRATORY: Good air movement bilaterally. Coarse conducted breath sounds. He has prolonged expiratory phase. He is initiating multiple spontaneous breaths. CARDIOVASCULAR: Irregular, tachycardiac, S1 S2, no obvious murmurs, rubs or gallops. ABDOMEN: The belly is soft. An ileostomy bag is noted containing liquid stools. A well-healing laparotomy incision in the midline is appreciated. The abdomen does not appear to be distended, there appears to be no significant increase in tympany on percussion. There are no signs of acute abdomen. LOWER EXTREMITIES: No pretibial edema, no calf tenderness. Upper extremities: Right upper extremity with edema. MUSCULOSKELETAL: Generalized muscle atrophy and generalized weakness without focal deficits. BOILER CONTROL ROOM OPERATOR: No spontaneous movement of the limbs. Assessment/Plan Assessment Mr. Armendariz is a 67-year-old male who was recently diagnosed with metastatic adenocarcinoma of the rectosigmoid colon and had resection of a metastatic deposit to the liver. He is status post primary surgical resection (3-4 weeks ago) as well as wedge resection of a metastatic deposit to the liver and now has C difficile colitis. He has thrombocytopenia with thrombosis to the cephalic and brachial veins. Admitted to colorectal surgery service initially for weakness/abdominal pain. Then 06/18 became tachy and hypotensive. had elevated lactic acid and bandemia. sepsis suspected. Salesperson [employer] was consulted. on 06/20 was intubated d /t hemodynamic instability. platelets also started falling on 06/20. Plan 1. Thrombocytopenia: likely d/t sepsis/DIC there may have been an element of ITP as well given the improvement while he was on corticosteroids. Platelet counts continued to decrease, now down to 48,000. Urine cultures are positive for Pseudomonas. I will resume low-dose prednisone at 20 mg once a day. 2. Metastatic colon cancer: will discuss after current issues resolve because he is presently not a candidate for palliative therapy given his acute medical issues and overall physical debility. 3. Left upper extremity thrombosis involving the cephalic and basilic veins on the L side, noted, asymptomatic, will repeat an US doppler if his extremity is more swollen or symptomatic. He is on prophylactic dose anticoagulation with lovenox. I spoke today to the patient's nurse and the floors charge nurse. I have asked the charge nurse to talk to the patient's is a patient's has some very valid concerns regarding nutrition and bedside assistance. Of also asked the charge nurse to [place] communication between the wound care nurse and wound care surgeon. Faraz Ryan MD Jul 21, 2017 08:46
[2017-07-21] MEDS: COLLAGENASE OINT 30 GM TUBE TOPICAL SCH (09:00)
[2017-07-21] MEDS: PANTOPRAZOLE SOD 40 MG DELAYED RELEASE TAB PO SCH (09:28)
[2017-07-21] MEDS: metroNIDAZOLE 500 MG TAB PO SCH (09:28)
[2017-07-21] MEDS: VANCOMYCIN 500 MG VIAL (FOR ORAL USE ONLY) PO SCH ×4 (09:28→20:08)
[2017-07-21] MEDS: ENOXAPARIN SODIUM 40 MG/0.4 ML SYRINGE SQ SCH (09:28)
[2017-07-21] MEDS: POTASSIUM CHLORIDE 25 MEQ EFFERVESCENT TAB PO SCH (09:28)
[2017-07-21] MEDS: DIGOXIN 0.125 MG TAB PO SCH (09:29)
[2017-07-21] MEDS: CEFEPIME INJ 2,000 MG in SODIUM CHLORIDE 0.9% INJ 100 ML IV SCH ×2 (09:29→20:01)
[2017-07-21] MEDS: BUDESONIDE-FORMOTEROL 160/4.5 MCG INHALER INH SCH ×2 (09:30→20:11)
[2017-07-21] MEDS: predniSONE 20 MG TAB PO SCH (09:30)
[2017-07-21] MEDS: oxyCODONE/ACETAMINOPHEN 5 MG/325 MG TAB PO PRN (09:31)
[2017-07-21 10:58] LABS: AUTOMATED NEUTROPHIL # 16.3 TH/MM3 (1.8-7.7); BASOPHIL % 0.2 % (0.0-2.0); EOSINOPHIL % 0.3 % (0.0-4.0); HEMATOCRIT 29.2 % (39.0-51.0); LYMPH % 2.4 % (9.0-44.0); LYMPHOCYTE # 0.4 TH/MM3 (1.0-4.8); MEAN CELL VOLUME 93.5 FL (80.0-100.0); MEAN CORPUSCULAR HEMOGLOBIN 29.2 PG (27.0-34.0); MEAN CORPUSCULAR HGB CONC 31.2 % (32.0-36.0); MONO % 6.9 % (0.0-8.0); NEUT % 90.2 % (16.0-70.0); PLATELET COUNT 58 TH/MM3 (150-450); RED BLOOD COUNT 3.12 MIL/MM3 (4.50-5.90); RED CELL DISTRIBUTION WIDTH 22.7 % (11.6-17.2)
[2017-07-21 11:05] LABS: HEMO FLAGS AUTO DIFF
[2017-07-21 11:29] LABS: ANION GAP 6 MEQ/L (5-15); AST (GOT) 21 U/L (15-37); BICARBONATE 23.3 MEQ/L (21.0-32.0); BLOOD UREA NITROGEN 25 MG/DL (7-18); CHLORIDE 106 MEQ/L (98-107); GLOMERULAR FILTRATION RATE 80 ML/MIN (>89); POTASSIUM 4.2 MEQ/L (3.5-5.1); SODIUM (NA) 135 MEQ/L (136-145)
[2017-07-21 11:30] LABS: ALT (GPT) 34 U/L (12-78)
[2017-07-21 11:32] LABS: ALKALINE PHOSPHATASE 413 U/L (45-117); TOTAL BILIRUBIN ADULT 5.6 MG/DL (0.2-1.0)
[2017-07-21 12:00] VITALS: BP 118/59; PULSE 77; RESP 18; TEMP 98.2; O2SAT 97
--- NOTE | 2017-07-21 12:14 | HHI.IDPN ---
Note Infectious Disease Note Patient feels fatigued. Poor appetite. Complains of pain in the sacrum. WBC lower. Temp lower. Urine culture has pseudomonas. Admitted to the hospital with weakness, abdominal pain and nausea. The patient is status post anterior resection of colon and rectal areas and anastomosis along with a diverting ileostomy and also resection of a segment of left ureter with ureteral anastomosis and double-J stent placement three weeks prior. PAST MEDICAL HISTORY: 1. Hypertension. 2. Left knee surgery. 3. Metastatic colon cancer status post resection and colo-anal anastomosis and also resection and re-anastomosis of the left ureter with double-J stent placement. ALLERGIES: CODEINE. ABX: Vancomycin PO. Cefepime. Vancomyicn IV. Flagyl IV. SOCIAL HISTORY: . Positive tobacco use. No alcohol. No illicit drug use. OBJECTIVE: Vital Signs Date Time Temp Pulse Resp B/P (MAP) Pulse Ox O2 Delivery O2 Flow Rate FiO2 07/21/17 08:00 98.2 80 18 113/55 (74) 95 07/21/17 08:00 80 07/21/17 04:00 98.1 76 18 116/56 (76) 95 07/21/17 00:00 98.3 100 20 114/56 (75) 94 07/20/17 21:40 96 Room Air 07/20/17 20:00 98.0 92 18 107/59 (75) 96 07/20/17 20:00 89 07/20/17 16:00 97.9 98 17 119/58 (78) 95 Laboratory Tests Test 07/20/17 10:14 07/21/17 10:27 White Blood Count 20.3 TH/MM3 18.0 TH/MM3 Red Blood Count 2.77 MIL/MM3 3.12 MIL/MM3 Hemoglobin 8.2 GM/DL 9.1 GM/DL Hematocrit 25.9 % 29.2 % Mean Corpuscular Volume 93.6 FL 93.5 FL Mean Corpuscular Hemoglobin 29.6 PG 29.2 PG Mean Corpuscular Hemoglobin Concent 31.6 % 31.2 % Red Cell Distribution Width 23.0 % 22.7 % Platelet Count 48 TH/MM3 58 TH/MM3 Mean Platelet Volume 11.2 FL 10.5 FL Neutrophils (%) (Auto) 88.9 % 90.2 % Lymphocytes (%) (Auto) 4.3 % 2.4 % Monocytes (%) (Auto) 5.8 % 6.9 % Eosinophils (%) (Auto) 0.4 % 0.3 % Basophils (%) (Auto) 0.6 % 0.2 % Neutrophils # (Auto) 18.0 TH/MM3 16.3 TH/MM3 Lymphocytes # (Auto) 0.9 TH/MM3 0.4 TH/MM3 Monocytes # (Auto) 1.2 TH/MM3 1.2 TH/MM3 Eosinophils # (Auto) 0.1 TH/MM3 0.0 TH/MM3 Basophils # (Auto) 0.1 TH/MM3 0.0 TH/MM3 CBC Comment AUTO DIFF AUTO DIFF Differential Total Cells Counted 100 Neutrophils % (Manual) 92 % Band Neutrophils % 1 % Lymphocytes % 1 % Monocytes % 4 % Eosinophils % 1 % Basophils % 1 % Neutrophils # (Manual) 18.9 TH/MM3 Differential Comment FINAL DIFF MANUAL Hypersegmented Polys 1+ Toxic Vacuolation PRESENT Platelet Estimate LOW Platelet Morphology Comment NORMAL Laboratory Tests Test 07/20/17 10:14 07/21/17 10:27 Blood Urea Nitrogen 29 MG/DL 25 MG/DL Creatinine 0.92 MG/DL 0.94 MG/DL Random Glucose 141 MG/DL 126 MG/DL Total Protein 5.0 GM/DL 5.7 GM/DL Albumin 1.4 GM/DL 1.5 GM/DL Calcium Level 7.5 MG/DL 7.7 MG/DL Alkaline Phosphatase 393 U/L 413 U/L Aspartate Amino Transf (AST/SGOT) 18 U/L 21 U/L Alanine Aminotransferase (ALT/SGPT) 37 U/L 34 U/L Total Bilirubin 4.7 MG/DL 5.6 MG/DL Sodium Level 136 MEQ/L 135 MEQ/L Potassium Level 4.1 MEQ/L 4.2 MEQ/L Chloride Level 104 MEQ/L 106 MEQ/L Carbon Dioxide Level 24.7 MEQ/L 23.3 MEQ/L Anion Gap 7 MEQ/L 6 MEQ/L Estimat Glomerular Filtration Rate 82 ML/MIN 80 ML/MIN Microbiology Date/Time Source Procedure Growth Status 07/19/17 19:10 Blood Peripheral Aerobic Blood Culture - Preliminary NO GROWTH IN 2 DAYS Resulted 07/19/17 19:10 Blood Peripheral Anaerobic Blood Culture - Preliminary NO GROWTH IN 2 DAYS Resulted 07/18/17 20:00 Urine Clean Catch Urine Culture - Final Pseudomonas Aeruginosa Complete IMAGING: Chest X-Ray 07/18/17 0000 Signed Impressions: Service Date/Time: Tuesday, July 18, 2017 16:30 - CONCLUSION: Improvement Minimal consolidation remain right base. Alfredo Lora MD FACR PHYSICAL EXAMINATION: GENERAL: No acute distress. HEENT: No icterus. Oropharynx with dry mucosa. NECK: Supple. LUNGS: Decreased breath sounds. HEART: Regular S1-S2 without murmurs, rubs or gallops. ABDOMEN: Positive bowel sounds. Soft. Not tender. Sacrum decubitus wound vac in place. EXTREMITIES: No clubbing or cyanosis, edema. SKIN: No rash. NEUROLOGIC: Nonfocal. PSYCH: Calm and cooperative. IMPRESSION: 1. Post treatment for Severe sepsis/ Bandemia. Status post recent surgery for rectal cancer and recent ureteral resection and double J ureteral stent. 2. C difficile colitis. Pseudomembranous enteritis/sepsis. 3. Acute respiratory failure. Extubated. 4. Pseudomonas pneumonia and UTI. Treated and improved. 5. Leukocytosis. Improved to normal then elevated again. Elevation likely from UTI. WBC Decreasing. 6. UTI - Pseudomonas. RECOMMENDATIONS: 1. Continue PO Vancomycin at 250 mg. 2. Continue Cefepime 3. Stop Flagyl and Vancomycin. 4. Follow WBC. El Espinoza MD Jul 21, 2017 12:14
[2017-07-21 12:18] LABS: PLATELET ESTIMATE SMEAR LOW (NORMAL); PLATELET MORPHOLOGY ENLARGED (NORMAL); SCAN/DIFF AUTO DIFF CONFIRMED; TOXIC VACUOLATION PRESENT (NONE SEEN)
--- NOTE | 2017-07-21 14:56 | PD.PLAS.PN ---
Subjective Remarks The patient is still complaining of sacral pain. Vital Signs Date Time Temp Pulse Resp B/P (MAP) Pulse Ox O2 Delivery O2 Flow Rate FiO2 07/21/17 12:00 98.2 77 18 118/59 (78) 97 07/21/17 08:00 98.2 80 18 113/55 (74) 95 07/21/17 08:00 80 07/21/17 04:00 98.1 76 18 116/56 (76) 95 07/21/17 00:00 98.3 100 20 114/56 (75) 94 07/20/17 21:40 96 Room Air 07/20/17 20:00 98.0 92 18 107/59 (75) 96 07/20/17 20:00 89 07/20/17 16:00 97.9 98 17 119/58 (78) 95 I/O 07/20/17 07/20/17 07/20/17 07/21/17 07/21/17 07/21/17 07:00 15:00 23:00 07:00 15:00 23:00 Intake Total 257.5 ml 837.5 ml 240 ml Output Total 800 ml 800 ml 420 ml Balance -542.5 ml 37.5 ml -180 ml Intake Oral 480 ml 240 ml IV Total 257.5 ml 357.5 ml Output Urine Total 800 ml 400 ml 400 ml Stool Total 400 ml 20 ml Laboratory Tests Test 07/21/17 03:10 07/21/17 10:27 Vancomycin Level Trough 22.5 White Blood Count 18.0 Red Blood Count 3.12 Hemoglobin 9.1 Hematocrit 29.2 Mean Corpuscular Volume 93.5 Mean Corpuscular Hemoglobin 29.2 Mean Corpuscular Hemoglobin Concent 31.2 Red Cell Distribution Width 22.7 Platelet Count 58 Mean Platelet Volume 10.5 Neutrophils (%) (Auto) 90.2 Lymphocytes (%) (Auto) 2.4 Monocytes (%) (Auto) 6.9 Eosinophils (%) (Auto) 0.3 Basophils (%) (Auto) 0.2 Neutrophils # (Auto) 16.3 Lymphocytes # (Auto) 0.4 Monocytes # (Auto) 1.2 Eosinophils # (Auto) 0.0 Basophils # (Auto) 0.0 CBC Comment AUTO DIFF Differential Comment AUTO DIFF CONFIRMED Toxic Vacuolation PRESENT Platelet Estimate LOW Platelet Morphology Comment ENLARGED Blood Urea Nitrogen 25 Creatinine 0.94 Random Glucose 126 Total Protein 5.7 Albumin 1.5 Calcium Level 7.7 Alkaline Phosphatase 413 Aspartate Amino Transf (AST/SGOT) 21 Alanine Aminotransferase (ALT/SGPT) 34 Total Bilirubin 5.6 Sodium Level 135 Potassium Level 4.2 Chloride Level 106 Carbon Dioxide Level 23.3 Anion Gap 6 Estimat Glomerular Filtration Rate 80 Date/Time Source Procedure Growth Status 07/19/17 19:10 Blood Peripheral Aerobic Blood Culture - Preliminary NO GROWTH IN 2 DAYS Resulted 07/19/17 19:10 Blood Peripheral Anaerobic Blood Culture - Preliminary NO GROWTH IN 2 DAYS Resulted 07/02/17 17:00 Sputum Endotracheal Gram Stain - Final Complete 07/02/17 17:00 Sputum Culture - Final Pseudomonas Aeruginosa Complete 07/18/17 20:00 Urine Clean Catch Urine Culture - Final Pseudomonas Aeruginosa Complete Result Diagram: 07/21/17 1027 07/21/17 1027 Exam Findings The wound VAC is in place. There is no evidence of surrounding cellulitis. There is minimal drainage in the wound VAC. Plan Impression: The patient has a sacral decubitus ulcer. Plan: I spent 25 minutes discussing the patient's condition with the . I will be present tomorrow when the wound VAC is changed for further evaluation. The patient is cleared for physical therapy. Supriya Oleary MD Jul 21, 2017 14:56
[2017-07-21 16:00] VITALS: BP 131/66; PULSE 95; RESP 18; TEMP 97.8; O2SAT 97
[2017-07-21] MEDS: oxyCODONE/ACETAMINOPHEN 10 MG/325 MG TAB PO PRN ×2 (16:34→23:14)
--- NOTE | 2017-07-21 16:36 | HHI.GIFU ---
Subjective Remarks Pt resting in bed. Not eating much, says he is "just not hungry." (Laine Edmonds) Objective Vitals I&O Vital Signs Date Time Temp Pulse Resp B/P (MAP) Pulse Ox O2 Delivery O2 Flow Rate FiO2 07/21/17 12:00 98.2 77 18 118/59 (78) 97 07/21/17 08:00 98.2 80 18 113/55 (74) 95 07/21/17 08:00 80 07/21/17 04:00 98.1 76 18 116/56 (76) 95 07/21/17 00:00 98.3 100 20 114/56 (75) 94 07/20/17 21:40 96 Room Air 07/20/17 20:00 98.0 92 18 107/59 (75) 96 07/20/17 20:00 89 I/O 07/20/17 07/20/17 07/20/17 07/21/17 07/21/17 07/21/17 07:00 15:00 23:00 07:00 15:00 23:00 Intake Total 257.5 ml 837.5 ml 240 ml Output Total 800 ml 800 ml 420 ml Balance -542.5 ml 37.5 ml -180 ml Intake Oral 480 ml 240 ml IV Total 257.5 ml 357.5 ml Output Urine Total 800 ml 400 ml 400 ml Stool Total 400 ml 20 ml Laboratory Laboratory Tests Test 07/21/17 03:10 07/21/17 10:27 Vancomycin Level Trough 22.5 White Blood Count 18.0 Red Blood Count 3.12 Hemoglobin 9.1 Hematocrit 29.2 Mean Corpuscular Volume 93.5 Mean Corpuscular Hemoglobin 29.2 Mean Corpuscular Hemoglobin Concent 31.2 Red Cell Distribution Width 22.7 Platelet Count 58 Mean Platelet Volume 10.5 Neutrophils (%) (Auto) 90.2 Lymphocytes (%) (Auto) 2.4 Monocytes (%) (Auto) 6.9 Eosinophils (%) (Auto) 0.3 Basophils (%) (Auto) 0.2 Neutrophils # (Auto) 16.3 Lymphocytes # (Auto) 0.4 Monocytes # (Auto) 1.2 Eosinophils # (Auto) 0.0 Basophils # (Auto) 0.0 CBC Comment AUTO DIFF Differential Comment AUTO DIFF CONFIRMED Toxic Vacuolation PRESENT Platelet Estimate LOW Platelet Morphology Comment ENLARGED Blood Urea Nitrogen 25 Creatinine 0.94 Random Glucose 126 Total Protein 5.7 Albumin 1.5 Calcium Level 7.7 Alkaline Phosphatase 413 Aspartate Amino Transf (AST/SGOT) 21 Alanine Aminotransferase (ALT/SGPT) 34 Total Bilirubin 5.6 Sodium Level 135 Potassium Level 4.2 Chloride Level 106 Carbon Dioxide Level 23.3 Anion Gap 6 Estimat Glomerular Filtration Rate 80 Date/Time Source Procedure Growth Status 07/19/17 19:10 Blood Peripheral Aerobic Blood Culture - Preliminary NO GROWTH IN 2 DAYS Resulted 07/19/17 19:10 Blood Peripheral Anaerobic Blood Culture - Preliminary NO GROWTH IN 2 DAYS Resulted 07/02/17 17:00 Sputum Endotracheal Gram Stain - Final Complete 07/02/17 17:00 Sputum Culture - Final Pseudomonas Aeruginosa Complete 07/18/17 20:00 Urine Clean Catch Urine Culture - Final Pseudomonas Aeruginosa Complete Physical Exam HEENT: Normocephalic; atraumatic; no jaundice. CHEST: Resp. even/unlabored, shallow CARDIAC: RRR ABDOMEN: Soft, nondistended, nontender. ileostomy with semii formed brown stool in ostomy bag. wound vac to sacrum EXTREMITIES: No edema DESILVERIZER: Alert and oriented, generalized weakness (Laine Edmonds) Assessment and Plan Plan ASSESSMENT: - Reconsulted for Elevated LFTs. We have evaluated him in the past for elevated LFTs. (Peak on 06/25- T. Bili 1.7, AST 1300, ALT 386, ALK Phosph 239) Previous workup- Liver US (06/24/17)---> Small volume ascites. Small right effusion. ASMA negative. Alpha 1 Antitrypsin 221. Hepatitis panel negative, LOIS neg, AMA < 20.0, Ceruloplasmin 74. AFP 3.3, Ferritin 5508. Iron saturation > 100%. He received one unit of blood on 06/18. Hfe gene negative C282Y, H63D undetected. It was thought that his previous elevation was multifactorial- related to infection, TPN, abx, and hypotension. We were consulted for worsening hyperbilirubinemia. Steroids discontinued on 06/13 due to possible cholestasis. Liver US (06/13/17) --->1. small volume ascites 2. bilateral pleural effusions 3. sludge within the gallbladder with a top normal thickness of the gallbladder wall. No sonographic evidence to suggest acute cholecystitis. MRCP 07/15/17-- 1. Ascites with small bilateral pleural effusions. 2. Small contracted gallbladder without definite stones 3. No definite common duct stone. 4. Pancreas obscured by motion. Patient denies abdominal pain. LFTs are improving. T. Bilirubin 6.4, AST 32, ALT 61, Alk Phosph 621. - Severe sepsis, CDifficile. WBC went up to 42.3 overnight. T. Max 100.7. S/P debridement of sacral decubitus ulcer. ID to see today. Oral Vanco. - CDiff. Oral vanco. - Respiratory failure, small pleural effusion. Currently on RA - NEIL. Improved - Anemia. S/P 1 unit prbc. labs from (07/14/17) 9.9/31.6. - Atrial fibrillation with RVR. Now sinus rhythm. Pt on Diltiazem. - Thrombocytopenia. S/P 1 unit platelet labs from (07/14/17) Plt 77. No CBC from this morning - Metastatic colon cancer. S/P lower anterior resection/coloanal anastomosis, resection and reanastomosis of the left ureter with ureteral anastomosis and double-J stent placement, wedge resection of hepatic metastasis, mobilization of the splenic flexure, and diverting closed loop ileostomy with Dr. Geiger and Dr. Pelayo on 05/26/17. Dr. Noel is his oncologist, but he has not seen him since his surgery - Sacral decubitus ulcer. S/P Excision sacral decubitus ulcer including skin, sq tissues, bone and muscle, placement of wound vac. (07/17/17) 07/19/17 - WBC down today. LFTs trending down. ALP iso-enzymes pending. 07/21/17 - WBC trending down, LFTs minimal change today. still awaiting ALP iso -enzymes. PLAN: - await iso-enzymes - abx per ID - LYLE - Monitor LFTs - Supportive care - Patient seen and examined by Dr. Guaman and myself and this note is written on his behalf (Laine Edmonds) Physician Comments Patient seen and examined Agree with above Continue with current supportive care Monitor labs (Brijesh Guaman MD) Laine Edmonds Jul 21, 2017 16:36 Brijesh Guaman MD Jul 21, 2017 23:20
--- NOTE | 2017-07-21 17:05 | HHI.PR ---
Subjective Remarks IV vancomycin and Flagyl discontinued. Patient is continued on oral vancomycin and cefepime. Blood cell count has a downward trend. Objective Vital Signs Date Time Temp Pulse Resp B/P (MAP) Pulse Ox O2 Delivery O2 Flow Rate FiO2 07/21/17 12:00 98.2 77 18 118/59 (78) 97 07/21/17 09:00 Room Air 07/21/17 08:00 98.2 80 18 113/55 (74) 95 07/21/17 08:00 80 07/21/17 04:00 98.1 76 18 116/56 (76) 95 07/21/17 00:00 98.3 100 20 114/56 (75) 94 07/20/17 21:40 96 Room Air 07/20/17 20:00 98.0 92 18 107/59 (75) 96 07/20/17 20:00 89 I/O 07/20/17 07/20/17 07/20/17 07/21/17 07/21/17 07/21/17 07:00 15:00 23:00 07:00 15:00 23:00 Intake Total 257.5 ml 837.5 ml 240 ml Output Total 800 ml 800 ml 420 ml Balance -542.5 ml 37.5 ml -180 ml Intake Oral 480 ml 240 ml IV Total 257.5 ml 357.5 ml Output Urine Total 800 ml 400 ml 400 ml Stool Total 400 ml 20 ml Result Diagram: 07/21/17 1027 07/21/17 1027 Objective Remarks GENERAL: NAD, A&Ox3 HEAD: Normocephalic. NECK: Supple, trachea midline. No lymphadenopathy. EYES: No scleral icterus. No injection or drainage. CARDIOVASCULAR: Regular rate and rhythm without murmurs, gallops, or rubs. RESPIRATORY: Breath sounds equal bilaterally. No accessory muscle use. GASTROINTESTINAL: Abdomen soft, non-tender, nondistended. MUSCULOSKELETAL: No cyanosis, or edema. Sacral ulcer has wound VAC in place. SKIN: Warm and dry. NEURO: No focal neurological deficitis. A/P Problem List: (1) Sacral ulcer ICD Code: L98.429 - Non-pressure chronic ulcer of back with unspecified severity (2) 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 Code: Z93.2 - Ileostomy status (3) Cancer of rectum ICD Code: C20 - Malignant neoplasm of rectum Assessment and Plan Assessment and Plan 67 year-old male admitted with respiratory failure secondary to pneumonia and COPD exacerbation. Prolonged time on vent, patient now has decubitus ulcer. Status post wound VAC placement. Leukocytosis is improving. IV vancomycin and Flagyl have been discontinued today, by infectious disease interventional sale consultant. Patient continues to improve slowly and has a declining white blood cell count. Discharge to longterm facility may be entertained as an option again soon , if he continues to improve. Acute respiratory failure Pseudomonal pneumonia COPD with exacerbation Improved Patient extubated 07/06/17 Continue bronchodilators Continue inhaled steroids Continue to mucolytic's Continue incentive spirometry Off systemic steroids A. fib with RVR Improved Follow on telemetry Continue by mouth Cardizem Continue by mouth digoxin Continue Lovenox Continue diuresis Status post left colectomy Colorectal cancer Diverting ileostomy Wedge resection of liver metastases Status post resection of the left ureter Transaminitis Ileus continue Alvimopam 12mg BID for Ileus Continue Han catheter Continue diuretics C. difficile enteritis Continue by mouth vancomycin Follow for clinical improvement Sacral ulcer Colon rectal surgery following Plastic surgery consulted Continue wound care Left upper extremity thrombosis DVT prophylaxis Lovenox Bao Stafford MD Jul 21, 2017 17:05
--- NOTE | 2017-07-21 17:59 | HHI.PR ---
Subjective Remarks Pseudomonas UTI. On Cefepime. WBC down some more. Wound vac changed yesterday. Needs more nutrition. Consider PEG tube Objective Vital Signs Date Time Temp Pulse Resp B/P (MAP) Pulse Ox O2 Delivery O2 Flow Rate FiO2 07/21/17 16:00 97.8 95 18 131/66 (87) 97 07/21/17 12:00 98.2 77 18 118/59 (78) 97 07/21/17 09:00 Room Air 07/21/17 08:00 98.2 80 18 113/55 (74) 95 07/21/17 08:00 80 07/21/17 04:00 98.1 76 18 116/56 (76) 95 07/21/17 00:00 98.3 100 20 114/56 (75) 94 07/20/17 21:40 96 Room Air 07/20/17 20:00 98.0 92 18 107/59 (75) 96 07/20/17 20:00 89 I/O 07/20/17 07/20/17 07/20/17 07/21/17 07/21/17 07/21/17 07:00 15:00 23:00 07:00 15:00 23:00 Intake Total 257.5 ml 837.5 ml 240 ml Output Total 800 ml 800 ml 420 ml Balance -542.5 ml 37.5 ml -180 ml Intake Oral 480 ml 240 ml IV Total 257.5 ml 357.5 ml Output Urine Total 800 ml 400 ml 400 ml Stool Total 400 ml 20 ml Result Diagram: 07/21/17 1027 07/21/17 1027 Objective Remarks VS-S Abd: Soft. Flat. Wound healed. Stoma working.Stools thick . I&Os: OK Labs: WBC improving Assessment and Plan Assessment and Plan Decubitus-Debridement and wound vac placed Deconditioned-Not really a candidate for NHP. Needs Rehab. Cannot even get OOB at this time. OOB. To Rehab anytime when OK with all consultants but needs more nutrition UTI on Cefepime Consider PEG tube Appreciate Dr Ryan and Dr Oleary input Luca Geiger MD Jul 21, 2017 17:59
[2017-07-21 20:00] VITALS: BP 124/61; PULSE 90; PULSE 92; RESP 18; TEMP 97; O2SAT 98
[2017-07-21] MEDS: VIIBRYD 40 MG PO SCH (20:07)
[2017-07-21] MEDS: HYDROmorphone HCL PF 0.5 MG/0.5 ML SYRINGE IV PUSH PRN (20:19)
[2017-07-22] VITALS (9 sets, daily range): BP systolic 108–132; BP diastolic 57–65; PULSE 56–92; RESP 14–20; TEMP 97–98.5; O2SAT 95–98
[2017-07-22] MEDS ORDERED: VANCOMYCIN INJ 750 MG in SODIUM CHLOR 0.9% 250 ML INJ 250 ML IV SCH ×2
[2017-07-22] MEDS: oxyCODONE/ACETAMINOPHEN 10 MG/325 MG TAB PO PRN ×2 (05:22→11:49)
[2017-07-22] MEDS: DILTIAZEM HCL 60 MG TAB PO SCH ×3 (05:22→17:51)
[2017-07-22] MEDS: INSULIN ASPART SUPPLEMENTAL SCALE SQ SCH ×4 (07:41→20:19)
--- NOTE | 2017-07-22 08:10 | HHI.PR ---
Subjective Remarks Pseudomonas UTI. On Cefepime. Needs more nutrition. Says he ate more yesterday. Consider PEG tube Objective Vital Signs Date Time Temp Pulse Resp B/P (MAP) Pulse Ox O2 Delivery O2 Flow Rate FiO2 07/22/17 07:47 97.9 82 14 113/62 (79) 95 07/22/17 04:00 97.9 92 20 118/60 (79) 96 07/22/17 00:45 97.9 90 18 108/57 (74) 95 07/21/17 20:00 97.0 90 18 124/61 (82) 98 07/21/17 20:00 92 07/21/17 19:30 Nasal Cannula 2.00 07/21/17 16:00 97.8 95 18 131/66 (87) 97 07/21/17 12:00 98.2 77 18 118/59 (78) 97 07/21/17 09:00 Room Air I/O 07/21/17 07/21/17 07/21/17 07/22/17 07/22/17 07/22/17 07:00 15:00 23:00 07:00 15:00 23:00 Intake Total 240 ml 820 ml Output Total 420 ml 800 ml 750 ml Balance -180 ml 20 ml -750 ml Intake Oral 240 ml 720 ml IV Total 100 ml Output Urine Total 400 ml 800 ml 750 ml Stool Total 20 ml # Bowel Movements 1 0 Result Diagram: 07/21/17 1027 07/21/17 1027 Objective Remarks VS-S Abd: Soft. Flat. Wound healed. Stoma working.Stools thick . I&Os: OK Labs: WBC going down Assessment and Plan Assessment and Plan Decubitus-Debridement and wound vac placed Deconditioned-Not really a candidate for NHP. Needs Rehab. OOB. To Rehab anytime when OK with all consultants but needs more nutrition UTI on Cefepime Consider PEG tube- Pt says he's eating better Appreciate Dr Ryan and Dr Oleary input Luca Geiger MD Jul 22, 2017 08:10
[2017-07-22] MEDS: predniSONE 20 MG TAB PO SCH (08:44)
[2017-07-22] MEDS: PANTOPRAZOLE SOD 40 MG DELAYED RELEASE TAB PO SCH (08:44)
[2017-07-22] MEDS: POTASSIUM CHLORIDE 25 MEQ EFFERVESCENT TAB PO SCH (08:45)
[2017-07-22] MEDS: DIGOXIN 0.125 MG TAB PO SCH (08:45)
[2017-07-22] MEDS: ENOXAPARIN SODIUM 40 MG/0.4 ML SYRINGE SQ SCH (08:46)
[2017-07-22] MEDS: VANCOMYCIN 500 MG VIAL (FOR ORAL USE ONLY) PO SCH ×4 (08:46→20:25)
[2017-07-22] MEDS: BUDESONIDE-FORMOTEROL 160/4.5 MCG INHALER INH SCH ×2 (09:00→20:26)
[2017-07-22] MEDS: COLLAGENASE OINT 30 GM TUBE TOPICAL SCH (09:00)
[2017-07-22 09:24] LABS: AUTOMATED NEUTROPHIL # 9.7 TH/MM3 (1.8-7.7); BASOPHIL # 0.1 TH/MM3 (0-0.2); BASOPHIL % 0.4 % (0.0-2.0); EOSINOPHIL % 0.2 % (0.0-4.0); HEMATOCRIT 25.5 % (39.0-51.0); LYMPH % 7.7 % (9.0-44.0); LYMPHOCYTE # 0.9 TH/MM3 (1.0-4.8); MEAN CELL VOLUME 93.8 FL (80.0-100.0); MEAN CORPUSCULAR HEMOGLOBIN 29.3 PG (27.0-34.0); MEAN CORPUSCULAR HGB CONC 31.2 % (32.0-36.0); MONO % 8.9 % (0.0-8.0); NEUT % 82.8 % (16.0-70.0); PLATELET COUNT 59 TH/MM3 (150-450); RED BLOOD COUNT 2.71 MIL/MM3 (4.50-5.90); RED CELL DISTRIBUTION WIDTH 22.4 % (11.6-17.2); WHITE BLOOD COUNT 11.7 TH/MM3 (4.0-11.0)
[2017-07-22 09:25] LABS: HEMO FLAGS AUTO DIFF
[2017-07-22 09:59] LABS: ANION GAP 7 MEQ/L (5-15); AST (GOT) 23 U/L (15-37); BICARBONATE 23.4 MEQ/L (21.0-32.0); BLOOD UREA NITROGEN 25 MG/DL (7-18); CHLORIDE 109 MEQ/L (98-107); GLOMERULAR FILTRATION RATE 104 ML/MIN (>89); POTASSIUM 4.3 MEQ/L (3.5-5.1); SODIUM (NA) 139 MEQ/L (136-145)
[2017-07-22 10:01] LABS: ALKALINE PHOSPHATASE 399 U/L (45-117); ALT (GPT) 32 U/L (12-78); TOTAL BILIRUBIN ADULT 4.1 MG/DL (0.2-1.0)
[2017-07-22 10:30] LABS: PLATELET ESTIMATE SMEAR LOW (NORMAL); PLATELET MORPHOLOGY ENLARGED (NORMAL); SCAN/DIFF AUTO DIFF CONFIRMED
[2017-07-22] MEDS: CEFEPIME INJ 2,000 MG in SODIUM CHLORIDE 0.9% INJ 100 ML IV SCH ×2 (10:50→20:21)
--- NOTE | 2017-07-22 11:20 | HHI.PR ---
Subjective Remarks Blood cultures from 07/19/17 are positive again, possibly with Pseudomonas. Case discussed with infectious disease, negative blood cultures needed prior to consideration of discharge. Patient's white blood cell count has improved. Slight decline in hemoglobin. Objective Vital Signs Date Time Temp Pulse Resp B/P (MAP) Pulse Ox O2 Delivery O2 Flow Rate FiO2 07/22/17 10:30 Room Air 07/22/17 07:47 97.9 82 14 113/62 (79) 95 07/22/17 04:00 97.9 92 20 118/60 (79) 96 07/22/17 00:45 97.9 90 18 108/57 (74) 95 07/21/17 20:00 97.0 90 18 124/61 (82) 98 07/21/17 20:00 92 07/21/17 19:30 Nasal Cannula 2.00 07/21/17 16:00 97.8 95 18 131/66 (87) 97 07/21/17 12:00 98.2 77 18 118/59 (78) 97 I/O 07/21/17 07/21/17 07/21/17 07/22/17 07/22/17 07/22/17 07:00 15:00 23:00 07:00 15:00 23:00 Intake Total 240 ml 820 ml Output Total 420 ml 800 ml 750 ml 225 ml Balance -180 ml 20 ml -750 ml -225 ml Intake Oral 240 ml 720 ml IV Total 100 ml Output Urine Total 400 ml 800 ml 750 ml 225 ml Stool Total 20 ml # Bowel Movements 1 0 Result Diagram: 07/22/1734 07/22/17 0834 Objective Remarks GENERAL: NAD, A&Ox3 HEAD: Normocephalic. NECK: Supple, trachea midline. No lymphadenopathy. EYES: No scleral icterus. No injection or drainage. CARDIOVASCULAR: Regular rate and rhythm without murmurs, gallops, or rubs. RESPIRATORY: Breath sounds equal bilaterally. No accessory muscle use. GASTROINTESTINAL: Abdomen soft, non-tender, nondistended. MUSCULOSKELETAL: No cyanosis, or edema. Sacral ulcer has wound VAC in place. SKIN: Warm and dry. NEURO: No focal neurological deficitis. A/P Problem List: (1) Sacral ulcer ICD Code: L98.429 - Non-pressure chronic ulcer of back with unspecified severity (2) 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 Code: Z93.2 - Ileostomy status (3) Cancer of rectum ICD Code: C20 - Malignant neoplasm of rectum Assessment and Plan Assessment and Plan 67 year-old male admitted with respiratory failure secondary to pneumonia and COPD exacerbation. Prolonged time on vent, patient now has decubitus ulcer. Status post wound VAC placement. Leukocytosis is improving. Continuing cefepime and by mouth vancomycin. Follow blood cultures. Labs reviewed. Anemia present. Continue to monitor CBC to monitor anemia and white blood cell count. Labs ordered for further monitoring. Acute respiratory failure Pseudomonal pneumonia COPD with exacerbation Improved Patient extubated 07/06/17 Continue bronchodilators Continue inhaled steroids Continue to mucolytic's Continue incentive spirometry Off systemic steroids A. fib with RVR Improved Follow on telemetry Continue by mouth Cardizem Continue by mouth digoxin Continue Lovenox Continue diuresis Status post left colectomy Colorectal cancer Diverting ileostomy Wedge resection of liver metastases Status post resection of the left ureter Transaminitis Ileus continue Alvimopam 12mg BID for Ileus Continue Han catheter Continue diuretics C. difficile enteritis Continue by mouth vancomycin Follow for clinical improvement Sacral ulcer Colon rectal surgery following Plastic surgery consulted Continue wound care Left upper extremity thrombosis DVT prophylaxis Lovenox Bao Stafford MD Jul 22, 2017 11:20
--- NOTE | 2017-07-22 12:39 | HHI.IDPN ---
Note Infectious Disease Note Patient feels better. Appetite better. Afebrile. WBC lower. Temp lower. Denies chills. Urine culture has pseudomonas. Blood culture has pseudomonas. Admitted to the hospital with weakness, abdominal pain and nausea. The patient is status post anterior resection of colon and rectal areas and anastomosis along with a diverting ileostomy and also resection of a segment of left ureter with ureteral anastomosis and double-J stent placement three weeks prior. PAST MEDICAL HISTORY: 1. Hypertension. 2. Left knee surgery. 3. Metastatic colon cancer status post resection and colo-anal anastomosis and also resection and re-anastomosis of the left ureter with double-J stent placement. ALLERGIES: CODEINE. ABX: Vancomycin PO. Cefepime. SOCIAL HISTORY: . Positive tobacco use. No alcohol. No illicit drug use. OBJECTIVE: Vital Signs Date Time Temp Pulse Resp B/P (MAP) Pulse Ox O2 Delivery O2 Flow Rate FiO2 07/22/17 10:30 Room Air 07/22/17 07:47 97.9 82 14 113/62 (79) 95 07/22/17 04:00 97.9 92 20 118/60 (79) 96 07/22/17 00:45 97.9 90 18 108/57 (74) 95 07/21/17 20:00 97.0 90 18 124/61 (82) 98 07/21/17 20:00 92 07/21/17 19:30 Nasal Cannula 2.00 07/21/17 16:00 97.8 95 18 131/66 (87) 97 Laboratory Tests Test 07/21/17 10:27 07/22/17 08:34 White Blood Count 18.0 TH/MM3 11.7 TH/MM3 Red Blood Count 3.12 MIL/MM3 2.71 MIL/MM3 Hemoglobin 9.1 GM/DL 7.9 GM/DL Hematocrit 29.2 % 25.5 % Mean Corpuscular Volume 93.5 FL 93.8 FL Mean Corpuscular Hemoglobin 29.2 PG 29.3 PG Mean Corpuscular Hemoglobin Concent 31.2 % 31.2 % Red Cell Distribution Width 22.7 % 22.4 % Platelet Count 58 TH/MM3 59 TH/MM3 Mean Platelet Volume 10.5 FL 10.3 FL Neutrophils (%) (Auto) 90.2 % 82.8 % Lymphocytes (%) (Auto) 2.4 % 7.7 % Monocytes (%) (Auto) 6.9 % 8.9 % Eosinophils (%) (Auto) 0.3 % 0.2 % Basophils (%) (Auto) 0.2 % 0.4 % Neutrophils # (Auto) 16.3 TH/MM3 9.7 TH/MM3 Lymphocytes # (Auto) 0.4 TH/MM3 0.9 TH/MM3 Monocytes # (Auto) 1.2 TH/MM3 1.0 TH/MM3 Eosinophils # (Auto) 0.0 TH/MM3 0.0 TH/MM3 Basophils # (Auto) 0.0 TH/MM3 0.1 TH/MM3 CBC Comment AUTO DIFF AUTO DIFF Differential Comment AUTO DIFF CONFIRMED AUTO DIFF CONFIRMED Toxic Vacuolation PRESENT Platelet Estimate LOW LOW Platelet Morphology Comment ENLARGED ENLARGED Laboratory Tests Test 07/21/17 10:27 07/22/17 08:34 Blood Urea Nitrogen 25 MG/DL 25 MG/DL Creatinine 0.94 MG/DL 0.75 MG/DL Random Glucose 126 MG/DL 86 MG/DL Total Protein 5.7 GM/DL 5.2 GM/DL Albumin 1.5 GM/DL 1.5 GM/DL Calcium Level 7.7 MG/DL 7.6 MG/DL Alkaline Phosphatase 413 U/L 399 U/L Aspartate Amino Transf (AST/SGOT) 21 U/L 23 U/L Alanine Aminotransferase (ALT/SGPT) 34 U/L 32 U/L Total Bilirubin 5.6 MG/DL 4.1 MG/DL Sodium Level 135 MEQ/L 139 MEQ/L Potassium Level 4.2 MEQ/L 4.3 MEQ/L Chloride Level 106 MEQ/L 109 MEQ/L Carbon Dioxide Level 23.3 MEQ/L 23.4 MEQ/L Anion Gap 6 MEQ/L 7 MEQ/L Estimat Glomerular Filtration Rate 80 ML/MIN 104 ML/MIN Microbiology Date/Time Source Procedure Growth Status 07/19/17 19:10 Blood Peripheral Aerobic Blood Culture - Preliminary Pseudomonas Aeruginosa Resulted 07/19/17 19:10 Blood Peripheral Anaerobic Blood Culture - Preliminary NO GROWTH IN 3 DAYS Resulted IMAGING: Chest X-Ray 07/18/17 0000 Signed Impressions: Service Date/Time: Tuesday, July 18, 2017 16:30 - CONCLUSION: Improvement Minimal consolidation remain right base. Alfredo Lora MD [facility] PHYSICAL EXAMINATION: GENERAL: No acute distress. HEENT: No icterus. Oropharynx with dry mucosa. NECK: Supple. LUNGS: Decreased breath sounds. HEART: Regular S1-S2 without murmurs, rubs or gallops. ABDOMEN: Positive bowel sounds. Soft. Not tender. Sacrum decubitus wound vac in place. EXTREMITIES: No clubbing or cyanosis, edema. SKIN: No rash. NEUROLOGIC: Nonfocal. PSYCH: Calm and cooperative. IMPRESSION: 1. Post treatment for Severe sepsis/ Bandemia. Status post recent surgery for rectal cancer and recent ureteral resection and double J ureteral stent. 2. C difficile colitis. Pseudomembranous enteritis/sepsis. 3. Acute respiratory failure. Extubated. 4. Pseudomonas pneumonia and UTI. Treated and improved. 5. Leukocytosis. Improved to normal then elevated again. Elevation likely from UTI. WBC Decreasing. 6. Bacteremia - Pseudomonas. 7. UTI - Pseudomonas. RECOMMENDATIONS: 1. Continue PO Vancomycin at 250 mg. 2. Continue Cefepime 3. Follow repeat blood culture. 4. Follow WBC. 5. Hold discharge pending blood cultures. El Espinoza MD Jul 22, 2017 12:39
[2017-07-22] MEDS: SODIUM HYPOCHLORITE 0.125% 500 ML BTL TOPICAL SCH (12:57)
--- NOTE | 2017-07-22 14:35 | PD.WCN.NOT ---
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 2. Please soak wound for 10 minutes with 0.125% dakins solution with VAC dressing changes. 3. continue to change wound VAC dressing Tuesday, Tuesday and Tuesday with settings at 125 mm/hg continuous low suction. Neg Pressure Wound Therapy Wound Location Wound Location: Sacrum Wound Description Wound bed appearance: Full thickness wound to sacrum with ~30% adherent yellow slough, ~20% bone, ~20 % facia, and ~30% muscle tissue. Wound has minimal sero-sanguinous drainage that is active and is without odor Periwound appearance: Other (full thickness skin loss between 2 and 4 o'clock ) Settings Suction: 125 mmHg, Continuous Intensity: Low Other Information: Bridged, Windowpaned, Mushroomed Foam type: Black Number of pieces: 1 Additonal Information Patient seen for assistance with VAC dressing change. Removed Dakin's soaked gauze from wound bed after Meliton alvarez soaked sacral wound for 10 minutes. Doctor Anirudh assessed wound before Dakin's soaked gauze was applied, Doctor wants to continue with wound VAC dressing changes.Skin prep was applied to periwound before window paning wound with VAC drape and bridging VAC drape to to L anterior thigh.Xeroform was applied over full thickness skin loss to periwound between 2 and 4 o'clock.Black VAC granufoam was then cut into long strip and coiled in to wound bed to reach undermined areas in a cinnamon roll fashion. Bridged one long strip of granufoam from wound bed to L anterior thigh. Stoma paste was applied to gluteal cleft to seal VAC dressing. Applied Sensi trac pad with attached mushroom cap of black granufoam over bridged granufoam.Covered all exposed VAC granufoam with VAC drape. Wound Vac suctioning at 125 mm/hg continuous low suction with low leak rate. Patient is comfortable positioned to R side. Lowered bed to a safe height before leaving room. Next VAC dressing change is due on Tuesday07/25/2017. Yasmine Aragon [facility] Jul 22, 2017 14:35
--- NOTE | 2017-07-22 14:54 | HHI.GIFU ---
Subjective Remarks Pt resting in bed. Quite agitated at bedside. She says he's eating now that nurses will set up tray for him and she is bringing outside food. She was upset that PEG tube was mentioned and said they adamantly will refuse this intervention, demands that this not be mentioned again. She is displeased with their experience thus far and also requested no further imaging. (Laine Edmonds) Objective Vitals I&O Vital Signs Date Time Temp Pulse Resp B/P (MAP) Pulse Ox O2 Delivery O2 Flow Rate FiO2 07/22/17 12:00 97.0 75 18 112/57 (75) 97 07/22/17 10:30 Room Air 07/22/17 07:47 97.9 82 14 113/62 (79) 95 07/22/17 04:00 97.9 92 20 118/60 (79) 96 07/22/17 00:45 97.9 90 18 108/57 (74) 95 07/21/17 20:00 97.0 90 18 124/61 (82) 98 07/21/17 20:00 92 07/21/17 19:30 Nasal Cannula 2.00 07/21/17 16:00 97.8 95 18 131/66 (87) 97 I/O 07/21/17 07/21/17 07/21/17 07/22/17 07/22/17 07/22/17 07:00 15:00 23:00 07:00 15:00 23:00 Intake Total 240 ml 820 ml Output Total 420 ml 800 ml 750 ml 225 ml Balance -180 ml 20 ml -750 ml -225 ml Intake Oral 240 ml 720 ml IV Total 100 ml Output Urine Total 400 ml 800 ml 750 ml 225 ml Stool Total 20 ml # Bowel Movements 1 0 Laboratory Laboratory Tests Test 07/22/17 08:34 White Blood Count 11.7 Red Blood Count 2.71 Hemoglobin 7.9 Hematocrit 25.5 Mean Corpuscular Volume 93.8 Mean Corpuscular Hemoglobin 29.3 Mean Corpuscular Hemoglobin Concent 31.2 Red Cell Distribution Width 22.4 Platelet Count 59 Mean Platelet Volume 10.3 Neutrophils (%) (Auto) 82.8 Lymphocytes (%) (Auto) 7.7 Monocytes (%) (Auto) 8.9 Eosinophils (%) (Auto) 0.2 Basophils (%) (Auto) 0.4 Neutrophils # (Auto) 9.7 Lymphocytes # (Auto) 0.9 Monocytes # (Auto) 1.0 Eosinophils # (Auto) 0.0 Basophils # (Auto) 0.1 CBC Comment AUTO DIFF Differential Comment AUTO DIFF CONFIRMED Platelet Estimate LOW Platelet Morphology Comment ENLARGED Blood Urea Nitrogen 25 Creatinine 0.75 Random Glucose 86 Total Protein 5.2 Albumin 1.5 Calcium Level 7.6 Alkaline Phosphatase 399 Aspartate Amino Transf (AST/SGOT) 23 Alanine Aminotransferase (ALT/SGPT) 32 Total Bilirubin 4.1 Sodium Level 139 Potassium Level 4.3 Chloride Level 109 Carbon Dioxide Level 23.4 Anion Gap 7 Estimat Glomerular Filtration Rate 104 Date/Time Source Procedure Growth Status 07/19/17 19:10 Blood Peripheral Aerobic Blood Culture - Preliminary Pseudomonas Aeruginosa Resulted 07/19/17 19:10 Blood Peripheral Anaerobic Blood Culture - Preliminary NO GROWTH IN 3 DAYS Resulted 07/02/17 17:00 Sputum Endotracheal Gram Stain - Final Complete 07/02/17 17:00 Sputum Culture - Final Pseudomonas Aeruginosa Complete 07/18/17 20:00 Urine Clean Catch Urine Culture - Final Pseudomonas Aeruginosa Complete Imaging Last Impressions Chest X-Ray 07/18/17 0000 Signed Impressions: Service Date/Time: Tuesday, July 18, 2017 16:30 - CONCLUSION: Improvement Minimal consolidation remain right base. Alfredo Lora MD FACR Cholangiopancreatography MRI 07/15/17 0000 Signed Impressions: Service Date/Time: Saturday, July 15, 2017 15:02 - CONCLUSION: 1. Ascites with small bilateral pleural effusions. 2. Small contracted gallbladder without definite stones 3. No definite common duct stone. 4. Pancreas obscured by motion. Alfredo Lora MD FACR Liver Ultrasound 07/14/17 0000 Signed Impressions: Service Date/Time: July 16:45 - CONCLUSION: 1. Small volume ascites. 2. Bilateral pleural effusions. 3. Sludge within the gallbladder with a top normal thickness of the gallbladder wall. No sonographic evidence to suggest acute cholecystitis. Pierce Ospina Jr., MD Abdomen X-Ray 07/06/17 0000 Signed Impressions: Service Date/Time: Thursday, July 06, 2017 13:44 - CONCLUSION: 1. Gaseous distention of multiple bowel loops. This has slightly improved. 2. Left-sided nephroureteral stent in good position. Sarwat F. Tocci, MD Upper Extremity Ultrasound 06/23/17 Signed Impressions: Service Date/Time: June 20:03 - CONCLUSION: Noncompressibility right cephalic vein and left basilic vein consistent with venous thrombosis Trav Hsieh MD Lower Extremity Ultrasound 06/23/17 Signed Impressions: Service Date/Time: June 20:16 - CONCLUSION: Normal examination. No evidence DVT Trav Hsieh MD Chest CT 06/20/17 Signed Impressions: Service Date/Time: Tuesday, June 20, 2017 07:42 - CONCLUSION: 1. Bilateral effusions and consolidative changes in both lung bases. Bao Lora MD Abdomen/Pelvis CT 06/20/17 Signed Impressions: Service Date/Time: Tuesday, June 20, 2017 07:39 - CONCLUSION: 1. Dilated stomach and multiple dilated loops of small bowel, likely ileus. 2. No definite gastric volvulus. 3. Fat containing right inguinal hernia which also contains small portion of the urinary bladder and minimal fluid. 4. Left-sided nephroureteral stent in good position. 5. Bibasilar consolidation and small pleural effusions. Sarwat Suarez MD Physical Exam HEENT: Normocephalic; atraumatic; no jaundice. CHEST: CTA CARDIAC: RRR ABDOMEN: Soft, nondistended, nontender. wound vac to sacrum EXTREMITIES: No edema HOTEL CONTROLLER: Alert and oriented, generalized weakness (Laine Edmonds CASH MANAGEMENT COORDINATOR) Assessment and Plan Plan ASSESSMENT: - Reconsulted for Elevated LFTs. We have evaluated him in the past for elevated LFTs. (Peak on 06/25- T. Bili 1.7, AST 1300, ALT 386, ALK Phosph 239) Previous workup- Liver US (06/24/17)---> Small volume ascites. Small right effusion. ASMA negative. Alpha 1 Antitrypsin 221. Hepatitis panel negative, LOIS neg, AMA < 20.0, Ceruloplasmin 74. AFP 3.3, Ferritin 5508. Iron saturation > 100%. He received one unit of blood on 06/18. Hfe gene negative C282Y, H63D undetected. It was thought that his previous elevation was multifactorial- related to infection, TPN, abx, and hypotension. We were consulted for worsening hyperbilirubinemia. Steroids discontinued on 06/13 due to possible cholestasis. Liver US (06/13/17) --->1. small volume ascites 2. bilateral pleural effusions 3. sludge within the gallbladder with a top normal thickness of the gallbladder wall. No sonographic evidence to suggest acute cholecystitis. MRCP 07/15/17-- 1. Ascites with small bilateral pleural effusions. 2. Small contracted gallbladder without definite stones 3. No definite common duct stone. 4. Pancreas obscured by motion. Patient denies abdominal pain. LFTs are improving. T. Bilirubin 6.4, AST 32, ALT 61, Alk Phosph 621. - Severe sepsis, CDifficile. WBC went up to 42.3 overnight. T. Max 100.7. S/P debridement of sacral decubitus ulcer. ID to see today. Oral Vanco. - CDiff. Oral vanco. - Respiratory failure, small pleural effusion. Currently on RA - NEIL. Improved - Anemia. S/P 1 unit prbc. labs from (07/14/17) 9.9/31.6. - Atrial fibrillation with RVR. Now sinus rhythm. Pt on Diltiazem. - Thrombocytopenia. S/P 1 unit platelet labs from (07/14/17) Plt 77. No CBC from this morning - Metastatic colon cancer. S/P lower anterior resection/coloanal anastomosis, resection and reanastomosis of the left ureter with ureteral anastomosis and double-J stent placement, wedge resection of hepatic metastasis, mobilization of the splenic flexure, and diverting closed loop ileostomy with Dr. Geiger and Dr. Pelayo on 05/26/17. Dr. Noel is his oncologist, but he has not seen him since his surgery - Sacral decubitus ulcer. S/P Excision sacral decubitus ulcer including skin, sq tissues, bone and muscle, placement of wound vac. (07/17/17) 07/19/17 - WBC down today. LFTs trending down. ALP iso-enzymes pending. 07/21/17 - WBC trending down, LFTs minimal change today. still awaiting ALP iso -enzymes. 07/22/17 - WBC continues decrease. ALP iso enzymes nonspecific. pt with pos blood cx pseudomonas, d/c held until bcx no growth. discussed PEG tube, better not do if pos bcx, and says they adamantly refuse this intervention and do not mention it again, also refusing any further imaging. Per pt is eating more now. PLAN: - no PEG tube at this time - encourage PO intake - abx per ID - LYLE - Monitor LFTs - Supportive care - Patient seen and examined by Dr. Guaman and myself and this note is written on his behalf (Laine Edmonds) Physician Comments Patient seen and examined Agree with above Continue with current supportive care Monitor labs The alkaline phosphatase isoenzymes are nonspecific and not worrisome in any which way Not much to add from a GI perspective therefore we shall sign off (Brijesh Guaman MD) Laine Edmonds Jul 22, 2017 14:54 Brijesh Guaman MD Jul 22, 2017 20:09
--- NOTE | 2017-07-22 16:02 | PD.PLAS.PN ---
Subjective Remarks Patient reports that the wound is less painful. Vital Signs Date Time Temp Pulse Resp B/P (MAP) Pulse Ox O2 Delivery O2 Flow Rate FiO2 07/22/17 15:39 82 07/22/17 12:00 97.0 75 18 112/57 (75) 97 07/22/17 10:30 Room Air 07/22/17 08:00 75 07/22/17 07:47 97.9 82 14 113/62 (79) 95 07/22/17 04:00 97.9 92 20 118/60 (79) 96 07/22/17 00:45 97.9 90 18 108/57 (74) 95 07/21/17 20:00 97.0 90 18 124/61 (82) 98 07/21/17 20:00 92 07/21/17 19:30 Nasal Cannula 2.00 07/21/17 16:00 97.8 95 18 131/66 (87) 97 I/O 07/21/17 07/21/17 07/21/17 07/22/17 07/22/17 07/22/17 07:00 15:00 23:00 07:00 15:00 23:00 Intake Total 240 ml 820 ml Output Total 420 ml 800 ml 750 ml 225 ml Balance -180 ml 20 ml -750 ml -225 ml Intake Oral 240 ml 720 ml IV Total 100 ml Output Urine Total 400 ml 800 ml 750 ml 225 ml Stool Total 20 ml # Bowel Movements 1 0 Laboratory Tests Test 07/22/17 08:34 White Blood Count 11.7 Red Blood Count 2.71 Hemoglobin 7.9 Hematocrit 25.5 Mean Corpuscular Volume 93.8 Mean Corpuscular Hemoglobin 29.3 Mean Corpuscular Hemoglobin Concent 31.2 Red Cell Distribution Width 22.4 Platelet Count 59 Mean Platelet Volume 10.3 Neutrophils (%) (Auto) 82.8 Lymphocytes (%) (Auto) 7.7 Monocytes (%) (Auto) 8.9 Eosinophils (%) (Auto) 0.2 Basophils (%) (Auto) 0.4 Neutrophils # (Auto) 9.7 Lymphocytes # (Auto) 0.9 Monocytes # (Auto) 1.0 Eosinophils # (Auto) 0.0 Basophils # (Auto) 0.1 CBC Comment AUTO DIFF Differential Comment AUTO DIFF CONFIRMED Platelet Estimate LOW Platelet Morphology Comment ENLARGED Blood Urea Nitrogen 25 Creatinine 0.75 Random Glucose 86 Total Protein 5.2 Albumin 1.5 Calcium Level 7.6 Alkaline Phosphatase 399 Aspartate Amino Transf (AST/SGOT) 23 Alanine Aminotransferase (ALT/SGPT) 32 Total Bilirubin 4.1 Sodium Level 139 Potassium Level 4.3 Chloride Level 109 Carbon Dioxide Level 23.4 Anion Gap 7 Estimat Glomerular Filtration Rate 104 Date/Time Source Procedure Growth Status 07/19/17 19:10 Blood Peripheral Aerobic Blood Culture - Preliminary Pseudomonas Aeruginosa Resulted 07/19/17 19:10 Blood Peripheral Anaerobic Blood Culture - Preliminary NO GROWTH IN 3 DAYS Resulted 07/02/17 17:00 Sputum Endotracheal Gram Stain - Final Complete 07/02/17 17:00 Sputum Culture - Final Pseudomonas Aeruginosa Complete 07/18/17 20:00 Urine Clean Catch Urine Culture - Final Pseudomonas Aeruginosa Complete Result Diagram: 07/22/17 0834 07/22/17 0834 Exam Findings Examination of the wound reveals the beginning of granulation tissue formation. No odor. No cellulitis. Plan Impression: The wound is healing. Plan: Continue with VAC therapy. Patient is cleared for transfer to rehabilitation. Supriya Oleary MD Jul 22, 2017 16:02
[2017-07-22] MEDS: oxyCODONE/ACETAMINOPHEN 5 MG/325 MG TAB PO PRN (16:42)
[2017-07-22] MEDS: VIIBRYD 40 MG PO SCH (20:26)
[2017-07-22] MEDS: HYDROmorphone HCL PF 0.5 MG/0.5 ML SYRINGE IV PUSH PRN (21:01)
[2017-07-23] VITALS (8 sets, daily range): BP systolic 104–144; BP diastolic 62–70; PULSE 74–97; RESP 17–18; TEMP 98.2–98.8; O2SAT 96–98
[2017-07-23] MEDS: DILTIAZEM HCL 60 MG TAB PO SCH ×5 (00:23→22:44)
[2017-07-23] MEDS: oxyCODONE/ACETAMINOPHEN 5 MG/325 MG TAB PO PRN (00:23)
[2017-07-23] MEDS: HYDROmorphone HCL PF 0.5 MG/0.5 ML SYRINGE IV PUSH PRN (03:20)
[2017-07-23] MEDS: oxyCODONE/ACETAMINOPHEN 10 MG/325 MG TAB PO PRN ×3 (06:14→22:43)
[2017-07-23 07:29] LABS: HEMATOCRIT 28.2 % (39.0-51.0); MEAN CORPUSCULAR HGB CONC 32.6 % (32.0-36.0); PLATELET COUNT 63 TH/MM3 (150-450); RED BLOOD COUNT 3.06 MIL/MM3 (4.50-5.90); RED CELL DISTRIBUTION WIDTH 22.3 % (11.6-17.2)
[2017-07-23] MEDS: CEFEPIME INJ 2,000 MG in SODIUM CHLORIDE 0.9% INJ 100 ML IV SCH ×2 (08:00→20:36)
[2017-07-23] MEDS: INSULIN ASPART SUPPLEMENTAL SCALE SQ SCH ×4 (08:00→20:36)
[2017-07-23 08:04] LABS: ANION GAP 8 MEQ/L (5-15); AST (GOT) 41 U/L (15-37); BICARBONATE 24.2 MEQ/L (21.0-32.0); BLOOD UREA NITROGEN 27 MG/DL (7-18); CHLORIDE 106 MEQ/L (98-107); GLOMERULAR FILTRATION RATE 91 ML/MIN (>89); POTASSIUM 4.2 MEQ/L (3.5-5.1); SODIUM (NA) 138 MEQ/L (136-145)
[2017-07-23 08:08] LABS: ALKALINE PHOSPHATASE 528 U/L (45-117); ALT (GPT) 39 U/L (12-78); TOTAL BILIRUBIN ADULT 3.4 MG/DL (0.2-1.0)
[2017-07-23] MEDS: BUDESONIDE-FORMOTEROL 160/4.5 MCG INHALER INH SCH ×2 (09:00→20:37)
[2017-07-23] MEDS: COLLAGENASE OINT 30 GM TUBE TOPICAL SCH (09:00)
[2017-07-23 09:02] LABS: NEUTROPHIL # MANUAL DIFF 9.7 TH/MM3 (1.8-7.7); POLYS (SEG NEUTROPHILS) 88 % (16-70); WBC DIFF SAMPLE 100
[2017-07-23 09:03] LABS: PLATELET ESTIMATE SMEAR LOW (NORMAL); PLATELET MORPHOLOGY ENLARGED (NORMAL); SCAN/DIFF FINAL DIFF MANUAL
[2017-07-23] MEDS: POTASSIUM CHLORIDE 25 MEQ EFFERVESCENT TAB PO SCH (09:19)
[2017-07-23] MEDS: ENOXAPARIN SODIUM 40 MG/0.4 ML SYRINGE SQ SCH (09:19)
[2017-07-23] MEDS: DIGOXIN 0.125 MG TAB PO SCH (09:19)
[2017-07-23] MEDS: VANCOMYCIN 500 MG VIAL (FOR ORAL USE ONLY) PO SCH ×4 (09:19→20:36)
[2017-07-23] MEDS: PANTOPRAZOLE SOD 40 MG DELAYED RELEASE TAB PO SCH (09:19)
[2017-07-23] MEDS: predniSONE 20 MG TAB PO SCH (09:19)
--- NOTE | 2017-07-23 13:06 | PD.ONC.PN ---
Subjective Subjective Remarks Afebrile overnight. Patient resting in bed. at bedside. Ate [employer] for lunch. States wound vac continues to be painful. Objective Data Date Time Temp Pulse Resp B/P (MAP) Pulse Ox O2 Delivery O2 Flow Rate FiO2 07/23/17 12:08 98.2 90 18 128/62 (84) 97 07/23/17 10:08 74 07/23/17 08:00 98.4 97 18 144/63 (90) 97 07/23/17 07:35 Room Air 07/23/17 04:00 98.3 85 18 130/70 (90) 98 07/23/17 00:00 98.2 90 17 135/67 (89) 98 07/22/17 20:00 Nasal Cannula 2.00 07/22/17 20:00 98.5 88 17 132/65 (87) 98 07/22/17 19:04 56 07/22/17 16:00 97.7 76 18 124/58 (80) 98 07/22/17 15:39 82 07/23/17 07/23/17 07/23/17 07:00 15:00 23:00 Intake Total 240 ml Output Total 550 ml 450 ml Balance -310 ml -450 ml Result Diagram: 07/23/17 0711 07/23/17 0711 Laboratory Results Laboratory Tests Test 07/23/17 07:11 White Blood Count 11.0 TH/MM3 Red Blood Count 3.06 MIL/MM3 Hemoglobin 9.2 GM/DL Hematocrit 28.2 % Mean Corpuscular Volume 92.0 FL Mean Corpuscular Hemoglobin 30.0 PG Mean Corpuscular Hemoglobin Concent 32.6 % Red Cell Distribution Width 22.3 % Platelet Count 63 TH/MM3 Mean Platelet Volume 9.6 FL Differential Total Cells Counted 100 Neutrophils % (Manual) 88 % Lymphocytes % 5 % Monocytes % 7 % Neutrophils # (Manual) 9.7 TH/MM3 Differential Comment FINAL DIFF MANUAL Platelet Estimate LOW Platelet Morphology Comment ENLARGED Blood Urea Nitrogen 27 MG/DL Creatinine 0.84 MG/DL Random Glucose 116 MG/DL Total Protein 5.8 GM/DL Albumin 1.6 GM/DL Calcium Level 7.8 MG/DL Alkaline Phosphatase 528 U/L Aspartate Amino Transf (AST/SGOT) 41 U/L Alanine Aminotransferase (ALT/SGPT) 39 U/L Total Bilirubin 3.4 MG/DL Sodium Level 138 MEQ/L Potassium Level 4.2 MEQ/L Chloride Level 106 MEQ/L Carbon Dioxide Level 24.2 MEQ/L Anion Gap 8 MEQ/L Estimat Glomerular Filtration Rate 91 ML/MIN Culture Results Microbiology Date/Time Source Procedure Growth Status 07/23/17 07:11 Blood Peripheral Aerobic Blood Culture Pending Received 07/23/17 07:11 Blood Peripheral Anaerobic Blood Culture Pending Received Administered Medications Medications (Trade) Dose Ordered Sig/[place] Route PRN Reason Start Time Stop Time Status Last Admin Dose Admin Ondansetron HCl (Zofran Inj) 4 mg Q4H PRN IV PUSH NAUSEA/VOMITING 06/17/17 22:00 06/18/17 09:45 Miscellaneous Information Patient in critical care unit? Ass... Q361D .XX 06/18/17 05:45 06/18/17 05:45 Albuterol Sulfate (Albuterol Neb) 2.5 mg Q2HR NEB PRN NEB DYSPNEA 06/29/17 14:30 07/05/17 08:44 Potassium Bicarb/ Potassium Chloride (K-Lyte Cl Eff) 25 meq DAILY PO 07/05/17 12:00 07/23/17 09:19 Diltiazem HCl (Cardizem) 60 mg Q6HR PO 07/05/17 12:45 07/23/17 12:29 Collagenase (Santyl Oint) 1 applic DAILY TOPICAL 07/07/17 09:00 07/23/17 09:00 Budesonide/ Formoterol Fumarate (Symbicort 160-4.5 Inh) 1 puff Q12HR INH 07/07/17 09:00 07/23/17 09:00 Enoxaparin Sodium (Lovenox Inj) 40 mg Q24H SQ 07/09/17 09:00 07/23/17 09:19 Pantoprazole Sodium (Protonix) 40 mg DAILY PO 07/11/17 09:00 07/23/17 09:19 Digoxin (Lanoxin) 0.125 mg DAILY PO 07/11/17 09:00 07/23/17 09:19 Insulin Aspart (NovoLOG SUPPLEMENTAL SCALE) 1 ACHS SQ 07/11/17 17:00 07/23/17 12:00 Vancomycin HCl (VANCOMYCIN for oral use only) 250 mg QID PO 07/13/17 18:00 08/04/17 18:00 07/23/17 09:19 Patient Own Medication PT OWN MED: VIIB... HS PO 07/15/17 21:00 07/22/17 20:26 Hydromorphone HCl (Dilaudid Pf Inj) 0.5 mg Q4H PRN IV PUSH Breakthrough Pain 07/18/17 12:15 07/23/17 03:20 Cefepime HCl 2000 mg/Sodium Chloride 100 ml @ 200 mls/hr Q12H IV 07/18/17 20:00 07/23/17 08:00 Oxycodone/ Acetaminophen (Percocet 10-325 Mg) 1 tab Q6H PRN PO Pain 7 to 10 07/19/17 14:15 07/23/17 06:14 Oxycodone/ Acetaminophen (Percocet 5-325 Mg) 1 tab Q6H PRN PO Pain 3 to 6 07/19/17 14:15 07/23/17 00:23 Sodium Hypochlorite (Dakin'S 0.125% Soln) 500 ml MoWeFr TOPICAL 07/20/17 13:00 07/22/17 12:57 Prednisone (Deltasone) 20 mg DAILY PO 07/21/17 09:00 07/23/17 09:19 Objective Remarks GENERAL: chronically ill appearing male supine in bed, at bedside. watching TV SKIN: Warm and dry. HEAD: Normocephalic. EYES: No injection or drainage. NECK: Supple, trachea midline CARDIOVASCULAR: +S1/S2 RESPIRATORY: anterior pacheco clear. GASTROINTESTINAL: Abdomen soft, non-tender, nondistended. EXTREMITIES: No cyanosis NEUROLOGICAL: awake and alert, normal speech. Assessment/Plan Assessment Mr. Armendariz is a 67-year-old male who was recently diagnosed with metastatic adenocarcinoma of the rectosigmoid colon and had resection of a metastatic deposit to the liver. He is status post primary surgical resection (3-4 weeks ago) as well as wedge resection of a metastatic deposit to the liver and now has C difficile colitis. He has thrombocytopenia with thrombosis to the cephalic and brachial veins. Admitted to colorectal surgery service initially for weakness/abdominal pain. Then 06/18 became tachy and hypotensive. had elevated lactic acid and bandemia. sepsis suspected. Asphalt Paver was consulted. on 06/20 was intubated d /t hemodynamic instability. platelets also started falling on 06/20. Plan 1. Thrombocytopenia: likely d/t sepsis/DIC there may have been an element of ITP as well given the improvement while he was on corticosteroids. Urine cultures are positive for Pseudomonas. --currently on prednisone at 20 mg once a day. 07/23: platelet count 63K today. will continue to monitor. ok to continue prophylactic dose Lovenox. 2. Metastatic colon cancer: will discuss after current issues resolve because he is presently not a candidate for palliative therapy given his acute medical issues and overall physical debility. 3. Left upper extremity thrombosis involving the cephalic and basilic veins on the L side, noted, asymptomatic, will repeat an US doppler if his extremity is more swollen or symptomatic. He is on prophylactic dose anticoagulation with Lovenox. Attending Statement The exam, history, and the medical decision-making described in the above note were completed with the assistance of the mid-level provider. I reviewed and agree with the findings presented. I attest that I had a [id number] encounter with the patient on the same day, and personally performed and documented my assessment and findings in the medical record. Pt seen and examined. No complaints, at bedside, pt eating donuts. Platelet recovery continue, WBC normal cw resolving and improvement of infection. Kait Blackmon Jul 23, 2017 13:05 Chitra Estrada MD Jul 23, 2017 19:58
--- NOTE | 2017-07-23 16:25 | HHI.PR ---
Subjective Remarks No new complaints from the patient. He does say he has been on Flomax prior to this admit. He has been urinating appropriately. By mouth intake is gradually improving. Objective Vital Signs Date Time Temp Pulse Resp B/P (MAP) Pulse Ox O2 Delivery O2 Flow Rate FiO2 07/23/17 16:14 07/23/17 12:08 98.2 90 18 128/62 (84) 97 07/23/17 10:08 74 07/23/17 08:00 98.4 97 18 144/63 (90) 97 07/23/17 07:35 Room Air 07/23/17 04:00 98.3 85 18 130/70 (90) 98 07/23/17 00:00 98.2 90 17 135/67 (89) 98 07/22/17 20:00 Nasal Cannula 2.00 07/22/17 20:00 98.5 88 17 132/65 (87) 98 07/22/17 19:04 56 I/O 07/22/17 07/22/17 07/22/17 07/23/17 07/23/17 07/23/17 07:00 15:00 23:00 07:00 15:00 23:00 Intake Total 830 ml 240 ml Output Total 750 ml 225 ml 1350 ml 550 ml 450 ml Balance -750 ml -225 ml -520 ml -310 ml -450 ml Intake Oral 720 ml 240 ml IV Total 110 ml Output Urine Total 750 ml 225 ml 1350 ml 550 ml 450 ml # Bowel Movements 0 1 0 Result Diagram: 07/23/17 0711 07/23/17 0711 Objective Remarks GENERAL: NAD, A&Ox3 HEAD: Normocephalic. NECK: Supple, trachea midline. No lymphadenopathy. EYES: No scleral icterus. No injection or drainage. CARDIOVASCULAR: Regular rate and rhythm without murmurs, gallops, or rubs. RESPIRATORY: Breath sounds equal bilaterally. No accessory muscle use. GASTROINTESTINAL: Abdomen soft, non-tender, nondistended. MUSCULOSKELETAL: No cyanosis, or edema. Sacral ulcer has wound VAC in place. SKIN: Warm and dry. NEURO: No focal neurological deficitis. A/P Problem List: (1) Sacral ulcer ICD Code: L98.429 - Non-pressure chronic ulcer of back with unspecified severity (2) 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 Code: Z93.2 - Ileostomy status (3) Cancer of rectum ICD Code: C20 - Malignant neoplasm of rectum Assessment and Plan Assessment and Plan 67 year-old male admitted with respiratory failure secondary to pneumonia and COPD exacerbation. Prolonged time on vent, patient now has decubitus ulcer. Status post wound VAC placement. Leukocytosis is improving. Continuing cefepime and by mouth vancomycin. Follow blood cultures. Flomax initiated. Monitor urine output. Acute respiratory failure Pseudomonal pneumonia COPD with exacerbation Improved Patient extubated 07/06/17 Continue bronchodilators Continue inhaled steroids Continue to mucolytic's Continue incentive spirometry Off systemic steroids A. fib with RVR Improved Follow on telemetry Continue by mouth Cardizem Continue by mouth digoxin Continue Lovenox Continue diuresis Status post left colectomy Colorectal cancer Diverting ileostomy Wedge resection of liver metastases Status post resection of the left ureter Transaminitis Ileus continue Alvimopam 12mg BID for Ileus Continue Han catheter Continue diuretics C. difficile enteritis Continue by mouth vancomycin Follow for clinical improvement Sacral ulcer Colon rectal surgery following Plastic surgery consulted Continue wound care Left upper extremity thrombosis DVT prophylaxis Lovenox Bao Stafford MD Jul 23, 2017 16:25
[2017-07-23] MEDS: VIIBRYD 40 MG PO SCH (20:35)
[2017-07-23] MEDS: TAMSULOSIN HCL 0.4 MG CAP PO SCH (20:36)
[2017-07-24] VITALS (7 sets, daily range): BP systolic 97–128; BP diastolic 56–64; PULSE 82–97; RESP 17–19; TEMP 97.6–98.6; O2SAT 96–100
[2017-07-24] MEDS ORDERED: PHARMACY ORDERED LAB ONE (05:45)
[2017-07-24] MEDS: oxyCODONE/ACETAMINOPHEN 10 MG/325 MG TAB PO PRN ×3 (06:17→23:27)
[2017-07-24] MEDS: DILTIAZEM HCL 60 MG TAB PO SCH ×4 (06:17→23:27)
[2017-07-24] MEDS: INSULIN ASPART SUPPLEMENTAL SCALE SQ SCH ×4 (08:00→21:00)
[2017-07-24] MEDS: COLLAGENASE OINT 30 GM TUBE TOPICAL SCH (09:00)
[2017-07-24] MEDS: PANTOPRAZOLE SOD 40 MG DELAYED RELEASE TAB PO SCH (09:32)
[2017-07-24] MEDS: predniSONE 20 MG TAB PO SCH (09:32)
[2017-07-24] MEDS: ENOXAPARIN SODIUM 40 MG/0.4 ML SYRINGE SQ SCH (09:33)
[2017-07-24] MEDS: DIGOXIN 0.125 MG TAB PO SCH (09:33)
[2017-07-24] MEDS: POTASSIUM CHLORIDE 25 MEQ EFFERVESCENT TAB PO SCH (09:33)
[2017-07-24] MEDS: BUDESONIDE-FORMOTEROL 160/4.5 MCG INHALER INH SCH ×2 (09:34→21:00)
[2017-07-24] MEDS: CEFEPIME INJ 2,000 MG in SODIUM CHLORIDE 0.9% INJ 100 ML IV SCH ×2 (10:37→21:21)
[2017-07-24] MEDS: VANCOMYCIN 500 MG VIAL (FOR ORAL USE ONLY) PO SCH ×4 (10:37→21:21)
--- NOTE | 2017-07-24 15:31 | HHI.PR ---
Subjective Remarks Blood cultures negative at 24 hours. Patient has no new complaints. No diarrhea reported. Objective Vital Signs Date Time Temp Pulse Resp B/P (MAP) Pulse Ox O2 Delivery O2 Flow Rate FiO2 07/24/17 12:00 97.6 97 18 111/56 (74) 100 07/24/17 08:00 97.7 86 18 97/56 (70) 97 07/24/17 04:00 98.5 94 17 108/61 (77) 96 07/24/17 00:00 98.6 97 18 128/64 (85) 98 07/23/17 20:00 98.8 94 18 104/62 (76) 96 07/23/17 20:00 Room Air 07/23/17 19:51 90 07/23/17 16:14 07/23/17 16:00 98.6 95 18 123/63 (83) 98 I/O 07/23/17 07/23/17 07/23/17 07/24/17 07/24/17 07/24/17 07:00 15:00 23:00 07:00 15:00 23:00 Intake Total 240 ml 1040 ml 650 ml Output Total 550 ml 450 ml 925 ml 800 ml Balance -310 ml -450 ml 115 ml -150 ml Intake Oral 240 ml 840 ml 650 ml IV Total 200 ml Output Urine Total 550 ml 450 ml 625 ml 800 ml Stool Total 300 ml # Bowel Movements 0 Result Diagram: 07/23/17 0711 07/23/17 0711 Objective Remarks GENERAL: NAD, A&Ox3 HEAD: Normocephalic. NECK: Supple, trachea midline. No lymphadenopathy. EYES: No scleral icterus. No injection or drainage. CARDIOVASCULAR: Regular rate and rhythm without murmurs, gallops, or rubs. RESPIRATORY: Breath sounds equal bilaterally. No accessory muscle use. GASTROINTESTINAL: Abdomen soft, non-tender, nondistended. MUSCULOSKELETAL: No cyanosis, or edema. Sacral ulcer has wound VAC in place. SKIN: Warm and dry. NEURO: No focal neurological deficitis. A/P Problem List: (1) Sacral ulcer ICD Code: L98.429 - Non-pressure chronic ulcer of back with unspecified severity (2) 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 Code: Z93.2 - Ileostomy status (3) Cancer of rectum ICD Code: C20 - Malignant neoplasm of rectum Assessment and Plan Assessment and Plan 67 year-old male admitted with respiratory failure secondary to pneumonia and COPD exacerbation. Prolonged time on vent, patient now has decubitus ulcer. Status post wound VAC placement. Leukocytosis is improved. Continue cefepime IV. Continue to monitor Pseudomonas bacteremia. Blood cultures negative at 24 hours. Continue by mouth vancomycin for treatment of C. difficile. Acute respiratory failure Pseudomonal pneumonia COPD with exacerbation Improved Patient extubated 07/06/17 Continue bronchodilators Continue inhaled steroids Continue to mucolytic's Continue incentive spirometry Off systemic steroids A. fib with RVR Improved Follow on telemetry Continue by mouth Cardizem Continue by mouth digoxin Continue Lovenox Continue diuresis Status post left colectomy Colorectal cancer Diverting ileostomy Wedge resection of liver metastases Status post resection of the left ureter Transaminitis Ileus continue Alvimopam 12mg BID for Ileus Continue Han catheter Continue diuretics C. difficile enteritis Continue by mouth vancomycin Follow for clinical improvement Sacral ulcer Colon rectal surgery following Plastic surgery consulted Continue wound care Left upper extremity thrombosis DVT prophylaxis Lovenox Bao Stafford MD Jul 24, 2017 15:31
[2017-07-24] MEDS: VIIBRYD 40 MG PO SCH (21:21)
[2017-07-24] MEDS: TAMSULOSIN HCL 0.4 MG CAP PO SCH (21:21)
[2017-07-25] VITALS (9 sets, daily range): BP systolic 110–129; BP diastolic 58–70; PULSE 74–101; RESP 16–18; TEMP 97.7–98.5; O2SAT 96–99
[2017-07-25 05:03] LABS: HEMATOCRIT 24.1 % (39.0-51.0); MEAN CELL VOLUME 92.3 FL (80.0-100.0); MEAN CORPUSCULAR HEMOGLOBIN 29.9 PG (27.0-34.0); MEAN CORPUSCULAR HGB CONC 32.4 % (32.0-36.0); PLATELET COUNT 74 TH/MM3 (150-450); RED BLOOD COUNT 2.61 MIL/MM3 (4.50-5.90); WHITE BLOOD COUNT 10.7 TH/MM3 (4.0-11.0)
[2017-07-25 05:09] LABS: HEMO FLAGS AUTO DIFF
[2017-07-25 05:30] LABS: ALT (GPT) 43 U/L (12-78); ANION GAP 7 MEQ/L (5-15); AST (GOT) 30 U/L (15-37); BICARBONATE 23.2 MEQ/L (21.0-32.0); BLOOD UREA NITROGEN 18 MG/DL (7-18); CHLORIDE 106 MEQ/L (98-107); GLOMERULAR FILTRATION RATE 114 ML/MIN (>89); POTASSIUM 4.3 MEQ/L (3.5-5.1); SODIUM (NA) 136 MEQ/L (136-145)
[2017-07-25 05:32] LABS: ALKALINE PHOSPHATASE 461 U/L (45-117); TOTAL BILIRUBIN ADULT 2.1 MG/DL (0.2-1.0)
[2017-07-25] MEDS: oxyCODONE/ACETAMINOPHEN 10 MG/325 MG TAB PO PRN ×3 (05:38→18:32)
[2017-07-25] MEDS: DILTIAZEM HCL 60 MG TAB PO SCH ×3 (05:38→18:32)
[2017-07-25 07:37] LABS: PLATELET ESTIMATE SMEAR LOW (NORMAL); PLATELET MORPHOLOGY ENLARGED (NORMAL); SCAN/DIFF AUTO DIFF CONFIRMED
[2017-07-25] MEDS: INSULIN ASPART SUPPLEMENTAL SCALE SQ SCH ×4 (08:00→20:53)
--- NOTE | 2017-07-25 08:31 | PD.ONC.PN ---
Subjective Subjective Remarks Patient seen and examined, vital signs, labs and medications reviewed. Microbiology reviewed; blood and urine cultures from 07/19/2017 were positive for Pseudomonas. Patient reports his major complaint is that of pain in his sacral area. He tells me he has been trying to eat better, he continues to feel weak and tells me he has not been up out of bed over the weekend. 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 He denies overt bleeding, fevers , chills, difficulty breathing or chest pain. Objective Data Date Time Temp Pulse Resp B/P (MAP) Pulse Ox O2 Delivery O2 Flow Rate FiO2 07/25/17 04:00 98.5 101 18 119/58 (78) 96 07/25/17 04:00 Room Air 07/25/17 00:00 Room Air 07/25/17 00:00 98.3 93 18 117/61 (79) 99 07/24/17 20:07 91 07/24/17 20:00 Room Air 07/24/17 20:00 98.4 96 19 122/58 (79) 96 07/24/17 17:58 15 07/24/17 16:00 98.1 89 18 118/58 (78) 99 07/24/17 12:00 97.6 97 18 111/56 (74) 100 07/25/17 07/25/17 07/25/17 07:00 15:00 23:00 Output Total 850 ml Balance -850 ml Result Diagram: 07/25/17 0350 07/25/17 0350 Laboratory Results Laboratory Tests Test 07/25/17 03:50 White Blood Count 10.7 TH/MM3 Red Blood Count 2.61 MIL/MM3 Hemoglobin 7.8 GM/DL Hematocrit 24.1 % Mean Corpuscular Volume 92.3 FL Mean Corpuscular Hemoglobin 29.9 PG Mean Corpuscular Hemoglobin Concent 32.4 % Red Cell Distribution Width 22.0 % Platelet Count 74 TH/MM3 Mean Platelet Volume 9.8 FL CBC Comment AUTO DIFF Differential Comment AUTO DIFF CONFIRMED Platelet Estimate LOW Platelet Morphology Comment ENLARGED Blood Urea Nitrogen 18 MG/DL Creatinine 0.69 MG/DL Random Glucose 139 MG/DL Total Protein 5.5 GM/DL Albumin 1.5 GM/DL Calcium Level 7.5 MG/DL Alkaline Phosphatase 461 U/L Aspartate Amino Transf (AST/SGOT) 30 U/L Alanine Aminotransferase (ALT/SGPT) 43 U/L Total Bilirubin 2.1 MG/DL Sodium Level 136 MEQ/L Potassium Level 4.3 MEQ/L Chloride Level 106 MEQ/L Carbon Dioxide Level 23.2 MEQ/L Anion Gap 7 MEQ/L Estimat Glomerular Filtration Rate 114 ML/MIN Culture Results Microbiology Date/Time Source Procedure Growth Status 07/23/17 07:11 Blood Peripheral Aerobic Blood Culture - Preliminary NO GROWTH IN 1 DAY Resulted 07/23/17 07:11 Blood Peripheral Anaerobic Blood Culture - Preliminary NO GROWTH IN 1 DAY Resulted Administered Medications Medications (Trade) Dose Ordered Sig/[place] Route PRN Reason Start Time Stop Time Status Last Admin Dose Admin Ondansetron HCl (Zofran Inj) 4 mg Q4H PRN IV PUSH NAUSEA/VOMITING 06/17/17 22:00 06/18/17 09:45 Miscellaneous Information Patient in critical care unit? Ass... Q361D .XX 06/18/17 05:45 06/18/17 05:45 Albuterol Sulfate (Albuterol Neb) 2.5 mg Q2HR NEB PRN NEB DYSPNEA 06/29/17 14:30 07/05/17 08:44 Potassium Bicarb/ Potassium Chloride (K-Lyte Cl Eff) 25 meq DAILY PO 07/05/17 12:00 07/24/17 09:33 Diltiazem HCl (Cardizem) 60 mg Q6HR PO 07/05/17 12:45 07/25/17 05:38 Collagenase (Santyl Oint) 1 applic DAILY TOPICAL 07/07/17 09:00 07/23/17 09:00 Budesonide/ Formoterol Fumarate (Symbicort 160-4.5 Inh) 1 puff Q12HR INH 07/07/17 09:00 07/24/17 21:00 Enoxaparin Sodium (Lovenox Inj) 40 mg Q24H SQ 07/09/17 09:00 07/24/17 09:33 Pantoprazole Sodium (Protonix) 40 mg DAILY PO 07/11/17 09:00 07/24/17 09:32 Digoxin (Lanoxin) 0.125 mg DAILY PO 07/11/17 09:00 07/24/17 09:33 Insulin Aspart (NovoLOG SUPPLEMENTAL SCALE) 1 ACHS SQ 07/11/17 17:00 07/24/17 13:02 Vancomycin HCl (VANCOMYCIN for oral use only) 250 mg QID PO 07/13/17 18:00 08/04/17 18:00 07/24/17 21:21 Patient Own Medication PT OWN MED: VIIB... HS PO 07/15/17 21:00 07/24/17 21:21 Hydromorphone HCl (Dilaudid Pf Inj) 0.5 mg Q4H PRN IV PUSH Breakthrough Pain 07/18/17 12:15 07/23/17 03:20 Cefepime HCl 2000 mg/Sodium Chloride 100 ml @ 200 mls/hr Q12H IV 07/18/17 20:00 07/24/17 21:21 Oxycodone/ Acetaminophen (Percocet 10-325 Mg) 1 tab Q6H PRN PO Pain 7 to 10 07/19/17 14:15 07/25/17 05:38 Oxycodone/ Acetaminophen (Percocet 5-325 Mg) 1 tab Q6H PRN PO Pain 3 to 6 07/19/17 14:15 07/23/17 00:23 Sodium Hypochlorite (Dakin'S 0.125% Soln) 500 ml MoWeFr TOPICAL 07/20/17 13:00 07/22/17 12:57 Prednisone (Deltasone) 20 mg DAILY PO 07/21/17 09:00 07/24/17 09:32 Tamsulosin HCl (Flomax) 0.4 mg HS PO 07/23/17 21:00 07/24/17 21:21 Objective Remarks GENERAL APPEARANCE: Mr. Armendariz is a middle-aged/elderly male. He is laying in bed. He is awake and alert responsive. He is able to speak in full sentences. He appears chronically ill and frail. Half eaten breakfast tray sitting in front of him. He is attempting to feed himself. HEENT: Head atraumatic, normocephalic. Conjunctivae are pale. Sclerae are anicteric, EOMI, PERRLA, oral exam no pharyngeal erythema. NECK: No palpable cervical or supraclavicular lymphadenopathy. RESPIRATORY: Good air movement bilaterally. Coarse conducted breath sounds. He has prolonged expiratory phase. He is initiating multiple spontaneous breaths. CARDIOVASCULAR: Irregular, tachycardiac, S1 S2, no obvious murmurs, rubs or gallops. ABDOMEN: The belly is soft. An ileostomy bag is noted containing liquid stools. A well-healing laparotomy incision in the midline is appreciated. The abdomen does not appear to be distended, there appears to be no significant increase in tympany on percussion. There are no signs of acute abdomen. LOWER EXTREMITIES: No pretibial edema, no calf tenderness. Upper extremities: Right upper extremity with edema. MUSCULOSKELETAL: Generalized muscle atrophy and generalized weakness without focal deficits. 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 Assessment/Plan Assessment Mr. Armendariz is a 67-year-old male who was recently diagnosed with metastatic adenocarcinoma of the rectosigmoid colon and had resection of a metastatic deposit to the liver. He is status post primary surgical resection (3-4 weeks ago) as well as wedge resection of a metastatic deposit to the liver and now has C difficile colitis. He has thrombocytopenia with thrombosis to the cephalic and brachial veins. Admitted to colorectal surgery service initially for weakness/abdominal pain. Then 06/18 became tachy and hypotensive. had elevated lactic acid and bandemia. sepsis suspected. Events Manager was consulted. on 06/20 was intubated d /t hemodynamic instability. platelets also started falling on 06/20. Plan 1. Thrombocytopenia: likely d/t sepsis/DIC there may have been an element of ITP as well given the improvement while he was on corticosteroids. Urine and blood cultures are positive for Pseudomonas. --currently on prednisone at 20 mg once a day; platelet counts continue to improve now up to 70,000. 2. Metastatic colon cancer: will discuss after current issues resolve because he is presently not a candidate for palliative therapy given his acute medical issues and overall physical debility. 3. Left upper extremity thrombosis involving the cephalic and basilic veins on the L side, noted, asymptomatic, will repeat an US doppler if his extremity is more swollen or symptomatic. He is on prophylactic dose anticoagulation with Lovenox. Disposition: Continue supportive care, emphasis on physical therapy, nutrition, wound care. Anemia noted. We'll hold off on red cell transfusion today because of iron overload; his ferritin level was over 5000 earlier this hospitalization with percent iron saturation at 100%. He was worked up for hereditary hemachromatosis was negative for the 2 most common hereditary hemochromatosis genes; C283Y and H63D genes were negative for mutation. Etiology of iron overload is not known; it may be reasonable to repeat these levels at some point as the studies may be influenced by systemic inflammation. Faraz Ryan MD Jul 25, 2017 08:31
[2017-07-25] MEDS: COLLAGENASE OINT 30 GM TUBE TOPICAL SCH (09:00)
[2017-07-25] MEDS: VANCOMYCIN 500 MG VIAL (FOR ORAL USE ONLY) PO SCH ×4 (09:21→20:52)
[2017-07-25] MEDS: POTASSIUM CHLORIDE 25 MEQ EFFERVESCENT TAB PO SCH (09:21)
[2017-07-25] MEDS: predniSONE 20 MG TAB PO SCH (09:22)
[2017-07-25] MEDS: PANTOPRAZOLE SOD 40 MG DELAYED RELEASE TAB PO SCH (09:22)
[2017-07-25] MEDS: ENOXAPARIN SODIUM 40 MG/0.4 ML SYRINGE SQ SCH (09:22)
[2017-07-25] MEDS: DIGOXIN 0.125 MG TAB PO SCH (09:22)
[2017-07-25] MEDS: BUDESONIDE-FORMOTEROL 160/4.5 MCG INHALER INH SCH ×2 (09:23→20:53)
[2017-07-25] MEDS: CEFEPIME INJ 2,000 MG in SODIUM CHLORIDE 0.9% INJ 100 ML IV SCH ×2 (09:37→20:52)
--- NOTE | 2017-07-25 10:23 | HHI.PR ---
Subjective Remarks The patient said he saw 10 out of 10 pain in his wound. He said the pain medications do help. He says he has been eating. He denies a productive cough. Objective Vitals Vital Signs Date Time Temp Pulse Resp B/P (MAP) Pulse Ox O2 Delivery O2 Flow Rate FiO2 07/25/17 08:05 97.7 74 16 110/62 (78) 98 07/25/17 04:00 98.5 101 18 119/58 (78) 96 07/25/17 04:00 Room Air 07/25/17 00:00 Room Air 07/25/17 00:00 98.3 93 18 117/61 (79) 99 07/24/17 20:07 91 07/24/17 20:00 Room Air 07/24/17 20:00 98.4 96 19 122/58 (79) 96 07/24/17 17:58 15 07/24/17 16:00 98.1 89 18 118/58 (78) 99 07/24/17 12:00 97.6 97 18 111/56 (74) 100 I/O 07/24/17 07/24/17 07/24/17 07/25/17 07/25/17 07/25/17 07:00 15:00 23:00 07:00 15:00 23:00 Intake Total 650 ml 820 ml Output Total 800 ml 600 ml 850 ml Balance -150 ml 220 ml -850 ml Intake Oral 650 ml 720 ml IV Total 100 ml Output Urine Total 800 ml 600 ml 850 ml Result Diagram: 07/25/17 0350 07/25/17 0350 Imaging Last Impressions Chest X-Ray 07/18/17 0000 Signed Impressions: Service Date/Time: Tuesday, July 18, 2017 16:30 - CONCLUSION: Improvement Minimal consolidation remain right base. Alfredo Lora MD FACR Cholangiopancreatography MRI 07/15/17 0000 Signed Impressions: Service Date/Time: Saturday, July 15, 2017 15:02 - CONCLUSION: 1. Ascites with small bilateral pleural effusions. 2. Small contracted gallbladder without definite stones 3. No definite common duct stone. 4. Pancreas obscured by motion. Alfredo Lora MD FACR Liver Ultrasound 07/14/17 0000 Signed Impressions: Service Date/Time: July 16:45 - CONCLUSION: 1. Small volume ascites. 2. Bilateral pleural effusions. 3. Sludge within the gallbladder with a top normal thickness of the gallbladder wall. No sonographic evidence to suggest acute cholecystitis. Pierce Ospina Jr., MD Abdomen X-Ray 07/06/17 0000 Signed Impressions: Service Date/Time: Thursday, July 06, 2017 13:44 - CONCLUSION: 1. Gaseous distention of multiple bowel loops. This has slightly improved. 2. Left-sided nephroureteral stent in good position. Sarwat Suarez MD Upper Extremity Ultrasound 06/23/17 0000 Signed Impressions: Service Date/Time: June 20:03 - CONCLUSION: Noncompressibility right cephalic vein and left basilic vein consistent with venous thrombosis Trav Hsieh MD Lower Extremity Ultrasound 06/23/17 0000 Signed Impressions: Service Date/Time: June 20:16 - CONCLUSION: Normal examination. No evidence DVT Trav Hsieh MD Chest CT 06/20/17 0000 Signed Impressions: Service Date/Time: Tuesday, June 20, 2017 07:42 - CONCLUSION: 1. Bilateral effusions and consolidative changes in both lung bases. Bao Lora MD Abdomen/Pelvis CT 06/20/17 0000 Signed Impressions: Service Date/Time: Tuesday, June 20, 2017 07:39 - CONCLUSION: 1. Dilated stomach and multiple dilated loops of small bowel, likely ileus. 2. No definite gastric volvulus. 3. Fat containing right inguinal hernia which also contains small portion of the urinary bladder and minimal fluid. 4. Left-sided nephroureteral stent in good position. 5. Bibasilar consolidation and small pleural effusions. Sarwat Suarez MD Objective Remarks GENERAL: NAD, A&Ox3 HEAD: Normocephalic. NECK: Supple, trachea midline. No lymphadenopathy. EYES: No scleral icterus. No injection or drainage. CARDIOVASCULAR: Regular rate and rhythm without murmurs, gallops, or rubs. RESPIRATORY: Breath sounds equal bilaterally. No accessory muscle use. GASTROINTESTINAL: Abdomen soft, non-tender, nondistended. MUSCULOSKELETAL: No cyanosis, or edema. Sacral ulcer has wound VAC in place. SKIN: Warm and dry. NEURO: No focal neurological deficitis. PSYCH: Slightly flattened affect. Medications and IVs Current Medications Medications (Trade) Dose Ordered Sig/[place] Route Start Time Stop Time Status Last Admin (Zofran Inj) 4 mg Q4H PRN IV PUSH 06/17/17 22:00 06/18/17 09:45 Miscellaneous Information Patient in critical care unit? Ass... Q361D .XX 06/18/17 05:45 06/18/17 05:45 (Albuterol Neb) 2.5 mg Q2HR NEB PRN NEB 06/29/17 14:30 07/05/17 08:44 (K-Lyte Cl Eff) 25 meq DAILY PO 07/05/17 12:00 07/25/17 09:21 (Cardizem) 60 mg Q6HR PO 07/05/17 12:45 07/25/17 05:38 (Santyl Oint) 1 applic DAILY TOPICAL 07/07/17 09:00 07/23/17 09:00 (Symbicort 160-4.5 Inh) 1 puff Q12HR INH 07/07/17 09:00 07/25/17 09:23 (Lovenox Inj) 40 mg Q24H SQ 07/09/17 09:00 07/25/17 09:22 (Lomotil Tab) 1 tab Q6H PRN PO 07/10/17 11:00 (Protonix) 40 mg DAILY PO 07/11/17 09:00 07/25/17 09:22 (Lanoxin) 0.125 mg DAILY PO 07/11/17 09:00 07/25/17 09:22 (NovoLOG SUPPLEMENTAL SCALE) 1 ACHS SQ 07/11/17 17:00 07/24/17 13:02 (D50w (Vial) Inj) 50 ml UNSCH PRN IV PUSH 07/11/17 15:00 (Glucagon Inj) 1 mg UNSCH PRN OTHER 07/11/17 15:00 (VANCOMYCIN for oral use only) 250 mg QID PO 07/13/17 18:00 08/04/17 18:00 07/25/17 09:21 Patient Own Medication PT OWN MED: VIIB... HS PO 07/15/17 21:00 07/24/17 21:21 (Dilaudid Pf Inj) 0.5 mg Q4H PRN IV PUSH 07/18/17 12:15 07/23/17 03:20 Cefepime HCl 2000 mg/Sodium Chloride 100 ml @ 200 mls/hr Q12H IV 07/18/17 20:00 07/25/17 09:37 (Percocet 10-325 Mg) 1 tab Q6H PRN PO 07/19/17 14:15 07/25/17 05:38 (Percocet 5-325 Mg) 1 tab Q6H PRN PO 07/19/17 14:15 07/23/17 00:23 (Dakin'S 0.125% Soln) 500 ml MoWeFr TOPICAL 07/20/17 13:00 07/22/17 12:57 (Deltasone) 20 mg DAILY PO 07/21/17 09:00 07/25/17 09:22 (Flomax) 0.4 mg HS PO 07/23/17 21:00 07/24/17 21:21 Date of Insertion: Jun 18, 2017 Side: Left Location: Internal A/P Problem List: (1) Tachycardia ICD Code: R00.0 - Tachycardia, unspecified (2) Hypertension ICD Code: I10 - Essential (primary) hypertension (3) Leukocytosis ICD Code: D72.829 - Elevated white blood cell count, unspecified (4) UTI (urinary tract infection) ICD Code: N39.0 - Urinary tract infection, site not specified (5) Acute kidney injury ICD Code: N17.9 - Acute kidney failure, unspecified (6) Cancer of rectum ICD Code: C20 - Malignant neoplasm of rectum (7) 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 Code: Z93.2 - Ileostomy status (8) Sepsis ICD Code: A41.9 - Sepsis, unspecified organism Assessment and Plan 67 year-old male admitted with respiratory failure secondary to pneumonia and COPD exacerbation. Prolonged time on vent, patient now has decubitus ulcer. Status post wound VAC placement. Leukocytosis is improved. Acute respiratory failure Pseudomonal pneumonia Pseudomonas bacteremia COPD with exacerbation Improved Patient extubated 07/06/17 - Continue bronchodilators - Continue inhaled steroids - Continue to mucolytic's - Continue incentive spirometry - Off systemic steroids - continue PT/ OT - continue IV cefepime A. fib with RVR Improved - Follow on telemetry - Continue by mouth Cardizem - Continue by mouth digoxin - Continue Lovenox - Continue diuresis Status post left colectomy Colorectal cancer Diverting ileostomy Wedge resection of liver metastases Status post resection of the left ureter Transaminitis Ileus - continue Alvimopam 12mg BID for Ileus - Continue Han catheter - Continue diuretics - follow up with oncology and surgery - continue calorie count C. difficile enteritis - Continue by mouth vancomycin per ID - Follow for clinical improvement Sacral ulcer Colon rectal surgery following Plastic surgery consulted. Cleared for discharge. - Continue wound care Left upper extremity thrombosis Asymptomatic. - continue prophylactic Lovenox. Follow up with hematology. DVT prophylaxis Lovenox Discharge Planning Will need placement with wound vac following calorie count. Will need ID antibiotic referral Norman Liz DO Jul 25, 2017 10:23
--- NOTE | 2017-07-25 11:57 | HHI.PR ---
Subjective Remarks Pseudomonas UTI. On Cefepime. Needs more nutrition. Says he ate more yesterday. Apparently pt and became upset at discussing PEG tube. Objective Vital Signs Date Time Temp Pulse Resp B/P (MAP) Pulse Ox O2 Delivery O2 Flow Rate FiO2 07/25/17 08:05 97.7 74 16 110/62 (78) 98 07/25/17 04:00 98.5 101 18 119/58 (78) 96 07/25/17 04:00 Room Air 07/25/17 00:00 Room Air 07/25/17 00:00 98.3 93 18 117/61 (79) 99 07/24/17 20:07 91 07/24/17 20:00 Room Air 07/24/17 20:00 98.4 96 19 122/58 (79) 96 07/24/17 17:58 15 07/24/17 16:00 98.1 89 18 118/58 (78) 99 07/24/17 12:00 97.6 97 18 111/56 (74) 100 I/O 07/24/17 07/24/17 07/24/17 07/25/17 07/25/17 07/25/17 07:00 15:00 23:00 07:00 15:00 23:00 Intake Total 650 ml 820 ml Output Total 800 ml 600 ml 850 ml Balance -150 ml 220 ml -850 ml Intake Oral 650 ml 720 ml IV Total 100 ml Output Urine Total 800 ml 600 ml 850 ml Result Diagram: 07/25/1734907/25/17 0350 Objective Remarks VS-S Abd: Soft. Flat. Wound healed. Stoma working.Stools thick . I&Os: OK Labs: WBC going down Assessment and Plan Assessment and Plan Decubitus Poor nutrition Severe deconditioning UTI resolved. D/C to Rehab when all consultants agree Checking status of calorie count. Luca Geiger MD Jul 25, 2017 11:57
[2017-07-25] MEDS: SODIUM HYPOCHLORITE 0.125% 500 ML BTL TOPICAL SCH (13:00)
--- NOTE | 2017-07-25 13:04 | HHI.IDPN ---
Note Infectious Disease Note Patient feels better. Appears to be eating more. Afebrile. WBC down to normal. Afebrile. Denies chills. 08/22. Repeat blood culture - no growth. Admitted to the hospital with weakness, abdominal pain and nausea. The patient is status post anterior resection of colon and rectal areas and anastomosis along with a diverting ileostomy and also resection of a segment of left ureter with ureteral anastomosis and double-J stent placement three weeks prior. PAST MEDICAL HISTORY: 1. Hypertension. 2. Left knee surgery. 3. Metastatic colon cancer status post resection and colo-anal anastomosis and also resection and re-anastomosis of the left ureter with double-J stent placement. ALLERGIES: CODEINE. ABX: Vancomycin PO. Cefepime. SOCIAL HISTORY: . Positive tobacco use. No alcohol. No illicit drug use. OBJECTIVE: Vital Signs Date Time Temp Pulse Resp B/P (MAP) Pulse Ox O2 Delivery O2 Flow Rate FiO2 07/25/17 12:05 98.0 87 16 124/61 (82) 98 07/25/17 08:05 97.7 74 16 110/62 (78) 98 07/25/17 04:00 98.5 101 18 119/58 (78) 96 07/25/17 04:00 Room Air 07/25/17 00:00 Room Air 07/25/17 00:00 98.3 93 18 117/61 (79) 99 07/24/17 20:07 91 07/24/17 20:00 Room Air 07/24/17 20:00 98.4 96 19 122/58 (79) 96 07/24/17 17:58 15 07/24/17 16:00 98.1 89 18 118/58 (78) 99 Laboratory Tests Test 07/25/17 03:50 White Blood Count 10.7 TH/MM3 Red Blood Count 2.61 MIL/MM3 Hemoglobin 7.8 GM/DL Hematocrit 24.1 % Mean Corpuscular Volume 92.3 FL Mean Corpuscular Hemoglobin 29.9 PG Mean Corpuscular Hemoglobin Concent 32.4 % Red Cell Distribution Width 22.0 % Platelet Count 74 TH/MM3 Mean Platelet Volume 9.8 FL CBC Comment AUTO DIFF Differential Comment AUTO DIFF CONFIRMED Platelet Estimate LOW Platelet Morphology Comment ENLARGED Laboratory Tests Test 07/25/17 03:50 Blood Urea Nitrogen 18 MG/DL Creatinine 0.69 MG/DL Random Glucose 139 MG/DL Total Protein 5.5 GM/DL Albumin 1.5 GM/DL Calcium Level 7.5 MG/DL Alkaline Phosphatase 461 U/L Aspartate Amino Transf (AST/SGOT) 30 U/L Alanine Aminotransferase (ALT/SGPT) 43 U/L Total Bilirubin 2.1 MG/DL Sodium Level 136 MEQ/L Potassium Level 4.3 MEQ/L Chloride Level 106 MEQ/L Carbon Dioxide Level 23.2 MEQ/L Anion Gap 7 MEQ/L Estimat Glomerular Filtration Rate 114 ML/MIN Microbiology Date/Time Source Procedure Growth Status 07/23/17 07:11 Blood Peripheral Aerobic Blood Culture - Preliminary NO GROWTH IN 2 DAYS Resulted 07/23/17 07:11 Blood Peripheral Anaerobic Blood Culture - Preliminary NO GROWTH IN 2 DAYS Resulted Microbiology Date/Time Source Procedure Growth Status 07/19/17 19:10 Blood Peripheral Aerobic Blood Culture - Preliminary Pseudomonas Aeruginosa Resulted 07/19/17 19:10 Blood Peripheral Anaerobic Blood Culture - Preliminary NO GROWTH IN 3 DAYS Resulted IMAGING: Chest X-Ray 07/18/17 0000 Signed Impressions: Service Date/Time: Tuesday, July 18, 2017 16:30 - CONCLUSION: Improvement Minimal consolidation remain right base. Alfredo Lora MD FACR PHYSICAL EXAMINATION: GENERAL: No acute distress. HEENT: No icterus. Oropharynx with dry mucosa. NECK: Supple. LUNGS: Decreased clear breath sounds. HEART: Regular S1-S2 without murmurs, rubs or gallops. ABDOMEN: Positive bowel sounds. Soft. Non tender. Sacrum decubitus wound vac in place. EXTREMITIES: No clubbing or cyanosis, edema. SKIN: No rash. NEUROLOGIC: Nonfocal. PSYCH: Calm and cooperative. IMPRESSION: 1. Post treatment for Severe sepsis/ Bandemia. Status post recent surgery for rectal cancer and recent ureteral resection and double J ureteral stent. 2. C difficile colitis. Pseudomembranous enteritis/sepsis. 3. Acute respiratory failure. Extubated. 4. Pseudomonas pneumonia and UTI. Treated and improved. 5. Leukocytosis. Improved to normal then elevated again. Elevation likely from UTI. WBC Decreasing. 6. Bacteremia - Pseudomonas. 7. UTI - Pseudomonas. RECOMMENDATIONS: 1. Continue PO Vancomycin at 250 mg. 2. Continue Cefepime IV until 07/29. 3. Follow repeat blood culture. Orders on chart for IV Cefepime. Can be completed outpatient when discharged from hospital. El Espinoza MD Jul 25, 2017 13:04
--- NOTE | 2017-07-25 13:07 | HHI.FF ---
Infusion Therapy Location of Infusion Therapy: [facility] Infusion Therapy Order Patient Information Patient Weight 55.4 kg Diagnosis: Coded Allergies: codeine (Verified Adverse Reaction, Severe, Nausea/Vomiting, 05/26/17) Administer Medication Cefepime 2 grams IV q 12 hours Stop Treatment: Jul 29, 2017 Additional Information Venous access: Other Additional Instructions [x] Peripheral flush and dressing changes per protocol [x] Implanted port and central personal lines account executive: * Implanted port: 10 ml Normal Saline followed by 5 ml Heparin 100 units/ml Heparin flush after each use and monthly to maintain. [] May leave port accessed during therapy. [] May leave peripheral site accessed for duration of therapy. [x] If patient has SOB or respiratory distress, check oxygen saturation. If less than 90% or clinical signs of respiratory distress, administer oxygen at 2 L/min. via nasal cannula and notify physician. [x] Anaphylaxis/Reaction orders: * Stop infusion. * Keep IV line open with saline flush. * Notify physician. * Monitor vital signs every 15 minutes until symptoms resolve. * Check Oxygen saturation; Oxygen at 2 L/min. via nasal cannula if less than 90% or clinical signs of respiratory distress. * Administer diphenhydramine (Benadryl) 25 mg IV STAT, (unless patient has received as pre-med). May repeat once, if necessary. * Solu-Cortef 250 mg IVP over 30-60 seconds, use 100 mg vials for each dissolution. * Epinephrine (1mg/1 ml) 0.3 mg subcutaneously or IVP now with any signs of respiratory distress. * Check with physician for new additional pre-med orders if patient is re- challenged or re-treated. [x] May remove PICC line when treatment complete, after confirming with Physician. [x] If the patient is admitted to the hospital, the ED, or transferred via [facility] , complete transfer form including medication reconciliation order sheet. Laboratory Tests Weekly Labs: El Phillips MD Jul 25, 2017 13:07
[2017-07-25] MEDS ORDERED: CEFE2INJ2 IV (13:12)
--- NOTE | 2017-07-25 15:03 | PD.WCN.NOT ---
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 2. Please soak wound for 10 minutes with 0.125% dakins solution with VAC dressing changes. 3. continue to change wound VAC dressing Tuesday, Tuesday and Tuesday with settings at 125 mm/hg continuous low suction. Neg Pressure Wound Therapy Wound Location Wound Location: Sacrum Wound Description Wound bed appearance: Full thickness wound to sacrum with ~30% adherent yellow slough, ~20% bone, ~20 % facia, and ~30% muscle tissue. Wound has minimal sero-sanguinous drainage that is active and is without odor Periwound appearance: Other (Improving full thickness skin loss between 2 and 4 o'clock and full thickness skin loss from 9 and 10 o'clock) Settings Suction: 125 mmHg, Continuous Intensity: Low Other Information: Bridged, Windowpaned, Mushroomed Foam type: Black Number of pieces: 1 Additonal Information Patient seen for assistance with VAC dressing change. Removed Dakin's soaked gauze from wound bed after Meliton alvarez soaked sacral wound for 10 minutes. Skin prep was applied to periwound before window paning wound with VAC drape and bridging VAC drape to to L anterior thigh.Xeroform was applied over full thickness skin loss to periwound between 2 and 4 o'clock and at 9 and 10 o' clock to protect from VAC drape .Black VAC granufoam was then cut into long strip and coiled in to wound bed to reach undermined areas in a cinnamon roll fashion. Bridged one long strip of granufoam from wound bed to L anterior thigh. Stoma paste was applied to gluteal cleft to seal VAC dressing. Applied Sensi trac pad with attached mushroom cap of black granufoam over bridged granufoam.Covered all exposed VAC granufoam with VAC drape. Wound Vac suctioning at 125 mm/hg continuous low suction with low leak rate. Patient is comfortable positioned to R side. Lowered bed to a safe height before leaving room. Next VAC dressing change is due on Tuesday07/27/2017. Yasmine Aragon [facility] Jul 25, 2017 15:03
[2017-07-25] MEDS: VIIBRYD 40 MG PO SCH (20:52)
[2017-07-25] MEDS: TAMSULOSIN HCL 0.4 MG CAP PO SCH (20:53)
[2017-07-26] VITALS (7 sets, daily range): BP systolic 112–133; BP diastolic 57–66; PULSE 79–92; RESP 16–18; TEMP 97.1–98.2; O2SAT 95–100
[2017-07-26] MEDS: oxyCODONE/ACETAMINOPHEN 10 MG/325 MG TAB PO PRN ×4 (00:23→21:22)
[2017-07-26] MEDS: DILTIAZEM HCL 60 MG TAB PO SCH ×4 (00:23→18:00)
[2017-07-26 05:34] LABS: HEMATOCRIT 24.5 % (39.0-51.0); MEAN CELL VOLUME 93.2 FL (80.0-100.0); MEAN CORPUSCULAR HEMOGLOBIN 30.2 PG (27.0-34.0); MEAN CORPUSCULAR HGB CONC 32.5 % (32.0-36.0); PLATELET COUNT 92 TH/MM3 (150-450); RED BLOOD COUNT 2.63 MIL/MM3 (4.50-5.90); RED CELL DISTRIBUTION WIDTH 22.1 % (11.6-17.2); WHITE BLOOD COUNT 9.2 TH/MM3 (4.0-11.0)
[2017-07-26 05:44] LABS: REVIEW FLAG FINAL
[2017-07-26 06:05] LABS: BICARBONATE 22.5 MEQ/L (21.0-32.0); MAGNESIUM 1.8 MG/DL (1.5-2.5); POTASSIUM 4.5 MEQ/L (3.5-5.1)
[2017-07-26] MEDS: INSULIN ASPART SUPPLEMENTAL SCALE SQ SCH ×4 (08:00→21:00)
[2017-07-26] MEDS: CEFEPIME INJ 2,000 MG in SODIUM CHLORIDE 0.9% INJ 100 ML IV SCH ×2 (08:00→21:22)
[2017-07-26] MEDS: COLLAGENASE OINT 30 GM TUBE TOPICAL SCH (09:00)
[2017-07-26] MEDS: ENOXAPARIN SODIUM 40 MG/0.4 ML SYRINGE SQ SCH (09:53)
[2017-07-26] MEDS: predniSONE 20 MG TAB PO SCH (09:53)
[2017-07-26] MEDS: PANTOPRAZOLE SOD 40 MG DELAYED RELEASE TAB PO SCH (09:53)
[2017-07-26] MEDS: POTASSIUM CHLORIDE 25 MEQ EFFERVESCENT TAB PO SCH (09:53)
[2017-07-26] MEDS: VANCOMYCIN 500 MG VIAL (FOR ORAL USE ONLY) PO SCH ×4 (09:53→21:21)
[2017-07-26] MEDS: DIGOXIN 0.125 MG TAB PO SCH (09:53)
[2017-07-26] MEDS: BUDESONIDE-FORMOTEROL 160/4.5 MCG INHALER INH SCH ×2 (09:55→21:00)
--- NOTE | 2017-07-26 12:49 | HHI.PR ---
Subjective Remarks The patient was resting comfortably in bed. He has been snacking well. Family at bedside, their questions were answered. Discussed with nursing. Objective Vitals Vital Signs Date Time Temp Pulse Resp B/P (MAP) Pulse Ox O2 Delivery O2 Flow Rate FiO2 07/26/17 08:00 97.4 92 18 119/63 (81) 97 07/26/17 05:25 Room Air 07/26/17 04:27 97.6 85 16 133/66 (88) 100 07/26/17 00:00 Room Air 07/26/17 00:00 Room Air 07/25/17 23:00 98.1 87 16 120/60 (80) 97 07/25/17 20:18 97.8 91 16 123/65 (84) 98 07/25/17 20:17 96 07/25/17 20:00 Room Air 07/25/17 16:05 98.4 91 16 129/70 (89) 98 I/O 07/25/17 07/25/17 07/25/17 07/26/17 07/26/17 07/26/17 07:00 15:00 23:00 07:00 15:00 23:00 Intake Total 100 ml 480 ml 720 ml Output Total 850 ml 400 ml 1700 ml 1400 ml Balance -850 ml -300 ml -1220 ml -680 ml Intake Oral 380 ml 720 ml IV Total 100 ml 100 ml Output Urine Total 850 ml 400 ml 1200 ml 1200 ml Stool Total 500 ml 200 ml # Bowel Movements 0 Result Diagram: 07/26/17 0345 07/26/17 0345 Imaging Last Impressions Chest X-Ray 07/18/17 0000 Signed Impressions: Service Date/Time: Tuesday, July 18, 2017 16:30 - CONCLUSION: Improvement Minimal consolidation remain right base. Alfredo Lora MD FACR Cholangiopancreatography MRI 07/15/17 0000 Signed Impressions: Service Date/Time: Saturday, July 15, 2017 15:02 - CONCLUSION: 1. Ascites with small bilateral pleural effusions. 2. Small contracted gallbladder without definite stones 3. No definite common duct stone. 4. Pancreas obscured by motion. Alfredo Lora MD FACR Liver Ultrasound 07/14/17 0000 Signed Impressions: Service Date/Time: July 16:45 - CONCLUSION: 1. Small volume ascites. 2. Bilateral pleural effusions. 3. Sludge within the gallbladder with a top normal thickness of the gallbladder wall. No sonographic evidence to suggest acute cholecystitis. Pierce Ospina Jr., MD Abdomen X-Ray 07/06/17 Signed Impressions: Service Date/Time: Thursday, July 06, 2017 13:44 - CONCLUSION: 1. Gaseous distention of multiple bowel loops. This has slightly improved. 2. Left-sided nephroureteral stent in good position. Sarwat Suarez MD Upper Extremity Ultrasound 06/23/17 Signed Impressions: Service Date/Time: June 20:03 - CONCLUSION: Noncompressibility right cephalic vein and left basilic vein consistent with venous thrombosis Trav Hsieh MD Lower Extremity Ultrasound 06/23/17 Signed Impressions: Service Date/Time: June 20:16 - CONCLUSION: Normal examination. No evidence DVT Trav Hsieh MD Chest CT 06/20/17 Signed Impressions: Service Date/Time: Tuesday, June 20, 2017 07:42 - CONCLUSION: 1. Bilateral effusions and consolidative changes in both lung bases. Bao Lora MD Abdomen/Pelvis CT 06/20/17 Signed Impressions: Service Date/Time: Tuesday, June 20, 2017 07:39 - CONCLUSION: 1. Dilated stomach and multiple dilated loops of small bowel, likely ileus. 2. No definite gastric volvulus. 3. Fat containing right inguinal hernia which also contains small portion of the urinary bladder and minimal fluid. 4. Left-sided nephroureteral stent in good position. 5. Bibasilar consolidation and small pleural effusions. Sarwat Suarez MD Objective Remarks GENERAL: NAD, A&Ox3 HEAD: Normocephalic. NECK: Supple, trachea midline. No lymphadenopathy. EYES: No scleral icterus. No injection or drainage. CARDIOVASCULAR: Regular rate and rhythm without murmurs, gallops, or rubs. RESPIRATORY: Breath sounds equal bilaterally. No accessory muscle use. GASTROINTESTINAL: Abdomen soft, non-tender, nondistended. MUSCULOSKELETAL: No cyanosis, or edema. Sacral ulcer has wound VAC in place. SKIN: Warm and dry. NEURO: No focal neurological deficitis. PSYCH: Slightly flattened affect. Medications and IVs Current Medications Medications (Trade) Dose Ordered Sig/[place] Route Start Time Stop Time Status Last Admin (Zofran Inj) 4 mg Q4H PRN IV PUSH 06/17/17 22:00 06/18/17 09:45 Miscellaneous Information Patient in critical care unit? Ass... Q361D .XX 06/18/17 05:45 06/18/17 05:45 (Albuterol Neb) 2.5 mg Q2HR NEB PRN NEB 06/29/17 14:30 07/05/17 08:44 (K-Lyte Cl Eff) 25 meq DAILY PO 07/05/17 12:00 07/26/17 09:53 (Cardizem) 60 mg Q6HR PO 07/05/17 12:45 07/26/17 12:36 (Santyl Oint) 1 applic DAILY TOPICAL 07/07/17 09:00 07/23/17 09:00 (Symbicort 160-4.5 Inh) 1 puff Q12HR INH 07/07/17 09:00 07/26/17 09:55 (Lovenox Inj) 40 mg Q24H SQ 07/09/17 09:00 07/26/17 09:53 (Lomotil Tab) 1 tab Q6H PRN PO 07/10/17 11:00 (Protonix) 40 mg DAILY PO 07/11/17 09:00 07/26/17 09:53 (Lanoxin) 0.125 mg DAILY PO 07/11/17 09:00 07/26/17 09:53 (NovoLOG SUPPLEMENTAL SCALE) 1 ACHS SQ 07/11/17 17:00 07/25/17 20:53 (D50w (Vial) Inj) 50 ml UNSCH PRN IV PUSH 07/11/17 15:00 (Glucagon Inj) 1 mg UNSCH PRN OTHER 07/11/17 15:00 (VANCOMYCIN for oral use only) 250 mg QID PO 07/13/17 18:00 08/04/17 18:00 07/26/17 12:36 Patient Own Medication PT OWN MED: VIIB... HS PO 07/15/17 21:00 07/25/17 20:52 (Dilaudid Pf Inj) 0.5 mg Q4H PRN IV PUSH 07/18/17 12:15 07/23/17 03:20 Cefepime HCl 2000 mg/Sodium Chloride 100 ml @ 200 mls/hr Q12H IV 07/18/17 20:00 07/26/17 08:00 (Percocet 10-325 Mg) 1 tab Q6H PRN PO 07/19/17 14:15 07/26/17 12:36 (Percocet 5-325 Mg) 1 tab Q6H PRN PO 07/19/17 14:15 07/23/17 00:23 (Dakin'S 0.125% Soln) 500 ml MoWeFr TOPICAL 07/20/17 13:00 07/25/17 13:00 (Deltasone) 20 mg DAILY PO 07/21/17 09:00 07/26/17 09:53 (Flomax) 0.4 mg HS PO 07/23/17 21:00 07/25/17 20:53 Date of Insertion: Jun 18, 2017 Side: Left Location: Internal A/P Problem List: (1) Tachycardia ICD Code: R00.0 - Tachycardia, unspecified (2) Hypertension ICD Code: I10 - Essential (primary) hypertension (3) Leukocytosis ICD Code: D72.829 - Elevated white blood cell count, unspecified (4) UTI (urinary tract infection) ICD Code: N39.0 - Urinary tract infection, site not specified (5) Acute kidney injury ICD Code: N17.9 - Acute kidney failure, unspecified (6) Cancer of rectum ICD Code: C20 - Malignant neoplasm of rectum (7) 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 Code: Z93.2 - Ileostomy status (8) Sepsis ICD Code: A41.9 - Sepsis, unspecified organism Assessment and Plan 67 year-old male admitted with respiratory failure secondary to pneumonia and COPD exacerbation. Prolonged time on vent, patient now has decubitus ulcer. Status post wound VAC placement. Leukocytosis is improved. Acute respiratory failure Pseudomonal pneumonia Pseudomonas bacteremia COPD with exacerbation Improved Patient extubated 07/06/17, on room air. - Continue bronchodilators, inhaled steroids and mucolytic's - Continue incentive spirometry - Off systemic steroids - continue PT/ OT - continue IV cefepime per infectious disease A. fib with RVR Improved - Follow on telemetry - Continue by mouth Cardizem - Continue by mouth digoxin - Continue Lovenox - Continue diuresis Status post left colectomy Colorectal cancer Diverting ileostomy Wedge resection of liver metastases Status post resection of the left ureter Transaminitis Ileus - continue Alvimopam 12mg BID for Ileus - Continue Han catheter - Continue diuretics - follow up with oncology and surgery - PT/ OT - ADAT C. difficile enteritis - Continue by mouth vancomycin per ID - Follow for clinical improvement Sacral ulcer Colon rectal surgery following Plastic surgery consulted. Cleared for discharge. - Continue wound care Left upper extremity thrombosis Asymptomatic. - continue prophylactic Lovenox. Follow up with hematology. DVT prophylaxis Lovenox Discharge Planning Will need placement with wound vac. Pt wants rehab, not SNF Norman Liz DO Jul 26, 2017 12:49
--- NOTE | 2017-07-26 17:13 | HHI.PR ---
Subjective Remarks Pseudomonas UTI resolved. On Cefepime. Needs more nutrition. Apparently pt and became upset at discussing PEG tube. Objective Vital Signs Date Time Temp Pulse Resp B/P (MAP) Pulse Ox O2 Delivery O2 Flow Rate FiO2 07/26/17 16:00 98.1 80 18 123/57 (79) 97 07/26/17 12:00 97.1 85 18 113/66 (82) 96 07/26/17 08:00 92 07/26/17 08:00 97.4 92 18 119/63 (81) 97 07/26/17 08:00 96 Room Air 21 07/26/17 05:25 Room Air 07/26/17 04:27 97.6 85 16 133/66 (88) 100 07/26/17 00:00 Room Air 07/26/17 00:00 Room Air 07/25/17 23:00 98.1 87 16 120/60 (80) 97 07/25/17 20:18 97.8 91 16 123/65 (84) 98 07/25/17 20:17 96 07/25/17 20:00 Room Air I/O 07/25/17 07/25/17 07/25/17 07/26/17 07/26/17 07/26/17 07:00 15:00 23:00 07:00 15:00 23:00 Intake Total 100 ml 480 ml 720 ml 100 ml Output Total 850 ml 400 ml 1700 ml 1400 ml Balance -850 ml -300 ml -1220 ml -680 ml 100 ml Intake Oral 380 ml 720 ml IV Total 100 ml 100 ml 100 ml Output Urine Total 850 ml 400 ml 1200 ml 1200 ml Stool Total 500 ml 200 ml # Bowel Movements 0 Result Diagram: 07/26/17 0345 07/26/17 034 Objective Remarks VS-S Abd: Soft. Flat. Wound healed. Stoma working.Stools thick . I&Os: OK Assessment and Plan Assessment and Plan Decubitus Poor nutrition Severe deconditioning UTI resolved. D/C to Rehab when all consultants agree Await calorie counts Luca Geiger MD Jul 26, 2017 17:13
[2017-07-26] MEDS: VIIBRYD 40 MG PO SCH (21:22)
[2017-07-26] MEDS: TAMSULOSIN HCL 0.4 MG CAP PO SCH (21:22)
[2017-07-27] MEDS: DILTIAZEM HCL 60 MG TAB PO SCH ×4 (01:05→18:03)
[2017-07-27 04:25] VITALS: BP 116/59; PULSE 80; RESP 18; TEMP 97.7; O2SAT 97
[2017-07-27 05:50] LABS: MEAN CELL VOLUME 94.1 FL (80.0-100.0); MEAN CORPUSCULAR HEMOGLOBIN 31.1 PG (27.0-34.0); PLATELET COUNT 114 TH/MM3 (150-450); RED BLOOD COUNT 2.66 MIL/MM3 (4.50-5.90); RED CELL DISTRIBUTION WIDTH 22.2 % (11.6-17.2); REVIEW FLAG FINAL; WHITE BLOOD COUNT 10.6 TH/MM3 (4.0-11.0)
[2017-07-27 06:12] LABS: BICARBONATE 21.1 MEQ/L (21.0-32.0); MAGNESIUM 1.9 MG/DL (1.5-2.5); POTASSIUM 4.4 MEQ/L (3.5-5.1)
[2017-07-27 08:00] VITALS: BP 124/64; PULSE 76; PULSE 85; RESP 20; TEMP 98.1; O2SAT 100
[2017-07-27] MEDS: INSULIN ASPART SUPPLEMENTAL SCALE SQ SCH ×4 (08:00→21:00)
--- NOTE | 2017-07-27 08:17 | HHI.PR ---
Subjective Remarks Pseudomonas UTI resolved. On Cefepime. Needs more nutrition. Objective Vital Signs Date Time Temp Pulse Resp B/P (MAP) Pulse Ox O2 Delivery O2 Flow Rate FiO2 07/27/17 04:25 97.7 80 18 116/59 (78) 97 07/26/17 21:30 Room Air 07/26/17 20:04 79 07/26/17 20:00 98.1 85 18 119/59 (79) 95 07/26/17 16:00 98.1 80 18 123/57 (79) 97 07/26/17 12:00 97.1 85 18 113/66 (82) 96 I/O 07/26/17 07/26/17 07/26/17 07/27/17 07/27/17 07/27/17 07:00 15:00 23:00 07:00 15:00 23:00 Intake Total 720 ml 100 ml 1300 ml 240 ml Output Total 1400 ml 300 ml 650 ml Balance -680 ml 100 ml 1000 ml -410 ml Intake Oral 720 ml 1200 ml 240 ml IV Total 100 ml 100 ml Output Urine Total 1200 ml 650 ml Stool Total 200 ml 300 ml # Voids 4 # Bowel Movements 0 Result Diagram: 07/27/17 0445 07/27/17 0445 Objective Remarks VS-S Abd: Soft. Flat. Wound healed. Stoma working.Stools thick . I&Os: OK Assessment and Plan Assessment and Plan Decubitus Poor nutrition Severe deconditioning UTI resolved. D/C to Rehab when all consultants agree Await calorie counts D/C Cefepime on day 10 Luca Geiger MD Jul 27, 2017 08:17
[2017-07-27] MEDS: PANTOPRAZOLE SOD 40 MG DELAYED RELEASE TAB PO SCH (08:45)
[2017-07-27] MEDS: predniSONE 10 MG TAB PO SCH (08:45)
[2017-07-27] MEDS: DIGOXIN 0.125 MG TAB PO SCH (08:45)
[2017-07-27] MEDS: oxyCODONE/ACETAMINOPHEN 10 MG/325 MG TAB PO PRN ×3 (08:46→18:08)
[2017-07-27] MEDS: CEFEPIME INJ 2,000 MG in SODIUM CHLORIDE 0.9% INJ 100 ML IV SCH ×2 (08:49→21:11)
[2017-07-27] MEDS: ENOXAPARIN SODIUM 40 MG/0.4 ML SYRINGE SQ SCH (08:49)
[2017-07-27] MEDS: VANCOMYCIN 500 MG VIAL (FOR ORAL USE ONLY) PO SCH ×4 (08:50→21:11)
[2017-07-27] MEDS: COLLAGENASE OINT 30 GM TUBE TOPICAL SCH (09:00)
[2017-07-27] MEDS: POTASSIUM CHLORIDE 25 MEQ EFFERVESCENT TAB PO SCH (09:00)
[2017-07-27] MEDS: BUDESONIDE-FORMOTEROL 160/4.5 MCG INHALER INH SCH ×2 (09:00→21:00)
[2017-07-27] MEDS: HYDROmorphone HCL PF 0.5 MG/0.5 ML SYRINGE IV PUSH PRN (09:58)
--- NOTE | 2017-07-27 11:44 | HHI.PR ---
Subjective Remarks The patient said that the pain in his buttocks was too much to work with physical therapy. Otherwise he has no acute complaints. Discussed with nursing. Objective Vitals Vital Signs Date Time Temp Pulse Resp B/P (MAP) Pulse Ox O2 Delivery O2 Flow Rate FiO2 07/27/17 08:00 98.1 85 20 124/64 (84) 100 07/27/17 04:25 97.7 80 18 116/59 (78) 97 07/26/17 21:30 Room Air 07/26/17 20:04 79 07/26/17 20:00 98.1 85 18 119/59 (79) 95 07/26/17 16:00 98.1 80 18 123/57 (79) 97 07/26/17 12:00 97.1 85 18 113/66 (82) 96 I/O 07/26/17 07/26/17 07/26/17 07/27/17 07/27/17 07/27/17 07:00 15:00 23:00 07:00 15:00 23:00 Intake Total 720 ml 100 ml 1300 ml 240 ml Output Total 1400 ml 300 ml 650 ml Balance -680 ml 100 ml 1000 ml -410 ml Intake Oral 720 ml 1200 ml 240 ml IV Total 100 ml 100 ml Output Urine Total 1200 ml 650 ml Stool Total 200 ml 300 ml # Voids 4 # Bowel Movements 0 Result Diagram: 07/27/17 0445 07/27/17 0445 Imaging Last Impressions Chest X-Ray 07/18/17 0000 Signed Impressions: Service Date/Time: Tuesday, July 18, 2017 16:30 - CONCLUSION: Improvement Minimal consolidation remain right base. Alfredo Lora MD FACR Cholangiopancreatography MRI 07/15/17 0000 Signed Impressions: Service Date/Time: Saturday, July 15, 2017 15:02 - CONCLUSION: 1. Ascites with small bilateral pleural effusions. 2. Small contracted gallbladder without definite stones 3. No definite common duct stone. 4. Pancreas obscured by motion. Alfredo Lora MD FACR Liver Ultrasound 07/14/17 0000 Signed Impressions: Service Date/Time: July 16:45 - CONCLUSION: 1. Small volume ascites. 2. Bilateral pleural effusions. 3. Sludge within the gallbladder with a top normal thickness of the gallbladder wall. No sonographic evidence to suggest acute cholecystitis. Pierce Ospina Jr., MD Abdomen X-Ray 07/06/17 0000 Signed Impressions: Service Date/Time: Thursday, July 06, 2017 13:44 - CONCLUSION: 1. Gaseous distention of multiple bowel loops. This has slightly improved. 2. Left-sided nephroureteral stent in good position. Sarwat Suarez MD Upper Extremity Ultrasound 06/23/17 0000 Signed Impressions: Service Date/Time: June 20:03 - CONCLUSION: Noncompressibility right cephalic vein and left basilic vein consistent with venous thrombosis Trav Hsieh MD Lower Extremity Ultrasound 06/23/17 0000 Signed Impressions: Service Date/Time: June 20:16 - CONCLUSION: Normal examination. No evidence DVT Trav Hsieh MD Chest CT 06/20/17 0000 Signed Impressions: Service Date/Time: Tuesday, June 20, 2017 07:42 - CONCLUSION: 1. Bilateral effusions and consolidative changes in both lung bases. Bao Lora MD Abdomen/Pelvis CT 06/20/17 0000 Signed Impressions: Service Date/Time: Tuesday, June 20, 2017 07:39 - CONCLUSION: 1. Dilated stomach and multiple dilated loops of small bowel, likely ileus. 2. No definite gastric volvulus. 3. Fat containing right inguinal hernia which also contains small portion of the urinary bladder and minimal fluid. 4. Left-sided nephroureteral stent in good position. 5. Bibasilar consolidation and small pleural effusions. Sarwat Suarez MD Objective Remarks GENERAL: NAD, A&Ox3 HEAD: Normocephalic. NECK: Supple, trachea midline. No lymphadenopathy. EYES: No scleral icterus. No injection or drainage. CARDIOVASCULAR: Regular rate and rhythm without murmurs, gallops, or rubs. RESPIRATORY: Breath sounds equal bilaterally. No accessory muscle use. GASTROINTESTINAL: Abdomen soft, non-tender, nondistended. MUSCULOSKELETAL: No cyanosis, or edema. Sacral ulcer has wound VAC in place. SKIN: Warm and dry. NEURO: No focal neurological deficitis. PSYCH: Slightly flattened affect. Medications and IVs Current Medications Medications (Trade) Dose Ordered Sig/[place] Route Start Time Stop Time Status Last Admin (Zofran Inj) 4 mg Q4H PRN IV PUSH 06/17/17 22:00 06/18/17 09:45 Miscellaneous Information Patient in critical care unit? Ass... Q361D .XX 06/18/17 05:45 06/18/17 05:45 (Albuterol Neb) 2.5 mg Q2HR NEB PRN NEB 06/29/17 14:30 07/05/17 08:44 (K-Lyte Cl Eff) 25 meq DAILY PO 07/05/17 12:00 07/27/17 09:00 (Cardizem) 60 mg Q6HR PO 07/05/17 12:45 07/27/17 06:17 (Santyl Oint) 1 applic DAILY TOPICAL 07/07/17 09:00 07/23/17 09:00 (Symbicort 160-4.5 Inh) 1 puff Q12HR INH 07/07/17 09:00 07/27/17 09:00 (Lovenox Inj) 40 mg Q24H SQ 07/09/17 09:00 07/27/17 08:49 (Lomotil Tab) 1 tab Q6H PRN PO 07/10/17 11:00 (Protonix) 40 mg DAILY PO 07/11/17 09:00 07/27/17 08:45 (Lanoxin) 0.125 mg DAILY PO 07/11/17 09:00 07/27/17 08:45 (NovoLOG SUPPLEMENTAL SCALE) 1 ACHS SQ 07/11/17 17:00 07/25/17 20:53 (D50w (Vial) Inj) 50 ml UNSCH PRN IV PUSH 07/11/17 15:00 (Glucagon Inj) 1 mg UNSCH PRN OTHER 07/11/17 15:00 (VANCOMYCIN for oral use only) 250 mg QID PO 07/13/17 18:00 08/04/17 18:00 07/27/17 08:50 Patient Own Medication PT OWN MED: VIIB... HS PO 07/15/17 21:00 07/26/17 21:22 (Dilaudid Pf Inj) 0.5 mg Q4H PRN IV PUSH 07/18/17 12:15 07/27/17 09:58 Cefepime HCl 2000 mg/Sodium Chloride 100 ml @ 200 mls/hr Q12H IV 07/18/17 20:00 07/28/17 20:00 07/27/17 08:49 (Percocet 10-325 Mg) 1 tab Q6H PRN PO 07/19/17 14:15 07/27/17 08:46 (Percocet 5-325 Mg) 1 tab Q6H PRN PO 07/19/17 14:15 07/23/17 00:23 (Dakin'S 0.125% Soln) 500 ml MoWeFr TOPICAL 07/20/17 13:00 07/25/17 13:00 (Flomax) 0.4 mg HS PO 07/23/17 21:00 07/26/17 21:22 (Deltasone) 10 mg DAILY PO 07/27/17 09:00 07/27/17 08:45 Date of Insertion: Jun 18, 2017 Side: Left Location: Internal A/P Problem List: (1) Tachycardia ICD Code: R00.0 - Tachycardia, unspecified (2) Hypertension ICD Code: I10 - Essential (primary) hypertension (3) Leukocytosis ICD Code: D72.829 - Elevated white blood cell count, unspecified (4) UTI (urinary tract infection) ICD Code: N39.0 - Urinary tract infection, site not specified (5) Acute kidney injury ICD Code: N17.9 - Acute kidney failure, unspecified (6) Cancer of rectum ICD Code: C20 - Malignant neoplasm of rectum (7) 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 Code: Z93.2 - Ileostomy status (8) Sepsis ICD Code: A41.9 - Sepsis, unspecified organism Assessment and Plan 67 year-old male admitted with respiratory failure secondary to pneumonia and COPD exacerbation. Prolonged time on vent, patient now has decubitus ulcer. Status post wound VAC placement. Acute respiratory failure Pseudomonal pneumonia Pseudomonas bacteremia COPD with exacerbation Improved Patient extubated 07/06/17, on room air. - Continue bronchodilators, inhaled steroids and mucolytic's - Continue incentive spirometry - Off systemic steroids - continue PT/ OT - continue IV cefepime per infectious disease A. fib with RVR Improved - Follow on telemetry - Continue by mouth Cardizem - Continue by mouth digoxin - Continue Lovenox - Continue diuresis Status post left colectomy Colorectal cancer Diverting ileostomy Wedge resection of liver metastases Status post resection of the left ureter Transaminitis Ileus - continue Alvimopam 12mg BID for Ileus - Continue Hna catheter - Continue diuretics - follow up with oncology and surgery - PT/ OT - ADAT C. difficile enteritis - Continue by mouth vancomycin per ID - Follow for clinical improvement Sacral ulcer Colon rectal surgery following Plastic surgery consulted. Cleared for discharge. - Continue wound care - pain control increased to q4hrs. Left upper extremity thrombosis Asymptomatic. - continue prophylactic Lovenox. Follow up with hematology. DVT prophylaxis Lovenox Discharge Planning Will need placement with wound vac. Pt wants rehab, not SNF Norman Liz DO Jul 27, 2017 11:44
[2017-07-27] MEDS ORDERED: oxyCODONE/ACETAMINOPHEN 5 MG/325 MG TAB PO PRN (11:45)
[2017-07-27 12:00] VITALS: BP 121/59; PULSE 89; RESP 20; TEMP 97.3; O2SAT 97
[2017-07-27] MEDS: SODIUM HYPOCHLORITE 0.125% 500 ML BTL TOPICAL SCH (13:00)
--- NOTE | 2017-07-27 14:48 | PD.WCN.NOT ---
Neg Pressure Wound Therapy Wound Location Wound Location: Sacrum Wound Description Length: 6.2cm Width: 3.2cm Depth: 2cm Undermining: from 8 to 3 o'clock deepest at 12 o'clock measuring 2.1cm Wound bed appearance: Full thickness wound to sacrum with ~30% adherent yellow slough, ~20% bone, ~20 % facia, and ~30% muscle tissue. Wound has minimal sero-sanguinous drainage that is active and is without odor Periwound appearance: Other (Full thickness skin loss from 9 to 3 o'clock ) Settings Suction: 125 mmHg, Continuous Intensity: Low Other Information: Bridged, Windowpaned, Mushroomed Foam type: Black Number of pieces: 1 Additonal Information Patient seen for assistance with VAC dressing change. Removed Dakin's soaked gauze from wound bed after Rn Love [place] soaked sacral wound for 10 minutes. Skin prep was applied to periwound before window paning wound with VAC drape and bridging VAC drape to to L anterior thigh.Xeroform was applied over full thickness skin loss from 9 to 4 o'clock to protect from VAC drape .Black VAC granufoam was then cut in single piece to fit wound bed. Bridged one long strip of granufoam from wound bed to L anterior thigh over VAC drape. Stoma paste was applied to gluteal cleft to seal VAC dressing. Applied Sensi trac pad with attached mushroom cap of black granufoam over bridged granufoam.Covered all exposed VAC granufoam with VAC drape. Wound Vac suctioning at 125 mm/hg continuous low suction with low leak rate. Patient is comfortable positioned to R side. Lowered bed to a safe height before leaving room. Next VAC dressing change is due on Tuesday07/29/2017. Yasmine [facility]agon [facility] Jul 27, 2017 14:48
[2017-07-27 16:00] VITALS: BP 125/64; PULSE 99; RESP 20; TEMP 98.5; O2SAT 98
[2017-07-27 20:05] VITALS: PULSE 99
[2017-07-27 20:39] VITALS: BP 121/65; PULSE 103; RESP 16; TEMP 98.6; O2SAT 97
[2017-07-27] MEDS: VIIBRYD 40 MG PO SCH (21:11)
[2017-07-27] MEDS: TAMSULOSIN HCL 0.4 MG CAP PO SCH (21:11)
[2017-07-28 00:03] VITALS: BP 120/62; PULSE 106; RESP 16; TEMP 98.2; O2SAT 95
[2017-07-28] MEDS: DILTIAZEM HCL 60 MG TAB PO SCH ×4 (00:52→17:12)
[2017-07-28] MEDS: oxyCODONE/ACETAMINOPHEN 10 MG/325 MG TAB PO PRN ×3 (00:52→20:28)
[2017-07-28 04:20] VITALS: BP 121/64; PULSE 102; RESP 16; TEMP 98.3; O2SAT 96
[2017-07-28] MEDS: INSULIN ASPART SUPPLEMENTAL SCALE SQ SCH ×4 (07:56→20:30)
[2017-07-28] MEDS: ENOXAPARIN SODIUM 40 MG/0.4 ML SYRINGE SQ SCH (07:58)
[2017-07-28] MEDS: predniSONE 10 MG TAB PO SCH (07:58)
[2017-07-28] MEDS: VANCOMYCIN 500 MG VIAL (FOR ORAL USE ONLY) PO SCH ×4 (07:58→20:29)
[2017-07-28] MEDS: DIGOXIN 0.125 MG TAB PO SCH (07:58)
[2017-07-28] MEDS: POTASSIUM CHLORIDE 25 MEQ EFFERVESCENT TAB PO SCH (07:58)
[2017-07-28] MEDS: COLLAGENASE OINT 30 GM TUBE TOPICAL SCH (07:59)
[2017-07-28] MEDS: PANTOPRAZOLE SOD 40 MG DELAYED RELEASE TAB PO SCH (07:59)
[2017-07-28 08:00] VITALS: BP 121/70; PULSE 100; PULSE 103; RESP 20; TEMP 98.3; O2SAT 97
[2017-07-28] MEDS: BUDESONIDE-FORMOTEROL 160/4.5 MCG INHALER INH SCH ×2 (08:00→20:35)
[2017-07-28] MEDS: CEFEPIME INJ 2,000 MG in SODIUM CHLORIDE 0.9% INJ 100 ML IV SCH ×2 (08:13→20:30)
--- NOTE | 2017-07-28 09:17 | PD.ONC.PN ---
Subjective Subjective Remarks Patient seen and examined, vital signs, labs, medications and ada accommodation consultant notes reviewed. Patient reports pain in his sacral area, he underwent debridement yesterday with replacement of the wound VAC over his sacrum. He tells me that remains poor and that he has largely remained in bed. Objective Data Date Time Temp Pulse Resp B/P (MAP) Pulse Ox O2 Delivery O2 Flow Rate FiO2 07/28/17 08:00 98.3 103 20 121/70 (87) 97 07/28/17 04:20 98.3 102 16 121/64 (83) 96 07/28/17 00:03 98.2 106 16 120/62 (81) 95 07/27/17 21:39 Room Air 07/27/17 20:39 98.6 103 16 121/65 (83) 97 07/27/17 20:05 99 07/27/17 16:00 98.5 99 20 125/64 (84) 98 07/27/17 12:00 97.3 89 20 121/59 (79) 97 07/28/17 07/28/17 07/28/17 07:00 15:00 23:00 Intake Total 120 ml Output Total 600 ml Balance -480 ml Result Diagram: 07/27/17 0445 07/27/17 0445 Administered Medications Medications (Trade) Dose Ordered Sig/[place] Route PRN Reason Start Time Stop Time Status Last Admin Dose Admin Ondansetron HCl (Zofran Inj) 4 mg Q4H PRN IV PUSH NAUSEA/VOMITING 06/17/17 22:00 06/18/17 09:45 Miscellaneous Information Patient in critical care unit? Ass... Q361D .XX 06/18/17 05:45 06/18/17 05:45 Albuterol Sulfate (Albuterol Neb) 2.5 mg Q2HR NEB PRN NEB DYSPNEA 06/29/17 14:30 07/05/17 08:44 Potassium Bicarb/ Potassium Chloride (K-Lyte Cl Eff) 25 meq DAILY PO 07/05/17 12:00 07/28/17 07:58 Diltiazem HCl (Cardizem) 60 mg Q6HR PO 07/05/17 12:45 07/28/17 05:47 Collagenase (Santyl Oint) 1 applic DAILY TOPICAL 07/07/17 09:00 07/28/17 07:59 Budesonide/ Formoterol Fumarate (Symbicort 160-4.5 Inh) 1 puff Q12HR INH 07/07/17 09:00 07/28/17 08:00 Enoxaparin Sodium (Lovenox Inj) 40 mg Q24H SQ 07/09/17 09:00 07/28/17 07:58 Pantoprazole Sodium (Protonix) 40 mg DAILY PO 07/11/17 09:00 07/28/17 07:59 Digoxin (Lanoxin) 0.125 mg DAILY PO 07/11/17 09:00 07/28/17 07:58 Insulin Aspart (NovoLOG SUPPLEMENTAL SCALE) 1 ACHS SQ 07/11/17 17:00 07/25/17 20:53 Vancomycin HCl (VANCOMYCIN for oral use only) 250 mg QID PO 07/13/17 18:00 08/04/17 18:00 07/28/17 07:58 Patient Own Medication PT OWN MED: VIIB... HS PO 07/15/17 21:00 07/27/17 21:11 Hydromorphone HCl (Dilaudid Pf Inj) 0.5 mg Q4H PRN IV PUSH Breakthrough Pain 07/18/17 12:15 07/27/17 09:58 Cefepime HCl 2000 mg/Sodium Chloride 100 ml @ 200 mls/hr Q12H IV 07/18/17 20:00 07/28/17 20:00 07/28/17 08:13 Sodium Hypochlorite (Dakin'S 0.125% Soln) 500 ml MoWeFr TOPICAL 07/20/17 13:00 07/27/17 13:00 Tamsulosin HCl (Flomax) 0.4 mg HS PO 07/23/17 21:00 07/27/17 21:11 Prednisone (Deltasone) 10 mg DAILY PO 07/27/17 09:00 07/28/17 07:58 Oxycodone/ Acetaminophen (Percocet 10-325 Mg) 1 tab Q4H PRN PO Pain 7 to 10 07/27/17 11:45 07/28/17 07:59 Objective Remarks GENERAL APPEARANCE: Mr. Armendariz is a middle-aged/elderly male. He is laying in bed. He is awake and alert responsive. He is able to speak in full sentences. He appears chronically ill and frail. Half eaten breakfast tray sitting in front of him. He is attempting to feed himself. HEENT: Head atraumatic, normocephalic. Conjunctivae are pale. Sclerae are anicteric, EOMI, PERRLA, oral exam no pharyngeal erythema. NECK: No palpable cervical or supraclavicular lymphadenopathy. RESPIRATORY: Good air movement bilaterally. Coarse conducted breath sounds. He has prolonged expiratory phase. He is initiating multiple spontaneous breaths. CARDIOVASCULAR: Irregular, tachycardiac, S1 S2, no obvious murmurs, rubs or gallops. ABDOMEN: The belly is soft. An ileostomy bag is noted containing liquid stools. A well-healing laparotomy incision in the midline is appreciated. The abdomen does not appear to be distended, there appears to be no significant increase in tympany on percussion. There are no signs of acute abdomen. LOWER EXTREMITIES: No pretibial edema, no calf tenderness. Upper extremities: Right upper extremity with edema. MUSCULOSKELETAL: Generalized muscle atrophy and generalized weakness without focal deficits. 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 Assessment/Plan Assessment Mr. Armendariz is a 67-year-old male who was recently diagnosed with metastatic adenocarcinoma of the rectosigmoid colon and had resection of a metastatic deposit to the liver. He is status post primary surgical resection (3-4 weeks ago) as well as wedge resection of a metastatic deposit to the liver and now has C difficile colitis. He has thrombocytopenia with thrombosis to the cephalic and brachial veins. Admitted to colorectal surgery service initially for weakness/abdominal pain. Then 06/18 became tachy and hypotensive. had elevated lactic acid and bandemia. sepsis suspected. Window Maker was consulted. on 06/20 was intubated d /t hemodynamic instability. platelets also started falling on 06/20. Plan 1. Thrombocytopenia: likely d/t sepsis/DIC there may have been an element of ITP as well given the improvement while he was on corticosteroids. Platelet counts over 100,000, prednisone tapered to 10 mg by mouth daily. No overt bleeding. 2. Metastatic colon cancer: At this point he is so frail and debilitated that it is hard to see him being eligible for palliative systemic therapy. I did talk to the patient about this today, I talked about possible hospice level of care given his diagnosis of metastatic colon carcinoma and overall debility, malnutrition, sacral decubitus ulcer and prolonged hospitalization. He tells me he does not want hospice, he thinks much of his medical issues are related to his hospitalization and that he was not "sick before he came in here ". 3. Left upper extremity thrombosis involving the cephalic and basilic veins on the L side, noted, asymptomatic, will repeat an US doppler if his extremity is more swollen or symptomatic. He is on prophylactic dose anticoagulation with Lovenox. Disposition: Continue supportive care, emphasis on physical therapy, nutrition, wound care. Faraz Ryan MD Jul 28, 2017 09:17
--- NOTE | 2017-07-28 10:24 | HHI.PR ---
Subjective Remarks C/R Surg POD afebrile, VSS UO adeq hussain PO feeds stoma funct, liq stool Objective - Vital Signs Date Time Temp Pulse Resp B/P (MAP) Pulse Ox O2 Delivery O2 Flow Rate FiO2 07/28/17 08:00 Room Air 07/28/17 08:00 100 07/28/17 08:00 98.3 20 121/70 (87) 97 07/27/17 08:00 21 Result Diagram: 07/27/17 0445 07/27/175 Objective Remarks PE alert Abd - soft, wound dry, stoma funct decubitus stable A/P Assessment and Plan Imp: cont PO diet PT/OOB aggressive therapy Delfino Jerome MD Jul 28, 2017 10:24
[2017-07-28 12:00] VITALS: BP 117/67; PULSE 95; RESP 20; TEMP 98.3; O2SAT 97
--- NOTE | 2017-07-28 14:15 | HHI.PR ---
Subjective Remarks The patient and his were very upset after speaking with oncology this morning. They did not want to consider hospice options. They requested to no longer speak with the oncologist. The patient says the pain control is better but can be improved upon. They're thinking about possibly going to a rehabilitation center soon. Discussed with nursing. Objective Vitals Vital Signs Date Time Temp Pulse Resp B/P (MAP) Pulse Ox O2 Delivery O2 Flow Rate FiO2 07/28/17 12:00 98.3 95 20 117/67 (84) 97 07/28/17 08:00 Room Air 07/28/17 08:00 100 07/28/17 08:00 98.3 103 20 121/70 (87) 97 07/28/17 04:20 98.3 102 16 121/64 (83) 96 07/28/17 00:03 98.2 106 16 120/62 (81) 95 07/27/17 21:39 Room Air 07/27/17 20:39 98.6 103 16 121/65 (83) 97 07/27/17 20:05 99 07/27/17 16:00 98.5 99 20 125/64 (84) 98 I/O 07/27/17 07/27/17 07/27/17 07/28/17 07/28/17 07/28/17 07:00 15:00 23:00 07:00 15:00 23:00 Intake Total 240 ml 360 ml 120 ml Output Total 650 ml 800 ml 600 ml Balance -410 ml -440 ml -480 ml Intake Oral 240 ml 360 ml 120 ml Output Urine Total 650 ml 800 ml 600 ml # Bowel Movements 0 0 0 Result Diagram: 07/27/17 0445 07/27/17 0445 Imaging Last Impressions Chest X-Ray 07/18/17 0000 Signed Impressions: Service Date/Time: Tuesday, July 18, 2017 16:30 - CONCLUSION: Improvement Minimal consolidation remain right base. Alfredo Lora MD FACR Cholangiopancreatography MRI 07/15/17 0000 Signed Impressions: Service Date/Time: Saturday, July 15, 2017 15:02 - CONCLUSION: 1. Ascites with small bilateral pleural effusions. 2. Small contracted gallbladder without definite stones 3. No definite common duct stone. 4. Pancreas obscured by motion. Alfredo Lora MD FACR Liver Ultrasound 07/14/17 Signed Impressions: Service Date/Time: July 16:45 - CONCLUSION: 1. Small volume ascites. 2. Bilateral pleural effusions. 3. Sludge within the gallbladder with a top normal thickness of the gallbladder wall. No sonographic evidence to suggest acute cholecystitis. Pierce Ospina Jr., MD Abdomen X-Ray 07/06/17 Signed Impressions: Service Date/Time: Thursday, July 06, 2017 13:44 - CONCLUSION: 1. Gaseous distention of multiple bowel loops. This has slightly improved. 2. Left-sided nephroureteral stent in good position. Sarwat Suarez MD Upper Extremity Ultrasound 06/23/17 Signed Impressions: Service Date/Time: June 20:03 - CONCLUSION: Noncompressibility right cephalic vein and left basilic vein consistent with venous thrombosis Trav Hsieh MD Lower Extremity Ultrasound 06/23/17 Signed Impressions: Service Date/Time: June 20:16 - CONCLUSION: Normal examination. No evidence DVT Trav Hsieh MD Chest CT 06/20/17 Signed Impressions: Service Date/Time: Tuesday, June 20, 2017 07:42 - CONCLUSION: 1. Bilateral effusions and consolidative changes in both lung bases. Bao Lora MD Abdomen/Pelvis CT 06/20/17 Signed Impressions: Service Date/Time: Tuesday, June 20, 2017 07:39 - CONCLUSION: 1. Dilated stomach and multiple dilated loops of small bowel, likely ileus. 2. No definite gastric volvulus. 3. Fat containing right inguinal hernia which also contains small portion of the urinary bladder and minimal fluid. 4. Left-sided nephroureteral stent in good position. 5. Bibasilar consolidation and small pleural effusions. Sarwat Suarez MD Objective Remarks GENERAL: NAD, A&Ox3 HEAD: Normocephalic. NECK: Supple, trachea midline. No lymphadenopathy. EYES: No scleral icterus. No injection or drainage. CARDIOVASCULAR: Regular rate and rhythm without murmurs, gallops, or rubs. RESPIRATORY: Breath sounds equal bilaterally. No accessory muscle use. GASTROINTESTINAL: Abdomen soft, non-tender, nondistended. MUSCULOSKELETAL: No cyanosis, or edema. Sacral ulcer has wound VAC in place. SKIN: Warm and dry. NEURO: No focal neurological deficitis. PSYCH: Flattened affect. Medications and IVs Current Medications Medications (Trade) Dose Ordered Sig/[place] Route Start Time Stop Time Status Last Admin (Zofran Inj) 4 mg Q4H PRN IV PUSH 06/17/17 22:00 06/18/17 09:45 Miscellaneous Information Patient in critical care unit? Ass... Q361D .XX 06/18/17 05:45 06/18/17 05:45 (Albuterol Neb) 2.5 mg Q2HR NEB PRN NEB 06/29/17 14:30 07/05/17 08:44 (K-Lyte Cl Eff) 25 meq DAILY PO 07/05/17 12:00 07/28/17 07:58 (Cardizem) 60 mg Q6HR PO 07/05/17 12:45 07/28/17 12:24 (Santyl Oint) 1 applic DAILY TOPICAL 07/07/17 09:00 07/28/17 07:59 (Symbicort 160-4.5 Inh) 1 puff Q12HR INH 07/07/17 09:00 07/28/17 08:00 (Lovenox Inj) 40 mg Q24H SQ 07/09/17 09:00 07/28/17 07:58 (Lomotil Tab) 1 tab Q6H PRN PO 07/10/17 11:00 (Protonix) 40 mg DAILY PO 07/11/17 09:00 07/28/17 07:59 (Lanoxin) 0.125 mg DAILY PO 07/11/17 09:00 07/28/17 07:58 (NovoLOG SUPPLEMENTAL SCALE) 1 ACHS SQ 07/11/17 17:00 07/25/17 20:53 (D50w (Vial) Inj) 50 ml UNSCH PRN IV PUSH 07/11/17 15:00 (Glucagon Inj) 1 mg UNSCH PRN OTHER 07/11/17 15:00 (VANCOMYCIN for oral use only) 250 mg QID PO 07/13/17 18:00 08/04/17 18:00 07/28/17 12:24 Patient Own Medication PT OWN MED: VIIB... HS PO 07/15/17 21:00 07/27/17 21:11 (Dilaudid Pf Inj) 0.5 mg Q4H PRN IV PUSH 07/18/17 12:15 07/27/17 09:58 Cefepime HCl 2000 mg/Sodium Chloride 100 ml @ 200 mls/hr Q12H IV 07/18/17 20:00 07/28/17 20:00 07/28/17 08:13 (Dakin'S 0.125% Soln) 500 ml MoWeFr TOPICAL 07/20/17 13:00 07/27/17 13:00 (Flomax) 0.4 mg HS PO 07/23/17 21:00 07/27/17 21:11 (Deltasone) 10 mg DAILY PO 07/27/17 09:00 07/28/17 07:58 (Percocet 5-325 Mg) 1 tab Q4H PRN PO 07/27/17 11:45 (Percocet 10-325 Mg) 1 tab Q4H PRN PO 07/27/17 11:45 07/28/17 07:59 Date of Insertion: Jun 18, 2017 Side: Left Location: Internal A/P Problem List: (1) Tachycardia ICD Code: R00.0 - Tachycardia, unspecified (2) Hypertension ICD Code: I10 - Essential (primary) hypertension (3) Leukocytosis ICD Code: D72.829 - Elevated white blood cell count, unspecified (4) UTI (urinary tract infection) ICD Code: N39.0 - Urinary tract infection, site not specified (5) Acute kidney injury ICD Code: N17.9 - Acute kidney failure, unspecified (6) Cancer of rectum ICD Code: C20 - Malignant neoplasm of rectum (7) 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 Code: Z93.2 - Ileostomy status (8) Sepsis ICD Code: A41.9 - Sepsis, unspecified organism Assessment and Plan 67 year-old male admitted with respiratory failure secondary to pneumonia and COPD exacerbation. Prolonged time on vent, patient now has decubitus ulcer. Status post wound VAC placement. Acute respiratory failure Pseudomonal pneumonia Pseudomonas bacteremia COPD with exacerbation Patient extubated 07/06/17, on room air. - Continue bronchodilators, inhaled steroids and mucolytic's - Continue incentive spirometry - Off systemic steroids - continue PT/ OT - continue IV vancomycin and cefepime per infectious disease A. fib with RVR Improved - Follow on telemetry - Continue by mouth Cardizem and digoxin. - Continue Lovenox. - Continue diuresis. Status post left colectomy Colorectal cancer Diverting ileostomy Wedge resection of liver metastases Status post resection of the left ureter Transaminitis Ileus - continue Alvimopam 12mg BID for Ileus - Continue Han catheter - Continue diuretics - follow up with surgery - PT/ OT - ADAT C. difficile enteritis - Continue by mouth vancomycin per ID - Follow for clinical improvement Sacral ulcer Colon rectal surgery following Plastic surgery consulted. Cleared for discharge. - Continue wound care - pain control increased 07/28. Left upper extremity thrombosis Asymptomatic. - continue prophylactic Lovenox. Follow up with hematology. DVT prophylaxis Lovenox Discharge Planning Will need placement with wound vac. Norman Liz DO Jul 28, 2017 14:15
[2017-07-28 16:00] VITALS: BP 124/71; PULSE 102; RESP 20; TEMP 98.1; O2SAT 96
[2017-07-28] MEDS: ONDANSETRON HCL 4 MG/2 ML VIAL IV PUSH PRN ×2 (16:25→21:45)
[2017-07-28] MEDS: HYDROmorphone HCL PF 0.5 MG/0.5 ML SYRINGE IV PUSH PRN (17:12)
[2017-07-28 20:00] VITALS: BP 125/68; PULSE 98; PULSE 99; RESP 20; TEMP 98.6; O2SAT 97
[2017-07-28] MEDS: TAMSULOSIN HCL 0.4 MG CAP PO SCH (20:28)
[2017-07-28] MEDS: VIIBRYD 40 MG PO SCH (20:35)
[2017-07-29] VITALS (7 sets, daily range): BP systolic 96–138; BP diastolic 55–70; PULSE 82–101; RESP 17–20; TEMP 98–98.6; O2SAT 94–97
[2017-07-29] MEDS: DILTIAZEM HCL 60 MG TAB PO SCH ×4 (00:43→17:50)
[2017-07-29] MEDS: INSULIN ASPART SUPPLEMENTAL SCALE SQ SCH ×5 (08:00→20:55)
[2017-07-29 08:02] LABS: HEMATOCRIT 29.8 % (39.0-51.0); MEAN CORPUSCULAR HEMOGLOBIN 29.9 PG (27.0-34.0); MEAN CORPUSCULAR HGB CONC 31.8 % (32.0-36.0); PLATELET COUNT 211 TH/MM3 (150-450); RED BLOOD COUNT 3.16 MIL/MM3 (4.50-5.90); RED CELL DISTRIBUTION WIDTH 21.5 % (11.6-17.2); REVIEW FLAG FINAL; WHITE BLOOD COUNT 12.8 TH/MM3 (4.0-11.0)
[2017-07-29] MEDS: BUDESONIDE-FORMOTEROL 160/4.5 MCG INHALER INH SCH ×2 (08:48→20:56)
[2017-07-29] MEDS: ENOXAPARIN SODIUM 40 MG/0.4 ML SYRINGE SQ SCH (08:49)
[2017-07-29] MEDS: VANCOMYCIN 500 MG VIAL (FOR ORAL USE ONLY) PO SCH ×4 (08:49→20:55)
[2017-07-29] MEDS: predniSONE 10 MG TAB PO SCH (08:49)
[2017-07-29] MEDS: PANTOPRAZOLE SOD 40 MG DELAYED RELEASE TAB PO SCH (08:49)
[2017-07-29] MEDS: oxyCODONE/ACETAMINOPHEN 10 MG/325 MG TAB PO PRN ×4 (08:49→22:26)
[2017-07-29] MEDS: DIGOXIN 0.125 MG TAB PO SCH (08:49)
[2017-07-29] MEDS: COLLAGENASE OINT 30 GM TUBE TOPICAL SCH (08:50)
[2017-07-29] MEDS: POTASSIUM CHLORIDE 25 MEQ EFFERVESCENT TAB PO SCH (08:50)
[2017-07-29] MEDS: SODIUM HYPOCHLORITE 0.125% 500 ML BTL TOPICAL SCH (12:09)
--- NOTE | 2017-07-29 12:21 | HHI.PR ---
Subjective Remarks The patient had nausea and vomiting last night. He was tolerating a diet today. He said that the pain in his wound hurts him too much work with physical therapy effectively. Family at the bedside. Discussed with nursing. Objective Vitals Vital Signs Date Time Temp Pulse Resp B/P (MAP) Pulse Ox O2 Delivery O2 Flow Rate FiO2 07/29/17 08:05 98.0 99 17 111/63 (79) 97 07/29/17 08:00 96 07/29/17 08:00 Room Air 07/29/17 04:00 98.2 95 20 117/66 (83) 96 07/29/17 00:00 98.1 101 20 138/70 (92) 97 07/28/17 20:00 98 07/28/17 20:00 96 Room Air 21 07/28/17 20:00 98.6 99 20 125/68 (87) 97 07/28/17 16:00 98.1 102 20 124/71 (88) 96 I/O 07/28/17 07/28/17 07/28/17 07/29/17 07/29/17 07/29/17 07:00 15:00 23:00 07:00 15:00 23:00 Intake Total 120 ml 580 ml 480 ml Output Total 600 ml 500 ml 1050 ml Balance -480 ml 80 ml -570 ml Intake Oral 120 ml 480 ml 480 ml IV Total 100 ml Output Urine Total 600 ml 500 ml 600 ml Stool Total 450 ml # Bowel Movements 0 1 Result Diagram: 07/29/17 0704 07/27/17 0445 Imaging Last Impressions Chest X-Ray 07/18/17 0000 Signed Impressions: Service Date/Time: Tuesday, July 18, 2017 16:30 - CONCLUSION: Improvement Minimal consolidation remain right base. Alfredo Lora MD FACR Cholangiopancreatography MRI 07/15/17 0000 Signed Impressions: Service Date/Time: Saturday, July 15, 2017 15:02 - CONCLUSION: 1. Ascites with small bilateral pleural effusions. 2. Small contracted gallbladder without definite stones 3. No definite common duct stone. 4. Pancreas obscured by motion. Alfredo Lora MD FACR Liver Ultrasound 07/14/17 0000 Signed Impressions: Service Date/Time: July 16:45 - CONCLUSION: 1. Small volume ascites. 2. Bilateral pleural effusions. 3. Sludge within the gallbladder with a top normal thickness of the gallbladder wall. No sonographic evidence to suggest acute cholecystitis. Pierce Ospina Jr., MD Abdomen X-Ray 07/06/17 Signed Impressions: Service Date/Time: Thursday, July 06, 2017 13:44 - CONCLUSION: 1. Gaseous distention of multiple bowel loops. This has slightly improved. 2. Left-sided nephroureteral stent in good position. Sarwat Suarez MD Upper Extremity Ultrasound 06/23/17 Signed Impressions: Service Date/Time: June 20:03 - CONCLUSION: Noncompressibility right cephalic vein and left basilic vein consistent with venous thrombosis Trav Hsieh MD Lower Extremity Ultrasound 06/23/17 Signed Impressions: Service Date/Time: June 20:16 - CONCLUSION: Normal examination. No evidence DVT Trav Hsieh MD Chest CT 06/20/17 Signed Impressions: Service Date/Time: Tuesday, June 20, 2017 07:42 - CONCLUSION: 1. Bilateral effusions and consolidative changes in both lung bases. Bao Lora MD Abdomen/Pelvis CT 06/20/17 Signed Impressions: Service Date/Time: Tuesday, June 20, 2017 07:39 - CONCLUSION: 1. Dilated stomach and multiple dilated loops of small bowel, likely ileus. 2. No definite gastric volvulus. 3. Fat containing right inguinal hernia which also contains small portion of the urinary bladder and minimal fluid. 4. Left-sided nephroureteral stent in good position. 5. Bibasilar consolidation and small pleural effusions. Sarwat Suarez MD Objective Remarks GENERAL: NAD, A&Ox3 HEAD: Normocephalic. NECK: Supple, trachea midline. No lymphadenopathy. EYES: No scleral icterus. No injection or drainage. CARDIOVASCULAR: Regular rate and rhythm without murmurs, gallops, or rubs. RESPIRATORY: Breath sounds equal bilaterally. No accessory muscle use. GASTROINTESTINAL: Abdomen soft, non-tender, nondistended. MUSCULOSKELETAL: No cyanosis, or edema. Sacral ulcer has wound VAC in place. SKIN: Warm and dry. NEURO: No focal neurological deficitis. PSYCH: Flattened affect. Medications and IVs Current Medications Medications (Trade) Dose Ordered Sig/[place] Route Start Time Stop Time Status Last Admin (Zofran Inj) 4 mg Q4H PRN IV PUSH 06/17/17 22:00 07/28/17 21:45 Miscellaneous Information Patient in critical care unit? Ass... Q361D .XX 06/18/17 05:45 06/18/17 05:45 (Albuterol Neb) 2.5 mg Q2HR NEB PRN NEB 06/29/17 14:30 07/05/17 08:44 (K-Lyte Cl Eff) 25 meq DAILY PO 07/05/17 12:00 07/29/17 08:50 (Cardizem) 60 mg Q6HR PO 07/05/17 12:45 07/29/17 05:53 (Santyl Oint) 1 applic DAILY TOPICAL 07/07/17 09:00 07/29/17 08:50 (Symbicort 160-4.5 Inh) 1 puff Q12HR INH 07/07/17 09:00 07/29/17 08:48 (Lovenox Inj) 40 mg Q24H SQ 07/09/17 09:00 07/29/17 08:49 (Lomotil Tab) 1 tab Q6H PRN PO 07/10/17 11:00 (Protonix) 40 mg DAILY PO 07/11/17 09:00 07/29/17 08:49 (Lanoxin) 0.125 mg DAILY PO 07/11/17 09:00 07/29/17 08:49 (NovoLOG SUPPLEMENTAL SCALE) 1 ACHS SQ 07/11/17 17:00 07/25/17 20:53 (D50w (Vial) Inj) 50 ml UNSCH PRN IV PUSH 07/11/17 15:00 (Glucagon Inj) 1 mg UNSCH PRN OTHER 07/11/17 15:00 (VANCOMYCIN for oral use only) 250 mg QID PO 07/13/17 18:00 08/04/17 18:00 07/29/17 08:49 Patient Own Medication PT OWN MED: VIIB... HS PO 07/15/17 21:00 07/28/17 20:35 (Dilaudid Pf Inj) 0.5 mg Q4H PRN IV PUSH 07/18/17 12:15 07/28/17 17:12 (Dakin'S 0.125% Soln) 500 ml MoWeFr TOPICAL 07/20/17 13:00 07/29/17 12:09 (Flomax) 0.4 mg HS PO 07/23/17 21:00 07/28/17 20:28 (Deltasone) 10 mg DAILY PO 07/27/17 09:00 07/29/17 08:49 (Percocet 5-325 Mg) 1 tab Q4H PRN PO 07/27/17 11:45 (Percocet 10-325 Mg) 1 tab Q4H PRN PO 07/28/17 18:15 07/29/17 08:49 Date of Insertion: Jun 18, 2017 Side: Left Location: Internal A/P Problem List: (1) Tachycardia ICD Code: R00.0 - Tachycardia, unspecified (2) Hypertension ICD Code: I10 - Essential (primary) hypertension (3) Leukocytosis ICD Code: D72.829 - Elevated white blood cell count, unspecified (4) UTI (urinary tract infection) ICD Code: N39.0 - Urinary tract infection, site not specified (5) Acute kidney injury ICD Code: N17.9 - Acute kidney failure, unspecified (6) Cancer of rectum ICD Code: C20 - Malignant neoplasm of rectum (7) 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 Code: Z93.2 - Ileostomy status (8) Sepsis ICD Code: A41.9 - Sepsis, unspecified organism Assessment and Plan 67 year-old male admitted with respiratory failure secondary to pneumonia and COPD exacerbation. Prolonged time on vent, patient now has decubitus ulcer. Status post wound VAC placement. Acute respiratory failure Pseudomonal pneumonia Pseudomonas bacteremia COPD with exacerbation Patient extubated 07/06/17, on room air. - Continue bronchodilators, inhaled steroids and mucolytic's. - Continue incentive spirometry. - on prednisone. - continue PT/ OT. - s/p IV vancomycin and cefepime per infectious disease A. fib with RVR Improved. - Follow on telemetry. - Continue by mouth Cardizem and digoxin. - Continue Lovenox. - Continue diuresis. Status post left colectomy/ Colorectal cancer/ Ileus S/p diverting ileostomy, wedge resection of liver metastases and resection of the left ureter. - continue Alvimopam 12mg BID for Ileus. - Continue Han catheter. - Continue diuretics. - follow up with surgery. - PT/ OT. - ADAT. C. difficile enteritis - Continue by mouth vancomycin per ID. Stop date 08/04. Sacral ulcer Plastic surgery consulted. Cleared for discharge. - Continue wound care. - pain control. - follow up with colorectal surgery. Left upper extremity thrombosis Asymptomatic. - continue prophylactic Lovenox. Follow up with hematology. DVT prophylaxis Lovenox Discharge Planning Will need placement with wound vac. Norman Liz DO Jul 29, 2017 12:20
--- NOTE | 2017-07-29 16:04 | HHI.PR ---
Subjective Remarks C/R Surg POD afebrile, VSS UO adeq hussain PO feeds stoma funct, liq stool ?emesis after pain meds Objective - Vital Signs Date Time Temp Pulse Resp B/P (MAP) Pulse Ox O2 Delivery O2 Flow Rate FiO2 07/29/17 12:05 98.4 82 18 96/55 (69) 95 07/29/17 08:00 Room Air 07/28/17 20:00 21 Result Diagram: 07/29/17 0704 07/27/17 0445 Objective Remarks PE alert Abd - soft, wound dry, stoma funct decubitus stable/wouind vac intact A/P Assessment and Plan Imp: cont PO diet PT/OOB aggressive therapy for decubitus Delfino Jerome MD Jul 29, 2017 16:04
[2017-07-29] MEDS: VIIBRYD 40 MG PO SCH (20:55)
[2017-07-29] MEDS: TAMSULOSIN HCL 0.4 MG CAP PO SCH (20:55)
[2017-07-30] VITALS (7 sets, daily range): BP systolic 104–116; BP diastolic 52–63; PULSE 80–90; RESP 17–18; TEMP 97.7–98.5; O2SAT 94–97
[2017-07-30] MEDS: DILTIAZEM HCL 60 MG TAB PO SCH ×5 (00:20→23:34)
[2017-07-30] MEDS: oxyCODONE/ACETAMINOPHEN 10 MG/325 MG TAB PO PRN ×3 (04:41→21:40)
--- NOTE | 2017-07-30 07:51 | HHI.PR ---
Subjective Remarks Needs nutrition. Seems to have better intake. Will start new calorie count. Pt does not want hospice. He is disease free at this time. Once he recovers planning Ileostomy closure. Objective Vital Signs Date Time Temp Pulse Resp B/P (MAP) Pulse Ox O2 Delivery O2 Flow Rate FiO2 07/30/17 04:00 98.5 86 17 104/63 (77) 94 07/30/17 00:00 98.2 81 18 109/56 (73) 94 07/29/17 21:30 Room Air 07/29/17 20:00 98.1 84 17 110/58 (75) 96 07/29/17 20:00 83 07/29/17 16:05 98.6 83 18 112/59 (76) 94 07/29/17 12:05 98.4 82 18 96/55 (69) 95 07/29/17 08:05 98.0 99 17 111/63 (79) 97 07/29/17 08:00 96 07/29/17 08:00 Room Air I/O 07/29/17 07/29/17 07/29/17 07/30/17 07/30/17 07/30/17 07:00 15:00 23:00 07:00 15:00 23:00 Intake Total 480 ml 420 ml 650 ml Output Total 1050 ml 1300 ml Balance -570 ml 420 ml -650 ml Intake Oral 480 ml 420 ml 650 ml Output Urine Total 600 ml 1300 ml Stool Total 450 ml # Voids 3 # Bowel Movements 0 Result Diagram: 07/29/17 0704 07/27/17 0445 Objective Remarks VS-S Abd: Soft. Flat. Wound healed. Stoma working. . I&Os: OK Assessment and Plan Assessment and Plan Decubitus Poor nutrition Severe deconditioning UTI resolved. D/C to Rehab when all consultants agree Repeat calorie counts Continue PO vancomycin Luca Geiger MD Jul 30, 2017 07:51
[2017-07-30] MEDS: INSULIN ASPART SUPPLEMENTAL SCALE SQ SCH ×4 (08:00→21:00)
[2017-07-30] MEDS: ENOXAPARIN SODIUM 40 MG/0.4 ML SYRINGE SQ SCH (09:00)
[2017-07-30] MEDS: COLLAGENASE OINT 30 GM TUBE TOPICAL SCH (09:00)
[2017-07-30] MEDS: PANTOPRAZOLE SOD 40 MG DELAYED RELEASE TAB PO SCH (09:00)
[2017-07-30] MEDS: predniSONE 10 MG TAB PO SCH (09:00)
[2017-07-30] MEDS: VANCOMYCIN 500 MG VIAL (FOR ORAL USE ONLY) PO SCH ×4 (09:00→21:37)
[2017-07-30] MEDS: POTASSIUM CHLORIDE 25 MEQ EFFERVESCENT TAB PO SCH (09:00)
[2017-07-30] MEDS: DIGOXIN 0.125 MG TAB PO SCH (09:00)
[2017-07-30] MEDS: BUDESONIDE-FORMOTEROL 160/4.5 MCG INHALER INH SCH ×2 (10:50→21:38)
--- NOTE | 2017-07-30 11:20 | HHI.PR ---
Subjective Remarks The patient was on his cell phone. He had no acute complaints. He said his pain was better controlled. Discussed with nursing. Objective Vitals Vital Signs Date Time Temp Pulse Resp B/P (MAP) Pulse Ox O2 Delivery O2 Flow Rate FiO2 07/30/17 10:53 18 07/30/17 10:43 94 Room Air 07/30/17 10:36 90 07/30/17 08:05 98.2 88 18 110/56 (74) 94 07/30/17 04:00 98.5 86 17 104/63 (77) 94 07/30/17 00:00 98.2 81 18 109/56 (73) 94 07/29/17 21:30 Room Air 07/29/17 20:00 98.1 84 17 110/58 (75) 96 07/29/17 20:00 83 07/29/17 16:05 98.6 83 18 112/59 (76) 94 07/29/17 12:05 98.4 82 18 96/55 (69) 95 I/O 07/29/17 07/29/17 07/29/17 07/30/17 07/30/17 07/30/17 07:00 15:00 23:00 07:00 15:00 23:00 Intake Total 480 ml 420 ml 650 ml Output Total 1050 ml 1300 ml Balance -570 ml 420 ml -650 ml Intake Oral 480 ml 420 ml 650 ml Output Urine Total 600 ml 1300 ml Stool Total 450 ml # Voids 3 # Bowel Movements 0 Result Diagram: 07/29/17 0704 07/27/17 0445 Imaging Last Impressions Chest X-Ray 07/18/17 0000 Signed Impressions: Service Date/Time: Tuesday, July 18, 2017 16:30 - CONCLUSION: Improvement Minimal consolidation remain right base. Alfredo Lora MD FACR Cholangiopancreatography MRI 07/15/17 0000 Signed Impressions: Service Date/Time: Saturday, July 15, 2017 15:02 - CONCLUSION: 1. Ascites with small bilateral pleural effusions. 2. Small contracted gallbladder without definite stones 3. No definite common duct stone. 4. Pancreas obscured by motion. Alfrdeo Lora MD FACR Liver Ultrasound 07/14/17 0000 Signed Impressions: Service Date/Time: July 16:45 - CONCLUSION: 1. Small volume ascites. 2. Bilateral pleural effusions. 3. Sludge within the gallbladder with a top normal thickness of the gallbladder wall. No sonographic evidence to suggest acute cholecystitis. Pierce Ospina Jr., MD Abdomen X-Ray 07/06/17 Signed Impressions: Service Date/Time: Thursday, July 06, 2017 13:44 - CONCLUSION: 1. Gaseous distention of multiple bowel loops. This has slightly improved. 2. Left-sided nephroureteral stent in good position. Sarwat Suarez MD Upper Extremity Ultrasound 06/23/17 Signed Impressions: Service Date/Time: June 20:03 - CONCLUSION: Noncompressibility right cephalic vein and left basilic vein consistent with venous thrombosis Trav Hsieh MD Lower Extremity Ultrasound 06/23/17 Signed Impressions: Service Date/Time: June 20:16 - CONCLUSION: Normal examination. No evidence DVT Trav Hsieh MD Chest CT 06/20/17 Signed Impressions: Service Date/Time: Tuesday, June 20, 2017 07:42 - CONCLUSION: 1. Bilateral effusions and consolidative changes in both lung bases. Bao Lora MD Abdomen/Pelvis CT 06/20/17 Signed Impressions: Service Date/Time: Tuesday, June 20, 2017 07:39 - CONCLUSION: 1. Dilated stomach and multiple dilated loops of small bowel, likely ileus. 2. No definite gastric volvulus. 3. Fat containing right inguinal hernia which also contains small portion of the urinary bladder and minimal fluid. 4. Left-sided nephroureteral stent in good position. 5. Bibasilar consolidation and small pleural effusions. Sarwat Suarez MD Objective Remarks GENERAL: NAD, A&Ox3 HEAD: Normocephalic. NECK: Supple, trachea midline. No lymphadenopathy. EYES: No scleral icterus. No injection or drainage. CARDIOVASCULAR: Regular rate and rhythm without murmurs, gallops, or rubs. RESPIRATORY: Breath sounds equal bilaterally. No accessory muscle use. GASTROINTESTINAL: Abdomen soft, non-tender, nondistended. MUSCULOSKELETAL: No cyanosis, or edema. Sacral ulcer has wound VAC in place. SKIN: Warm and dry. NEURO: No focal neurological deficitis. PSYCH: Flattened affect. Medications and IVs Current Medications Medications (Trade) Dose Ordered Sig/[place] Route Start Time Stop Time Status Last Admin (Zofran Inj) 4 mg Q4H PRN IV PUSH 06/17/17 22:00 07/28/17 21:45 Miscellaneous Information Patient in critical care unit? Ass... Q361D .XX 06/18/17 05:45 06/18/17 05:45 (Albuterol Neb) 2.5 mg Q2HR NEB PRN NEB 06/29/17 14:30 07/05/17 08:44 (K-Lyte Cl Eff) 25 meq DAILY PO 07/05/17 12:00 07/30/17 09:00 (Cardizem) 60 mg Q6HR PO 07/05/17 12:45 07/30/17 05:21 (Santyl Oint) 1 applic DAILY TOPICAL 07/07/17 09:00 07/29/17 08:50 (Symbicort 160-4.5 Inh) 1 puff Q12HR INH 07/07/17 09:00 07/30/17 10:50 (Lovenox Inj) 40 mg Q24H SQ 07/09/17 09:00 07/30/17 09:00 (Lomotil Tab) 1 tab Q6H PRN PO 07/10/17 11:00 (Protonix) 40 mg DAILY PO 07/11/17 09:00 07/30/17 09:00 (Lanoxin) 0.125 mg DAILY PO 07/11/17 09:00 07/30/17 09:00 (NovoLOG SUPPLEMENTAL SCALE) 1 ACHS SQ 07/11/17 17:00 07/29/17 12:36 (D50w (Vial) Inj) 50 ml UNSCH PRN IV PUSH 07/11/17 15:00 (Glucagon Inj) 1 mg UNSCH PRN OTHER 07/11/17 15:00 (VANCOMYCIN for oral use only) 250 mg QID PO 07/13/17 18:00 08/04/17 18:00 07/30/17 09:00 Patient Own Medication PT OWN MED: VIIB... HS PO 07/15/17 21:00 07/29/17 20:55 (Dilaudid Pf Inj) 0.5 mg Q4H PRN IV PUSH 07/18/17 12:15 07/28/17 17:12 (Dakin'S 0.125% Soln) 500 ml MoWeFr TOPICAL 07/20/17 13:00 07/29/17 12:09 (Flomax) 0.4 mg HS PO 07/23/17 21:00 07/29/17 20:55 (Deltasone) 10 mg DAILY PO 07/27/17 09:00 07/30/17 09:00 (Percocet 5-325 Mg) 1 tab Q4H PRN PO 07/27/17 11:45 (Percocet 10-325 Mg) 1 tab Q4H PRN PO 07/28/17 18:15 07/30/17 09:00 Date of Insertion: Jun 18, 2017 Side: Left Location: Internal A/P Problem List: (1) Tachycardia ICD Code: R00.0 - Tachycardia, unspecified (2) Hypertension ICD Code: I10 - Essential (primary) hypertension (3) Leukocytosis ICD Code: D72.829 - Elevated white blood cell count, unspecified (4) UTI (urinary tract infection) ICD Code: N39.0 - Urinary tract infection, site not specified (5) Acute kidney injury ICD Code: N17.9 - Acute kidney failure, unspecified (6) Cancer of rectum ICD Code: C20 - Malignant neoplasm of rectum (7) 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 Code: Z93.2 - Ileostomy status (8) Sepsis ICD Code: A41.9 - Sepsis, unspecified organism Assessment and Plan 67 year-old male admitted with respiratory failure secondary to pneumonia and COPD exacerbation. Prolonged time on vent, patient now has decubitus ulcer. Status post wound VAC placement. Acute respiratory failure/ Pseudomonal pneumonia/ Pseudomonas bacteremia/ COPD with exacerbation Patient extubated 07/06/17, on room air. ID consult appreciated. - Continue bronchodilators, inhaled steroids and mucolytic's. - Continue incentive spirometry. - on prednisone. - continue PT/ OT. - s/p IV vancomycin and cefepime per infectious disease A. fib with RVR Improved. - Follow on telemetry. - Continue by mouth Cardizem and digoxin. - Continue Lovenox. - Continue diuresis. Status post left colectomy/ Colorectal cancer/ Ileus S/p diverting ileostomy, wedge resection of liver metastases and resection of the left ureter. - continue Alvimopam 12mg BID for Ileus. - Continue Hna catheter. - Continue diuretics. - follow up with surgery. - PT/ OT. - ADAT. Calorie count to be repeated 07/30. C. difficile enteritis - Continue by mouth vancomycin per ID. Stop date 08/04. Sacral ulcer Plastic surgery consulted. Cleared for discharge. - Continue wound care. - pain control. - follow up with colorectal surgery. Left upper extremity thrombosis Asymptomatic. - continue prophylactic Lovenox. Follow up with hematology. DVT prophylaxis Lovenox Discharge Planning Will need placement with wound vac. Norman Liz DO Jul 30, 2017 11:20
[2017-07-30] MEDS: TAMSULOSIN HCL 0.4 MG CAP PO SCH (21:37)
[2017-07-30] MEDS: VIIBRYD 40 MG PO SCH (21:38)
[2017-07-31] VITALS: BP 108/55; PULSE 90; RESP 17; TEMP 98.2; O2SAT 96
[2017-07-31 04:00] VITALS: BP 119/61; PULSE 89; RESP 18; TEMP 98.9; O2SAT 96
[2017-07-31] MEDS: DILTIAZEM HCL 60 MG TAB PO SCH ×4 (05:55→23:48)
[2017-07-31 07:19] LABS: MEAN CELL VOLUME 93.8 FL (80.0-100.0); MEAN CORPUSCULAR HEMOGLOBIN 30.5 PG (27.0-34.0); MEAN CORPUSCULAR HGB CONC 32.5 % (32.0-36.0); PLATELET COUNT 250 TH/MM3 (150-450); RED BLOOD COUNT 2.88 MIL/MM3 (4.50-5.90); RED CELL DISTRIBUTION WIDTH 21.1 % (11.6-17.2); REVIEW FLAG FINAL; WHITE BLOOD COUNT 8.4 TH/MM3 (4.0-11.0)
[2017-07-31 07:29] LABS: BICARBONATE 26.5 MEQ/L (21.0-32.0)
[2017-07-31] MEDS: INSULIN ASPART SUPPLEMENTAL SCALE SQ SCH ×4 (08:00→20:27)
[2017-07-31 08:05] VITALS: BP 117/62; PULSE 99; RESP 18; TEMP 98.5; O2SAT 96
[2017-07-31] MEDS: POTASSIUM CHLORIDE 25 MEQ EFFERVESCENT TAB PO SCH (08:36)
[2017-07-31] MEDS: PANTOPRAZOLE SOD 40 MG DELAYED RELEASE TAB PO SCH (08:37)
[2017-07-31] MEDS: DIGOXIN 0.125 MG TAB PO SCH (08:37)
[2017-07-31] MEDS: oxyCODONE/ACETAMINOPHEN 10 MG/325 MG TAB PO PRN ×5 (08:38→21:10)
[2017-07-31] MEDS: VANCOMYCIN 500 MG VIAL (FOR ORAL USE ONLY) PO SCH ×4 (08:38→20:26)
[2017-07-31] MEDS: ENOXAPARIN SODIUM 40 MG/0.4 ML SYRINGE SQ SCH (08:38)
[2017-07-31] MEDS: predniSONE 10 MG TAB PO SCH (08:38)
[2017-07-31] MEDS: COLLAGENASE OINT 30 GM TUBE TOPICAL SCH (08:50)
[2017-07-31] MEDS: BUDESONIDE-FORMOTEROL 160/4.5 MCG INHALER INH SCH ×2 (08:50→20:27)
--- NOTE | 2017-07-31 09:55 | HHI.PR ---
Subjective Remarks Needs nutrition. Seems to have better intake. Will start new calorie count. Pt does not want hospice. He is disease free at this time. Once he recovers planning Ileostomy closure. He is quite weak with loss of lean muscle mass. Unable to get OOB. Objective Vital Signs Date Time Temp Pulse Resp B/P (MAP) Pulse Ox O2 Delivery O2 Flow Rate FiO2 07/31/17 08:51 Room Air 07/31/17 08:05 98.5 99 18 117/62 (80) 96 07/31/17 04:00 Room Air 07/31/17 04:00 98.9 89 18 119/61 (80) 96 07/31/17 00:00 Room Air 07/31/17 00:00 98.2 90 17 108/55 (72) 96 07/30/17 23:32 18 07/30/17 21:45 Room Air 07/30/17 20:00 98.3 82 17 116/60 (78) 95 07/30/17 16:05 97.8 80 18 108/52 (70) 96 07/30/17 12:05 97.7 83 18 107/55 (72) 97 07/30/17 10:43 94 Room Air 07/30/17 10:36 90 I/O 07/30/17 07/30/17 07/30/17 07/31/17 07/31/17 07/31/17 07:00 15:00 23:00 07:00 15:00 23:00 Intake Total 650 ml 240 ml 650 ml Output Total 1300 ml 900 ml 800 ml Balance -650 ml -660 ml -150 ml Intake Oral 650 ml 240 ml 650 ml Output Urine Total 1300 ml 800 ml 800 ml Stool Total 100 ml # Bowel Movements 0 Result Diagram: 07/31/1762307/31/17623 Objective Remarks VS-S Abd: Soft. Flat. Wound healed. Stoma working. . I&Os: OK Labs: OK Assessment and Plan Assessment and Plan Decubitus Poor nutrition Severe deconditioning UTI resolved. D/C to Rehab when all consultants agree Repeat calorie counts. C/O early satiety.Await results. Still may need PEG for several months Needs aggressive PT and Nutrition to fully heal decubitus and recover Continue PO vancomycin Luca Geiger MD Jul 31, 2017 09:55
--- NOTE | 2017-07-31 11:19 | HHI.PR ---
Subjective Remarks The patient was resting comfortably. He said his pain was controlled at the moment. He had no acute concerns. Discussed with nursing. Objective Vitals Vital Signs Date Time Temp Pulse Resp B/P (MAP) Pulse Ox O2 Delivery O2 Flow Rate FiO2 07/31/17 08:51 Room Air 07/31/17 08:05 98.5 99 18 117/62 (80) 96 07/31/17 04:00 Room Air 07/31/17 04:00 98.9 89 18 119/61 (80) 96 07/31/17 00:00 Room Air 07/31/17 00:00 98.2 90 17 108/55 (72) 96 07/30/17 23:32 18 07/30/17 21:45 Room Air 07/30/17 20:00 98.3 82 17 116/60 (78) 95 07/30/17 16:05 97.8 80 18 108/52 (70) 96 07/30/17 12:05 97.7 83 18 107/55 (72) 97 I/O 07/30/17 07/30/17 07/30/17 07/31/17 07/31/17 07/31/17 07:00 15:00 23:00 07:00 15:00 23:00 Intake Total 650 ml 240 ml 650 ml Output Total 1300 ml 900 ml 800 ml Balance -650 ml -660 ml -150 ml Intake Oral 650 ml 240 ml 650 ml Output Urine Total 1300 ml 800 ml 800 ml Stool Total 100 ml # Bowel Movements 0 Result Diagram: 07/31/17 0624 07/31/17 0624 Imaging Last Impressions Chest X-Ray 07/18/17 0000 Signed Impressions: Service Date/Time: Tuesday, July 18, 2017 16:30 - CONCLUSION: Improvement Minimal consolidation remain right base. Alfredo Lora MD FACR Cholangiopancreatography MRI 07/15/17 0000 Signed Impressions: Service Date/Time: Saturday, July 15, 2017 15:02 - CONCLUSION: 1. Ascites with small bilateral pleural effusions. 2. Small contracted gallbladder without definite stones 3. No definite common duct stone. 4. Pancreas obscured by motion. Alfredo Lora MD FACR Liver Ultrasound 07/14/17 0000 Signed Impressions: Service Date/Time: July 16:45 - CONCLUSION: 1. Small volume ascites. 2. Bilateral pleural effusions. 3. Sludge within the gallbladder with a top normal thickness of the gallbladder wall. No sonographic evidence to suggest acute cholecystitis. Pierce Ospina Jr., MD Abdomen X-Ray 07/06/17 0000 Signed Impressions: Service Date/Time: Thursday, July 06, 2017 13:44 - CONCLUSION: 1. Gaseous distention of multiple bowel loops. This has slightly improved. 2. Left-sided nephroureteral stent in good position. Sarwat Suarez MD Upper Extremity Ultrasound 06/23/17 Signed Impressions: Service Date/Time: June 20:03 - CONCLUSION: Noncompressibility right cephalic vein and left basilic vein consistent with venous thrombosis Trav Hsieh MD Lower Extremity Ultrasound 06/23/17 Signed Impressions: Service Date/Time: June 20:16 - CONCLUSION: Normal examination. No evidence DVT Trav Hsieh MD Chest CT 06/20/17 Signed Impressions: Service Date/Time: Tuesday, June 20, 2017 07:42 - CONCLUSION: 1. Bilateral effusions and consolidative changes in both lung bases. Bao Lora MD Abdomen/Pelvis CT 06/20/17 0000 Signed Impressions: Service Date/Time: Tuesday, June 20, 2017 07:39 - CONCLUSION: 1. Dilated stomach and multiple dilated loops of small bowel, likely ileus. 2. No definite gastric volvulus. 3. Fat containing right inguinal hernia which also contains small portion of the urinary bladder and minimal fluid. 4. Left-sided nephroureteral stent in good position. 5. Bibasilar consolidation and small pleural effusions. Sarwat Suarez MD Objective Remarks GENERAL: NAD, A&Ox3 HEAD: Normocephalic. NECK: Supple, trachea midline. No lymphadenopathy. EYES: No scleral icterus. No injection or drainage. CARDIOVASCULAR: Regular rate and rhythm without murmurs, gallops, or rubs. RESPIRATORY: Breath sounds equal bilaterally. No accessory muscle use. GASTROINTESTINAL: Abdomen soft, non-tender, nondistended. MUSCULOSKELETAL: No cyanosis, or edema. Sacral ulcer has wound VAC in place. SKIN: Warm and dry. NEURO: No focal neurological deficitis. PSYCH: Flattened affect. Medications and IVs Current Medications Medications (Trade) Dose Ordered Sig/[place] Route Start Time Stop Time Status Last Admin (Zofran Inj) 4 mg Q4H PRN IV PUSH 06/17/17 22:00 07/28/17 21:45 Miscellaneous Information Patient in critical care unit? Ass... Q361D .XX 06/18/17 05:45 06/18/17 05:45 (Albuterol Neb) 2.5 mg Q2HR NEB PRN NEB 06/29/17 14:30 07/05/17 08:44 (K-Lyte Cl Eff) 25 meq DAILY PO 07/05/17 12:00 07/31/17 08:36 (Cardizem) 60 mg Q6HR PO 07/05/17 12:45 07/31/17 05:55 (Santyl Oint) 1 applic DAILY TOPICAL 07/07/17 09:00 07/31/17 08:50 (Symbicort 160-4.5 Inh) 1 puff Q12HR INH 07/07/17 09:00 07/31/17 08:50 (Lovenox Inj) 40 mg Q24H SQ 07/09/17 09:00 07/31/17 08:38 (Lomotil Tab) 1 tab Q6H PRN PO 07/10/17 11:00 (Protonix) 40 mg DAILY PO 07/11/17 09:00 07/31/17 08:37 (Lanoxin) 0.125 mg DAILY PO 07/11/17 09:00 07/31/17 08:37 (NovoLOG SUPPLEMENTAL SCALE) 1 ACHS SQ 07/11/17 17:00 07/29/17 12:36 (D50w (Vial) Inj) 50 ml UNSCH PRN IV PUSH 07/11/17 15:00 (Glucagon Inj) 1 mg UNSCH PRN OTHER 07/11/17 15:00 (VANCOMYCIN for oral use only) 250 mg QID PO 07/13/17 18:00 08/04/17 18:00 07/31/17 08:38 Patient Own Medication PT OWN MED: VIIB... HS PO 07/15/17 21:00 07/30/17 21:38 (Dilaudid Pf Inj) 0.5 mg Q4H PRN IV PUSH 07/18/17 12:15 11/23/17 17:12 (Dakin'S 0.125% Soln) 500 ml MoWeFr TOPICAL 07/20/17 13:00 07/29/17 12:09 (Flomax) 0.4 mg HS PO 07/23/17 21:00 07/30/17 21:37 (Deltasone) 10 mg DAILY PO 07/27/17 09:00 07/31/17 08:38 (Percocet 5-325 Mg) 1 tab Q4H PRN PO 07/27/17 11:45 (Percocet 10-325 Mg) 1 tab Q4H PRN PO 07/28/17 18:15 07/31/17 08:38 Date of Insertion: Jun 18, 2017 Side: Left Location: Internal A/P Problem List: (1) Tachycardia ICD Code: R00.0 - Tachycardia, unspecified (2) Hypertension ICD Code: I10 - Essential (primary) hypertension (3) Leukocytosis ICD Code: D72.829 - Elevated white blood cell count, unspecified (4) UTI (urinary tract infection) ICD Code: N39.0 - Urinary tract infection, site not specified (5) Acute kidney injury ICD Code: N17.9 - Acute kidney failure, unspecified (6) Cancer of rectum ICD Code: C20 - Malignant neoplasm of rectum (7) 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 Code: Z93.2 - Ileostomy status (8) Sepsis ICD Code: A41.9 - Sepsis, unspecified organism Assessment and Plan 67 year-old male admitted with respiratory failure secondary to pneumonia and COPD exacerbation. Prolonged time on vent, patient now has decubitus ulcer. Status post wound VAC placement. Acute respiratory failure/ Pseudomonal pneumonia/ Pseudomonas bacteremia/ COPD with exacerbation Patient extubated 07/06/17, on room air. ID consult appreciated. - Continue bronchodilators, inhaled steroids and mucolytic's. - Continue incentive spirometry. - d/c prednisone 07/31. - continue PT/ OT. - s/p IV vancomycin and cefepime per infectious disease A. fib with RVR Improved. - Follow on telemetry. - Continue by mouth Cardizem and digoxin. - Continue Lovenox. - Continue diuresis. Status post left colectomy/ Colorectal cancer/ Ileus S/p diverting ileostomy, wedge resection of liver metastases and resection of the left ureter. - continue Alvimopam 12mg BID for Ileus. - Continue Han catheter. - Continue diuretics. - follow up with surgery. - PT/ OT. - ADAT. Calorie count to be repeated 07/31. C. difficile enteritis - Continue by mouth vancomycin per ID. Stop date 08/04. Sacral ulcer Plastic surgery consulted. Cleared for discharge. - Continue wound care. - pain control. - follow up with colorectal surgery. Left upper extremity thrombosis Asymptomatic. - continue prophylactic Lovenox. Follow up with hematology. DVT prophylaxis Lovenox Discharge Planning Will need placement with wound vac. Norman Liz DO Jul 31, 2017 11:19
[2017-07-31 12:05] VITALS: BP 123/64; PULSE 95; RESP 18; TEMP 98.6; O2SAT 94
[2017-07-31 16:05] VITALS: BP 110/59; PULSE 84; RESP 18; TEMP 98.4; O2SAT 96
[2017-07-31 20:00] VITALS: BP 108/61; PULSE 82; RESP 18; TEMP 98.4; O2SAT 94
[2017-07-31] MEDS: TAMSULOSIN HCL 0.4 MG CAP PO SCH (20:25)
[2017-07-31] MEDS: VIIBRYD 40 MG PO SCH (20:26)
[2017-08-01] VITALS: BP 113/63; PULSE 83; RESP 19; TEMP 98.2; O2SAT 99
[2017-08-01 04:00] VITALS: BP 118/62; PULSE 88; RESP 18; TEMP 98; O2SAT 96
[2017-08-01] MEDS: DILTIAZEM HCL 60 MG TAB PO SCH ×4 (04:53→23:53)
[2017-08-01 08:00] VITALS: BP 115/66; PULSE 93; RESP 18; TEMP 98; O2SAT 93
[2017-08-01] MEDS: INSULIN ASPART SUPPLEMENTAL SCALE SQ SCH ×4 (08:00→20:41)
[2017-08-01] MEDS: COLLAGENASE OINT 30 GM TUBE TOPICAL SCH (09:00)
[2017-08-01] MEDS: PANTOPRAZOLE SOD 40 MG DELAYED RELEASE TAB PO SCH (09:18)
[2017-08-01] MEDS: ENOXAPARIN SODIUM 40 MG/0.4 ML SYRINGE SQ SCH (09:18)
[2017-08-01] MEDS: VANCOMYCIN 500 MG VIAL (FOR ORAL USE ONLY) PO SCH ×4 (09:18→20:40)
[2017-08-01] MEDS: DIGOXIN 0.125 MG TAB PO SCH (09:18)
[2017-08-01] MEDS: POTASSIUM CHLORIDE 25 MEQ EFFERVESCENT TAB PO SCH (09:19)
[2017-08-01] MEDS: BUDESONIDE-FORMOTEROL 160/4.5 MCG INHALER INH SCH ×2 (09:20→20:42)
[2017-08-01] MEDS: oxyCODONE/ACETAMINOPHEN 10 MG/325 MG TAB PO PRN ×3 (09:24→18:13)
--- NOTE | 2017-08-01 10:08 | HHI.PR ---
Subjective Remarks Needs nutrition. Seems to have better intake. New calorie count in progress. Again I addressed PEG tube with pt. He thought it was a painful tube in his nose. He may consider a PEG if it will accelerate his D/C to a rehab. I encouraged him to at least consider especially if new calorie count shows that he is not meeting his requirements.Pt does not want hospice. He is disease free at this time. Once he recovers planning Ileostomy closure. He is quite weak with loss of lean muscle mass. Unable to get OOB. Objective Vital Signs Date Time Temp Pulse Resp B/P (MAP) Pulse Ox O2 Delivery O2 Flow Rate FiO2 08/01/17 08:00 98.0 93 18 115/66 (82) 93 08/01/17 04:00 Room Air 08/01/17 04:00 98.0 88 18 118/62 (80) 96 08/01/17 00:00 98.2 83 19 113/63 (80) 99 08/01/17 00:00 Room Air 07/31/17 20:30 Room Air 07/31/17 20:00 98.4 82 18 108/61 (77) 94 07/31/17 16:05 98.4 84 18 110/59 (76) 96 07/31/17 12:05 98.6 95 18 123/64 (83) 94 I/O 07/31/17 07/31/17 07/31/17 08/01/17 08/01/17 08/01/17 07:00 15:00 23:00 07:00 15:00 23:00 Intake Total 650 ml 320 ml 650 ml Output Total 800 ml 0 ml 900 ml 1000 ml Balance -150 ml 0 ml -580 ml -350 ml Intake Oral 650 ml 320 ml 650 ml Output Urine Total 800 ml 900 ml 1000 ml Drainage Total 0 ml # Bowel Movements 0 Result Diagram: 07/31/1762307/31/17623 Objective Remarks VS-S Abd: Soft. Flat. Wound healed. Stoma working. . I&Os: OK Labs: OK Assessment and Plan Assessment and Plan Decubitus Poor nutrition. Discussed PEG once again and explained in more detail. He will consider depending on calorie count Severe deconditioning UTI resolved. D/C to Rehab when all consultants agree Repeat calorie counts. C/O early satiety. Await results. Still may need PEG for several months Needs aggressive PT and Nutrition to fully heal decubitus and recover Continue PO vancomycin Luca Geiger MD Aug 01, 2017 10:08
[2017-08-01 12:00] VITALS: BP 113/65; PULSE 93; RESP 20; TEMP 98; O2SAT 97
--- NOTE | 2017-08-01 12:38 | HHI.PR ---
Subjective Remarks The patient wanted to use his cell phone. He said that he was scheduled for debridement at 2:00. He said he would probably not be able to do physical therapy after that because it would be too painful. Discussed with nursing. Objective Vitals Vital Signs Date Time Temp Pulse Resp B/P (MAP) Pulse Ox O2 Delivery O2 Flow Rate FiO2 08/01/17 08:00 98.0 93 18 115/66 (82) 93 08/01/17 07:15 Room Air 08/01/17 04:00 Room Air 08/01/17 04:00 98.0 88 18 118/62 (80) 96 08/01/17 00:00 98.2 83 19 113/63 (80) 99 08/01/17 00:00 Room Air 07/31/17 20:30 Room Air 07/31/17 20:00 98.4 82 18 108/61 (77) 94 07/31/17 16:05 98.4 84 18 110/59 (76) 96 I/O 07/31/17 07/31/17 07/31/17 08/01/17 08/01/17 08/01/17 07:00 15:00 23:00 07:00 15:00 23:00 Intake Total 650 ml 320 ml 650 ml Output Total 800 ml 0 ml 900 ml 1000 ml Balance -150 ml 0 ml -580 ml -350 ml Intake Oral 650 ml 320 ml 650 ml Output Urine Total 800 ml 900 ml 1000 ml Drainage Total 0 ml # Bowel Movements 0 Result Diagram: 07/31/17 0624 07/31/17 0624 Imaging Last Impressions Chest X-Ray 07/18/17 0000 Signed Impressions: Service Date/Time: Tuesday, July 18, 2017 16:30 - CONCLUSION: Improvement Minimal consolidation remain right base. Alfredo Lora MD FACR Cholangiopancreatography MRI 07/15/17 0000 Signed Impressions: Service Date/Time: Saturday, July 15, 2017 15:02 - CONCLUSION: 1. Ascites with small bilateral pleural effusions. 2. Small contracted gallbladder without definite stones 3. No definite common duct stone. 4. Pancreas obscured by motion. Alfredo Lora MD FACR Liver Ultrasound 07/14/17 0000 Signed Impressions: Service Date/Time: July 16:45 - CONCLUSION: 1. Small volume ascites. 2. Bilateral pleural effusions. 3. Sludge within the gallbladder with a top normal thickness of the gallbladder wall. No sonographic evidence to suggest acute cholecystitis. Pierce Ospina Jr., MD Abdomen X-Ray 07/06/17 Signed Impressions: Service Date/Time: Thursday, July 06, 2017 13:44 - CONCLUSION: 1. Gaseous distention of multiple bowel loops. This has slightly improved. 2. Left-sided nephroureteral stent in good position. Sarwat Suarez MD Upper Extremity Ultrasound 06/23/17 Signed Impressions: Service Date/Time: June 20:03 - CONCLUSION: Noncompressibility right cephalic vein and left basilic vein consistent with venous thrombosis Trav Hsieh MD Lower Extremity Ultrasound 06/23/17 Signed Impressions: Service Date/Time: June 20:16 - CONCLUSION: Normal examination. No evidence DVT Trav Hsieh MD Chest CT 06/20/17 Signed Impressions: Service Date/Time: Tuesday, June 20, 2017 07:42 - CONCLUSION: 1. Bilateral effusions and consolidative changes in both lung bases. Bao Lora MD Abdomen/Pelvis CT 06/20/17 Signed Impressions: Service Date/Time: Tuesday, June 20, 2017 07:39 - CONCLUSION: 1. Dilated stomach and multiple dilated loops of small bowel, likely ileus. 2. No definite gastric volvulus. 3. Fat containing right inguinal hernia which also contains small portion of the urinary bladder and minimal fluid. 4. Left-sided nephroureteral stent in good position. 5. Bibasilar consolidation and small pleural effusions. Sarwat Suarez MD Objective Remarks GENERAL: NAD, A&Ox3 HEAD: Normocephalic. NECK: Supple, trachea midline. No lymphadenopathy. EYES: No scleral icterus. No injection or drainage. CARDIOVASCULAR: Regular rate and rhythm without murmurs, gallops, or rubs. RESPIRATORY: Breath sounds equal bilaterally. No accessory muscle use. GASTROINTESTINAL: Abdomen soft, non-tender, nondistended. MUSCULOSKELETAL: No cyanosis, or edema. Sacral ulcer has wound VAC in place. SKIN: Warm and dry. NEURO: No focal neurological deficitis. PSYCH: Flattened affect. Medications and IVs Current Medications Medications (Trade) Dose Ordered Sig/[place] Route Start Time Stop Time Status Last Admin (Zofran Inj) 4 mg Q4H PRN IV PUSH 06/17/17 22:00 07/28/17 21:45 Miscellaneous Information Patient in critical care unit? Ass... Q361D .XX 06/18/17 05:45 06/18/17 05:45 (Albuterol Neb) 2.5 mg Q2HR NEB PRN NEB 06/29/17 14:30 07/05/17 08:44 (K-Lyte Cl Eff) 25 meq DAILY PO 07/05/17 12:00 08/01/17 09:19 (Cardizem) 60 mg Q6HR PO 07/05/17 12:45 08/01/17 04:53 (Santyl Oint) 1 applic DAILY TOPICAL 07/07/17 09:00 07/31/17 08:50 (Symbicort 160-4.5 Inh) 1 puff Q12HR INH 07/07/17 09:00 08/01/17 09:20 (Lovenox Inj) 40 mg Q24H SQ 07/09/17 09:00 08/01/17 09:18 (Lomotil Tab) 1 tab Q6H PRN PO 07/10/17 11:00 (Protonix) 40 mg DAILY PO 07/11/17 09:00 08/01/17 09:18 (Lanoxin) 0.125 mg DAILY PO 07/11/17 09:00 08/01/17 09:18 (NovoLOG SUPPLEMENTAL SCALE) 1 ACHS SQ 07/11/17 17:00 07/29/17 12:36 (D50w (Vial) Inj) 50 ml UNSCH PRN IV PUSH 07/11/17 15:00 (Glucagon Inj) 1 mg UNSCH PRN OTHER 07/11/17 15:00 (VANCOMYCIN for oral use only) 250 mg QID PO 07/13/17 18:00 08/04/17 18:00 08/01/17 09:18 Patient Own Medication PT OWN MED: VIIB... HS PO 07/15/17 21:00 07/31/17 20:26 (Dilaudid Pf Inj) 0.5 mg Q4H PRN IV PUSH 07/18/17 12:15 07/28/17 17:12 (Dakin'S 0.125% Soln) 500 ml MoWeFr TOPICAL 07/20/17 13:00 07/29/17 12:09 (Flomax) 0.4 mg HS PO 07/23/17 21:00 07/31/17 20:25 (Percocet 5-325 Mg) 1 tab Q4H PRN PO 07/27/17 11:45 (Percocet 10-325 Mg) 1 tab Q4H PRN PO 07/28/17 18:15 08/01/17 09:24 Date of Insertion: Jun 18, 2017 Side: Left Location: Internal A/P Problem List: (1) Tachycardia ICD Code: R00.0 - Tachycardia, unspecified (2) Hypertension ICD Code: I10 - Essential (primary) hypertension (3) Leukocytosis ICD Code: D72.829 - Elevated white blood cell count, unspecified (4) UTI (urinary tract infection) ICD Code: N39.0 - Urinary tract infection, site not specified (5) Acute kidney injury ICD Code: N17.9 - Acute kidney failure, unspecified (6) Cancer of rectum ICD Code: C20 - Malignant neoplasm of rectum (7) 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 Code: Z93.2 - Ileostomy status (8) Sepsis ICD Code: A41.9 - Sepsis, unspecified organism Assessment and Plan 67 year-old male admitted with respiratory failure secondary to pneumonia and COPD exacerbation. Prolonged time on vent, patient now has decubitus ulcer. Status post wound VAC placement. Acute respiratory failure/ Pseudomonal pneumonia/ Pseudomonas bacteremia/ COPD with exacerbation Patient extubated 07/06/17, on room air. ID consult appreciated. - Continue bronchodilators, inhaled steroids and mucolytic's. - Continue incentive spirometry. - d/c prednisone 07/31. - continue PT/ OT. - s/p IV vancomycin and cefepime per infectious disease A. fib with RVR HR stable 08/01. - Follow on telemetry. - Continue by mouth Cardizem and digoxin. - Continue Lovenox. - Continue diuresis. Status post left colectomy/ Colorectal cancer/ Ileus S/p diverting ileostomy, wedge resection of liver metastases and resection of the left ureter. - continue Alvimopam 12mg BID for Ileus. - Continue Han catheter. - Continue diuretics. - follow up with surgery. - PT/ OT. - ADAT. Calorie count recs to be given 08/03. C. difficile enteritis - Continue by mouth vancomycin per ID. Stop date 08/04. Sacral ulcer Plastic surgery consulted. Cleared for discharge. - Continue wound care. - pain control. - follow up with colorectal surgery. Left upper extremity thrombosis Asymptomatic. - continue prophylactic Lovenox. Follow up with hematology. DVT prophylaxis Lovenox Discharge Planning Will need placement with wound vac. Norman Liz DO Aug 01, 2017 12:38
[2017-08-01 16:00] VITALS: BP 114/68; PULSE 97; RESP 18; TEMP 98.3; O2SAT 96
[2017-08-01] MEDS: HYDROmorphone HCL PF 0.5 MG/0.5 ML SYRINGE IV PUSH PRN (16:17)
[2017-08-01] MEDS: SODIUM HYPOCHLORITE 0.125% 500 ML BTL TOPICAL SCH (16:18)
[2017-08-01 20:00] VITALS: BP 107/79; PULSE 100; RESP 16; TEMP 97.7; O2SAT 96
[2017-08-01] MEDS: VIIBRYD 40 MG PO SCH (20:40)
[2017-08-01] MEDS: TAMSULOSIN HCL 0.4 MG CAP PO SCH (20:40)
[2017-08-02] VITALS: BP 129/68; PULSE 90; RESP 16; TEMP 98.2; O2SAT 97
[2017-08-02] MEDS: ONDANSETRON HCL 4 MG/2 ML VIAL IV PUSH PRN (02:17)
[2017-08-02 04:00] VITALS: BP 128/73; PULSE 98; RESP 16; TEMP 97.7; O2SAT 96
[2017-08-02] MEDS: DILTIAZEM HCL 60 MG TAB PO SCH ×3 (05:26→18:06)
[2017-08-02] MEDS: oxyCODONE/ACETAMINOPHEN 10 MG/325 MG TAB PO PRN ×3 (05:59→14:26)
[2017-08-02 08:00] VITALS: BP 125/66; PULSE 94; RESP 16; TEMP 98.4; O2SAT 96
[2017-08-02] MEDS: INSULIN ASPART SUPPLEMENTAL SCALE SQ SCH ×4 (08:00→21:00)
[2017-08-02] MEDS: COLLAGENASE OINT 30 GM TUBE TOPICAL SCH (09:00)
[2017-08-02] MEDS: BUDESONIDE-FORMOTEROL 160/4.5 MCG INHALER INH SCH ×2 (09:00→21:00)
[2017-08-02] MEDS: PANTOPRAZOLE SOD 40 MG DELAYED RELEASE TAB PO SCH (09:31)
[2017-08-02] MEDS: DIGOXIN 0.125 MG TAB PO SCH (09:31)
[2017-08-02] MEDS: POTASSIUM CHLORIDE 25 MEQ EFFERVESCENT TAB PO SCH (09:31)
[2017-08-02] MEDS: VANCOMYCIN 500 MG VIAL (FOR ORAL USE ONLY) PO SCH ×4 (09:33→21:05)
[2017-08-02] MEDS: ENOXAPARIN SODIUM 40 MG/0.4 ML SYRINGE SQ SCH (09:34)
[2017-08-02 12:00] VITALS: BP 119/64; PULSE 96; RESP 16; TEMP 98.6; O2SAT 96
--- NOTE | 2017-08-02 13:14 | HHI.PR ---
Subjective Remarks Pt seen earier this AM.Needs nutrition. Seems to have better intake. New calorie count in progress. Again I addressed PEG tube with pt yesterday. Pt does not want hospice. He is disease free at this time. Once he recovers planning Ileostomy closure. He is quite weak with loss of lean muscle mass. Unable to get OOB. Objective Vital Signs Date Time Temp Pulse Resp B/P (MAP) Pulse Ox O2 Delivery O2 Flow Rate FiO2 08/02/17 12:00 98.6 96 16 119/64 (82) 96 08/02/17 08:00 98.4 94 16 125/66 (85) 96 08/02/17 07:00 Room Air 08/02/17 04:00 97.7 98 16 128/73 (91) 96 08/02/17 04:00 Room Air 08/02/17 00:00 98.2 90 16 129/68 (88) 97 08/02/17 00:00 Room Air 08/01/17 20:00 97.7 100 16 107/79 (88) 96 08/01/17 20:00 Room Air 08/01/17 16:00 98.3 97 18 114/68 (83) 96 I/O 08/01/17 08/01/17 08/01/17 08/02/17 08/02/17 08/02/17 07:00 15:00 23:00 07:00 15:00 23:00 Intake Total 650 ml 960 ml Output Total 1000 ml 600 ml 500 ml Balance -350 ml 360 ml -500 ml Intake Oral 650 ml 960 ml Output Urine Total 1000 ml 600 ml 500 ml # Bowel Movements 0 Result Diagram: 07/31/1762307/31/17623 Objective Remarks VS-S Abd: Soft. Flat. Wound healed. Stoma working. . I&Os: OK Labs: OK Assessment and Plan Assessment and Plan Decubitus Poor nutrition. Discussed PEG once again yesterday. He will consider depending on calorie count Severe deconditioning UTI resolved. D/C to Rehab when all consultants agree Repeat calorie counts. C/O early satiety. Await results. Still may need PEG for several months Needs aggressive PT and Nutrition to fully heal decubitus and recover Continue PO vancomycin Should have PT everyday including weekends. Luca Geiger MD Aug 02, 2017 13:14
[2017-08-02 16:00] VITALS: BP 118/64; PULSE 94; RESP 18; TEMP 98; O2SAT 94
--- NOTE | 2017-08-02 17:10 | HHI.PR ---
Subjective Remarks Patient states has decreased appetite and some difficulty eating by himself. The patient denies abdominal pain, nausea, vomiting. Objective Vitals Vital Signs Date Time Temp Pulse Resp B/P (MAP) Pulse Ox O2 Delivery O2 Flow Rate FiO2 08/02/17 12:00 98.6 96 16 119/64 (82) 96 08/02/17 08:00 98.4 94 16 125/66 (85) 96 08/02/17 07:00 Room Air 08/02/17 04:00 97.7 98 16 128/73 (91) 96 08/02/17 04:00 Room Air 08/02/17 00:00 98.2 90 16 129/68 (88) 97 08/02/17 00:00 Room Air 08/01/17 20:00 97.7 100 16 107/79 (88) 96 08/01/17 20:00 Room Air I/O 08/01/17 08/01/17 08/01/17 08/02/17 08/02/17 08/02/17 07:00 15:00 23:00 07:00 15:00 23:00 Intake Total 650 ml 960 ml Output Total 1000 ml 600 ml 500 ml Balance -350 ml 360 ml -500 ml Intake Oral 650 ml 960 ml Output Urine Total 1000 ml 600 ml 500 ml # Bowel Movements 0 Result Diagram: 07/31/17 0624 07/31/17 0624 Imaging Last Impressions Chest X-Ray 07/18/17 0000 Signed Impressions: Service Date/Time: Tuesday, July 18, 2017 16:30 - CONCLUSION: Improvement Minimal consolidation remain right base. Alfredo Lora MD FACR Cholangiopancreatography MRI 07/15/17 0000 Signed Impressions: Service Date/Time: Saturday, July 15, 2017 15:02 - CONCLUSION: 1. Ascites with small bilateral pleural effusions. 2. Small contracted gallbladder without definite stones 3. No definite common duct stone. 4. Pancreas obscured by motion. Alfredo Lora MD FACR Liver Ultrasound 07/14/17 0000 Signed Impressions: Service Date/Time: July 16:45 - CONCLUSION: 1. Small volume ascites. 2. Bilateral pleural effusions. 3. Sludge within the gallbladder with a top normal thickness of the gallbladder wall. No sonographic evidence to suggest acute cholecystitis. Pierce Ospina Jr., MD Abdomen X-Ray 07/06/17 0000 Signed Impressions: Service Date/Time: Thursday, July 06, 2017 13:44 - CONCLUSION: 1. Gaseous distention of multiple bowel loops. This has slightly improved. 2. Left-sided nephroureteral stent in good position. Sarwat Suarez MD Upper Extremity Ultrasound 06/23/17 0000 Signed Impressions: Service Date/Time: June 20:03 - CONCLUSION: Noncompressibility right cephalic vein and left basilic vein consistent with venous thrombosis Trav Hsieh MD Lower Extremity Ultrasound 06/23/17 0000 Signed Impressions: Service Date/Time: June 20:16 - CONCLUSION: Normal examination. No evidence DVT Trav Hsieh MD Chest CT 06/20/17 0000 Signed Impressions: Service Date/Time: Tuesday, June 20, 2017 07:42 - CONCLUSION: 1. Bilateral effusions and consolidative changes in both lung bases. Bao Lora MD Abdomen/Pelvis CT 06/20/17 0000 Signed Impressions: Service Date/Time: Tuesday, June 20, 2017 07:39 - CONCLUSION: 1. Dilated stomach and multiple dilated loops of small bowel, likely ileus. 2. No definite gastric volvulus. 3. Fat containing right inguinal hernia which also contains small portion of the urinary bladder and minimal fluid. 4. Left-sided nephroureteral stent in good position. 5. Bibasilar consolidation and small pleural effusions. Sarwat Suarez MD Objective Remarks GENERAL: NAD, A&Ox3 HEAD: Normocephalic. NECK: Supple, trachea midline. No lymphadenopathy. EYES: No scleral icterus. No injection or drainage. CARDIOVASCULAR: Regular rate and rhythm without murmurs, gallops, or rubs. RESPIRATORY: Breath sounds equal bilaterally. No accessory muscle use. GASTROINTESTINAL: Abdomen soft, non-tender, nondistended. MUSCULOSKELETAL: No cyanosis, or edema. Sacral ulcer has wound VAC in place. SKIN: Warm and dry. NEURO: No focal neurological deficitis. PSYCH: Flattened affect. Medications and IVs Current Medications Medications (Trade) Dose Ordered Sig/[place] Route Start Time Stop Time Status Last Admin (Zofran Inj) 4 mg Q4H PRN IV PUSH 06/17/17 22:00 08/02/17 02:17 Miscellaneous Information Patient in critical care unit? Ass... Q361D .XX 06/18/17 05:45 06/18/17 05:45 (Albuterol Neb) 2.5 mg Q2HR NEB PRN NEB 06/29/17 14:30 07/05/17 08:44 (K-Lyte Cl Eff) 25 meq DAILY PO 07/05/17 12:00 08/02/17 09:31 (Cardizem) 60 mg Q6HR PO 07/05/17 12:45 08/02/17 13:03 (Santyl Oint) 1 applic DAILY TOPICAL 07/07/17 09:00 07/31/17 08:50 (Symbicort 160-4.5 Inh) 1 puff Q12HR INH 07/07/17 09:00 08/02/17 09:00 (Lovenox Inj) 40 mg Q24H SQ 07/09/17 09:00 08/02/17 09:34 (Lomotil Tab) 1 tab Q6H PRN PO 07/10/17 11:00 (Protonix) 40 mg DAILY PO 07/11/17 09:00 08/02/17 09:31 (Lanoxin) 0.125 mg DAILY PO 07/11/17 09:00 08/02/17 09:31 (NovoLOG SUPPLEMENTAL SCALE) 1 ACHS SQ 07/11/17 17:00 07/29/17 12:36 (D50w (Vial) Inj) 50 ml UNSCH PRN IV PUSH 07/11/17 15:00 (Glucagon Inj) 1 mg UNSCH PRN OTHER 07/11/17 15:00 (VANCOMYCIN for oral use only) 250 mg QID PO 07/13/17 18:00 08/04/17 18:00 08/02/17 13:02 Patient Own Medication PT OWN MED: VIIB... HS PO 07/15/17 21:00 08/01/17 20:40 (Dilaudid Pf Inj) 0.5 mg Q4H PRN IV PUSH 07/18/17 12:15 08/01/17 16:17 (Dakin'S 0.125% Soln) 500 ml MoWeFr TOPICAL 07/20/17 13:00 08/01/17 16:18 (Flomax) 0.4 mg HS PO 07/23/17 21:00 08/01/17 20:40 (Percocet 5-325 Mg) 1 tab Q4H PRN PO 07/27/17 11:45 (Percocet 10-325 Mg) 1 tab Q4H PRN PO 07/28/17 18:15 08/02/17 14:26 Urinary Catheter: No Assessment to: Continue Date of Insertion: Jun 18, 2017 Side: Left Location: Internal A/P Problem List: (1) Tachycardia ICD Code: R00.0 - Tachycardia, unspecified (2) Hypertension ICD Code: I10 - Essential (primary) hypertension (3) Leukocytosis ICD Code: D72.829 - Elevated white blood cell count, unspecified (4) UTI (urinary tract infection) ICD Code: N39.0 - Urinary tract infection, site not specified (5) Acute kidney injury ICD Code: N17.9 - Acute kidney failure, unspecified (6) Cancer of rectum ICD Code: C20 - Malignant neoplasm of rectum (7) 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 Code: Z93.2 - Ileostomy status (8) Sepsis ICD Code: A41.9 - Sepsis, unspecified organism Assessment and Plan 67 year-old male admitted with respiratory failure secondary to pneumonia and COPD exacerbation. Prolonged time on vent, patient now has decubitus ulcer. Status post wound VAC placement. Acute respiratory failure/ Pseudomonal pneumonia/ Pseudomonas bacteremia/ COPD with exacerbation Patient extubated 07/06/17, on room air. ID consult appreciated. - Continue bronchodilators, inhaled steroids and mucolytic's. - Continue incentive spirometry. - d/c prednisone 07/31. - continue PT/ OT. - s/p IV vancomycin and cefepime per infectious disease A. fib with RVR - Follow on telemetry. - Continue by mouth Cardizem and digoxin. - Continue Lovenox. - Continue diuresis. - 08/02 Heart rate controlled. Cardiology consulted and following. Status post left colectomy/ Colorectal cancer/ Ileus S/p diverting ileostomy, wedge resection of liver metastases and resection of the left ureter. - continue Alvimopam 12mg BID for Ileus. - Continue Han catheter. - Continue diuretics. - follow up with surgery. - PT/ OT. - ADAT. Calorie count recs to be given 08/03. C. difficile enteritis - Continue by mouth vancomycin per ID. Stop date 08/04. Sacral ulcer Plastic surgery consulted. Cleared for discharge. - Continue wound care. - pain control. - follow up with colorectal surgery. Left upper extremity thrombosis Asymptomatic. - continue prophylactic Lovenox. Follow up with hematology. DVT prophylaxis Lovenox Chad Marrero MD Aug 02, 2017 17:10
[2017-08-02 20:00] VITALS: BP 115/75; PULSE 92; RESP 18; TEMP 98.1; O2SAT 96
[2017-08-02] MEDS: VIIBRYD 40 MG PO SCH (21:05)
[2017-08-02] MEDS: TAMSULOSIN HCL 0.4 MG CAP PO SCH (21:05)
[2017-08-03] VITALS: BP 118/79; PULSE 90; RESP 17; TEMP 97.9; O2SAT 95
[2017-08-03] MEDS: oxyCODONE/ACETAMINOPHEN 10 MG/325 MG TAB PO PRN ×4 (03:08→21:44)
[2017-08-03 04:00] VITALS: BP 142/65; PULSE 88; RESP 17; TEMP 97.6; O2SAT 97
[2017-08-03] MEDS: DILTIAZEM HCL 60 MG TAB PO SCH ×5 (06:16→23:37)
[2017-08-03] MEDS: HYDROmorphone HCL PF 0.5 MG/0.5 ML SYRINGE IV PUSH PRN (06:16)
[2017-08-03 08:00] VITALS: BP 121/63; PULSE 90; RESP 18; TEMP 98.2; O2SAT 96
[2017-08-03] MEDS: INSULIN ASPART SUPPLEMENTAL SCALE SQ SCH ×4 (08:00→21:00)
[2017-08-03] MEDS: COLLAGENASE OINT 30 GM TUBE TOPICAL SCH (09:00)
[2017-08-03] MEDS: VANCOMYCIN 500 MG VIAL (FOR ORAL USE ONLY) PO SCH ×4 (09:03→21:44)
[2017-08-03] MEDS: DIGOXIN 0.125 MG TAB PO SCH (09:03)
[2017-08-03] MEDS: POTASSIUM CHLORIDE 25 MEQ EFFERVESCENT TAB PO SCH (09:03)
[2017-08-03] MEDS: PANTOPRAZOLE SOD 40 MG DELAYED RELEASE TAB PO SCH (09:03)
[2017-08-03] MEDS: ENOXAPARIN SODIUM 40 MG/0.4 ML SYRINGE SQ SCH (09:03)
[2017-08-03] MEDS: BUDESONIDE-FORMOTEROL 160/4.5 MCG INHALER INH SCH ×2 (09:04→21:00)
--- NOTE | 2017-08-03 09:21 | HHI.PR ---
Subjective Remarks Pt seen earlier thia AM. Still struggling with intake. Calorie count pending Objective Vital Signs Date Time Temp Pulse Resp B/P (MAP) Pulse Ox O2 Delivery O2 Flow Rate FiO2 08/03/17 04:00 97.6 88 17 142/65 (90) 97 08/03/17 04:00 Room Air 08/03/17 00:00 Room Air 08/03/17 00:00 97.9 90 17 118/79 (92) 95 08/02/17 20:00 Room Air 08/02/17 20:00 98.1 92 18 115/75 (88) 96 08/02/17 16:00 98.0 94 18 118/64 (82) 94 08/02/17 12:00 98.6 96 16 119/64 (82) 96 I/O 08/02/17 08/02/17 08/02/17 08/03/17 08/03/17 08/03/17 07:00 15:00 23:00 07:00 15:00 23:00 Intake Total 480 ml 510 ml Output Total 500 ml 400 ml 125 ml Balance -500 ml 80 ml 385 ml Intake Oral 480 ml 510 ml Output Urine Total 500 ml 400 ml Stool Total 125 ml # Voids 3 # Bowel Movements 0 Result Diagram: 07/31/1762307/31/17623 Objective Remarks VS-S Abd: Soft. Flat. Wound healed. Stoma working. . Assessment and Plan Assessment and Plan Decubitus Poor nutrition. He will consider PEG depending on calorie count Severe deconditioning UTI resolved. D/C to Rehab when all consultants agree Repeat calorie counts. C/O early satiety. Await results. Still may need PEG for several months Needs aggressive PT and Nutrition to fully heal decubitus and recover Continue PO vancomycin Should have PT everyday including weekends. Luca Geiger MD Aug 03, 2017 09:21
[2017-08-03 12:00] VITALS: BP 127/69; PULSE 90; RESP 18; TEMP 98.6; O2SAT 95
[2017-08-03] MEDS: SODIUM HYPOCHLORITE 0.125% 500 ML BTL TOPICAL SCH (12:59)
[2017-08-03 16:00] VITALS: BP 117/64; PULSE 97; RESP 16; TEMP 98.2; O2SAT 95
--- NOTE | 2017-08-03 17:10 | HHI.PR ---
Subjective Remarks strill c/o poor appetite. As per patient's who is at bedside, patient has been experiencing mild hallucinations and confusion. Patient denies abdominal pain, nausea or vomiting. Objective Vitals Vital Signs Date Time Temp Pulse Resp B/P (MAP) Pulse Ox O2 Delivery O2 Flow Rate FiO2 08/03/17 12:00 98.6 90 18 127/69 (88) 95 08/03/17 08:00 98.2 90 18 121/63 (82) 96 08/03/17 07:00 Room Air 08/03/17 04:00 97.6 88 17 142/65 (90) 97 08/03/17 04:00 Room Air 08/03/17 00:00 Room Air 08/03/17 00:00 97.9 90 17 118/79 (92) 95 08/02/17 20:00 Room Air 08/02/17 20:00 98.1 92 18 115/75 (88) 96 I/O 08/02/17 08/02/17 08/02/17 08/03/17 08/03/17 08/03/17 07:00 15:00 23:00 07:00 15:00 23:00 Intake Total 480 ml 510 ml Output Total 500 ml 400 ml 125 ml Balance -500 ml 80 ml 385 ml Intake Oral 480 ml 510 ml Output Urine Total 500 ml 400 ml Stool Total 125 ml # Voids 3 # Bowel Movements 0 Result Diagram: 07/31/1762307/31/17623 Objective Remarks GENERAL: NAD, A&Ox3 HEAD: Normocephalic. NECK: Supple, trachea midline. No lymphadenopathy. EYES: No scleral icterus. No injection or drainage. CARDIOVASCULAR: Regular rate and rhythm without murmurs, gallops, or rubs. RESPIRATORY: Breath sounds equal bilaterally. No accessory muscle use. GASTROINTESTINAL: Abdomen soft, non-tender, nondistended. MUSCULOSKELETAL: No cyanosis, or edema. Sacral ulcer has wound VAC in place. SKIN: Warm and dry. NEURO: No focal neurological deficitis. PSYCH: Flattened affect. Medications and IVs Current Medications Medications (Trade) Dose Ordered Sig/[place] Route Start Time Stop Time Status Last Admin (Zofran Inj) 4 mg Q4H PRN IV PUSH 06/17/17 22:00 08/02/17 02:17 Miscellaneous Information Patient in critical care unit? Ass... Q361D .XX 06/18/17 05:45 06/18/17 05:45 (Albuterol Neb) 2.5 mg Q2HR NEB PRN NEB 06/29/17 14:30 07/05/17 08:44 (K-Lyte Cl Eff) 25 meq DAILY PO 07/05/17 12:00 08/03/17 09:03 (Cardizem) 60 mg Q6HR PO 07/05/17 12:45 08/03/17 12:58 (Santyl Oint) 1 applic DAILY TOPICAL 07/07/17 09:00 07/31/17 08:50 (Symbicort 160-4.5 Inh) 1 puff Q12HR INH 07/07/17 09:00 08/03/17 09:04 (Lovenox Inj) 40 mg Q24H SQ 07/09/17 09:00 08/03/17 09:03 (Lomotil Tab) 1 tab Q6H PRN PO 07/10/17 11:00 (Protonix) 40 mg DAILY PO 07/11/17 09:00 08/03/17 09:03 (Lanoxin) 0.125 mg DAILY PO 07/11/17 09:00 08/03/17 09:03 (NovoLOG SUPPLEMENTAL SCALE) 1 ACHS SQ 07/11/17 17:00 07/29/17 12:36 (D50w (Vial) Inj) 50 ml UNSCH PRN IV PUSH 07/11/17 15:00 (Glucagon Inj) 1 mg UNSCH PRN OTHER 07/11/17 15:00 (VANCOMYCIN for oral use only) 250 mg QID PO 07/13/17 18:00 08/04/17 18:00 08/03/17 12:59 Patient Own Medication PT OWN MED: VIIB... HS PO 07/15/17 21:00 08/02/17 21:05 (Dilaudid Pf Inj) 0.5 mg Q4H PRN IV PUSH 07/18/17 12:15 08/03/17 06:16 (Dakin'S 0.125% Soln) 500 ml MoWeFr TOPICAL 07/20/17 13:00 08/03/17 12:59 (Flomax) 0.4 mg HS PO 07/23/17 21:00 08/02/17 21:05 (Percocet 5-325 Mg) 1 tab Q4H PRN PO 07/27/17 11:45 (Percocet 10-325 Mg) 1 tab Q4H PRN PO 07/28/17 18:15 08/03/17 13:34 Date of Insertion: Jun 18, 2017 Side: Left Location: Internal A/P Problem List: (1) Tachycardia ICD Code: R00.0 - Tachycardia, unspecified (2) Hypertension ICD Code: I10 - Essential (primary) hypertension (3) Leukocytosis ICD Code: D72.829 - Elevated white blood cell count, unspecified (4) UTI (urinary tract infection) ICD Code: N39.0 - Urinary tract infection, site not specified (5) Acute kidney injury ICD Code: N17.9 - Acute kidney failure, unspecified (6) Cancer of rectum ICD Code: C20 - Malignant neoplasm of rectum (7) 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 Code: Z93.2 - Ileostomy status (8) Sepsis ICD Code: A41.9 - Sepsis, unspecified organism Assessment and Plan 67 year-old male admitted with respiratory failure secondary to pneumonia and COPD exacerbation. Prolonged time on vent, patient now has decubitus ulcer. Status post wound VAC placement. Acute respiratory failure/ Pseudomonal pneumonia/ Pseudomonas bacteremia/ COPD with exacerbation Patient extubated 07/06/17, on room air. ID consult appreciated. - Continue bronchodilators, inhaled steroids and mucolytic's. - Continue incentive spirometry. - d/c prednisone 07/31. - continue PT/ OT. - s/p IV vancomycin and cefepime per infectious disease A. fib with RVR - Follow on telemetry. - Continue by mouth Cardizem and digoxin. - Continue Lovenox. - Continue diuresis. - 08/02 Heart rate controlled. Cardiology consulted and following. Status post left colectomy/ Colorectal cancer/ Ileus S/p diverting ileostomy, wedge resection of liver metastases and resection of the left ureter. - continue Alvimopam 12mg BID for Ileus. - Continue Han catheter. - Continue diuretics. - follow up with surgery. - PT/ OT. - 08/03 dietitian recommends meals to be set up for this patient. I will start the patient on Megace as an appetite stimulant. Nutrition support at this time is not indicated given the patient is eating more than 50% of the lower end calorie/PROM needs C. difficile enteritis - Continue by mouth vancomycin per ID. Stop date 08/04. - Diarrhea has resolved and patient is having normal bowel movements. Sacral ulcer Plastic surgery consulted. Cleared for discharge. - Continue wound care. - pain control. - follow up with colorectal surgery. Left upper extremity thrombosis Asymptomatic. - continue prophylactic Lovenox. Follow up with hematology. DVT prophylaxis Lovenox Discharge Planning The patient is medically cleared to be discharge to SNF. Chad Marrero MD Aug 03, 2017 17:10
[2017-08-03] MEDS ORDERED: MEGESTROL ACETATE SUSP 400 MG/10 ML CUP PO ONE (17:15)
[2017-08-03] MEDS: ONDANSETRON HCL 4 MG/2 ML VIAL IV PUSH PRN ×2 (17:21→21:45)
[2017-08-03 20:00] VITALS: BP 136/70; PULSE 97; RESP 20; TEMP 98.3; O2SAT 93
[2017-08-03] MEDS: TAMSULOSIN HCL 0.4 MG CAP PO SCH (21:44)
[2017-08-03] MEDS: VIIBRYD 40 MG PO SCH (21:44)
[2017-08-04] VITALS: BP 137/71; PULSE 107; RESP 18; TEMP 98.7; O2SAT 95
[2017-08-04 04:00] VITALS: BP 130/74; PULSE 96; RESP 20; TEMP 98.4; O2SAT 94
[2017-08-04] MEDS: DILTIAZEM HCL 60 MG TAB PO SCH ×4 (06:27→22:57)
[2017-08-04 08:00] VITALS: BP 129/74; PULSE 100; RESP 18; TEMP 98.2; O2SAT 95
[2017-08-04] MEDS: INSULIN ASPART SUPPLEMENTAL SCALE SQ SCH ×4 (08:00→21:00)
[2017-08-04] MEDS: oxyCODONE/ACETAMINOPHEN 10 MG/325 MG TAB PO PRN (08:51)
[2017-08-04] MEDS: DIGOXIN 0.125 MG TAB PO SCH (08:51)
[2017-08-04] MEDS: PANTOPRAZOLE SOD 40 MG DELAYED RELEASE TAB PO SCH (08:51)
[2017-08-04] MEDS: MEGESTROL ACETATE SUSP 400 MG/10 ML CUP PO SCH (08:52)
[2017-08-04] MEDS: POTASSIUM CHLORIDE 25 MEQ EFFERVESCENT TAB PO SCH (08:52)
[2017-08-04] MEDS: ENOXAPARIN SODIUM 40 MG/0.4 ML SYRINGE SQ SCH (08:52)
[2017-08-04] MEDS: VANCOMYCIN 500 MG VIAL (FOR ORAL USE ONLY) PO SCH ×4 (08:52→21:22)
[2017-08-04] MEDS: BUDESONIDE-FORMOTEROL 160/4.5 MCG INHALER INH SCH ×2 (08:53→21:00)
[2017-08-04] MEDS: COLLAGENASE OINT 30 GM TUBE TOPICAL SCH (08:59)
[2017-08-04] MEDS: ONDANSETRON HCL 4 MG/2 ML VIAL IV PUSH PRN ×2 (11:48→21:21)
[2017-08-04 12:00] VITALS: BP 130/77; PULSE 102; RESP 18; TEMP 98.3; O2SAT 96
[2017-08-04 13:14] LABS: MEAN CELL VOLUME 92.8 FL (80.0-100.0); MEAN CORPUSCULAR HGB CONC 32.3 % (32.0-36.0); PLATELET COUNT 363 TH/MM3 (150-450); RED BLOOD COUNT 3.34 MIL/MM3 (4.50-5.90); RED CELL DISTRIBUTION WIDTH 19.2 % (11.6-17.2); REVIEW FLAG FINAL; WHITE BLOOD COUNT 15.2 TH/MM3 (4.0-11.0)
[2017-08-04 13:25] LABS: BICARBONATE 25.6 MEQ/L (21.0-32.0); POTASSIUM 4.4 MEQ/L (3.5-5.1)
--- NOTE | 2017-08-04 14:08 | HHI.PR ---
Subjective Remarks as per Rn report patient had e episodes of vomiting today - just reported few minutes ago. WBC noted to be increasing Objective Vitals Vital Signs Date Time Temp Pulse Resp B/P (MAP) Pulse Ox O2 Delivery O2 Flow Rate FiO2 08/04/17 12:00 98.3 102 18 130/77 (94) 96 08/04/17 08:00 98.2 100 18 129/74 (92) 95 08/04/17 04:00 98.4 96 20 130/74 (92) 94 08/04/17 00:00 98.7 107 18 137/71 (93) 95 08/03/17 20:00 98.3 97 20 136/70 (92) 93 08/03/17 19:45 Room Air 08/03/17 16:00 98.2 97 16 117/64 (81) 95 I/O 08/03/17 08/03/17 08/03/17 08/04/17 08/04/17 08/04/17 07:00 15:00 23:00 07:00 15:00 23:00 Intake Total 510 ml 240 ml 360 ml Output Total 125 ml 275 ml 725 ml Balance 385 ml -35 ml -365 ml Intake Oral 510 ml 240 ml 360 ml Output Urine Total 275 ml 725 ml Stool Total 125 ml # Voids 3 # Bowel Movements 0 0 Result Diagram: 08/04/17 1215 08/04/17 1215 Imaging Last Impressions Chest X-Ray 07/18/17 0000 Signed Impressions: Service Date/Time: Tuesday, July 18, 2017 16:30 - CONCLUSION: Improvement Minimal consolidation remain right base. Alfredo Lora MD FACR Cholangiopancreatography MRI 07/15/17 0000 Signed Impressions: Service Date/Time: Saturday, July 15, 2017 15:02 - CONCLUSION: 1. Ascites with small bilateral pleural effusions. 2. Small contracted gallbladder without definite stones 3. No definite common duct stone. 4. Pancreas obscured by motion. Alfredo Lora MD FACR Liver Ultrasound 07/14/17 0000 Signed Impressions: Service Date/Time: July 16:45 - CONCLUSION: 1. Small volume ascites. 2. Bilateral pleural effusions. 3. Sludge within the gallbladder with a top normal thickness of the gallbladder wall. No sonographic evidence to suggest acute cholecystitis. Pierce Ospina Jr., MD Abdomen X-Ray 07/06/17 0000 Signed Impressions: Service Date/Time: Thursday, July 06, 2017 13:44 - CONCLUSION: 1. Gaseous distention of multiple bowel loops. This has slightly improved. 2. Left-sided nephroureteral stent in good position. Sarwat Suarez MD Upper Extremity Ultrasound 06/23/17 0000 Signed Impressions: Service Date/Time: June 20:03 - CONCLUSION: Noncompressibility right cephalic vein and left basilic vein consistent with venous thrombosis Trav Hsieh MD Lower Extremity Ultrasound 06/23/17 0000 Signed Impressions: Service Date/Time: June 20:16 - CONCLUSION: Normal examination. No evidence DVT Trav Hsieh MD Chest CT 06/20/17 0000 Signed Impressions: Service Date/Time: Tuesday, June 20, 2017 07:42 - CONCLUSION: 1. Bilateral effusions and consolidative changes in both lung bases. Bao Lora MD Abdomen/Pelvis CT 06/20/17 0000 Signed Impressions: Service Date/Time: Tuesday, June 20, 2017 07:39 - CONCLUSION: 1. Dilated stomach and multiple dilated loops of small bowel, likely ileus. 2. No definite gastric volvulus. 3. Fat containing right inguinal hernia which also contains small portion of the urinary bladder and minimal fluid. 4. Left-sided nephroureteral stent in good position. 5. Bibasilar consolidation and small pleural effusions. Sarwat Suarez MD Objective Remarks GENERAL: NAD, A&Ox3 HEAD: Normocephalic. NECK: Supple, trachea midline. No lymphadenopathy. EYES: No scleral icterus. No injection or drainage. CARDIOVASCULAR: Regular rate and rhythm without murmurs, gallops, or rubs. RESPIRATORY: Breath sounds equal bilaterally. No accessory muscle use. GASTROINTESTINAL: Abdomen soft, non-tender, nondistended. MUSCULOSKELETAL: No cyanosis, or edema. Sacral ulcer has wound VAC in place. SKIN: Warm and dry. NEURO: No focal neurological deficitis. PSYCH: Flattened affect. Medications and IVs Current Medications Medications (Trade) Dose Ordered Sig/[place] Route Start Time Stop Time Status Last Admin (Zofran Inj) 4 mg Q4H PRN IV PUSH 06/17/17 22:00 08/04/17 11:48 Miscellaneous Information Patient in critical care unit? Ass... Q361D .XX 06/18/17 05:45 06/18/17 05:45 (Albuterol Neb) 2.5 mg Q2HR NEB PRN NEB 06/29/17 14:30 07/05/17 08:44 (K-Lyte Cl Eff) 25 meq DAILY PO 07/05/17 12:00 08/04/17 08:52 (Cardizem) 60 mg Q6HR PO 07/05/17 12:45 08/04/17 11:25 (Santyl Oint) 1 applic DAILY TOPICAL 07/07/17 09:00 07/31/17 08:50 (Symbicort 160-4.5 Inh) 1 puff Q12HR INH 07/07/17 09:00 08/04/17 08:53 (Lovenox Inj) 40 mg Q24H SQ 07/09/17 09:00 08/04/17 08:52 (Lomotil Tab) 1 tab Q6H PRN PO 07/10/17 11:00 (Protonix) 40 mg DAILY PO 07/11/17 09:00 08/04/17 08:51 (Lanoxin) 0.125 mg DAILY PO 07/11/17 09:00 08/04/17 08:51 (NovoLOG SUPPLEMENTAL SCALE) 1 ACHS SQ 07/11/17 17:00 07/29/17 12:36 (D50w (Vial) Inj) 50 ml UNSCH PRN IV PUSH 07/11/17 15:00 (Glucagon Inj) 1 mg UNSCH PRN OTHER 07/11/17 15:00 (VANCOMYCIN for oral use only) 250 mg QID PO 07/13/17 18:00 08/04/17 18:00 08/04/17 11:26 Patient Own Medication PT OWN MED: VIIB... HS PO 07/15/17 21:00 08/03/17 21:44 (Dilaudid Pf Inj) 0.5 mg Q4H PRN IV PUSH 07/18/17 12:15 08/03/17 06:16 (Dakin'S 0.125% Soln) 500 ml MoWeFr TOPICAL 07/20/17 13:00 08/03/17 12:59 (Flomax) 0.4 mg HS PO 07/23/17 21:00 08/03/17 21:44 (Percocet 5-325 Mg) 1 tab Q4H PRN PO 07/27/17 11:45 (Percocet 10-325 Mg) 1 tab Q4H PRN PO 07/28/17 18:15 08/04/17 08:51 (Megace Liq) 400 mg DAILY PO 08/04/17 09:00 08/04/17 08:52 Date of Insertion: Jun 18, 2017 Side: Left Location: Internal A/P Problem List: (1) Nausea & vomiting ICD Code: R11.2 - Nausea with vomiting, unspecified (2) Tachycardia ICD Code: R00.0 - Tachycardia, unspecified (3) Hypertension ICD Code: I10 - Essential (primary) hypertension (4) Leukocytosis ICD Code: D72.829 - Elevated white blood cell count, unspecified (5) UTI (urinary tract infection) ICD Code: N39.0 - Urinary tract infection, site not specified (6) Acute kidney injury ICD Code: N17.9 - Acute kidney failure, unspecified (7) Cancer of rectum ICD Code: C20 - Malignant neoplasm of rectum (8) 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 Code: Z93.2 - Ileostomy status (9) Sepsis ICD Code: A41.9 - Sepsis, unspecified organism Assessment and Plan 67 year-old male admitted with respiratory failure secondary to pneumonia and COPD exacerbation. Prolonged time on vent, patient now has decubitus ulcer. Status post wound VAC placement. Acute respiratory failure/ Pseudomonal pneumonia/ Pseudomonas bacteremia/ COPD with exacerbation Patient extubated 07/06/17, on room air. ID consult appreciated. - Continue bronchodilators, inhaled steroids and mucolytic's. - Continue incentive spirometry. - d/c prednisone 07/31. - continue PT/ OT. - s/p IV vancomycin and cefepime per infectious disease A. fib with RVR - Follow on telemetry. - Continue by mouth Cardizem and digoxin. - Continue Lovenox. - Continue diuresis. - 08/02 Heart rate controlled. Cardiology consulted and following. Status post left colectomy/ Colorectal cancer/ Ileus S/p diverting ileostomy, wedge resection of liver metastases and resection of the left ureter. - continue Alvimopam 12mg BID for Ileus. - Continue Han catheter. - Continue diuretics. - follow up with surgery. - PT/ OT. - 08/03 dietitian recommends meals to be set up for this patient. I will start the patient on Megace as an appetite stimulant. Nutrition support at this time is not indicated given the patient is eating more than 50% of the lower end calorie/PROM needs. - 08/[address] Tran - patient agrees to PEG tube. C. difficile enteritis - Continue by mouth vancomycin per ID. Stop date 08/04. - Diarrhea has resolved and patient is having normal bowel movements. Sacral ulcer Plastic surgery consulted. Cleared for discharge. - Continue wound care. - pain control. - follow up with colorectal surgery. Left upper extremity thrombosis Asymptomatic. - continue prophylactic Lovenox. Follow up with hematology. Leukocytosis - Patient with WBC increased to 15 k. Will check urinalysis and cxr. ? new sepsis. Fu CBC w diff. Consider Id consult. Patient has been afebrile. - Start IV Cefepime. Consider infectious disease reconsult. DVT prophylaxis Lovenox Discharge Planning Patient not cleared medically - new leukocytosis, tachycardia and vomiting Chad Marrero MD Aug 04, 2017 14:08
--- NOTE | 2017-08-04 14:29 | HHI.PR ---
Subjective Remarks Still struggling with intake. Calorie count 2505-1290 deepthi without home foods. an dpt have finally agreed to PEG tube. Pt will likely not survive in NH without some means to give more nutrition. is agreeable to have me decrease his narcotics as well. WBC sl up today. Has indwelling stent in L ureter. Prior Pseudomonas UTI. Cefepime stopped at 10 days on 07/28. Will restart until urine culture returned. Objective Vital Signs Date Time Temp Pulse Resp B/P (MAP) Pulse Ox O2 Delivery O2 Flow Rate FiO2 08/04/17 12:00 98.3 102 18 130/77 (94) 96 08/04/17 08:00 98.2 100 18 129/74 (92) 95 08/04/17 04:00 98.4 96 20 130/74 (92) 94 08/04/17 00:00 98.7 107 18 137/71 (93) 95 08/03/17 20:00 98.3 97 20 136/70 (92) 93 08/03/17 19:45 Room Air 08/03/17 16:00 98.2 97 16 117/64 (81) 95 I/O 08/03/17 08/03/17 08/03/17 08/04/17 08/04/17 08/04/17 07:00 15:00 23:00 07:00 15:00 23:00 Intake Total 510 ml 240 ml 360 ml Output Total 125 ml 275 ml 725 ml Balance 385 ml -35 ml -365 ml Intake Oral 510 ml 240 ml 360 ml Output Urine Total 275 ml 725 ml Stool Total 125 ml # Voids 3 # Bowel Movements 0 0 Result Diagram: 08/04/17 1215 08/04/17 1215 Objective Remarks VS-S Gen: cachexia Abd: Soft. Flat. Wound healed. Stoma working. . Assessment and Plan Assessment and Plan Decubitus Poor nutrition. He will consider PEG depending on calorie count Severe deconditioning Agrees to PEG! Check urine and start Cefepime empirically for Pseudomonas Needs aggressive PT and Nutrition to fully heal decubitus and recover Continue PO vancomycin Should have PT everyday including weekends. Luca Geiger MD Aug 04, 2017 14:29
--- NOTE | 2017-08-04 15:11 | RADRPT ---
EXAM DATE/TIME: 08/04/2017 14:25 [facility] COMPARISON: CHEST SINGLE AP, July 18, 2017, 16:30. INDICATIONS : Short of breath. Leukocytosis. MEDICAL HISTORY : Hypertension. Hypercholesterolemia. Rectal/colon cancer. SURGICAL HISTORY : Appendectomy. Colon resection. Kidney surgery. ENCOUNTER: Initial ACUITY: 3 days PAIN SCORE: 0/10 LOCATION: Bilateral chest FINDINGS: A single portable frontal view the chest shows low lung volumes. Consolidation is seen within the lef t lung base. The right lung base is now clear. No effusions. Heart normal in size. CONCLUSION: Infiltrate within left lower lobe. Right lung is now clear. Pierce Ospina Jr., MD on August 04, 2017 at 15:08 Board Certified Radiologist. This report was verified electronically.
[2017-08-04] MEDS: CEFEPIME INJ 2,000 MG in SODIUM CHLORIDE 0.9% INJ 100 ML IV SCH (15:54)
[2017-08-04 16:00] VITALS: BP 132/74; PULSE 105; RESP 16; TEMP 98.7; O2SAT 94
[2017-08-04] MEDS: SODIUM CHLOR 0.9% 1000 ML INJ 1,000 ML IV SCH (16:45)
--- NOTE | 2017-08-04 17:11 | HHI.GIFU ---
Subjective Remarks Pt resting in bed. Says he's still not eating much, doesn't have energy and doesn't feel like it. GI reconsulted for PEG tube placement which pt now agrees to. (Laine Edmonds) Objective Vitals I&O Vital Signs Date Time Temp Pulse Resp B/P (MAP) Pulse Ox O2 Delivery O2 Flow Rate FiO2 08/04/17 14:41 Room Air 2.00 21 08/04/17 12:00 98.3 102 18 130/77 (94) 96 08/04/17 08:00 98.2 100 18 129/74 (92) 95 08/04/17 04:00 98.4 96 20 130/74 (92) 94 08/04/17 00:00 98.7 107 18 137/71 (93) 95 08/03/17 20:00 98.3 97 20 136/70 (92) 93 08/03/17 19:45 Room Air I/O 08/03/17 08/03/17 08/03/17 08/04/17 08/04/17 08/04/17 07:00 15:00 23:00 07:00 15:00 23:00 Intake Total 510 ml 240 ml 360 ml Output Total 125 ml 275 ml 725 ml Balance 385 ml -35 ml -365 ml Intake Oral 510 ml 240 ml 360 ml Output Urine Total 275 ml 725 ml Stool Total 125 ml # Voids 3 # Bowel Movements 0 0 Laboratory Laboratory Tests Test 08/04/17 12:15 White Blood Count 15.2 Red Blood Count 3.34 Hemoglobin 10.0 Hematocrit 31.0 Mean Corpuscular Volume 92.8 Mean Corpuscular Hemoglobin 30.0 Mean Corpuscular Hemoglobin Concent 32.3 Red Cell Distribution Width 19.2 Platelet Count 363 Mean Platelet Volume 8.3 Blood Urea Nitrogen 14 Creatinine 0.60 Random Glucose 93 Calcium Level 8.5 Sodium Level 133 Potassium Level 4.4 Chloride Level 100 Carbon Dioxide Level 25.6 Anion Gap 7 Estimat Glomerular Filtration Rate 134 Digoxin Level 1.4 Date/Time Source Procedure Growth Status 07/23/17 07:11 Blood Peripheral Aerobic Blood Culture - Final NO GROWTH IN 5 DAYS Complete 07/23/17 07:11 Blood Peripheral Anaerobic Blood Culture - Final NO GROWTH IN 5 DAYS Complete 07/02/17 17:00 Sputum Endotracheal Gram Stain - Final Complete 07/02/17 17:00 Sputum Culture - Final Pseudomonas Aeruginosa Complete 07/18/17 20:00 Urine Clean Catch Urine Culture - Final Pseudomonas Aeruginosa Complete Physical Exam GEN: emaciated HEENT: Normocephalic; atraumatic; no jaundice. CHEST: CTA CARDIAC: irr HR ABDOMEN: Soft, nondistended, nontender. soft brown stool ostomy EXTREMITIES: No edema CUSTOMS AND BORDER PROTECTION INSPECTOR: Alert and oriented, generalized weakness (Laine Edmonds) Assessment and Plan Plan ASSESSMENT: - malnutrition, poor PO intake - GI reconsulted for PEG tube placement which pt now agrees to. - Reconsulted for Elevated LFTs. We have evaluated him in the past for elevated LFTs. (Peak on 06/25- T. Bili 1.7, AST 1300, ALT 386, ALK Phosph 239) Previous workup- Liver US (06/24/17)---> Small volume ascites. Small right effusion. ASMA negative. Alpha 1 Antitrypsin 221. Hepatitis panel negative, LOIS neg, AMA < 20.0, Ceruloplasmin 74. AFP 3.3, Ferritin 5508. Iron saturation > 100%. He received one unit of blood on 06/18. Hfe gene negative C282Y, H63D undetected. It was thought that his previous elevation was multifactorial- related to infection, TPN, abx, and hypotension. We were consulted for worsening hyperbilirubinemia. Steroids discontinued on 06/13 due to possible cholestasis. Liver US (06/13/17) --->1. small volume ascites 2. bilateral pleural effusions 3. sludge within the gallbladder with a top normal thickness of the gallbladder wall. No sonographic evidence to suggest acute cholecystitis. MRCP 07/15/17-- 1. Ascites with small bilateral pleural effusions. 2. Small contracted gallbladder without definite stones 3. No definite common duct stone. 4. Pancreas obscured by motion. Patient denies abdominal pain. LFTs are improving. T. Bilirubin 6.4, AST 32, ALT 61, Alk Phosph 621. - Metastatic colon cancer. S/P lower anterior resection/coloanal anastomosis, resection and reanastomosis of the left ureter with ureteral anastomosis and double-J stent placement, wedge resection of hepatic metastasis, mobilization of the splenic flexure, and diverting closed loop ileostomy with Dr. Geiger and Dr. Pelayo on 05/26/17. Dr. Noel is his oncologist, but he has not seen him since his surgery - Sacral decubitus ulcer. S/P Excision sacral decubitus ulcer including skin, sq tissues, bone and muscle, placement of wound vac. (07/17/17) - Severe sepsis, CDifficile. S/P debridement of sacral decubitus ulcer. oral vanc, cefepime - Respiratory failure, small pleural effusion. Currently on RA - NEIL. Improved - Anemia. HH stable - Atrial fibrillation with RVR. Now sinus rhythm. Pt on Diltiazem. - Thrombocytopenia. improved PLAN: - EGD with PEG tube placement in am - nutrition reconsult for TF - NPO after midnight - obtain consents - on abx - further recs to follow This pt seen by myself and DR Busch and this note is written on her behalf (Laine Edmonds) Physician Comments seen, examined agree with above reconsult axle turner for possible tpn we will try peg in am -could be technically difficult (Yanni Busch MD) Laine Edmonds Aug 04, 2017 17:11 Yanni Busch MD Aug 04, 2017 19:37
[2017-08-04 18:04] LABS: BACTERIA, URINE MANY /hpf; BLOOD, URINE MOD (NEG); COMMENT (UR) CULTURE INDICATED; CULTURE IF INDICATED CULTURE INDICATED; GLUCOSE,URINE NEG (NEG); KETONE, URINE 10 mg/dL (NEG); NITRITE,URINE NEG (NEG); SQUAMOUS EPITHELIAL CELL URINE 2 /hpf (0-5); URINE COLOR YELLOW (YELLW/STRAW)
[2017-08-04 20:00] VITALS: BP 123/68; PULSE 96; RESP 18; TEMP 97.9; O2SAT 94
[2017-08-04] MEDS: VIIBRYD 40 MG PO SCH (21:22)
[2017-08-04] MEDS: TAMSULOSIN HCL 0.4 MG CAP PO SCH (21:22)
[2017-08-05] VITALS (7 sets, daily range): BP systolic 117–140; BP diastolic 62–78; PULSE 76–111; RESP 16–20; TEMP 97.5–98.6; O2SAT 92–97
[2017-08-05] MEDS: DILTIAZEM HCL 60 MG TAB PO SCH ×4 (01:22→18:00)
[2017-08-05] MEDS: oxyCODONE/ACETAMINOPHEN 5 MG/325 MG TAB PO PRN (01:22)
[2017-08-05] MEDS: SODIUM CHLOR 0.9% 1000 ML INJ 1,000 ML IV SCH ×3 (03:01→22:02)
[2017-08-05] MEDS: CEFEPIME INJ 2,000 MG in SODIUM CHLORIDE 0.9% INJ 100 ML IV SCH ×2 (03:01→15:28)
[2017-08-05] MEDS: INSULIN ASPART SUPPLEMENTAL SCALE SQ SCH ×4 (08:00→20:52)
[2017-08-05] MEDS: ENOXAPARIN SODIUM 40 MG/0.4 ML SYRINGE SQ SCH (09:00)
[2017-08-05] MEDS: COLLAGENASE OINT 30 GM TUBE TOPICAL SCH (09:00)
[2017-08-05] MEDS: PANTOPRAZOLE SOD 40 MG DELAYED RELEASE TAB PO SCH (10:58)
[2017-08-05] MEDS: BUDESONIDE-FORMOTEROL 160/4.5 MCG INHALER INH SCH ×2 (10:58→20:18)
[2017-08-05] MEDS: VANCOMYCIN 500 MG VIAL (FOR ORAL USE ONLY) PO SCH ×4 (10:59→20:19)
[2017-08-05] MEDS: MEGESTROL ACETATE SUSP 400 MG/10 ML CUP PO SCH (11:25)
[2017-08-05] MEDS ORDERED: PROPOFOL 200 MG/20 ML AMP IV ONE (12:00)
[2017-08-05] MEDS ORDERED: ePHEDrine/NS 25 MG/5 ML SYRINGE IV ONE (12:00)
[2017-08-05] MEDS ORDERED: LIDOCAINE HCL 1% PF 5 ML SYRINGE OTHER ONE (12:00)
[2017-08-05 13:04] LABS: AUTOMATED NEUTROPHIL # 15.5 TH/MM3 (1.8-7.7); BASOPHIL # 0.1 TH/MM3 (0-0.2); BASOPHIL % 0.3 % (0.0-2.0); EOSINOPHIL % 0.2 % (0.0-4.0); HEMATOCRIT 34.2 % (39.0-51.0); LYMPH % 3.7 % (9.0-44.0); LYMPHOCYTE # 0.7 TH/MM3 (1.0-4.8); MEAN CELL VOLUME 98.1 FL (80.0-100.0); MEAN CORPUSCULAR HEMOGLOBIN 29.7 PG (27.0-34.0); MEAN CORPUSCULAR HGB CONC 30.3 % (32.0-36.0); MONO % 10.9 % (0.0-8.0); NEUT % 84.9 % (16.0-70.0); PLATELET COUNT 393 TH/MM3 (150-450); RED BLOOD COUNT 3.48 MIL/MM3 (4.50-5.90); RED CELL DISTRIBUTION WIDTH 19.7 % (11.6-17.2); WHITE BLOOD COUNT 18.3 TH/MM3 (4.0-11.0)
[2017-08-05 13:08] LABS: HEMO FLAGS AUTO DIFF
[2017-08-05] MEDS: SODIUM HYPOCHLORITE 0.125% 500 ML BTL TOPICAL SCH (13:48)
[2017-08-05 14:02] LABS: SCAN/DIFF AUTO DIFF CONFIRMED
[2017-08-05 14:53] LABS: ANION GAP 10 MEQ/L (5-15); AST (GOT) 19 U/L (15-37); BICARBONATE 25.6 MEQ/L (21.0-32.0); BLOOD UREA NITROGEN 12 MG/DL (7-18); CHLORIDE 101 MEQ/L (98-107); GLOMERULAR FILTRATION RATE 129 ML/MIN (>89); POTASSIUM 3.8 MEQ/L (3.5-5.1); SODIUM (NA) 137 MEQ/L (136-145)
[2017-08-05 14:56] LABS: ALKALINE PHOSPHATASE 235 U/L (45-117); ALT (GPT) 22 U/L (12-78); TOTAL BILIRUBIN ADULT 1.3 MG/DL (0.2-1.0)
--- NOTE | 2017-08-05 16:20 | HHI.PR ---
Subjective Remarks Still struggling with intake. Calorie count 4279-4071 deepthi without home foods. an dpt have finally agreed to PEG tube. Pt will likely not survive in NH without some means to give more nutrition. is agreeable to have me decrease his narcotics as well. WBC sl up today. Has indwelling stent in L ureter. Prior Pseudomonas UTI. Cefepime stopped at 10 days on 07/28. Preliminary shows Pseudomonas UTI. Cefepime restarted yesterday. Also has new LLL infiltrate in lung Objective Vital Signs Date Time Temp Pulse Resp B/P (MAP) Pulse Ox O2 Delivery O2 Flow Rate FiO2 08/05/17 12:06 98.6 99 16 140/71 (94) 96 08/05/17 08:06 98.4 101 20 134/73 (93) 97 08/05/17 07:46 95 08/05/17 04:00 98.3 111 20 127/73 (91) 97 08/05/17 00:00 97.5 108 18 138/78 (98) 97 08/04/17 20:00 97.9 96 18 123/68 (86) 94 08/04/17 19:45 Room Air I/O 08/04/17 08/04/17 08/04/17 08/05/17 08/05/17 08/05/17 07:00 15:00 23:00 07:00 15:00 23:00 Intake Total 360 ml 240 ml 1100 ml Output Total 725 ml 400 ml Balance -365 ml -160 ml 1100 ml Intake Oral 360 ml 240 ml IV Total 1100 ml Output Urine Total 725 ml 400 ml # Bowel Movements 0 0 Result Diagram: 08/05/17 1155 08/05/17 1418 Objective Remarks VS-S Gen: severe cachexia Abd: Soft. Flat. Wound healed. Stoma working. . Assessment and Plan Assessment and Plan Decubitus Poor nutrition. Severe deconditioning Agrees to PEG placement today. Needs nutrition MARY. Cefepime for Pseudomonas Needs aggressive PT and Nutrition to fully heal decubitus and recover Continue PO vancomycin Should have PT everyday including weekends. Needs position changes for Pulmonary toilet Started Albuterol for lungs. Luca Geiger MD Aug 05, 2017 16:20
--- NOTE | 2017-08-05 18:27 | HHI.PR ---
Subjective Remarks Deferred entry - patient seen at 11:40 am Patient states vomited x2 and is nauseous denies abdominal pain new LLL infiltrate wbc trending up Objective Vitals Vital Signs Date Time Temp Pulse Resp B/P (MAP) Pulse Ox O2 Delivery O2 Flow Rate FiO2 08/05/17 12:06 98.6 99 16 140/71 (94) 96 08/05/17 08:06 98.4 101 20 134/73 (93) 97 08/05/17 07:46 95 08/05/17 07:00 97 Room Air 08/05/17 04:00 98.3 111 20 127/73 (91) 97 08/05/17 00:00 97.5 108 18 138/78 (98) 97 08/04/17 20:00 97.9 96 18 123/68 (86) 94 08/04/17 19:45 Room Air I/O 08/04/17 08/04/17 08/04/17 08/05/17 08/05/17 08/05/17 07:00 15:00 23:00 07:00 15:00 23:00 Intake Total 360 ml 240 ml 1100 ml 2100 ml Output Total 725 ml 400 ml Balance -365 ml -160 ml 1100 ml 2100 ml Intake Oral 360 ml 240 ml IV Total 1100 ml 2100 ml Output Urine Total 725 ml 400 ml # Bowel Movements 0 0 Result Diagram: 08/05/17 1155 08/05/17 1418 Imaging Last Impressions Chest X-Ray 08/04/17 0000 Signed Impressions: Service Date/Time: July 14:25 - CONCLUSION: Infiltrate within left lower lobe. Right lung is now clear. Pierce Ospina Jr., MD Cholangiopancreatography MRI 07/15/17 0000 Signed Impressions: Service Date/Time: Saturday, July 15, 2017 15:02 - CONCLUSION: 1. Ascites with small bilateral pleural effusions. 2. Small contracted gallbladder without definite stones 3. No definite common duct stone. 4. Pancreas obscured by motion. Alfredo Lora MD FACR Liver Ultrasound 07/14/17 0000 Signed Impressions: Service Date/Time: July 16:45 - CONCLUSION: 1. Small volume ascites. 2. Bilateral pleural effusions. 3. Sludge within the gallbladder with a top normal thickness of the gallbladder wall. No sonographic evidence to suggest acute cholecystitis. Pierce Ospina Jr., MD Abdomen X-Ray 07/06/17 0000 Signed Impressions: Service Date/Time: Thursday, July 06, 2017 13:44 - CONCLUSION: 1. Gaseous distention of multiple bowel loops. This has slightly improved. 2. Left-sided nephroureteral stent in good position. Sarwat Suarez MD Upper Extremity Ultrasound 06/23/17 Signed Impressions: Service Date/Time: June 20:03 - CONCLUSION: Noncompressibility right cephalic vein and left basilic vein consistent with venous thrombosis Trav Hsieh MD Lower Extremity Ultrasound 06/23/17 Signed Impressions: Service Date/Time: June 20:16 - CONCLUSION: Normal examination. No evidence DVT Trav Hsieh MD Chest CT 06/20/17 Signed Impressions: Service Date/Time: Tuesday, June 20, 2017 07:42 - CONCLUSION: 1. Bilateral effusions and consolidative changes in both lung bases. Bao Lora MD Abdomen/Pelvis CT 06/20/17 0000 Signed Impressions: Service Date/Time: Tuesday, June 20, 2017 07:39 - CONCLUSION: 1. Dilated stomach and multiple dilated loops of small bowel, likely ileus. 2. No definite gastric volvulus. 3. Fat containing right inguinal hernia which also contains small portion of the urinary bladder and minimal fluid. 4. Left-sided nephroureteral stent in good position. 5. Bibasilar consolidation and small pleural effusions. Sarwat Suarez MD Objective Remarks GENERAL: NAD, A&Ox3 HEAD: Normocephalic. NECK: Supple, trachea midline. No lymphadenopathy. EYES: No scleral icterus. No injection or drainage. CARDIOVASCULAR: Regular rate and rhythm without murmurs, gallops, or rubs. RESPIRATORY: Breath sounds equal bilaterally. No accessory muscle use. GASTROINTESTINAL: Abdomen soft, non-tender, nondistended. MUSCULOSKELETAL: No cyanosis, or edema. Sacral ulcer has wound VAC in place. SKIN: Warm and dry. NEURO: No focal neurological deficitis. PSYCH: Flattened affect. Medications and IVs Current Medications Medications (Trade) Dose Ordered Sig/[place] Route Start Time Stop Time Status Last Admin (Zofran Inj) 4 mg Q4H PRN IV PUSH 06/17/17 22:00 08/04/17 21:21 Miscellaneous Information Patient in critical care unit? Ass... Q361D .XX 06/18/17 05:45 06/18/17 05:45 (Albuterol Neb) 2.5 mg Q2HR NEB PRN NEB 06/29/17 14:30 07/05/17 08:44 (Cardizem) 60 mg Q6HR PO 07/05/17 12:45 08/05/17 10:58 (Santyl Oint) 1 applic DAILY TOPICAL 07/07/17 09:00 07/31/17 08:50 (Symbicort 160-4.5 Inh) 1 puff Q12HR INH 07/07/17 09:00 08/05/17 10:58 (Lovenox Inj) 40 mg Q24H SQ 07/09/17 09:00 08/04/17 08:52 (Lomotil Tab) 1 tab Q6H PRN PO 07/10/17 11:00 (Protonix) 40 mg DAILY PO 07/11/17 09:00 08/05/17 10:58 (NovoLOG SUPPLEMENTAL SCALE) 1 ACHS SQ 07/11/17 17:00 07/29/17 12:36 (D50w (Vial) Inj) 50 ml UNSCH PRN IV PUSH 07/11/17 15:00 (Glucagon Inj) 1 mg UNSCH PRN OTHER 07/11/17 15:00 Patient Own Medication PT OWN MED: VIIB... HS PO 07/15/17 21:00 08/04/17 21:22 (Dakin'S 0.125% Soln) 500 ml MoWeFr TOPICAL 07/20/17 13:00 08/05/17 13:48 (Flomax) 0.4 mg HS PO 07/23/17 21:00 08/04/17 21:22 (Megace Liq) 400 mg DAILY PO 08/04/17 09:00 08/05/17 11:25 (Percocet 5-325 Mg) 1 tab Q6H PRN PO 08/04/17 14:30 08/05/17 01:22 (Percocet 7.5-325 Mg) 1 tab Q6H PRN PO 08/04/17 14:30 Cefepime HCl 2000 mg/Sodium Chloride 100 ml @ 200 mls/hr Q12H IV 08/04/17 15:00 08/05/17 15:28 (VANCOMYCIN for oral use only) 250 mg QID PO 08/04/17 18:00 08/26/17 13:01 08/05/17 13:47 Sodium Chloride 1,000 ml @ 125 mls/hr Q8H IV 08/04/17 16:45 08/05/17 03:01 (Albuterol Neb) 1.25 mg Q6HR NEB NEB 08/05/17 16:15 (Lanoxin) 0.125 mg DAILY PO 08/06/17 09:00 Date of Insertion: Jun 18, 2017 Side: Left Location: Internal A/P Problem List: (1) Nausea & vomiting ICD Code: R11.2 - Nausea with vomiting, unspecified (2) Tachycardia ICD Code: R00.0 - Tachycardia, unspecified (3) Hypertension ICD Code: I10 - Essential (primary) hypertension (4) Leukocytosis ICD Code: D72.829 - Elevated white blood cell count, unspecified (5) Acute kidney injury ICD Code: N17.9 - Acute kidney failure, unspecified (6) Cancer of rectum ICD Code: C20 - Malignant neoplasm of rectum (7) 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 Prolonged time on vent, patient now has decubitus ulcer. Status post wound VAC placement. Acute respiratory failure/ Pseudomonal pneumonia/ Pseudomonas bacteremia/ COPD with exacerbation Patient extubated 07/06/17, on room air. ID consult appreciated. - Continue bronchodilators, inhaled steroids and mucolytic's. - Continue incentive spirometry. - d/c prednisone 07/31. - continue PT/ OT. - s/p IV vancomycin and cefepime per infectious disease A. fib with RVR - Follow on telemetry. - Continue by mouth Cardizem and digoxin. - Continue Lovenox. - Continue diuresis. - 08/02 Heart rate controlled. Cardiology consulted and following. Status post left colectomy/ Colorectal cancer/ Ileus S/p diverting ileostomy, wedge resection of liver metastases and resection of the left ureter. - continue Alvimopam 12mg BID for Ileus. - Continue Han catheter. - Continue diuretics. - follow up with surgery. - PT/ OT. - 08/03 dietitian recommends meals to be set up for this patient. I will start the patient on Megace as an appetite stimulant. Nutrition support at this time is not indicated given the patient is eating more than 50% of the lower end calorie/PROM needs. - 08/[address] Tran - patient agrees to PEG tube. C. difficile enteritis - Continue by mouth vancomycin per ID. - Diarrhea has resolved and patient is having normal bowel movements. 08/05 Continue PO Vancomycin for a total of 14 days. Sacral ulcer Plastic surgery consulted. Cleared for discharge. - Continue wound care. - pain control. - follow up with colorectal surgery. Left upper extremity thrombosis Asymptomatic. - continue prophylactic Lovenox. Follow up with hematology. Sepsis Patient tachycardic and with worsening leukocytosis. Secondary to Pseudomonas UTI, H With a left lower lobe infiltrate seen on chest x-ray. Continue IV fluids Leukocytosis - Patient with WBC increased to 15 k. Will check urinalysis and cxr. ? new sepsis. Fu CBC w diff. Consider Id consult. Patient has been afebrile. - Start IV Cefepime. Consider infectious disease reconsult. - 08/05 urine positive for Pseudomonas UTI. Blood culture positive for Pseudomonas as well. Continue IV cefepime. I will add IV vancomycin given that there is a new left lower lobe infiltrate. - Cc with differential trending up from 15 K to 18.3 k. LLL infiltrate/HCAP 08/05 Chest x-ray showed a left lower lobe infiltrate. Patient also with worsening leukocytosis but afebrile. I will start the patient on IV vancomycin and continue IV cefepime. Reconsult infectious disease given Pseudomonas bacteremia. Severe protein calorie malnutrition. Patient with a BMI of 19.3 and and albumin of 1.9. Dietitian following. The patient not getting enough nutrition by mouth. Dietitian recommended to feedings with Jevity 1.5 at 80 mL's per hour 12 hours from 7 PM to 7 AM. TPN recommendations also placed. Continue Ensure 3 times a day and Alessandro twice a day for wound healing. Continue Megace. DVT prophylaxis Lovenox Discharge Planning Patient not cleared medically -patient for PEG tube placement, now with sepsis, H, Pseudomonas UTI and Pseudomonas bacteremia. Chad Marrero MD Aug 05, 2017 18:27
[2017-08-05] MEDS ORDERED: VANCOMYCIN INJ 1,000 MG in SODIUM CHLOR 0.9% 250 ML INJ 250 ML IV SCH (18:30)
[2017-08-05] MEDS ORDERED: Vancomycin Consult Pharmacy 1 EA OTHER SCH (18:30)
--- NOTE | 2017-08-05 18:48 | GIPROC ---
[facility] [address] [facility]. [facility], [address] EGD PROCEDURE REPORT EXAM DATE: 08/05/2017 PATIENT NAME: Luca Armendariz MR #: [id number] BIRTHDATE: 1950 ATTENDING: Yanni Busch MD ORDER #: [id number] WEB SITE MANAGER: Adams Mane and Awilda Araiza STATUS: inpatient INDICATIONS: The patient is a 67 yr old male here for an EGD due to malnutrition, poor oral intake PROCEDURE PERFORMED: EGD, diagnostic MEDICATIONS: None and Per Anesthesia. TOPICAL ANESTHETIC: none CONSENT: The patient understands the risks and benefits of the procedure and understands that these risks include, but are not limited to: sedation, allergic reaction, infection, perforation and/or bleeding. Alternative means of evaluation and treatment include, among others: physical exam, x-rays, and/or surgical intervention. The patient elects to proceed with this endoscopic procedure. medical equipment was checked for proper function. Hand hygiene and appropriate measures for infection prevention was taken. After the risks, benefits and alternatives of the procedure were thoroughly explained, Informed consent was verified, confirmed and timeout was successfully executed by the treatment team. The patient was anesthetized with topical anesthesia and the Pentax [id number] endoscope was introduced through the mouth and advanced to the second portion of the duodenum. Retroflexed views revealed a hiatal hernia The gastroscope was then slowly withdrawn and removed. Very dilated stomach, large amount of fecaloid material suctioned-950 cc after ngt inserted cannot palce peg tube now. ADVERSE EVENTS: There were no complications. IMPRESSIONS: 1. Very dilated stomach, large amount of fecaloid material suctioned-950 cc after ngt inserted cannot palce peg tube now 2. Retroflexed views revealed a hiatal hernia RECOMMENDATIONS: 1. Anti-reflux regimen 2. Ngt to suction picc line start TPN nutritional consult consider g/j tube once ileus resolved PATIENT CONDITION: stable DISPOSITION: Inpatient REPEAT EXAM: Return as needed for EGD Yanni Busch MD eSigned: Yanni Busch MD 08/05/2017 6:47 PM cc:
[2017-08-05] MEDS: oxyCODONE/ACETAMINOPHEN 7.5 MG/325 MG TAB PO PRN (19:20)
[2017-08-05] MEDS: VIIBRYD 40 MG PO SCH (20:18)
[2017-08-05] MEDS: TAMSULOSIN HCL 0.4 MG CAP PO SCH (20:19)
[2017-08-05] MEDS: VANCOMYCIN INJ 850 MG in SODIUM CHLOR 0.9% 250 ML INJ 250 ML IV SCH (20:52)
[2017-08-06] VITALS (9 sets, daily range): BP systolic 105–116; BP diastolic 56–60; PULSE 91–103; RESP 16–20; TEMP 97.6–98.3; O2SAT 90–96
[2017-08-06] MEDS: DILTIAZEM HCL 60 MG TAB PO SCH ×4 (01:11→18:56)
[2017-08-06] MEDS: CEFEPIME INJ 2,000 MG in SODIUM CHLORIDE 0.9% INJ 100 ML IV SCH ×2 (03:40→15:28)
[2017-08-06] MEDS: RESP: ALBUTEROL 1.25 MG/3 ML NEB (SCH) NEB ×4 (04:19→20:54)
[2017-08-06] MEDS: oxyCODONE/ACETAMINOPHEN 7.5 MG/325 MG TAB PO PRN ×2 (05:48→22:15)
[2017-08-06] MEDS: SODIUM CHLOR 0.9% 1000 ML INJ 1,000 ML IV SCH (06:45)
[2017-08-06] MEDS: INSULIN ASPART SUPPLEMENTAL SCALE SQ SCH ×4 (08:00→21:00)
[2017-08-06] MEDS: COLLAGENASE OINT 30 GM TUBE TOPICAL SCH (09:00)
[2017-08-06] MEDS: VANCOMYCIN INJ 850 MG in SODIUM CHLOR 0.9% 250 ML INJ 250 ML IV SCH ×2 (09:08→21:37)
[2017-08-06] MEDS: ENOXAPARIN SODIUM 40 MG/0.4 ML SYRINGE SQ SCH (09:13)
[2017-08-06] MEDS: DIGOXIN 0.125 MG TAB PO SCH (09:13)
[2017-08-06] MEDS: VANCOMYCIN 500 MG VIAL (FOR ORAL USE ONLY) PO SCH ×4 (09:13→22:13)
[2017-08-06] MEDS: PANTOPRAZOLE SOD 40 MG DELAYED RELEASE TAB PO SCH (09:13)
[2017-08-06] MEDS: BUDESONIDE-FORMOTEROL 160/4.5 MCG INHALER INH SCH ×2 (09:14→21:40)
[2017-08-06] MEDS: MEGESTROL ACETATE SUSP 400 MG/10 ML CUP PO SCH (10:11)
[2017-08-06] MEDS: oxyCODONE/ACETAMINOPHEN 5 MG/325 MG TAB PO PRN (10:11)
[2017-08-06 12:18] LABS: AUTOMATED NEUTROPHIL # 18.6 TH/MM3 (1.8-7.7); BASOPHIL # 0.1 TH/MM3 (0-0.2); BASOPHIL % 0.4 % (0.0-2.0); EOSINOPHIL % 0.1 % (0.0-4.0); HEMATOCRIT 34.1 % (39.0-51.0); LYMPH % 2.7 % (9.0-44.0); LYMPHOCYTE # 0.6 TH/MM3 (1.0-4.8); MEAN CELL VOLUME 98.8 FL (80.0-100.0); MEAN CORPUSCULAR HEMOGLOBIN 29.4 PG (27.0-34.0); MONO % 9.3 % (0.0-8.0); NEUT % 87.5 % (16.0-70.0); PLATELET COUNT 336 TH/MM3 (150-450); RED BLOOD COUNT 3.45 MIL/MM3 (4.50-5.90); RED CELL DISTRIBUTION WIDTH 20.4 % (11.6-17.2); WHITE BLOOD COUNT 21.3 TH/MM3 (4.0-11.0)
[2017-08-06 12:19] LABS: HEMO FLAGS AUTO DIFF; MEAN CORPUSCULAR HGB CONC 29.7 % (32.0-36.0)
[2017-08-06 12:41] LABS: ALKALINE PHOSPHATASE 220 U/L (45-117); ALT (GPT) 24 U/L (12-78); ANION GAP 12 MEQ/L (5-15); AST (GOT) 26 U/L (15-37); BLOOD UREA NITROGEN 10 MG/DL (7-18); CHLORIDE 109 MEQ/L (98-107); GLOMERULAR FILTRATION RATE 151 ML/MIN (>89); POTASSIUM 3.9 MEQ/L (3.5-5.1); SODIUM (NA) 135 MEQ/L (136-145); TOTAL BILIRUBIN ADULT 1.3 MG/DL (0.2-1.0)
[2017-08-06 12:53] LABS: PLATELET ESTIMATE SMEAR NORMAL (NORMAL); PLATELET MORPHOLOGY NORMAL (NORMAL); SCAN/DIFF AUTO DIFF CONFIRMED
--- NOTE | 2017-08-06 12:59 | HHI.GIFU ---
Subjective Remarks anxious requesting NGT out, wants to eat wants to go home, but wants to be well also in rm. (Loraine Ruano) Objective Vitals I&O Vital Signs Date Time Temp Pulse Resp B/P (MAP) Pulse Ox O2 Delivery O2 Flow Rate FiO2 08/06/17 10:09 92 Nasal Cannula 2.00 08/06/17 08:06 98.2 91 19 115/58 (77) 92 08/06/17 04:22 95 Nasal Cannula 2.00 08/06/17 04:00 97.9 93 16 114/58 (76) 94 08/06/17 00:00 98.3 95 16 105/56 (72) 94 08/05/17 20:25 Room Air 08/05/17 20:00 98.1 98 16 120/62 (81) 92 08/05/17 16:06 97.7 76 16 117/63 (81) 97 I/O 08/05/17 08/05/17 08/05/17 08/06/17 08/06/17 08/06/17 07:00 15:00 23:00 07:00 15:00 23:00 Intake Total 1100 ml 2458.8 ml 1100 ml Output Total 200 ml 900 ml Balance 1100 ml 2258.8 ml 200 ml Intake Oral 0 ml IV Total 1100 ml 2358.8 ml 1100 ml Other 100 ml Output Urine Total 200 ml 900 ml # Bowel Movements 0 Laboratory Laboratory Tests Test 08/05/17 14:18 08/06/17 11:15 08/06/17 11:55 Blood Urea Nitrogen 12 10 Creatinine 0.62 0.54 Random Glucose 83 71 Total Protein 5.9 5.6 Albumin 1.9 1.0 Calcium Level 8.1 7.6 Alkaline Phosphatase 235 220 Aspartate Amino Transf (AST/SGOT) 19 26 Alanine Aminotransferase (ALT/SGPT) 22 24 Total Bilirubin 1.3 1.3 Sodium Level 137 135 Potassium Level 3.8 3.9 Chloride Level 101 109 Carbon Dioxide Level 25.6 14.0 Anion Gap 10 12 Estimat Glomerular Filtration Rate 129 151 White Blood Count 21.3 Red Blood Count 3.45 Hemoglobin 10.1 Hematocrit 34.1 Mean Corpuscular Volume 98.8 Mean Corpuscular Hemoglobin 29.4 Mean Corpuscular Hemoglobin Concent 29.7 Red Cell Distribution Width 20.4 Platelet Count 336 Mean Platelet Volume 7.4 Neutrophils (%) (Auto) 87.5 Lymphocytes (%) (Auto) 2.7 Monocytes (%) (Auto) 9.3 Eosinophils (%) (Auto) 0.1 Basophils (%) (Auto) 0.4 Neutrophils # (Auto) 18.6 Lymphocytes # (Auto) 0.6 Monocytes # (Auto) 2.0 Eosinophils # (Auto) 0.0 Basophils # (Auto) 0.1 CBC Comment AUTO DIFF Date/Time Source Procedure Growth Status 07/23/17 07:11 Blood Peripheral Aerobic Blood Culture - Final NO GROWTH IN 5 DAYS Complete 07/23/17 07:11 Blood Peripheral Anaerobic Blood Culture - Final NO GROWTH IN 5 DAYS Complete 07/02/17 17:00 Sputum Endotracheal Gram Stain - Final Complete 07/02/17 17:00 Sputum Culture - Final Pseudomonas Aeruginosa Complete 08/04/17 16:00 Urine Clean Catch Urine Culture - Preliminary Pseudomonas Aeruginosa Resulted Imaging Last Impressions Chest X-Ray 08/04/17 0000 Signed Impressions: Service Date/Time: July 14:25 - CONCLUSION: Infiltrate within left lower lobe. Right lung is now clear. Pierce Ospina Jr., MD Cholangiopancreatography MRI 07/15/17 0000 Signed Impressions: Service Date/Time: Saturday, July 15, 2017 15:02 - CONCLUSION: 1. Ascites with small bilateral pleural effusions. 2. Small contracted gallbladder without definite stones 3. No definite common duct stone. 4. Pancreas obscured by motion. Alfredo Lora MD FACR Liver Ultrasound 07/14/17 0000 Signed Impressions: Service Date/Time: July 16:45 - CONCLUSION: 1. Small volume ascites. 2. Bilateral pleural effusions. 3. Sludge within the gallbladder with a top normal thickness of the gallbladder wall. No sonographic evidence to suggest acute cholecystitis. Pierce Ospina Jr., MD Abdomen X-Ray 07/06/17 0000 Signed Impressions: Service Date/Time: Thursday, July 06, 2017 13:44 - CONCLUSION: 1. Gaseous distention of multiple bowel loops. This has slightly improved. 2. Left-sided nephroureteral stent in good position. Sarwat Suarez MD Upper Extremity Ultrasound 06/23/17 0000 Signed Impressions: Service Date/Time: June 20:03 - CONCLUSION: Noncompressibility right cephalic vein and left basilic vein consistent with venous thrombosis Trav Hsieh MD Lower Extremity Ultrasound 06/23/17 0000 Signed Impressions: Service Date/Time: , June 23, 2017 20:16 - CONCLUSION: Normal examination. No evidence DVT Trav Hsieh MD Chest CT 06/20/17 0000 Signed Impressions: Service Date/Time: Tuesday, June 20, 2017 07:42 - CONCLUSION: 1. Bilateral effusions and consolidative changes in both lung bases. Bao Lora MD Abdomen/Pelvis CT 06/20/17 0000 Signed Impressions: Service Date/Time: Tuesday, June 20, 2017 07:39 - CONCLUSION: 1. Dilated stomach and multiple dilated loops of small bowel, likely ileus. 2. No definite gastric volvulus. 3. Fat containing right inguinal hernia which also contains small portion of the urinary bladder and minimal fluid. 4. Left-sided nephroureteral stent in good position. 5. Bibasilar consolidation and small pleural effusions. Sarwat Suarez MD Physical Exam GEN: emaciated, mucous membranes dry HEENT: Normocephalic; atraumatic; no jaundice. CHEST: CTA CARDIAC: irr HR ABDOMEN: Flat, nontender, bowel sounds active upper quadrants, soft lower quadrants EXTREMITIES: No edema generalized weakness DRUG ROOM OPERATOR: Awake, anxious generalized weakness (Loraine Ruano) Assessment and Plan Plan ASSESSMENT: - malnutrition, poor PO intake - GI reconsulted for PEG tube placement which pt now agrees to. - Reconsulted for Elevated LFTs. We have evaluated him in the past for elevated LFTs. (Peak on 06/25- T. Bili 1.7, AST 1300, ALT 386, ALK Phosph 239) Previous workup- Liver US (06/24/17)---> Small volume ascites. Small right effusion. ASMA negative. Alpha 1 Antitrypsin 221. Hepatitis panel negative, LOIS neg, AMA < 20.0, Ceruloplasmin 74. AFP 3.3, Ferritin 5508. Iron saturation > 100%. He received one unit of blood on 06/18. Hfe gene negative C282Y, H63D undetected. It was thought that his previous elevation was multifactorial- related to infection, TPN, abx, and hypotension. We were consulted for worsening hyperbilirubinemia. Steroids discontinued on 06/13 due to possible cholestasis. Liver US (06/13/17) --->1. small volume ascites 2. bilateral pleural effusions 3. sludge within the gallbladder with a top normal thickness of the gallbladder wall. No sonographic evidence to suggest acute cholecystitis. MRCP 07/15/17-- 1. Ascites with small bilateral pleural effusions. 2. Small contracted gallbladder without definite stones 3. No definite common duct stone. 4. Pancreas obscured by motion. Patient denies abdominal pain. LFTs are improving. T. Bilirubin 6.4, AST 32, ALT 61, Alk Phosph 621. - Metastatic colon cancer. S/P lower anterior resection/coloanal anastomosis, resection and reanastomosis of the left ureter with ureteral anastomosis and double-J stent placement, wedge resection of hepatic metastasis, mobilization of the splenic flexure, and diverting closed loop ileostomy with Dr. Geiger and Dr. Pelayo on 05/26/17. Dr. Noel is his oncologist, but he has not seen him since his surgery - Sacral decubitus ulcer. S/P Excision sacral decubitus ulcer including skin, sq tissues, bone and muscle, placement of wound vac. (07/17/17) - Severe sepsis, CDifficile. S/P debridement of sacral decubitus ulcer. oral vanc, cefepime - Respiratory failure, small pleural effusion. Currently on RA - NEIL. Improved - Anemia. HH stable - Atrial fibrillation with RVR. Now sinus rhythm. Pt on Diltiazem. - Thrombocytopenia. improved Probable ileus, resolving slowly -Attempt PEG for nutritional 08/05, dilated stomach, 950 cc removed per NGT, No PEG for now. Hiatal Hernia seen PLAN: - Anti-reflux Program - G/J tube once ileus resolved. Patient requesting this to be done as soon as possible - Picc Line -TPN - Nutritional consult - on abx - further recs to follow, Return for EGD as needed. This pt seen by myself and DR Busch and this note is written on her behalf (Loraine Ruano) Loraine Ruano Aug 06, 2017 12:59 Yanni Busch MD Aug 06, 2017 18:10
--- NOTE | 2017-08-06 15:00 | HHI.PR ---
Subjective Remarks C diff enteritis, resolved, pt debilitated confused, denies pain Objective Vital Signs Date Time Temp Pulse Resp B/P (MAP) Pulse Ox O2 Delivery O2 Flow Rate FiO2 08/06/17 12:06 98.0 95 18 111/60 (77) 94 08/06/17 10:09 92 Nasal Cannula 2.00 08/06/17 08:06 98.2 91 19 115/58 (77) 92 08/06/17 04:22 95 Nasal Cannula 2.00 08/06/17 04:00 97.9 93 16 114/58 (76) 94 08/06/17 00:00 98.3 95 16 105/56 (72) 94 08/05/17 20:25 Room Air 08/05/17 20:00 98.1 98 16 120/62 (81) 92 08/05/17 16:06 97.7 76 16 117/63 (81) 97 I/O 08/05/17 08/05/17 08/05/17 08/06/17 08/06/17 08/06/17 07:00 15:00 23:00 07:00 15:00 23:00 Intake Total 1100 ml 2458.8 ml 1100 ml Output Total 200 ml 900 ml Balance 1100 ml 2258.8 ml 200 ml Intake Oral 0 ml IV Total 1100 ml 2358.8 ml 1100 ml Other 100 ml Output Urine Total 200 ml 900 ml # Bowel Movements 0 Result Diagram: 08/06/17 1155 08/06/17 1115 Objective Remarks Cachectic Abdomen soft, nondistended wound healed Stoma pink, prolapsed Assessment and Plan Assessment and Plan Gtube pending Unable to place PICC, PPN to start per Karin Haney MD Aug 06, 2017 15:00
--- NOTE | 2017-08-06 15:53 | HHI.PR ---
Subjective Remarks As per RN report - PEG tube not placed due to ileus. Patient denies cp/sob. Denies fevers/chills. Denies nausea or vomiting. wbc trending up and worsening no diarrhea reported. Objective Vitals Vital Signs Date Time Temp Pulse Resp B/P (MAP) Pulse Ox O2 Delivery O2 Flow Rate FiO2 08/06/17 12:06 98.0 95 18 111/60 (77) 94 08/06/17 10:09 92 Nasal Cannula 2.00 08/06/17 08:06 98.2 91 19 115/58 (77) 92 08/06/17 04:22 95 Nasal Cannula 2.00 08/06/17 04:00 97.9 93 16 114/58 (76) 94 08/06/17 00:00 98.3 95 16 105/56 (72) 94 08/05/17 20:25 Room Air 08/05/17 20:00 98.1 98 16 120/62 (81) 92 08/05/17 16:06 97.7 76 16 117/63 (81) 97 I/O 08/05/17 08/05/17 08/05/17 08/06/17 08/06/17 08/06/17 07:00 15:00 23:00 07:00 15:00 23:00 Intake Total 1100 ml 2458.8 ml 1100 ml Output Total 200 ml 900 ml Balance 1100 ml 2258.8 ml 200 ml Intake Oral 0 ml IV Total 1100 ml 2358.8 ml 1100 ml Other 100 ml Output Urine Total 200 ml 900 ml # Bowel Movements 0 Result Diagram: 08/06/17 1155 08/06/17 1115 Imaging Last Impressions Chest X-Ray 08/04/17 0000 Signed Impressions: Service Date/Time: July 14:25 - CONCLUSION: Infiltrate within left lower lobe. Right lung is now clear. Pierce Ospina Jr., MD Cholangiopancreatography MRI 07/15/17 0000 Signed Impressions: Service Date/Time: Saturday, July 15, 2017 15:02 - CONCLUSION: 1. Ascites with small bilateral pleural effusions. 2. Small contracted gallbladder without definite stones 3. No definite common duct stone. 4. Pancreas obscured by motion. Alfredo Lora MD FACR Liver Ultrasound 07/14/17 0000 Signed Impressions: Service Date/Time: July 16:45 - CONCLUSION: 1. Small volume ascites. 2. Bilateral pleural effusions. 3. Sludge within the gallbladder with a top normal thickness of the gallbladder wall. No sonographic evidence to suggest acute cholecystitis. Pierce Ospina Jr., MD Abdomen X-Ray 07/06/17 Signed Impressions: Service Date/Time: Thursday, July 06, 2017 13:44 - CONCLUSION: 1. Gaseous distention of multiple bowel loops. This has slightly improved. 2. Left-sided nephroureteral stent in good position. Sarwat Suarez MD Upper Extremity Ultrasound 06/23/17 Signed Impressions: Service Date/Time: June 20:03 - CONCLUSION: Noncompressibility right cephalic vein and left basilic vein consistent with venous thrombosis Trav Hsieh MD Lower Extremity Ultrasound 06/23/17 Signed Impressions: Service Date/Time: June 20:16 - CONCLUSION: Normal examination. No evidence DVT Trav Hsieh MD Chest CT 06/20/17 Signed Impressions: Service Date/Time: Tuesday, June 20, 2017 07:42 - CONCLUSION: 1. Bilateral effusions and consolidative changes in both lung bases. Bao Lora MD Abdomen/Pelvis CT 06/20/17 Signed Impressions: Service Date/Time: Tuesday, June 20, 2017 07:39 - CONCLUSION: 1. Dilated stomach and multiple dilated loops of small bowel, likely ileus. 2. No definite gastric volvulus. 3. Fat containing right inguinal hernia which also contains small portion of the urinary bladder and minimal fluid. 4. Left-sided nephroureteral stent in good position. 5. Bibasilar consolidation and small pleural effusions. Sarwat Suarez MD Objective Remarks GENERAL: NAD, A&Ox3 HEAD: Normocephalic. NECK: Supple, trachea midline. No lymphadenopathy. EYES: No scleral icterus. No injection or drainage. CARDIOVASCULAR: Regular rate and rhythm without murmurs, gallops, or rubs. RESPIRATORY: Breath sounds equal bilaterally. No accessory muscle use. GASTROINTESTINAL: Abdomen soft, distended, non tender, bowel sounds present but sluggish. MUSCULOSKELETAL: No cyanosis, or edema. Sacral ulcer has wound VAC in place. SKIN: Warm and dry. NEURO: No focal neurological deficitis. PSYCH: Flattened affect. Medications and IVs Current Medications Medications (Trade) Dose Ordered Sig/[place] Route Start Time Stop Time Status Last Admin (Zofran Inj) 4 mg Q4H PRN IV PUSH 06/17/17 22:00 08/04/17 21:21 Miscellaneous Information Patient in critical care unit? Ass... [id number] .XX 06/18/17 05:45 06/18/17 05:45 (Albuterol Neb) 2.5 mg Q2HR NEB PRN NEB 06/29/17 14:30 07/05/17 08:44 (Cardizem) 60 mg Q6HR PO 07/05/17 12:45 08/06/17 12:34 (Santyl Oint) 1 applic DAILY TOPICAL 07/07/17 09:00 07/31/17 08:50 (Symbicort 160-4.5 Inh) 1 puff Q12HR INH 07/07/17 09:00 08/06/17 09:14 (Lovenox Inj) 40 mg Q24H SQ 07/09/17 09:00 08/06/17 09:13 (Lomotil Tab) 1 tab Q6H PRN PO 07/10/17 11:00 (Protonix) 40 mg DAILY PO 07/11/17 09:00 08/06/17 09:13 (NovoLOG SUPPLEMENTAL SCALE) 1 ACHS SQ 07/11/17 17:00 07/29/17 12:36 (D50w (Vial) Inj) 50 ml UNSCH PRN IV PUSH 07/11/17 15:00 (Glucagon Inj) 1 mg UNSCH PRN OTHER 07/11/17 15:00 Patient Own Medication PT OWN MED: VIIB... HS PO 07/15/17 21:00 08/05/17 20:18 (Dakin'S 0.125% Soln) 500 ml MoWeFr TOPICAL 07/20/17 13:00 08/05/17 13:48 (Flomax) 0.4 mg HS PO 07/23/17 21:00 08/05/17 20:19 (Megace Liq) 400 mg DAILY PO 08/04/17 09:00 08/06/17 10:11 (Percocet 5-325 Mg) 1 tab Q6H PRN PO 08/04/17 14:30 08/06/17 10:11 (Percocet 7.5-325 Mg) 1 tab Q6H PRN PO 08/04/17 14:30 08/06/17 05:48 Cefepime HCl 2000 mg/Sodium Chloride 100 ml @ 200 mls/hr Q12H IV 08/04/17 15:00 08/06/17 15:28 (VANCOMYCIN for oral use only) 250 mg QID PO 08/04/17 18:00 08/26/17 13:01 08/06/17 12:34 (Albuterol Neb) 1.25 mg Q6HR NEB NEB 08/05/17 16:15 08/06/17 15:04 (Lanoxin) 0.125 mg DAILY PO 08/06/17 09:00 08/06/17 09:13 Pharmacy Profile Note 0 ml @ 0 mls/hr UNSCH OTHER 08/05/17 18:30 Vancomycin HCl 850 mg/Sodium Chloride 258.5 ml @ 250 mls/hr Q12H IV 08/05/17 20:00 08/06/17 09:08 Miscellaneous Information SPECIFIC LAB TO BE [facility]... ONCE ONCE .XX 08/07/17 07:45 08/07/17 07:46 Metronidazole 100 ml @ 100 mls/hr Q8H IV 08/06/17 15:45 UNV Lactated Ringer's 1,000 ml @ 84 mls/hr [id number] IV 08/06/17 15:45 UNV Date of Insertion: Jun 18, 2017 Side: Left Location: Internal A/P Problem List: (1) Nausea & vomiting ICD Code: R11.2 - Nausea with vomiting, unspecified Status: Acute (2) Tachycardia ICD Code: R00.0 - Tachycardia, unspecified Status: Acute (3) Hypertension ICD Code: I10 - Essential (primary) hypertension Status: Chronic (4) Leukocytosis ICD Code: D72.829 - Elevated white blood cell count, unspecified Status: Acute (5) Acute kidney injury ICD Code: N17.9 - Acute kidney failure, unspecified Status: Resolved (6) Cancer of rectum ICD Code: C20 - Malignant neoplasm of rectum (7) 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 Code: Z93.2 - Ileostomy status Status: Chronic (8) Sepsis ICD Code: A41.9 - Sepsis, unspecified organism Status: Acute (9) Pseudomonas septicemia ICD Code: A41.52 - Sepsis due to Pseudomonas Status: Acute (10) Pseudomonas urinary tract infection ICD Code: N39.0 - Urinary tract infection, site not specified; B96.5 - Pseudomonas (aeruginosa) (mallei) (pseudomallei) as the cause of diseases classified elsewhere Status: Acute (11) Hyperchloremic metabolic acidosis ICD Code: E87.2 - Acidosis Status: Acute Assessment and Plan 67 year-old male admitted with respiratory failure secondary to pneumonia and COPD exacerbation. Prolonged time on vent, patient now has decubitus ulcer. Status post wound VAC placement. Acute respiratory failure/ Pseudomonal pneumonia/ Pseudomonas bacteremia/ COPD with exacerbation Patient extubated 07/06/17, on room air. ID consult appreciated. - Continue bronchodilators, inhaled steroids and mucolytic's. - Continue incentive spirometry. - d/c prednisone 07/31. - continue PT/ OT. - s/p IV vancomycin and cefepime per infectious disease 08/06 new LLL infiltrate. Continue IV Vancomycin and IV Cefepime resumed. Add IV Flagy to cover for possible aspiration. A. fib with RVR - Follow on telemetry. - Continue by mouth Cardizem and digoxin. - Continue Lovenox. - Continue diuresis. - 08/02 Heart rate controlled. Cardiology consulted and following. Status post left colectomy/ Colorectal cancer/ Ileus S/p diverting ileostomy, wedge resection of liver metastases and resection of the left ureter. - continue Alvimopam 12mg BID for Ileus. - Continue Han catheter. - Continue diuretics. - follow up with surgery. - PT/ OT. - 08/03 dietitian recommends meals to be set up for this patient. I will start the patient on Megace as an appetite stimulant. Nutrition support at this time is not indicated given the patient is eating more than 50% of the lower end calorie/PROM needs. - 08/[address] Tran - patient agrees to PEG tube. - 08/[address] PEG for nutritional 08/05, stomach dilated, 950 cc removed per NGT, G/J tube once ileus resolves as per GI. C. difficile enteritis - Continue by mouth vancomycin per ID. - Diarrhea has resolved and patient is having normal bowel movements. 12/1 Continue PO Vancomycin for a total of 14 days. Sacral ulcer Plastic surgery consulted. Cleared for discharge. - Continue wound care. - pain control. - follow up with colorectal surgery. Left upper extremity thrombosis Asymptomatic. - continue prophylactic Lovenox. Follow up with hematology. Sepsis Patient tachycardic and with worsening leukocytosis. Secondary to Pseudomonas UTI, H With a left lower lobe infiltrate seen on chest x-ray. Continue IV fluids 12/2 Continue IV fluids - DC Normal saline and start Lactated Ringer's 2/2 hyperchloremic metabolic acidosis. Patient with worsening leukocytosis. Repeat urine culture positive for pseudomonas. Bloos culture po sitive for pseudomonas. Fu blood cultures and sensitivities. Leukocytosis - Patient with WBC increased to 15 k. Will check urinalysis and cxr. ? new sepsis. Fu CBC w diff. Consider Id consult. Patient has been afebrile. - Start IV Cefepime. Consider infectious disease reconsult. - 08/05 urine positive for Pseudomonas UTI. Blood culture positive for Pseudomonas as well. Continue IV cefepime. I will add IV vancomycin given that there is a new left lower lobe infiltrate. - Cc with differential trending up from 15 K to 18.3 k. / Worsening leukocytosis. Continue IV Vancomycin, IV Cefepime and will add IV Flagyl. ID consulted and awaiting recommendations. LLL infiltrate/HCAP 08/05 Chest x-ray showed a left lower lobe infiltrate. Patient also with worsening leukocytosis but afebrile. I will start the patient on IV vancomycin and continue IV cefepime. Reconsult infectious disease given Pseudomonas bacteremia. 08/06 Given worsening leukocytosis will Add IV Flagyl to cover for possible aspiration pneumonia since patient had episode of vomiting recently. Severe protein calorie malnutrition. Patient with a BMI of 19.3 and and albumin of 1.9. Dietitian following. The patient not getting enough nutrition by mouth. Dietitian recommended to feedings with Jevity 1.5 at 80 mL's per hour 12 hours from 7 PM to 7 AM. TPN recommendations also placed. Continue Ensure 3 times a day and Alessandro twice a day for wound healing. Abdominal Ileus - 08/06 PEG tube could not be placed, NG tube placed with high NG output. Continue low wall suction as per colorectal surgery. Will check KUB and CT abdomen and pelvis with IV and oral contrast. DVT prophylaxis Lovenox Discharge Planning Patient not cleared medically -Pending PEG tube placement, now with sepsis, H, Pseudomonas UTI and Pseudomonas bacteremia. Problem Qualifiers (1) Hypertension: Qualified Codes: I10 - Essential (primary) hypertension Chad Marrero MD Aug 06, 2017 15:53
[2017-08-06] MEDS: LACTATED RINGER'S 1000 ML INJ 1,000 ML IV SCH (16:40)
[2017-08-06] MEDS: metroNIDAZOLE 500 MG INJ 100 ML IV SCH ×2 (16:42→23:21)
--- NOTE | 2017-08-06 18:22 | PD.ID.CON ---
History of Present Illness Service ID Consult Requested By Dr Garcia Reason for Consult PSAE bacteremia Primary Care Physician Non-Staff Diagnoses: History of Present Illness ERRONEOUS REPORT - PLEASE DISREGARD: SEE OTHER NOTE Past Family Social History Allergies: Coded Allergies: codeine (Verified Adverse Reaction, Severe, Nausea/Vomiting, 05/26/17) Physical Exam Vital Signs Vital Signs Date Time Temp Pulse Resp B/P (MAP) Pulse Ox O2 Delivery O2 Flow Rate FiO2 08/06/17 16:06 97.6 103 20 111/59 (76) 96 08/06/17 12:06 98.0 95 18 111/60 (77) 94 08/06/17 10:09 92 Nasal Cannula 2.00 08/06/17 08:06 98.2 91 19 115/58 (77) 92 08/06/17 08:00 Room Air 08/06/17 04:22 95 Nasal Cannula 2.00 08/06/17 04:00 97.9 93 16 114/58 (76) 94 08/06/17 00:00 98.3 95 16 105/56 (72) 94 08/05/17 20:25 Room Air 08/05/17 20:00 98.1 98 16 120/62 (81) 92 Laboratory Laboratory Tests Test 08/06/17 11:15 08/06/17 11:55 Blood Urea Nitrogen 10 Creatinine 0.54 Random Glucose 71 Total Protein 5.6 Albumin 1.0 Calcium Level 7.6 Alkaline Phosphatase 220 Aspartate Amino Transf (AST/SGOT) 26 Alanine Aminotransferase (ALT/SGPT) 24 Total Bilirubin 1.3 Sodium Level 135 Potassium Level 3.9 Chloride Level 109 Carbon Dioxide Level 14.0 Anion Gap 12 Estimat Glomerular Filtration Rate 151 White Blood Count 21.3 Red Blood Count 3.45 Hemoglobin 10.1 Hematocrit 34.1 Mean Corpuscular Volume 98.8 Mean Corpuscular Hemoglobin 29.4 Mean Corpuscular Hemoglobin Concent 29.7 Red Cell Distribution Width 20.4 Platelet Count 336 Mean Platelet Volume 7.4 Neutrophils (%) (Auto) 87.5 Lymphocytes (%) (Auto) 2.7 Monocytes (%) (Auto) 9.3 Eosinophils (%) (Auto) 0.1 Basophils (%) (Auto) 0.4 Neutrophils # (Auto) 18.6 Lymphocytes # (Auto) 0.6 Monocytes # (Auto) 2.0 Eosinophils # (Auto) 0.0 Basophils # (Auto) 0.1 CBC Comment AUTO DIFF Differential Comment AUTO DIFF CONFIRMED Platelet Estimate NORMAL Platelet Morphology Comment NORMAL Date/Time Source Procedure Growth Status 07/23/17 07:11 Blood Peripheral Aerobic Blood Culture - Final NO GROWTH IN 5 DAYS Complete 07/23/17 07:11 Blood Peripheral Anaerobic Blood Culture - Final NO GROWTH IN 5 DAYS Complete 07/02/17 17:00 Sputum Endotracheal Gram Stain - Final Complete 07/02/17 17:00 Sputum Culture - Final Pseudomonas Aeruginosa Complete 08/04/17 16:00 Urine Clean Catch Urine Culture - Preliminary Pseudomonas Aeruginosa Resulted Result Diagram: 08/06/17 1155 08/06/17 1115 Imaging Last Impressions Chest X-Ray 08/04/17 0000 Signed Impressions: Service Date/Time: July 14:25 - CONCLUSION: Infiltrate within left lower lobe. Right lung is now clear. Pierce Ospina Jr., MD Cholangiopancreatography MRI 07/15/17 0000 Signed Impressions: Service Date/Time: Saturday, July 15, 2017 15:02 - CONCLUSION: 1. Ascites with small bilateral pleural effusions. 2. Small contracted gallbladder without definite stones 3. No definite common duct stone. 4. Pancreas obscured by motion. Alfredo Lora MD FACR Liver Ultrasound 07/14/17 0000 Signed Impressions: Service Date/Time: July 16:45 - CONCLUSION: 1. Small volume ascites. 2. Bilateral pleural effusions. 3. Sludge within the gallbladder with a top normal thickness of the gallbladder wall. No sonographic evidence to suggest acute cholecystitis. Pierce Ospina Jr., MD Abdomen X-Ray 07/06/17 0000 Signed Impressions: Service Date/Time: Thursday, July 06, 2017 13:44 - CONCLUSION: 1. Gaseous distention of multiple bowel loops. This has slightly improved. 2. Left-sided nephroureteral stent in good position. Sarwat Suarez MD Upper Extremity Ultrasound 06/23/17 0000 Signed Impressions: Service Date/Time: June 20:03 - CONCLUSION: Noncompressibility right cephalic vein and left basilic vein consistent with venous thrombosis Trav Hsieh MD Lower Extremity Ultrasound 06/23/17 0000 Signed Impressions: Service Date/Time: June 20:16 - CONCLUSION: Normal examination. No evidence DVT Trav Hsieh MD Chest CT 06/20/17 0000 Signed Impressions: Service Date/Time: Tuesday, June 20, 2017 07:42 - CONCLUSION: 1. Bilateral effusions and consolidative changes in both lung bases. Bao Lora MD Abdomen/Pelvis CT 06/20/17 0000 Signed Impressions: Service Date/Time: Tuesday, June 20, 2017 07:39 - CONCLUSION: 1. Dilated stomach and multiple dilated loops of small bowel, likely ileus. 2. No definite gastric volvulus. 3. Fat containing right inguinal hernia which also contains small portion of the urinary bladder and minimal fluid. 4. Left-sided nephroureteral stent in good position. 5. Bibasilar consolidation and small pleural effusions. MD Clarice Beth Alexandra A. MD Aug 06, 2017 18:22
--- NOTE | 2017-08-06 19:24 | HHI.PR ---
Addendum to Inpatient Note Additional Information ID X cover for Dr Vyas pt seen around 1800 full note to follow Silvia Oneil MD Aug 06, 2017 19:24
--- NOTE | 2017-08-06 20:46 | HHI.IDPN ---
Subjective Subjective Remarks ID X cover for Dr Vyas pt seen around 1800 this is delayed entry chart was reviewed 67 yo male with metastatic colon cancer status post anterior resection of colon and rectal areas and anastomosis along with a diverting ileostomy and also resection of a segment of left ureter with ureteral anastomosis and double-J stent placement three weeks prior. He has large sacral decub with VAC Pt leukocytosis is worsening, now @ 21K 08/04 CXR showed LLL infiltrata Last blood clx 07/23 - no growth. His gastric drainage today is 700 cc He completed cefepime on 07/29 and today was restarted on cefepime, falgyl, vanco PO Urine clx growing PSAE, S P Antibiotics cefepime vancomycion po flagyl Allergies: Coded Allergies: codeine (Verified Adverse Reaction, Severe, Nausea/Vomiting, 05/26/17) Objective . Vital Signs Date Time Temp Pulse Resp B/P (MAP) Pulse Ox O2 Delivery O2 Flow Rate FiO2 08/06/17 16:06 97.6 103 20 111/59 (76) 96 08/06/17 12:06 98.0 95 18 111/60 (77) 94 08/06/17 10:09 92 Nasal Cannula 2.00 08/06/17 08:06 98.2 91 19 115/58 (77) 92 08/06/17 08:00 Room Air 08/06/17 04:22 95 Nasal Cannula 2.00 08/06/17 04:00 97.9 93 16 114/58 (76) 94 08/06/17 00:00 98.3 95 16 105/56 (72) 94 08/06/17 08/06/17 08/07/17 15:00 23:00 07:00 Intake Total 258.5 ml 2558 ml Output Total 1500 ml Balance 258.5 ml 1058 ml Intake Oral 0 ml IV Total 258.5 ml 2558 ml Output Urine Total 800 ml Gastric Drainage Total 700 ml # Bowel Movements 0 . Laboratory Tests Test 08/05/17 11:55 08/06/17 11:55 White Blood Count 18.3 TH/MM3 21.3 TH/MM3 Red Blood Count 3.48 MIL/MM3 3.45 MIL/MM3 Hemoglobin 10.3 GM/DL 10.1 GM/DL Hematocrit 34.2 % 34.1 % Mean Corpuscular Volume 98.1 FL 98.8 FL Mean Corpuscular Hemoglobin 29.7 PG 29.4 PG Mean Corpuscular Hemoglobin Concent 30.3 % 29.7 % Red Cell Distribution Width 19.7 % 20.4 % Platelet Count 393 TH/MM3 336 TH/MM3 Mean Platelet Volume 7.8 FL 7.4 FL Neutrophils (%) (Auto) 84.9 % 87.5 % Lymphocytes (%) (Auto) 3.7 % 2.7 % Monocytes (%) (Auto) 10.9 % 9.3 % Eosinophils (%) (Auto) 0.2 % 0.1 % Basophils (%) (Auto) 0.3 % 0.4 % Neutrophils # (Auto) 15.5 TH/MM3 18.6 TH/MM3 Lymphocytes # (Auto) 0.7 TH/MM3 0.6 TH/MM3 Monocytes # (Auto) 2.0 TH/MM3 2.0 TH/MM3 Eosinophils # (Auto) 0.0 TH/MM3 0.0 TH/MM3 Basophils # (Auto) 0.1 TH/MM3 0.1 TH/MM3 CBC Comment AUTO DIFF AUTO DIFF Differential Comment AUTO DIFF CONFIRMED AUTO DIFF CONFIRMED Platelet Estimate NORMAL Platelet Morphology Comment NORMAL Laboratory Tests Test 08/05/17 14:18 08/06/17 11:15 Blood Urea Nitrogen 12 MG/DL 10 MG/DL Creatinine 0.62 MG/DL 0.54 MG/DL Random Glucose 83 MG/DL 71 MG/DL Total Protein 5.9 GM/DL 5.6 GM/DL Albumin 1.9 GM/DL 1.0 GM/DL Calcium Level 8.1 MG/DL 7.6 MG/DL Alkaline Phosphatase 235 U/L 220 U/L Aspartate Amino Transf (AST/SGOT) 19 U/L 26 U/L Alanine Aminotransferase (ALT/SGPT) 22 U/L 24 U/L Total Bilirubin 1.3 MG/DL 1.3 MG/DL Sodium Level 137 MEQ/L 135 MEQ/L Potassium Level 3.8 MEQ/L 3.9 MEQ/L Chloride Level 101 MEQ/L 109 MEQ/L Carbon Dioxide Level 25.6 MEQ/L 14.0 MEQ/L Anion Gap 10 MEQ/L 12 MEQ/L Estimat Glomerular Filtration Rate 129 ML/MIN 151 ML/MIN Microbiology Date/Time Source Procedure Growth Status 08/04/17 16:00 Urine Clean Catch Urine Culture - Preliminary Pseudomonas Aeruginosa Resulted Imaging Last Impressions Chest X-Ray 08/04/17 Signed Impressions: Service Date/Time: July 14:25 - CONCLUSION: Infiltrate within left lower lobe. Right lung is now clear. Pierce Ospina Jr., MD Cholangiopancreatography MRI 07/15/17 Signed Impressions: Service Date/Time: Saturday, July 15, 2017 15:02 - CONCLUSION: 1. Ascites with small bilateral pleural effusions. 2. Small contracted gallbladder without definite stones 3. No definite common duct stone. 4. Pancreas obscured by motion. Alfredo Lora MD FACR Liver Ultrasound 07/14/17 Signed Impressions: Service Date/Time: July 16:45 - CONCLUSION: 1. Small volume ascites. 2. Bilateral pleural effusions. 3. Sludge within the gallbladder with a top normal thickness of the gallbladder wall. No sonographic evidence to suggest acute cholecystitis. Pierce Ospina Jr., MD Abdomen X-Ray 07/06/17 Signed Impressions: Service Date/Time: Thursday, July 06, 2017 13:44 - CONCLUSION: 1. Gaseous distention of multiple bowel loops. This has slightly improved. 2. Left-sided nephroureteral stent in good position. Sarwat Suarez MD Upper Extremity Ultrasound 06/23/17 Signed Impressions: Service Date/Time: June 20:03 - CONCLUSION: Noncompressibility right cephalic vein and left basilic vein consistent with venous thrombosis Trav Hsieh MD Lower Extremity Ultrasound 06/23/17 Signed Impressions: Service Date/Time: June 20:16 - CONCLUSION: Normal examination. No evidence DVT Trav Hsieh MD Chest CT 06/20/17 Signed Impressions: Service Date/Time: Tuesday, June 20, 2017 07:42 - CONCLUSION: 1. Bilateral effusions and consolidative changes in both lung bases. Bao Lora MD Abdomen/Pelvis CT 06/20/17 Signed Impressions: Service Date/Time: Tuesday, June 20, 2017 07:39 - CONCLUSION: 1. Dilated stomach and multiple dilated loops of small bowel, likely ileus. 2. No definite gastric volvulus. 3. Fat containing right inguinal hernia which also contains small portion of the urinary bladder and minimal fluid. 4. Left-sided nephroureteral stent in good position. 5. Bibasilar consolidation and small pleural effusions. Sarwat Suarez MD Physical Exam GENERAL: No acute distress. SKIN: No rash. Sacrum decubitus wound vac in place. HEENT: No icterus. Oropharynx with dry mucosa. NECK: Supple. LUNGS: Decreased clear breath sounds. HEART: Regular S1-S2 without murmurs, rubs or gallops. ABDOMEN: Positive bowel sounds. Soft. Non tender. Distended. Ileostomy in place RLQ EXTREMITIES: No clubbing or cyanosis, edema. NEUROLOGIC: Awake, alert. Nonfocal. PSYCH: Calm and cooperative. Assessment & Plan Remarks IMPRESSION: 1. Post treatment for Severe sepsis/ Bandemia. Status post recent surgery for rectal cancer and recent ureteral resection and double J ureteral stent. 2. C difficile colitis. Pseudomembranous enteritis/sepsis. 3. Acute respiratory failure. Extubated. 4. Pseudomonas pneumonia and UTI. Treated and improved. 5. Leukocytosis. Improved initially, now is getting worse 6. Bacteremia - Pseudomonas. 7. UTI - Pseudomonas. - repeat urine clx is positive for PSAE again Severe hypoalbunemia - albumin 1.0 RECOMMENDATIONS: 1. Continue PO Vancomycin at 250 mg, flagyl 2. Continue Cefepime IV until 07/29. 3. Follow repeat blood culture. 4. fu urine clx 5. KUB, then CT A/P if pt tolerates PO contrast Silvia Oneil MD Aug 06, 2017 20:45
--- NOTE | 2017-08-06 21:30 | RADRPT ---
EXAM DATE/TIME: 08/06/2017 21:02 [facility] COMPARISON: No previous studies available for comparison. INDICATIONS : Distention. Possible ileus. MEDICAL HISTORY : None. SURGICAL HISTORY : None. ENCOUNTER: Initial ACUITY: 2 days PAIN SCORE: 6/10 LOCATION: Bilateral lower quadrant FINDINGS: There is a right lower quadrant ostomy. Nonobstructive bowel gas pattern. No free air seen. There is a left ureteral stent. No perceptible stones. CONCLUSION: Nonspecific, nonobstructive bowel gas pattern. Luca Rollins MD on August 06, 2017 at 21:27 Board Certified Radiologist. This report was verified electronically.
[2017-08-06] MEDS: VIIBRYD 40 MG PO SCH (21:38)
[2017-08-06] MEDS: TAMSULOSIN HCL 0.4 MG CAP PO SCH (21:40)
[2017-08-06] MEDS ORDERED: DIATRIZOATE MEGLUM/DIATRIZOATE SOD 9 ML CUP PO ONE (22:15)
[2017-08-07] VITALS (8 sets, daily range): BP systolic 101–121; BP diastolic 55–62; PULSE 90–99; RESP 20; TEMP 97.6–98.9; O2SAT 89–97
[2017-08-07] MEDS: DILTIAZEM HCL 60 MG TAB PO SCH ×5 (01:30→23:23)
[2017-08-07] MEDS ORDERED: IOHEXOL 350 MG/ML 10 ML VIAL (for RAD DIAG) IVCONTRAST ONE (02:35)
[2017-08-07] MEDS: CEFEPIME INJ 2,000 MG in SODIUM CHLORIDE 0.9% INJ 100 ML IV SCH ×2 (03:30→15:35)
[2017-08-07] MEDS: LACTATED RINGER'S 1000 ML INJ 1,000 ML IV SCH ×2 (03:40→16:19)
--- NOTE | 2017-08-07 04:19 | RADRPT ---
EXAM DATE/TIME: 08/07/2017 02:34 [place] COMPARISON: ABDOMEN KUB ONLY, August 06, 2017, 21:02. CT ABDOMEN & PELVIS W CONTRAST, June 17, 2017, 13:35. INDICATIONS : Abdominal pain. Evaluate for obstruction. IV CONTRAST: 95 cc Omnipaque 350 (iohexol) IV ORAL CONTRAST: Prescribed oral contrast ingested. RADIATION DOSE: 5.96 CTDIvol (mGy) MEDICAL HISTORY : Hypertension. Cancer, unspecified. SURGICAL HISTORY : Ureteral stent. Ileostomy. ENCOUNTER: Initial ACUITY: 1 day PAIN SCALE: 4/10 LOCATION: Bilateral abdomen TECHNIQUE: Volumetric scanning of the abdomen and pelvis was performed. Using automated exposure control and ad justment of the mA and/or kV according to patient size, radiation dose was kept as low as reasonably achievable to obtain optimal diagnostic quality images. DICOM format image data is available electro nically for review and comparison. FINDINGS: LOWER LUNGS: There is bilateral lower lung zone airspace consolidation. Bilateral pleural effusions are present, r ight larger than left. LIVER: Homogeneous density without lesion. There is no dilation of the biliary tree. No calcified gallston es. SPLEEN: Normal size without lesion. PANCREAS: Within normal limits. KIDNEYS: Normal in size and shape. There is no mass, stone or hydronephrosis. There is a left ureteral stent present. 8mm low-density lesion in the left lower pole kidney is stable but too small to accurately c haracterize. ADRENAL GLANDS: Within normal limits. VASCULAR: There is severe atherosclerotic disease with ectasia. BOWEL/MESENTERY: Nasogastric tube is within the stomach. Stomach is normal in size. Essentially all of the small bowel is not dilated measuring up to 3.7 cm. Small bowel feces sign is present in distal small bowel. Ther e is a right lower quadrant ileostomy. The dilated bowel extends to the ileostomy site. The colon rem ains present and is decompressed. Bowel staple line is present at the anorectal junction. There is a small volume of free fluid. No free air is present. ABDOMINAL WALL: There is a right lower quadrant ileostomy. RETROPERITONEUM: There is no lymphadenopathy. BLADDER: A portion of the urinary bladder extends into a right inguinal hernia. REPRODUCTIVE: Within normal limits. INGUINAL: There is no lymphadenopathy or hernia. MUSCULOSKELETAL: No acute osseous abnormality is identified. There is a decubitus ulcer in the midline and to the left of midline abutting the coccyx and adjacent sacrum. CONCLUSION: 1. Diffusely dilated small bowel extending to the ileostomy. There is a small volume of free fluid in the abdomen. 2. Abnormal airspace consolidation at the lung bases bilaterally with bilateral pleural effusions. 3. There is a open sacral decubitus wound extending to the adjacent coccyx and sacrum. Luca Torres MD on August 07, 2017 at 4:07 Board Certified Radiologist. This report was verified electronically.
[2017-08-07] MEDS: RESP: ALBUTEROL 1.25 MG/3 ML NEB (SCH) NEB ×4 (04:22→19:59)
[2017-08-07] MEDS: oxyCODONE/ACETAMINOPHEN 7.5 MG/325 MG TAB PO PRN ×2 (06:42→16:17)
[2017-08-07] MEDS ORDERED: PHARMACY ORDERED LAB ONE (07:45)
[2017-08-07] MEDS: INSULIN ASPART SUPPLEMENTAL SCALE SQ SCH ×4 (08:00→21:00)
[2017-08-07 08:07] LABS: AUTOMATED NEUTROPHIL # 16.9 TH/MM3 (1.8-7.7); BASOPHIL # 0.2 TH/MM3 (0-0.2); BASOPHIL % 0.9 % (0.0-2.0); EOSINOPHIL % 0.1 % (0.0-4.0); HEMATOCRIT 28.2 % (39.0-51.0); HEMO FLAGS DIFF FINAL; LYMPH % 2.3 % (9.0-44.0); LYMPHOCYTE # 0.4 TH/MM3 (1.0-4.8); MEAN CELL VOLUME 93.8 FL (80.0-100.0); MEAN CORPUSCULAR HEMOGLOBIN 30.1 PG (27.0-34.0); MEAN CORPUSCULAR HGB CONC 32.1 % (32.0-36.0); MONO % 6.9 % (0.0-8.0); NEUT % 89.8 % (16.0-70.0); PLATELET COUNT 301 TH/MM3 (150-450); RED BLOOD COUNT 3.01 MIL/MM3 (4.50-5.90); RED CELL DISTRIBUTION WIDTH 19.5 % (11.6-17.2); WHITE BLOOD COUNT 18.8 TH/MM3 (4.0-11.0)
[2017-08-07 08:23] LABS: ALT (GPT) 18 U/L (12-78); ANION GAP 11 MEQ/L (5-15); AST (GOT) 13 U/L (15-37); BICARBONATE 18.5 MEQ/L (21.0-32.0); BLOOD UREA NITROGEN 8 MG/DL (7-18); CHLORIDE 110 MEQ/L (98-107); GLOMERULAR FILTRATION RATE 158 ML/MIN (>89); MAGNESIUM 1.6 MG/DL (1.5-2.5); POTASSIUM 3.4 MEQ/L (3.5-5.1); SODIUM (NA) 139 MEQ/L (136-145)
[2017-08-07 08:25] LABS: ALKALINE PHOSPHATASE 178 U/L (45-117); TOTAL BILIRUBIN ADULT 1.2 MG/DL (0.2-1.0)
[2017-08-07] MEDS: DIGOXIN 0.125 MG TAB PO SCH (08:49)
[2017-08-07] MEDS: PANTOPRAZOLE SOD 40 MG DELAYED RELEASE TAB PO SCH (08:49)
[2017-08-07] MEDS: ENOXAPARIN SODIUM 40 MG/0.4 ML SYRINGE SQ SCH (08:50)
[2017-08-07] MEDS: MEGESTROL ACETATE SUSP 400 MG/10 ML CUP PO SCH (08:50)
[2017-08-07] MEDS: metroNIDAZOLE 500 MG INJ 100 ML IV SCH ×3 (08:51→23:23)
[2017-08-07] MEDS: BUDESONIDE-FORMOTEROL 160/4.5 MCG INHALER INH SCH ×2 (08:52→21:38)
[2017-08-07] MEDS: VANCOMYCIN 500 MG VIAL (FOR ORAL USE ONLY) PO SCH ×4 (08:54→21:37)
[2017-08-07] MEDS: COLLAGENASE OINT 30 GM TUBE TOPICAL SCH (09:00)
[2017-08-07] MEDS ORDERED: POTASSIUM CHLORIDE 10 MEQ CONTROLLED RELEASE TAB PO ONE (11:00)
--- NOTE | 2017-08-07 11:54 | HHI.PR ---
Subjective Remarks C diff enteritis, resolved, pt debilitated less confusion, hungry Objective Vital Signs Date Time Temp Pulse Resp B/P (MAP) Pulse Ox O2 Delivery O2 Flow Rate FiO2 08/07/17 09:00 Nasal Cannula 5.00 08/07/17 08:30 92 Nasal Cannula 5.00 08/07/17 08:00 98.8 90 20 106/56 (73) 90 08/07/17 07:00 2.00 08/07/17 04:00 98.1 99 20 121/62 (81) 91 08/07/17 00:00 98.6 99 20 101/55 (70) 93 08/06/17 20:57 92 Nasal Cannula 2.00 08/06/17 20:00 Nasal Cannula 2.00 08/06/17 20:00 98.1 99 20 116/58 (77) 90 08/06/17 16:06 97.6 103 20 111/59 (76) 96 08/06/17 12:06 98.0 95 18 111/60 (77) 94 I/O 08/06/17 08/06/17 08/06/17 08/07/17 08/07/17 08/07/17 07:00 15:00 23:00 07:00 15:00 23:00 Intake Total 1100 ml 258.5 ml 2558 ml 0 ml Output Total 900 ml 1500 ml 50 ml 300 ml Balance 200 ml 258.5 ml 1058 ml -50 ml -300 ml Intake Oral 0 ml 0 ml IV Total 1100 ml 258.5 ml 2558 ml Output Urine Total 900 ml 800 ml 50 ml Gastric Drainage Total 700 ml 250 ml Drainage Total 50 ml # Bowel Movements 0 0 Result Diagram: 08/07/1755 08/07/17 0655 Objective Remarks Cachectic Abdomen soft, nondistended wound healed Stoma pink, prolapsed Assessment and Plan Assessment and Plan Gtube pending Start PPN tonight Will discuss removal of ureteral stent with Karin Mims MD Aug 07, 2017 11:54
[2017-08-07] MEDS: VANCOMYCIN INJ 850 MG in SODIUM CHLOR 0.9% 250 ML INJ 250 ML IV SCH (13:05)
--- NOTE | 2017-08-07 15:52 | HHI.GIFU ---
Subjective Remarks Pt resting in bed comfortably, at bedside. 500cc of dark green output from NGT. Pt denies abdominal pain. Small amount of brown stool in ileostomy bag. (Brenda Forbes) Objective Vitals I&O Vital Signs Date Time Temp Pulse Resp B/P (MAP) Pulse Ox O2 Delivery O2 Flow Rate FiO2 08/07/17 12:00 98.9 95 20 111/61 (78) 91 08/07/17 09:00 Nasal Cannula 5.00 08/07/17 08:30 92 Nasal Cannula 5.00 08/07/17 08:00 98.8 90 20 106/56 (73) 90 08/07/17 07:00 2.00 08/07/17 04:00 98.1 99 20 121/62 (81) 91 08/07/17 00:00 98.6 99 20 101/55 (70) 93 08/06/17 20:57 92 Nasal Cannula 2.00 08/06/17 20:00 Nasal Cannula 2.00 08/06/17 20:00 98.1 99 20 116/58 (77) 90 08/06/17 16:06 97.6 103 20 111/59 (76) 96 I/O 08/06/17 08/06/17 08/06/17 08/07/17 08/07/17 08/07/17 07:00 15:00 23:00 07:00 15:00 23:00 Intake Total 1100 ml 258.5 ml 2558 ml 0 ml Output Total 900 ml 1500 ml 50 ml 300 ml Balance 200 ml 258.5 ml 1058 ml -50 ml -300 ml Intake Oral 0 ml 0 ml IV Total 1100 ml 258.5 ml 2558 ml Output Urine Total 900 ml 800 ml 50 ml Gastric Drainage Total 700 ml 250 ml Drainage Total 50 ml # Bowel Movements 0 0 Laboratory Laboratory Tests Test 08/07/17 06:55 White Blood Count 18.8 Red Blood Count 3.01 Hemoglobin 9.1 Hematocrit 28.2 Mean Corpuscular Volume 93.8 Mean Corpuscular Hemoglobin 30.1 Mean Corpuscular Hemoglobin Concent 32.1 Red Cell Distribution Width 19.5 Platelet Count 301 Mean Platelet Volume 7.7 Neutrophils (%) (Auto) 89.8 Lymphocytes (%) (Auto) 2.3 Monocytes (%) (Auto) 6.9 Eosinophils (%) (Auto) 0.1 Basophils (%) (Auto) 0.9 Neutrophils # (Auto) 16.9 Lymphocytes # (Auto) 0.4 Monocytes # (Auto) 1.3 Eosinophils # (Auto) 0.0 Basophils # (Auto) 0.2 CBC Comment DIFF FINAL Differential Comment Blood Urea Nitrogen 8 Creatinine 0.52 Random Glucose 66 Total Protein 5.1 Albumin 1.5 Calcium Level 7.7 Phosphorus Level 1.7 Magnesium Level 1.6 Alkaline Phosphatase 178 Aspartate Amino Transf (AST/SGOT) 13 Alanine Aminotransferase (ALT/SGPT) 18 Total Bilirubin 1.2 Sodium Level 139 Potassium Level 3.4 Chloride Level 110 Carbon Dioxide Level 18.5 Anion Gap 11 Estimat Glomerular Filtration Rate 158 Vancomycin Level Trough 21.9 Date/Time Source Procedure Growth Status 07/23/17 07:11 Blood Peripheral Aerobic Blood Culture - Final NO GROWTH IN 5 DAYS Complete 07/23/17 07:11 Blood Peripheral Anaerobic Blood Culture - Final NO GROWTH IN 5 DAYS Complete 07/02/17 17:00 Sputum Endotracheal Gram Stain - Final Complete 07/02/17 17:00 Sputum Culture - Final Pseudomonas Aeruginosa Complete 08/04/17 16:00 Urine Clean Catch Urine Culture - Final Pseudomonas Aeruginosa Complete Imaging Last Impressions Abdomen/Pelvis CT 08/06/17 0000 Signed Impressions: Service Date/Time: Monday, August 07, 2017 02:34 - CONCLUSION: 1. Diffusely dilated small bowel extending to the ileostomy. There is a small volume of free fluid in the abdomen. 2. Abnormal airspace consolidation at the lung bases bilaterally with bilateral pleural effusions. 3. There is a open sacral decubitus wound extending to the adjacent coccyx and sacrum. Luca Torres MD Abdomen X-Ray 08/06/17 0000 Signed Impressions: Service Date/Time: Sunday, August 06, 2017 21:02 - CONCLUSION: Nonspecific , nonobstructive bowel gas pattern. Luca Rollins MD Chest X-Ray 08/04/17 0000 Signed Impressions: Service Date/Time: July 14:25 - CONCLUSION: Infiltrate within left lower lobe. Right lung is now clear. Pierce Ospina Jr., MD Cholangiopancreatography MRI 07/15/17 0000 Signed Impressions: Service Date/Time: Saturday, July 15, 2017 15:02 - CONCLUSION: 1. Ascites with small bilateral pleural effusions. 2. Small contracted gallbladder without definite stones 3. No definite common duct stone. 4. Pancreas obscured by motion. Alfredo Lora MD FACR Liver Ultrasound 07/14/17 0000 Signed Impressions: Service Date/Time: July 16:45 - CONCLUSION: 1. Small volume ascites. 2. Bilateral pleural effusions. 3. Sludge within the gallbladder with a top normal thickness of the gallbladder wall. No sonographic evidence to suggest acute cholecystitis. Pierce Ospina Jr., MD Upper Extremity Ultrasound 06/23/17 Signed Impressions: Service Date/Time: June 20:03 - CONCLUSION: Noncompressibility right cephalic vein and left basilic vein consistent with venous thrombosis Trav Hsieh MD Lower Extremity Ultrasound 06/23/17 Signed Impressions: Service Date/Time: June 20:16 - CONCLUSION: Normal examination. No evidence DVT Trav Hsieh MD Chest CT 06/20/17 Signed Impressions: Service Date/Time: Tuesday, June 20, 2017 07:42 - CONCLUSION: 1. Bilateral effusions and consolidative changes in both lung bases. 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 PEG tube insertion attempt (08/05) --> Very dilated stomach, large amount of fecaloid material scution 950 cc after NGT inserted cannot place PEG tube now. Hiatal hernia. Ileus included as differential. Pt still having large amount of output from NGT. Recommend consideration for G/J tube after stomach decompression and drainage amount from NGT decreases. KUB (08/06) --> Nonspecific, nonobstructive bowel gas pattern. Will add Reglan. - Metastatic colon cancer. S/P lower anterior resection/coloanal anastomosis, resection and reanastomosis of the left ureter with ureteral anastomosis and double-J stent placement, wedge resection of hepatic metastasis, mobilization of the splenic flexure, and diverting closed loop ileostomy with Dr. Geiger and Dr. Pelayo on 05/26/17. Oncology following. - Elevated LFTs- resolved - CDifficile infection. Vancomycin. Flagyl. - small amount of stool in ileostomy bag - Respiratory failure, small pleural effusion. Currently on RA - Sacral decubitus ulcer. S/P Excision sacral decubitus ulcer including skin, sq tissues, bone and muscle, placement of wound vac. (07/17/17) - NEIL. Improved - Anemia. HH stable .10/02.2 S/P 2 U PRBC - Atrial fibrillation with RVR. Now sinus rhythm. Pt on Diltiazem. PLAN: - PPN - G/J tube when drainage from NGT decreases - Add Reglan - Continue Vanc, Flagyl - Further recommendations to follow Pt seen and examined by myself and Dr. Bsuch and this note is written on her behalf (Brenda Forbes) Physician Comments seen, examined agree with above picc line could not be placed due to elevated wbc, tpn changed to ppn ngt still draining , marked improvement in abdominal examination-ct noted -no obstruction g/j tube placement -will need g tube for possible venting if recurrent abdominal distension j tube for feeding - consult IR for g/j tube placement ppn for now as per nursing decreased output via colostomy -today-please contact colorectal if no improvement (Yanni Busch MD) Brenda Forbes Aug 07, 2017 15:52 Yanni Busch MD Aug 07, 2017 17:26
--- NOTE | 2017-08-07 16:21 | HHI.PR ---
Subjective Remarks at bedside. Less confusion, patient more awake and alert. mary kate ng output observed. Objective Vitals Vital Signs Date Time Temp Pulse Resp B/P (MAP) Pulse Ox O2 Delivery O2 Flow Rate FiO2 08/07/17 12:00 98.9 95 20 111/61 (78) 91 08/07/17 09:00 Nasal Cannula 5.00 08/07/17 08:30 92 Nasal Cannula 5.00 08/07/17 08:00 98.8 90 20 106/56 (73) 90 08/07/17 07:00 2.00 08/07/17 04:00 98.1 99 20 121/62 (81) 91 08/07/17 00:00 98.6 99 20 101/55 (70) 93 08/06/17 20:57 92 Nasal Cannula 2.00 08/06/17 20:00 Nasal Cannula 2.00 08/06/17 20:00 98.1 99 20 116/58 (77) 90 I/O 08/06/17 08/06/17 08/06/17 08/07/17 08/07/17 08/07/17 07:00 15:00 23:00 07:00 15:00 23:00 Intake Total 1100 ml 258.5 ml 2558 ml 0 ml Output Total 900 ml 1500 ml 50 ml 300 ml Balance 200 ml 258.5 ml 1058 ml -50 ml -300 ml Intake Oral 0 ml 0 ml IV Total 1100 ml 258.5 ml 2558 ml Output Urine Total 900 ml 800 ml 50 ml Gastric Drainage Total 700 ml 250 ml Drainage Total 50 ml # Bowel Movements 0 0 Result Diagram: 08/07/17 0655 08/07/17 0655 Imaging Last Impressions Abdomen/Pelvis CT 08/06/17 0000 Signed Impressions: Service Date/Time: Monday, August 07, 2017 02:34 - CONCLUSION: 1. Diffusely dilated small bowel extending to the ileostomy. There is a small volume of free fluid in the abdomen. 2. Abnormal airspace consolidation at the lung bases bilaterally with bilateral pleural effusions. 3. There is a open sacral decubitus wound extending to the adjacent coccyx and sacrum. Luca Torres MD Abdomen X-Ray 08/06/17 0000 Signed Impressions: Service Date/Time: Sunday, August 06, 2017 21:02 - CONCLUSION: Nonspecific , nonobstructive bowel gas pattern. Luca Rollins MD Chest X-Ray 08/04/17 0000 Signed Impressions: Service Date/Time: July 14:25 - CONCLUSION: Infiltrate within left lower lobe. Right lung is now clear. Pierce Ospina Jr., MD Cholangiopancreatography MRI 07/15/17 0000 Signed Impressions: Service Date/Time: Saturday, July 15, 2017 15:02 - CONCLUSION: 1. Ascites with small bilateral pleural effusions. 2. Small contracted gallbladder without definite stones 3. No definite common duct stone. 4. Pancreas obscured by motion. Alfredo Lora MD FACR Liver Ultrasound 07/14/17 0000 Signed Impressions: Service Date/Time: July 16:45 - CONCLUSION: 1. Small volume ascites. 2. Bilateral pleural effusions. 3. Sludge within the gallbladder with a top normal thickness of the gallbladder wall. No sonographic evidence to suggest acute cholecystitis. Pierce Ospina Jr., MD Upper Extremity Ultrasound 06/23/17 0000 Signed Impressions: Service Date/Time: June 20:03 - CONCLUSION: Noncompressibility right cephalic vein and left basilic vein consistent with venous thrombosis Trav Hsieh MD Lower Extremity Ultrasound 06/23/17 0000 Signed Impressions: Service Date/Time: June 20:16 - CONCLUSION: Normal examination. No evidence DVT Trav Hsieh MD Chest CT 06/20/17 0000 Signed Impressions: Service Date/Time: Tuesday, June 20, 2017 07:42 - CONCLUSION: 1. Bilateral effusions and consolidative changes in both lung bases. Bao Lora MD Objective Remarks GENERAL: NAD, A&Ox3 HEAD: Normocephalic. NECK: Supple, trachea midline. No lymphadenopathy. EYES: No scleral icterus. No injection or drainage. CARDIOVASCULAR: Regular rate and rhythm without murmurs, gallops, or rubs. RESPIRATORY: Breath sounds equal bilaterally. No accessory muscle use. GASTROINTESTINAL: Abdomen soft, distended, non tender, bowel sounds present but sluggish. MUSCULOSKELETAL: No cyanosis, or edema. Sacral ulcer has wound VAC in place. SKIN: Warm and dry. NEURO: No focal neurological deficitis. PSYCH: Flattened affect. Medications and IVs Current Medications Medications (Trade) Dose Ordered Sig/[place] Route Start Time Stop Time Status Last Admin (Zofran Inj) 4 mg Q4H PRN IV PUSH 06/17/17 22:00 08/04/17 21:21 Miscellaneous Information Patient in critical care unit? Ass... [id number] .XX 06/18/17 05:45 06/18/17 05:45 (Albuterol Neb) 2.5 mg Q2HR NEB PRN NEB 06/29/17 14:30 07/05/17 08:44 (Cardizem) 60 mg Q6HR PO 07/05/17 12:45 08/07/17 12:59 (Santyl Oint) 1 applic DAILY TOPICAL 07/07/17 09:00 07/31/17 08:50 (Symbicort 160-4.5 Inh) 1 puff Q12HR INH 07/07/17 09:00 08/07/17 08:52 (Lovenox Inj) 40 mg Q24H SQ 07/09/17 09:00 08/07/17 08:50 (Lomotil Tab) 1 tab Q6H PRN PO 07/10/17 11:00 (Protonix) 40 mg DAILY PO 07/11/17 09:00 08/07/17 08:49 (NovoLOG SUPPLEMENTAL SCALE) 1 ACHS SQ 07/11/17 17:00 07/29/17 12:36 (D50w (Vial) Inj) 50 ml UNSCH PRN IV PUSH 07/11/17 15:00 (Glucagon Inj) 1 mg UNSCH PRN OTHER 07/11/17 15:00 Patient Own Medication PT OWN MED: VIIB... HS PO 07/15/17 21:00 08/06/17 21:38 (Dakin'S 0.125% Soln) 500 ml MoWeFr TOPICAL 07/20/17 13:00 08/05/17 13:48 (Flomax) 0.4 mg HS PO 07/23/17 21:00 08/06/17 21:40 (Megace Liq) 400 mg DAILY PO 08/04/17 09:00 08/07/17 08:50 (Percocet 5-325 Mg) 1 tab Q6H PRN PO 08/04/17 14:30 08/06/17 10:11 (Percocet 7.5-325 Mg) 1 tab Q6H PRN PO 08/04/17 14:30 08/07/17 06:42 Cefepime HCl 2000 mg/Sodium Chloride 100 ml @ 200 mls/hr Q12H IV 08/04/17 15:00 08/07/17 15:35 (VANCOMYCIN for oral use only) 250 mg QID PO 08/04/17 18:00 08/26/17 13:01 08/07/17 13:02 (Albuterol Neb) 1.25 mg Q6HR NEB NEB 08/05/17 16:15 08/07/17 15:45 (Lanoxin) 0.125 mg DAILY PO 08/06/17 09:00 08/07/17 08:49 Pharmacy Profile Note 0 ml @ 0 mls/hr UNSCH OTHER 08/05/17 18:30 Metronidazole 100 ml @ 100 mls/hr Q8H IV 08/06/17 16:00 08/07/17 08:51 Lactated Ringer's 1,000 ml @ 84 mls/hr [id number] IV 08/06/17 15:45 08/06/17 16:40 Vancomycin HCl 850 mg/Sodium Chloride 258.5 ml @ 250 mls/hr Q18H IV 08/07/17 14:00 08/07/17 13:05 Miscellaneous Information SPECIFIC LAB TO BE [facility]... ONCE ONCE .XX 08/09/17 01:45 08/09/17 01:46 Multivitamins 10 ml/Folic Acid 1 mg/Amino Acids/ Electrolytes/ Dextrose 1,010.2 ml @ 42 mls/hr Q24H IV 08/07/17 20:00 Fat Emulsion Intravenous 250 ml @ 10 mls/hr Q24H IV 08/07/17 20:00 (Reglan Inj) 5 mg Q8HR IV PUSH 08/07/17 22:00 Date of Insertion: Jun 18, 2017 Side: Left Location: Internal A/P Problem List: (1) Nausea & vomiting ICD Code: R11.2 - Nausea with vomiting, unspecified Status: Acute (2) Tachycardia ICD Code: R00.0 - Tachycardia, unspecified Status: Acute (3) Hypertension ICD Code: I10 - Essential (primary) hypertension Status: Chronic (4) Leukocytosis ICD Code: D72.829 - Elevated white blood cell count, unspecified Status: Acute (5) Acute kidney injury ICD Code: N17.9 - Acute kidney failure, unspecified Status: Resolved (6) Cancer of rectum ICD Code: C20 - Malignant neoplasm of rectum (7) 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 Code: Z93.2 - Ileostomy status Status: Chronic (8) Sepsis ICD Code: A41.9 - Sepsis, unspecified organism Status: Acute (9) Pseudomonas septicemia ICD Code: A41.52 - Sepsis due to Pseudomonas Status: Acute (10) Pseudomonas urinary tract infection ICD Code: N39.0 - Urinary tract infection, site not specified; B96.5 - Pseudomonas (aeruginosa) (mallei) (pseudomallei) as the cause of diseases classified elsewhere Status: Acute (11) Hyperchloremic metabolic acidosis ICD Code: E87.2 - Acidosis Status: Acute Assessment and Plan 67 year-old male admitted with respiratory failure secondary to pneumonia and COPD exacerbation. Prolonged time on vent, patient now has decubitus ulcer. Status post wound VAC placement. Acute respiratory failure/ Pseudomonal pneumonia/ Pseudomonas bacteremia/ COPD with exacerbation Patient was admitted to the intensive care unit. Initially intubated and later extubated on 07/06/17. ID consulted on following. - Continue bronchodilators, inhaled steroids and mucolytic's. - Continue incentive spirometry. - d/c prednisone 07/31. - continue PT/ OT. - s/p IV vancomycin and cefepime per infectious disease 08/06 new LLL infiltrate. Continue IV Vancomycin and IV Cefepime resumed. Add IV Flagy to cover for possible aspiration. 08/07 20 antibiotics as per the ID recommendations. Tenial IV vancomycin, IV Flagyl and IV cefepime. A. fib with RVR - Follow on telemetry. - Continue by mouth Cardizem and digoxin. - Continue Lovenox. - Continue diuresis. - 08/02 Heart rate controlled. Cardiology consulted and following. Status post left colectomy/ Colorectal cancer/ Ileus S/p diverting ileostomy, wedge resection of liver metastases and resection of the left ureter. - continue Alvimopam 12mg BID for Ileus. - Continue Han catheter. - Continue diuretics. - follow up with surgery. - PT/ OT. - 08/03 dietitian recommends meals to be set up for this patient. I will start the patient on Megace as an appetite stimulant. Nutrition support at this time is not indicated given the patient is eating more than 50% of the lower end calorie/PROM needs. - 08/[address] Tran - patient agrees to PEG tube. - 08/[address] PEG for nutritional 08/05, stomach dilated, 950 cc removed per NGT, G/J tube once ileus resolves as per GI. - discussed case with GI PA. Patient still with high I put through NG tube. G4 /J-tube once ileus resolves and there is decrease in NG tube output. The abdomen and pelvis showed diffusely dilated small bowel extending to the ileostomy. There is a small volume of free fluid in the abdomen. Abnormal airspace consolidation at the lung bases bilaterally with bilateral pleural effusions. Start PPN tonight as per colorectal surgery. C. difficile enteritis - Continue by mouth vancomycin per ID. - Diarrhea has resolved and patient is having normal bowel movements. 08/05 Continue PO Vancomycin for a total of 14 days. Sacral ulcer Plastic surgery consulted. Cleared for discharge. - Continue wound care. - pain control. - follow up with colorectal surgery. Left upper extremity thrombosis Asymptomatic. - continue prophylactic Lovenox. Follow up with hematology. Sepsis Patient tachycardic and with worsening leukocytosis. Secondary to Pseudomonas UTI, H With a left lower lobe infiltrate seen on chest x-ray. Continue IV fluids 08/06 Continue IV fluids - DC Normal saline and start Lactated Ringer's /2 hyperchloremic metabolic acidosis. Patient with worsening leukocytosis. Repeat urine culture positive for pseudomonas. Bloos culture po sitive for pseudomonas. Fu blood cultures and sensitivities. Leukocytosis - Patient with WBC increased to 15 k. Will check urinalysis and cxr. ? new sepsis. Fu CBC w diff. Consider Id consult. Patient has been afebrile. - Start IV Cefepime. Consider infectious disease reconsult. - 08/05 urine positive for Pseudomonas UTI. Blood culture positive for Pseudomonas as well. Continue IV cefepime. I will add IV vancomycin given that there is a new left lower lobe infiltrate. - Cc with differential trending up from 15 K to 18.3 k. 08/06 Worsening leukocytosis. Continue IV Vancomycin, IV Cefepime and will add IV Flagyl. ID consulted and awaiting recommendations. 09/07 acidosis is not trending down from 20 1.3K to 18.8 K. LLL infiltrate/HCAP 08/05 Chest x-ray showed a left lower lobe infiltrate. Patient also with worsening leukocytosis but afebrile. I will start the patient on IV vancomycin and continue IV cefepime. Reconsult infectious disease given Pseudomonas bacteremia. 08/06 Given worsening leukocytosis will Add IV Flagyl to cover for possible aspiration pneumonia since patient had episode of vomiting recently. 08/07 Antibiotics as per ID. Severe protein calorie malnutrition. Patient with a BMI of 19.3 and and albumin of 1.9. Dietitian following. The patient not getting enough nutrition by mouth. Dietitian recommended to feedings with Jevity 1.5 at 80 mL's per hour 12 hours from 7 PM to 7 AM. TPN recommendations also placed. Continue Ensure 3 times a day and Alessandro twice a day for wound healing. Abdominal Ileus - 08/06 PEG tube could not be placed, NG tube placed with high NG output. Continue low wall suction as per colorectal surgery. Will check KUB and CT abdomen and pelvis with IV and oral contrast. 08/07 abdominal KUB shows nonspecific nonobstructive bowel gas pattern. CT abdomen and pelvis as described above also shows dilated small bowel extending to the ileostomy. DVT prophylaxis Lovenox Discharge Planning Patient not cleared medically -Pending PEG tube placement, now with sepsis, H, Pseudomonas UTI and Pseudomonas bacteremia. Problem Qualifiers (1) Hypertension: Qualified Codes: I10 - Essential (primary) hypertension Chad Marrero MD Aug 07, 2017 16:21
--- NOTE | 2017-08-07 19:04 | HHI.IDPN ---
Subjective Subjective Remarks ID X cover for Dr Vyas pt seen around 1800 this is delayed entry chart was reviewed 67 yo male with metastatic colon cancer status post anterior resection of colon and rectal areas and anastomosis along with a diverting ileostomy and also resection of a segment of left ureter with ureteral anastomosis and double-J stent placement three weeks prior. He has large sacral decub with VAC Pt leukocytosis is worsening, now @ 21K 08/04 CXR showed LLL infiltrata Last blood clx 07/23 - no growth. His gastric drainage today is 500+ cc He completed cefepime on 07/29 and today was restarted on cefepime, flagyl, vanco PO Urine clx growing PSAE, S P Antibiotics cefepime vancomycin po flagyl vanco IV Allergies: Coded Allergies: codeine (Verified Adverse Reaction, Severe, Nausea/Vomiting, 05/26/17) Objective . Vital Signs Date Time Temp Pulse Resp B/P (MAP) Pulse Ox O2 Delivery O2 Flow Rate FiO2 08/07/17 16:14 97 Simple Mask 10.00 08/07/17 16:00 97.6 96 20 114/58 (76) 89 08/07/17 12:00 98.9 95 20 111/61 (78) 91 08/07/17 09:00 Nasal Cannula 5.00 08/07/17 08:30 92 Nasal Cannula 5.00 08/07/17 08:00 98.8 90 20 106/56 (73) 90 08/07/17 07:00 2.00 08/07/17 04:00 98.1 99 20 121/62 (81) 91 08/07/17 00:00 98.6 99 20 101/55 (70) 93 08/06/17 20:57 92 Nasal Cannula 2.00 08/06/17 20:00 Nasal Cannula 2.00 08/06/17 20:00 98.1 99 20 116/58 (77) 90 08/07/17 08/07/17 08/08/17 15:00 23:00 07:00 Intake Total 258 ml 2658 ml Output Total 300 ml 325 ml Balance -42 ml 2333 ml IV Total 258 ml 2658 ml Gastric Drainage Total 250 ml 325 ml Drainage Total 50 ml . Laboratory Tests Test 08/06/17 11:55 08/07/17 06:55 White Blood Count 21.3 TH/MM3 18.8 TH/MM3 Red Blood Count 3.45 MIL/MM3 3.01 MIL/MM3 Hemoglobin 10.1 GM/DL 9.1 GM/DL Hematocrit 34.1 % 28.2 % Mean Corpuscular Volume 98.8 FL 93.8 FL Mean Corpuscular Hemoglobin 29.4 PG 30.1 PG Mean Corpuscular Hemoglobin Concent 29.7 % 32.1 % Red Cell Distribution Width 20.4 % 19.5 % Platelet Count 336 TH/MM3 301 TH/MM3 Mean Platelet Volume 7.4 FL 7.7 FL Neutrophils (%) (Auto) 87.5 % 89.8 % Lymphocytes (%) (Auto) 2.7 % 2.3 % Monocytes (%) (Auto) 9.3 % 6.9 % Eosinophils (%) (Auto) 0.1 % 0.1 % Basophils (%) (Auto) 0.4 % 0.9 % Neutrophils # (Auto) 18.6 TH/MM3 16.9 TH/MM3 Lymphocytes # (Auto) 0.6 TH/MM3 0.4 TH/MM3 Monocytes # (Auto) 2.0 TH/MM3 1.3 TH/MM3 Eosinophils # (Auto) 0.0 TH/MM3 0.0 TH/MM3 Basophils # (Auto) 0.1 TH/MM3 0.2 TH/MM3 CBC Comment AUTO DIFF DIFF FINAL Differential Comment AUTO DIFF CONFIRMED Platelet Estimate NORMAL Platelet Morphology Comment NORMAL Laboratory Tests Test 08/06/17 11:15 08/07/17 06:55 Blood Urea Nitrogen 10 MG/DL 8 MG/DL Creatinine 0.54 MG/DL 0.52 MG/DL Random Glucose 71 MG/DL 66 MG/DL Total Protein 5.6 GM/DL 5.1 GM/DL Albumin 1.0 GM/DL 1.5 GM/DL Calcium Level 7.6 MG/DL 7.7 MG/DL Alkaline Phosphatase 220 U/L 178 U/L Aspartate Amino Transf (AST/SGOT) 26 U/L 13 U/L Alanine Aminotransferase (ALT/SGPT) 24 U/L 18 U/L Total Bilirubin 1.3 MG/DL 1.2 MG/DL Sodium Level 135 MEQ/L 139 MEQ/L Potassium Level 3.9 MEQ/L 3.4 MEQ/L Chloride Level 109 MEQ/L 110 MEQ/L Carbon Dioxide Level 14.0 MEQ/L 18.5 MEQ/L Anion Gap 12 MEQ/L 11 MEQ/L Estimat Glomerular Filtration Rate 151 ML/MIN 158 ML/MIN Phosphorus Level 1.7 MG/DL Magnesium Level 1.6 MG/DL Imaging Last Impressions Abdomen/Pelvis CT 08/06/17 0000 Signed Impressions: Service Date/Time: Monday, August 07, 2017 02:34 - CONCLUSION: 1. Diffusely dilated small bowel extending to the ileostomy. There is a small volume of free fluid in the abdomen. 2. Abnormal airspace consolidation at the lung bases bilaterally with bilateral pleural effusions. 3. There is a open sacral decubitus wound extending to the adjacent coccyx and sacrum. Luca Torres MD Abdomen X-Ray 08/06/17 0000 Signed Impressions: Service Date/Time: Sunday, August 06, 2017 21:02 - CONCLUSION: Nonspecific , nonobstructive bowel gas pattern. Luca Rollins MD Chest X-Ray 08/04/17 0000 Signed Impressions: Service Date/Time: July 14:25 - CONCLUSION: Infiltrate within left lower lobe. Right lung is now clear. Pierce Ospina Jr., MD Cholangiopancreatography MRI 07/15/17 0000 Signed Impressions: Service Date/Time: Saturday, July 15, 2017 15:02 - CONCLUSION: 1. Ascites with small bilateral pleural effusions. 2. Small contracted gallbladder without definite stones 3. No definite common duct stone. 4. Pancreas obscured by motion. Alfredo Lora MD FACR Liver Ultrasound 07/14/17 0000 Signed Impressions: Service Date/Time: July 16:45 - CONCLUSION: 1. Small volume ascites. 2. Bilateral pleural effusions. 3. Sludge within the gallbladder with a top normal thickness of the gallbladder wall. No sonographic evidence to suggest acute cholecystitis. Pierce Ospina Jr., MD Upper Extremity Ultrasound 06/23/17 0000 Signed Impressions: Service Date/Time: June 20:03 - CONCLUSION: Noncompressibility right cephalic vein and left basilic vein consistent with venous thrombosis Trav Hsieh MD Lower Extremity Ultrasound 06/23/17 0000 Signed Impressions: Service Date/Time: June 20:16 - CONCLUSION: Normal examination. No evidence DVT Trav Hsieh MD Chest CT 06/20/17 0000 Signed Impressions: Service Date/Time: Tuesday, June 20, 2017 07:42 - CONCLUSION: 1. Bilateral effusions and consolidative changes in both lung bases. Bao Lora MD Physical Exam GENERAL: No acute distress. SKIN: No rash. Sacrum decubitus wound vac in place. HEENT: No icterus. Oropharynx with dry mucosa. NECK: Supple. LUNGS: Decreased clear breath sounds. HEART: Regular S1-S2 without murmurs, rubs or gallops. ABDOMEN: Positive bowel sounds. Soft. Non tender. Distended. Ileostomy in place RLQ EXTREMITIES: No clubbing or cyanosis, edema. NEUROLOGIC: Awake, alert. Nonfocal. PSYCH: Calm and cooperative. Assessment & Plan Remarks IMPRESSION: 1. Post treatment for Severe sepsis/ Bandemia. Status post recent surgery for rectal cancer and recent ureteral resection and double J ureteral stent. 2. C difficile colitis. Pseudomembranous enteritis/sepsis. 3. Acute respiratory failure. Extubated. 4. Pseudomonas pneumonia and UTI. Treated and improved. 5. Leukocytosis. Improved initially, now is getting worse 6. Bacteremia - Pseudomonas. 7. UTI - Pseudomonas. - repeat urine clx is positive for PSAE again Severe hypoalbunemia - albumin 1.0 RECOMMENDATIONS: 1. Continue PO Vancomycin at 250 mg, flagyl 2. Continue Cefepime IV 3. fu stool for C.diff 4. vanco IV dw Silvia Rodriguez MD Aug 07, 2017 19:04
[2017-08-07] MEDS: VIIBRYD 40 MG PO SCH (21:37)
[2017-08-07] MEDS: METOCLOPRAMIDE HCL 10 MG/2 ML VIAL IV PUSH SCH (21:37)
[2017-08-07] MEDS: CLINIMIX E 4.25/5 1000 mL- </= 42 mls/hr IV SCH ×3 (21:38)
[2017-08-07] MEDS: TAMSULOSIN HCL 0.4 MG CAP PO SCH (21:38)
[2017-08-07] MEDS: FAT EMULSION 20% INJ 250 ML (@10 mls/hr) IV SCH (21:39)
[2017-08-08] VITALS (8 sets, daily range): BP systolic 120–142; BP diastolic 55–81; PULSE 96–100; RESP 20–30; TEMP 97.3–98.4; O2SAT 84–93
[2017-08-08] MEDS: LACTATED RINGER'S 1000 ML INJ 1,000 ML IV SCH ×3 (03:30→18:44)
[2017-08-08] MEDS: CEFEPIME INJ 2,000 MG in SODIUM CHLORIDE 0.9% INJ 100 ML IV SCH (03:35)
[2017-08-08] MEDS: RESP: ALBUTEROL 1.25 MG/3 ML NEB (SCH) NEB ×4 (04:39→20:58)
[2017-08-08] MEDS: DILTIAZEM HCL 60 MG TAB PO SCH ×3 (05:40→17:13)
[2017-08-08] MEDS: METOCLOPRAMIDE HCL 10 MG/2 ML VIAL IV PUSH SCH ×3 (05:40→20:27)
[2017-08-08] MEDS: oxyCODONE/ACETAMINOPHEN 7.5 MG/325 MG TAB PO PRN ×2 (05:59→14:48)
[2017-08-08 07:10] LABS: C. DIFF EPI 027 PRESUMPTIVE NEGATIVE (NEGATIVE)
[2017-08-08] MEDS: INSULIN ASPART SUPPLEMENTAL SCALE SQ SCH ×4 (08:00→22:00)
--- NOTE | 2017-08-08 08:52 | HHI.PR ---
Addendum to Inpatient Note Additional Information Received a call from RN re abx Orders revirew Pt is on cefepime since 08/04 8 bags were given so far clx revieweed - PSAE isolate only I to cefepime Pt is C.diff negative as of 08/08 specimen, however will probably avoid levaqiin given recent c.diff h/o dc cefepime start andrzejsySilvia Diamond RN, MD Aug 08, 2017 08:52
--- NOTE | 2017-08-08 08:52 | HHI.PR ---
Subjective Remarks Has Pseudomonas UTI again. Dr Pelayo consulted for possible stent removal as it is likely source. Ileus secondary to UTI each time UTI occurs. C. Diff negative.Receiving PPN because apparently PICC could not be placed due to WBC? Objective Vital Signs Date Time Temp Pulse Resp B/P (MAP) Pulse Ox O2 Delivery O2 Flow Rate FiO2 08/08/17 08:13 92 Nasal Cannula 6.00 08/08/17 05:35 98.4 98 20 128/67 (87) 92 08/07/17 20:00 Simple Mask 5.00 08/07/17 20:00 92 Simple Mask 10.00 08/07/17 20:00 97.8 95 20 117/58 (77) 93 08/07/17 16:14 97 Simple Mask 10.00 08/07/17 16:00 97.6 96 20 114/58 (76) 89 08/07/17 12:00 98.9 95 20 111/61 (78) 91 08/07/17 09:00 Nasal Cannula 5.00 I/O 08/07/17 08/07/17 08/07/17 08/08/17 08/08/17 08/08/17 07:00 15:00 23:00 07:00 15:00 23:00 Intake Total 0 ml 258 ml 2658 ml 1100 ml Output Total 50 ml 300 ml 1175 ml 400 ml Balance -50 ml -42 ml 1483 ml 700 ml Intake Oral 0 ml 0 ml 0 ml IV Total 258 ml 2658 ml 1100 ml Output Urine Total 50 ml 850 ml Gastric Drainage Total 250 ml 325 ml 400 ml Drainage Total 50 ml # Voids 2 # Bowel Movements 0 0 0 Result Diagram: 08/07/1765408/07/17654 Objective Remarks VS-S Gen: severe cachexia Abd: Soft. Mild distention, stoma with small thick stool. Non tender . Assessment and Plan Assessment and Plan Decubitus Poor nutrition. Severe deconditioning UTI again with Pseudomonas not fully sensitive to Cefepime anymore Agrees to PEG placement today. Needs nutrition MARY. Started PPN due to Ileus Cefepime for Pseudomonas Needs aggressive PT and Nutrition to fully heal decubitus and recover Continue PO vancomycin Should have PT everyday including weekends. Needs position changes for Pulmonary toilet Started Albuterol for lungs. Consulted Dr Pelayo to consider removing left ureteral stent. Luca Geiger MD Aug 08, 2017 08:52
[2017-08-08] MEDS: ENOXAPARIN SODIUM 40 MG/0.4 ML SYRINGE SQ SCH (09:00)
[2017-08-08] MEDS: COLLAGENASE OINT 30 GM TUBE TOPICAL SCH (09:00)
[2017-08-08 11:15] LABS: AUTOMATED NEUTROPHIL # 21.6 TH/MM3 (1.8-7.7); BASOPHIL % 0.1 % (0.0-2.0); HEMATOCRIT 27.8 % (39.0-51.0); LYMPH % 2.2 % (9.0-44.0); LYMPHOCYTE # 0.5 TH/MM3 (1.0-4.8); MEAN CORPUSCULAR HEMOGLOBIN 30.2 PG (27.0-34.0); MEAN CORPUSCULAR HGB CONC 32.1 % (32.0-36.0); MONO % 4.2 % (0.0-8.0); NEUT % 93.5 % (16.0-70.0); PLATELET COUNT 300 TH/MM3 (150-450); RED BLOOD COUNT 2.96 MIL/MM3 (4.50-5.90); WHITE BLOOD COUNT 23.1 TH/MM3 (4.0-11.0)
[2017-08-08 11:17] LABS: HEMO FLAGS AUTO DIFF
[2017-08-08 11:28] LABS: INTERNATIONAL NORMALIZED RATIO 2.1 RATIO; PROTHROMBIN TIME - PATIENT 21.5 SEC (9.8-11.6)
[2017-08-08 11:36] LABS: ANION GAP 9 MEQ/L (5-15); AST (GOT) 14 U/L (15-37); BICARBONATE 21.8 MEQ/L (21.0-32.0); BLOOD UREA NITROGEN 10 MG/DL (7-18); CHLORIDE 111 MEQ/L (98-107); GLOMERULAR FILTRATION RATE 148 ML/MIN (>89); POTASSIUM 4.1 MEQ/L (3.5-5.1); SODIUM (NA) 142 MEQ/L (136-145)
[2017-08-08 11:38] LABS: ALT (GPT) 12 U/L (12-78)
[2017-08-08 11:40] LABS: ALKALINE PHOSPHATASE 150 U/L (45-117); TOTAL BILIRUBIN ADULT 1.1 MG/DL (0.2-1.0)
[2017-08-08] MEDS: metroNIDAZOLE 500 MG INJ 100 ML IV SCH ×2 (12:08→17:14)
[2017-08-08] MEDS: MEGESTROL ACETATE SUSP 400 MG/10 ML CUP PO SCH (12:10)
[2017-08-08] MEDS: VANCOMYCIN 500 MG VIAL (FOR ORAL USE ONLY) PO SCH ×4 (12:10→20:27)
[2017-08-08] MEDS: PANTOPRAZOLE SOD 40 MG DELAYED RELEASE TAB PO SCH (12:11)
[2017-08-08] MEDS: DIGOXIN 0.125 MG TAB PO SCH (12:11)
[2017-08-08] MEDS: oxyCODONE/ACETAMINOPHEN 5 MG/325 MG TAB PO PRN (12:11)
[2017-08-08] MEDS: BUDESONIDE-FORMOTEROL 160/4.5 MCG INHALER INH SCH ×2 (12:12→20:26)
[2017-08-08 12:17] LABS: BANDS 5 % (0-6); NEUTROPHIL # MANUAL DIFF 22.9 TH/MM3 (1.8-7.7); PLATELET ESTIMATE SMEAR NORMAL (NORMAL); PLATELET MORPHOLOGY NORMAL (NORMAL); POLYS (SEG NEUTROPHILS) 94 % (16-70); SCAN/DIFF FINAL DIFF MANUAL; WBC DIFF SAMPLE 100
[2017-08-08] MEDS: VANCOMYCIN INJ 850 MG in SODIUM CHLOR 0.9% 250 ML INJ 250 ML IV SCH (13:24)
--- NOTE | 2017-08-08 13:55 | HHI.IDPN ---
Subjective Subjective Remarks ID X cover for Dr Vyas pt is tachypneic, on venti mask no fever PSAE in urine I to cefepime WBC 23 K Antibiotics cefepime vancomycin po flagyl vanco IV Allergies: Coded Allergies: codeine (Verified Adverse Reaction, Severe, Nausea/Vomiting, 05/26/17) Objective . Vital Signs Date Time Temp Pulse Resp B/P (MAP) Pulse Ox O2 Delivery O2 Flow Rate FiO2 08/08/17 12:00 98.0 100 21 121/55 (77) 91 08/08/17 11:15 90 Simple Mask 10.00 08/08/17 08:13 92 Nasal Cannula 6.00 08/08/17 08:00 97.3 96 21 120/55 (76) 84 08/08/17 05:35 98.4 98 20 128/67 (87) 92 08/07/17 20:00 Simple Mask 5.00 08/07/17 20:00 92 Simple Mask 10.00 08/07/17 20:00 97.8 95 20 117/58 (77) 93 08/07/17 16:14 97 Simple Mask 10.00 08/07/17 16:00 97.6 96 20 114/58 (76) 89 . Laboratory Tests Test 08/07/17 06:55 08/08/17 11:05 White Blood Count 18.8 TH/MM3 23.1 TH/MM3 Red Blood Count 3.01 MIL/MM3 2.96 MIL/MM3 Hemoglobin 9.1 GM/DL 8.9 GM/DL Hematocrit 28.2 % 27.8 % Mean Corpuscular Volume 93.8 FL 94.0 FL Mean Corpuscular Hemoglobin 30.1 PG 30.2 PG Mean Corpuscular Hemoglobin Concent 32.1 % 32.1 % Red Cell Distribution Width 19.5 % 20.0 % Platelet Count 301 TH/MM3 300 TH/MM3 Mean Platelet Volume 7.7 FL 7.7 FL Neutrophils (%) (Auto) 89.8 % 93.5 % Lymphocytes (%) (Auto) 2.3 % 2.2 % Monocytes (%) (Auto) 6.9 % 4.2 % Eosinophils (%) (Auto) 0.1 % 0.0 % Basophils (%) (Auto) 0.9 % 0.1 % Neutrophils # (Auto) 16.9 TH/MM3 21.6 TH/MM3 Lymphocytes # (Auto) 0.4 TH/MM3 0.5 TH/MM3 Monocytes # (Auto) 1.3 TH/MM3 1.0 TH/MM3 Eosinophils # (Auto) 0.0 TH/MM3 0.0 TH/MM3 Basophils # (Auto) 0.2 TH/MM3 0.0 TH/MM3 CBC Comment DIFF FINAL AUTO DIFF Differential Comment FINAL DIFF MANUAL Differential Total Cells Counted 100 Neutrophils % (Manual) 94 % Band Neutrophils % 5 % Monocytes % 1 % Neutrophils # (Manual) 22.9 TH/MM3 Platelet Estimate NORMAL Platelet Morphology Comment NORMAL Laboratory Tests Test 08/07/17 06:55 08/08/17 11:05 Blood Urea Nitrogen 8 MG/DL 10 MG/DL Creatinine 0.52 MG/DL 0.55 MG/DL Random Glucose 66 MG/DL 130 MG/DL Total Protein 5.1 GM/DL 4.9 GM/DL Albumin 1.5 GM/DL 1.4 GM/DL Calcium Level 7.7 MG/DL 7.7 MG/DL Phosphorus Level 1.7 MG/DL Magnesium Level 1.6 MG/DL Alkaline Phosphatase 178 U/L 150 U/L Aspartate Amino Transf (AST/SGOT) 13 U/L 14 U/L Alanine Aminotransferase (ALT/SGPT) 18 U/L 12 U/L Total Bilirubin 1.2 MG/DL 1.1 MG/DL Sodium Level 139 MEQ/L 142 MEQ/L Potassium Level 3.4 MEQ/L 4.1 MEQ/L Chloride Level 110 MEQ/L 111 MEQ/L Carbon Dioxide Level 18.5 MEQ/L 21.8 MEQ/L Anion Gap 11 MEQ/L 9 MEQ/L Estimat Glomerular Filtration Rate 158 ML/MIN 148 ML/MIN Imaging Last Impressions Abdomen/Pelvis CT 08/06/17 0000 Signed Impressions: Service Date/Time: Monday, August 07, 2017 02:34 - CONCLUSION: 1. Diffusely dilated small bowel extending to the ileostomy. There is a small volume of free fluid in the abdomen. 2. Abnormal airspace consolidation at the lung bases bilaterally with bilateral pleural effusions. 3. There is a open sacral decubitus wound extending to the adjacent coccyx and sacrum. Luca Torres MD Abdomen X-Ray 08/06/17 0000 Signed Impressions: Service Date/Time: Sunday, August 06, 2017 21:02 - CONCLUSION: Nonspecific , nonobstructive bowel gas pattern. Luca Rollins MD Chest X-Ray 08/04/17 0000 Signed Impressions: Service Date/Time: July 14:25 - CONCLUSION: Infiltrate within left lower lobe. Right lung is now clear. Pierce Ospina Jr., MD Cholangiopancreatography MRI 07/15/17 0000 Signed Impressions: Service Date/Time: Saturday, July 15, 2017 15:02 - CONCLUSION: 1. Ascites with small bilateral pleural effusions. 2. Small contracted gallbladder without definite stones 3. No definite common duct stone. 4. Pancreas obscured by motion. Alfredo Lora MD FACR Liver Ultrasound 07/14/17 0000 Signed Impressions: Service Date/Time: July 16:45 - CONCLUSION: 1. Small volume ascites. 2. Bilateral pleural effusions. 3. Sludge within the gallbladder with a top normal thickness of the gallbladder wall. No sonographic evidence to suggest acute cholecystitis. Pierce Ospina Jr., MD Upper Extremity Ultrasound 06/23/17 0000 Signed Impressions: Service Date/Time: June 20:03 - CONCLUSION: Noncompressibility right cephalic vein and left basilic vein consistent with venous thrombosis Trav Hsieh MD Lower Extremity Ultrasound 06/23/17 0000 Signed Impressions: Service Date/Time: June 20:16 - CONCLUSION: Normal examination. No evidence DVT Trav Hsieh MD Chest CT 06/20/17 0000 Signed Impressions: Service Date/Time: Tuesday, June 20, 2017 07:42 - CONCLUSION: 1. Bilateral effusions and consolidative changes in both lung bases. Bao Lora MD Physical Exam GENERAL: No acute distress. SKIN: No rash. Sacrum decubitus wound vac in place. HEENT: No icterus. Oropharynx with dry mucosa. NECK: Supple. LUNGS: Decreased clear breath sounds. HEART: Regular S1-S2 without murmurs, rubs or gallops. ABDOMEN: Positive bowel sounds. Soft. Non tender. Distended. Ileostomy in place RLQ EXTREMITIES: No clubbing or cyanosis, edema. NEUROLOGIC: Awake, alert. Nonfocal. PSYCH: Calm and cooperative. Assessment & Plan Remarks IMPRESSION: 1. Post treatment for Severe sepsis/ Bandemia. Status post recent surgery for rectal cancer and recent ureteral resection and double J ureteral stent. placed in Sep 2. C difficile colitis. Pseudomembranous enteritis/sepsis. 3. Acute respiratory failure. Extubated. 4. Pseudomonas pneumonia and UTI. Treated and improved. 5. Leukocytosis. Improved initially, now is getting worse 6. Bacteremia - Pseudomonas. 7. UTI - Pseudomonas. - repeat urine clx is positive for PSAE again I to cefepime Severe hypoalbunemia - albumin 1.0 Hyupoxia with infiltrates : PNA vs fluid overload RECOMMENDATIONS: 1. Continue PO Vancomycin at 250 mg, flagyl 2. change Cefepime IV to zosyn 3. dc vanco IV chk blood clx fu WBC BNP sputum clx dw RN Silvia Oneil MD Aug 08, 2017 13:55
[2017-08-08] MEDS: SODIUM HYPOCHLORITE 0.125% 500 ML BTL TOPICAL SCH (14:04)
--- NOTE | 2017-08-08 14:26 | HHI.PR ---
Subjective Remarks Patient denies cp/sob, Denies abdominal pain, nausea or vomiting. NG tube with mary kate output volume afebrile Patient with o2 sats in the mid 80's, requiring the patient to be on a simple mask at 10 liters. Objective Vitals Vital Signs Date Time Temp Pulse Resp B/P (MAP) Pulse Ox O2 Delivery O2 Flow Rate FiO2 08/08/17 12:00 98.0 100 21 121/55 (77) 91 08/08/17 11:15 90 Simple Mask 10.00 08/08/17 08:13 92 Nasal Cannula 6.00 08/08/17 08:00 97.3 96 21 120/55 (76) 84 08/08/17 05:35 98.4 98 20 128/67 (87) 92 08/07/17 20:00 Simple Mask 5.00 08/07/17 20:00 92 Simple Mask 10.00 08/07/17 20:00 97.8 95 20 117/58 (77) 93 08/07/17 16:14 97 Simple Mask 10.00 08/07/17 16:00 97.6 96 20 114/58 (76) 89 I/O 08/07/17 08/07/17 08/07/17 08/08/17 08/08/17 08/08/17 07:00 15:00 23:00 07:00 15:00 23:00 Intake Total 0 ml 258 ml 2658 ml 1100 ml Output Total 50 ml 300 ml 1175 ml 400 ml Balance -50 ml -42 ml 1483 ml 700 ml Intake Oral 0 ml 0 ml 0 ml IV Total 258 ml 2658 ml 1100 ml Output Urine Total 50 ml 850 ml Gastric Drainage Total 250 ml 325 ml 400 ml Drainage Total 50 ml # Voids 2 # Bowel Movements 0 0 0 Result Diagram: 08/08/17 1105 08/08/17 1105 Imaging Last Impressions Abdomen/Pelvis CT 08/06/17 0000 Signed Impressions: Service Date/Time: Monday, August 07, 2017 02:34 - CONCLUSION: 1. Diffusely dilated small bowel extending to the ileostomy. There is a small volume of free fluid in the abdomen. 2. Abnormal airspace consolidation at the lung bases bilaterally with bilateral pleural effusions. 3. There is a open sacral decubitus wound extending to the adjacent coccyx and sacrum. Luca Torres MD Abdomen X-Ray 08/06/17 Signed Impressions: Service Date/Time: Sunday, August 06, 2017 21:02 - CONCLUSION: Nonspecific , nonobstructive bowel gas pattern. Luca Rlolins MD Chest X-Ray 08/04/17 0000 Signed Impressions: Service Date/Time: July 14:25 - CONCLUSION: Infiltrate within left lower lobe. Right lung is now clear. Pierce Ospina Jr., MD Cholangiopancreatography MRI 07/15/17 Signed Impressions: Service Date/Time: Saturday, July 15, 2017 15:02 - CONCLUSION: 1. Ascites with small bilateral pleural effusions. 2. Small contracted gallbladder without definite stones 3. No definite common duct stone. 4. Pancreas obscured by motion. Alfredo Lora MD FACR Liver Ultrasound 07/14/17 0000 Signed Impressions: Service Date/Time: July 16:45 - CONCLUSION: 1. Small volume ascites. 2. Bilateral pleural effusions. 3. Sludge within the gallbladder with a top normal thickness of the gallbladder wall. No sonographic evidence to suggest acute cholecystitis. Pierce Ospina Jr., MD Upper Extremity Ultrasound 06/23/17 Signed Impressions: Service Date/Time: June 20:03 - CONCLUSION: Noncompressibility right cephalic vein and left basilic vein consistent with venous thrombosis Trav Hsieh MD Lower Extremity Ultrasound 06/23/17 Signed Impressions: Service Date/Time: June 20:16 - CONCLUSION: Normal examination. No evidence DVT Trav Hsieh MD Chest CT 06/20/17 Signed Impressions: Service Date/Time: Tuesday, June 20, 2017 07:42 - CONCLUSION: 1. Bilateral effusions and consolidative changes in both lung bases. Bao Lora MD Objective Remarks GENERAL: NAD, A&Ox3 HEAD: Normocephalic. NECK: Supple, trachea midline. No lymphadenopathy. EYES: No scleral icterus. No injection or drainage. CARDIOVASCULAR: Regular rate and rhythm without murmurs, gallops, or rubs. RESPIRATORY: Breath sounds equal bilaterally. No accessory muscle use. GASTROINTESTINAL: Abdomen soft, distended, non tender, bowel sounds present but sluggish. MUSCULOSKELETAL: No cyanosis, or edema. Sacral ulcer has wound VAC in place. SKIN: Warm and dry. NEURO: No focal neurological deficitis. PSYCH: Flattened affect. Medications and IVs Current Medications Medications (Trade) Dose Ordered Sig/[place] Route Start Time Stop Time Status Last Admin (Zofran Inj) 4 mg Q4H PRN IV PUSH 06/17/17 22:00 08/04/17 21:21 Miscellaneous Information Patient in critical care unit? Ass... [id number] .XX 06/18/17 05:45 06/18/17 05:45 (Albuterol Neb) 2.5 mg Q2HR NEB PRN NEB 06/29/17 14:30 07/05/17 08:44 (Cardizem) 60 mg Q6HR PO 07/05/17 12:45 08/08/17 12:11 (Santyl Oint) 1 applic DAILY TOPICAL 07/07/17 09:00 08/08/17 09:00 (Symbicort 160-4.5 Inh) 1 puff Q12HR INH 07/07/17 09:00 08/08/17 12:12 (Lovenox Inj) 40 mg Q24H SQ 07/09/17 09:00 08/07/17 08:50 (Lomotil Tab) 1 tab Q6H PRN PO 07/10/17 11:00 (Protonix) 40 mg DAILY PO 07/11/17 09:00 08/08/17 12:11 (NovoLOG SUPPLEMENTAL SCALE) 1 ACHS SQ 07/11/17 17:00 07/29/17 12:36 (D50w (Vial) Inj) 50 ml UNSCH PRN IV PUSH 07/11/17 15:00 (Glucagon Inj) 1 mg UNSCH PRN OTHER 07/11/17 15:00 Patient Own Medication PT OWN MED: VIIB... HS PO 07/15/17 21:00 08/07/17 21:37 (Dakin'S 0.125% Soln) 500 ml MoWeFr TOPICAL 07/20/17 13:00 08/08/17 14:04 (Flomax) 0.4 mg HS PO 07/23/17 21:00 08/07/17 21:38 (Megace Liq) 400 mg DAILY PO 08/04/17 09:00 08/08/17 12:10 (Percocet 5-325 Mg) 1 tab Q6H PRN PO 08/04/17 14:30 08/08/17 12:11 (Percocet 7.5-325 Mg) 1 tab Q6H PRN PO 08/04/17 14:30 08/08/17 05:59 (VANCOMYCIN for oral use only) 250 mg QID PO 08/04/17 18:00 08/26/17 13:01 08/08/17 12:10 (Albuterol Neb) 1.25 mg Q6HR NEB NEB 08/05/17 16:15 08/08/17 08:10 (Lanoxin) 0.125 mg DAILY PO 08/06/17 09:00 08/08/17 12:11 Metronidazole 100 ml @ 100 mls/hr Q8H IV 08/06/17 16:00 08/08/17 12:08 Lactated Ringer's 1,000 ml @ 30 mls/hr Q24H IV 08/06/17 15:45 08/08/17 03:42 Multivitamins 10 ml/Folic Acid 1 mg/Amino Acids/ Electrolytes/ Dextrose 1,010.2 ml @ 42 mls/hr Q24H IV 08/07/17 20:00 08/07/17 21:38 Fat Emulsion Intravenous 250 ml @ 10 mls/hr Q24H IV 08/07/17 20:00 08/07/17 21:39 (Reglan Inj) 5 mg Q8HR IV PUSH 08/07/17 22:00 08/08/17 05:40 Piperacillin Sod/ Tazobactam Sod 50 ml @ 100 mls/hr Q6H IV 08/08/17 10:00 Date of Insertion: Jun 18, 2017 Side: Left Location: Internal A/P Problem List: (1) Nausea & vomiting ICD Code: R11.2 - Nausea with vomiting, unspecified Status: Acute (2) Tachycardia ICD Code: R00.0 - Tachycardia, unspecified Status: Acute (3) Hypertension ICD Code: I10 - Essential (primary) hypertension Status: Chronic (4) Leukocytosis ICD Code: D72.829 - Elevated white blood cell count, unspecified Status: Acute (5) Acute kidney injury ICD Code: N17.9 - Acute kidney failure, unspecified Status: Resolved (6) Cancer of rectum ICD Code: C20 - Malignant neoplasm of rectum (7) 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 Code: Z93.2 - Ileostomy status Status: Chronic (8) Sepsis ICD Code: A41.9 - Sepsis, unspecified organism Status: Acute (9) Pseudomonas septicemia ICD Code: A41.52 - Sepsis due to Pseudomonas Status: Acute (10) Pseudomonas urinary tract infection ICD Code: N39.0 - Urinary tract infection, site not specified; B96.5 - Pseudomonas (aeruginosa) (mallei) (pseudomallei) as the cause of diseases classified elsewhere Status: Acute (11) Hyperchloremic metabolic acidosis ICD Code: E87.2 - Acidosis Status: Acute Assessment and Plan 67 year-old male admitted with respiratory failure secondary to pneumonia and COPD exacerbation. Prolonged time on vent, patient now has decubitus ulcer. Status post wound VAC placement. Acute respiratory failure/ Pseudomonal pneumonia/ Pseudomonas bacteremia/ COPD with exacerbation Patient was admitted to the intensive care unit. Initially intubated and later extubated on 07/06/17. ID consulted on following. - Continue bronchodilators, inhaled steroids and mucolytic's. - Continue incentive spirometry. - d/c prednisone 07/31. - continue PT/ OT. - s/p IV vancomycin and cefepime per infectious disease 08/06 new LLL infiltrate. Continue IV Vancomycin and IV Cefepime resumed. Add IV Flagy to cover for possible aspiration. 08/07 20 antibiotics as per the ID recommendations. Continue IV vancomycin, IV Flagyl and IV cefepime. 08/08 patient has worsening respiratory status with increased O2 demand and hypoxemia. Continue vancomycin, started on IV Zosyn as per infectious disease. I will order a chest x-ray stat. A. fib with RVR - Follow on telemetry. - Continue by mouth Cardizem and digoxin. - Continue Lovenox. - Continue diuresis. - 08/02 Heart rate controlled. Cardiology consulted and following. - 08/08 INR therapeutic at 2.1. Will hold and administer vitamin K. Recheck INR in am. The INR should be less than 1.5 with the patient to undergo GJ tube placement. Status post left colectomy/ Colorectal cancer/ Ileus S/p diverting ileostomy, wedge resection of liver metastases and resection of the left ureter. - continue Alvimopam 12mg BID for Ileus. - Continue Han catheter. - Continue diuretics. - follow up with surgery. - PT/ OT. - 08/03 dietitian recommends meals to be set up for this patient. I will start the patient on Megace as an appetite stimulant. Nutrition support at this time is not indicated given the patient is eating more than 50% of the lower end calorie/PROM needs. - 08/[address] Tran - patient agrees to PEG tube. - 08/[address] PEG for nutritional 08/05, stomach dilated, 950 cc removed per NGT, G/J tube once ileus resolves as per GI. - 08/07 discussed case with GI PA. Patient still with high I put through NG tube. G4/J-tube once ileus resolves and there is decrease in NG tube output. The abdomen and pelvis showed diffusely dilated small bowel extending to the ileostomy. There is a small volume of free fluid in the abdomen. Abnormal airspace consolidation at the lung bases bilaterally with bilateral pleural effusions. Start PPN tonight as per colorectal surgery. 08/[address] GJ tube. However INR elevated at 2.1. I will hold Coumadin and administer vitamin K. Recheck PT/INR in a.m. C. difficile enteritis - Continue by mouth vancomycin per ID. - Diarrhea has resolved and patient is having normal bowel movements. 08/05 Continue PO Vancomycin for a total of 14 days. Sacral ulcer Plastic surgery consulted. Cleared for discharge. - Continue wound care. - pain control. - follow up with colorectal surgery. Left upper extremity thrombosis Asymptomatic. - continue prophylactic Lovenox. Follow up with hematology. Sepsis Patient tachycardic and with worsening leukocytosis. Secondary to Pseudomonas UTI, H With a left lower lobe infiltrate seen on chest x-ray. Continue IV fluids 08/06 Continue IV fluids - DC Normal saline and start Lactated Ringer's 2/2 hyperchloremic metabolic acidosis. Patient with worsening leukocytosis. Repeat urine culture positive for pseudomonas. Blood culture positive for pseudomonas. Fu blood cultures and sensitivities. 08/08 antibiotics as per infectious disease. IV vancomycin, IV cefepime discontinued today. Patient started on IV Zosyn. Leukocytosis Initially patient's white blood cell increased to 15 K. Patient was started on cefepime given that UA was positive for Pseudomonas UTI. Patient also has blood cultures positive for Pseudomonas as well. Patient also on IV cefepime, ID consulted. IV vancomycin added given that there was a new noticed left lower lobe infiltrate seen on x-ray obtained on 08/04/17. WBC has been trending up. IV vancomycin, IV cefepime, then IV Flagyl was added to cover for aspiration pneumonia. 08/08 leukocytosis worsening with WBC trending from 18.8 K to 23.1 K. antibiotics as per ID. IV vancomycin and IV cefepime discontinued today (08/08) and the patient start an IV Zosyn. LLL infiltrate/HCAP/Aspiration pneumonia. 08/05 Chest x-ray showed a left lower lobe infiltrate. Patient also with worsening leukocytosis but afebrile. I will start the patient on IV vancomycin and continue IV cefepime. Reconsult infectious disease given Pseudomonas bacteremia. 08/06 Given worsening leukocytosis will Add IV Flagyl to cover for possible aspiration pneumonia since patient had episode of vomiting recently. 08/07 Antibiotics as per ID. Severe protein calorie malnutrition. Patient with a BMI of 19.3 and and albumin of 1.9. Dietitian following. The patient not getting enough nutrition by mouth. Dietitian recommended to feedings with Jevity 1.5 at 80 mL's per hour 12 hours from 7 PM to 7 AM. TPN recommendations also placed. Continue Ensure 3 times a day and Alessandro twice a day for wound healing. Abdominal Ileus - 08/06 PEG tube could not be placed, NG tube placed with high NG output. Continue low wall suction as per colorectal surgery. Will check KUB and CT abdomen and pelvis with IV and oral contrast. 08/07 abdominal KUB shows nonspecific nonobstructive bowel gas pattern. CT abdomen and pelvis as described above also shows dilated small bowel extending to the ileostomy. DVT prophylaxis Lovenox Discharge Planning Patient not cleared medically -Pending PEG tube placement, now with sepsis, H, Pseudomonas UTI and Pseudomonas bacteremia. Patient with worsening clinical status and hypoxemia. The patient to do it further than then will need to be transferred to the intensive care unit. Problem Qualifiers (1) Hypertension: Qualified Codes: I10 - Essential (primary) hypertension Chad Marrero MD Aug 08, 2017 14:26
[2017-08-08] MEDS ORDERED: PHYTONADIONE INJ 10 MG in SODIUM CHLORIDE 0.9% INJ 50 ML IV ONE (14:30)
[2017-08-08] MEDS: PIPERACIL-TAZO 3.375 GM PREMIX 50 ML IV SCH ×2 (14:48→17:14)
[2017-08-08] MEDS ORDERED: methylPREDNISolone SOD SUCC 125 MG/2 ML VIAL IV PUSH ONE (16:15)
[2017-08-08] MEDS ORDERED: FUROSEMIDE 40 MG/4 ML VIAL IV PUSH ONE ×2 (16:15→19:00)
--- NOTE | 2017-08-08 16:15 | HHI.PR ---
Subjective Remarks Rapid response team called. I attended the call as well. [employer] old secondary to patient becoming more hypoxemic, down into the 80s and requiring to be placed on a nonrebreather mask. His current oxygen saturations are 92% on 100% nonrebreather mask. Patient is awake and alert. Patient is in moderate to severe respiratory distress with tachypnea and positive use of accessory muscles of respiration including intercostal retractions. Lung exam shows diffuse bilateral expiratory wheezing, no crackles or rhonchi auscultated. Abdomen is soft, nontender nondistended. There is no edema in bilateral lower extremities. The patient has acute hypoxemic respiratory failure. I will administered IV steroids with IV Solu-Medrol 125 minutes IV once and Solu-Medrol 60 minutes IV every 6 hours for suspected COPD exacerbation given the patient is a current smoker. The patient does not have history of COPD. Will also give formula grams IV Lasix once. The patient will be transferred to intensive care unit and equipment tester consult will be placed. Chest x-ray had been ordered earlier, however I do not see an image at this point. Objective Vitals Vital Signs Date Time Temp Pulse Resp B/P (MAP) Pulse Ox O2 Delivery O2 Flow Rate FiO2 08/08/17 12:00 98.0 100 21 121/55 (77) 91 08/08/17 11:15 90 Simple Mask 10.00 08/08/17 08:13 92 Nasal Cannula 6.00 08/08/17 08:00 97.3 96 21 120/55 (76) 84 08/08/17 05:35 98.4 98 20 128/67 (87) 92 08/07/17 20:00 Simple Mask 5.00 08/07/17 20:00 92 Simple Mask 10.00 08/07/17 20:00 97.8 95 20 117/58 (77) 93 08/07/17 16:14 97 Simple Mask 10.00 I/O 08/07/17 08/07/17 08/07/17 08/08/17 08/08/17 08/08/17 07:00 15:00 23:00 07:00 15:00 23:00 Intake Total 0 ml 258 ml 2658 ml 1100 ml Output Total 50 ml 300 ml 1175 ml 400 ml Balance -50 ml -42 ml 1483 ml 700 ml Intake Oral 0 ml 0 ml 0 ml IV Total 258 ml 2658 ml 1100 ml Output Urine Total 50 ml 850 ml Gastric Drainage Total 250 ml 325 ml 400 ml Drainage Total 50 ml # Voids 2 # Bowel Movements 0 0 0 Result Diagram: 08/08/17 1105 08/08/17 1105 Objective Remarks GENERAL: NAD, A&Ox3 HEAD: Normocephalic. NECK: Supple, trachea midline. No lymphadenopathy. EYES: No scleral icterus. No injection or drainage. CARDIOVASCULAR: Regular rate and rhythm without murmurs, gallops, or rubs. RESPIRATORY: Breath sounds equal bilaterally. No accessory muscle use. GASTROINTESTINAL: Abdomen soft, distended, non tender, bowel sounds present but sluggish. MUSCULOSKELETAL: No cyanosis, or edema. Sacral ulcer has wound VAC in place. SKIN: Warm and dry. NEURO: No focal neurological deficitis. PSYCH: Flattened affect. Date of Insertion: Jun 18, 2017 Side: Left Location: Internal A/P Problem List: (1) Nausea & vomiting ICD Code: R11.2 - Nausea with vomiting, unspecified Status: Acute (2) Tachycardia ICD Code: R00.0 - Tachycardia, unspecified Status: Acute (3) Hypertension ICD Code: I10 - Essential (primary) hypertension Status: Chronic (4) Leukocytosis ICD Code: D72.829 - Elevated white blood cell count, unspecified Status: Acute (5) Acute kidney injury ICD Code: N17.9 - Acute kidney failure, unspecified Status: Resolved (6) Cancer of rectum ICD Code: C20 - Malignant neoplasm of rectum (7) 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 Code: Z93.2 - Ileostomy status Status: Chronic (8) Sepsis ICD Code: A41.9 - Sepsis, unspecified organism Status: Acute (9) Pseudomonas septicemia ICD Code: A41.52 - Sepsis due to Pseudomonas Status: Acute (10) Pseudomonas urinary tract infection ICD Code: N39.0 - Urinary tract infection, site not specified; B96.5 - Pseudomonas (aeruginosa) (mallei) (pseudomallei) as the cause of diseases classified elsewhere Status: Acute (11) Hyperchloremic metabolic acidosis ICD Code: E87.2 - Acidosis Status: Acute Assessment and Plan 67 year-old male admitted with respiratory failure secondary to pneumonia and COPD exacerbation. Prolonged time on vent, patient now has decubitus ulcer. Status post wound VAC placement. Acute respiratory failure/ Pseudomonal pneumonia/ Pseudomonas bacteremia/ COPD with exacerbation Patient was admitted to the intensive care unit. Initially intubated and later extubated on 07/06/17. ID consulted on following. - Continue bronchodilators, inhaled steroids and mucolytic's. - Continue incentive spirometry. - d/c prednisone 07/31. - continue PT/ OT. - s/p IV vancomycin and cefepime per infectious disease 08/06 new LLL infiltrate. Continue IV Vancomycin and IV Cefepime resumed. Add IV Flagy to cover for possible aspiration. 08/07 20 antibiotics as per the ID recommendations. Continue IV vancomycin, IV Flagyl and IV cefepime. 08/08 patient has worsening respiratory status with increased O2 demand and hypoxemia. Continue vancomycin, started on IV Zosyn as per infectious disease. I will order a chest x-ray stat. A. fib with RVR - Follow on telemetry. - Continue by mouth Cardizem and digoxin. - Continue Lovenox. - Continue diuresis. - 08/02 Heart rate controlled. Cardiology consulted and following. - 08/08 INR therapeutic at 2.1. Will hold and administer vitamin K. Recheck INR in am. The INR should be less than 1.5 with the patient to undergo GJ tube placement. Status post left colectomy/ Colorectal cancer/ Ileus S/p diverting ileostomy, wedge resection of liver metastases and resection of the left ureter. - continue Alvimopam 12mg BID for Ileus. - Continue Han catheter. - Continue diuretics. - follow up with surgery. - PT/ OT. - 08/03 dietitian recommends meals to be set up for this patient. I will start the patient on Megace as an appetite stimulant. Nutrition support at this time is not indicated given the patient is eating more than 50% of the lower end calorie/PROM needs. - 08/[address] Tran - patient agrees to PEG tube. - 08/[address] PEG for nutritional 08/05, stomach dilated, 950 cc removed per NGT, G/J tube once ileus resolves as per GI. - 08/07 discussed case with GI PA. Patient still with high I put through NG tube. G4/J-tube once ileus resolves and there is decrease in NG tube output. The abdomen and pelvis showed diffusely dilated small bowel extending to the ileostomy. There is a small volume of free fluid in the abdomen. Abnormal airspace consolidation at the lung bases bilaterally with bilateral pleural effusions. Start PPN tonight as per colorectal surgery. 08/[address] GJ tube. However INR elevated at 2.1. I will hold Coumadin and administer vitamin K. Recheck PT/INR in a.m. C. difficile enteritis - Continue by mouth vancomycin per ID. - Diarrhea has resolved and patient is having normal bowel movements. 08/05 Continue PO Vancomycin for a total of 14 days. Sacral ulcer Plastic surgery consulted. Cleared for discharge. - Continue wound care. - pain control. - follow up with colorectal surgery. Left upper extremity thrombosis Asymptomatic. - continue prophylactic Lovenox. Follow up with hematology. Sepsis Patient tachycardic and with worsening leukocytosis. Secondary to Pseudomonas UTI, H With a left lower lobe infiltrate seen on chest x-ray. Continue IV fluids 08/06 Continue IV fluids - DC Normal saline and start Lactated Ringer's /2 hyperchloremic metabolic acidosis. Patient with worsening leukocytosis. Repeat urine culture positive for pseudomonas. Blood culture positive for pseudomonas. Fu blood cultures and sensitivities. 08/08 antibiotics as per infectious disease. IV vancomycin, IV cefepime discontinued today. Patient started on IV Zosyn. Leukocytosis Initially patient's white blood cell increased to 15 K. Patient was started on cefepime given that UA was positive for Pseudomonas UTI. Patient also has blood cultures positive for Pseudomonas as well. Patient also on IV cefepime, ID consulted. IV vancomycin added given that there was a new noticed left lower lobe infiltrate seen on x-ray obtained on 08/04/17. WBC has been trending up. IV vancomycin, IV cefepime, then IV Flagyl was added to cover for aspiration pneumonia. 08/08 leukocytosis worsening with WBC trending from 18.8 K to 23.1 K. antibiotics as per ID. IV vancomycin and IV cefepime discontinued today (08/08) and the patient start an IV Zosyn. LLL infiltrate/HCAP/Aspiration pneumonia. 08/05 Chest x-ray showed a left lower lobe infiltrate. Patient also with worsening leukocytosis but afebrile. I will start the patient on IV vancomycin and continue IV cefepime. Reconsult infectious disease given Pseudomonas bacteremia. 08/06 Given worsening leukocytosis will Add IV Flagyl to cover for possible aspiration pneumonia since patient had episode of vomiting recently. 08/07 Antibiotics as per ID. Severe protein calorie malnutrition. Patient with a BMI of 19.3 and and albumin of 1.9. Dietitian following. The patient not getting enough nutrition by mouth. Dietitian recommended to feedings with Jevity 1.5 at 80 mL's per hour 12 hours from 7 PM to 7 AM. TPN recommendations also placed. Continue Ensure 3 times a day and Alessandro twice a day for wound healing. Abdominal Ileus - 08/06 PEG tube could not be placed, NG tube placed with high NG output. Continue low wall suction as per colorectal surgery. Will check KUB and CT abdomen and pelvis with IV and oral contrast. 08/07 abdominal KUB shows nonspecific nonobstructive bowel gas pattern. CT abdomen and pelvis as described above also shows dilated small bowel extending to the ileostomy. DVT prophylaxis Lovenox Discharge Planning Patient not cleared medically -Pending PEG tube placement, now with sepsis, H, Pseudomonas UTI and Pseudomonas bacteremia. Patient with worsening clinical status and hypoxemia. The patient to do it further than then will need to be transferred to the intensive care unit. Problem Qualifiers (1) Hypertension: Qualified Codes: I10 - Essential (primary) hypertension Chad Marrero MD Aug 08, 2017 16:15
[2017-08-08 16:29] LABS: BLOOD GAS BASE EXCESS -2.3 mmol/L (-2-2); BLOOD GAS CARBOXYHEMOGLOBIN 1.8 % (0-4); BLOOD GAS HCO3 21 mmol/L (22-26); BLOOD GAS METHEMOGLOBIN 0.9 % (0-2); BLOOD GAS O2 HGB SATURATION 86 % (90-100); BLOOD GAS OXYGEN CONTENT 11.9 Vol % (12.0-20.0); BLOOD GAS PCO2 31 mmHg (38-42); BLOOD GAS PO2 55 mmHg (61-120); BLOOD GAS TOTAL HGB 9.9 G/DL (12.0-16.0); TEMP CORR TO 98.6
[2017-08-08 16:30] LABS: CRITICAL VALUE YES; LITER FLOW 15 L/M
[2017-08-08 16:31] LABS: DRAW SITE RT RADIAL; FIO2 100 %; NUMBER OF ARTERIAL PUNCTURES 1; STAT YES; ULNAR PULSE PRESENT
[2017-08-08] MEDS: methylPREDNISolone SOD SUCC 125 MG/2 ML VIAL IV PUSH SCH (17:13)
--- NOTE | 2017-08-08 18:26 | RADRPT ---
EXAM DATE/TIME: 08/08/2017 17:51 [facility] COMPARISON: CHEST SINGLE AP, August 04, 2017, 14:25. INDICATIONS : Cough. MEDICAL HISTORY : Hypertension. Hypercholesterolemia. Rectal/colon cancer. SURGICAL HISTORY : Appendectomy. Colon resection. Kidney surgery. ENCOUNTER: Subsequent ACUITY: 1 week PAIN SCORE: 0/10 LOCATION: Bilateral chest FINDINGS: Diffuse infiltrates are noted bilaterally suggesting moderate to severe pulmonary edema versus pneumo [place]. Clinical correlation is recommended. A nasogastric tube has its tip below the diaphragm. The hea rt is stable. CONCLUSION: Diffuse infiltrates bilaterally suggesting moderate to severe pulmonary edema versus pneumonia. Clini deepthi correlation is recommended. Yefri Israel MD on August 08, 2017 at 18:22 Board Certified Radiologist. This report was verified electronically.
--- NOTE | 2017-08-08 18:55 | HHI.CCPN ---
Subjective Remarks/Hospital Course The patient is a 67-year-old male with past medical history of hypertension, metastatic colon cancer, tobacco abuse, who, about 3 weeks ago underwent low anterior resection with low colorectal anastomosis, diverting ileostomy, and resection of a segment of the left ureter with ureteral anastomosis and double- J stent placement. He presented yesterday with 5 day history of abdominal discomfort and increasing weakness. No history of high output from ileostomy. He was admitted to the colorectal surgery for dehydration and probable UTI. He was placed on ciprofloxacin and IV hydration. According to Dr. Geiger's note it was difficult dissection/resection colon mass because of the pelvic sidewall adherence and the adherence to the left ureter. A portion of ureter was resected due to possibility of tumor infiltration, and Dr. Augustine Pelayo re- anastomosed the ureter and placed left-sided double-J stent. Also 1 cm hepatic metastasis in his liver that was excised. Hospitalist consultation was requested for medical management and evaluation of tachycardia today. He was seen by Dr. Jay and was placed on infusion of Cardizem for heart rate 140s. Patient became hypotensive with systolic blood pressure early 90s. Lab work showed WBC 14.5 with 44% bands, creat increase from 1.2 to 1.4 and severely increased lactate at 8 from admission lactate of 2.6. CT of the abdomen pelvis done yesterday showed probable small bowel ileus. I evaluated the patient in the ICU. He is tachycardic in 140s, hypotensive and systolic blood pressure in mid 80s. Clinically appears very dehydrated, an NG tube was placed with approximately 3 L of some coffee-ground output. ABG shows a base excess of -10 and bicarbonate 12. I have ordered 4 liter normal saline boluses start 1 amp of bicarbonate, discontinued the LR infusion, and started bicarb gtt. Discontinue ciprofloxacin, started Zosyn every 6 hours, vancomycin 1 g 1. His elevated lactic acid and bandemia most likely secondary to severe sepsis, ileus, and severe dehydration. Serial lactate is ordered SUBJ 06/19: Lactic acid remains elevated at 6.6 despite getting 9 L of crystalloid boluses in last 24 hours. Tachycardia has improved heart rate in 110s. Remains on vasopressin at 0.04 units/min. Urine output almost 1200 mL overnight, OGT initial output was almost 3 L when placed yesterday a.m. Overnight had 550 mL of greenish brown fluid output. EGD pending today rule out gastric ischemia per Dr. Romero. Apparently Flex sig was negative post op in Dr. Geiger's office 06/20: Developed A. fib with RVR. Heart rate 200. Hemodynamically unstable, synchronized cardioversion attempted by Dr. Morales 100 200 J. Given 3 g mag sulfate and 80 mEq KCl 1, 0.5 digoxin 1 and started on amiodarone and Giorgio- Synephrine. Intubated due to hemodynamic instability. Currently remains sedated. Currently on Giorgio-Synephrine 80 mcg/m, and amiodarone. CT chest abdomen pelvis again confirms gastric and small bowel distention/ileus. UO 1800 ml in 24 hours 06/21: Remains critically ill, intubated sedated, on 100 mcg/min neosynpehrine. HR better controlled. NG output 1500, UO >1.4L. Am labs pending. Ileostomy sample positive for C Diff on PO vanc IV Flagyl. 06/22: Remains intubated sedated. Urine output 3000 mL with Bumex. NGT [address] Geiger did colonoscopy which was normal. Ileoscopy showed pseudomembranous colitis. Currently on 200 mcg/min of neosynephrine. Afib with RVR HR in 140's 06/23: Remains intubated sedated, remains in atrial fibrillation with RVR. Still requiring high doses of Giorgio-Synephrine at 190 mcg/min. UO 2.5L. chest x- ray showed bilateral large effusions. KUB shows improving small bowel distention. WBC count is slightly improved 06/24: Unable to control HR. Repeat shock x3 today. remains in atrial fibrillation with RVR rates 160-170 intermittently. Remains on amiodarone but will discontinued due to elevation of liver enzymes AST 546 ALT 158. (GI notified). Start Cardizem infusion and also give Surjit 0.5 mg 1. Platelet count continues to drop from 67 to today 45. Hematology following will start of Argatroban today. Creatinine has slightly increased to 1.3 to will DC Bumex infusion 06/25: Patient remains intubated sedated critically ill. Heart rate controlled for the first time since atrial fibrillation started. Heart rate remains 80- 90. Urine output 1200 mL in 24 hours but BUN/creatinine increasing 44/1.7. I will hydrate with 50 mL/hr normal saline for 24 hours. Transaminitis increasing AST 1300 ALT 386. Ultrasound of the liver unremarkable GI following 06/26: PTT elevated due to Argatorban/Liver failure. Dr. Hurley has DCd argatroban. SMILEY pending. Pl count is 21. Currently in sinus rhythm on Cardizem infusion. Not on any pressors. Creatinine improved to 1.2. Urine output adequate. Becomes very tachypneic on attempted CPAP. Discussed with Dr. Geiger Will Start Trickle Tube Feeds 06/27: no improvements. off pathway. thrombocytopenia persists. unable to wean from mechanical ventilation. neuro exam poor. will likely need trach. 06/28: platelets worse today. SMILEY not resulted yet. failing SBT and mental status poor. poor prognosis. will need trach and LTAC placement. 06/29: Tmax 101. Currently 99.6. Tolerating trickle tube feeds. Continues to fail spontaneous breathing trials. 06/30: Lasted 1 hour spontaneous breathing trial this AM. 2.5 hours this afternoon. Currently afebrile. Hemoglobin remained stable. 07/01: lasted 4 hours on SBT, except 15 of pressure support, so not ready clinically for extubation, and even after only 4 hours, tired out and became hypoxic and tachypneic. more awake today and following commands. will likely need tracheostomy. 07/02: new fever today, but wbc normal. per ID, will culture and observe, continue flagyl/PO vanc. otherwise no changes. no improvements. 07/03: pseudomonas in sputum and urine. increase in cough and secretions. ID following and added cefepime. still weak and failing SBTs for hypoxia and tachypnea. needs tracheostomy. will need long-term rehab and likely LTAC. 07/04: Wakes up easily, follows commands. On 5 mg/hr versed. CXR pending. UO adequate. Resume SBT. Significant weight gain. approx 15 kg up. Give Bumex 2 mg IV x1 07/05: Patient is intubated sedated with 50 g per hour of fentanyl. Urine output 3 L in [address] on scheduled Bumex. Tolerating CPAP at 15/5. bring in Viibryd, which apparently patient had been on for long time. I have resumed it. 07/06: Tolerating CPAP 10/5 better today, Wakes up and following commands. Good UO with Bumex. Chest x-ray basilar opacities essentially unchanged. Increase IV Bumex to 1 mg every 12 07/07: Extubated yesterday tolerating well. Slightly tachypneic but maintain oxygen saturation and no subjective shortness of breath. Urine output remains excellent on Bumex, 2.9L in 24 hours 07/08: Lying on bed breathing comfortably urine output excellent with increased Bumex dose. 5.8 L in 24 hours. WBC count stable. Increase activity up to stretcher chair today 07/09: Tolerating by mouth diet. Eating atleast 50%. TPN reduced by half yesterday. UO remains excellent with diuresis. Attempt TPN wean off today. Breathing comfortably except intermittent tachypnea. 07/10: Appetite better, breathing more comfortably. Off TPN. UO remains excellent. Platelet count slightly dropped to 46 from 49. I will continue steroids at Solu-Medrol 20 mg IV every 12, taper only very slowly 07/11: Afebrile. Resting comfortably in bed. On nasal cannula. Reviewed vascular note does not want sacral decubitus debridement/ Subjective RECONSULT NOTE : 08/08: This is a patient well-known to the [facility] service. In brief this is a 67-year-old male with metastatic colon cancer status post colectomy with end ileostomy. He originally presented to the hospital with severe C. difficile ileitis and septic shock. He had a prolonged mechanical ventilation and ICU course. 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 Most recently has been on the floor and has had recurrent ileus. Over the last 3 days per nursing charting he is proximally 7 L positive as well as being 3 kg up from his weight a few days ago. His BNP is 245. He complains of worsening SOB and increasing oxygen requirement up to nonrebreather. On my evaluation this evening, he is tachypneic and dyspneic and respiratory distress on a nonrebreather. SPO2 89%. He denies chest pain, abdominal pain, nausea, vomiting. Per report, he did vomit a few times earlier today, and there is a high clinical suspicion by the hospitalist service that he had an aspiration event. He has an NG tube in place to suction. His most recent urine culture data suggests that his pseudomonas is now resistant to cefepime. For this reason infectious disease discontinued cefepime and started Zosyn today. Chest x-ray demonstrates bilateral patchy infiltrates either suggestive of volume overload or bilateral multifocal pneumonia. Limited review systems is otherwise negative unless stated above. For the remaining past medical history the patient, please see our [facility] consultation note from 06/18/17. Objective Vital Signs Date Time Temp Pulse Resp B/P (MAP) Pulse Ox O2 Delivery O2 Flow Rate FiO2 08/08/17 16:00 97.9 97 20 128/71 (90) 90 08/08/17 16:00 15.00 100 08/08/17 11:15 Simple Mask Intake and Output 08/08/17 08/08/17 08/09/17 08:00 16:00 00:00 Intake Total 1100 ml Output Total 400 ml Balance 700 ml Result Diagram: 08/08/17 1105 08/08/17 1105 Other Results Laboratory Tests Test 08/08/17 16:15 Blood Gas Puncture Site RT RADIAL Blood Gas Patient Temperature 98.6 Blood Gas HCO3 21 mmol/L (22-26) Blood Gas Base Excess -2.3 mmol/L (-2-2) Blood Gas Oxygen Saturation 86 % (90-100) Arterial Blood pH 7.45 (7.380-7.420) Arterial Blood Partial Pressure CO2 31 mmHg (38-42) Arterial Blood Partial Pressure O2 55 mmHg (61-120) Arterial Blood Oxygen Content 11.9 Vol % (12.0-20.0) Arterial Blood Carboxyhemoglobin 1.8 % (0-4) Arterial Blood Methemoglobin 0.9 % (0-2) Blood Gas Hemoglobin 9.9 G/DL (12.0-16.0) Oxygen Delivery Device Non-Rebreathing Mask Blood Gas Liter Flow 15 L/M Blood Gas Inspired Oxygen 100 % Imaging Last Impressions Chest X-Ray 07/10/17 0600 Signed Impressions: Service Date/Time: Monday, July 10, 2017 04:39 - CONCLUSION: No significant change with persistent bilateral pulmonary parenchymal opacity with lower lung zone predominance likely worsening pulmonary edema and bilateral pleural effusions. Luis Armando Michel MD Abdomen X-Ray 07/06/17 0000 Signed Impressions: Service Date/Time: Thursday, July 06, 2017 13:44 - CONCLUSION: 1. Gaseous distention of multiple bowel loops. This has slightly improved. 2. Left-sided nephroureteral stent in good position. Sarwat Suarez MD Liver Ultrasound 06/24/17 Signed Impressions: Service Date/Time: Saturday, June 24, 2017 16:38 - CONCLUSION: 1. Small volume ascites. 2. Small right effusion. Pierce Ospina Jr., MD Upper Extremity Ultrasound 06/23/17 Signed Impressions: Service Date/Time: June 20:03 - CONCLUSION: Noncompressibility right cephalic vein and left basilic vein consistent with venous thrombosis Trav Hsieh MD Lower Extremity Ultrasound 06/23/17 Signed Impressions: Service Date/Time: June 20:16 - CONCLUSION: Normal examination. No evidence DVT Trav Hsieh MD Chest CT 06/20/17 Signed Impressions: Service Date/Time: Tuesday, June 20, 2017 07:42 - CONCLUSION: 1. Bilateral effusions and consolidative changes in both lung bases. Bao Lora MD Abdomen/Pelvis CT 06/20/17 Signed Impressions: Service Date/Time: Tuesday, June 20, 2017 07:39 - CONCLUSION: 1. Dilated stomach and multiple dilated loops of small bowel, likely ileus. 2. No definite gastric volvulus. 3. Fat containing right inguinal hernia which also contains small portion of the urinary bladder and minimal fluid. 4. Left-sided nephroureteral stent in good position. 5. Bibasilar consolidation and small pleural effusions. Sarwat Suarez MD Objective Remarks GENERAL: 67-year-old male lying on bed, in respiratory distress, on nonrebreather SKIN: Warm and dry. HEENT: Normal cephalic. Atraumatic. Extraocular muscles intact. NECK: The neck is supple. Trachea is midline. Positive JVD. CHEST: Bilateral coarse breath sounds. Nonrebreather. SPO2 89%. Tachypneic CVS: Normal rate, regular rhythm.. ABDOMEN: Abdomen is soft. Ileostomy is functioning well. EXTREMITIES: No pedal edema or cyanosis. NEURO: Alert awake. Moves all extremities, following commands. No focal deficits. A/P Assessment and Plan Assessment: This is a 67-year-old male with colon cancer and recurrent pseudomonal infections who presents with recurrent respiratory distress, acute hypoxic respiratory failure, which is either volume overload and pulmonary edema versus healthcare associated aspiration pneumonia. If possible we will try to avoid intubation given his prolonged course and a repeat intubation with mechanical ventilation may prove to be fatal at this point for this patient. We will start with high flow nasal cannula. BiPAP is relatively contraindicated given his ileus and recent vomiting. If we fail high flow nasal cannula we will proceed with intubation. Agree with coverage with Zosyn, particularly covering not only antipseudomonal coverage as well as aspiration coverage. Agree with forced diuresis. Critically ill and in acute respiratory decline from baseline. If we do not change the course he may end up intubated. Active Problems: Acute hypoxemic respiratory failure - new, severe HCAP Pseudomonas Pneumonia COPD Pulmonary Edema Acute intravascular volume overload Aspiration pneumonia s/p Partial resection of the left ureter with anastomosis and placement of double-J stent Plan: Admit to ICU Continue IV Zosyn Follow-up pancultures Forced diuresis High flow nasal cannula, low threshold for intubation mechanical ventilation. Relative contraindication of BiPAP being high aspiration risk NG tube to low wall suction Appreciate ID involvement This patient remains critically ill with one or more organ systems which are or may become a threat to life. I have spent in excess of 57 minutes discontinuously in the care and management of this patient. This time is exclusive of procedures, and includes, but is not limited to, evaluation of the patient, review of the medical record, discussions with family, consultants, nursing staff, or respiratory therapy, and documentation in the medical record. Michi Child MD Aug 08, 2017 18:55
[2017-08-08] MEDS: FAT EMULSION 20% INJ 250 ML (@10 mls/hr) IV SCH (20:25)
[2017-08-08] MEDS: CLINIMIX E 4.25/5 1000 mL- </= 42 mls/hr IV SCH ×3 (20:25)
[2017-08-08] MEDS: VIIBRYD 40 MG PO SCH (20:26)
[2017-08-08] MEDS: TAMSULOSIN HCL 0.4 MG CAP PO SCH (20:27)
[2017-08-09] VITALS (11 sets, daily range): BP systolic 90–125; BP diastolic 50–68; PULSE 76–115; RESP 17–25; TEMP 97.4–98.5; O2SAT 88–100
[2017-08-09] MEDS: methylPREDNISolone SOD SUCC 125 MG/2 ML VIAL IV PUSH SCH ×4 (00:27→18:39)
[2017-08-09] MEDS: oxyCODONE/ACETAMINOPHEN 5 MG/325 MG TAB PO PRN (00:28)
[2017-08-09] MEDS: PIPERACIL-TAZO 4.5 GM PREMIX 100 ML IV SCH ×4 (00:28→18:39)
[2017-08-09] MEDS: DILTIAZEM HCL 60 MG TAB PO SCH ×4 (00:28→18:40)
[2017-08-09] MEDS: metroNIDAZOLE 500 MG INJ 100 ML IV SCH ×3 (01:30→18:40)
[2017-08-09] MEDS ORDERED: PHARMACY ORDERED LAB ONE (01:45)
[2017-08-09] MEDS: RESP: ALBUTEROL 1.25 MG/3 ML NEB (SCH) NEB ×4 (03:14→19:38)
--- NOTE | 2017-08-09 04:52 | RADRPT ---
EXAM DATE/TIME: 08/09/2017 03:49 [facility] COMPARISON: ABDOMEN KUB ONLY, August 06, 2017, 21:02. INDICATIONS : Follow up ileus. MEDICAL HISTORY : Hypertension. Hypercholesterolemia. Rectal/colon cancer. SURGICAL HISTORY : Appendectomy. Colon resection. Kidney surgery. ENCOUNTER: Subsequent ACUITY: 1 week PAIN SCORE: Non-responsive. LOCATION: abdomen. FINDINGS: A single AP supine view of the abdomen and pelvis was obtained. Patient is again noted to be mildly r otated. The left ureteral stent catheter remains in place. No definite renal or ureteral calculi are visualized. An ostomy remains in the right lower quadrant. There are several loops of mildly prominen t air-containing small bowel in the midabdomen without significant change. There is no evidence of fr ee air. The nasogastric tube remains in place. CONCLUSION: 1. Nonspecific bowel gas pattern without change. 2. Left ureteral stent catheter remains in place. Norman Mitchell MD on August 09, 2017 at 4:48 Board Certified Radiologist. This report was verified electronically.
--- NOTE | 2017-08-09 04:53 | RADRPT ---
EXAM DATE/TIME: 08/09/2017 03:53 [facility] COMPARISON: CHEST SINGLE AP, August 08, 2017, 17:51. INDICATIONS : Shortness of breath. MEDICAL HISTORY : Hypertension. Hypercholesterolemia. Rectal/colon cancer. SURGICAL HISTORY : Appendectomy. Colon resection. Kidney surgery. ENCOUNTER: Subsequent ACUITY: 1 week PAIN SCORE: Non-responsive. LOCATION: Bilateral chest FINDINGS: A single AP portable semierect view of the chest was obtained and demonstrates a nasogastric tube in place. There is been interval improvement in the bilateral coarse pulmonary infiltrates with moderate residual. The heart size remains within normal limits. There is no effusion. CONCLUSION: Interval improvement in bilateral pulmonary infiltrates. Norman Mitchell MD on August 09, 2017 at 4:50 Board Certified Radiologist. This report was verified electronically.
[2017-08-09] MEDS: METOCLOPRAMIDE HCL 10 MG/2 ML VIAL IV PUSH SCH ×3 (05:50→21:40)
[2017-08-09 06:56] LABS: AUTOMATED NEUTROPHIL # 15.4 TH/MM3 (1.8-7.7); BASOPHIL # 0.1 TH/MM3 (0-0.2); BASOPHIL % 0.8 % (0.0-2.0); HEMO FLAGS DIFF FINAL; LYMPH % 2.3 % (9.0-44.0); LYMPHOCYTE # 0.4 TH/MM3 (1.0-4.8); MEAN CELL VOLUME 95.8 FL (80.0-100.0); MEAN CORPUSCULAR HEMOGLOBIN 29.3 PG (27.0-34.0); MEAN CORPUSCULAR HGB CONC 30.6 % (32.0-36.0); MONO % 2.3 % (0.0-8.0); NEUT % 94.6 % (16.0-70.0); PLATELET COUNT 295 TH/MM3 (150-450); RED BLOOD COUNT 3.66 MIL/MM3 (4.50-5.90); RED CELL DISTRIBUTION WIDTH 20.5 % (11.6-17.2); WHITE BLOOD COUNT 16.3 TH/MM3 (4.0-11.0)
[2017-08-09 07:20] LABS: ALKALINE PHOSPHATASE 166 U/L (45-117); ALT (GPT) 13 U/L (12-78); ANION GAP 15 MEQ/L (5-15); AST (GOT) 15 U/L (15-37); BICARBONATE 21.1 MEQ/L (21.0-32.0); BLOOD UREA NITROGEN 16 MG/DL (7-18); CHLORIDE 107 MEQ/L (98-107); GLOMERULAR FILTRATION RATE 65 ML/MIN (>89); MAGNESIUM 1.7 MG/DL (1.5-2.5); POTASSIUM 3.6 MEQ/L (3.5-5.1); SODIUM (NA) 143 MEQ/L (136-145); TOTAL BILIRUBIN ADULT 1.1 MG/DL (0.2-1.0)
[2017-08-09] MEDS: ENOXAPARIN SODIUM 40 MG/0.4 ML SYRINGE SQ SCH (09:00)
[2017-08-09] MEDS: BUDESONIDE-FORMOTEROL 160/4.5 MCG INHALER INH SCH ×2 (09:00→20:17)
[2017-08-09] MEDS: PANTOPRAZOLE SOD 40 MG DELAYED RELEASE TAB PO SCH (09:00)
[2017-08-09] MEDS: COLLAGENASE OINT 30 GM TUBE TOPICAL SCH (09:00)
[2017-08-09] MEDS: DIGOXIN 0.125 MG TAB PO SCH (09:16)
[2017-08-09] MEDS: VANCOMYCIN 500 MG VIAL (FOR ORAL USE ONLY) PO SCH ×4 (09:16→20:17)
[2017-08-09] MEDS: INSULIN ASPART SUPPLEMENTAL SCALE SQ SCH ×4 (09:17→21:40)
[2017-08-09] MEDS: oxyCODONE/ACETAMINOPHEN 7.5 MG/325 MG TAB PO PRN ×2 (09:17→21:39)
[2017-08-09] MEDS: LACTATED RINGER'S 1000 ML INJ 1,000 ML IV SCH ×2 (09:24→18:40)
[2017-08-09 10:12] LABS: INTERNATIONAL NORMALIZED RATIO 1.6 RATIO; PROTHROMBIN TIME - PATIENT 16.5 SEC (9.8-11.6)
--- NOTE | 2017-08-09 10:17 | HHI.CCPN ---
Subjective Remarks/Hospital Course The patient is a 67-year-old male with past medical history of hypertension, metastatic colon cancer, tobacco abuse, who, about 3 weeks ago underwent low anterior resection with low colorectal anastomosis, diverting ileostomy, and resection of a segment of the left ureter with ureteral anastomosis and double- J stent placement. He presented yesterday with 5 day history of abdominal discomfort and increasing weakness. No history of high output from ileostomy. He was admitted to the colorectal surgery for dehydration and probable UTI. He was placed on ciprofloxacin and IV hydration. According to Dr. Geiger's note it was difficult dissection/resection colon mass because of the pelvic sidewall adherence and the adherence to the left ureter. A portion of ureter was resected due to possibility of tumor infiltration, and Dr. Augustine Pelayo re- anastomosed the ureter and placed left-sided double-J stent. Also 1 cm hepatic metastasis in his liver that was excised. Hospitalist consultation was requested for medical management and evaluation of tachycardia today. He was seen by Dr. Jay and was placed on infusion of Cardizem for heart rate 140s. Patient became hypotensive with systolic blood pressure early 90s. Lab work showed WBC 14.5 with 44% bands, creat increase from 1.2 to 1.4 and severely increased lactate at 8 from admission lactate of 2.6. CT of the abdomen pelvis done yesterday showed probable small bowel ileus. I evaluated the patient in the ICU. He is tachycardic in 140s, hypotensive and systolic blood pressure in mid 80s. Clinically appears very dehydrated, an NG tube was placed with approximately 3 L of some coffee-ground output. ABG shows a base excess of -10 and bicarbonate 12. I have ordered 4 liter normal saline boluses start 1 amp of bicarbonate, discontinued the LR infusion, and started bicarb gtt. Discontinue ciprofloxacin, started Zosyn every 6 hours, vancomycin 1 g 1. His elevated lactic acid and bandemia most likely secondary to severe sepsis, ileus, and severe dehydration. Serial lactate is ordered SUBJ 06/19: Lactic acid remains elevated at 6.6 despite getting 9 L of crystalloid boluses in last 24 hours. Tachycardia has improved heart rate in 110s. Remains on vasopressin at 0.04 units/min. Urine output almost 1200 mL overnight, OGT initial output was almost 3 L when placed yesterday a.m. Overnight had 550 mL of greenish brown fluid output. EGD pending today rule out gastric ischemia per Dr. Romero. Apparently Flex sig was negative post op in Dr. Geiger's office 06/20: Developed A. fib with RVR. Heart rate 200. Hemodynamically unstable, synchronized cardioversion attempted by Dr. Morales 100 200 J. Given 3 g mag sulfate and 80 mEq KCl 1, 0.5 digoxin 1 and started on amiodarone and Giorgio- Synephrine. Intubated due to hemodynamic instability. Currently remains sedated. Currently on Giorgio-Synephrine 80 mcg/m, and amiodarone. CT chest abdomen pelvis again confirms gastric and small bowel distention/ileus. UO 1800 ml in 24 hours 06/21: Remains critically ill, intubated sedated, on 100 mcg/min neosynpehrine. HR better controlled. NG output 1500, UO >1.4L. Am labs pending. Ileostomy sample positive for C Diff on PO vanc IV Flagyl. 06/22: Remains intubated sedated. Urine output 3000 mL with Bumex. NGT [address] Geiger did colonoscopy which was normal. Ileoscopy showed pseudomembranous colitis. Currently on 200 mcg/min of neosynephrine. Afib with RVR HR in 140's 06/23: Remains intubated sedated, remains in atrial fibrillation with RVR. Still requiring high doses of Giorgio-Synephrine at 190 mcg/min. UO 2.5L. chest x- ray showed bilateral large effusions. KUB shows improving small bowel distention. WBC count is slightly improved 06/24: Unable to control HR. Repeat shock x3 today. remains in atrial fibrillation with RVR rates 160-170 intermittently. Remains on amiodarone but will discontinued due to elevation of liver enzymes AST 546 ALT 158. (GI notified). Start Cardizem infusion and also give Surjit 0.5 mg 1. Platelet count continues to drop from 67 to today 45. Hematology following will start of Argatroban today. Creatinine has slightly increased to 1.3 to will DC Bumex infusion 06/25: Patient remains intubated sedated critically ill. Heart rate controlled for the first time since atrial fibrillation started. Heart rate remains 80- 90. Urine output 1200 mL in 24 hours but BUN/creatinine increasing 44/1.7. I will hydrate with 50 mL/hr normal saline for 24 hours. Transaminitis increasing AST 1300 ALT 386. Ultrasound of the liver unremarkable GI following 06/26: PTT elevated due to Argatorban/Liver failure. Dr. Hurley has DCd argatroban. SMILEY pending. Pl count is 21. Currently in sinus rhythm on Cardizem infusion. Not on any pressors. Creatinine improved to 1.2. Urine output adequate. Becomes very tachypneic on attempted CPAP. Discussed with Dr. Geiger Will Start Trickle Tube Feeds 06/27: no improvements. off pathway. thrombocytopenia persists. unable to wean from mechanical ventilation. neuro exam poor. will likely need trach. 06/28: platelets worse today. SMILEY not resulted yet. failing SBT and mental status poor. poor prognosis. will need trach and LTAC placement. 06/29: Tmax 101. Currently 99.6. Tolerating trickle tube feeds. Continues to fail spontaneous breathing trials. 06/30: Lasted 1 hour spontaneous breathing trial this AM. 2.5 hours this afternoon. Currently afebrile. Hemoglobin remained stable. 07/01: lasted 4 hours on SBT, except 15 of pressure support, so not ready clinically for extubation, and even after only 4 hours, tired out and became hypoxic and tachypneic. more awake today and following commands. will likely need tracheostomy. 07/02: new fever today, but wbc normal. per ID, will culture and observe, continue flagyl/PO vanc. otherwise no changes. no improvements. 07/03: pseudomonas in sputum and urine. increase in cough and secretions. ID following and added cefepime. still weak and failing SBTs for hypoxia and tachypnea. needs tracheostomy. will need long-term rehab and likely LTAC. 07/04: Wakes up easily, follows commands. On 5 mg/hr versed. CXR pending. UO adequate. Resume SBT. Significant weight gain. approx 15 kg up. Give Bumex 2 mg IV x1 07/05: Patient is intubated sedated with 50 g per hour of fentanyl. Urine output 3 L in [address] on scheduled Bumex. Tolerating CPAP at 15/5. bring in Viibryd, which apparently patient had been on for long time. I have resumed it. 07/06: Tolerating CPAP 10/5 better today, Wakes up and following commands. Good UO with Bumex. Chest x-ray basilar opacities essentially unchanged. Increase IV Bumex to 1 mg every 12 07/07: Extubated yesterday tolerating well. Slightly tachypneic but maintain oxygen saturation and no subjective shortness of breath. Urine output remains excellent on Bumex, 2.9L in 24 hours 07/08: Lying on bed breathing comfortably urine output excellent with increased Bumex dose. 5.8 L in 24 hours. WBC count stable. Increase activity up to stretcher chair today 07/09: Tolerating by mouth diet. Eating atleast 50%. TPN reduced by half yesterday. UO remains excellent with diuresis. Attempt TPN wean off today. Breathing comfortably except intermittent tachypnea. 07/10: Appetite better, breathing more comfortably. Off TPN. UO remains excellent. Platelet count slightly dropped to 46 from 49. I will continue steroids at Solu-Medrol 20 mg IV every 12, taper only very slowly 07/11: Afebrile. Resting comfortably in bed. On nasal cannula. 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 In brief this is a 67-year-old male with metastatic colon cancer status post colectomy with end ileostomy. He originally presented to the hospital with severe C. difficile ileitis and septic shock. He had a prolonged mechanical ventilation and ICU course. 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 Most recently has been on the floor and has had recurrent ileus. Over the last 3 days per nursing charting he is proximally 7 L positive as well as being 3 kg up from his weight a few days ago. His BNP is 245. He complains of worsening SOB and increasing oxygen requirement up to nonrebreather. On my evaluation this evening, he is tachypneic and dyspneic and respiratory distress on a nonrebreather. SPO2 89%. He denies chest pain, abdominal pain, nausea, vomiting. Per report, he did vomit a few times earlier today, and there is a high clinical suspicion by the hospitalist service that he had an aspiration event. He has an NG tube in place to suction. His most recent urine culture data suggests that his pseudomonas is now resistant to cefepime. For this reason infectious disease discontinued cefepime and started Zosyn today. Chest x-ray demonstrates bilateral patchy infiltrates either suggestive of volume overload or bilateral multifocal pneumonia. Limited review systems is otherwise negative unless stated above. For the remaining past medical history the patient, please see our cook apprentice consultation note from 06/18/17. SUBJ 08/09: Patient lying on the bed slightly tachypneic but respiratory distress subjectively improved. On high flow nasal cannula 80% FiO2 been just weaned to 60%. Chest x-ray shows interval improvement in bilateral infiltrates received 40 mg IV Lasix yesterday. WBC count is improved from 23.1 to 16.3. KUB shows nonspecific bowel gas pattern Objective Vital Signs Date Time Temp Pulse Resp B/P (MAP) Pulse Ox O2 Delivery O2 Flow Rate FiO2 08/09/17 09:22 93 High Flow Nasal Cannula 45.00 50 08/09/17 04:00 97.5 81 17 99/59 (72) Intake and Output 08/09/17 08/09/17 08/10/17 08:00 16:00 00:00 Intake Total 300 ml 900 ml Output Total 3755 ml Balance -3455 ml 900 ml Result Diagram: 08/09/17 0600 08/09/17 0600 Other Results Laboratory Tests Test 08/08/17 16:15 Blood Gas Puncture Site RT RADIAL Blood Gas Patient Temperature 98.6 Blood Gas HCO3 21 mmol/L (22-26) Blood Gas Base Excess -2.3 mmol/L (-2-2) Blood Gas Oxygen Saturation 86 % (90-100) Arterial Blood pH 7.45 (7.380-7.420) Arterial Blood Partial Pressure CO2 31 mmHg (38-42) Arterial Blood Partial Pressure O2 55 mmHg (61-120) Arterial Blood Oxygen Content 11.9 Vol % (12.0-20.0) Arterial Blood Carboxyhemoglobin 1.8 % (0-4) Arterial Blood Methemoglobin 0.9 % (0-2) Blood Gas Hemoglobin 9.9 G/DL (12.0-16.0) Oxygen Delivery Device Non-Rebreathing Mask Blood Gas Liter Flow 15 L/M Blood Gas Inspired Oxygen 100 % Imaging Last Impressions Chest X-Ray 07/10/17 0600 Signed Impressions: Service Date/Time: Monday, July 10, 2017 04:39 - CONCLUSION: No significant change with persistent bilateral pulmonary parenchymal opacity with lower lung zone predominance likely worsening pulmonary edema and bilateral pleural effusions. Luis Armando Michel MD Abdomen X-Ray 07/06/17 0000 Signed Impressions: Service Date/Time: Thursday, July 06, 2017 13:44 - CONCLUSION: 1. Gaseous distention of multiple bowel loops. This has slightly improved. 2. Left-sided nephroureteral stent in good position. Sarwat Suarez MD Liver Ultrasound 06/24/17 0000 Signed Impressions: Service Date/Time: Saturday, June 24, 2017 16:38 - CONCLUSION: 1. Small volume ascites. 2. Small right effusion. Pierce Ospina Jr., MD Upper Extremity Ultrasound 06/23/17 0000 Signed Impressions: Service Date/Time: June 20:03 - CONCLUSION: Noncompressibility right cephalic vein and left basilic vein consistent with venous thrombosis Trav Hsieh MD Lower Extremity Ultrasound 06/23/17 0000 Signed Impressions: Service Date/Time: June 20:16 - CONCLUSION: Normal examination. No evidence DVT Trav Hsieh MD Chest CT 06/20/17 0000 Signed Impressions: Service Date/Time: Tuesday, June 20, 2017 07:42 - CONCLUSION: 1. Bilateral effusions and consolidative changes in both lung bases. Bao Lora MD Abdomen/Pelvis CT 06/20/17 0000 Signed Impressions: Service Date/Time: Tuesday, June 20, 2017 07:39 - CONCLUSION: 1. Dilated stomach and multiple dilated loops of small bowel, likely ileus. 2. No definite gastric volvulus. 3. Fat containing right inguinal hernia which also contains small portion of the urinary bladder and minimal fluid. 4. Left-sided nephroureteral stent in good position. 5. Bibasilar consolidation and small pleural effusions. Sarwat Suarez MD Objective Remarks GENERAL: 67-year-old male lying on bed, in respiratory distress, on high emily NC weaned SKIN: Warm and dry. HEENT: Normal cephalic. Atraumatic. Extraocular muscles intact. NECK: The neck is supple. Trachea is midline. Positive JVD. CHEST: Bilateral coarse breath sounds. HFNC 80% FiO2. SPO2 98%. CVS: Normal rate, regular rhythm.. ABDOMEN: Abdomen is soft. Ileostomy is functioning well. EXTREMITIES: No pedal edema or cyanosis. NEURO: Alert awake. Moves all extremities, following commands. No focal deficits. A/P Assessment and Plan Assessment: This is a 67-year-old male with colon cancer and recurrent pseudomonal infections who presents with recurrent respiratory distress, acute hypoxic respiratory failure, which is either volume overload/pulmonary edema versus healthcare associated aspiration pneumonia. If possible we will try to avoid intubation given his prolonged course, continue high flow nasal cannula. BiPAP is relatively contraindicated given his ileus and recent vomiting. If we fail high flow nasal cannula we will proceed with intubation, but currently patient is showing some signs of improvement. Agree with coverage with Zosyn, particularly covering not only antipseudomonal coverage as well as aspiration coverage. Agree with forced diuresis. Critically ill and in acute respiratory decline from baseline. If we do not change the course he may end up intubated. Active Problems: Acute hypoxemic respiratory failure - new, severe HCAP Pseudomonas Pneumonia COPD Pulmonary Edema Acute intravascular volume overload Aspiration pneumonia s/p Partial resection of the left ureter with anastomosis and placement of double-J stent Recurrent ileus Plan: Continue ICU care Continue IV Zosyn Follow-up pancultures Forced diuresis-IV Lasix 40 mg x1 07/09/17, give repeat 20 mg IV x 1 today 08/09 High flow nasal cannula, low threshold for intubation mechanical ventilation. Relative contraindication of BiPAP being high aspiration risk NG tube to low wall suction IR to place PEG tube today D/W Dr. Pelayo re: ureteral stent removal- recommended postponing until more stable Appreciate ID involvement FiO2 requirement remains high, now weaned to 60% from 80% This patient remains critically ill with one or more organ systems which are or may become a threat to life. I have spent in excess of 35 minutes discontinuously in the care and management of this patient. This time is exclusive of procedures, and includes, but is not limited to, evaluation of the patient, review of the medical record, discussions with family, consultants, nursing staff, or respiratory therapy, and documentation in the medical record. Shiva Segovia MD Aug 09, 2017 10:17
[2017-08-09] MEDS ORDERED: FUROSEMIDE 20 MG/2 ML VIAL IV PUSH ONE ×2 (10:30→14:00)
[2017-08-09] MEDS: MEGESTROL ACETATE SUSP 400 MG/10 ML CUP PO SCH (10:45)
--- NOTE | 2017-08-09 11:11 | MB ---
cc: AMY GREY DATE OF CONSULTATION 08/09/2017 REASON FOR CONSULTATION Mr. Armendariz is a pleasant 67-year-old male who is known to me. In the past, he underwent a colon resection by Dr. Geiger on May 26, 2017 and at that time the tumor was involving the left ureter and the left ureter was violated. A left double-J stent was placed over a ureteral reanastomosis of the left ureter and he has had an indwelling stent since that time. Throughout the course of his hospitalization, he has had ongoing problems. He has been in the unit and has been recently admitted for C. difficile with sepsis. He has had increasing abdominal discomfort and increasing weakness. He also recently was treated for rapid A. fib with a heart rate in the 140 and has been on a Cardizem drip. Presently, he is on 80% rebreather, but he is a alert and oriented at present. After a long discussion with the critical care team, the decision was made to not do any surgical intervention at this time to rule to remove his stent given the need to possibly intubate the patient for a stent removal on retrograde study to examine the left ureter. I will plan on this once his O2 saturation has improved and the patient appears stronger. ALLERGIES HE HAS ALLERGIES TO CODEINE. PAST MEDICAL HISTORY Medical history includes: 1. Colon cancer 2. Hypertension. PAST SURGICAL HISTORY 1. Left colectomy with coloanal anastomosis, diverting ileostomy and ureteral resection with reanastomosis with stent Insertion. 2. Wedge resection of liver metastasis. 3. Left knee surgery MEDICATIONS For medications, please refer to the chart. FAMILY HISTORY Reveals no significant family history. Denies any family history of prostate cancer. SOCIAL HISTORY Smokes a pack a day and has done so for 40 years. Denies any alcohol or drug use. REVIEW OF SYSTEMS No shortness of breath. Notes abdominal discomfort, generalized weakness is noted. Presently denies any fever or chills. Notes cough at times, but denies wheezing or shortness of breath. Denies chest pain. Denies constipation. Notes some diarrhea. Notes some urinary frequency at times and urgency. Denies joint pain or muscle aches. Denies rash or pruritus. Denies bruising. Denies headache. The remaining review of systems was performed and were negative. PHYSICAL EXAM VITAL SIGNS: Temperature presently 97.5, heart rate 81, respiratory rate 17, 99/59, 93% on FIO2 at 50% at present time. GENERAL: He is a thin 67-year-old male in no acute distress. HEENT: Normocephalic, atraumatic. Pupils equal round react to light. Extraocular movements intact. NECK: Supple. HEART: Regular rate and rhythm. LUNGS: Clear bilaterally with diminished breath sounds bilaterally. ABDOMEN: Soft. Slight tenderness is noted. Han catheter is in place. Testes are descended. EXTREMITIES: Show 1+ edema. LABORATORY VALUES White count 16.3, hemoglobin 10.7, hematocrit 35.0, platelet count 295. Sodium 143, potassium 3.6, chloride 107, CO2 21, BUN 16, creatinine 1.1, glucose of 265. Urinalysis shows large leukoesterase, 71 red cells and numerous white cells. Urine culture demonstrates Pseudomonas aeruginosa 08/04. Blood cultures are currently pending. Recent CT scan from 08/06 demonstrates diffusely dilated small bowel extending to the ileostomy, small volume of free air in the abdomen and normal air consolidation in the bases bilaterally, bilateral pleural effusions. There is an open sacral decubiti wound extending to the anterior coccyx and sacrum. ASSESSMENT This is a 67-year-old male with history of a left ureteral reanastomosis after injury with a retained stent in place with Pseudomonas UTI. Would recommend cystoscopy with stent pull in the OR and will attempt to perform under sedation if possible. We will need to verify patency of his left ureter after the stent is removed. This will be done possibly next week once his O2 sats and clinical condition has improved per recommendations from the clinical critical care team. Thank you for the consult and will follow with you. Amy MANNING /10:23 AM /10:47 AM
--- NOTE | 2017-08-09 11:21 | HHI.IDPN ---
Note Infectious Disease Note Notes reviewed. Patient anton attempt at feeding tube yesterday - unsuccessful. Awake but appears drowsy. Afebrile. Denies chills. WBC elevated. Admitted to the hospital with weakness, abdominal pain and nausea. The patient is status post anterior resection of colon and rectal areas and anastomosis along with a diverting ileostomy and also resection of a segment of left ureter with ureteral anastomosis and double-J stent placement three weeks prior. PAST MEDICAL HISTORY: 1. Hypertension. 2. Left knee surgery. 3. Metastatic colon cancer status post resection and colo-anal anastomosis and also resection and re-anastomosis of the left ureter with double-J stent placement. ALLERGIES: CODEINE. ABX: Vancomycin PO. Zosyn. Flagyl. SOCIAL HISTORY: . Positive tobacco use. No alcohol. No illicit drug use. OBJECTIVE: Vital Signs Date Time Temp Pulse Resp B/P (MAP) Pulse Ox O2 Delivery O2 Flow Rate FiO2 08/09/17 09:22 93 High Flow Nasal Cannula 45.00 50 08/09/17 04:00 97.5 81 17 99/59 (72) 100 08/09/17 01:28 18 08/09/17 00:00 97.8 115 23 101/65 (77) 93 08/08/17 20:58 92 High Flow Nasal Cannula 60.00 100 08/08/17 20:00 97.7 97 30 142/81 (101) 93 08/08/17 19:00 93 Nasal Cannula 100 Humidified 08/08/17 18:05 93 High Flow Nasal Cannula 60.00 100 08/08/17 18:00 96 100 08/08/17 17:00 89 Non-Rebreather 100 08/08/17 16:00 97.9 97 20 128/71 (90) 90 08/08/17 16:00 86 15.00 100 08/08/17 12:00 98.0 100 21 121/55 (77) 91 Laboratory Tests Test 08/08/17 11:05 08/09/17 06:00 White Blood Count 23.1 TH/MM3 16.3 TH/MM3 Red Blood Count 2.96 MIL/MM3 3.66 MIL/MM3 Hemoglobin 8.9 GM/DL 10.7 GM/DL Hematocrit 27.8 % 35.0 % Mean Corpuscular Volume 94.0 FL 95.8 FL Mean Corpuscular Hemoglobin 30.2 PG 29.3 PG Mean Corpuscular Hemoglobin Concent 32.1 % 30.6 % Red Cell Distribution Width 20.0 % 20.5 % Platelet Count 300 TH/MM3 295 TH/MM3 Mean Platelet Volume 7.7 FL 7.7 FL Neutrophils (%) (Auto) 93.5 % 94.6 % Lymphocytes (%) (Auto) 2.2 % 2.3 % Monocytes (%) (Auto) 4.2 % 2.3 % Eosinophils (%) (Auto) 0.0 % 0.0 % Basophils (%) (Auto) 0.1 % 0.8 % Neutrophils # (Auto) 21.6 TH/MM3 15.4 TH/MM3 Lymphocytes # (Auto) 0.5 TH/MM3 0.4 TH/MM3 Monocytes # (Auto) 1.0 TH/MM3 0.4 TH/MM3 Eosinophils # (Auto) 0.0 TH/MM3 0.0 TH/MM3 Basophils # (Auto) 0.0 TH/MM3 0.1 TH/MM3 CBC Comment AUTO DIFF DIFF FINAL Differential Total Cells Counted 100 Neutrophils % (Manual) 94 % Band Neutrophils % 5 % Monocytes % 1 % Neutrophils # (Manual) 22.9 TH/MM3 Differential Comment FINAL DIFF MANUAL Platelet Estimate NORMAL Platelet Morphology Comment NORMAL Laboratory Tests Test 08/08/17 11:05 08/09/17 06:00 Blood Urea Nitrogen 10 MG/DL 16 MG/DL Creatinine 0.55 MG/DL 1.12 MG/DL Random Glucose 130 MG/DL 265 MG/DL Total Protein 4.9 GM/DL 5.3 GM/DL Albumin 1.4 GM/DL 1.6 GM/DL Calcium Level 7.7 MG/DL 7.6 MG/DL Alkaline Phosphatase 150 U/L 166 U/L Aspartate Amino Transf (AST/SGOT) 14 U/L 15 U/L Alanine Aminotransferase (ALT/SGPT) 12 U/L 13 U/L Total Bilirubin 1.1 MG/DL 1.1 MG/DL Sodium Level 142 MEQ/L 143 MEQ/L Potassium Level 4.1 MEQ/L 3.6 MEQ/L Chloride Level 111 MEQ/L 107 MEQ/L Carbon Dioxide Level 21.8 MEQ/L 21.1 MEQ/L Anion Gap 9 MEQ/L 15 MEQ/L Estimat Glomerular Filtration Rate 148 ML/MIN 65 ML/MIN B-Type Natriuretic Peptide 245 PG/ML Phosphorus Level 2.5 MG/DL Magnesium Level 1.7 MG/DL Microbiology Date/Time Source Procedure Growth Status 08/08/17 19:15 Blood Peripheral Aerobic Blood Culture - Preliminary NO GROWTH IN 1 DAY Resulted 08/08/17 19:15 Blood Peripheral Anaerobic Blood Culture - Preliminary NO GROWTH IN 1 DAY Resulted 08/08/17 15:50 Blood Peripheral Aerobic Blood Culture - Preliminary NO GROWTH IN 1 DAY Resulted 08/08/17 15:50 Blood Peripheral Anaerobic Blood Culture - Preliminary NO GROWTH IN 1 DAY Resulted IMAGING: Chest X-Ray 08/09/17 0600 Signed Impressions: Service Date/Time: Wednesday, August 09, 2017 03:53 - CONCLUSION: Interval improvement in bilateral pulmonary infiltrates. Norman Mitchell MD Abdomen X-Ray 08/09/17 0600 Signed Impressions: Service Date/Time: Wednesday, August 09, 2017 03:49 - CONCLUSION: 1. Nonspecific bowel gas pattern without change. 2. Left ureteral stent catheter remains in place. Norman Mitchell MD Chest X-Ray 08/08/17 0000 Signed Impressions: Service Date/Time: Tuesday, August 08, 2017 17:51 - CONCLUSION: Diffuse infiltrates bilaterally suggesting moderate to severe pulmonary edema versus pneumonia. Clinical correlation is recommended. Yefri Israel MD Chest X-Ray 07/18/17 0000 Signed Impressions: Service Date/Time: Tuesday, July 18, 2017 16:30 - CONCLUSION: Improvement Minimal consolidation remain right base. Alfredo Lora MD FACR PHYSICAL EXAMINATION: GENERAL: No acute distress. HEENT: No icterus. Oropharynx with dry mucosa. NECK: Supple. LUNGS: Decreased breath sounds. HEART: Regular S1-S2 without murmurs, rubs or gallops. ABDOMEN: Positive bowel sounds. Soft. Non tender. EXTREMITIES: No clubbing or cyanosis, edema. SKIN: No rash. NEUROLOGIC: Nonfocal. PSYCH: Calm and cooperative. IMPRESSION: 1. Post treatment for Severe sepsis/ Bandemia. Status post recent surgery for rectal cancer and recent ureteral resection and double J ureteral stent. 2. C difficile colitis. Pseudomembranous enteritis/sepsis. 3. Acute respiratory failure. Extubated. 4. Pseudomonas pneumonia and UTI. Treated and improved. 5. Leukocytosis. 6. UTI - Pseudomonas. 7. Hypoxia - ? PNA. RECOMMENDATIONS: 1. Continue PO Vancomycin at 250 mg. 2. Continue Flagyl. 3. Continue Zosyn. 4. Follow blood culture. 5. Monitor WBC. El Espinoza MD Aug 09, 2017 11:21
[2017-08-09] MEDS: POTASSIUM CHLOR 20 MEQ PREMIX 100 ML IV SCH ×2 (11:56→14:30)
--- NOTE | 2017-08-09 13:55 | HHI.PR ---
Subjective Remarks Flash pulmonary edema yesterday secondary to increased fluids and low protein state. Better after vigorous diuresis.D/W Dr Segovia. Objective Vital Signs Date Time Temp Pulse Resp B/P (MAP) Pulse Ox O2 Delivery O2 Flow Rate FiO2 08/09/17 09:22 93 High Flow Nasal Cannula 45.00 50 08/09/17 04:00 97.5 81 17 99/59 (72) 100 08/09/17 01:28 18 08/09/17 00:00 97.8 115 23 101/65 (77) 93 08/08/17 20:58 92 High Flow Nasal Cannula 60.00 100 08/08/17 20:00 97.7 97 30 142/81 (101) 93 08/08/17 19:00 93 Nasal Cannula 100 Humidified 08/08/17 18:05 93 High Flow Nasal Cannula 60.00 100 08/08/17 18:00 96 100 08/08/17 17:00 89 Non-Rebreather 100 08/08/17 16:00 97.9 97 20 128/71 (90) 90 08/08/17 16:00 86 15.00 100 I/O 08/08/17 08/08/17 08/08/17 08/09/17 08/09/17 08/09/17 07:00 15:00 23:00 07:00 15:00 23:00 Intake Total 1100 ml 1610.2 ml 300 ml 1100 ml Output Total 400 ml 1150 ml 3755 ml Balance 700 ml 460.2 ml -3455 ml 1100 ml Intake Oral 0 ml 0 ml IV Total 1100 ml 1510.2 ml 300 ml 1100 ml Other 100 ml Output Urine Total 1150 ml 3755 ml Stool Total 0 ml Gastric Drainage Total 400 ml 0 ml 0 ml Drainage Total 0 ml 0 ml # Voids 2 # Bowel Movements 0 Result Diagram: 08/09/17 0600 08/09/17 0600 Objective Remarks VS-S Gen: Severe cachexia Resp: Breathing better Abd: Soft. Mild distention, stoma with thick stool. Non tender . Assessment and Plan Assessment and Plan Decubitus Poor nutrition. Severe deconditioning UTI again with Pseudomonas on Zosyn. C Diff negative. No diarrhea. Agrees to PEG. Needs nutrition MARY. Started PPN due to Ileus Zosyn for Pseudomonas Needs aggressive PT and Nutrition to fully heal decubitus and recover Continue PO vancomycin Should have PT everyday including weekends. Needs position changes for Pulmonary toilet Continue Roxanne Consulted Dr Pelayo to consider removing left ureteral stent. Luca Geiger MD Aug 09, 2017 13:55
[2017-08-09] MEDS ORDERED: PHYTONADIONE INJ 10 MG in DEXTROSE 5% IN WATER INJ 50 ML IV ONE ×2 (14:00)
[2017-08-09] MEDS: PANTOPRAZOLE SODIUM 40 MG VIAL IV PUSH SCH (15:00)
[2017-08-09 16:24] LABS: INTERNATIONAL NORMALIZED RATIO 1.4 RATIO; PROTHROMBIN TIME - PATIENT 13.8 SEC (9.8-11.6)
[2017-08-09] MEDS ORDERED: LORazepam 2 MG/ML VIAL ONE (16:51)
--- NOTE | 2017-08-09 17:29 | PD.RAD ---
Post Procedure Progress Note Pre Procedure Diagnosis: (1) Pseudomonas septicemia Post Procedure Diagnosis: (1) Pseudomonas septicemia Procedure Date: Aug 09, 2017 Supervising Radiologist: Eddie Saucedo Proceduralist/Assist: Angela Granados, RT(R)(CV), José Miguel Fischer RT(R) Anesthesia: Conscious Sedation Plan of Activity Patient to Unit: Critical Care Patient Condition: Poor See PACS Report for procedural detail/treatment Feeding Tube Gastrostomy Evaluation Findings: not able to perform in specials will require ct guidance Eddie Saucedo MD Aug 09, 2017 17:29
[2017-08-09] MEDS ORDERED: IOHEXOL 350 MG/ML 50 ML BTL (for RAD DIAG) OTHER ONE (17:45)
[2017-08-09] MEDS: CLINIMIX E 4.25/5 1000 mL- </= 42 mls/hr IV SCH ×3 (20:16)
[2017-08-09] MEDS: FAT EMULSION 20% INJ 250 ML (@10 mls/hr) IV SCH (20:16)
[2017-08-09] MEDS: TAMSULOSIN HCL 0.4 MG CAP PO SCH (20:17)
[2017-08-09] MEDS: VIIBRYD 40 MG PO SCH (21:00)
[2017-08-10] VITALS (12 sets, daily range): BP systolic 96–141; BP diastolic 53–58; PULSE 85–104; RESP 20–27; TEMP 97.4–99; O2SAT 90–96
[2017-08-10] MEDS: PIPERACIL-TAZO 4.5 GM PREMIX 100 ML IV SCH ×5 (00:06→23:11)
[2017-08-10] MEDS: methylPREDNISolone SOD SUCC 125 MG/2 ML VIAL IV PUSH SCH ×3 (00:07→12:11)
[2017-08-10] MEDS: DILTIAZEM HCL 60 MG TAB PO SCH ×5 (00:07→23:11)
[2017-08-10] MEDS: metroNIDAZOLE 500 MG INJ 100 ML IV SCH ×4 (01:32→23:50)
[2017-08-10] MEDS: RESP: ALBUTEROL 1.25 MG/3 ML NEB (SCH) NEB ×4 (03:47→20:20)
[2017-08-10] MEDS: METOCLOPRAMIDE HCL 10 MG/2 ML VIAL IV PUSH SCH ×3 (04:48→20:21)
[2017-08-10] MEDS: ENOXAPARIN SODIUM 40 MG/0.4 ML SYRINGE SQ SCH (08:40)
[2017-08-10] MEDS: VANCOMYCIN 500 MG VIAL (FOR ORAL USE ONLY) PO SCH ×4 (08:51→19:48)
[2017-08-10] MEDS: INSULIN ASPART SUPPLEMENTAL SCALE SQ SCH ×4 (08:51→20:20)
[2017-08-10] MEDS: PANTOPRAZOLE SODIUM 40 MG VIAL IV PUSH SCH (08:51)
[2017-08-10] MEDS: BUDESONIDE-FORMOTEROL 160/4.5 MCG INHALER INH SCH ×2 (08:52→19:47)
[2017-08-10] MEDS: DIGOXIN 0.125 MG TAB PO SCH (08:52)
[2017-08-10] MEDS: MEGESTROL ACETATE SUSP 400 MG/10 ML CUP PO SCH (08:52)
--- NOTE | 2017-08-10 09:48 | RADRPT ---
EXAM DATE/TIME: 08/09/2017 17:54 This report includes an Addendum and supersedes previous reports for this exam. [facility] COMPARISON: No previous studies available for comparison. INDICATIONS : Patient post op from low anterior colon resection. Ileus. MEDICAL HISTORY : 1. Colon ca 2. Ilieus 3. HH SURGICAL HISTORY : 1. Colon resection rectal ca 2. wedge resection of liver met. 3. Partial resection of lt ureter placment of stent ENCOUNTER: Initial ACUITY: 3 weeks PAIN SCORE: 6/10 LOCATION: abdomin FLUORO TIME: 3.6 minutes IMAGE SERIES: 0 SEDATION TIME: 30 minutes CONTRAST: 10 cc Omnipaque (iohexol) 350 MEDICATION(S): 1.) 0.25 mg lorazepam (Ativan) IV 2.) 25 mcg Fentanyl (Sublimaze) IV PROCEDURE : 1. Limited abdominal ultrasound. 2. Fluoroscopically guided gastrostomy tube placement. 3. Conscious sedation with continuous EKG and oximetry monitoring. The risks, benefits and alternatives to the procedure were explained and verbal and written consent w as obtained. The site was prepped in sterile fashion. Full sterile technique was used, including ca p, mask, sterile gloves and gown and a large sterile sheet. Hand hygiene and 2% chlorhexidine and/or betadine/alcohol prep was utilized per protocol for cutaneous antisepsis. The skin and subcutaneous tissues were infiltrated with local anesthetic solution. Sterile gel and sterile probe cover were u tilized for ultrasound guidance. Ultrasound was used to theodore the position of the liver. The stomach was insufflated with room air. An adequate window for placement of a gastrostomy tube could not be identified and procedure could not be performed. This will require CT for placement. Conscious sedation was performed with the prescribed dosages and duration as above in the presence of an independent trained radiology nurse to assist in the monitoring of the patient. EKG and oximetry remained stable throughout the procedure. The patient tolerated the procedure well and there were n o complications. The patient was sent to post anesthesia recovery in stable condition. CONCLUSION: Unsuccessful gastrostomy tube placement secondary to overlying bowel. CT scan will be required for placement Eddie Saucedo MD on August 10, 2017 at 9:45 Board Certified Radiologist. This report was verified electronically. ADDENDUM: Review of the CT scan demonstrates the anatomy would require placement between the ribs which would b e suboptimal. This was discussed with Dr. Luca Saucedo MD on August 10, 2017 at 14:11 Board Certified Radiologist. This report was verified electronically.
--- NOTE | 2017-08-10 11:40 | HHI.IDPN ---
Note Infectious Disease Note Patient is more alert. Afebrile. Denies chills. Admitted to the hospital with weakness, abdominal pain and nausea. The patient is status post anterior resection of colon and rectal areas and anastomosis along with a diverting ileostomy and also resection of a segment of left ureter with ureteral anastomosis and double-J stent placement three weeks prior. PAST MEDICAL HISTORY: 1. Hypertension. 2. Left knee surgery. 3. Metastatic colon cancer status post resection and colo-anal anastomosis and also resection and re-anastomosis of the left ureter with double-J stent placement. ALLERGIES: CODEINE. ABX: Vancomycin PO. Zosyn. Flagyl. OBJECTIVE: Vital Signs Date Time Temp Pulse Resp B/P (MAP) Pulse Ox O2 Delivery O2 Flow Rate FiO2 08/10/17 10:00 92 Nasal Cannula 50 Humidified 08/10/17 09:55 90 High Flow Nasal Cannula 40.00 50 08/10/17 09:47 90 High Flow Nasal Cannula 45.00 50 08/10/17 08:00 98.2 88 24 124/57 (79) 94 08/10/17 07:41 94 High Flow Nasal Cannula 50.00 50 08/10/17 07:00 92 Nasal Cannula 60 Humidified 08/10/17 04:00 97.4 85 23 115/55 (75) 95 08/10/17 00:00 97.6 89 23 112/54 (73) 94 08/09/17 22:39 20 08/09/17 20:00 98.5 93 25 90/57 (68) 93 08/09/17 19:39 92 High Flow Nasal Cannula 50.00 60 08/09/17 19:00 91 Nasal Cannula 60 Humidified 08/09/17 16:00 98.0 76 19 115/60 (78) 94 08/09/17 14:40 97.9 102 24 97/50 88 08/09/17 14:15 98.0 82 23 103/55 89 08/09/17 13:59 98.2 92 24 105/57 90 08/09/17 12:00 98.2 80 25 100/55 (70) 91 Laboratory Tests Test 08/09/17 06:00 White Blood Count 16.3 TH/MM3 Red Blood Count 3.66 MIL/MM3 Hemoglobin 10.7 GM/DL Hematocrit 35.0 % Mean Corpuscular Volume 95.8 FL Mean Corpuscular Hemoglobin 29.3 PG Mean Corpuscular Hemoglobin Concent 30.6 % Red Cell Distribution Width 20.5 % Platelet Count 295 TH/MM3 Mean Platelet Volume 7.7 FL Neutrophils (%) (Auto) 94.6 % Lymphocytes (%) (Auto) 2.3 % Monocytes (%) (Auto) 2.3 % Eosinophils (%) (Auto) 0.0 % Basophils (%) (Auto) 0.8 % Neutrophils # (Auto) 15.4 TH/MM3 Lymphocytes # (Auto) 0.4 TH/MM3 Monocytes # (Auto) 0.4 TH/MM3 Eosinophils # (Auto) 0.0 TH/MM3 Basophils # (Auto) 0.1 TH/MM3 CBC Comment DIFF FINAL Differential Comment Laboratory Tests Test 08/09/17 06:00 Blood Urea Nitrogen 16 MG/DL Creatinine 1.12 MG/DL Random Glucose 265 MG/DL Total Protein 5.3 GM/DL Albumin 1.6 GM/DL Calcium Level 7.6 MG/DL Phosphorus Level 2.5 MG/DL Magnesium Level 1.7 MG/DL Alkaline Phosphatase 166 U/L Aspartate Amino Transf (AST/SGOT) 15 U/L Alanine Aminotransferase (ALT/SGPT) 13 U/L Total Bilirubin 1.1 MG/DL Sodium Level 143 MEQ/L Potassium Level 3.6 MEQ/L Chloride Level 107 MEQ/L Carbon Dioxide Level 21.1 MEQ/L Anion Gap 15 MEQ/L Estimat Glomerular Filtration Rate 65 ML/MIN Microbiology Date/Time Source Procedure Growth Status 08/08/17 19:15 Blood Peripheral Aerobic Blood Culture - Preliminary NO GROWTH IN 2 DAYS Resulted 08/08/17 19:15 Blood Peripheral Anaerobic Blood Culture - Preliminary NO GROWTH IN 2 DAYS Resulted 08/08/17 15:50 Blood Peripheral Aerobic Blood Culture - Preliminary NO GROWTH IN 2 DAYS Resulted 08/08/17 15:50 Blood Peripheral Anaerobic Blood Culture - Preliminary NO GROWTH IN 2 DAYS Resulted IMAGING: Chest X-Ray 08/09/17 0600 Signed Impressions: Service Date/Time: Wednesday, August 09, 2017 03:53 - CONCLUSION: Interval improvement in bilateral pulmonary infiltrates. Norman Mitchell MD Abdomen X-Ray 08/09/17 0600 Signed Impressions: Service Date/Time: Wednesday, August 09, 2017 03:49 - CONCLUSION: 1. Nonspecific bowel gas pattern without change. 2. Left ureteral stent catheter remains in place. Norman Mitchell MD Chest X-Ray 08/08/17 0000 Signed Impressions: Service Date/Time: Tuesday, August 08, 2017 17:51 - CONCLUSION: Diffuse infiltrates bilaterally suggesting moderate to severe pulmonary edema versus pneumonia. Clinical correlation is recommended. Yefri Israel MD PHYSICAL EXAMINATION: GENERAL: No acute distress. HEENT: No icterus. Oropharynx with dry mucosa. NECK: Supple. LUNGS: Decreased clear breath sounds. HEART: Regular S1-S2 without murmurs, rubs or gallops. ABDOMEN: Positive bowel sounds. Soft. Non tender. EXTREMITIES: No clubbing or cyanosis, edema. SKIN: No rash. NEUROLOGIC: Nonfocal. PSYCH: Calm and cooperative. IMPRESSION: 1. Post treatment for Severe sepsis/ Bandemia. Status post recent surgery for rectal cancer and recent ureteral resection and double J ureteral stent. 2. C difficile colitis. Pseudomembranous enteritis/sepsis. 3. Acute respiratory failure. Extubated. 4. Pseudomonas pneumonia and UTI. Treated and improved. 5. Leukocytosis. 6. UTI - Pseudomonas. 7. Hypoxia - ? PNA. RECOMMENDATIONS: 1. Continue PO Vancomycin at 250 mg. 2. Continue Flagyl. 3. Continue Zosyn. 4. Follow blood culture. No growth to date. 5. Monitor WBC. El Espinoza MD Aug 10, 2017 11:40
[2017-08-10] MEDS: SODIUM HYPOCHLORITE 0.125% 500 ML BTL TOPICAL SCH (12:11)
--- NOTE | 2017-08-10 12:49 | HHI.CCPN ---
Subjective Remarks/Hospital Course The patient is a 67-year-old male with past medical history of hypertension, metastatic colon cancer, tobacco abuse, who, about 3 weeks ago underwent low anterior resection with low colorectal anastomosis, diverting ileostomy, and resection of a segment of the left ureter with ureteral anastomosis and double- J stent placement. He presented yesterday with 5 day history of abdominal discomfort and increasing weakness. No history of high output from ileostomy. He was admitted to the colorectal surgery for dehydration and probable UTI. He was placed on ciprofloxacin and IV hydration. According to Dr. Geiger's note it was difficult dissection/resection colon mass because of the pelvic sidewall adherence and the adherence to the left ureter. A portion of ureter was resected due to possibility of tumor infiltration, and Dr. Augustine Pelayo re- anastomosed the ureter and placed left-sided double-J stent. Also 1 cm hepatic metastasis in his liver that was excised. Hospitalist consultation was requested for medical management and evaluation of tachycardia today. He was seen by Dr. Jay and was placed on infusion of Cardizem for heart rate 140s. Patient became hypotensive with systolic blood pressure early 90s. Lab work showed WBC 14.5 with 44% bands, creat increase from 1.2 to 1.4 and severely increased lactate at 8 from admission lactate of 2.6. CT of the abdomen pelvis done yesterday showed probable small bowel ileus. I evaluated the patient in the ICU. He is tachycardic in 140s, hypotensive and systolic blood pressure in mid 80s. Clinically appears very dehydrated, an NG tube was placed with approximately 3 L of some coffee-ground output. ABG shows a base excess of -10 and bicarbonate 12. I have ordered 4 liter normal saline boluses start 1 amp of bicarbonate, discontinued the LR infusion, and started bicarb gtt. Discontinue ciprofloxacin, started Zosyn every 6 hours, vancomycin 1 g 1. His elevated lactic acid and bandemia most likely secondary to severe sepsis, ileus, and severe dehydration. Serial lactate is ordered SUBJ 06/19: Lactic acid remains elevated at 6.6 despite getting 9 L of crystalloid boluses in last 24 hours. Tachycardia has improved heart rate in 110s. Remains on vasopressin at 0.04 units/min. Urine output almost 1200 mL overnight, OGT initial output was almost 3 L when placed yesterday a.m. Overnight had 550 mL of greenish brown fluid output. EGD pending today rule out gastric ischemia per Dr. Romero. Apparently Flex sig was negative post op in Dr. Geiegr's office 06/20: Developed A. fib with RVR. Heart rate 200. Hemodynamically unstable, synchronized cardioversion attempted by Dr. Morales 100 200 J. Given 3 g mag sulfate and 80 mEq KCl 1, 0.5 digoxin 1 and started on amiodarone and Giorgio- Synephrine. Intubated due to hemodynamic instability. Currently remains sedated. Currently on Giorgio-Synephrine 80 mcg/m, and amiodarone. CT chest abdomen pelvis again confirms gastric and small bowel distention/ileus. UO 1800 ml in 24 hours 06/21: Remains critically ill, intubated sedated, on 100 mcg/min neosynpehrine. HR better controlled. NG output 1500, UO >1.4L. Am labs pending. Ileostomy sample positive for C Diff on PO vanc IV Flagyl. 06/22: Remains intubated sedated. Urine output 3000 mL with Bumex. NGT [address] Geiger did colonoscopy which was normal. Ileoscopy showed pseudomembranous colitis. Currently on 200 mcg/min of neosynephrine. Afib with RVR HR in 140's 06/23: Remains intubated sedated, remains in atrial fibrillation with RVR. Still requiring high doses of Giorgio-Synephrine at 190 mcg/min. UO 2.5L. chest x- ray showed bilateral large effusions. KUB shows improving small bowel distention. WBC count is slightly improved 06/24: Unable to control HR. Repeat shock x3 today. remains in atrial fibrillation with RVR rates 160-170 intermittently. Remains on amiodarone but will discontinued due to elevation of liver enzymes AST 546 ALT 158. (GI notified). Start Cardizem infusion and also give Surjit 0.5 mg 1. Platelet count continues to drop from 67 to today 45. Hematology following will start of Argatroban today. Creatinine has slightly increased to 1.3 to will DC Bumex infusion 06/25: Patient remains intubated sedated critically ill. Heart rate controlled for the first time since atrial fibrillation started. Heart rate remains 80- 90. Urine output 1200 mL in 24 hours but BUN/creatinine increasing 44/1.7. I will hydrate with 50 mL/hr normal saline for 24 hours. Transaminitis increasing AST 1300 ALT 386. Ultrasound of the liver unremarkable GI following 06/26: PTT elevated due to Argatorban/Liver failure. Dr. Hurley has DCd argatroban. SMILEY pending. Pl count is 21. Currently in sinus rhythm on Cardizem infusion. Not on any pressors. Creatinine improved to 1.2. Urine output adequate. Becomes very tachypneic on attempted CPAP. Discussed with Dr. Geiger Will Start Trickle Tube Feeds 06/27: no improvements. off pathway. thrombocytopenia persists. unable to wean from mechanical ventilation. neuro exam poor. will likely need trach. 06/28: platelets worse today. SMILEY not resulted yet. failing SBT and mental status poor. poor prognosis. will need trach and LTAC placement. 06/29: Tmax 101. Currently 99.6. Tolerating trickle tube feeds. Continues to fail spontaneous breathing trials. 06/30: Lasted 1 hour spontaneous breathing trial this AM. 2.5 hours this afternoon. Currently afebrile. Hemoglobin remained stable. 07/01: lasted 4 hours on SBT, except 15 of pressure support, so not ready clinically for extubation, and even after only 4 hours, tired out and became hypoxic and tachypneic. more awake today and following commands. will likely need tracheostomy. 07/02: new fever today, but wbc normal. per ID, will culture and observe, continue flagyl/PO vanc. otherwise no changes. no improvements. 07/03: pseudomonas in sputum and urine. increase in cough and secretions. ID following and added cefepime. still weak and failing SBTs for hypoxia and tachypnea. needs tracheostomy. will need long-term rehab and likely LTAC. 07/04: Wakes up easily, follows commands. On 5 mg/hr versed. CXR pending. UO adequate. Resume SBT. Significant weight gain. approx 15 kg up. Give Bumex 2 mg IV x1 07/05: Patient is intubated sedated with 50 g per hour of fentanyl. Urine output 3 L in [address] on scheduled Bumex. Tolerating CPAP at 15/5. bring in Viibryd, which apparently patient had been on for long time. I have resumed it. 07/06: Tolerating CPAP 10/5 better today, Wakes up and following commands. Good UO with Bumex. Chest x-ray basilar opacities essentially unchanged. Increase IV Bumex to 1 mg every 12 07/07: Extubated yesterday tolerating well. Slightly tachypneic but maintain oxygen saturation and no subjective shortness of breath. Urine output remains excellent on Bumex, 2.9L in 24 hours 07/08: Lying on bed breathing comfortably urine output excellent with increased Bumex dose. 5.8 L in 24 hours. WBC count stable. Increase activity up to stretcher chair today 07/09: Tolerating by mouth diet. Eating atleast 50%. TPN reduced by half yesterday. UO remains excellent with diuresis. Attempt TPN wean off today. Breathing comfortably except intermittent tachypnea. 07/10: Appetite better, breathing more comfortably. Off TPN. UO remains excellent. Platelet count slightly dropped to 46 from 49. I will continue steroids at Solu-Medrol 20 mg IV every 12, taper only very slowly 07/11: Afebrile. Resting comfortably in bed. On nasal cannula. 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 In brief this is a 67-year-old male with metastatic colon cancer status post colectomy with end ileostomy. He originally presented to the hospital with severe C. difficile ileitis and septic shock. He had a prolonged mechanical ventilation and ICU course. 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 Most recently has been on the floor and has had recurrent ileus. Over the last 3 days per nursing charting he is proximally 7 L positive as well as being 3 kg up from his weight a few days ago. His BNP is 245. He complains of worsening SOB and increasing oxygen requirement up to nonrebreather. On my evaluation this evening, he is tachypneic and dyspneic and respiratory distress on a nonrebreather. SPO2 89%. He denies chest pain, abdominal pain, nausea, vomiting. Per report, he did vomit a few times earlier today, and there is a high clinical suspicion by the hospitalist service that he had an aspiration event. He has an NG tube in place to suction. His most recent urine culture data suggests that his pseudomonas is now resistant to cefepime. For this reason infectious disease discontinued cefepime and started Zosyn today. Chest x-ray demonstrates bilateral patchy infiltrates either suggestive of volume overload or bilateral multifocal pneumonia. Limited review systems is otherwise negative unless stated above. For the remaining past medical history the patient, please see our lower school music teacher consultation note from 06/18/17. SUBJ 08/09: Patient lying on the bed slightly tachypneic but respiratory distress subjectively improved. On high flow nasal cannula 80% FiO2 been just weaned to 60%. Chest x-ray shows interval improvement in bilateral infiltrates received 40 mg IV Lasix yesterday. WBC count is improved from 23.1 to 16.3. KUB shows nonspecific bowel gas pattern 08/10: Remains on high flow nasal cannula at 50% oxygen. But appears to be breathing comfortably. Urine output adequate with Lasix yesterday also. 3.9 L in 24 hours. IR unable to place PEG yesterday, Dr. Geiger will discuss with IR today Objective Vital Signs Date Time Temp Pulse Resp B/P (MAP) Pulse Ox O2 Delivery O2 Flow Rate FiO2 08/10/17 10:00 92 Nasal Cannula 50 Humidified 08/10/17 09:55 40.00 08/10/17 08:00 98.2 88 24 124/57 (79) Intake and Output 08/10/17 08/10/17 08/11/17 08:00 16:00 00:00 Intake Total 540 ml Output Total 1501 ml Balance -961 ml Result Diagram: 08/09/17 0608/09/17 06 Imaging Last Impressions Chest X-Ray 07/10/17 06 Signed Impressions: Service Date/Time: Monday, July 10, 2017 04:39 - CONCLUSION: No significant change with persistent bilateral pulmonary parenchymal opacity with lower lung zone predominance likely worsening pulmonary edema and bilateral pleural effusions. Luis Armando Michel MD Abdomen X-Ray 07/06/17 0000 Signed Impressions: Service Date/Time: Thursday, July 06, 2017 13:44 - CONCLUSION: 1. Gaseous distention of multiple bowel loops. This has slightly improved. 2. Left-sided nephroureteral stent in good position. Sarwat Suarez MD Liver Ultrasound 06/24/17 Signed Impressions: Service Date/Time: Saturday, June 24, 2017 16:38 - CONCLUSION: 1. Small volume ascites. 2. Small right effusion. Pierce Ospina Jr., MD Upper Extremity Ultrasound 06/23/17 Signed Impressions: Service Date/Time: June 20:03 - CONCLUSION: Noncompressibility right cephalic vein and left basilic vein consistent with venous thrombosis Trav Hsieh MD Lower Extremity Ultrasound 06/23/17 Signed Impressions: Service Date/Time: June 20:16 - CONCLUSION: Normal examination. No evidence DVT Trav Hsieh MD Chest CT 06/20/17 Signed Impressions: Service Date/Time: Tuesday, June 20, 2017 07:42 - CONCLUSION: 1. Bilateral effusions and consolidative changes in both lung bases. Bao Lora MD Abdomen/Pelvis CT 06/20/17 Signed Impressions: Service Date/Time: Tuesday, June 20, 2017 07:39 - CONCLUSION: 1. Dilated stomach and multiple dilated loops of small bowel, likely ileus. 2. No definite gastric volvulus. 3. Fat containing right inguinal hernia which also contains small portion of the urinary bladder and minimal fluid. 4. Left-sided nephroureteral stent in good position. 5. Bibasilar consolidation and small pleural effusions. Sarwat Suarez MD Objective Remarks GENERAL: 67-year-old male lying on bed, in respiratory distress, on high emily NC at 50% oxygen SKIN: Warm and dry. HEENT: Normal cephalic. Atraumatic. Extraocular muscles intact. NECK: The neck is supple. Trachea is midline. Positive JVD. CHEST: Bilateral coarse breath sounds. HFNC 50% FiO2. SPO2 92%. CVS: Normal rate, regular rhythm. ABDOMEN: Abdomen is soft. Ileostomy is functioning well. EXTREMITIES: No pedal edema or cyanosis. NEURO: Alert awake. Moves all extremities but weak, following commands. No focal deficits. A/P Assessment and Plan Assessment: This is a 67-year-old male with colon cancer and recurrent pseudomonal infections who presents with recurrent respiratory distress, acute hypoxic respiratory failure, which is either volume overload/pulmonary edema versus healthcare associated aspiration pneumonia. If possible we will try to avoid intubation given his prolonged course, continue high flow nasal cannula. BiPAP is relatively contraindicated given his ileus and recent vomiting. If we fail high flow nasal cannula we will proceed with intubation, but currently patient is showing some signs of improvement. Agree with coverage with Zosyn, particularly covering not only antipseudomonal coverage as well as aspiration coverage. Agree with forced diuresis. Critically ill but stable to slightly improved Active Problems: Acute hypoxemic respiratory failure - new, severe HCAP, UTI with Pseudomonas Pneumonia COPD Pulmonary Edema Acute intravascular volume overload Aspiration pneumonia s/p Partial resection of the left ureter with anastomosis and placement of double-J stent Recurrent ileus Malnutrition Plan: Continue IV Zosyn. Continue by mouth vancomycin and Flagyl per ID Follow-up recent cultures, negative to date Previous Pseudomonas bacteremia UTI and HCAP Forced diuresis-IV Lasix 40 mg x1 07/09/17, give repeat 20 mg IV x 1 08/09. 20 mg IV Lasix repeat dose today Increase TPN to 60 ml per hour while NPO Continue NG to suction High flow nasal cannula, DuoNeb, IV steroids -reduce to 40 q6 Relative contraindication of BiPAP being high aspiration risk IR unable to place PEG tube. Dr. Geiger to discuss with IR D/W Dr. Pelayo re: ureteral stent removal- recommended postponing until more stable FiO2 requirement remains high, now weaned to 50% from 60% This patient remains critically ill with one or more organ systems which are or may become a threat to life. I have spent in excess of 30 minutes discontinuously in the care and management of this patient. This time is exclusive of procedures, and includes, but is not limited to, evaluation of the patient, review of the medical record, discussions with family, consultants, nursing staff, or respiratory therapy, and documentation in the medical record. Shiva Segovia MD Aug 10, 2017 12:49
[2017-08-10] MEDS: oxyCODONE/ACETAMINOPHEN 7.5 MG/325 MG TAB PO PRN (14:21)
[2017-08-10] MEDS ORDERED: FUROSEMIDE 20 MG/2 ML VIAL IV PUSH ONE (15:45)
--- NOTE | 2017-08-10 15:46 | PD.WCN.NOT ---
Wound Consult Description: Sacrum Communicated with: MARII Marr Patient Patient at bedside Recommendation: Change wound VAC to coccyx as ordered. Bridge foam from wound to either hip by protecting intact skin with VAC drape and place trac pad on anterior thigh to avoid bony prominences. Additional Information: Patient seen on [facility] for assistance in changing wound VAC to sacrococcygeal. Neg Pressure Wound Therapy Wound Location Wound Location: Sacrum Wound Description Length: 4.7cm Width: 5cm Depth: 1.7cm Undermining: from 10 to 3 o'clock deepest at 1 o'clock measuring 3.7cm Wound bed appearance: Full thickness wound to sacrum with visualized bone. No active drainage and no odor. Wound margins with intermittent slough noted with partial thickness skin loss noted from 5-6 o'clock. Periwound appearance: Other Settings Suction: 125 mmHg, Continuous Intensity: Low Other Information: Bridged (left hip), Windowpaned, Mushroomed Foam type: Black Number of pieces: 2 Additonal Information Wound was cleansed/soaked with quarter strength Dakins soaked gauze as ordered while prepping skin and cutting black foam into a cinnamon roll fashion. Periwound to left hip was covered in Vac drape in preparation for bridging. Wound was measured above. 2 pieces black foam used in all, one in wound bed and one in bridging. Trac pad placed on anterior groin/thigh area. Wound VAC settings @125mmHg low continuous suction. Kerry Thomas [facility] Aug 10, 2017 15:46
--- NOTE | 2017-08-10 16:09 | RADRPT ---
EXAM DATE/TIME: 08/10/2017 15:13 [facility] COMPARISON: CHEST SINGLE AP, August 09, 2017, 3:53. INDICATIONS : Respiratory disease- Shortness of breath. MEDICAL HISTORY : Hypertension. Hypercholesterolemia. Rectal/colon cancer SURGICAL HISTORY : Appendectomy. Colon resection. Kidney surgery. ENCOUNTER: Subsequent ACUITY: 3 days PAIN SCORE: 0/10 LOCATION: Bilateral chest FINDINGS: The chest is unchanged in appearance. Persistent bilateral airspace disease is noted. The lungs remain hypoaerated. Heart and mediastinal structures are stable. CONCLUSION: Persistent bilateral airspace disease without significant improvement since the prior day. Broderick Perry MD on August 10, 2017 at 16:06 Board Certified Radiologist. This report was verified electronically.
[2017-08-10] MEDS: POTASSIUM CHLOR 20 MEQ PREMIX 100 ML IV SCH ×2 (16:44→18:07)
[2017-08-10] MEDS: CLINIMIX E 4.25/5 1000 mL- </= 42 mls/hr IV SCH ×3 (16:44)
[2017-08-10] MEDS: methylPREDNISolone SOD SUCC 40 MG/1 ML VIAL IV PUSH SCH ×2 (17:17→23:11)
--- NOTE | 2017-08-10 17:37 | HHI.PR ---
Subjective . Pt seen at 9 AM today.Pt much more stable. PEG unable to be placed. Objective . VS-S Abd: softer,some stool Assessment/Plan . Improving Ileus Plan: Needs enteral nutrition when Ileus resolved. May have to accept N/G for a while. Luca Geiger MD Aug 10, 2017 17:37
[2017-08-10 19:00] LABS: BICARBONATE 27.4 MEQ/L (21.0-32.0); CALCIUM-PROTEIN CORRECTED 8.1 MG/DL (8.5-10.1); TOTAL BILIRUBIN ADULT 1.2 MG/DL (0.2-1.0)
[2017-08-10 19:02] LABS: POTASSIUM 2.8 MEQ/L (3.5-5.1)
[2017-08-10] MEDS: FAT EMULSION 20% INJ 250 ML (@10 mls/hr) IV SCH (19:47)
[2017-08-10] MEDS: TAMSULOSIN HCL 0.4 MG CAP PO SCH (19:47)
[2017-08-10] MEDS: VIIBRYD 40 MG PO SCH (19:47)
[2017-08-11] VITALS (12 sets, daily range): BP systolic 108–143; BP diastolic 53–63; PULSE 87–110; RESP 23–32; TEMP 98–98.9; O2SAT 9–96
[2017-08-11] MEDS: RESP: ALBUTEROL 1.25 MG/3 ML NEB (SCH) NEB ×4 (03:31→20:13)
[2017-08-11 03:35] LABS: HEMATOCRIT 28.8 % (39.0-51.0); MEAN CELL VOLUME 90.4 FL (80.0-100.0); MEAN CORPUSCULAR HEMOGLOBIN 29.3 PG (27.0-34.0); MEAN CORPUSCULAR HGB CONC 32.4 % (32.0-36.0); PLATELET COUNT 309 TH/MM3 (150-450); RED BLOOD COUNT 3.18 MIL/MM3 (4.50-5.90); RED CELL DISTRIBUTION WIDTH 20.1 % (11.6-17.2); WHITE BLOOD COUNT 18.5 TH/MM3 (4.0-11.0)
[2017-08-11 03:42] LABS: BICARBONATE 26.6 MEQ/L (21.0-32.0); CALCIUM-PROTEIN CORRECTED 8.3 MG/DL (8.5-10.1); MAGNESIUM 1.5 MG/DL (1.5-2.5); TOTAL BILIRUBIN ADULT 1.1 MG/DL (0.2-1.0)
[2017-08-11 03:45] LABS: HEMO FLAGS AUTO DIFF
[2017-08-11 04:31] LABS: BANDS 1 % (0-6); METAMYELOCYTES 1 % (0-1); NEUTROPHIL # MANUAL DIFF 17.2 TH/MM3 (1.8-7.7); POLYS (SEG NEUTROPHILS) 91 % (16-70); SCAN/DIFF FINAL DIFF MANUAL; WBC DIFF SAMPLE 100
[2017-08-11 04:32] LABS: PLATELET ESTIMATE SMEAR NORMAL (NORMAL); PLATELET MORPHOLOGY NORMAL (NORMAL)
[2017-08-11 04:33] LABS: TOXIC VACUOLATION PRESENT (NONE SEEN)
[2017-08-11] MEDS: PIPERACIL-TAZO 4.5 GM PREMIX 100 ML IV SCH ×4 (04:35→22:59)
[2017-08-11] MEDS: METOCLOPRAMIDE HCL 10 MG/2 ML VIAL IV PUSH SCH ×3 (04:36→20:13)
[2017-08-11] MEDS: DILTIAZEM HCL 60 MG TAB PO SCH ×4 (04:36→22:58)
[2017-08-11] MEDS: methylPREDNISolone SOD SUCC 40 MG/1 ML VIAL IV PUSH SCH ×4 (04:36→22:59)
[2017-08-11 04:52] LABS: POTASSIUM 2.8 MEQ/L (3.5-5.1)
[2017-08-11] MEDS ORDERED: POTASSIUM PHOSPHATE MONOBASIC 500 MG TAB PO/TUBE PRN (06:00)
[2017-08-11] MEDS ORDERED: POTASSIUM CHLOR 40 MEQ PREMIX 100 ML IV PRN (06:00)
[2017-08-11] MEDS ORDERED: POTASSIUM PHOSPHATE MONOBASIC 500 MG TAB PO PRN (06:00)
[2017-08-11] MEDS ORDERED: POTASSIUM CHLORIDE 25 MEQ EFFERVESCENT TAB PO PRN (06:00)
[2017-08-11] MEDS ORDERED: POTASSIUM PHOSPHATE INJ 30 MMOL in SODIUM CHLOR 0.9% 250 ML INJ 250 ML IV PRN (06:00)
[2017-08-11] MEDS ORDERED: SODIUM PHOSPHATE INJ 30 MMOL in SODIUM CHLOR 0.9% 250 ML INJ 240 ML IV PRN (06:00)
[2017-08-11] MEDS ORDERED: MAGNESIUM SULFATE INJ 4 GM in SODIUM CHLORIDE 0.9% INJ 92 ML IV PRN (06:00)
[2017-08-11] MEDS ORDERED: MAGNESIUM OXIDE 400 MG TAB PO PRN (06:00)
[2017-08-11] MEDS ORDERED: MAGNESIUM SULFATE INJ 2 GM in SODIUM CHLORIDE 0.9% INJ 96 ML IV PRN (06:00)
[2017-08-11] MEDS: POTASSIUM CHLOR 20 MEQ PREMIX 100 ML IV PRN ×5 (06:12→23:16)
[2017-08-11] MEDS: oxyCODONE/ACETAMINOPHEN 7.5 MG/325 MG TAB PO PRN ×2 (06:42→20:56)
[2017-08-11] MEDS ORDERED: FUROSEMIDE 40 MG/4 ML VIAL ONE (06:47)
[2017-08-11] MEDS ORDERED: FUROSEMIDE 40 MG/4 ML VIAL IV PUSH ONE (07:00)
[2017-08-11] MEDS ORDERED: ALBUMIN 25% INJ 100 ML IV ONE (07:00)
--- NOTE | 2017-08-11 07:34 | RADRPT ---
EXAM DATE/TIME: 08/11/2017 07:03 [facility] COMPARISON: CHEST SINGLE AP, August 10, 2017, 15:13. INDICATIONS : Pulmonary disease MEDICAL HISTORY : Hypertension. Hypercholesterolemia. Rectal/colon cancer SURGICAL HISTORY : Appendectomy. Colon resection. Kidney surgery ENCOUNTER: Subsequent ACUITY: 4 - 6 days PAIN SCORE: Non-responsive. LOCATION: chest FINDINGS: A single view of the chest demonstrates a nasogastric is in good position. There patchy bibasilar inf iltrates. There is no visible pneumothorax. Mild pulmonary interstitial prominence.. The cardiomedia stinal contours are unremarkable. Osseous structures are intact. CONCLUSION: Stable single view the chest. Patchy bibasilar infiltrates are unchanged. Abad Mariano MD on August 11, 2017 at 7:32 Board Certified Radiologist. This report was verified electronically.
[2017-08-11] MEDS: DIGOXIN 0.125 MG TAB PO SCH (08:02)
[2017-08-11] MEDS: BUDESONIDE-FORMOTEROL 160/4.5 MCG INHALER INH SCH ×2 (08:02→20:16)
[2017-08-11] MEDS: ENOXAPARIN SODIUM 40 MG/0.4 ML SYRINGE SQ SCH (08:02)
[2017-08-11] MEDS: PANTOPRAZOLE SODIUM 40 MG VIAL IV PUSH SCH (08:02)
[2017-08-11] MEDS: VANCOMYCIN 500 MG VIAL (FOR ORAL USE ONLY) PO SCH ×4 (08:02→20:13)
[2017-08-11] MEDS: metroNIDAZOLE 500 MG INJ 100 ML IV SCH ×3 (08:03→22:59)
[2017-08-11] MEDS: MEGESTROL ACETATE SUSP 400 MG/10 ML CUP PO SCH (08:04)
--- NOTE | 2017-08-11 08:24 | HHI.CCPN ---
Subjective Remarks/Hospital Course The patient is a 67-year-old male with past medical history of hypertension, metastatic colon cancer, tobacco abuse, who, about 3 weeks ago underwent low anterior resection with low colorectal anastomosis, diverting ileostomy, and resection of a segment of the left ureter with ureteral anastomosis and double- J stent placement. He presented yesterday with 5 day history of abdominal discomfort and increasing weakness. No history of high output from ileostomy. He was admitted to the colorectal surgery for dehydration and probable UTI. He was placed on ciprofloxacin and IV hydration. According to Dr. Geiger's note it was difficult dissection/resection colon mass because of the pelvic sidewall adherence and the adherence to the left ureter. A portion of ureter was resected due to possibility of tumor infiltration, and Dr. Augustine Pelayo re- anastomosed the ureter and placed left-sided double-J stent. Also 1 cm hepatic metastasis in his liver that was excised. Hospitalist consultation was requested for medical management and evaluation of tachycardia today. He was seen by Dr. Jay and was placed on infusion of Cardizem for heart rate 140s. Patient became hypotensive with systolic blood pressure early 90s. Lab work showed WBC 14.5 with 44% bands, creat increase from 1.2 to 1.4 and severely increased lactate at 8 from admission lactate of 2.6. CT of the abdomen pelvis done yesterday showed probable small bowel ileus. I evaluated the patient in the ICU. He is tachycardic in 140s, hypotensive and systolic blood pressure in mid 80s. Clinically appears very dehydrated, an NG tube was placed with approximately 3 L of some coffee-ground output. ABG shows a base excess of -10 and bicarbonate 12. I have ordered 4 liter normal saline boluses start 1 amp of bicarbonate, discontinued the LR infusion, and started bicarb gtt. Discontinue ciprofloxacin, started Zosyn every 6 hours, vancomycin 1 g 1. His elevated lactic acid and bandemia most likely secondary to severe sepsis, ileus, and severe dehydration. Serial lactate is ordered SUBJ 06/19: Lactic acid remains elevated at 6.6 despite getting 9 L of crystalloid boluses in last 24 hours. Tachycardia has improved heart rate in 110s. Remains on vasopressin at 0.04 units/min. Urine output almost 1200 mL overnight, OGT initial output was almost 3 L when placed yesterday a.m. Overnight had 550 mL of greenish brown fluid output. EGD pending today rule out gastric ischemia per Dr. Romero. Apparently Flex sig was negative post op in Dr. Geiger's office 06/20: Developed A. fib with RVR. Heart rate 200. Hemodynamically unstable, synchronized cardioversion attempted by Dr. Morales 100 200 J. Given 3 g mag sulfate and 80 mEq KCl 1, 0.5 digoxin 1 and started on amiodarone and Giorgio- Synephrine. Intubated due to hemodynamic instability. Currently remains sedated. Currently on Giorgio-Synephrine 80 mcg/m, and amiodarone. CT chest abdomen pelvis again confirms gastric and small bowel distention/ileus. UO 1800 ml in 24 hours 06/21: Remains critically ill, intubated sedated, on 100 mcg/min neosynpehrine. HR better controlled. NG output 1500, UO >1.4L. Am labs pending. Ileostomy sample positive for C Diff on PO vanc IV Flagyl. 06/22: Remains intubated sedated. Urine output 3000 mL with Bumex. NGT [address] Geiger did colonoscopy which was normal. Ileoscopy showed pseudomembranous colitis. Currently on 200 mcg/min of neosynephrine. Afib with RVR HR in 140's 06/23: Remains intubated sedated, remains in atrial fibrillation with RVR. Still requiring high doses of Giorgio-Synephrine at 190 mcg/min. UO 2.5L. chest x- ray showed bilateral large effusions. KUB shows improving small bowel distention. WBC count is slightly improved 06/24: Unable to control HR. Repeat shock x3 today. remains in atrial fibrillation with RVR rates 160-170 intermittently. Remains on amiodarone but will discontinued due to elevation of liver enzymes AST 546 ALT 158. (GI notified). Start Cardizem infusion and also give Surjit 0.5 mg 1. Platelet count continues to drop from 67 to today 45. Hematology following will start of Argatroban today. Creatinine has slightly increased to 1.3 to will DC Bumex infusion 06/25: Patient remains intubated sedated critically ill. Heart rate controlled for the first time since atrial fibrillation started. Heart rate remains 80- 90. Urine output 1200 mL in 24 hours but BUN/creatinine increasing 44/1.7. I will hydrate with 50 mL/hr normal saline for 24 hours. Transaminitis increasing AST 1300 ALT 386. Ultrasound of the liver unremarkable GI following 06/26: PTT elevated due to Argatorban/Liver failure. Dr. Hurley has DCd argatroban. SMILEY pending. Pl count is 21. Currently in sinus rhythm on Cardizem infusion. Not on any pressors. Creatinine improved to 1.2. Urine output adequate. Becomes very tachypneic on attempted CPAP. Discussed with Dr. Geiger Will Start Trickle Tube Feeds 06/27: no improvements. off pathway. thrombocytopenia persists. unable to wean from mechanical ventilation. neuro exam poor. will likely need trach. 06/28: platelets worse today. SMILEY not resulted yet. failing SBT and mental status poor. poor prognosis. will need trach and LTAC placement. 06/29: Tmax 101. Currently 99.6. Tolerating trickle tube feeds. Continues to fail spontaneous breathing trials. 06/30: Lasted 1 hour spontaneous breathing trial this AM. 2.5 hours this afternoon. Currently afebrile. Hemoglobin remained stable. 07/01: lasted 4 hours on SBT, except 15 of pressure support, so not ready clinically for extubation, and even after only 4 hours, tired out and became hypoxic and tachypneic. more awake today and following commands. will likely need tracheostomy. 07/02: new fever today, but wbc normal. per ID, will culture and observe, continue flagyl/PO vanc. otherwise no changes. no improvements. 07/03: pseudomonas in sputum and urine. increase in cough and secretions. ID following and added cefepime. still weak and failing SBTs for hypoxia and tachypnea. needs tracheostomy. will need long-term rehab and likely LTAC. 07/04: Wakes up easily, follows commands. On 5 mg/hr versed. CXR pending. UO adequate. Resume SBT. Significant weight gain. approx 15 kg up. Give Bumex 2 mg IV x1 07/05: Patient is intubated sedated with 50 g per hour of fentanyl. Urine output 3 L in [address] on scheduled Bumex. Tolerating CPAP at 15/5. bring in Viibryd, which apparently patient had been on for long time. I have resumed it. 07/06: Tolerating CPAP 10/5 better today, Wakes up and following commands. Good UO with Bumex. Chest x-ray basilar opacities essentially unchanged. Increase IV Bumex to 1 mg every 12 07/07: Extubated yesterday tolerating well. Slightly tachypneic but maintain oxygen saturation and no subjective shortness of breath. Urine output remains excellent on Bumex, 2.9L in 24 hours 07/08: Lying on bed breathing comfortably urine output excellent with increased Bumex dose. 5.8 L in 24 hours. WBC count stable. Increase activity up to stretcher chair today 07/09: Tolerating by mouth diet. Eating atleast 50%. TPN reduced by half yesterday. UO remains excellent with diuresis. Attempt TPN wean off today. Breathing comfortably except intermittent tachypnea. 07/10: Appetite better, breathing more comfortably. Off TPN. UO remains excellent. Platelet count slightly dropped to 46 from 49. I will continue steroids at Solu-Medrol 20 mg IV every 12, taper only very slowly 07/11: Afebrile. Resting comfortably in bed. On nasal cannula. Reviewed vascular note does not want sacral decubitus debridement/ Subjective RECONSULT NOTE : 08/08: This is a patient well-known to the [employer] service. In brief this is a 67-year-old male with metastatic colon cancer status post colectomy with end ileostomy. He originally presented to the hospital with severe C. difficile ileitis and septic shock. He had a prolonged mechanical ventilation and ICU course. 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 Most recently has been on the floor and has had recurrent ileus. Over the last 3 days per nursing charting he is proximally 7 L positive as well as being 3 kg up from his weight a few days ago. His BNP is 245. He complains of worsening SOB and increasing oxygen requirement up to nonrebreather. On my evaluation this evening, he is tachypneic and dyspneic and respiratory distress on a nonrebreather. SPO2 89%. He denies chest pain, abdominal pain, nausea, vomiting. Per report, he did vomit a few times earlier today, and there is a high clinical suspicion by the hospitalist service that he had an aspiration event. He has an NG tube in place to suction. His most recent urine culture data suggests that his pseudomonas is now resistant to cefepime. For this reason infectious disease discontinued cefepime and started Zosyn today. Chest x-ray demonstrates bilateral patchy infiltrates either suggestive of volume overload or bilateral multifocal pneumonia. Limited review systems is otherwise negative unless stated above. For the remaining past medical history the patient, please see our [employer] consultation note from 06/18/17. SUBJ 08/09: Patient lying on the bed slightly tachypneic but respiratory distress subjectively improved. On high flow nasal cannula 80% FiO2 been just weaned to 60%. Chest x-ray shows interval improvement in bilateral infiltrates received 40 mg IV Lasix yesterday. WBC count is improved from 23.1 to 16.3. KUB shows nonspecific bowel gas pattern 08/10: Remains on high flow nasal cannula at 50% oxygen. But appears to be breathing comfortably. Urine output adequate with Lasix yesterday also. 3.9 L in 24 hours. IR unable to place PEG yesterday, Dr. Geiger will discuss with IR today 08/11: Patient is currently back on high flow NC, at 55% oxygen. CXR unchanged. K 2.8 getting replaced, IV Lasix 40 mg x1. Plan for PEG tube placement in the OR today by Dr. Watts. Objective Vital Signs Date Time Temp Pulse Resp B/P (MAP) Pulse Ox O2 Delivery O2 Flow Rate FiO2 08/11/17 05:45 88 Nasal Cannula 50 Humidified 08/11/17 05:45 30.00 08/11/17 04:00 98.0 97 25 114/59 (77) Intake and Output 08/11/17 08/11/17 08/12/17 08:00 16:00 00:00 Intake Total 200 ml Output Total 1750 ml Balance -1550 ml Result Diagram: 08/11/17 0311 08/11/17 0311 Imaging Last Impressions Chest X-Ray 07/10/17 0600 Signed Impressions: Service Date/Time: Monday, July 10, 2017 04:39 - CONCLUSION: No significant change with persistent bilateral pulmonary parenchymal opacity with lower lung zone predominance likely worsening pulmonary edema and bilateral pleural effusions. Luis Armando Michel MD Abdomen X-Ray 07/06/17 0000 Signed Impressions: Service Date/Time: Thursday, July 06, 2017 13:44 - CONCLUSION: 1. Gaseous distention of multiple bowel loops. This has slightly improved. 2. Left-sided nephroureteral stent in good position. Sarwat Suarez MD Liver Ultrasound 06/24/17 Signed Impressions: Service Date/Time: Saturday, June 24, 2017 16:38 - CONCLUSION: 1. Small volume ascites. 2. Small right effusion. Pierce Ospina Jr., MD Upper Extremity Ultrasound 06/23/17 Signed Impressions: Service Date/Time: June 20:03 - CONCLUSION: Noncompressibility right cephalic vein and left basilic vein consistent with venous thrombosis Trav Hsieh MD Lower Extremity Ultrasound 06/23/17 Signed Impressions: Service Date/Time: June 20:16 - CONCLUSION: Normal examination. No evidence DVT Trav Hsieh MD Chest CT 06/20/17 Signed Impressions: Service Date/Time: Tuesday, June 20, 2017 07:42 - CONCLUSION: 1. Bilateral effusions and consolidative changes in both lung bases. Bao Lora MD Abdomen/Pelvis CT 06/20/17 Signed Impressions: Service Date/Time: Tuesday, June 20, 2017 07:39 - CONCLUSION: 1. Dilated stomach and multiple dilated loops of small bowel, likely ileus. 2. No definite gastric volvulus. 3. Fat containing right inguinal hernia which also contains small portion of the urinary bladder and minimal fluid. 4. Left-sided nephroureteral stent in good position. 5. Bibasilar consolidation and small pleural effusions. Sarwat Suarez MD Objective Remarks GENERAL: 67-year-old male lying on bed, in mild respiratory distress, on high emily NC at 55% oxygen SKIN: Warm and dry. HEENT: Normal cephalic. Atraumatic. Extraocular muscles intact. NECK: The neck is supple. Trachea is midline. Positive JVD. CHEST: Bilateral coarse breath sounds. HFNC 55% FiO2. SPO2 91%. CVS: Normal rate, regular rhythm. ABDOMEN: Abdomen is soft. Ileostomy is functioning well. EXTREMITIES: No pedal edema or cyanosis. NEURO: Alert awake. Moves all extremities but weak, following commands. No focal deficits. A/P Assessment and Plan Assessment: This is a 67-year-old male with colon cancer and recurrent pseudomonal infections who presents with recurrent respiratory distress, acute hypoxic respiratory failure, which is either volume overload/pulmonary edema versus healthcare associated aspiration pneumonia. If possible we will try to avoid intubation given his prolonged course, continue high flow nasal cannula. BiPAP is relatively contraindicated given his ileus and recent vomiting. Coverage with Zosyn, particularly covering not only antipseudomonal coverage as well as aspiration coverage. Continue forced diuresis. Critically ill but stable to slightly improved Active Problems: Acute hypoxemic respiratory failure - new HCAP with Pseudomonas UTI with Pseudomonas s/p Pseudomonas bacteremia COPD Pulmonary Edema Acute intravascular volume overload Aspiration pneumonia s/p Partial resection of the left ureter with anastomosis and placement of double-J stent Recurrent ileus Malnutrition Metastatic colon cancer Plan: Continue IV Zosyn. Continue by mouth vancomycin and Flagyl per ID Follow-up recent cultures, negative to date Previous Pseudomonas bacteremia UTI and HCAP Forced diuresis-IV Lasix 40 mg x1 repeat dose today Increased TPN to 60 ml per hour while NPO, will reduce back to 45 Continue NG to suction PEG today with Dr. Watts (Anatomy could be challenging) High flow nasal cannula, DuoNeb, IV steroids -reduced to 40 q6 08/10 Relative contraindication of BiPAP being high aspiration risk IR was unable to place PEG tube. D/W Dr. Pelayo re: ureteral stent removal- recommended postponing until more stable FiO2 requirement remains high, at 55% This patient remains critically ill with one or more organ systems which are or may become a threat to life. I have spent in excess of 30 minutes discontinuously in the care and management of this patient. This time is exclusive of procedures, and includes, but is not limited to, evaluation of the patient, review of the medical record, discussions with family, consultants, nursing staff, or respiratory therapy, and documentation in the medical record. Shiva Segovia MD Aug 11, 2017 08:24
[2017-08-11] MEDS: RESP: ALBUTEROL 2.5 MG/3 ML NEB (PRN) NEB (08:53)
[2017-08-11] MEDS: INSULIN ASPART SUPPLEMENTAL SCALE SQ SCH ×4 (09:04→20:16)
[2017-08-11] MEDS: CLINIMIX E 4.25/5 1000 mL- </= 42 mls/hr IV SCH ×3 (10:13)
[2017-08-11] MEDS ORDERED: METOPROLOL TARTRATE 5 MG/5 ML VIAL IV PUSH ONE (10:45)
--- NOTE | 2017-08-11 15:24 | EKG ---
Date Performed: 08/11/2017 Time Performed: 10:45:12 PTAGE: 67 years EKG: --- Warning: Data quality may affect interpretation --- Baseline artifact present probable Atrial fibrillation with rapid ventricular response with PVC(s). Right axis deviation Possible anteri or infarct - age undetermined Inferior/lateral ST-T changes are nonspecific Generalized low QRS volta ges Abnormal ECG DOCTOR: Esdras Candelaria Interpretating Date/Time 08/11/2017 15:23:38
--- NOTE | 2017-08-11 15:27 | HHI.IDPN ---
Note Infectious Disease Note Patient is awake and alert. Afebrile. Denies chills. Awaiting GJ tube placement. WBC higher. Not coughing up sputum. Admitted to the hospital with weakness, abdominal pain and nausea. The patient is status post anterior resection of colon and rectal areas and anastomosis along with a diverting ileostomy and also resection of a segment of left ureter with ureteral anastomosis and double-J stent placement three weeks prior. PAST MEDICAL HISTORY: 1. Hypertension. 2. Left knee surgery. 3. Metastatic colon cancer status post resection and colo-anal anastomosis and also resection and re-anastomosis of the left ureter with double-J stent placement. ALLERGIES: CODEINE. ABX: Vancomycin PO. Zosyn. Flagyl. OBJECTIVE: Vital Signs Date Time Temp Pulse Resp B/P (MAP) Pulse Ox O2 Delivery O2 Flow Rate FiO2 08/10/17 10:00 92 Nasal Cannula 50 Humidified 08/10/17 09:55 90 High Flow Nasal Cannula 40.00 50 08/10/17 09:47 90 High Flow Nasal Cannula 45.00 50 08/10/17 08:00 98.2 88 24 124/57 (79) 94 08/10/17 07:41 94 High Flow Nasal Cannula 50.00 50 08/10/17 07:00 92 Nasal Cannula 60 Humidified 08/10/17 04:00 97.4 85 23 115/55 (75) 95 08/10/17 00:00 97.6 89 23 112/54 (73) 94 08/09/17 22:39 20 08/09/17 20:00 98.5 93 25 90/57 (68) 93 08/09/17 19:39 92 High Flow Nasal Cannula 50.00 60 08/09/17 19:00 91 Nasal Cannula 60 Humidified 08/09/17 16:00 98.0 76 19 115/60 (78) 94 08/09/17 14:40 97.9 102 24 97/50 88 08/09/17 14:15 98.0 82 23 103/55 89 08/09/17 13:59 98.2 92 24 105/57 90 08/09/17 12:00 98.2 80 25 100/55 (70) 91 Laboratory Tests Test 08/11/17 03:11 White Blood Count 18.5 TH/MM3 Red Blood Count 3.18 MIL/MM3 Hemoglobin 9.3 GM/DL Hematocrit 28.8 % Mean Corpuscular Volume 90.4 FL Mean Corpuscular Hemoglobin 29.3 PG Mean Corpuscular Hemoglobin Concent 32.4 % Red Cell Distribution Width 20.1 % Platelet Count 309 TH/MM3 Mean Platelet Volume 8.1 FL CBC Comment AUTO DIFF Differential Total Cells Counted 100 Neutrophils % (Manual) 91 % Band Neutrophils % 1 % Monocytes % 7 % Neutrophils # (Manual) 17.2 TH/MM3 Metamyelocytes 1 % Differential Comment FINAL DIFF MANUAL Toxic Vacuolation PRESENT Platelet Estimate NORMAL Platelet Morphology Comment NORMAL Red Cell Morphology Comment NORMAL Laboratory Tests Test 08/10/17 17:41 08/11/17 03:11 Blood Urea Nitrogen 23 MG/DL 25 MG/DL Creatinine 0.86 MG/DL 0.81 MG/DL Random Glucose 149 MG/DL 173 MG/DL Total Protein 5.8 GM/DL 5.4 GM/DL Albumin 1.7 GM/DL 1.7 GM/DL Calcium Level 7.4 MG/DL 7.4 MG/DL Alkaline Phosphatase 165 U/L 151 U/L Aspartate Amino Transf (AST/SGOT) 13 U/L 12 U/L Alanine Aminotransferase (ALT/SGPT) 16 U/L 18 U/L Total Bilirubin 1.2 MG/DL 1.1 MG/DL Sodium Level 143 MEQ/L 143 MEQ/L Potassium Level 2.8 MEQ/L 2.8 MEQ/L Chloride Level 106 MEQ/L 107 MEQ/L Carbon Dioxide Level 27.4 MEQ/L 26.6 MEQ/L Anion Gap 10 MEQ/L 9 MEQ/L Estimat Glomerular Filtration Rate 88 ML/MIN 95 ML/MIN Protein Corrected Calcium 8.1 MG/DL 8.3 MG/DL Magnesium Level 1.5 MG/DL Phosphorus Level 1.6 MG/DL Microbiology Date/Time Source Procedure Growth Status 08/08/17 19:15 Blood Peripheral Aerobic Blood Culture - Preliminary NO GROWTH IN 3 DAYS Resulted 08/08/17 19:15 Blood Peripheral Anaerobic Blood Culture - Preliminary NO GROWTH IN 3 DAYS Resulted 08/08/17 15:50 Blood Peripheral Aerobic Blood Culture - Preliminary NO GROWTH IN 3 DAYS Resulted 08/08/17 15:50 Blood Peripheral Anaerobic Blood Culture - Preliminary NO GROWTH IN 3 DAYS Resulted IMAGING: Chest X-Ray 08/11/17 0000 Signed Impressions: Service Date/Time: August 07:03 - CONCLUSION: Stable single view the chest. Patchy bibasilar infiltrates are unchanged. Abad Mariano MD Chest X-Ray 08/10/17 0000 Signed Impressions: Service Date/Time: Thursday, August 10, 2017 15:13 - CONCLUSION: Persistent bilateral airspace disease without significant improvement since the prior day. Broderick Perry MD Chest X-Ray 08/09/17 0600 Signed Impressions: Service Date/Time: Wednesday, August 09, 2017 03:53 - CONCLUSION: Interval improvement in bilateral pulmonary infiltrates. Norman Mitchell MD Abdomen X-Ray 08/09/17 0600 Signed Impressions: Service Date/Time: Wednesday, August 09, 2017 03:49 - CONCLUSION: 1. Nonspecific bowel gas pattern without change. 2. Left ureteral stent catheter remains in place. Norman Mitchell MD Chest X-Ray 08/08/17 0000 Signed Impressions: Service Date/Time: Tuesday, August 08, 2017 17:51 - CONCLUSION: Diffuse infiltrates bilaterally suggesting moderate to severe pulmonary edema versus pneumonia. Clinical correlation is recommended. Yefri Israel MD PHYSICAL EXAMINATION: GENERAL: No acute distress. HEENT: No icterus. Oropharynx with dry mucosa. NECK: Supple. LUNGS: Decreased breath sounds. HEART: Regular S1-S2 without murmurs, rubs or gallops. ABDOMEN: Positive bowel sounds. Soft. Non tender. EXTREMITIES: No clubbing or cyanosis, edema. SKIN: No rash. NEUROLOGIC: Nonfocal. PSYCH: Calm and cooperative. IMPRESSION: 1. Post treatment for Severe sepsis/ Bandemia. Status post recent surgery for rectal cancer and recent ureteral resection and double J ureteral stent. 2. C difficile colitis. Pseudomembranous enteritis/sepsis. 3. Acute respiratory failure. Extubated. 4. Pseudomonas pneumonia and UTI. Treated and improved. 5. Leukocytosis. 6. UTI - Pseudomonas. 7. Hypoxia - ? PNA. Abnormal CXR. persistent infiltrates. RECOMMENDATIONS: 1. Continue PO Vancomycin at 250 mg. 2. Continue Flagyl. 3. Continue Zosyn. 4. Follow blood culture. El Espinoza MD Aug 11, 2017 15:27
[2017-08-11 15:49] LABS: ALT (GPT) 21 U/L (12-78); ANION GAP 9 MEQ/L (5-15); AST (GOT) 14 U/L (15-37); BICARBONATE 26.9 MEQ/L (21.0-32.0); BLOOD UREA NITROGEN 27 MG/DL (7-18); CHLORIDE 107 MEQ/L (98-107); GLOMERULAR FILTRATION RATE 88 ML/MIN (>89); SODIUM (NA) 143 MEQ/L (136-145)
[2017-08-11 15:52] LABS: ALKALINE PHOSPHATASE 140 U/L (45-117); TOTAL BILIRUBIN ADULT 1.1 MG/DL (0.2-1.0)
--- NOTE | 2017-08-11 17:03 | HHI.PR ---
Subjective . Awake,alert. Breathing fairly comfortable. RN had him sitting on side of bed for 25 minutes. Thirsty. Ileus resolved. Objective . VS-S Abd: flat,soft,nontender Assessment/Plan . Stable Possible PEG tomorrow. CLD Luca Geiger MD Aug 11, 2017 17:02
--- NOTE | 2017-08-11 17:28 | HHI.GIFU ---
GI Follow-up Note Consult Follow-up Subjective: Patient laying in bed comfortably, no new complaints except poor appetite Objective: PHYSICAL EXAMINATION: Vitals signs stable No fever HEENT: Pupils round and reactive to light; normocephalic; atraumatic; no jaundice. Throat is clear. NECK: Neck is supple, no JVD, no lymphadenopathy. CHEST: Chest is clear to auscultation and percussion. CARDIAC: Regular rate and rhythm with no murmur gallop or rubs. ABDOMEN: Soft, nondistended, nontender; no hepatosplenomegaly; bowel sounds are present in all four quadrants. EXTREMITIES: No clubbing, cyanosis, or edema. SKIN: Normal; no rash; no jaundice. AIR EXPORT AGENT: No focal deficits; alert and oriented times three. Available Data (labs, X- Rays, Procedues) : Last Impressions Chest X-Ray 08/11/17 0000 Signed Impressions: Service Date/Time: August 07:03 - CONCLUSION: Stable single view the chest. Patchy bibasilar infiltrates are unchanged. Abad Mariano MD Abdomen X-Ray 08/09/17 0600 Signed Impressions: Service Date/Time: Wednesday, August 09, 2017 03:49 - CONCLUSION: 1. Nonspecific bowel gas pattern without change. 2. Left ureteral stent catheter remains in place. Norman Mitchell MD Gastrostomy Tube Placement 08/09/17 0000 Signed Impressions: Service Date/Time: Wednesday, August 09, 2017 17:54 - CONCLUSION: Unsuccessful gastrostomy tube placement secondary to overlying bowel. CT scan will be required for placement Eddie Saucedo MD ADDENDUM: Review of the CT scan demonstrates the anatomy would require placement between the ribs which would be suboptimal. This was discussed with Dr. Luca Saucedo MD Abdomen/Pelvis CT 08/06/17 0000 Signed Impressions: Service Date/Time: Monday, August 07, 2017 02:34 - CONCLUSION: 1. Diffusely dilated small bowel extending to the ileostomy. There is a small volume of free fluid in the abdomen. 2. Abnormal airspace consolidation at the lung bases bilaterally with bilateral pleural effusions. 3. There is a open sacral decubitus wound extending to the adjacent coccyx and sacrum. Luca Torres MD Cholangiopancreatography MRI 07/15/17 0000 Signed Impressions: Service Date/Time: Saturday, July 15, 2017 15:02 - CONCLUSION: 1. Ascites with small bilateral pleural effusions. 2. Small contracted gallbladder without definite stones 3. No definite common duct stone. 4. Pancreas obscured by motion. Alfredo Lora MD FACR Liver Ultrasound 07/14/17 0000 Signed Impressions: Service Date/Time: July 16:45 - CONCLUSION: 1. Small volume ascites. 2. Bilateral pleural effusions. 3. Sludge within the gallbladder with a top normal thickness of the gallbladder wall. No sonographic evidence to suggest acute cholecystitis. Pierce Ospina Jr., MD Upper Extremity Ultrasound 06/23/17 0000 Signed Impressions: Service Date/Time: June 20:03 - CONCLUSION: Noncompressibility right cephalic vein and left basilic vein consistent with venous thrombosis Trav Hsieh MD Lower Extremity Ultrasound 06/23/17 0000 Signed Impressions: Service Date/Time: June 20:16 - CONCLUSION: Normal examination. No evidence DVT Trav Hsieh MD Chest CT 06/20/17 0000 Signed Impressions: Service Date/Time: Tuesday, June 20, 2017 07:42 - CONCLUSION: 1. Bilateral effusions and consolidative changes in both lung bases. Bao Lora MD Laboratory Tests Test 08/10/17 17:41 08/11/17 03:11 08/11/17 14:39 Blood Urea Nitrogen 23 MG/DL 25 MG/DL 27 MG/DL Creatinine 0.86 MG/DL 0.81 MG/DL 0.86 MG/DL Random Glucose 149 MG/DL 173 MG/DL 148 MG/DL Total Protein 5.8 GM/DL 5.4 GM/DL 5.5 GM/DL Albumin 1.7 GM/DL 1.7 GM/DL 2.1 GM/DL Calcium Level 7.4 MG/DL 7.4 MG/DL 7.5 MG/DL Alkaline Phosphatase 165 U/L 151 U/L 140 U/L Aspartate Amino Transf (AST/SGOT) 13 U/L 12 U/L 14 U/L Alanine Aminotransferase (ALT/SGPT) 16 U/L 18 U/L 21 U/L Total Bilirubin 1.2 MG/DL 1.1 MG/DL 1.1 MG/DL Sodium Level 143 MEQ/L 143 MEQ/L 143 MEQ/L Potassium Level 2.8 MEQ/L 2.8 MEQ/L 3.0 MEQ/L Chloride Level 106 MEQ/L 107 MEQ/L 107 MEQ/L Carbon Dioxide Level 27.4 MEQ/L 26.6 MEQ/L 26.9 MEQ/L Anion Gap 10 MEQ/L 9 MEQ/L 9 MEQ/L Estimat Glomerular Filtration Rate 88 ML/MIN 95 ML/MIN 88 ML/MIN Protein Corrected Calcium 8.1 MG/DL 8.3 MG/DL White Blood Count 18.5 TH/MM3 Red Blood Count 3.18 MIL/MM3 Hemoglobin 9.3 GM/DL Hematocrit 28.8 % Mean Corpuscular Volume 90.4 FL Mean Corpuscular Hemoglobin 29.3 PG Mean Corpuscular Hemoglobin Concent 32.4 % Red Cell Distribution Width 20.1 % Platelet Count 309 TH/MM3 Mean Platelet Volume 8.1 FL CBC Comment AUTO DIFF Differential Total Cells Counted 100 Neutrophils % (Manual) 91 % Band Neutrophils % 1 % Monocytes % 7 % Neutrophils # (Manual) 17.2 TH/MM3 Metamyelocytes 1 % Differential Comment FINAL DIFF MANUAL Toxic Vacuolation PRESENT Platelet Estimate NORMAL Platelet Morphology Comment NORMAL Red Cell Morphology Comment NORMAL Magnesium Level 1.5 MG/DL Phosphorus Level 1.6 MG/DL 1.6 MG/DL Allergies Coded Allergies Type Severity Reaction Last Updated Verified codeine Adverse Reaction Severe Nausea/Vomiting 05/26/17 Yes Active Scripts Medications Dose Route/Sig Max Daily Dose Days Date Category Lortab (Hydrocodone-Acetaminophen) 5-325 Mg Tab 1 Tab PO Q4-6H PRN 06/01/17 Reported Viibryd (Vilazodone) 40 Mg Tab 40 Mg PO HS 05/19/17 Reported Tamsulosin (Tamsulosin HCl) 0.4 Mg Cap 0.4 Mg PO HS 05/19/17 Reported Metoprolol Tartrate 50 Mg Tab 50 Mg PO BID 05/19/17 Reported ASSESSMENT/PLAN: Seen and examined, Egd/peg cancelled today by anesthesia due to respiratory issues. Dr. martinez notified. Will re evaluate tomorrow. It was a pleasure seeing Luca Armendariz. Thank you for this consult. Entered by: Dwight Roca MD Aug 11, 2017 17:28
[2017-08-11] MEDS: CLINIMIX E 4.25/5 2000 mL- >42 mls/hr IV SCH ×3 (20:11)
[2017-08-11] MEDS: FAT EMULSION 20% INJ 250 ML (@10 mls/hr) IV SCH (20:11)
[2017-08-11] MEDS: TAMSULOSIN HCL 0.4 MG CAP PO SCH (20:13)
[2017-08-11] MEDS: VIIBRYD 40 MG PO SCH (20:16)
[2017-08-12] VITALS (9 sets, daily range): BP systolic 114–135; BP diastolic 56–73; PULSE 88–96; RESP 20–23; TEMP 97.8–98.7; O2SAT 88–100
[2017-08-12] MEDS: oxyCODONE/ACETAMINOPHEN 7.5 MG/325 MG TAB PO PRN ×2 (02:28→10:50)
[2017-08-12] MEDS: RESP: ALBUTEROL 1.25 MG/3 ML NEB (SCH) NEB ×2 (03:39→09:15)
[2017-08-12] MEDS: methylPREDNISolone SOD SUCC 40 MG/1 ML VIAL IV PUSH SCH ×3 (05:06→21:23)
[2017-08-12] MEDS: PIPERACIL-TAZO 4.5 GM PREMIX 100 ML IV SCH ×4 (05:06→23:40)
[2017-08-12] MEDS: DILTIAZEM HCL 60 MG TAB PO SCH ×4 (05:06→23:40)
[2017-08-12] MEDS: METOCLOPRAMIDE HCL 10 MG/2 ML VIAL IV PUSH SCH ×3 (05:06→21:23)
--- NOTE | 2017-08-12 05:47 | RADRPT ---
EXAM DATE/TIME: 08/12/2017 04:25 [facility] COMPARISON: No previous studies available for comparison. INDICATIONS : Respiratory disease. MEDICAL HISTORY : Carcinoma, rectal. Hernia, inguinal. Hypertension. SURGICAL HISTORY : Appendectomy. Colon resection. Kidney surgery. ENCOUNTER: Subsequent ACUITY: 1 week PAIN SCORE: Non-responsive. LOCATION: Bilateral chest FINDINGS: Diffuse interstitial prominence, atelectatic changes of the right and left lung base and patchy airsp florencia disease noted. Enteric tube courses beneath the diaphragm. Cardiomegaly. No effusions. CONCLUSION: Bilateral alveolar and interstitial infiltrates are noted. Joel Blancas MD on August 12, 2017 at 5:45 Board Certified Radiologist. This report was verified electronically.
[2017-08-12 06:23] LABS: HEMATOCRIT 26.7 % (39.0-51.0); MEAN CELL VOLUME 91.2 FL (80.0-100.0); MEAN CORPUSCULAR HGB CONC 32.8 % (32.0-36.0); PLATELET COUNT 259 TH/MM3 (150-450); RED BLOOD COUNT 2.92 MIL/MM3 (4.50-5.90); WHITE BLOOD COUNT 19.3 TH/MM3 (4.0-11.0)
[2017-08-12 06:28] LABS: HEMO FLAGS AUTO DIFF
[2017-08-12 06:52] LABS: ALT (GPT) 20 U/L (12-78); ANION GAP 7 MEQ/L (5-15); AST (GOT) 16 U/L (15-37); BICARBONATE 27.5 MEQ/L (21.0-32.0); BLOOD UREA NITROGEN 26 MG/DL (7-18); CHLORIDE 106 MEQ/L (98-107); GLOMERULAR FILTRATION RATE 110 ML/MIN (>89); MAGNESIUM 1.7 MG/DL (1.5-2.5); POTASSIUM 3.5 MEQ/L (3.5-5.1); SODIUM (NA) 140 MEQ/L (136-145)
[2017-08-12 06:55] LABS: ALKALINE PHOSPHATASE 139 U/L (45-117); TOTAL BILIRUBIN ADULT 1.1 MG/DL (0.2-1.0)
[2017-08-12 07:46] LABS: BANDS 2 % (0-6); NEUTROPHIL # MANUAL DIFF 18.5 TH/MM3 (1.8-7.7); POLYS (SEG NEUTROPHILS) 94 % (16-70); WBC DIFF SAMPLE 100
[2017-08-12 07:48] LABS: PLATELET ESTIMATE SMEAR NORMAL (NORMAL); PLATELET MORPHOLOGY NORMAL (NORMAL); SCAN/DIFF FINAL DIFF MANUAL
[2017-08-12] MEDS: INSULIN ASPART SUPPLEMENTAL SCALE SQ SCH ×4 (08:00→21:00)
[2017-08-12] MEDS ORDERED: FUROSEMIDE 40 MG/4 ML VIAL IV PUSH ONE (08:37)
[2017-08-12] MEDS ORDERED: FUROSEMIDE 40 MG/4 ML VIAL ONE (08:37)
[2017-08-12] MEDS: PANTOPRAZOLE SODIUM 40 MG VIAL IV PUSH SCH (08:43)
[2017-08-12] MEDS: DIGOXIN 0.125 MG TAB PO SCH (08:43)
[2017-08-12] MEDS: POTASSIUM CHLOR 20 MEQ PREMIX 100 ML IV PRN ×2 (08:43→11:06)
[2017-08-12] MEDS: MEGESTROL ACETATE SUSP 400 MG/10 ML CUP PO SCH (08:44)
[2017-08-12] MEDS: VANCOMYCIN 500 MG VIAL (FOR ORAL USE ONLY) PO SCH ×4 (08:44→20:57)
[2017-08-12] MEDS: metroNIDAZOLE 500 MG INJ 100 ML IV SCH ×3 (08:44→23:40)
[2017-08-12] MEDS: ENOXAPARIN SODIUM 40 MG/0.4 ML SYRINGE SQ SCH (08:44)
[2017-08-12] MEDS: BUDESONIDE-FORMOTEROL 160/4.5 MCG INHALER INH SCH ×2 (09:00→21:23)
--- NOTE | 2017-08-12 09:42 | HHI.CCPN ---
Subjective Remarks/Hospital Course The patient is a 67-year-old male with past medical history of hypertension, metastatic colon cancer, tobacco abuse, who, about 3 weeks ago underwent low anterior resection with low colorectal anastomosis, diverting ileostomy, and resection of a segment of the left ureter with ureteral anastomosis and double- J stent placement. He presented yesterday with 5 day history of abdominal discomfort and increasing weakness. No history of high output from ileostomy. He was admitted to the colorectal surgery for dehydration and probable UTI. He was placed on ciprofloxacin and IV hydration. According to Dr. Geiger's note it was difficult dissection/resection colon mass because of the pelvic sidewall adherence and the adherence to the left ureter. A portion of ureter was resected due to possibility of tumor infiltration, and Dr. Augustine Pelayo re- anastomosed the ureter and placed left-sided double-J stent. Also 1 cm hepatic metastasis in his liver that was excised. Hospitalist consultation was requested for medical management and evaluation of tachycardia today. He was seen by Dr. Jay and was placed on infusion of Cardizem for heart rate 140s. Patient became hypotensive with systolic blood pressure early 90s. Lab work showed WBC 14.5 with 44% bands, creat increase from 1.2 to 1.4 and severely increased lactate at 8 from admission lactate of 2.6. CT of the abdomen pelvis done yesterday showed probable small bowel ileus. I evaluated the patient in the ICU. He is tachycardic in 140s, hypotensive and systolic blood pressure in mid 80s. Clinically appears very dehydrated, an NG tube was placed with approximately 3 L of some coffee-ground output. ABG shows a base excess of -10 and bicarbonate 12. I have ordered 4 liter normal saline boluses start 1 amp of bicarbonate, discontinued the LR infusion, and started bicarb gtt. Discontinue ciprofloxacin, started Zosyn every 6 hours, vancomycin 1 g 1. His elevated lactic acid and bandemia most likely secondary to severe sepsis, ileus, and severe dehydration. Serial lactate is ordered SUBJ 06/19: Lactic acid remains elevated at 6.6 despite getting 9 L of crystalloid boluses in last 24 hours. Tachycardia has improved heart rate in 110s. Remains on vasopressin at 0.04 units/min. Urine output almost 1200 mL overnight, OGT initial output was almost 3 L when placed yesterday a.m. Overnight had 550 mL of greenish brown fluid output. EGD pending today rule out gastric ischemia per Dr. Romero. Apparently Flex sig was negative post op in Dr. Geiger's office 06/20: Developed A. fib with RVR. Heart rate 200. Hemodynamically unstable, synchronized cardioversion attempted by Dr. Morales 100 200 J. Given 3 g mag sulfate and 80 mEq KCl 1, 0.5 digoxin 1 and started on amiodarone and Giorgio- Synephrine. Intubated due to hemodynamic instability. Currently remains sedated. Currently on Giorgio-Synephrine 80 mcg/m, and amiodarone. CT chest abdomen pelvis again confirms gastric and small bowel distention/ileus. UO 1800 ml in 24 hours 06/21: Remains critically ill, intubated sedated, on 100 mcg/min neosynpehrine. HR better controlled. NG output 1500, UO >1.4L. Am labs pending. Ileostomy sample positive for C Diff on PO vanc IV Flagyl. 06/22: Remains intubated sedated. Urine output 3000 mL with Bumex. NGT [address] Geiger did colonoscopy which was normal. Ileoscopy showed pseudomembranous colitis. Currently on 200 mcg/min of neosynephrine. Afib with RVR HR in 140's 06/23: Remains intubated sedated, remains in atrial fibrillation with RVR. Still requiring high doses of Giorgio-Synephrine at 190 mcg/min. UO 2.5L. chest x- ray showed bilateral large effusions. KUB shows improving small bowel distention. WBC count is slightly improved 06/24: Unable to control HR. Repeat shock x3 today. remains in atrial fibrillation with RVR rates 160-170 intermittently. Remains on amiodarone but will discontinued due to elevation of liver enzymes AST 546 ALT 158. (GI notified). Start Cardizem infusion and also give Surjit 0.5 mg 1. Platelet count continues to drop from 67 to today 45. Hematology following will start of Argatroban today. Creatinine has slightly increased to 1.3 to will DC Bumex infusion 06/25: Patient remains intubated sedated critically ill. Heart rate controlled for the first time since atrial fibrillation started. Heart rate remains 80- 90. Urine output 1200 mL in 24 hours but BUN/creatinine increasing 44/1.7. I will hydrate with 50 mL/hr normal saline for 24 hours. Transaminitis increasing AST 1300 ALT 386. Ultrasound of the liver unremarkable GI following 06/26: PTT elevated due to Argatorban/Liver failure. Dr. Hurley has DCd argatroban. SMILEY pending. Pl count is 21. Currently in sinus rhythm on Cardizem infusion. Not on any pressors. Creatinine improved to 1.2. Urine output adequate. Becomes very tachypneic on attempted CPAP. Discussed with Dr. Geiger Will Start Trickle Tube Feeds 06/27: no improvements. off pathway. thrombocytopenia persists. unable to wean from mechanical ventilation. neuro exam poor. will likely need trach. 06/28: platelets worse today. SMILEY not resulted yet. failing SBT and mental status poor. poor prognosis. will need trach and LTAC placement. 06/29: Tmax 101. Currently 99.6. Tolerating trickle tube feeds. Continues to fail spontaneous breathing trials. 06/30: Lasted 1 hour spontaneous breathing trial this AM. 2.5 hours this afternoon. Currently afebrile. Hemoglobin remained stable. 07/01: lasted 4 hours on SBT, except 15 of pressure support, so not ready clinically for extubation, and even after only 4 hours, tired out and became hypoxic and tachypneic. more awake today and following commands. will likely need tracheostomy. 07/02: new fever today, but wbc normal. per ID, will culture and observe, continue flagyl/PO vanc. otherwise no changes. no improvements. 07/03: pseudomonas in sputum and urine. increase in cough and secretions. ID following and added cefepime. still weak and failing SBTs for hypoxia and tachypnea. needs tracheostomy. will need long-term rehab and likely LTAC. 07/04: Wakes up easily, follows commands. On 5 mg/hr versed. CXR pending. UO adequate. Resume SBT. Significant weight gain. approx 15 kg up. Give Bumex 2 mg IV x1 07/05: Patient is intubated sedated with 50 g per hour of fentanyl. Urine output 3 L in [address] on scheduled Bumex. Tolerating CPAP at 15/5. bring in Viibryd, which apparently patient had been on for long time. I have resumed it. 07/06: Tolerating CPAP 10/5 better today, Wakes up and following commands. Good UO with Bumex. Chest x-ray basilar opacities essentially unchanged. Increase IV Bumex to 1 mg every 12 07/07: Extubated yesterday tolerating well. Slightly tachypneic but maintain oxygen saturation and no subjective shortness of breath. Urine output remains excellent on Bumex, 2.9L in 24 hours 07/08: Lying on bed breathing comfortably urine output excellent with increased Bumex dose. 5.8 L in 24 hours. WBC count stable. Increase activity up to stretcher chair today 07/09: Tolerating by mouth diet. Eating atleast 50%. TPN reduced by half yesterday. UO remains excellent with diuresis. Attempt TPN wean off today. Breathing comfortably except intermittent tachypnea. 07/10: Appetite better, breathing more comfortably. Off TPN. UO remains excellent. Platelet count slightly dropped to 46 from 49. I will continue steroids at Solu-Medrol 20 mg IV every 12, taper only very slowly 07/11: Afebrile. Resting comfortably in bed. On nasal cannula. 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 In brief this is a 67-year-old male with metastatic colon cancer status post colectomy with end ileostomy. He originally presented to the hospital with severe C. difficile ileitis and septic shock. He had a prolonged mechanical ventilation and ICU course. 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 Most recently has been on the floor and has had recurrent ileus. Over the last 3 days per nursing charting he is proximally 7 L positive as well as being 3 kg up from his weight a few days ago. His BNP is 245. He complains of worsening SOB and increasing oxygen requirement up to nonrebreather. On my evaluation this evening, he is tachypneic and dyspneic and respiratory distress on a nonrebreather. SPO2 89%. He denies chest pain, abdominal pain, nausea, vomiting. Per report, he did vomit a few times earlier today, and there is a high clinical suspicion by the hospitalist service that he had an aspiration event. He has an NG tube in place to suction. His most recent urine culture data suggests that his pseudomonas is now resistant to cefepime. For this reason infectious disease discontinued cefepime and started Zosyn today. Chest x-ray demonstrates bilateral patchy infiltrates either suggestive of volume overload or bilateral multifocal pneumonia. Limited review systems is otherwise negative unless stated above. For the remaining past medical history the patient, please see our furniture arranger consultation note from 06/18/17. SUBJ 08/09: Patient lying on the bed slightly tachypneic but respiratory distress subjectively improved. On high flow nasal cannula 80% FiO2 been just weaned to 60%. Chest x-ray shows interval improvement in bilateral infiltrates received 40 mg IV Lasix yesterday. WBC count is improved from 23.1 to 16.3. KUB shows nonspecific bowel gas pattern 08/10: Remains on high flow nasal cannula at 50% oxygen. But appears to be breathing comfortably. Urine output adequate with Lasix yesterday also. 3.9 L in 24 hours. IR unable to place PEG yesterday, Dr. Geiger will discuss with IR today 08/11: Patient is currently back on high flow NC, at 55% oxygen. CXR unchanged. K 2.8 getting replaced, IV Lasix 40 mg x1. Plan for PEG tube placement in the OR today by Dr. Watts. 08/12: Patient currently on normal partial nonrebreather with oxygen saturation 95-96%. Chest x-rays essentially unchanged I have ordered additional 40 mg Lasix today and were placed on scheduled Lasix. WBC count is trending up but patient is currently on steroids Objective Vital Signs Date Time Temp Pulse Resp B/P (MAP) Pulse Ox O2 Delivery O2 Flow Rate FiO2 08/12/17 09:40 88 Venturi Mask 50 08/12/17 04:00 98.0 88 21 135/73 (93) 08/12/17 03:41 12.00 Intake and Output 08/12/17 08/12/17 08/13/17 08:00 16:00 00:00 Intake Total 500 ml Output Total 1225 ml Balance -725 ml Result Diagram: 08/12/1751608/12/17 05 Imaging Last Impressions Chest X-Ray 07/10/17 0600 Signed Impressions: Service Date/Time: Monday, July 10, 2017 04:39 - CONCLUSION: No significant change with persistent bilateral pulmonary parenchymal opacity with lower lung zone predominance likely worsening pulmonary edema and bilateral pleural effusions. Luis Armando Michel MD Abdomen X-Ray 07/06/17 Signed Impressions: Service Date/Time: Thursday, July 06, 2017 13:44 - CONCLUSION: 1. Gaseous distention of multiple bowel loops. This has slightly improved. 2. Left-sided nephroureteral stent in good position. Sarwat Suarez MD Liver Ultrasound 06/24/17 Signed Impressions: Service Date/Time: Saturday, June 24, 2017 16:38 - CONCLUSION: 1. Small volume ascites. 2. Small right effusion. Pierce Ospina Jr., MD Upper Extremity Ultrasound 06/23/17 Signed Impressions: Service Date/Time: June 20:03 - CONCLUSION: Noncompressibility right cephalic vein and left basilic vein consistent with venous thrombosis Trav Hsieh MD Lower Extremity Ultrasound 06/23/17 Signed Impressions: Service Date/Time: June 20:16 - CONCLUSION: Normal examination. No evidence DVT Trav Hsieh MD Chest CT 06/20/17 0000 Signed Impressions: Service Date/Time: Tuesday, June 20, 2017 07:42 - CONCLUSION: 1. Bilateral effusions and consolidative changes in both lung bases. Bao Lora MD Abdomen/Pelvis CT 06/20/17 0000 Signed Impressions: Service Date/Time: Tuesday, June 20, 2017 07:39 - CONCLUSION: 1. Dilated stomach and multiple dilated loops of small bowel, likely ileus. 2. No definite gastric volvulus. 3. Fat containing right inguinal hernia which also contains small portion of the urinary bladder and minimal fluid. 4. Left-sided nephroureteral stent in good position. 5. Bibasilar consolidation and small pleural effusions. Sarwat Suarez MD Objective Remarks GENERAL: 67-year-old male lying on bed, in mild respiratory distress, on pNRB SKIN: Warm and dry. HEENT: Normal cephalic. Atraumatic. Extraocular muscles intact. NECK: The neck is supple. Trachea is midline. Positive JVD. CHEST: Bilateral coarse breath sounds, few basilar crackles. On pNRB. SPO2 95% . CVS: Normal rate, regular rhythm. ABDOMEN: Abdomen is soft. Ileostomy is functioning well. EXTREMITIES: No pedal edema or cyanosis. NEURO: Alert awake. Moves all extremities but weak, following commands. No focal deficits. A/P Assessment and Plan Assessment: This is a 67-year-old male with colon cancer and recurrent pseudomonal infections who presents with recurrent respiratory distress, acute hypoxic respiratory failure, which is either volume overload/pulmonary edema versus healthcare associated aspiration pneumonia. If possible we will try to avoid intubation given his prolonged course, continue high flow nasal cannula. BiPAP is relatively contraindicated given his ileus and recent vomiting. Coverage with Zosyn, particularly covering not only antipseudomonal coverage as well as aspiration coverage. Continue forced diuresis. Critically ill but stable to slightly improved Active Problems: Acute hypoxemic respiratory failure COPD Pulmonary Edema Acute intravascular volume overload Aspiration pneumonia HCAP with Pseudomonas UTI with Pseudomonas s/p Pseudomonas bacteremia s/p Partial resection of the left ureter with anastomosis and placement of double-J stent Recurrent ileus Malnutrition Metastatic colon cancer s/p resection Plan: Continue IV Zosyn. Continue by mouth vancomycin and Flagyl per ID Follow-up recent cultures, blood cx negative to date. Send sputum culture Previous Pseudomonas bacteremia UTI and HCAP Forced diuresis-IV Lasix 40 mg x1 repeat dose today, and scheduled Lasix 20 mg IV q12h Reduce TPN to 40 ml per hour. Continue NG to suction Possible PEG today with Dr. Watts (Anatomy could be challenging) pNRB, DuoNeb, IV steroids -solumedrol reduced to 40 q8h 08/10 Continue Symbicort, add Spiriva, add EzPAP, acapella Relative contraindication of BiPAP being high aspiration risk, ileus IR was unable to place PEG tube. D/W Dr. Pelayo re: ureteral stent removal- recommended postponing until more stable FiO2 requirement remains high, on pNRB This patient remains critically ill with one or more organ systems which are or may become a threat to life. Level 3 Shiva Segovia MD Aug 12, 2017 09:42
[2017-08-12] MEDS ORDERED: RESP: ALBUTEROL 1.25 MG/3 ML NEB (SCH) NEB (10:00)
[2017-08-12] MEDS: RESP: ALBUTEROL 2.5 MG/IPRATROPIUM 0.5 MG NEB (SCH) NEB ×2 (11:37→17:05)
[2017-08-12] MEDS ORDERED: LIDOCAINE HCL 1% PF 5 ML SYRINGE OTHER ONE ×2 (12:00)
[2017-08-12] MEDS ORDERED: MIDAZOLAM HCL 2 MG/2 ML VIAL IV ONE ×2 (12:00)
[2017-08-12] MEDS ORDERED: PROPOFOL 200 MG/20 ML AMP IV ONE ×2 (12:00)
--- NOTE | 2017-08-12 12:02 | RADRPT ---
EXAM DATE/TIME: 08/12/2017 11:02 [facility] COMPARISON: CHEST SINGLE AP, August 11, 2017, 7:03. CHEST SINGLE AP, August 12, 2017, 4:25. INDICATIONS : Short of breath. MEDICAL HISTORY : Hypertension. rectal, colon cancer SURGICAL HISTORY : Appendectomy. colon resection, kidney surgery ENCOUNTER: Initial ACUITY: 1 week PAIN SCORE: 0/10 LOCATION: Bilateral chest FINDINGS: Portable AP view of the chest demonstrates a normal-sized cardiac silhouette. Nasogastric tube remain s present. Multiple EKG lines overlie the patient. Lungs are underinflated with bibasilar airspace op acities bilaterally. No pneumothorax or pleural effusion is identified. The bones and soft tissues de monstrate no acute finding. CONCLUSION: Stable chest x-ray with underinflation and bilateral lower lung zone airspace consolidation. Luca Torres MD on August 12, 2017 at 11:59 Board Certified Radiologist. This report was verified electronically.
[2017-08-12] MEDS: SODIUM HYPOCHLORITE 0.125% 500 ML BTL TOPICAL SCH (12:27)
--- NOTE | 2017-08-12 13:21 | HHI.IDPN ---
Note Infectious Disease Note Patient is awake and alert. Afebrile. Has large volume diuresis from lasix. Awaiting GJ tube placement. WBC higher. Not coughing up sputum. Urine culture pending. Admitted to the hospital with weakness, abdominal pain and nausea. The patient is status post anterior resection of colon and rectal areas and anastomosis along with a diverting ileostomy and also resection of a segment of left ureter with ureteral anastomosis and double-J stent placement three weeks prior. PAST MEDICAL HISTORY: 1. Hypertension. 2. Left knee surgery. 3. Metastatic colon cancer status post resection and colo-anal anastomosis and also resection and re-anastomosis of the left ureter with double-J stent placement. ALLERGIES: CODEINE. ABX: Vancomycin PO. Zosyn. Flagyl. OBJECTIVE: Vital Signs Date Time Temp Pulse Resp B/P (MAP) Pulse Ox O2 Delivery O2 Flow Rate FiO2 08/12/17 12:00 98.2 92 20 114/56 (75) 100 08/12/17 09:40 88 Venturi Mask 50 08/12/17 08:00 97.8 96 23 134/62 (86) 99 08/12/17 08:00 97 Partial Non-Rebreather 13.00 100 08/12/17 07:00 97 Partial Non-Rebreather 13.00 100 08/12/17 04:00 98.0 88 21 135/73 (93) 100 08/12/17 03:41 94 Partial Rebreather 12.00 08/12/17 00:00 98.0 90 21 119/58 (78) 96 08/11/17 23:45 82 Non-Rebreather 10.00 100 08/11/17 23:45 96 Non-Rebreather 15.00 08/11/17 21:00 85 Venturi Mask 50 08/11/17 20:15 92 Venturi Mask 6.00 50 08/11/17 20:00 98.3 110 32 143/60 (87) 90 08/11/17 19:10 82 Venturi Mask 35 08/11/17 19:00 82 Nasal Cannula 50 Humidified 08/11/17 16:00 98.8 97 27 141/63 (89) 92 08/11/17 14:50 92 Nasal Cannula 6.00 Laboratory Tests Test 08/11/17 03:11 08/12/17 05:17 White Blood Count 18.5 TH/MM3 19.3 TH/MM3 Red Blood Count 3.18 MIL/MM3 2.92 MIL/MM3 Hemoglobin 9.3 GM/DL 8.8 GM/DL Hematocrit 28.8 % 26.7 % Mean Corpuscular Volume 90.4 FL 91.2 FL Mean Corpuscular Hemoglobin 29.3 PG 30.0 PG Mean Corpuscular Hemoglobin Concent 32.4 % 32.8 % Red Cell Distribution Width 20.1 % 20.0 % Platelet Count 309 TH/MM3 259 TH/MM3 Mean Platelet Volume 8.1 FL 8.4 FL CBC Comment AUTO DIFF AUTO DIFF Differential Total Cells Counted 100 100 Neutrophils % (Manual) 91 % 94 % Band Neutrophils % 1 % 2 % Monocytes % 7 % 3 % Neutrophils # (Manual) 17.2 TH/MM3 18.5 TH/MM3 Metamyelocytes 1 % Differential Comment FINAL DIFF MANUAL FINAL DIFF MANUAL Toxic Vacuolation PRESENT Platelet Estimate NORMAL NORMAL Platelet Morphology Comment NORMAL NORMAL Red Cell Morphology Comment NORMAL Lymphocytes % 1 % Laboratory Tests Test 08/10/17 17:41 08/11/17 03:11 08/11/17 14:39 08/11/17 20:19 Blood Urea Nitrogen 23 MG/DL 25 MG/DL 27 MG/DL Creatinine 0.86 MG/DL 0.81 MG/DL 0.86 MG/DL Random Glucose 149 MG/DL 173 MG/DL 148 MG/DL Total Protein 5.8 GM/DL 5.4 GM/DL 5.5 GM/DL Albumin 1.7 GM/DL 1.7 GM/DL 2.1 GM/DL Calcium Level 7.4 MG/DL 7.4 MG/DL 7.5 MG/DL Alkaline Phosphatase 165 U/L 151 U/L 140 U/L Aspartate Amino Transf (AST/SGOT) 13 U/L 12 U/L 14 U/L Alanine Aminotransferase (ALT/SGPT) 16 U/L 18 U/L 21 U/L Total Bilirubin 1.2 MG/DL 1.1 MG/DL 1.1 MG/DL Sodium Level 143 MEQ/L 143 MEQ/L 143 MEQ/L Potassium Level 2.8 MEQ/L 2.8 MEQ/L 3.0 MEQ/L 3.3 MEQ/L Chloride Level 106 MEQ/L 107 MEQ/L 107 MEQ/L Carbon Dioxide Level 27.4 MEQ/L 26.6 MEQ/L 26.9 MEQ/L Anion Gap 10 MEQ/L 9 MEQ/L 9 MEQ/L Estimat Glomerular Filtration Rate 88 ML/MIN 95 ML/MIN 88 ML/MIN Protein Corrected Calcium 8.1 MG/DL 8.3 MG/DL Magnesium Level 1.5 MG/DL Phosphorus Level 1.6 MG/DL 1.6 MG/DL Test 08/12/17 05:17 Blood Urea Nitrogen 26 MG/DL Creatinine 0.71 MG/DL Random Glucose 186 MG/DL Total Protein 5.3 GM/DL Albumin 2.0 GM/DL Calcium Level 7.6 MG/DL Magnesium Level 1.7 MG/DL Alkaline Phosphatase 139 U/L Aspartate Amino Transf (AST/SGOT) 16 U/L Alanine Aminotransferase (ALT/SGPT) 20 U/L Total Bilirubin 1.1 MG/DL Sodium Level 140 MEQ/L Potassium Level 3.5 MEQ/L Chloride Level 106 MEQ/L Carbon Dioxide Level 27.5 MEQ/L Anion Gap 7 MEQ/L Estimat Glomerular Filtration Rate 110 ML/MIN Microbiology Date/Time Source Procedure Growth Status 08/08/17 19:15 Blood Peripheral Aerobic Blood Culture - Preliminary NO GROWTH IN 3 DAYS Resulted 08/08/17 19:15 Blood Peripheral Anaerobic Blood Culture - Preliminary NO GROWTH IN 3 DAYS Resulted 08/08/17 15:50 Blood Peripheral Aerobic Blood Culture - Preliminary NO GROWTH IN 3 DAYS Resulted 08/08/17 15:50 Blood Peripheral Anaerobic Blood Culture - Preliminary NO GROWTH IN 3 DAYS Resulted IMAGING: Chest X-Ray 08/12/17 0600 Signed Impressions: Service Date/Time: Saturday, August 12, 2017 04:25 - CONCLUSION: Bilateral alveolar and interstitial infiltrates are noted. Joel Blancas MD Chest X-Ray 08/12/17 0000 Signed Impressions: Service Date/Time: Saturday, August 12, 2017 11:02 - CONCLUSION: Stable chest x-ray with underinflation and bilateral lower lung zone airspace consolidation. Luca Torres MD Chest X-Ray 08/11/17 0000 Signed Impressions: Service Date/Time: August 07:03 - CONCLUSION: Stable single view the chest. Patchy bibasilar infiltrates are unchanged. Abad Mariano MD Chest X-Ray 08/09/17 0600 Signed Impressions: Service Date/Time: Wednesday, August 09, 2017 03:53 - CONCLUSION: Interval improvement in bilateral pulmonary infiltrates. Norman Mitchell MD Abdomen X-Ray 08/09/17 0600 Signed Impressions: Service Date/Time: Wednesday, August 09, 2017 03:49 - CONCLUSION: 1. Nonspecific bowel gas pattern without change. 2. Left ureteral stent catheter remains in place. Norman Mitchell MD Chest X-Ray 08/08/17 0000 Signed Impressions: Service Date/Time: Tuesday, August 08, 2017 17:51 - CONCLUSION: Diffuse infiltrates bilaterally suggesting moderate to severe pulmonary edema versus pneumonia. Clinical correlation is recommended. Yefri Israel MD PHYSICAL EXAMINATION: GENERAL: No acute distress. HEENT: No icterus. Oropharynx mucosa dry. NECK: Supple. LUNGS: Decreased breath sounds. HEART: Regular S1-S2 without murmurs, rubs or gallops. ABDOMEN: Positive bowel sounds. Soft. Non tender. EXTREMITIES: No clubbing or cyanosis, edema. SKIN: No rash. NEUROLOGIC: Nonfocal. PSYCH: Calm and cooperative. IMPRESSION: 1. Post treatment for Severe sepsis/ Bandemia. Status post recent surgery for rectal cancer and recent ureteral resection and double J ureteral stent. 2. C difficile colitis. Pseudomembranous enteritis/sepsis. 3. Acute respiratory failure. Extubated. 4. Pseudomonas pneumonia and UTI. Treated and improved. 5. Leukocytosis. ? ongoing infection. 6. UTI - Pseudomonas. 7. Hypoxia - ? PNA. ? CHF. Abnormal CXR. persistent infiltrates. RECOMMENDATIONS: 1. Continue PO Vancomycin. 2. Continue Flagyl. 3. Continue Zosyn. 4. Monitor repeat UA/C&S. El Espinoza MD Aug 12, 2017 13:21
--- NOTE | 2017-08-12 16:08 | GIPROC ---
[facility] [address] [facility]. [facility], [address] EGD WITH PEG PROCEDURE REPORT EXAM DATE: 08/12/2017 PATIENT NAME: Luca Armendariz MR#: [id number] BIRTHDATE: 1950 ATTENDING: Dwight Trevino MD ORDER #: [id number] [employer]: Cindi Bermudez and Irena Kinney STATUS: inpatient INDICATIONS: The patient is a 67 yr old male here for an EGD with PEG due to placement of PEG PROCEDURE PERFORMED: EGD, diagnostic MEDICATIONS: None and Per Anesthesia. TOPICAL ANESTHETIC: CONSENT: The patient understands the risks and benefits of the procedure and understands that these risks include, but are not limited to: sedation, allergic reaction, infection, perforation and/or bleeding. Alternative means of evaluation and treatment include, among others: physical exam, x-rays, and/or surgical intervention. The patient elects to proceed with this endoscopic procedure. medical equipment was checked for proper function. Hand hygiene and appropriate measures for infection prevention was taken. After the risks, benefits and alternatives of the procedure were thoroughly explained, Informed consent was verified, confirmed and timeout was successfully executed by the treatment team. The patient was anesthetized with topical anesthesia and the Pentax [id number] endoscope was introduced through the mouth and advanced to the descending duodenum. The instrument was slowly withdrawn as the mucosa was fully examined. Moderate gastritis was found UNable to traniluminate, couple of attempts made with a 22 gauge needle to enter the stomach. No clear window found to place PEG. The stomach was then inflated with air, and by a combination of transillumination and manual palpation, the site for the gastrostomy tube placement was selected and marked on the anterior abdominal wall. The skin of the anterior abdomen was surgically prepped and draped with sterile towels. Utilizing strict sterile technique, the selected site was then anesthetized with 1% xylocaine by injection into the skin and subcutaneous tissue. A 1 cm incision was made through the skin and subcutaneous tissue, and the needle/cannula assembly was then passed through the abdominal wall and through the anterior wall of the stomach, maintaining visualization with the endoscope. A snare device previously placed through the instrument channel was then opened and placed around the cannula, the needle was removed, and the insertion wire was passed through the cannula and into the stomach lumen. The snare was then loosened from the cannula, and repositioned to snare the insertion wire. The snare was then pulled up to the endoscope distal tip, and the scope was then withdrawn bringing with it the snare and insertion wire. The insertion wire was then released from the snare, and then loop-attached to the gastrostomy tube. Using the "pull technique", the G-tube was then pulled into place by traction on the insertion wire at the abdominal wall end. The G-tube insertion site was then cleansed once again, and the external bolster was placed over the tube to secure it to the abdominal wall. A sterile dressing was then applied, and the procedure terminated. no abnormalities The gastroscope was then slowly withdrawn and removed. ADVERSE EVENT: There were no complications. IMPRESSIONS: 1. Moderate gastritis was found 2. No abnormalities RECOMMENDATIONS: Anti-reflux regimen REPEAT EXAM: procedure as needed Dwight Trevino MD eSigned: Dwight Trevino MD 08/12/2017 4:08 PM cc: PATIENT NAME: Luca Armendariz MR#: [id number]
[2017-08-12] MEDS ORDERED: DO NOT ADM ANY ANTICOAGULANT DRUGS PRN (16:20)
--- NOTE | 2017-08-12 16:21 | HHI.PR ---
Subjective Remarks Dr Saenz placed PEG this afternoon. Pt remains in GI lab. Objective Vital Signs Date Time Temp Pulse Resp B/P (MAP) Pulse Ox O2 Delivery O2 Flow Rate FiO2 08/12/17 12:00 98.2 92 20 114/56 (75) 100 08/12/17 09:40 88 Venturi Mask 50 08/12/17 08:00 97.8 96 23 134/62 (86) 99 08/12/17 08:00 97 Partial Non-Rebreather 13.00 100 08/12/17 07:00 97 Partial Non-Rebreather 13.00 100 08/12/17 04:00 98.0 88 21 135/73 (93) 100 08/12/17 03:41 94 Partial Rebreather 12.00 08/12/17 00:00 98.0 90 21 119/58 (78) 96 08/11/17 23:45 82 Non-Rebreather 10.00 100 08/11/17 23:45 96 Non-Rebreather 15.00 08/11/17 21:00 85 Venturi Mask 50 08/11/17 20:15 92 Venturi Mask 6.00 50 08/11/17 20:00 98.3 110 32 143/60 (87) 90 08/11/17 19:10 82 Venturi Mask 35 08/11/17 19:00 82 Nasal Cannula 50 Humidified I/O 08/11/17 08/11/17 08/11/17 08/12/17 08/12/17 08/12/17 07:00 15:00 23:00 07:00 15:00 23:00 Intake Total 300 ml 98 ml 4089 ml 500 ml 400 ml Output Total 1750 ml 2100 ml 1225 ml 1300 ml Balance -1450 ml 98 ml 1989 ml -725 ml -900 ml IV Total 300 ml 98 ml 4089 ml 500 ml 400 ml Output Urine Total 1750 ml 2100 ml 1000 ml 1300 ml Stool Total 200 ml Gastric Drainage Total 0 ml 0 ml 0 ml Drainage Total 0 ml 0 ml 25 ml # Bowel Movements 1 1 Result Diagram: 08/12/1751608/12/17516 Objective Remarks VS-S Gen: Severe cachexia, having PEG today . Assessment and Plan Assessment and Plan Decubitus Poor nutrition. Severe deconditioning UTI again with Pseudomonas on Zosyn. C Diff negative. No diarrhea. PEG today with Dr Cabrera. Needs nutrition MARY. Started PPN due to Ileus Zosyn for Pseudomonas Needs aggressive PT and Nutrition to fully heal decubitus and recover Continue PO vancomycin Should have PT everyday including weekends. Needs position changes for Pulmonary toilet Continue Roxanne Consulted Dr Pelayo to consider removing left ureteral stent. Luca Geiger MD Aug 12, 2017 16:21
[2017-08-12] MEDS: FUROSEMIDE 20 MG/2 ML VIAL IV PUSH SCH (17:14)
[2017-08-12] MEDS: VIIBRYD 40 MG PO SCH (20:57)
[2017-08-12] MEDS: TAMSULOSIN HCL 0.4 MG CAP PO SCH (20:58)
[2017-08-12] MEDS: FAT EMULSION 20% INJ 250 ML (@10 mls/hr) IV SCH (21:22)
[2017-08-12] MEDS: CLINIMIX E 4.25/5 2000 mL- >42 mls/hr IV SCH ×3 (21:22)
[2017-08-13] VITALS (8 sets, daily range): BP systolic 109–132; BP diastolic 53–72; PULSE 102–122; RESP 22–27; TEMP 97.8–98.8; O2SAT 91–100
[2017-08-13] MEDS: RESP: ALBUTEROL 2.5 MG/IPRATROPIUM 0.5 MG NEB (SCH) NEB ×6 (00:11→21:36)
[2017-08-13] MEDS: oxyCODONE/ACETAMINOPHEN 7.5 MG/325 MG TAB PO PRN ×2 (02:06→07:44)
[2017-08-13] MEDS: METOPROLOL TARTRATE 5 MG/5 ML VIAL IV PUSH PRN ×2 (03:43→11:03)
[2017-08-13 04:53] LABS: AUTOMATED NEUTROPHIL # 15.9 TH/MM3 (1.8-7.7); BASOPHIL % 0.1 % (0.0-2.0); HEMATOCRIT 25.3 % (39.0-51.0); LYMPH % 1.4 % (9.0-44.0); LYMPHOCYTE # 0.2 TH/MM3 (1.0-4.8); MEAN CELL VOLUME 90.7 FL (80.0-100.0); MEAN CORPUSCULAR HEMOGLOBIN 30.6 PG (27.0-34.0); MEAN CORPUSCULAR HGB CONC 33.7 % (32.0-36.0); MONO % 3.7 % (0.0-8.0); NEUT % 94.8 % (16.0-70.0); PLATELET COUNT 219 TH/MM3 (150-450); RED BLOOD COUNT 2.79 MIL/MM3 (4.50-5.90); RED CELL DISTRIBUTION WIDTH 19.7 % (11.6-17.2); WHITE BLOOD COUNT 16.7 TH/MM3 (4.0-11.0)
[2017-08-13 05:03] LABS: HEMO FLAGS AUTO DIFF
[2017-08-13 05:25] LABS: BANDS 3 % (0-6); METAMYELOCYTES 1 % (0-1); NEUTROPHIL # MANUAL DIFF 16.4 TH/MM3 (1.8-7.7); POLYS (SEG NEUTROPHILS) 94 % (16-70); SCAN/DIFF FINAL DIFF MANUAL; WBC DIFF SAMPLE 100
[2017-08-13 05:26] LABS: BICARBONATE 26.9 MEQ/L (21.0-32.0); CALCIUM-PROTEIN CORRECTED 8.1 MG/DL (8.5-10.1); MAGNESIUM 1.6 MG/DL (1.5-2.5); POTASSIUM 3.1 MEQ/L (3.5-5.1)
[2017-08-13 05:27] LABS: PLATELET ESTIMATE SMEAR NORMAL (NORMAL); PLATELET MORPHOLOGY NORMAL (NORMAL)
[2017-08-13] MEDS: methylPREDNISolone SOD SUCC 40 MG/1 ML VIAL IV PUSH SCH ×3 (05:33→21:12)
[2017-08-13] MEDS: METOCLOPRAMIDE HCL 10 MG/2 ML VIAL IV PUSH SCH ×3 (05:34→21:13)
[2017-08-13] MEDS: PIPERACIL-TAZO 4.5 GM PREMIX 100 ML IV SCH ×4 (05:34→23:12)
[2017-08-13] MEDS: DILTIAZEM HCL 60 MG TAB PO SCH ×3 (05:34→23:12)
--- NOTE | 2017-08-13 05:59 | RADRPT ---
EXAM DATE/TIME: 08/13/2017 04:12 [facility] COMPARISON: CHEST SINGLE AP, August 12, 2017, 11:02. INDICATIONS : Respiratory disease. MEDICAL HISTORY : Hypertension. rectal, colon cancer SURGICAL HISTORY : Appendectomy. colon resection, kidney surgery ENCOUNTER: Subsequent ACUITY: 1 week PAIN SCORE: Non-responsive. LOCATION: Bilateral chest FINDINGS: NG tube side port overlies the esophagogastric junction region. There is patchy bilateral airspace di sease and right basilar atelectasis. Overall slight improved aeration of both lungs. CONCLUSION: Slight improved aeration. Joel Blancas MD on August 13, 2017 at 5:57 Board Certified Radiologist. This report was verified electronically.
[2017-08-13] MEDS: POTASSIUM CHLOR 20 MEQ PREMIX 100 ML IV PRN (06:30)
[2017-08-13] MEDS: metroNIDAZOLE 500 MG INJ 100 ML IV SCH ×2 (09:09→16:52)
[2017-08-13] MEDS: INSULIN ASPART SUPPLEMENTAL SCALE SQ SCH ×4 (09:48→21:00)
[2017-08-13] MEDS: BUDESONIDE-FORMOTEROL 160/4.5 MCG INHALER INH SCH ×2 (09:48→20:57)
[2017-08-13] MEDS: VANCOMYCIN 500 MG VIAL (FOR ORAL USE ONLY) PO SCH ×4 (09:50→21:12)
[2017-08-13] MEDS: PANTOPRAZOLE SODIUM 40 MG VIAL IV PUSH SCH (09:50)
[2017-08-13] MEDS: FUROSEMIDE 20 MG/2 ML VIAL IV PUSH SCH ×2 (09:50→18:16)
[2017-08-13] MEDS: DIGOXIN 0.125 MG TAB PO SCH (09:50)
[2017-08-13] MEDS: MEGESTROL ACETATE SUSP 400 MG/10 ML CUP PO SCH (09:51)
[2017-08-13] MEDS: ENOXAPARIN SODIUM 40 MG/0.4 ML SYRINGE SQ SCH (09:51)
--- NOTE | 2017-08-13 13:53 | EKG ---
Date Performed: 08/13/2017 Time Performed: 02:16:20 PTAGE: 67 years EKG: Sinus tachycardia with PACs with aberrant conduction There may be PJCs with aberrant conduc tion as well Low voltage Nonspecific T-wave change Abnormal ECG PREVIOUS TRACING 08/11/17 Since previous tracing, previous rhythm may have been atrial fibrill ation. This rhythm is clearly sinus with premature beats. DOCTOR: Harpreet Amos Interpretating Date/Time 08/13/2017 13:52:30
[2017-08-13] MEDS: POTASSIUM CHLOR 40 MEQ PREMIX 100 ML IV PRN (14:03)
--- NOTE | 2017-08-13 18:13 | HHI.CCPN ---
Subjective Remarks/Hospital Course The patient is a 67-year-old male with past medical history of hypertension, metastatic colon cancer, tobacco abuse, who, about 3 weeks ago underwent low anterior resection with low colorectal anastomosis, diverting ileostomy, and resection of a segment of the left ureter with ureteral anastomosis and double- J stent placement. He presented yesterday with 5 day history of abdominal discomfort and increasing weakness. No history of high output from ileostomy. He was admitted to the colorectal surgery for dehydration and probable UTI. He was placed on ciprofloxacin and IV hydration. According to Dr. Geiger's note it was difficult dissection/resection colon mass because of the pelvic sidewall adherence and the adherence to the left ureter. A portion of ureter was resected due to possibility of tumor infiltration, and Dr. Augustine Pelayo re- anastomosed the ureter and placed left-sided double-J stent. Also 1 cm hepatic metastasis in his liver that was excised. Hospitalist consultation was requested for medical management and evaluation of tachycardia today. He was seen by Dr. Jay and was placed on infusion of Cardizem for heart rate 140s. Patient became hypotensive with systolic blood pressure early 90s. Lab work showed WBC 14.5 with 44% bands, creat increase from 1.2 to 1.4 and severely increased lactate at 8 from admission lactate of 2.6. CT of the abdomen pelvis done yesterday showed probable small bowel ileus. I evaluated the patient in the ICU. He is tachycardic in 140s, hypotensive and systolic blood pressure in mid 80s. Clinically appears very dehydrated, an NG tube was placed with approximately 3 L of some coffee-ground output. ABG shows a base excess of -10 and bicarbonate 12. I have ordered 4 liter normal saline boluses start 1 amp of bicarbonate, discontinued the LR infusion, and started bicarb gtt. Discontinue ciprofloxacin, started Zosyn every 6 hours, vancomycin 1 g 1. His elevated lactic acid and bandemia most likely secondary to severe sepsis, ileus, and severe dehydration. Serial lactate is ordered SUBJ 06/19: Lactic acid remains elevated at 6.6 despite getting 9 L of crystalloid boluses in last 24 hours. Tachycardia has improved heart rate in 110s. Remains on vasopressin at 0.04 units/min. Urine output almost 1200 mL overnight, OGT initial output was almost 3 L when placed yesterday a.m. Overnight had 550 mL of greenish brown fluid output. EGD pending today rule out gastric ischemia per Dr. Romero. Apparently Flex sig was negative post op in Dr. Geiger's office 06/20: Developed A. fib with RVR. Heart rate 200. Hemodynamically unstable, synchronized cardioversion attempted by Dr. Morales 100 200 J. Given 3 g mag sulfate and 80 mEq KCl 1, 0.5 digoxin 1 and started on amiodarone and Giorgio- Synephrine. Intubated due to hemodynamic instability. Currently remains sedated. Currently on Giorgio-Synephrine 80 mcg/m, and amiodarone. CT chest abdomen pelvis again confirms gastric and small bowel distention/ileus. UO 1800 ml in 24 hours 06/21: Remains critically ill, intubated sedated, on 100 mcg/min neosynpehrine. HR better controlled. NG output 1500, UO >1.4L. Am labs pending. Ileostomy sample positive for C Diff on PO vanc IV Flagyl. 06/22: Remains intubated sedated. Urine output 3000 mL with Bumex. NGT [address] Geiger did colonoscopy which was normal. Ileoscopy showed pseudomembranous colitis. Currently on 200 mcg/min of neosynephrine. Afib with RVR HR in 140's 06/23: Remains intubated sedated, remains in atrial fibrillation with RVR. Still requiring high doses of Giorgio-Synephrine at 190 mcg/min. UO 2.5L. chest x- ray showed bilateral large effusions. KUB shows improving small bowel distention. WBC count is slightly improved 06/24: Unable to control HR. Repeat shock x3 today. remains in atrial fibrillation with RVR rates 160-170 intermittently. Remains on amiodarone but will discontinued due to elevation of liver enzymes AST 546 ALT 158. (GI notified). Start Cardizem infusion and also give Surjit 0.5 mg 1. Platelet count continues to drop from 67 to today 45. Hematology following will start of Argatroban today. Creatinine has slightly increased to 1.3 to will DC Bumex infusion 06/25: Patient remains intubated sedated critically ill. Heart rate controlled for the first time since atrial fibrillation started. Heart rate remains 80- 90. Urine output 1200 mL in 24 hours but BUN/creatinine increasing 44/1.7. I will hydrate with 50 mL/hr normal saline for 24 hours. Transaminitis increasing AST 1300 ALT 386. Ultrasound of the liver unremarkable GI following 06/26: PTT elevated due to Argatorban/Liver failure. Dr. Hurley has DCd argatroban. SMILEY pending. Pl count is 21. Currently in sinus rhythm on Cardizem infusion. Not on any pressors. Creatinine improved to 1.2. Urine output adequate. Becomes very tachypneic on attempted CPAP. Discussed with Dr. Geiger Will Start Trickle Tube Feeds 06/27: no improvements. off pathway. thrombocytopenia persists. unable to wean from mechanical ventilation. neuro exam poor. will likely need trach. 06/28: platelets worse today. SMILEY not resulted yet. failing SBT and mental status poor. poor prognosis. will need trach and LTAC placement. 06/29: Tmax 101. Currently 99.6. Tolerating trickle tube feeds. Continues to fail spontaneous breathing trials. 06/30: Lasted 1 hour spontaneous breathing trial this AM. 2.5 hours this afternoon. Currently afebrile. Hemoglobin remained stable. 07/01: lasted 4 hours on SBT, except 15 of pressure support, so not ready clinically for extubation, and even after only 4 hours, tired out and became hypoxic and tachypneic. more awake today and following commands. will likely need tracheostomy. 07/02: new fever today, but wbc normal. per ID, will culture and observe, continue flagyl/PO vanc. otherwise no changes. no improvements. 07/03: pseudomonas in sputum and urine. increase in cough and secretions. ID following and added cefepime. still weak and failing SBTs for hypoxia and tachypnea. needs tracheostomy. will need long-term rehab and likely LTAC. 07/04: Wakes up easily, follows commands. On 5 mg/hr versed. CXR pending. UO adequate. Resume SBT. Significant weight gain. approx 15 kg up. Give Bumex 2 mg IV x1 07/05: Patient is intubated sedated with 50 g per hour of fentanyl. Urine output 3 L in [address] on scheduled Bumex. Tolerating CPAP at 15/5. bring in Viibryd, which apparently patient had been on for long time. I have resumed it. 07/06: Tolerating CPAP 10/5 better today, Wakes up and following commands. Good UO with Bumex. Chest x-ray basilar opacities essentially unchanged. Increase IV Bumex to 1 mg every 12 07/07: Extubated yesterday tolerating well. Slightly tachypneic but maintain oxygen saturation and no subjective shortness of breath. Urine output remains excellent on Bumex, 2.9L in 24 hours 07/08: Lying on bed breathing comfortably urine output excellent with increased Bumex dose. 5.8 L in 24 hours. WBC count stable. Increase activity up to stretcher chair today 07/09: Tolerating by mouth diet. Eating atleast 50%. TPN reduced by half yesterday. UO remains excellent with diuresis. Attempt TPN wean off today. Breathing comfortably except intermittent tachypnea. 07/10: Appetite better, breathing more comfortably. Off TPN. UO remains excellent. Platelet count slightly dropped to 46 from 49. I will continue steroids at Solu-Medrol 20 mg IV every 12, taper only very slowly 07/11: Afebrile. Resting comfortably in bed. On nasal cannula. Reviewed vascular note does not want sacral decubitus debridement/ Subjective RECONSULT NOTE : 08/08: This is a patient well-known to the geological technical officer service. In brief this is a 67-year-old male with metastatic colon cancer status post colectomy with end ileostomy. He originally presented to the hospital with severe C. difficile ileitis and septic shock. He had a prolonged mechanical ventilation and ICU course. 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 Most recently has been on the floor and has had recurrent ileus. Over the last 3 days per nursing charting he is proximally 7 L positive as well as being 3 kg up from his weight a few days ago. His BNP is 245. He complains of worsening SOB and increasing oxygen requirement up to nonrebreather. On my evaluation this evening, he is tachypneic and dyspneic and respiratory distress on a nonrebreather. SPO2 89%. He denies chest pain, abdominal pain, nausea, vomiting. Per report, he did vomit a few times earlier today, and there is a high clinical suspicion by the hospitalist service that he had an aspiration event. He has an NG tube in place to suction. His most recent urine culture data suggests that his pseudomonas is now resistant to cefepime. For this reason infectious disease discontinued cefepime and started Zosyn today. Chest x-ray demonstrates bilateral patchy infiltrates either suggestive of volume overload or bilateral multifocal pneumonia. Limited review systems is otherwise negative unless stated above. For the remaining past medical history the patient, please see our geological technical officer consultation note from 06/18/17. SUBJ 08/09: Patient lying on the bed slightly tachypneic but respiratory distress subjectively improved. On high flow nasal cannula 80% FiO2 been just weaned to 60%. Chest x-ray shows interval improvement in bilateral infiltrates received 40 mg IV Lasix yesterday. WBC count is improved from 23.1 to 16.3. KUB shows nonspecific bowel gas pattern 08/10: Remains on high flow nasal cannula at 50% oxygen. But appears to be breathing comfortably. Urine output adequate with Lasix yesterday also. 3.9 L in 24 hours. IR unable to place PEG yesterday, Dr. Geiger will discuss with IR today 08/11: Patient is currently back on high flow NC, at 55% oxygen. CXR unchanged. K 2.8 getting replaced, IV Lasix 40 mg x1. Plan for PEG tube placement in the OR today by Dr. Watts. 08/12: Patient currently on normal partial nonrebreather with oxygen saturation 95-96%. Chest x-rays essentially unchanged I have ordered additional 40 mg Lasix today and were placed on scheduled Lasix. WBC count is trending up but patient is currently on steroids 08/13: patient CAM+ and confused this AM. o2 requirement continues to improve. hr in the 130s, afib, irregular. Objective Vital Signs Date Time Temp Pulse Resp B/P (MAP) Pulse Ox O2 Delivery O2 Flow Rate FiO2 08/13/17 16:00 98.1 122 27 132/60 (84) 93 08/13/17 07:52 Partial Rebreather 10.00 08/13/17 07:00 100 Intake and Output 08/13/17 08/13/17 08/14/17 08:00 16:00 00:00 Intake Total 20 ml 300 ml 100 ml Output Total 1650 ml Balance -1630 ml 300 ml 100 ml Result Diagram: 08/13/17 0358 08/13/17 0358 Imaging Last Impressions Chest X-Ray 07/10/17 0600 Signed Impressions: Service Date/Time: Monday, July 10, 2017 04:39 - CONCLUSION: No significant change with persistent bilateral pulmonary parenchymal opacity with lower lung zone predominance likely worsening pulmonary edema and bilateral pleural effusions. Luis Armando Michel MD Abdomen X-Ray 07/06/17 0000 Signed Impressions: Service Date/Time: Thursday, July 06, 2017 13:44 - CONCLUSION: 1. Gaseous distention of multiple bowel loops. This has slightly improved. 2. Left-sided nephroureteral stent in good position. Sarwat Suarez MD Liver Ultrasound 06/24/17 0000 Signed Impressions: Service Date/Time: Saturday, June 24, 2017 16:38 - CONCLUSION: 1. Small volume ascites. 2. Small right effusion. Pierce Ospina Jr., MD Upper Extremity Ultrasound 06/23/17 0000 Signed Impressions: Service Date/Time: June 20:03 - CONCLUSION: Noncompressibility right cephalic vein and left basilic vein consistent with venous thrombosis Trav Hsieh MD Lower Extremity Ultrasound 06/23/17 0000 Signed Impressions: Service Date/Time: June 20:16 - CONCLUSION: Normal examination. No evidence DVT Trav Hsieh MD Chest CT 06/20/17 0000 Signed Impressions: Service Date/Time: Tuesday, June 20, 2017 07:42 - CONCLUSION: 1. Bilateral effusions and consolidative changes in both lung bases. Bao Lora MD Abdomen/Pelvis CT 06/20/17 0000 Signed Impressions: Service Date/Time: Tuesday, June 20, 2017 07:39 - CONCLUSION: 1. Dilated stomach and multiple dilated loops of small bowel, likely ileus. 2. No definite gastric volvulus. 3. Fat containing right inguinal hernia which also contains small portion of the urinary bladder and minimal fluid. 4. Left-sided nephroureteral stent in good position. 5. Bibasilar consolidation and small pleural effusions. Sarwat Suarez MD Objective Remarks GENERAL: 67-year-old male lying on bed, on nc o2. SKIN: Warm and dry. HEENT: Normal cephalic. Atraumatic. Extraocular muscles intact. NECK: The neck is supple. Trachea is midline. Positive JVD. CHEST: Bilateral coarse breath sounds, few basilar crackles. On nc o2. SPO2 90% . CVS: Normal rate, regular rhythm. ABDOMEN: Abdomen is soft. Ileostomy is functioning well. EXTREMITIES: No pedal edema or cyanosis. NEURO: Alert awake. Moves all extremities but weak, following commands. No focal deficits. CAM+. oriented to person only. A/P Assessment and Plan Assessment: This is a 67-year-old male with colon cancer and recurrent pseudomonal infections who presents with recurrent respiratory distress, acute hypoxic respiratory failure, clinically improving. Delirium is new: will attempt sleep/wake cycle reorientation and stress non-pharmacologic interventions. will add melatonin for sleep. Active Problems: Acute hypoxemic respiratory failure -improving. COPD Pulmonary Edema - improved. Acute intravascular volume overload - improved. Aspiration pneumonia HCAP with Pseudomonas UTI with Pseudomonas s/p Pseudomonas bacteremia s/p Partial resection of the left ureter with anastomosis and placement of double-J stent Recurrent ileus Malnutrition Metastatic colon cancer s/p resection Agitated Delirium Atrial fibrillation with intermittent rapid ventricular response Plan: Continue IV Zosyn. Continue by mouth vancomycin and Flagyl per ID Follow-up recent cultures, blood cx negative to date Previous Pseudomonas bacteremia UTI and HCAP scheduled Lasix 20 mg IV q12h TPN to 40 ml per hour. Continue NG to suction nc o2, DuoNeb, IV steroids -solumedrol reduced to 40 q8h 12/6 Continue Symbicort, Spiriva, EzPAP, acapella Relative contraindication of BiPAP being high aspiration risk, ileus IR was unable to place PEG tube. D/W Dr. Pelayo re: ureteral stent removal- recommended postponing until more stable add melatonin sleep/wake re-orientation increase cardizem to 90 mg po q6h if stable on NC o2 another 24h, will transfer to step-down unit. Michi Child MD Aug 13, 2017 18:13
[2017-08-13] MEDS: CLINIMIX E 4.25/5 1000 mL- </= 42 mls/hr IV SCH ×3 (20:17)
[2017-08-13] MEDS: FAT EMULSION 20% INJ 250 ML (@10 mls/hr) IV SCH (20:17)
[2017-08-13] MEDS: VIIBRYD 40 MG PO SCH (20:59)
[2017-08-13] MEDS: MELATONIN 5 MG TAB PO SCH (21:13)
[2017-08-13] MEDS: TAMSULOSIN HCL 0.4 MG CAP PO SCH (21:13)
[2017-08-14] VITALS (8 sets, daily range): BP systolic 87–129; BP diastolic 52–74; PULSE 99–166; RESP 23–39; TEMP 96.4–99; O2SAT 89–98
[2017-08-14] MEDS: RESP: ALBUTEROL 2.5 MG/IPRATROPIUM 0.5 MG NEB (SCH) NEB ×7 (00:22→23:11)
[2017-08-14] MEDS: metroNIDAZOLE 500 MG INJ 100 ML IV SCH ×4 (01:17→23:21)
[2017-08-14] MEDS ORDERED: AMIODARONE INJ 150 MG in DEXTROSE 5% IN WATER 100ML INJ 97 ML IV ONE ×2 (03:01)
[2017-08-14] MEDS ORDERED: AMIODARONE INJ 150 MG in DEXTROSE 5% IN WATER 100ML INJ 100 ML IV ONE ×2 (03:01)
[2017-08-14] MEDS ORDERED: AMIODARONE INJ 450 MG in DEXTROSE 5% IN WATE(EXCEL) INJ 241 ML IV PRN ×2 (03:12)
[2017-08-14] MEDS ORDERED: SODIUM CHLOR 0.9% 1000 ML INJ 1,000 ML IV ONE ×2 (03:15)
[2017-08-14] MEDS: POTASSIUM CHLOR 20 MEQ PREMIX 100 ML IV PRN (04:43)
[2017-08-14] MEDS ORDERED: SODIUM CHLOR 0.9% 1000 ML INJ 1,000 ML IV SCH (04:45)
[2017-08-14 05:24] LABS: AUTOMATED NEUTROPHIL # 17.5 TH/MM3 (1.8-7.7); BASOPHIL # 0.2 TH/MM3 (0-0.2); BASOPHIL % 0.9 % (0.0-2.0); HEMATOCRIT 27.9 % (39.0-51.0); LYMPH % 1.6 % (9.0-44.0); LYMPHOCYTE # 0.3 TH/MM3 (1.0-4.8); MEAN CELL VOLUME 91.1 FL (80.0-100.0); MEAN CORPUSCULAR HEMOGLOBIN 29.6 PG (27.0-34.0); MEAN CORPUSCULAR HGB CONC 32.4 % (32.0-36.0); MONO % 3.2 % (0.0-8.0); NEUT % 94.3 % (16.0-70.0); PLATELET COUNT 258 TH/MM3 (150-450); RED BLOOD COUNT 3.06 MIL/MM3 (4.50-5.90); RED CELL DISTRIBUTION WIDTH 19.9 % (11.6-17.2); WHITE BLOOD COUNT 18.6 TH/MM3 (4.0-11.0)
[2017-08-14 05:26] LABS: HEMO FLAGS AUTO DIFF
[2017-08-14 05:38] LABS: INTERNATIONAL NORMALIZED RATIO 1.2 RATIO; PROTHROMBIN TIME - PATIENT 12.6 SEC (9.8-11.6)
[2017-08-14] MEDS: PIPERACIL-TAZO 4.5 GM PREMIX 100 ML IV SCH ×4 (05:58→22:47)
[2017-08-14] MEDS: DILTIAZEM HCL 60 MG TAB PO SCH ×4 (05:59→22:47)
[2017-08-14] MEDS: methylPREDNISolone SOD SUCC 40 MG/1 ML VIAL IV PUSH SCH ×3 (05:59→21:20)
[2017-08-14] MEDS: METOCLOPRAMIDE HCL 10 MG/2 ML VIAL IV PUSH SCH ×3 (05:59→21:20)
[2017-08-14 06:00] LABS: BICARBONATE 24.7 MEQ/L (21.0-32.0); CALCIUM-PROTEIN CORRECTED 8.2 MG/DL (8.5-10.1); MAGNESIUM 1.6 MG/DL (1.5-2.5); TOTAL BILIRUBIN ADULT 1.2 MG/DL (0.2-1.0)
[2017-08-14] MEDS ORDERED: MAGNESIUM SULFATE 4 GM PREMIX 100 ML IV ONE (06:30)
--- NOTE | 2017-08-14 07:47 | HHI.CCPN ---
Subjective Remarks/Hospital Course The patient is a 67-year-old male with past medical history of hypertension, metastatic colon cancer, tobacco abuse, who, about 3 weeks ago underwent low anterior resection with low colorectal anastomosis, diverting ileostomy, and resection of a segment of the left ureter with ureteral anastomosis and double- J stent placement. He presented yesterday with 5 day history of abdominal discomfort and increasing weakness. No history of high output from ileostomy. He was admitted to the colorectal surgery for dehydration and probable UTI. He was placed on ciprofloxacin and IV hydration. According to Dr. Geiger's note it was difficult dissection/resection colon mass because of the pelvic sidewall adherence and the adherence to the left ureter. A portion of ureter was resected due to possibility of tumor infiltration, and Dr. Augustine Pelayo re- anastomosed the ureter and placed left-sided double-J stent. Also 1 cm hepatic metastasis in his liver that was excised. Hospitalist consultation was requested for medical management and evaluation of tachycardia today. He was seen by Dr. Jay and was placed on infusion of Cardizem for heart rate 140s. Patient became hypotensive with systolic blood pressure early 90s. Lab work showed WBC 14.5 with 44% bands, creat increase from 1.2 to 1.4 and severely increased lactate at 8 from admission lactate of 2.6. CT of the abdomen pelvis done yesterday showed probable small bowel ileus. I evaluated the patient in the ICU. He is tachycardic in 140s, hypotensive and systolic blood pressure in mid 80s. Clinically appears very dehydrated, an NG tube was placed with approximately 3 L of some coffee-ground output. ABG shows a base excess of -10 and bicarbonate 12. I have ordered 4 liter normal saline boluses start 1 amp of bicarbonate, discontinued the LR infusion, and started bicarb gtt. Discontinue ciprofloxacin, started Zosyn every 6 hours, vancomycin 1 g 1. His elevated lactic acid and bandemia most likely secondary to severe sepsis, ileus, and severe dehydration. Serial lactate is ordered SUBJ 06/19: Lactic acid remains elevated at 6.6 despite getting 9 L of crystalloid boluses in last 24 hours. Tachycardia has improved heart rate in 110s. Remains on vasopressin at 0.04 units/min. Urine output almost 1200 mL overnight, OGT initial output was almost 3 L when placed yesterday a.m. Overnight had 550 mL of greenish brown fluid output. EGD pending today rule out gastric ischemia per Dr. Romero. Apparently Flex sig was negative post op in Dr. Geiger's office 06/20: Developed A. fib with RVR. Heart rate 200. Hemodynamically unstable, synchronized cardioversion attempted by Dr. Morales 100 200 J. Given 3 g mag sulfate and 80 mEq KCl 1, 0.5 digoxin 1 and started on amiodarone and Giorgio- Synephrine. Intubated due to hemodynamic instability. Currently remains sedated. Currently on Giorgio-Synephrine 80 mcg/m, and amiodarone. CT chest abdomen pelvis again confirms gastric and small bowel distention/ileus. UO 1800 ml in 24 hours 06/21: Remains critically ill, intubated sedated, on 100 mcg/min neosynpehrine. HR better controlled. NG output 1500, UO >1.4L. Am labs pending. Ileostomy sample positive for C Diff on PO vanc IV Flagyl. 06/22: Remains intubated sedated. Urine output 3000 mL with Bumex. NGT [address] Geiger did colonoscopy which was normal. Ileoscopy showed pseudomembranous colitis. Currently on 200 mcg/min of neosynephrine. Afib with RVR HR in 140's 06/23: Remains intubated sedated, remains in atrial fibrillation with RVR. Still requiring high doses of Giorgio-Synephrine at 190 mcg/min. UO 2.5L. chest x- ray showed bilateral large effusions. KUB shows improving small bowel distention. WBC count is slightly improved 06/24: Unable to control HR. Repeat shock x3 today. remains in atrial fibrillation with RVR rates 160-170 intermittently. Remains on amiodarone but will discontinued due to elevation of liver enzymes AST 546 ALT 158. (GI notified). Start Cardizem infusion and also give Surjit 0.5 mg 1. Platelet count continues to drop from 67 to today 45. Hematology following will start of Argatroban today. Creatinine has slightly increased to 1.3 to will DC Bumex infusion 06/25: Patient remains intubated sedated critically ill. Heart rate controlled for the first time since atrial fibrillation started. Heart rate remains 80- 90. Urine output 1200 mL in 24 hours but BUN/creatinine increasing 44/1.7. I will hydrate with 50 mL/hr normal saline for 24 hours. Transaminitis increasing AST 1300 ALT 386. Ultrasound of the liver unremarkable GI following 06/26: PTT elevated due to Argatorban/Liver failure. Dr. Hurley has DCd argatroban. SMILEY pending. Pl count is 21. Currently in sinus rhythm on Cardizem infusion. Not on any pressors. Creatinine improved to 1.2. Urine output adequate. Becomes very tachypneic on attempted CPAP. Discussed with Dr. Geiger Will Start Trickle Tube Feeds 06/27: no improvements. off pathway. thrombocytopenia persists. unable to wean from mechanical ventilation. neuro exam poor. will likely need trach. 06/28: platelets worse today. SMILEY not resulted yet. failing SBT and mental status poor. poor prognosis. will need trach and LTAC placement. 06/29: Tmax 101. Currently 99.6. Tolerating trickle tube feeds. Continues to fail spontaneous breathing trials. 06/30: Lasted 1 hour spontaneous breathing trial this AM. 2.5 hours this afternoon. Currently afebrile. Hemoglobin remained stable. 07/01: lasted 4 hours on SBT, except 15 of pressure support, so not ready clinically for extubation, and even after only 4 hours, tired out and became hypoxic and tachypneic. more awake today and following commands. will likely need tracheostomy. 07/02: new fever today, but wbc normal. per ID, will culture and observe, continue flagyl/PO vanc. otherwise no changes. no improvements. 07/03: pseudomonas in sputum and urine. increase in cough and secretions. ID following and added cefepime. still weak and failing SBTs for hypoxia and tachypnea. needs tracheostomy. will need long-term rehab and likely LTAC. 07/04: Wakes up easily, follows commands. On 5 mg/hr versed. CXR pending. UO adequate. Resume SBT. Significant weight gain. approx 15 kg up. Give Bumex 2 mg IV x1 07/05: Patient is intubated sedated with 50 g per hour of fentanyl. Urine output 3 L in [address] on scheduled Bumex. Tolerating CPAP at 15/5. bring in Viibryd, which apparently patient had been on for long time. I have resumed it. 07/06: Tolerating CPAP 10/5 better today, Wakes up and following commands. Good UO with Bumex. Chest x-ray basilar opacities essentially unchanged. Increase IV Bumex to 1 mg every 12 07/07: Extubated yesterday tolerating well. Slightly tachypneic but maintain oxygen saturation and no subjective shortness of breath. Urine output remains excellent on Bumex, 2.9L in 24 hours 07/08: Lying on bed breathing comfortably urine output excellent with increased Bumex dose. 5.8 L in 24 hours. WBC count stable. Increase activity up to stretcher chair today 07/09: Tolerating by mouth diet. Eating atleast 50%. TPN reduced by half yesterday. UO remains excellent with diuresis. Attempt TPN wean off today. Breathing comfortably except intermittent tachypnea. 07/10: Appetite better, breathing more comfortably. Off TPN. UO remains excellent. Platelet count slightly dropped to 46 from 49. I will continue steroids at Solu-Medrol 20 mg IV every 12, taper only very slowly 07/11: Afebrile. Resting comfortably in bed. On nasal cannula. Reviewed vascular note does not want sacral decubitus debridement/ Subjective RECONSULT NOTE : 08/08: This is a patient well-known to the mirror framer service. In brief this is a 67-year-old male with metastatic colon cancer status post colectomy with end ileostomy. He originally presented to the hospital with severe C. difficile ileitis and septic shock. He had a prolonged mechanical ventilation and ICU course. 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 Most recently has been on the floor and has had recurrent ileus. Over the last 3 days per nursing charting he is proximally 7 L positive as well as being 3 kg up from his weight a few days ago. His BNP is 245. He complains of worsening SOB and increasing oxygen requirement up to nonrebreather. On my evaluation this evening, he is tachypneic and dyspneic and respiratory distress on a nonrebreather. SPO2 89%. He denies chest pain, abdominal pain, nausea, vomiting. Per report, he did vomit a few times earlier today, and there is a high clinical suspicion by the hospitalist service that he had an aspiration event. He has an NG tube in place to suction. His most recent urine culture data suggests that his pseudomonas is now resistant to cefepime. For this reason infectious disease discontinued cefepime and started Zosyn today. Chest x-ray demonstrates bilateral patchy infiltrates either suggestive of volume overload or bilateral multifocal pneumonia. Limited review systems is otherwise negative unless stated above. For the remaining past medical history the patient, please see our mirror framer consultation note from 06/18/17. SUBJ 08/09: Patient lying on the bed slightly tachypneic but respiratory distress subjectively improved. On high flow nasal cannula 80% FiO2 been just weaned to 60%. Chest x-ray shows interval improvement in bilateral infiltrates received 40 mg IV Lasix yesterday. WBC count is improved from 23.1 to 16.3. KUB shows nonspecific bowel gas pattern 08/10: Remains on high flow nasal cannula at 50% oxygen. But appears to be breathing comfortably. Urine output adequate with Lasix yesterday also. 3.9 L in 24 hours. IR unable to place PEG yesterday, Dr. Geiger will discuss with IR today 08/11: Patient is currently back on high flow NC, at 55% oxygen. CXR unchanged. K 2.8 getting replaced, IV Lasix 40 mg x1. Plan for PEG tube placement in the OR today by Dr. Watts. 08/12: Patient currently on normal partial nonrebreather with oxygen saturation 95-96%. Chest x-rays essentially unchanged I have ordered additional 40 mg Lasix today and were placed on scheduled Lasix. WBC count is trending up but patient is currently on steroids 08/13: patient CAM+ and confused this AM. o2 requirement continues to improve. hr in the 130s, afib, irregular. 08/14: very difficult to control afib RVR overnight. patient has history of refractory RVR, which during prior acute illnesses was not rate controlled despite medication and multiple cardioversion attempts. in the past, digoxin, electrolyte replacement, and diltiazem were the most effective treatments. he has had elevated LFTs in the past which were thought to be related to amiodarone. this morning, heart rate continues to be in the 170s. blood pressure is borderline hypotensive. yesterday diltiazem was increased to 90mg po q6h. dig level pending this AM. hypokalemic. Objective Vital Signs Date Time Temp Pulse Resp B/P (MAP) Pulse Ox O2 Delivery O2 Flow Rate FiO2 08/14/17 04:33 111 110/57 08/14/17 04:00 98.8 30 92 08/13/17 21:38 Nasal Cannula 4.00 08/13/17 07:00 100 Intake and Output 08/14/17 08/14/17 08/15/17 08:00 16:00 00:00 Intake Total 2343 ml Output Total 1500 ml Balance 843 ml Result Diagram: 08/14/17 0354 08/14/17 0354 Imaging Last Impressions Chest X-Ray 07/10/17 0600 Signed Impressions: Service Date/Time: Monday, July 10, 2017 04:39 - CONCLUSION: No significant change with persistent bilateral pulmonary parenchymal opacity with lower lung zone predominance likely worsening pulmonary edema and bilateral pleural effusions. Luis Armando Michel MD Abdomen X-Ray 07/06/17 0000 Signed Impressions: Service Date/Time: Thursday, July 06, 2017 13:44 - CONCLUSION: 1. Gaseous distention of multiple bowel loops. This has slightly improved. 2. Left-sided nephroureteral stent in good position. Sarwat Suarez MD Liver Ultrasound 06/24/17 0000 Signed Impressions: Service Date/Time: Saturday, June 24, 2017 16:38 - CONCLUSION: 1. Small volume ascites. 2. Small right effusion. Pierce Ospina Jr., MD Upper Extremity Ultrasound 06/23/17 0000 Signed Impressions: Service Date/Time: June 20:03 - CONCLUSION: Noncompressibility right cephalic vein and left basilic vein consistent with venous thrombosis Trav Hsieh MD Lower Extremity Ultrasound 06/23/17 0000 Signed Impressions: Service Date/Time: June 20:16 - CONCLUSION: Normal examination. No evidence DVT Trav Hsieh MD Chest CT 06/20/17 0000 Signed Impressions: Service Date/Time: Tuesday, June 20, 2017 07:42 - CONCLUSION: 1. Bilateral effusions and consolidative changes in both lung bases. Bao Lora MD Abdomen/Pelvis CT 06/20/17 0000 Signed Impressions: Service Date/Time: Tuesday, June 20, 2017 07:39 - CONCLUSION: 1. Dilated stomach and multiple dilated loops of small bowel, likely ileus. 2. No definite gastric volvulus. 3. Fat containing right inguinal hernia which also contains small portion of the urinary bladder and minimal fluid. 4. Left-sided nephroureteral stent in good position. 5. Bibasilar consolidation and small pleural effusions. Sarwat Suarez MD Objective Remarks GENERAL: 67-year-old male lying on bed, on nc o2. SKIN: Warm and dry. HEENT: Normal cephalic. Atraumatic. Extraocular muscles intact. NECK: The neck is supple. Trachea is midline. Positive JVD. CHEST: Bilateral coarse breath sounds, few basilar crackles. On nc o2. . CVS: tachycardic rate in the 160s-170s, irregularly irregular. afib by tele. ABDOMEN: Abdomen is soft. Ileostomy is functioning well. EXTREMITIES: No pedal edema or cyanosis. NEURO: Alert awake. Moves all extremities but weak, following commands. No focal deficits. CAM+. oriented to person only. A/P Assessment and Plan Assessment: This is a 67-year-old male with colon cancer and recurrent pseudomonal infections who presents with recurrent respiratory distress, acute hypoxic respiratory failure. Now back in afib RVR which in the past has been very refractory. will aggressively replace electrolytes. f/u dig level- would consider re-bolusing digoxin iv if able. Delirium persists, and poor sleep overnight. will start zyprexa sublingual for this. highly complex and clinically worse today than yesterday with multiple ongoing medical problems. Active Problems: Acute hypoxemic respiratory failure -improving. COPD Pulmonary Edema - improved. Acute intravascular volume overload - improved. Aspiration pneumonia - resolving. HCAP with Pseudomonas - resolving. UTI with Pseudomonas - resolving. s/p Pseudomonas bacteremia s/p Partial resection of the left ureter with anastomosis and placement of double-J stent Recurrent ileus Acute protein calorie malnutrition- severe. Metastatic colon cancer s/p resection Agitated Delirium - persistent Atrial fibrillation with intermittent rapid ventricular response - worsening. Plan: zyprexa 2.5/2.5/5mg continue melatonin Continue IV Zosyn. Continue by mouth vancomycin and Flagyl per ID Previous Pseudomonas bacteremia UTI and HCAP scheduled Lasix 20 mg IV q12h TPN to 40 ml per hour. Continue NG to suction nc o2, DuoNeb, IV steroids -solumedrol reduced to 40 q8h / Continue Symbicort, Spiriva, EzPAP, acapella Relative contraindication of BiPAP being high aspiration risk, ileus IR was unable to place PEG tube. D/W Dr. Pelayo re: ureteral stent removal- recommended postponing until more stable continue cardizem to 90 mg po q6h continue metoprolol 5mg iv q4h stop amio infusion aggressively replace electrolytes, target mg > 2.5, k > 4.5 f/u dig level, consider iv bolus if subtherapeutic. remain in icu. clinically worse today. Michi Child MD Aug 14, 2017 07:47
[2017-08-14] MEDS: INSULIN ASPART SUPPLEMENTAL SCALE SQ SCH ×4 (08:00→21:24)
[2017-08-14] MEDS ORDERED: PILL SPLITTER OTHER PRN (08:00)
[2017-08-14] MEDS: POTASSIUM CHLOR 20 MEQ PREMIX 100 ML IV SCH ×4 (08:01→13:04)
[2017-08-14] MEDS: DIGOXIN 0.125 MG TAB PO SCH (08:02)
[2017-08-14] MEDS: FUROSEMIDE 20 MG/2 ML VIAL IV PUSH SCH ×2 (08:02→17:29)
[2017-08-14] MEDS: PANTOPRAZOLE SODIUM 40 MG VIAL IV PUSH SCH (08:02)
[2017-08-14] MEDS: BUDESONIDE-FORMOTEROL 160/4.5 MCG INHALER INH SCH ×2 (08:02→21:00)
[2017-08-14] MEDS: MEGESTROL ACETATE SUSP 400 MG/10 ML CUP PO SCH (08:03)
[2017-08-14] MEDS: ENOXAPARIN SODIUM 40 MG/0.4 ML SYRINGE SQ SCH (08:03)
[2017-08-14] MEDS: VANCOMYCIN 500 MG VIAL (FOR ORAL USE ONLY) PO SCH ×4 (08:09→21:21)
[2017-08-14 08:36] LABS: HYPERSEGMENTED POLYS 1+ (NORMAL)
[2017-08-14 08:37] LABS: PLATELET ESTIMATE SMEAR NORMAL (NORMAL); PLATELET MORPHOLOGY ENLARGED (NORMAL); SCAN/DIFF AUTO DIFF CONFIRMED
[2017-08-14] MEDS: METOPROLOL TARTRATE 5 MG/5 ML VIAL IV PUSH PRN ×2 (11:12→13:02)
[2017-08-14] MEDS ORDERED: DIGOXIN 0.5 MG/2 ML VIAL IV PUSH ONE (12:15)
[2017-08-14] MEDS: OLANZapine ODT 5 MG TAB PO SCH ×2 (17:33→21:20)
[2017-08-14] MEDS: MELATONIN 5 MG TAB PO SCH (21:19)
[2017-08-14] MEDS: TAMSULOSIN HCL 0.4 MG CAP PO SCH (21:20)
[2017-08-14] MEDS: VIIBRYD 40 MG PO SCH (21:21)
[2017-08-14] MEDS: CLINIMIX E 4.25/5 1000 mL- </= 42 mls/hr IV SCH ×3 (21:23)
[2017-08-15] VITALS (16 sets, daily range): BP systolic 115–143; BP diastolic 68–76; PULSE 102–121; RESP 28–35; TEMP 97.6–98.3; O2SAT 90–100
[2017-08-15] MEDS ORDERED: LORazepam 2 MG/ML VIAL IM PRN (02:30)
[2017-08-15] MEDS: RESP: ALBUTEROL 2.5 MG/IPRATROPIUM 0.5 MG NEB (SCH) NEB ×5 (04:03→20:06)
[2017-08-15] MEDS: PIPERACIL-TAZO 4.5 GM PREMIX 100 ML IV SCH ×3 (05:27→18:00)
[2017-08-15] MEDS: METOCLOPRAMIDE HCL 10 MG/2 ML VIAL IV PUSH SCH ×3 (05:27→20:51)
[2017-08-15] MEDS: DILTIAZEM HCL 60 MG TAB PO SCH (05:28)
[2017-08-15] MEDS: methylPREDNISolone SOD SUCC 40 MG/1 ML VIAL IV PUSH SCH ×2 (05:28→20:49)
[2017-08-15 06:10] LABS: BLOOD GAS BASE EXCESS 0.3 mmol/L (-2-2); BLOOD GAS CARBOXYHEMOGLOBIN 1.9 % (0-4); BLOOD GAS HCO3 23 mmol/L (22-26); BLOOD GAS METHEMOGLOBIN 0.8 % (0-2); BLOOD GAS O2 HGB SATURATION 84 % (90-100); BLOOD GAS OXYGEN CONTENT 9.9 Vol % (12.0-20.0); BLOOD GAS PCO2 29 mmHg (38-42); BLOOD GAS PO2 50 mmHg (61-120); BLOOD GAS TOTAL HGB 8.4 G/DL (12.0-16.0); CRITICAL VALUE YES; DRAW SITE RT BRACHIAL; LITER FLOW 6 L/M; NUMBER OF ARTERIAL PUNCTURES 1; OXYGEN DEVICE NASAL CANNULA; STAT YES; TEMP CORR TO 98.6
[2017-08-15] MEDS ORDERED: methylPREDNISolone SOD SUCC 40 MG/1 ML VIAL IV PUSH ONE (06:15)
--- NOTE | 2017-08-15 06:41 | RADRPT ---
EXAM DATE/TIME: 08/15/2017 06:05 [facility] COMPARISON: CHEST SINGLE AP, August 13, 2017, 4:12. INDICATIONS : Respiratory distress. MEDICAL HISTORY : Hypertension. Carcinoma, colon. SURGICAL HISTORY : Appendectomy. Colon resection. ENCOUNTER: Subsequent ACUITY: 1 day PAIN SCORE: Non-responsive. LOCATION: Bilateral chest FINDINGS: Interval removal of gastric tube. Patchy infiltrates in the central lower lungs bilaterally are vitaliy lar in distribution and severity when compared to prior exam. Both hemidiaphragms well delineated. The heart is normal size. CONCLUSION: Stable bilateral mid and lower lung infiltrates. Pierce Groves MD on August 15, 2017 at 6:39 Board Certified Radiologist. This report was verified electronically.
[2017-08-15] MEDS ORDERED: FUROSEMIDE 20 MG/2 ML VIAL IV PUSH ONE (06:45)
[2017-08-15] MEDS ORDERED: POTASSIUM CHLORIDE 25 MEQ EFFERVESCENT TAB PO ONE (06:45)
[2017-08-15] MEDS: OLANZapine ODT 5 MG TAB PO SCH ×3 (07:00→20:50)
[2017-08-15] MEDS ORDERED: MAGNESIUM SULFATE 1 GM PREMIX 100 ML IV ONE (07:15)
--- NOTE | 2017-08-15 07:17 | HHI.CCPN ---
Subjective Remarks/Hospital Course The patient is a 67-year-old male with past medical history of hypertension, metastatic colon cancer, tobacco abuse, who, about 3 weeks ago underwent low anterior resection with low colorectal anastomosis, diverting ileostomy, and resection of a segment of the left ureter with ureteral anastomosis and double- J stent placement. He presented yesterday with 5 day history of abdominal discomfort and increasing weakness. No history of high output from ileostomy. He was admitted to the colorectal surgery for dehydration and probable UTI. He was placed on ciprofloxacin and IV hydration. According to Dr. Geiger's note it was difficult dissection/resection colon mass because of the pelvic sidewall adherence and the adherence to the left ureter. A portion of ureter was resected due to possibility of tumor infiltration, and Dr. Augustine Pelayo re- anastomosed the ureter and placed left-sided double-J stent. Also 1 cm hepatic metastasis in his liver that was excised. Hospitalist consultation was requested for medical management and evaluation of tachycardia today. He was seen by Dr. Jay and was placed on infusion of Cardizem for heart rate 140s. Patient became hypotensive with systolic blood pressure early 90s. Lab work showed WBC 14.5 with 44% bands, creat increase from 1.2 to 1.4 and severely increased lactate at 8 from admission lactate of 2.6. CT of the abdomen pelvis done yesterday showed probable small bowel ileus. I evaluated the patient in the ICU. He is tachycardic in 140s, hypotensive and systolic blood pressure in mid 80s. Clinically appears very dehydrated, an NG tube was placed with approximately 3 L of some coffee-ground output. ABG shows a base excess of -10 and bicarbonate 12. I have ordered 4 liter normal saline boluses start 1 amp of bicarbonate, discontinued the LR infusion, and started bicarb gtt. Discontinue ciprofloxacin, started Zosyn every 6 hours, vancomycin 1 g 1. His elevated lactic acid and bandemia most likely secondary to severe sepsis, ileus, and severe dehydration. Serial lactate is ordered SUBJ 06/19: Lactic acid remains elevated at 6.6 despite getting 9 L of crystalloid boluses in last 24 hours. Tachycardia has improved heart rate in 110s. Remains on vasopressin at 0.04 units/min. Urine output almost 1200 mL overnight, OGT initial output was almost 3 L when placed yesterday a.m. Overnight had 550 mL of greenish brown fluid output. EGD pending today rule out gastric ischemia per Dr. Romero. Apparently Flex sig was negative post op in Dr. Geiger's office 06/20: Developed A. fib with RVR. Heart rate 200. Hemodynamically unstable, synchronized cardioversion attempted by Dr. Morales 100 200 J. Given 3 g mag sulfate and 80 mEq KCl 1, 0.5 digoxin 1 and started on amiodarone and Giorgio- Synephrine. Intubated due to hemodynamic instability. Currently remains sedated. Currently on Giorgio-Synephrine 80 mcg/m, and amiodarone. CT chest abdomen pelvis again confirms gastric and small bowel distention/ileus. UO 1800 ml in 24 hours 06/21: Remains critically ill, intubated sedated, on 100 mcg/min neosynpehrine. HR better controlled. NG output 1500, UO >1.4L. Am labs pending. Ileostomy sample positive for C Diff on PO vanc IV Flagyl. 06/22: Remains intubated sedated. Urine output 3000 mL with Bumex. NGT [address] Geiger did colonoscopy which was normal. Ileoscopy showed pseudomembranous colitis. Currently on 200 mcg/min of neosynephrine. Afib with RVR HR in 140's 06/23: Remains intubated sedated, remains in atrial fibrillation with RVR. Still requiring high doses of Giorgio-Synephrine at 190 mcg/min. UO 2.5L. chest x- ray showed bilateral large effusions. KUB shows improving small bowel distention. WBC count is slightly improved 06/24: Unable to control HR. Repeat shock x3 today. remains in atrial fibrillation with RVR rates 160-170 intermittently. Remains on amiodarone but will discontinued due to elevation of liver enzymes AST 546 ALT 158. (GI notified). Start Cardizem infusion and also give Surjit 0.5 mg 1. Platelet count continues to drop from 67 to today 45. Hematology following will start of Argatroban today. Creatinine has slightly increased to 1.3 to will DC Bumex infusion 06/25: Patient remains intubated sedated critically ill. Heart rate controlled for the first time since atrial fibrillation started. Heart rate remains 80- 90. Urine output 1200 mL in 24 hours but BUN/creatinine increasing 44/1.7. I will hydrate with 50 mL/hr normal saline for 24 hours. Transaminitis increasing AST 1300 ALT 386. Ultrasound of the liver unremarkable GI following 06/26: PTT elevated due to Argatorban/Liver failure. Dr. Hurley has DCd argatroban. SMILEY pending. Pl count is 21. Currently in sinus rhythm on Cardizem infusion. Not on any pressors. Creatinine improved to 1.2. Urine output adequate. Becomes very tachypneic on attempted CPAP. Discussed with Dr. Geiger Will Start Trickle Tube Feeds 06/27: no improvements. off pathway. thrombocytopenia persists. unable to wean from mechanical ventilation. neuro exam poor. will likely need trach. 06/28: platelets worse today. SMILEY not resulted yet. failing SBT and mental status poor. poor prognosis. will need trach and LTAC placement. 06/29: Tmax 101. Currently 99.6. Tolerating trickle tube feeds. Continues to fail spontaneous breathing trials. 06/30: Lasted 1 hour spontaneous breathing trial this AM. 2.5 hours this afternoon. Currently afebrile. Hemoglobin remained stable. 07/01: lasted 4 hours on SBT, except 15 of pressure support, so not ready clinically for extubation, and even after only 4 hours, tired out and became hypoxic and tachypneic. more awake today and following commands. will likely need tracheostomy. 07/02: new fever today, but wbc normal. per ID, will culture and observe, continue flagyl/PO vanc. otherwise no changes. no improvements. 07/03: pseudomonas in sputum and urine. increase in cough and secretions. ID following and added cefepime. still weak and failing SBTs for hypoxia and tachypnea. needs tracheostomy. will need long-term rehab and likely LTAC. 07/04: Wakes up easily, follows commands. On 5 mg/hr versed. CXR pending. UO adequate. Resume SBT. Significant weight gain. approx 15 kg up. Give Bumex 2 mg IV x1 07/05: Patient is intubated sedated with 50 g per hour of fentanyl. Urine output 3 L in [address] on scheduled Bumex. Tolerating CPAP at 15/5. bring in Viibryd, which apparently patient had been on for long time. I have resumed it. 07/06: Tolerating CPAP 10/5 better today, Wakes up and following commands. Good UO with Bumex. Chest x-ray basilar opacities essentially unchanged. Increase IV Bumex to 1 mg every 12 07/07: Extubated yesterday tolerating well. Slightly tachypneic but maintain oxygen saturation and no subjective shortness of breath. Urine output remains excellent on Bumex, 2.9L in 24 hours 07/08: Lying on bed breathing comfortably urine output excellent with increased Bumex dose. 5.8 L in 24 hours. WBC count stable. Increase activity up to stretcher chair today 07/09: Tolerating by mouth diet. Eating atleast 50%. TPN reduced by half yesterday. UO remains excellent with diuresis. Attempt TPN wean off today. Breathing comfortably except intermittent tachypnea. 07/10: Appetite better, breathing more comfortably. Off TPN. UO remains excellent. Platelet count slightly dropped to 46 from 49. I will continue steroids at Solu-Medrol 20 mg IV every 12, taper only very slowly 07/11: Afebrile. Resting comfortably in bed. On nasal cannula. 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 In brief this is a 67-year-old male with metastatic colon cancer status post colectomy with end ileostomy. He originally presented to the hospital with severe C. difficile ileitis and septic shock. He had a prolonged mechanical ventilation and ICU course. 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 Most recently has been on the floor and has had recurrent ileus. Over the last 3 days per nursing charting he is proximally 7 L positive as well as being 3 kg up from his weight a few days ago. His BNP is 245. He complains of worsening SOB and increasing oxygen requirement up to nonrebreather. On my evaluation this evening, he is tachypneic and dyspneic and respiratory distress on a nonrebreather. SPO2 89%. He denies chest pain, abdominal pain, nausea, vomiting. Per report, he did vomit a few times earlier today, and there is a high clinical suspicion by the hospitalist service that he had an aspiration event. He has an NG tube in place to suction. His most recent urine culture data suggests that his pseudomonas is now resistant to cefepime. For this reason infectious disease discontinued cefepime and started Zosyn today. Chest x-ray demonstrates bilateral patchy infiltrates either suggestive of volume overload or bilateral multifocal pneumonia. Limited review systems is otherwise negative unless stated above. For the remaining past medical history the patient, please see our hydroelectric station operator chief consultation note from 06/18/17. SUBJ 08/09: Patient lying on the bed slightly tachypneic but respiratory distress subjectively improved. On high flow nasal cannula 80% FiO2 been just weaned to 60%. Chest x-ray shows interval improvement in bilateral infiltrates received 40 mg IV Lasix yesterday. WBC count is improved from 23.1 to 16.3. KUB shows nonspecific bowel gas pattern 08/10: Remains on high flow nasal cannula at 50% oxygen. But appears to be breathing comfortably. Urine output adequate with Lasix yesterday also. 3.9 L in 24 hours. IR unable to place PEG yesterday, Dr. Geiger will discuss with IR today 08/11: Patient is currently back on high flow NC, at 55% oxygen. CXR unchanged. K 2.8 getting replaced, IV Lasix 40 mg x1. Plan for PEG tube placement in the OR today by Dr. Watts. 08/12: Patient currently on normal partial nonrebreather with oxygen saturation 95-96%. Chest x-rays essentially unchanged I have ordered additional 40 mg Lasix today and were placed on scheduled Lasix. WBC count is trending up but patient is currently on steroids 08/13: patient CAM+ and confused this AM. o2 requirement continues to improve. hr in the 130s, afib, irregular. 08/14: very difficult to control afib RVR overnight. patient has history of refractory RVR, which during prior acute illnesses was not rate controlled despite medication and multiple cardioversion attempts. in the past, digoxin, electrolyte replacement, and diltiazem were the most effective treatments. he has had elevated LFTs in the past which were thought to be related to amiodarone. this morning, heart rate continues to be in the 170s. blood pressure is borderline hypotensive. yesterday diltiazem was increased to 90mg po q6h. dig level pending this AM. hypokalemic. 08/15: Acute respiratory decompensation with hypoxia. Placed on 100% nonrebreather with improvement in oxygen saturation of 100%. Tachypneic, but able to communicate. Chest x-ray remains unchanged. I will give additional Lasix total 40 mg now with potassium replacement. Keep NPO, re insert NGT (will d/w CRS) and get speech for swallow eval. in and out of A. fib currently sinus with PVCs Objective Vital Signs Date Time Temp Pulse Resp B/P (MAP) Pulse Ox O2 Delivery O2 Flow Rate FiO2 08/15/17 06:49 95 High Flow Nasal Cannula 25.00 40 08/15/17 06:00 114 08/15/17 04:00 98.0 28 136/72 (93) Intake and Output 08/15/17 08/15/17 08/16/17 08:00 16:00 00:00 Intake Total 713 ml Output Total 1450 ml Balance -737 ml Result Diagram: 08/14/17 0354 08/14/17 0354 Other Results Laboratory Tests Test 08/15/17 06:00 Blood Gas Puncture Site RT BRACHIAL Blood Gas Patient Temperature 98.6 Blood Gas HCO3 23 mmol/L (22-26) Blood Gas Base Excess 0.3 mmol/L (-2-2) Blood Gas Oxygen Saturation 84 % (90-100) Arterial Blood pH 7.52 (7.380-7.420) Arterial Blood Partial Pressure CO2 29 mmHg (38-42) Arterial Blood Partial Pressure O2 50 mmHg (61-120) Arterial Blood Oxygen Content 9.9 Vol % (12.0-20.0) Arterial Blood Carboxyhemoglobin 1.9 % (0-4) Arterial Blood Methemoglobin 0.8 % (0-2) Blood Gas Hemoglobin 8.4 G/DL (12.0-16.0) Oxygen Delivery Device NASAL CANNULA Blood Gas Liter Flow 6 L/M Imaging Last Impressions Chest X-Ray 07/10/17 0600 Signed Impressions: Service Date/Time: Monday, July 10, 2017 04:39 - CONCLUSION: No significant change with persistent bilateral pulmonary parenchymal opacity with lower lung zone predominance likely worsening pulmonary edema and bilateral pleural effusions. Luis Armando Michel MD Abdomen X-Ray 07/06/17 0000 Signed Impressions: Service Date/Time: Thursday, July 06, 2017 13:44 - CONCLUSION: 1. Gaseous distention of multiple bowel loops. This has slightly improved. 2. Left-sided nephroureteral stent in good position. Sarwat Suarez MD Liver Ultrasound 06/24/17 Signed Impressions: Service Date/Time: Saturday, June 24, 2017 16:38 - CONCLUSION: 1. Small volume ascites. 2. Small right effusion. Pierce Ospina Jr., MD Upper Extremity Ultrasound 06/23/17 Signed Impressions: Service Date/Time: June 20:03 - CONCLUSION: Noncompressibility right cephalic vein and left basilic vein consistent with venous thrombosis Trav Hsieh MD Lower Extremity Ultrasound 06/23/17 Signed Impressions: Service Date/Time: June 20:16 - CONCLUSION: Normal examination. No evidence DVT Trav Hsieh MD Chest CT 06/20/17 Signed Impressions: Service Date/Time: Tuesday, June 20, 2017 07:42 - CONCLUSION: 1. Bilateral effusions and consolidative changes in both lung bases. Bao Lora MD Abdomen/Pelvis CT 06/20/17 Signed Impressions: Service Date/Time: Tuesday, June 20, 2017 07:39 - CONCLUSION: 1. Dilated stomach and multiple dilated loops of small bowel, likely ileus. 2. No definite gastric volvulus. 3. Fat containing right inguinal hernia which also contains small portion of the urinary bladder and minimal fluid. 4. Left-sided nephroureteral stent in good position. 5. Bibasilar consolidation and small pleural effusions. Sarwat Suarez MD Objective Remarks GENERAL: 67-year-old male lying on bed, in moderate respiratory distress currently on 100% nonrebreather SKIN: Warm and dry. HEENT: Normocephalic. Atraumatic. Extraocular muscles intact. NECK: The neck is supple. Trachea is midline. Positive JVD. CHEST: Bilateral coarse breath sounds, few basilar crackles. On 100% o2. . CVS: tachycardic rate in the 160s-170s, irregularly irregular. afib by tele. ABDOMEN: Abdomen is soft. Ileostomy is functioning well. EXTREMITIES: No pedal edema or cyanosis. NEURO: More somnolent today, lethargic. Moves all extremities but weak, following commands. No focal deficits. Oriented to person only. A/P Assessment and Plan Assessment: This is a 67-year-old male with colon cancer and recurrent pseudomonal infections who presents with recurrent respiratory distress, acute hypoxic respiratory failure. Now back in afib RVR which in the past has been very refractory. will aggressively replace electrolytes. f/u dig level- would consider re-bolusing digoxin iv if able. Delirium persists, and poor sleep overnight. will start zyprexa sublingual for this. highly complex and clinically worse today than yesterday with multiple ongoing medical problems. Now with acute worsening of hypoxemia. Possibility of aspiration, will reevaluate with speech therapy Active Problems: Acute hypoxemic respiratory failure COPD with exacerbation Aspiration pneumonia Pulmonary Edema Acute intravascular volume overload HCAP with Pseudomonas Agitated Delirium - persistent Atrial fibrillation with intermittent rapid ventricular response C Diff ileitis UTI with Pseudomonas - resolving. s/p Pseudomonas bacteremia s/p Partial resection of the left ureter with anastomosis and placement of double-J stent Recurrent ileus Acute protein calorie malnutrition- severe. Metastatic colon cancer s/p resection Plan: Acute deterioration in respiratory status with hypoxia, chest x-ray essentially unchanged. Patient is possibly aspirating Placed on 100 percent nonrebreather wean oxygen to keep SAo2> 88%. Change to hi emily oxygen Keep nothing by mouth requests reevaluation with speech therapy for swallow Started on zyprexa 2.5/2.5/5mg 08/14/[address] Child, continue melatonin Continue IV Zosyn. Continue by mouth vancomycin and Flagyl per ID Previous Pseudomonas bacteremia UTI and HCAP Scheduled Lasix 20 mg IV q12h. given additional 20 mg Lasix with potassium replacement TPN 40 ml per hour. NG was removed yesterday, need reinsertion for medication administration DuoNeb, IV steroids -solumedrol reduced to 40 q8h 08/10 Continue Symbicort, Spiriva, EzPAP, acapella Relative contraindication of BiPAP being high aspiration risk, ileus, no absolute contraindication IR, GI unable to place PEG tube. Options are surgical placement vs continued NG feed with TPN D/W Dr. Pelayo re: ureteral stent removal- recommended postponing until more stable Hold cardizem to 90 mg po q6h, place on cardizem gtt continue metoprolol 5mg iv q4h Change Digoxin to IV stopped amio infusion aggressively replace electrolytes, target mg > 2.0, k > 4.0 f/u dig level, consider iv bolus if subtherapeutic. remain in icu. clinically worse today. CCT 35 MIN. Shiva Segovia MD Aug 15, 2017 07:16
[2017-08-15] MEDS: FUROSEMIDE 20 MG/2 ML VIAL IV PUSH SCH ×2 (07:27→18:00)
[2017-08-15] MEDS: POTASSIUM CHLOR 20 MEQ PREMIX 100 ML IV PRN ×2 (07:29→07:30)
[2017-08-15] MEDS: INSULIN ASPART SUPPLEMENTAL SCALE SQ SCH ×4 (08:00→21:00)
[2017-08-15] MEDS: POTASSIUM CHLOR 20 MEQ PREMIX 100 ML IV SCH ×2 (08:00→10:00)
[2017-08-15] MEDS: metroNIDAZOLE 500 MG INJ 100 ML IV SCH ×2 (08:33→16:00)
[2017-08-15] MEDS: DIGOXIN 0.5 MG/2 ML VIAL IV PUSH SCH (08:33)
[2017-08-15] MEDS: PANTOPRAZOLE SODIUM 40 MG VIAL IV PUSH SCH (08:34)
[2017-08-15] MEDS: VANCOMYCIN 500 MG VIAL (FOR ORAL USE ONLY) PO SCH ×4 (08:34→20:49)
[2017-08-15] MEDS: ENOXAPARIN SODIUM 40 MG/0.4 ML SYRINGE SQ SCH (08:34)
[2017-08-15] MEDS: DILTIAZEM INJ 125 MG in SODIUM CHLORIDE 0.9% INJ 100 ML IV PRN ×2 (08:35→16:27)
--- NOTE | 2017-08-15 08:56 | HHI.PR ---
Subjective Remarks Dr Saenz did not place PEG. Apparently dictation is incorrect. Pt much more confused yesterday and today. Objective Vital Signs Date Time Temp Pulse Resp B/P (MAP) Pulse Ox O2 Delivery O2 Flow Rate FiO2 08/15/17 08:35 125 143/76 08/15/17 06:49 95 High Flow Nasal Cannula 25.00 40 08/15/17 06:23 100 Non-Rebreather 12.00 100 08/15/17 06:00 114 08/15/17 04:00 98.0 106 28 136/72 (93) 90 08/15/17 04:00 106 08/15/17 02:00 102 08/15/17 00:00 108 08/15/17 00:00 97.6 108 33 131/68 (89) 99 08/14/17 22:00 102 08/14/17 20:00 99 08/14/17 20:00 96.8 99 33 129/65 (86) 98 08/14/17 19:42 92 Nasal Cannula 4.00 08/14/17 19:00 90 Nasal Cannula 5.00 08/14/17 16:00 96.4 102 30 111/73 (86) 89 08/14/17 12:00 99.0 166 39 115/74 (88) 89 I/O 08/14/17 08/14/17 08/14/17 08/15/17 08/15/17 08/15/17 07:00 15:00 23:00 07:00 15:00 23:00 Intake Total 2543 ml 914 ml 3559 ml 813 ml Output Total 1500 ml 100 ml 945 ml 1450 ml Balance 1043 ml 814 ml 2614 ml -637 ml Intake Oral 240 ml 360 ml 100 ml 50 ml IV Total 2303 ml 554 ml 2681 ml 427 ml TPN/PPN 778 ml 336 ml Output Urine Total 1200 ml 900 ml 1200 ml Stool Total 300 ml 100 ml 25 ml 200 ml Drainage Total 0 ml 20 ml 50 ml Result Diagram: 08/14/17 0354 08/15/17 0335 Objective Remarks VS-S Gen:Pt confused and restrained this AM Abd: soft,flat,non tender . Assessment and Plan Assessment and Plan Decubitus Poor nutrition. Severe deconditioning C Diff negative. No diarrhea. Confused today Zosyn for Pseudomonas Needs aggressive PT and Nutrition to fully heal decubitus and recover Continue PO vancomycin Should have PT everyday including weekends. Needs position changes for Pulmonary toilet Continue Roxanne D/W Dr Segovia possible microaspiration Consulted Dr Pelayo to consider removing left ureteral stent. Luca Geiger MD Aug 15, 2017 08:55
[2017-08-15] MEDS: BUDESONIDE-FORMOTEROL 160/4.5 MCG INHALER INH SCH ×2 (09:00→21:00)
[2017-08-15] MEDS: TIOTROPIUM BROMIDE 18 MCG INH INH SCH (09:00)
[2017-08-15] MEDS: HALOPERIDOL LACTATE 5 MG/ML AMP IV PRN ×3 (12:00→21:31)
--- NOTE | 2017-08-15 12:03 | RADRPT ---
EXAM DATE/TIME: 08/15/2017 11:43 [facility] COMPARISON: No previous studies available for comparison. INDICATIONS : Post PICC line placement. MEDICAL HISTORY : Hypertension. Carcinoma, colon. SURGICAL HISTORY : Appendectomy. Colon resection. ENCOUNTER: Subsequent ACUITY: 1 week PAIN SCORE: Non-responsive. LOCATION: Bilateral chest FINDINGS: A single view of the chest demonstrates bibasilar densities. Right-sided PICC line seen with tip in t he SVC.. The cardiomediastinal contours are unremarkable. Osseous structures are intact. CONCLUSION: 1. Bibasilar densities. 2. Adequate placement of right-sided PICC line Sarwat Suarez MD on August 15, 2017 at 12:00 Board Certified Radiologist. This report was verified electronically.
[2017-08-15] MEDS: SODIUM HYPOCHLORITE 0.125% 500 ML BTL TOPICAL SCH (13:00)
--- NOTE | 2017-08-15 13:17 | PD.CONS ---
Consult Service Palliative Care Consult Requested By Dr. Gonzalez . Primary Care Physician Non-Staff . Reason for Consultation a. To assist with evaluation and management of symptoms including: Dyspnea , confusion, dysphagia b. To assist medical decision maker(s) with: better understanding of current medical conditions; weighing benefits/burdens of medical treatment options; making medical treatment decisions. . 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 He then underwent radiation therapy and also finished with therapy on 03/02/17. Dr. Geiger then took him to the operating room on 05/26/17 where he had a rectosigmoidectomy, a wedge resection of a liver mass, and a diverging closed loop ileostomy. The post surgery scans did not reveal any obvious metastatic disease. The patient was able to go home and did relatively well for a few days. However, he then developed a vague discomfort in his abdomen, and had some episodes of vomiting. He saw Dr. Geiger, had some lab work done that revealed some mild dehydration, and he was admitted to the hospital on 06/17/17. A CT scan revealed evidence of ileus, and within 24 hours the patient developed septic shock. He was found to have pneumonia, was hypotensive, and required INTUBATION on 06/18/17. Subsequent complications included the development of pseudomembranous ileitis/C. difficile, atrial fib with RVR that was difficult to control at times, a large sacral decubitus that eventually required excision and wound VAC placement (07/17/17), signs of hepatic failure that were suspected to be due to argatorban and that subsequently completely resolved, brachial and cephalic vein thrombosis in the face of trauma cytopenia (which also has resolved), and the appearance of weight loss and further deconditioning. The patient was finally able to be EXTUBATED on 07/07/17, and was showing some signs of improvement, with a little improvement in strength and oral intake. There was discussion about sending him to a Rehab facility. However, the patient then again developed the vague discomfort in his abdomen, had vomiting off and on for 3 or 4 days, and on 08/08/17 developed dyspnea again. He was readmitted to [facility], and cultures revealed Pseudomonas resistant to cefepime. Chest x-ray again showed pneumonia, and the patient appeared more debilitated. There have been [address] a PEG tube over the past few days, utilizing different technology and personnel, but those have been unsuccessful, and the patient is now on TPN; the metal technician is also considering Dobbhoff placement for enteral feeding. Over the past couple days, the patient has now developed confusion and restlessness, and he was started on some psychoactive medicine yesterday. The most recent lab work at the time of this consultation includes: * White count 18.6, hemoglobin 9.1, platelets 258,000 * Sodium 141, creatinine 0.83, albumin 1.8 * Chest x-ray with bilateral infiltrates Palliative Care was consulted to assist with symptom management, and to enter into discussions with the patient's family regarding his current illnesses, all of the recent complications, his marked debility, the prognosis, and the benefits and burdens of the various treatment choices.. . Function/Cognitive Trajectory This was a vigorous, healthy 66-year-old male who was still working full-time up to the time of his surgery in May. . Review of Systems ROS Limitations: Clinical Condition (history provided by and records), Altered Mental Status Constitutional: COMPLAINS OF: Weight loss Endocrine: DENIES: Polyuria Eyes: DENIES: Eye inflammation Ears, nose, mouth, throat: DENIES: Epistaxis Respiratory: COMPLAINS OF: Cough, Shortness of breath (recent intubation) Cardiovascular: DENIES: Chest pain Gastrointestinal: COMPLAINS OF: Vomiting, DENIES: Constipation Genitourinary: DENIES: Hematuria Musculoskeletal: DENIES: Joint Swelling, Back pain Integumentary: DENIES: Rash Hematologic/Lymphatics: DENIES: Bruising Immunologic/Allergic: DENIES: Urticaria Neurologic: DENIES: Localized weakness, Seizures Psychiatric: COMPLAINS OF: Confusion, Agitation Past Family Social History Coded Allergies: codeine (Verified Adverse Reaction, Severe, Nausea/Vomiting, 05/26/17) Past Medical History * Hypertension * Metastatic colon cancer * Remote history of pancreatitis when the patient was in his 20s * History of COPD * History of anxiety * BPH . Past Surgical History * Left knee surgery * 05/26/17 low anterior resection with rectosigmoidectomy with lower anterior resection/coloanal anastomosis, resection and reanastomosis of the left ureter with ureteral anastomosis and double-J stent placement, wedge resection of hepatic metastasis, mobilization of the splenic flexure, and diverting closed loop ileostomy with Dr. Geiger and Dr. Pelayo. * 07/17/17: Excision of sacral decubitus and application of wound VAC * August 2017: Unsuccessful attempts to place PEG tube . Reported Medications Reported Meds & Active Scripts Active Reported Lortab (Hydrocodone-Acetaminophen) 5-325 Mg Tab 1 Tab PO Q4-6H PRN Viibryd (Vilazodone) 40 Mg Tab 40 Mg PO HS Tamsulosin (Tamsulosin HCl) 0.4 Mg Cap 0.4 Mg PO HS Metoprolol Tartrate 50 Mg Tab 50 Mg PO BID . Current Medications Medications (Trade) Dose Ordered Sig/[place] Route Start Time Stop Time Status Last Admin (Zofran Inj) 4 mg Q4H PRN IV PUSH 06/17/17 22:00 08/04/17 21:21 Miscellaneous Information Patient in critical care unit? Ass... [id number] .XX 06/18/17 05:45 06/18/17 05:45 (Albuterol Neb) 2.5 mg Q2HR NEB PRN NEB 06/29/17 14:30 08/11/17 08:53 (Symbicort 160-4.5 Inh) 1 puff Q12HR INH 07/07/17 09:00 08/15/17 09:00 (Lomotil Tab) 1 tab Q6H PRN PO 07/10/17 11:00 (NovoLOG SUPPLEMENTAL SCALE) 1 ACHS SQ 07/11/17 17:00 08/15/17 08:00 (D50w (Vial) Inj) 50 ml UNSCH PRN IV PUSH 07/11/17 15:00 (Glucagon Inj) 1 mg UNSCH PRN OTHER 07/11/17 15:00 Patient Own Medication PT OWN MED: VIIB... HS PO 07/15/17 21:00 08/14/17 21:21 (Dakin'S 0.125% Soln) 500 ml MoWeFr TOPICAL 07/20/17 13:00 08/12/17 12:27 (Flomax) 0.4 mg HS PO 07/23/17 21:00 08/14/17 21:20 (Megace Liq) 400 mg DAILY PO 08/04/17 09:00 Future Hold 08/14/17 08:03 (Percocet 5-325 Mg) 1 tab Q6H PRN PO 08/04/17 14:30 08/09/17 00:28 (Percocet 7.5-325 Mg) 1 tab Q6H PRN PO 08/04/17 14:30 08/13/17 07:44 (VANCOMYCIN for oral use only) 250 mg QID PO 08/04/17 18:00 08/26/17 13:01 08/14/17 21:21 (Lanoxin) 0.125 mg DAILY PO 08/06/17 09:00 Future Hold 08/14/17 08:02 Metronidazole 100 ml @ 100 mls/hr Q8H IV 08/06/17 16:00 08/15/17 08:33 (Reglan Inj) 5 mg Q8HR IV PUSH 08/07/17 22:00 08/15/17 05:27 Piperacillin Sod/ Tazobactam Sod 100 ml @ 200 mls/hr Q6H IV 08/09/17 00:00 08/15/17 05:27 (Protonix Inj) 40 mg DAILY IV PUSH 08/09/17 15:00 08/15/17 08:34 (Lovenox Inj) 40 mg Q24H SQ 08/10/17 09:00 08/15/17 08:34 Potassium Chloride 100 ml @ 50 mls/hr Q2H PRN IV 08/11/17 06:00 08/13/17 14:03 Potassium Chloride 100 ml @ 50 mls/hr Q2H PRN IV 08/11/17 06:00 08/15/17 07:30 (K-Lyte Cl Eff) 50 meq UNSCH PRN PO 08/11/17 06:00 Potassium Chloride 100 ml @ 25 mls/hr UNSCH PRN IV 08/11/17 06:00 Potassium Chloride 100 ml @ 50 mls/hr Q2H PRN IV 08/11/17 06:00 08/14/17 04:43 Magnesium Sulfate 4 gm/Sodium Chloride 100 ml @ 50 mls/hr UNSCH PRN IV 08/11/17 06:00 08/14/17 06:50 (Mag-Ox) 800 mg UNSCH PRN PO 08/11/17 06:00 Magnesium Sulfate 2 gm/Sodium Chloride 100 ml @ 50 mls/hr UNSCH PRN IV 08/11/17 06:00 (K-Phos) 2,000 mg Q4H PRN PO 08/11/17 06:00 Sodium Phosphate 30 mmol/Sodium Chloride 250 ml @ 42 mls/hr UNSCH PRN IV 08/11/17 06:00 (K-Phos) 2,000 mg UNSCH PRN PO/TUBE 08/11/17 06:00 08/13/17 05:42 Potassium Phosphate 30 mmol/ Sodium Chloride 260 ml @ 42 mls/hr UNSCH PRN IV 08/11/17 06:00 (Lasix Inj) 20 mg BID@09,18 IV PUSH 08/12/17 18:00 08/15/17 07:27 (Duoneb Neb) 1 ampule Q4HR NEB NEB 08/12/17 12:00 08/15/17 12:09 (Lopressor Inj) 5 mg Q5M PRN IV PUSH 08/13/17 02:45 08/14/17 13:02 Multivitamins 10 ml/Folic Acid 1 mg/Amino Acids/ Electrolytes/ Dextrose 1,010.2 ml @ 40 mls/hr Q24H IV 08/13/17 20:00 08/14/17 21:23 (Cardizem) 90 mg Q6HR PO 08/14/17 00:00 Future Hold 08/14/17 22:47 (Melatonin) 5 mg HS PO 08/13/17 21:00 Future Hold 08/14/17 21:19 (ZyPREXA ZYDIS ODT) 2.5 mg AC BREAKFAST PO 08/15/17 07:00 (ZyPREXA ZYDIS ODT) 2.5 mg DAILY@1600 PO 08/14/17 16:00 08/14/17 17:33 (ZyPREXA ZYDIS ODT) 5 mg HS PO 08/14/17 21:00 08/14/17 21:20 (Pill Splitter) 1 ea UNSCH PRN OTHER 08/14/17 08:00 (Spiriva Inh) 18 mcg DAILY INH 08/15/17 09:00 08/15/17 09:00 Diltiazem HCl 125 mg/Sodium Chloride 125 ml @ 5 mls/hr TITRATE PRN IV 08/15/17 07:00 08/15/17 08:35 (Lanoxin Inj) 0.25 mg DAILY IV PUSH 08/15/17 09:00 08/15/17 08:33 (Haldol Inj) 2 mg Q4H PRN IV 08/15/17 09:00 (SoluMEDROL INJ) 40 mg Q12HR IV PUSH 08/15/17 21:00 Family History The patient's mother of alcoholism and had COPD. His father at age 87 about 20 years after suffering heart disease. There is no family history of colon or GI malignancies. . Substance Use Tobacco: One pack per day for many years Alcohol: The patient drank beer many years ago, that stopped drinking all alcohol when he was in his 20s and had developed pancreatitis. Prescription med abuse: None Illicits: None . Psychosocial History The patient was born and raised in [place], and moved to [place] with his family 23 years ago. He has been living with his . The patient has been for 51 years, and they had 3 daughters. The oldest daughter was withdrawn from life support (and in hospice) after suffering severe encephalopathy following a cardiac arrest and prolonged resuscitation in April 2017. 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 . Spiritual/Cultural Factors The patient has a [employer] background, but has been on affiliated with the worship for many years, and the does not believe he would want a visit from a pharmaceutical service representative or from hospital chaplains. . Living Will: Never completed Health Care Surrogate: Never completed Durable Power of Poising Inspector: Never completed Family/friends goals: The overall goal is to get the patient back home, even though he may remain quite weak and may even be nonambulatory. The family feels that is the most important thing, so that he can enjoy life at home and the family can enjoy him during whatever time he has left. They understand the overall prognosis is not good with the underlying malignancy and now all of the recent complications and pronounced malnutrition and deconditioning, but the goal of getting him home and functional is very important. If other even more severe complications occur during this hospitalization, then the family will reconsider the goals. . Ethical and Legal Issues There are no ethical issues that would impact the care or decision-making at this time. The patient lacks capacity for decision-making at the time of the initial consultation, and it is uncertain whether he will regain that capacity. His is the decision making proxy. . Physical Exam Vital Signs Date Time Temp Pulse Resp B/P (MAP) Pulse Ox O2 Delivery O2 Flow Rate FiO2 08/15/17 08:58 95 High Flow Nasal Cannula 25.00 40 08/15/17 08:35 125 143/76 08/15/17 06:49 95 High Flow Nasal Cannula 25.00 40 08/15/17 06:23 100 Non-Rebreather 12.00 100 08/15/17 06:00 114 08/15/17 04:00 98.0 106 28 136/72 (93) 90 08/15/17 04:00 106 08/15/17 02:00 102 08/15/17 00:00 108 08/15/17 00:00 97.6 108 33 131/68 (89) 99 08/14/17 22:00 102 08/14/17 20:00 99 08/14/17 20:00 96.8 99 33 129/65 (86) 98 08/14/17 19:42 92 Nasal Cannula 4.00 08/14/17 19:00 90 Nasal Cannula 5.00 08/14/17 16:00 96.4 102 30 111/73 (86) 89 Exam CONSTITUTIONAL/GENERAL: This is a weak, thin, confused patient, in no apparent distress. TUBES/LINES/DRAINS: Wrist restraints, Han, wound VAC, nasal cannula oxygen SKIN: No jaundice, rashes. A wound VAC is present on the sacral wound. Ecchymoses on upper extremities. No wounds seen anteriorly. Skin temperature appropriate. Not diaphoretic. HEAD: Atraumatic. Normocephalic. EYES: Pupils equal and round and reactive. Extraocular motions intact. No scleral icterus. No injection or drainage. Fundi not examined. ENT: Hearing grossly normal. Nose without bleeding or purulent drainage. Throat without visible erythema, exudates, masses, or lesions. NECK: Trachea midline. Supple, nontender. No palpable thyroid enlargement or nodularity. CARDIOVASCULAR: Irregular without murmurs, gallops, or rubs. No JVD. Peripheral pulses symmetric. RESPIRATORY/CHEST: Symmetric, unlabored respirations. Clear to auscultation. Breath sounds equal bilaterally. No wheezes, rales, or rhonchi. GASTROINTESTINAL: Abdomen soft, non-tender, nondistended. No hepato-splenomegaly , or palpable masses. Ileostomy present. Bowel sounds present. GENITOURINARY: Without palpable bladder distension. Han catheter in place. MUSCULOSKELETAL: Extremities without clubbing, cyanosis, or edema. No joint tenderness or effusion noted. No calf tenderness. No mottling or clubbing. LYMPHATICS: No palpable cervical or supraclavicular adenopathy. NEUROLOGICAL: Awake and alert. No obvious motor deficits, but he is weak globally. Moves all extremities. PSYCHIATRIC: Some restlessness is present. He is not oriented to day, month, year, but is oriented to place. . Diagnostic Tests Laboratory Laboratory Tests Test 08/13/17 03:58 08/13/17 21:26 08/14/17 03:54 08/15/17 03:35 White Blood Count 16.7 TH/MM3 (4.0-11.0) 18.6 TH/MM3 (4.0-11.0) Red Blood Count 2.79 MIL/MM3 (4.50-5.90) 3.06 MIL/MM3 (4.50-5.90) Hemoglobin 8.5 GM/DL (13.0-17.0) 9.1 GM/DL (13.0-17.0) Hematocrit 25.3 % (39.0-51.0) 27.9 % (39.0-51.0) Mean Corpuscular Volume 90.7 FL (80.0-100.0) 91.1 FL (80.0-100.0) Mean Corpuscular Hemoglobin 30.6 PG (27.0-34.0) 29.6 PG (27.0-34.0) Mean Corpuscular Hemoglobin Concent 33.7 % (32.0-36.0) 32.4 % (32.0-36.0) Red Cell Distribution Width 19.7 % (11.6-17.2) 19.9 % (11.6-17.2) Platelet Count 219 TH/MM3 (150-450) 258 TH/MM3 (150-450) Mean Platelet Volume 8.8 FL (7.0-11.0) 9.2 FL (7.0-11.0) Neutrophils (%) (Auto) 94.8 % (16.0-70.0) 94.3 % (16.0-70.0) Lymphocytes (%) (Auto) 1.4 % (9.0-44.0) 1.6 % (9.0-44.0) Monocytes (%) (Auto) 3.7 % (0.0-8.0) 3.2 % (0.0-8.0) Eosinophils (%) (Auto) 0.0 % (0.0-4.0) 0.0 % (0.0-4.0) Basophils (%) (Auto) 0.1 % (0.0-2.0) 0.9 % (0.0-2.0) Neutrophils # (Auto) 15.9 TH/MM3 (1.8-7.7) 17.5 TH/MM3 (1.8-7.7) Lymphocytes # (Auto) 0.2 TH/MM3 (1.0-4.8) 0.3 TH/MM3 (1.0-4.8) Monocytes # (Auto) 0.6 TH/MM3 (0-0.9) 0.6 TH/MM3 (0-0.9) Eosinophils # (Auto) 0.0 TH/MM3 (0-0.4) 0.0 TH/MM3 (0-0.4) Basophils # (Auto) 0.0 TH/MM3 (0-0.2) 0.2 TH/MM3 (0-0.2) CBC Comment AUTO DIFF AUTO DIFF Differential Total Cells Counted 100 Neutrophils % (Manual) 94 % (16-70) Band Neutrophils % 3 % (0-6) Lymphocytes % 1 % (9-44) Monocytes % 1 % (0-8) Neutrophils # (Manual) 16.4 TH/MM3 (1.8-7.7) Metamyelocytes 1 % (0-1) Differential Comment FINAL DIFF MANUAL AUTO DIFF CONFIRMED Platelet Estimate NORMAL (NORMAL) NORMAL (NORMAL) Platelet Morphology Comment NORMAL (NORMAL) ENLARGED (NORMAL) Blood Urea Nitrogen 26 MG/DL (7-18) 23 MG/DL (7-18) Creatinine 0.75 MG/DL (0.60-1.30) 0.83 MG/DL (0.60-1.30) Random Glucose 181 MG/DL (74-106) 239 MG/DL (74-106) Total Protein 5.1 GM/DL (6.4-8.2) 5.2 GM/DL (6.4-8.2) Albumin 1.8 GM/DL (3.4-5.0) 1.8 GM/DL (3.4-5.0) Calcium Level 7.0 MG/DL (8.5-10.1) 7.2 MG/DL (8.5-10.1) Phosphorus Level 2.2 MG/DL (2.5-4.9) 1.8 MG/DL (2.5-4.9) Magnesium Level 1.6 MG/DL (1.5-2.5) 1.6 MG/DL (1.5-2.5) Alkaline Phosphatase 130 U/L (45-117) 148 U/L (45-117) Aspartate Amino Transf (AST/SGOT) 17 U/L (15-37) 18 U/L (15-37) Alanine Aminotransferase (ALT/SGPT) 16 U/L (12-78) 22 U/L (12-78) Total Bilirubin 1.0 MG/DL (0.2-1.0) 1.2 MG/DL (0.2-1.0) Sodium Level 141 MEQ/L (136-145) 141 MEQ/L (136-145) Potassium Level 3.1 MEQ/L (3.5-5.1) 3.4 MEQ/L (3.5-5.1) 3.0 MEQ/L (3.5-5.1) 3.4 MEQ/L (3.5-5.1) Chloride Level 105 MEQ/L (98-107) 105 MEQ/L (98-107) Carbon Dioxide Level 26.9 MEQ/L (21.0-32.0) 24.7 MEQ/L (21.0-32.0) Anion Gap 9 MEQ/L (5-15) 11 MEQ/L (5-15) Estimat Glomerular Filtration Rate 104 ML/MIN (>89) 92 ML/MIN (>89) Protein Corrected Calcium 8.1 MG/DL (8.5-10.1) 8.2 MG/DL (8.5-10.1) Hypersegmented Polys 1+ (NORMAL) Prothrombin Time 12.6 SEC (9.8-11.6) Prothromb Time International Ratio 1.2 RATIO Triglycerides Level 629 MG/DL (42-150) Digoxin Level 1.0 NG/ML (0.8-2.0) Test 08/15/17 06:00 08/15/17 08:05 Blood Gas Puncture Site RT BRACHIAL Blood Gas Patient Temperature 98.6 Blood Gas HCO3 23 mmol/L (22-26) Blood Gas Base Excess 0.3 mmol/L (-2-2) Blood Gas Oxygen Saturation 84 % (90-100) Arterial Blood pH 7.52 (7.380-7.420) Arterial Blood Partial Pressure CO2 29 mmHg (38-42) Arterial Blood Partial Pressure O2 50 mmHg (61-120) Arterial Blood Oxygen Content 9.9 Vol % (12.0-20.0) Arterial Blood Carboxyhemoglobin 1.9 % (0-4) Arterial Blood Methemoglobin 0.8 % (0-2) Blood Gas Hemoglobin 8.4 G/DL (12.0-16.0) Oxygen Delivery Device NASAL CANNULA Blood Gas Liter Flow 6 L/M Result Diagram: 08/14/17 0354 08/15/17 0335 Microbiology Microbiology Date/Time Source Procedure Growth Status 08/08/17 19:15 Blood Peripheral Aerobic Blood Culture - Final NO GROWTH IN 5 DAYS Complete 08/08/17 19:15 Blood Peripheral Anaerobic Blood Culture - Final NO GROWTH IN 5 DAYS Complete 07/02/17 17:00 Sputum Endotracheal Gram Stain - Final Complete 07/02/17 17:00 Sputum Culture - Final Pseudomonas Aeruginosa Complete 08/04/17 16:00 Urine Clean Catch Urine Culture - Final Pseudomonas Aeruginosa Complete Imaging Last Impressions Chest X-Ray 08/15/17 0000 Signed Impressions: Service Date/Time: Tuesday, August 15, 2017 11:43 - CONCLUSION: 1. Bibasilar densities. 2. Adequate placement of right-sided PICC line Sarwat Suarez MD Abdomen X-Ray 08/09/17 0600 Signed Impressions: Service Date/Time: Wednesday, August 09, 2017 03:49 - CONCLUSION: 1. Nonspecific bowel gas pattern without change. 2. Left ureteral stent catheter remains in place. Norman Mitchell MD Gastrostomy Tube Placement 08/09/17 0000 Signed Impressions: Service Date/Time: Wednesday, August 09, 2017 17:54 - CONCLUSION: Unsuccessful gastrostomy tube placement secondary to overlying bowel. CT scan will be required for placement Eddie Saucedo MD ADDENDUM: Review of the CT scan demonstrates the anatomy would require placement between the ribs which would be suboptimal. This was discussed with Dr. Luca Saucedo MD Abdomen/Pelvis CT 08/06/17 0000 Signed Impressions: Service Date/Time: Monday, August 07, 2017 02:34 - CONCLUSION: 1. Diffusely dilated small bowel extending to the ileostomy. There is a small volume of free fluid in the abdomen. 2. Abnormal airspace consolidation at the lung bases bilaterally with bilateral pleural effusions. 3. There is a open sacral decubitus wound extending to the adjacent coccyx and sacrum. Luca Torres MD Cholangiopancreatography MRI 07/15/17 0000 Signed Impressions: Service Date/Time: Saturday, July 15, 2017 15:02 - CONCLUSION: 1. Ascites with small bilateral pleural effusions. 2. Small contracted gallbladder without definite stones 3. No definite common duct stone. 4. Pancreas obscured by motion. Alfredo Lora MD FACR Liver Ultrasound 07/14/17 0000 Signed Impressions: Service Date/Time: July 16:45 - CONCLUSION: 1. Small volume ascites. 2. Bilateral pleural effusions. 3. Sludge within the gallbladder with a top normal thickness of the gallbladder wall. No sonographic evidence to suggest acute cholecystitis. Pierce Ospina Jr., MD Upper Extremity Ultrasound 06/23/17 0000 Signed Impressions: Service Date/Time: June 20:03 - CONCLUSION: Noncompressibility right cephalic vein and left basilic vein consistent with venous thrombosis Trav Hsieh MD Lower Extremity Ultrasound 06/23/17 0000 Signed Impressions: Service Date/Time: June 20:16 - CONCLUSION: Normal examination. No evidence DVT Trav Hsieh MD Chest CT 06/20/17 0000 Signed Impressions: Service Date/Time: Tuesday, June 20, 2017 07:42 - CONCLUSION: 1. Bilateral effusions and consolidative changes in both lung bases. Bao Lora MD Procedures * During previous hospitalization, rectosigmoidectomy with wedge resection of liver mass 05/26/17 * During this hospitalization... * INTUBATION 06/18/17 * EXTUBATION 07/07/17 * Excision of sacral decubitus, wound VAC placement 07/17/17 Patient/Family Conference Present at Family Conference: Patient's Quynh Armendariz, patient's daughter Alison Matthews, and Dr. Maribel Adams . Family Conference Time (mins): 110 Family Conference Location: Consult Room Issues Discussed: * Palliative care role, purpose, approach * Additional medical, psychosocial, and spiritual history * Patients general health, functional status, and cognitive changes in the months leading up to the current hospitalization * Patient/family understanding of the current medical problems * Patient/family understanding of prognosis * Patients goals of care as best understood from advance directives and/or conversations and/or values * Current medical treatment options and benefits/burdens of those options * Likely scenarios comparing ongoing aggressive care with a transition to comfort measures only * Questions answered to the best of my ability * Palliative care contact information provided The overall goal is to get the patient back home, even though he may remain quite weak and may even be nonambulatory. The family feels that is the most important thing, so that he can enjoy life at home and the family can enjoy him during whatever time he has left. They understand the overall prognosis is not good with the underlying malignancy and now all of the recent complications and pronounced malnutrition and deconditioning, but the goal of getting him home and functional is very important. If other even more severe complications occur during this hospitalization, then the family will reconsider the goals. . Assessment and Plan Disease Oriented Problem List: (1) recurrent respiratory failure, pneumonia (2) recurrent/persistent pneumonia, probable aspiration (3) recurrent/persistent pneumonia, probable aspiration (4) recurrent UTI with resistant Pseudomonas (5) altered mental status/delirium, likely multifactorial (6) recurrent rapid atrial fib (7) septic shock requiring intubation X 17 days (8) severe malnutrition/deconditioning (9) rectal cancer November 2016, s/p radiation/chemo and surgery (10) history of anxiety (11) history of COPD (12) remote history of pancreatitis (13) BPH Symptom Scale: (1) pain 0-10 Scale: Unable to quantify (2) dyspnea 0-10 Scale: Unable to quantify (3) confusion 0-10 Scale: Unable to quantify (4) anxiety 0-10 Scale: Unable to quantify (long history of anxiety) Pertinent Non-Medical Issues Psychosocial: for 51 years, 3 daughters, one daughter . 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 Spiritual: The patient has a [employer] background, but has been on affiliated with the worship for many years, and the does not believe he would want a visit from a pharmaceutical service representative or from hospital chaplains. Legal: The patient lacks capacity for decision-making at the time of the initial consultation, and it is uncertain whether he will regain that capacity. His is the decision making proxy. Ethical issues impacting care: None . Important Contacts Spouse: Quynh Armendariz [phone] Daughter: Alison Matthews [phone] . Prognosis The patient's debility and deconditioning has become quite profound, and he again is suffering from hypoxic respiratory failure. In addition, he has underlying recent metastatic rectal adenocarcinoma (although the post surgery scans did not indicate any obvious metastatic disease). Overall, his prognosis for complete recovery with return to work would seem to be quite poor. . Code Status: Full Code Plan * FULL CODE * DECISION-MAKING: The patient lacks capacity for decision-making at the time of the initial consultation, and it is uncertain whether he will regain that capacity. His is the decision making proxy. * GOALS: The overall goal is to get the patient back home, even though he may remain quite weak and may even be nonambulatory. The family feels that is the most important thing, so that he can enjoy life at home and the family can enjoy him during whatever time he has left. They understand the overall prognosis is not good with the underlying malignancy and now all of the recent complications and pronounced malnutrition and deconditioning, but the goal of getting him home and functional is very important. If other even more severe complications occur during this hospitalization, then the family will reconsider the goals. * The patient's shared her numerous concerns about the healthcare that the patient has received the past couple months. * The family is still grieving significantly since the withdrawal of life support and in [place] of the oldest daughter in April 2017. I have offered to connect the and 2 daughters with bereavement/grief counseling here, and they will consider that. * SYMPTOMS: The patient has denied pain except in his sacral decubitus in recent days. His delirium seems to be a little improved today and that he is better oriented. The dyspnea is currently being managed with high flow nasal oxygen and his saturations are good. * Palliative Care will continue to follow this patient during this hospitalization, to be another supportive and consistent presence for the patient, , and daughters during this very difficult hospitalization and its multiple complications and setbacks. The family is understandably feeling less than positive regarding this entire hospitalization and the patient's experience. . Time Spent Total Floor Time (mins): 130 Face to Face Time (mins): 112 >50% Counseling/Coord of Care: Yes (d/w Dr. Segovia) Thank you for the opportunity to participate in the care of Mr. Armendariz. Attestation To help prompt me to consider important information that might be impacting today's encounter and assessment, information from prior notes written by myself or my colleagues may have been "brought forward" into today's note. My signature on this note, however, is an attestation that I personally performed the exam, history, and/or decision-making noted today, and, unless otherwise indicated, the interactions with patient, family, and staff as well as the review of records all occurred today. I also attest that the listed assessment and stated plan reflect my best clinical judgment today based on the combination of historical information, prior notes, and today's exam/ interactions. When time spent is documented, it refers only to time spent today by the signer, or if indicated, combined time spent today by collaborating physician/nurse practitioner. Sasha Hyde MD Aug 15, 2017 13:17
--- NOTE | 2017-08-15 16:12 | HHI.IDPN ---
Note Infectious Disease Note Patient is confused. Afebrile. WBC elevated. Admitted to the hospital with weakness, abdominal pain and nausea. The patient is status post anterior resection of colon and rectal areas and anastomosis along with a diverting ileostomy and also resection of a segment of left ureter with ureteral anastomosis and double-J stent placement three weeks prior. PAST MEDICAL HISTORY: 1. Hypertension. 2. Left knee surgery. 3. Metastatic colon cancer status post resection and colo-anal anastomosis and also resection and re-anastomosis of the left ureter with double-J stent placement. ALLERGIES: CODEINE. ABX: Vancomycin PO. Zosyn. Flagyl. OBJECTIVE: Vital Signs Date Time Temp Pulse Resp B/P (MAP) Pulse Ox O2 Delivery O2 Flow Rate FiO2 08/15/17 08:58 95 High Flow Nasal Cannula 25.00 40 08/15/17 08:35 125 143/76 08/15/17 07:00 94 Nasal Cannula 5.00 40 08/15/17 06:49 95 High Flow Nasal Cannula 25.00 40 08/15/17 06:23 100 Non-Rebreather 12.00 100 08/15/17 06:00 114 08/15/17 04:00 98.0 106 28 136/72 (93) 90 08/15/17 04:00 106 08/15/17 02:00 102 08/15/17 00:00 108 08/15/17 00:00 97.6 108 33 131/68 (89) 99 08/14/17 22:00 102 08/14/17 20:00 99 08/14/17 20:00 96.8 99 33 129/65 (86) 98 08/14/17 19:42 92 Nasal Cannula 4.00 08/14/17 19:00 90 Nasal Cannula 5.00 Laboratory Tests Test 08/14/17 03:54 White Blood Count 18.6 TH/MM3 Red Blood Count 3.06 MIL/MM3 Hemoglobin 9.1 GM/DL Hematocrit 27.9 % Mean Corpuscular Volume 91.1 FL Mean Corpuscular Hemoglobin 29.6 PG Mean Corpuscular Hemoglobin Concent 32.4 % Red Cell Distribution Width 19.9 % Platelet Count 258 TH/MM3 Mean Platelet Volume 9.2 FL Neutrophils (%) (Auto) 94.3 % Lymphocytes (%) (Auto) 1.6 % Monocytes (%) (Auto) 3.2 % Eosinophils (%) (Auto) 0.0 % Basophils (%) (Auto) 0.9 % Neutrophils # (Auto) 17.5 TH/MM3 Lymphocytes # (Auto) 0.3 TH/MM3 Monocytes # (Auto) 0.6 TH/MM3 Eosinophils # (Auto) 0.0 TH/MM3 Basophils # (Auto) 0.2 TH/MM3 CBC Comment AUTO DIFF Differential Comment AUTO DIFF CONFIRMED Hypersegmented Polys 1+ Platelet Estimate NORMAL Platelet Morphology Comment ENLARGED Laboratory Tests Test 08/13/17 21:26 08/14/17 03:54 08/15/17 03:35 08/15/17 08:05 Potassium Level 3.4 MEQ/L 3.0 MEQ/L 3.4 MEQ/L Blood Urea Nitrogen 23 MG/DL Creatinine 0.83 MG/DL Random Glucose 239 MG/DL Total Protein 5.2 GM/DL Albumin 1.8 GM/DL Calcium Level 7.2 MG/DL Phosphorus Level 1.8 MG/DL Magnesium Level 1.6 MG/DL Alkaline Phosphatase 148 U/L Aspartate Amino Transf (AST/SGOT) 18 U/L Alanine Aminotransferase (ALT/SGPT) 22 U/L Total Bilirubin 1.2 MG/DL Sodium Level 141 MEQ/L Chloride Level 105 MEQ/L Carbon Dioxide Level 24.7 MEQ/L Anion Gap 11 MEQ/L Estimat Glomerular Filtration Rate 92 ML/MIN Protein Corrected Calcium 8.2 MG/DL Triglycerides Level 629 MG/DL Microbiology Date/Time Source Procedure Growth Status 08/08/17 19:15 Blood Peripheral Aerobic Blood Culture - Preliminary NO GROWTH IN 3 DAYS Resulted 08/08/17 19:15 Blood Peripheral Anaerobic Blood Culture - Preliminary NO GROWTH IN 3 DAYS Resulted 08/08/17 15:50 Blood Peripheral Aerobic Blood Culture - Preliminary NO GROWTH IN 3 DAYS Resulted 08/08/17 15:50 Blood Peripheral Anaerobic Blood Culture - Preliminary NO GROWTH IN 3 DAYS Resulted IMAGING: Chest X-Ray 08/15/17 0000 Signed Impressions: Service Date/Time: Tuesday, August 15, 2017 11:43 - CONCLUSION: 1. Bibasilar densities. 2. Adequate placement of right-sided PICC line Sarwat Suarez MD Chest X-Ray 08/15/17 0000 Signed Impressions: Service Date/Time: Tuesday, August 15, 2017 06:05 - CONCLUSION: Stable bilateral mid and lower lung infiltrates. Pierce Groves MD Chest X-Ray 08/13/17 0600 Signed Impressions: Service Date/Time: Sunday, August 13, 2017 04:12 - CONCLUSION: Slight improved aeration. Joel Blancas MD Chest X-Ray 08/12/17 0600 Signed Impressions: Service Date/Time: Saturday, August 12, 2017 04:25 - CONCLUSION: Bilateral alveolar and interstitial infiltrates are noted. Joel Blancas MD Chest X-Ray 08/12/17 0000 Signed Impressions: Service Date/Time: Saturday, August 12, 2017 11:02 - CONCLUSION: Stable chest x-ray with underinflation and bilateral lower lung zone airspace consolidation. Luca Torres MD Chest X-Ray 08/11/17 0000 Signed Impressions: Service Date/Time: August 07:03 - CONCLUSION: Stable single view the chest. Patchy bibasilar infiltrates are unchanged. Abad Mariano MD PHYSICAL EXAMINATION: GENERAL: No acute distress. HEENT: No icterus. Oropharynx mucosa dry. NECK: Supple. LUNGS: Decreased breath sounds. HEART: Regular S1-S2 without murmurs, rubs or gallops. ABDOMEN: Positive bowel sounds. Soft. Non tender. EXTREMITIES: No clubbing or cyanosis, edema. SKIN: No rash. NEUROLOGIC: Nonfocal. PSYCH: Calm and cooperative. IMPRESSION: 1. Post treatment for Severe sepsis/ Bandemia. Status post recent surgery for rectal cancer and recent ureteral resection and double J ureteral stent. 2. C difficile colitis. Pseudomembranous enteritis/sepsis. 3. Acute respiratory failure. Extubated. 4. Pseudomonas pneumonia and UTI. Treated and improved. 5. Leukocytosis. 6. UTI - Pseudomonas. RECOMMENDATIONS: 1. Continue PO Vancomycin. 2. Stop Flagyl. 3. Continue Zosyn. El Espinoza MD Aug 15, 2017 16:12
[2017-08-15] MEDS: TAMSULOSIN HCL 0.4 MG CAP PO SCH (20:49)
[2017-08-15] MEDS: CLINIMIX E 4.25/5 1000 mL- </= 42 mls/hr IV SCH ×3 (20:49)
[2017-08-15] MEDS: VIIBRYD 40 MG PO SCH (21:00)
[2017-08-16] VITALS (14 sets, daily range): BP systolic 95–128; BP diastolic 56–78; PULSE 84–125; RESP 20–33; TEMP 98–98.7; O2SAT 95–99
[2017-08-16] MEDS: RESP: ALBUTEROL 2.5 MG/IPRATROPIUM 0.5 MG NEB (SCH) NEB ×6 (00:26→20:54)
[2017-08-16] MEDS: PIPERACIL-TAZO 4.5 GM PREMIX 100 ML IV SCH ×3 (00:38→11:22)
[2017-08-16] MEDS: DILTIAZEM INJ 125 MG in SODIUM CHLORIDE 0.9% INJ 100 ML IV PRN ×3 (00:41→20:30)
[2017-08-16] MEDS: HALOPERIDOL LACTATE 5 MG/ML AMP IV PRN ×3 (03:37→20:28)
[2017-08-16 05:31] LABS: AUTOMATED NEUTROPHIL # 20.1 TH/MM3 (1.8-7.7); BASOPHIL # 0.2 TH/MM3 (0-0.2); BASOPHIL % 1.1 % (0.0-2.0); HEMATOCRIT 24.8 % (39.0-51.0); LYMPH % 1.7 % (9.0-44.0); LYMPHOCYTE # 0.4 TH/MM3 (1.0-4.8); MEAN CELL VOLUME 91.6 FL (80.0-100.0); MEAN CORPUSCULAR HGB CONC 32.8 % (32.0-36.0); NEUT % 93.2 % (16.0-70.0); PLATELET COUNT 234 TH/MM3 (150-450); RED CELL DISTRIBUTION WIDTH 20.6 % (11.6-17.2); WHITE BLOOD COUNT 21.6 TH/MM3 (4.0-11.0)
[2017-08-16 05:38] LABS: HEMO FLAGS AUTO DIFF
--- NOTE | 2017-08-16 06:22 | RADRPT ---
EXAM DATE/TIME: 08/16/2017 04:47 [facility] COMPARISON: CHEST SINGLE AP, August 15, 2017, 11:43. INDICATIONS : Respiratory disease. MEDICAL HISTORY : Hypertension. Carcinoma, colon. SURGICAL HISTORY : Appendectomy. Colon resection. ENCOUNTER: Subsequent ACUITY: 1 month PAIN SCORE: 0/10 LOCATION: Bilateral chest FINDINGS: Persistent ill-defined infiltrates in the left infrahilar and right infrahilar/lateral region. Both hemidiaphragms well delineated. The heart is normal size. Right PICC line catheter tip projects ove r the proximal superior vena cava. CONCLUSION: Persistent bilateral pulmonary infiltrates. Pierce Groves MD on August 16, 2017 at 6:20 Board Certified Radiologist. This report was verified electronically.
[2017-08-16 06:23] LABS: BICARBONATE 25.2 MEQ/L (21.0-32.0); CALCIUM-PROTEIN CORRECTED 8.5 MG/DL (8.5-10.1); MAGNESIUM 2.2 MG/DL (1.5-2.5); POTASSIUM 3.2 MEQ/L (3.5-5.1); TOTAL BILIRUBIN ADULT 1.2 MG/DL (0.2-1.0)
[2017-08-16] MEDS: METOCLOPRAMIDE HCL 10 MG/2 ML VIAL IV PUSH SCH (06:36)
[2017-08-16] MEDS: INSULIN ASPART SUPPLEMENTAL SCALE SQ SCH ×4 (08:00→21:42)
[2017-08-16 08:03] LABS: SCAN/DIFF AUTO DIFF CONFIRMED
[2017-08-16] MEDS: POTASSIUM CHLOR 40 MEQ PREMIX 100 ML IV PRN ×2 (08:38→14:20)
[2017-08-16] MEDS: TIOTROPIUM BROMIDE 18 MCG INH INH SCH (08:38)
[2017-08-16] MEDS: ENOXAPARIN SODIUM 40 MG/0.4 ML SYRINGE SQ SCH (08:39)
[2017-08-16] MEDS: VANCOMYCIN 500 MG VIAL (FOR ORAL USE ONLY) PO SCH ×4 (08:39→20:28)
[2017-08-16] MEDS: PANTOPRAZOLE SODIUM 40 MG VIAL IV PUSH SCH (08:40)
[2017-08-16] MEDS: methylPREDNISolone SOD SUCC 40 MG/1 ML VIAL IV PUSH SCH ×2 (08:40→20:28)
[2017-08-16] MEDS: DIGOXIN 0.5 MG/2 ML VIAL IV PUSH SCH (08:40)
[2017-08-16] MEDS: FUROSEMIDE 20 MG/2 ML VIAL IV PUSH SCH ×2 (08:40→18:07)
[2017-08-16] MEDS: OLANZapine ODT 5 MG TAB PO SCH (08:41)
[2017-08-16] MEDS: BUDESONIDE-FORMOTEROL 160/4.5 MCG INHALER INH SCH ×2 (08:41→20:28)
[2017-08-16] MEDS: METOPROLOL TARTRATE 5 MG/5 ML VIAL IV PUSH PRN (11:27)
--- NOTE | 2017-08-16 12:36 | HHI.IDPN ---
Note Infectious Disease Note Patient is confused. Afebrile. WBC still elevated. On O2 via nasal canula. RN reports that he is eating. Admitted to the hospital with weakness, abdominal pain and nausea. The patient is status post anterior resection of colon and rectal areas and anastomosis along with a diverting ileostomy and also resection of a segment of left ureter with ureteral anastomosis and double-J stent placement three weeks prior. PAST MEDICAL HISTORY: 1. Hypertension. 2. Left knee surgery. 3. Metastatic colon cancer status post resection and colo-anal anastomosis and also resection and re-anastomosis of the left ureter with double-J stent placement. ALLERGIES: CODEINE. ABX: Vancomycin PO. Zosyn. OBJECTIVE: Vital Signs Date Time Temp Pulse Resp B/P (MAP) Pulse Ox O2 Delivery O2 Flow Rate FiO2 08/16/17 11:26 140 106/63 08/16/17 10:00 110 08/16/17 08:16 96 High Flow Nasal Cannula 25.00 30 08/16/17 08:00 125 08/16/17 07:00 97 Nasal Cannula 5.00 40 08/16/17 06:00 89 08/16/17 04:00 111 08/16/17 04:00 98.4 84 25 95/56 (69) 99 08/16/17 02:00 114 08/16/17 00:41 117 124/69 08/16/17 00:00 102 08/16/17 00:00 98.0 110 27 124/69 (87) 99 08/15/17 22:00 102 08/15/17 20:09 96 High Flow Nasal Cannula 25.00 40 08/15/17 20:00 99 Nasal Cannula 5.00 40 08/15/17 20:00 102 08/15/17 18:00 108 08/15/17 16:27 126 106/55 08/15/17 16:00 111 08/15/17 16:00 97.8 111 28 115/68 (84) 97 08/15/17 14:00 120 Laboratory Tests Test 08/16/17 05:15 White Blood Count 21.6 TH/MM3 Red Blood Count 2.70 MIL/MM3 Hemoglobin 8.1 GM/DL Hematocrit 24.8 % Mean Corpuscular Volume 91.6 FL Mean Corpuscular Hemoglobin 30.0 PG Mean Corpuscular Hemoglobin Concent 32.8 % Red Cell Distribution Width 20.6 % Platelet Count 234 TH/MM3 Mean Platelet Volume 9.7 FL Neutrophils (%) (Auto) 93.2 % Lymphocytes (%) (Auto) 1.7 % Monocytes (%) (Auto) 4.0 % Eosinophils (%) (Auto) 0.0 % Basophils (%) (Auto) 1.1 % Neutrophils # (Auto) 20.1 TH/MM3 Lymphocytes # (Auto) 0.4 TH/MM3 Monocytes # (Auto) 0.9 TH/MM3 Eosinophils # (Auto) 0.0 TH/MM3 Basophils # (Auto) 0.2 TH/MM3 CBC Comment AUTO DIFF Differential Comment AUTO DIFF CONFIRMED Laboratory Tests Test 08/15/17 03:35 08/16/17 05:15 08/16/17 11:35 Potassium Level 3.4 MEQ/L 3.2 MEQ/L Blood Urea Nitrogen 25 MG/DL Creatinine 0.75 MG/DL Random Glucose 114 MG/DL Total Protein 4.8 GM/DL Albumin 1.6 GM/DL Calcium Level 7.2 MG/DL Phosphorus Level 2.2 MG/DL Magnesium Level 2.2 MG/DL Alkaline Phosphatase 149 U/L Aspartate Amino Transf (AST/SGOT) 19 U/L Alanine Aminotransferase (ALT/SGPT) 23 U/L Total Bilirubin 1.2 MG/DL Sodium Level 143 MEQ/L Chloride Level 109 MEQ/L Carbon Dioxide Level 25.2 MEQ/L Anion Gap 9 MEQ/L Estimat Glomerular Filtration Rate 104 ML/MIN Protein Corrected Calcium 8.5 MG/DL B-Type Natriuretic Peptide 231 PG/ML Vitamin B12 Level 1365 PG/ML Ammonia LESS THAN 10 MCMOL/L Microbiology Date/Time Source Procedure Growth Status 08/08/17 19:15 Blood Peripheral Aerobic Blood Culture - Preliminary NO GROWTH IN 3 DAYS Resulted 08/08/17 19:15 Blood Peripheral Anaerobic Blood Culture - Preliminary NO GROWTH IN 3 DAYS Resulted 08/08/17 15:50 Blood Peripheral Aerobic Blood Culture - Preliminary NO GROWTH IN 3 DAYS Resulted 08/08/17 15:50 Blood Peripheral Anaerobic Blood Culture - Preliminary NO GROWTH IN 3 DAYS Resulted IMAGING: Chest X-Ray 08/15/17 0000 Signed Impressions: Service Date/Time: Tuesday, August 15, 2017 11:43 - CONCLUSION: 1. Bibasilar densities. 2. Adequate placement of right-sided PICC line Sarwat Suarez MD Chest X-Ray 08/15/17 0000 Signed Impressions: Service Date/Time: Tuesday, August 15, 2017 06:05 - CONCLUSION: Stable bilateral mid and lower lung infiltrates. Pierce Groves MD Chest X-Ray 08/13/17 0600 Signed Impressions: Service Date/Time: Sunday, August 13, 2017 04:12 - CONCLUSION: Slight improved aeration. Joel Blancas MD Chest X-Ray 08/12/17 0600 Signed Impressions: Service Date/Time: Saturday, August 12, 2017 04:25 - CONCLUSION: Bilateral alveolar and interstitial infiltrates are noted. Joel Blancas MD Chest X-Ray 08/12/17 0000 Signed Impressions: Service Date/Time: Saturday, August 12, 2017 11:02 - CONCLUSION: Stable chest x-ray with underinflation and bilateral lower lung zone airspace consolidation. Luca Torres MD Chest X-Ray 08/11/17 0000 Signed Impressions: Service Date/Time: August 07:03 - CONCLUSION: Stable single view the chest. Patchy bibasilar infiltrates are unchanged. Abad Mariano MD PHYSICAL EXAMINATION: GENERAL: No acute distress. HEENT: No icterus. Oropharynx mucosa dry. NECK: Supple. LUNGS: Decreased breath sounds. HEART: Regular S1-S2 without murmurs, rubs or gallops. ABDOMEN: Positive bowel sounds. Soft. Non tender. EXTREMITIES: No clubbing or cyanosis, edema. SKIN: No rash. NEUROLOGIC: Nonfocal. PSYCH: Calm and cooperative. IMPRESSION: 1. Post treatment for Severe sepsis/ Bandemia. Status post recent surgery for rectal cancer and recent ureteral resection and double J ureteral stent. 2. C difficile colitis. Pseudomembranous enteritis/sepsis. 3. Acute respiratory failure. Extubated. 4. Pseudomonas pneumonia and UTI. Treated and improved. 5. Leukocytosis. Currently no real foci of infection is apparent. 6. UTI - Pseudomonas. RECOMMENDATIONS: 1. Continue PO Vancomycin. 2. Stop Zosyn. 3. Monitor clinical status. 4. Reculture if he has temp. El Espinoza MD Aug 16, 2017 12:36
--- NOTE | 2017-08-16 14:00 | HHI.PR ---
Subjective Remarks Pt not confused but tremulous.Knows me. Objective Vital Signs Date Time Temp Pulse Resp B/P (MAP) Pulse Ox O2 Delivery O2 Flow Rate FiO2 08/16/17 11:26 140 106/63 08/16/17 10:00 110 08/16/17 08:16 96 High Flow Nasal Cannula 25.00 30 08/16/17 08:00 125 08/16/17 07:00 97 Nasal Cannula 5.00 40 08/16/17 06:00 89 08/16/17 04:00 111 08/16/17 04:00 98.4 84 25 95/56 (69) 99 08/16/17 02:00 114 08/16/17 00:41 117 124/69 08/16/17 00:00 102 08/16/17 00:00 98.0 110 27 124/69 (87) 99 08/15/17 22:00 102 08/15/17 20:09 96 High Flow Nasal Cannula 25.00 40 08/15/17 20:00 99 Nasal Cannula 5.00 40 08/15/17 20:00 102 08/15/17 18:00 108 08/15/17 16:27 126 106/55 08/15/17 16:00 111 08/15/17 16:00 97.8 111 28 115/68 (84) 97 08/15/17 14:00 120 I/O 08/15/17 08/15/17 08/15/17 08/16/17 08/16/17 08/16/17 07:00 15:00 23:00 07:00 15:00 23:00 Intake Total 813 ml 0 ml 225 ml 200 ml Output Total 1450 ml 2600 ml 2250 ml Balance -637 ml -2600 ml -2025 ml 200 ml Intake Oral 50 ml 0 ml IV Total 427 ml 225 ml 200 ml TPN/PPN 336 ml Output Urine Total 1200 ml 2500 ml 2000 ml Stool Total 200 ml 100 ml 250 ml Drainage Total 50 ml 0 ml Result Diagram: 08/16/1751408/16/1715 Objective Remarks VS-S Gen:uite tremulous. Seems metabolic Abd: soft,flat,non tender . Assessment and Plan Assessment and Plan Decubitus Poor nutrition. Severe deconditioning C Diff negative. No diarrhea. Tremulous Zosyn for Pseudomonas Needs aggressive PT and Nutrition to fully heal decubitus and recover Continue PO vancomycin Should have PT everyday including weekends. Needs position changes for Pulmonary toilet Continue Lasix Passed swallowing eval. D/W Dr Segovia-Will stop all meds that could confuse Luca Geiger MD Aug 16, 2017 14:00
--- NOTE | 2017-08-16 14:03 | HHI.HCPN ---
Reason for visit a. To assist with evaluation and management of symptoms including: Dyspnea , confusion, dysphagia b. To assist medical decision maker(s) with: better understanding of current medical conditions; weighing benefits/burdens of medical treatment options; making medical treatment decisions. . Subjective/Interval History INTERVAL NOTE: The patient seems a little more alert today. He is responding to my questions appropriately, but still has some confusion intermittently. He was up in a chair for about an hour and then asked to get back into bed. He remains on high flow O2 and his oxygen saturation is 100% at the time I am seeing him. He says he does not feel short of breath, and the only discomfort he has is in "my butt." He remains afebrile. The chest x-ray shows some persistent bilateral infiltrates. . Family/friend interactions Discussed by telephone with the patient's : She is optimistic that PT has continued to see him each day, that he has been up in the chair, and that he passed his swallow eval and has been able to eat. She does understand that he is "not out of the steinberg." . Advance Directives Living Will: Never completed Health Care Surrogate: Never completed Durable Power of Dba Manager: Never completed Objective Vital Signs Date Time Temp Pulse Resp B/P (MAP) Pulse Ox O2 Delivery O2 Flow Rate FiO2 08/16/17 11:26 140 106/63 08/16/17 10:00 110 08/16/17 08:16 96 High Flow Nasal Cannula 25.00 30 08/16/17 08:00 125 08/16/17 07:00 97 Nasal Cannula 5.00 40 08/16/17 06:00 89 08/16/17 04:00 111 08/16/17 04:00 98.4 84 25 95/56 (69) 99 08/16/17 02:00 114 08/16/17 00:41 117 124/69 08/16/17 00:00 102 08/16/17 00:00 98.0 110 27 124/69 (87) 99 08/15/17 22:00 102 08/15/17 20:09 96 High Flow Nasal Cannula 25.00 40 08/15/17 20:00 99 Nasal Cannula 5.00 40 08/15/17 20:00 102 08/15/17 18:00 108 08/15/17 16:27 126 106/55 08/15/17 16:00 111 08/15/17 16:00 97.8 111 28 115/68 (84) 97 08/15/17 14:00 120 Intake & Output 08/16/17 08/16/17 07:00 19:00 Intake Total 225 ml 200 ml Output Total 2250 ml Balance -2025 ml 200 ml IV Total 225 ml 200 ml Output Urine Total 2000 ml Stool Total 250 ml Drainage Total 0 ml Physical Exam CONSTITUTIONAL/GENERAL: This is a weak, thin, confused patient, in no apparent distress. TUBES/LINES/DRAINS: Wrist restraints, Han, wound VAC, nasal cannula oxygen SKIN: No jaundice, rashes. A wound VAC is present on the sacral wound. Ecchymoses on upper extremities. No wounds seen anteriorly. Skin temperature appropriate. Not diaphoretic. ENT: Hearing grossly normal. Nose without bleeding or purulent drainage. NECK: Trachea midline. Supple, nontender. No palpable thyroid enlargement or nodularity. CARDIOVASCULAR: Irregular without murmurs, gallops, or rubs. No JVD. Peripheral pulses symmetric. RESPIRATORY/CHEST: Symmetric, unlabored respirations. Clear to auscultation. Breath sounds equal bilaterally. No wheezes, rales, or rhonchi. GASTROINTESTINAL: Abdomen soft, non-tender, nondistended. No hepato-splenomegaly , or palpable masses. Ileostomy present. Bowel sounds present. GENITOURINARY: Without palpable bladder distension. Han catheter in place. MUSCULOSKELETAL: Extremities without clubbing, cyanosis, or edema. No joint tenderness or effusion noted. No calf tenderness. No mottling or clubbing. NEUROLOGICAL: Awake and alert. No obvious motor deficits, but he is weak globally. Moves all extremities. PSYCHIATRIC: Some restlessness is present. He is continuing to be confused at times, but seems more aware today. . Diagnostic Tests Laboratory Laboratory Tests Test 08/13/17 21:26 08/14/17 03:54 08/15/17 03:35 08/15/17 06:00 Potassium Level 3.4 MEQ/L (3.5-5.1) 3.0 MEQ/L (3.5-5.1) 3.4 MEQ/L (3.5-5.1) White Blood Count 18.6 TH/MM3 (4.0-11.0) Red Blood Count 3.06 MIL/MM3 (4.50-5.90) Hemoglobin 9.1 GM/DL (13.0-17.0) Hematocrit 27.9 % (39.0-51.0) Mean Corpuscular Volume 91.1 FL (80.0-100.0) Mean Corpuscular Hemoglobin 29.6 PG (27.0-34.0) Mean Corpuscular Hemoglobin Concent 32.4 % (32.0-36.0) Red Cell Distribution Width 19.9 % (11.6-17.2) Platelet Count 258 TH/MM3 (150-450) Mean Platelet Volume 9.2 FL (7.0-11.0) Neutrophils (%) (Auto) 94.3 % (16.0-70.0) Lymphocytes (%) (Auto) 1.6 % (9.0-44.0) Monocytes (%) (Auto) 3.2 % (0.0-8.0) Eosinophils (%) (Auto) 0.0 % (0.0-4.0) Basophils (%) (Auto) 0.9 % (0.0-2.0) Neutrophils # (Auto) 17.5 TH/MM3 (1.8-7.7) Lymphocytes # (Auto) 0.3 TH/MM3 (1.0-4.8) Monocytes # (Auto) 0.6 TH/MM3 (0-0.9) Eosinophils # (Auto) 0.0 TH/MM3 (0-0.4) Basophils # (Auto) 0.2 TH/MM3 (0-0.2) CBC Comment AUTO DIFF Differential Comment AUTO DIFF CONFIRMED Hypersegmented Polys 1+ (NORMAL) Platelet Estimate NORMAL (NORMAL) Platelet Morphology Comment ENLARGED (NORMAL) Prothrombin Time 12.6 SEC (9.8-11.6) Prothromb Time International Ratio 1.2 RATIO Blood Urea Nitrogen 23 MG/DL (7-18) Creatinine 0.83 MG/DL (0.60-1.30) Random Glucose 239 MG/DL (74-106) Total Protein 5.2 GM/DL (6.4-8.2) Albumin 1.8 GM/DL (3.4-5.0) Calcium Level 7.2 MG/DL (8.5-10.1) Phosphorus Level 1.8 MG/DL (2.5-4.9) Magnesium Level 1.6 MG/DL (1.5-2.5) Alkaline Phosphatase 148 U/L (45-117) Aspartate Amino Transf (AST/SGOT) 18 U/L (15-37) Alanine Aminotransferase (ALT/SGPT) 22 U/L (12-78) Total Bilirubin 1.2 MG/DL (0.2-1.0) Sodium Level 141 MEQ/L (136-145) Chloride Level 105 MEQ/L (98-107) Carbon Dioxide Level 24.7 MEQ/L (21.0-32.0) Anion Gap 11 MEQ/L (5-15) Estimat Glomerular Filtration Rate 92 ML/MIN (>89) Protein Corrected Calcium 8.2 MG/DL (8.5-10.1) Triglycerides Level 629 MG/DL (42-150) Digoxin Level 1.0 NG/ML (0.8-2.0) Blood Gas Puncture Site RT BRACHIAL Blood Gas Patient Temperature 98.6 Blood Gas HCO3 23 mmol/L (22-26) Blood Gas Base Excess 0.3 mmol/L (-2-2) Blood Gas Oxygen Saturation 84 % (90-100) Arterial Blood pH 7.52 (7.380-7.420) Arterial Blood Partial Pressure CO2 29 mmHg (38-42) Arterial Blood Partial Pressure O2 50 mmHg (61-120) Arterial Blood Oxygen Content 9.9 Vol % (12.0-20.0) Arterial Blood Carboxyhemoglobin 1.9 % (0-4) Arterial Blood Methemoglobin 0.8 % (0-2) Blood Gas Hemoglobin 8.4 G/DL (12.0-16.0) Oxygen Delivery Device NASAL CANNULA Blood Gas Liter Flow 6 L/M Test 08/16/17 05:15 08/16/17 11:35 White Blood Count 21.6 TH/MM3 (4.0-11.0) Red Blood Count 2.70 MIL/MM3 (4.50-5.90) Hemoglobin 8.1 GM/DL (13.0-17.0) Hematocrit 24.8 % (39.0-51.0) Mean Corpuscular Volume 91.6 FL (80.0-100.0) Mean Corpuscular Hemoglobin 30.0 PG (27.0-34.0) Mean Corpuscular Hemoglobin Concent 32.8 % (32.0-36.0) Red Cell Distribution Width 20.6 % (11.6-17.2) Platelet Count 234 TH/MM3 (150-450) Mean Platelet Volume 9.7 FL (7.0-11.0) Neutrophils (%) (Auto) 93.2 % (16.0-70.0) Lymphocytes (%) (Auto) 1.7 % (9.0-44.0) Monocytes (%) (Auto) 4.0 % (0.0-8.0) Eosinophils (%) (Auto) 0.0 % (0.0-4.0) Basophils (%) (Auto) 1.1 % (0.0-2.0) Neutrophils # (Auto) 20.1 TH/MM3 (1.8-7.7) Lymphocytes # (Auto) 0.4 TH/MM3 (1.0-4.8) Monocytes # (Auto) 0.9 TH/MM3 (0-0.9) Eosinophils # (Auto) 0.0 TH/MM3 (0-0.4) Basophils # (Auto) 0.2 TH/MM3 (0-0.2) CBC Comment AUTO DIFF Differential Comment AUTO DIFF CONFIRMED Blood Urea Nitrogen 25 MG/DL (7-18) Creatinine 0.75 MG/DL (0.60-1.30) Random Glucose 114 MG/DL (74-106) Total Protein 4.8 GM/DL (6.4-8.2) Albumin 1.6 GM/DL (3.4-5.0) Calcium Level 7.2 MG/DL (8.5-10.1) Phosphorus Level 2.2 MG/DL (2.5-4.9) Magnesium Level 2.2 MG/DL (1.5-2.5) Alkaline Phosphatase 149 U/L (45-117) Aspartate Amino Transf (AST/SGOT) 19 U/L (15-37) Alanine Aminotransferase (ALT/SGPT) 23 U/L (12-78) Total Bilirubin 1.2 MG/DL (0.2-1.0) Sodium Level 143 MEQ/L (136-145) Potassium Level 3.2 MEQ/L (3.5-5.1) Chloride Level 109 MEQ/L (98-107) Carbon Dioxide Level 25.2 MEQ/L (21.0-32.0) Anion Gap 9 MEQ/L (5-15) Estimat Glomerular Filtration Rate 104 ML/MIN (>89) Protein Corrected Calcium 8.5 MG/DL (8.5-10.1) B-Type Natriuretic Peptide 231 PG/ML (0-100) Vitamin B12 Level 1365 PG/ML (193-986) Ammonia LESS THAN 10 MCMOL/L Result Diagram: 08/16/1751408/16/17514 Imaging Last Impressions Chest X-Ray 08/16/17599 Signed Impressions: Service Date/Time: Wednesday, August 16, 2017 04:47 - CONCLUSION: Persistent bilateral pulmonary infiltrates. Pierce Groves MD Abdomen X-Ray 08/09/17 06 Signed Impressions: Service Date/Time: Wednesday, August 09, 2017 03:49 - CONCLUSION: 1. Nonspecific bowel gas pattern without change. 2. Left ureteral stent catheter remains in place. Norman Mitchell MD Gastrostomy Tube Placement 08/09/17 0000 Signed Impressions: Service Date/Time: Wednesday, August 09, 2017 17:54 - CONCLUSION: Unsuccessful gastrostomy tube placement secondary to overlying bowel. CT scan will be required for placement Eddie Saucedo MD ADDENDUM: Review of the CT scan demonstrates the anatomy would require placement between the ribs which would be suboptimal. This was discussed with Dr. Luca Saucedo MD Abdomen/Pelvis CT 08/06/17 0000 Signed Impressions: Service Date/Time: Monday, August 07, 2017 02:34 - CONCLUSION: 1. Diffusely dilated small bowel extending to the ileostomy. There is a small volume of free fluid in the abdomen. 2. Abnormal airspace consolidation at the lung bases bilaterally with bilateral pleural effusions. 3. There is a open sacral decubitus wound extending to the adjacent coccyx and sacrum. Luca Torres MD Cholangiopancreatography MRI 07/15/17 0000 Signed Impressions: Service Date/Time: Saturday, July 15, 2017 15:02 - CONCLUSION: 1. Ascites with small bilateral pleural effusions. 2. Small contracted gallbladder without definite stones 3. No definite common duct stone. 4. Pancreas obscured by motion. Alfredo Lora MD FACR Liver Ultrasound 07/14/17 0000 Signed Impressions: Service Date/Time: July 16:45 - CONCLUSION: 1. Small volume ascites. 2. Bilateral pleural effusions. 3. Sludge within the gallbladder with a top normal thickness of the gallbladder wall. No sonographic evidence to suggest acute cholecystitis. Pierce Ospina Jr., MD Upper Extremity Ultrasound 06/23/17 0000 Signed Impressions: Service Date/Time: June 20:03 - CONCLUSION: Noncompressibility right cephalic vein and left basilic vein consistent with venous thrombosis Trav Hsieh MD Lower Extremity Ultrasound 06/23/17 0000 Signed Impressions: Service Date/Time: June 20:16 - CONCLUSION: Normal examination. No evidence DVT Trav Hsieh MD Chest CT 06/20/17 0000 Signed Impressions: Service Date/Time: Tuesday, June 20, 2017 07:42 - CONCLUSION: 1. Bilateral effusions and consolidative changes in both lung bases. Bao Lora MD Procedures * During previous hospitalization, rectosigmoidectomy with wedge resection of liver mass 05/26/17 * During this hospitalization... * INTUBATION 06/18/17 * EXTUBATION 07/07/17 * Excision of sacral decubitus, wound VAC placement 07/17/17 Assessment and Plan Disease Oriented Problem List: (1) recurrent respiratory failure, pneumonia (2) recurrent/persistent pneumonia, probable aspiration (3) recurrent/persistent pneumonia, probable aspiration (4) recurrent UTI with resistant Pseudomonas (5) altered mental status/delirium, likely multifactorial (6) recurrent rapid atrial fib (7) septic shock requiring intubation X 17 days (8) severe malnutrition/deconditioning (9) rectal cancer November 2016, s/p radiation/chemo and surgery (10) history of anxiety (11) history of COPD (12) remote history of pancreatitis (13) BPH Symptom Scale: (1) pain 0-10 Scale: Unable to quantify (2) dyspnea 0-10 Scale: Unable to quantify (3) confusion 0-10 Scale: Unable to quantify (4) anxiety 0-10 Scale: Unable to quantify (long history of anxiety) Pertinent Non-Medical Issues Psychosocial: for 51 years, 3 daughters, one daughter . 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 Spiritual: The patient has a Baptism background, but has been on affiliated with the anabaptism for many years, and the does not believe he would want a visit from a automobile travel club counselor or from hospital chaplains. Legal: The patient lacks capacity for decision-making at the time of the initial consultation, and it is uncertain whether he will regain that capacity. His is the decision making proxy. Ethical issues impacting care: None . Important Contacts Spouse: Quynh Armendariz [phone] Daughter: Alison Matthews [phone] . Prognosis The patient's debility and deconditioning has become quite profound, and he again is suffering from hypoxic respiratory failure. In addition, he has underlying recent metastatic rectal adenocarcinoma (although the post surgery scans did not indicate any obvious metastatic disease). Overall, his prognosis for complete recovery with return to work would seem to be quite poor. . Code Status: Full Code Plan * FULL CODE * DECISION-MAKING: The patient lacks capacity for decision-making at the time of the initial consultation, and it is uncertain whether he will regain that capacity. His is the decision making proxy. * GOALS: The overall goal is to get the patient back home, even though he may remain quite weak and may even be nonambulatory. The family feels that is the most important thing, so that he can enjoy life at home and the family can enjoy him during whatever time he has left. They understand the overall prognosis is not good with the underlying malignancy and now all of the recent complications and pronounced malnutrition and deconditioning, but the goal of getting him home and functional is very important. If other even more severe complications occur during this hospitalization, then the family will reconsider the goals. * The patient's again shared some of her numerous concerns about the healthcare that the patient has received the past couple months. * The family is still grieving significantly since the withdrawal of life support and in [place] of the oldest daughter in April 2017. I have offered to connect the and 2 daughters with bereavement/grief counseling here, and they will consider that. * SYMPTOMS: The patient has denied pain except in his sacral decubitus in recent days. His delirium seems to be a little improved today and that he is better oriented. The dyspnea is currently being managed with high flow nasal oxygen and his saturations are good. * Palliative Care will continue to follow this patient during this hospitalization, to be another supportive and consistent presence for the patient, , and daughters during this very difficult hospitalization and its multiple complications and setbacks. The family is understandably feeling less than positive regarding this entire hospitalization and the patient's experience. . Time Spent Total Floor Time (mins): 39 Face to Face Time (mins): 15 >50% Counseling/Coord of Care: Yes (d/w RN) Attestation To help prompt me to consider important information that might be impacting today's encounter and assessment, information from prior notes written by myself or my colleagues may have been "brought forward" into today's note. My signature on this note, however, is an attestation that I personally performed the exam, history, and/or decision-making noted today, and, unless otherwise indicated, the interactions with patient, family, and staff as well as the review of records all occurred today. I also attest that the listed assessment and stated plan reflect my best clinical judgment today based on the combination of historical information, prior notes, and today's exam/ interactions. When time spent is documented, it refers only to time spent today by the signer, or if indicated, combined time spent today by collaborating physician/nurse practitioner. Sasha Hyde MD Aug 16, 2017 14:02
--- NOTE | 2017-08-16 14:29 | HHI.CCPN ---
Subjective Remarks/Hospital Course The patient is a 67-year-old male with past medical history of hypertension, metastatic colon cancer, tobacco abuse, who, about 3 weeks ago underwent low anterior resection with low colorectal anastomosis, diverting ileostomy, and resection of a segment of the left ureter with ureteral anastomosis and double- J stent placement. He presented yesterday with 5 day history of abdominal discomfort and increasing weakness. No history of high output from ileostomy. He was admitted to the colorectal surgery for dehydration and probable UTI. He was placed on ciprofloxacin and IV hydration. According to Dr. Geiger's note it was difficult dissection/resection colon mass because of the pelvic sidewall adherence and the adherence to the left ureter. A portion of ureter was resected due to possibility of tumor infiltration, and Dr. Augustine Pelayo re- anastomosed the ureter and placed left-sided double-J stent. Also 1 cm hepatic metastasis in his liver that was excised. Hospitalist consultation was requested for medical management and evaluation of tachycardia today. He was seen by Dr. Jay and was placed on infusion of Cardizem for heart rate 140s. Patient became hypotensive with systolic blood pressure early 90s. Lab work showed WBC 14.5 with 44% bands, creat increase from 1.2 to 1.4 and severely increased lactate at 8 from admission lactate of 2.6. CT of the abdomen pelvis done yesterday showed probable small bowel ileus. I evaluated the patient in the ICU. He is tachycardic in 140s, hypotensive and systolic blood pressure in mid 80s. Clinically appears very dehydrated, an NG tube was placed with approximately 3 L of some coffee-ground output. ABG shows a base excess of -10 and bicarbonate 12. I have ordered 4 liter normal saline boluses start 1 amp of bicarbonate, discontinued the LR infusion, and started bicarb gtt. Discontinue ciprofloxacin, started Zosyn every 6 hours, vancomycin 1 g 1. His elevated lactic acid and bandemia most likely secondary to severe sepsis, ileus, and severe dehydration. Serial lactate is ordered SUBJ 06/19: Lactic acid remains elevated at 6.6 despite getting 9 L of crystalloid boluses in last 24 hours. Tachycardia has improved heart rate in 110s. Remains on vasopressin at 0.04 units/min. Urine output almost 1200 mL overnight, OGT initial output was almost 3 L when placed yesterday a.m. Overnight had 550 mL of greenish brown fluid output. EGD pending today rule out gastric ischemia per Dr. Romero. Apparently Flex sig was negative post op in Dr. Geiger's office 06/20: Developed A. fib with RVR. Heart rate 200. Hemodynamically unstable, synchronized cardioversion attempted by Dr. Morales 100 200 J. Given 3 g mag sulfate and 80 mEq KCl 1, 0.5 digoxin 1 and started on amiodarone and Giorgio- Synephrine. Intubated due to hemodynamic instability. Currently remains sedated. Currently on Giorgio-Synephrine 80 mcg/m, and amiodarone. CT chest abdomen pelvis again confirms gastric and small bowel distention/ileus. UO 1800 ml in 24 hours 06/21: Remains critically ill, intubated sedated, on 100 mcg/min neosynpehrine. HR better controlled. NG output 1500, UO >1.4L. Am labs pending. Ileostomy sample positive for C Diff on PO vanc IV Flagyl. 06/22: Remains intubated sedated. Urine output 3000 mL with Bumex. NGT [address] Geiger did colonoscopy which was normal. Ileoscopy showed pseudomembranous colitis. Currently on 200 mcg/min of neosynephrine. Afib with RVR HR in 140's 06/23: Remains intubated sedated, remains in atrial fibrillation with RVR. Still requiring high doses of Giorgio-Synephrine at 190 mcg/min. UO 2.5L. chest x- ray showed bilateral large effusions. KUB shows improving small bowel distention. WBC count is slightly improved 06/24: Unable to control HR. Repeat shock x3 today. remains in atrial fibrillation with RVR rates 160-170 intermittently. Remains on amiodarone but will discontinued due to elevation of liver enzymes AST 546 ALT 158. (GI notified). Start Cardizem infusion and also give Surjit 0.5 mg 1. Platelet count continues to drop from 67 to today 45. Hematology following will start of Argatroban today. Creatinine has slightly increased to 1.3 to will DC Bumex infusion 06/25: Patient remains intubated sedated critically ill. Heart rate controlled for the first time since atrial fibrillation started. Heart rate remains 80- 90. Urine output 1200 mL in 24 hours but BUN/creatinine increasing 44/1.7. I will hydrate with 50 mL/hr normal saline for 24 hours. Transaminitis increasing AST 1300 ALT 386. Ultrasound of the liver unremarkable GI following 06/26: PTT elevated due to Argatorban/Liver failure. Dr. Hurley has DCd argatroban. SMILEY pending. Pl count is 21. Currently in sinus rhythm on Cardizem infusion. Not on any pressors. Creatinine improved to 1.2. Urine output adequate. Becomes very tachypneic on attempted CPAP. Discussed with Dr. Geiger Will Start Trickle Tube Feeds 06/27: no improvements. off pathway. thrombocytopenia persists. unable to wean from mechanical ventilation. neuro exam poor. will likely need trach. 06/28: platelets worse today. SMILEY not resulted yet. failing SBT and mental status poor. poor prognosis. will need trach and LTAC placement. 06/29: Tmax 101. Currently 99.6. Tolerating trickle tube feeds. Continues to fail spontaneous breathing trials. 06/30: Lasted 1 hour spontaneous breathing trial this AM. 2.5 hours this afternoon. Currently afebrile. Hemoglobin remained stable. 07/01: lasted 4 hours on SBT, except 15 of pressure support, so not ready clinically for extubation, and even after only 4 hours, tired out and became hypoxic and tachypneic. more awake today and following commands. will likely need tracheostomy. 07/02: new fever today, but wbc normal. per ID, will culture and observe, continue flagyl/PO vanc. otherwise no changes. no improvements. 07/03: pseudomonas in sputum and urine. increase in cough and secretions. ID following and added cefepime. still weak and failing SBTs for hypoxia and tachypnea. needs tracheostomy. will need long-term rehab and likely LTAC. 07/04: Wakes up easily, follows commands. On 5 mg/hr versed. CXR pending. UO adequate. Resume SBT. Significant weight gain. approx 15 kg up. Give Bumex 2 mg IV x1 07/05: Patient is intubated sedated with 50 g per hour of fentanyl. Urine output 3 L in [address] on scheduled Bumex. Tolerating CPAP at 15/5. bring in Viibryd, which apparently patient had been on for long time. I have resumed it. 07/06: Tolerating CPAP 10/5 better today, Wakes up and following commands. Good UO with Bumex. Chest x-ray basilar opacities essentially unchanged. Increase IV Bumex to 1 mg every 12 07/07: Extubated yesterday tolerating well. Slightly tachypneic but maintain oxygen saturation and no subjective shortness of breath. Urine output remains excellent on Bumex, 2.9L in 24 hours 07/08: Lying on bed breathing comfortably urine output excellent with increased Bumex dose. 5.8 L in 24 hours. WBC count stable. Increase activity up to stretcher chair today 07/09: Tolerating by mouth diet. Eating atleast 50%. TPN reduced by half yesterday. UO remains excellent with diuresis. Attempt TPN wean off today. Breathing comfortably except intermittent tachypnea. 07/10: Appetite better, breathing more comfortably. Off TPN. UO remains excellent. Platelet count slightly dropped to 46 from 49. I will continue steroids at Solu-Medrol 20 mg IV every 12, taper only very slowly 07/11: Afebrile. Resting comfortably in bed. On nasal cannula. Reviewed vascular note does not want sacral decubitus debridement/ Subjective RECONSULT NOTE : 08/08: This is a patient well-known to the promotions assistant service. In brief this is a 67-year-old male with metastatic colon cancer status post colectomy with end ileostomy. He originally presented to the hospital with severe C. difficile ileitis and septic shock. He had a prolonged mechanical ventilation and ICU course. 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 Most recently has been on the floor and has had recurrent ileus. Over the last 3 days per nursing charting he is proximally 7 L positive as well as being 3 kg up from his weight a few days ago. His BNP is 245. He complains of worsening SOB and increasing oxygen requirement up to nonrebreather. On my evaluation this evening, he is tachypneic and dyspneic and respiratory distress on a nonrebreather. SPO2 89%. He denies chest pain, abdominal pain, nausea, vomiting. Per report, he did vomit a few times earlier today, and there is a high clinical suspicion by the hospitalist service that he had an aspiration event. He has an NG tube in place to suction. His most recent urine culture data suggests that his pseudomonas is now resistant to cefepime. For this reason infectious disease discontinued cefepime and started Zosyn today. Chest x-ray demonstrates bilateral patchy infiltrates either suggestive of volume overload or bilateral multifocal pneumonia. Limited review systems is otherwise negative unless stated above. For the remaining past medical history the patient, please see our promotions assistant consultation note from 06/18/17. SUBJ 08/09: Patient lying on the bed slightly tachypneic but respiratory distress subjectively improved. On high flow nasal cannula 80% FiO2 been just weaned to 60%. Chest x-ray shows interval improvement in bilateral infiltrates received 40 mg IV Lasix yesterday. WBC count is improved from 23.1 to 16.3. KUB shows nonspecific bowel gas pattern 08/10: Remains on high flow nasal cannula at 50% oxygen. But appears to be breathing comfortably. Urine output adequate with Lasix yesterday also. 3.9 L in 24 hours. IR unable to place PEG yesterday, Dr. Geiger will discuss with IR today 08/11: Patient is currently back on high flow NC, at 55% oxygen. CXR unchanged. K 2.8 getting replaced, IV Lasix 40 mg x1. Plan for PEG tube placement in the OR today by Dr. Watts. 08/12: Patient currently on normal partial nonrebreather with oxygen saturation 95-96%. Chest x-rays essentially unchanged I have ordered additional 40 mg Lasix today and were placed on scheduled Lasix. WBC count is trending up but patient is currently on steroids 08/13: patient CAM+ and confused this AM. o2 requirement continues to improve. hr in the 130s, afib, irregular. 08/14: very difficult to control afib RVR overnight. patient has history of refractory RVR, which during prior acute illnesses was not rate controlled despite medication and multiple cardioversion attempts. in the past, digoxin, electrolyte replacement, and diltiazem were the most effective treatments. he has had elevated LFTs in the past which were thought to be related to amiodarone. this morning, heart rate continues to be in the 170s. blood pressure is borderline hypotensive. yesterday diltiazem was increased to 90mg po q6h. dig level pending this AM. hypokalemic. 08/15: Acute respiratory decompensation with hypoxia. Placed on 100% nonrebreather with improvement in oxygen saturation of 100%. Tachypneic, but able to communicate. Chest x-ray remains unchanged. I will give additional Lasix total 40 mg now with potassium replacement. Keep NPO, re insert NGT (will d/w CRS) and get speech for swallow eval. in and out of A. fib currently sinus with PVCs 08/16: Slightly tachypneic, WBC count slightly increased to 21.6 today from 18.6. Intermittently confused, on my exam he was oriented to person and place. Anxious tremulous. Discussed with Dr. Tran, will DC Ping Hernandez. Dr. Espinoza has DC'd Zosyn today. Will re culture. CXR appears improved. Objective Vital Signs Date Time Temp Pulse Resp B/P (MAP) Pulse Ox O2 Delivery O2 Flow Rate FiO2 08/16/17 14:00 93 08/16/17 12:00 98.7 33 118/72 (87) 96 08/16/17 08:16 High Flow Nasal Cannula 25.00 30 Intake and Output 08/16/17 08/16/17 08/17/17 08:00 16:00 00:00 Intake Total 225 ml 200 ml Output Total 2250 ml Balance -2025 ml 200 ml Result Diagram: 08/16/17 0515 08/16/17 0515 Imaging Last Impressions Chest X-Ray 07/10/17 0600 Signed Impressions: Service Date/Time: Monday, July 10, 2017 04:39 - CONCLUSION: No significant change with persistent bilateral pulmonary parenchymal opacity with lower lung zone predominance likely worsening pulmonary edema and bilateral pleural effusions. Luis Armando Michel MD Abdomen X-Ray 07/06/17 0000 Signed Impressions: Service Date/Time: Thursday, July 06, 2017 13:44 - CONCLUSION: 1. Gaseous distention of multiple bowel loops. This has slightly improved. 2. Left-sided nephroureteral stent in good position. Sarwat Suarez MD Liver Ultrasound 06/24/17 0000 Signed Impressions: Service Date/Time: Saturday, June 24, 2017 16:38 - CONCLUSION: 1. Small volume ascites. 2. Small right effusion. Pierce Ospina Jr., MD Upper Extremity Ultrasound 06/23/17 Signed Impressions: Service Date/Time: June 20:03 - CONCLUSION: Noncompressibility right cephalic vein and left basilic vein consistent with venous thrombosis Trav Hsieh MD Lower Extremity Ultrasound 06/23/17 Signed Impressions: Service Date/Time: June 20:16 - CONCLUSION: Normal examination. No evidence DVT Trav Hsieh MD Chest CT 06/20/17 Signed Impressions: Service Date/Time: Tuesday, June 20, 2017 07:42 - CONCLUSION: 1. Bilateral effusions and consolidative changes in both lung bases. Bao Lora MD Abdomen/Pelvis CT 06/20/17 Signed Impressions: Service Date/Time: Tuesday, June 20, 2017 07:39 - CONCLUSION: 1. Dilated stomach and multiple dilated loops of small bowel, likely ileus. 2. No definite gastric volvulus. 3. Fat containing right inguinal hernia which also contains small portion of the urinary bladder and minimal fluid. 4. Left-sided nephroureteral stent in good position. 5. Bibasilar consolidation and small pleural effusions. Sarwat Suarez MD Objective Remarks GENERAL: 67-year-old male lying on bed, in mils respiratory distress currently on high flow nasal cannula SKIN: Warm and dry. HEENT: Normocephalic. Atraumatic. Extraocular muscles intact. NECK: The neck is supple. Trachea is midline. Positive JVD. CHEST: Bilateral coarse breath sounds, few basilar crackles. On hi emily NC CVS: Atrial fibrillation with RVR, irregularly irregular. afib by tele. ABDOMEN: Abdomen is soft. Ileostomy is functioning well. EXTREMITIES: No pedal edema or cyanosis. NEURO: Alert awake anxious oriented to person place. Moves all extremities but weak, following commands. Tremulous A/P Assessment and Plan Assessment: This is a 67-year-old male with colon cancer and recurrent pseudomonal infections who presents with recurrent respiratory distress, acute hypoxic respiratory failure. Now back in afib RVR which in the past has been very refractory. will aggressively replace electrolytes. f/u dig level- would consider re-bolusing digoxin iv if able. Delirium persists, and poor sleep overnight. will start zyprexa sublingual for this. highly complex and clinically worse today than yesterday with multiple ongoing medical problems. Now with acute worsening of hypoxemia. Speech has found no evidence of aspiration Active Problems: Acute hypoxemic respiratory failure-improving COPD with exacerbation Aspiration pneumonia Pulmonary Edema/Acute intravascular volume overload HCAP with Pseudomonas Agitated Delirium - persistent Atrial fibrillation with intermittent rapid ventricular response C Diff ileitis UTI with Pseudomonas - resolving. s/p Pseudomonas bacteremia s/p Partial resection of the left ureter with anastomosis and placement of double-J stent Recurrent ileus Acute protein calorie malnutrition- severe. Metastatic colon cancer s/p resection Plan: Respiratory status slightly improved, acceptable oxygen saturations on high flow nasal cannula, chest x-ray on my review of improving infiltrates Regular basic diet. Cleared By speech Delirium persists. Recheck cultures Discontinue Zyprexa discontinue melatonin discontinue Reglan. Use when necessary Haldol and low dose Ativan. Continue Vibrrid Continue by mouth vancomycin. IV Zosyn and IV Flagyl discontinued per ID Previous Pseudomonas bacteremia UTI and HCAP Scheduled Lasix 20 mg IV q12h. TPN 40 ml per hour. Reduce to 30 ml per hour DuoNeb, IV steroids -solumedrol reduced to 40 q8h -will reduce to 40 q12- delirium could be steroid induced Continue Symbicort, Spiriva, EzPAP, acapella, DuoNeb's Relative contraindication of BiPAP being high aspiration risk, ileus, no absolute contraindication IR, GI unable to place PEG tube. D/W Dr. Pelayo re: ureteral stent removal- recommended postponing until more stable Hold cardizem to 90 mg po q6h, placed on cardizem gtt continue metoprolol 5mg iv q4h Digoxin IV stopped amio infusion due to previous liver enzyme elevation aggressively replace electrolytes, target mg > 2.0, k > 4.0 remain in icu. clinically slightly improved today. Level 3 Shiva Segovia MD Aug 16, 2017 14:29
[2017-08-16 17:16] LABS: BACTERIA, URINE FEW /hpf; BLOOD, URINE MOD (NEG); COMMENT (UR) CATH-CULTURE IND; CULTURE IF INDICATED CATH CULTURE IND; GLUCOSE,URINE NEG (NEG); KETONE, URINE NEG (NEG); MUCUS URINE FEW /lpf (OCC); NITRITE,URINE NEG (NEG); URINE COLOR YELLOW (YELLW/STRAW)
[2017-08-16] MEDS: FAMOTIDINE 20 MG TAB PO SCH (20:28)
[2017-08-16] MEDS: TAMSULOSIN HCL 0.4 MG CAP PO SCH (20:29)
[2017-08-16] MEDS: VIIBRYD 40 MG PO SCH (20:30)
[2017-08-16] MEDS: CLINIMIX E 4.25/5 1000 mL- </= 42 mls/hr IV SCH ×3 (20:34)
[2017-08-17] VITALS (13 sets, daily range): BP systolic 105–138; BP diastolic 58–81; PULSE 85–111; RESP 20–28; TEMP 98–98.7; O2SAT 96–100
[2017-08-17] MEDS: oxyCODONE/ACETAMINOPHEN 7.5 MG/325 MG TAB PO PRN ×2 (01:15→14:11)
[2017-08-17] MEDS: RESP: ALBUTEROL 2.5 MG/IPRATROPIUM 0.5 MG NEB (SCH) NEB ×4 (03:14→19:54)
[2017-08-17] MEDS: DILTIAZEM INJ 125 MG in SODIUM CHLORIDE 0.9% INJ 100 ML IV PRN (06:29)
[2017-08-17] MEDS: INSULIN ASPART SUPPLEMENTAL SCALE SQ SCH ×4 (08:00→21:00)
[2017-08-17] MEDS: FUROSEMIDE 20 MG/2 ML VIAL IV PUSH SCH (08:03)
[2017-08-17] MEDS: methylPREDNISolone SOD SUCC 40 MG/1 ML VIAL IV PUSH SCH ×2 (08:03→20:11)
[2017-08-17] MEDS: ENOXAPARIN SODIUM 40 MG/0.4 ML SYRINGE SQ SCH (08:03)
[2017-08-17] MEDS: VANCOMYCIN 500 MG VIAL (FOR ORAL USE ONLY) PO SCH ×4 (08:03→20:11)
[2017-08-17] MEDS: DIGOXIN 0.5 MG/2 ML VIAL IV PUSH SCH (08:04)
[2017-08-17] MEDS: BUDESONIDE-FORMOTEROL 160/4.5 MCG INHALER INH SCH ×2 (08:04→20:10)
[2017-08-17] MEDS: FAMOTIDINE 20 MG TAB PO SCH ×2 (08:04→20:11)
[2017-08-17] MEDS: TIOTROPIUM BROMIDE 18 MCG INH INH SCH (08:05)
[2017-08-17] MEDS ORDERED: CEFEPIME INJ 2,000 MG in SODIUM CHLORIDE 0.9% INJ 100 ML IV SCH (08:45)
--- NOTE | 2017-08-17 09:14 | HHI.PR ---
Subjective Remarks Pt not confused but tremulous. Awake alert and oriented. Objective Vital Signs Date Time Temp Pulse Resp B/P (MAP) Pulse Ox O2 Delivery O2 Flow Rate FiO2 08/17/17 07:39 99 Nasal Cannula 4.00 08/17/17 06:29 97 117/63 08/17/17 06:00 92 08/17/17 04:00 96 08/17/17 04:00 98.4 96 24 119/66 (83) 98 08/17/17 02:00 90 08/17/17 00:00 98.6 87 22 118/58 (78) 100 08/17/17 00:00 87 08/16/17 22:00 99 08/16/17 20:54 99 Nasal Cannula 4.00 08/16/17 20:30 11 118/64 08/16/17 20:29 118 10/65 08/16/17 20:00 98.2 96 24 115/69 (84) 99 08/16/17 20:00 106 08/16/17 19:00 99 Nasal Cannula 4.00 08/16/17 18:00 118 08/16/17 16:00 98.7 95 29 110/78 (89) 95 08/16/17 16:00 95 08/16/17 14:00 93 08/16/17 12:00 102 08/16/17 12:00 98.7 102 33 118/72 (87) 96 08/16/17 11:26 140 106/63 08/16/17 10:00 110 I/O 08/16/17 08/16/17 08/16/17 08/17/17 08/17/17 08/17/17 07:00 15:00 23:00 07:00 15:00 23:00 Intake Total 225 ml 200 ml 1465 ml 545 ml Output Total 2250 ml 1000 ml 1750 ml Balance -2025 ml 200 ml 465 ml -1205 ml Intake Oral 240 ml 420 ml IV Total 225 ml 200 ml 1225 ml 125 ml Output Urine Total 2000 ml 700 ml 1400 ml Stool Total 250 ml 300 ml 350 ml Drainage Total 0 ml Result Diagram: 08/16/17 0515 08/16/17 1831 Objective Remarks VS-S Gen:uite tremulous. Seems metabolic Abd: soft,flat,non tender.appliance dislodged. . Assessment and Plan Assessment and Plan Decubitus Poor nutrition. Severe deconditioning C Diff negative. No diarrhea. Tremulous Zosyn for Pseudomonas Needs aggressive PT and Nutrition to fully heal decubitus and recover Continue PO vancomycin Should have PT everyday including weekends. Needs position changes for Pulmonary toilet Continue Lasix Passed swallowing eval. D/W Dr Segovia-Will stop all meds that could confuse Luca Geiger MD Aug 17, 2017 09:14
--- NOTE | 2017-08-17 10:19 | HHI.CCPN ---
Subjective Remarks/Hospital Course The patient is a 67-year-old male with past medical history of hypertension, metastatic colon cancer, tobacco abuse, who, about 3 weeks ago underwent low anterior resection with low colorectal anastomosis, diverting ileostomy, and resection of a segment of the left ureter with ureteral anastomosis and double- J stent placement. He presented yesterday with 5 day history of abdominal discomfort and increasing weakness. No history of high output from ileostomy. He was admitted to the colorectal surgery for dehydration and probable UTI. He was placed on ciprofloxacin and IV hydration. According to Dr. Geiger's note it was difficult dissection/resection colon mass because of the pelvic sidewall adherence and the adherence to the left ureter. A portion of ureter was resected due to possibility of tumor infiltration, and Dr. Augustine Pelayo re- anastomosed the ureter and placed left-sided double-J stent. Also 1 cm hepatic metastasis in his liver that was excised. Hospitalist consultation was requested for medical management and evaluation of tachycardia today. He was seen by Dr. Jay and was placed on infusion of Cardizem for heart rate 140s. Patient became hypotensive with systolic blood pressure early 90s. Lab work showed WBC 14.5 with 44% bands, creat increase from 1.2 to 1.4 and severely increased lactate at 8 from admission lactate of 2.6. CT of the abdomen pelvis done yesterday showed probable small bowel ileus. I evaluated the patient in the ICU. He is tachycardic in 140s, hypotensive and systolic blood pressure in mid 80s. Clinically appears very dehydrated, an NG tube was placed with approximately 3 L of some coffee-ground output. ABG shows a base excess of -10 and bicarbonate 12. I have ordered 4 liter normal saline boluses start 1 amp of bicarbonate, discontinued the LR infusion, and started bicarb gtt. Discontinue ciprofloxacin, started Zosyn every 6 hours, vancomycin 1 g 1. His elevated lactic acid and bandemia most likely secondary to severe sepsis, ileus, and severe dehydration. Serial lactate is ordered SUBJ 06/19: Lactic acid remains elevated at 6.6 despite getting 9 L of crystalloid boluses in last 24 hours. Tachycardia has improved heart rate in 110s. Remains on vasopressin at 0.04 units/min. Urine output almost 1200 mL overnight, OGT initial output was almost 3 L when placed yesterday a.m. Overnight had 550 mL of greenish brown fluid output. EGD pending today rule out gastric ischemia per Dr. Romero. Apparently Flex sig was negative post op in Dr. Geiger's office 06/20: Developed A. fib with RVR. Heart rate 200. Hemodynamically unstable, synchronized cardioversion attempted by Dr. Morales 100 200 J. Given 3 g mag sulfate and 80 mEq KCl 1, 0.5 digoxin 1 and started on amiodarone and Giorgio- Synephrine. Intubated due to hemodynamic instability. Currently remains sedated. Currently on Giorgio-Synephrine 80 mcg/m, and amiodarone. CT chest abdomen pelvis again confirms gastric and small bowel distention/ileus. UO 1800 ml in 24 hours 06/21: Remains critically ill, intubated sedated, on 100 mcg/min neosynpehrine. HR better controlled. NG output 1500, UO >1.4L. Am labs pending. Ileostomy sample positive for C Diff on PO vanc IV Flagyl. 06/22: Remains intubated sedated. Urine output 3000 mL with Bumex. NGT [address] Geiger did colonoscopy which was normal. Ileoscopy showed pseudomembranous colitis. Currently on 200 mcg/min of neosynephrine. Afib with RVR HR in 140's 06/23: Remains intubated sedated, remains in atrial fibrillation with RVR. Still requiring high doses of Giorgio-Synephrine at 190 mcg/min. UO 2.5L. chest x- ray showed bilateral large effusions. KUB shows improving small bowel distention. WBC count is slightly improved 06/24: Unable to control HR. Repeat shock x3 today. remains in atrial fibrillation with RVR rates 160-170 intermittently. Remains on amiodarone but will discontinued due to elevation of liver enzymes AST 546 ALT 158. (GI notified). Start Cardizem infusion and also give Surjit 0.5 mg 1. Platelet count continues to drop from 67 to today 45. Hematology following will start of Argatroban today. Creatinine has slightly increased to 1.3 to will DC Bumex infusion 06/25: Patient remains intubated sedated critically ill. Heart rate controlled for the first time since atrial fibrillation started. Heart rate remains 80- 90. Urine output 1200 mL in 24 hours but BUN/creatinine increasing 44/1.7. I will hydrate with 50 mL/hr normal saline for 24 hours. Transaminitis increasing AST 1300 ALT 386. Ultrasound of the liver unremarkable GI following 06/26: PTT elevated due to Argatorban/Liver failure. Dr. Hurley has DCd argatroban. SMILEY pending. Pl count is 21. Currently in sinus rhythm on Cardizem infusion. Not on any pressors. Creatinine improved to 1.2. Urine output adequate. Becomes very tachypneic on attempted CPAP. Discussed with Dr. Geiger Will Start Trickle Tube Feeds 06/27: no improvements. off pathway. thrombocytopenia persists. unable to wean from mechanical ventilation. neuro exam poor. will likely need trach. 06/28: platelets worse today. SMILEY not resulted yet. failing SBT and mental status poor. poor prognosis. will need trach and LTAC placement. 06/29: Tmax 101. Currently 99.6. Tolerating trickle tube feeds. Continues to fail spontaneous breathing trials. 06/30: Lasted 1 hour spontaneous breathing trial this AM. 2.5 hours this afternoon. Currently afebrile. Hemoglobin remained stable. 07/01: lasted 4 hours on SBT, except 15 of pressure support, so not ready clinically for extubation, and even after only 4 hours, tired out and became hypoxic and tachypneic. more awake today and following commands. will likely need tracheostomy. 07/02: new fever today, but wbc normal. per ID, will culture and observe, continue flagyl/PO vanc. otherwise no changes. no improvements. 07/03: pseudomonas in sputum and urine. increase in cough and secretions. ID following and added cefepime. still weak and failing SBTs for hypoxia and tachypnea. needs tracheostomy. will need long-term rehab and likely LTAC. 07/04: Wakes up easily, follows commands. On 5 mg/hr versed. CXR pending. UO adequate. Resume SBT. Significant weight gain. approx 15 kg up. Give Bumex 2 mg IV x1 07/05: Patient is intubated sedated with 50 g per hour of fentanyl. Urine output 3 L in [address] on scheduled Bumex. Tolerating CPAP at 15/5. bring in Viibryd, which apparently patient had been on for long time. I have resumed it. 07/06: Tolerating CPAP 10/5 better today, Wakes up and following commands. Good UO with Bumex. Chest x-ray basilar opacities essentially unchanged. Increase IV Bumex to 1 mg every 12 07/07: Extubated yesterday tolerating well. Slightly tachypneic but maintain oxygen saturation and no subjective shortness of breath. Urine output remains excellent on Bumex, 2.9L in 24 hours 07/08: Lying on bed breathing comfortably urine output excellent with increased Bumex dose. 5.8 L in 24 hours. WBC count stable. Increase activity up to stretcher chair today 07/09: Tolerating by mouth diet. Eating atleast 50%. TPN reduced by half yesterday. UO remains excellent with diuresis. Attempt TPN wean off today. Breathing comfortably except intermittent tachypnea. 07/10: Appetite better, breathing more comfortably. Off TPN. UO remains excellent. Platelet count slightly dropped to 46 from 49. I will continue steroids at Solu-Medrol 20 mg IV every 12, taper only very slowly 07/11: Afebrile. Resting comfortably in bed. On nasal cannula. Reviewed vascular note does not want sacral decubitus debridement/ Subjective RECONSULT NOTE : 08/08: This is a patient well-known to the [employer] operator service. In brief this is a 67-year-old male with metastatic colon cancer status post colectomy with end ileostomy. He originally presented to the hospital with severe C. difficile ileitis and septic shock. He had a prolonged mechanical ventilation and ICU course. 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 Most recently has been on the floor and has had recurrent ileus. Over the last 3 days per nursing charting he is proximally 7 L positive as well as being 3 kg up from his weight a few days ago. His BNP is 245. He complains of worsening SOB and increasing oxygen requirement up to nonrebreather. On my evaluation this evening, he is tachypneic and dyspneic and respiratory distress on a nonrebreather. SPO2 89%. He denies chest pain, abdominal pain, nausea, vomiting. Per report, he did vomit a few times earlier today, and there is a high clinical suspicion by the hospitalist service that he had an aspiration event. He has an NG tube in place to suction. His most recent urine culture data suggests that his pseudomonas is now resistant to cefepime. For this reason infectious disease discontinued cefepime and started Zosyn today. Chest x-ray demonstrates bilateral patchy infiltrates either suggestive of volume overload or bilateral multifocal pneumonia. Limited review systems is otherwise negative unless stated above. For the remaining past medical history the patient, please see our [employer] operator consultation note from 06/18/17. SUBJ 08/09: Patient lying on the bed slightly tachypneic but respiratory distress subjectively improved. On high flow nasal cannula 80% FiO2 been just weaned to 60%. Chest x-ray shows interval improvement in bilateral infiltrates received 40 mg IV Lasix yesterday. WBC count is improved from 23.1 to 16.3. KUB shows nonspecific bowel gas pattern 08/10: Remains on high flow nasal cannula at 50% oxygen. But appears to be breathing comfortably. Urine output adequate with Lasix yesterday also. 3.9 L in 24 hours. IR unable to place PEG yesterday, Dr. Geiger will discuss with IR today 08/11: Patient is currently back on high flow NC, at 55% oxygen. CXR unchanged. K 2.8 getting replaced, IV Lasix 40 mg x1. Plan for PEG tube placement in the OR today by Dr. Watts. 08/12: Patient currently on normal partial nonrebreather with oxygen saturation 95-96%. Chest x-rays essentially unchanged I have ordered additional 40 mg Lasix today and were placed on scheduled Lasix. WBC count is trending up but patient is currently on steroids 08/13: patient CAM+ and confused this AM. o2 requirement continues to improve. hr in the 130s, afib, irregular. 08/14: very difficult to control afib RVR overnight. patient has history of refractory RVR, which during prior acute illnesses was not rate controlled despite medication and multiple cardioversion attempts. in the past, digoxin, electrolyte replacement, and diltiazem were the most effective treatments. he has had elevated LFTs in the past which were thought to be related to amiodarone. this morning, heart rate continues to be in the 170s. blood pressure is borderline hypotensive. yesterday diltiazem was increased to 90mg po q6h. dig level pending this AM. hypokalemic. 08/15: Acute respiratory decompensation with hypoxia. Placed on 100% nonrebreather with improvement in oxygen saturation of 100%. Tachypneic, but able to communicate. Chest x-ray remains unchanged. I will give additional Lasix total 40 mg now with potassium replacement. Keep NPO, re insert NGT (will d/w CRS) and get speech for swallow eval. in and out of A. fib currently sinus with PVCs 08/16: Slightly tachypneic, WBC count slightly increased to 21.6 today from 18.6. Intermittently confused, on my exam he was oriented to person and place. Anxious tremulous. Discussed with Dr. Tran, will DC Ping Hernandez. Dr. Espinoza has DC'd Zosyn today. Will re culture. CXR appears improved. 08/17: Improved oxygenation on 4L NC today, improving mentation. UA shows evidence of UTI with yeast. Change Han, started Diflucan. Zosyn DCd yesterday. labs are pending Objective Vital Signs Date Time Temp Pulse Resp B/P (MAP) Pulse Ox O2 Delivery O2 Flow Rate FiO2 08/17/17 07:39 99 Nasal Cannula 4.00 08/17/17 06:29 97 117/63 08/17/17 04:00 98.4 24 08/16/17 08:16 30 Intake and Output 08/17/17 08/17/17 08/18/17 08:00 16:00 00:00 Intake Total 545 ml Output Total 1750 ml Balance -1205 ml Result Diagram: 08/16/17 0515 08/16/17 1831 Imaging Last Impressions Chest X-Ray 07/10/17 0600 Signed Impressions: Service Date/Time: Monday, July 10, 2017 04:39 - CONCLUSION: No significant change with persistent bilateral pulmonary parenchymal opacity with lower lung zone predominance likely worsening pulmonary edema and bilateral pleural effusions. Luis Armando Michel MD Abdomen X-Ray 07/06/17 0000 Signed Impressions: Service Date/Time: Thursday, July 06, 2017 13:44 - CONCLUSION: 1. Gaseous distention of multiple bowel loops. This has slightly improved. 2. Left-sided nephroureteral stent in good position. Sarwat Suarez MD Liver Ultrasound 06/24/17 Signed Impressions: Service Date/Time: Saturday, June 24, 2017 16:38 - CONCLUSION: 1. Small volume ascites. 2. Small right effusion. Pierce Ospina Jr., MD Upper Extremity Ultrasound 06/23/17 Signed Impressions: Service Date/Time: June 20:03 - CONCLUSION: Noncompressibility right cephalic vein and left basilic vein consistent with venous thrombosis Trav Hsihe MD Lower Extremity Ultrasound 06/23/17 Signed Impressions: Service Date/Time: June 20:16 - CONCLUSION: Normal examination. No evidence DVT Trav Hsieh MD Chest CT 06/20/17 Signed Impressions: Service Date/Time: Tuesday, June 20, 2017 07:42 - CONCLUSION: 1. Bilateral effusions and consolidative changes in both lung bases. Bao Lora MD Abdomen/Pelvis CT 06/20/17 Signed Impressions: Service Date/Time: Tuesday, June 20, 2017 07:39 - CONCLUSION: 1. Dilated stomach and multiple dilated loops of small bowel, likely ileus. 2. No definite gastric volvulus. 3. Fat containing right inguinal hernia which also contains small portion of the urinary bladder and minimal fluid. 4. Left-sided nephroureteral stent in good position. 5. Bibasilar consolidation and small pleural effusions. Sarwat Suarez MD Objective Remarks GENERAL: 67-year-old male lying on bed, in mild respiratory distress currently on nasal cannula SKIN: Warm and dry. HEENT: Normocephalic. Atraumatic. Extraocular muscles intact. NECK: The neck is supple. Trachea is midline. CHEST: Bilateral coarse breath sounds, few basilar crackles. On NC CVS: Currently NSR, no murmurs ABDOMEN: Abdomen is soft. Ileostomy is functioning well. EXTREMITIES: No pedal edema or cyanosis. NEURO: Alert awake anxious oriented to person place, also knows its [place] time. Moves all extremities but weak, following commands. Extremity tremors improved A/P Assessment and Plan Assessment: This is a 67-year-old male with colon cancer and recurrent pseudomonal infections who presents with recurrent respiratory distress, acute hypoxic respiratory failure. Now back in afib RVR which in the past has been very refractory. will aggressively replace electrolytes. f/u dig level- would consider re-bolusing digoxin iv if able. Delirium persists, and poor sleep overnight. will start zyprexa sublingual for this. highly complex and clinically worse today than yesterday with multiple ongoing medical problems. Now with acute worsening of hypoxemia. Speech has found no evidence of aspiration Active Problems: Acute hypoxemic respiratory failure-improving COPD with exacerbation Aspiration pneumonia Fungal UTI Pulmonary Edema/Acute intravascular volume overload HCAP with Pseudomonas Agitated Delirium - persistent Atrial fibrillation with intermittent rapid ventricular response C Diff ileitis UTI with Pseudomonas s/p treatment s/p Pseudomonas bacteremia s/p treatment s/p Partial resection of the left ureter with anastomosis and placement of double-J stent Recurrent ileus Acute protein calorie malnutrition- severe. Metastatic colon cancer s/p resection Plan: Respiratory status improving, acceptable oxygen saturations on nasal cannula, chest x-ray 08/16 on my review of improving infiltrates Continue DuoNeb Regular basic diet. Cleared By speech Delirium improving, UA shows UTI with yeast. Diflucan started 08/17 Discontinued Zyprexa Reglan 08/17. Use when necessary Haldol and low dose Ativan. Continue Vibrrid Continue by mouth vancomycin. IV Zosyn and IV Flagyl discontinued per ID 08/16 Previous Pseudomonas bacteremia UTI and HCAP Scheduled Lasix 20 mg IV q12h. TPN 30 ml per hour. Reduce to 20 ml per hour IV solumedrol reduced to 40 q12, will change to 20 q12 today Continue Symbicort, Spiriva, EzPAP, acapella, DuoNeb's Relative contraindication of BiPAP being high aspiration risk, ileus, no absolute contraindication IR, GI unable to place PEG tube. D/W Dr. Pelayo re: ureteral stent removal- recommended postponing until more stable Resume Cardizem to 90 mg po q6h, and wean off Cardizem gtt Resume PO Digoxin Continue metoprolol 5mg iv q4h Digoxin IV Stopped amio infusion due to previous liver enzyme elevation aggressively replace electrolytes, target mg > 2.0, k > 4.0 remain in icu. clinically slightly improved today. Level 3 Shiva Segovia MD Aug 17, 2017 10:19
[2017-08-17 10:24] LABS: AUTOMATED NEUTROPHIL # 20.2 TH/MM3 (1.8-7.7); HEMATOCRIT 26.4 % (39.0-51.0); LYMPH % 1.2 % (9.0-44.0); LYMPHOCYTE # 0.3 TH/MM3 (1.0-4.8); MEAN CELL VOLUME 92.5 FL (80.0-100.0); MEAN CORPUSCULAR HEMOGLOBIN 29.5 PG (27.0-34.0); MEAN CORPUSCULAR HGB CONC 31.9 % (32.0-36.0); MONO % 2.7 % (0.0-8.0); NEUT % 96.1 % (16.0-70.0); PLATELET COUNT 232 TH/MM3 (150-450); RED BLOOD COUNT 2.85 MIL/MM3 (4.50-5.90); RED CELL DISTRIBUTION WIDTH 21.3 % (11.6-17.2); WHITE BLOOD COUNT 21.1 TH/MM3 (4.0-11.0)
[2017-08-17 10:29] LABS: HEMO FLAGS AUTO DIFF
--- NOTE | 2017-08-17 10:38 | HHI.HCPN ---
Reason for visit a. To assist with evaluation and management of symptoms including: Dyspnea , confusion, dysphagia b. To assist medical decision maker(s) with: better understanding of current medical conditions; weighing benefits/burdens of medical treatment options; making medical treatment decisions. . Subjective/Interval History INTERVAL NOTE: The patient seems better, more alert today. He is up in the chair, is oriented. He denies pain at this time. He says he is not dyspneic, and he is now down to 4 L nasal cannula with oxygen saturation 95%. White count is 21,000. . Family/friend interactions Spoke with patient's again by telephone. She did share concern that the curtain was not pulled while the patient was being attended to and was naked in his bed. She is happy that he seems a little better, and she is optimistic that he will continue to eat better, get stronger, and make it to Rehab. . Advance Directives Living Will: Never completed Health Care Surrogate: Never completed Durable Power of Certified Adapted Physical Educator: Never completed Objective Vital Signs Date Time Temp Pulse Resp B/P (MAP) Pulse Ox O2 Delivery O2 Flow Rate FiO2 08/17/17 10:00 89 08/17/17 08:00 98.7 85 20 138/69 (92) 96 08/17/17 08:00 85 08/17/17 07:39 99 Nasal Cannula 4.00 08/17/17 07:00 97 Nasal Cannula 4.00 08/17/17 06:29 97 117/63 08/17/17 06:00 92 08/17/17 04:00 96 08/17/17 04:00 98.4 96 24 119/66 (83) 98 08/17/17 02:00 90 08/17/17 00:00 98.6 87 22 118/58 (78) 100 08/17/17 00:00 87 08/16/17 22:00 99 08/16/17 20:54 99 Nasal Cannula 4.00 08/16/17 20:30 11 118/64 08/16/17 20:29 118 10/65 08/16/17 20:00 98.2 96 24 115/69 (84) 99 08/16/17 20:00 106 08/16/17 19:00 99 Nasal Cannula 4.00 08/16/17 18:00 118 08/16/17 16:00 98.7 95 29 110/78 (89) 95 08/16/17 16:00 95 08/16/17 14:00 93 08/16/17 12:00 102 08/16/17 12:00 98.7 102 33 118/72 (87) 96 08/16/17 11:26 140 106/63 Intake & Output 08/17/17 08/17/17 07:00 19:00 Intake Total 1670 ml Output Total 1750 ml Balance -80 ml Intake Oral 420 ml IV Total 1250 ml Output Urine Total 1400 ml Stool Total 350 ml Physical Exam CONSTITUTIONAL/GENERAL: This is a weak, thin, more alert patient, in no apparent distress. TUBES/LINES/DRAINS: nasal cannula oxygen SKIN: No jaundice, rashes. A wound VAC is present on the sacral wound. Ecchymoses on upper extremities. No wounds seen anteriorly. Skin temperature appropriate. Not diaphoretic. NECK: Trachea midline. Supple, nontender. No palpable thyroid enlargement or nodularity. CARDIOVASCULAR: Irregular without murmurs, gallops, or rubs. No JVD. Peripheral pulses symmetric. RESPIRATORY/CHEST: Symmetric, unlabored respirations. Clear to auscultation. Breath sounds equal bilaterally. No wheezes, rales, or rhonchi. GASTROINTESTINAL: Abdomen soft, non-tender, nondistended. No hepato-splenomegaly , or palpable masses. Ileostomy present. Bowel sounds present. MUSCULOSKELETAL: Extremities without clubbing, cyanosis, or edema. No joint tenderness or effusion noted. No calf tenderness. No mottling or clubbing. NEUROLOGICAL: Awake and alert. No obvious motor deficits, but he is weak globally. Moves all extremities. PSYCHIATRIC: More alert, not confused this morning, feels "shaky". . Diagnostic Tests Laboratory Laboratory Tests Test 08/15/17 03:35 08/15/17 06:00 08/16/17 05:15 08/16/17 11:35 Potassium Level 3.4 MEQ/L (3.5-5.1) 3.2 MEQ/L (3.5-5.1) Blood Gas Puncture Site RT BRACHIAL Blood Gas Patient Temperature 98.6 Blood Gas HCO3 23 mmol/L (22-26) Blood Gas Base Excess 0.3 mmol/L (-2-2) Blood Gas Oxygen Saturation 84 % (90-100) Arterial Blood pH 7.52 (7.380-7.420) Arterial Blood Partial Pressure CO2 29 mmHg (38-42) Arterial Blood Partial Pressure O2 50 mmHg (61-120) Arterial Blood Oxygen Content 9.9 Vol % (12.0-20.0) Arterial Blood Carboxyhemoglobin 1.9 % (0-4) Arterial Blood Methemoglobin 0.8 % (0-2) Blood Gas Hemoglobin 8.4 G/DL (12.0-16.0) Oxygen Delivery Device NASAL CANNULA Blood Gas Liter Flow 6 L/M White Blood Count 21.6 TH/MM3 (4.0-11.0) Red Blood Count 2.70 MIL/MM3 (4.50-5.90) Hemoglobin 8.1 GM/DL (13.0-17.0) Hematocrit 24.8 % (39.0-51.0) Mean Corpuscular Volume 91.6 FL (80.0-100.0) Mean Corpuscular Hemoglobin 30.0 PG (27.0-34.0) Mean Corpuscular Hemoglobin Concent 32.8 % (32.0-36.0) Red Cell Distribution Width 20.6 % (11.6-17.2) Platelet Count 234 TH/MM3 (150-450) Mean Platelet Volume 9.7 FL (7.0-11.0) Neutrophils (%) (Auto) 93.2 % (16.0-70.0) Lymphocytes (%) (Auto) 1.7 % (9.0-44.0) Monocytes (%) (Auto) 4.0 % (0.0-8.0) Eosinophils (%) (Auto) 0.0 % (0.0-4.0) Basophils (%) (Auto) 1.1 % (0.0-2.0) Neutrophils # (Auto) 20.1 TH/MM3 (1.8-7.7) Lymphocytes # (Auto) 0.4 TH/MM3 (1.0-4.8) Monocytes # (Auto) 0.9 TH/MM3 (0-0.9) Eosinophils # (Auto) 0.0 TH/MM3 (0-0.4) Basophils # (Auto) 0.2 TH/MM3 (0-0.2) CBC Comment AUTO DIFF Differential Comment AUTO DIFF CONFIRMED Blood Urea Nitrogen 25 MG/DL (7-18) Creatinine 0.75 MG/DL (0.60-1.30) Random Glucose 114 MG/DL (74-106) Total Protein 4.8 GM/DL (6.4-8.2) Albumin 1.6 GM/DL (3.4-5.0) Calcium Level 7.2 MG/DL (8.5-10.1) Phosphorus Level 2.2 MG/DL (2.5-4.9) Magnesium Level 2.2 MG/DL (1.5-2.5) Alkaline Phosphatase 149 U/L (45-117) Aspartate Amino Transf (AST/SGOT) 19 U/L (15-37) Alanine Aminotransferase (ALT/SGPT) 23 U/L (12-78) Total Bilirubin 1.2 MG/DL (0.2-1.0) Sodium Level 143 MEQ/L (136-145) Chloride Level 109 MEQ/L (98-107) Carbon Dioxide Level 25.2 MEQ/L (21.0-32.0) Anion Gap 9 MEQ/L (5-15) Estimat Glomerular Filtration Rate 104 ML/MIN (>89) Protein Corrected Calcium 8.5 MG/DL (8.5-10.1) B-Type Natriuretic Peptide 231 PG/ML (0-100) Vitamin B12 Level 1365 PG/ML (193-986) Ammonia LESS THAN 10 MCMOL/L Test 08/16/17 16:15 08/16/17 18:31 08/17/17 09:55 Urine Color YELLOW (YELLW/STRAW) Urine Turbidity CLOUDY (CLEAR) Urine pH 8.0 (5.0-8.5) Urine Specific Hagerman 1.015 (1.002-1.035) Urine Protein TRACE mg/dL (NEG-TRACE) Urine Glucose (UA) NEG mg/dL (NEG) Urine Ketones NEG mg/dL (NEG) Urine Occult Blood MOD (NEG) Urine Nitrite NEG (NEG) Urine Bilirubin NEG (NEG) Urine Urobilinogen LESS THAN 2.0 MG/DL (LESS Urine Leukocyte Esterase LARGE (NEG) Urine RBC /hpf (0-3) Urine WBC 117 /hpf (0-5) Urine Bacteria FEW /hpf (NONE) Urine Mucus FEW /lpf (OCC) Urine Yeast with Hyphae MOD (NONE) Urine Yeast (Budding) MANY (NONE) Microscopic Urinalysis Comment CATH-CULTURE IND Potassium Level 4.5 MEQ/L (3.5-5.1) White Blood Count 21.1 TH/MM3 (4.0-11.0) Red Blood Count 2.85 MIL/MM3 (4.50-5.90) Hemoglobin 8.4 GM/DL (13.0-17.0) Hematocrit 26.4 % (39.0-51.0) Mean Corpuscular Volume 92.5 FL (80.0-100.0) Mean Corpuscular Hemoglobin 29.5 PG (27.0-34.0) Mean Corpuscular Hemoglobin Concent 31.9 % (32.0-36.0) Red Cell Distribution Width 21.3 % (11.6-17.2) Platelet Count 232 TH/MM3 (150-450) Mean Platelet Volume 9.3 FL (7.0-11.0) Neutrophils (%) (Auto) 96.1 % (16.0-70.0) Lymphocytes (%) (Auto) 1.2 % (9.0-44.0) Monocytes (%) (Auto) 2.7 % (0.0-8.0) Eosinophils (%) (Auto) 0.0 % (0.0-4.0) Basophils (%) (Auto) 0.0 % (0.0-2.0) Neutrophils # (Auto) 20.2 TH/MM3 (1.8-7.7) Lymphocytes # (Auto) 0.3 TH/MM3 (1.0-4.8) Monocytes # (Auto) 0.6 TH/MM3 (0-0.9) Eosinophils # (Auto) 0.0 TH/MM3 (0-0.4) Basophils # (Auto) 0.0 TH/MM3 (0-0.2) CBC Comment AUTO DIFF Result Diagram: 08/17/17 0955 08/16/17 1831 Microbiology Microbiology Date/Time Source Procedure Growth Status 08/16/17 16:15 Urine Catheterized Urine Urine Culture Pending Received Procedures * During previous hospitalization, rectosigmoidectomy with wedge resection of liver mass 05/26/17 * During this hospitalization... * INTUBATION 06/18/17 * EXTUBATION 07/07/17 * Excision of sacral decubitus, wound VAC placement 07/17/17 Assessment and Plan Disease Oriented Problem List: (1) recurrent respiratory failure, pneumonia (2) recurrent/persistent pneumonia, probable aspiration (3) recurrent/persistent pneumonia, probable aspiration (4) recurrent UTI with resistant Pseudomonas (5) altered mental status/delirium, likely multifactorial (6) recurrent rapid atrial fib (7) septic shock requiring intubation X 17 days (8) severe malnutrition/deconditioning (9) rectal cancer November 2016, s/p radiation/chemo and surgery (10) history of anxiety (11) history of COPD (12) remote history of pancreatitis (13) BPH Symptom Scale: (1) pain 0-10 Scale: Unable to quantify (2) dyspnea 0-10 Scale: Unable to quantify (3) confusion 0-10 Scale: Unable to quantify (4) anxiety 0-10 Scale: Unable to quantify (long history of anxiety) Pertinent Non-Medical Issues Psychosocial: for 51 years, 3 daughters, one daughter . 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 Spiritual: The patient has a Sabianism background, but has been on affiliated with the islam for many years, and the does not believe he would want a visit from a tool radial drill press set up operator or from hospital chaplains. Legal: The patient lacks capacity for decision-making at the time of the initial consultation, and it is uncertain whether he will regain that capacity. His is the decision making proxy. Ethical issues impacting care: None . Important Contacts Spouse: Quynh Armendariz [phone] Daughter: Alison Matthews [phone] . Prognosis The patient's debility and deconditioning has become quite profound, and he again is suffering from hypoxic respiratory failure. In addition, he has underlying recent metastatic rectal adenocarcinoma (although the post surgery scans did not indicate any obvious metastatic disease). Overall, his prognosis for complete recovery with return to work would seem to be quite poor. . Code Status: Full Code Plan * FULL CODE * DECISION-MAKING: The patient lacks capacity for decision-making at the time of the initial consultation, and he is improving but it is uncertain whether he will regain that capacity. His is the decision making proxy. * GOALS: The overall goal is to get the patient back home, perhaps after a stay in rehab, even though he may remain quite weak and may even be nonambulatory. The family feels that is the most important thing, so that he can enjoy life at home and the family can enjoy him during whatever time he has left. They understand the overall prognosis is not good with the underlying malignancy and now all of the recent complications and pronounced malnutrition and deconditioning, but the goal of getting him home and functional is very important. If other even more severe complications occur during this hospitalization, then the family will reconsider the goals. * The family is still grieving significantly since the withdrawal of life support and in [place] of the oldest daughter in April 2017. I have offered to connect the and 2 daughters with bereavement/grief counseling here, and they will consider that. * SYMPTOMS: The patient has denied pain except in his sacral decubitus in recent days. His delirium seems to be resolving, and his dyspnea has improved. * Palliative Care will continue to follow this patient during this hospitalization, to be another supportive and consistent presence for the patient, , and daughters during this very difficult hospitalization and its multiple complications and setbacks. The family is understandably feeling less than positive regarding this entire hospitalization and the patient's experience. . Time Spent Total Floor Time (mins): 38 Face to Face Time (mins): 11 >50% Counseling/Coord of Care: Yes (d/w Dr. Segovia) Attestation To help prompt me to consider important information that might be impacting today's encounter and assessment, information from prior notes written by myself or my colleagues may have been "brought forward" into today's note. My signature on this note, however, is an attestation that I personally performed the exam, history, and/or decision-making noted today, and, unless otherwise indicated, the interactions with patient, family, and staff as well as the review of records all occurred today. I also attest that the listed assessment and stated plan reflect my best clinical judgment today based on the combination of historical information, prior notes, and today's exam/ interactions. When time spent is documented, it refers only to time spent today by the signer, or if indicated, combined time spent today by collaborating physician/nurse practitioner. Sasha Hyde MD Aug 17, 2017 10:38
[2017-08-17 10:51] LABS: ANION GAP 8 MEQ/L (5-15); AST (GOT) 19 U/L (15-37); BICARBONATE 26.2 MEQ/L (21.0-32.0); BLOOD UREA NITROGEN 24 MG/DL (7-18); CHLORIDE 112 MEQ/L (98-107); GLOMERULAR FILTRATION RATE 112 ML/MIN (>89); MAGNESIUM 2.3 MG/DL (1.5-2.5); POTASSIUM 3.7 MEQ/L (3.5-5.1); SODIUM (NA) 146 MEQ/L (136-145)
[2017-08-17 10:55] LABS: ALKALINE PHOSPHATASE 202 U/L (45-117); ALT (GPT) 29 U/L (12-78); TOTAL BILIRUBIN ADULT 1.2 MG/DL (0.2-1.0)
[2017-08-17] MEDS ORDERED: FLUCONAZOLE 100 MG TAB PO ONE (11:00)
[2017-08-17 11:09] LABS: NEUTROPHIL # MANUAL DIFF 20.3 TH/MM3 (1.8-7.7); PLATELET ESTIMATE SMEAR NORMAL (NORMAL); PLATELET MORPHOLOGY NORMAL (NORMAL); POLYS (SEG NEUTROPHILS) 96 % (16-70); SCAN/DIFF FINAL DIFF MANUAL; WBC DIFF SAMPLE 100
[2017-08-17 11:10] LABS: HYPERSEGMENTED POLYS 1+ (NORMAL)
[2017-08-17] MEDS ORDERED: DILTIAZEM HCL 90 MG TAB PO ONE (11:30)
--- NOTE | 2017-08-17 14:01 | HHI.IDPN ---
Note Infectious Disease Note Patient is confused but more awake. at bedside. Afebrile. WBC still elevated. On O2 via nasal canula. UA has yeast. Admitted to the hospital with weakness, abdominal pain and nausea. The patient is status post anterior resection of colon and rectal areas and anastomosis along with a diverting ileostomy and also resection of a segment of left ureter with ureteral anastomosis and double-J stent placement three weeks prior. PAST MEDICAL HISTORY: 1. Hypertension. 2. Left knee surgery. 3. Metastatic colon cancer status post resection and colo-anal anastomosis and also resection and re-anastomosis of the left ureter with double-J stent placement. ALLERGIES: CODEINE. ABX: Vancomycin PO. OBJECTIVE: Vital Signs Date Time Temp Pulse Resp B/P (MAP) Pulse Ox O2 Delivery O2 Flow Rate FiO2 08/17/17 12:00 98.3 105 28 105/60 (75) 97 08/17/17 12:00 105 08/17/17 10:00 89 08/17/17 08:00 98.7 85 20 138/69 (92) 96 08/17/17 08:00 85 08/17/17 07:39 99 Nasal Cannula 4.00 08/17/17 07:00 97 Nasal Cannula 4.00 08/17/17 06:29 97 117/63 08/17/17 06:00 92 08/17/17 04:00 96 08/17/17 04:00 98.4 96 24 119/66 (83) 98 08/17/17 02:00 90 08/17/17 00:00 98.6 87 22 118/58 (78) 100 08/17/17 00:00 87 08/16/17 22:00 99 08/16/17 20:54 99 Nasal Cannula 4.00 08/16/17 20:30 11 118/64 08/16/17 20:29 118 10/65 08/16/17 20:00 98.2 96 24 115/69 (84) 99 08/16/17 20:00 106 08/16/17 19:00 99 Nasal Cannula 4.00 08/16/17 18:00 118 08/16/17 16:00 98.7 95 29 110/78 (89) 95 08/16/17 16:00 95 08/16/17 14:00 93 Laboratory Tests Test 08/16/17 05:15 08/17/17 09:55 White Blood Count 21.6 TH/MM3 21.1 TH/MM3 Red Blood Count 2.70 MIL/MM3 2.85 MIL/MM3 Hemoglobin 8.1 GM/DL 8.4 GM/DL Hematocrit 24.8 % 26.4 % Mean Corpuscular Volume 91.6 FL 92.5 FL Mean Corpuscular Hemoglobin 30.0 PG 29.5 PG Mean Corpuscular Hemoglobin Concent 32.8 % 31.9 % Red Cell Distribution Width 20.6 % 21.3 % Platelet Count 234 TH/MM3 232 TH/MM3 Mean Platelet Volume 9.7 FL 9.3 FL Neutrophils (%) (Auto) 93.2 % 96.1 % Lymphocytes (%) (Auto) 1.7 % 1.2 % Monocytes (%) (Auto) 4.0 % 2.7 % Eosinophils (%) (Auto) 0.0 % 0.0 % Basophils (%) (Auto) 1.1 % 0.0 % Neutrophils # (Auto) 20.1 TH/MM3 20.2 TH/MM3 Lymphocytes # (Auto) 0.4 TH/MM3 0.3 TH/MM3 Monocytes # (Auto) 0.9 TH/MM3 0.6 TH/MM3 Eosinophils # (Auto) 0.0 TH/MM3 0.0 TH/MM3 Basophils # (Auto) 0.2 TH/MM3 0.0 TH/MM3 CBC Comment AUTO DIFF AUTO DIFF Differential Comment AUTO DIFF CONFIRMED FINAL DIFF MANUAL Differential Total Cells Counted 100 Neutrophils % (Manual) 96 % Lymphocytes % 1 % Monocytes % 3 % Neutrophils # (Manual) 20.3 TH/MM3 Hypersegmented Polys 1+ Platelet Estimate NORMAL Platelet Morphology Comment NORMAL Laboratory Tests Test 08/16/17 05:15 08/16/17 11:35 08/16/17 18:31 08/17/17 09:55 Blood Urea Nitrogen 25 MG/DL 24 MG/DL Creatinine 0.75 MG/DL 0.70 MG/DL Random Glucose 114 MG/DL 141 MG/DL Total Protein 4.8 GM/DL 5.2 GM/DL Albumin 1.6 GM/DL 1.9 GM/DL Calcium Level 7.2 MG/DL 7.7 MG/DL Phosphorus Level 2.2 MG/DL Magnesium Level 2.2 MG/DL 2.3 MG/DL Alkaline Phosphatase 149 U/L 202 U/L Aspartate Amino Transf (AST/SGOT) 19 U/L 19 U/L Alanine Aminotransferase (ALT/SGPT) 23 U/L 29 U/L Total Bilirubin 1.2 MG/DL 1.2 MG/DL Sodium Level 143 MEQ/L 146 MEQ/L Potassium Level 3.2 MEQ/L 4.5 MEQ/L 3.7 MEQ/L Chloride Level 109 MEQ/L 112 MEQ/L Carbon Dioxide Level 25.2 MEQ/L 26.2 MEQ/L Anion Gap 9 MEQ/L 8 MEQ/L Estimat Glomerular Filtration Rate 104 ML/MIN 112 ML/MIN Protein Corrected Calcium 8.5 MG/DL B-Type Natriuretic Peptide 231 PG/ML Vitamin B12 Level 1365 PG/ML Ammonia LESS THAN 10 MCMOL/L Microbiology Date/Time Source Procedure Growth Status 08/16/17 16:15 Urine Catheterized Urine Urine Culture - Preliminary Diana Albicans Resulted IMAGING: Chest X-Ray 08/16/17 0600 Signed Impressions: Service Date/Time: Wednesday, August 16, 2017 04:47 - CONCLUSION: Persistent bilateral pulmonary infiltrates. Pierce Groves MD Chest X-Ray 08/15/17 0000 Signed Impressions: Service Date/Time: Tuesday, August 15, 2017 11:43 - CONCLUSION: 1. Bibasilar densities. 2. Adequate placement of right-sided PICC line Sarwat Suarez MD Chest X-Ray 08/15/17 0000 Signed Impressions: Service Date/Time: Tuesday, August 15, 2017 06:05 - CONCLUSION: Stable bilateral mid and lower lung infiltrates. Pierce Groves MD Chest X-Ray 08/12/17 0600 Signed Impressions: Service Date/Time: Saturday, August 12, 2017 04:25 - CONCLUSION: Bilateral alveolar and interstitial infiltrates are noted. Joel Blancas MD Chest X-Ray 08/12/17 0000 Signed Impressions: Service Date/Time: Saturday, August 12, 2017 11:02 - CONCLUSION: Stable chest x-ray with underinflation and bilateral lower lung zone airspace consolidation. Luca Torres MD Chest X-Ray 08/11/17 0000 Signed Impressions: Service Date/Time: August 07:03 - CONCLUSION: Stable single view the chest. Patchy bibasilar infiltrates are unchanged. Abad Mariano MD PHYSICAL EXAMINATION: GENERAL: No acute distress. HEENT: No icterus. Oropharynx mucosa dry. NECK: Supple. No swelling. LUNGS: Decreased breath sounds. Slight rhonchi. HEART: Regular S1-S2 without murmurs, rubs or gallops. ABDOMEN: Positive bowel sounds. Soft. Non tender. EXTREMITIES: No clubbing or cyanosis, edema. SKIN: No rash. NEUROLOGIC: Nonfocal. IMPRESSION: 1. Post treatment for Severe sepsis/ Bandemia. Status post recent surgery for rectal cancer and recent ureteral resection and double J ureteral stent. 2. C difficile colitis. Pseudomembranous enteritis/sepsis. 3. Acute respiratory failure. Extubated. 4. Pseudomonas pneumonia and UTI. Treated and improved. 5. Leukocytosis. Currently no real foci of infection is apparent. ? diana UTI. 6. UTI - Pseudomonas. RECOMMENDATIONS: 1. Continue PO Vancomycin. 2. Agree with fluconazole. 3. Monitor clinical status. El Espinoza MD Aug 17, 2017 14:01
[2017-08-17] MEDS: SODIUM HYPOCHLORITE 0.125% 500 ML BTL TOPICAL SCH (14:02)
[2017-08-17] MEDS: HALOPERIDOL LACTATE 5 MG/ML AMP IV PRN (16:40)
[2017-08-17] MEDS: DILTIAZEM HCL 60 MG TAB PO SCH ×2 (18:22→23:37)
[2017-08-17] MEDS: CLINIMIX E 4.25/5 1000 mL- </= 42 mls/hr IV SCH ×3 (20:10)
[2017-08-17] MEDS: VIIBRYD 40 MG PO SCH (20:11)
[2017-08-17] MEDS: MELATONIN 5 MG TAB PO SCH (20:11)
[2017-08-17] MEDS: TAMSULOSIN HCL 0.4 MG CAP PO SCH (20:11)
[2017-08-18] VITALS (13 sets, daily range): BP systolic 103–118; BP diastolic 50–81; PULSE 77–110; RESP 9–28; TEMP 97–99.1; O2SAT 96–100
--- NOTE | 2017-08-18 04:26 | RADRPT ---
EXAM DATE/TIME: 08/18/2017 02:38 [facility] COMPARISON: CHEST SINGLE AP, August 16, 2017, 4:47. INDICATIONS : Respiratory disease MEDICAL HISTORY : Hypertension. Carcinoma, colon SURGICAL HISTORY : Appendectomy. Colon resection ENCOUNTER: Subsequent ACUITY: 1 month PAIN SCORE: Non-responsive. LOCATION: Bilateral chest FINDINGS: PICC line catheter tip in the mid superior vena cava. Patchy areas of partial consolidative infiltra te in the medial lower lobes bilaterally are similar to prior. The heart is normal in size. Both he midiaphragms are well delineated. CONCLUSION: Stable patchy partially consolidative bilateral lower lung infiltrates. Pierce Groves MD on August 18, 2017 at 4:24 Board Certified Radiologist. This report was verified electronically.
[2017-08-18 05:56] LABS: AUTOMATED NEUTROPHIL # 12.4 TH/MM3 (1.8-7.7); BASOPHIL % 0.1 % (0.0-2.0); HEMATOCRIT 23.3 % (39.0-51.0); HEMO FLAGS DIFF FINAL; LYMPH % 1.3 % (9.0-44.0); LYMPHOCYTE # 0.2 TH/MM3 (1.0-4.8); MEAN CELL VOLUME 93.3 FL (80.0-100.0); MEAN CORPUSCULAR HEMOGLOBIN 30.1 PG (27.0-34.0); MEAN CORPUSCULAR HGB CONC 32.3 % (32.0-36.0); MONO % 2.1 % (0.0-8.0); NEUT % 96.5 % (16.0-70.0); PLATELET COUNT 197 TH/MM3 (150-450); RED CELL DISTRIBUTION WIDTH 21.1 % (11.6-17.2); WHITE BLOOD COUNT 12.9 TH/MM3 (4.0-11.0)
[2017-08-18 06:28] LABS: ANION GAP 5 MEQ/L (5-15); AST (GOT) 14 U/L (15-37); BICARBONATE 26.8 MEQ/L (21.0-32.0); BLOOD UREA NITROGEN 28 MG/DL (7-18); CHLORIDE 113 MEQ/L (98-107); GLOMERULAR FILTRATION RATE 142 ML/MIN (>89); MAGNESIUM 2.4 MG/DL (1.5-2.5); POTASSIUM 4.1 MEQ/L (3.5-5.1); SODIUM (NA) 145 MEQ/L (136-145)
[2017-08-18 06:32] LABS: ALKALINE PHOSPHATASE 207 U/L (45-117); ALT (GPT) 25 U/L (12-78); TOTAL BILIRUBIN ADULT 0.8 MG/DL (0.2-1.0)
[2017-08-18] MEDS: INSULIN ASPART SUPPLEMENTAL SCALE SQ SCH ×4 (08:00→21:00)
--- NOTE | 2017-08-18 08:02 | HHI.CCPN ---
Subjective Remarks/Hospital Course The patient is a 67-year-old male with past medical history of hypertension, metastatic colon cancer, tobacco abuse, who, about 3 weeks ago underwent low anterior resection with low colorectal anastomosis, diverting ileostomy, and resection of a segment of the left ureter with ureteral anastomosis and double- J stent placement. He presented yesterday with 5 day history of abdominal discomfort and increasing weakness. No history of high output from ileostomy. He was admitted to the colorectal surgery for dehydration and probable UTI. He was placed on ciprofloxacin and IV hydration. According to Dr. Geiger's note it was difficult dissection/resection colon mass because of the pelvic sidewall adherence and the adherence to the left ureter. A portion of ureter was resected due to possibility of tumor infiltration, and Dr. Augustine Pelayo re- anastomosed the ureter and placed left-sided double-J stent. Also 1 cm hepatic metastasis in his liver that was excised. Hospitalist consultation was requested for medical management and evaluation of tachycardia today. He was seen by Dr. Jay and was placed on infusion of Cardizem for heart rate 140s. Patient became hypotensive with systolic blood pressure early 90s. Lab work showed WBC 14.5 with 44% bands, creat increase from 1.2 to 1.4 and severely increased lactate at 8 from admission lactate of 2.6. CT of the abdomen pelvis done yesterday showed probable small bowel ileus. I evaluated the patient in the ICU. He is tachycardic in 140s, hypotensive and systolic blood pressure in mid 80s. Clinically appears very dehydrated, an NG tube was placed with approximately 3 L of some coffee-ground output. ABG shows a base excess of -10 and bicarbonate 12. I have ordered 4 liter normal saline boluses start 1 amp of bicarbonate, discontinued the LR infusion, and started bicarb gtt. Discontinue ciprofloxacin, started Zosyn every 6 hours, vancomycin 1 g 1. His elevated lactic acid and bandemia most likely secondary to severe sepsis, ileus, and severe dehydration. Serial lactate is ordered SUBJ 06/19: Lactic acid remains elevated at 6.6 despite getting 9 L of crystalloid boluses in last 24 hours. Tachycardia has improved heart rate in 110s. Remains on vasopressin at 0.04 units/min. Urine output almost 1200 mL overnight, OGT initial output was almost 3 L when placed yesterday a.m. Overnight had 550 mL of greenish brown fluid output. EGD pending today rule out gastric ischemia per Dr. Romero. Apparently Flex sig was negative post op in Dr. Geiger's office 06/20: Developed A. fib with RVR. Heart rate 200. Hemodynamically unstable, synchronized cardioversion attempted by Dr. Morales 100 200 J. Given 3 g mag sulfate and 80 mEq KCl 1, 0.5 digoxin 1 and started on amiodarone and Giorgio- Synephrine. Intubated due to hemodynamic instability. Currently remains sedated. Currently on Giorgio-Synephrine 80 mcg/m, and amiodarone. CT chest abdomen pelvis again confirms gastric and small bowel distention/ileus. UO 1800 ml in 24 hours 06/21: Remains critically ill, intubated sedated, on 100 mcg/min neosynpehrine. HR better controlled. NG output 1500, UO >1.4L. Am labs pending. Ileostomy sample positive for C Diff on PO vanc IV Flagyl. 06/22: Remains intubated sedated. Urine output 3000 mL with Bumex. NGT [address] Geiger did colonoscopy which was normal. Ileoscopy showed pseudomembranous colitis. Currently on 200 mcg/min of neosynephrine. Afib with RVR HR in 140's 06/23: Remains intubated sedated, remains in atrial fibrillation with RVR. Still requiring high doses of Giorgio-Synephrine at 190 mcg/min. UO 2.5L. chest x- ray showed bilateral large effusions. KUB shows improving small bowel distention. WBC count is slightly improved 06/24: Unable to control HR. Repeat shock x3 today. remains in atrial fibrillation with RVR rates 160-170 intermittently. Remains on amiodarone but will discontinued due to elevation of liver enzymes AST 546 ALT 158. (GI notified). Start Cardizem infusion and also give Surjit 0.5 mg 1. Platelet count continues to drop from 67 to today 45. Hematology following will start of Argatroban today. Creatinine has slightly increased to 1.3 to will DC Bumex infusion 06/25: Patient remains intubated sedated critically ill. Heart rate controlled for the first time since atrial fibrillation started. Heart rate remains 80- 90. Urine output 1200 mL in 24 hours but BUN/creatinine increasing 44/1.7. I will hydrate with 50 mL/hr normal saline for 24 hours. Transaminitis increasing AST 1300 ALT 386. Ultrasound of the liver unremarkable GI following 06/26: PTT elevated due to Argatorban/Liver failure. Dr. Hurley has DCd argatroban. SMILEY pending. Pl count is 21. Currently in sinus rhythm on Cardizem infusion. Not on any pressors. Creatinine improved to 1.2. Urine output adequate. Becomes very tachypneic on attempted CPAP. Discussed with Dr. Geiger Will Start Trickle Tube Feeds 06/27: no improvements. off pathway. thrombocytopenia persists. unable to wean from mechanical ventilation. neuro exam poor. will likely need trach. 06/28: platelets worse today. SMILEY not resulted yet. failing SBT and mental status poor. poor prognosis. will need trach and LTAC placement. 06/29: Tmax 101. Currently 99.6. Tolerating trickle tube feeds. Continues to fail spontaneous breathing trials. 06/30: Lasted 1 hour spontaneous breathing trial this AM. 2.5 hours this afternoon. Currently afebrile. Hemoglobin remained stable. 07/01: lasted 4 hours on SBT, except 15 of pressure support, so not ready clinically for extubation, and even after only 4 hours, tired out and became hypoxic and tachypneic. more awake today and following commands. will likely need tracheostomy. 07/02: new fever today, but wbc normal. per ID, will culture and observe, continue flagyl/PO vanc. otherwise no changes. no improvements. 07/03: pseudomonas in sputum and urine. increase in cough and secretions. ID following and added cefepime. still weak and failing SBTs for hypoxia and tachypnea. needs tracheostomy. will need long-term rehab and likely LTAC. 07/04: Wakes up easily, follows commands. On 5 mg/hr versed. CXR pending. UO adequate. Resume SBT. Significant weight gain. approx 15 kg up. Give Bumex 2 mg IV x1 07/05: Patient is intubated sedated with 50 g per hour of fentanyl. Urine output 3 L in [address] on scheduled Bumex. Tolerating CPAP at 15/5. bring in Viibryd, which apparently patient had been on for long time. I have resumed it. 07/06: Tolerating CPAP 10/5 better today, Wakes up and following commands. Good UO with Bumex. Chest x-ray basilar opacities essentially unchanged. Increase IV Bumex to 1 mg every 12 07/07: Extubated yesterday tolerating well. Slightly tachypneic but maintain oxygen saturation and no subjective shortness of breath. Urine output remains excellent on Bumex, 2.9L in 24 hours 07/08: Lying on bed breathing comfortably urine output excellent with increased Bumex dose. 5.8 L in 24 hours. WBC count stable. Increase activity up to stretcher chair today 07/09: Tolerating by mouth diet. Eating atleast 50%. TPN reduced by half yesterday. UO remains excellent with diuresis. Attempt TPN wean off today. Breathing comfortably except intermittent tachypnea. 07/10: Appetite better, breathing more comfortably. Off TPN. UO remains excellent. Platelet count slightly dropped to 46 from 49. I will continue steroids at Solu-Medrol 20 mg IV every 12, taper only very slowly 07/11: Afebrile. Resting comfortably in bed. On nasal cannula. Reviewed vascular note does not want sacral decubitus debridement/ Subjective RECONSULT NOTE : 08/08: This is a patient well-known to the clearance center manager service. In brief this is a 67-year-old male with metastatic colon cancer status post colectomy with end ileostomy. He originally presented to the hospital with severe C. difficile ileitis and septic shock. He had a prolonged mechanical ventilation and ICU course. 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 Most recently has been on the floor and has had recurrent ileus. Over the last 3 days per nursing charting he is proximally 7 L positive as well as being 3 kg up from his weight a few days ago. His BNP is 245. He complains of worsening SOB and increasing oxygen requirement up to nonrebreather. On my evaluation this evening, he is tachypneic and dyspneic and respiratory distress on a nonrebreather. SPO2 89%. He denies chest pain, abdominal pain, nausea, vomiting. Per report, he did vomit a few times earlier today, and there is a high clinical suspicion by the hospitalist service that he had an aspiration event. He has an NG tube in place to suction. His most recent urine culture data suggests that his pseudomonas is now resistant to cefepime. For this reason infectious disease discontinued cefepime and started Zosyn today. Chest x-ray demonstrates bilateral patchy infiltrates either suggestive of volume overload or bilateral multifocal pneumonia. Limited review systems is otherwise negative unless stated above. For the remaining past medical history the patient, please see our clearance center manager consultation note from 06/18/17. SUBJ 08/09: Patient lying on the bed slightly tachypneic but respiratory distress subjectively improved. On high flow nasal cannula 80% FiO2 been just weaned to 60%. Chest x-ray shows interval improvement in bilateral infiltrates received 40 mg IV Lasix yesterday. WBC count is improved from 23.1 to 16.3. KUB shows nonspecific bowel gas pattern 08/10: Remains on high flow nasal cannula at 50% oxygen. But appears to be breathing comfortably. Urine output adequate with Lasix yesterday also. 3.9 L in 24 hours. IR unable to place PEG yesterday, Dr. Geiger will discuss with IR today 08/11: Patient is currently back on high flow NC, at 55% oxygen. CXR unchanged. K 2.8 getting replaced, IV Lasix 40 mg x1. Plan for PEG tube placement in the OR today by Dr. Watts. 08/12: Patient currently on normal partial nonrebreather with oxygen saturation 95-96%. Chest x-rays essentially unchanged I have ordered additional 40 mg Lasix today and were placed on scheduled Lasix. WBC count is trending up but patient is currently on steroids 08/13: patient CAM+ and confused this AM. o2 requirement continues to improve. hr in the 130s, afib, irregular. 08/14: very difficult to control afib RVR overnight. patient has history of refractory RVR, which during prior acute illnesses was not rate controlled despite medication and multiple cardioversion attempts. in the past, digoxin, electrolyte replacement, and diltiazem were the most effective treatments. he has had elevated LFTs in the past which were thought to be related to amiodarone. this morning, heart rate continues to be in the 170s. blood pressure is borderline hypotensive. yesterday diltiazem was increased to 90mg po q6h. dig level pending this AM. hypokalemic. 08/15: Acute respiratory decompensation with hypoxia. Placed on 100% nonrebreather with improvement in oxygen saturation of 100%. Tachypneic, but able to communicate. Chest x-ray remains unchanged. I will give additional Lasix total 40 mg now with potassium replacement. Keep NPO, re insert NGT (will d/w CRS) and get speech for swallow eval. in and out of A. fib currently sinus with PVCs 08/16: Slightly tachypneic, WBC count slightly increased to 21.6 today from 18.6. Intermittently confused, on my exam he was oriented to person and place. Anxious tremulous. Discussed with Dr. Tran, will DC Ping Hernandez. Dr. Espinoza has DC'd Zosyn today. Will re culture. CXR appears improved. 08/17: Improved oxygenation on 4L NC today, improving mentation. UA shows evidence of UTI with yeast. Change Han, started Diflucan. Zosyn DCd yesterday. labs are pending 08/18: WBC count improving 12.9 today, slight drop in hemoglobin noted to 7.5. Remains oriented to person and place, clinically improving. Diflucan started yesterday. Han catheter replaced 08/17 Objective Vital Signs Date Time Temp Pulse Resp B/P (MAP) Pulse Ox O2 Delivery O2 Flow Rate FiO2 08/18/17 04:00 77 08/18/17 04:00 97.0 9 106/56 (73) 100 08/18/17 03:40 Nasal Cannula 4.00 08/16/17 08:16 30 Result Diagram: 08/18/17 0530 08/18/17 0530 Imaging Last Impressions Chest X-Ray 07/10/17 0600 Signed Impressions: Service Date/Time: Monday, July 10, 2017 04:39 - CONCLUSION: No significant change with persistent bilateral pulmonary parenchymal opacity with lower lung zone predominance likely worsening pulmonary edema and bilateral pleural effusions. Luis Armando Michel MD Abdomen X-Ray 07/06/17 0000 Signed Impressions: Service Date/Time: Thursday, July 06, 2017 13:44 - CONCLUSION: 1. Gaseous distention of multiple bowel loops. This has slightly improved. 2. Left-sided nephroureteral stent in good position. Sarwat Suarez MD Liver Ultrasound 06/24/17 Signed Impressions: Service Date/Time: Saturday, June 24, 2017 16:38 - CONCLUSION: 1. Small volume ascites. 2. Small right effusion. Pierce Ospina Jr., MD Upper Extremity Ultrasound 06/23/17 Signed Impressions: Service Date/Time: June 20:03 - CONCLUSION: Noncompressibility right cephalic vein and left basilic vein consistent with venous thrombosis Trav Hsieh MD Lower Extremity Ultrasound 06/23/17 Signed Impressions: Service Date/Time: , June 23, 2017 20:16 - CONCLUSION: Normal examination. No evidence DVT Trav Hsieh MD Chest CT 06/20/17 Signed Impressions: Service Date/Time: Tuesday, June 20, 2017 07:42 - CONCLUSION: 1. Bilateral effusions and consolidative changes in both lung bases. Bao Lora MD Abdomen/Pelvis CT 06/20/17 Signed Impressions: Service Date/Time: Tuesday, June 20, 2017 07:39 - CONCLUSION: 1. Dilated stomach and multiple dilated loops of small bowel, likely ileus. 2. No definite gastric volvulus. 3. Fat containing right inguinal hernia which also contains small portion of the urinary bladder and minimal fluid. 4. Left-sided nephroureteral stent in good position. 5. Bibasilar consolidation and small pleural effusions. Sarwat Suarez MD Objective Remarks GENERAL: 67-year-old male lying on bed, in no respiratory distress currently on nasal cannula SKIN: Warm and dry. HEENT: Normocephalic. Atraumatic. Extraocular muscles intact. NECK: The neck is supple. Trachea is midline. CHEST: Bilateral coarse breath sounds, few basilar crackles. On NC CVS: Currently NSR, no murmurs ABDOMEN: Abdomen is soft. Ileostomy is functioning well. EXTREMITIES: No pedal edema or cyanosis. NEURO: Alert awake anxious oriented to person place, don't know the date. Moves all extremities but weak, following commands. Extremity tremors+ A/P Assessment and Plan Assessment: This is a 67-year-old male with colon cancer and recurrent pseudomonal infections who presents with recurrent respiratory distress, acute hypoxic respiratory failure. Now back in afib RVR which in the past has been very refractory. will aggressively replace electrolytes. Delirium persists, but improving. Critically ill now showing signs of improvement. Getting Diflucan for Diana UTI Active Problems: Acute hypoxemic respiratory failure-improving COPD with exacerbation Aspiration pneumonia Diana UTI Pulmonary Edema/Acute intravascular volume overload HCAP with Pseudomonas Agitated Delirium - improving Atrial fibrillation with intermittent rapid ventricular response C Diff ileitis UTI with Pseudomonas s/p treatment s/p Pseudomonas bacteremia s/p treatment s/p Partial resection of the left ureter with anastomosis and placement of double-J stent Recurrent ileus Acute protein calorie malnutrition- severe. Metastatic colon cancer s/p resection Plan: Respiratory status improving, good oxygen saturations on nasal cannula, chest x- ray 08/16 on my review of improving infiltrates Continue DuoNeb. EzPAP, [place], IS Regular basic diet. Cleared By speech Delirium improving, UA and culture UTI with diana. Diflucan started 08/17, Han replaced 08/17 Discontinued Zyprexa Reglan 08/17. Use when necessary Haldol and low dose Ativan. Continue Vibrrid Continue by mouth vancomycin. IV Zosyn and IV Flagyl discontinued per ID 08/16 Previous Pseudomonas bacteremia UTI and HCAP Scheduled Lasix 20 mg IV qday. TPN 20 ml per hour. IV solumedrol reduced to 40 q12, will change to 20 q12 today Continue Symbicort, Spiriva, EzPAP, acapella, DuoNeb's Relative contraindication of BiPAP being high aspiration risk, ileus, no absolute contraindication IR, GI unable to place PEG tube. D/W Dr. Pelayo re: ureteral stent removal- recommended postponing until more stable Resume Cardizem to 90 mg po q6h, and wean off Cardizem gtt Resume PO Digoxin Continue metoprolol 5mg iv q4h Stopped amio infusion due to previous liver enzyme elevation aggressively replace electrolytes, target mg > 2.0, k > 4.0 remain in icu. clinically slightly improved today. Lovenox for DVT prophylaxis, famotidine for GI prophylaxis PT/OT up to chair daily Level 3 Shiva Segovia MD Aug 18, 2017 08:01
[2017-08-18] MEDS: DILTIAZEM HCL 60 MG TAB PO SCH ×3 (08:27→17:47)
[2017-08-18] MEDS: methylPREDNISolone SOD SUCC 40 MG/1 ML VIAL IV PUSH SCH ×2 (08:28→20:07)
[2017-08-18] MEDS: FAMOTIDINE 20 MG TAB PO SCH ×2 (08:29→20:08)
[2017-08-18] MEDS: ENOXAPARIN SODIUM 40 MG/0.4 ML SYRINGE SQ SCH (08:29)
[2017-08-18] MEDS: DIGOXIN 0.125 MG TAB PO SCH (08:29)
[2017-08-18] MEDS: FUROSEMIDE 20 MG/2 ML VIAL IV PUSH SCH (08:30)
[2017-08-18] MEDS: MEGESTROL ACETATE SUSP 400 MG/10 ML CUP PO SCH (08:30)
[2017-08-18] MEDS: BUDESONIDE-FORMOTEROL 160/4.5 MCG INHALER INH SCH ×2 (08:31→21:00)
[2017-08-18] MEDS: VANCOMYCIN 500 MG VIAL (FOR ORAL USE ONLY) PO SCH ×4 (08:31→20:08)
[2017-08-18] MEDS: TIOTROPIUM BROMIDE 18 MCG INH INH SCH (08:32)
[2017-08-18] MEDS: RESP: ALBUTEROL 2.5 MG/IPRATROPIUM 0.5 MG NEB (SCH) NEB ×3 (09:24→19:41)
[2017-08-18] MEDS: FLUCONAZOLE 100 MG TAB PO SCH (10:40)
[2017-08-18] MEDS: oxyCODONE/ACETAMINOPHEN 5 MG/325 MG TAB PO PRN (10:40)
--- NOTE | 2017-08-18 12:36 | HHI.HCPN ---
Reason for visit a. To assist with evaluation and management of symptoms including: Dyspnea , confusion, dysphagia b. To assist medical decision maker(s) with: better understanding of current medical conditions; weighing benefits/burdens of medical treatment options; making medical treatment decisions. . Subjective/Interval History INTERVAL NOTE: The patient continues to improve, alert and oriented today. He has again been up in the chair, and he is eating better; drank 2 cans of ensure this morning. His only discomfort seems to be related to his decubitus.. White count is down to 12.9 today, improving. The chest x-ray shows stable infiltrates. . Family/friend interactions Discussion with at the bedside. She is happy that he is improving and is encouraged that he will be able to improve enough so he can go to Rehab and then eventually home. She knows the underlying malignancy may be a significant problem at some point in time. . Advance Directives Living Will: Never completed Health Care Surrogate: Never completed Durable Power of Breakfast Cook: Never completed Objective Vital Signs Date Time Temp Pulse Resp B/P (MAP) Pulse Ox O2 Delivery O2 Flow Rate FiO2 08/18/17 09:24 100 Nasal Cannula 2.00 08/18/17 08:00 99.1 98 28 111/60 (77) 100 08/18/17 07:00 98 Room Air 4.00 08/18/17 06:00 94 08/18/17 04:00 77 08/18/17 04:00 97.0 77 9 106/56 (73) 100 08/18/17 03:40 100 Nasal Cannula 4.00 08/18/17 02:00 80 08/18/17 00:00 98.8 81 12 118/57 (77) 100 08/18/17 00:00 81 08/17/17 22:00 95 08/17/17 20:00 111 08/17/17 20:00 98.6 111 27 117/80 (92) 100 08/17/17 19:00 95 Nasal Cannula 4.00 08/17/17 18:00 98 08/17/17 16:00 98.0 102 28 116/81 (93) 100 08/17/17 16:00 102 08/17/17 15:11 20 08/17/17 14:00 99 Intake & Output 08/18/17 08/18/17 07:00 19:00 Intake Total 240 ml Output Total 800 ml Balance -560 ml Intake Oral 240 ml Output Urine Total 800 ml Drainage Total 0 ml Physical Exam CONSTITUTIONAL/GENERAL: This is a weak, thin, alert patient, in no apparent distress. TUBES/LINES/DRAINS: nasal cannula oxygen SKIN: No jaundice, rashes. A wound VAC is present on the sacral wound. Ecchymoses on upper extremities. No wounds seen anteriorly. Skin temperature appropriate. Not diaphoretic. NECK: Trachea midline. Supple, nontender. No palpable thyroid enlargement or nodularity. CARDIOVASCULAR: Irregular without murmurs, gallops, or rubs. No JVD. Peripheral pulses symmetric. RESPIRATORY/CHEST: Symmetric, unlabored respirations. Clear to auscultation. Breath sounds equal bilaterally. No wheezes, rales, or rhonchi. GASTROINTESTINAL: Abdomen soft, non-tender, nondistended. No hepato-splenomegaly , or palpable masses. Ileostomy present. Bowel sounds present. MUSCULOSKELETAL: Extremities without clubbing, cyanosis, or edema. No joint tenderness or effusion noted. No calf tenderness. No mottling or clubbing. NEUROLOGICAL: Awake and alert, oriented. No obvious motor deficits, but he is weak globally. Moves all extremities. PSYCHIATRIC: No obvious anxiety or depression or evidence of psychosis Diagnostic Tests Laboratory Laboratory Tests Test 08/16/17 05:15 08/16/17 11:35 08/16/17 16:15 08/16/17 18:31 White Blood Count 21.6 TH/MM3 (4.0-11.0) Red Blood Count 2.70 MIL/MM3 (4.50-5.90) Hemoglobin 8.1 GM/DL (13.0-17.0) Hematocrit 24.8 % (39.0-51.0) Mean Corpuscular Volume 91.6 FL (80.0-100.0) Mean Corpuscular Hemoglobin 30.0 PG (27.0-34.0) Mean Corpuscular Hemoglobin Concent 32.8 % (32.0-36.0) Red Cell Distribution Width 20.6 % (11.6-17.2) Platelet Count 234 TH/MM3 (150-450) Mean Platelet Volume 9.7 FL (7.0-11.0) Neutrophils (%) (Auto) 93.2 % (16.0-70.0) Lymphocytes (%) (Auto) 1.7 % (9.0-44.0) Monocytes (%) (Auto) 4.0 % (0.0-8.0) Eosinophils (%) (Auto) 0.0 % (0.0-4.0) Basophils (%) (Auto) 1.1 % (0.0-2.0) Neutrophils # (Auto) 20.1 TH/MM3 (1.8-7.7) Lymphocytes # (Auto) 0.4 TH/MM3 (1.0-4.8) Monocytes # (Auto) 0.9 TH/MM3 (0-0.9) Eosinophils # (Auto) 0.0 TH/MM3 (0-0.4) Basophils # (Auto) 0.2 TH/MM3 (0-0.2) CBC Comment AUTO DIFF Differential Comment AUTO DIFF CONFIRMED Blood Urea Nitrogen 25 MG/DL (7-18) Creatinine 0.75 MG/DL (0.60-1.30) Random Glucose 114 MG/DL (74-106) Total Protein 4.8 GM/DL (6.4-8.2) Albumin 1.6 GM/DL (3.4-5.0) Calcium Level 7.2 MG/DL (8.5-10.1) Phosphorus Level 2.2 MG/DL (2.5-4.9) Magnesium Level 2.2 MG/DL (1.5-2.5) Alkaline Phosphatase 149 U/L (45-117) Aspartate Amino Transf (AST/SGOT) 19 U/L (15-37) Alanine Aminotransferase (ALT/SGPT) 23 U/L (12-78) Total Bilirubin 1.2 MG/DL (0.2-1.0) Sodium Level 143 MEQ/L (136-145) Potassium Level 3.2 MEQ/L (3.5-5.1) 4.5 MEQ/L (3.5-5.1) Chloride Level 109 MEQ/L (98-107) Carbon Dioxide Level 25.2 MEQ/L (21.0-32.0) Anion Gap 9 MEQ/L (5-15) Estimat Glomerular Filtration Rate 104 ML/MIN (>89) Protein Corrected Calcium 8.5 MG/DL (8.5-10.1) B-Type Natriuretic Peptide 231 PG/ML (0-100) Vitamin B12 Level 1365 PG/ML (193-986) Ammonia LESS THAN 10 MCMOL/L Urine Color YELLOW (YELLW/STRAW) Urine Turbidity CLOUDY (CLEAR) Urine pH 8.0 (5.0-8.5) Urine Specific [place] 1.015 (1.002-1.035) Urine Protein TRACE mg/dL (NEG-TRACE) Urine Glucose (UA) NEG mg/dL (NEG) Urine Ketones NEG mg/dL (NEG) Urine Occult Blood MOD (NEG) Urine Nitrite NEG (NEG) Urine Bilirubin NEG (NEG) Urine Urobilinogen LESS THAN 2.0 MG/DL (LESS Urine Leukocyte Esterase LARGE (NEG) Urine RBC /hpf (0-3) Urine WBC 117 /hpf (0-5) Urine Bacteria FEW /hpf (NONE) Urine Mucus FEW /lpf (OCC) Urine Yeast with Hyphae MOD (NONE) Urine Yeast (Budding) MANY (NONE) Microscopic Urinalysis Comment CATH-CULTURE IND Test 08/17/17 09:55 08/18/17 05:30 White Blood Count 21.1 TH/MM3 (4.0-11.0) 12.9 TH/MM3 (4.0-11.0) Red Blood Count 2.85 MIL/MM3 (4.50-5.90) 2.50 MIL/MM3 (4.50-5.90) Hemoglobin 8.4 GM/DL (13.0-17.0) 7.5 GM/DL (13.0-17.0) Hematocrit 26.4 % (39.0-51.0) 23.3 % (39.0-51.0) Mean Corpuscular Volume 92.5 FL (80.0-100.0) 93.3 FL (80.0-100.0) Mean Corpuscular Hemoglobin 29.5 PG (27.0-34.0) 30.1 PG (27.0-34.0) Mean Corpuscular Hemoglobin Concent 31.9 % (32.0-36.0) 32.3 % (32.0-36.0) Red Cell Distribution Width 21.3 % (11.6-17.2) 21.1 % (11.6-17.2) Platelet Count 232 TH/MM3 (150-450) 197 TH/MM3 (150-450) Mean Platelet Volume 9.3 FL (7.0-11.0) 9.6 FL (7.0-11.0) Neutrophils (%) (Auto) 96.1 % (16.0-70.0) 96.5 % (16.0-70.0) Lymphocytes (%) (Auto) 1.2 % (9.0-44.0) 1.3 % (9.0-44.0) Monocytes (%) (Auto) 2.7 % (0.0-8.0) 2.1 % (0.0-8.0) Eosinophils (%) (Auto) 0.0 % (0.0-4.0) 0.0 % (0.0-4.0) Basophils (%) (Auto) 0.0 % (0.0-2.0) 0.1 % (0.0-2.0) Neutrophils # (Auto) 20.2 TH/MM3 (1.8-7.7) 12.4 TH/MM3 (1.8-7.7) Lymphocytes # (Auto) 0.3 TH/MM3 (1.0-4.8) 0.2 TH/MM3 (1.0-4.8) Monocytes # (Auto) 0.6 TH/MM3 (0-0.9) 0.3 TH/MM3 (0-0.9) Eosinophils # (Auto) 0.0 TH/MM3 (0-0.4) 0.0 TH/MM3 (0-0.4) Basophils # (Auto) 0.0 TH/MM3 (0-0.2) 0.0 TH/MM3 (0-0.2) CBC Comment AUTO DIFF DIFF FINAL Differential Total Cells Counted 100 Neutrophils % (Manual) 96 % (16-70) Lymphocytes % 1 % (9-44) Monocytes % 3 % (0-8) Neutrophils # (Manual) 20.3 TH/MM3 (1.8-7.7) Differential Comment FINAL DIFF MANUAL Hypersegmented Polys 1+ (NORMAL) Platelet Estimate NORMAL (NORMAL) Platelet Morphology Comment NORMAL (NORMAL) Blood Urea Nitrogen 24 MG/DL (7-18) 28 MG/DL (7-18) Creatinine 0.70 MG/DL (0.60-1.30) 0.57 MG/DL (0.60-1.30) Random Glucose 141 MG/DL (74-106) 182 MG/DL (74-106) Total Protein 5.2 GM/DL (6.4-8.2) 5.0 GM/DL (6.4-8.2) Albumin 1.9 GM/DL (3.4-5.0) 1.7 GM/DL (3.4-5.0) Calcium Level 7.7 MG/DL (8.5-10.1) 7.6 MG/DL (8.5-10.1) Magnesium Level 2.3 MG/DL (1.5-2.5) 2.4 MG/DL (1.5-2.5) Alkaline Phosphatase 202 U/L (45-117) 207 U/L (45-117) Aspartate Amino Transf (AST/SGOT) 19 U/L (15-37) 14 U/L (15-37) Alanine Aminotransferase (ALT/SGPT) 29 U/L (12-78) 25 U/L (12-78) Total Bilirubin 1.2 MG/DL (0.2-1.0) 0.8 MG/DL (0.2-1.0) Sodium Level 146 MEQ/L (136-145) 145 MEQ/L (136-145) Potassium Level 3.7 MEQ/L (3.5-5.1) 4.1 MEQ/L (3.5-5.1) Chloride Level 112 MEQ/L (98-107) 113 MEQ/L (98-107) Carbon Dioxide Level 26.2 MEQ/L (21.0-32.0) 26.8 MEQ/L (21.0-32.0) Anion Gap 8 MEQ/L (5-15) 5 MEQ/L (5-15) Estimat Glomerular Filtration Rate 112 ML/MIN (>89) 142 ML/MIN (>89) Result Diagram: 08/18/1730 08/18/17 0530 Microbiology Microbiology Date/Time Source Procedure Growth Status 08/16/17 16:15 Urine Catheterized Urine Urine Culture - Final Alisha Albicans Complete Imaging Last Impressions Chest X-Ray 08/18/17599 Signed Impressions: Service Date/Time: August 02:38 - CONCLUSION: Stable patchy partially consolidative bilateral lower lung infiltrates. Pierce Groves MD Abdomen X-Ray 08/09/17599 Signed Impressions: Service Date/Time: Wednesday, August 09, 2017 03:49 - CONCLUSION: 1. Nonspecific bowel gas pattern without change. 2. Left ureteral stent catheter remains in place. Norman Mitchell MD Gastrostomy Tube Placement 08/09/17 0000 Signed Impressions: Service Date/Time: Wednesday, August 09, 2017 17:54 - CONCLUSION: Unsuccessful gastrostomy tube placement secondary to overlying bowel. CT scan will be required for placement Eddie Saucedo MD ADDENDUM: Review of the CT scan demonstrates the anatomy would require placement between the ribs which would be suboptimal. This was discussed with Dr. Luca Saucedo MD Abdomen/Pelvis CT 08/06/17 0000 Signed Impressions: Service Date/Time: Monday, August 07, 2017 02:34 - CONCLUSION: 1. Diffusely dilated small bowel extending to the ileostomy. There is a small volume of free fluid in the abdomen. 2. Abnormal airspace consolidation at the lung bases bilaterally with bilateral pleural effusions. 3. There is a open sacral decubitus wound extending to the adjacent coccyx and sacrum. Luca Torres MD Cholangiopancreatography MRI 07/15/17 0000 Signed Impressions: Service Date/Time: Saturday, July 15, 2017 15:02 - CONCLUSION: 1. Ascites with small bilateral pleural effusions. 2. Small contracted gallbladder without definite stones 3. No definite common duct stone. 4. Pancreas obscured by motion. Alfredo Lora MD FACR Liver Ultrasound 07/14/17 0000 Signed Impressions: Service Date/Time: July 16:45 - CONCLUSION: 1. Small volume ascites. 2. Bilateral pleural effusions. 3. Sludge within the gallbladder with a top normal thickness of the gallbladder wall. No sonographic evidence to suggest acute cholecystitis. Pierce Ospina Jr., MD Upper Extremity Ultrasound 06/23/17 0000 Signed Impressions: Service Date/Time: June 20:03 - CONCLUSION: Noncompressibility right cephalic vein and left basilic vein consistent with venous thrombosis Trav Hsieh MD Lower Extremity Ultrasound 06/23/17 0000 Signed Impressions: Service Date/Time: June 20:16 - CONCLUSION: Normal examination. No evidence DVT Trav Hsieh MD Chest CT 06/20/17 0000 Signed Impressions: Service Date/Time: Tuesday, June 20, 2017 07:42 - CONCLUSION: 1. Bilateral effusions and consolidative changes in both lung bases. Bao Lora MD Procedures * During previous hospitalization, rectosigmoidectomy with wedge resection of liver mass 05/26/17 * During this hospitalization... * INTUBATION 06/18/17 * EXTUBATION 07/07/17 * Excision of sacral decubitus, wound VAC placement 07/17/17 Assessment and Plan Disease Oriented Problem List: (1) recurrent respiratory failure, pneumonia (2) recurrent/persistent pneumonia, probable aspiration (3) recurrent/persistent pneumonia, probable aspiration (4) recurrent UTI with resistant Pseudomonas (5) altered mental status/delirium, likely multifactorial (6) recurrent rapid atrial fib (7) septic shock requiring intubation X 17 days (8) severe malnutrition/deconditioning (9) rectal cancer November 2016, s/p radiation/chemo and surgery (10) history of anxiety (11) history of COPD (12) remote history of pancreatitis (13) BPH Symptom Scale: (1) pain 0-10 Scale: Unable to quantify (2) dyspnea 0-10 Scale: Unable to quantify (3) confusion 0-10 Scale: Unable to quantify (4) anxiety 0-10 Scale: Unable to quantify (long history of anxiety) Pertinent Non-Medical Issues Psychosocial: for 51 years, 3 daughters, one daughter . 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 Spiritual: The patient has a Rastafarian background, but has been on affiliated with the episcopal for many years, and the does not believe he would want a visit from a plant scientist or from hospital chaplains. Legal: The patient lacks capacity for decision-making at the time of the initial consultation, and it is uncertain whether he will regain that capacity. His is the decision making proxy. Ethical issues impacting care: None . Important Contacts Spouse: Quynh Armendariz [phone] Daughter: Alison Matthews [phone] . Prognosis The patient's debility and deconditioning has become quite profound, and he again is suffering from hypoxic respiratory failure. In addition, he has underlying recent metastatic rectal adenocarcinoma (although the post surgery scans did not indicate any obvious metastatic disease). Overall, his prognosis for complete recovery with return to work would seem to be quite poor. . Code Status: Full Code Plan * FULL CODE * DECISION-MAKING: The patient lacks capacity for decision-making at the time of the initial consultation, but he is improving and may regain that capacity. His is the decision making proxy. * GOALS: The overall goal is to get the patient back home, perhaps after a stay in rehab, even though he may remain quite weak and may even be nonambulatory. The family understands that the overall prognosis is not good with the underlying malignancy, but they are fairly optimistic now in the short- term. * The family is still grieving significantly since the withdrawal of life support and in [place] of the oldest daughter in April 2017. I have offered to connect the and 2 daughters with bereavement/grief counseling here, and they will consider that; Tricia Ospina LCSW is assisting here. * SYMPTOMS: The patient has denied pain except in his sacral decubitus in recent days. His delirium seems to have resolved, and his dyspnea has improved. * Palliative Care will continue to follow this patient during this hospitalization, to be another supportive and consistent presence for the patient, , and daughters during this very difficult hospitalization and its multiple complications and setbacks. . Time Spent Total Floor Time (mins): 39 Face to Face Time (mins): 26 >50% Counseling/Coord of Care: Yes Attestation To help prompt me to consider important information that might be impacting today's encounter and assessment, information from prior notes written by myself or my colleagues may have been "brought forward" into today's note. My signature on this note, however, is an attestation that I personally performed the exam, history, and/or decision-making noted today, and, unless otherwise indicated, the interactions with patient, family, and staff as well as the review of records all occurred today. I also attest that the listed assessment and stated plan reflect my best clinical judgment today based on the combination of historical information, prior notes, and today's exam/ interactions. When time spent is documented, it refers only to time spent today by the signer, or if indicated, combined time spent today by collaborating physician/nurse practitioner. Sasha Hyde MD Aug 18, 2017 12:36
--- NOTE | 2017-08-18 17:02 | HHI.PR ---
Subjective Remarks Pt not confused. Awake alert and oriented. Looks better. WBC decreased. Objective Vital Signs Date Time Temp Pulse Resp B/P (MAP) Pulse Ox O2 Delivery O2 Flow Rate FiO2 08/18/17 16:20 96 21 08/18/17 09:24 100 Nasal Cannula 2.00 08/18/17 08:00 99.1 98 28 111/60 (77) 100 08/18/17 07:00 98 Room Air 4.00 08/18/17 06:00 94 08/18/17 04:00 77 08/18/17 04:00 97.0 77 9 106/56 (73) 100 08/18/17 03:40 100 Nasal Cannula 4.00 08/18/17 02:00 80 08/18/17 00:00 98.8 81 12 118/57 (77) 100 08/18/17 00:00 81 08/17/17 22:00 95 08/17/17 20:00 111 08/17/17 20:00 98.6 111 27 117/80 (92) 100 08/17/17 19:00 95 Nasal Cannula 4.00 08/17/17 18:00 98 I/O 08/17/17 08/17/17 08/17/17 08/18/17 08/18/17 08/18/17 07:00 15:00 23:00 07:00 15:00 23:00 Intake Total 545 ml 115 ml 600 ml 240 ml Output Total 1750 ml 1900 ml 800 ml Balance -1205 ml 115 ml -1300 ml -560 ml Intake Oral 420 ml 600 ml 240 ml IV Total 125 ml 115 ml Output Urine Total 1400 ml 1800 ml 800 ml Stool Total 350 ml 100 ml Drainage Total 0 ml 0 ml Result Diagram: 08/18/1730 08/18/1730 Objective Remarks VS-S Gen:.Looks better. Says he's eating better Abd: Soft,flat,Ileostomy functioning. Large stool and gas . Assessment and Plan Assessment and Plan Decubitus Poor nutrition. Severe deconditioning C Diff negative. No diarrhea. Alisha UTI Needs aggressive PT and Nutrition to fully heal decubitus and recover Continue PO vancomycin Should have PT everyday including weekends. Needs position changes for Pulmonary toilet Continue Lasix Passed swallowing eval. D/W Dr Segovia Alisha UTI Luca Geiger MD Aug 18, 2017 17:02
[2017-08-18] MEDS: CLINIMIX E 4.25/5 1000 mL- </= 42 mls/hr IV SCH ×3 (20:06)
[2017-08-18] MEDS: TAMSULOSIN HCL 0.4 MG CAP PO SCH (20:07)
[2017-08-18] MEDS: MELATONIN 5 MG TAB PO SCH (20:07)
[2017-08-18] MEDS: VIIBRYD 40 MG PO SCH (21:00)
[2017-08-19] VITALS (13 sets, daily range): BP systolic 97–132; BP diastolic 64–94; PULSE 94–114; RESP 18–38; TEMP 97.6–98.7; O2SAT 90–99
[2017-08-19] MEDS: RESP: ALBUTEROL 2.5 MG/IPRATROPIUM 0.5 MG NEB (SCH) NEB ×2 (04:19→17:58)
[2017-08-19] MEDS: DILTIAZEM HCL 60 MG TAB PO SCH ×4 (04:56→17:59)
--- NOTE | 2017-08-19 07:02 | HHI.CCPN ---
Subjective Remarks/Hospital Course The patient is a 67-year-old male with past medical history of hypertension, metastatic colon cancer, tobacco abuse, who, about 3 weeks ago underwent low anterior resection with low colorectal anastomosis, diverting ileostomy, and resection of a segment of the left ureter with ureteral anastomosis and double- J stent placement. He presented yesterday with 5 day history of abdominal discomfort and increasing weakness. No history of high output from ileostomy. He was admitted to the colorectal surgery for dehydration and probable UTI. He was placed on ciprofloxacin and IV hydration. According to Dr. Geiger's note it was difficult dissection/resection colon mass because of the pelvic sidewall adherence and the adherence to the left ureter. A portion of ureter was resected due to possibility of tumor infiltration, and Dr. Augustine Pelayo re- anastomosed the ureter and placed left-sided double-J stent. Also 1 cm hepatic metastasis in his liver that was excised. Hospitalist consultation was requested for medical management and evaluation of tachycardia today. He was seen by Dr. Jay and was placed on infusion of Cardizem for heart rate 140s. Patient became hypotensive with systolic blood pressure early 90s. Lab work showed WBC 14.5 with 44% bands, creat increase from 1.2 to 1.4 and severely increased lactate at 8 from admission lactate of 2.6. CT of the abdomen pelvis done yesterday showed probable small bowel ileus. I evaluated the patient in the ICU. He is tachycardic in 140s, hypotensive and systolic blood pressure in mid 80s. Clinically appears very dehydrated, an NG tube was placed with approximately 3 L of some coffee-ground output. ABG shows a base excess of -10 and bicarbonate 12. I have ordered 4 liter normal saline boluses start 1 amp of bicarbonate, discontinued the LR infusion, and started bicarb gtt. Discontinue ciprofloxacin, started Zosyn every 6 hours, vancomycin 1 g 1. His elevated lactic acid and bandemia most likely secondary to severe sepsis, ileus, and severe dehydration. Serial lactate is ordered SUBJ 06/19: Lactic acid remains elevated at 6.6 despite getting 9 L of crystalloid boluses in last 24 hours. Tachycardia has improved heart rate in 110s. Remains on vasopressin at 0.04 units/min. Urine output almost 1200 mL overnight, OGT initial output was almost 3 L when placed yesterday a.m. Overnight had 550 mL of greenish brown fluid output. EGD pending today rule out gastric ischemia per Dr. Romero. Apparently Flex sig was negative post op in Dr. Geiger's office 06/20: Developed A. fib with RVR. Heart rate 200. Hemodynamically unstable, synchronized cardioversion attempted by Dr. Morales 100 200 J. Given 3 g mag sulfate and 80 mEq KCl 1, 0.5 digoxin 1 and started on amiodarone and Giorgio- Synephrine. Intubated due to hemodynamic instability. Currently remains sedated. Currently on Giorgio-Synephrine 80 mcg/m, and amiodarone. CT chest abdomen pelvis again confirms gastric and small bowel distention/ileus. UO 1800 ml in 24 hours 06/21: Remains critically ill, intubated sedated, on 100 mcg/min neosynpehrine. HR better controlled. NG output 1500, UO >1.4L. Am labs pending. Ileostomy sample positive for C Diff on PO vanc IV Flagyl. 06/22: Remains intubated sedated. Urine output 3000 mL with Bumex. NGT [address] Geiger did colonoscopy which was normal. Ileoscopy showed pseudomembranous colitis. Currently on 200 mcg/min of neosynephrine. Afib with RVR HR in 140's 06/23: Remains intubated sedated, remains in atrial fibrillation with RVR. Still requiring high doses of Giorgio-Synephrine at 190 mcg/min. UO 2.5L. chest x- ray showed bilateral large effusions. KUB shows improving small bowel distention. WBC count is slightly improved 06/24: Unable to control HR. Repeat shock x3 today. remains in atrial fibrillation with RVR rates 160-170 intermittently. Remains on amiodarone but will discontinued due to elevation of liver enzymes AST 546 ALT 158. (GI notified). Start Cardizem infusion and also give Surjit 0.5 mg 1. Platelet count continues to drop from 67 to today 45. Hematology following will start of Argatroban today. Creatinine has slightly increased to 1.3 to will DC Bumex infusion 06/25: Patient remains intubated sedated critically ill. Heart rate controlled for the first time since atrial fibrillation started. Heart rate remains 80- 90. Urine output 1200 mL in 24 hours but BUN/creatinine increasing 44/1.7. I will hydrate with 50 mL/hr normal saline for 24 hours. Transaminitis increasing AST 1300 ALT 386. Ultrasound of the liver unremarkable GI following 06/26: PTT elevated due to Argatorban/Liver failure. Dr. Hurley has DCd argatroban. SMILEY pending. Pl count is 21. Currently in sinus rhythm on Cardizem infusion. Not on any pressors. Creatinine improved to 1.2. Urine output adequate. Becomes very tachypneic on attempted CPAP. Discussed with Dr. Geiger Will Start Trickle Tube Feeds 06/27: no improvements. off pathway. thrombocytopenia persists. unable to wean from mechanical ventilation. neuro exam poor. will likely need trach. 06/28: platelets worse today. SMILEY not resulted yet. failing SBT and mental status poor. poor prognosis. will need trach and LTAC placement. 06/29: Tmax 101. Currently 99.6. Tolerating trickle tube feeds. Continues to fail spontaneous breathing trials. 06/30: Lasted 1 hour spontaneous breathing trial this AM. 2.5 hours this afternoon. Currently afebrile. Hemoglobin remained stable. 07/01: lasted 4 hours on SBT, except 15 of pressure support, so not ready clinically for extubation, and even after only 4 hours, tired out and became hypoxic and tachypneic. more awake today and following commands. will likely need tracheostomy. 07/02: new fever today, but wbc normal. per ID, will culture and observe, continue flagyl/PO vanc. otherwise no changes. no improvements. 07/03: pseudomonas in sputum and urine. increase in cough and secretions. ID following and added cefepime. still weak and failing SBTs for hypoxia and tachypnea. needs tracheostomy. will need long-term rehab and likely LTAC. 07/04: Wakes up easily, follows commands. On 5 mg/hr versed. CXR pending. UO adequate. Resume SBT. Significant weight gain. approx 15 kg up. Give Bumex 2 mg IV x1 07/05: Patient is intubated sedated with 50 g per hour of fentanyl. Urine output 3 L in [address] on scheduled Bumex. Tolerating CPAP at 15/5. bring in Viibryd, which apparently patient had been on for long time. I have resumed it. 07/06: Tolerating CPAP 10/5 better today, Wakes up and following commands. Good UO with Bumex. Chest x-ray basilar opacities essentially unchanged. Increase IV Bumex to 1 mg every 12 07/07: Extubated yesterday tolerating well. Slightly tachypneic but maintain oxygen saturation and no subjective shortness of breath. Urine output remains excellent on Bumex, 2.9L in 24 hours 07/08: Lying on bed breathing comfortably urine output excellent with increased Bumex dose. 5.8 L in 24 hours. WBC count stable. Increase activity up to stretcher chair today 07/09: Tolerating by mouth diet. Eating atleast 50%. TPN reduced by half yesterday. UO remains excellent with diuresis. Attempt TPN wean off today. Breathing comfortably except intermittent tachypnea. 07/10: Appetite better, breathing more comfortably. Off TPN. UO remains excellent. Platelet count slightly dropped to 46 from 49. I will continue steroids at Solu-Medrol 20 mg IV every 12, taper only very slowly 07/11: Afebrile. Resting comfortably in bed. On nasal cannula. 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 In brief this is a 67-year-old male with metastatic colon cancer status post colectomy with end ileostomy. He originally presented to the hospital with severe C. difficile ileitis and septic shock. He had a prolonged mechanical ventilation and ICU course. 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 Most recently has been on the floor and has had recurrent ileus. Over the last 3 days per nursing charting he is proximally 7 L positive as well as being 3 kg up from his weight a few days ago. His BNP is 245. He complains of worsening SOB and increasing oxygen requirement up to nonrebreather. On my evaluation this evening, he is tachypneic and dyspneic and respiratory distress on a nonrebreather. SPO2 89%. He denies chest pain, abdominal pain, nausea, vomiting. Per report, he did vomit a few times earlier today, and there is a high clinical suspicion by the hospitalist service that he had an aspiration event. He has an NG tube in place to suction. His most recent urine culture data suggests that his pseudomonas is now resistant to cefepime. For this reason infectious disease discontinued cefepime and started Zosyn today. Chest x-ray demonstrates bilateral patchy infiltrates either suggestive of volume overload or bilateral multifocal pneumonia. Limited review systems is otherwise negative unless stated above. For the remaining past medical history the patient, please see our landscape horticulture instructor consultation note from 06/18/17. SUBJ 08/09: Patient lying on the bed slightly tachypneic but respiratory distress subjectively improved. On high flow nasal cannula 80% FiO2 been just weaned to 60%. Chest x-ray shows interval improvement in bilateral infiltrates received 40 mg IV Lasix yesterday. WBC count is improved from 23.1 to 16.3. KUB shows nonspecific bowel gas pattern 08/10: Remains on high flow nasal cannula at 50% oxygen. But appears to be breathing comfortably. Urine output adequate with Lasix yesterday also. 3.9 L in 24 hours. IR unable to place PEG yesterday, Dr. Geiger will discuss with IR today 08/11: Patient is currently back on high flow NC, at 55% oxygen. CXR unchanged. K 2.8 getting replaced, IV Lasix 40 mg x1. Plan for PEG tube placement in the OR today by Dr. Watts. 08/12: Patient currently on normal partial nonrebreather with oxygen saturation 95-96%. Chest x-rays essentially unchanged I have ordered additional 40 mg Lasix today and were placed on scheduled Lasix. WBC count is trending up but patient is currently on steroids 08/13: patient CAM+ and confused this AM. o2 requirement continues to improve. hr in the 130s, afib, irregular. 08/14: very difficult to control afib RVR overnight. patient has history of refractory RVR, which during prior acute illnesses was not rate controlled despite medication and multiple cardioversion attempts. in the past, digoxin, electrolyte replacement, and diltiazem were the most effective treatments. he has had elevated LFTs in the past which were thought to be related to amiodarone. this morning, heart rate continues to be in the 170s. blood pressure is borderline hypotensive. yesterday diltiazem was increased to 90mg po q6h. dig level pending this AM. hypokalemic. 08/15: Acute respiratory decompensation with hypoxia. Placed on 100% nonrebreather with improvement in oxygen saturation of 100%. Tachypneic, but able to communicate. Chest x-ray remains unchanged. I will give additional Lasix total 40 mg now with potassium replacement. Keep NPO, re insert NGT (will d/w CRS) and get speech for swallow eval. in and out of A. fib currently sinus with PVCs 08/16: Slightly tachypneic, WBC count slightly increased to 21.6 today from 18.6. Intermittently confused, on my exam he was oriented to person and place. Anxious tremulous. Discussed with Dr. Tran, will DC Ping Hernandez. Dr. Espinoza has DC'd Zosyn today. Will re culture. CXR appears improved. 08/17: Improved oxygenation on 4L NC today, improving mentation. UA shows evidence of UTI with yeast. Change Han, started Diflucan. Zosyn DCd yesterday. labs are pending 08/18: WBC count improving 12.9 today, slight drop in hemoglobin noted to 7.5. Remains oriented to person and place, clinically improving. Diflucan started yesterday. Han catheter replaced 08/17 08/19: Better oriented, appears calm, on room air. In sinus rhythm, tachycardic. Urine output adequate. I will reduce Solu- Medrol to 20 mg every 12 Objective Vital Signs Date Time Temp Pulse Resp B/P (MAP) Pulse Ox O2 Delivery O2 Flow Rate FiO2 08/19/17 06:00 114 08/19/17 04:00 98.7 18 132/68 (89) 90 08/18/17 20:00 Room Air 4.00 08/18/17 19:41 21 Intake and Output 08/19/17 08/19/17 08/20/17 08:00 16:00 00:00 Output Total 1100 ml Balance -1100 ml Result Diagram: 08/18/17 0530 08/18/17 0530 Other Results Microbiology Date/Time Source Procedure Growth Status 08/16/17 16:15 Urine Catheterized Urine Urine Culture - Final Diana Albicans Complete Imaging Last Impressions Chest X-Ray 07/10/17 0600 Signed Impressions: Service Date/Time: Monday, July 10, 2017 04:39 - CONCLUSION: No significant change with persistent bilateral pulmonary parenchymal opacity with lower lung zone predominance likely worsening pulmonary edema and bilateral pleural effusions. Luis Armando Michel MD Abdomen X-Ray 07/06/17 Signed Impressions: Service Date/Time: Thursday, July 06, 2017 13:44 - CONCLUSION: 1. Gaseous distention of multiple bowel loops. This has slightly improved. 2. Left-sided nephroureteral stent in good position. Sarwat Suarez MD Liver Ultrasound 06/24/17 Signed Impressions: Service Date/Time: Saturday, June 24, 2017 16:38 - CONCLUSION: 1. Small volume ascites. 2. Small right effusion. Pierce Ospina Jr., MD Upper Extremity Ultrasound 06/23/17 Signed Impressions: Service Date/Time: June 20:03 - CONCLUSION: Noncompressibility right cephalic vein and left basilic vein consistent with venous thrombosis Trav Hsieh MD Lower Extremity Ultrasound 06/23/17 Signed Impressions: Service Date/Time: June 20:16 - CONCLUSION: Normal examination. No evidence DVT Trav Hsieh MD Chest CT 06/20/17 Signed Impressions: Service Date/Time: Tuesday, June 20, 2017 07:42 - CONCLUSION: 1. Bilateral effusions and consolidative changes in both lung bases. Bao Lora MD Abdomen/Pelvis CT 06/20/17 Signed Impressions: Service Date/Time: Tuesday, June 20, 2017 07:39 - CONCLUSION: 1. Dilated stomach and multiple dilated loops of small bowel, likely ileus. 2. No definite gastric volvulus. 3. Fat containing right inguinal hernia which also contains small portion of the urinary bladder and minimal fluid. 4. Left-sided nephroureteral stent in good position. 5. Bibasilar consolidation and small pleural effusions. Sarwat Suarez MD Objective Remarks GENERAL: 67-year-old male lying on bed, in no respiratory distress currently on RA SKIN: Warm and dry. HEENT: Normocephalic. Atraumatic. Extraocular muscles intact. NECK: The neck is supple. Trachea is midline. CHEST: Bilateral coarse breath sounds, few basilar crackles. On RA CVS: Currently sinus rhythm, tachycardic, no murmurs ABDOMEN: Abdomen is soft. Ileostomy is functioning well, good output EXTREMITIES: No pedal edema or cyanosis. NEURO: Alert awake anxious oriented to person place. Moves all extremities but weak, following commands. Hand tremors improving Urinary Catheter: Yes Assessment to: Continue Han insert reason: Obstruction/Retention Vascular Central Line Catheter: Yes Assessment to: Continue Line: PICC A/P Assessment and Plan Assessment: This is a 67-year-old male with colon cancer and recurrent pseudomonal infections who presents with recurrent respiratory distress, acute hypoxic respiratory failure. Now back in afib RVR which in the past has been very refractory. will aggressively replace electrolytes. Delirium persists, but improving. Critically ill now showing signs of improvement. Getting Diflucan for Diana UTI Active Problems: Acute hypoxemic respiratory failure-resolved COPD with exacerbation Aspiration pneumonia Diana UTI Pulmonary Edema/Acute intravascular volume overload HCAP with Pseudomonas Agitated Delirium - improving Atrial fibrillation with intermittent rapid ventricular response, now in sinus tach C Diff ileitis UTI with Pseudomonas s/p treatment s/p Pseudomonas bacteremia s/p treatment s/p Partial resection of the left ureter with anastomosis and placement of double-J stent Recurrent ileus Acute protein calorie malnutrition- severe. Metastatic colon cancer s/p resection Plan: Respiratory status improving, acceptable oxygen saturations on RA today, chest x -ray 08/16 on my review of improving infiltrates Delirium improving, UA and culture UTI with diana. Diflucan started 08/17, Han replaced 08/17 Discontinued Zyprexa Reglan 08/17. Use when necessary Haldol and low dose Ativan. Continue Vibrrid Continue by mouth vancomycin, continue Diflucan for Diana UTI. (IV Zosyn and IV Flagyl discontinued per ID 08/16) Previous Pseudomonas bacteremia UTI and HCAP Scheduled Lasix 20 mg IV qday. IV solumedrol reduced to 40 q12, will change to 20 q12 today Continue Symbicort, Spiriva, EzPAP, acapella, DuoNeb's Relative contraindication of BiPAP being high aspiration risk, ileus, no absolute contraindication IR, GI unable to place PEG tube. D/W Dr. Pelayo re: ureteral stent removal- recommended postponing until more stable Cardizem to 90 mg po q6h PO Digoxin. Metoprolol 5mg iv q4h PRN for HR control Stopped amio infusion due to previous liver enzyme elevation Aggressively replace electrolytes, target mg > 2.0, k > 4.0 Lovenox for DVT prophylaxis, famotidine for GI prophylaxis PT/OT up to chair daily Regular basic diet. TPN 20 ml per hour. Level 2 Continue in icu. clinically slightly improved today. Shiva Segovia MD Aug 19, 2017 07:02
[2017-08-19 07:37] LABS: ALT (GPT) 28 U/L (12-78); ANION GAP 8 MEQ/L (5-15); AST (GOT) 14 U/L (15-37); BICARBONATE 24.4 MEQ/L (21.0-32.0); BLOOD UREA NITROGEN 22 MG/DL (7-18); CHLORIDE 107 MEQ/L (98-107); GLOMERULAR FILTRATION RATE 148 ML/MIN (>89); MAGNESIUM 2.2 MG/DL (1.5-2.5); POTASSIUM 4.2 MEQ/L (3.5-5.1); SODIUM (NA) 139 MEQ/L (136-145)
[2017-08-19 07:40] LABS: AUTOMATED NEUTROPHIL # 15.4 TH/MM3 (1.8-7.7); BASOPHIL % 0.2 % (0.0-2.0); EOSINOPHIL % 0.1 % (0.0-4.0); HEMATOCRIT 24.3 % (39.0-51.0); LYMPH % 1.7 % (9.0-44.0); LYMPHOCYTE # 0.3 TH/MM3 (1.0-4.8); MEAN CELL VOLUME 95.2 FL (80.0-100.0); MEAN CORPUSCULAR HEMOGLOBIN 30.1 PG (27.0-34.0); MEAN CORPUSCULAR HGB CONC 31.6 % (32.0-36.0); PLATELET COUNT 186 TH/MM3 (150-450); RED BLOOD COUNT 2.55 MIL/MM3 (4.50-5.90); RED CELL DISTRIBUTION WIDTH 20.9 % (11.6-17.2); WHITE BLOOD COUNT 16.6 TH/MM3 (4.0-11.0)
[2017-08-19 07:47] LABS: ALKALINE PHOSPHATASE 226 U/L (45-117); TOTAL BILIRUBIN ADULT 0.9 MG/DL (0.2-1.0)
[2017-08-19] MEDS: INSULIN ASPART SUPPLEMENTAL SCALE SQ SCH ×4 (08:00→21:00)
[2017-08-19 08:01] LABS: DIGOXIN 1.8 NG/ML (0.8-2.0)
[2017-08-19 08:02] LABS: HEMO FLAGS AUTO DIFF
[2017-08-19] MEDS: ENOXAPARIN SODIUM 40 MG/0.4 ML SYRINGE SQ SCH (08:16)
[2017-08-19] MEDS: MEGESTROL ACETATE SUSP 400 MG/10 ML CUP PO SCH (08:16)
[2017-08-19] MEDS: VANCOMYCIN 500 MG VIAL (FOR ORAL USE ONLY) PO SCH ×4 (08:17→22:16)
[2017-08-19] MEDS: FAMOTIDINE 20 MG TAB PO SCH ×2 (08:17→22:15)
[2017-08-19] MEDS: FUROSEMIDE 20 MG/2 ML VIAL IV PUSH SCH (08:17)
[2017-08-19] MEDS: DIGOXIN 0.125 MG TAB PO SCH (08:17)
[2017-08-19] MEDS: TIOTROPIUM BROMIDE 18 MCG INH INH SCH (08:18)
[2017-08-19] MEDS: BUDESONIDE-FORMOTEROL 160/4.5 MCG INHALER INH SCH ×2 (08:18→21:00)
[2017-08-19 08:57] LABS: HYPERSEGMENTED POLYS 1+ (NORMAL); PLATELET ESTIMATE SMEAR NORMAL (NORMAL); PLATELET MORPHOLOGY NORMAL (NORMAL); SCAN/DIFF AUTO DIFF CONFIRMED; STOMATOCYTES 1+ (NORMAL)
[2017-08-19] MEDS: oxyCODONE/ACETAMINOPHEN 5 MG/325 MG TAB PO PRN ×2 (09:30→22:49)
[2017-08-19] MEDS: methylPREDNISolone SOD SUCC 40 MG/1 ML VIAL IV PUSH SCH ×2 (09:42→22:15)
--- NOTE | 2017-08-19 11:19 | HHI.IDPN ---
Note Infectious Disease Note Patient is alert and in good spirits. Fees well. HAs some pain at the buttock. at bedside. Afebrile. WBC still elevated but lower. On O2 via nasal canula. Admitted to the hospital with weakness, abdominal pain and nausea. The patient is status post anterior resection of colon and rectal areas and anastomosis along with a diverting ileostomy and also resection of a segment of left ureter with ureteral anastomosis and double-J stent placement three weeks prior. PAST MEDICAL HISTORY: 1. Hypertension. 2. Left knee surgery. 3. Metastatic colon cancer status post resection and colo-anal anastomosis and also resection and re-anastomosis of the left ureter with double-J stent placement. ALLERGIES: CODEINE. ABX: Vancomycin PO. Diflucan. OBJECTIVE: Vital Signs Date Time Temp Pulse Resp B/P (MAP) Pulse Ox O2 Delivery O2 Flow Rate FiO2 08/19/17 10:09 97 21 08/19/17 10:00 107 08/19/17 08:00 97.6 106 27 119/80 (93) 91 08/19/17 08:00 106 08/19/17 07:00 91 Room Air 08/19/17 06:00 114 08/19/17 04:00 100 08/19/17 04:00 98.7 98 18 132/68 (89) 90 08/19/17 02:00 97 08/19/17 00:00 95 08/19/17 00:00 98.7 94 24 124/94 (104) 90 08/18/17 22:00 90 08/18/17 20:00 98 Room Air 4.00 08/18/17 20:00 98.7 110 20 112/81 (91) 98 08/18/17 20:00 100 08/18/17 19:41 96 21 08/18/17 16:20 96 21 08/18/17 16:00 98.8 106 22 110/50 (70) 97 08/18/17 12:00 99.0 96 20 103/60 (74) 100 Laboratory Tests Test 08/18/17 05:30 08/19/17 06:30 White Blood Count 12.9 TH/MM3 16.6 TH/MM3 Red Blood Count 2.50 MIL/MM3 2.55 MIL/MM3 Hemoglobin 7.5 GM/DL 7.7 GM/DL Hematocrit 23.3 % 24.3 % Mean Corpuscular Volume 93.3 FL 95.2 FL Mean Corpuscular Hemoglobin 30.1 PG 30.1 PG Mean Corpuscular Hemoglobin Concent 32.3 % 31.6 % Red Cell Distribution Width 21.1 % 20.9 % Platelet Count 197 TH/MM3 186 TH/MM3 Mean Platelet Volume 9.6 FL 9.8 FL Neutrophils (%) (Auto) 96.5 % 93.0 % Lymphocytes (%) (Auto) 1.3 % 1.7 % Monocytes (%) (Auto) 2.1 % 5.0 % Eosinophils (%) (Auto) 0.0 % 0.1 % Basophils (%) (Auto) 0.1 % 0.2 % Neutrophils # (Auto) 12.4 TH/MM3 15.4 TH/MM3 Lymphocytes # (Auto) 0.2 TH/MM3 0.3 TH/MM3 Monocytes # (Auto) 0.3 TH/MM3 0.8 TH/MM3 Eosinophils # (Auto) 0.0 TH/MM3 0.0 TH/MM3 Basophils # (Auto) 0.0 TH/MM3 0.0 TH/MM3 CBC Comment DIFF FINAL AUTO DIFF Differential Comment AUTO DIFF CONFIRMED Hypersegmented Polys 1+ Platelet Estimate NORMAL Platelet Morphology Comment NORMAL Stomatocytes 1+ Laboratory Tests Test 08/18/17 05:30 08/19/17 06:30 Blood Urea Nitrogen 28 MG/DL 22 MG/DL Creatinine 0.57 MG/DL 0.55 MG/DL Random Glucose 182 MG/DL 221 MG/DL Total Protein 5.0 GM/DL 4.8 GM/DL Albumin 1.7 GM/DL 1.5 GM/DL Calcium Level 7.6 MG/DL 7.7 MG/DL Magnesium Level 2.4 MG/DL 2.2 MG/DL Alkaline Phosphatase 207 U/L 226 U/L Aspartate Amino Transf (AST/SGOT) 14 U/L 14 U/L Alanine Aminotransferase (ALT/SGPT) 25 U/L 28 U/L Total Bilirubin 0.8 MG/DL 0.9 MG/DL Sodium Level 145 MEQ/L 139 MEQ/L Potassium Level 4.1 MEQ/L 4.2 MEQ/L Chloride Level 113 MEQ/L 107 MEQ/L Carbon Dioxide Level 26.8 MEQ/L 24.4 MEQ/L Anion Gap 5 MEQ/L 8 MEQ/L Estimat Glomerular Filtration Rate 142 ML/MIN 148 ML/MIN Microbiology Date/Time Source Procedure Growth Status 08/16/17 16:15 Urine Catheterized Urine Urine Culture - Final Diana Albicans Complete IMAGING: Chest X-Ray 08/18/17 0600 Signed Impressions: Service Date/Time: August 02:38 - CONCLUSION: Stable patchy partially consolidative bilateral lower lung infiltrates. Pierce Groves MD Chest X-Ray 08/16/17 0600 Signed Impressions: Service Date/Time: Wednesday, August 16, 2017 04:47 - CONCLUSION: Persistent bilateral pulmonary infiltrates. Pierce Groves MD Chest X-Ray 08/15/17 0000 Signed Impressions: Service Date/Time: Tuesday, August 15, 2017 11:43 - CONCLUSION: 1. Bibasilar densities. 2. Adequate placement of right-sided PICC line Sarwat Suarez MD Chest X-Ray 08/15/17 0000 Signed Impressions: Service Date/Time: Tuesday, August 15, 2017 06:05 - CONCLUSION: Stable bilateral mid and lower lung infiltrates. Pierce Groves MD Chest X-Ray 08/12/17 0600 Signed Impressions: Service Date/Time: Saturday, August 12, 2017 04:25 - CONCLUSION: Bilateral alveolar and interstitial infiltrates are noted. Joel Blancas MD Chest X-Ray 08/12/17 0000 Signed Impressions: Service Date/Time: Saturday, August 12, 2017 11:02 - CONCLUSION: Stable chest x-ray with underinflation and bilateral lower lung zone airspace consolidation. Luca Torres MD Chest X-Ray 08/11/17 0000 Signed Impressions: Service Date/Time: August 07:03 - CONCLUSION: Stable single view the chest. Patchy bibasilar infiltrates are unchanged. Abad Mariano MD PHYSICAL EXAMINATION: GENERAL: No acute distress. HEENT: No icterus. Oropharynx mucosa dry. NECK: Supple. No swelling. LUNGS: Decreased breath sounds. Slight rhonchi. HEART: Regular S1-S2 without murmurs, rubs or gallops. ABDOMEN: Positive bowel sounds. Soft. Non tender. EXTREMITIES: No clubbing or cyanosis, edema. SKIN: No rash. NEUROLOGIC: Nonfocal. PSYCH: Calm and cooperative. IMPRESSION: 1. Post treatment for Severe sepsis/ Bandemia. Status post recent surgery for rectal cancer and recent ureteral resection and double J ureteral stent. 2. C difficile colitis. Pseudomembranous enteritis/sepsis. 3. Acute respiratory failure. Extubated. 4. Pseudomonas pneumonia and UTI. Treated and improved. 5. Leukocytosis. Diana UTI. 6. UTI - Pseudomonas. Stable. RECOMMENDATIONS: 1. Continue PO Vancomycin for c. diff. 2. Continue fluconazole for diana. 3. Monitor clinical status. El Espinoza MD Aug 19, 2017 11:19
[2017-08-19] MEDS: FLUCONAZOLE 100 MG TAB PO SCH (12:02)
[2017-08-19] MEDS: SODIUM HYPOCHLORITE 0.125% 500 ML BTL TOPICAL SCH (14:09)
--- NOTE | 2017-08-19 14:55 | HHI.HCSW ---
[employer] Supervisor Visit Cognitive Functioning Mr. Armendariz was seen in room 1303. He is the alert, oriented, and able to make his needs known. Appropriate in conversation, shows insight and judgement into his medical condition and goals moving forward. Verbalizes desire to go to [facility] with the goal to get back to work. Expressed dissatisfaction with his diet (currently on mechanical soft diet). Spoke with Dr. Segovia and nurse regarding his concerns. Will need to be re-evaluated by speech although recent notes indicate mechanical soft diet recommended. . Significant Family/Friend at bedside. She is very pleased with her 's condition at this time. Verbalizes "I finally have my back". She inquires about rehab acceptance status, transfer to medical floor. Spoke with CM- Mr. Armendariz has been accepted at [facility]- updated. No pending order for transfer to medical floor seen at this time. updated. Gently talked about bereavement services for herself and Mr. Armendariz as they both verbalize continued grief of having to take their eldest daughter off life support a few months ago. and Mr. Armendariz very appreciative of information provided. Offered emotional support through active listening. . Quality of Life Values/Goals Mr. Armendariz desires to go to rehab and "get back to work". . Proposed Soc Wrk Intervention Mr. Armendariz and provided information on bereavement services as they recently had to make the decision to take their eldest daughter off life support. . Follow Up Visit Palliative care will continue to follow throughout hospitalization. Goals remain aggressive. and desire discharge to [facility] when medically able. Cindi Ospina, [employer] M[employer]ER Aug 19, 2017 14:55
--- NOTE | 2017-08-19 14:57 | HHI.PR ---
Subjective . Pt will not eat soft diet. Would recommend Swallow eval and regular diet Objective . VS-S Abd: Benign,stooling Assessment/Plan . Improved but not eating well. Plan either regular diet or TPN even with risk of infection Luca Geiger MD Aug 19, 2017 14:57
--- NOTE | 2017-08-19 15:25 | HHI.HCPN ---
Reason for visit a. To assist with evaluation and management of symptoms including: Dyspnea , confusion, dysphagia b. To assist medical decision maker(s) with: better understanding of current medical conditions; weighing benefits/burdens of medical treatment options; making medical treatment decisions. . Subjective/Interval History INTERVAL NOTE: The patient continues to improve, alert, oriented, communicative. He has again been up in the chair, and he is eating better but wants different food. His only discomfort seems to be related to his decubitus, depending on what position he is in.. . Advance Directives Living Will: Never completed Health Care Surrogate: Never completed Durable Power of Family Court Justice: Never completed Objective Vital Signs Date Time Temp Pulse Resp B/P (MAP) Pulse Ox O2 Delivery O2 Flow Rate FiO2 08/19/17 14:00 108 08/19/17 12:00 97.8 111 24 97/67 (77) 99 08/19/17 12:00 111 08/19/17 10:09 97 21 08/19/17 10:00 107 08/19/17 08:00 97.6 106 27 119/80 (93) 91 08/19/17 08:00 106 08/19/17 07:00 91 Room Air 08/19/17 06:00 114 08/19/17 04:00 100 08/19/17 04:00 98.7 98 18 132/68 (89) 90 08/19/17 02:00 97 08/19/17 00:00 95 08/19/17 00:00 98.7 94 24 124/94 (104) 90 08/18/17 22:00 90 08/18/17 20:00 98 Room Air 4.00 08/18/17 20:00 98.7 110 20 112/81 (91) 98 08/18/17 20:00 100 08/18/17 19:41 96 21 08/18/17 16:20 96 21 08/18/17 16:00 98.8 106 22 110/50 (70) 97 Intake & Output 08/19/17 08/19/17 07:00 19:00 Intake Total 1010.2 ml Output Total 1100 ml Balance -89.8 ml IV Total 1010.2 ml Output Urine Total 900 ml Stool Total 200 ml Physical Exam CONSTITUTIONAL/GENERAL: This is a weak, thin, alert patient, in no apparent distress. TUBES/LINES/DRAINS: nasal cannula oxygen SKIN: No jaundice, rashes. A wound VAC is present on the sacral wound. Ecchymoses on upper extremities. No wounds seen anteriorly. Skin temperature appropriate. Not diaphoretic. NECK: Trachea midline. Supple, nontender. No palpable thyroid enlargement or nodularity. CARDIOVASCULAR: Irregular without murmurs, gallops, or rubs. No JVD. Peripheral pulses symmetric. RESPIRATORY/CHEST: Symmetric, unlabored respirations. Clear to auscultation. Breath sounds equal bilaterally. No wheezes, rales, or rhonchi. GASTROINTESTINAL: Abdomen soft, non-tender, nondistended. No hepato-splenomegaly , or palpable masses. Ileostomy present. Bowel sounds present. MUSCULOSKELETAL: Extremities without clubbing, cyanosis, or edema. No joint tenderness or effusion noted. No calf tenderness. No mottling or clubbing. NEUROLOGICAL: Awake and alert, oriented. No obvious motor deficits, but he is weak globally. Moves all extremities. PSYCHIATRIC: No obvious anxiety or depression or evidence of psychosis Diagnostic Tests Laboratory Laboratory Tests Test 08/16/17 16:15 08/16/17 18:31 08/17/17 09:55 08/18/17 05:30 Urine Color YELLOW (YELLW/STRAW) Urine Turbidity CLOUDY (CLEAR) Urine pH 8.0 (5.0-8.5) Urine Specific Hope 1.015 (1.002-1.035) Urine Protein TRACE mg/dL (NEG-TRACE) Urine Glucose (UA) NEG mg/dL (NEG) Urine Ketones NEG mg/dL (NEG) Urine Occult Blood MOD (NEG) Urine Nitrite NEG (NEG) Urine Bilirubin NEG (NEG) Urine Urobilinogen LESS THAN 2.0 MG/DL (LESS Urine Leukocyte Esterase LARGE (NEG) Urine RBC /hpf (0-3) Urine WBC 117 /hpf (0-5) Urine Bacteria FEW /hpf (NONE) Urine Mucus FEW /lpf (OCC) Urine Yeast with Hyphae MOD (NONE) Urine Yeast (Budding) MANY (NONE) Microscopic Urinalysis Comment CATH-CULTURE IND Potassium Level 4.5 MEQ/L (3.5-5.1) 3.7 MEQ/L (3.5-5.1) 4.1 MEQ/L (3.5-5.1) White Blood Count 21.1 TH/MM3 (4.0-11.0) 12.9 TH/MM3 (4.0-11.0) Red Blood Count 2.85 MIL/MM3 (4.50-5.90) 2.50 MIL/MM3 (4.50-5.90) Hemoglobin 8.4 GM/DL (13.0-17.0) 7.5 GM/DL (13.0-17.0) Hematocrit 26.4 % (39.0-51.0) 23.3 % (39.0-51.0) Mean Corpuscular Volume 92.5 FL (80.0-100.0) 93.3 FL (80.0-100.0) Mean Corpuscular Hemoglobin 29.5 PG (27.0-34.0) 30.1 PG (27.0-34.0) Mean Corpuscular Hemoglobin Concent 31.9 % (32.0-36.0) 32.3 % (32.0-36.0) Red Cell Distribution Width 21.3 % (11.6-17.2) 21.1 % (11.6-17.2) Platelet Count 232 TH/MM3 (150-450) 197 TH/MM3 (150-450) Mean Platelet Volume 9.3 FL (7.0-11.0) 9.6 FL (7.0-11.0) Neutrophils (%) (Auto) 96.1 % (16.0-70.0) 96.5 % (16.0-70.0) Lymphocytes (%) (Auto) 1.2 % (9.0-44.0) 1.3 % (9.0-44.0) Monocytes (%) (Auto) 2.7 % (0.0-8.0) 2.1 % (0.0-8.0) Eosinophils (%) (Auto) 0.0 % (0.0-4.0) 0.0 % (0.0-4.0) Basophils (%) (Auto) 0.0 % (0.0-2.0) 0.1 % (0.0-2.0) Neutrophils # (Auto) 20.2 TH/MM3 (1.8-7.7) 12.4 TH/MM3 (1.8-7.7) Lymphocytes # (Auto) 0.3 TH/MM3 (1.0-4.8) 0.2 TH/MM3 (1.0-4.8) Monocytes # (Auto) 0.6 TH/MM3 (0-0.9) 0.3 TH/MM3 (0-0.9) Eosinophils # (Auto) 0.0 TH/MM3 (0-0.4) 0.0 TH/MM3 (0-0.4) Basophils # (Auto) 0.0 TH/MM3 (0-0.2) 0.0 TH/MM3 (0-0.2) CBC Comment AUTO DIFF DIFF FINAL Differential Total Cells Counted 100 Neutrophils % (Manual) 96 % (16-70) Lymphocytes % 1 % (9-44) Monocytes % 3 % (0-8) Neutrophils # (Manual) 20.3 TH/MM3 (1.8-7.7) Differential Comment FINAL DIFF MANUAL Hypersegmented Polys 1+ (NORMAL) Platelet Estimate NORMAL (NORMAL) Platelet Morphology Comment NORMAL (NORMAL) Blood Urea Nitrogen 24 MG/DL (7-18) 28 MG/DL (7-18) Creatinine 0.70 MG/DL (0.60-1.30) 0.57 MG/DL (0.60-1.30) Random Glucose 141 MG/DL (74-106) 182 MG/DL (74-106) Total Protein 5.2 GM/DL (6.4-8.2) 5.0 GM/DL (6.4-8.2) Albumin 1.9 GM/DL (3.4-5.0) 1.7 GM/DL (3.4-5.0) Calcium Level 7.7 MG/DL (8.5-10.1) 7.6 MG/DL (8.5-10.1) Magnesium Level 2.3 MG/DL (1.5-2.5) 2.4 MG/DL (1.5-2.5) Alkaline Phosphatase 202 U/L (45-117) 207 U/L (45-117) Aspartate Amino Transf (AST/SGOT) 19 U/L (15-37) 14 U/L (15-37) Alanine Aminotransferase (ALT/SGPT) 29 U/L (12-78) 25 U/L (12-78) Total Bilirubin 1.2 MG/DL (0.2-1.0) 0.8 MG/DL (0.2-1.0) Sodium Level 146 MEQ/L (136-145) 145 MEQ/L (136-145) Chloride Level 112 MEQ/L (98-107) 113 MEQ/L (98-107) Carbon Dioxide Level 26.2 MEQ/L (21.0-32.0) 26.8 MEQ/L (21.0-32.0) Anion Gap 8 MEQ/L (5-15) 5 MEQ/L (5-15) Estimat Glomerular Filtration Rate 112 ML/MIN (>89) 142 ML/MIN (>89) Test 08/19/17 06:30 White Blood Count 16.6 TH/MM3 (4.0-11.0) Red Blood Count 2.55 MIL/MM3 (4.50-5.90) Hemoglobin 7.7 GM/DL (13.0-17.0) Hematocrit 24.3 % (39.0-51.0) Mean Corpuscular Volume 95.2 FL (80.0-100.0) Mean Corpuscular Hemoglobin 30.1 PG (27.0-34.0) Mean Corpuscular Hemoglobin Concent 31.6 % (32.0-36.0) Red Cell Distribution Width 20.9 % (11.6-17.2) Platelet Count 186 TH/MM3 (150-450) Mean Platelet Volume 9.8 FL (7.0-11.0) Neutrophils (%) (Auto) 93.0 % (16.0-70.0) Lymphocytes (%) (Auto) 1.7 % (9.0-44.0) Monocytes (%) (Auto) 5.0 % (0.0-8.0) Eosinophils (%) (Auto) 0.1 % (0.0-4.0) Basophils (%) (Auto) 0.2 % (0.0-2.0) Neutrophils # (Auto) 15.4 TH/MM3 (1.8-7.7) Lymphocytes # (Auto) 0.3 TH/MM3 (1.0-4.8) Monocytes # (Auto) 0.8 TH/MM3 (0-0.9) Eosinophils # (Auto) 0.0 TH/MM3 (0-0.4) Basophils # (Auto) 0.0 TH/MM3 (0-0.2) CBC Comment AUTO DIFF Differential Comment AUTO DIFF CONFIRMED Hypersegmented Polys 1+ (NORMAL) Platelet Estimate NORMAL (NORMAL) Platelet Morphology Comment NORMAL (NORMAL) Stomatocytes 1+ (NORMAL) Blood Urea Nitrogen 22 MG/DL (7-18) Creatinine 0.55 MG/DL (0.60-1.30) Random Glucose 221 MG/DL (74-106) Total Protein 4.8 GM/DL (6.4-8.2) Albumin 1.5 GM/DL (3.4-5.0) Calcium Level 7.7 MG/DL (8.5-10.1) Magnesium Level 2.2 MG/DL (1.5-2.5) Alkaline Phosphatase 226 U/L (45-117) Aspartate Amino Transf (AST/SGOT) 14 U/L (15-37) Alanine Aminotransferase (ALT/SGPT) 28 U/L (12-78) Total Bilirubin 0.9 MG/DL (0.2-1.0) Sodium Level 139 MEQ/L (136-145) Potassium Level 4.2 MEQ/L (3.5-5.1) Chloride Level 107 MEQ/L (98-107) Carbon Dioxide Level 24.4 MEQ/L (21.0-32.0) Anion Gap 8 MEQ/L (5-15) Estimat Glomerular Filtration Rate 148 ML/MIN (>89) Digoxin Level 1.8 NG/ML (0.8-2.0) Result Diagram: 08/19/17 0630 08/19/17 0630 Microbiology Microbiology Date/Time Source Procedure Growth Status 08/16/17 16:15 Urine Catheterized Urine Urine Culture - Final Alisha Albicans Complete Procedures * During previous hospitalization, rectosigmoidectomy with wedge resection of liver mass 05/26/17 * During this hospitalization... * INTUBATION 06/18/17 * EXTUBATION 07/07/17 * Excision of sacral decubitus, wound VAC placement 07/17/17 Assessment and Plan Disease Oriented Problem List: (1) recurrent respiratory failure, pneumonia (2) recurrent/persistent pneumonia, probable aspiration (3) recurrent/persistent pneumonia, probable aspiration (4) recurrent UTI with resistant Pseudomonas (5) altered mental status/delirium, likely multifactorial (6) recurrent rapid atrial fib (7) septic shock requiring intubation X 17 days (8) severe malnutrition/deconditioning (9) rectal cancer November 2016, s/p radiation/chemo and surgery (10) history of anxiety (11) history of COPD (12) remote history of pancreatitis (13) BPH Symptom Scale: (1) pain 0-10 Scale: Unable to quantify (2) dyspnea 0-10 Scale: Unable to quantify (3) confusion 0-10 Scale: Unable to quantify (4) anxiety 0-10 Scale: Unable to quantify (long history of anxiety) Pertinent Non-Medical Issues Psychosocial: for 51 years, 3 daughters, one daughter . 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 Spiritual: The patient has a Buddhism background, but has been on affiliated with the [employer] for many years, and the does not believe he would want a visit from a solid fiber paster operator or from hospital chaplains. Legal: The patient lacks capacity for decision-making at the time of the initial consultation, and it is uncertain whether he will regain that capacity. His is the decision making proxy. Ethical issues impacting care: None . Important Contacts Spouse: Quynh Armendariz [phone] Daughter: Alison Matthews [phone] . Prognosis The patient's debility and deconditioning has become quite profound, and he again is suffering from hypoxic respiratory failure. In addition, he has underlying recent metastatic rectal adenocarcinoma (although the post surgery scans did not indicate any obvious metastatic disease). Overall, his prognosis for complete recovery with return to work would seem to be quite poor. . Code Status: Full Code Plan * FULL CODE * DECISION-MAKING: The patient seems to be regaining capacity for decision- making at this time; his is the decision making proxy. * GOALS: The overall goal is to get the patient back home, perhaps after a stay in rehab, even though he may remain quite weak and may even be nonambulatory. The family understands that the overall prognosis is not good with the underlying malignancy, but they are fairly optimistic now in the short- term. * SYMPTOMS: The patient has denied pain except in his sacral decubitus in recent days. His delirium has resolved, and his dyspnea has improved....now on RA. * Palliative Care will continue to follow this patient during this hospitalization, to be another supportive and consistent presence for the patient, , and daughters during this very difficult hospitalization and its multiple complications and setbacks. . Time Spent Total Floor Time (mins): 29 Face to Face Time (mins): 16 >50% Counseling/Coord of Care: Yes Attestation To help prompt me to consider important information that might be impacting today's encounter and assessment, information from prior notes written by myself or my colleagues may have been "brought forward" into today's note. My signature on this note, however, is an attestation that I personally performed the exam, history, and/or decision-making noted today, and, unless otherwise indicated, the interactions with patient, family, and staff as well as the review of records all occurred today. I also attest that the listed assessment and stated plan reflect my best clinical judgment today based on the combination of historical information, prior notes, and today's exam/ interactions. When time spent is documented, it refers only to time spent today by the signer, or if indicated, combined time spent today by collaborating physician/nurse practitioner. Sasha Hyde MD Aug 19, 2017 15:25
[2017-08-19] MEDS: oxyCODONE/ACETAMINOPHEN 7.5 MG/325 MG TAB PO PRN (15:50)
[2017-08-19] MEDS: VIIBRYD 40 MG PO SCH (21:00)
[2017-08-19] MEDS: CLINIMIX E 4.25/5 1000 mL- </= 42 mls/hr IV SCH ×3 (22:15)
[2017-08-19] MEDS: TAMSULOSIN HCL 0.4 MG CAP PO SCH (22:16)
[2017-08-19] MEDS: MELATONIN 5 MG TAB PO SCH (22:16)
[2017-08-20] VITALS (14 sets, daily range): BP systolic 101–132; BP diastolic 62–79; PULSE 92–106; RESP 18–25; TEMP 97.9–98.6; O2SAT 92–95
[2017-08-20] MEDS: DILTIAZEM HCL 60 MG TAB PO SCH ×4 (00:28→17:26)
[2017-08-20] MEDS: RESP: ALBUTEROL 2.5 MG/IPRATROPIUM 0.5 MG NEB (SCH) NEB ×3 (00:32→16:09)
--- NOTE | 2017-08-20 07:03 | HHI.CCPN ---
Subjective Remarks/Hospital Course The patient is a 67-year-old male with past medical history of hypertension, metastatic colon cancer, tobacco abuse, who, about 3 weeks ago underwent low anterior resection with low colorectal anastomosis, diverting ileostomy, and resection of a segment of the left ureter with ureteral anastomosis and double- J stent placement. He presented yesterday with 5 day history of abdominal discomfort and increasing weakness. No history of high output from ileostomy. He was admitted to the colorectal surgery for dehydration and probable UTI. He was placed on ciprofloxacin and IV hydration. According to Dr. Geiger's note it was difficult dissection/resection colon mass because of the pelvic sidewall adherence and the adherence to the left ureter. A portion of ureter was resected due to possibility of tumor infiltration, and Dr. Augustine Pelayo re- anastomosed the ureter and placed left-sided double-J stent. Also 1 cm hepatic metastasis in his liver that was excised. Hospitalist consultation was requested for medical management and evaluation of tachycardia today. He was seen by Dr. Jay and was placed on infusion of Cardizem for heart rate 140s. Patient became hypotensive with systolic blood pressure early 90s. Lab work showed WBC 14.5 with 44% bands, creat increase from 1.2 to 1.4 and severely increased lactate at 8 from admission lactate of 2.6. CT of the abdomen pelvis done yesterday showed probable small bowel ileus. I evaluated the patient in the ICU. He is tachycardic in 140s, hypotensive and systolic blood pressure in mid 80s. Clinically appears very dehydrated, an NG tube was placed with approximately 3 L of some coffee-ground output. ABG shows a base excess of -10 and bicarbonate 12. I have ordered 4 liter normal saline boluses start 1 amp of bicarbonate, discontinued the LR infusion, and started bicarb gtt. Discontinue ciprofloxacin, started Zosyn every 6 hours, vancomycin 1 g 1. His elevated lactic acid and bandemia most likely secondary to severe sepsis, ileus, and severe dehydration. Serial lactate is ordered SUBJ 06/19: Lactic acid remains elevated at 6.6 despite getting 9 L of crystalloid boluses in last 24 hours. Tachycardia has improved heart rate in 110s. Remains on vasopressin at 0.04 units/min. Urine output almost 1200 mL overnight, OGT initial output was almost 3 L when placed yesterday a.m. Overnight had 550 mL of greenish brown fluid output. EGD pending today rule out gastric ischemia per Dr. Romero. Apparently Flex sig was negative post op in Dr. Geiger's office 06/20: Developed A. fib with RVR. Heart rate 200. Hemodynamically unstable, synchronized cardioversion attempted by Dr. Morales 100 200 J. Given 3 g mag sulfate and 80 mEq KCl 1, 0.5 digoxin 1 and started on amiodarone and Giorgio- Synephrine. Intubated due to hemodynamic instability. Currently remains sedated. Currently on Giorgio-Synephrine 80 mcg/m, and amiodarone. CT chest abdomen pelvis again confirms gastric and small bowel distention/ileus. UO 1800 ml in 24 hours 06/21: Remains critically ill, intubated sedated, on 100 mcg/min neosynpehrine. HR better controlled. NG output 1500, UO >1.4L. Am labs pending. Ileostomy sample positive for C Diff on PO vanc IV Flagyl. 06/22: Remains intubated sedated. Urine output 3000 mL with Bumex. NGT [address] Geiger did colonoscopy which was normal. Ileoscopy showed pseudomembranous colitis. Currently on 200 mcg/min of neosynephrine. Afib with RVR HR in 140's 06/23: Remains intubated sedated, remains in atrial fibrillation with RVR. Still requiring high doses of Giorgio-Synephrine at 190 mcg/min. UO 2.5L. chest x- ray showed bilateral large effusions. KUB shows improving small bowel distention. WBC count is slightly improved 06/24: Unable to control HR. Repeat shock x3 today. remains in atrial fibrillation with RVR rates 160-170 intermittently. Remains on amiodarone but will discontinued due to elevation of liver enzymes AST 546 ALT 158. (GI notified). Start Cardizem infusion and also give Surjit 0.5 mg 1. Platelet count continues to drop from 67 to today 45. Hematology following will start of Argatroban today. Creatinine has slightly increased to 1.3 to will DC Bumex infusion 06/25: Patient remains intubated sedated critically ill. Heart rate controlled for the first time since atrial fibrillation started. Heart rate remains 80- 90. Urine output 1200 mL in 24 hours but BUN/creatinine increasing 44/1.7. I will hydrate with 50 mL/hr normal saline for 24 hours. Transaminitis increasing AST 1300 ALT 386. Ultrasound of the liver unremarkable GI following 06/26: PTT elevated due to Argatorban/Liver failure. Dr. Hurley has DCd argatroban. SMILEY pending. Pl count is 21. Currently in sinus rhythm on Cardizem infusion. Not on any pressors. Creatinine improved to 1.2. Urine output adequate. Becomes very tachypneic on attempted CPAP. Discussed with Dr. Geiger Will Start Trickle Tube Feeds 06/27: no improvements. off pathway. thrombocytopenia persists. unable to wean from mechanical ventilation. neuro exam poor. will likely need trach. 06/28: platelets worse today. SMILEY not resulted yet. failing SBT and mental status poor. poor prognosis. will need trach and LTAC placement. 06/29: Tmax 101. Currently 99.6. Tolerating trickle tube feeds. Continues to fail spontaneous breathing trials. 06/30: Lasted 1 hour spontaneous breathing trial this AM. 2.5 hours this afternoon. Currently afebrile. Hemoglobin remained stable. 07/01: lasted 4 hours on SBT, except 15 of pressure support, so not ready clinically for extubation, and even after only 4 hours, tired out and became hypoxic and tachypneic. more awake today and following commands. will likely need tracheostomy. 07/02: new fever today, but wbc normal. per ID, will culture and observe, continue flagyl/PO vanc. otherwise no changes. no improvements. 07/03: pseudomonas in sputum and urine. increase in cough and secretions. ID following and added cefepime. still weak and failing SBTs for hypoxia and tachypnea. needs tracheostomy. will need long-term rehab and likely LTAC. 07/04: Wakes up easily, follows commands. On 5 mg/hr versed. CXR pending. UO adequate. Resume SBT. Significant weight gain. approx 15 kg up. Give Bumex 2 mg IV x1 07/05: Patient is intubated sedated with 50 g per hour of fentanyl. Urine output 3 L in [address] on scheduled Bumex. Tolerating CPAP at 15/5. bring in Viibryd, which apparently patient had been on for long time. I have resumed it. 07/06: Tolerating CPAP 10/5 better today, Wakes up and following commands. Good UO with Bumex. Chest x-ray basilar opacities essentially unchanged. Increase IV Bumex to 1 mg every 12 07/07: Extubated yesterday tolerating well. Slightly tachypneic but maintain oxygen saturation and no subjective shortness of breath. Urine output remains excellent on Bumex, 2.9L in 24 hours 07/08: Lying on bed breathing comfortably urine output excellent with increased Bumex dose. 5.8 L in 24 hours. WBC count stable. Increase activity up to stretcher chair today 07/09: Tolerating by mouth diet. Eating atleast 50%. TPN reduced by half yesterday. UO remains excellent with diuresis. Attempt TPN wean off today. Breathing comfortably except intermittent tachypnea. 07/10: Appetite better, breathing more comfortably. Off TPN. UO remains excellent. Platelet count slightly dropped to 46 from 49. I will continue steroids at Solu-Medrol 20 mg IV every 12, taper only very slowly 07/11: Afebrile. Resting comfortably in bed. On nasal cannula. 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 In brief this is a 67-year-old male with metastatic colon cancer status post colectomy with end ileostomy. He originally presented to the hospital with severe C. difficile ileitis and septic shock. He had a prolonged mechanical ventilation and ICU course. 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 Most recently has been on the floor and has had recurrent ileus. Over the last 3 days per nursing charting he is proximally 7 L positive as well as being 3 kg up from his weight a few days ago. His BNP is 245. He complains of worsening SOB and increasing oxygen requirement up to nonrebreather. On my evaluation this evening, he is tachypneic and dyspneic and respiratory distress on a nonrebreather. SPO2 89%. He denies chest pain, abdominal pain, nausea, vomiting. Per report, he did vomit a few times earlier today, and there is a high clinical suspicion by the hospitalist service that he had an aspiration event. He has an NG tube in place to suction. His most recent urine culture data suggests that his pseudomonas is now resistant to cefepime. For this reason infectious disease discontinued cefepime and started Zosyn today. Chest x-ray demonstrates bilateral patchy infiltrates either suggestive of volume overload or bilateral multifocal pneumonia. Limited review systems is otherwise negative unless stated above. 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 SUBJ 08/09: Patient lying on the bed slightly tachypneic but respiratory distress subjectively improved. On high flow nasal cannula 80% FiO2 been just weaned to 60%. Chest x-ray shows interval improvement in bilateral infiltrates received 40 mg IV Lasix yesterday. WBC count is improved from 23.1 to 16.3. KUB shows nonspecific bowel gas pattern 08/10: Remains on high flow nasal cannula at 50% oxygen. But appears to be breathing comfortably. Urine output adequate with Lasix yesterday also. 3.9 L in 24 hours. IR unable to place PEG yesterday, Dr. Geiger will discuss with IR today 08/11: Patient is currently back on high flow NC, at 55% oxygen. CXR unchanged. K 2.8 getting replaced, IV Lasix 40 mg x1. Plan for PEG tube placement in the OR today by Dr. Watts. 08/12: Patient currently on normal partial nonrebreather with oxygen saturation 95-96%. Chest x-rays essentially unchanged I have ordered additional 40 mg Lasix today and were placed on scheduled Lasix. WBC count is trending up but patient is currently on steroids 08/13: patient CAM+ and confused this AM. o2 requirement continues to improve. hr in the 130s, afib, irregular. 08/14: very difficult to control afib RVR overnight. patient has history of refractory RVR, which during prior acute illnesses was not rate controlled despite medication and multiple cardioversion attempts. in the past, digoxin, electrolyte replacement, and diltiazem were the most effective treatments. he has had elevated LFTs in the past which were thought to be related to amiodarone. this morning, heart rate continues to be in the 170s. blood pressure is borderline hypotensive. yesterday diltiazem was increased to 90mg po q6h. dig level pending this AM. hypokalemic. 08/15: Acute respiratory decompensation with hypoxia. Placed on 100% nonrebreather with improvement in oxygen saturation of 100%. Tachypneic, but able to communicate. Chest x-ray remains unchanged. I will give additional Lasix total 40 mg now with potassium replacement. Keep NPO, re insert NGT (will d/w CRS) and get speech for swallow eval. in and out of A. fib currently sinus with PVCs 08/16: Slightly tachypneic, WBC count slightly increased to 21.6 today from 18.6. Intermittently confused, on my exam he was oriented to person and place. Anxious tremulous. Discussed with Dr. Tran, will DC Ping Hernandez. Dr. Espinoza has DC'd Zosyn today. Will re culture. CXR appears improved. 08/17: Improved oxygenation on 4L NC today, improving mentation. UA shows evidence of UTI with yeast. Change Han, started Diflucan. Zosyn DCd yesterday. labs are pending 08/18: WBC count improving 12.9 today, slight drop in hemoglobin noted to 7.5. Remains oriented to person and place, clinically improving. Diflucan started yesterday. Han catheter replaced 08/17 08/19: Better oriented, appears calm, on room air. In sinus rhythm, tachycardic. Urine output adequate. I will reduce Solu- Medrol to 20 mg every 12 08/20: Clinically improving, but RN reports intermittent confusion ? after getting Percocet. Found on floor at night, but patient cannot recall what happened. I have DCd percocet and placed on PRN Lortab and also DCd melatonin. Labs pending. UO adequate. Lasix DCd yesterday Objective Vital Signs Date Time Temp Pulse Resp B/P (MAP) Pulse Ox O2 Delivery O2 Flow Rate FiO2 08/20/17 06:00 97 08/20/17 04:00 97.9 18 132/62 (85) 92 08/19/17 20:00 Room Air 08/19/17 10:09 21 08/18/17 20:00 4.00 Intake and Output 08/20/17 08/20/17 08/21/17 08:00 16:00 00:00 Intake Total 400 ml Output Total 1200 ml Balance -800 ml Result Diagram: 08/19/17 0630 08/19/17 0630 Imaging Last Impressions Chest X-Ray 07/10/17 0600 Signed Impressions: Service Date/Time: Monday, July 10, 2017 04:39 - CONCLUSION: No significant change with persistent bilateral pulmonary parenchymal opacity with lower lung zone predominance likely worsening pulmonary edema and bilateral pleural effusions. Luis Armando Michel MD Abdomen X-Ray 07/06/17 0000 Signed Impressions: Service Date/Time: Thursday, July 06, 2017 13:44 - CONCLUSION: 1. Gaseous distention of multiple bowel loops. This has slightly improved. 2. Left-sided nephroureteral stent in good position. Sarwat Suarez MD Liver Ultrasound 06/24/17 0000 Signed Impressions: Service Date/Time: Saturday, June 24, 2017 16:38 - CONCLUSION: 1. Small volume ascites. 2. Small right effusion. Pierce Ospina Jr., MD Upper Extremity Ultrasound 06/23/17 0000 Signed Impressions: Service Date/Time: June 20:03 - CONCLUSION: Noncompressibility right cephalic vein and left basilic vein consistent with venous thrombosis Trav Hsieh MD Lower Extremity Ultrasound 06/23/17 0000 Signed Impressions: Service Date/Time: June 20:16 - CONCLUSION: Normal examination. No evidence DVT Trav Hsieh MD Chest CT 06/20/17 0000 Signed Impressions: Service Date/Time: Tuesday, June 20, 2017 07:42 - CONCLUSION: 1. Bilateral effusions and consolidative changes in both lung bases. Bao Lora MD Abdomen/Pelvis CT 06/20/17 0000 Signed Impressions: Service Date/Time: Tuesday, June 20, 2017 07:39 - CONCLUSION: 1. Dilated stomach and multiple dilated loops of small bowel, likely ileus. 2. No definite gastric volvulus. 3. Fat containing right inguinal hernia which also contains small portion of the urinary bladder and minimal fluid. 4. Left-sided nephroureteral stent in good position. 5. Bibasilar consolidation and small pleural effusions. Sarwat Suarez MD Objective Remarks GENERAL: 67-year-old male lying on bed, in no respiratory distress good saturation on RA SKIN: Warm and dry. HEENT: Normocephalic. Atraumatic. Extraocular muscles intact. NECK: The neck is supple. Trachea is midline. CHEST: Bilateral coarse breath sounds, few basilar crackles. On RA CVS: Currently sinus rhythm, mildly tachycardic, no murmurs ABDOMEN: Abdomen is soft. Ileostomy is functioning well, good output EXTREMITIES: No pedal edema or cyanosis. NEURO: Alert awake anxious oriented to person place. Moves all extremities but weak, following commands. Hand tremors improving Urinary Catheter: Yes Assessment to: Continue Vascular Central Line Catheter: Yes Assessment to: Continue Line: PICC A/P Assessment and Plan Assessment: This is a 67-year-old male with colon cancer and recurrent pseudomonal infections who presents with recurrent respiratory distress, acute hypoxic respiratory failure. Now back in afib RVR which in the past has been very refractory. will aggressively replace electrolytes. Delirium persists, but improving. Critically ill now showing signs of improvement. Getting Diflucan for Diana UTI Active Problems: Acute hypoxemic respiratory failure-resolved COPD with exacerbation Aspiration pneumonia Diana UTI Pulmonary Edema/Acute intravascular volume overload HCAP with Pseudomonas Agitated Delirium - improving Atrial fibrillation with intermittent rapid ventricular response, now in sinus tach C Diff ileitis UTI with Pseudomonas s/p treatment s/p Pseudomonas bacteremia s/p treatment s/p Partial resection of the left ureter with anastomosis and placement of double-J stent Recurrent ileus Acute protein calorie malnutrition- severe. Metastatic colon cancer s/p resection Malnutrition with weight loss Plan: Respiratory status improved, acceptable oxygen saturations on RA today, chest x- ray 08/16 on my review of improved infiltrates Delirium improving, UA and culture UTI with diana. Diflucan started 08/17, Han replaced 08/17 Discontinued Zyprexa Reglan 08/17. Use when necessary Haldol and low dose Ativan. Continue Vibrrid. DC Melatonin DC Perocet, Lortab 5/325 PRN pain 5-10 Continue by mouth vancomycin, continue Diflucan for Diana UTI. (IV Zosyn and IV Flagyl discontinued per ID 08/16) Previous Pseudomonas bacteremia UTI and HCAP Lasix 20 mg IV qday. DCd on 08/19/17 IV solumedrol 20 q12 -cahnge to Prednisone 20 mg PO daily Continue Symbicort, Spiriva, EzPAP, acapella, DuoNeb's Relative contraindication of BiPAP being high aspiration risk, ileus, no absolute contraindication IR, GI unable to place PEG tube. D/W Dr. Pelayo re: ureteral stent removal- recommended postponing until more stable Cardizem to 90 mg po q6h. PO Digoxin. Metoprolol 5mg iv q4h PRN for HR control. NSR Stopped amio infusion due to previous liver enzyme elevation Aggressively replace electrolytes, target mg > 2.0, k > 4.0 Lovenox for DVT prophylaxis, famotidine for GI prophylaxis PT/OT up to chair daily Regular basic diet. TPN 20 ml per hour. Megace for appetite stimulation Cathectic, continues to lose weight. Dietary consulted for recommendations Level 2 Continue in icu. clinically slightly improved today. Shiva Segovia MD Aug 20, 2017 07:03
[2017-08-20 07:43] LABS: AUTOMATED NEUTROPHIL # 12.7 TH/MM3 (1.8-7.7); BASOPHIL % 0.3 % (0.0-2.0); EOSINOPHIL % 0.1 % (0.0-4.0); HEMATOCRIT 27.3 % (39.0-51.0); LYMPHOCYTE # 0.6 TH/MM3 (1.0-4.8); MEAN CELL VOLUME 92.6 FL (80.0-100.0); MEAN CORPUSCULAR HEMOGLOBIN 29.6 PG (27.0-34.0); MONO % 6.6 % (0.0-8.0); PLATELET COUNT 200 TH/MM3 (150-450); RED BLOOD COUNT 2.95 MIL/MM3 (4.50-5.90); RED CELL DISTRIBUTION WIDTH 21.6 % (11.6-17.2); WHITE BLOOD COUNT 14.3 TH/MM3 (4.0-11.0)
[2017-08-20 07:51] LABS: HEMO FLAGS AUTO DIFF
[2017-08-20] MEDS: INSULIN ASPART SUPPLEMENTAL SCALE SQ SCH ×4 (08:00→20:31)
[2017-08-20 08:05] LABS: POTASSIUM 3.7 MEQ/L (3.5-5.1)
[2017-08-20 08:46] LABS: HYPERSEGMENTED POLYS 1+ (NORMAL); SCAN/DIFF AUTO DIFF CONFIRMED
[2017-08-20] MEDS: predniSONE 20 MG TAB PO SCH (09:00)
[2017-08-20] MEDS: ENOXAPARIN SODIUM 40 MG/0.4 ML SYRINGE SQ SCH (10:03)
[2017-08-20] MEDS: MEGESTROL ACETATE SUSP 400 MG/10 ML CUP PO SCH (10:03)
[2017-08-20] MEDS: FAMOTIDINE 20 MG TAB PO SCH ×2 (10:04→20:12)
[2017-08-20] MEDS: DIGOXIN 0.125 MG TAB PO SCH (10:04)
[2017-08-20] MEDS: VANCOMYCIN 500 MG VIAL (FOR ORAL USE ONLY) PO SCH ×4 (10:04→20:11)
[2017-08-20] MEDS: TIOTROPIUM BROMIDE 18 MCG INH INH SCH (10:08)
[2017-08-20] MEDS: BUDESONIDE-FORMOTEROL 160/4.5 MCG INHALER INH SCH ×2 (10:08→20:12)
--- NOTE | 2017-08-20 10:36 | HHI.PR ---
Subjective Remarks Failure to thrive no confusion, unwilling to eat Objective Vital Signs Date Time Temp Pulse Resp B/P (MAP) Pulse Ox O2 Delivery O2 Flow Rate FiO2 08/20/17 08:31 95 Nasal Cannula 3.00 08/20/17 06:00 97 08/20/17 04:00 97 08/20/17 04:00 97.9 98 18 132/62 (85) 92 08/20/17 02:00 99 08/20/17 00:00 97 08/20/17 00:00 97.9 99 21 111/65 (80) 93 08/19/17 22:00 100 08/19/17 20:00 96 Room Air 08/19/17 20:00 97.8 104 38 115/69 (84) 97 08/19/17 20:00 96 08/19/17 18:00 98 08/19/17 16:00 97.8 104 38 102/64 (77) 97 08/19/17 16:00 100 08/19/17 14:00 108 08/19/17 12:00 97.8 111 24 97/67 (77) 99 08/19/17 12:00 111 I/O 08/19/17 08/19/17 08/19/17 08/20/17 08/20/17 08/20/17 07:00 15:00 23:00 07:00 15:00 23:00 Intake Total 1195 ml 400 ml Output Total 1100 ml 1550 ml 1200 ml Balance -1100 ml -355 ml -800 ml Intake Oral 960 ml 400 ml IV Total 235 ml Output Urine Total 900 ml 1250 ml 1000 ml Stool Total 200 ml 300 ml 200 ml Drainage Total 0 ml 0 ml Result Diagram: 08/20/1719 08/20/17718 Objective Remarks Cachectic Abdomen soft, nondistended wound healed Stoma pink, prolapsed Assessment and Plan Assessment and Plan Added Ensure Plus Encouraged pt Karin Adams MD Aug 20, 2017 10:36
[2017-08-20] MEDS: FLUCONAZOLE 100 MG TAB PO SCH (12:18)
[2017-08-20] MEDS: HALOPERIDOL LACTATE 5 MG/ML AMP IV PRN (17:26)
[2017-08-20] MEDS: CLINIMIX E 4.25/5 1000 mL- </= 42 mls/hr IV SCH ×3 (20:00)
[2017-08-20] MEDS: TAMSULOSIN HCL 0.4 MG CAP PO SCH (20:12)
[2017-08-20] MEDS: VIIBRYD 40 MG PO SCH (20:56)
[2017-08-21] VITALS (13 sets, daily range): BP systolic 118–139; BP diastolic 59–84; PULSE 82–108; RESP 19–24; TEMP 98.1–98.6; O2SAT 92–99
[2017-08-21] MEDS: DILTIAZEM HCL 60 MG TAB PO SCH ×4 (00:10→18:09)
[2017-08-21] MEDS: RESP: ALBUTEROL 2.5 MG/IPRATROPIUM 0.5 MG NEB (SCH) NEB ×4 (00:19→22:35)
[2017-08-21 06:17] LABS: AUTOMATED NEUTROPHIL # 12.2 TH/MM3 (1.8-7.7); BASOPHIL % 0.2 % (0.0-2.0); EOSINOPHIL % 0.2 % (0.0-4.0); HEMATOCRIT 28.3 % (39.0-51.0); HEMO FLAGS DIFF FINAL; LYMPH % 2.3 % (9.0-44.0); LYMPHOCYTE # 0.3 TH/MM3 (1.0-4.8); MEAN CELL VOLUME 94.7 FL (80.0-100.0); MEAN CORPUSCULAR HEMOGLOBIN 30.8 PG (27.0-34.0); MEAN CORPUSCULAR HGB CONC 32.5 % (32.0-36.0); MONO % 4.6 % (0.0-8.0); NEUT % 92.7 % (16.0-70.0); PLATELET COUNT 171 TH/MM3 (150-450); RED BLOOD COUNT 2.99 MIL/MM3 (4.50-5.90); RED CELL DISTRIBUTION WIDTH 21.5 % (11.6-17.2); WHITE BLOOD COUNT 13.2 TH/MM3 (4.0-11.0)
[2017-08-21 06:24] LABS: INTERNATIONAL NORMALIZED RATIO 1.1 RATIO; PROTHROMBIN TIME - PATIENT 10.8 SEC (9.8-11.6)
[2017-08-21 06:32] LABS: ALT (GPT) 37 U/L (12-78); ANION GAP 9 MEQ/L (5-15); AST (GOT) 24 U/L (15-37); BICARBONATE 22.1 MEQ/L (21.0-32.0); BLOOD UREA NITROGEN 10 MG/DL (7-18); CHLORIDE 109 MEQ/L (98-107); GLOMERULAR FILTRATION RATE 178 ML/MIN (>89); POTASSIUM 3.5 MEQ/L (3.5-5.1); SODIUM (NA) 140 MEQ/L (136-145)
[2017-08-21 06:34] LABS: ALKALINE PHOSPHATASE 279 U/L (45-117)
--- NOTE | 2017-08-21 07:15 | HHI.CCPN ---
Subjective Remarks/Hospital Course The patient is a 67-year-old male with past medical history of hypertension, metastatic colon cancer, tobacco abuse, who, about 3 weeks ago underwent low anterior resection with low colorectal anastomosis, diverting ileostomy, and resection of a segment of the left ureter with ureteral anastomosis and double- J stent placement. He presented yesterday with 5 day history of abdominal discomfort and increasing weakness. No history of high output from ileostomy. He was admitted to the colorectal surgery for dehydration and probable UTI. He was placed on ciprofloxacin and IV hydration. According to Dr. Geiger's note it was difficult dissection/resection colon mass because of the pelvic sidewall adherence and the adherence to the left ureter. A portion of ureter was resected due to possibility of tumor infiltration, and Dr. Augustine Pelayo re- anastomosed the ureter and placed left-sided double-J stent. Also 1 cm hepatic metastasis in his liver that was excised. Hospitalist consultation was requested for medical management and evaluation of tachycardia today. He was seen by Dr. Jay and was placed on infusion of Cardizem for heart rate 140s. Patient became hypotensive with systolic blood pressure early 90s. Lab work showed WBC 14.5 with 44% bands, creat increase from 1.2 to 1.4 and severely increased lactate at 8 from admission lactate of 2.6. CT of the abdomen pelvis done yesterday showed probable small bowel ileus. I evaluated the patient in the ICU. He is tachycardic in 140s, hypotensive and systolic blood pressure in mid 80s. Clinically appears very dehydrated, an NG tube was placed with approximately 3 L of some coffee-ground output. ABG shows a base excess of -10 and bicarbonate 12. I have ordered 4 liter normal saline boluses start 1 amp of bicarbonate, discontinued the LR infusion, and started bicarb gtt. Discontinue ciprofloxacin, started Zosyn every 6 hours, vancomycin 1 g 1. His elevated lactic acid and bandemia most likely secondary to severe sepsis, ileus, and severe dehydration. Serial lactate is ordered SUBJ 06/19: Lactic acid remains elevated at 6.6 despite getting 9 L of crystalloid boluses in last 24 hours. Tachycardia has improved heart rate in 110s. Remains on vasopressin at 0.04 units/min. Urine output almost 1200 mL overnight, OGT initial output was almost 3 L when placed yesterday a.m. Overnight had 550 mL of greenish brown fluid output. EGD pending today rule out gastric ischemia per Dr. Romero. Apparently Flex sig was negative post op in Dr. Geiger's office 06/20: Developed A. fib with RVR. Heart rate 200. Hemodynamically unstable, synchronized cardioversion attempted by Dr. Morales 100 200 J. Given 3 g mag sulfate and 80 mEq KCl 1, 0.5 digoxin 1 and started on amiodarone and Giorgio- Synephrine. Intubated due to hemodynamic instability. Currently remains sedated. Currently on Giorgio-Synephrine 80 mcg/m, and amiodarone. CT chest abdomen pelvis again confirms gastric and small bowel distention/ileus. UO 1800 ml in 24 hours 06/21: Remains critically ill, intubated sedated, on 100 mcg/min neosynpehrine. HR better controlled. NG output 1500, UO >1.4L. Am labs pending. Ileostomy sample positive for C Diff on PO vanc IV Flagyl. 06/22: Remains intubated sedated. Urine output 3000 mL with Bumex. NGT [address] Geiger did colonoscopy which was normal. Ileoscopy showed pseudomembranous colitis. Currently on 200 mcg/min of neosynephrine. Afib with RVR HR in 140's 06/23: Remains intubated sedated, remains in atrial fibrillation with RVR. Still requiring high doses of Giorgio-Synephrine at 190 mcg/min. UO 2.5L. chest x- ray showed bilateral large effusions. KUB shows improving small bowel distention. WBC count is slightly improved 06/24: Unable to control HR. Repeat shock x3 today. remains in atrial fibrillation with RVR rates 160-170 intermittently. Remains on amiodarone but will discontinued due to elevation of liver enzymes AST 546 ALT 158. (GI notified). Start Cardizem infusion and also give Surjit 0.5 mg 1. Platelet count continues to drop from 67 to today 45. Hematology following will start of Argatroban today. Creatinine has slightly increased to 1.3 to will DC Bumex infusion 06/25: Patient remains intubated sedated critically ill. Heart rate controlled for the first time since atrial fibrillation started. Heart rate remains 80- 90. Urine output 1200 mL in 24 hours but BUN/creatinine increasing 44/1.7. I will hydrate with 50 mL/hr normal saline for 24 hours. Transaminitis increasing AST 1300 ALT 386. Ultrasound of the liver unremarkable GI following 06/26: PTT elevated due to Argatorban/Liver failure. Dr. Hurley has DCd argatroban. SMILEY pending. Pl count is 21. Currently in sinus rhythm on Cardizem infusion. Not on any pressors. Creatinine improved to 1.2. Urine output adequate. Becomes very tachypneic on attempted CPAP. Discussed with Dr. Geiger Will Start Trickle Tube Feeds 06/27: no improvements. off pathway. thrombocytopenia persists. unable to wean from mechanical ventilation. neuro exam poor. will likely need trach. 06/28: platelets worse today. SMILEY not resulted yet. failing SBT and mental status poor. poor prognosis. will need trach and LTAC placement. 06/29: Tmax 101. Currently 99.6. Tolerating trickle tube feeds. Continues to fail spontaneous breathing trials. 06/30: Lasted 1 hour spontaneous breathing trial this AM. 2.5 hours this afternoon. Currently afebrile. Hemoglobin remained stable. 07/01: lasted 4 hours on SBT, except 15 of pressure support, so not ready clinically for extubation, and even after only 4 hours, tired out and became hypoxic and tachypneic. more awake today and following commands. will likely need tracheostomy. 07/02: new fever today, but wbc normal. per ID, will culture and observe, continue flagyl/PO vanc. otherwise no changes. no improvements. 07/03: pseudomonas in sputum and urine. increase in cough and secretions. ID following and added cefepime. still weak and failing SBTs for hypoxia and tachypnea. needs tracheostomy. will need long-term rehab and likely LTAC. 07/04: Wakes up easily, follows commands. On 5 mg/hr versed. CXR pending. UO adequate. Resume SBT. Significant weight gain. approx 15 kg up. Give Bumex 2 mg IV x1 07/05: Patient is intubated sedated with 50 g per hour of fentanyl. Urine output 3 L in [address] on scheduled Bumex. Tolerating CPAP at 15/5. bring in Viibryd, which apparently patient had been on for long time. I have resumed it. 07/06: Tolerating CPAP 10/5 better today, Wakes up and following commands. Good UO with Bumex. Chest x-ray basilar opacities essentially unchanged. Increase IV Bumex to 1 mg every 12 07/07: Extubated yesterday tolerating well. Slightly tachypneic but maintain oxygen saturation and no subjective shortness of breath. Urine output remains excellent on Bumex, 2.9L in 24 hours 07/08: Lying on bed breathing comfortably urine output excellent with increased Bumex dose. 5.8 L in 24 hours. WBC count stable. Increase activity up to stretcher chair today 07/09: Tolerating by mouth diet. Eating atleast 50%. TPN reduced by half yesterday. UO remains excellent with diuresis. Attempt TPN wean off today. Breathing comfortably except intermittent tachypnea. 07/10: Appetite better, breathing more comfortably. Off TPN. UO remains excellent. Platelet count slightly dropped to 46 from 49. I will continue steroids at Solu-Medrol 20 mg IV every 12, taper only very slowly 07/11: Afebrile. Resting comfortably in bed. On nasal cannula. 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 In brief this is a 67-year-old male with metastatic colon cancer status post colectomy with end ileostomy. He originally presented to the hospital with severe C. difficile ileitis and septic shock. He had a prolonged mechanical ventilation and ICU course. 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 Most recently has been on the floor and has had recurrent ileus. Over the last 3 days per nursing charting he is proximally 7 L positive as well as being 3 kg up from his weight a few days ago. His BNP is 245. He complains of worsening SOB and increasing oxygen requirement up to nonrebreather. On my evaluation this evening, he is tachypneic and dyspneic and respiratory distress on a nonrebreather. SPO2 89%. He denies chest pain, abdominal pain, nausea, vomiting. Per report, he did vomit a few times earlier today, and there is a high clinical suspicion by the hospitalist service that he had an aspiration event. He has an NG tube in place to suction. His most recent urine culture data suggests that his pseudomonas is now resistant to cefepime. For this reason infectious disease discontinued cefepime and started Zosyn today. Chest x-ray demonstrates bilateral patchy infiltrates either suggestive of volume overload or bilateral multifocal pneumonia. Limited review systems is otherwise negative unless stated above. For the remaining past medical history the patient, please see our rail switchman consultation note from 06/18/17. SUBJ 08/09: Patient lying on the bed slightly tachypneic but respiratory distress subjectively improved. On high flow nasal cannula 80% FiO2 been just weaned to 60%. Chest x-ray shows interval improvement in bilateral infiltrates received 40 mg IV Lasix yesterday. WBC count is improved from 23.1 to 16.3. KUB shows nonspecific bowel gas pattern 08/10: Remains on high flow nasal cannula at 50% oxygen. But appears to be breathing comfortably. Urine output adequate with Lasix yesterday also. 3.9 L in 24 hours. IR unable to place PEG yesterday, Dr. Geiger will discuss with IR today 08/11: Patient is currently back on high flow NC, at 55% oxygen. CXR unchanged. K 2.8 getting replaced, IV Lasix 40 mg x1. Plan for PEG tube placement in the OR today by Dr. Watts. 08/12: Patient currently on normal partial nonrebreather with oxygen saturation 95-96%. Chest x-rays essentially unchanged I have ordered additional 40 mg Lasix today and were placed on scheduled Lasix. WBC count is trending up but patient is currently on steroids 08/13: patient CAM+ and confused this AM. o2 requirement continues to improve. hr in the 130s, afib, irregular. 08/14: very difficult to control afib RVR overnight. patient has history of refractory RVR, which during prior acute illnesses was not rate controlled despite medication and multiple cardioversion attempts. in the past, digoxin, electrolyte replacement, and diltiazem were the most effective treatments. he has had elevated LFTs in the past which were thought to be related to amiodarone. this morning, heart rate continues to be in the 170s. blood pressure is borderline hypotensive. yesterday diltiazem was increased to 90mg po q6h. dig level pending this AM. hypokalemic. 08/15: Acute respiratory decompensation with hypoxia. Placed on 100% nonrebreather with improvement in oxygen saturation of 100%. Tachypneic, but able to communicate. Chest x-ray remains unchanged. I will give additional Lasix total 40 mg now with potassium replacement. Keep NPO, re insert NGT (will d/w CRS) and get speech for swallow eval. in and out of A. fib currently sinus with PVCs 08/16: Slightly tachypneic, WBC count slightly increased to 21.6 today from 18.6. Intermittently confused, on my exam he was oriented to person and place. Anxious tremulous. Discussed with Dr. Tran, will DC Ping Hernandez. Dr. Espinoza has DC'd Zosyn today. Will re culture. CXR appears improved. 08/17: Improved oxygenation on 4L NC today, improving mentation. UA shows evidence of UTI with yeast. Change Han, started Diflucan. Zosyn DCd yesterday. labs are pending 08/18: WBC count improving 12.9 today, slight drop in hemoglobin noted to 7.5. Remains oriented to person and place, clinically improving. Diflucan started yesterday. Han catheter replaced 08/17 08/19: Better oriented, appears calm, on room air. In sinus rhythm, tachycardic. Urine output adequate. I will reduce Solu- Medrol to 20 mg every 12 08/20: Clinically improving, but RN reports intermittent confusion ? after getting Percocet. Found on floor at night, but patient cannot recall what happened. I have DCd percocet and placed on PRN Lortab and also DCd melatonin. Labs pending. UO adequate. Lasix DCd yesterday 08/21: Intermittent agitation, currently oriented to person and some what to place. UO adequate. Patient pulled out PICC line yesterday, not getting TPN ( was only on 20 ml/hr prior to DC). I would like to avoid PICC and TPN due to increased risk of infection, including fungal infection. I discussed with Dr. Adams and she agrees Objective Vital Signs Date Time Temp Pulse Resp B/P (MAP) Pulse Ox O2 Delivery O2 Flow Rate FiO2 08/21/17 06:00 101 08/21/17 04:00 98.2 23 118/76 (90) 92 08/20/17 19:00 Room Air 08/20/17 08:31 3.00 08/19/17 10:09 21 Intake and Output 08/21/17 08/21/17 08/22/17 08:00 16:00 00:00 Intake Total 480 ml Output Total 1650 ml Balance -1170 ml Result Diagram: 08/21/17 0510 08/21/17 0510 Imaging Last Impressions Chest X-Ray 07/10/17 0600 Signed Impressions: Service Date/Time: Monday, July 10, 2017 04:39 - CONCLUSION: No significant change with persistent bilateral pulmonary parenchymal opacity with lower lung zone predominance likely worsening pulmonary edema and bilateral pleural effusions. Luis Armando Michel MD Abdomen X-Ray 07/06/17 0000 Signed Impressions: Service Date/Time: Thursday, July 06, 2017 13:44 - CONCLUSION: 1. Gaseous distention of multiple bowel loops. This has slightly improved. 2. Left-sided nephroureteral stent in good position. Sarwat Suarez MD Liver Ultrasound 06/24/17 0000 Signed Impressions: Service Date/Time: Saturday, June 24, 2017 16:38 - CONCLUSION: 1. Small volume ascites. 2. Small right effusion. Pierce Ospina Jr., MD Upper Extremity Ultrasound 06/23/17 0000 Signed Impressions: Service Date/Time: June 20:03 - CONCLUSION: Noncompressibility right cephalic vein and left basilic vein consistent with venous thrombosis Trav Hsieh MD Lower Extremity Ultrasound 06/23/17 0000 Signed Impressions: Service Date/Time: June 20:16 - CONCLUSION: Normal examination. No evidence DVT Trav Hsieh MD Chest CT 06/20/17 0000 Signed Impressions: Service Date/Time: Tuesday, June 20, 2017 07:42 - CONCLUSION: 1. Bilateral effusions and consolidative changes in both lung bases. Bao Lora MD Abdomen/Pelvis CT 06/20/17 0000 Signed Impressions: Service Date/Time: Tuesday, June 20, 2017 07:39 - CONCLUSION: 1. Dilated stomach and multiple dilated loops of small bowel, likely ileus. 2. No definite gastric volvulus. 3. Fat containing right inguinal hernia which also contains small portion of the urinary bladder and minimal fluid. 4. Left-sided nephroureteral stent in good position. 5. Bibasilar consolidation and small pleural effusions. Sarwat Suarez MD Objective Remarks GENERAL: 67-year-old male lying on bed, in no respiratory distress good saturation on RA SKIN: Warm and dry. HEENT: Normocephalic. Atraumatic. Extraocular muscles intact. NECK: The neck is supple. Trachea is midline. CHEST: Bilateral coarse breath sounds, few basilar crackles. On RA CVS: Currently sinus rhythm, mildly tachycardic, no murmurs ABDOMEN: Abdomen is soft. Ileostomy is functioning well, good output EXTREMITIES: No pedal edema or cyanosis. NEURO: Alert awake anxious oriented to person place. Moves all extremities but weak, following commands. Hand tremors improving Urinary Catheter: Yes Assessment to: Continue A/P Assessment and Plan Assessment: This is a 67-year-old male with colon cancer and recurrent pseudomonal infections who presents with recurrent respiratory distress, acute hypoxic respiratory failure. Now back in afib RVR which in the past has been very refractory. will aggressively replace electrolytes. Delirium persists, but improving. Critically ill now showing signs of improvement. Getting Diflucan for Diana UTI Active Problems: Acute hypoxemic respiratory failure-resolved COPD with exacerbation Aspiration pneumonia Diana UTI Pulmonary Edema/Acute intravascular volume overload-improved HCAP with Pseudomonas Agitated Delirium - improving Atrial fibrillation with intermittent rapid ventricular response, now in sinus tach C Diff ileitis UTI with Pseudomonas s/p treatment s/p Pseudomonas bacteremia s/p treatment s/p Partial resection of the left ureter with anastomosis and placement of double-J stent Recurrent ileus Acute protein calorie malnutrition- severe. Metastatic colon cancer s/p resection Malnutrition with weight loss Plan: Respiratory status improved, acceptable oxygen saturations on RA today. Chest x-ray 08/16 on my review of improved infiltrates, repeat CXR today Delirium improving, UA and culture UTI with diana. Diflucan started 08/17, Han replaced 08/17 Use when necessary Haldol and low dose Ativan. Continue Vibrrid. DC Melatonin. Discontinued Zyprexa Reglan 08/17. DC Perocet, Lortab 5/325 PRN pain 5-10 Continue by mouth vancomycin, continue Diflucan for Diana UTI. (IV Zosyn and IV Flagyl discontinued per ID 08/16) Previous Pseudomonas bacteremia UTI and HCAP Lasix DCd on 08/19/17 Prednisone 20 mg PO daily. Continue Symbicort, Spiriva, EzPAP, acapella, DuoNeb' s Relative contraindication of BiPAP being high aspiration risk, ileus, no absolute contraindication IR, GI unable to place PEG tube. D/W Dr. Pelayo re: ureteral stent removal- recommended postponing until more stable Cardizem to 90 mg po q6h. PO Digoxin. Metoprolol 5mg iv q4h PRN for HR control. NSR Stopped amio infusion due to previous liver enzyme elevation Aggressively replace electrolytes, target mg > 2.0, k > 4.0 Lovenox for DVT prophylaxis, famotidine for GI prophylaxis PT/OT up to chair daily Regular basic diet. TPN 20 ml per hour. Megace for appetite stimulation Cathectic, continues to lose weight. Dietary consulted for recommendations, ensure added Patient pulled out PICC line yesterday, not getting TPN (was only on 20 ml/hr prior to DC). Avoid PICC replacement and TPN due to increased risk of infection, including fungal infection. I discussed with Dr. Adams and she agrees Level 2 Continue in ICU due to delirium. Shiva Segovia MD Aug 21, 2017 07:15
--- NOTE | 2017-08-21 07:50 | RADRPT ---
EXAM DATE/TIME: 08/21/2017 07:21 [facility] COMPARISON: CHEST SINGLE AP, August 18, 2017, 2:38. INDICATIONS : Shortness of breath. MEDICAL HISTORY : Hypertension. Carcinoma, colon SURGICAL HISTORY : Colon resection. Appendectomy. ENCOUNTER: Initial ACUITY: 1 day PAIN SCORE: Non-responsive. LOCATION: Bilateral chest FINDINGS: The heart is stable. Bilateral perihilar patchiness is noted consistent with probable pneumonia. Clin ical correlation is recommended. CONCLUSION: Bilateral perihilar patchiness consistent with probable pneumonia. Clinical correlation is recommende calvin Israel MD on August 21, 2017 at 7:46 Board Certified Radiologist. This report was verified electronically.
--- NOTE | 2017-08-21 07:56 | HHI.PR ---
Subjective Remarks Failure to thrive no confusion, still unwilling to eat pulled picc line last night Objective Vital Signs Date Time Temp Pulse Resp B/P (MAP) Pulse Ox O2 Delivery O2 Flow Rate FiO2 08/21/17 06:00 101 08/21/17 04:00 108 08/21/17 04:00 98.2 108 23 118/76 (90) 92 08/21/17 02:00 108 08/21/17 00:00 98.6 106 24 129/65 (86) 94 08/21/17 00:00 106 08/20/17 22:00 99 08/20/17 21:03 95 08/20/17 20:00 98.3 100 21 132/66 (88) 94 08/20/17 20:00 106 08/20/17 19:00 100 Room Air 08/20/17 18:00 98 08/20/17 16:00 98.3 104 25 101/79 (86) 92 08/20/17 16:00 104 08/20/17 14:00 106 08/20/17 12:00 98.6 100 24 132/62 (85) 94 08/20/17 12:00 100 08/20/17 10:00 96 08/20/17 08:31 95 Nasal Cannula 3.00 08/20/17 08:00 92 08/20/17 08:00 98.3 92 23 108/64 (79) 92 I/O 08/20/17 08/20/17 08/20/17 08/21/17 08/21/17 08/21/17 07:00 15:00 23:00 07:00 15:00 23:00 Intake Total 400 ml 720 ml 480 ml Output Total 1200 ml 2000 ml 1650 ml Balance -800 ml -1280 ml -1170 ml Intake Oral 400 ml 720 ml 480 ml Output Urine Total 1000 ml 1650 ml 1350 ml Stool Total 200 ml 350 ml 300 ml Drainage Total 0 ml 0 ml 0 ml Result Diagram: 08/21/17 0510 08/21/1710 Objective Remarks Cachectic Abdomen soft, nondistended wound healed Stoma pink, prolapsed Assessment and Plan Assessment and Plan Agree with leave picc line out OK to bring food from home Encouraged PO Karin Adams MD Aug 21, 2017 07:56
[2017-08-21] MEDS: INSULIN ASPART SUPPLEMENTAL SCALE SQ SCH ×4 (08:00→21:00)
[2017-08-21] MEDS: FAMOTIDINE 20 MG TAB PO SCH ×3 (09:00→20:48)
[2017-08-21] MEDS: predniSONE 20 MG TAB PO SCH (09:00)
[2017-08-21] MEDS: MEGESTROL ACETATE SUSP 400 MG/10 ML CUP PO SCH ×2 (09:00→09:42)
[2017-08-21] MEDS: VANCOMYCIN 500 MG VIAL (FOR ORAL USE ONLY) PO SCH ×4 (09:42→20:48)
[2017-08-21] MEDS: THIAMINE HCL 100 MG TAB PO SCH (09:42)
[2017-08-21] MEDS: ENOXAPARIN SODIUM 40 MG/0.4 ML SYRINGE SQ SCH (09:42)
[2017-08-21] MEDS: DIGOXIN 0.125 MG TAB PO SCH (09:43)
[2017-08-21] MEDS: BUDESONIDE-FORMOTEROL 160/4.5 MCG INHALER INH SCH ×2 (09:43→20:48)
[2017-08-21] MEDS: TIOTROPIUM BROMIDE 18 MCG INH INH SCH (09:43)
[2017-08-21] MEDS: FLUCONAZOLE 100 MG TAB PO SCH (10:14)
[2017-08-21] MEDS: TAMSULOSIN HCL 0.4 MG CAP PO SCH (20:48)
[2017-08-21] MEDS: VIIBRYD 40 MG PO SCH (21:00)
[2017-08-22] VITALS (12 sets, daily range): BP systolic 119–138; BP diastolic 60–64; PULSE 94–110; RESP 21–30; TEMP 98–98.6; O2SAT 92–100
[2017-08-22] MEDS: DILTIAZEM HCL 60 MG TAB PO SCH ×4 (00:03→18:00)
[2017-08-22] MEDS: HALOPERIDOL LACTATE 5 MG/ML AMP IV PRN (01:18)
[2017-08-22] MEDS: RESP: ALBUTEROL 2.5 MG/IPRATROPIUM 0.5 MG NEB (SCH) NEB ×2 (07:37→16:00)
--- NOTE | 2017-08-22 07:56 | HHI.CCPN ---
Subjective Remarks/Hospital Course The patient is a 67-year-old male with past medical history of hypertension, metastatic colon cancer, tobacco abuse, who, about 3 weeks ago underwent low anterior resection with low colorectal anastomosis, diverting ileostomy, and resection of a segment of the left ureter with ureteral anastomosis and double- J stent placement. He presented yesterday with 5 day history of abdominal discomfort and increasing weakness. No history of high output from ileostomy. He was admitted to the colorectal surgery for dehydration and probable UTI. He was placed on ciprofloxacin and IV hydration. According to Dr. Geiger's note it was difficult dissection/resection colon mass because of the pelvic sidewall adherence and the adherence to the left ureter. A portion of ureter was resected due to possibility of tumor infiltration, and Dr. Augustine Pelayo re- anastomosed the ureter and placed left-sided double-J stent. Also 1 cm hepatic metastasis in his liver that was excised. Hospitalist consultation was requested for medical management and evaluation of tachycardia today. He was seen by Dr. Jay and was placed on infusion of Cardizem for heart rate 140s. Patient became hypotensive with systolic blood pressure early 90s. Lab work showed WBC 14.5 with 44% bands, creat increase from 1.2 to 1.4 and severely increased lactate at 8 from admission lactate of 2.6. CT of the abdomen pelvis done yesterday showed probable small bowel ileus. I evaluated the patient in the ICU. He is tachycardic in 140s, hypotensive and systolic blood pressure in mid 80s. Clinically appears very dehydrated, an NG tube was placed with approximately 3 L of some coffee-ground output. ABG shows a base excess of -10 and bicarbonate 12. I have ordered 4 liter normal saline boluses start 1 amp of bicarbonate, discontinued the LR infusion, and started bicarb gtt. Discontinue ciprofloxacin, started Zosyn every 6 hours, vancomycin 1 g 1. His elevated lactic acid and bandemia most likely secondary to severe sepsis, ileus, and severe dehydration. Serial lactate is ordered SUBJ 06/19: Lactic acid remains elevated at 6.6 despite getting 9 L of crystalloid boluses in last 24 hours. Tachycardia has improved heart rate in 110s. Remains on vasopressin at 0.04 units/min. Urine output almost 1200 mL overnight, OGT initial output was almost 3 L when placed yesterday a.m. Overnight had 550 mL of greenish brown fluid output. EGD pending today rule out gastric ischemia per Dr. Romero. Apparently Flex sig was negative post op in Dr. Geiger's office 06/20: Developed A. fib with RVR. Heart rate 200. Hemodynamically unstable, synchronized cardioversion attempted by Dr. Morales 100 200 J. Given 3 g mag sulfate and 80 mEq KCl 1, 0.5 digoxin 1 and started on amiodarone and Giorgio- Synephrine. Intubated due to hemodynamic instability. Currently remains sedated. Currently on Giorgio-Synephrine 80 mcg/m, and amiodarone. CT chest abdomen pelvis again confirms gastric and small bowel distention/ileus. UO 1800 ml in 24 hours 06/21: Remains critically ill, intubated sedated, on 100 mcg/min neosynpehrine. HR better controlled. NG output 1500, UO >1.4L. Am labs pending. Ileostomy sample positive for C Diff on PO vanc IV Flagyl. 06/22: Remains intubated sedated. Urine output 3000 mL with Bumex. NGT [address] Geiger did colonoscopy which was normal. Ileoscopy showed pseudomembranous colitis. Currently on 200 mcg/min of neosynephrine. Afib with RVR HR in 140's 06/23: Remains intubated sedated, remains in atrial fibrillation with RVR. Still requiring high doses of Giorgio-Synephrine at 190 mcg/min. UO 2.5L. chest x- ray showed bilateral large effusions. KUB shows improving small bowel distention. WBC count is slightly improved 06/24: Unable to control HR. Repeat shock x3 today. remains in atrial fibrillation with RVR rates 160-170 intermittently. Remains on amiodarone but will discontinued due to elevation of liver enzymes AST 546 ALT 158. (GI notified). Start Cardizem infusion and also give Surjit 0.5 mg 1. Platelet count continues to drop from 67 to today 45. Hematology following will start of Argatroban today. Creatinine has slightly increased to 1.3 to will DC Bumex infusion 06/25: Patient remains intubated sedated critically ill. Heart rate controlled for the first time since atrial fibrillation started. Heart rate remains 80- 90. Urine output 1200 mL in 24 hours but BUN/creatinine increasing 44/1.7. I will hydrate with 50 mL/hr normal saline for 24 hours. Transaminitis increasing AST 1300 ALT 386. Ultrasound of the liver unremarkable GI following 06/26: PTT elevated due to Argatorban/Liver failure. Dr. Hurley has DCd argatroban. SMILEY pending. Pl count is 21. Currently in sinus rhythm on Cardizem infusion. Not on any pressors. Creatinine improved to 1.2. Urine output adequate. Becomes very tachypneic on attempted CPAP. Discussed with Dr. Geiger Will Start Trickle Tube Feeds 06/27: no improvements. off pathway. thrombocytopenia persists. unable to wean from mechanical ventilation. neuro exam poor. will likely need trach. 06/28: platelets worse today. SMILEY not resulted yet. failing SBT and mental status poor. poor prognosis. will need trach and LTAC placement. 06/29: Tmax 101. Currently 99.6. Tolerating trickle tube feeds. Continues to fail spontaneous breathing trials. 06/30: Lasted 1 hour spontaneous breathing trial this AM. 2.5 hours this afternoon. Currently afebrile. Hemoglobin remained stable. 07/01: lasted 4 hours on SBT, except 15 of pressure support, so not ready clinically for extubation, and even after only 4 hours, tired out and became hypoxic and tachypneic. more awake today and following commands. will likely need tracheostomy. 07/02: new fever today, but wbc normal. per ID, will culture and observe, continue flagyl/PO vanc. otherwise no changes. no improvements. 07/03: pseudomonas in sputum and urine. increase in cough and secretions. ID following and added cefepime. still weak and failing SBTs for hypoxia and tachypnea. needs tracheostomy. will need long-term rehab and likely LTAC. 07/04: Wakes up easily, follows commands. On 5 mg/hr versed. CXR pending. UO adequate. Resume SBT. Significant weight gain. approx 15 kg up. Give Bumex 2 mg IV x1 07/05: Patient is intubated sedated with 50 g per hour of fentanyl. Urine output 3 L in [address] on scheduled Bumex. Tolerating CPAP at 15/5. bring in Viibryd, which apparently patient had been on for long time. I have resumed it. 07/06: Tolerating CPAP 10/5 better today, Wakes up and following commands. Good UO with Bumex. Chest x-ray basilar opacities essentially unchanged. Increase IV Bumex to 1 mg every 12 07/07: Extubated yesterday tolerating well. Slightly tachypneic but maintain oxygen saturation and no subjective shortness of breath. Urine output remains excellent on Bumex, 2.9L in 24 hours 07/08: Lying on bed breathing comfortably urine output excellent with increased Bumex dose. 5.8 L in 24 hours. WBC count stable. Increase activity up to stretcher chair today 07/09: Tolerating by mouth diet. Eating atleast 50%. TPN reduced by half yesterday. UO remains excellent with diuresis. Attempt TPN wean off today. Breathing comfortably except intermittent tachypnea. 07/10: Appetite better, breathing more comfortably. Off TPN. UO remains excellent. Platelet count slightly dropped to 46 from 49. I will continue steroids at Solu-Medrol 20 mg IV every 12, taper only very slowly 07/11: Afebrile. Resting comfortably in bed. On nasal cannula. Reviewed vascular note does not want sacral decubitus debridement/ Subjective RECONSULT NOTE : 08/08: This is a patient well-known to the [facility] service. In brief this is a 67-year-old male with metastatic colon cancer status post colectomy with end ileostomy. He originally presented to the hospital with severe C. difficile ileitis and septic shock. He had a prolonged mechanical ventilation and ICU course. 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 Most recently has been on the floor and has had recurrent ileus. Over the last 3 days per nursing charting he is proximally 7 L positive as well as being 3 kg up from his weight a few days ago. His BNP is 245. He complains of worsening SOB and increasing oxygen requirement up to nonrebreather. On my evaluation this evening, he is tachypneic and dyspneic and respiratory distress on a nonrebreather. SPO2 89%. He denies chest pain, abdominal pain, nausea, vomiting. Per report, he did vomit a few times earlier today, and there is a high clinical suspicion by the hospitalist service that he had an aspiration event. He has an NG tube in place to suction. His most recent urine culture data suggests that his pseudomonas is now resistant to cefepime. For this reason infectious disease discontinued cefepime and started Zosyn today. Chest x-ray demonstrates bilateral patchy infiltrates either suggestive of volume overload or bilateral multifocal pneumonia. Limited review systems is otherwise negative unless stated above. For the remaining past medical history the patient, please see our [facility] consultation note from 06/18/17. SUBJ 08/09: Patient lying on the bed slightly tachypneic but respiratory distress subjectively improved. On high flow nasal cannula 80% FiO2 been just weaned to 60%. Chest x-ray shows interval improvement in bilateral infiltrates received 40 mg IV Lasix yesterday. WBC count is improved from 23.1 to 16.3. KUB shows nonspecific bowel gas pattern 08/10: Remains on high flow nasal cannula at 50% oxygen. But appears to be breathing comfortably. Urine output adequate with Lasix yesterday also. 3.9 L in 24 hours. IR unable to place PEG yesterday, Dr. Geiger will discuss with IR today 08/11: Patient is currently back on high flow NC, at 55% oxygen. CXR unchanged. K 2.8 getting replaced, IV Lasix 40 mg x1. Plan for PEG tube placement in the OR today by Dr. Watts. 08/12: Patient currently on normal partial nonrebreather with oxygen saturation 95-96%. Chest x-rays essentially unchanged I have ordered additional 40 mg Lasix today and were placed on scheduled Lasix. WBC count is trending up but patient is currently on steroids 08/13: patient CAM+ and confused this AM. o2 requirement continues to improve. hr in the 130s, afib, irregular. 08/14: very difficult to control afib RVR overnight. patient has history of refractory RVR, which during prior acute illnesses was not rate controlled despite medication and multiple cardioversion attempts. in the past, digoxin, electrolyte replacement, and diltiazem were the most effective treatments. he has had elevated LFTs in the past which were thought to be related to amiodarone. this morning, heart rate continues to be in the 170s. blood pressure is borderline hypotensive. yesterday diltiazem was increased to 90mg po q6h. dig level pending this AM. hypokalemic. 08/15: Acute respiratory decompensation with hypoxia. Placed on 100% nonrebreather with improvement in oxygen saturation of 100%. Tachypneic, but able to communicate. Chest x-ray remains unchanged. I will give additional Lasix total 40 mg now with potassium replacement. Keep NPO, re insert NGT (will d/w CRS) and get speech for swallow eval. in and out of A. fib currently sinus with PVCs 08/16: Slightly tachypneic, WBC count slightly increased to 21.6 today from 18.6. Intermittently confused, on my exam he was oriented to person and place. Anxious tremulous. Discussed with Dr. Tran, will DC Ping Hernandez. Dr. Espinzoa has DC'd Zosyn today. Will re culture. CXR appears improved. 08/17: Improved oxygenation on 4L NC today, improving mentation. UA shows evidence of UTI with yeast. Change Han, started Diflucan. Zosyn DCd yesterday. labs are pending 08/18: WBC count improving 12.9 today, slight drop in hemoglobin noted to 7.5. Remains oriented to person and place, clinically improving. Diflucan started yesterday. Han catheter replaced 08/17 08/19: Better oriented, appears calm, on room air. In sinus rhythm, tachycardic. Urine output adequate. I will reduce Solu- Medrol to 20 mg every 12 08/20: Clinically improving, but RN reports intermittent confusion ? after getting Percocet. Found on floor at night, but patient cannot recall what happened. I have DCd percocet and placed on PRN Lortab and also DCd melatonin. Labs pending. UO adequate. Lasix DCd yesterday 08/21: Intermittent agitation, currently oriented to person and some what to place. UO adequate. Patient pulled out PICC line yesterday, not getting TPN ( was only on 20 ml/hr prior to DC). I would like to avoid PICC and TPN due to increased risk of infection, including fungal infection. I discussed with Dr. Adams and she agrees 08/22: Gets confused at night. Today am better oriented. He knows my name, he is also oriented to person and place also now since August. Lab work is pending today. Chest x-ray from yesterday shows perihilar infiltrates but without evidence of pneumonia clinically. I will check CT of the chest and brain to evaluate for metastatic disease Objective Vital Signs Date Time Temp Pulse Resp B/P (MAP) Pulse Ox O2 Delivery O2 Flow Rate FiO2 08/22/17 07:38 96 21 08/22/17 06:00 100 08/22/17 04:00 98.2 21 126/60 (82) 08/21/17 19:00 Room Air 08/21/17 08:26 3.00 Intake and Output 08/22/17 08/22/17 08/23/17 08:00 16:00 00:00 Intake Total 240 ml Output Total 625 ml Balance -385 ml Result Diagram: 08/21/17 0510 08/21/17 0510 Imaging Last Impressions Chest X-Ray 07/10/17 0600 Signed Impressions: Service Date/Time: Monday, July 10, 2017 04:39 - CONCLUSION: No significant change with persistent bilateral pulmonary parenchymal opacity with lower lung zone predominance likely worsening pulmonary edema and bilateral pleural effusions. Luis Armando Michel MD Abdomen X-Ray 07/06/17 0000 Signed Impressions: Service Date/Time: Thursday, July 06, 2017 13:44 - CONCLUSION: 1. Gaseous distention of multiple bowel loops. This has slightly improved. 2. Left-sided nephroureteral stent in good position. Sarwat Suarez MD Liver Ultrasound 06/24/17 0000 Signed Impressions: Service Date/Time: Saturday, June 24, 2017 16:38 - CONCLUSION: 1. Small volume ascites. 2. Small right effusion. Pierce Ospina Jr., MD Upper Extremity Ultrasound 06/23/17 0000 Signed Impressions: Service Date/Time: June 20:03 - CONCLUSION: Noncompressibility right cephalic vein and left basilic vein consistent with venous thrombosis Trav Hsieh MD Lower Extremity Ultrasound 06/23/17 0000 Signed Impressions: Service Date/Time: June 20:16 - CONCLUSION: Normal examination. No evidence DVT Trav Hsieh MD Chest CT 06/20/17 0000 Signed Impressions: Service Date/Time: Tuesday, June 20, 2017 07:42 - CONCLUSION: 1. Bilateral effusions and consolidative changes in both lung bases. Bao Lora MD Abdomen/Pelvis CT 06/20/17 0000 Signed Impressions: Service Date/Time: Tuesday, June 20, 2017 07:39 - CONCLUSION: 1. Dilated stomach and multiple dilated loops of small bowel, likely ileus. 2. No definite gastric volvulus. 3. Fat containing right inguinal hernia which also contains small portion of the urinary bladder and minimal fluid. 4. Left-sided nephroureteral stent in good position. 5. Bibasilar consolidation and small pleural effusions. Sarwat Suarez MD Objective Remarks GENERAL: 67-year-old male lying on bed, in no respiratory distress good saturation on RA, intermittently confused SKIN: Warm and dry. HEENT: Normocephalic. Atraumatic. Extraocular muscles intact. NECK: The neck is supple. Trachea is midline. CHEST: Bilateral coarse breath sounds, few basilar crackles. On RA CVS: Currently sinus rhythm, tachycardic, no murmurs ABDOMEN: Abdomen is soft. Ileostomy is functioning well, good output EXTREMITIES: No pedal edema or cyanosis. NEURO: Alert awake anxious oriented to person place, knows the month. Moves all extremities but weak, following commands. Less tremulous A/P Assessment and Plan Assessment: This is a 67-year-old male with colon cancer and recurrent pseudomonal infections who presented back with recurrent respiratory distress, acute hypoxic respiratory failure. Afib RVR which in the past has been very refractory. will aggressively replace electrolytes. Delirium persists, predominantly at night. Getting Diflucan for Diana UTI Active Problems: Acute hypoxemic respiratory failure-resolved COPD with exacerbation Aspiration pneumonia Persistent bilateral hilar and infrahilar infiltrates, rule out metastatic disease Diana UTI Pulmonary Edema-improved HCAP with Pseudomonas status post treatment Agitated Delirium Atrial fibrillation with intermittent rapid ventricular response, now in sinus tach C Diff ileitis UTI with Pseudomonas s/p treatment s/p Pseudomonas bacteremia s/p treatment s/p Partial resection of the left ureter with anastomosis and placement of double-J stent Recurrent ileus Acute protein calorie malnutrition- severe. Metastatic colon cancer s/p resection Malnutrition with weight loss History of ITP Plan: Continues to show delirium predominantly at night. Add Seroquel 25 mg daily at bedtime. Check CT of the brain to rule out metastatic disease CT of the chest to rule out metastatic disease. Respiratory status improved, acceptable oxygen saturations on RA. Check CEA UTI with diana. Diflucan started 08/17, Han replaced 08/17 Use when necessary Haldol and low dose Ativan. Continue Vibrrid. DCd Melatonin. Discontinued Zyprexa Reglan 08/17. DCd Perocet, Lortab 5/325 PRN pain 5-10 Continue by mouth vancomycin, continue Diflucan for Diana UTI. (IV Zosyn and IV Flagyl discontinued per ID 08/16) Previous Pseudomonas bacteremia UTI and HCAP, status post treatment Lasix DCd on 08/19/17 Prednisone 20 mg PO daily. Continue Symbicort, Spiriva, EzPAP, acapella, DuoNeb' s Relative contraindication of BiPAP being high aspiration risk, ileus, no absolute contraindication IR, GI unable to place PEG tube. D/W Dr. Pelayo re: ureteral stent removal- recommended postponing until more stable Cardizem to 90 mg po q6h. PO Digoxin. Metoprolol 5mg iv q4h PRN for HR control. NSR Stopped amio infusion due to previous liver enzyme elevation. AVOID AMIO Aggressively replace electrolytes, target mg > 2.0, k > 4.0 Lovenox for DVT prophylaxis, famotidine for GI prophylaxis PT/OT up to chair daily Regular basic diet. Megace for appetite stimulation. Off TPN Cathectic, continues to lose weight. Dietary consulted for recommendations, ensure added Avoid PICC replacement and TPN due to increased risk of infection, including fungal infection. I discussed with Dr. Adams 08/21 and she agrees Level 3 Continue in ICU due to delirium. Metastatic workup ordered, check CT brain CT chest, check CEA level Shiva Segovia MD Aug 22, 2017 07:56
[2017-08-22] MEDS: INSULIN ASPART SUPPLEMENTAL SCALE SQ SCH ×4 (08:00→21:00)
[2017-08-22] MEDS: ENOXAPARIN SODIUM 40 MG/0.4 ML SYRINGE SQ SCH (08:00)
[2017-08-22] MEDS: THIAMINE HCL 100 MG TAB PO SCH (08:00)
[2017-08-22] MEDS: MEGESTROL ACETATE SUSP 400 MG/10 ML CUP PO SCH (08:00)
[2017-08-22] MEDS: predniSONE 20 MG TAB PO SCH (08:00)
[2017-08-22] MEDS: DIGOXIN 0.125 MG TAB PO SCH (08:00)
[2017-08-22] MEDS: VANCOMYCIN 500 MG VIAL (FOR ORAL USE ONLY) PO SCH ×3 (08:01→18:00)
[2017-08-22] MEDS: FAMOTIDINE 20 MG TAB PO SCH ×2 (08:01→21:48)
[2017-08-22] MEDS: BUDESONIDE-FORMOTEROL 160/4.5 MCG INHALER INH SCH ×2 (09:00→21:49)
[2017-08-22] MEDS: TIOTROPIUM BROMIDE 18 MCG INH INH SCH (09:00)
[2017-08-22 09:37] LABS: AUTOMATED NEUTROPHIL # 11.9 TH/MM3 (1.8-7.7); BASOPHIL # 0.2 TH/MM3 (0-0.2); BASOPHIL % 1.4 % (0.0-2.0); EOSINOPHIL % 0.4 % (0.0-4.0); HEMO FLAGS DIFF FINAL; LYMPHOCYTE # 0.4 TH/MM3 (1.0-4.8); MEAN CELL VOLUME 91.8 FL (80.0-100.0); MEAN CORPUSCULAR HEMOGLOBIN 30.2 PG (27.0-34.0); MEAN CORPUSCULAR HGB CONC 32.9 % (32.0-36.0); NEUT % 88.2 % (16.0-70.0); PLATELET COUNT 178 TH/MM3 (150-450); RED BLOOD COUNT 2.73 MIL/MM3 (4.50-5.90); RED CELL DISTRIBUTION WIDTH 20.9 % (11.6-17.2); WHITE BLOOD COUNT 13.5 TH/MM3 (4.0-11.0)
[2017-08-22 10:01] LABS: ANION GAP 11 MEQ/L (5-15); AST (GOT) 20 U/L (15-37); BICARBONATE 20.8 MEQ/L (21.0-32.0); BLOOD UREA NITROGEN 11 MG/DL (7-18); CHLORIDE 107 MEQ/L (98-107); GLOMERULAR FILTRATION RATE 112 ML/MIN (>89); MAGNESIUM 1.9 MG/DL (1.5-2.5); POTASSIUM 3.9 MEQ/L (3.5-5.1); SODIUM (NA) 139 MEQ/L (136-145)
[2017-08-22 10:02] LABS: ALT (GPT) 36 U/L (12-78)
[2017-08-22 10:05] LABS: ALKALINE PHOSPHATASE 276 U/L (45-117); TOTAL BILIRUBIN ADULT 0.8 MG/DL (0.2-1.0)
--- NOTE | 2017-08-22 10:34 | HHI.PR ---
Subjective Remarks Pt not confused. Awake alert and oriented. Looks better. WBC decreased. Drinking Ensure Objective Vital Signs Date Time Temp Pulse Resp B/P (MAP) Pulse Ox O2 Delivery O2 Flow Rate FiO2 08/22/17 10:00 100 08/22/17 08:00 110 08/22/17 08:00 98.5 110 25 130/62 (84) 100 08/22/17 07:38 96 21 08/22/17 07:00 100 Room Air 08/22/17 06:00 100 08/22/17 04:00 98.2 100 21 126/60 (82) 93 08/22/17 04:00 100 08/22/17 02:00 101 08/22/17 00:00 94 08/22/17 00:00 98.0 94 30 121/64 (83) 96 08/21/17 22:00 102 08/21/17 20:00 100 08/21/17 20:00 98.1 100 24 129/68 (88) 98 08/21/17 19:00 99 Room Air 08/21/17 18:00 107 08/21/17 16:00 106 08/21/17 16:00 98.1 106 19 118/84 (95) 99 08/21/17 14:00 88 08/21/17 12:00 82 08/21/17 12:00 98.1 82 19 134/74 (94) 92 I/O 08/21/17 08/21/17 08/21/17 08/22/17 08/22/17 08/22/17 07:00 15:00 23:00 07:00 15:00 23:00 Intake Total 480 ml 240 ml 240 ml Output Total 1650 ml 650 ml 625 ml Balance -1170 ml -410 ml -385 ml Intake Oral 480 ml 240 ml 240 ml Output Urine Total 1350 ml 500 ml 600 ml Stool Total 300 ml 150 ml 25 ml Drainage Total 0 ml 0 ml 0 ml Result Diagram: 08/22/1785808/22/17858 Objective Remarks VS-S Gen:.Looks better. Says he's eating better Abd: Soft,flat,Ileostomy functioning. Large stool and gas . Assessment and Plan Assessment and Plan Decubitus Poor nutrition. Severe deconditioning C Diff negative. No diarrhea. Alisha UTI Needs aggressive PT and Nutrition to fully heal decubitus and recover Continue PO vancomycin Should have PT everyday including weekends. Needs position changes for Pulmonary toilet Continue Lasix Passed swallowing eval. D/W Dr Segovia Alisha UTI Calorie counts Luca Geiger MD Aug 22, 2017 10:34
--- NOTE | 2017-08-22 11:39 | HHI.IDPN ---
Note Infectious Disease Note Patient is alert. Was up in stretcher. Noted to be confused. Afebrile. WBC still elevated but lower. On O2 via nasal canula. Admitted to the hospital with weakness, abdominal pain and nausea. The patient is status post anterior resection of colon and rectal areas and anastomosis along with a diverting ileostomy and also resection of a segment of left ureter with ureteral anastomosis and double-J stent placement three weeks prior. PAST MEDICAL HISTORY: 1. Hypertension. 2. Left knee surgery. 3. Metastatic colon cancer status post resection and colo-anal anastomosis and also resection and re-anastomosis of the left ureter with double-J stent placement. ALLERGIES: CODEINE. ABX: Vancomycin PO. Diflucan PO. OBJECTIVE: Vital Signs Date Time Temp Pulse Resp B/P (MAP) Pulse Ox O2 Delivery O2 Flow Rate FiO2 08/22/17 10:00 100 08/22/17 08:00 110 08/22/17 08:00 98.5 110 25 130/62 (84) 100 08/22/17 07:38 96 21 08/22/17 07:00 100 Room Air 08/22/17 06:00 100 08/22/17 04:00 98.2 100 21 126/60 (82) 93 08/22/17 04:00 100 08/22/17 02:00 101 08/22/17 00:00 94 08/22/17 00:00 98.0 94 30 121/64 (83) 96 08/21/17 22:00 102 08/21/17 20:00 100 08/21/17 20:00 98.1 100 24 129/68 (88) 98 08/21/17 19:00 99 Room Air 08/21/17 18:00 107 08/21/17 16:00 106 08/21/17 16:00 98.1 106 19 118/84 (95) 99 08/21/17 14:00 88 08/21/17 12:00 82 08/21/17 12:00 98.1 82 19 134/74 (94) 92 Laboratory Tests Test 08/21/17 05:10 08/22/17 08:59 White Blood Count 13.2 TH/MM3 13.5 TH/MM3 Red Blood Count 2.99 MIL/MM3 2.73 MIL/MM3 Hemoglobin 9.2 GM/DL 8.2 GM/DL Hematocrit 28.3 % 25.0 % Mean Corpuscular Volume 94.7 FL 91.8 FL Mean Corpuscular Hemoglobin 30.8 PG 30.2 PG Mean Corpuscular Hemoglobin Concent 32.5 % 32.9 % Red Cell Distribution Width 21.5 % 20.9 % Platelet Count 171 TH/MM3 178 TH/MM3 Mean Platelet Volume 9.6 FL 9.7 FL Neutrophils (%) (Auto) 92.7 % 88.2 % Lymphocytes (%) (Auto) 2.3 % 3.0 % Monocytes (%) (Auto) 4.6 % 7.0 % Eosinophils (%) (Auto) 0.2 % 0.4 % Basophils (%) (Auto) 0.2 % 1.4 % Neutrophils # (Auto) 12.2 TH/MM3 11.9 TH/MM3 Lymphocytes # (Auto) 0.3 TH/MM3 0.4 TH/MM3 Monocytes # (Auto) 0.6 TH/MM3 0.9 TH/MM3 Eosinophils # (Auto) 0.0 TH/MM3 0.0 TH/MM3 Basophils # (Auto) 0.0 TH/MM3 0.2 TH/MM3 CBC Comment DIFF FINAL DIFF FINAL Differential Comment Laboratory Tests Test 08/21/17 05:10 08/22/17 08:59 Blood Urea Nitrogen 10 MG/DL 11 MG/DL Creatinine 0.47 MG/DL 0.70 MG/DL Random Glucose 86 MG/DL 154 MG/DL Total Protein 5.2 GM/DL 5.5 GM/DL Albumin 1.6 GM/DL 1.6 GM/DL Calcium Level 7.7 MG/DL 7.6 MG/DL Phosphorus Level 1.9 MG/DL 1.6 MG/DL Magnesium Level 2.0 MG/DL 1.9 MG/DL Alkaline Phosphatase 279 U/L 276 U/L Aspartate Amino Transf (AST/SGOT) 24 U/L 20 U/L Alanine Aminotransferase (ALT/SGPT) 37 U/L 36 U/L Total Bilirubin 1.0 MG/DL 0.8 MG/DL Sodium Level 140 MEQ/L 139 MEQ/L Potassium Level 3.5 MEQ/L 3.9 MEQ/L Chloride Level 109 MEQ/L 107 MEQ/L Carbon Dioxide Level 22.1 MEQ/L 20.8 MEQ/L Anion Gap 9 MEQ/L 11 MEQ/L Estimat Glomerular Filtration Rate 178 ML/MIN 112 ML/MIN Triglycerides Level 164 MG/DL Carcinoembryonic Antigen 5.3 NG/ML Microbiology Date/Time Source Procedure Growth Status 08/16/17 16:15 Urine Catheterized Urine Urine Culture - Final Diana Albicans Complete IMAGING: Chest X-Ray 08/21/17 0000 Signed Impressions: Service Date/Time: Monday, August 21, 2017 07:21 - CONCLUSION: Bilateral perihilar patchiness consistent with probable pneumonia. Clinical correlation is recommended. Yefri Israel MD Chest X-Ray 08/18/17 0600 Signed Impressions: Service Date/Time: August 02:38 - CONCLUSION: Stable patchy partially consolidative bilateral lower lung infiltrates. Pierce Groves MD PHYSICAL EXAMINATION: GENERAL: No acute distress. HEENT: No icterus. Oropharynx mucosa dry. NECK: Supple. No swelling. LUNGS: Decreased breath sounds. HEART: Regular S1-S2 without murmurs, rubs or gallops. ABDOMEN: Positive bowel sounds. Soft. Non tender. EXTREMITIES: No clubbing or cyanosis, edema. SKIN: No rash. NEUROLOGIC: Nonfocal. PSYCH: Calm and cooperative. IMPRESSION: 1. Post treatment for Severe sepsis/ Bandemia. Status post recent surgery for rectal cancer and recent ureteral resection and double J ureteral stent. 2. C difficile colitis. Pseudomembranous enteritis/sepsis. 3. Acute respiratory failure. Extubated. 4. Pseudomonas pneumonia and UTI. Treated and improved. 5. Leukocytosis. Diana UTI. 6. Prior UTI - Pseudomonas. 7. Hazy infiltrates on CXR. ? from micro aspiration. RECOMMENDATIONS: 1. Continue PO Vancomycin for c. diff. 2. Continue fluconazole for diana. 3. Monitor clinical status. El Espinoza MD Aug 22, 2017 11:39
--- NOTE | 2017-08-22 12:06 | HHI.HCPN ---
Reason for visit a. To assist with evaluation and management of symptoms including: Dyspnea , confusion, dysphagia b. To assist medical decision maker(s) with: better understanding of current medical conditions; weighing benefits/burdens of medical treatment options; making medical treatment decisions. . Subjective/Interval History Stable over the weekend, Transfer to regular medical floor pending. Fluctuating mental status some periods of alert, cognitively sharp, with some confusion. Pulled out PICC line 08/20, critical care DC'd TPN trying to avoid further central line to reduce infection risk. WBC trending down 13.5. Colorectal following requests PT 7 days per week to continue to assist patient with reconditioning. s/p ST evaluation, patient tolerating mechanical soft, which chopped meats, patient prefers chemical soft secondary to poor dentition. Taking in small amounts orally, ST has signed off the recommends assist with feeding as patient is weak and takes in very little on his own. Patient seen today in room no visitors present. He is sitting up in a stretcher chair at bedside. He is alert oriented to self and his . Otherwise he is slightly confused. On one hand he knows he is in the hospital, but he also tells me that he is ready to go get in his truck because he's been working all morning without a break. Explained that he is in the hospital recovering, he indicates he knows he is in the hospital however he's worked all day without a proper break and is ready to leave. Ask if his has been here he tells me she has not, that she is home with their 4 grandchildren today. He is generally cooperative though continues to insist he's ready to leave. Denies any shortness of breath, denies GI complaints. Endorses some pain up and down his back "from the sore ", unable to further qualify. Following exam call to patient to provide update. Review with her current assessment, condition, transfer orders pending. Review limited oral intake, and that patient is still deconditioned and high risk for complication. She remains hopeful patient will continue to improve and not experience any further setbacks during his prolonged hospitalization. Goals remain aggressive. She endorses that the patient has been eating well when she is here to assist, or when other staff members assist with opening all food containers etc. as he is too weak to do this. She may not be able to visit today due to caring for grandchildren. . Advance Directives Living Will: Never completed Health Care Surrogate: Never completed Durable Power of Animal Shelter Clerk: Never completed Objective Vital Signs Date Time Temp Pulse Resp B/P (MAP) Pulse Ox O2 Delivery O2 Flow Rate FiO2 08/22/17 10:00 100 08/22/17 08:00 110 08/22/17 08:00 98.5 110 25 130/62 (84) 100 08/22/17 07:38 96 21 08/22/17 07:00 100 Room Air 08/22/17 06:00 100 08/22/17 04:00 98.2 100 21 126/60 (82) 93 08/22/17 04:00 100 08/22/17 02:00 101 08/22/17 00:00 94 08/22/17 00:00 98.0 94 30 121/64 (83) 96 08/21/17 22:00 102 08/21/17 20:00 100 08/21/17 20:00 98.1 100 24 129/68 (88) 98 08/21/17 19:00 99 Room Air 08/21/17 18:00 107 08/21/17 16:00 106 08/21/17 16:00 98.1 106 19 118/84 (95) 99 08/21/17 14:00 88 08/21/17 12:00 82 08/21/17 12:00 98.1 82 19 134/74 (94) 92 Intake & Output 08/22/17 08/22/17 07:00 19:00 Intake Total 240 ml Output Total 625 ml Balance -385 ml Intake Oral 240 ml Output Urine Total 600 ml Stool Total 25 ml Drainage Total 0 ml Physical Exam CONSTITUTIONAL/GENERAL: This is a weak, extremely thin, alert patient, in no apparent distress. TUBES/LINES/DRAINS: Peripheral IV bilateral upper extremities, wound VAC, Han catheter SKIN: No jaundice, rashes. A wound VAC is present on the sacral wound-draining to bedside canister did not visualize dressing as patient up in chair. Few scattered Ecchymoses on upper extremities, a few small skin tears. Skin warm/ dry. CARDIOVASCULAR: Irregular without murmurs. No JVD. Peripheral pulses symmetric. RESPIRATORY/CHEST: Symmetric, unlabored respirations. Clear to auscultation. Breath sounds equal bilaterally. No wheezes, rales, or rhonchi. GASTROINTESTINAL: Abdomen soft, non-tender, nondistended. No palpable masses. Ileostomy present right abdomen. Bowel sounds present. MUSCULOSKELETAL: Extremities without clubbing, cyanosis, or edema. + Muscle atrophy to all 4 extremities. No joint tenderness or effusion noted. No mottling or clubbing. NEUROLOGICAL: Awake and alert, orientedx1-2. Cooperative. Very limited insight. Moves all 4 extremities, weak globally. PSYCHIATRIC: No obvious anxiety or depression or evidence of psychosis Diagnostic Tests Laboratory Laboratory Tests Test 08/20/17 07:19 08/21/17 05:10 08/22/17 08:59 White Blood Count 14.3 TH/MM3 (4.0-11.0) 13.2 TH/MM3 (4.0-11.0) 13.5 TH/MM3 (4.0-11.0) Red Blood Count 2.95 MIL/MM3 (4.50-5.90) 2.99 MIL/MM3 (4.50-5.90) 2.73 MIL/MM3 (4.50-5.90) Hemoglobin 8.7 GM/DL (13.0-17.0) 9.2 GM/DL (13.0-17.0) 8.2 GM/DL (13.0-17.0) Hematocrit 27.3 % (39.0-51.0) 28.3 % (39.0-51.0) 25.0 % (39.0-51.0) Mean Corpuscular Volume 92.6 FL (80.0-100.0) 94.7 FL (80.0-100.0) 91.8 FL (80.0-100.0) Mean Corpuscular Hemoglobin 29.6 PG (27.0-34.0) 30.8 PG (27.0-34.0) 30.2 PG (27.0-34.0) Mean Corpuscular Hemoglobin Concent 32.0 % (32.0-36.0) 32.5 % (32.0-36.0) 32.9 % (32.0-36.0) Red Cell Distribution Width 21.6 % (11.6-17.2) 21.5 % (11.6-17.2) 20.9 % (11.6-17.2) Platelet Count 200 TH/MM3 (150-450) 171 TH/MM3 (150-450) 178 TH/MM3 (150-450) Mean Platelet Volume 9.4 FL (7.0-11.0) 9.6 FL (7.0-11.0) 9.7 FL (7.0-11.0) Neutrophils (%) (Auto) 89.0 % (16.0-70.0) 92.7 % (16.0-70.0) 88.2 % (16.0-70.0) Lymphocytes (%) (Auto) 4.0 % (9.0-44.0) 2.3 % (9.0-44.0) 3.0 % (9.0-44.0) Monocytes (%) (Auto) 6.6 % (0.0-8.0) 4.6 % (0.0-8.0) 7.0 % (0.0-8.0) Eosinophils (%) (Auto) 0.1 % (0.0-4.0) 0.2 % (0.0-4.0) 0.4 % (0.0-4.0) Basophils (%) (Auto) 0.3 % (0.0-2.0) 0.2 % (0.0-2.0) 1.4 % (0.0-2.0) Neutrophils # (Auto) 12.7 TH/MM3 (1.8-7.7) 12.2 TH/MM3 (1.8-7.7) 11.9 TH/MM3 (1.8-7.7) Lymphocytes # (Auto) 0.6 TH/MM3 (1.0-4.8) 0.3 TH/MM3 (1.0-4.8) 0.4 TH/MM3 (1.0-4.8) Monocytes # (Auto) 0.9 TH/MM3 (0-0.9) 0.6 TH/MM3 (0-0.9) 0.9 TH/MM3 (0-0.9) Eosinophils # (Auto) 0.0 TH/MM3 (0-0.4) 0.0 TH/MM3 (0-0.4) 0.0 TH/MM3 (0-0.4) Basophils # (Auto) 0.0 TH/MM3 (0-0.2) 0.0 TH/MM3 (0-0.2) 0.2 TH/MM3 (0-0.2) CBC Comment AUTO DIFF DIFF FINAL DIFF FINAL Differential Comment AUTO DIFF CONFIRMED Hypersegmented Polys 1+ (NORMAL) Stomatocytes (NORMAL) Potassium Level 3.7 MEQ/L (3.5-5.1) 3.5 MEQ/L (3.5-5.1) 3.9 MEQ/L (3.5-5.1) Phosphorus Level 2.1 MG/DL (2.5-4.9) 1.9 MG/DL (2.5-4.9) 1.6 MG/DL (2.5-4.9) Magnesium Level 2.0 MG/DL (1.5-2.5) 2.0 MG/DL (1.5-2.5) 1.9 MG/DL (1.5-2.5) Prothrombin Time 10.8 SEC (9.8-11.6) Prothromb Time International Ratio 1.1 RATIO Blood Urea Nitrogen 10 MG/DL (7-18) 11 MG/DL (7-18) Creatinine 0.47 MG/DL (0.60-1.30) 0.70 MG/DL (0.60-1.30) Random Glucose 86 MG/DL (74-106) 154 MG/DL (74-106) Total Protein 5.2 GM/DL (6.4-8.2) 5.5 GM/DL (6.4-8.2) Albumin 1.6 GM/DL (3.4-5.0) 1.6 GM/DL (3.4-5.0) Calcium Level 7.7 MG/DL (8.5-10.1) 7.6 MG/DL (8.5-10.1) Alkaline Phosphatase 279 U/L (45-117) 276 U/L (45-117) Aspartate Amino Transf (AST/SGOT) 24 U/L (15-37) 20 U/L (15-37) Alanine Aminotransferase (ALT/SGPT) 37 U/L (12-78) 36 U/L (12-78) Total Bilirubin 1.0 MG/DL (0.2-1.0) 0.8 MG/DL (0.2-1.0) Sodium Level 140 MEQ/L (136-145) 139 MEQ/L (136-145) Chloride Level 109 MEQ/L (98-107) 107 MEQ/L (98-107) Carbon Dioxide Level 22.1 MEQ/L (21.0-32.0) 20.8 MEQ/L (21.0-32.0) Anion Gap 9 MEQ/L (5-15) 11 MEQ/L (5-15) Estimat Glomerular Filtration Rate 178 ML/MIN (>89) 112 ML/MIN (>89) Triglycerides Level 164 MG/DL (42-150) Carcinoembryonic Antigen 5.3 NG/ML (0.2-5.0) Result Diagram: 08/22/17 0859 08/22/17 0859 Imaging Last Impressions Chest X-Ray 08/21/17 0000 Signed Impressions: Service Date/Time: Monday, August 21, 2017 07:21 - CONCLUSION: Bilateral perihilar patchiness consistent with probable pneumonia. Clinical correlation is recommended. Yefri Israel MD Abdomen X-Ray 08/09/17 0600 Signed Impressions: Service Date/Time: Wednesday, August 09, 2017 03:49 - CONCLUSION: 1. Nonspecific bowel gas pattern without change. 2. Left ureteral stent catheter remains in place. Norman Mitchell MD Gastrostomy Tube Placement 08/09/17 0000 Signed Impressions: Service Date/Time: Wednesday, August 09, 2017 17:54 - CONCLUSION: Unsuccessful gastrostomy tube placement secondary to overlying bowel. CT scan will be required for placement Eddie Saucedo MD ADDENDUM: Review of the CT scan demonstrates the anatomy would require placement between the ribs which would be suboptimal. This was discussed with Dr. Luca Saucedo MD Abdomen/Pelvis CT 08/06/17 0000 Signed Impressions: Service Date/Time: Monday, August 07, 2017 02:34 - CONCLUSION: 1. Diffusely dilated small bowel extending to the ileostomy. There is a small volume of free fluid in the abdomen. 2. Abnormal airspace consolidation at the lung bases bilaterally with bilateral pleural effusions. 3. There is a open sacral decubitus wound extending to the adjacent coccyx and sacrum. Luca Torres MD Cholangiopancreatography MRI 07/15/17 0000 Signed Impressions: Service Date/Time: Saturday, July 15, 2017 15:02 - CONCLUSION: 1. Ascites with small bilateral pleural effusions. 2. Small contracted gallbladder without definite stones 3. No definite common duct stone. 4. Pancreas obscured by motion. Alfredo Lora MD FACR Liver Ultrasound 07/14/17 0000 Signed Impressions: Service Date/Time: July 16:45 - CONCLUSION: 1. Small volume ascites. 2. Bilateral pleural effusions. 3. Sludge within the gallbladder with a top normal thickness of the gallbladder wall. No sonographic evidence to suggest acute cholecystitis. Pierce Ospina Jr., MD Upper Extremity Ultrasound 06/23/17 0000 Signed Impressions: Service Date/Time: June 20:03 - CONCLUSION: Noncompressibility right cephalic vein and left basilic vein consistent with venous thrombosis Trav Hsieh MD Lower Extremity Ultrasound 06/23/17 0000 Signed Impressions: Service Date/Time: June 20:16 - CONCLUSION: Normal examination. No evidence DVT Trav Hsieh MD Chest CT 06/20/17 0000 Signed Impressions: Service Date/Time: Tuesday, June 20, 2017 07:42 - CONCLUSION: 1. Bilateral effusions and consolidative changes in both lung bases. Bao Lora MD Procedures * During previous hospitalization, rectosigmoidectomy with wedge resection of liver mass 05/26/17 * During this hospitalization... * INTUBATION 06/18/17 * EXTUBATION 07/07/17 * Excision of sacral decubitus, wound VAC placement 07/17/17 Assessment and Plan Disease Oriented Problem List: (1) recurrent respiratory failure, pneumonia (2) recurrent/persistent pneumonia, probable aspiration (3) recurrent/persistent pneumonia, probable aspiration (4) recurrent UTI with resistant Pseudomonas (5) altered mental status/delirium, likely multifactorial (6) recurrent rapid atrial fib (7) septic shock requiring intubation X 17 days (8) severe malnutrition/deconditioning (9) rectal cancer November 2016, s/p radiation/chemo and surgery (10) history of anxiety (11) history of COPD (12) remote history of pancreatitis (13) BPH Symptom Scale: (1) pain 0-10 Scale: Unable to quantify (2) dyspnea 0-10 Scale: Unable to quantify (3) confusion 0-10 Scale: Unable to quantify (4) anxiety 0-10 Scale: Unable to quantify (long history of anxiety) Pertinent Non-Medical Issues Psychosocial: for 51 years, 3 daughters, one daughter . 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 Legal: The patient lacks capacity for decision-making at the time of the initial consultation, and it is uncertain whether he will regain that capacity. His is the decision making proxy. Ethical issues impacting care: None . Important Contacts Spouse: Quynh Aremndariz [phone] Daughter: Alison Matthews [phone] . Prognosis The patient's debility and deconditioning has become quite profound, and he again is suffering from hypoxic respiratory failure. In addition, he has underlying recent metastatic rectal adenocarcinoma (although the post surgery scans did not indicate any obvious metastatic disease). Overall, his prognosis for complete recovery with return to work would seem to be quite poor. . Code Status: Full Code Plan * FULL CODE * DECISION-MAKING: The patient mental status and orientation fluctuates, may regain capacity for decision-making, however with ongoing confusion his is the decision making proxy. * GOALS: The overall goal is to get the patient back home, after a stay in rehab, even though he may remain quite weak and may even be nonambulatory. The family understands that the overall prognosis is not good with the underlying malignancy, but they are optimistic for the short-term. * SYMPTOMS: --The patient endorses pain to his back/sacrum. he does have PRN norco 5 available, he has not used any doses. Nursing reports pain scores of 0. will cont to evaluate prn requirements/effectiveness cautious use of opiates given recent delirium/AMS --His delirium has resolved -- dyspnea has improved-tolerating room air --poor oral intake- pt very weak, requires assist for meals, able to feed self some but requires set up. * Palliative Care will continue to follow this patient during this hospitalization, to be another supportive and consistent presence for the patient, , and daughters during this very difficult hospitalization and its multiple complications and setbacks. . Time Spent Total Floor Time (mins): 25 (chart review, PE, update to proxy) Attestation To help prompt me to consider important information that might be impacting today's encounter and assessment, information from prior notes written by myself or my colleagues may have been "brought forward" into today's note. My signature on this note, however, is an attestation that I personally performed the exam, history, and/or decision-making noted today, and, unless otherwise indicated, the interactions with patient, family, and staff as well as the review of records all occurred today. I also attest that the listed assessment and stated plan reflect my best clinical judgment today based on the combination of historical information, prior notes, and today's exam/ interactions. When time spent is documented, it refers only to time spent today by the signer, or if indicated, combined time spent today by collaborating physician/nurse practitioner. Luz Ann Aug 22, 2017 12:06
--- NOTE | 2017-08-22 13:01 | RADRPT ---
EXAM DATE/TIME: 08/22/2017 12:34 [facility] COMPARISON: No previous studies available for comparison. INDICATIONS : [place] for metastatic disease. RADIATION DOSE: 44.74 CTDIvol (mGy) MEDICAL HISTORY : Hypertension. SURGICAL HISTORY : None. ENCOUNTER: Initial ACUITY: 1 day PAIN SCALE: 0/10 LOCATION: cranial TECHNIQUE: Multiple contiguous axial images were obtained of the head. Using automated exposure control and adj ustment of the mA and/or kV according to patient size, radiation dose was kept as low as reasonably a chievable to obtain optimal diagnostic quality images. DICOM format image data is available electro nically for review and comparison. FINDINGS: There is marked central and cortical atrophy with dilatation of ventricular and sulcal spaces. There is no parenchymal hemorrhage, acute infarction or mass lesion identified. There are no extra-axial fluid collections appreciated. The posterior fossa is unremarkable with midline fourth ventricle. T he portion of the orbits and paranasal sinuses visualized are unremarkable. CONCLUSION: Atrophy, noticed mass effect disease. Lack of contrast makes detection of subtle disease difficult.. Alfredo Lora MD FACR on August 22, 2017 at 12:58 Board Certified Radiologist. This report was verified electronically.
--- NOTE | 2017-08-22 13:13 | RADRPT ---
EXAM DATE/TIME: 08/22/2017 12:28 [facility] COMPARISON: CT THORAX W/O CONTRAST, June 20, 2017, 7:42. INDICATIONS : Evaluate for metastatic disease. RADIATION DOSE: 3.48 CTDIvol (mGy) MEDICAL HISTORY : Hypertension. SURGICAL HISTORY : None. ENCOUNTER: Initial ACUITY: 1 day PAIN SCALE: 0/10 LOCATION: chest TECHNIQUE: Volumetric scanning of the chest was performed. Using automated exposure control and adjustment of t he mA and/or kV according to patient size, radiation dose was kept as low as reasonably achievable to obtain optimal diagnostic quality images. DICOM format image data is available electronically for r eview and comparison. Follow-up recommendations for detected pulmonary nodules are based at a minimum on nodule size and pa tient risk factors according to Fleischner Society Guidelines. FINDINGS: Moderate interstitial edema is present. There is a dominant 3.4 cm mass in left lower lobe. 2 other smaller nodules are evident. Patchy airspace disease is noted. Small bilateral pleural effusions a re evident. There is no axillary adenopathy. Minimal nonspecific mediastinal adenopathy is present. Trace ascit es is noted. CONCLUSION: Patchy airspace disease in both lungs New nodules probably metastatic disease. Occasionally inflammatory process could have similar appear ance. Alfredo Lora MD FACR on August 22, 2017 at 13:02 Board Certified Radiologist. This report was verified electronically.
[2017-08-22] MEDS: FLUCONAZOLE 100 MG TAB PO SCH (13:34)
[2017-08-22] MEDS: SODIUM HYPOCHLORITE 0.125% 500 ML BTL TOPICAL SCH (16:00)
[2017-08-22] MEDS: VIIBRYD 40 MG PO SCH (21:00)
[2017-08-22] MEDS: QUEtiapine FUMARATE 25 MG TAB PO SCH (21:48)
[2017-08-22] MEDS: TAMSULOSIN HCL 0.4 MG CAP PO SCH (21:48)
[2017-08-23] VITALS (9 sets, daily range): BP systolic 109–133; BP diastolic 55–70; PULSE 95–116; RESP 18–30; TEMP 98.5–100.4; O2SAT 90–100
[2017-08-23] MEDS: RESP: ALBUTEROL 2.5 MG/IPRATROPIUM 0.5 MG NEB (SCH) NEB ×3 (00:34→17:09)
[2017-08-23] MEDS: DILTIAZEM HCL 60 MG TAB PO SCH ×4 (01:46→18:00)
[2017-08-23] MEDS: VANCOMYCIN 500 MG VIAL (FOR ORAL USE ONLY) PO SCH ×5 (01:46→22:07)
[2017-08-23 04:05] LABS: AUTOMATED NEUTROPHIL # 9.4 TH/MM3 (1.8-7.7); BASOPHIL % 0.3 % (0.0-2.0); EOSINOPHIL # 0.1 TH/MM3 (0-0.4); EOSINOPHIL % 0.5 % (0.0-4.0); HEMATOCRIT 25.6 % (39.0-51.0); HEMO FLAGS DIFF FINAL; LYMPH % 5.4 % (9.0-44.0); LYMPHOCYTE # 0.6 TH/MM3 (1.0-4.8); MEAN CELL VOLUME 92.4 FL (80.0-100.0); MEAN CORPUSCULAR HEMOGLOBIN 29.6 PG (27.0-34.0); MEAN CORPUSCULAR HGB CONC 32.1 % (32.0-36.0); MONO % 7.1 % (0.0-8.0); NEUT % 86.7 % (16.0-70.0); PLATELET COUNT 189 TH/MM3 (150-450); RED BLOOD COUNT 2.77 MIL/MM3 (4.50-5.90); RED CELL DISTRIBUTION WIDTH 21.5 % (11.6-17.2); WHITE BLOOD COUNT 10.8 TH/MM3 (4.0-11.0)
[2017-08-23] MEDS: HALOPERIDOL LACTATE 5 MG/ML AMP IV PRN (04:31)
[2017-08-23 04:33] LABS: ALT (GPT) 36 U/L (12-78); ANION GAP 7 MEQ/L (5-15); AST (GOT) 17 U/L (15-37); BICARBONATE 22.8 MEQ/L (21.0-32.0); BLOOD UREA NITROGEN 14 MG/DL (7-18); CHLORIDE 111 MEQ/L (98-107); GLOMERULAR FILTRATION RATE 131 ML/MIN (>89); MAGNESIUM 1.9 MG/DL (1.5-2.5); POTASSIUM 4.3 MEQ/L (3.5-5.1); SODIUM (NA) 141 MEQ/L (136-145)
[2017-08-23 04:35] LABS: ALKALINE PHOSPHATASE 308 U/L (45-117); TOTAL BILIRUBIN ADULT 0.6 MG/DL (0.2-1.0)
[2017-08-23] MEDS: ONDANSETRON HCL 4 MG/2 ML VIAL IV PUSH PRN (04:43)
[2017-08-23] MEDS: METOPROLOL TARTRATE 5 MG/5 ML VIAL IV PUSH PRN (04:43)
--- NOTE | 2017-08-23 06:22 | RADRPT ---
EXAM DATE/TIME: 08/23/2017 05:27 [facility] COMPARISON: CHEST SINGLE AP, August 21, 2017, 7:21. INDICATIONS : Respiratory distress. MEDICAL HISTORY : Hypertension. Carcinoma, colon. SURGICAL HISTORY : Colon resection. Appendectomy. ENCOUNTER: Subsequent ACUITY: 2 days PAIN SCORE: Non-responsive. LOCATION: Bilateral chest FINDINGS: The heart size is normal. There is increased density at the left base. The right lung is grossly phoebe r. CONCLUSION: Left base atelectasis or consolidation. Luca Rivera MD on August 23, 2017 at 6:21 Board Certified Radiologist. This report was verified electronically.
--- NOTE | 2017-08-23 07:55 | HHI.CCPN ---
Subjective Remarks/Hospital Course The patient is a 67-year-old male with past medical history of hypertension, metastatic colon cancer, tobacco abuse, who, about 3 weeks ago underwent low anterior resection with low colorectal anastomosis, diverting ileostomy, and resection of a segment of the left ureter with ureteral anastomosis and double- J stent placement. He presented yesterday with 5 day history of abdominal discomfort and increasing weakness. No history of high output from ileostomy. He was admitted to the colorectal surgery for dehydration and probable UTI. He was placed on ciprofloxacin and IV hydration. According to Dr. Geiger's note it was difficult dissection/resection colon mass because of the pelvic sidewall adherence and the adherence to the left ureter. A portion of ureter was resected due to possibility of tumor infiltration, and Dr. Augustine Pelayo re- anastomosed the ureter and placed left-sided double-J stent. Also 1 cm hepatic metastasis in his liver that was excised. Hospitalist consultation was requested for medical management and evaluation of tachycardia today. He was seen by Dr. Jay and was placed on infusion of Cardizem for heart rate 140s. Patient became hypotensive with systolic blood pressure early 90s. Lab work showed WBC 14.5 with 44% bands, creat increase from 1.2 to 1.4 and severely increased lactate at 8 from admission lactate of 2.6. CT of the abdomen pelvis done yesterday showed probable small bowel ileus. I evaluated the patient in the ICU. He is tachycardic in 140s, hypotensive and systolic blood pressure in mid 80s. Clinically appears very dehydrated, an NG tube was placed with approximately 3 L of some coffee-ground output. ABG shows a base excess of -10 and bicarbonate 12. I have ordered 4 liter normal saline boluses start 1 amp of bicarbonate, discontinued the LR infusion, and started bicarb gtt. Discontinue ciprofloxacin, started Zosyn every 6 hours, vancomycin 1 g 1. His elevated lactic acid and bandemia most likely secondary to severe sepsis, ileus, and severe dehydration. Serial lactate is ordered SUBJ 06/19: Lactic acid remains elevated at 6.6 despite getting 9 L of crystalloid boluses in last 24 hours. Tachycardia has improved heart rate in 110s. Remains on vasopressin at 0.04 units/min. Urine output almost 1200 mL overnight, OGT initial output was almost 3 L when placed yesterday a.m. Overnight had 550 mL of greenish brown fluid output. EGD pending today rule out gastric ischemia per Dr. Romero. Apparently Flex sig was negative post op in Dr. Geiger's office 06/20: Developed A. fib with RVR. Heart rate 200. Hemodynamically unstable, synchronized cardioversion attempted by Dr. Morales 100 200 J. Given 3 g mag sulfate and 80 mEq KCl 1, 0.5 digoxin 1 and started on amiodarone and Giorgio- Synephrine. Intubated due to hemodynamic instability. Currently remains sedated. Currently on Giorgio-Synephrine 80 mcg/m, and amiodarone. CT chest abdomen pelvis again confirms gastric and small bowel distention/ileus. UO 1800 ml in 24 hours 06/21: Remains critically ill, intubated sedated, on 100 mcg/min neosynpehrine. HR better controlled. NG output 1500, UO >1.4L. Am labs pending. Ileostomy sample positive for C Diff on PO vanc IV Flagyl. 06/22: Remains intubated sedated. Urine output 3000 mL with Bumex. NGT [address] Geiger did colonoscopy which was normal. Ileoscopy showed pseudomembranous colitis. Currently on 200 mcg/min of neosynephrine. Afib with RVR HR in 140's 06/23: Remains intubated sedated, remains in atrial fibrillation with RVR. Still requiring high doses of Giorgio-Synephrine at 190 mcg/min. UO 2.5L. chest x- ray showed bilateral large effusions. KUB shows improving small bowel distention. WBC count is slightly improved 06/24: Unable to control HR. Repeat shock x3 today. remains in atrial fibrillation with RVR rates 160-170 intermittently. Remains on amiodarone but will discontinued due to elevation of liver enzymes AST 546 ALT 158. (GI notified). Start Cardizem infusion and also give Surjit 0.5 mg 1. Platelet count continues to drop from 67 to today 45. Hematology following will start of Argatroban today. Creatinine has slightly increased to 1.3 to will DC Bumex infusion 06/25: Patient remains intubated sedated critically ill. Heart rate controlled for the first time since atrial fibrillation started. Heart rate remains 80- 90. Urine output 1200 mL in 24 hours but BUN/creatinine increasing 44/1.7. I will hydrate with 50 mL/hr normal saline for 24 hours. Transaminitis increasing AST 1300 ALT 386. Ultrasound of the liver unremarkable GI following 06/26: PTT elevated due to Argatorban/Liver failure. Dr. Hurley has DCd argatroban. SMILEY pending. Pl count is 21. Currently in sinus rhythm on Cardizem infusion. Not on any pressors. Creatinine improved to 1.2. Urine output adequate. Becomes very tachypneic on attempted CPAP. Discussed with Dr. Geiger Will Start Trickle Tube Feeds 06/27: no improvements. off pathway. thrombocytopenia persists. unable to wean from mechanical ventilation. neuro exam poor. will likely need trach. 06/28: platelets worse today. SMILEY not resulted yet. failing SBT and mental status poor. poor prognosis. will need trach and LTAC placement. 06/29: Tmax 101. Currently 99.6. Tolerating trickle tube feeds. Continues to fail spontaneous breathing trials. 06/30: Lasted 1 hour spontaneous breathing trial this AM. 2.5 hours this afternoon. Currently afebrile. Hemoglobin remained stable. 07/01: lasted 4 hours on SBT, except 15 of pressure support, so not ready clinically for extubation, and even after only 4 hours, tired out and became hypoxic and tachypneic. more awake today and following commands. will likely need tracheostomy. 07/02: new fever today, but wbc normal. per ID, will culture and observe, continue flagyl/PO vanc. otherwise no changes. no improvements. 07/03: pseudomonas in sputum and urine. increase in cough and secretions. ID following and added cefepime. still weak and failing SBTs for hypoxia and tachypnea. needs tracheostomy. will need long-term rehab and likely LTAC. 07/04: Wakes up easily, follows commands. On 5 mg/hr versed. CXR pending. UO adequate. Resume SBT. Significant weight gain. approx 15 kg up. Give Bumex 2 mg IV x1 07/05: Patient is intubated sedated with 50 g per hour of fentanyl. Urine output 3 L in [address] on scheduled Bumex. Tolerating CPAP at 15/5. bring in Viibryd, which apparently patient had been on for long time. I have resumed it. 07/06: Tolerating CPAP 10/5 better today, Wakes up and following commands. Good UO with Bumex. Chest x-ray basilar opacities essentially unchanged. Increase IV Bumex to 1 mg every 12 07/07: Extubated yesterday tolerating well. Slightly tachypneic but maintain oxygen saturation and no subjective shortness of breath. Urine output remains excellent on Bumex, 2.9L in 24 hours 07/08: Lying on bed breathing comfortably urine output excellent with increased Bumex dose. 5.8 L in 24 hours. WBC count stable. Increase activity up to stretcher chair today 07/09: Tolerating by mouth diet. Eating atleast 50%. TPN reduced by half yesterday. UO remains excellent with diuresis. Attempt TPN wean off today. Breathing comfortably except intermittent tachypnea. 07/10: Appetite better, breathing more comfortably. Off TPN. UO remains excellent. Platelet count slightly dropped to 46 from 49. I will continue steroids at Solu-Medrol 20 mg IV every 12, taper only very slowly 07/11: Afebrile. Resting comfortably in bed. On nasal cannula. Reviewed vascular note does not want sacral decubitus debridement/ Subjective RECONSULT NOTE : 08/08: This is a patient well-known to the chief administrative officer service. In brief this is a 67-year-old male with metastatic colon cancer status post colectomy with end ileostomy. He originally presented to the hospital with severe C. difficile ileitis and septic shock. He had a prolonged mechanical ventilation and ICU course. 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 Most recently has been on the floor and has had recurrent ileus. Over the last 3 days per nursing charting he is proximally 7 L positive as well as being 3 kg up from his weight a few days ago. His BNP is 245. He complains of worsening SOB and increasing oxygen requirement up to nonrebreather. On my evaluation this evening, he is tachypneic and dyspneic and respiratory distress on a nonrebreather. SPO2 89%. He denies chest pain, abdominal pain, nausea, vomiting. Per report, he did vomit a few times earlier today, and there is a high clinical suspicion by the hospitalist service that he had an aspiration event. He has an NG tube in place to suction. His most recent urine culture data suggests that his pseudomonas is now resistant to cefepime. For this reason infectious disease discontinued cefepime and started Zosyn today. Chest x-ray demonstrates bilateral patchy infiltrates either suggestive of volume overload or bilateral multifocal pneumonia. Limited review systems is otherwise negative unless stated above. For the remaining past medical history the patient, please see our chief administrative officer consultation note from 06/18/17. SUBJ 08/09: Patient lying on the bed slightly tachypneic but respiratory distress subjectively improved. On high flow nasal cannula 80% FiO2 been just weaned to 60%. Chest x-ray shows interval improvement in bilateral infiltrates received 40 mg IV Lasix yesterday. WBC count is improved from 23.1 to 16.3. KUB shows nonspecific bowel gas pattern 08/10: Remains on high flow nasal cannula at 50% oxygen. But appears to be breathing comfortably. Urine output adequate with Lasix yesterday also. 3.9 L in 24 hours. IR unable to place PEG yesterday, Dr. Geiger will discuss with IR today 08/11: Patient is currently back on high flow NC, at 55% oxygen. CXR unchanged. K 2.8 getting replaced, IV Lasix 40 mg x1. Plan for PEG tube placement in the OR today by Dr. Watts. 08/12: Patient currently on normal partial nonrebreather with oxygen saturation 95-96%. Chest x-rays essentially unchanged I have ordered additional 40 mg Lasix today and were placed on scheduled Lasix. WBC count is trending up but patient is currently on steroids 08/13: patient CAM+ and confused this AM. o2 requirement continues to improve. hr in the 130s, afib, irregular. 08/14: very difficult to control afib RVR overnight. patient has history of refractory RVR, which during prior acute illnesses was not rate controlled despite medication and multiple cardioversion attempts. in the past, digoxin, electrolyte replacement, and diltiazem were the most effective treatments. he has had elevated LFTs in the past which were thought to be related to amiodarone. this morning, heart rate continues to be in the 170s. blood pressure is borderline hypotensive. yesterday diltiazem was increased to 90mg po q6h. dig level pending this AM. hypokalemic. 08/15: Acute respiratory decompensation with hypoxia. Placed on 100% nonrebreather with improvement in oxygen saturation of 100%. Tachypneic, but able to communicate. Chest x-ray remains unchanged. I will give additional Lasix total 40 mg now with potassium replacement. Keep NPO, re insert NGT (will d/w CRS) and get speech for swallow eval. in and out of A. fib currently sinus with PVCs 08/16: Slightly tachypneic, WBC count slightly increased to 21.6 today from 18.6. Intermittently confused, on my exam he was oriented to person and place. Anxious tremulous. Discussed with Dr. Tran, will DC Ping Hernandez. Dr. Espinoza has DC'd Zosyn today. Will re culture. CXR appears improved. 08/17: Improved oxygenation on 4L NC today, improving mentation. UA shows evidence of UTI with yeast. Change Han, started Diflucan. Zosyn DCd yesterday. labs are pending 08/18: WBC count improving 12.9 today, slight drop in hemoglobin noted to 7.5. Remains oriented to person and place, clinically improving. Diflucan started yesterday. Han catheter replaced 08/17 08/19: Better oriented, appears calm, on room air. In sinus rhythm, tachycardic. Urine output adequate. I will reduce Solu- Medrol to 20 mg every 12 08/20: Clinically improving, but RN reports intermittent confusion ? after getting Percocet. Found on floor at night, but patient cannot recall what happened. I have DCd percocet and placed on PRN Lortab and also DCd melatonin. Labs pending. UO adequate. Lasix DCd yesterday 08/21: Intermittent agitation, currently oriented to person and some what to place. UO adequate. Patient pulled out PICC line yesterday, not getting TPN ( was only on 20 ml/hr prior to DC). I would like to avoid PICC and TPN due to increased risk of infection, including fungal infection. I discussed with Dr. Adams and she agrees 08/22: Gets confused at night. Today am better oriented. He knows my name, he is also oriented to person and place also now since August. Lab work is pending today. Chest x-ray from yesterday shows perihilar infiltrates but without evidence of pneumonia clinically. I will check CT of the chest and brain to evaluate for metastatic disease 08/23: Neuro status of the baseline oriented to person and place somewhat time. CT of the chest done yesterday shows 3.4 cm mass in left lower lobe, and multiple peripheral nodules consistent with metastatic disease. Dr. Ryan from oncology reconsulted and Ct reviewed with him Objective Vital Signs Date Time Temp Pulse Resp B/P (MAP) Pulse Ox O2 Delivery O2 Flow Rate FiO2 08/23/17 07:36 93 21 08/23/17 04:00 98.5 105 30 131/69 (89) 08/22/17 07:00 Room Air 08/21/17 08:26 3.00 Intake and Output 08/23/17 08/23/17 08/23/17 07:59 15:59 23:59 Intake Total 684 ml Output Total 1315 ml Balance -631 ml Result Diagram: 08/23/17 0338 08/23/17 0338 Imaging Last Impressions Chest X-Ray 07/10/17 0600 Signed Impressions: Service Date/Time: Monday, July 10, 2017 04:39 - CONCLUSION: No significant change with persistent bilateral pulmonary parenchymal opacity with lower lung zone predominance likely worsening pulmonary edema and bilateral pleural effusions. Luis Armando Michel MD Abdomen X-Ray 07/06/17 0000 Signed Impressions: Service Date/Time: Thursday, July 06, 2017 13:44 - CONCLUSION: 1. Gaseous distention of multiple bowel loops. This has slightly improved. 2. Left-sided nephroureteral stent in good position. Sarwat Suarez MD Liver Ultrasound 06/24/17 0000 Signed Impressions: Service Date/Time: Saturday, June 24, 2017 16:38 - CONCLUSION: 1. Small volume ascites. 2. Small right effusion. Pierce Ospina Jr., MD Upper Extremity Ultrasound 06/23/17 0000 Signed Impressions: Service Date/Time: June 20:03 - CONCLUSION: Noncompressibility right cephalic vein and left basilic vein consistent with venous thrombosis Trav Hsieh MD Lower Extremity Ultrasound 06/23/17 0000 Signed Impressions: Service Date/Time: June 20:16 - CONCLUSION: Normal examination. No evidence DVT Trav Hsieh MD Chest CT 06/20/17 0000 Signed Impressions: Service Date/Time: Tuesday, June 20, 2017 07:42 - CONCLUSION: 1. Bilateral effusions and consolidative changes in both lung bases. Bao Lora MD Abdomen/Pelvis CT 06/20/17 0000 Signed Impressions: Service Date/Time: Tuesday, June 20, 2017 07:39 - CONCLUSION: 1. Dilated stomach and multiple dilated loops of small bowel, likely ileus. 2. No definite gastric volvulus. 3. Fat containing right inguinal hernia which also contains small portion of the urinary bladder and minimal fluid. 4. Left-sided nephroureteral stent in good position. 5. Bibasilar consolidation and small pleural effusions. Sarwat Suarez MD Objective Remarks GENERAL: 67-year-old male lying on bed, in no respiratory distress good saturation on RA, intermittently confused SKIN: Warm and dry. HEENT: Normocephalic. Atraumatic. Extraocular muscles intact. NECK: The neck is supple. Trachea is midline. CHEST: Bilateral coarse breath sounds, few basilar crackles. On RA, good O2 sats CVS: Currently sinus rhythm, tachycardic, no murmurs ABDOMEN: Abdomen is soft. Ileostomy is functioning well, good output EXTREMITIES: No pedal edema or cyanosis. NEURO: Alert awake anxious oriented to person place, knows the month. Moves all extremities but weak, following commands. Intermittent confusion A/P Assessment and Plan Assessment: This is a 67-year-old male with colon cancer and recurrent pseudomonal infections who presented back with recurrent respiratory distress, acute hypoxic respiratory failure. Afib RVR which in the past has been very refractory. Delirium persists, predominantly at night. Getting Diflucan for Diana UTI. CT chest shows metastatic lesions in lung Active Problems: Acute hypoxemic respiratory failure-resolved COPD with exacerbation Aspiration pneumonia Persistent bilateral hilar and infrahilar infiltrates, rule out metastatic disease Diana UTI Pulmonary Edema-improved HCAP with Pseudomonas status post treatment Agitated Delirium Atrial fibrillation with intermittent rapid ventricular response, now in sinus tach C Diff ileitis UTI with Pseudomonas s/p treatment s/p Pseudomonas bacteremia s/p treatment s/p Partial resection of the left ureter with anastomosis and placement of double-J stent Recurrent ileus Acute protein calorie malnutrition- severe. Metastatic colon cancer s/p resection Malnutrition with weight loss History of ITP Plan: CT of the chest 08/22/17 shows 3.4 cm mass in left lower lobe, and multiple peripheral nodules consistent with metastatic disease. Dr. Ryan from oncology reconsulted and Ct reviewed with him. recommends comfort measures and hospice at this time Palliative care is following Continues to show delirium predominantly at night. Seroquel 25 mg daily at bedtime. CT of the brain to rule out metastatic disease-negative Respiratory status improved, acceptable oxygen saturations on RA. CEA 5.3 08/22 UTI with diana. Diflucan started 08/17, Han replaced 08/17 Use when necessary Haldol and low dose Ativan. Continue Vibrrid. DCd Melatonin. Discontinued Zyprexa Reglan 08/17. DCd Perocet, Lortab 5/325 PRN pain 5-10 Continue by mouth vancomycin, continue Diflucan for Diana UTI. (IV Zosyn and IV Flagyl discontinued per ID 08/16) Previous Pseudomonas bacteremia UTI and HCAP, status post treatment Lasix DCd on 08/19/17 Prednisone 20 mg PO daily. Continue Symbicort, Spiriva, EzPAP, acapella, DuoNeb' s Relative contraindication of BiPAP being high aspiration risk, ileus, no absolute contraindication IR, GI was unable to place PEG tube. D/W Dr. Pelayo re: ureteral stent removal- recommended postponing until more stable Cardizem to 90 mg po q6h. PO Digoxin. Metoprolol 5mg iv q4h PRN for HR control. NSR Stopped amio infusion due to previous liver enzyme elevation. AVOID AMIO Aggressively replace electrolytes, target mg > 2.0, k > 4.0 Lovenox for DVT prophylaxis, famotidine for GI prophylaxis PT/OT up to chair daily Regular basic diet. Megace for appetite stimulation. Off TPN Cathectic, continues to lose weight. Dietary consulted for recommendations, ensure added Avoid PICC replacement and TPN due to increased risk of infection, including fungal infection. I discussed with Dr. Adams 08/21 and she agrees Level 2 Transfer to [facility] with TELE when bed available. At this time prognosis is poor with Stage 4 colon ca and inability to get chemo/radiation. Dr. ryan recommending hospice at this time and I agree. Dr. Tran will discuss with Shiva Segovia MD Aug 23, 2017 07:55
--- NOTE | 2017-08-23 08:04 | PD.ONC.PN ---
Subjective Subjective Remarks Was asked to reevaluate the patient by Dr. Segovia critical care medicine, patient remains in the surgical ICU for management of delirium. CT scan of the thorax was obtained yesterday, findings indicate multiple nodules and at least one mass involving the left lower lobe of the lung; these lesions were not present on CT thorax performed in June 2017. I been asked to see the patient to discuss goals of care going forward and to help communicate appropriate expectations with the patient and his . Objective Data Date Time Temp Pulse Resp B/P (MAP) Pulse Ox O2 Delivery O2 Flow Rate FiO2 08/23/17 07:36 93 21 08/23/17 04:00 98.5 105 30 131/69 (89) 90 08/23/17 04:00 105 08/23/17 00:00 98.5 108 24 117/55 (75) 92 08/23/17 00:00 96 08/22/17 20:00 96 08/22/17 20:00 98.6 96 26 138/62 (87) 98 08/22/17 18:00 96 08/22/17 16:00 100 08/22/17 16:00 98.5 100 24 124/61 (82) 92 08/22/17 14:00 103 08/22/17 12:00 101 08/22/17 12:00 98.5 106 25 119/62 (81) 94 08/22/17 10:00 100 08/23/17 08/23/17 08/23/17 07:00 15:00 23:00 Intake Total 684 ml Output Total 1315 ml Balance -631 ml Result Diagram: 08/23/17 0338 08/23/17 0338 Laboratory Results Laboratory Tests Test 08/22/17 08:59 08/23/17 03:38 White Blood Count 13.5 TH/MM3 10.8 TH/MM3 Red Blood Count 2.73 MIL/MM3 2.77 MIL/MM3 Hemoglobin 8.2 GM/DL 8.2 GM/DL Hematocrit 25.0 % 25.6 % Mean Corpuscular Volume 91.8 FL 92.4 FL Mean Corpuscular Hemoglobin 30.2 PG 29.6 PG Mean Corpuscular Hemoglobin Concent 32.9 % 32.1 % Red Cell Distribution Width 20.9 % 21.5 % Platelet Count 178 TH/MM3 189 TH/MM3 Mean Platelet Volume 9.7 FL 9.2 FL Neutrophils (%) (Auto) 88.2 % 86.7 % Lymphocytes (%) (Auto) 3.0 % 5.4 % Monocytes (%) (Auto) 7.0 % 7.1 % Eosinophils (%) (Auto) 0.4 % 0.5 % Basophils (%) (Auto) 1.4 % 0.3 % Neutrophils # (Auto) 11.9 TH/MM3 9.4 TH/MM3 Lymphocytes # (Auto) 0.4 TH/MM3 0.6 TH/MM3 Monocytes # (Auto) 0.9 TH/MM3 0.8 TH/MM3 Eosinophils # (Auto) 0.0 TH/MM3 0.1 TH/MM3 Basophils # (Auto) 0.2 TH/MM3 0.0 TH/MM3 CBC Comment DIFF FINAL DIFF FINAL Differential Comment Blood Urea Nitrogen 11 MG/DL 14 MG/DL Creatinine 0.70 MG/DL 0.61 MG/DL Random Glucose 154 MG/DL 151 MG/DL Total Protein 5.5 GM/DL 5.5 GM/DL Albumin 1.6 GM/DL 1.7 GM/DL Calcium Level 7.6 MG/DL 8.0 MG/DL Phosphorus Level 1.6 MG/DL Magnesium Level 1.9 MG/DL 1.9 MG/DL Alkaline Phosphatase 276 U/L 308 U/L Aspartate Amino Transf (AST/SGOT) 20 U/L 17 U/L Alanine Aminotransferase (ALT/SGPT) 36 U/L 36 U/L Total Bilirubin 0.8 MG/DL 0.6 MG/DL Sodium Level 139 MEQ/L 141 MEQ/L Potassium Level 3.9 MEQ/L 4.3 MEQ/L Chloride Level 107 MEQ/L 111 MEQ/L Carbon Dioxide Level 20.8 MEQ/L 22.8 MEQ/L Anion Gap 11 MEQ/L 7 MEQ/L Estimat Glomerular Filtration Rate 112 ML/MIN 131 ML/MIN Carcinoembryonic Antigen 5.3 NG/ML Imaging Studies Last 24 hours Impressions Chest X-Ray 08/23/17 0600 Signed Impressions: Service Date/Time: Wednesday, August 23, 2017 05:27 - CONCLUSION: Left base atelectasis or consolidation. Luca Rivera MD Administered Medications Medications (Trade) Dose Ordered Sig/[place] Route PRN Reason Start Time Stop Time Status Last Admin Dose Admin Ondansetron HCl (Zofran Inj) 4 mg Q4H PRN IV PUSH NAUSEA/VOMITING 06/17/17 22:00 08/23/17 04:43 Miscellaneous Information Patient in critical care unit? Ass... [id number] .XX 06/18/17 05:45 06/18/17 05:45 Albuterol Sulfate (Albuterol Neb) 2.5 mg Q2HR NEB PRN NEB DYSPNEA 06/29/17 14:30 08/11/17 08:53 Budesonide/ Formoterol Fumarate (Symbicort 160-4.5 Inh) 1 puff Q12HR INH 07/07/17 09:00 08/22/17 21:49 Insulin Aspart (NovoLOG SUPPLEMENTAL SCALE) 1 ACHS SQ 07/11/17 17:00 08/21/17 12:00 Patient Own Medication PT OWN MED: VIIB... HS PO 07/15/17 21:00 08/19/17 21:00 Sodium Hypochlorite (Dakin'S 0.125% Soln) 500 ml MoWeFr TOPICAL 07/20/17 13:00 08/19/17 14:09 Tamsulosin HCl (Flomax) 0.4 mg HS PO 07/23/17 21:00 08/22/17 21:48 Megestrol Acetate (Megace Liq) 400 mg DAILY PO 08/04/17 09:00 Future hold 08/22/17 08:00 Vancomycin HCl (VANCOMYCIN for oral use only) 250 mg QID PO 08/04/17 18:00 08/26/17 13:01 08/22/17 18:00 Digoxin (Lanoxin) 0.125 mg DAILY PO 08/06/17 09:00 Future hold 08/22/17 08:00 Enoxaparin Sodium (Lovenox Inj) 40 mg Q24H SQ 08/10/17 09:00 08/22/17 08:00 Potassium Chloride 100 ml @ 50 mls/hr Q2H PRN IV For Potassium 2.8 - 3.2 mEq/L 08/11/17 06:00 08/16/17 14:20 Potassium Chloride 100 ml @ 50 mls/hr Q2H PRN IV For Potassium 2.8 - 3.2 mEq/L 08/11/17 06:00 08/15/17 07:30 Potassium Chloride 100 ml @ 50 mls/hr Q2H PRN IV For Potassium 3.3 - 3.5 mEq/L 08/11/17 06:00 08/14/17 04:43 Magnesium Sulfate 4 gm/Sodium Chloride 100 ml @ 50 mls/hr UNSCH PRN IV For Magnesium 0.9 - 1.1 mg/dL 08/11/17 06:00 08/14/17 06:50 Sodium Phosphate 30 mmol/Sodium Chloride 250 ml @ 42 mls/hr UNSCH PRN IV For Phosphorus < 2.5 mg/dL 08/11/17 06:00 08/23/17 03:48 Potassium Phosphate (K-Phos) 2,000 mg UNSCH PRN PO/TUBE SEE LABEL COMMENTS 08/11/17 06:00 08/13/17 05:42 Metoprolol Tartrate (Lopressor Inj) 5 mg Q5M PRN IV PUSH hr>100 08/13/17 02:45 08/23/17 04:43 Diltiazem HCl (Cardizem) 90 mg Q6HR PO 08/14/17 00:00 Future hold 08/22/17 18:00 Tiotropium [place] (Spiriva Inh) 18 mcg DAILY INH 08/15/17 09:00 08/21/17 09:43 Haloperidol Lactate (Haldol Inj) 2 mg Q4H PRN IV agitation 08/15/17 09:00 08/23/17 04:31 Famotidine (Pepcid) 20 mg BID PO 08/16/17 21:00 08/22/17 21:48 Fluconazole (Diflucan) 100 mg Q24H PO 08/18/17 11:00 08/22/17 13:34 Prednisone (Deltasone) 20 mg DAILY PO 08/20/17 09:00 08/22/17 08:00 Thiamine HCl (Vitamin B1) 100 mg DAILY PO 08/21/17 09:00 08/22/17 08:00 Quetiapine Fumarate (SEROquel) 25 mg HS PO 08/22/17 21:00 08/22/17 21:48 Objective Remarks GENERAL APPEARANCE: Elderly male, chronically ill and frail, laying in bed, Ventimask is on for oxygen supplementation. He appears confused and is unable to answer questions appropriately. He appears to be cachectic. HEENT: Head atraumatic, normocephalic. Conjunctivae are pale. Sclerae are anicteric, EOMI, PERRLA, temporal muscle wasting noted. NECK: No palpable cervical or supraclavicular lymphadenopathy. RESPIRATORY: Poor inspiratory effort, prolonged expiratory phase, conducted breath sounds (course). CARDIOVASCULAR: Irregular, tachycardiac, S1 S2, no obvious murmurs, rubs or gallops. ABDOMEN: Thin, soft, cachectic. An ileostomy bag is noted containing liquid stools. A well-healing laparotomy incision in the midline is appreciated. The abdomen does not appear to be distended, there appears to be no significant increase in tympany on percussion. There are no signs of acute abdomen. LOWER EXTREMITIES: No pretibial edema, no calf tenderness. Upper extremities: Right upper extremity with edema. MUSCULOSKELETAL: Extensive muscle atrophy. Soft wrist restraints noted bilaterally. FINANCIAL DEALERS: Moving all 4 limbs spontaneously, he appears to be in delirium. Assessment/Plan Assessment Mr. Armendariz is a 67-year-old male who was diagnosed with metastatic adenocarcinoma of the rectosigmoid colon in May 2017. He is status post primary surgical resection as well as wedge resection of a metastatic deposit to the liver. He has had a very complicated postoperative course; he developed C. difficile colitis with C. difficile sepsis, respiratory failure, protein calorie malnutrition, decubitus ulcers, recurrent Pseudomonas urosepsis and now delirium. He has progressive disease with radiographic findings consistent with multifocal pulmonary metastases. His ECOG performance status is extremely poor. He is an appropriate candidate for hospice/end-of-life care. His however resists this and has been pressing the care team for continued aggressive goals of care. Plan 1. Metastatic colon cancer: Progressive metastatic disease to the lungs. At this time due to his multi-full medical comorbid issues, poor ECOG performance status, and overall extremely poor prognosis he is not an appropriate candidate for palliative systemic chemotherapy. I would recommend hospice level of care. I had previously broached this topic with the patient and his , my input was not well received at that time. I will readdress this issue with them to see if they are more receptive given the recent developments and continued decline. Disposition: I would recommend hospice level of care. Faraz Ryan MD Aug 23, 2017 08:04
[2017-08-23] MEDS: INSULIN ASPART SUPPLEMENTAL SCALE SQ SCH ×4 (08:24→21:00)
[2017-08-23] MEDS: THIAMINE HCL 100 MG TAB PO SCH (08:24)
[2017-08-23] MEDS: FAMOTIDINE 20 MG TAB PO SCH ×2 (08:24→22:06)
[2017-08-23] MEDS: predniSONE 20 MG TAB PO SCH (08:25)
[2017-08-23] MEDS: DIGOXIN 0.125 MG TAB PO SCH (08:25)
[2017-08-23] MEDS: MEGESTROL ACETATE SUSP 400 MG/10 ML CUP PO SCH (08:25)
[2017-08-23] MEDS: ENOXAPARIN SODIUM 40 MG/0.4 ML SYRINGE SQ SCH (08:25)
[2017-08-23] MEDS: FLUCONAZOLE 100 MG TAB PO SCH (12:08)
--- NOTE | 2017-08-23 13:20 | HHI.PR ---
Subjective . Pt had Chest CT yesterday showing 3.7 cm LLL lung lesion c/w metastatic rectal CA. Pt seems awake and understands that this portends a poor prognosis. His is upset and wants no part of Hospice due to another experience with their daughter this past April. Pt continues to eat and take Ensure. OOB everyday with PT. Agree with transfer. wants to continue trying everything but pt seems somewhat ambivalent about this. Objective . VS-S Abd: Benign. Assessment/Plan . Metastatic Rectal CA to lungs. Discussed options with pt and . His prognosis is poor now especially with new metastatic disease. D/W Dr Segovia,[place] and Palliative care. Luca Geiger MD Aug 23, 2017 13:20
--- NOTE | 2017-08-23 13:39 | HHI.HCPN ---
Reason for visit a. To assist with evaluation and management of symptoms including: Dyspnea , confusion, dysphagia b. To assist medical decision maker(s) with: better understanding of current medical conditions; weighing benefits/burdens of medical treatment options; making medical treatment decisions. . Subjective/Interval History Stable over the weekend, Transfer to regular medical floor pending. Fluctuating mental status some periods of alert, cognitively sharp, with some confusion. Taking in small amounts orally, ST has signed off the recommends assist with feeding as patient is weak and takes in very little on his own. Repeat CT brain, chest yesterday afternoon, findings of New nodules probably metastatic disease/ 3.4 cm mass LUE. Oncology Dr Ryan reconsulted-- pt too debilitated for any chemotherapy, recommends hospice. D/w Dr Segovia, Dr Geiger RE. Dual visit w Dr Geiger, Tricia Ospina palliative SW, Dr Geiger updated on new findings, overall poor prognosis and very limited aggressive tx options going forward. Pt visibly upset, becomes angry at mention of hospice, and indicates "they killed her daughter". She expresses that she is not ready to give up and wants to get him "in his own element" so he might feel better and improve w some rehabilitation. Explored that he might be able to get home w hospice help, NOT open to this. Pt keeps his eyes closed for most of the conversation- though when asked if he hears and understands- he indicates he hears and understands. He says there's no point in doing more. He does not further engage, speaks and tells us the decisions have been made for rehab and to get him better. Gently explore that Mr Armendariz can advise of his wishes, w / ongoing conversations. requests palliative leave that she does not wish to discuss further. Attempt to explore w pt, he is tired, doesn't want to talk further. She is open to follow up tomorrow. Pt w limited engagement during ROS, denies pain, but tells me his breathing feels labored. . Advance Directives Living Will: Never completed Health Care Surrogate: Never completed Durable Power of Trumpet Player: Never completed Objective Vital Signs Date Time Temp Pulse Resp B/P (MAP) Pulse Ox O2 Delivery O2 Flow Rate FiO2 08/23/17 08:00 96 08/23/17 07:36 93 21 08/23/17 04:00 98.5 105 30 131/69 (89) 90 08/23/17 04:00 105 08/23/17 00:00 98.5 108 24 117/55 (75) 92 08/23/17 00:00 96 08/22/17 20:00 96 08/22/17 20:00 98.6 96 26 138/62 (87) 98 08/22/17 18:00 96 08/22/17 16:00 100 08/22/17 16:00 98.5 100 24 124/61 (82) 92 08/22/17 14:00 103 Intake & Output 08/23/17 08/23/17 07:00 19:00 Intake Total 684 ml Output Total 1315 ml Balance -631 ml Intake Oral 600 ml IV Total 84 ml Output Urine Total 750 ml Stool Total 565 ml Drainage Total 0 ml Physical Exam CONSTITUTIONAL/GENERAL: This is a weak, extremely thin, awake patient, in no apparent distress. TUBES/LINES/DRAINS: Peripheral IV bilateral upper extremities, wound VAC, Han catheter SKIN: No jaundice, rashes. A wound VAC is present on the sacral wound-draining to bedside canister did not visualize dressing. Few scattered Ecchymoses on upper extremities, a few small skin tears. Skin warm/dry. CARDIOVASCULAR: Irregular without murmurs. No JVD. Peripheral pulses symmetric. RESPIRATORY/CHEST: Symmetric, unlabored respirations. Clear to auscultation. Breath sounds equal bilaterally.faint wheezes GASTROINTESTINAL: Abdomen soft, non-tender, nondistended. No palpable masses. Ileostomy present right abdomen. Bowel sounds present. MUSCULOSKELETAL: Extremities without clubbing, cyanosis, or edema. + Muscle atrophy to all 4 extremities. No joint tenderness or effusion noted. No mottling or clubbing. NEUROLOGICAL: Awake , orientedx2-3. Cooperative. some limited insight. Moves all 4 extremities, weak globally. PSYCHIATRIC: flat does not wish to engage . Diagnostic Tests Laboratory Laboratory Tests Test 08/21/17 05:10 08/22/17 08:59 08/23/17 03:38 White Blood Count 13.2 TH/MM3 (4.0-11.0) 13.5 TH/MM3 (4.0-11.0) 10.8 TH/MM3 (4.0-11.0) Red Blood Count 2.99 MIL/MM3 (4.50-5.90) 2.73 MIL/MM3 (4.50-5.90) 2.77 MIL/MM3 (4.50-5.90) Hemoglobin 9.2 GM/DL (13.0-17.0) 8.2 GM/DL (13.0-17.0) 8.2 GM/DL (13.0-17.0) Hematocrit 28.3 % (39.0-51.0) 25.0 % (39.0-51.0) 25.6 % (39.0-51.0) Mean Corpuscular Volume 94.7 FL (80.0-100.0) 91.8 FL (80.0-100.0) 92.4 FL (80.0-100.0) Mean Corpuscular Hemoglobin 30.8 PG (27.0-34.0) 30.2 PG (27.0-34.0) 29.6 PG (27.0-34.0) Mean Corpuscular Hemoglobin Concent 32.5 % (32.0-36.0) 32.9 % (32.0-36.0) 32.1 % (32.0-36.0) Red Cell Distribution Width 21.5 % (11.6-17.2) 20.9 % (11.6-17.2) 21.5 % (11.6-17.2) Platelet Count 171 TH/MM3 (150-450) 178 TH/MM3 (150-450) 189 TH/MM3 (150-450) Mean Platelet Volume 9.6 FL (7.0-11.0) 9.7 FL (7.0-11.0) 9.2 FL (7.0-11.0) Neutrophils (%) (Auto) 92.7 % (16.0-70.0) 88.2 % (16.0-70.0) 86.7 % (16.0-70.0) Lymphocytes (%) (Auto) 2.3 % (9.0-44.0) 3.0 % (9.0-44.0) 5.4 % (9.0-44.0) Monocytes (%) (Auto) 4.6 % (0.0-8.0) 7.0 % (0.0-8.0) 7.1 % (0.0-8.0) Eosinophils (%) (Auto) 0.2 % (0.0-4.0) 0.4 % (0.0-4.0) 0.5 % (0.0-4.0) Basophils (%) (Auto) 0.2 % (0.0-2.0) 1.4 % (0.0-2.0) 0.3 % (0.0-2.0) Neutrophils # (Auto) 12.2 TH/MM3 (1.8-7.7) 11.9 TH/MM3 (1.8-7.7) 9.4 TH/MM3 (1.8-7.7) Lymphocytes # (Auto) 0.3 TH/MM3 (1.0-4.8) 0.4 TH/MM3 (1.0-4.8) 0.6 TH/MM3 (1.0-4.8) Monocytes # (Auto) 0.6 TH/MM3 (0-0.9) 0.9 TH/MM3 (0-0.9) 0.8 TH/MM3 (0-0.9) Eosinophils # (Auto) 0.0 TH/MM3 (0-0.4) 0.0 TH/MM3 (0-0.4) 0.1 TH/MM3 (0-0.4) Basophils # (Auto) 0.0 TH/MM3 (0-0.2) 0.2 TH/MM3 (0-0.2) 0.0 TH/MM3 (0-0.2) CBC Comment DIFF FINAL DIFF FINAL DIFF FINAL Differential Comment Prothrombin Time 10.8 SEC (9.8-11.6) Prothromb Time International Ratio 1.1 RATIO Blood Urea Nitrogen 10 MG/DL (7-18) 11 MG/DL (7-18) 14 MG/DL (7-18) Creatinine 0.47 MG/DL (0.60-1.30) 0.70 MG/DL (0.60-1.30) 0.61 MG/DL (0.60-1.30) Random Glucose 86 MG/DL (74-106) 154 MG/DL (74-106) 151 MG/DL (74-106) Total Protein 5.2 GM/DL (6.4-8.2) 5.5 GM/DL (6.4-8.2) 5.5 GM/DL (6.4-8.2) Albumin 1.6 GM/DL (3.4-5.0) 1.6 GM/DL (3.4-5.0) 1.7 GM/DL (3.4-5.0) Calcium Level 7.7 MG/DL (8.5-10.1) 7.6 MG/DL (8.5-10.1) 8.0 MG/DL (8.5-10.1) Phosphorus Level 1.9 MG/DL (2.5-4.9) 1.6 MG/DL (2.5-4.9) Magnesium Level 2.0 MG/DL (1.5-2.5) 1.9 MG/DL (1.5-2.5) 1.9 MG/DL (1.5-2.5) Alkaline Phosphatase 279 U/L (45-117) 276 U/L (45-117) 308 U/L (45-117) Aspartate Amino Transf (AST/SGOT) 24 U/L (15-37) 20 U/L (15-37) 17 U/L (15-37) Alanine Aminotransferase (ALT/SGPT) 37 U/L (12-78) 36 U/L (12-78) 36 U/L (12-78) Total Bilirubin 1.0 MG/DL (0.2-1.0) 0.8 MG/DL (0.2-1.0) 0.6 MG/DL (0.2-1.0) Sodium Level 140 MEQ/L (136-145) 139 MEQ/L (136-145) 141 MEQ/L (136-145) Potassium Level 3.5 MEQ/L (3.5-5.1) 3.9 MEQ/L (3.5-5.1) 4.3 MEQ/L (3.5-5.1) Chloride Level 109 MEQ/L (98-107) 107 MEQ/L (98-107) 111 MEQ/L (98-107) Carbon Dioxide Level 22.1 MEQ/L (21.0-32.0) 20.8 MEQ/L (21.0-32.0) 22.8 MEQ/L (21.0-32.0) Anion Gap 9 MEQ/L (5-15) 11 MEQ/L (5-15) 7 MEQ/L (5-15) Estimat Glomerular Filtration Rate 178 ML/MIN (>89) 112 ML/MIN (>89) 131 ML/MIN (>89) Triglycerides Level 164 MG/DL (42-150) Carcinoembryonic Antigen 5.3 NG/ML (0.2-5.0) Result Diagram: 08/23/17 0338 08/23/17 0338 Imaging Last Impressions Chest X-Ray 08/23/17 0600 Signed Impressions: Service Date/Time: Wednesday, August 23, 2017 05:27 - CONCLUSION: Left base atelectasis or consolidation. Luca Rivera MD Head CT 08/22/17 0000 Signed Impressions: Service Date/Time: Tuesday, August 22, 2017 12:34 - CONCLUSION: Atrophy, noticed mass effect disease. Lack of contrast makes detection of subtle disease difficult.. Alfredo Lora MD FACR Chest CT 08/22/17 0000 Signed Impressions: Service Date/Time: Tuesday, August 22, 2017 12:28 - CONCLUSION: Patchy airspace disease in both lungs New nodules probably metastatic disease. Occasionally inflammatory process could have similar appearance. Alfredo Lora MD FACR Abdomen X-Ray 08/09/17 0600 Signed Impressions: Service Date/Time: Wednesday, August 09, 2017 03:49 - CONCLUSION: 1. Nonspecific bowel gas pattern without change. 2. Left ureteral stent catheter remains in place. Noramn Mitchell MD Gastrostomy Tube Placement 08/09/17 0000 Signed Impressions: Service Date/Time: Wednesday, August 09, 2017 17:54 - CONCLUSION: Unsuccessful gastrostomy tube placement secondary to overlying bowel. CT scan will be required for placement Eddie Saucedo MD ADDENDUM: Review of the CT scan demonstrates the anatomy would require placement between the ribs which would be suboptimal. This was discussed with Dr. Luca Saucedo MD Abdomen/Pelvis CT 08/06/17 0000 Signed Impressions: Service Date/Time: Monday, August 07, 2017 02:34 - CONCLUSION: 1. Diffusely dilated small bowel extending to the ileostomy. There is a small volume of free fluid in the abdomen. 2. Abnormal airspace consolidation at the lung bases bilaterally with bilateral pleural effusions. 3. There is a open sacral decubitus wound extending to the adjacent coccyx and sacrum. Luca Torres MD Cholangiopancreatography MRI 07/15/17 0000 Signed Impressions: Service Date/Time: Saturday, July 15, 2017 15:02 - CONCLUSION: 1. Ascites with small bilateral pleural effusions. 2. Small contracted gallbladder without definite stones 3. No definite common duct stone. 4. Pancreas obscured by motion. Alfredo Lora MD FACR Liver Ultrasound 07/14/17 0000 Signed Impressions: Service Date/Time: , July 14, 2017 16:45 - CONCLUSION: 1. Small volume ascites. 2. Bilateral pleural effusions. 3. Sludge within the gallbladder with a top normal thickness of the gallbladder wall. No sonographic evidence to suggest acute cholecystitis. Pierce Ospina Jr., MD Upper Extremity Ultrasound 06/23/17 0000 Signed Impressions: Service Date/Time: June 20:03 - CONCLUSION: Noncompressibility right cephalic vein and left basilic vein consistent with venous thrombosis Trav Hsieh MD Lower Extremity Ultrasound 06/23/17 0000 Signed Impressions: Service Date/Time: June 20:16 - CONCLUSION: Normal examination. No evidence DVT Trav Hsieh MD Procedures * During previous hospitalization, rectosigmoidectomy with wedge resection of liver mass 05/26/17 * During this hospitalization... * INTUBATION 06/18/17 * EXTUBATION 07/07/17 * Excision of sacral decubitus, wound VAC placement 07/17/17 Assessment and Plan Disease Oriented Problem List: (1) recurrent respiratory failure, pneumonia (2) recurrent/persistent pneumonia, probable aspiration (3) recurrent/persistent pneumonia, probable aspiration (4) recurrent UTI with resistant Pseudomonas (5) altered mental status/delirium, likely multifactorial (6) recurrent rapid atrial fib (7) septic shock requiring intubation X 17 days (8) severe malnutrition/deconditioning (9) rectal cancer November 2016, s/p radiation/chemo and surgery (10) history of anxiety (11) history of COPD (12) remote history of pancreatitis (13) BPH Symptom Scale: (1) pain 0-10 Scale: Unable to quantify (2) dyspnea 0-10 Scale: Unable to quantify (3) confusion 0-10 Scale: Unable to quantify (4) anxiety 0-10 Scale: Unable to quantify (long history of anxiety) Pertinent Non-Medical Issues Psychosocial: for 51 years, 3 daughters, one daughter . 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 Spiritual: The patient has a Shinto background, but has been on affiliated with the jehovah's witness for many years, and the does not believe he would want a visit from a traffic observer or from hospital chaplains. Legal: The patient lacks capacity for decision-making at the time of the initial consultation, and it is uncertain whether he will regain that capacity. His is the decision making proxy. Ethical issues impacting care: None . Important Contacts Spouse: Quynh Armendariz [phone] Daughter: Alison Matthews [phone] . Prognosis The patient's debility and deconditioning has become quite profound, and he again is suffering from hypoxic respiratory failure. In addition, he has underlying recent metastatic rectal adenocarcinoma (although the post surgery scans did not indicate any obvious metastatic disease). Overall, his prognosis for complete recovery with return to work would seem to be quite poor. New findings of lung nodule 08/22/17, likely metastatic. Pt would not be a candidate for chemo, and oncology has recommended hospice. . Code Status: Full Code Plan * FULL CODE * DECISION-MAKING: The patient mental status and orientation fluctuates, may regain capacity for decision-making, however with ongoing confusion his is the decision making proxy. * GOALS: The overall goal is to get the patient back home, after a stay in rehab, even though he may remain quite weak and may even be nonambulatory. new ( likely metastatic) findings in the lung- per oncology, colorectal pt w no treatment options for cancer going forward due to debilitated status. Hospice was recommended and discussed today; their daughter Apr 2017 on hospice services after a withdrawal out of this area. attributes dtr to hospice and does NOT want hospice, and still expresses desire for pt to rehab and get better. Pt with limited participation- advise that ultimately the patients wishes should guide care going forward. * SYMPTOMS: --The patient endorses pain to his back/sacrum. he does have PRN norco 5 available, he has not used any doses. Nursing reports pain scores of 0. will cont to evaluate prn requirements/effectiveness cautious use of opiates given recent delirium/AMS --His delirium is resolving though mental status cont to fluctuate -- dyspnea has improved-tolerating room air; new nodule finding in L lung, likely metastatic. Pt high risk for further resp complications --poor oral intake- pt very weak, requires assist for meals, able to feed self some but requires set up. * Palliative Care will continue to follow this patient during this hospitalization, to be another supportive and consistent presence for the patient, , and daughters during this very difficult hospitalization and its multiple complications and setbacks. . Time Spent Total Floor Time (mins): 40 (chart review, PE, d/w Dr Segovia ,D/w Dr Geiger, d/ w pt,) Attestation To help prompt me to consider important information that might be impacting today's encounter and assessment, information from prior notes written by myself or my colleagues may have been "brought forward" into today's note. My signature on this note, however, is an attestation that I personally performed the exam, history, and/or decision-making noted today, and, unless otherwise indicated, the interactions with patient, family, and staff as well as the review of records all occurred today. I also attest that the listed assessment and stated plan reflect my best clinical judgment today based on the combination of historical information, prior notes, and today's exam/ interactions. When time spent is documented, it refers only to time spent today by the signer, or if indicated, combined time spent today by collaborating physician/nurse practitioner. Luz Ann Aug 23, 2017 13:39
[2017-08-23] MEDS: ACETAMINOPHEN/HYDROcodone 325 MG/5 MG TAB PO PRN ×2 (16:00→22:06)
--- NOTE | 2017-08-23 16:46 | PD.WCN.NOT ---
Neg Pressure Wound Therapy Wound Location Wound Location: Sacrum Wound Description Undermining: Undermining is noted between 10 to 2 o'clock Wound bed appearance: Wound is noted with 60% exposed pale red tissue, ~10% bone, and ~30% slough Periwound appearance: Other (blanchable erythema) Settings Suction: 125 mmHg, Continuous Intensity: Low Other Information: Bridged (left hip), Windowpaned, Mushroomed Foam type: Black Number of pieces: 2 Additonal Information Received call from Edith [facility] for wound VAC malfunction. Assessed wound VAC was not intact. Removed dressing in place with patient positioned to R side. Dakin's 0.125% soaked gauze was applied to sacral wound and left in place for 10 minutes. Removed Dakin's soaked gauze and applied wound VAC dressing to sacral wound and bridged to R upper anterior thigh. Yasmine Aragon [facility] Aug 23, 2017 16:46
[2017-08-23] MEDS: VIIBRYD 40 MG PO SCH (21:00)
[2017-08-23] MEDS: BUDESONIDE-FORMOTEROL 160/4.5 MCG INHALER INH SCH (21:00)
[2017-08-23] MEDS: QUEtiapine FUMARATE 25 MG TAB PO SCH (21:00)
[2017-08-23] MEDS: TAMSULOSIN HCL 0.4 MG CAP PO SCH (22:06)
[2017-08-24] VITALS (11 sets, daily range): BP systolic 102–129; BP diastolic 54–62; PULSE 80–99; RESP 18–24; TEMP 97.4–99.4; O2SAT 98–100
[2017-08-24] MEDS: RESP: ALBUTEROL 2.5 MG/IPRATROPIUM 0.5 MG NEB (SCH) NEB ×4 (00:20→23:53)
[2017-08-24] MEDS: DILTIAZEM HCL 60 MG TAB PO SCH ×4 (01:03→17:29)
[2017-08-24] MEDS: ACETAMINOPHEN/HYDROcodone 325 MG/5 MG TAB PO PRN ×3 (05:43→17:45)
[2017-08-24] MEDS: INSULIN ASPART SUPPLEMENTAL SCALE SQ SCH ×4 (08:00→20:49)
--- NOTE | 2017-08-24 08:13 | HHI.PR ---
Subjective . No complaints. No N or V. Stooling. Objective . VS-S Abd: soft,flat,nontender,Ileostomy with thick stool. Assessment/Plan . Stable. Severe Malnutrition and deconditioned Presumed Metastatic disease to lung Plan: Per , wants to continue to try to get to rehab to get strong enough to get home. D/C when stable and wound care and PT can continue. Luca Geiger MD Aug 24, 2017 08:13
[2017-08-24] MEDS: MEGESTROL ACETATE SUSP 400 MG/10 ML CUP PO SCH (10:09)
[2017-08-24] MEDS: VANCOMYCIN 500 MG VIAL (FOR ORAL USE ONLY) PO SCH ×4 (10:09→20:18)
[2017-08-24] MEDS: FAMOTIDINE 20 MG TAB PO SCH ×2 (10:10→20:18)
[2017-08-24] MEDS: FLUCONAZOLE 100 MG TAB PO SCH (10:10)
[2017-08-24] MEDS: DIGOXIN 0.125 MG TAB PO SCH (10:10)
[2017-08-24] MEDS: ENOXAPARIN SODIUM 40 MG/0.4 ML SYRINGE SQ SCH (10:10)
[2017-08-24] MEDS: BUDESONIDE-FORMOTEROL 160/4.5 MCG INHALER INH SCH ×2 (10:11→20:19)
[2017-08-24] MEDS: THIAMINE HCL 100 MG TAB PO SCH (10:11)
[2017-08-24] MEDS: TIOTROPIUM BROMIDE 18 MCG INH INH SCH (10:13)
[2017-08-24] MEDS: predniSONE 20 MG TAB PO SCH (10:17)
--- NOTE | 2017-08-24 10:27 | HHI.HCPN ---
Received telephone call from , Quynh. She states she will not be coming to the hospital today as she is home with the grand-kids. Upset about not being informed of Mr. Armendariz's transfer to another room, states she knows where he is now and was able to speak with him prior to calling palliative care. Reports he appeared to be fairly oriented during their conversation except for not knowing he was in a new room. She verbalizes her and Mr. Armendariz were able to speak last night regarding updated information on his medical condition from the medical team yesterday. They request medical team and staff remain positive when in his room and speaking with patient and family. She made comments like: * "We don't live our lives in doom and gloom" * "We accept what we cannot change but keep accomplishing what we can" * "We've had discussions and know what each other want and doesn't want; we have all our ducks in a row" * "The last thing we want right now is hospice" * "I want to get him home to see the grandkids" She reports "when he left our home to come into the hospital he told me our lives would never be the same after he walked out the door". Offered emotional support and active listening. She feels he knew when he was coming to the hospital that something was wrong. States she understands he has cancer "but pneumonia also causes lesions, or the fecal matter that went into his lungs and pneumonia could have caused his nerve endings to be irritated, or yes, it very well could be the cancer". Again states they do not wish to dwell on his diagnosis. Mrs. Armendariz is appreciative of palliative care support and desires a medical update later today. Palliative SHIFT ENGINEER informed. Palliative care will continue to follow throughout hospitalization. Will continue to gently discuss Mr. Armendariz's medical condition and expected trajectory/prognosis, etc. Cindi Ospina, BECKY Aug 24, 2017 10:27
--- NOTE | 2017-08-24 11:14 | HHI.HCPN ---
Reason for visit a. To assist with evaluation and management of symptoms including: Dyspnea , confusion, dysphagia b. To assist medical decision maker(s) with: better understanding of current medical conditions; weighing benefits/burdens of medical treatment options; making medical treatment decisions. . Subjective/Interval History Has been transferred to regular medical floor . Fluctuating mental status some periods of alert, cognitively sharp, with some confusion. Taking in some PO, several ensure daily. PT following 7 days week, OT working w pt as well. Repeat CT brain, chest w/ findings of new nodules probably metastatic disease/ 3.4 cm mass LUE. Oncology Dr Ryan reconsulted-- pt too debilitated for any chemotherapy, recommends hospice. Prior to my arrival to unit A. [place] [facility] SW received call from pt requesting update. also requested focusing on positive w pt, as they are aware he has a terminal condition and prefer not to discuss it everyday. She will not be in today due to caring for grandchildren at home. Pt seen in room, he is asleep though arouses easily. He is partially oriented, tells me his is home caring for grandchildren. He does not remember discussions yesterday w Dr Geiger . Gently explore that he has new findings which are currently stable, and resp status has improved, but may limit recovery at some point. He expresses "thats not good" seems to have some understanding of. Gently explore intubation status with him and if it were ever needed, if he would want mech vent. He indicates that his would not like that. He indicates that he should talk more w his about that before making any decisions for DNR/DNI. He denies pain. Denies GI complaints. Tells me he is working on his second breakfast ensure, I assisted him to open 2nd bottle, he is able to hold/drink it. He denies pain, complains of feeling tired overall. Denies dyspnea. He falls asleep easily. . Family/friend interactions Call to update , VM left. I received a call back from patient Mrs. Armendariz. Updated her on patient current clinical status, the vital signs etc.pt stable, post transfer out of ICU. Reported that he was drinking Ensure well during my visit, that he expressed feeling Ok, but tired. She expresses frustration that she was not notified of transfer by nursing. Attempted to review my discussion with him regarding if he had any recollection of conversations w /Dr from prior day, she becomes very upset and angry and tells me I should not of discussed this with him, I attempted to explore with her what I actually did discuss which was just his level of recall of any new findings-however she was quite upset and indicated "I had overstepped my bounds ", she informed that she had explicitly discussed with palliative social science instructor that "we were not to discuss any of his conditions with him", she told me she could no longer trust me and that she did not wish for me to see him anymore and she then hung up. . Advance Directives Living Will: Never completed Health Care Surrogate: Never completed Durable Power of Network Support Specialist: Never completed Objective Vital Signs Date Time Temp Pulse Resp B/P (MAP) Pulse Ox O2 Delivery O2 Flow Rate FiO2 08/24/17 10:08 98.4 95 18 102/56 (71) 100 08/24/17 07:30 100 21 08/24/17 05:47 97.4 83 24 110/62 (78) 100 08/24/17 02:34 99 08/24/17 00:20 100 Nasal Cannula 2.00 08/24/17 00:16 98.9 82 22 106/56 (73) 100 08/23/17 22:03 100 Nasal Cannula 2.00 08/23/17 21:49 100.4 95 22 110/58 (75) 100 08/23/17 18:02 99.4 116 18 133/70 (91) 97 08/23/17 16:00 100.2 115 24 124/64 (84) 97 08/23/17 12:00 99.9 108 23 109/59 (76) 93 08/23/17 12:00 115 Intake & Output 08/24/17 08/24/17 07:00 19:00 Intake Total 300 ml Output Total 1500 ml Balance -1200 ml Intake Oral 300 ml Output Urine Total 1200 ml Stool Total 300 ml Physical Exam CONSTITUTIONAL/GENERAL: This is a weak, extremely thin, alert patient, in no apparent distress. TUBES/LINES/DRAINS: Peripheral IV bilateral upper extremities, wound VAC, Han catheter, NC O2 SKIN: No jaundice, rashes. A wound VAC is present on the sacral /hip wound- draining to bedside canister did not visualize dressing . Few scattered Ecchymoses on upper extremities, a few small skin tears. Skin warm/dry. CARDIOVASCULAR: Irregular without murmurs. No JVD. Peripheral pulses symmetric. RESPIRATORY/CHEST: Symmetric, unlabored respirations.On NC. Clear to auscultation. Breath sounds equal bilaterally. No wheezes, rales, or rhonchi. GASTROINTESTINAL: Abdomen soft, flat, non-tender, nondistended. No palpable masses. Ileostomy present right abdomen. Bowel sounds present. MUSCULOSKELETAL: Extremities without clubbing, cyanosis, or edema. + Muscle atrophy to all 4 extremities. No joint tenderness or effusion noted. No mottling or clubbing. NEUROLOGICAL: sleeping, easily awakens, orientedx1-2. Cooperative. some limited insight-though forgetful. Moves all 4 extremities, weak globally. PSYCHIATRIC: No obvious anxiety or depression or evidence of psychosis Diagnostic Tests Laboratory Laboratory Tests Test 08/22/17 08:59 08/23/17 03:38 08/23/17 14:21 White Blood Count 13.5 TH/MM3 (4.0-11.0) 10.8 TH/MM3 (4.0-11.0) Red Blood Count 2.73 MIL/MM3 (4.50-5.90) 2.77 MIL/MM3 (4.50-5.90) Hemoglobin 8.2 GM/DL (13.0-17.0) 8.2 GM/DL (13.0-17.0) Hematocrit 25.0 % (39.0-51.0) 25.6 % (39.0-51.0) Mean Corpuscular Volume 91.8 FL (80.0-100.0) 92.4 FL (80.0-100.0) Mean Corpuscular Hemoglobin 30.2 PG (27.0-34.0) 29.6 PG (27.0-34.0) Mean Corpuscular Hemoglobin Concent 32.9 % (32.0-36.0) 32.1 % (32.0-36.0) Red Cell Distribution Width 20.9 % (11.6-17.2) 21.5 % (11.6-17.2) Platelet Count 178 TH/MM3 (150-450) 189 TH/MM3 (150-450) Mean Platelet Volume 9.7 FL (7.0-11.0) 9.2 FL (7.0-11.0) Neutrophils (%) (Auto) 88.2 % (16.0-70.0) 86.7 % (16.0-70.0) Lymphocytes (%) (Auto) 3.0 % (9.0-44.0) 5.4 % (9.0-44.0) Monocytes (%) (Auto) 7.0 % (0.0-8.0) 7.1 % (0.0-8.0) Eosinophils (%) (Auto) 0.4 % (0.0-4.0) 0.5 % (0.0-4.0) Basophils (%) (Auto) 1.4 % (0.0-2.0) 0.3 % (0.0-2.0) Neutrophils # (Auto) 11.9 TH/MM3 (1.8-7.7) 9.4 TH/MM3 (1.8-7.7) Lymphocytes # (Auto) 0.4 TH/MM3 (1.0-4.8) 0.6 TH/MM3 (1.0-4.8) Monocytes # (Auto) 0.9 TH/MM3 (0-0.9) 0.8 TH/MM3 (0-0.9) Eosinophils # (Auto) 0.0 TH/MM3 (0-0.4) 0.1 TH/MM3 (0-0.4) Basophils # (Auto) 0.2 TH/MM3 (0-0.2) 0.0 TH/MM3 (0-0.2) CBC Comment DIFF FINAL DIFF FINAL Differential Comment Blood Urea Nitrogen 11 MG/DL (7-18) 14 MG/DL (7-18) Creatinine 0.70 MG/DL (0.60-1.30) 0.61 MG/DL (0.60-1.30) Random Glucose 154 MG/DL (74-106) 151 MG/DL (74-106) Total Protein 5.5 GM/DL (6.4-8.2) 5.5 GM/DL (6.4-8.2) Albumin 1.6 GM/DL (3.4-5.0) 1.7 GM/DL (3.4-5.0) Calcium Level 7.6 MG/DL (8.5-10.1) 8.0 MG/DL (8.5-10.1) Phosphorus Level 1.6 MG/DL (2.5-4.9) 2.7 MG/DL (2.5-4.9) Magnesium Level 1.9 MG/DL (1.5-2.5) 1.9 MG/DL (1.5-2.5) Alkaline Phosphatase 276 U/L (45-117) 308 U/L (45-117) Aspartate Amino Transf (AST/SGOT) 20 U/L (15-37) 17 U/L (15-37) Alanine Aminotransferase (ALT/SGPT) 36 U/L (12-78) 36 U/L (12-78) Total Bilirubin 0.8 MG/DL (0.2-1.0) 0.6 MG/DL (0.2-1.0) Sodium Level 139 MEQ/L (136-145) 141 MEQ/L (136-145) Potassium Level 3.9 MEQ/L (3.5-5.1) 4.3 MEQ/L (3.5-5.1) Chloride Level 107 MEQ/L (98-107) 111 MEQ/L (98-107) Carbon Dioxide Level 20.8 MEQ/L (21.0-32.0) 22.8 MEQ/L (21.0-32.0) Anion Gap 11 MEQ/L (5-15) 7 MEQ/L (5-15) Estimat Glomerular Filtration Rate 112 ML/MIN (>89) 131 ML/MIN (>89) Carcinoembryonic Antigen 5.3 NG/ML (0.2-5.0) Result Diagram: 08/23/17 0338 08/23/17 0338 Imaging Last Impressions Chest X-Ray 08/23/17 0600 Signed Impressions: Service Date/Time: Wednesday, August 23, 2017 05:27 - CONCLUSION: Left base atelectasis or consolidation. Luca Rivera MD Head CT 08/22/17 0000 Signed Impressions: Service Date/Time: Tuesday, August 22, 2017 12:34 - CONCLUSION: Atrophy, noticed mass effect disease. Lack of contrast makes detection of subtle disease difficult.. Alfredo Lora MD FACR Chest CT 08/22/17 0000 Signed Impressions: Service Date/Time: Tuesday, August 22, 2017 12:28 - CONCLUSION: Patchy airspace disease in both lungs New nodules probably metastatic disease. Occasionally inflammatory process could have similar appearance. Alfredo Lora MD FACR Abdomen X-Ray 08/09/17 0600 Signed Impressions: Service Date/Time: Wednesday, August 09, 2017 03:49 - CONCLUSION: 1. Nonspecific bowel gas pattern without change. 2. Left ureteral stent catheter remains in place. Norman Mitchell MD Gastrostomy Tube Placement 08/09/17 0000 Signed Impressions: Service Date/Time: Wednesday, August 09, 2017 17:54 - CONCLUSION: Unsuccessful gastrostomy tube placement secondary to overlying bowel. CT scan will be required for placement Eddie Saucedo MD ADDENDUM: Review of the CT scan demonstrates the anatomy would require placement between the ribs which would be suboptimal. This was discussed with Dr. Luca Saucedo MD Abdomen/Pelvis CT 08/06/17 0000 Signed Impressions: Service Date/Time: Monday, August 07, 2017 02:34 - CONCLUSION: 1. Diffusely dilated small bowel extending to the ileostomy. There is a small volume of free fluid in the abdomen. 2. Abnormal airspace consolidation at the lung bases bilaterally with bilateral pleural effusions. 3. There is a open sacral decubitus wound extending to the adjacent coccyx and sacrum. Luca Torres MD Cholangiopancreatography MRI 07/15/17 0000 Signed Impressions: Service Date/Time: Saturday, July 15, 2017 15:02 - CONCLUSION: 1. Ascites with small bilateral pleural effusions. 2. Small contracted gallbladder without definite stones 3. No definite common duct stone. 4. Pancreas obscured by motion. Alfredo Lora MD FACR Liver Ultrasound 07/14/17 0000 Signed Impressions: Service Date/Time: July 16:45 - CONCLUSION: 1. Small volume ascites. 2. Bilateral pleural effusions. 3. Sludge within the gallbladder with a top normal thickness of the gallbladder wall. No sonographic evidence to suggest acute cholecystitis. Pierce Ospina Jr., MD Upper Extremity Ultrasound 06/23/17 0000 Signed Impressions: Service Date/Time: June 20:03 - CONCLUSION: Noncompressibility right cephalic vein and left basilic vein consistent with venous thrombosis Trav Hsieh MD Lower Extremity Ultrasound 06/23/17 0000 Signed Impressions: Service Date/Time: June 20:16 - CONCLUSION: Normal examination. No evidence DVT Trav Hsieh MD Procedures * During previous hospitalization, rectosigmoidectomy with wedge resection of liver mass 05/26/17 * During this hospitalization... * INTUBATION 06/18/17 * EXTUBATION 07/07/17 * Excision of sacral decubitus, wound VAC placement 07/17/17 Assessment and Plan Disease Oriented Problem List: (1) recurrent respiratory failure, pneumonia (2) recurrent/persistent pneumonia, probable aspiration (3) recurrent/persistent pneumonia, probable aspiration (4) recurrent UTI with resistant Pseudomonas (5) altered mental status/delirium, likely multifactorial (6) recurrent rapid atrial fib (7) septic shock requiring intubation X 17 days (8) severe malnutrition/deconditioning (9) rectal cancer November 2016, s/p radiation/chemo and surgery (10) history of anxiety (11) history of COPD (12) remote history of pancreatitis (13) BPH Symptom Scale: (1) pain 0-10 Scale: Unable to quantify (2) dyspnea 0-10 Scale: Unable to quantify (3) confusion 0-10 Scale: Unable to quantify (4) anxiety 0-10 Scale: Unable to quantify (long history of anxiety) Pertinent Non-Medical Issues Psychosocial: for 51 years, 3 daughters, one daughter . 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 Spiritual: The patient has a Anabaptist background, but has been on affiliated with the scientologist for many years, and the does not believe he would want a visit from a professor of pathology or from hospital chaplains. Legal: The patient lacks capacity for decision-making at the time of the initial consultation, and it is uncertain whether he will regain that capacity. His is the decision making proxy. Ethical issues impacting care: None . Important Contacts Spouse: Quynh Armendariz [phone] Daughter: Alison Matthews [phone] . Prognosis The patient's debility and deconditioning has become quite profound, and he again is suffering from hypoxic respiratory failure. In addition, he has underlying recent metastatic rectal adenocarcinoma (although the post surgery scans did not indicate any obvious metastatic disease). Overall, his prognosis for complete recovery with return to work would seem to be quite poor. New findings of lung nodule 08/22/17, likely metastatic. Pt would not be a candidate for chemo, and oncology has recommended hospice. . Code Status: Full Code Plan * FULL CODE * DECISION-MAKING: The patient mental status and orientation fluctuates, may regain capacity for decision-making, however with ongoing confusion his is the decision making proxy. * GOALS: The overall goal is to get the patient back home, after a stay in rehab, even though he may remain quite weak and may even be nonambulatory. new ( likely metastatic) findings in the lung- per oncology, colorectal pt w no treatment options for cancer going forward due to debilitated status. Hospice was recommended and discussed 08/23; their daughter Apr 2017 on hospice services after a withdrawal out of this area. attributes dtr to hospice and does NOT want hospice, and still expresses desire for pt to rehab and get better. Pt with limited participation- advise that ultimately the patients wishes should guide care going forward. 1 10/25, VM left for , no changes to goals per her d/w palliative SW. She also requests medical team avoid discussing negative aspects of pt conditions as "they are aware he will from this". later spoke w , she was very upset by my update and requested I no longer see pt. Palliative SW will cont to follow to provide support, and palliative remains available as pt still w significant illness. * SYMPTOMS: --previously endorses pain to his back/sacrum. he does have PRN norco 5 available, he has not used any doses. Nursing reports pain scores of 0. will cont to evaluate prn requirements/effectiveness cautious use of opiates given recent delirium/AMS --His delirium is resolving though mental status cont to fluctuate -- dyspnea has improved-tolerating room air; new nodule finding in L lung, likely metastatic. Pt high risk for further resp complications- requiring NC o2 today --poor oral intake- pt very weak, requires assist for meals, able to feed self some but requires set up. +drinking 2 ensure for each meal. * Palliative Care will continue to follow this patient during this hospitalization, to be another supportive and consistent presence for the patient, , and daughters during this very difficult hospitalization and its multiple complications and setbacks. . Time Spent Total Floor Time (mins): 25 (chart review, PE, dw/ nurse,pt) Attestation To help prompt me to consider important information that might be impacting today's encounter and assessment, information from prior notes written by myself or my colleagues may have been "brought forward" into today's note. My signature on this note, however, is an attestation that I personally performed the exam, history, and/or decision-making noted today, and, unless otherwise indicated, the interactions with patient, family, and staff as well as the review of records all occurred today. I also attest that the listed assessment and stated plan reflect my best clinical judgment today based on the combination of historical information, prior notes, and today's exam/ interactions. When time spent is documented, it refers only to time spent today by the signer, or if indicated, combined time spent today by collaborating physician/nurse practitioner. Luz Ann Aug 24, 2017 11:14
[2017-08-24] MEDS: SODIUM HYPOCHLORITE 0.125% 500 ML BTL TOPICAL SCH (13:00)
--- NOTE | 2017-08-24 19:43 | HHI.PR ---
Subjective Remarks Patient c/o pain in sacral area. Denies cp/sob. appetite is still poor. Objective Vitals Vital Signs Date Time Temp Pulse Resp B/P (MAP) Pulse Ox O2 Delivery O2 Flow Rate FiO2 08/24/17 17:28 98.6 91 18 106/54 (71) 100 08/24/17 17:27 100 Room Air 08/24/17 12:55 98.2 82 22 118/57 (77) 98 08/24/17 10:08 98.4 95 18 102/56 (71) 100 08/24/17 08:09 85 08/24/17 07:30 100 21 08/24/17 05:47 97.4 83 24 110/62 (78) 100 08/24/17 02:34 99 08/24/17 00:20 100 Nasal Cannula 2.00 08/24/17 00:16 98.9 82 22 106/56 (73) 100 08/23/17 22:03 100 Nasal Cannula 2.00 08/23/17 21:49 100.4 95 22 110/58 (75) 100 I/O 08/23/17 08/23/17 08/23/17 08/24/17 08/24/17 08/24/17 07:00 15:00 23:00 07:00 15:00 23:00 Intake Total 684 ml 100 ml 200 ml 1240 ml Output Total 1315 ml 1500 ml 1400 ml Balance -631 ml -1400 ml 200 ml -160 ml Intake Oral 600 ml 100 ml 200 ml 1240 ml IV Total 84 ml Output Urine Total 750 ml 1200 ml 1250 ml Stool Total 565 ml 300 ml 150 ml Drainage Total 0 ml Result Diagram: 08/23/17 0338 08/23/17 0338 Imaging Last Impressions Chest X-Ray 08/23/17 0600 Signed Impressions: Service Date/Time: Wednesday, August 23, 2017 05:27 - CONCLUSION: Left base atelectasis or consolidation. Luca Rivera MD Head CT 08/22/17 0000 Signed Impressions: Service Date/Time: Tuesday, August 22, 2017 12:34 - CONCLUSION: Atrophy, noticed mass effect disease. Lack of contrast makes detection of subtle disease difficult.. Alfredo Lora MD FACR Chest CT 08/22/17 0000 Signed Impressions: Service Date/Time: Tuesday, August 22, 2017 12:28 - CONCLUSION: Patchy airspace disease in both lungs New nodules probably metastatic disease. Occasionally inflammatory process could have similar appearance. Alfredo Lora MD FACR Abdomen X-Ray 08/09/17 0600 Signed Impressions: Service Date/Time: Wednesday, August 09, 2017 03:49 - CONCLUSION: 1. Nonspecific bowel gas pattern without change. 2. Left ureteral stent catheter remains in place. Norman Mitchell MD Gastrostomy Tube Placement 08/09/17 0000 Signed Impressions: Service Date/Time: Wednesday, August 09, 2017 17:54 - CONCLUSION: Unsuccessful gastrostomy tube placement secondary to overlying bowel. CT scan will be required for placement Eddie Saucedo MD ADDENDUM: Review of the CT scan demonstrates the anatomy would require placement between the ribs which would be suboptimal. This was discussed with Dr. Luca Saucedo MD Abdomen/Pelvis CT 08/06/17 0000 Signed Impressions: Service Date/Time: Monday, August 07, 2017 02:34 - CONCLUSION: 1. Diffusely dilated small bowel extending to the ileostomy. There is a small volume of free fluid in the abdomen. 2. Abnormal airspace consolidation at the lung bases bilaterally with bilateral pleural effusions. 3. There is a open sacral decubitus wound extending to the adjacent coccyx and sacrum. Luca Torres MD Cholangiopancreatography MRI 07/15/17 0000 Signed Impressions: Service Date/Time: Saturday, July 15, 2017 15:02 - CONCLUSION: 1. Ascites with small bilateral pleural effusions. 2. Small contracted gallbladder without definite stones 3. No definite common duct stone. 4. Pancreas obscured by motion. Alfredo Lora MD FACR Liver Ultrasound 07/14/17 0000 Signed Impressions: Service Date/Time: July 16:45 - CONCLUSION: 1. Small volume ascites. 2. Bilateral pleural effusions. 3. Sludge within the gallbladder with a top normal thickness of the gallbladder wall. No sonographic evidence to suggest acute cholecystitis. Pierce Ospina Jr., MD Upper Extremity Ultrasound 06/23/17 0000 Signed Impressions: Service Date/Time: June 20:03 - CONCLUSION: Noncompressibility right cephalic vein and left basilic vein consistent with venous thrombosis Trav Hsieh MD Lower Extremity Ultrasound 06/23/17 0000 Signed Impressions: Service Date/Time: June 20:16 - CONCLUSION: Normal examination. No evidence DVT Trav Hsieh MD Objective Remarks GENERAL: NAD, A&Ox3, cachectic HEAD: Normocephalic. NECK: Supple, trachea midline. No lymphadenopathy. EYES: No scleral icterus. No injection or drainage. CARDIOVASCULAR: Regular rate and rhythm without murmurs, gallops, or rubs. RESPIRATORY: Breath sounds equal bilaterally. No accessory muscle use. GASTROINTESTINAL: abdomen is soft, non tender, non distended. MUSCULOSKELETAL: No cyanosis, or edema. Sacral ulcer has wound VAC in place. SKIN: Warm and dry. NEURO: No focal neurological deficitis. PSYCH: Flattened affect. Medications and IVs Current Medications Medications (Trade) Dose Ordered Sig/[place] Route Start Time Stop Time Status Last Admin (Zofran Inj) 4 mg Q4H PRN IV PUSH 06/17/17 22:00 08/23/17 04:43 Miscellaneous Information Patient in critical care unit? Ass... Q361D .XX 06/18/17 05:45 06/18/17 05:45 (Albuterol Neb) 2.5 mg Q2HR NEB PRN NEB 06/29/17 14:30 08/11/17 08:53 (Symbicort 160-4.5 Inh) 1 puff Q12HR INH 07/07/17 09:00 08/25/17 09:46 (Lomotil Tab) 1 tab Q6H PRN PO 07/10/17 11:00 (NovoLOG SUPPLEMENTAL SCALE) 1 ACHS SQ 07/11/17 17:00 08/24/17 20:49 (D50w (Vial) Inj) 50 ml UNSCH PRN IV PUSH 07/11/17 15:00 (Glucagon Inj) 1 mg UNSCH PRN OTHER 07/11/17 15:00 Patient Own Medication PT OWN MED: VIIB... HS PO 07/15/17 21:00 08/24/17 20:19 (Dakin'S 0.125% Soln) 500 ml MoWeFr TOPICAL 07/20/17 13:00 08/22/17 16:00 (Flomax) 0.4 mg HS PO 07/23/17 21:00 08/24/17 20:18 (Megace Liq) 400 mg DAILY PO 08/04/17 09:00 Future hold 08/25/17 09:45 (Lanoxin) 0.125 mg DAILY PO 08/06/17 09:00 Future hold 08/25/17 09:45 (Lovenox Inj) 40 mg Q24H SQ 08/10/17 09:00 08/25/17 09:45 (Lopressor Inj) 5 mg Q5M PRN IV PUSH 08/13/17 02:45 08/23/17 04:43 (Cardizem) 90 mg Q6HR PO 08/14/17 00:00 Future hold 08/25/17 13:31 (Pill Splitter) 1 ea UNSCH PRN OTHER 08/14/17 08:00 (Spiriva Inh) 18 mcg DAILY INH 08/15/17 09:00 08/25/17 09:45 (Haldol Inj) 2 mg Q4H PRN IV 08/15/17 09:00 08/23/17 04:31 (Pepcid) 20 mg BID PO 08/16/17 21:00 08/25/17 09:45 ([place] 5-325 Mg) 1 tab Q6H PRN PO 08/20/17 07:00 08/25/17 13:32 (Deltasone) 20 mg DAILY PO 08/20/17 09:00 08/25/17 09:45 (Vitamin B1) 100 mg DAILY PO 08/21/17 09:00 08/25/17 09:45 (SEROquel) 25 mg HS PO 08/22/17 21:00 08/24/17 20:18 (Duoneb Neb) 1 ampule Q8HR NEB NEB 08/23/17 08:00 08/25/17 09:14 Urinary Catheter: No Vascular Central Line Catheter: No A/P Problem List: (1) Nausea & vomiting ICD Code: R11.2 - Nausea with vomiting, unspecified Status: Acute (2) Tachycardia ICD Code: R00.0 - Tachycardia, unspecified Status: Acute (3) Hypertension ICD Code: I10 - Essential (primary) hypertension Status: Chronic (4) Leukocytosis ICD Code: D72.829 - Elevated white blood cell count, unspecified Status: Acute (5) Acute kidney injury ICD Code: N17.9 - Acute kidney failure, unspecified Status: Resolved (6) Cancer of rectum ICD Code: C20 - Malignant neoplasm of rectum (7) 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 Code: Z93.2 - Ileostomy status Status: Chronic (8) Sepsis ICD Code: A41.9 - Sepsis, unspecified organism Status: Acute (9) Pseudomonas septicemia ICD Code: A41.52 - Sepsis due to Pseudomonas Status: Acute (10) Pseudomonas urinary tract infection ICD Code: N39.0 - Urinary tract infection, site not specified; B96.5 - Pseudomonas (aeruginosa) (mallei) (pseudomallei) as the cause of diseases classified elsewhere Status: Acute (11) Hyperchloremic metabolic acidosis ICD Code: E87.2 - Acidosis Status: Acute Assessment and Plan 67-year-old male with metastatic colon cancer status post colectomy with end ileostomy. He originally presented to the hospital with severe C. difficile ileitis and septic shock. He had a prolonged mechanical ventilation and ICU course. 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 The patient had problems of ileus as well. The patient was then transferred again to the intensive care unit due to respiratory distress and increasing in oxygen requirement. At the time the patient had some episodes of vomiting and a high clinical suspicion for aspiration pneumonia event was suspected at the time. On the second admission to intensive care unit the patient's respiratory status slowly improved. He had a very difficult to control atrial fibrillation with RVR, which during previous illnesses were not rate controlled despite medication and multiple cardioversion attempts. Acute hypoxemic respiratory failure-resolved COPD with exacerbation Aspiration pneumonia Persistent bilateral hilar and infrahilar infiltrates, rule out metastatic disease Diana UTI Pulmonary Edema-improved HCAP with Pseudomonas status post treatment Agitated Delirium Atrial fibrillation with intermittent rapid ventricular response, now in sinus tach C Diff ileitis UTI with Pseudomonas s/p treatment s/p Pseudomonas bacteremia s/p treatment s/p Partial resection of the left ureter with anastomosis and placement of double-J stent Recurrent ileus Acute protein calorie malnutrition- severe. Metastatic colon cancer s/p resection Malnutrition with weight loss History of ITP CT of the chest 08/22/17 shows 3.4 cm mass in left lower lobe, and multiple peripheral nodules consistent with metastatic disease. Dr. Ryan from oncology reconsulted and Ct reviewed with him. recommends comfort measures and hospice at this time Palliative care is following Delirium is much improved and resolving. CT of the brain to rule out metastatic disease-negative Respiratory status improved, acceptable oxygen saturations on RA. CEA 5.3 08/22 UTI with diana. Diflucan started 08/17, Han replaced 08/17 - treated and improved, Use when necessary Haldol and low dose Ativan. Continue Vibrrid. Previously on melatonin which was discontinued. Discontinued Zyprexa Reglan . DCd Perocet, Lortab 5/325 PRN pain 5-10 Continue by mouth vancomycin, continue Diflucan for Diana UTI. (IV Zosyn and IV Flagyl discontinued per ID 08/16) Previous Pseudomonas bacteremia UTI and HCAP, status post treatment Lasix DCd on 08/19/17 Prednisone 20 mg PO daily. Continue Symbicort, Spiriva, EzPAP, acapella, DuoNeb' s Relative contraindication of BiPAP being high aspiration risk, ileus, no absolute contraindication IR, GI was unable to place PEG tube. D/W Dr. Pelayo re: ureteral stent removal- recommended postponing until more stable Cardizem to 90 mg po q6h. PO Digoxin. Metoprolol 5mg iv q4h PRN for HR control. NSR Stopped amio infusion due to previous liver enzyme elevation. AVOID AMIO Aggressively replace electrolytes, target mg > 2.0, k > 4.0 Lovenox for DVT prophylaxis, famotidine for GI prophylaxis PT/OT up to chair daily Regular basic diet. Megace for appetite stimulation. Off TPN Cathectic, continues to lose weight. Dietary consulted for recommendations, ensure added Avoid PICC replacement and TPN due to increased risk of infection, including fungal infection. I discussed with Dr. Adams 08/21 and she agrees Problem Qualifiers (1) Hypertension: Qualified Codes: I10 - Essential (primary) hypertension Chad Marrero MD Aug 24, 2017 19:43
[2017-08-24] MEDS: QUEtiapine FUMARATE 25 MG TAB PO SCH (20:18)
[2017-08-24] MEDS: TAMSULOSIN HCL 0.4 MG CAP PO SCH (20:18)
[2017-08-24] MEDS: VIIBRYD 40 MG PO SCH (20:19)
[2017-08-25] VITALS (9 sets, daily range): BP systolic 107–119; BP diastolic 55–70; PULSE 86–97; RESP 16–22; TEMP 98.2–99.3; O2SAT 96–100
[2017-08-25] MEDS: DILTIAZEM HCL 60 MG TAB PO SCH ×4 (00:11→18:00)
[2017-08-25] MEDS: ACETAMINOPHEN/HYDROcodone 325 MG/5 MG TAB PO PRN ×3 (00:11→22:02)
[2017-08-25] MEDS: INSULIN ASPART SUPPLEMENTAL SCALE SQ SCH ×4 (08:00→21:00)
[2017-08-25] MEDS: RESP: ALBUTEROL 2.5 MG/IPRATROPIUM 0.5 MG NEB (SCH) NEB ×3 (09:14→23:32)
[2017-08-25] MEDS: VANCOMYCIN 500 MG VIAL (FOR ORAL USE ONLY) PO SCH (09:45)
[2017-08-25] MEDS: DIGOXIN 0.125 MG TAB PO SCH (09:45)
[2017-08-25] MEDS: MEGESTROL ACETATE SUSP 400 MG/10 ML CUP PO SCH (09:45)
[2017-08-25] MEDS: THIAMINE HCL 100 MG TAB PO SCH (09:45)
[2017-08-25] MEDS: TIOTROPIUM BROMIDE 18 MCG INH INH SCH (09:45)
[2017-08-25] MEDS: ENOXAPARIN SODIUM 40 MG/0.4 ML SYRINGE SQ SCH (09:45)
[2017-08-25] MEDS: predniSONE 20 MG TAB PO SCH (09:45)
[2017-08-25] MEDS: FAMOTIDINE 20 MG TAB PO SCH ×2 (09:45→22:03)
[2017-08-25] MEDS: BUDESONIDE-FORMOTEROL 160/4.5 MCG INHALER INH SCH ×2 (09:46→22:02)
--- NOTE | 2017-08-25 12:45 | HHI.IDPN ---
Note Infectious Disease Note Patient is alert. No complaints Afebrile. On O2 via nasal canula. Admitted to the hospital with weakness, abdominal pain and nausea. The patient is status post anterior resection of colon and rectal areas and anastomosis along with a diverting ileostomy and also resection of a segment of left ureter with ureteral anastomosis and double-J stent placement three weeks prior. PAST MEDICAL HISTORY: 1. Hypertension. 2. Left knee surgery. 3. Metastatic colon cancer status post resection and colo-anal anastomosis and also resection and re-anastomosis of the left ureter with double-J stent placement. ALLERGIES: CODEINE. ABX: Vancomycin PO. Diflucan PO. OBJECTIVE: Vital Signs Date Time Temp Pulse Resp B/P (MAP) Pulse Ox O2 Delivery O2 Flow Rate FiO2 08/25/17 10:46 Nasal Cannula 08/25/17 09:43 98.8 86 16 107/55 (72) 97 08/25/17 09:16 100 08/25/17 06:25 100 Room Air 08/25/17 04:52 99.3 87 20 114/63 (80) 97 08/25/17 00:13 99.2 97 22 107/59 (75) 97 08/24/17 21:30 21 08/24/17 20:14 99.4 92 129/56 (80) 98 08/24/17 20:01 80 08/24/17 17:28 98.6 91 18 106/54 (71) 100 08/24/17 17:27 100 Room Air 08/24/17 12:55 98.2 82 22 118/57 (77) 98 Laboratory Tests Test 08/23/17 14:21 Phosphorus Level 2.7 MG/DL IMAGING: Chest X-Ray 08/23/17 0600 Signed Impressions: Service Date/Time: Wednesday, August 23, 2017 05:27 - CONCLUSION: Left base atelectasis or consolidation. Luca Rivera MD Chest X-Ray 08/21/17 0000 Signed Impressions: Service Date/Time: Monday, August 21, 2017 07:21 - CONCLUSION: Bilateral perihilar patchiness consistent with probable pneumonia. Clinical correlation is recommended. Yefri Israel MD Chest X-Ray 08/18/17 0600 Signed Impressions: Service Date/Time: August 02:38 - CONCLUSION: Stable patchy partially consolidative bilateral lower lung infiltrates. Pierce Groves MD PHYSICAL EXAMINATION: GENERAL: No acute distress. HEENT: No icterus. Oropharynx mucosa dry. NECK: Supple. No swelling. LUNGS: Decreased breath sounds. HEART: Regular S1-S2 without murmurs, rubs or gallops. ABDOMEN: Positive bowel sounds. Soft. Non tender. EXTREMITIES: No clubbing or cyanosis, edema. SKIN: No rash. NEUROLOGIC: Nonfocal. PSYCH: Calm and cooperative. IMPRESSION: 1. Post treatment for Severe sepsis/ Bandemia. Status post recent surgery for rectal cancer and recent ureteral resection and double J ureteral stent. 2. C difficile colitis. Pseudomembranous enteritis/sepsis. 3. Acute respiratory failure. Extubated. 4. Pseudomonas pneumonia and UTI. Treated and improved. 5. Leukocytosis. Alisha UTI. treated. 6. Prior UTI - Pseudomonas. 7. Hazy infiltrates on CXR. ? atelectasis. RECOMMENDATIONS: Stop Fluconazole. Stop Vancomycin. Monitor clinical status and temp. I will see patient prn. El Espinoza MD Aug 25, 2017 12:45
--- NOTE | 2017-08-25 13:09 | HHI.HCPN ---
Received voicemail from Mr. Armendariz's daughter, Laney. She informs me Mrs. Armendariz has caught a cold from the grandchildren and will not be in to visit today. Requests a call back with update. Supportive visit with Mr. Armendariz. No family/friends at bedside. Upon entrance he appears to be sleeping, easily awakens to verbal stimuli. Tells me he is feeling so-so today, tired from not getting a good night sleep. Reports some pain in the back area and states he believes he will have a wound care visit today to address. States he requested pain medication but is unsure if he received it yet. Spoke with nurse, she is on her way in to provide pain medication. Nurse reports she has spoken with daughter and provided update. Lab in for blood draws. Spoke with Dr. Garcia. Then spoke with daughter, Laney. Update provided. Answered all her questions and concerns to the best of my ability. Family is questioning G-J Tube placement "because it has already failed 4 times and mom and dad are over it". Offered emotional support. Spoke with disease case manager rn on the floor. Inquired about rehab placement status to ensure he remains accepted to [facility] as family is wanting to "get him out of here as soon as possible". Updated daughter Laney regarding all of the above and she is very appreciative of update. Palliative care will continue to follow throughout hospitalization. Cindi Ospina, SLOTS MANAGER Aug 25, 2017 13:09
[2017-08-25 13:32] LABS: AUTOMATED NEUTROPHIL # 9.3 TH/MM3 (1.8-7.7); BASOPHIL # 0.1 TH/MM3 (0-0.2); BASOPHIL % 0.6 % (0.0-2.0); EOSINOPHIL # 0.1 TH/MM3 (0-0.4); EOSINOPHIL % 0.7 % (0.0-4.0); HEMATOCRIT 26.4 % (39.0-51.0); HEMO FLAGS DIFF FINAL; LYMPH % 5.4 % (9.0-44.0); LYMPHOCYTE # 0.6 TH/MM3 (1.0-4.8); MEAN CELL VOLUME 93.6 FL (80.0-100.0); MEAN CORPUSCULAR HEMOGLOBIN 30.6 PG (27.0-34.0); MEAN CORPUSCULAR HGB CONC 32.7 % (32.0-36.0); MONO % 6.1 % (0.0-8.0); NEUT % 87.2 % (16.0-70.0); PLATELET COUNT 162 TH/MM3 (150-450); RED BLOOD COUNT 2.82 MIL/MM3 (4.50-5.90); RED CELL DISTRIBUTION WIDTH 20.8 % (11.6-17.2); WHITE BLOOD COUNT 10.7 TH/MM3 (4.0-11.0)
--- NOTE | 2017-08-25 15:21 | PD.WOU.PN ---
Patient Intake Chief Complaint Sacral Ulcer Consult Requested by Primary Care Physician Non-Staff History of Present Illness Patient seen by wound care team which includes myself, [facility] , Yasmine Aragon RN [facility], Diony Lopez RN [facility]. Patient is alert and sitting up in bed. Had his pre-procedure pain meds and will have his pain med post procedure. He denies any discomfort at this time. Coded Allergies: codeine (Verified Adverse Reaction, Severe, Nausea/Vomiting, 05/26/17) Vital Signs Date Time Temp Pulse Resp B/P (MAP) Pulse Ox O2 Delivery O2 Flow Rate FiO2 08/25/17 12:55 98.7 90 18 112/62 (79) 98 08/25/17 10:46 Nasal Cannula 08/25/17 09:43 98.8 86 16 107/55 (72) 97 08/25/17 09:16 100 08/25/17 06:25 100 Room Air 08/25/17 04:52 99.3 87 20 114/63 (80) 97 08/25/17 00:13 99.2 97 22 107/59 (75) 97 08/24/17 21:30 21 08/24/17 20:14 99.4 92 129/56 (80) 98 08/24/17 20:01 80 08/24/17 17:28 98.6 91 18 106/54 (71) 100 08/24/17 17:27 100 Room Air Wound Assessment Wound Information - Wound One Wound Location: Sacral ulcer Wound Type: Pressure Ulcer Classification: FT- full thickness Pressure Stagin Wound Length: 5.3cm Wound Width: 7cm Wound Depth: 1.8cm Undermining @ O'clock: 10 oclock-4 o clock Dressings: Xeroform 5x9 Dressing Notes: Wound vac with black foam, Lab and Radiology Results Radiology Last Impressions Chest X-Ray 08/23/17 0600 Signed Impressions: Service Date/Time: Wednesday, August 23, 2017 05:27 - CONCLUSION: Left base atelectasis or consolidation. Luca Rivera MD Head CT 08/22/17 0000 Signed Impressions: Service Date/Time: Tuesday, August 22, 2017 12:34 - CONCLUSION: Atrophy, noticed mass effect disease. Lack of contrast makes detection of subtle disease difficult.. Alfredo Lora MD FACR Chest CT 08/22/17 0000 Signed Impressions: Service Date/Time: Tuesday, August 22, 2017 12:28 - CONCLUSION: Patchy airspace disease in both lungs New nodules probably metastatic disease. Occasionally inflammatory process could have similar appearance. Alfredo Lora MD FACR Abdomen X-Ray 08/09/17 0600 Signed Impressions: Service Date/Time: Wednesday, August 09, 2017 03:49 - CONCLUSION: 1. Nonspecific bowel gas pattern without change. 2. Left ureteral stent catheter remains in place. Norman Mitchell MD Gastrostomy Tube Placement 08/09/17 0000 Signed Impressions: Service Date/Time: Wednesday, August 09, 2017 17:54 - CONCLUSION: Unsuccessful gastrostomy tube placement secondary to overlying bowel. CT scan will be required for placement Eddie Saucedo MD ADDENDUM: Review of the CT scan demonstrates the anatomy would require placement between the ribs which would be suboptimal. This was discussed with Dr. Luca Saucedo MD Abdomen/Pelvis CT 08/06/17 0000 Signed Impressions: Service Date/Time: Monday, August 07, 2017 02:34 - CONCLUSION: 1. Diffusely dilated small bowel extending to the ileostomy. There is a small volume of free fluid in the abdomen. 2. Abnormal airspace consolidation at the lung bases bilaterally with bilateral pleural effusions. 3. There is a open sacral decubitus wound extending to the adjacent coccyx and sacrum. Luca Torres MD Cholangiopancreatography MRI 07/15/17 0000 Signed Impressions: Service Date/Time: Saturday, July 15, 2017 15:02 - CONCLUSION: 1. Ascites with small bilateral pleural effusions. 2. Small contracted gallbladder without definite stones 3. No definite common duct stone. 4. Pancreas obscured by motion. Alfredo Lora MD FACR Liver Ultrasound 07/14/17 0000 Signed Impressions: Service Date/Time: July 16:45 - CONCLUSION: 1. Small volume ascites. 2. Bilateral pleural effusions. 3. Sludge within the gallbladder with a top normal thickness of the gallbladder wall. No sonographic evidence to suggest acute cholecystitis. Pierce Ospina Jr., MD Upper Extremity Ultrasound 06/23/17 0000 Signed Impressions: Service Date/Time: June 20:03 - CONCLUSION: Noncompressibility right cephalic vein and left basilic vein consistent with venous thrombosis Trav Hsieh MD Lower Extremity Ultrasound 06/23/17 0000 Signed Impressions: Service Date/Time: June 20:16 - CONCLUSION: Normal examination. No evidence DVT MD Carlos Hurst Karla A. MD Aug 25, 2017 15:21
--- NOTE | 2017-08-25 17:09 | PD.WCN.NOT ---
Wound Consult Description: Patient seen on [facility] for follow up of wound to sacral area and wound VAC dressing change. Communicated with: RN Joanne Oncology, and Doctor Gonzalez Recommendation: Please follow wound VAC dressing change orders with lidocaine for VAC changes Neg Pressure Wound Therapy Wound Location Wound Location: Sacrum Wound Description Length: 5.3cm Width: 7 cm Depth: 1.8cm Undermining: Undermining is noted between 10 to 4 o'clock deepest at 3 cm Wound bed appearance: Wound is noted with 40% exposed pale red granulation tissue, ~20% bone, and ~40 % slough Periwound appearance: Other (periwound partial thickness skin loss) Settings Suction: 125 mmHg, Continuous Intensity: Low Other Information: Bridged (left hip), Windowpaned Foam type: Black Number of pieces: 2 Additonal Information Patient seen on second floor oncology for wound VAC dressing change around 1600. Cleansed wound with normal saline. Patient assessed with Doctor Gonzalez, pattern chart writer and Diony AYLEEN. Wound description noted above.Doctor Gonzalez removed some necrotic tissue with curette, before VAC dressing change. Cleansed wound with normal saline and patted dry. Applied skin prep to periwound before window paning with VAC drape. One piece of granufoam was cut to fit and beveled to reach undermined areas in wound. Bridged granufoam over VAC drape to R upper anterior thigh Sensi trac pad was placed over bridged granufoam. All exposed granufoam was covered with VAC drape. Sealed VAC dressing with stoma paste in gluteal cleft before starting wound VAC machine. Machine suctioning at 125 mm/ hg continuous low suction with no leaks noted. Yasmine [facility]agon [facility] Aug 25, 2017 17:09
[2017-08-25] MEDS ORDERED: LIDOCAINE 4% CREAM 5 GM TUBE TOPICAL PRN (17:45)
--- NOTE | 2017-08-25 18:56 | HHI.PR ---
Subjective Remarks Patient is more awake and alert. Denies cp/sob. States ate earlier states appetite is improving. Objective Vitals Vital Signs Date Time Temp Pulse Resp B/P (MAP) Pulse Ox O2 Delivery O2 Flow Rate FiO2 08/25/17 17:00 98.2 92 18 114/58 (76) 100 08/25/17 12:55 98.7 90 18 112/62 (79) 98 08/25/17 10:46 Nasal Cannula 08/25/17 09:43 98.8 86 16 107/55 (72) 97 08/25/17 09:16 100 08/25/17 06:25 100 Room Air 08/25/17 04:52 99.3 87 20 114/63 (80) 97 08/25/17 00:13 99.2 97 22 107/59 (75) 97 08/24/17 21:30 21 08/24/17 20:14 99.4 92 129/56 (80) 98 08/24/17 20:01 80 I/O 08/24/17 08/24/17 08/24/17 08/25/17 08/25/17 08/25/17 07:00 15:00 23:00 07:00 15:00 23:00 Intake Total 200 ml 1240 ml Output Total 1400 ml 950 ml Balance 200 ml -160 ml -950 ml Intake Oral 200 ml 1240 ml Output Urine Total 1250 ml 650 ml Stool Total 150 ml 300 ml Result Diagram: 08/25/17 1256 08/23/17 0338 Imaging Last Impressions Chest X-Ray 08/23/17 0600 Signed Impressions: Service Date/Time: Wednesday, August 23, 2017 05:27 - CONCLUSION: Left base atelectasis or consolidation. Luca Rivera MD Head CT 08/22/17 0000 Signed Impressions: Service Date/Time: Tuesday, August 22, 2017 12:34 - CONCLUSION: Atrophy, noticed mass effect disease. Lack of contrast makes detection of subtle disease difficult.. Alfredo Lora MD FACR Chest CT 08/22/17 0000 Signed Impressions: Service Date/Time: Tuesday, August 22, 2017 12:28 - CONCLUSION: Patchy airspace disease in both lungs New nodules probably metastatic disease. Occasionally inflammatory process could have similar appearance. Alfredo Lora MD FACR Abdomen X-Ray 08/09/17 0600 Signed Impressions: Service Date/Time: Wednesday, August 09, 2017 03:49 - CONCLUSION: 1. Nonspecific bowel gas pattern without change. 2. Left ureteral stent catheter remains in place. Norman Mitchell MD Gastrostomy Tube Placement 08/09/17 0000 Signed Impressions: Service Date/Time: Wednesday, August 09, 2017 17:54 - CONCLUSION: Unsuccessful gastrostomy tube placement secondary to overlying bowel. CT scan will be required for placement Eddie Saucdeo MD ADDENDUM: Review of the CT scan demonstrates the anatomy would require placement between the ribs which would be suboptimal. This was discussed with Dr. Luca Saucedo MD Abdomen/Pelvis CT 08/06/17 0000 Signed Impressions: Service Date/Time: Monday, August 07, 2017 02:34 - CONCLUSION: 1. Diffusely dilated small bowel extending to the ileostomy. There is a small volume of free fluid in the abdomen. 2. Abnormal airspace consolidation at the lung bases bilaterally with bilateral pleural effusions. 3. There is a open sacral decubitus wound extending to the adjacent coccyx and sacrum. Luca Torres MD Cholangiopancreatography MRI 07/15/17 0000 Signed Impressions: Service Date/Time: Saturday, July 15, 2017 15:02 - CONCLUSION: 1. Ascites with small bilateral pleural effusions. 2. Small contracted gallbladder without definite stones 3. No definite common duct stone. 4. Pancreas obscured by motion. Alfredo Lora MD FACR Liver Ultrasound 07/14/17 0000 Signed Impressions: Service Date/Time: July 16:45 - CONCLUSION: 1. Small volume ascites. 2. Bilateral pleural effusions. 3. Sludge within the gallbladder with a top normal thickness of the gallbladder wall. No sonographic evidence to suggest acute cholecystitis. Pierce Ospina Jr., MD Upper Extremity Ultrasound 06/23/17 0000 Signed Impressions: Service Date/Time: June 20:03 - CONCLUSION: Noncompressibility right cephalic vein and left basilic vein consistent with venous thrombosis Trav Hsieh MD Lower Extremity Ultrasound 06/23/17 0000 Signed Impressions: Service Date/Time: June 20:16 - CONCLUSION: Normal examination. No evidence DVT Trav Hsieh MD Objective Remarks GENERAL: NAD, A&Ox3, cachectic HEAD: Normocephalic. NECK: Supple, trachea midline. No lymphadenopathy. EYES: No scleral icterus. No injection or drainage. CARDIOVASCULAR: Regular rate and rhythm without murmurs, gallops, or rubs. RESPIRATORY: Breath sounds equal bilaterally. No accessory muscle use. GASTROINTESTINAL: abdomen is soft, non tender, non distended. MUSCULOSKELETAL: No cyanosis, or edema. Sacral ulcer has wound VAC in place. SKIN: Warm and dry. NEURO: No focal neurological deficitis. PSYCH: Flattened affect. Medications and IVs Current Medications Medications (Trade) Dose Ordered Sig/[place] Route Start Time Stop Time Status Last Admin (Zofran Inj) 4 mg Q4H PRN IV PUSH 06/17/17 22:00 08/23/17 04:43 Miscellaneous Information Patient in critical care unit? Ass... Q361D .XX 06/18/17 05:45 06/18/17 05:45 (Albuterol Neb) 2.5 mg Q2HR NEB PRN NEB 06/29/17 14:30 08/11/17 08:53 (Symbicort 160-4.5 Inh) 1 puff Q12HR INH 07/07/17 09:00 08/25/17 09:46 (Lomotil Tab) 1 tab Q6H PRN PO 07/10/17 11:00 (NovoLOG SUPPLEMENTAL SCALE) 1 ACHS SQ 07/11/17 17:00 08/24/17 20:49 (D50w (Vial) Inj) 50 ml UNSCH PRN IV PUSH 07/11/17 15:00 (Glucagon Inj) 1 mg UNSCH PRN OTHER 07/11/17 15:00 Patient Own Medication PT OWN MED: VIIB... HS PO 07/15/17 21:00 08/24/17 20:19 (Dakin'S 0.125% Soln) 500 ml MoWeFr TOPICAL 07/20/17 13:00 08/22/17 16:00 (Flomax) 0.4 mg HS PO 07/23/17 21:00 08/24/17 20:18 (Megace Liq) 400 mg DAILY PO 08/04/17 09:00 Future hold 08/25/17 09:45 (Lanoxin) 0.125 mg DAILY PO 08/06/17 09:00 Future hold 08/25/17 09:45 (Lovenox Inj) 40 mg Q24H SQ 08/10/17 09:00 08/25/17 09:45 (Lopressor Inj) 5 mg Q5M PRN IV PUSH 08/13/17 02:45 08/23/17 04:43 (Cardizem) 90 mg Q6HR PO 08/14/17 00:00 Future hold 08/25/17 13:31 (Pill Splitter) 1 ea UNSCH PRN OTHER 08/14/17 08:00 (Spiriva Inh) 18 mcg DAILY INH 08/15/17 09:00 08/25/17 09:45 (Haldol Inj) 2 mg Q4H PRN IV 08/15/17 09:00 08/23/17 04:31 (Pepcid) 20 mg BID PO 08/16/17 21:00 08/25/17 09:45 (Bruceton 5-325 Mg) 1 tab Q6H PRN PO 08/20/17 07:00 08/25/17 13:32 (Deltasone) 20 mg DAILY PO 08/20/17 09:00 08/25/17 09:45 (Vitamin B1) 100 mg DAILY PO 08/21/17 09:00 08/25/17 09:45 (SEROquel) 25 mg HS PO 08/22/17 21:00 08/24/17 20:18 (Duoneb Neb) 1 ampule Q8HR NEB NEB 08/23/17 08:00 08/25/17 09:14 (L-M-X 4 Cream) KEEP AT BEDSIDE FOR WO... UNSCH PRN TOPICAL 08/25/17 17:45 A/P Problem List: (1) Nausea & vomiting ICD Code: R11.2 - Nausea with vomiting, unspecified Status: Acute (2) Tachycardia ICD Code: R00.0 - Tachycardia, unspecified Status: Acute (3) Hypertension ICD Code: I10 - Essential (primary) hypertension Status: Chronic (4) Leukocytosis ICD Code: D72.829 - Elevated white blood cell count, unspecified Status: Acute (5) Acute kidney injury ICD Code: N17.9 - Acute kidney failure, unspecified Status: Resolved (6) Cancer of rectum ICD Code: C20 - Malignant neoplasm of rectum (7) 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 Code: Z93.2 - Ileostomy status Status: Chronic (8) Sepsis ICD Code: A41.9 - Sepsis, unspecified organism Status: Acute (9) Pseudomonas septicemia ICD Code: A41.52 - Sepsis due to Pseudomonas Status: Acute (10) Pseudomonas urinary tract infection ICD Code: N39.0 - Urinary tract infection, site not specified; B96.5 - Pseudomonas (aeruginosa) (mallei) (pseudomallei) as the cause of diseases classified elsewhere Status: Acute (11) Hyperchloremic metabolic acidosis ICD Code: E87.2 - Acidosis Status: Acute Assessment and Plan 67-year-old male with metastatic colon cancer status post colectomy with end ileostomy. He originally presented to the hospital with severe C. difficile ileitis and septic shock. He had a prolonged mechanical ventilation and ICU course. 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 The patient had problems of ileus as well. The patient was then transferred again to the intensive care unit due to respiratory distress and increasing in oxygen requirement. At the time the patient had some episodes of vomiting and a high clinical suspicion for aspiration pneumonia event was suspected at the time. On the second admission to intensive care unit the patient's respiratory status slowly improved. He had a very difficult to control atrial fibrillation with RVR, which during previous illnesses were not rate controlled despite medication and multiple cardioversion attempts. Acute hypoxemic respiratory failure-resolved COPD with exacerbation Aspiration pneumonia Persistent bilateral hilar and infrahilar infiltrates, rule out metastatic disease Diana UTI Pulmonary Edema-improved HCAP with Pseudomonas status post treatment Agitated Delirium Atrial fibrillation with intermittent rapid ventricular response, now in sinus tach C Diff ileitis UTI with Pseudomonas s/p treatment s/p Pseudomonas bacteremia s/p treatment s/p Partial resection of the left ureter with anastomosis and placement of double-J stent Recurrent ileus Acute protein calorie malnutrition- severe. Metastatic colon cancer s/p resection Malnutrition with weight loss History of ITP CT of the chest 08/22/17 shows 3.4 cm mass in left lower lobe, and multiple peripheral nodules consistent with metastatic disease. Dr. Ryan from oncology reconsulted and Ct reviewed with him. recommends comfort measures and hospice at this time Palliative care is following Delirium is much improved and resolving. CT of the brain to rule out metastatic disease-negative Respiratory status improved, acceptable oxygen saturations on RA. CEA 5.3 08/22 UTI with diana. Diflucan started 08/17, Han replaced 08/17 - treated and improved, Use when necessary Haldol and low dose Ativan. Continue Vibrrid. Previously on melatonin which was discontinued. Discontinued Zyprexa Reglan . DCd Perocet, Lortab 5/325 PRN pain 5-10 Continue by mouth vancomycin, continue Diflucan for Diana UTI. (IV Zosyn and IV Flagyl discontinued per ID 08/16) Previous Pseudomonas bacteremia UTI and HCAP, status post treatment Lasix DCd on 08/19/17 Prednisone 20 mg PO daily. Continue Symbicort, Spiriva, EzPAP, acapella, DuoNeb' s Relative contraindication of BiPAP being high aspiration risk, ileus, no absolute contraindication IR, GI was unable to place PEG tube. D/W Dr. Pelayo re: ureteral stent removal- recommended postponing until more stable Cardizem to 90 mg po q6h. PO Digoxin. Metoprolol 5mg iv q4h PRN for HR control. NSR Stopped amio infusion due to previous liver enzyme elevation. AVOID AMIO Aggressively replace electrolytes, target mg > 2.0, k > 4.0 Lovenox for DVT prophylaxis, famotidine for GI prophylaxis PT/OT up to chair daily Regular basic diet. Megace for appetite stimulation. Off TPN Cathectic, continues to lose weight. Dietary consulted for recommendations, ensure added Avoid PICC replacement and TPN due to increased risk of infection, including fungal infection. I discussed with Dr. Adams 08/21 and she agrees 08/25 there is a recommendation from dietitian that patient should have tube feedings. However, the patient has had multiple previous attempts to place a PEG tube by GI in the past. GI recommended placement of a GJ tube. However this has been attempted as well on 08/09 which at that time was as successful as well. As per documentation by Dr ervin from radiology. Anatomy would require placement between the ribs which would be suboptimal. At the time the case was discussed with Dr. Segovia. At this time will request a calorie count to better determine the need of the feedings. Patient is also noted to be hyperglycemic. We'll check hemoglobin A1c, continue SSI with insulin NovoLog. Check labs in a.m. Discharge Planning Pending calorie count. Problem Qualifiers (1) Hypertension: Qualified Codes: I10 - Essential (primary) hypertension Chad Marrero MD Aug 25, 2017 18:56
--- NOTE | 2017-08-25 20:48 | HHI.PR ---
Subjective . Pt seen at 1745. Awake alert oriented. D/W RN and asked her to assist in eating and gave him another ensure to drink. Pt c/o pain from wound. Objective . VS-S Abd: flat,soft.stoma working. Assessment/Plan . Probable metastatic rectal CA to lung. Cachexia Deconditioned Plan. Aggressive nutrition as tolerated.Pt and declined feeding tube earlier this week Luca Geiger MD Aug 25, 2017 20:48
[2017-08-25] MEDS: VIIBRYD 40 MG PO SCH ×2 (21:00→22:04)
[2017-08-25] MEDS: TAMSULOSIN HCL 0.4 MG CAP PO SCH (22:03)
[2017-08-25] MEDS: QUEtiapine FUMARATE 25 MG TAB PO SCH (22:03)
[2017-08-26] VITALS (8 sets, daily range): BP systolic 100–124; BP diastolic 64–72; PULSE 80–99; RESP 16–20; TEMP 98.2–99.3; O2SAT 96–100
[2017-08-26] MEDS: DILTIAZEM HCL 60 MG TAB PO SCH ×5 (00:16→23:59)
[2017-08-26] MEDS: ACETAMINOPHEN/HYDROcodone 325 MG/5 MG TAB PO PRN ×4 (05:19→23:59)
[2017-08-26] MEDS: RESP: ALBUTEROL 2.5 MG/IPRATROPIUM 0.5 MG NEB (SCH) NEB ×3 (07:41→23:09)
[2017-08-26] MEDS: INSULIN ASPART SUPPLEMENTAL SCALE SQ SCH ×4 (08:00→21:00)
[2017-08-26 08:18] LABS: AUTOMATED NEUTROPHIL # 7.8 TH/MM3 (1.8-7.7); BASOPHIL # 0.1 TH/MM3 (0-0.2); BASOPHIL % 0.6 % (0.0-2.0); EOSINOPHIL % 0.3 % (0.0-4.0); HEMO FLAGS DIFF FINAL; LYMPH % 5.8 % (9.0-44.0); LYMPHOCYTE # 0.5 TH/MM3 (1.0-4.8); MEAN CELL VOLUME 91.7 FL (80.0-100.0); MEAN CORPUSCULAR HEMOGLOBIN 30.4 PG (27.0-34.0); MEAN CORPUSCULAR HGB CONC 33.1 % (32.0-36.0); MONO % 5.4 % (0.0-8.0); NEUT % 87.9 % (16.0-70.0); PLATELET COUNT 176 TH/MM3 (150-450); RED BLOOD COUNT 2.83 MIL/MM3 (4.50-5.90); RED CELL DISTRIBUTION WIDTH 20.6 % (11.6-17.2); WHITE BLOOD COUNT 8.8 TH/MM3 (4.0-11.0)
[2017-08-26 08:49] LABS: ALT (GPT) 39 U/L (12-78); ANION GAP 7 MEQ/L (5-15); AST (GOT) 18 U/L (15-37); BICARBONATE 25.2 MEQ/L (21.0-32.0); BLOOD UREA NITROGEN 22 MG/DL (7-18); CHLORIDE 103 MEQ/L (98-107); GLOMERULAR FILTRATION RATE 122 ML/MIN (>89); MAGNESIUM 2.1 MG/DL (1.5-2.5); POTASSIUM 4.5 MEQ/L (3.5-5.1); SODIUM (NA) 135 MEQ/L (136-145)
[2017-08-26 08:54] LABS: ALKALINE PHOSPHATASE 257 U/L (45-117); TOTAL BILIRUBIN ADULT 0.5 MG/DL (0.2-1.0)
[2017-08-26] MEDS: BUDESONIDE-FORMOTEROL 160/4.5 MCG INHALER INH SCH ×2 (10:02→21:11)
[2017-08-26] MEDS: TIOTROPIUM BROMIDE 18 MCG INH INH SCH (10:02)
[2017-08-26] MEDS: MEGESTROL ACETATE SUSP 400 MG/10 ML CUP PO SCH (10:02)
[2017-08-26] MEDS: THIAMINE HCL 100 MG TAB PO SCH (10:03)
[2017-08-26] MEDS: ENOXAPARIN SODIUM 40 MG/0.4 ML SYRINGE SQ SCH (10:03)
[2017-08-26] MEDS: predniSONE 20 MG TAB PO SCH (10:03)
[2017-08-26] MEDS: DIGOXIN 0.125 MG TAB PO SCH (10:03)
[2017-08-26] MEDS: FAMOTIDINE 20 MG TAB PO SCH ×2 (10:03→21:10)
[2017-08-26] MEDS: SODIUM HYPOCHLORITE 0.125% 500 ML BTL TOPICAL SCH (13:00)
--- NOTE | 2017-08-26 15:33 | HHI.PR ---
Subjective . Pt has been lucid and conversant the last 2 days. He has no more tremors. Left ureteral stent remains. 3 prior episodes of urine sepsis due to Pseudomonas. Would like to get stent out at some point prior to D/C to prevent further UTIs. Pt and want to go to [facility]. She says that she talked with them yesterday and are expecting him. She says they can provide wound vac care as well. He is definitely eating better and in better spirits. I did not readdress metastatic disease or Hospice at their prior requests. Objective . VS-S Abd: soft,flat Assessment/Plan . Stable at present Possible removal of stent soon Possible D/C to [facility] soon. Luca Geiger MD Aug 26, 2017 15:33
[2017-08-26] MEDS ORDERED: FAMO20TA2 PO (16:24)
[2017-08-26] MEDS ORDERED: DIGO0.12 PO (16:24)
[2017-08-26] MEDS ORDERED: SERO25TA PO (16:24)
[2017-08-26] MEDS ORDERED: DAKI0.12 TOPICAL (16:24)
[2017-08-26] MEDS ORDERED: Budeson-Formot 160-4.5 Mg Inh INH (16:24)
[2017-08-26] MEDS ORDERED: Albuterol Neb NEB (16:24)
[2017-08-26] MEDS ORDERED: DILT60TA33 PO (16:24)
[2017-08-26] MEDS ORDERED: SPIRCAP INH (16:24)
[2017-08-26] MEDS ORDERED: HYDR-3516 PO (16:24)
[2017-08-26] MEDS ORDERED: THIA100 PO (16:32)
[2017-08-26] MEDS ORDERED: Megestrol Liq PO (16:32)
--- NOTE | 2017-08-26 16:52 | HHI.DCPOC ---
Discharge Care Plan Diagnosis: (1) Ileostomy in place (2) Cancer of rectum (3) recurrent respiratory failure, pneumonia (4) altered mental status/delirium, likely multifactorial (5) remote history of pancreatitis (6) anxiety (7) recurrent/persistent pneumonia, probable aspiration (8) rectal cancer November 2016, s/p radiation/chemo and surgery (9) severe malnutrition/deconditioning (10) recurrent/persistent pneumonia, probable aspiration (11) Hyperchloremic metabolic acidosis (12) Acute kidney injury (13) Nausea & vomiting (14) Hypertension (15) Atrial fibrillation Goals to Promote Your Health * To prevent worsening of your condition and complications * To maintain your health at the optimal level Directions to Meet Your Goals Take your medications as prescribed Follow your dietary instruction Follow activity as directed Keep your appointments as scheduled Take your immunizations and boosters as scheduled If your symptoms worsen call your PCP, if no PCP go to Urgent Care Center or Emergency Room Smoking is Dangerous to Your Health. Avoid second hand smoke Call the 24-hour hour crisis hotline for domestic abuse at Chad Marrero MD Aug 26, 2017 16:52
--- NOTE | 2017-08-26 17:05 | HHI.PR ---
Subjective Remarks Patient's is very upset at bedside and is demanding for the patient to be discharged to rehab. Patient denies cp/sob. upon discussion with RN the patient eats when helped to eat. Patient states appetite is still poor, denies abdominal pain, nausea, vomiting or diarrhea. Patient is now awake and alert, requests to be discharged to rehab. Objective Vitals Vital Signs Date Time Temp Pulse Resp B/P (MAP) Pulse Ox O2 Delivery O2 Flow Rate FiO2 08/26/17 12:50 98.8 80 18 100/68 (79) 100 08/26/17 12:03 Room Air 08/26/17 10:00 98.2 88 18 110/71 (84) 99 08/26/17 04:43 98.8 90 16 109/65 (80) 98 08/26/17 00:12 99.3 99 20 124/64 (84) 96 08/25/17 23:34 96 08/25/17 21:51 98.9 92 20 119/70 (86) 96 08/25/17 21:40 96 Room Air 08/25/17 20:00 90 08/25/17 17:00 98.2 92 18 114/58 (76) 100 I/O 08/25/17 08/25/17 08/25/17 08/26/17 08/26/17 08/26/17 07:00 15:00 23:00 07:00 15:00 23:00 Intake Total 820 ml 580 ml Output Total 950 ml 1000 ml 875 ml Balance -950 ml -180 ml -295 ml Intake Oral 820 ml 580 ml Output Urine Total 650 ml 1000 ml 875 ml Stool Total 300 ml # Bowel Movements 1 Result Diagram: 08/26/17 0736 08/26/17 0736 Imaging Last Impressions Chest X-Ray 08/23/17 0600 Signed Impressions: Service Date/Time: Wednesday, August 23, 2017 05:27 - CONCLUSION: Left base atelectasis or consolidation. Luca Rivera MD Head CT 08/22/17 0000 Signed Impressions: Service Date/Time: Tuesday, August 22, 2017 12:34 - CONCLUSION: Atrophy, noticed mass effect disease. Lack of contrast makes detection of subtle disease difficult.. Alfredo Lora MD FACR Chest CT 08/22/17 0000 Signed Impressions: Service Date/Time: Tuesday, August 22, 2017 12:28 - CONCLUSION: Patchy airspace disease in both lungs New nodules probably metastatic disease. Occasionally inflammatory process could have similar appearance. Alfredo Lora MD FACR Abdomen X-Ray 08/09/17 0600 Signed Impressions: Service Date/Time: Wednesday, August 09, 2017 03:49 - CONCLUSION: 1. Nonspecific bowel gas pattern without change. 2. Left ureteral stent catheter remains in place. Norman Mitchell MD Gastrostomy Tube Placement 08/09/17 0000 Signed Impressions: Service Date/Time: Wednesday, August 09, 2017 17:54 - CONCLUSION: Unsuccessful gastrostomy tube placement secondary to overlying bowel. CT scan will be required for placement Eddie Saucedo MD ADDENDUM: Review of the CT scan demonstrates the anatomy would require placement between the ribs which would be suboptimal. This was discussed with Dr. Luca Saucedo MD Abdomen/Pelvis CT 08/06/17 0000 Signed Impressions: Service Date/Time: Monday, August 07, 2017 02:34 - CONCLUSION: 1. Diffusely dilated small bowel extending to the ileostomy. There is a small volume of free fluid in the abdomen. 2. Abnormal airspace consolidation at the lung bases bilaterally with bilateral pleural effusions. 3. There is a open sacral decubitus wound extending to the adjacent coccyx and sacrum. Luca Torres MD Cholangiopancreatography MRI 07/15/17 0000 Signed Impressions: Service Date/Time: Saturday, July 15, 2017 15:02 - CONCLUSION: 1. Ascites with small bilateral pleural effusions. 2. Small contracted gallbladder without definite stones 3. No definite common duct stone. 4. Pancreas obscured by motion. Alfredo Lora MD FACR Liver Ultrasound 07/14/17 0000 Signed Impressions: Service Date/Time: July 16:45 - CONCLUSION: 1. Small volume ascites. 2. Bilateral pleural effusions. 3. Sludge within the gallbladder with a top normal thickness of the gallbladder wall. No sonographic evidence to suggest acute cholecystitis. Pierce Ospina Jr., MD Upper Extremity Ultrasound 06/23/17 0000 Signed Impressions: Service Date/Time: June 20:03 - CONCLUSION: Noncompressibility right cephalic vein and left basilic vein consistent with venous thrombosis Trav Hsieh MD Lower Extremity Ultrasound 06/23/17 0000 Signed Impressions: Service Date/Time: June 20:16 - CONCLUSION: Normal examination. No evidence DVT Trav Hsieh MD Objective Remarks GENERAL: NAD, A&Ox3, cachectic HEAD: Normocephalic. NECK: Supple, trachea midline. No lymphadenopathy. EYES: No scleral icterus. No injection or drainage. CARDIOVASCULAR: Regular rate and rhythm without murmurs, gallops, or rubs. RESPIRATORY: Breath sounds equal bilaterally. No accessory muscle use. GASTROINTESTINAL: abdomen is soft, non tender, non distended. MUSCULOSKELETAL: No cyanosis, or edema. Sacral ulcer has wound VAC in place. SKIN: Warm and dry. NEURO: No focal neurological deficitis. PSYCH: Flattened affect. Medications and IVs Current Medications Medications (Trade) Dose Ordered Sig/[place] Route Start Time Stop Time Status Last Admin (Zofran Inj) 4 mg Q4H PRN IV PUSH 06/17/17 22:00 08/23/17 04:43 Miscellaneous Information Patient in critical care unit? Ass... Q361D .XX 06/18/17 05:45 06/18/17 05:45 (Albuterol Neb) 2.5 mg Q2HR NEB PRN NEB 06/29/17 14:30 08/11/17 08:53 (Symbicort 160-4.5 Inh) 1 puff Q12HR INH 07/07/17 09:00 08/26/17 10:02 (Lomotil Tab) 1 tab Q6H PRN PO 07/10/17 11:00 (NovoLOG SUPPLEMENTAL SCALE) 1 ACHS SQ 07/11/17 17:00 08/24/17 20:49 (D50w (Vial) Inj) 50 ml UNSCH PRN IV PUSH 07/11/17 15:00 (Glucagon Inj) 1 mg UNSCH PRN OTHER 07/11/17 15:00 Patient Own Medication PT OWN MED: VIIB... HS PO 07/15/17 21:00 08/24/17 20:19 (Dakin'S 0.125% Soln) 500 ml MoWeFr TOPICAL 07/20/17 13:00 08/22/17 16:00 (Flomax) 0.4 mg HS PO 07/23/17 21:00 08/25/17 22:03 (Megace Liq) 400 mg DAILY PO 08/04/17 09:00 Future hold 08/26/17 10:02 (Lanoxin) 0.125 mg DAILY PO 08/06/17 09:00 Future hold 08/26/17 10:03 (Lovenox Inj) 40 mg Q24H SQ 08/10/17 09:00 08/26/17 10:03 (Lopressor Inj) 5 mg Q5M PRN IV PUSH 08/13/17 02:45 08/23/17 04:43 (Cardizem) 90 mg Q6HR PO 08/14/17 00:00 Future hold 08/26/17 14:07 (Pill Splitter) 1 ea UNSCH PRN OTHER 08/14/17 08:00 (Spiriva Inh) 18 mcg DAILY INH 08/15/17 09:00 08/26/17 10:02 (Haldol Inj) 2 mg Q4H PRN IV 08/15/17 09:00 08/23/17 04:31 (Pepcid) 20 mg BID PO 08/16/17 21:00 08/26/17 10:03 ([place] 5-325 Mg) 1 tab Q6H PRN PO 08/20/17 07:00 08/26/17 11:11 (Deltasone) 20 mg DAILY PO 08/20/17 09:00 08/26/17 10:03 (Vitamin B1) 100 mg DAILY PO 08/21/17 09:00 08/26/17 10:03 (SEROquel) 25 mg HS PO 08/22/17 21:00 08/25/17 22:03 (Duoneb Neb) 1 ampule Q8HR NEB NEB 08/23/17 08:00 08/26/17 07:41 (L-M-X 4 Cream) KEEP AT BEDSIDE FOR WO... UNSCH PRN TOPICAL 08/25/17 17:45 A/P Problem List: (1) Nausea & vomiting ICD Code: R11.2 - Nausea with vomiting, unspecified Status: Resolved (2) Tachycardia ICD Code: R00.0 - Tachycardia, unspecified Status: Resolved (3) Hypertension ICD Code: I10 - Essential (primary) hypertension Status: Chronic (4) Leukocytosis ICD Code: D72.829 - Elevated white blood cell count, unspecified Status: Resolved (5) Acute kidney injury ICD Code: N17.9 - Acute kidney failure, unspecified Status: Resolved (6) Cancer of rectum ICD Code: C20 - Malignant neoplasm of rectum (7) 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 Code: Z93.2 - Ileostomy status Status: Chronic (8) Sepsis ICD Code: A41.9 - Sepsis, unspecified organism Status: Resolved (9) Pseudomonas septicemia ICD Code: A41.52 - Sepsis due to Pseudomonas Status: Resolved (10) Pseudomonas urinary tract infection ICD Code: N39.0 - Urinary tract infection, site not specified; B96.5 - Pseudomonas (aeruginosa) (mallei) (pseudomallei) as the cause of diseases classified elsewhere Status: Resolved (11) Hyperchloremic metabolic acidosis ICD Code: E87.2 - Acidosis Status: Resolved Assessment and Plan 67-year-old male with metastatic colon cancer status post colectomy with end ileostomy. He originally presented to the hospital with severe C. difficile ileitis and septic shock. He had a prolonged mechanical ventilation and ICU course. 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 The patient had problems of ileus as well. The patient was then transferred again to the intensive care unit due to respiratory distress and increasing in oxygen requirement. At the time the patient had some episodes of vomiting and a high clinical suspicion for aspiration pneumonia event was suspected at the time. On the second admission to intensive care unit the patient's respiratory status slowly improved. He had a very difficult to control atrial fibrillation with RVR, which during previous illnesses were not rate controlled despite medication and multiple cardioversion attempts. Acute hypoxemic respiratory failure-resolved COPD with exacerbation Aspiration pneumonia Persistent bilateral hilar and infrahilar infiltrates, rule out metastatic disease Diana UTI Pulmonary Edema-improved HCAP with Pseudomonas status post treatment Agitated Delirium Atrial fibrillation with intermittent rapid ventricular response, now in sinus tach C Diff ileitis UTI with Pseudomonas s/p treatment s/p Pseudomonas bacteremia s/p treatment s/p Partial resection of the left ureter with anastomosis and placement of double-J stent Recurrent ileus Acute protein calorie malnutrition- severe. Metastatic colon cancer s/p resection Malnutrition with weight loss History of ITP CT of the chest 08/22/17 shows 3.4 cm mass in left lower lobe, and multiple peripheral nodules consistent with metastatic disease. Dr. Ryan from oncology reconsulted and Ct reviewed with him. recommends comfort measures and hospice at this time Palliative care is following Delirium is completely resolved. CT of the brain to rule out metastatic disease-negative Respiratory status improved, acceptable oxygen saturations on RA. CEA 5.3 08/22 UTI with diana. Diflucan started 08/17, Han replaced 08/17 - treated and improved, Use when necessary Haldol and low dose Ativan. Continue Vibrrid. Previously on melatonin which was discontinued. Discontinued Zyprexa Reglan . DCd Perocet, Lortab 5/325 PRN pain 5-10 Continue by mouth vancomycin, continue Diflucan for Diana UTI. (IV Zosyn and IV Flagyl discontinued per ID 08/16) Previous Pseudomonas bacteremia UTI and HCAP, status post treatment Lasix DCd on 08/19/17 Prednisone 20 mg PO daily. Continue Symbicort, Spiriva, EzPAP, acapella, DuoNeb' s Relative contraindication of BiPAP being high aspiration risk, ileus, no absolute contraindication IR, GI was unable to place PEG tube. D/W Dr. Pelayo re: ureteral stent removal- recommended postponing until more stable Cardizem to 90 mg po q6h. PO Digoxin. Metoprolol 5mg iv q4h PRN for HR control. NSR Stopped amio infusion due to previous liver enzyme elevation. AVOID AMIO Aggressively replace electrolytes, target mg > 2.0, k > 4.0 Lovenox for DVT prophylaxis, famotidine for GI prophylaxis PT/OT up to chair daily Regular basic diet. Megace for appetite stimulation. Off TPN Cathectic, continues to lose weight. Dietary consulted for recommendations, ensure added Avoid PICC replacement and TPN due to increased risk of infection, including fungal infection. I discussed with Dr. Adams 08/21 and she agrees 08/25 there is a recommendation from dietitian that patient should have tube feedings. However, the patient has had multiple previous attempts to place a PEG tube by GI in the past. GI recommended placement of a GJ tube. However this has been attempted as well on 08/09 which at that time was as successful as well. As per documentation by Dr ervin from radiology. Anatomy would require placement between the ribs which would be suboptimal. At the time the case was discussed with Dr. Segovia. Patient is also noted to be hyperglycemic. We'll check hemoglobin A1c, continue SSI with insulin NovoLog. 08/26 Patient who is fully awake and to my determination able to make his own medical decisions is requesting to be discharged to rehab, is also demanding this. At this point even if the patient fails the caloric count, hepatic and G-tube have been tried to be placed in the past and this was unsuccessful. We'll continue appetite stimulant, the patient will need to be helped to be fed. The patient has a ureteral stent which needs to be removed given that the patient has had Pseudomonas UTI. Patient previously very confused and not amenable to procedure. Discussed this with the patient underwent. They would rather want this procedure to be set up as an outpatient when the patient is already at SNF. I explained to the patient that the patient 's the risk of recurrent UTI and they stated that they're willing to run the risk at this point. I tried to communicate with Dr. Ronal Pelayo from urology, however he is not eye care professional and they have a urologist that is not from the group (Dr Hdez) covering. I placed a call to discuss with Dr. Tran, however will discharge patient to rehabilitation was activated today or tomorrow morning. Discharge Planning Possible discharge to rehabilitation today or tomorrow morning. Problem Qualifiers (1) Hypertension: Qualified Codes: I10 - Essential (primary) hypertension Chad Marrero MD Aug 26, 2017 17:05
--- NOTE | 2017-08-26 17:55 | HHI.DS ---
Discharge Summary Admission Date Jun 17, 2017 at 09:06 Discharge Date: Aug 26, 2017 Admitting Diagnosis (1) Nausea & vomiting ICD Code: R11.2 - Nausea with vomiting, unspecified Status: Resolved (2) Tachycardia ICD Code: R00.0 - Tachycardia, unspecified Status: Resolved (3) Hypertension ICD Code: I10 - Essential (primary) hypertension Status: Chronic (4) Leukocytosis ICD Code: D72.829 - Elevated white blood cell count, unspecified Status: Resolved (5) Acute kidney injury ICD Code: N17.9 - Acute kidney failure, unspecified Status: Resolved (6) Cancer of rectum ICD Code: C20 - Malignant neoplasm of rectum (7) 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 Code: Z93.2 - Ileostomy status Status: Chronic (8) Sepsis ICD Code: A41.9 - Sepsis, unspecified organism Status: Resolved (9) Pseudomonas septicemia ICD Code: A41.52 - Sepsis due to Pseudomonas Status: Resolved (10) Pseudomonas urinary tract infection ICD Code: N39.0 - Urinary tract infection, site not specified; B96.5 - Pseudomonas (aeruginosa) (mallei) (pseudomallei) as the cause of diseases classified elsewhere Status: Resolved (11) Hyperchloremic metabolic acidosis ICD Code: E87.2 - Acidosis Status: Resolved Procedures sp intubation and mechanical ventilation. sp Failed PEG and G tube placements. Brief History - From Admission The patient is a 67-year-old male who is approximately 3 weeks status post low anterior resection with low colorectal anastomosis, diverting ileostomy, and resection of a segment of the left ureter with ureteral anastomosis and double- J stent placement. He is currently admitted to the ICU on the colorectal surgery service. Hospitalist consultation was requested for medical management and evaluation of tachycardia. The patient has been having increased weakness and poor oral intake. He had been improving postoperatively, but over the last 5 -6 days felt that he was not doing as well. He spent more time in bed due to weakness and fatigue. He has had nausea and vomiting. He reports cough productive of white phlegm. Denies fever, chills, night sweats. CBC/BMP: 08/26/17 0736 08/26/17 0736 Significant Findings Laboratory Tests Test 08/25/17 12:56 08/26/17 07:36 Red Blood Count 2.82 MIL/MM3 (4.50-5.90) 2.83 MIL/MM3 (4.50-5.90) Hemoglobin 8.6 GM/DL (13.0-17.0) 8.6 GM/DL (13.0-17.0) Hematocrit 26.4 % (39.0-51.0) 26.0 % (39.0-51.0) Red Cell Distribution Width 20.8 % (11.6-17.2) 20.6 % (11.6-17.2) Neutrophils (%) (Auto) 87.2 % (16.0-70.0) 87.9 % (16.0-70.0) Lymphocytes (%) (Auto) 5.4 % (9.0-44.0) 5.8 % (9.0-44.0) Neutrophils # (Auto) 9.3 TH/MM3 (1.8-7.7) 7.8 TH/MM3 (1.8-7.7) Lymphocytes # (Auto) 0.6 TH/MM3 (1.0-4.8) 0.5 TH/MM3 (1.0-4.8) Blood Urea Nitrogen 22 MG/DL (7-18) Total Protein 6.0 GM/DL (6.4-8.2) Albumin 1.7 GM/DL (3.4-5.0) Calcium Level 8.1 MG/DL (8.5-10.1) Alkaline Phosphatase 257 U/L (45-117) Sodium Level 135 MEQ/L (136-145) Imaging Last Impressions Chest X-Ray 08/23/17 0600 Signed Impressions: Service Date/Time: Wednesday, August 23, 2017 05:27 - CONCLUSION: Left base atelectasis or consolidation. Luca Rivera MD Head CT 08/22/17 0000 Signed Impressions: Service Date/Time: Tuesday, August 22, 2017 12:34 - CONCLUSION: Atrophy, noticed mass effect disease. Lack of contrast makes detection of subtle disease difficult.. Alfredo Lora MD FACR Chest CT 08/22/17 0000 Signed Impressions: Service Date/Time: Tuesday, August 22, 2017 12:28 - CONCLUSION: Patchy airspace disease in both lungs New nodules probably metastatic disease. Occasionally inflammatory process could have similar appearance. Alfredo Lora MD FACR Abdomen X-Ray 08/09/17 0600 Signed Impressions: Service Date/Time: Wednesday, August 09, 2017 03:49 - CONCLUSION: 1. Nonspecific bowel gas pattern without change. 2. Left ureteral stent catheter remains in place. Norman Mitchell MD Gastrostomy Tube Placement 08/09/17 0000 Signed Impressions: Service Date/Time: Wednesday, August 09, 2017 17:54 - CONCLUSION: Unsuccessful gastrostomy tube placement secondary to overlying bowel. CT scan will be required for placement Eddie Saucedo MD ADDENDUM: Review of the CT scan demonstrates the anatomy would require placement between the ribs which would be suboptimal. This was discussed with Dr. Luca Saucedo MD Abdomen/Pelvis CT 08/06/17 0000 Signed Impressions: Service Date/Time: Monday, August 07, 2017 02:34 - CONCLUSION: 1. Diffusely dilated small bowel extending to the ileostomy. There is a small volume of free fluid in the abdomen. 2. Abnormal airspace consolidation at the lung bases bilaterally with bilateral pleural effusions. 3. There is a open sacral decubitus wound extending to the adjacent coccyx and sacrum. Luca Torres MD Cholangiopancreatography MRI 07/15/17 0000 Signed Impressions: Service Date/Time: Saturday, July 15, 2017 15:02 - CONCLUSION: 1. Ascites with small bilateral pleural effusions. 2. Small contracted gallbladder without definite stones 3. No definite common duct stone. 4. Pancreas obscured by motion. Alfredo Lora MD FACR Liver Ultrasound 07/14/17 0000 Signed Impressions: Service Date/Time: July 16:45 - CONCLUSION: 1. Small volume ascites. 2. Bilateral pleural effusions. 3. Sludge within the gallbladder with a top normal thickness of the gallbladder wall. No sonographic evidence to suggest acute cholecystitis. Pierce Ospina Jr., MD Upper Extremity Ultrasound 06/23/17 0000 Signed Impressions: Service Date/Time: June 20:03 - CONCLUSION: Noncompressibility right cephalic vein and left basilic vein consistent with venous thrombosis Trav Hsieh MD Lower Extremity Ultrasound 06/23/17 0000 Signed Impressions: Service Date/Time: June 20:16 - CONCLUSION: Normal examination. No evidence DVT Trav Hsieh MD PE at Discharge GENERAL: NAD, A&Ox3, cachectic HEAD: Normocephalic. NECK: Supple, trachea midline. No lymphadenopathy. EYES: No scleral icterus. No injection or drainage. CARDIOVASCULAR: Regular rate and rhythm without murmurs, gallops, or rubs. RESPIRATORY: Breath sounds equal bilaterally. No accessory muscle use. GASTROINTESTINAL: abdomen is soft, non tender, non distended. MUSCULOSKELETAL: No cyanosis, or edema. Sacral ulcer has wound VAC in place. SKIN: Warm and dry. NEURO: No focal neurological deficitis. PSYCH: Flattened affect. Pt update on day of discharge Patient is more awake and alert and delirium has completely resolved. Patient and are both requesting to be discharge to rehabilitation. The patient still has a ureteral stent that needs to be retrieved given that the patient has had multiple episodes of Pseudomonas UTI. I explained to the patient's and the patient himself that while he has a stent in there is a risk of recurrent UTI, sepsis and if that happens. Both the patient and the are aware of the risks and would like to have the procedure done as an outpatient. I discussed the case with Dr. Tran who agrees with discharging the patient and have the patient follow-up with Dr. Pelayo from urology as an outpatient to have the stent removed. Pt Condition on Discharge: Stable Discharge Disposition: Discharge to SNF Discharge Time: > 30 minutes Discharge Instructions DIET: Follow Instructions for: As Tolerated, No Restrictions Activities you can perform: See Additionl Instruction Other Activity Instructions: As per PT instructions. OOB with assistance only. Follow up Referrals: PCP Follow-up - 1 Week SNF/MAG/ with [facility] - 2-3 Days needs ureteral stent removal New Medications: Cefepime Inj (Cefepime Inj) 2 Gm/100 Ml Bagp 2 GM IV Q12H for Infection for 4 Days, BAG 0 Refills End date 07/29/17 Digoxin (Digoxin) 0.125 Mg Tab 0.125 MG PO DAILY for rate control, #31 TAB Diltiazem (Cardizem) 60 Mg Tab 90 MG PO Q6HR for heart rate control, #180 TAB Famotidine (Famotidine) 20 Mg Tab 20 MG PO BID for GI protection, #62 TAB Hydrocodone/Acetaminophen (Hydrocodone-Acetamin 5-325 mg) 5 Mg-325 Mg Tablet 1 TAB PO Q6H PRN for pain 5-10, #20 TAB Quetiapine (Seroquel) 25 Mg Tab 25 MG PO HS for Agitation, #31 TAB Sodium Hypochlorite Topical (Dakins Solution Quarter Strength Topical) 0.125% Soln 500 ML TOPICAL MoWeFr for wound care, #1 BOTTLE Thiamine HCl (Gnp Vitamin B-1) 100 Mg Tab 100 MG PO DAILY for Nutritional Supplement, #31 TAB Tiotropium Inh (Spiriva Handihaler) 18 Mcg Cap 18 MCG INH DAILY for Shortness of Breath, #31 CAP 1 capsule = 18 mcg [Albuterol Neb] () 2.5 MG/3 ML NEBU 2.5 MG NEB Q2HR NEB PRN for DYSPNEA, #20 NEBULE [Budeson-Formot 160-4.5 Mg Inh] () 60 PUFF AERO 1 PUFF INH Q12HR for Shortness of Breath, #1 INHALER [Megestrol Liq] () 400 MG/10 ML SUSP 400 MG PO DAILY for Nutritional Supplement, #1 BOTTLE Continued Medications: Tamsulosin (Tamsulosin) 0.4 Mg Cap 0.4 MG PO HS for Manage Prostate Problems, #30 CAP 0 Refills Vilazodone (Viibryd) 40 Mg Tab 40 MG PO HS for Control Depression, #30 TAB 0 Refills Discontinued Medications: Hydrocodone-Acetaminophen (Lortab) 5-325 Mg Tab 1 TAB PO Q4-6H PRN for PAIN, #30 TAB 0 Refills Metoprolol Tartrate (Metoprolol Tartrate) 50 Mg Tab 50 MG PO BID, #60 TAB 0 Refills Chad Marrero MD Aug 26, 2017 17:55
[2017-08-26] MEDS: TAMSULOSIN HCL 0.4 MG CAP PO SCH (21:10)
[2017-08-26] MEDS: VIIBRYD 40 MG PO SCH (21:10)
[2017-08-26] MEDS: QUEtiapine FUMARATE 25 MG TAB PO SCH (21:10)
[2017-08-27 00:02] VITALS: BP 107/56; PULSE 93; RESP 19; TEMP 98.3; O2SAT 99
[2017-08-27 04:25] VITALS: BP 118/64; PULSE 84; RESP 20; TEMP 98.3; O2SAT 98
[2017-08-27] MEDS: DILTIAZEM HCL 60 MG TAB PO SCH (05:16)
[2017-08-27] MEDS: ACETAMINOPHEN/HYDROcodone 325 MG/5 MG TAB PO PRN (07:26)
[2017-08-27 07:36] LABS: POTASSIUM 4.3 MEQ/L (3.5-5.1)
[2017-08-27] MEDS: INSULIN ASPART SUPPLEMENTAL SCALE SQ SCH (08:00)
[2017-08-27 08:25] VITALS: BP 124/61; PULSE 97; RESP 20; TEMP 99.3; O2SAT 97
[2017-08-27] MEDS: DIGOXIN 0.125 MG TAB PO SCH (08:40)
[2017-08-27] MEDS: predniSONE 20 MG TAB PO SCH (08:40)
[2017-08-27] MEDS: THIAMINE HCL 100 MG TAB PO SCH (08:40)
[2017-08-27] MEDS: FAMOTIDINE 20 MG TAB PO SCH (08:40)
[2017-08-27] MEDS: BUDESONIDE-FORMOTEROL 160/4.5 MCG INHALER INH SCH (08:41)
[2017-08-27] MEDS: MEGESTROL ACETATE SUSP 400 MG/10 ML CUP PO SCH (08:41)
[2017-08-27] MEDS: TIOTROPIUM BROMIDE 18 MCG INH INH SCH (08:41)
[2017-08-27] MEDS: ENOXAPARIN SODIUM 40 MG/0.4 ML SYRINGE SQ SCH (08:41)
[2017-08-27 09:54] VITALS: O2SAT 98
[2017-08-27 11:50] VITALS: BP 120/69; PULSE 94; RESP 20; TEMP 99.1
== END 2017-08-27 12:03 | DRG 853 ==
LOC: N06B 09:06 → HIMW 06-18 04:18 → HCIS 07-14 20:29 → N04A 07-15 11:07 → N03B 08-08 16:54 → N03A 08-12 14:36 → HCIN 08-23 17:38
PROVIDERS: ADMIT Hospitalist; ATTEND Hospitalist
PROC: 30233N1 Transfusion of Nonautologous Red Blood Cells into Peripheral Vein, Percutaneous Approach (ICD-10-PCS; 2017-06-17)
PROC: 05HN33Z Insertion of Infusion Device into Left Internal Jugular Vein, Percutaneous Approach (ICD-10-PCS; 2017-06-18)
PROC: 5A2204Z Restoration of Cardiac Rhythm, Single (ICD-10-PCS; 2017-06-19)
PROC: 0DJD8ZZ Inspection of Lower Intestinal Tract, Via Natural or Artificial Opening Endoscopic (ICD-10-PCS; 2017-06-19)
PROC: 0DJ08ZZ Inspection of Upper Intestinal Tract, Via Natural or Artificial Opening Endoscopic (ICD-10-PCS; 2017-06-19)
PROC: 5A1955Z Respiratory Ventilation, Greater than 96 Consecutive Hours (ICD-10-PCS; 2017-06-20)
PROC: 0BH18EZ Insertion of Endotracheal Airway into Trachea, Via Natural or Artificial Opening Endoscopic (ICD-10-PCS; 2017-06-20)
PROC: 0DJD8ZZ Inspection of Lower Intestinal Tract, Via Natural or Artificial Opening Endoscopic (ICD-10-PCS; 2017-06-22)
PROC: 30233R1 Transfusion of Nonautologous Platelets into Peripheral Vein, Percutaneous Approach (ICD-10-PCS; 2017-06-28)
PROC: 0QB10ZZ Excision of Sacrum, Open Approach (ICD-10-PCS; principal; 2017-07-17 09:54)
PROC: 0DJ08ZZ Inspection of Upper Intestinal Tract, Via Natural or Artificial Opening Endoscopic (ICD-10-PCS; 2017-08-05)
PROC: 30233K1 Transfusion of Nonautologous Frozen Plasma into Peripheral Vein, Percutaneous Approach (ICD-10-PCS; 2017-08-09)
PROC: 0DH63UZ Insertion of Feeding Device into Stomach, Percutaneous Approach (ICD-10-PCS; 2017-08-12)
DX: A41.52 Sepsis due to Pseudomonas (principal); E43 Unspecified severe protein-calorie malnutrition; D65 Disseminated intravascular coagulation [defibrination syndrome]; R65.21 Severe sepsis with septic shock; J96.01 Acute respiratory failure with hypoxia; K72.00 Acute and subacute hepatic failure without coma; J69.0 Pneumonitis due to inhalation of food and vomit; J90 Pleural effusion, not elsewhere classified; A04.72 Enterocolitis due to Clostridium difficile, not specified as recurrent; K56.2 Volvulus; J44.0 Chronic obstructive pulmonary disease with (acute) lower respiratory infection; L89.154 Pressure ulcer of sacral region, stage 4; J15.1 Pneumonia due to Pseudomonas; N17.9 Acute kidney failure, unspecified; E87.0 Hyperosmolality and hypernatremia; E87.2 Acidosis; I82.621 Acute embolism and thrombosis of deep veins of right upper extremity; Z68.1 Body mass index [BMI] 19.9 or less, adult; J44.1 Chronic obstructive pulmonary disease with (acute) exacerbation; K56.7 Ileus, unspecified; N39.0 Urinary tract infection, site not specified; J98.11 Atelectasis; C19 Malignant neoplasm of rectosigmoid junction; C78.7 Secondary malignant neoplasm of liver and intrahepatic bile duct; K56.600 Partial intestinal obstruction, unspecified as to cause; B37.49 Other urogenital candidiasis; C78.02 Secondary malignant neoplasm of left lung; F05 Delirium due to known physiological condition; R64 Cachexia; I48.91 Unspecified atrial fibrillation; K44.9 Diaphragmatic hernia without obstruction or gangrene; K20.9 Esophagitis, unspecified; K29.50 Unspecified chronic gastritis without bleeding; A41.4 Sepsis due to anaerobes; E83.39 Other disorders of phosphorus metabolism; E83.42 Hypomagnesemia; E87.6 Hypokalemia; E86.0 Dehydration; E87.70 Fluid overload, unspecified; D64.9 Anemia, unspecified; F17.210 Nicotine dependence, cigarettes, uncomplicated; F32.9 Major depressive disorder, single episode, unspecified; F41.9 Anxiety disorder, unspecified; I10 Essential (primary) hypertension; T46.2X5A Adverse effect of other antidysrhythmic drugs, initial encounter; Y95 Nosocomial condition; R00.0 Tachycardia, unspecified; Z93.2 Ileostomy status; Z90.49 Acquired absence of other specified parts of digestive tract; I49.3 Ventricular premature depolarization; N40.0 Benign prostatic hyperplasia without lower urinary tract symptoms; R13.10 Dysphagia, unspecified; R62.7 Adult failure to thrive; Z85.048 Personal history of other malignant neoplasm of rectum, rectosigmoid junction, and anus; Z92.3 Personal history of irradiation; R73.9 Hyperglycemia, unspecified; R74.0 Nonspecific elevation of levels of transaminase and lactic acid dehydrogenase [LDH]
CPT/HCPCS: 31500; 36430; 36556; 36569; 36600; 36620; 49440; 70450; 71010; 71250; 74000; 74176; 74177; 74181; 76377; 76705; 76937; 76942; 80048; 80053; 80074; 80076; 80162; 80202; 80375; 81001; 81256; 82103; 82105; 82140; 82150; 82247; 82248; 82378; 82390; 82533; 82550; 82565; 82607; 82728; 82805; 82948; 82977; 83010; 83520; 83540; 83550; 83605; 83615; 83690; 83735; 83880; 84080; 84100; 84132; 84155; 84443; 84478; 84484; 85007; 85025; 85027; 85384; 85610; 85730; 86022; 86038; 86255; 86850; 86880; 86900; 86901; 86920; 86927; 87040; 87070; 87077; 87086; 87186; 87205; 87493; 87641; 88305; 88312; 92960; 93005; 93306; 93970; 94002; 94003; 94640; 94664; 94667; 94668; 99152; 99153; J1170; C9113; J0282; J0330; J0692; J0744; J0883; J1160; J1450; J1630; J1644; J1650; J1652; J1815; J1940; J2060; J2250; J2270; J2370; J2405; J2543; J2710; J2765; J2920; J2930; J2997; J3010; J3370; J3430; J3475; J3480; J7030; J7040; J7050; J7060; J7070; J7120; J7121; J7512; J7613; J7626; P9016; P9017; P9035; P9047; Q9963; Q9967